=== PATIENT | male | born 1960 | race Caucasian/White ===

== ENCOUNTER 2018-08-23 12:47 | Observation (INO) | payer OTHER ==
--- NOTE | 2018-08-23 14:07 | ED ---
General Adult HPI - General Chief complaint: Syncope Stated complaint: syncope Time Seen by Provider: 08/23/18 13:05 Source: patient, RN notes reviewed Mode of arrival: wheelchair Limitations: physical limitation - History of Present Illness Initial comments: This a 58-year-old male who presents emergency department with past medical history significant for severe sleep apnea and an previous episode of hypercapnia which involved an ICU admission. Patient states at that time he had a syncopal episode. Patient states today he had a syncopal episode. Patient also states he has diabetes hypertension high cholesterol. Patient states he got out of the shower today felt lightheaded and then went today living room to sit down but he did not make it he fell and hit the garbage can on the right side of his chest on the way down. Patient denies hitting his head or neck was watching the episode and agrees did not hit his head or neck. Patient states he has a slight area of tenderness on the right side of his chest but it's only when he palpates that area. Patient denies any chest pain palpitations difficulty breathing or shortness of breath prior to or after the event. Patient states currently he feels at his baseline. Patient denies any abdominal pain patient denies nausea vomiting diarrhea per patient denies any lightheadedness dizziness currently. Patient denies any headache patient denies numbness weakness. - Related Data Home Medications Medication Instructions Recorded Confirmed Albuterol Sulfate [Proair Hfa] 2 puff INHALATION RT-DAILY PRN 08/23/18 08/23/18 Aspirin EC [Ecotrin Low Dose] 81 mg PO DAILY 08/23/18 08/23/18 Cyclobenzaprine [Flexeril] 10 mg PO HS PRN 08/23/18 08/23/18 Enalapril [Vasotec] 20 mg PO BID 08/23/18 08/23/18 Fenofibrate [Lofibra] 160 mg PO DAILY 08/23/18 08/23/18 Fluticasone/Salmeterol [Advair 1 inhalation PO RT-BID 08/23/18 08/23/18 250-50 Diskus] HYDROcodone/APAP 7.5-325MG [[place] 1 tab PO Q6HR PRN 08/23/18 08/23/18 7.5-325] Hydrochlorothiazide [Hydrodiuril] 25 mg PO DAILY 08/23/18 08/23/18 Metoprolol Succinate (ER) [Toprol 100 mg PO HS 08/23/18 08/23/18 Xl] Pentoxifylline 400 mg PO TID PRN 08/23/18 08/23/18 Simvastatin [Zocor] 20 mg PO HS 08/23/18 08/23/18 Tamsulosin [Flomax] 0.4 mg PO DAILY 08/23/18 08/23/18 amLODIPine [Norvasc] 10 mg PO DAILY 08/23/18 08/23/18 diphenhydrAMINE [Benadryl] 50 mg PO DAILY PRN 08/23/18 08/23/18 glipiZIDE [Glucotrol] 5 mg PO DAILY 08/23/18 08/23/18 hydrALAZINE HCL [Apresoline] 50 mg PO DAILY 08/23/18 08/23/18 metFORMIN HCL 1,000 mg PO BID 08/23/18 08/23/18 rOPINIRole HCL [Requip] 1 mg PO HS 08/23/18 08/23/18 Allergies Allergy/AdvReac Type Severity Reaction Status Date / Time No Known Allergies Allergy Verified 08/23/18 13:50 Review of Systems ROS Statement: Those systems with pertinent positive or pertinent negative responses have been documented in the HPI. ROS Other: All systems not noted in ROS Statement are negative. Past Medical History Past Medical History: Asthma, COPD, Diabetes Mellitus, Hyperlipidemia, Hypertension, Prostate Disorder Additional Past Medical History / Comment(s): sleep apnea History of Any Multi-Drug Resistant Organisms: None Reported Additional Past Surgical History / Comment(s): hyrocelectomy Past Psychological History: No Psychological Hx Reported Smoking Status: Former smoker Past Alcohol Use History: Occasional Past Drug Use History: None Reported, Marijuana General Exam - General Exam Comments Initial Comments: GENERAL: Patient is well-developed and well-nourished. Patient is nontoxic and well- hydrated and is in mild distress. ENT: Neck is soft and supple. No significant lymphadenopathy is noted. Oropharynx is clear. Moist mucous membranes. Neck has full range of motion without eliciting any pain. EYES: The sclera were anicteric and conjunctiva were pink and moist. Extraocular movements were intact and pupils were equal round and reactive to light. Eyelids were unremarkable. PULMONARY: Unlabored respirations. Good breath sounds bilaterally. No audible rales rhonchi or wheezing was noted. CARDIOVASCULAR: There is a regular rate and rhythm without any murmurs gallops or rubs. ABDOMEN: Soft and nontender with normal bowel sounds. No palpable organomegaly was noted. There is no palpable pulsatile mass. Patient is morbidly obese. SKIN: Skin is clear with no lesions or rashes and otherwise unremarkable. NEUROLOGIC: Patient is alert and oriented x3. Cranial nerves II through XII are grossly intact. Motor and sensory are also intact. Normal speech, volume and content. Symmetrical smile. MUSCULOSKELETAL: Normal extremities with adequate strength and full range of motion. No lower extremity swelling or edema. No calf tenderness. LYMPHATICS: No significant lymphadenopathy is noted PSYCHIATRIC: Normal psychiatric evaluation. Limitations: physical limitation Course Vital Signs 08/23/18 08/23/18 08/23/18 13:05 14:00 14:11 Temperature 98.1 F Pulse Rate 98 95 Pulse Rate [ 98 Lamp Wirer ] Respiratory 18 12 Rate Blood Pressure 149/87 167/82 Blood Pressure [Left Arm Sitting] Blood Pressure [Left Arm Standing] Blood Pressure 139/81 [Left Arm Supine] O2 Sat by Pulse 94 L 97 Oximetry 08/23/18 08/23/18 08/23/18 14:15 15:30 16:00 Temperature Pulse Rate 92 89 Pulse Rate [ 99 Lamp Wirer ] Respiratory 18 22 Rate Blood Pressure 139/75 148/79 Blood Pressure 147/78 [Left Arm Sitting] Blood Pressure 154/76 [Left Arm Standing] Blood Pressure [Left Arm Supine] O2 Sat by Pulse 95 95 Oximetry 08/23/18 08/23/18 16:30 17:00 Temperature Pulse Rate 98 84 Pulse Rate [ Lamp Wirer ] Respiratory 22 20 Rate Blood Pressure 139/83 138/84 Blood Pressure [Left Arm Sitting] Blood Pressure [Left Arm Standing] Blood Pressure [Left Arm Supine] O2 Sat by Pulse 98 96 Oximetry Medical Decision Making - Medical Decision Making EKG shows a sinus rhythm at a rate of 94 bpm [place] interval is 184 QRS is 144 QT interval 368 QTC is 460. Patient's EKG is of poor quality EKG however there is no obvious signs of ST segment elevation. Patient does have a right bundle tasha block. Chest x-ray shows no acute normalities. I spoke with Dr. Chen because the patient's risk factors and syncopal episode we decided to admit the patient overnight for observation. - Lab Data Result diagrams: 08/23/18 14:00 08/23/18 14:00 Lab Results 08/23/18 08/23/18 08/23/18 Range/Units 14:00 14:00 14:00 WBC 9.0 (3.8-10.6) k/uL RBC 5.45 (4.30-5.90) m/uL Hgb 14.3 (13.0-17.5) gm/dL Hct 44.4 (39.0-53.0) % MCV 81.6 (80.0-100.0) fL MCH 26.2 (25.0-35.0) pg MCHC 32.1 (31.0-37.0) g/dL RDW 13.8 (11.5-15.5) % Plt Count 330 (150-450) k/uL Neutrophils % 76 % Lymphocytes % 14 % Monocytes % 5 % Eosinophils % 3 % Basophils % 0 % Neutrophils # 6.9 (1.3-7.7) k/uL Lymphocytes # 1.3 (1.0-4.8) k/uL Monocytes # 0.4 (0-1.0) k/uL Eosinophils # 0.3 (0-0.7) k/uL Basophils # 0.0 (0-0.2) k/uL PT (9.0-12.0) sec INR (<1.2) APTT (22.0-30.0) sec Sample Site ABG pH (7.35-7.45) ABG pCO2 (35-45) mmHg ABG pO2 (83-108) mmHg ABG HCO3 (21-25) mmol/L ABG Total CO2 (19-24) mmol/L ABG O2 Saturation (94-97) % ABG Base Excess mmol/L Luisito Test FiO2 % Sodium 140 (137-145) mmol/L Potassium 3.8 (3.5-5.1) mmol/L Chloride 100 (98-107) mmol/L Carbon Dioxide 29 (22-30) mmol/L Anion Gap 11 mmol/L BUN 17 (9-20) mg/dL Creatinine 0.79 (0.66-1.25) mg/dL Est GFR (CKD-EPI)AfAm >90 (>60 ml/min/1.73 sqM) Est GFR (CKD-EPI)NonAf >90 (>60 ml/min/1.73 sqM) Glucose 167 H (74-99) mg/dL Calcium 9.4 (8.4-10.2) mg/dL Magnesium 1.7 (1.6-2.3) mg/dL Total Bilirubin 0.5 (0.2-1.3) mg/dL AST 23 (17-59) U/L ALT 40 (21-72) U/L Alkaline Phosphatase 50 (38-126) U/L Total Creatine Kinase 61 (55-170) U/L CK-MB (CK-2) 0.3 (0.0-2.4) ng/mL CK-MB (CK-2) Rel Index 0.5 Troponin I <0.012 (0.000-0.034) ng/mL Total Protein 6.8 (6.3-8.2) g/dL Albumin 4.1 (3.5-5.0) g/dL Urine Color Urine Appearance (Clear) Urine pH (5.0-8.0) Ur Specific [place] (1.001-1.035) Urine Protein (Negative) Urine Glucose (UA) (Negative) Urine Ketones (Negative) Urine Blood (Negative) Urine Nitrite (Negative) Urine Bilirubin (Negative) Urine Urobilinogen (<2.0) mg/dL Ur Leukocyte Esterase (Negative) 08/23/18 08/23/18 08/23/18 Range/Units 14:00 14:00 14:48 WBC (3.8-10.6) k/uL RBC (4.30-5.90) m/uL Hgb (13.0-17.5) gm/dL Hct (39.0-53.0) % MCV (80.0-100.0) fL MCH (25.0-35.0) pg MCHC (31.0-37.0) g/dL RDW (11.5-15.5) % Plt Count (150-450) k/uL Neutrophils % % Lymphocytes % % Monocytes % % Eosinophils % % Basophils % % Neutrophils # (1.3-7.7) k/uL Lymphocytes # (1.0-4.8) k/uL Monocytes # (0-1.0) k/uL Eosinophils # (0-0.7) k/uL Basophils # (0-0.2) k/uL PT 9.5 (9.0-12.0) sec INR 0.9 (<1.2) APTT 23.1 (22.0-30.0) sec Sample Site RRA ABG pH 7.40 (7.35-7.45) ABG pCO2 51 H (35-45) mmHg ABG pO2 94 (83-108) mmHg ABG HCO3 32 H (21-25) mmol/L ABG Total CO2 33 H (19-24) mmol/L ABG O2 Saturation 96.3 (94-97) % ABG Base Excess 6.9 mmol/L Luisito Test Yes FiO2 32 % Sodium (137-145) mmol/L Potassium (3.5-5.1) mmol/L Chloride (98-107) mmol/L Carbon Dioxide (22-30) mmol/L Anion Gap mmol/L BUN (9-20) mg/dL Creatinine (0.66-1.25) mg/dL Est GFR (CKD-EPI)AfAm (>60 ml/min/1.73 sqM) Est GFR (CKD-EPI)NonAf (>60 ml/min/1.73 sqM) Glucose (74-99) mg/dL Calcium (8.4-10.2) mg/dL Magnesium (1.6-2.3) mg/dL Total Bilirubin (0.2-1.3) mg/dL AST (17-59) U/L ALT (21-72) U/L Alkaline Phosphatase (38-126) U/L Total Creatine Kinase (55-170) U/L CK-MB (CK-2) (0.0-2.4) ng/mL CK-MB (CK-2) Rel Index Troponin I (0.000-0.034) ng/mL Total Protein (6.3-8.2) g/dL Albumin (3.5-5.0) g/dL Urine Color Yellow Urine Appearance Clear (Clear) Urine pH 5.5 (5.0-8.0) Ur Specific [place] 1.014 (1.001-1.035) Urine Protein Negative (Negative) Urine Glucose (UA) Negative (Negative) Urine Ketones Negative (Negative) Urine Blood Negative (Negative) Urine Nitrite Negative (Negative) Urine Bilirubin Negative (Negative) Urine Urobilinogen <2.0 (<2.0) mg/dL Ur Leukocyte Esterase Negative (Negative) Disposition Clinical Impression: Syncope and collapse Disposition: ADMITTED IP TO THIS HOSP Referrals: Sead Schneider MD [Primary Care Provider] - 1-2 days Time of Disposition: 17:55
[2018-08-23 14:18] LABS: Basophils % (A) 0 %; Eosinophils # (A) 0.3 k/uL (0-0.7); Eosinophils % (A) 3 %; HCT 44.4 % (39.0-53.0); HGB 14.3 gm/dL (13.0-17.5); Lymphocytes # (A) 1.3 k/uL (1.0-4.8); Lymphocytes % (A) 14 %; MCH 26.2 pg (25.0-35.0); MCHC 32.1 g/dL (31.0-37.0); MCV 81.6 fL (80.0-100.0); Mean Platelet Volume 5.6; Monocytes # (A) 0.4 k/uL (0-1.0); Monocytes % (A) 5 %; Neutrophils # (A) 6.9 k/uL (1.3-7.7); Neutrophils % (A) 76 %; Platelet Count 330 k/uL (150-450); RBC 5.45 m/uL (4.30-5.90); RDW 13.8 % (11.5-15.5)
[2018-08-23 14:28] LABS: Appearance,Urine Clear (Clear); Bilirubin,Urine Negative (Negative); Blood,Urine Negative (Negative); Color,Urine Yellow; Glucose,Urine (UA) Negative (Negative); Ketones,Urine Negative (Negative); Leukocyte Esterase,Urine Negative (Negative); Nitrite,Urine Negative (Negative); PH, Urine 5.5 (5.0-8.0); Protein,Urine Negative (Negative); Specific Gravity,Urine 1.014 (1.001-1.035); Urobilinogen,Urine <2.0 mg/dL (<2.0)
[2018-08-23 14:29] LABS: ALT 40 U/L (21-72); AST 23 U/L (17-59); Albumin 4.1 g/dL (3.5-5.0); Alkaline Phosphatase 50 U/L (38-126); Anion Gap 11 mmol/L; Blood Urea Nitrogen 17 mg/dL (9-20); Calcium 9.4 mg/dL (8.4-10.2); Carbon Dioxide 29 mmol/L (22-30); Chloride 100 mmol/L (98-107); Glucose 167 mg/dL (74-99); Magnesium 1.7 mg/dL (1.6-2.3); Potassium 3.8 mmol/L (3.5-5.1); Sodium 140 mmol/L (137-145); Total Bilirubin 0.5 mg/dL (0.2-1.3); Total Protein 6.8 g/dL (6.3-8.2)
[2018-08-23 14:34] LABS: INR 0.9 (<1.2); Partial Thromboplastin Time 23.1 sec (22.0-30.0); Prothrombin Time 9.5 sec (9.0-12.0)
--- NOTE | 2018-08-23 14:49 | XR ---
EXAMINATION TYPE: XR chest 2V DATE OF EXAM: 08/23/2018 COMPARISON: NONE HISTORY: Syncope TECHNIQUE: Frontal and lateral views of the chest are obtained. FINDINGS: Patient is rotated. There are cardiac leads. Eventration of the right hemidiaphragm noted. There is no focal air space opacity, pleural effusion, or pneumothorax seen. The cardiac silhouette size is within normal limits. The osseous structures are intact. IMPRESSION: No acute cardiopulmonary process.
[2018-08-23 14:56] LABS: ABG Base Excess 6.9 mmol/L; ABG HCO3 32 mmol/L (21-25); ABG Oxygen Saturation 96.3 % (94-97); ABG PCO2 51 mmHg (35-45); ABG PO2 94 mmHg (83-108); ABG TCO2 33 mmol/L (19-24)
[2018-08-23 15:22] LABS: Creatine Kinase 61 U/L (55-170)
[2018-08-23 15:35] LABS: Creatine Kinase MB 0.3 ng/mL (0.0-2.4); Troponin I <0.012 ng/mL (0.000-0.034)
[2018-08-23] MEDS ORDERED: NITROGLYCERIN SL TABS 0.4 MG TAB SUBLINGUAL PRN (17:56)
[2018-08-23 20:45] LABS: Glucose,Whole Blood 160 mg/dL (75-99)
[2018-08-23 21:47] LABS: Creatine Kinase 72 U/L (55-170)
[2018-08-23] MEDS ORDERED: CYCLOBENZAPRINE 10 MG TAB PO PRN (21:55)
[2018-08-23] MEDS ORDERED: diphenhydrAMINE 25 MG CAP PO PRN (21:55)
[2018-08-23] MEDS ORDERED: PENTOXIFYLLINE 400 MG TABLET.ER PO PRN (21:55)
[2018-08-23] MEDS ORDERED: ALBUTEROL NEBULIZED 2.5 MG/3 ML INHALATION PRN (21:55)
[2018-08-23] MEDS ORDERED: HYDROcodone/APAP 7.5-325MG 1 EACH TAB PO PRN (21:55)
[2018-08-23 22:00] LABS: Creatine Kinase MB 0.3 ng/mL (0.0-2.4); Troponin I <0.012 ng/mL (0.000-0.034)
[2018-08-23] MEDS: METOPROLOL SUCCINATE (ER) 50 MG TAB.ER.24H PO SCH (23:43)
[2018-08-23] MEDS: LISINOPRIL 20 MG TAB PO SCH (23:43)
[2018-08-23] MEDS: ATORVASTATIN 10 MG TAB PO SCH (23:43)
[2018-08-24 02:42] LABS: Creatine Kinase 57 U/L (55-170)
[2018-08-24 02:56] LABS: Creatine Kinase MB <0.2 ng/mL (0.0-2.4); Troponin I <0.012 ng/mL (0.000-0.034)
[2018-08-24 04:11] LABS: Hemoglobin A1C 7.5 % (4.0-6.0)
[2018-08-24 06:27] LABS: Basophils % (A) 1 %; Eosinophils # (A) 0.4 k/uL (0-0.7); Eosinophils % (A) 5 %; HCT 42.9 % (39.0-53.0); HGB 13.9 gm/dL (13.0-17.5); Lymphocytes # (A) 1.4 k/uL (1.0-4.8); Lymphocytes % (A) 19 %; MCH 26.5 pg (25.0-35.0); MCHC 32.3 g/dL (31.0-37.0); MCV 82.2 fL (80.0-100.0); Mean Platelet Volume 5.5; Monocytes # (A) 0.5 k/uL (0-1.0); Monocytes % (A) 7 %; Neutrophils % (A) 67 %; Platelet Count 342 k/uL (150-450); RBC 5.22 m/uL (4.30-5.90); RDW 13.9 % (11.5-15.5); WBC 7.5 k/uL (3.8-10.6)
[2018-08-24 06:32] LABS: Anion Gap 8 mmol/L; Blood Urea Nitrogen 20 mg/dL (9-20); Calcium 9.2 mg/dL (8.4-10.2); Carbon Dioxide 28 mmol/L (22-30); Chloride 102 mmol/L (98-107); Cholesterol 139 mg/dL (<200); Glucose 133 mg/dL (74-99); HDL Cholesterol 43 mg/dL (40-60); LDL Cholesterol,Calculated 71 mg/dL (0-99); Potassium 4.2 mmol/L (3.5-5.1); Sodium 138 mmol/L (137-145); Triglycerides 123 mg/dL (<150)
[2018-08-24] MEDS: SYMBICORT 80-4.5 MCG INHALER INHALATION SCH ×2 (07:29→18:48)
[2018-08-24 07:55] LABS: Glucose,Whole Blood 129 mg/dL (75-99)
--- NOTE | 2018-08-24 09:23 | HP ---
HISTORY AND PHYSICAL DATE OF SERVICE: 08/23/2018 CHIEF COMPLAINTS: Syncope. HISTORY OF PRESENT ILLNESS: This is a 58-year-old gentleman with a past medical history of multiple medical problems including sleep apnea, history of asthma, COPD, diabetes, hypertension, hyperlipidemia, history of prostate disorder being followed by Dr. Seda Schneider in the outpatient setting, also seeing Dr. Cordova. Patient uses CPAP at 10 at night. The patient apparently had a sleep study previously. The patient is not feeling well over the past several days. Patient is having weakness, tiredness and patient also had a previous admission to ICU apparently because of escalated sleep apnea. Today, the patient had a shower guarded shower which is not hot and patient felt lightheaded, went down in the living room and the patient was taken to [facility], admitted for further evaluation and treatment. There is no history of any fever, rigors. history of seizures. No history of any chest pain, palpitations, hematochezia or melena. The patient also complaining of some chest discomfort. PAST MEDICAL HISTORY: Asthma, COPD, diabetes, hypertension, hyperlipidemia, prostate disorder, sleep apnea. HOME MEDICATIONS: 1. Hydralazine 50 mg p.o. daily. 2. HydroDIURIL 25 mg daily. 3. Glucotrol 5 mg. p.o. daily. 4. Norvasc 10 mg. 5. Lofibra 160 mg p.o. daily. 6. Lasix 20 mg b.i.d. 7. Ecotrin 81 mg daily. 8. Advair 250 one puff b.i.d. 9. Flexeril 10 mg q.h.s. 10.ProAir 2 puffs daily p.r.n. 11.Requip 1 mg q.h.s. 12.Pentoxifylline 400 mg t.i.d. p.r.n. 13.Metformin 1000 mg p.o. b.i.d. 14.Benadryl 50 mg daily p.r.n. 15.Flomax 0.4 daily. 16.Zocor 20 mg q.h.s. 17.Toprol-XL 200 mg daily. 18.[place] 7.5 q.6 p.r.n. ALLERGIES: None. FAMILY HISTORY: History of cancer, eye disorder, skin cancer. SOCIAL HISTORY: Alcohol, THC. Previous history of smoking. REVIEW OF SYSTEMS: ENT: No diminished hearing, diminished vision. CARDIOVASCULAR SYSTEM: As mentioned earlier. RESPIRATORY: As mentioned earlier. GI: No nausea. : No dysuria. NERVOUS SYSTEM: No numbness or weakness. ALLERGY/IMMUNOLOGY: No asthma or hayfever. MUSCULOSKELETAL: As mentioned earlier. HEMATOLOGY: No history of anemia. ENDOCRINE: Diabetes. CONSTITUTIONAL: As mentioned earlier. RHEUMATOLOGY: Negative. HEMATOLOGY: Negative. PSYCHIATRY: As mentioned earlier. PHYSICAL EXAM: Patient is alert and oriented x3. Pulse 84, blood pressure 168/89, respiration 18, temperature 98.2, pulse ox 98% on room air. HEENT: Conjunctivae normal, oral mucosa moist. CARDIOVASCULAR: S1, S2, muffled. RESPIRATORY: Breath sounds diminished in the bases, a few scattered rhonchi. No crackles. ABDOMEN: Soft, nontender, obese. No mass palpable. LEGS: No edema. No swelling. NERVOUS SYSTEM: Higher functions as mentioned earlier, moves all 4 limbs, no focal motor deficits. LYMPHATICS: No lymph node enlargement in the neck or axillae. SKIN: No ulcer, rash, no bleeding. JOINTS: No active deforming arthropathy. LABS: CBC within normal limits. ABGs, pH of 7.4 and glucose 160. ASSESSMENT: 1. Syncope for evaluation, rule out cardiac arrhythmia. 2. Sleep apnea on CPAP. 3. History of asthma, chronic obstructive pulmonary disease. 4. Diabetes mellitus type 2. 5. Hypertension. 6. Hyperlipidemia. 7. Prostate disorder. 8. History of herniated disc. 9. History of hernia repair. 10.History of worsening nicotine dependence. 11.History of THC. 12.Obesity with body mass index 45.6. RECOMMENDATION: In this 58-year-old gentleman who presented with multiple complex medical issues, will monitor the patient closely, continue with the current management and symptomatic treatment. I would recommend consult with Dr. Hawk and as well as Cardiology. Otherwise, will resume the home medications. Patient has history as mentioned earlier. The prognosis guarded because of multiple complex medical issues. Further recommendations to follow. A copy will be forwarded to Dr. Seda Schneider who is the primary physician. MMODL / IJN: [id number] /
[2018-08-24] MEDS: ASPIRIN 325 MG TAB PO SCH (10:57)
[2018-08-24] MEDS: TAMSULOSIN 0.4 MG CAP.ER.24H PO SCH (10:57)
[2018-08-24] MEDS: INSULIN ASPART (NovoLOG) 100 UNIT/ML VIAL SQ SCH ×4 (10:58→20:27)
[2018-08-24] MEDS: glipiZIDE 5 MG TAB PO SCH (10:58)
[2018-08-24] MEDS: amLODIPine 10 MG TAB PO SCH (10:58)
[2018-08-24] MEDS: HYDROCHLOROTHIAZIDE 25 MG TAB PO SCH (10:58)
[2018-08-24] MEDS: LISINOPRIL 20 MG TAB PO SCH ×2 (10:58→20:27)
[2018-08-24] MEDS: FENOFIBRATE 160 MG TAB PO SCH (10:58)
[2018-08-24] MEDS: hydrALAZINE HCL 50 MG TAB PO SCH (10:58)
[2018-08-24] MEDS: metFORMIN 500 MG TAB PO SCH ×2 (11:04→20:27)
[2018-08-24 11:42] LABS: Glucose,Whole Blood 138 mg/dL (75-99)
--- NOTE | 2018-08-24 12:15 | CONS ---
CONSULTATION Mr. Marquez is a 58-year-old gentleman who is seen for evaluation of syncope. This patient gives a history that he has a history of severe sleep apnea and had a prior episode of hypercapnia which involves ICU admission. The patient gives a history that he went to the shower and after he came out he felt lightheaded. He went to the living room and tried to sit down but did not make it and he fell and he hit the garbage can. The patient did not have any nausea, vomiting, or palpitations. Subsequently patient was brought to the emergency room. In the emergency room, patient's vital signs were stable. The patient's initial EKG shows right bundle branch block pattern. No orthostatic hypotension is noted. Cardiac enzymes are negative so far. There is no prior history of myocardial infarction. He has a history of hypertension and hyperlipidemia. PAST MEDICAL HISTORY: Past medical history includes history of COPD, diabetes, hyperlipidemia, hypertension, and history of prostate disorder. HOME MEDICATIONS: Patient home medications include Vasotec 20 mg b.i.d., Lofibra 160 mg daily, Advair, hydrochlorothiazide 25 mg daily, pentoxifylline 400 mg t.i.d., Zocor 20 mg daily, hydralazine 50 mg daily, metformin 1000 mg b.i.d. and Requip 1 mg at bedtime and Benadryl p.r.n. REVIEW OF THE SYSTEM: Review of the systems is otherwise unremarkable. PHYSICAL EXAMINATION: Physical examination at present reveals a 58-year-old obesely built gentleman who does not appear to be in any acute distress. In the emergency room, patient's blood pressure was 140/87 mmHg. His blood pressure now is 143/73 mmHg. Head/ENT examination is negative. Neck is supple. There is no increase in jugular venous pressure. Both the carotid pulses are felt. There is no bruit. Chest is symmetrical. HEART: The PMI is not felt. First and second heart sounds are heard. The second heart sound is split. Lungs are clinically clear to auscultation and percussion. Abdomen is soft. Liver and spleen are not enlarged. Bowel sounds are heard. EXTREMITIES: There is 1+ trace edema. The patient's PTT was normal. Arterial blood gases shows pH of 7.40, pCO2 is 51, and pO2 is 93. Troponins are negative. Patient's cholesterol is 139 with LDL level of 71. IMPRESSION: Syncope, exact etiology undetermined. Patient has evidence of underlying right bundle branch block, intermittent high-degree block needs to be excluded. So far no dysrhythmias are noted. We will monitor the patient for 24 hours. Echo and Doppler study will be done. If no arrhythmias are noted, patient can be discharged home and we will make arrangements for the patient to have a loop monitor as an outpatient to document any serious arrhythmia. MMODL / IJN: [id number] /
--- NOTE | 2018-08-24 12:45 | ECHOF ---
Referral Reason:syncope MEASUREMENTS -------- HEIGHT: 172.7 cm WEIGHT: 136.1 kg BP: RVIDd: 3.5 cm (< 3.3) IVSd: 1.4 cm (0.6 - 1.1) LVIDd: 4.3 cm (3.9 - 5.3) LVPWd: 1.8 cm (0.6 - 1.1) IVSs: 1.9 cm LVIDs: 2.9 cm LVPWs: 2.5 cm Ao Diam: 3.4 cm (2.0 - 3.7) AV Cusp: 2.5 cm (1.5 - 2.6) LA Diam: 3.2 cm (2.7 - 3.8) MV EXCURSION: 14.317 mm (> 18.000) MV EF SLOPE: 68 mm/s (70 - 150) EPSS: 0.8 cm MV E Jason: 0.85 m/s MV DecT: 155 ms MV A Jason: 1.05 m/s MV E/A Ratio: 0.80 RAP: 5.00 mmHg RVSP: 7.91 mmHg FINDINGS -------- Sinus rhythm. This was a technically difficult study with suboptimal views. The left ventricular size is normal. There is moderate concentric left ventricular hypertrophy. O verall left ventricular systolic function is normal with, an EF between 55 - 60 %. The right ventricle is mildly enlarged. The left atrium is normal in size. The right atrium is normal in size. Lumason used The aortic valve is trileaflet and appears structurally normal. The mitral valve leaflets are mildly thickened. Mild mitral annular calcification present. Mild m itral regurgitation is present. Mild tricuspid regurgitation present. The right ventricular systolic pressure, as measured by Doppl er, is 7.91mmHg. Pulmonic valve appears structurally normal. The aortic root size is normal. IVC Not well visulized. The pericardium is normal. CONCLUSIONS -------- 1. Sinus rhythm. 2. This was a technically difficult study with suboptimal views. 3. The left ventricular size is normal. 4. There is moderate concentric left ventricular hypertrophy. 5. Overall left ventricular systolic function is normal with, an EF between 55 - 60 %. 6. The right ventricle is mildly enlarged. 7. The left atrium is normal in size. 8. The right atrium is normal in size. 9. Lumason used 10. The aortic valve is trileaflet and appears structurally normal. 11. The mitral valve leaflets are mildly thickened. 12. Mild mitral annular calcification present. 13. Mild mitral regurgitation is present. 14. Mild tricuspid regurgitation present. 15. The right ventricular systolic pressure, as measured by Doppler, is 7.91mmHg. 16. Pulmonic valve appears structurally normal. 17. The aortic root size is normal. 18. IVC Not well visulized. 19. The pericardium is normal. DENTAL FLOSS PACKER: Vandana De Jesus RDCS
--- NOTE | 2018-08-24 14:53 | P.CNPUL ---
History of Present Illness Consult date: 08/24/18 Requesting physician: Nai Mcmahan Reason for consult: other (syncope) Chief complaint: passing out History of present illness: this is a 58-year-old white male with history of asthma, obstructive sleep apnea syndrome, benign essential hypertension, hypercholesterolemia, type 2 diabetes,dyslipidemia,restless leg syndrome,patient had a sudden episode of syncope/passing out as he was walking out of the bathroom yesterday. No warning signs, no chest pain, no palpitations, no headache, no blurred vision, no dizziness, patient walked out of the bathroom, felt lightheaded, and apparently fell down in the living room. Hit the garbage can on the right side of the chest, no other injuries. Loss of consciousness was very brief supposedly less than a minute. Patient denies any chest pain denies any shortness of breath, and he had actually no active pulmonary symptoms except for occasional cough and congestion related to his underlying asthma. Patient had no loss of control of bowel or urine. And according to the there was no evidence of any seizure activity. Patient was seen in the ER,workup so far included CBC and basic metabolic profile which came back relatively normal.chest x-ray was normal.EKG showed sinus rhythm and right bundle branch block pattern.cardiac panel was normalechocardiogram was basically normal and no evidence of LV dysfunction, no evidence of pulmonary hypertension, no evidence of significant valvular heart disease.seen by cardiology, raised the patient concern about intermittent high degree block, recommended 24 hour monitor and if remains normal planning a loop monitor on outpatient basis. Again from the pulmonary perspective patient has no active pulmonary symptoms whatsoever at this point. Patient does have occasional cough which is chronic. Review of Systems 14 point review of systems were obtained, please refer to HPI, otherwise remaining systems are negative. Past Medical History Past Medical History: Asthma, COPD, Diabetes Mellitus, Hyperlipidemia, Hypertension, Prostate Disorder, Sleep Apnea/CPAP/BIPAP Additional Past Medical History / Comment(s): sleep apnea uses cpap machine, herniated disc-has had injections, past stress test pt stated was wnl, had a pne vaccine approx 3 years ago , check writer unable to verify date at time of this admit. History of Any Multi-Drug Resistant Organisms: None Reported Past Surgical History: Hernia Repair Additional Past Surgical History / Comment(s): hydrocelectomy, vasectomy, colonoscopy/polypectomy-benign. umbilical hernia repair, injections for herniated disc. Past Anesthesia/Blood Transfusion Reactions: No Reported Reaction Additional Past Anesthesia/Blood Transfusion Reaction / Comment(s): clausterphobia. pt stated has never had a blood transfusion Past Psychological History: No Psychological Hx Reported Smoking Status: Former smoker Past Alcohol Use History: Occasional Additional Past Alcohol Use History / Comment(s): approx 2008 briefly smoked the occ cigar. pt has a rare drink Past Drug Use History: Marijuana Additional Drug Use History / Comment(s): approx every 3 months - Past Family History Mother Family Medical History: Cancer, Eye Disorder Additional Family Medical History / Comment(s): skin cancer, macular degeneration Father Family Medical History: Coronary Artery Disease (CAD), Dementia Additional Family Medical History / Comment(s): cabg, stents, uti/sepsis Medications and Allergies Home Medications Medication Instructions Recorded Confirmed Type Albuterol Sulfate [Proair Hfa] 2 puff INHALATION RT-DAILY PRN 08/23/18 08/23/18 History Aspirin EC [Ecotrin Low Dose] 81 mg PO DAILY 08/23/18 08/23/18 History Cyclobenzaprine [Flexeril] 10 mg PO HS PRN 08/23/18 08/23/18 History Enalapril [Vasotec] 20 mg PO BID 08/23/18 08/23/18 History Fenofibrate [Lofibra] 160 mg PO DAILY 08/23/18 08/23/18 History Fluticasone/Salmeterol [Advair 1 inhalation PO RT-BID 08/23/18 08/23/18 History 250-50 Diskus] HYDROcodone/APAP 7.5-325MG [Gordon 1 tab PO Q6HR PRN 08/23/18 08/23/18 History 7.5-325] Hydrochlorothiazide [Hydrodiuril] 25 mg PO DAILY 08/23/18 08/23/18 History Metoprolol Succinate (ER) [Toprol 100 mg PO HS 08/23/18 08/23/18 History Xl] Pentoxifylline 400 mg PO TID PRN 08/23/18 08/23/18 History Simvastatin [Zocor] 20 mg PO HS 08/23/18 08/23/18 History Tamsulosin [Flomax] 0.4 mg PO DAILY 08/23/18 08/23/18 History amLODIPine [Norvasc] 10 mg PO DAILY 08/23/18 08/23/18 History diphenhydrAMINE [Benadryl] 50 mg PO DAILY PRN 08/23/18 08/23/18 History glipiZIDE [Glucotrol] 5 mg PO DAILY 08/23/18 08/23/18 History hydrALAZINE HCL [Apresoline] 50 mg PO DAILY 08/23/18 08/23/18 History metFORMIN HCL 1,000 mg PO BID 08/23/18 08/23/18 History rOPINIRole HCL [Requip] 1 mg PO HS 08/23/18 08/23/18 History Allergies Allergy/AdvReac Type Severity Reaction Status Date / Time No Known Allergies Allergy Verified 08/23/18 13:50 Physical Exam Vitals: Vital Signs Temp Pulse Pulse Pulse Pulse Pulse Pulse 08/24/18 11:57 98.2 F 80 76 77 08/24/18 07:40 98.2 F 76 08/24/18 07:28 84 08/24/18 07:12 80 08/24/18 04:00 80 77 76 08/24/18 03:30 08/24/18 00:00 08/23/18 23:40 98.6 F 84 08/23/18 20:00 08/23/18 18:50 98.2 F 83 08/23/18 18:00 97.8 F 79 08/23/18 17:30 81 08/23/18 17:00 84 08/23/18 16:30 98 08/23/18 16:00 89 08/23/18 15:30 92 Resp BP BP BP BP BP Pulse Ox 08/24/18 11:57 18 128/78 125/76 147/80 93 L 08/24/18 07:40 18 143/73 95 08/24/18 07:28 08/24/18 07:12 08/24/18 04:00 18 166/94 150/77 170/103 93 L 08/24/18 03:30 18 08/24/18 00:00 18 08/23/18 23:40 18 168/89 92 L 08/23/18 20:00 18 08/23/18 18:50 18 179/87 96 08/23/18 18:00 18 152/74 95 08/23/18 17:30 150/79 95 08/23/18 17:00 20 138/84 96 08/23/18 16:30 22 139/83 98 08/23/18 16:00 22 148/79 95 08/23/18 15:30 18 139/75 95 Intake and Output 08/23/18 08/24/18 08/24/18 22:59 06:59 14:59 Intake Total 218 Balance 218 Intake: Oral 118 Other 100 Other: # Voids 2 Physical Exam: Revealed 58-year-old white male in no distress.on room air. Head: Atraumatic, normocephalic. HEENT:[Neck is supple.] [No neck masses.] [No thyromegaly.] [No JVD.]PERRLA, EOMI, no icterus, moist mucous membranes, Mallampati class III. Chest: [Clear throughout, no crackles, no rhonchi, no wheezes.]minimal tenderness over the anterior chest wall in the right parasternal area. Cardiac Exam: [Normal S1 and S2, no S3 gallop, no murmur.] Abdomen: [Soft, nontender, no megaly, no rebound, no guarding, normal bowel sounds.] Extremities: [No clubbing, no edema, no cyanosis.] Neurological Exam: [No focal neurologic deficit.]alert oriented 3. Psychiatric: Normal mood, affect and mental status examination. Skin: No rashes Lymphatics: No lymphadenopathy was appreciated Results - Laboratory Findings CBC and BMP: 08/24/18 06:10 08/24/18 06:10 ABG ABG pH 7.40 (7.35-7.45) 08/23/18 14:48 ABG pCO2 51 mmHg (35-45) H 08/23/18 14:48 ABG pO2 94 mmHg (83-108) 08/23/18 14:48 ABG O2 Saturation 96.3 % (94-97) 08/23/18 14:48 PT/INR, D-dimer PT 9.5 sec (9.0-12.0) 08/23/18 14:00 INR 0.9 (<1.2) 08/23/18 14:00 Abnormal lab findings: Abnormal Labs 08/23/18 08/23/18 08/23/18 14:00 14:48 20:30 ABG pCO2 51 H ABG HCO3 32 H ABG Total CO2 33 H Glucose 167 H POC Glucose (mg/dL) 160 H Hemoglobin A1c 08/23/18 08/24/18 08/24/18 20:57 06:10 07:53 ABG pCO2 ABG HCO3 ABG Total CO2 Glucose 133 H POC Glucose (mg/dL) 129 H Hemoglobin A1c 7.5 H 08/24/18 11:41 ABG pCO2 ABG HCO3 ABG Total CO2 Glucose POC Glucose (mg/dL) 138 H Hemoglobin A1c - Diagnostic Findings Chest x-ray: image reviewed (normal.) Assessment and Plan Assessment: impression: 1 syncopal episode, not related to any specific pulmonary etiology. 2 obstructive sleep apnea syndrome patient is using his own BiPAP. 3 mild intermittent asthma, presently asymptomatic. 4remote marijuana smoking history otherwise negative smoking history at present. 5 type 2 diabetes 6 benign essential hypertension 7 dyslipidemia 8 remote history of syncope a few years back, similar presentation, and workup at that time was negative. Recommendation: Agree with the present treatment plan as per cardiology and admitting physician, patient is to continue his BiPAP as used at home, continue bronchodilators as used at home, agree with monitoring the patient for the next 24 hours, and consider 30 day event monitor on outpatient basis. Will follow on when necessary basis Time with Patient: Greater than 30
--- NOTE | 2018-08-24 16:12 | PN ---
PROGRESS NOTE DATE OF SERVICE: 08/24/2018 This 58-year-old gentleman who was admitted with syncope is being evaluated by Cardiology and Pulmonology. A 2D echo with Doppler was done today which showed ejection fraction 50-60 percent and no other significant valvular abnormalities. Cardiology, Dr. Rivers has seen the patient and recommended to continue the monitoring and possibly outpatient loop monitoring as well. Pulmonary Dr. Hawk recommends to still continue with CPAP and continue the bronchodilators and event monitoring. No chest pain. No palpitations. No fever. EXAM: Alert and oriented times three. Pulse 80. Blood pressure 128/78. Respiration 17, temperature 98.2, pulse ox 98% on 2 L. No orthostatic changes. HEENT: Conjunctivae normal. Neck: No jugular venous distention. CARDIOVASCULAR: S1, S2 normal. RESPIRATORY: Breath sounds diminished in the bases. A few scattered rhonchi. Abdomen is soft, obese. Nontender. Central nervous system: No focal deficits. LABORATORY DATA: CBC and BMP normal. Accu-Cheks 133, 129. ASSESSMENT: 1. Syncope for evaluation of undetermined etiology. Possibly rule out cardiac arrhythmia. 2. Sleep apnea on CPAP. 3. History of asthma, chronic obstructive pulmonary disease. 4. Diabetes mellitus type 2. 5. Hypertension. 6. Hyperlipidemia. 7. Prostate disorder. 8. History of herniated disc. 9. History of hernia repair. 10.History of previous nicotine dependence. 11.History of THC. 12.Obesity with body mass index of 45.6. RECOMMENDATIONS AND DISCUSSION: This 58-year-old gentleman who presented with multiple complex medical issues. We will monitor the patient closely. Continue telemetry. Increase ambulation. Closely follow with multiple consultants. Further recommendations to follow. Possible outpatient loop recorder. MMODL / IJN: [id number] /
[2018-08-24 16:38] LABS: Glucose,Whole Blood 70 mg/dL (75-99)
[2018-08-24 19:54] LABS: Glucose,Whole Blood 178 mg/dL (75-99)
[2018-08-24] MEDS: ATORVASTATIN 10 MG TAB PO SCH (20:27)
[2018-08-24] MEDS: METOPROLOL SUCCINATE (ER) 50 MG TAB.ER.24H PO SCH (20:27)
[2018-08-25 06:47] LABS: Glucose,Whole Blood 150 mg/dL (75-99)
[2018-08-25 07:23] LABS: Basophils # (A) 0.1 k/uL (0-0.2); Basophils % (A) 1 %; Eosinophils # (A) 0.4 k/uL (0-0.7); Eosinophils % (A) 5 %; HCT 41.7 % (39.0-53.0); HGB 13.5 gm/dL (13.0-17.5); Lymphocytes # (A) 1.4 k/uL (1.0-4.8); Lymphocytes % (A) 21 %; MCH 26.9 pg (25.0-35.0); MCHC 32.3 g/dL (31.0-37.0); MCV 83.1 fL (80.0-100.0); Mean Platelet Volume 5.8; Monocytes # (A) 0.4 k/uL (0-1.0); Monocytes % (A) 6 %; Neutrophils # (A) 4.3 k/uL (1.3-7.7); Neutrophils % (A) 65 %; Platelet Count 289 k/uL (150-450); RBC 5.02 m/uL (4.30-5.90); RDW 13.9 % (11.5-15.5); WBC 6.6 k/uL (3.8-10.6)
[2018-08-25] MEDS: SYMBICORT 80-4.5 MCG INHALER INHALATION SCH (07:27)
[2018-08-25 07:41] LABS: Anion Gap 8 mmol/L; Blood Urea Nitrogen 23 mg/dL (9-20); Calcium 9.2 mg/dL (8.4-10.2); Carbon Dioxide 29 mmol/L (22-30); Chloride 101 mmol/L (98-107); Glucose 157 mg/dL (74-99); Potassium 4.4 mmol/L (3.5-5.1); Sodium 138 mmol/L (137-145)
[2018-08-25] MEDS: amLODIPine 10 MG TAB PO SCH (07:55)
[2018-08-25] MEDS: metFORMIN 500 MG TAB PO SCH (07:55)
[2018-08-25] MEDS: ASPIRIN 325 MG TAB PO SCH (07:55)
[2018-08-25] MEDS: LISINOPRIL 20 MG TAB PO SCH (07:55)
[2018-08-25] MEDS: hydrALAZINE HCL 50 MG TAB PO SCH (07:56)
[2018-08-25] MEDS: HYDROCHLOROTHIAZIDE 25 MG TAB PO SCH (07:56)
[2018-08-25] MEDS: glipiZIDE 5 MG TAB PO SCH (07:56)
[2018-08-25] MEDS: FENOFIBRATE 160 MG TAB PO SCH (07:56)
[2018-08-25] MEDS: TAMSULOSIN 0.4 MG CAP.ER.24H PO SCH (07:56)
[2018-08-25] MEDS: INSULIN ASPART (NovoLOG) 100 UNIT/ML VIAL SQ SCH ×2 (07:56→12:06)
--- NOTE | 2018-08-25 11:22 | PN ---
PROGRESS NOTE This patient was admitted with syncope. The patient is doing well. His vital signs remained stable. No dysrhythmias are noted. The patient's echocardiogram was normal. Blood pressure is 126/78 mmHg. First and second heart sounds are heard. Lungs are clinically clear to auscultation and percussion. The patient can be discharged home. I will see the patient in 2-3 weeks. We will make arrangements for the loop monitor as an outpatient. MMODL / IJN: [id number] /
[2018-08-25 11:34] LABS: Glucose,Whole Blood 61 mg/dL (75-99)
[2018-08-25 11:53] LABS: Glucose,Whole Blood 71 mg/dL (75-99)
[2018-08-25 12:13] VITALS: BP 114/75; PULSE 80; RESP 16; TEMP 97.5
--- NOTE | 2018-08-26 08:47 | DS ---
DISCHARGE SUMMARY DATE OF SERVICE: 08/25/2018 FINAL DIAGNOSES: 1. Syncope for evaluation. Rule out cardiac arrhythmia. 2. Sleep apnea on CPAP. 3. History of asthma, chronic obstructive pulmonary disease. 4. Diabetes mellitus type 2. 5. Hypertension. 6. Hyperlipidemia. 7. Prostate disorder. 8. History of herniated disc. 9. History of hernia repair. 10.History of nicotine dependence. 11.History of THC. 12.Obesity with body mass of 45.6. DISCHARGE DISPOSITION: The patient is being discharged in stable condition with guarded prognosis. HISTORY OF PRESENT ILLNESS: This 58-year-old gentleman with a past medical history of multiple medical problems was admitted with syncope. Patient monitored closely. Cardiology and pulmonology saw the patient. Basic evaluation negative and the patient will be discharged in stable condition with guarded prognosis. On exam, vitals are stable. CARDIOVASCULAR: S1, S2. ABDOMEN: Soft. NERVOUS SYSTEM: No focal deficit. DISCHARGE ADVICE: 1. Diet is cardiac. 2. Activities limited until follow up. 3. Follow up with Dr. Schneider in 2-3 days. 4. Follow with Cardiology and Pulmonology as recommended. MEDICATIONS: 1. Albuterol p.r.n. 2. Norvasc 10 mg daily. 3. Ecotrin 81 mg daily. 4. Flexeril 10 mg q.h.s. p.r.n. 5. Benadryl 25-50 mg daily p.r.n. 6. Vasotec 20 mg p.o. b.i.d. 7. Lofibra 160 mg p.o. b.i.d. 8. Advair 250/50 one puff b.i.d. 9. Glucotrol 5 mg p.o. daily. 10.Apresoline 50 mg p.o. 11.HydroDIURIL 25 mg p.o. daily. 12.Fairborn 7.5 q.6h p.r.n. 13.Metformin 1000 mg p.o. b.i.d. 14.Toprol-XL 100 mg q.h.s. 15.Pentoxifylline 400 mg t.i.d. p.r.n. 16.Requip 1 mg p.o. q.h.s. 17.Zocor 20 mg q.h.s. 18.Flomax 0.4 daily. Outpatient Loop record and other evaluation per Cardiology. MMODL / IJN: [id number] /
== END 2018-08-25 14:15 | disposition home or self-care (01) ==
LOC: EC 12:47 → 1SOBS 18:01
PROVIDERS: ADMIT Internal Medicine; ATTEND Internal Medicine
DX: R55 Syncope and collapse (principal); R07.89 Other chest pain; G47.33 Obstructive sleep apnea (adult) (pediatric); Z99.89 Dependence on other enabling machines and devices; J44.9 Chronic obstructive pulmonary disease, unspecified; J45.20 Mild intermittent asthma, uncomplicated; E11.9 Type 2 diabetes mellitus without complications; I10 Essential (primary) hypertension; E78.5 Hyperlipidemia, unspecified; E66.01 Morbid (severe) obesity due to excess calories; Z68.42 Body mass index [BMI] 45.0-49.9, adult; N42.9 Disorder of prostate, unspecified; G25.81 Restless legs syndrome; I45.10 Unspecified right bundle-branch block; W18.30XA Fall on same level, unspecified, initial encounter; Y92.008 Other place in unspecified non-institutional (private) residence as the place of occurrence of the external cause; Z79.82 Long term (current) use of aspirin; Z79.899 Other long term (current) drug therapy; Z79.84 Long term (current) use of oral hypoglycemic drugs; Z87.891 Personal history of nicotine dependence; Z80.8 Family history of malignant neoplasm of other organs or systems; Z83.518 Family history of other specified eye disorder; Z82.49 Family history of ischemic heart disease and other diseases of the circulatory system; Z81.8 Family history of other mental and behavioral disorders; Z83.1 Family history of other infectious and parasitic diseases
CPT/HCPCS: 99285; 36415; 94640; 36600; 94760; 93306; 80061; 80053; 80048 ×2; 82550 ×2; 82553 ×2; 82805; 83735; 84484 ×2; 85025 ×3; 85610; 85730; 81003; 83036; 71046; G0378 ×3; Q9950

== ENCOUNTER → 2018-09-03 | Outpatient (CLI) | payer OTHER ==
[2018-09-03 13:49] LABS: Basophils # (A) 0.1 k/uL (0-0.2); Basophils % (A) 1 %; Eosinophils # (A) 0.5 k/uL (0-0.7); Eosinophils % (A) 6 %; Hypochromasia Slight; Lymphocytes # (A) 1.5 k/uL (1.0-4.8); Lymphocytes % (A) 20 %; MCH 26.9 pg (25.0-35.0); MCHC 31.8 g/dL (31.0-37.0); MCV 84.6 fL (80.0-100.0); Mean Platelet Volume 5.7; Monocytes # (A) 0.4 k/uL (0-1.0); Monocytes % (A) 5 %; Neutrophils # (A) 5.2 k/uL (1.3-7.7); Neutrophils % (A) 66 %; Platelet Count 325 k/uL (150-450); RDW 13.8 % (11.5-15.5); WBC 7.8 k/uL (3.8-10.6)
[2018-09-03 19:13] LABS: Anion Gap 11.6 mmol/L (4.00-12.00); Calcium 9.3 mg/dL (8.7-10.3); Carbon Dioxide 28.4 mmol/L (21.6-31.8); Potassium 3.6 mmol/L (3.5-5.5)
== END | disposition home or self-care (01) ==
LOC: LABWHC1 11:45
PROVIDERS: ATTEND Hospitalist
DX: D64.9 Anemia, unspecified (principal)
CPT/HCPCS: 36415; 80048; 85025

== ENCOUNTER 2021-09-09 15:34 | Inpatient (IN) | payer OTHER ==
[2021-09-09] MEDS ORDERED: SODIUM CHLORIDE 0.9% 1,000 ML IV STA ×2 (16:05)
--- NOTE | 2021-09-09 16:24 | ED ---
General Adult HPI - General Chief complaint: Syncope Stated complaint: Low BP Time Seen by Provider: 09/09/21 16:01 Source: patient, EMS, RN notes reviewed, old records reviewed Mode of arrival: EMS - History of Present Illness Initial comments: 17-year-old male presenting from the internet assessor's office with hypotension. Patient had recent prolonged admission with pneumonia. He is able to give some historical details of but does not know the exact circumstances he is currently undergoing rehabilitation at the [facility]. He denies fever. He denies pain complaints. He is hypotensive upon arrival as well as tachycardic. - Related Data Home Medications Medication Instructions Recorded Confirmed Aspirin EC [Ecotrin Low Dose] 81 mg PO DAILY 08/23/18 09/09/21 Tamsulosin [Flomax] 0.4 mg PO DAILY@1400 08/23/18 09/09/21 glipiZIDE [Glucotrol] 5 mg PO DAILY 08/23/18 09/09/21 metFORMIN HCL [Glucophage] 1,000 mg PO BID 08/23/18 09/09/21 rOPINIRole HCL [Requip] 1 mg PO HS 08/23/18 09/09/21 Apixaban [Eliquis] 5 mg PO BID 09/09/21 09/09/21 Ascorbic Acid [Vitamin C] 1,000 mg PO DAILY@0800 09/09/21 09/09/21 Cholecalciferol [Vitamin D3 (25 50 mcg PO DAILY 09/09/21 09/09/21 Mcg = 1000 Iu)] Fluticasone/Vilanterol [Breo 1 puff INHALATION RT-DAILY 09/09/21 09/09/21 Ellipta 100-25 Mcg Inhaler] Gabapentin [Neurontin] 300 mg PO BID 09/09/21 09/09/21 Multivitamins, Thera [Multivitamin 1 tab PO DAILY 09/09/21 09/09/21 (formulary)] Potassium Chloride ER [K-Dur 20] 20 meq PO DAILY 09/09/21 09/09/21 Zinc Sulfate [Orazinc] 220 mg PO DAILY 09/09/21 09/09/21 hydrALAZINE HCL 25 mg PO BID@0500,1600 09/09/21 09/09/21 hydrALAZINE HCL 50 mg PO BID@0500,1600 09/09/21 09/09/21 metroNIDAZOLE [Flagyl] 500 mg PO DAILY 09/09/21 09/09/21 Previous Rx's Medication Instructions Recorded Famotidine [Pepcid] 20 mg PO BID tab 07/16/21 Folic Acid 1 mg PO DAILY tab 07/16/21 Furosemide [Lasix] 40 mg PO DAILY tab 07/16/21 Ipratropium-Albuterol Nebulize 3 ml INHALATION RT-QID ml 07/16/21 [Duoneb 0.5 mg-3 mg/3 ml Soln] Metoprolol Tartrate [Lopressor] 50 mg PO BID tab 07/16/21 lisinopriL [Zestril] 10 mg PO DAILY #0 tab 07/16/21 Allergies Allergy/AdvReac Type Severity Reaction Status Date / Time No Known Allergies Allergy Verified 09/09/21 18:45 Review of Systems ROS Statement: Those systems with pertinent positive or pertinent negative responses have been documented in the HPI. ROS Other: All systems not noted in ROS Statement are negative. Past Medical History Past Medical History: Asthma, COPD, Diabetes Mellitus, Hyperlipidemia, Hypertension, Prostate Disorder, Sleep Apnea/CPAP/BIPAP Additional Past Medical History / Comment(s): sleep apnea uses cpap machine, herniated disc-has had injections, past stress test pt stated was wnl, had a pne vaccine approx 3 years ago , newswriter unable to verify date at time of this admit. History of Any Multi-Drug Resistant Organisms: None Reported Past Surgical History: Hernia Repair Additional Past Surgical History / Comment(s): hydrocelectomy, vasectomy, colonoscopy/polypectomy-benign. umbilical hernia repair, injections for herniated disc. Past Anesthesia/Blood Transfusion Reactions: No Reported Reaction Additional Past Anesthesia/Blood Transfusion Reaction / Comment(s): clausterphobia. pt stated has never had a blood transfusion Past Psychological History: No Psychological Hx Reported Smoking Status: Never smoker Past Alcohol Use History: Occasional Past Drug Use History: Marijuana - Past Family History Mother Family Medical History: Cancer, Eye Disorder Additional Family Medical History / Comment(s): skin cancer, macular degeneration Father Family Medical History: Coronary Artery Disease (CAD), Dementia Additional Family Medical History / Comment(s): cabg, stents, uti/sepsis General Exam General appearance: alert, in no apparent distress Head exam: Present: atraumatic, normocephalic Eye exam: Present: normal appearance, PERRL ENT exam: Present: mucous membranes dry Neck exam: Present: normal inspection. Absent: tenderness, meningismus Respiratory exam: Present: rhonchi. Absent: respiratory distress Cardiovascular Exam: Present: normal rhythm, tachycardia GI/Abdominal exam: Present: soft. Absent: distended, tenderness, guarding, rebo und Extremities exam: Present: normal inspection, normal capillary refill Neurological exam: Present: alert, motor sensory deficit (Left lower extremity weakness, residual) Psychiatric exam: Present: normal affect, normal mood Skin exam: Present: warm, dry, intact. Absent: cyanosis, diaphoretic Course Vital Signs 09/09/21 09/09/21 09/09/21 15:44 15:59 16:30 Temperature 97.1 F L Pulse Rate 115 H Respiratory 14 Rate Blood Pressure 72/47 105/70 O2 Sat by Pulse 97 Oximetry - Reevaluation(s) Reevaluation #1: 09/09/21 19:35 Patient did indicate that he does not want to be resuscitated if his condition were to worsen. He does not want intubation. I did indicate that the patient was a DO NOT RESUSCITATE of the medical record. EKG Findings - EKG Comments: EKG Findings:: EKG: Sinus tachycardia, rightward axis, right bundle-branch block no ST segment elevation, rate of 112, OR interval 183, QRS duration 138, QTC 406 Medical Decision Making - Medical Decision Making 61-year-old male presenting from the pulmonologists office with hypotension, tachycardia. Patient has initial blood pressure in the 70s. Does respond to fluid hydration. He has a normal CBC without leukocytosis. He is in acute renal failure with a elevated creatinine at 3.4. His blood sugars 36. This is treated with dextrose. He has a normal lactic acid. He has a magnesium 1.3. Urinalysis is pending. Chest x-ray is clear. Patient wishes to be made a DO NOT RESUSCITATE. He will be admitted to Dr. Nelson who is aware. Pulmonology placed on consult as they are familiar with this patient. - Lab Data Result diagrams: 09/09/21 16:28 09/09/21 16:28 Lab Results 09/09/21 09/09/21 09/09/21 Range/Units 16:28 16:28 16:28 WBC 6.8 (3.8-10.6) k/uL RBC 4.86 (4.30-5.90) m/uL Hgb 13.8 (13.0-17.5) gm/dL Hct 43.5 (39.0-53.0) % MCV 89.3 (80.0-100.0) fL MCH 28.3 (25.0-35.0) pg MCHC 31.7 (31.0-37.0) g/dL RDW 16.3 H (11.5-15.5) % Plt Count 244 (150-450) k/uL MPV 7.0 Neutrophils % (Manual) 73 % Lymphocytes % (Manual) 13 % Monocytes % (Manual) 9 % Eosinophils % (Manual) 5 % Neutrophils # (Manual) 4.96 (1.3-7.7) k/uL Lymphocytes # (Manual) 0.88 L (1.0-4.8) k/uL Monocytes # (Manual) 0.61 (0-1.0) k/uL Eosinophils # (Manual) 0.34 (0-0.7) k/uL Nucleated RBCs 0 (0-0) /100 WBC Manual Slide Review Performed Hypochromasia Marked Anisocytosis Slight PT 12.2 H (9.0-12.0) sec INR 1.1 (<1.2) APTT 29.5 (22.0-30.0) sec Sodium 136 L (137-145) mmol/L Potassium 4.9 (3.5-5.1) mmol/L Chloride 107 (98-107) mmol/L Carbon Dioxide 18 L (22-30) mmol/L Anion Gap 11 mmol/L BUN 40 H (9-20) mg/dL Creatinine 3.41 H (0.66-1.25) mg/dL Est GFR (CKD-EPI)AfAm 21 (>60 ml/min/1.73 sqM) Est GFR (CKD-EPI)NonAf 19 (>60 ml/min/1.73 sqM) Glucose 36 L* (74-99) mg/dL POC Glucose (mg/dL) (75-99) mg/dL POC Glu Pattern Developer ID Plasma Lactic Acid Hayden (0.7-2.0) mmol/L Calcium 8.5 (8.4-10.2) mg/dL Magnesium 1.3 L (1.6-2.3) mg/dL Total Bilirubin 0.7 (0.2-1.3) mg/dL AST 22 (17-59) U/L ALT 12 (4-49) U/L Alkaline Phosphatase 52 (38-126) U/L Troponin I (0.000-0.034) ng/mL Total Protein 6.1 L (6.3-8.2) g/dL Albumin 3.3 L (3.5-5.0) g/dL 09/09/21 09/09/21 09/09/21 Range/Units 16:28 16:28 17:35 WBC (3.8-10.6) k/uL RBC (4.30-5.90) m/uL Hgb (13.0-17.5) gm/dL Hct (39.0-53.0) % MCV (80.0-100.0) fL MCH (25.0-35.0) pg MCHC (31.0-37.0) g/dL RDW (11.5-15.5) % Plt Count (150-450) k/uL MPV Neutrophils % (Manual) % Lymphocytes % (Manual) % Monocytes % (Manual) % Eosinophils % (Manual) % Neutrophils # (Manual) (1.3-7.7) k/uL Lymphocytes # (Manual) (1.0-4.8) k/uL Monocytes # (Manual) (0-1.0) k/uL Eosinophils # (Manual) (0-0.7) k/uL Nucleated RBCs (0-0) /100 WBC Manual Slide Review Hypochromasia Anisocytosis PT (9.0-12.0) sec INR (<1.2) APTT (22.0-30.0) sec Sodium (137-145) mmol/L Potassium (3.5-5.1) mmol/L Chloride (98-107) mmol/L Carbon Dioxide (22-30) mmol/L Anion Gap mmol/L BUN (9-20) mg/dL Creatinine (0.66-1.25) mg/dL Est GFR (CKD-EPI)AfAm (>60 ml/min/1.73 sqM) Est GFR (CKD-EPI)NonAf (>60 ml/min/1.73 sqM) Glucose (74-99) mg/dL POC Glucose (mg/dL) 52 L (75-99) mg/dL POC Glu Pattern Developer Esther Oleary Plasma Lactic Acid Hayden 2.0 (0.7-2.0) mmol/L Calcium (8.4-10.2) mg/dL Magnesium (1.6-2.3) mg/dL Total Bilirubin (0.2-1.3) mg/dL AST (17-59) U/L ALT (4-49) U/L Alkaline Phosphatase (38-126) U/L Troponin I 0.017 (0.000-0.034) ng/mL Total Protein (6.3-8.2) g/dL Albumin (3.5-5.0) g/dL 09/09/21 09/09/21 09/09/21 Range/Units 17:44 17:51 19:39 WBC (3.8-10.6) k/uL RBC (4.30-5.90) m/uL Hgb (13.0-17.5) gm/dL Hct (39.0-53.0) % MCV (80.0-100.0) fL MCH (25.0-35.0) pg MCHC (31.0-37.0) g/dL RDW (11.5-15.5) % Plt Count (150-450) k/uL MPV Neutrophils % (Manual) % Lymphocytes % (Manual) % Monocytes % (Manual) % Eosinophils % (Manual) % Neutrophils # (Manual) (1.3-7.7) k/uL Lymphocytes # (Manual) (1.0-4.8) k/uL Monocytes # (Manual) (0-1.0) k/uL Eosinophils # (Manual) (0-0.7) k/uL Nucleated RBCs (0-0) /100 WBC Manual Slide Review Hypochromasia Anisocytosis PT (9.0-12.0) sec INR (<1.2) APTT (22.0-30.0) sec Sodium (137-145) mmol/L Potassium (3.5-5.1) mmol/L Chloride (98-107) mmol/L Carbon Dioxide (22-30) mmol/L Anion Gap mmol/L BUN (9-20) mg/dL Creatinine (0.66-1.25) mg/dL Est GFR (CKD-EPI)AfAm (>60 ml/min/1.73 sqM) Est GFR (CKD-EPI)NonAf (>60 ml/min/1.73 sqM) Glucose (74-99) mg/dL POC Glucose (mg/dL) 94 88 55 L (75-99) mg/dL POC Glu Pattern Developer Esther Oleary Ashley Smith, Ashley Plasma Lactic Acid Hayden (0.7-2.0) mmol/L Calcium (8.4-10.2) mg/dL Magnesium (1.6-2.3) mg/dL Total Bilirubin (0.2-1.3) mg/dL AST (17-59) U/L ALT (4-49) U/L Alkaline Phosphatase (38-126) U/L Troponin I (0.000-0.034) ng/mL Total Protein (6.3-8.2) g/dL Albumin (3.5-5.0) g/dL Disposition Clinical Impression: Dehydration, Acute kidney injury, Hypotension Disposition: ADMITTED IP TO THIS [facility] Condition: Serious Is patient prescribed a controlled substance at d/c from ED?: No Referrals: Seda Schneider MD [Primary Care Provider] - 1-2 days Decision to Admit Reason: Admit from EC Decision Date: 09/09/21 Decision Time: 19:36
[2021-09-09 17:10] LABS: Anisocytosis Slight; HCT 43.5 % (39.0-53.0); HGB 13.8 gm/dL (13.0-17.5); Hypochromasia Marked; MCH 28.3 pg (25.0-35.0); MCHC 31.7 g/dL (31.0-37.0); MCV 89.3 fL (80.0-100.0); Platelet Count 244 k/uL (150-450); RBC 4.86 m/uL (4.30-5.90); RDW 16.3 % (11.5-15.5); WBC 6.8 k/uL (3.8-10.6)
[2021-09-09] MEDS ORDERED: CEFEPIME 2 GM in SODIUM CHLORIDE 0.9% 100 ML IVPB STA (17:14)
[2021-09-09 17:16] LABS: INR 1.1 (<1.2); Partial Thromboplastin Time 29.5 sec (22.0-30.0); Prothrombin Time 12.2 sec (9.0-12.0)
[2021-09-09 17:27] LABS: Albumin 3.3 g/dL (3.5-5.0); Calcium 8.5 mg/dL (8.4-10.2); Magnesium 1.3 mg/dL (1.6-2.3); Potassium 4.9 mmol/L (3.5-5.1); Total Bilirubin 0.7 mg/dL (0.2-1.3); Total Protein 6.1 g/dL (6.3-8.2)
[2021-09-09 17:33] LABS: Eosinophils # (M) 0.34 k/uL (0-0.7); Lymphocytes # (M) 0.88 k/uL (1.0-4.8); Monocytes # (M) 0.61 k/uL (0-1.0); Neutrophils # (M) 4.96 k/uL (1.3-7.7); Neutrophils % (M) 73 %; Nucleated Red Blood Cells 0 /100 WBC (0-0); Total Cells Counted 100
[2021-09-09] MEDS ORDERED: DEXTROSE 50% SYRINGE 50 ML IVP STA ×2 (17:36→19:42)
[2021-09-09 17:42] LABS: Glucose,Whole Blood 52 mg/dL (75-99)
[2021-09-09 17:46] LABS: Glucose,Whole Blood 94 mg/dL (75-99)
[2021-09-09] MEDS ORDERED: SODIUM CHLORIDE 0.9% 500 ML 500 ML IV ONE (17:55)
[2021-09-09 18:10] LABS: Glucose,Whole Blood 88 mg/dL (75-99)
[2021-09-09] MEDS ORDERED: NALOXONE 0.4 MG/ML 1 ML VIAL IV PRN (19:33)
[2021-09-09 19:59] LABS: Glucose,Whole Blood 55 mg/dL (75-99)
--- NOTE | 2021-09-09 20:10 | XR ---
EXAMINATION TYPE: XR chest 2V DATE OF EXAM: 09/09/2021 7:06 PM COMPARISON:Chest radiographs from 07/15/2021 TECHNIQUE: XR chest 2V Frontal and lateral views of the chest. CLINICAL INDICATION:Male, 61 years old with history of syncope; FINDINGS: Lungs/Pleura: There is no evidence of pleural effusion, focal consolidation, or pneumothorax. Pulmonary vascularity: Unremarkable. Heart/mediastinum: Cardiomediastinal silhouette is prominent in size. Musculoskeletal: No acute osseous pathology. IMPRESSION: No acute cardiopulmonary disease/process.
[2021-09-09 20:26] LABS: Glucose,Whole Blood 126 mg/dL (75-99)
[2021-09-10] MEDS: CEFEPIME 2 GM in SODIUM CHLORIDE 0.9% 100 ML IVPB SCH ×2 (00:40→08:47)
[2021-09-10 07:27] LABS: Glucose,Whole Blood 36 mg/dL (75-99)
[2021-09-10 07:42] LABS: Glucose,Whole Blood 37 mg/dL (75-99)
[2021-09-10 08:05] LABS: Glucose,Whole Blood 52 mg/dL (75-99)
[2021-09-10 08:32] LABS: Glucose,Whole Blood 62 mg/dL (75-99)
[2021-09-10 08:57] LABS: Glucose,Whole Blood 68 mg/dL (75-99)
[2021-09-10 09:35] LABS: Appearance,Urine Slightly Cloudy (Clear); Color,Urine Yellow; Protein,Urine 1+ (Negative)
[2021-09-10 09:36] LABS: Bilirubin,Urine Negative (Negative); Blood,Urine Negative (Negative); Glucose,Urine (UA) Negative (Negative); Ketones,Urine Negative (Negative); Urobilinogen,Urine <2.0 mg/dL (<2.0)
[2021-09-10 09:41] LABS: Leukocyte Esterase,Urine Small (Negative); Nitrite,Urine Negative (Negative)
[2021-09-10 09:42] LABS: WBC,Urine 4 /hpf (0-5)
[2021-09-10 09:43] LABS: Amorphous Sediment,Urine Moderate /hpf; Squamous Epithelial Cell,Urine 2 /hpf (0-4)
[2021-09-10 09:45] LABS: Bacteria,Urine Few /hpf
[2021-09-10] MEDS ORDERED: FAMOTIDINE 20 MG TAB PO SCH (10:00)
[2021-09-10 10:10] LABS: Glucose,Whole Blood 74 mg/dL (75-99)
[2021-09-10] MEDS: IPRATROPIUM-ALBUTEROL 3 ML NEB INHALATION SCH ×3 (11:18→19:55)
[2021-09-10] MEDS: ASPIRIN 81 MG PO SCH (11:52)
[2021-09-10] MEDS: APIXABAN 5 MG TAB PO SCH ×2 (11:52→20:37)
[2021-09-10 12:39] LABS: Glucose,Whole Blood 84 mg/dL (75-99)
[2021-09-10] MEDS ORDERED: SODIUM CHLORIDE 0.9% 1,000 ML IV SCH (12:45)
[2021-09-10] MEDS: TAMSULOSIN 0.4 MG CAP.ER.24H PO SCH (13:07)
[2021-09-10 17:30] LABS: Glucose,Whole Blood 67 mg/dL (75-99)
[2021-09-10 17:44] LABS: Glucose,Whole Blood 71 mg/dL (75-99)
--- NOTE | 2021-09-10 19:24 | P.HPIM ---
History of Present Illness H&P Date: 09/10/21 Chief Complaint: Low blood pressure This is a 61-year-old patient, follows with Dr. Seda Schneider. Chronic stable medical conditions include diabetes, , hyperlipidemia, obstructive sleep apnea uses CPAP, herniated disc / injections,. Patient was in the hospital from 06/26/2021 through July 16 Admitted with pneumonia, severe hypothermia, acute hypoxic respiratory failure, possible sepsis, possible acute congestive heart failure exacerbation. Was intubated. Was discharged on intermittent BiPAP. [place] to have possible viral pneumonitis. Was negative for COVID. Was discharged to rehab. At the rehab patient had a poor appetite. Not really able to walk. Patient was at photo lab specialist up as found a very low blood pressure. Admitted. Denies any fever and chills. Actually eating better here. Has been having daily bowel movements. Occasional diarrhea. Does feel tired and rundown. Review of systems: GEN.: Tired decreased appetite EYES: None HEENT: None NECK: None RESPIRATORY: None CARDIOVASCULAR: None GASTROINTESTINAL: None GENITOURINARY: None MUSCULOSKELETAL: Joint pains LYMPHATICS: None HEMATOLOGICAL: None PSYCHIATRY: None NEUROLOGICAL: Weakness of muscles Past medical history to include: COPD, asthma, diabetes, hypertension, hyperlipidemia, obstructive sleep apnea uses CPAP, herniated disc uses injections, pneumonia June 2021 patient intubated Social history: Alcohol occasionally. Occasional cigar. Marijuana occasionally. . At rehab Family history: Skin cancer, macular degeneration Physical examination: VITAL SIGNS: 97.1, 115, 14, 72/47, 97% room air GENERAL: BMI 34, laying in bed, awake, tired. EYES: Pupils equal. Conjunctiva normal. HEENT: External appearance of nose and ears normal, oral cavity grossly normal. NECK: JVD not raised; masses not palpable. HEART: First and second heart sounds are normal; no edema. LUNGS: Respiratory rate normal; clear to auscultation. ABDOMEN: Soft, nontender, liver spleen not palpable, no masses palpable. PSYCH: Alert and oriented x3; mood and affect a bit lowl. MUSCULOSKELETAL:No Clubbing/cyanosis;muscles-grossly intact NEUROLOGICAL: Cranial nerves grossly intact; no facial asymmetry, decreased bowel lower extremity.. LYMPHATICS: No lymph nodes palpable in the axilla and neck INVESTIGATIONS, reviewed in the clinical context: White count 6.8 hemoglobin 13.8 platelets 244 sodium 136 potassium 4.9 BUN 40 creatinine 3.41. EKG tracing personally reviewed by me-sinus rhythm, right bundle branch block. Some T waves abnormalities Chest x-ray film personally reviewed by me-possible chronic changes Blood Glucose 36 Assessment and plan: -Severe hypotension, from acute kidney injury from decreased oral intake IV fluids -Chronic congestive heart failure. From diastolic dysfunction EF 55-60%: Hold diuretics for now -Critical care myopathy: Slow to respond PTOT. -Obesity BMI 34 -Essential hypertension, currently blood pressure running low Hold off antihypertensive -Restless leg syndrome Requip 1 mg daily at bedtime -Diabetes mellitus type 2 on oral hypoglycemic, uncontrolled with hypoglycemia Hold of oral hypoglycemic. Follow Accu-Cheks. D5 0.45 -Hyperlipidemia Hold off Zocor because of muscle weakness -BPH Flomax 0.4 mg daily -COPD Advair 250/50 one puff twice a day. DuoNeb 4 times a day -Chronic medical debility from recent protracted hospitalization PTOT Patient IV fluids. Hold oral hypoglycemic. Accu-Cheks. Care discussed with the patient. PTOT. 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 History of Any Multi-Drug Resistant Organisms: None Reported Past Surgical History: Hernia Repair Additional Past Surgical History / Comment(s): hydrocelectomy, vasectomy, colonoscopy/polypectomy-benign. umbilical hernia repair, injections for herniated disc. Past Anesthesia/Blood Transfusion Reactions: No Reported Reaction Additional Past Anesthesia/Blood Transfusion Reaction / Comment(s): clausterphobia. pt stated has never had a blood transfusion Past Psychological History: No Psychological Hx Reported Smoking Status: Never smoker Past Alcohol Use History: Occasional Additional Past Alcohol Use History / Comment(s): approx 2008 briefly smoked the occ cigar. pt has a rare drink Past Drug Use History: Marijuana Additional Drug Use History / Comment(s): approx every 3 months - Past Family History Mother Family Medical History: Cancer, Eye Disorder Additional Family Medical History / Comment(s): skin cancer, macular degeneration Father Family Medical History: Coronary Artery Disease (CAD), Dementia Additional Family Medical History / Comment(s): cabg, stents, uti/sepsis Medications and Allergies Home Medications Medication Instructions Recorded Confirmed Type Aspirin EC [Ecotrin Low Dose] 81 mg PO DAILY 08/23/18 09/09/21 History Tamsulosin [Flomax] 0.4 mg PO DAILY@1400 08/23/18 09/09/21 History glipiZIDE [Glucotrol] 5 mg PO DAILY 08/23/18 09/09/21 History metFORMIN HCL [Glucophage] 1,000 mg PO BID 08/23/18 09/09/21 History rOPINIRole HCL [Requip] 1 mg PO HS 08/23/18 09/09/21 History Famotidine [Pepcid] 20 mg PO BID tab 07/16/21 09/09/21 Rx Folic Acid 1 mg PO DAILY tab 07/16/21 09/09/21 Rx Furosemide [Lasix] 40 mg PO DAILY tab 07/16/21 09/09/21 Rx Ipratropium-Albuterol Nebulize 3 ml INHALATION RT-QID ml 07/16/21 09/09/21 Rx [Duoneb 0.5 mg-3 mg/3 ml Soln] Metoprolol Tartrate [Lopressor] 50 mg PO BID tab 07/16/21 09/09/21 Rx lisinopriL [Zestril] 10 mg PO DAILY #0 tab 07/16/21 09/09/21 Rx Apixaban [Eliquis] 5 mg PO BID 09/09/21 09/09/21 History Ascorbic Acid [Vitamin C] 1,000 mg PO DAILY@0800 09/09/21 09/09/21 History Cholecalciferol [Vitamin D3 (25 50 mcg PO DAILY 09/09/21 09/09/21 History Mcg = 1000 Iu)] Fluticasone/Vilanterol [Breo 1 puff INHALATION RT-DAILY 09/09/21 09/09/21 History Ellipta 100-25 Mcg Inhaler] Gabapentin [Neurontin] 300 mg PO BID 09/09/21 09/09/21 History Multivitamins, Thera [Multivitamin 1 tab PO DAILY 09/09/21 09/09/21 History (formulary)] Potassium Chloride ER [K-Dur 20] 20 meq PO DAILY 09/09/21 09/09/21 History Zinc Sulfate [Orazinc] 220 mg PO DAILY 09/09/21 09/09/21 History hydrALAZINE HCL 25 mg PO BID@0500,1600 09/09/21 09/09/21 History hydrALAZINE HCL 50 mg PO BID@0500,1600 09/09/21 09/09/21 History metroNIDAZOLE [Flagyl] 500 mg PO DAILY 09/09/21 09/09/21 History Allergies Allergy/AdvReac Type Severity Reaction Status Date / Time No Known Allergies Allergy Verified 09/09/21 18:45 Physical Exam Vitals: Vital Signs Temp Pulse Pulse Resp BP BP Pulse Ox 09/10/21 05:06 97.2 F L 97 20 113/74 96 09/09/21 23:15 98.0 F 108 H 20 116/72 100 09/09/21 22:30 97.1 F L 99 18 104/55 100 09/09/21 20:59 99 18 104/55 100 09/09/21 16:30 105/70 09/09/21 15:59 72/47 09/09/21 15:44 97.1 F L 115 H 14 97 Intake and Output 09/09/21 09/10/21 09/10/21 22:59 06:59 14:59 Intake Total 400 Balance 400 Intake: Oral 400 Other: Voiding Method Incontinent # Voids 0 Weight 101.5 kg Results CBC & Chem 7: 09/09/21 16:28 09/09/21 16:28 Labs: Abnormal Lab Results - Last 24 Hours (Table) 09/09/21 09/09/21 09/09/21 Range/Units 16:28 16:28 16:28 RDW 16.3 H (11.5-15.5) % Lymphocytes # (Manual) 0.88 L (1.0-4.8) k/uL PT 12.2 H (9.0-12.0) sec Sodium 136 L (137-145) mmol/L Carbon Dioxide 18 L (22-30) mmol/L BUN 40 H (9-20) mg/dL Creatinine 3.41 H (0.66-1.25) mg/dL Glucose 36 L* (74-99) mg/dL POC Glucose (mg/dL) (75-99) mg/dL Magnesium 1.3 L (1.6-2.3) mg/dL Total Protein 6.1 L (6.3-8.2) g/dL Albumin 3.3 L (3.5-5.0) g/dL Amorphous Sediment (None) /hpf Urine Bacteria (None) /hpf 09/09/21 09/09/21 09/09/21 Range/Units 17:35 19:39 20:06 RDW (11.5-15.5) % Lymphocytes # (Manual) (1.0-4.8) k/uL PT (9.0-12.0) sec Sodium (137-145) mmol/L Carbon Dioxide (22-30) mmol/L BUN (9-20) mg/dL Creatinine (0.66-1.25) mg/dL Glucose (74-99) mg/dL POC Glucose (mg/dL) 52 L 55 L 126 H (75-99) mg/dL Magnesium (1.6-2.3) mg/dL Total Protein (6.3-8.2) g/dL Albumin (3.5-5.0) g/dL Amorphous Sediment (None) /hpf Urine Bacteria (None) /hpf 09/10/21 09/10/21 09/10/21 Range/Units 06:21 07:13 07:40 RDW (11.5-15.5) % Lymphocytes # (Manual) (1.0-4.8) k/uL PT (9.0-12.0) sec Sodium (137-145) mmol/L Carbon Dioxide (22-30) mmol/L BUN (9-20) mg/dL Creatinine (0.66-1.25) mg/dL Glucose (74-99) mg/dL POC Glucose (mg/dL) 36 L 37 L (75-99) mg/dL Magnesium (1.6-2.3) mg/dL Total Protein (6.3-8.2) g/dL Albumin (3.5-5.0) g/dL Amorphous Sediment Moderate H (None) /hpf Urine Bacteria Few H (None) /hpf 09/10/21 09/10/21 09/10/21 Range/Units 08:03 08:28 08:55 RDW (11.5-15.5) % Lymphocytes # (Manual) (1.0-4.8) k/uL PT (9.0-12.0) sec Sodium (137-145) mmol/L Carbon Dioxide (22-30) mmol/L BUN (9-20) mg/dL Creatinine (0.66-1.25) mg/dL Glucose (74-99) mg/dL POC Glucose (mg/dL) 52 L 62 L 68 L (75-99) mg/dL Magnesium (1.6-2.3) mg/dL Total Protein (6.3-8.2) g/dL Albumin (3.5-5.0) g/dL Amorphous Sediment (None) /hpf Urine Bacteria (None) /hpf Thrombosis Risk Factor Assmnt - Choose All That Apply Any of the Below Risk Factors Present?: Yes Each Factor Represents 1 point: Age 41-60 years, Obesity (BMI >25) Other Risk Factors: Yes Each Risk Factor Represents 3 Points: History of DVT/PE Other congenital or acquired thrombophilia - If yes, enter type in comment: No Thrombosis Risk Factor Assessment Total Risk Factor Score: 5 Thrombosis Risk Factor Assessment Level: High Risk
[2021-09-10 19:31] LABS: Glucose,Whole Blood 108 mg/dL (75-99)
[2021-09-10] MEDS: SYMBICORT 80-4.5 MCG INHALER INHALATION SCH (19:55)
[2021-09-10] MEDS ORDERED: DEXTROSE 4 GM CHEWABLE PO PRN (20:16)
[2021-09-10] MEDS: DEXTROSE 5%-0.9% NACL 1,000 ML IV SCH (20:31)
[2021-09-10] MEDS: ONDANSETRON 4 MG TAB PO PRN (20:36)
[2021-09-10] MEDS: GABAPENTIN 300 MG CAP PO SCH (20:37)
[2021-09-10] MEDS ORDERED: CEFEPIME 1 GM in SODIUM CHLORIDE 0.9% 50 ML IVPB SCH (21:00)
--- NOTE | 2021-09-10 21:32 | XR ---
EXAMINATION TYPE: XR abdomen acute w cxr DATE OF EXAM: 09/10/2021 COMPARISON: NONE HISTORY: Abdominal pain TECHNIQUE: Abdominal pain FINDINGS: 4 views are obtained. There is some blunting of the left costophrenic angle. There is no si gn of intestinal obstruction or pneumoperitoneum. Fecal pattern is normal. There is no evidence of a mass. There are no pathologic calcifications seen over the kidneys. IMPRESSION: There is some infiltrate and pleural reaction left lateral lung base which is increased c ompared to chest x-ray yesterday. Nonacute abdomen.
[2021-09-11 02:00] LABS: Glucose,Whole Blood 172 mg/dL (75-99)
[2021-09-11] MEDS: METOPROLOL TARTRATE 12.5 MG TAB PO SCH ×3 (03:54→21:42)
[2021-09-11] MEDS: DEXTROSE 5%-0.9% NACL 1,000 ML IV SCH ×2 (04:32→10:03)
[2021-09-11 07:26] LABS: Glucose,Whole Blood 199 mg/dL (75-99)
[2021-09-11] MEDS: SYMBICORT 80-4.5 MCG INHALER INHALATION SCH ×2 (07:37→19:24)
[2021-09-11] MEDS: IPRATROPIUM-ALBUTEROL 3 ML NEB INHALATION SCH ×4 (07:37→19:24)
[2021-09-11] MEDS ORDERED: ONDANSETRON 4 MG/2 ML VIAL IM STA (07:43)
[2021-09-11 07:44] LABS: Magnesium 1.2 mg/dL (1.6-2.3)
[2021-09-11] MEDS ORDERED: SODIUM ZIRCONIUM CYCLOSILICATE 10 GM PACKET PO ONE (08:22)
[2021-09-11] MEDS ORDERED: INSULIN ASPART (NovoLOG) 100 UNIT/ML VIAL SQ ONE (08:24)
[2021-09-11] MEDS ORDERED: SODIUM BICARB 8.4% 50 ML SYR (1 MEQ/ML) IV STA ×2 (08:25→16:37)
[2021-09-11] MEDS: DEXTROSE 50% SYRINGE 50 ML IVP STA ×2 (08:54→10:15)
[2021-09-11] MEDS ORDERED: INSULIN REGULAR 100 UNIT/ML VIAL (IV) IV ONE ×3 (08:55→21:35)
[2021-09-11] MEDS ORDERED: CALCIUM GLUCONATE 1 GM in SODIUM CHLORIDE 0.9% 100 ML IVPB ONE ×2 (09:00→16:38)
[2021-09-11] MEDS: ASPIRIN 81 MG PO SCH (09:58)
[2021-09-11] MEDS: FAMOTIDINE 20 MG TAB PO SCH (09:58)
[2021-09-11] MEDS: APIXABAN 5 MG TAB PO SCH ×2 (09:58→21:15)
[2021-09-11] MEDS: ASCORBIC ACID 500 MG TAB PO SCH (09:58)
[2021-09-11] MEDS: FOLIC ACID 1 MG TAB PO SCH (09:58)
[2021-09-11] MEDS: GABAPENTIN 300 MG CAP PO SCH ×2 (09:58→21:15)
[2021-09-11 10:13] LABS: Potassium 7.2 mmol/L (3.5-5.1)
[2021-09-11] MEDS: MULTIVITAMINS, THERA 1 EACH TAB PO SCH (10:26)
--- NOTE | 2021-09-11 11:17 | P.GSCN ---
History of Present Illness Consult date: 09/11/21 Reason for Consult: Abdominal pain History of present illness: This is a 61-year-old male who is admitted to the hospital for multiple medical reasons. Apparently the patient had some abdominal pain last night. The patient is currently sleeping in bed. He denies any abdominal pain currently. 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 History of Any Multi-Drug Resistant Organisms: None Reported Past Surgical History: Hernia Repair Additional Past Surgical History / Comment(s): hydrocelectomy, vasectomy, colonoscopy/polypectomy-benign. umbilical hernia repair, injections for herniated disc. Past Anesthesia/Blood Transfusion Reactions: No Reported Reaction Additional Past Anesthesia/Blood Transfusion Reaction / Comm: clausterphobia. pt stated has never had a blood transfusion Past Psychological History: No Psychological Hx Reported Smoking Status: Never smoker Past Alcohol Use History: Occasional Additional Past Alcohol Use History / Comment(s): approx 2008 briefly smoked the occ cigar. pt has a rare drink Past Drug Use History: Marijuana Additional Drug Use History / Comment(s): approx every 3 months - Past Family History Mother Family Medical History: Cancer, Eye Disorder Additional Family Medical History / Comment(s): skin cancer, macular degeneration Father Family Medical History: Coronary Artery Disease (CAD), Dementia Additional Family Medical History / Comment(s): cabg, stents, uti/sepsis Medications and Allergies Home Medications Medication Instructions Recorded Confirmed Type Aspirin EC [Ecotrin Low Dose] 81 mg PO DAILY 08/23/18 09/09/21 History Tamsulosin [Flomax] 0.4 mg PO DAILY@1400 08/23/18 09/09/21 History glipiZIDE [Glucotrol] 5 mg PO DAILY 08/23/18 09/09/21 History metFORMIN HCL [Glucophage] 1,000 mg PO BID 08/23/18 09/09/21 History rOPINIRole HCL [Requip] 1 mg PO HS 08/23/18 09/09/21 History Famotidine [Pepcid] 20 mg PO BID tab 07/16/21 09/09/21 Rx Folic Acid 1 mg PO DAILY tab 07/16/21 09/09/21 Rx Furosemide [Lasix] 40 mg PO DAILY tab 07/16/21 09/09/21 Rx Ipratropium-Albuterol Nebulize 3 ml INHALATION RT-QID ml 07/16/21 09/09/21 Rx [Duoneb 0.5 mg-3 mg/3 ml Soln] Metoprolol Tartrate [Lopressor] 50 mg PO BID tab 07/16/21 09/09/21 Rx lisinopriL [Zestril] 10 mg PO DAILY #0 tab 07/16/21 09/09/21 Rx Apixaban [Eliquis] 5 mg PO BID 09/09/21 09/09/21 History Ascorbic Acid [Vitamin C] 1,000 mg PO DAILY@0800 09/09/21 09/09/21 History Cholecalciferol [Vitamin D3 (25 50 mcg PO DAILY 09/09/21 09/09/21 History Mcg = 1000 Iu)] Fluticasone/Vilanterol [Breo 1 puff INHALATION RT-DAILY 09/09/21 09/09/21 History Ellipta 100-25 Mcg Inhaler] Gabapentin [Neurontin] 300 mg PO BID 09/09/21 09/09/21 History Multivitamins, Thera [Multivitamin 1 tab PO DAILY 09/09/21 09/09/21 History (formulary)] Potassium Chloride ER [K-Dur 20] 20 meq PO DAILY 09/09/21 09/09/21 History Zinc Sulfate [Orazinc] 220 mg PO DAILY 09/09/21 09/09/21 History hydrALAZINE HCL 25 mg PO BID@0500,1600 09/09/21 09/09/21 History hydrALAZINE HCL 50 mg PO BID@0500,1600 09/09/21 09/09/21 History metroNIDAZOLE [Flagyl] 500 mg PO DAILY 09/09/21 09/09/21 History Allergies Allergy/AdvReac Type Severity Reaction Status Date / Time No Known Allergies Allergy Verified 09/09/21 18:45 Surgical - Exam Vital Signs Temp Pulse Resp Pulse Ox 97.1 F L 115 H 14 97 09/09/21 15:44 09/09/21 15:44 09/09/21 15:44 09/09/21 15:44 - General well developed, well nourished, no distress - Eyes PERRL - ENT normal pinna - Neck no masses - Respiratory normal expansion - Cardiovascular Rhythm: regular - Abdomen Obese Abdomen: soft, non tender Results - Labs 09/09/21 16:28 09/11/21 09:19 Abnormal Lab Results - Last 24 Hours (Table) 09/10/21 09/10/21 09/10/21 Range/Units 17:21 17:43 19:30 Potassium (3.5-5.1) mmol/L POC Glucose (mg/dL) 67 L 71 L 108 H (75-99) mg/dL Magnesium (1.6-2.3) mg/dL 09/11/21 09/11/21 09/11/21 Range/Units 01:55 06:50 07:24 Potassium 7.0 H* (3.5-5.1) mmol/L POC Glucose (mg/dL) 172 H 199 H (75-99) mg/dL Magnesium 1.2 L (1.6-2.3) mg/dL 09/11/21 Range/Units 09:19 Potassium 7.2 H* (3.5-5.1) mmol/L POC Glucose (mg/dL) (75-99) mg/dL Magnesium (1.6-2.3) mg/dL Microbiology - Last 24 Hours (Table) 09/09/21 16:28 Blood Culture - Preliminary Blood No Growth after 24 hours 09/09/21 16:28 Blood Culture - Preliminary Blood No Growth after 24 hours Diabetes panel 09/11/21 09/11/21 Range/Units 06:50 09:19 Potassium 7.0 H* 7.2 H* (3.5-5.1) mmol/L Pituitary panel 09/11/21 09/11/21 Range/Units 06:50 09:19 Potassium 7.0 H* 7.2 H* (3.5-5.1) mmol/L Adrenal panel 09/11/21 09/11/21 Range/Units 06:50 09:19 Potassium 7.0 H* 7.2 H* (3.5-5.1) mmol/L - Imaging Abdominal x-ray: report reviewed (No significant findings) Assessment and Plan Assessment: Resolved abdominal pain. No surgical intervention is planned.
[2021-09-11 11:20] LABS: Glucose,Whole Blood 152 mg/dL (75-99)
[2021-09-11 12:23] LABS: African American GFR (CKD) 19 (>60 ml/min/1.73 sqM); Anion Gap 8 mmol/L; Blood Urea Nitrogen 48 mg/dL (9-20); Calcium 8.1 mg/dL (8.4-10.2); Carbon Dioxide 16 mmol/L (22-30); Chloride 107 mmol/L (98-107); Glucose 219 mg/dL (74-99); Non-African American GFR(CKD) 17 (>60 ml/min/1.73 sqM); Sodium 131 mmol/L (137-145)
[2021-09-11] MEDS: DOXYCYCLINE 50 MG CAP PO SCH ×2 (12:54→21:42)
[2021-09-11] MEDS ORDERED: DEXTROSE 5% IN WATER 1,000 ML with SODIUM BICARB (1 MEQ/ML) 100 ML IV SCH (14:45)
--- NOTE | 2021-09-11 14:45 | P.PN ---
Progress Note - Text Progress Note Date: 09/11/21 Chief Complaint: Low blood pressure This is a 61-year-old patient, follows with Dr. Seda Schneider. Chronic stable medical conditions include diabetes, , hyperlipidemia, obstructive sleep apnea uses CPAP, herniated disc / injections,. Patient was in the hospital from 06/26/2021 through July 16 Admitted with pneumonia, severe hypothermia, acute hypoxic respiratory failure, possible sepsis, possible acute congestive heart failure exacerbation. Was intubated. Was discharged on intermittent BiPAP. [place] to have possible viral pneumonitis. Was negative for COVID. Was discharged to rehab. At the rehab patient had a poor appetite. Not really able to walk. 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 Admitted. Denies any fever and chills. Actually eating better here. Has been having daily bowel movements. Occasional diarrhea. Does feel tired and rundown. Admitted with severe hypotension, acute kidney injury, hypoglycemia. Diuretics were held. IV hydration. PTOT. September 11: Lasted patient abdominal pain. Abdominal x-ray unremarkable. Surgery consulted. Patient's is present. Appetite is actually getting better. Continue IV fluids. Renal function worsening. Start bicarbonate drip. Coughing up some yellow sputum. Add doxycycline for acute bronchitis. Check creatinine kinase. Rule out rhabdomyolysis. Active Medications Acetaminophen (Acetaminophen Tab 325 Mg Tab) 650 mg PO Q6HR PRN PRN Reason: Mild Pain or Fever > 100.5 Albuterol/Ipratropium (Ipratropium-Albuterol 3 Ml Neb) 3 ml INHALATION RT-QID [facility] Last Admin: 09/11/21 11:26 Dose: Not Given Documented by: Apixaban (Apixaban 5 Mg Tab) 5 mg PO BID [facility]; Protocol Last Admin: 09/11/21 09:58 Dose: 5 mg Documented by: Ascorbic Acid (Ascorbic Acid 500 Mg Tab) 1,000 mg PO DAILY@0800 [facility] Last Admin: 09/11/21 09:58 Dose: 1,000 mg Documented by: Aspirin (Aspirin 81 Mg) 81 mg PO DAILY [facility] Last Admin: 09/11/21 09:58 Dose: 81 mg Documented by: Budesonide/Formoterol Fumarate (Symbicort 80-4.5 Mcg Inhaler) 2 puff INHALATION RT-BID [facility] Last Admin: 09/11/21 07:37 Dose: Not Given Documented by: Doxycycline Monohydrate (Doxycycline 50 Mg Cap) 50 mg PO BID [facility]; Protocol Last Admin: 09/11/21 12:54 Dose: 50 mg Documented by: Famotidine (Famotidine 20 Mg Tab) 20 mg PO DAILY [facility] Last Admin: 09/11/21 09:58 Dose: 20 mg Documented by: Folic Acid (Folic Acid 1 Mg Tab) 1 mg PO DAILY [facility] Last Admin: 09/11/21 09:58 Dose: 1 mg Documented by: Gabapentin (Gabapentin 300 Mg Cap) 300 mg PO BID [facility] Last Admin: 09/11/21 09:58 Dose: 300 mg Documented by: Glucose (Dextrose 4 Gm Chewable) 4 gm PO Q10M PRN PRN Reason: CBG < 70 mg/dL Dextrose/Sodium Chloride (Dextrose 5%-Ns Iv Soln) 1,000 mls @ 100 mls/hr IV .Q10H [facility] Last Admin: 09/11/21 10:03 Dose: 100 mls/hr Documented by: Metoprolol Tartrate (Metoprolol Tartrate 12.5 Mg Tab) 12.5 mg PO BID [facility] Last Admin: 09/11/21 10:26 Dose: Not Given Documented by: Multivitamins (Multivitamins, Thera 1 Each Tab) 1 each PO DAILY [facility] Last Admin: 09/11/21 10:26 Dose: 1 each Documented by: Naloxone HCl (Naloxone 0.4 Mg/Ml 1 Ml Vial) 0.2 mg IV Q2M PRN PRN Reason: Opioid Reversal Ondansetron HCl (Ondansetron 4 Mg Tab) 4 mg PO Q6HR PRN PRN Reason: Nausea And Vomiting Last Admin: 09/10/21 20:36 Dose: 4 mg Documented by: Ropinirole HCl (Ropinirole Hcl 1 Mg Tab) 1 mg PO HS [facility] Last Admin: 09/10/21 20:37 Dose: 1 mg Documented by: Tamsulosin HCl (Tamsulosin 0.4 Mg Cap.Er.24h) 0.4 mg PO DAILY@1400 [facility] Last Admin: 09/10/21 13:07 Dose: 0.4 mg Documented by: Past medical history to include: COPD, asthma, diabetes, hypertension, hyperlipidemia, obstructive sleep apnea uses CPAP, herniated disc uses injections, pneumonia June 2021 patient intubated Social history: Alcohol occasionally. Occasional cigar. Marijuana occasionally. . At rehab Family history: Skin cancer, macular degeneration Physical examination: VITAL SIGNS: 98.2, 94, 16, 101/66, 94% room air GENERAL: BMI 34, laying in bed, awake, tired. EYES: Pupils equal. Conjunctiva normal. HEENT: External appearance of nose and ears normal, oral cavity grossly normal. NECK: JVD not raised; masses not palpable. HEART: First and second heart sounds are normal; no edema. LUNGS: Respiratory rate normal; clear to auscultation. ABDOMEN: Soft, nontender, liver spleen not palpable, no masses palpable. PSYCH: Alert and oriented x3; mood and affect a bit low MUSCULOSKELETAL:No Clubbing/cyanosis;muscles-grossly intact NEUROLOGICAL: Cranial nerves grossly intact; no facial asymmetry, decreased body lower extremity. INVESTIGATIONS, reviewed in the clinical context: September 11: Sodium 131 potassium 7.2 BUN 48 creatinine 3.73 White count 6.8 hemoglobin 13.8 platelets 244 sodium 136 potassium 4.9 BUN 40 creatinine 3.41. EKG tracing personally reviewed by me-sinus rhythm, right bundle branch block. Some T waves abnormalities Chest x-ray film personally reviewed by me-possible chronic changes Blood Glucose 36 Assessment and plan: -Severe hypotension, from acute kidney injury from decreased oral intake: Slow improvement IV fluids -Chronic congestive heart failure. From diastolic dysfunction EF 55-60%: Hold diuretics for now -Acute kidney injury prerenal versus ATN: Worsening Creatinine was 0.77 on August 10. Hold diuretics. IV fluids. Consult nephrology. -Rule out rhabdomyolysis -Acute metabolic acidosis from worsening renal failure Add bicarbonate drip -Acute severe hyperkalemia from metabolic acidosis: [facility], bicarbonate drip, 8 units of insulin with dextrose. Calcium gluconate. Telemetry. 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 -Obesity BMI 34 -Clinically depressed Consults psychiatry -Essential hypertension, currently blood pressure running low Hold off antihypertensive -Restless leg syndrome Requip 1 mg daily at bedtime -Diabetes mellitus type 2 on oral hypoglycemic, uncontrolled with hypoglycemia: Better Hold of oral hypoglycemic. Follow Accu-Cheks. D5 0.45 -Hyperlipidemia Hold off Zocor because of muscle weakness -BPH Flomax 0.4 mg daily -COPD Advair 250/50 one puff twice a day. DuoNeb 4 times a day -Chronic medical debility from recent protracted hospitalization PTOT Start sodium bicarbonate drip, check creatinine kinase, add p.m. dose of Lantus. Telemetry. Consult nephrology. Change to renal diet.
--- NOTE | 2021-09-11 15:16 | P.CRDCN ---
History of Present Illness Consult date: 09/11/21 History of present illness: The patient is a 61-year-old male with past medical history of COPD, diabetes, hypertension, dyslipidemia, and obstructive sleep apnea, who presented to the hospital for hypotension and tachycardia. 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 Cardiology was consulted for sinus tachycardia. DIAGNOSTICS: EKG shows sinus tachycardia with right bundle branch block, heart rate of 112 bpm Chest x-ray shows no acute cardiopulmonary disease Acute abdominal series shows nonacute abdomen Vital signs: Blood pressure 111/72, pulse 109, SpO2 96% on room, afebrile Laboratory data: Sodium 131, potassium 7.2, BUN 48, creatinine 3.73 PAST MEDICAL HISTORY: Diabetes, COPD, hypertension, and dyslipidemia REVIEW OF SYSTEMS: No fever or chills. No cough or expectoration. No diaphoresis. Patient denies headache, dizziness, blurred vision, double vision. Patient denies any stomach discomfort. No nausea, vomiting. No hematochezia. No hematemesis. Denies any black stools or blood in his stools. Denies dysuria or hematuria. No muscle weakness or numbness. Negative for chest pain or chest pressure. Negative for dyspnea. Positive for abdominal pain. PHYSICAL EXAMINATION: This is a 61-year-old male in no apparent distress at the time of my examination. HEENT: Head is atraumatic, normocephalic. Pupils are equal, round. Sclerae anicteric. Conjunctivae are clear. Mucous membranes of the mouth are moist. Neck is supple. There is no jugular venous distention. No carotid bruit is heard. CHEST EXAMINATION: Lungs are clear to auscultation. No chest wall tenderness is noted on palpation or with deep breathing. HEART EXAMINATION: Heart regular rate and rhythm. S1, S2 heard. No murmurs, gal lops or rub. ABDOMEN: Soft, nontender. Bowel sounds are heard. No organomegaly noted. EXTREMITIES: 2+ peripheral pulses with no evidence of peripheral edema and no calf tenderness noted. NEUROLOGIC EXAMINATION: Patient is awake, alert and oriented x3. FINAL ASSESSMENT AND PLAN: Hypotension Sinus tachycardia, improved Diabetes Hypertension Hyperkalemia PLAN: No changes in medication regimen Hyperkalemia management No further recommendations from the cardiac standpoint I am dictating on behalf of Dr Fredo Magana's history/physical and assessment/plan. 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 History of Any Multi-Drug Resistant Organisms: None Reported Past Surgical History: Hernia Repair Additional Past Surgical History / Comment(s): hydrocelectomy, vasectomy, colonoscopy/polypectomy-benign. umbilical hernia repair, injections for herniated disc. Past Anesthesia/Blood Transfusion Reactions: No Reported Reaction Additional Past Anesthesia/Blood Transfusion Reaction / Comment(s): clausterphobia. pt stated has never had a blood transfusion Past Psychological History: No Psychological Hx Reported Smoking Status: Never smoker Past Alcohol Use History: Occasional Additional Past Alcohol Use History / Comment(s): approx 2008 briefly smoked the occ cigar. pt has a rare drink Past Drug Use History: Marijuana Additional Drug Use History / Comment(s): approx every 3 months - Past Family History Mother Family Medical History: Cancer, Eye Disorder Additional Family Medical History / Comment(s): skin cancer, macular degeneration Father Family Medical History: Coronary Artery Disease (CAD), Dementia Additional Family Medical History / Comment(s): cabg, stents, uti/sepsis Medications and Allergies Home Medications Medication Instructions Recorded Confirmed Type Aspirin EC [Ecotrin Low Dose] 81 mg PO DAILY 08/23/18 09/09/21 History Tamsulosin [Flomax] 0.4 mg PO DAILY@1400 08/23/18 09/09/21 History glipiZIDE [Glucotrol] 5 mg PO DAILY 08/23/18 09/09/21 History metFORMIN HCL [Glucophage] 1,000 mg PO BID 08/23/18 09/09/21 History rOPINIRole HCL [Requip] 1 mg PO HS 08/23/18 09/09/21 History Famotidine [Pepcid] 20 mg PO BID tab 07/16/21 09/09/21 Rx Folic Acid 1 mg PO DAILY tab 07/16/21 09/09/21 Rx Furosemide [Lasix] 40 mg PO DAILY tab 07/16/21 09/09/21 Rx Ipratropium-Albuterol Nebulize 3 ml INHALATION RT-QID ml 07/16/21 09/09/21 Rx [Duoneb 0.5 mg-3 mg/3 ml Soln] Metoprolol Tartrate [Lopressor] 50 mg PO BID tab 07/16/21 09/09/21 Rx lisinopriL [Zestril] 10 mg PO DAILY #0 tab 07/16/21 09/09/21 Rx Apixaban [Eliquis] 5 mg PO BID 09/09/21 09/09/21 History Ascorbic Acid [Vitamin C] 1,000 mg PO DAILY@0800 09/09/21 09/09/21 History Cholecalciferol [Vitamin D3 (25 50 mcg PO DAILY 09/09/21 09/09/21 History Mcg = 1000 Iu)] Fluticasone/Vilanterol [Breo 1 puff INHALATION RT-DAILY 09/09/21 09/09/21 History Ellipta 100-25 Mcg Inhaler] Gabapentin [Neurontin] 300 mg PO BID 09/09/21 09/09/21 History Multivitamins, Thera [Multivitamin 1 tab PO DAILY 09/09/21 09/09/21 History (formulary)] Potassium Chloride ER [K-Dur 20] 20 meq PO DAILY 09/09/21 09/09/21 History Zinc Sulfate [Orazinc] 220 mg PO DAILY 09/09/21 09/09/21 History hydrALAZINE HCL 25 mg PO BID@0500,1600 09/09/21 09/09/21 History hydrALAZINE HCL 50 mg PO BID@0500,1600 09/09/21 09/09/21 History metroNIDAZOLE [Flagyl] 500 mg PO DAILY 09/09/21 09/09/21 History Allergies Allergy/AdvReac Type Severity Reaction Status Date / Time No Known Allergies Allergy Verified 09/09/21 18:45 Physical Exam Vitals: Vital Signs Temp Pulse Pulse Resp BP Pulse Ox 09/11/21 11:03 98.2 F 94 16 101/66 94 L 09/11/21 09:54 109 H 111/72 96 09/11/21 06:06 118 H 09/11/21 03:53 98.6 F 133 H 18 140/77 96 09/11/21 01:55 98.7 F 139 H 18 119/72 94 L 09/10/21 20:46 98.1 F 119 H 18 113/72 97 09/10/21 20:30 18 09/10/21 20:05 117 H 09/10/21 19:56 115 H 09/10/21 16:03 100 09/10/21 15:56 100 09/10/21 15:54 98 Intake and Output 09/11/21 09/11/21 09/11/21 06:59 14:59 22:59 Intake Total 300 Output Total 400 300 Balance -100 -300 Intake: Oral 300 Output: Urine 400 300 Uretheral (Smith) 400 300 Other: Voiding Method Indwelling Catheter Results 09/09/21 16:28 09/11/21 09:19 Comprehensive Metabolic Panel 09/11/21 09/11/21 Range/Units 06:50 09:19 Sodium 131 L (137-145) mmol/L Potassium 7.0 H* 7.2 H* (3.5-5.1) mmol/L Chloride 107 (98-107) mmol/L Carbon Dioxide 16 L (22-30) mmol/L BUN 48 H (9-20) mg/dL Creatinine 3.73 H (0.66-1.25) mg/dL Glucose 219 H (74-99) mg/dL Calcium 8.1 L (8.4-10.2) mg/dL Current Medications Generic Name Dose Route Start Last Admin Trade Name Freq PRN Reason Stop Dose Admin Acetaminophen 650 mg 09/09/21 19:33 Acetaminophen Tab 325 Mg Tab PO Q6HR PRN Mild Pain or Fever > 100.5 Albuterol/Ipratropium 3 ml 09/10/21 12:00 09/11/21 11:26 Ipratropium-Albuterol 3 Ml Neb INHALATION Not Given RT-QID [facility] Apixaban 5 mg 09/10/21 10:00 09/11/21 09:58 Apixaban 5 Mg Tab PO 5 mg BID ERINN Administration Protocol Ascorbic Acid 1,000 mg 09/11/21 08:00 09/11/21 09:58 Ascorbic Acid 500 Mg Tab PO 1,000 mg DAILY@0800 ERINN Administration Aspirin 81 mg 09/10/21 10:00 09/11/21 09:58 Aspirin 81 Mg PO 81 mg DAILY ERINN Administration Budesonide/Formoterol Fumarate 2 puff 09/10/21 20:00 09/11/21 07:37 Symbicort 80-4.5 Mcg Inhaler INHALATION Not Given RT-BID [facility] Doxycycline Monohydrate 50 mg 09/11/21 12:15 09/11/21 12:54 Doxycycline 50 Mg Cap PO 50 mg BID ERINN Administration Protocol Famotidine 20 mg 09/11/21 09:00 09/11/21 09:58 Famotidine 20 Mg Tab PO 20 mg DAILY ERINN Administration Folic Acid 1 mg 09/11/21 09:00 09/11/21 09:58 Folic Acid 1 Mg Tab PO 1 mg DAILY ERINN Administration Gabapentin 300 mg 09/10/21 21:00 09/11/21 09:58 Gabapentin 300 Mg Cap PO 300 mg BID [facility] Administration Glucose 4 gm 09/10/21 20:16 Dextrose 4 Gm Chewable PO Q10M PRN CBG < 70 mg/dL Sodium Bicarbonate 100 ml/ 1,100 mls @ 100 mls/hr 09/11/21 14:45 Dextrose/Water IV .Q11H [facility] Insulin Detemir 16 unit 09/11/21 21:00 Insulin Detemir (Levemir) 100 Unit/Ml Syr SQ HS [facility] Metoprolol Tartrate 12.5 mg 09/11/21 04:00 09/11/21 10:26 Metoprolol Tartrate 12.5 Mg Tab PO Not Given BID [facility] Multivitamins 1 each 09/11/21 09:00 09/11/21 10:26 Multivitamins, Thera 1 Each Tab PO 1 each DAILY ERINN Administration Naloxone HCl 0.2 mg 09/09/21 19:33 Naloxone 0.4 Mg/Ml 1 Ml Vial IV Q2M PRN Opioid Reversal Ondansetron HCl 4 mg 09/10/21 20:15 09/10/21 20:36 Ondansetron 4 Mg Tab PO 4 mg Q6HR PRN Administration Nausea And Vomiting Ropinirole HCl 1 mg 09/10/21 21:00 09/10/21 20:37 Ropinirole Hcl 1 Mg Tab PO 1 mg HS [facility] Administration Tamsulosin HCl 0.4 mg 09/10/21 14:00 09/10/21 13:07 Tamsulosin 0.4 Mg Cap.Er.24h PO 0.4 mg DAILY@1400 [facility] Administration Intake and Output 09/11/21 09/11/21 09/11/21 06:59 14:59 22:59 Intake Total 300 Output Total 400 300 Balance -100 -300 Intake: Oral 300 Output: Urine 400 300 Uretheral (Smith) 400 300 Other: Voiding Method Indwelling Catheter 09/09/21 16:28 09/11/21 09:19
[2021-09-11 16:05] LABS: Potassium 7.3 mmol/L (3.5-5.1)
[2021-09-11] MEDS: TAMSULOSIN 0.4 MG CAP.ER.24H PO SCH (16:13)
[2021-09-11] MEDS ORDERED: DEXTROSE 50% SYRINGE 50 ML IVP STA ×2 (16:39→21:34)
[2021-09-11 16:59] LABS: Glucose,Whole Blood 152 mg/dL (75-99)
[2021-09-11] MEDS ORDERED: SODIUM BICARB 8.4% 50 ML SYR (1 MEQ/ML) ONE (17:05)
[2021-09-11 17:34] LABS: Glucose,Whole Blood 208 mg/dL (75-99)
[2021-09-11] MEDS: DEXTROSE 5% IN WATER 1,000 ML with SODIUM BICARB (1 MEQ/ML) 150 ML IV SCH (17:49)
[2021-09-11] MEDS: SODIUM ZIRCONIUM CYCLOSILICATE 10 GM PACKET PO SCH ×2 (17:55→21:42)
[2021-09-11] MEDS ORDERED: Magnesium Replacement Protocol 1 EACH MISC MISCELLANE PRN (18:01)
--- NOTE | 2021-09-11 18:27 | XR ---
EXAMINATION TYPE: XR chest 1V DATE OF EXAM: 09/11/2021 COMPARISON: Study HISTORY: Short of breath TECHNIQUE: Single view FINDINGS: Heart is normal. There is some mild blunting left costophrenic angle. Right lung is clear. There are chest leads. There are no hilar masses. There is no heart failure. IMPRESSION: There is some mild pleural reaction at the left lung base that is improved compared to ex am yesterday.
[2021-09-11] MEDS: MAGNESIUM SULFATE-D5W PMX 1 GM in DEXTROSE/WATER 1 100ML.BAG IVPB SCH ×3 (18:42→23:04)
[2021-09-11 20:24] LABS: Glucose,Whole Blood 151 mg/dL (75-99)
[2021-09-11 21:17] LABS: Calcium 8.5 mg/dL (8.4-10.2)
[2021-09-11 21:27] LABS: Potassium 6.7 mmol/L (3.5-5.1)
[2021-09-11] MEDS: INSULIN DETEMIR (LEVEMIR) 100 UNIT/ML SYR SQ SCH (21:44)
[2021-09-11] MEDS ORDERED: MAGNESIUM SULFATE-D5W PMX 1 GM in DEXTROSE/WATER 1 100ML.BAG IVPB SCH (22:00)
[2021-09-11] MEDS ORDERED: LIDOCAINE 1% INJ 10MG/ML (20 ML MDV) ONE (22:21)
[2021-09-11 22:47] LABS: Anisocytosis Slight; Basophils % (A) 0 %; Eosinophils # (A) 0.1 k/uL (0-0.7); Eosinophils % (A) 1 %; HCT 41.1 % (39.0-53.0); Hypochromasia Slight; Lymphocytes # (A) 0.4 k/uL (1.0-4.8); Lymphocytes % (A) 3 %; MCH 27.9 pg (25.0-35.0); MCHC 31.5 g/dL (31.0-37.0); MCV 88.5 fL (80.0-100.0); Mean Platelet Volume 7.6; Monocytes # (A) 0.8 k/uL (0-1.0); Monocytes % (A) 6 %; Neutrophils % (A) 89 %; Platelet Count 197 k/uL (150-450); RBC 4.65 m/uL (4.30-5.90); RDW 16.3 % (11.5-15.5); WBC 12.3 k/uL (3.8-10.6)
--- NOTE | 2021-09-11 23:00 | P.GSCN ---
History of Present Illness History of present illness: 61-year-old white male, I was consulted for urgent placement of dialysis catheter dictation is 7.3 on repeat is 6.7 creatinine is 3.57 patient is admitted with history of pneumonia, but negative patient has a sleep apnea. Patient also has history of diabetes, hypertension, Patient was seen in his room patient is short of breath is on CPAP Chest few crackles the lung bases Abdomen protuberant no no mass or sounds are normal Vascular examination femorals are 1+ bilateral Plan is placement of a dialysis catheter risk and complication discussed Past Medical History Past Medical History: Asthma, COPD, Diabetes Mellitus, Deep Vein Thrombosis (DVT), Hyperlipidemia, Hypertension, Prostate Disorder, Sleep Apnea/CPAP/BIPAP Additional Past Medical History / Comment(s): sleep apnea uses cpap machine, herniated disc-has had injections, past stress test pt stated was wnl, had a pne vaccine approx 3 years ago , 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 History of Any Multi-Drug Resistant Organisms: None Reported Past Surgical History: Hernia Repair Additional Past Surgical History / Comment(s): hydrocelectomy, vasectomy, colonoscopy/polypectomy-benign. umbilical hernia repair, injections for herniated disc. Past Anesthesia/Blood Transfusion Reactions: No Reported Reaction Additional Past Anesthesia/Blood Transfusion Reaction / Comm: clausterphobia. pt stated has never had a blood transfusion Past Psychological History: No Psychological Hx Reported Smoking Status: Never smoker Past Alcohol Use History: Occasional Additional Past Alcohol Use History / Comment(s): approx 2008 briefly smoked the occ cigar. pt has a rare drink Past Drug Use History: Marijuana Additional Drug Use History / Comment(s): approx every 3 months - Past Family History Mother Family Medical History: Cancer, Eye Disorder Additional Family Medical History / Comment(s): skin cancer, macular degeneration Father Family Medical History: Coronary Artery Disease (CAD), Dementia Additional Family Medical History / Comment(s): cabg, stents, uti/sepsis Medications and Allergies Home Medications Medication Instructions Recorded Confirmed Type Aspirin EC [Ecotrin Low Dose] 81 mg PO DAILY 08/23/18 09/09/21 History Tamsulosin [Flomax] 0.4 mg PO DAILY@1400 08/23/18 09/09/21 History glipiZIDE [Glucotrol] 5 mg PO DAILY 08/23/18 09/09/21 History metFORMIN HCL [Glucophage] 1,000 mg PO BID 08/23/18 09/09/21 History rOPINIRole HCL [Requip] 1 mg PO HS 08/23/18 09/09/21 History Famotidine [Pepcid] 20 mg PO BID tab 07/16/21 09/09/21 Rx Folic Acid 1 mg PO DAILY tab 07/16/21 09/09/21 Rx Furosemide [Lasix] 40 mg PO DAILY tab 07/16/21 09/09/21 Rx Ipratropium-Albuterol Nebulize 3 ml INHALATION RT-QID ml 07/16/21 09/09/21 Rx [Duoneb 0.5 mg-3 mg/3 ml Soln] Metoprolol Tartrate [Lopressor] 50 mg PO BID tab 07/16/21 09/09/21 Rx lisinopriL [Zestril] 10 mg PO DAILY #0 tab 07/16/21 09/09/21 Rx Apixaban [Eliquis] 5 mg PO BID 09/09/21 09/09/21 History Ascorbic Acid [Vitamin C] 1,000 mg PO DAILY@0800 09/09/21 09/09/21 History Cholecalciferol [Vitamin D3 (25 50 mcg PO DAILY 09/09/21 09/09/21 History Mcg = 1000 Iu)] Fluticasone/Vilanterol [Breo 1 puff INHALATION RT-DAILY 09/09/21 09/09/21 History Ellipta 100-25 Mcg Inhaler] Gabapentin [Neurontin] 300 mg PO BID 09/09/21 09/09/21 History Multivitamins, Thera [Multivitamin 1 tab PO DAILY 09/09/21 09/09/21 History (formulary)] Potassium Chloride ER [K-Dur 20] 20 meq PO DAILY 09/09/21 09/09/21 History Zinc Sulfate [Orazinc] 220 mg PO DAILY 09/09/21 09/09/21 History hydrALAZINE HCL 25 mg PO BID@0500,1600 09/09/21 09/09/21 History hydrALAZINE HCL 50 mg PO BID@0500,1600 09/09/21 09/09/21 History metroNIDAZOLE [Flagyl] 500 mg PO DAILY 09/09/21 09/09/21 History Allergies Allergy/AdvReac Type Severity Reaction Status Date / Time No Known Allergies Allergy Verified 09/09/21 18:45 Surgical - Exam Vital Signs Temp Pulse Resp Pulse Ox 97.1 F L 115 H 14 97 09/09/21 15:44 09/09/21 15:44 09/09/21 15:44 09/09/21 15:44 Results - Labs 09/11/21 21:38 09/11/21 20:28 Abnormal Lab Results - Last 24 Hours (Table) 09/11/21 09/11/21 09/11/21 Range/Units 01:55 06:50 07:24 WBC (3.8-10.6) k/uL RDW (11.5-15.5) % Neutrophils # (1.3-7.7) k/uL Lymphocytes # (1.0-4.8) k/uL Sodium (137-145) mmol/L Potassium 7.0 H* (3.5-5.1) mmol/L Carbon Dioxide (22-30) mmol/L BUN (9-20) mg/dL Creatinine (0.66-1.25) mg/dL Glucose (74-99) mg/dL POC Glucose (mg/dL) 172 H 199 H (75-99) mg/dL Calcium (8.4-10.2) mg/dL Magnesium 1.2 L (1.6-2.3) mg/dL Creatine Kinase (55-170) U/L 09/11/21 09/11/21 09/11/21 Range/Units 09:19 11:19 14:50 WBC (3.8-10.6) k/uL RDW (11.5-15.5) % Neutrophils # (1.3-7.7) k/uL Lymphocytes # (1.0-4.8) k/uL Sodium 131 L (137-145) mmol/L Potassium 7.2 H* 7.3 H* (3.5-5.1) mmol/L Carbon Dioxide 16 L (22-30) mmol/L BUN 48 H (9-20) mg/dL Creatinine 3.73 H (0.66-1.25) mg/dL Glucose 219 H (74-99) mg/dL POC Glucose (mg/dL) 152 H (75-99) mg/dL Calcium 8.1 L (8.4-10.2) mg/dL Magnesium (1.6-2.3) mg/dL Creatine Kinase 29 L (55-170) U/L 09/11/21 09/11/21 09/11/21 Range/Units 16:59 17:33 20:23 WBC (3.8-10.6) k/uL RDW (11.5-15.5) % Neutrophils # (1.3-7.7) k/uL Lymphocytes # (1.0-4.8) k/uL Sodium (137-145) mmol/L Potassium (3.5-5.1) mmol/L Carbon Dioxide (22-30) mmol/L BUN (9-20) mg/dL Creatinine (0.66-1.25) mg/dL Glucose (74-99) mg/dL POC Glucose (mg/dL) 152 H 208 H 151 H (75-99) mg/dL Calcium (8.4-10.2) mg/dL Magnesium (1.6-2.3) mg/dL Creatine Kinase (55-170) U/L 09/11/21 09/11/21 Range/Units 20:28 21:38 WBC 12.3 H (3.8-10.6) k/uL RDW 16.3 H (11.5-15.5) % Neutrophils # 11.0 H (1.3-7.7) k/uL Lymphocytes # 0.4 L (1.0-4.8) k/uL Sodium 135 L (137-145) mmol/L Potassium 6.7 H* (3.5-5.1) mmol/L Carbon Dioxide 17 L (22-30) mmol/L BUN 50 H (9-20) mg/dL Creatinine 3.57 H (0.66-1.25) mg/dL Glucose 153 H (74-99) mg/dL POC Glucose (mg/dL) (75-99) mg/dL Calcium (8.4-10.2) mg/dL Magnesium (1.6-2.3) mg/dL Creatine Kinase (55-170) U/L Microbiology - Last 24 Hours (Table) 09/09/21 16:28 Blood Culture - Preliminary Blood No Growth after 48 hours 09/09/21 16:28 Blood Culture - Preliminary Blood No Growth after 48 hours Diabetes panel 09/11/21 09/11/21 09/11/21 Range/Units 06:50 09:19 14:50 Sodium 131 L (137-145) mmol/L Potassium 7.0 H* 7.2 H* 7.3 H* (3.5-5.1) mmol/L Chloride 107 (98-107) mmol/L Carbon Dioxide 16 L (22-30) mmol/L BUN 48 H (9-20) mg/dL Creatinine 3.73 H (0.66-1.25) mg/dL Glucose 219 H (74-99) mg/dL Calcium 8.1 L (8.4-10.2) mg/dL 09/11/21 Range/Units 20:28 Sodium 135 L (137-145) mmol/L Potassium 6.7 H* (3.5-5.1) mmol/L Chloride 107 (98-107) mmol/L Carbon Dioxide 17 L (22-30) mmol/L BUN 50 H (9-20) mg/dL Creatinine 3.57 H (0.66-1.25) mg/dL Glucose 153 H (74-99) mg/dL Calcium 8.5 (8.4-10.2) mg/dL Calcium panel 09/11/21 09/11/21 Range/Units 09:19 20:28 Calcium 8.1 L 8.5 (8.4-10.2) mg/dL Pituitary panel 09/11/21 09/11/21 09/11/21 Range/Units 06:50 09:19 14:50 Sodium 131 L (137-145) mmol/L Potassium 7.0 H* 7.2 H* 7.3 H* (3.5-5.1) mmol/L Chloride 107 (98-107) mmol/L Carbon Dioxide 16 L (22-30) mmol/L BUN 48 H (9-20) mg/dL Creatinine 3.73 H (0.66-1.25) mg/dL Glucose 219 H (74-99) mg/dL Calcium 8.1 L (8.4-10.2) mg/dL 09/11/21 Range/Units 20:28 Sodium 135 L (137-145) mmol/L Potassium 6.7 H* (3.5-5.1) mmol/L Chloride 107 (98-107) mmol/L Carbon Dioxide 17 L (22-30) mmol/L BUN 50 H (9-20) mg/dL Creatinine 3.57 H (0.66-1.25) mg/dL Glucose 153 H (74-99) mg/dL Calcium 8.5 (8.4-10.2) mg/dL Adrenal panel 09/11/21 09/11/21 09/11/21 Range/Units 06:50 09:19 14:50 Sodium 131 L (137-145) mmol/L Potassium 7.0 H* 7.2 H* 7.3 H* (3.5-5.1) mmol/L Chloride 107 (98-107) mmol/L Carbon Dioxide 16 L (22-30) mmol/L BUN 48 H (9-20) mg/dL Creatinine 3.73 H (0.66-1.25) mg/dL Glucose 219 H (74-99) mg/dL Calcium 8.1 L (8.4-10.2) mg/dL 09/11/21 Range/Units 20:28 Sodium 135 L (137-145) mmol/L Potassium 6.7 H* (3.5-5.1) mmol/L Chloride 107 (98-107) mmol/L Carbon Dioxide 17 L (22-30) mmol/L BUN 50 H (9-20) mg/dL Creatinine 3.57 H (0.66-1.25) mg/dL Glucose 153 H (74-99) mg/dL Calcium 8.5 (8.4-10.2) mg/dL
--- NOTE | 2021-09-11 23:01 | P.PCN ---
Description of Procedure: Preop diagnosis acute chronic renal failure with high potassium Postoperative same Procedure placement of a dialysis catheter right femoral approach ultrasound guided patient was seen in the disc care unit right groin were prepped and draped applied. Manner. 1% lidocaine for infected groin area ultrasound-guided micropuncture introduced right femoral vein micropuncture guidewire was passed and 4-[place] dilator advanced top the guidewire. Then we passed a regular guidewire without any resistance dilator was advanced on the top the guidewire then we placed a dialysis catheter flush with heparin saline secured with 3-0 nylon dressing applied patient are to the procedure well
[2021-09-12 01:49] LABS: Glucose,Whole Blood 151 mg/dL (75-99)
[2021-09-12] MEDS: DEXTROSE 5% IN WATER 1,000 ML with SODIUM BICARB (1 MEQ/ML) 150 ML IV SCH (05:52)
[2021-09-12 07:13] LABS: Glucose,Whole Blood 157 mg/dL (75-99)
[2021-09-12] MEDS: IPRATROPIUM-ALBUTEROL 3 ML NEB INHALATION SCH ×4 (07:51→19:33)
[2021-09-12 07:58] LABS: Anisocytosis Slight; Basophils % (A) 0 %; Eosinophils % (A) 0 %; HCT 44.6 % (39.0-53.0); HGB 13.7 gm/dL (13.0-17.5); Hypochromasia Moderate; Lymphocytes # (A) 0.7 k/uL (1.0-4.8); Lymphocytes % (A) 6 %; MCH 27.6 pg (25.0-35.0); MCHC 30.7 g/dL (31.0-37.0); MCV 89.9 fL (80.0-100.0); Mean Platelet Volume 7.3; Monocytes # (A) 0.6 k/uL (0-1.0); Monocytes % (A) 5 %; Neutrophils # (A) 10.6 k/uL (1.3-7.7); Neutrophils % (A) 87 %; Platelet Count 195 k/uL (150-450); RBC 4.96 m/uL (4.30-5.90); RDW 16.3 % (11.5-15.5); WBC 12.1 k/uL (3.8-10.6)
[2021-09-12 08:15] LABS: Calcium 8.1 mg/dL (8.4-10.2); Magnesium 1.8 mg/dL (1.6-2.3); Phosphorus 3.7 mg/dL (2.5-4.5); Potassium 5.9 mmol/L (3.5-5.1)
[2021-09-12] MEDS: ACETAMINOPHEN TAB 325 MG TAB PO PRN ×2 (08:26→20:09)
[2021-09-12] MEDS: FAMOTIDINE 20 MG TAB PO SCH (08:27)
[2021-09-12] MEDS: APIXABAN 5 MG TAB PO SCH ×2 (08:27→20:03)
[2021-09-12] MEDS: FOLIC ACID 1 MG TAB PO SCH (08:27)
[2021-09-12] MEDS: GABAPENTIN 300 MG CAP PO SCH ×2 (08:27→20:02)
[2021-09-12] MEDS: MULTIVITAMINS, THERA 1 EACH TAB PO SCH (08:27)
[2021-09-12] MEDS: ASCORBIC ACID 500 MG TAB PO SCH (08:27)
[2021-09-12] MEDS: PANTOPRAZOLE 40 MG/10 ML VIAL IV SCH (08:28)
[2021-09-12] MEDS: METOPROLOL TARTRATE 12.5 MG TAB PO SCH ×2 (08:28→20:03)
[2021-09-12] MEDS: ASPIRIN 81 MG PO SCH (08:28)
[2021-09-12] MEDS: DOXYCYCLINE 50 MG CAP PO SCH ×2 (08:28→20:02)
--- NOTE | 2021-09-12 08:53 | P.NPCON ---
History of Present Illness - Reason for Consult acute renal failure - History of Present Illness Reason for consultation: Acute kidney injury and hyperkalemia History of present illness: Patient is a 61-year-old male seen in consultation for acute kidney injury and hyperkalemia. Patient presented to the hospital on 09/09/2021 due to hypotension. Patient had recent prolonged admission for pneumonia. Patient is not a very reliable historian. Patient states he came to the hospital due to not feeling well. He currently resides at an extended care facility for rehab. Patient's blood pressure this admission has been as low as systolic 70s over diastolics 50s. This morning his blood pressure was 109/84. Patient's potassium level was 4.9 at admission but was up to 7.3 yesterday. This was medically treated multiple times without significant improvement. He subsequently underwent emergent hemodialysis last night. Potassium level this morning is 5.9. Creatinine was as low as 0.77 on 08/10/2021 and was 3.41 this admission. It peaked at 3.73. Urine output has been 20-30 mL an hour. Patient has also been in sinus tachycardia with heart rate in the 140s. I do see lisinopril as well as potassium supplementation listed in his home medication list. Patient has history of diabetes. Vital signs - most recent temperature 101.6F. Tachycardic. General: Sitting up in bed. On nasal cannula. HEENT: Head exam is unremarkable. LUNGS: Breath sounds decreased. HEART: Sinus tachycardia. ABDOMEN: Soft, no distention. Obese. EXTREMITITES: No edema. 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 History of Any Multi-Drug Resistant Organisms: None Reported Past Surgical History: Hernia Repair Additional Past Surgical History / Comment(s): hydrocelectomy, vasectomy, colonoscopy/polypectomy-benign. umbilical hernia repair, injections for herniated disc. Past Anesthesia/Blood Transfusion Reactions: No Reported Reaction Additional Past Anesthesia/Blood Transfusion Reaction / Comment(s): clausterphobia. pt stated has never had a blood transfusion Past Psychological History: No Psychological Hx Reported Smoking Status: Never smoker Past Alcohol Use History: Occasional Additional Past Alcohol Use History / Comment(s): approx 2008 briefly smoked the occ cigar. pt has a rare drink Past Drug Use History: Marijuana Additional Drug Use History / Comment(s): approx every 3 months - Past Family History Mother Family Medical History: Cancer, Eye Disorder Additional Family Medical History / Comment(s): skin cancer, macular degeneration Father Family Medical History: Coronary Artery Disease (CAD), Dementia Additional Family Medical History / Comment(s): cabg, stents, uti/sepsis Medications and Allergies Home Medications Medication Instructions Recorded Confirmed Type Aspirin EC [Ecotrin Low Dose] 81 mg PO DAILY 08/23/18 09/09/21 History Tamsulosin [Flomax] 0.4 mg PO DAILY@1400 08/23/18 09/09/21 History glipiZIDE [Glucotrol] 5 mg PO DAILY 08/23/18 09/09/21 History metFORMIN HCL [Glucophage] 1,000 mg PO BID 08/23/18 09/09/21 History rOPINIRole HCL [Requip] 1 mg PO HS 08/23/18 09/09/21 History Famotidine [Pepcid] 20 mg PO BID tab 07/16/21 09/09/21 Rx Folic Acid 1 mg PO DAILY tab 07/16/21 09/09/21 Rx Furosemide [Lasix] 40 mg PO DAILY tab 07/16/21 09/09/21 Rx Ipratropium-Albuterol Nebulize 3 ml INHALATION RT-QID ml 07/16/21 09/09/21 Rx [Duoneb 0.5 mg-3 mg/3 ml Soln] Metoprolol Tartrate [Lopressor] 50 mg PO BID tab 07/16/21 09/09/21 Rx lisinopriL [Zestril] 10 mg PO DAILY #0 tab 07/16/21 09/09/21 Rx Apixaban [Eliquis] 5 mg PO BID 09/09/21 09/09/21 History Ascorbic Acid [Vitamin C] 1,000 mg PO DAILY@0800 09/09/21 09/09/21 History Cholecalciferol [Vitamin D3 (25 50 mcg PO DAILY 09/09/21 09/09/21 History Mcg = 1000 Iu)] Fluticasone/Vilanterol [Breo 1 puff INHALATION RT-DAILY 09/09/21 09/09/21 History Ellipta 100-25 Mcg Inhaler] Gabapentin [Neurontin] 300 mg PO BID 09/09/21 09/09/21 History Multivitamins, Thera [Multivitamin 1 tab PO DAILY 09/09/21 09/09/21 History (formulary)] Potassium Chloride ER [K-Dur 20] 20 meq PO DAILY 09/09/21 09/09/21 History Zinc Sulfate [Orazinc] 220 mg PO DAILY 09/09/21 09/09/21 History hydrALAZINE HCL 25 mg PO BID@0500,1600 09/09/21 09/09/21 History hydrALAZINE HCL 50 mg PO BID@0500,1600 09/09/21 09/09/21 History metroNIDAZOLE [Flagyl] 500 mg PO DAILY 09/09/21 09/09/21 History Allergies Allergy/AdvReac Type Severity Reaction Status Date / Time No Known Allergies Allergy Verified 09/09/21 18:45 Physical Exam Vitals: Vital Signs Temp Pulse Pulse Pulse Resp BP BP 09/12/21 08:10 135 H 09/12/21 08:00 101.6 F H 131 H 30 H 109/84 09/12/21 07:52 133 H 09/12/21 07:00 133 H 22 119/78 09/12/21 06:45 130 H 19 119/78 09/12/21 06:30 128 H 21 104/74 09/12/21 06:15 126 H 23 104/74 09/12/21 06:00 128 H 24 90/58 09/12/21 05:45 126 H 19 90/58 09/12/21 05:30 126 H 19 104/70 09/12/21 05:15 125 H 21 104/70 09/12/21 05:00 129 H 22 108/88 09/12/21 04:45 130 H 23 108/88 09/12/21 04:30 126 H 21 112/68 09/12/21 04:15 126 H 19 112/68 09/12/21 04:00 99.9 F H 128 H 23 129/103 09/12/21 03:45 128 H 21 129/103 09/12/21 03:30 128 H 25 H 128/95 03/06/22 03:15 125 H 22 128/95 09/12/21 03:00 123 H 18 105/69 09/12/21 02:45 121 H 19 105/69 09/12/21 02:30 123 H 21 78/50 09/12/21 02:15 123 H 19 78/50 09/12/21 02:00 124 H 19 94/63 09/12/21 01:45 126 H 18 85/67 09/12/21 01:34 98.9 F 129 H 20 97/49 09/12/21 01:30 128 H 20 81/49 09/12/21 01:15 129 H 20 86/53 09/12/21 01:00 128 H 20 94/64 09/12/21 00:45 130 H 18 91/67 09/12/21 00:30 131 H 18 96/39 09/12/21 00:15 137 H 22 113/85 09/12/21 00:00 99.0 F 130 H 27 H 104/61 09/11/21 23:45 129 H 21 101/67 09/11/21 23:30 128 H 19 86/40 09/11/21 23:24 128 H 20 87/61 09/11/21 23:15 128 H 22 87/61 09/11/21 23:00 133 H 24 90/61 09/11/21 22:45 134 H 23 83/58 09/11/21 22:30 137 H 22 117/74 09/11/21 22:15 140 H 23 117/74 09/11/21 22:00 144 H 31 H 107/59 09/11/21 21:45 144 H 27 H 107/59 09/11/21 21:30 144 H 19 99/57 09/11/21 21:15 144 H 20 99/57 09/11/21 21:00 146 H 23 109/81 09/11/21 20:45 146 H 22 109/81 09/11/21 20:30 147 H 30 H 127/80 09/11/21 20:15 147 H 27 H 127/80 09/11/21 20:00 99.3 F 146 H 24 121/103 09/11/21 19:45 146 H 25 H 121/103 09/11/21 19:30 142 H 25 H 132/68 09/11/21 19:15 140 H 20 132/68 09/11/21 19:00 140 H 23 102/76 09/11/21 18:45 140 H 27 H 102/76 09/11/21 18:30 140 H 25 H 103/75 09/11/21 18:15 141 H 23 103/75 09/11/21 18:00 141 H 22 93/50 09/11/21 17:40 99.9 F H 146 H 27 H 93/50 09/11/21 11:03 98.2 F 94 16 101/66 09/11/21 09:54 109 H 111/72 Pulse Ox 09/12/21 08:10 09/12/21 08:00 99 09/12/21 07:52 09/12/21 07:00 94 L 09/12/21 06:45 92 L 09/12/21 06:30 95 09/12/21 06:15 96 09/12/21 06:00 94 L 09/12/21 05:45 94 L 09/12/21 05:30 92 L 09/12/21 05:15 93 L 09/12/21 05:00 93 L 09/12/21 04:45 92 L 09/12/21 04:30 93 L 09/12/21 04:15 95 09/12/21 04:00 92 L 09/12/21 03:45 95 09/12/21 03:30 95 09/12/21 03:15 97 09/12/21 03:00 98 09/12/21 02:45 96 09/12/21 02:30 96 09/12/21 02:15 94 L 09/12/21 02:00 94 L 09/12/21 01:45 97 09/12/21 01:34 09/12/21 01:30 89 L 09/12/21 01:15 90 L 09/12/21 01:00 91 L 09/12/21 00:45 91 L 09/12/21 00:30 93 L 09/12/21 00:15 94 L 09/12/21 00:00 96 09/11/21 23:45 99 09/11/21 23:30 93 L 09/11/21 23:24 92 L 09/11/21 23:15 94 L 09/11/21 23:00 92 L 09/11/21 22:45 92 L 09/11/21 22:30 93 L 09/11/21 22:15 89 L 09/11/21 22:00 93 L 09/11/21 21:45 92 L 09/11/21 21:30 91 L 09/11/21 21:15 92 L 09/11/21 21:00 89 L 09/11/21 20:45 88 L 09/11/21 20:30 91 L 09/11/21 20:15 94 L 09/11/21 20:00 92 L 09/11/21 19:45 94 L 09/11/21 19:30 95 09/11/21 19:15 94 L 09/11/21 19:00 94 L 09/11/21 18:45 97 09/11/21 18:30 96 09/11/21 18:15 93 L 09/11/21 18:00 93 L 09/11/21 17:40 96 09/11/21 11:03 94 L 09/11/21 09:54 96 Intake and Output 09/11/21 09/12/21 09/12/21 22:59 06:59 14:59 Intake Total 760 1300 100 Output Total 100 505 25 Balance 660 795 75 Intake: Intake, IV Titration 600 1000 100 Amount Dextrose 5% in Water 1, 500 900 100 000 ml @ 100 mls/hr IV . [id number] ERINN with Sodium Bicarb (1 Meq/ml) 150 ml Rx#:[id number] Magnesium Sulfate-D5w Pmx 100 100 1 gm In Dextrose/Water 1 100ml.bag @ 100 mls/hr IVPB Q1H ERINN Rx#: [id number] Oral 160 Hemodialysis 300 Output: Urine 100 205 25 Hemodialysis 300 Other: Voiding Method Indwelling Catheter Indwelling Catheter Weight 124.6 kg Results - Lab Results Most recent lab results Calcium 8.1 mg/dL (8.4-10.2) L 09/12/21 07:27 Phosphorus 3.7 mg/dL (2.5-4.5) 09/12/21 07:27 Magnesium 1.8 mg/dL (1.6-2.3) 09/12/21 07:27 09/12/21 07:27 09/12/21 07:27 Assessment and Plan Plan: Assessment: 1. Acute kidney injury secondary to ATN secondary to hypotension. Creatinine peaked at 3.73 this admission. Creatinine on 08/10/2021 was 0.77. 2. Hyperkalemia secondary to acute kidney injury, metabolic acidosis, lisinopril and potassium supplementation. Improved postdialysis. 3. Metabolic acidosis secondary to acute kidney injury maintained on bicarb drip. Improved. 4. Diabetes mellitus. 5. Sinus tachycardia. Cardiology following. Plan: Check renal ultrasound. Stop bicarb drip. Start normal saline at 75 mL an hour. 1 L bolus normal saline if hypotensive. Manual blood pressure will be checked. Maintain Lokelma. Low potassium diet. Repeat potassium level this afternoon. Continue to monitor renal function and urine output. Check cortisol level. Patient underwent 1 treatment of hemodialysis on 09/11/2021. Continue to assess for further need on daily basis. Thank you for the consultation. I will continue to follow the patient with you during his hospital stay.
[2021-09-12 08:57] LABS: Hepatitis B Surface AB- Quant 3.5 mIU/mL; Hepatitis B Surface Antibody Nonreactive (Nonreactive)
[2021-09-12] MEDS: SODIUM CHLORIDE 0.9% 1,000 ML IV SCH ×2 (09:21→22:12)
--- NOTE | 2021-09-12 10:40 | US ---
EXAMINATION TYPE: US venous doppler duplex UE LT DATE OF EXAM: 09/12/2021 COMPARISON: NONE CLINICAL HISTORY: swelling. pain and swelling, recent failed IV site in upper left arm SIDE PERFORMED: Left Left Arm: Negative for DVT internal echoes that are not compressible within left basilic vein in up per arm. IV site noted in forearm IMPRESSION: No evidence for DVT. Superficial vein thrombosis difficult to exclude.
--- NOTE | 2021-09-12 10:40 | US ---
EXAMINATION TYPE: US kidneys/renal and bladder DATE OF EXAM: 09/12/2021 COMPARISON: NONE CLINICAL HISTORY: [facility]. ICU pt with [facility] EXAM MEASUREMENTS: Right Kidney: 12.8 x 4.6 x 7.7 cm Left Kidney: 11.2 x 4.6 x 5.5 cm Right Kidney: No hydronephrosis or masses seen Left Kidney: No hydronephrosis or masses seen Bladder: not distended There is no evidence for hydronephrosis at this point in time. No nephrolithiasis is seen. No talia s are identified. The urinary bladder is anechoic. Bilateral ureteral jets are seen. IMPRESSION: No discrete abnormality appreciated.
[2021-09-12] MEDS: SODIUM ZIRCONIUM CYCLOSILICATE 10 GM PACKET PO SCH ×2 (10:49→16:44)
[2021-09-12] MEDS: SYMBICORT 80-4.5 MCG INHALER INHALATION SCH ×2 (10:52→19:34)
[2021-09-12] MEDS: PIPERACILLIN-TAZOBACTAM 3.375 GM in SODIUM CHLORIDE 0.9% 100 ML IVPB SCH ×2 (10:58→20:03)
--- NOTE | 2021-09-12 11:11 | P.PN ---
Progress Note - Text Progress Note Date: 09/12/21 Patient was transferred to the ICU yesterday for dialysis. He is resting comfortably in his bed. He denies any significant abdominal pain. He does states that when he moves he feels a slight twinge in his right upper quadrant. On exam vital signs are stable.. Abdomen soft. There is no significant tenderness on palpation. No surgical intervention is planned.
[2021-09-12] MEDS ORDERED: SODIUM CHLORIDE 0.9% 1,000 ML IV ONE (11:13)
[2021-09-12 11:43] LABS: Glucose,Whole Blood 145 mg/dL (75-99)
--- NOTE | 2021-09-12 12:10 | P.CN ---
Psychiatric Consult - . Consult:: 09/12/21 12:06 IDENTIFYING DATA: Patient is a 61-year-old male who is admitted for hypotension. Psychiatry is consulted for depression. HPI: Denies current or past depressive episodes, manic episodes, or psychosis. Voices usual adjustment issues with being in the hospital. Patient denies any suicidal or homicidal ideations intent or plan. At this time patient denies any auditory or visual hallucinations. Patient denies any flight of ideas racing thoughts and increased in goal directed behavior. PAST PSYCHIATRIC HISTORY: none PMH: COPD, asthma, diabetes, hypertension, hyperlipidemia, MEREDITH uses CPAP, herniated disc uses injections, pneumonia in June 2021 which required him to be intubated ALLERGIES: as per EMR CHEMICAL DEPENDENCY HISTORY: none in past 2-3 years FAMILY PSYCHIATRIC/SUBSTANCE USE HISTORY: Dementia in father SOCIAL HISTORY: lives with MENTAL STATUS EXAM: General Appearance: Patient appears to be older than stated age is alert, [directable, and attempts to cooperate]. In [facility] gown in bed. Behavior: Cooperative Speech: Patient's speech is [fluent and nonpressured.] Mood/Affect: constricted. Suicidality/Homicidality: Patient denies having any homicidal ideation intent or plan. [Denies any suicidal ideations intent or plan] Perceptions: Patient denies any visual hallucinations [and denies any auditory hallucinations] Though content/process: [There is no evidence of any delusional thought content and thought process is linear and goal-directed.] Judgment and insight: fair IMPRESSIONS: On clinical assessment, it appears that patient is having normal adjustment issues to being in the hospital. Patient does not meet the criteria for having a depressive episode. No psychiatric intervention is needed at this time PLAN: -psychiatrically cleared -does not meet criteria for inpatient psychiatrica hospitalization -no psychotropics needed -psychiatry will sign off []
--- NOTE | 2021-09-12 12:32 | P.CNPUL ---
History of Present Illness Consult date: 09/12/21 Chief complaint: Acute kidney injury, hyperkalemia History of present illness: 61-year-old male patient, who was transferred to the hospital on 09/09/2021 from the senior care where he was residing. The patient was sent to medical [place] for further rehabilitation as the patient had a prolonged hospitalization back in June 2021 that extended to July 2021. At that time, the patient had a very complicated course as the patient was intubated and placed on a mechanical ventilator on 06/25/2021. He presented to us hypothermic, had pneumonia and sepsis and complete opacification of the left lung. During the course of his illness, he Is negative for microbial growth and he also tested negative for COVID 19. He underwent bronchoscopy 2 on 06/27/2021 and 07/03/2021. His left lung gradually reexpanded. Post extubation, he was given BiPAP. He is known to have asthma, diabetes, hypertension, hyperlipidemia and obstructive sleep apnea and BPH. He was given aggressive chest PT, percussion, deep breathing and pulmonary toileting and based on his generalized weakness, he was sent for rehabilitation. During this current admission, the patient reports that he was not doing well. He does not get to the point where he was ambulatory. Obviously is a non-reliable historian. He states that he was not feeling well. He was feeling weak. He was not eating much. He did not like the food and his oral intake was quite diminished. He came into the ED with hypotension with a blood pressure of 70/50. The patient's potassium level initially was at 4.9 and the patient was in acute kidney injury. Subsequently, the potassium came up to 7.3. Various treatments done to improve the potassium and failed and ultimately, the patient got transferred to the ICU for hyperkalemia. He was given a dialysis catheter and he received a session of hemodialysis yesterday. This morning, his potassium level is down to 5.9. Creatinine is improving. Urine output is in order of 20-25 mL an hour. He has a dialysis catheter in his right groin. He has no signs of any respiratory distress. Chest x-rays unchanged and there is a stable atelectasis in left lung base. The patient remains about O2 and currently he is a 96% pulse ox. Most recent BP is 88/50 from this morning. He was noted to be tachycardic over the past 24 hours. Ca rdiac rhythm is sinus. White cell count is at low hemoglobin 15.7 and a platelet count of 195. Note. Indication of an underlying infection. The patient's UA was not showing any signs of infection. Blood cultures 2 were sent from admission are negative. He has stage II wounds. No significant cough sputum production. No wheezing. No altered mentation or headache or neck stiffness. In the ICU, give this patient a bolus of 1 L. I started him on IV Zosyn and IV. The ulcers. He is on Levemir insulin 16 units at bedtime along with a sliding scale coverage. Review of Systems Constitutional: Reports fatigue, Reports fever, Reports lethargy, Reports poor appetite, Reports weakness Eyes: denies as per HPI, denies blurred vision, denies bulging eye, denies decreased vision, denies diplopia, denies discharge, denies dry eye, denies irritation, denies itching, denies pain, denies photophobia, denies loss of peripheral vision, denies loss of vision, denies tunnel vision/blind spots Ears: deny: decreased hearing, ear discharge, earache, tinnitus Ears, nose, mouth and throat: Reports as per HPI Breasts: absent: as per HPI, gynecomastia Cardiovascular: Reports decreased exercise tolerance, Reports dyspnea on exertion Respiratory: Reports dyspnea Gastrointestinal: Reports loss of appetite Genitourinary: Reports as per HPI Musculoskeletal: Reports gait dysfunction, Reports muscle weakness Musculoskeletal: absent: ankle pain, ankle stiffness, ankle swelling Integumentary: Reports wounds (Stage II) Neurological: Reports as per HPI Psychiatric: Reports as per HPI Endocrine: Reports as per HPI, Reports fatigue Hematologic/Lymphatic: Reports as per HPI Allergic/Immunologic: Reports as per HPI Past Medical History Past Medical History: COPD, Diabetes Mellitus, Deep Vein Thrombosis (DVT), Hyperlipidemia, Hypertension, Pneumonia, Prostate Disorder, Sleep Apnea/CPAP/BIPAP Additional Past Medical History / Comment(s): sleep apnea uses cpap machine, herniated disc-has had injections, past stress test pt stated was wnl, had a pne vaccine approx 3 years ago , editorial writer unable to verify date at time of this admit. History of Any Multi-Drug Resistant Organisms: None Reported Past Surgical History: Hernia Repair Additional Past Surgical History / Comment(s): hydrocelectomy, vasectomy, colonoscopy/polypectomy-benign. umbilical hernia repair, injections for herniated disc. Past Anesthesia/Blood Transfusion Reactions: No Reported Reaction Additional Past Anesthesia/Blood Transfusion Reaction / Comment(s): clausterphobia. pt stated has never had a blood transfusion Past Psychological History: No Psychological Hx Reported Smoking Status: Never smoker Past Alcohol Use History: Occasional Additional Past Alcohol Use History / Comment(s): approx 2008 briefly smoked the occ cigar. pt has a rare drink Past Drug Use History: Marijuana Additional Drug Use History / Comment(s): approx every 3 months - Past Family History Mother Family Medical History: Cancer, Eye Disorder Additional Family Medical History / Comment(s): skin cancer, macular degeneration Father Family Medical History: Coronary Artery Disease (CAD), Dementia Additional Family Medical History / Comment(s): cabg, stents, uti/sepsis Medications and Allergies Home Medications Medication Instructions Recorded Confirmed Type Aspirin EC [Ecotrin Low Dose] 81 mg PO DAILY 08/23/18 09/09/21 History Tamsulosin [Flomax] 0.4 mg PO DAILY@1400 08/23/18 09/09/21 History glipiZIDE [Glucotrol] 5 mg PO DAILY 08/23/18 09/09/21 History metFORMIN HCL [Glucophage] 1,000 mg PO BID 08/23/18 09/09/21 History rOPINIRole HCL [Requip] 1 mg PO HS 08/23/18 09/09/21 History Famotidine [Pepcid] 20 mg PO BID tab 07/16/21 09/09/21 Rx Folic Acid 1 mg PO DAILY tab 07/16/21 09/09/21 Rx Furosemide [Lasix] 40 mg PO DAILY tab 07/16/21 09/09/21 Rx Ipratropium-Albuterol Nebulize 3 ml INHALATION RT-QID ml 07/16/21 09/09/21 Rx [Duoneb 0.5 mg-3 mg/3 ml Soln] Metoprolol Tartrate [Lopressor] 50 mg PO BID tab 07/16/21 09/09/21 Rx lisinopriL [Zestril] 10 mg PO DAILY #0 tab 07/16/21 09/09/21 Rx Apixaban [Eliquis] 5 mg PO BID 09/09/21 09/09/21 History Ascorbic Acid [Vitamin C] 1,000 mg PO DAILY@0800 09/09/21 09/09/21 History Cholecalciferol [Vitamin D3 (25 50 mcg PO DAILY 09/09/21 09/09/21 History Mcg = 1000 Iu)] Fluticasone/Vilanterol [Breo 1 puff INHALATION RT-DAILY 09/09/21 09/09/21 History Ellipta 100-25 Mcg Inhaler] Gabapentin [Neurontin] 300 mg PO BID 09/09/21 09/09/21 History Multivitamins, Thera [Multivitamin 1 tab PO DAILY 09/09/21 09/09/21 History (formulary)] Potassium Chloride ER [K-Dur 20] 20 meq PO DAILY 09/09/21 09/09/21 History Zinc Sulfate [Orazinc] 220 mg PO DAILY 09/09/21 09/09/21 History hydrALAZINE HCL 25 mg PO BID@0500,1600 09/09/21 09/09/21 History hydrALAZINE HCL 50 mg PO BID@0500,1600 09/09/21 09/09/21 History metroNIDAZOLE [Flagyl] 500 mg PO DAILY 09/09/21 09/09/21 History Allergies Allergy/AdvReac Type Severity Reaction Status Date / Time No Known Allergies Allergy Verified 09/09/21 18:45 Physical Exam Vitals: Vital Signs Temp Pulse Pulse Pulse Resp BP BP 09/12/21 08:10 135 H 09/12/21 08:00 101.6 F H 131 H 30 H 109/84 09/12/21 07:52 133 H 09/12/21 07:00 133 H 22 119/78 09/12/21 06:45 130 H 19 119/78 09/12/21 06:30 128 H 21 104/74 09/12/21 06:15 126 H 23 104/74 09/12/21 06:00 128 H 24 90/58 09/12/21 05:45 126 H 19 90/58 09/12/21 05:30 126 H 19 104/70 09/12/21 05:15 125 H 21 104/70 09/12/21 05:00 129 H 22 108/88 09/12/21 04:45 130 H 23 108/88 09/12/21 04:30 126 H 21 112/68 03/06/22 04:15 126 H 19 112/68 09/12/21 04:00 99.9 F H 128 H 23 129/103 09/12/21 03:45 128 H 21 129/103 09/12/21 03:30 128 H 25 H 128/95 09/12/21 03:15 125 H 22 128/95 09/12/21 03:00 123 H 18 105/69 09/12/21 02:45 121 H 19 105/69 09/12/21 02:30 123 H 21 78/50 09/12/21 02:15 123 H 19 78/50 09/12/21 02:00 124 H 19 94/63 09/12/21 01:45 126 H 18 85/67 09/12/21 01:34 98.9 F 129 H 20 97/49 09/12/21 01:30 128 H 20 81/49 09/12/21 01:15 129 H 20 86/53 09/12/21 01:00 128 H 20 94/64 09/12/21 00:45 130 H 18 91/67 09/12/21 00:30 131 H 18 96/39 09/12/21 00:15 137 H 22 113/85 09/12/21 00:00 99.0 F 130 H 27 H 104/61 09/11/21 23:45 129 H 21 101/67 09/11/21 23:30 128 H 19 86/40 09/11/21 23:24 128 H 20 87/61 09/11/21 23:15 128 H 22 87/61 09/11/21 23:00 133 H 24 90/61 09/11/21 22:45 134 H 23 83/58 09/11/21 22:30 137 H 22 117/74 09/11/21 22:15 140 H 23 117/74 09/11/21 22:00 144 H 31 H 107/59 09/11/21 21:45 144 H 27 H 107/59 09/11/21 21:30 144 H 19 99/57 09/11/21 21:15 144 H 20 99/57 09/11/21 21:00 146 H 23 109/81 09/11/21 20:45 146 H 22 109/81 09/11/21 20:30 147 H 30 H 127/80 09/11/21 20:15 147 H 27 H 127/80 09/11/21 20:00 99.3 F 146 H 24 121/103 09/11/21 19:45 146 H 25 H 121/103 09/11/21 19:30 142 H 25 H 132/68 09/11/21 19:15 140 H 20 132/68 09/11/21 19:00 140 H 23 102/76 09/11/21 18:45 140 H 27 H 102/76 09/11/21 18:30 140 H 25 H 103/75 09/11/21 18:15 141 H 23 103/75 09/11/21 18:00 141 H 22 93/50 09/11/21 17:40 99.9 F H 146 H 27 H 93/50 09/11/21 11:03 98.2 F 94 16 101/66 09/11/21 09:54 109 H 111/72 Pulse Ox 09/12/21 08:10 09/12/21 08:00 99 09/12/21 07:52 09/12/21 07:00 94 L 09/12/21 06:45 92 L 09/12/21 06:30 95 09/12/21 06:15 96 09/12/21 06:00 94 L 09/12/21 05:45 94 L 09/12/21 05:30 92 L 09/12/21 05:15 93 L 09/12/21 05:00 93 L 09/12/21 04:45 92 L 09/12/21 04:30 93 L 09/12/21 04:15 95 09/12/21 04:00 92 L 09/12/21 03:45 95 09/12/21 03:30 95 09/12/21 03:15 97 09/12/21 03:00 98 09/12/21 02:45 96 09/12/21 02:30 96 09/12/21 02:15 94 L 09/12/21 02:00 94 L 09/12/21 01:45 97 09/12/21 01:34 09/12/21 01:30 89 L 09/12/21 01:15 90 L 09/12/21 01:00 91 L 09/12/21 00:45 91 L 09/12/21 00:30 93 L 09/12/21 00:15 94 L 09/12/21 00:00 96 09/11/21 23:45 99 09/11/21 23:30 93 L 09/11/21 23:24 92 L 09/11/21 23:15 94 L 09/11/21 23:00 92 L 09/11/21 22:45 92 L 09/11/21 22:30 93 L 09/11/21 22:15 89 L 09/11/21 22:00 93 L 09/11/21 21:45 92 L 09/11/21 21:30 91 L 09/11/21 21:15 92 L 09/11/21 21:00 89 L 09/11/21 20:45 88 L 09/11/21 20:30 91 L 09/11/21 20:15 94 L 09/11/21 20:00 92 L 09/11/21 19:45 94 L 09/11/21 19:30 95 09/11/21 19:15 94 L 09/11/21 19:00 94 L 09/11/21 18:45 97 09/11/21 18:30 96 09/11/21 18:15 93 L 09/11/21 18:00 93 L 09/11/21 17:40 96 09/11/21 11:03 94 L 09/11/21 09:54 96 Intake and Output 09/11/21 09/12/21 09/12/21 22:59 06:59 14:59 Intake Total 760 1300 100 Output Total 100 505 25 Balance 660 795 75 Intake: Intake, IV Titration 600 1000 100 Amount Dextrose 5% in Water 1, 500 900 100 000 ml @ 100 mls/hr IV . [id number] ERINN with Sodium Bicarb (1 Meq/ml) 150 ml Rx#:[id number] Magnesium Sulfate-D5w Pmx 100 100 1 gm In Dextrose/Water 1 100ml.bag @ 100 mls/hr IVPB Q1H ERINN Rx#: [id number] Oral 160 Hemodialysis 300 Output: Urine 100 205 25 Hemodialysis 300 Other: Voiding Method Indwelling Catheter Indwelling Catheter Weight 124.6 kg Gen. appearance the patient is morbidly obese, comfortable not environment that is 41. Head exam was generally normal. There was no scleral icterus or corneal arcus. Mucous membranes were moist. Neck was supple and without jugular venous distension, thyromegaly, or carotid bruits. Carotids were easily palpable bilaterally. There was no adenopathy. Cardiac exam revealed the PMI to be normally situated and sized. The rhythm was regular and no extrasystoles were noted during several minutes of auscultation. The first and second heart sounds were normal and physiologic splitting of the second heart sound was noted. There were no murmurs, rubs, clicks, or gallops. Lungs: Diminished specially left lung base. Abdomen is obese soft nontender. Organs cannot be accurately palpated. No direct tenderness. No rebound tenderness. No guarding. Extremities show diminished pulses and the patient has trace edema. No cyanosis or clubbing. The patient has a temporary dialysis cath in his right femoral vein. Neurologically, exam is nonfocal and the patient is generalized motor weakness in all 4 extremities. No neck stiffness. Examination of the skin revealed no evidence of significant rashes, suspicious appearing nevi or other concerning lesions. Stage 2 wound in the back Results - Laboratory Findings CBC and BMP: 09/12/21 07:27 09/12/21 07:27 PT/INR, D-dimer PT 12.2 sec (9.0-12.0) H 09/09/21 16:28 INR 1.1 (<1.2) 09/09/21 16:28 Abnormal lab findings: Abnormal Labs 09/09/21 09/09/21 09/09/21 16:28 16:28 16:28 WBC MCHC RDW 16.3 H Neutrophils # Lymphocytes # Lymphocytes # (Manual) 0.88 L PT 12.2 H Sodium 136 L Potassium Carbon Dioxide 18 L BUN 40 H Creatinine 3.41 H Glucose 36 L* POC Glucose (mg/dL) Calcium Magnesium 1.3 L Creatine Kinase Total Protein 6.1 L Albumin 3.3 L Amorphous Sediment Urine Bacteria 09/09/21 09/09/21 09/09/21 17:35 19:39 20:06 WBC MCHC RDW Neutrophils # Lymphocytes # Lymphocytes # (Manual) PT Sodium Potassium Carbon Dioxide BUN Creatinine Glucose POC Glucose (mg/dL) 52 L 55 L 126 H Calcium Magnesium Creatine Kinase Total Protein Albumin Amorphous Sediment Urine Bacteria 09/10/21 09/10/21 09/10/21 06:21 07:13 07:40 WBC MCHC RDW Neutrophils # Lymphocytes # Lymphocytes # (Manual) PT Sodium Potassium Carbon Dioxide BUN Creatinine Glucose POC Glucose (mg/dL) 36 L 37 L Calcium Magnesium Creatine Kinase Total Protein Albumin Amorphous Sediment Moderate H Urine Bacteria Few H 09/10/21 09/10/21 09/10/21 08:03 08:28 08:55 WBC MCHC RDW Neutrophils # Lymphocytes # Lymphocytes # (Manual) PT Sodium Potassium Carbon Dioxide BUN Creatinine Glucose POC Glucose (mg/dL) 52 L 62 L 68 L Calcium Magnesium Creatine Kinase Total Protein Albumin Amorphous Sediment Urine Bacteria 09/10/21 09/10/21 09/10/21 10:08 17:21 17:43 WBC MCHC RDW Neutrophils # Lymphocytes # Lymphocytes # (Manual) PT Sodium Potassium Carbon Dioxide BUN Creatinine Glucose POC Glucose (mg/dL) 74 L 67 L 71 L Calcium Magnesium Creatine Kinase Total Protein Albumin Amorphous Sediment Urine Bacteria 09/10/21 09/11/21 09/11/21 19:30 01:55 06:50 WBC MCHC RDW Neutrophils # Lymphocytes # Lymphocytes # (Manual) PT Sodium Potassium 7.0 H* Carbon Dioxide BUN Creatinine Glucose POC Glucose (mg/dL) 108 H 172 H Calcium Magnesium 1.2 L Creatine Kinase Total Protein Albumin Amorphous Sediment Urine Bacteria 09/11/21 09/11/21 09/11/21 07:24 09:19 11:19 WBC MCHC RDW Neutrophils # Lymphocytes # Lymphocytes # (Manual) PT Sodium 131 L Potassium 7.2 H* Carbon Dioxide 16 L BUN 48 H Creatinine 3.73 H Glucose 219 H POC Glucose (mg/dL) 199 H 152 H Calcium 8.1 L Magnesium Creatine Kinase Total Protein Albumin Amorphous Sediment Urine Bacteria 09/11/21 09/11/21 09/11/21 14:50 16:59 17:33 WBC MCHC RDW Neutrophils # Lymphocytes # Lymphocytes # (Manual) PT Sodium Potassium 7.3 H* Carbon Dioxide BUN Creatinine Glucose POC Glucose (mg/dL) 152 H 208 H Calcium Magnesium Creatine Kinase 29 L Total Protein Albumin Amorphous Sediment Urine Bacteria 09/11/21 09/11/21 09/11/21 20:23 20:28 21:38 WBC 12.3 H MCHC RDW 16.3 H Neutrophils # 11.0 H Lymphocytes # 0.4 L Lymphocytes # (Manual) PT Sodium 135 L Potassium 6.7 H* Carbon Dioxide 17 L BUN 50 H Creatinine 3.57 H Glucose 153 H POC Glucose (mg/dL) 151 H Calcium Magnesium Creatine Kinase Total Protein Albumin Amorphous Sediment Urine Bacteria 09/12/21 09/12/2109/12/22 01:47 07:12 07:27 WBC MCHC RDW Neutrophils # Lymphocytes # Lymphocytes # (Manual) PT Sodium 134 L Potassium 5.9 H Carbon Dioxide BUN 38 H Creatinine 2.76 H Glucose 160 H POC Glucose (mg/dL) 151 H 157 H Calcium 8.1 L Magnesium Creatine Kinase 40 L Total Protein Albumin Amorphous Sediment Urine Bacteria 09/12/21 07:27 WBC 12.1 H MCHC 30.7 L RDW 16.3 H Neutrophils # 10.6 H Lymphocytes # 0.7 L Lymphocytes # (Manual) PT Sodium Potassium Carbon Dioxide BUN Creatinine Glucose POC Glucose (mg/dL) Calcium Magnesium Creatine Kinase Total Protein Albumin Amorphous Sediment Urine Bacteria - Diagnostic Findings Chest x-ray: image reviewed Assessment and Plan Plan: 1 acute kidney injury, under investigation. The patient was oliguric and the patient was acute hyperkalemic and did not respond to conventional treatments. The patient ultimately was started on hemodialysis and the physician was done yesterday and the patient is producing some urine output today the potassium level is improved. Also, the patient was taken off the bicarb drip and the patient is currently on normal saline infusion 2 non-anion gap metabolic acidosis, currently on a normal saline infusion and a bicarb infusion has been discontinued. Serum bicarbs up to 24 3 acute hyperkalemia 4 acute febrile and is currently under investigation. Cultures of been negative 5 hypotension and sinus tachycardia, could be related to underlying infection/sepsis, currently under investigation 6 morbid obesity with BMI 41.8 7 history of acute hypoxic respiratory failure was on a mechanical ventilation back in mid June 2021 with left lung collapse, post bronchoscopy 2 8 bronchial asthma 5 diabetes mellitus 10 hyperlipidemia 11 hypertension 12 obstructive sleep apnea maintained on CPAP therapy 13 BPH Plan Dialysis per nephrology Monitor electrolytes and potassium level Ultrasound the kidneys Discontinue bicarb infusion up with the patient and no associated effusion at the rate of 75 mL an hour Give the patient another bolus of 1 L Use norepinephrine infusion if needed should the patient become tachycardic Start The patient IV Zosyn as an empiric antibiotic coverage Repeat the blood cultures 2 Chest x-ray was noted and there is no evidence of an acute pneumonia and the findings are essentially chronic with some atelectatic changes and left lung base Resume home medications We'll continue to follow in the ICU. Time with Patient: Greater than 30
[2021-09-12] MEDS: TAMSULOSIN 0.4 MG CAP.ER.24H PO SCH (14:11)
--- NOTE | 2021-09-12 15:17 | P.PN ---
Progress Note - Text Progress Note Date: 09/12/21 Chief Complaint: Low blood pressure This is a 61-year-old patient, follows with Dr. Seda Schneider. Chronic stable medical conditions include diabetes, , hyperlipidemia, obstructive sleep apnea uses CPAP, herniated disc / injections,. Patient was in the hospital from 06/26/2021 through July 16 Admitted with pneumonia, severe hypothermia, acute hypoxic respiratory failure, possible sepsis, possible acute congestive heart failure exacerbation. Was intubated. Was discharged on intermittent BiPAP. Melvin to have possible viral pneumonitis. Was negative for COVID. Was discharged to rehab. At the rehab patient had a poor appetite. Not really able to walk. 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 Admitted. Denies any fever and chills. Actually eating better here. Has been having daily bowel movements. Occasional diarrhea. Does feel tired and rundown. Admitted with severe hypotension, acute kidney injury, hypoglycemia. Diuretics were held. IV hydration. PTOT. September 11: Lasted patient abdominal pain. Abdominal x-ray unremarkable. Surgery consulted. Patient's is present. Appetite is actually getting better. Continue IV fluids. Renal function worsening. Start bicarbonate drip. Coughing up some yellow sputum. Add doxycycline for acute bronchitis. Check creatinine kinase. Rule out rhabdomyolysis. September 12: Patient potassium persisted to be high yesterday. In spite of having several medications. Moved to the ICU. Nephrology consulted. Dialysis catheter was placed and patient received hemodialysis late last night. Poor appetite. Tired. Seen by psychiatry. Melvin to have adjustment disorder. Active Medications Acetaminophen (Acetaminophen Tab 325 Mg Tab) 650 mg PO Q6HR PRN PRN Reason: Mild Pain or Fever > 100.5 Last Admin: 09/12/21 08:26 Dose: 650 mg Documented by: Albuterol/Ipratropium (Ipratropium-Albuterol 3 Ml Neb) 3 ml INHALATION RT-QID [facility] Last Admin: 09/12/21 10:52 Dose: 3 ml Documented by: Apixaban (Apixaban 5 Mg Tab) 5 mg PO BID [facility]; Protocol Last Admin: 09/12/21 08:27 Dose: 5 mg Documented by: Ascorbic Acid (Ascorbic Acid 500 Mg Tab) 1,000 mg PO DAILY@0800 [facility] Last Admin: 09/12/21 08:27 Dose: 1,000 mg Documented by: Aspirin (Aspirin 81 Mg) 81 mg PO DAILY [facility] Last Admin: 09/12/21 08:28 Dose: 81 mg Documented by: Budesonide/Formoterol Fumarate (Symbicort 80-4.5 Mcg Inhaler) 2 puff INHALATION RT-BID [facility] Last Admin: 09/12/21 10:52 Dose: 2 puff Documented by: Doxycycline Monohydrate (Doxycycline 50 Mg Cap) 50 mg PO BID [facility]; Protocol Last Admin: 09/12/21 08:28 Dose: 50 mg Documented by: Famotidine (Famotidine 20 Mg Tab) 20 mg PO DAILY [facility] Last Admin: 09/12/21 08:27 Dose: 20 mg Documented by: Folic Acid (Folic Acid 1 Mg Tab) 1 mg PO DAILY [facility] Last Admin: 09/12/21 08:27 Dose: 1 mg Documented by: Gabapentin (Gabapentin 300 Mg Cap) 300 mg PO BID [facility] Last Admin: 09/12/21 08:27 Dose: 300 mg Documented by: Glucose (Dextrose 4 Gm Chewable) 4 gm PO Q10M PRN PRN Reason: CBG < 70 mg/dL Sodium Chloride (Saline 0.9%) 1,000 mls @ 75 mls/hr IV .[id number] [facility] Last Admin: 09/12/21 09:21 Dose: 75 mls/hr Documented by: Piperacillin Sod/Tazobactam (Sod 3.375 gm/ Sodium Chloride) 100 mls @ 25 mls/hr IVPB Q12HR [facility]; Protocol Last Admin: 09/12/21 10:58 Dose: 25 mls/hr Documented by: Insulin Detemir (Insulin Detemir (Levemir) 100 Unit/Ml Syr) 16 unit SQ HS [facility] Last Admin: 09/11/21 21:44 Dose: 16 unit Documented by: Metoprolol Tartrate (Metoprolol Tartrate 12.5 Mg Tab) 12.5 mg PO BID [facility] Last Admin: 09/12/21 08:28 Dose: 12.5 mg Documented by: Miscellaneous Information (Magnesium Replacement Protocol 1 Each Misc) 1 each MISCELLANE DAILY PRN; Protocol PRN Reason: Per Protocol Multivitamins (Multivitamins, Thera 1 Each Tab) 1 each PO DAILY [facility] Last Admin: 09/12/21 08:27 Dose: 1 each Documented by: Naloxone HCl (Naloxone 0.4 Mg/Ml 1 Ml Vial) 0.2 mg IV Q2M PRN PRN Reason: Opioid Reversal Ondansetron HCl (Ondansetron 4 Mg Tab) 4 mg PO Q6HR PRN PRN Reason: Nausea And Vomiting Last Admin: 09/10/21 20:36 Dose: 4 mg Documented by: Pantoprazole Sodium (Pantoprazole 40 Mg/10 Ml Vial) 40 mg IV DAILY [facility] Last Admin: 09/12/21 08:28 Dose: 40 mg Documented by: Ropinirole HCl (Ropinirole Hcl 1 Mg Tab) 1 mg PO HS [facility] Last Admin: 09/11/21 21:42 Dose: 1 mg Documented by: Sodium Zirconium Cyclosilicate (Sodium Zirconium Cyclosilicate 10 Gm Packet) 10 gm PO TID [facility] Stop: 09/12/21 16:01 Last Admin: 09/12/21 10:49 Dose: 10 gm Documented by: Tamsulosin HCl (Tamsulosin 0.4 Mg Cap.Er.24h) 0.4 mg PO DAILY@1400 [facility] Last Admin: 09/12/21 14:11 Dose: 0.4 mg Documented by: Past medical history to include: COPD, asthma, diabetes, hypertension, hyperlipidemia, obstructive sleep apnea uses CPAP, herniated disc uses injections, pneumonia June 2021 patient intubated Social history: Alcohol occasionally. Occasional cigar. Marijuana occasionally. . At rehab Family history: Skin cancer, macular degeneration Physical examination: VITAL SIGNS: 101.6, 1:30, 30, 109/84, 99% room air GENERAL: laying in bed, awake, tired. EYES: Pupils equal. Conjunctiva normal. HEENT: External appearance of nose and ears normal, oral cavity grossly normal. NECK: JVD not raised; masses not palpable. HEART: First and second heart sounds are normal; no edema. LUNGS: Respiratory rate normal; clear to auscultation. ABDOMEN: Soft, nontender, liver spleen not palpable, no masses palpable. PSYCH: Alert and oriented x3; mood and affect low MUSCULOSKELETAL:No Clubbing/cyanosis;muscles-grossly intact NEUROLOGICAL: Cranial nerves grossly intact; no facial asymmetry, decreased body lower extremity. INVESTIGATIONS, reviewed in the clinical context: September 12: White count 12.1-year-old and 30.7 sodium 134 potassium 5.9 BUN 38 creatinine 2.76 September 11: Sodium 131 potassium 7.2 BUN 48 creatinine 3.73 White count 6.8 hemoglobin 13.8 platelets 244 sodium 136 potassium 4.9 BUN 40 creatinine 3.41. EKG tracing personally reviewed by me-sinus rhythm, right bundle branch block. Some T waves abnormalities Chest x-ray film personally reviewed by me-possible chronic changes Blood Glucose 36 Assessment and plan: -Severe hypotension, from acute kidney injury from decreased oral intake: Slow improvement IV fluids -Chronic congestive heart failure. From diastolic dysfunction EF 55-60%: Hold diuretics for now -Acute kidney injury prerenal versus ATN: Worsening Started on hemodialysis last night. -Acute metabolic acidosis from worsening renal failure: Better bicarbonate drip -Acute severe hyperkalemia from metabolic acidosis: Slow to respond lokelma, bicarbonate drip, getting hemodialysis. Telemetry. -Sepsis. Source unclear. Empirically started on Zosyn. 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 -Obesity BMI 34 -Clinically depressed Consults psychiatry -Essential hypertension, currently blood pressure running low Hold off antihypertensive -Restless leg syndrome Requip 1 mg daily at bedtime -Diabetes mellitus type 2 on oral hypoglycemic, uncontrolled with hypoglycemia: Better Hold of oral hypoglycemic. Follow Accu-Cheks. D5 0.45 -Hyperlipidemia Hold off Zocor because of muscle weakness -BPH Flomax 0.4 mg daily -COPD Advair 250/50 one puff twice a day. DuoNeb 4 times a day -Chronic medical debility from recent protracted hospitalization PTOT ICU. Last night hemodialysis catheter placement patient started receiving hemodialysis. Sepsis. Started on IV Zosyn. Care was discussed with the patient and family at the bedside.
[2021-09-12 16:41] LABS: Glucose,Whole Blood 144 mg/dL (75-99)
[2021-09-12] MEDS: ONDANSETRON 4 MG TAB PO PRN (17:12)
[2021-09-12 19:55] LABS: Glucose,Whole Blood 162 mg/dL (75-99)
[2021-09-12] MEDS: INSULIN DETEMIR (LEVEMIR) 100 UNIT/ML SYR SQ SCH (20:04)
[2021-09-12] MEDS ORDERED: DEXTROSE 50% SYRINGE 50 ML IVP STA (20:37)
[2021-09-12] MEDS ORDERED: INSULIN REGULAR 100 UNIT/ML VIAL (IV) IV ONE (20:37)
[2021-09-12] MEDS ORDERED: FUROSEMIDE 10 MG/ML 4 ML VIAL IV STA (20:38)
[2021-09-12 21:26] LABS: Hepatitis B Surface Antigen Nonreactive (Nonreactive)
[2021-09-13 06:57] LABS: Anisocytosis Slight; Basophils % (A) 0 %; Eosinophils # (A) 0.1 k/uL (0-0.7); Eosinophils % (A) 1 %; HCT 35.5 % (39.0-53.0); HGB 11.3 gm/dL (13.0-17.5); Hypochromasia Moderate; Lymphocytes # (A) 0.7 k/uL (1.0-4.8); Lymphocytes % (A) 9 %; MCH 28.7 pg (25.0-35.0); MCHC 31.9 g/dL (31.0-37.0); MCV 90.2 fL (80.0-100.0); Mean Platelet Volume 7.5; Monocytes # (A) 0.4 k/uL (0-1.0); Monocytes % (A) 5 %; Neutrophils # (A) 6.3 k/uL (1.3-7.7); Neutrophils % (A) 83 %; Platelet Count 194 k/uL (150-450); RBC 3.94 m/uL (4.30-5.90); RDW 16.6 % (11.5-15.5); WBC 7.6 k/uL (3.8-10.6)
[2021-09-13 07:00] LABS: Glucose,Whole Blood 79 mg/dL (75-99)
[2021-09-13 07:45] LABS: Calcium 6.8 mg/dL (8.4-10.2)
[2021-09-13 07:54] LABS: Potassium 4.9 mmol/L (3.5-5.1)
[2021-09-13] MEDS: APIXABAN 5 MG TAB PO SCH ×2 (08:33→21:21)
[2021-09-13] MEDS: FAMOTIDINE 20 MG TAB PO SCH ×2 (08:33→09:37)
[2021-09-13] MEDS: FOLIC ACID 1 MG TAB PO SCH (08:33)
[2021-09-13] MEDS: DOXYCYCLINE 50 MG CAP PO SCH ×2 (08:33→21:21)
[2021-09-13] MEDS: ASCORBIC ACID 500 MG TAB PO SCH (08:33)
[2021-09-13] MEDS: GABAPENTIN 300 MG CAP PO SCH (08:33)
[2021-09-13] MEDS: PANTOPRAZOLE 40 MG/10 ML VIAL IV SCH (08:34)
[2021-09-13] MEDS: METOPROLOL TARTRATE 12.5 MG TAB PO SCH ×2 (08:34→20:43)
[2021-09-13] MEDS: MULTIVITAMINS, THERA 1 EACH TAB PO SCH (08:34)
[2021-09-13] MEDS: PIPERACILLIN-TAZOBACTAM 3.375 GM in SODIUM CHLORIDE 0.9% 100 ML IVPB SCH ×2 (08:34→21:21)
[2021-09-13] MEDS: IPRATROPIUM-ALBUTEROL 3 ML NEB INHALATION SCH ×4 (08:43→20:58)
[2021-09-13] MEDS: SYMBICORT 80-4.5 MCG INHALER INHALATION SCH ×2 (08:43→20:58)
--- NOTE | 2021-09-13 09:50 | ECHOF ---
Referral Reason:persistent tachycardia MEASUREMENTS -------- HEIGHT: 172.7 cm WEIGHT: 129.7 kg BP: RVIDd: 4.4 cm (< 3.3) IVSd: 1.4 cm (0.6 - 1.1) LVIDd: 3.0 cm (3.9 - 5.3) LVPWd: 1.6 cm (0.6 - 1.1) IVSs: 1.5 cm LVIDs: 1.2 cm LVPWs: 1.8 cm Ao Diam: 3.8 cm (2.0 - 3.7) AV Cusp: 2.2 cm (1.5 - 2.6) LA Diam: 3.5 cm (2.7 - 3.8) MV E Jason: 0.35 m/s MV DecT: 121 ms MV A Jason: 0.38 m/s MV E/A Ratio: 0.92 RAP: 5.00 mmHg RVSP: 9.49 mmHg FINDINGS -------- Resting tachycardia (HR>100bpm). This was a technically difficult study with suboptimal views. The left ventricular size is normal. There is moderate concentric left ventricular hypertrophy. O verall left ventricular systolic function is normal with, an EF between 55 - 60 %. The right ventricle is severely enlarged. The left atrial size is normal. The right atrium was not well visualized. Lumason used The aortic valve was not well visualized. The mitral valve was not well visualized. The tricuspid valve was not well visualized. Trace tricuspid regurgitation present. Right ventric ular systolic pressure is normal at < 35 mmHg. The pulmonic valve was not well visualized. There is no pericardial effusion. CONCLUSIONS -------- 1. The left ventricular size is normal. 2. There is moderate concentric left ventricular hypertrophy. 3. Overall left ventricular systolic function is normal with, an EF between 55 - 60 %. 4. The right ventricle is severely enlarged. 5. Trace tricuspid regurgitation present. 6. There is no pericardial effusion. BUSINESS ANALYSIS ANALYST: Vandana De Jesus RDCS
--- NOTE | 2021-09-13 10:32 | CONS ---
CONSULTATION CHIEF COMPLAINT: Tachycardia. This is a 61-year-old gentleman who was transferred from a correction with symptoms of not being able to ambulate, not feeling well, weak, loss of appetite, and he was hypotensive and had hyperkalemia and worsening renal failure. For this he is admitted to ICU and Cardiology has been consulted because of tachycardia. Patient was in the hospital around June with COVID infection with pneumonia requiring mechanical ventilation. He is currently residing in a correction going through rehab. Patient appears quite confused. He denies any chest pain. He had been dialyzed on this admission with improvement in his symptoms and improvement in his renal functions. He does not have cough, does not have chest pain. An echocardiogram on this admission revealed normal LV systolic function. On exam, comfortable at rest. Vital signs are stable. Chest exam reveals good air entry bilaterally. Heart exam reveals first and second heart sounds. No gallop. Examination of extremities reveals bilateral pitting edema. Labs show a hemoglobin of 11.3, platelet count of 194. Potassium is 4.9, BUN is 47, creatinine is 3.2. Patient is currently on Eliquis because of history of DVT, Lopressor 12.5 b.i.d. ASSESSMENT: 1. Acute-onset renal failure. 2. History of deep vein thrombosis, on Eliquis. 3. Sinus tachycardia. On an echocardiogram I repeated he has normal LV function. MMODL / IJN: [id number] /
--- NOTE | 2021-09-13 11:32 | P.PN ---
Subjective Progress Note Date: 09/13/21 Principal diagnosis: Shortness of breath 61-year-old male patient, who was transferred to the [facility]. The patient was sent to medical [place] for further rehabilitation as the patient had a prolonged hospitalization back in June 2021 that extended to July 2021. At that time, the patient had a very complicated course as the patient was intubated and placed on a mechanical ventilator on 06/25/2021. He presented to us hypothermic, had pneumonia and sepsis and complete opacification of the left lung. During the course of his illness, he Is negative for microbial growth and he also tested negative for COVID 19. He underwent bronchoscopy 2 on 06/27/2021 and 07/03/2021. His left lung gradually reexpanded. Post extubation, he was given BiPAP. He is known to have asthma, diabetes, hypertension, hyperlipidemia and obstructive sleep apnea and BPH. He was given aggressive chest PT, percussion, deep breathing and pulmonary toileting and based on his generalized weakness, he was sent for rehabilitation. During this current admission, the patient reports that he was not doing well. He does not get to the point where he was ambulatory. Obviously is a non-reliable historian. He states that he was not feeling well. He was feeling weak. He was not eating much. He did not like the food and his oral intake was quite diminished. He came into the ED with hypotension with a blood pressure of 70/50. The patient's potassium level initially was at 4.9 and the patient was in acute kidney injury. Subsequently, the potassium came up to 7.3. Various treatments done to improve the potassium and failed and ultimately, the patient got transferred to the ICU for hyperkalemia. He was given a dialysis catheter and he received a session of hemodialysis yesterday. This morning, his potassium level is down to 5.9. Creatinine is improving. Urine output is in order of 20-25 mL an hour. He has a dialysis catheter in his right groin. He has no signs of any respiratory distress. Chest x-rays unchanged and there is a stable atelectasis in left lung base. The patient remains about O2 and currently he is a 96% pulse ox. Most recent BP is 88/50 from this morning. He was noted to be tachycardic over the past 24 hours. Cardiac rhythm is sinus. White cell count is at low hemoglobin 15.7 and a platelet count of 195. Note. Indication of an underlying infection. The patient's UA was not showing any signs of infection. Blood cultures 2 were sent from admission are negative. He has stage II wounds. No significant cough sputum production. No wheezing. No altered mentation or headache or neck stiffness. In the ICU, give this patient a bolus of 1 L. I started him on IV Zosyn and IV. The ulcers. He is on Levemir insulin 16 units at bedtime along with a sliding scale coverage. On 09/13/2021 patient seen in follow-up in the intensive care unit. He is awake and alert, in no acute distress, he is resting comfortably in bed, denies any dyspnea. Room air pulse ox is 94%, patient is having hemodialysis treatment. He did wear CPAP support last night. Patient remains on empiric antibiotics with doxycycline and Zosyn. Patient continues to have low-grade fevers and a T- max in the last 24 hours was 101.6F at 8:00 in the morning yesterday. No cough, no chest discomfort, no hemoptysis. Hemodynamically stable, he is receiving IV fluids normal saline at a rate of 75 ML per hour. Breathing is nonlabored, comfortable. His chest x-ray on 09/11/2021 showed mild blunting of the left costophrenic angle, clear right lung. Today's labs have been reviewed with blood cell count is 7.6, hemoglobin is 11.3, platelet count is 194, sodium is 132, the rest of electrolytes were within normal limits, BUN is 47, creatinine is 3.22. Patient is not requiring any vasopressor support, echocardiogram has been completed showing moderate concentric LVH, EF of 55-60%, and severe enlargement of the right ventricle. Objective - Vital Signs Vital signs: Vital Signs Temp 99.1 F 09/13/21 08:00 Pulse 124 H 09/13/21 09:00 Resp 24 09/13/21 10:00 BP 113/67 09/13/21 10:00 Pulse Ox 94 L 09/13/21 10:00 Intake & Output 09/12/21 09/13/21 09/13/21 18:59 06:59 18:59 Intake Total 2150 950 425 Output Total 105 100 40 Balance 2044 850 385 Weight 130 kg Intake: IV 225 Sodium Chloride 0.9% 1, 225 000 ml @ 75 mls/hr IV . [id number] [facility] Rx#:[id number] Intake, IV Titration 1900 950 100 Amount Dextrose 5% in Water 1, 200 000 ml @ 100 mls/hr IV . [id number] [facility] with Sodium Bicarb (1 Meq/ml) 150 ml Rx#:[id number] Piperacillin-Tazobactam 3 100 50 100 .375 gm In Sodium Chloride 0.9% 100 ml @ 25 mls/hr IVPB Q12HR [facility] Rx #:[id number] Sodium Chloride 0.9% 1, 600 900 000 ml @ 75 mls/hr IV . [id number] [facility] Rx#:[id number] Sodium Chloride 0.9% 1, 1000 000 ml @ 999 mls/hr IV . Q1H1M ONE Rx#:[id number] Oral 250 100 Output: Urine 105 100 40 Other: Voiding Method Indwelling Catheter Indwelling Catheter Indwelling Catheter - Exam GENERAL EXAM: Alert, very pleasant 61-year-old white male, on room air with pulse ox of 95%, comfortable in no apparent distress. HEAD: Normocephalic/atraumatic. EYES: Normal reaction of pupils, equal size. Conjunctiva pink, sclera white. NOSE: Clear with pink turbinates. THROAT: No erythema or exudates. NECK: No masses, no JVD, no thyroid enlargement, no adenopathy. CHEST: No chest wall deformity. Symmetrical expansion. LUNGS: Equal air entry with no crackles, wheeze, rhonchi or dullness. CVS: Regular rate and rhythm, normal S1 and S2, no gallops, no murmurs, no rubs ABDOMEN: Soft, nontender. No hepatosplenomegaly, normal bowel sounds, no g uarding or rigidity. EXTREMITIES: No clubbing, no edema, no cyanosis, 2+ pulses and upper and lower extremities. MUSCULOSKELETAL: Muscle strength and tone normal. SPINE: No scoliosis or deformity SKIN: No rashes CENTRAL NERVOUS SYSTEM: Alert and oriented -3. No focal deficits, tone is normal in all 4 extremities. PSYCHIATRIC: Alert and oriented -3. Appropriate affect. Intact judgment and insight. - Labs CBC & Chem 7: 09/13/21 06:35 03/07/22 06:35 Labs: Abnormal Lab Results - Last 24 Hours (Table) 09/12/21 09/12/21 09/12/21 Range/Units 11:42 15:04 16:40 RBC (4.30-5.90) m/uL Hgb (13.0-17.5) gm/dL Hct (39.0-53.0) % RDW (11.5-15.5) % Lymphocytes # (1.0-4.8) k/uL Sodium (137-145) mmol/L Potassium 5.9 H (3.5-5.1) mmol/L BUN (9-20) mg/dL Creatinine (0.66-1.25) mg/dL POC Glucose (mg/dL) 145 H 144 H (75-99) mg/dL Calcium (8.4-10.2) mg/dL 09/12/21 09/13/21 09/13/21 Range/Units 19:54 06:35 06:35 RBC 3.94 L (4.30-5.90) m/uL Hgb 11.3 L (13.0-17.5) gm/dL Hct 35.5 L (39.0-53.0) % RDW 16.6 H (11.5-15.5) % Lymphocytes # 0.7 L (1.0-4.8) k/uL Sodium 132 L (137-145) mmol/L Potassium (3.5-5.1) mmol/L BUN 47 H (9-20) mg/dL Creatinine 3.22 H (0.66-1.25) mg/dL POC Glucose (mg/dL) 162 H (75-99) mg/dL Calcium 6.8 L (8.4-10.2) mg/dL Microbiology - Last 24 Hours (Table) 09/09/21 16:28 Blood Culture - Preliminary Blood No Growth after 72 hours 09/09/21 16:28 Blood Culture - Preliminary Blood No Growth after 72 hours Assessment and Plan Plan: Assessment: #1. Acute kidney injury under investigation. Patient did not respond to conventional treatments, and ultimately was started on hemodialysis during this admission and currently patient's electrolytes and urine output has improved #2. Non-anion gap metabolic acidosis, improved #3. Acute hyperkalemia #4. Acute febrile illness under investigation, cultures have shown no growth, chest x-ray showed mild oral reaction at the left lung base. UA was not showing any signs of infection. No significant pulmonary symptoms, no cough, no sputum production no wheezing, no altered mentation. Currently covered with a combination of Zosyn and doxycycline. #5. Hypotension sinus tachycardia could be related to underlying infection/sepsis currently under investigation #6. Morbid obesity with BMI 41.8 #7. History of acute hypoxic respiratory failure on the mechanical ventilator back in mid June 2021 with left lung collapse post bronchoscopy 2 #8. Bronchial asthma, chronic, unspecified #9. Diabetes note this type II #10. Hyperlipidemia #11. Hypertension #12. Obstructive sleep apnea on CPAP therapy #13. BPH Plan: Signs are stable Breathing comfortably, he is on room air Continue current antibiotics Blood cultures remain negative Hypotension has resolved, patient is not requiring any vasopressor support Currently receiving hemodialysis Following hemodialysis, if tolerates well and remains stable may consider transfer out of intensive care unit to regular medical surgical floor Continue breathing treatments Continue to follow I have personally seen and examined the patient, performed the documentation and the assessment and plan as written. Number of minutes spent on the visit: [10] Time with Patient: Less than 30
[2021-09-13 11:34] LABS: Glucose,Whole Blood 98 mg/dL (75-99)
[2021-09-13] MEDS: SODIUM CHLORIDE 0.9% 1,000 ML IV SCH (12:13)
--- NOTE | 2021-09-13 12:27 | P.PN ---
Subjective Patient is seen for follow-up for acute kidney injury and hyperkalemia. He was significantly hypotensive on initial admission. Serum creatinine had peaked at 3.7 mg/dL but due to the potassium staying elevated at 7.3 patient was dialyzed yesterday. His potassium is down to 4.9. However patient's urine output has been low at 5-15 mL an hour. Patient is seen on hemodialysis today. He is comfortable. He is not in any acute distress. Patient is sleepy but arousable. Heart rate has been staying up around 120s mostly sinus tach. Objective - Vital Signs Vital signs: Vital Signs Temp 99.1 F 09/13/21 08:00 Pulse 124 H 09/13/21 09:00 Resp 24 09/13/21 10:00 BP 113/67 09/13/21 10:00 Pulse Ox 94 L 09/13/21 10:00 Intake & Output 09/12/21 09/13/21 09/13/21 18:59 06:59 18:59 Intake Total 2150 950 425 Output Total 105 100 40 Balance 5 850 385 Weight 130 kg Intake: IV 225 Sodium Chloride 0.9% 1, 225 000 ml @ 75 mls/hr IV . [id number] [facility] Rx#:[id number] Intake, IV Titration 1900 950 100 Amount Dextrose 5% in Water 1, 200 000 ml @ 100 mls/hr IV . [id number] ERINN with Sodium Bicarb (1 Meq/ml) 150 ml Rx#:[id number] Piperacillin-Tazobactam 3 100 50 100 .375 gm In Sodium Chloride 0.9% 100 ml @ 25 mls/hr IVPB Q12HR [facility] Rx #:[id number] Sodium Chloride 0.9% 1, 600 900 000 ml @ 75 mls/hr IV . [id number] [facility] Rx#:[id number] Sodium Chloride 0.9% 1, 1000 000 ml @ 999 mls/hr IV . Q1H1M ONE Rx#:[id number] Oral 250 100 Output: Urine 105 100 40 Other: Voiding Method Indwelling Catheter Indwelling Catheter Indwelling Catheter - Exam Patient is comfortable awake not in any acute distress. He sleepy but arousable. Examination of the heart S1 and S2 Examination lungs bilateral breath sounds are heard Abdomen is soft obese nontender Examination lower extremities shows chronic skin changes - Labs CBC & Chem 7: 09/13/21 06:35 09/13/21 06:35 Labs: Abnormal Lab Results - Last 24 Hours (Table) 09/12/21 09/12/21 09/12/21 Range/Units 15:04 16:40 19:54 RBC (4.30-5.90) m/uL Hgb (13.0-17.5) gm/dL Hct (39.0-53.0) % RDW (11.5-15.5) % Lymphocytes # (1.0-4.8) k/uL Sodium (137-145) mmol/L Potassium 5.9 H (3.5-5.1) mmol/L BUN (9-20) mg/dL Creatinine (0.66-1.25) mg/dL POC Glucose (mg/dL) 144 H 162 H (75-99) mg/dL Calcium (8.4-10.2) mg/dL 09/13/21 09/13/21 Range/Units 06:35 06:35 RBC 3.94 L (4.30-5.90) m/uL Hgb 11.3 L (13.0-17.5) gm/dL Hct 35.5 L (39.0-53.0) % RDW 16.6 H (11.5-15.5) % Lymphocytes # 0.7 L (1.0-4.8) k/uL Sodium 132 L (137-145) mmol/L Potassium (3.5-5.1) mmol/L BUN 47 H (9-20) mg/dL Creatinine 3.22 H (0.66-1.25) mg/dL POC Glucose (mg/dL) (75-99) mg/dL Calcium 6.8 L (8.4-10.2) mg/dL Microbiology - Last 24 Hours (Table) 09/09/21 16:28 Blood Culture - Preliminary Blood No Growth after 72 hours 09/09/21 16:28 Blood Culture - Preliminary Blood No Growth after 72 hours Assessment and Plan Assessment: 1. Hyperkalemia associated with acute kidney injury use of JENSEN inhibitor's prior to admission currently improved. He shouldn't is status post dialysis yesterday. Urine output remains on the lower side. 2. Acute kidney injury secondary to ATN from hypotension previous creatinine 0.7 on 08/10/2021. Started dialysis on 09/12/2021 for severe hyperkalemia. Urine output is borderline. Will continue to monitor for recovery of renal function 3. Metabolic acidosis associated with acute kidney injury status post bicarb drip 4. Sinus tachycardia, status post IV fluids check TSH level Plan: Repeat hemodialysis today Check TSH Repeat chest x-ray in a.m. Avoid nephrotoxic agents Continue to monitor for recovery of renal function. Will hold hemodialysis in a.m.
[2021-09-13] MEDS: TAMSULOSIN 0.4 MG CAP.ER.24H PO SCH (13:25)
--- NOTE | 2021-09-13 14:19 | P.PN ---
Subjective Progress Note Date: 09/13/21 CHIEF COMPLAINT: Abdominal pain HISTORY OF PRESENT ILLNESS: Patient seen in the ICU receiving hemodialysis. Patient's does report some right upper quadrant abdominal pain. He's had poor oral intake. Denies any nausea or vomiting. No bowel movement. He had been tachycardia. Low-grade temp of 100. White count 7.6. Patient will likely be transferred out of the ICU later today. PHYSICAL EXAM: VITAL SIGNS: Reviewed. GENERAL: Well-developed in no acute distress. HEENT: No sclera icterus. Extraocular movements grossly intact. Moist buccal mucosa. Head is atraumatic, normocephalic. ABDOMEN: Soft. Nondistended. Right upper quadrant tenderness NEUROLOGIC: Alert and oriented. Cranial nerves II through XII grossly intact. ASSESSMENT: 1. Abdominal pain with right upper quadrant tenderness 2. Acute kidney injury 3. 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 Signing provider agrees with the documented findings, assessment, and plan of care. Objective - Vital Signs Vital signs: Vital Signs Temp 98.2 F 09/13/21 12:54 Pulse 120 H 09/13/21 12:54 Resp 20 09/13/21 12:54 BP 123/66 09/13/21 12:54 Pulse Ox 94 L 09/13/21 10:00 Intake & Output 09/12/21 09/13/21 09/13/21 18:59 06:59 18:59 Intake Total 2150 950 725 Output Total 105 100 940 Balance 2045 850 -215 Weight 130 kg Intake: IV 225 Sodium Chloride 0.9% 1, 225 000 ml @ 75 mls/hr IV . [id number] ERINN Rx#:[id number] Intake, IV Titration 1900 950 100 Amount Dextrose 5% in Water 1, 200 000 ml @ 100 mls/hr IV . [id number] ERINN with Sodium Bicarb (1 Meq/ml) 150 ml Rx#:[id number] Piperacillin-Tazobactam 3 100 50 100 .375 gm In Sodium Chloride 0.9% 100 ml @ 25 mls/hr IVPB Q12HR ERINN Rx #:[id number] Sodium Chloride 0.9% 1, 600 900 000 ml @ 75 mls/hr IV . [id number] ERINN Rx#:[id number] Sodium Chloride 0.9% 1, 1000 000 ml @ 999 mls/hr IV . Q1H1M ONE Rx#:[id number] Oral 250 100 Hemodialysis 300 Output: Urine 105 100 40 Hemodialysis 900 Other: Voiding Method Indwelling Catheter Indwelling Catheter Indwelling Catheter - Labs CBC & Chem 7: 09/13/21 06:35 09/13/21 06:35 Labs: Abnormal Lab Results - Last 24 Hours (Table) 09/12/21 09/12/21 09/12/21 Range/Units 15:04 16:40 19:54 RBC (4.30-5.90) m/uL Hgb (13.0-17.5) gm/dL Hct (39.0-53.0) % RDW (11.5-15.5) % Lymphocytes # (1.0-4.8) k/uL Sodium (137-145) mmol/L Potassium 5.9 H (3.5-5.1) mmol/L BUN (9-20) mg/dL Creatinine (0.66-1.25) mg/dL POC Glucose (mg/dL) 144 H 162 H (75-99) mg/dL Calcium (8.4-10.2) mg/dL 09/13/21 09/13/21 Range/Units 06:35 06:35 RBC 3.94 L (4.30-5.90) m/uL Hgb 11.3 L (13.0-17.5) gm/dL Hct 35.5 L (39.0-53.0) % RDW 16.6 H (11.5-15.5) % Lymphocytes # 0.7 L (1.0-4.8) k/uL Sodium 132 L (137-145) mmol/L Potassium (3.5-5.1) mmol/L BUN 47 H (9-20) mg/dL Creatinine 3.22 H (0.66-1.25) mg/dL POC Glucose (mg/dL) (75-99) mg/dL Calcium 6.8 L (8.4-10.2) mg/dL Microbiology - Last 24 Hours (Table) 09/12/21 10:29 Blood Culture - Preliminary Blood No Growth after 24 hours 09/12/21 10:28 Blood Culture - Preliminary Blood No Growth after 24 hours 09/09/21 16:28 Blood Culture - Preliminary Blood No Growth after 72 hours 09/09/21 16:28 Blood Culture - Preliminary Blood No Growth after 72 hours
--- NOTE | 2021-09-13 15:49 | P.PN ---
Progress Note - Text Progress Note Date: 09/13/21 Chief Complaint: Low blood pressure This is a 61-year-old patient, follows with Dr. Seda Schneider. Chronic stable medical conditions include diabetes, , hyperlipidemia, obstructive sleep apnea uses CPAP, herniated disc / injections,. Patient was in the hospital from 06/26/2021 through July 16 Admitted with pneumonia, severe hypothermia, acute hypoxic respiratory failure, possible sepsis, possible acute congestive heart failure exacerbation. Was intubated. Was discharged on intermittent BiPAP. Gifford to have possible viral pneumonitis. Was negative for COVID. Was discharged to rehab. At the rehab patient had a poor appetite. Not really able to walk. 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 Admitted. Denies any fever and chills. Actually eating better here. Has been having daily bowel movements. Occasional diarrhea. Does feel tired and rundown. Admitted with severe hypotension, acute kidney injury, hypoglycemia. Diuretics were held. IV hydration. PTOT. September 11: Lasted patient abdominal pain. Abdominal x-ray unremarkable. Surgery consulted. Patient's is present. Appetite is actually getting better. Continue IV fluids. Renal function worsening. Start bicarbonate drip. Coughing up some yellow sputum. Add doxycycline for acute bronchitis. Check creatinine kinase. Rule out rhabdomyolysis. September 12: Patient potassium persisted to be high yesterday. In spite of having several medications. Moved to the ICU. Nephrology consulted. Dialysis catheter was placed and patient received hemodialysis late last night. Poor appetite. Tired. Seen by psychiatry. Gifford to have adjustment disorder. September 13: ICU: Tired and sleepy. Barely eating. I reviewed medications. Patient on Neurontin in the setting of acute kidney injury this can cause the patient to be lethargic. Cut back on the dose. Dialysis today. About half a liter removed. IV Zosyn. Active Medications Acetaminophen (Acetaminophen Tab 325 Mg Tab) 650 mg PO Q6HR PRN PRN Reason: Mild Pain or Fever > 100.5 Last Admin: 09/12/21 20:09 Dose: 650 mg Documented by: Albuterol/Ipratropium (Ipratropium-Albuterol 3 Ml Neb) 3 ml INHALATION RT-QID ERINN Last Admin: 09/13/21 12:26 Dose: 3 ml Documented by: Apixaban (Apixaban 5 Mg Tab) 5 mg PO BID [facility]; Protocol Last Admin: 09/13/21 08:33 Dose: 5 mg Documented by: Ascorbic Acid (Ascorbic Acid 500 Mg Tab) 1,000 mg PO DAILY@0800 [facility] Last Admin: 09/13/21 08:33 Dose: 1,000 mg Documented by: Budesonide/Formoterol Fumarate (Symbicort 80-4.5 Mcg Inhaler) 2 puff INHALATION RT-BID [facility] Last Admin: 09/13/21 08:43 Dose: 2 puff Documented by: Doxycycline Monohydrate (Doxycycline 50 Mg Cap) 50 mg PO BID [facility]; Protocol Last Admin: 09/13/21 08:33 Dose: 50 mg Documented by: Folic Acid (Folic Acid 1 Mg Tab) 1 mg PO DAILY [facility] Last Admin: 09/13/21 08:33 Dose: 1 mg Documented by: Gabapentin (Gabapentin 100 Mg Cap) 200 mg PO HS [facility] Glucose (Dextrose 4 Gm Chewable) 4 gm PO Q10M PRN PRN Reason: CBG < 70 mg/dL Sodium Chloride (Saline 0.9%) 1,000 mls @ 75 mls/hr IV .[id number] [facility] Last Admin: 09/13/21 12:13 Dose: Not Given Documented by: Piperacillin Sod/Tazobactam (Sod 3.375 gm/ Sodium Chloride) 100 mls @ 25 mls/hr IVPB Q12HR [facility]; Protocol Last Admin: 09/13/21 08:34 Dose: 25 mls/hr Documented by: Insulin Detemir (Insulin Detemir (Levemir) 100 Unit/Ml Syr) 16 unit SQ HS [facility] Last Admin: 09/12/21 20:04 Dose: 16 unit Documented by: Metoprolol Tartrate (Metoprolol Tartrate 12.5 Mg Tab) 12.5 mg PO BID [facility] Last Admin: 09/13/21 08:34 Dose: 12.5 mg Documented by: Multivitamins (Multivitamins, Thera 1 Each Tab) 1 each PO DAILY [facility] Last Admin: 09/13/21 08:34 Dose: 1 each Documented by: Naloxone HCl (Naloxone 0.4 Mg/Ml 1 Ml Vial) 0.2 mg IV Q2M PRN PRN Reason: Opioid Reversal Ondansetron HCl (Ondansetron 4 Mg Tab) 4 mg PO Q6HR PRN PRN Reason: Nausea And Vomiting Last Admin: 09/12/21 17:12 Dose: 4 mg Documented by: Pantoprazole Sodium (Pantoprazole 40 Mg/10 Ml Vial) 40 mg IV DAILY [facility] Last Admin: 09/13/21 08:34 Dose: 40 mg Documented by: Ropinirole HCl (Ropinirole Hcl 1 Mg Tab) 1 mg PO HS [facility] Last Admin: 09/12/21 20:03 Dose: 1 mg Documented by: Tamsulosin HCl (Tamsulosin 0.4 Mg Cap.Er.24h) 0.4 mg PO DAILY@1400 [facility] Last Admin: 09/13/21 13:25 Dose: 0.4 mg Documented by: Past medical history to include: COPD, asthma, diabetes, hypertension, hyperlipidemia, obstructive sleep apnea uses CPAP, herniated disc uses injections, pneumonia June 2021 patient intubated Social history: Alcohol occasionally. Occasional cigar. Marijuana occasionally. . At rehab Family history: Skin cancer, macular degeneration Physical examination: VITAL SIGNS: Afebrile, 124, 20, 123/76, 94% room air is GENERAL: laying in bed, awake, tired. EYES: Pupils equal. Conjunctiva normal. HEENT: External appearance of nose and ears normal, oral cavity grossly normal. NECK: JVD not raised; masses not palpable. HEART: First and second heart sounds are normal; no edema. LUNGS: Respiratory rate normal; clear to auscultation. ABDOMEN: Soft, nontender, liver spleen not palpable, no masses palpable. PSYCH: Alert and oriented x3; mood and affect low MUSCULOSKELETAL:No Clubbing/cyanosis;muscles-grossly intact NEUROLOGICAL: Cranial nerves grossly intact; no facial asymmetry, decreased power lower extremity. INVESTIGATIONS, reviewed in the clinical context: September 13: White count 7.6 hemoglobin 10.3 platelets 1944.9 BUN 47 creatinine 3.2 to September 12: White count 12.1-year-old and 30.7 sodium 134 potassium 5.9 BUN 38 creatinine 2.76 September 11: Sodium 131 potassium 7.2 BUN 48 creatinine 3.73 White count 6.8 hemoglobin 13.8 platelets 244 sodium 136 potassium 4.9 BUN 40 creatinine 3.41. EKG tracing personally reviewed by me-sinus rhythm, right bundle branch block. Some T waves abnormalities Chest x-ray film personally reviewed by me-possible chronic changes Blood Glucose 36 Assessment and plan: -Severe hypotension, from acute kidney injury from decreased oral intake: Improvement IV fluids -Chronic congestive heart failure. From diastolic dysfunction EF 55-60%: Hold diuretics for now -Acute kidney injury prerenal versus ATN: On renal replacement therapy Daily hemodialysis -Acute metabolic acidosis from worsening renal failure: Better bicarbonate drip-discontinued -Acute severe hyperkalemia from metabolic acidosis: Better -Sinus tachycardia likely from sepsis -Anorexia multifactorial Try Marinol -Sepsis. Source unclear. Blood cultures pending Empirically started on Zosyn. 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 -Obesity BMI 34 -Adjustment disorder Seen by psychiatry. No medications. -Essential hypertension, currently blood pressure running low Hold off antihypertensive -Restless leg syndrome Requip 1 mg daily at bedtime -Diabetes mellitus type 2 on oral hypoglycemic, uncontrolled with hypoglycemia: Better Hold of oral hypoglycemic. Follow Accu-Cheks. -Hyperlipidemia Hold off Zocor because of muscle weakness -BPH Flomax 0.4 mg daily -COPD Advair 250/50 one puff twice a day. DuoNeb 4 times a day -Chronic medical debility from recent protracted hospitalization PTOT ICU. Hemodialysis today. Neurontin cutback to 200 mg daily at bedtime. IV Zosyn. Cultures pending. Add Marinol
[2021-09-13 16:36] LABS: Glucose,Whole Blood 136 mg/dL (75-99)
[2021-09-13 20:43] LABS: Glucose,Whole Blood 117 mg/dL (75-99)
[2021-09-13] MEDS: INSULIN DETEMIR (LEVEMIR) 100 UNIT/ML SYR SQ SCH (21:21)
[2021-09-14] MEDS: SODIUM CHLORIDE 0.9% 1,000 ML IV SCH ×2 (03:36→18:02)
[2021-09-14 07:06] LABS: Glucose,Whole Blood 76 mg/dL (75-99)
[2021-09-14] MEDS: IPRATROPIUM-ALBUTEROL 3 ML NEB INHALATION SCH ×4 (08:09→20:07)
[2021-09-14] MEDS: SYMBICORT 80-4.5 MCG INHALER INHALATION SCH ×2 (08:09→20:07)
[2021-09-14] MEDS: PANTOPRAZOLE 40 MG/10 ML VIAL IV SCH (08:39)
[2021-09-14] MEDS: ASCORBIC ACID 500 MG TAB PO SCH (08:40)
[2021-09-14] MEDS: PIPERACILLIN-TAZOBACTAM 3.375 GM in SODIUM CHLORIDE 0.9% 100 ML IVPB SCH ×2 (08:40→21:16)
[2021-09-14] MEDS: FOLIC ACID 1 MG TAB PO SCH (08:40)
[2021-09-14] MEDS: APIXABAN 5 MG TAB PO SCH ×2 (08:40→21:16)
[2021-09-14] MEDS: MULTIVITAMINS, THERA 1 EACH TAB PO SCH (08:40)
[2021-09-14] MEDS: METOPROLOL TARTRATE 12.5 MG TAB PO SCH ×3 (08:40→21:16)
[2021-09-14] MEDS: DOXYCYCLINE 50 MG CAP PO SCH ×2 (08:42→21:15)
[2021-09-14 11:28] LABS: Glucose,Whole Blood 73 mg/dL (75-99)
--- NOTE | 2021-09-14 11:30 | P.PN ---
Subjective Progress Note Date: 09/14/21 HISTORY OF PRESENT ILLNESS: Patient examined this morning at the bedside. Patient denies chest pain or pressure. He denies shortness of breath. Echocardiogram completed revealing e jection fraction 55-60% with trace TR. Heart rate is currently in the 90s. Blood pressure 107/57. PHYSICAL EXAM: VITAL SIGNS: Reviewed. GENERAL: Well-developed in no acute distress. NECK: Supple. No JVD or thyromegaly LUNGS: Respirations even and unlabored. Lungs essentially clear to auscultation bilaterally. HEART: Regular rate and rhythm. S1 and S2 heard. EXTREMITIES: Normal range of motion. No clubbing or cyanosis. Peripheral pulses intact. No lower extremity edema ASSESSMENT: Acute renal failure History of DVT on Eliquis Sinus tachycardia PLAN: Continue current cardiac medications Metoprolol tartrate increased to 12.5 mg 3 times a day Patient is currently stable from a cardiac standpoint We will sign off. Please reconsult if needed. Nurse practitioner note has been reviewed by physician. Signing provider agrees with the documented findings, assessment, and plan of care. Objective - Vital Signs Vital signs: Vital Signs Temp 97.6 F 09/14/21 08:00 Pulse 92 09/14/21 08:21 Resp 18 09/14/21 08:21 BP 107/57 09/14/21 08:00 Pulse Ox 95 09/14/21 08:09 Intake & Output 09/13/21 09/14/21 09/14/21 18:59 06:59 18:59 Intake Total 725 1000 Output Total 940 Balance -215 1000 Intake: IV 225 Sodium Chloride 0.9% 1, 225 000 ml @ 75 mls/hr IV . [id number] ERINN Rx#:[id number] Intake, IV Titration 100 1000 Amount Piperacillin-Tazobactam 3 100 100 .375 gm In Sodium Chloride 0.9% 100 ml @ 25 mls/hr IVPB Q12HR ERINN Rx #:[id number] Sodium Chloride 0.9% 1, 900 000 ml @ 75 mls/hr IV . [id number] ERINN Rx#:[id number] Oral 100 Hemodialysis 300 Output: Urine 40 Hemodialysis 900 Other: Voiding Method Indwelling Catheter # Voids 0 - Labs CBC & Chem 7: 09/13/21 06:35 09/13/21 06:35 Labs: Abnormal Lab Results - Last 24 Hours (Table) 09/13/21 09/13/21 Range/Units 16:35 20:41 POC Glucose (mg/dL) 136 H 117 H (75-99) mg/dL Microbiology - Last 24 Hours (Table) 09/09/21 16:28 Blood Culture - Preliminary Blood No Growth after 96 hours 09/09/21 16:28 Blood Culture - Preliminary Blood No Growth after 96 hours 09/12/21 10:29 Blood Culture - Preliminary Blood No Growth after 24 hours 09/12/21 10:28 Blood Culture - Preliminary Blood No Growth after 24 hours
[2021-09-14 11:42] LABS: African American GFR (CKD) 22 (>60 ml/min/1.73 sqM); Anion Gap 7 mmol/L; Blood Urea Nitrogen 39 mg/dL (9-20); Calcium 7.4 mg/dL (8.4-10.2); Carbon Dioxide 23 mmol/L (22-30); Chloride 105 mmol/L (98-107); Glucose 64 mg/dL (74-99); Non-African American GFR(CKD) 19 (>60 ml/min/1.73 sqM); Sodium 135 mmol/L (137-145)
--- NOTE | 2021-09-14 12:16 | P.PN ---
Subjective Progress Note Date: 09/14/21 Principal diagnosis: Shortness of breath 61-year-old male patient, who was transferred to the hospital on 09/09/2021 from the [place] where he was [facility]. The patient was sent to [facility] for further rehabilitation as the patient had a prolonged hospitalization back in June 2021 that extended to July 2021. At that time, the patient had a very complicated course as the patient was intubated and placed on a mechanical ventilator on 06/25/2021. He presented to us hypothermic, had pneumonia and sepsis and complete opacification of the left lung. During the course of his illness, he Is negative for microbial growth and he also tested negative for COVID 19. He underwent bronchoscopy 2 on 06/27/2021 and 07/03/2021. His left lung gradually reexpanded. Post extubation, he was given BiPAP. He is known to have asthma, diabetes, hypertension, hyperlipidemia and obstructive sleep apnea and BPH. He was given aggressive chest PT, percussion, deep breathing and pulmonary toileting and based on his generalized weakness, he was sent for rehabilitation. During this current admission, the patient reports that he was not doing well. He does not get to the point where he was ambulatory. Obviously is a non-reliable historian. He states that he was not feeling well. He was feeling weak. He was not eating much. He did not like the food and his oral intake was quite diminished. He came into the ED with hypotension with a blood pressure of 70/50. The patient's potassium level initially was at 4.9 and the patient was in acute kidney injury. Subsequently, the potassium came up to 7.3. Various treatments done to improve the potassium and failed and ultimately, the patient got transferred to the ICU for hyperkalemia. He was given a dialysis catheter and he received a session of hemodialysis yesterday. This morning, his potassium level is down to 5.9. Creatinine is improving. Urine output is in order of 20-25 mL an hour. He has a dialysis catheter in his right groin. He has no signs of any respiratory distress. Chest x-rays unchanged and there is a stable atelectasis in left lung base. The patient remains about O2 and currently he is a 96% pulse ox. Most recent BP is 88/50 from this morning. He was noted to be tachycardic over the past 24 hours. Cardiac rhythm is sinus. White cell count is at low hemoglobin 15.7 and a platelet count of 195. Note. Indication of an underlying infection. The patient's UA was not showing any signs of infection. Blood cultures 2 were sent from admission are negative. He has stage II wounds. No significant cough sputum production. No wheezing. No altered mentation or headache or neck stiffness. In the ICU, give this patient a bolus of 1 L. I started him on IV Zosyn and IV. The ulcers. He is on Levemir insulin 16 units at bedtime along with a sliding scale coverage. On 09/13/2021 patient seen in follow-up in the intensive care unit. He is awake and alert, in no acute distress, he is resting comfortably in bed, denies any dyspnea. Room air pulse ox is 94%, patient is having hemodialysis treatment. He did wear CPAP support last night. Patient remains on empiric antibiotics with doxycycline and Zosyn. Patient continues to have low-grade fevers and a T- max in the last 24 hours was 101.6F at 8:00 in the morning yesterday. No cough, no chest discomfort, no hemoptysis. Hemodynamically stable, he is receiving IV fluids normal saline at a rate of 75 ML per hour. Breathing is nonlabored, comfortable. His chest x-ray on 09/11/2021 showed mild blunting of the left costophrenic angle, clear right lung. Today's labs have been reviewed with blood cell count is 7.6, hemoglobin is 11.3, platelet count is 194, sodium is 132, the rest of electrolytes were within normal limits, BUN is 47, creatinine is 3.22. Patient is not requiring any vasopressor support, echocardiogram has been completed showing moderate concentric LVH, EF of 55-60%, and severe enlargement of the right ventricle. On 09/14/2021 patient seen in follow-up on selective care unit, he is resting in bed, breathing comfortably, lung sounds are essentially clear to auscultation, no rhonchi no wheezing, denies any cough, no phlegm production or chest discomfort. She did wear his CPAP device at night. At the on room air pulse ox is 95%, he was dialyzed yesterday and 900 mL of fluid was removed with hemodialysis. No plans for hemodialysis today according to the patient. Today's labs have been reviewed, sodium is 135, the rest of electrolytes are within normal limits, BUN is 39, creatinine is 3.31. 4 sets of blood cultures have shown no growth thus far since admission. Unclear the source of possible infection, patient remains on antibiotics for empiric antibiotic coverage, as patient for pneumonia is low Objective - Vital Signs Vital signs: Vital Signs Temp 97.6 F 09/14/21 08:00 Pulse 90 09/14/21 12:03 Resp 18 09/14/21 12:03 BP 107/57 09/14/21 08:00 Pulse Ox 95 09/14/21 08:09 Intake & Output 09/13/21 09/14/21 09/14/21 18:59 06:59 18:59 Intake Total 725 1000 Output Total 940 Balance -215 1000 Intake: IV 225 Sodium Chloride 0.9% 1, 225 000 ml @ 75 mls/hr IV . [id number] ERINN Rx#:[id number] Intake, IV Titration 100 1000 Amount Piperacillin-Tazobactam 3 100 100 .375 gm In Sodium Chloride 0.9% 100 ml @ 25 mls/hr IVPB Q12HR ERINN Rx #:[id number] Sodium Chloride 0.9% 1, 900 000 ml @ 75 mls/hr IV . [id number] ERINN Rx#:[id number] Oral 100 Hemodialysis 300 Output: Urine 40 Hemodialysis 900 Other: Voiding Method Indwelling Catheter Urinal # Voids 0 - Exam GENERAL EXAM: Alert, very pleasant 61-year-old white male, on room air with pulse ox of 95%, comfortable in no apparent distress. HEAD: Normocephalic/atraumatic. EYES: Normal reaction of pupils, equal size. Conjunctiva pink, sclera white. NOSE: Clear with pink turbinates. THROAT: No erythema or exudates. NECK: No masses, no JVD, no thyroid enlargement, no adenopathy. CHEST: No chest wall deformity. Symmetrical expansion. LUNGS: Equal air entry with no crackles, wheeze, rhonchi or dullness. CVS: Regular rate and rhythm, normal S1 and S2, no gallops, no murmurs, no rubs ABDOMEN: Soft, nontender. No hepatosplenomegaly, normal bowel sounds, no guarding or rigidity. EXTREMITIES: No clubbing, no edema, no cyanosis, 2+ pulses and upper and lower extremities. Left arm swelling noted, patient has a IV in the left forearm, rule out possibility of an infiltrated IV MUSCULOSKELETAL: Muscle strength and tone normal. SPINE: No scoliosis or deformity SKIN: No rashes CENTRAL NERVOUS SYSTEM: Alert and oriented -3. No focal deficits, tone is normal in all 4 extremities. PSYCHIATRIC: Alert and oriented -3. Appropriate affect. Intact judgment and insight. - Labs CBC & Chem 7: 09/13/21 06:35 09/14/21 10:36 Labs: Abnormal Lab Results - Last 24 Hours (Table) 09/13/21 09/13/21 09/14/21 Range/Units 16:35 20:41 10:36 Sodium 135 L (137-145) mmol/L BUN 39 H (9-20) mg/dL Creatinine 3.31 H (0.66-1.25) mg/dL Glucose 64 L (74-99) mg/dL POC Glucose (mg/dL) 136 H 117 H (75-99) mg/dL Calcium 7.4 L (8.4-10.2) mg/dL 09/14/21 Range/Units 11:27 Sodium (137-145) mmol/L BUN (9-20) mg/dL Creatinine (0.66-1.25) mg/dL Glucose (74-99) mg/dL POC Glucose (mg/dL) 73 L (75-99) mg/dL Calcium (8.4-10.2) mg/dL Microbiology - Last 24 Hours (Table) 09/09/21 16:28 Blood Culture - Preliminary Blood No Growth after 96 hours 09/09/21 16:28 Blood Culture - Preliminary Blood No Growth after 96 hours 09/12/21 10:29 Blood Culture - Preliminary Blood No Growth after 24 hours 09/12/21 10:28 Blood Culture - Preliminary Blood No Growth after 24 hours Assessment and Plan Plan: Assessment: #1. Acute kidney injury under investigation. Patient did not respond to conventional treatments, and ultimately was started on hemodialysis during this admission and currently patient's electrolytes and urine output has improved #2. Non-anion gap metabolic acidosis, improved #3. Acute hyperkalemia, resolved with hemodialysis, current potassium level is 4.0 #4. Acute febrile illness under investigation, cultures have shown no growth, chest x-ray showed mild oral reaction at the left lung base. UA was not showing any signs of infection. No significant pulmonary symptoms, no cough, no sputum production no wheezing, no altered mentation. Currently covered with a combination of Zosyn and doxycycline. #5. Hypotension sinus tachycardia could be related to underlying infecti on/sepsis currently under investigation #6. Morbid obesity with BMI 41.8 #7. History of acute hypoxic respiratory failure on the mechanical ventilator back in mid June 2021 with left lung collapse post bronchoscopy 2 #8. Bronchial asthma, chronic, unspecified #9. Diabetes note this type II #10. Hyperlipidemia #11. Hypertension #12. Obstructive sleep apnea on CPAP therapy #13. BPH Plan: No pulmonary complaints Patient is on room air He is wearing his CPAP device from home Afebrile Continues on antibiotics for possibility of infection although the source of it still not clear Pneumonia is unlikely Hemodialysis per nephrology recommendations Discontinue left arm IV for possible infiltration Patient continues on oral anticoagulation Continue breathing treatments We'll continue to follow Physical therapy evaluation I have personally seen and examined the patient, performed the documentation and the assessment and plan as written. Number of minutes spent on the visit: [10] Time with Patient: Less than 30
--- NOTE | 2021-09-14 12:48 | P.PN ---
Subjective Progress Note Date: 09/14/21 CHIEF COMPLAINT: Abdominal pain HISTORY OF PRESENT ILLNESS: Patient was transferred out of the ICU yesterday. He is lying in bed comfortably. Currently denies any abdominal pain. Denies any nausea or vomiting. No further fevers. Tachycardia resolved WBC 7.6 yesterday creatinine 3.31 abdominal ultrasound pending Patient seen and examined with Dr. whitaekr PHYSICAL EXAM: VITAL SIGNS: Reviewed. GENERAL: Well-developed in no acute distress. HEENT: No sclera icterus. Extraocular movements grossly intact. Moist buccal mucosa. Head is atraumatic, normocephalic. ABDOMEN: Soft. Nondistended. NEUROLOGIC: Alert and oriented. Cranial nerves II through XII grossly intact. ASSESSMENT: 1. Abdominal pain with right upper quadrant tenderness 2. Acute kidney injury 3. Febrile illness PLAN: -Continue supportive care -Further recommendations forthcoming per gallbladder ultrasound results Physician [employer] Wirer note has been reviewed by physician. Signing provider agrees with the documented findings, assessment, and plan of care. Objective - Vital Signs Vital signs: Vital Signs Temp 97.6 F 09/14/21 08:00 Pulse 90 09/14/21 12:03 Resp 18 09/14/21 12:03 BP 107/57 09/14/21 08:00 Pulse Ox 95 09/14/21 08:09 Intake & Output 09/13/21 09/14/21 09/14/21 18:59 06:59 18:59 Intake Total 725 1000 Output Total 940 Balance -215 1000 Weight 130 kg Intake: IV 225 Sodium Chloride 0.9% 1, 225 000 ml @ 75 mls/hr IV . [id number] ERINN Rx#:[id number] Intake, IV Titration 100 1000 Amount Piperacillin-Tazobactam 3 100 100 .375 gm In Sodium Chloride 0.9% 100 ml @ 25 mls/hr IVPB Q12HR ERINN Rx #:[id number] Sodium Chloride 0.9% 1, 900 000 ml @ 75 mls/hr IV . [id number] ERINN Rx#:[id number] Oral 100 Hemodialysis 300 Output: Urine 40 Hemodialysis 900 Other: Voiding Method Indwelling Catheter Urinal # Voids 0 - Labs CBC & Chem 7: 09/13/21 06:35 09/14/21 10:36 Labs: Abnormal Lab Results - Last 24 Hours (Table) 09/13/21 09/13/21 09/14/21 Range/Units 16:35 20:41 10:36 Sodium 135 L (137-145) mmol/L BUN 39 H (9-20) mg/dL Creatinine 3.31 H (0.66-1.25) mg/dL Glucose 64 L (74-99) mg/dL POC Glucose (mg/dL) 136 H 117 H (75-99) mg/dL Calcium 7.4 L (8.4-10.2) mg/dL 09/14/21 Range/Units 11:27 Sodium (137-145) mmol/L BUN (9-20) mg/dL Creatinine (0.66-1.25) mg/dL Glucose (74-99) mg/dL POC Glucose (mg/dL) 73 L (75-99) mg/dL Calcium (8.4-10.2) mg/dL Microbiology - Last 24 Hours (Table) 09/12/21 10:29 Blood Culture - Preliminary Blood No Growth after 48 hours 09/12/21 10:28 Blood Culture - Preliminary Blood No Growth after 48 hours 09/09/21 16:28 Blood Culture - Preliminary Blood No Growth after 96 hours 09/09/21 16:28 Blood Culture - Preliminary Blood No Growth after 96 hours
[2021-09-14] MEDS: TAMSULOSIN 0.4 MG CAP.ER.24H PO SCH (14:12)
--- NOTE | 2021-09-14 15:10 | P.PN ---
Progress Note - Text Progress Note Date: 09/14/21 Chief Complaint: Low blood pressure This is a 61-year-old patient, follows with Dr. Seda Schneider. Chronic stable medical conditions include diabetes, , hyperlipidemia, obstructive sleep apnea uses CPAP, herniated disc / injections,. Patient was in the hospital from 06/26/2021 through July 16 Admitted with pneumonia, severe hypothermia, acute hypoxic respiratory failure, possible sepsis, possible acute congestive heart failure exacerbation. Was intubated. Was discharged on intermittent BiPAP. Upperglade to have possible viral pneumonitis. Was negative for COVID. Was discharged to rehab. At the rehab patient had a poor appetite. Not really able to walk. Patient was at civil [employer] up as found a very low blood pressure. Admitted. Denies any fever and chills. Actually eating better here. Has been having daily bowel movements. Occasional diarrhea. Does feel tired and rundown. Admitted with severe hypotension, acute kidney injury, hypoglycemia. Diuretics were held. IV hydration. PTOT. September 11: Lasted patient abdominal pain. Abdominal x-ray unremarkable. Surgery consulted. Patient's is present. Appetite is actually getting better. Continue IV fluids. Renal function worsening. Start bicarbonate drip. Coughing up some yellow sputum. Add doxycycline for acute bronchitis. Check creatinine kinase. Rule out rhabdomyolysis. September 12: Patient potassium persisted to be high yesterday. In spite of having several medications. Moved to the ICU. Nephrology consulted. Dialysis catheter was placed and patient received hemodialysis late last night. Poor appetite. Tired. Seen by psychiatry. Upperglade to have adjustment disorder. September 13: ICU: Tired and sleepy. Barely eating. I reviewed medications. Patient on Neurontin in the setting of acute kidney injury this can cause the patient to be lethargic. Cut back on the dose. Dialysis today. About half a liter removed. IV Zosyn. September 14: Patient started on Marinol yesterday. Still appetite is poor. Pharyngeal hygiene not good. Discussed with the nurse to get it clean. Including saltwater gargle. Patient bit more awake after cutting back dose of Neurontin. On IV Zosyn. Active Medications Acetaminophen (Acetaminophen Tab 325 Mg Tab) 650 mg PO Q6HR PRN PRN Reason: Mild Pain or Fever > 100.5 Last Admin: 09/12/21 20:09 Dose: 650 mg Documented by: Albuterol/Ipratropium (Ipratropium-Albuterol 3 Ml Neb) 3 ml INHALATION RT-QID [facility] Last Admin: 09/14/21 11:51 Dose: 3 ml Documented by: Apixaban (Apixaban 5 Mg Tab) 5 mg PO BID [facility]; Protocol Last Admin: 09/14/21 08:40 Dose: 5 mg Documented by: Ascorbic Acid (Ascorbic Acid 500 Mg Tab) 1,000 mg PO DAILY@0800 [facility] Last Admin: 09/14/21 08:40 Dose: 1,000 mg Documented by: Budesonide/Formoterol Fumarate (Symbicort 80-4.5 Mcg Inhaler) 2 puff INHALATION RT-BID [facility] Last Admin: 09/14/21 08:09 Dose: 2 puff Documented by: Doxycycline Monohydrate (Doxycycline 50 Mg Cap) 50 mg PO BID [facility]; Protocol Last Admin: 09/14/21 08:42 Dose: 50 mg Documented by: Dronabinol (Dronabinol 2.5 Mg Cap) 5 mg PO AC-BID [facility] Last Admin: 09/14/21 08:40 Dose: 5 mg Documented by: Folic Acid (Folic Acid 1 Mg Tab) 1 mg PO DAILY [facility] Last Admin: 09/14/21 08:40 Dose: 1 mg Documented by: Gabapentin (Gabapentin 100 Mg Cap) 200 mg PO [facility] Glucose (Dextrose 4 Gm Chewable) 4 gm PO Q10M PRN PRN Reason: CBG < 70 mg/dL Sodium Chloride (Saline 0.9%) 1,000 mls @ 75 mls/hr IV .[id number] [facility] Last Admin: 09/14/21 03:36 Dose: Not Given Documented by: Piperacillin Sod/Tazobactam (Sod 3.375 gm/ Sodium Chloride) 100 mls @ 25 mls/hr IVPB Q12HR [facility]; Protocol Last Admin: 09/14/21 08:40 Dose: 25 mls/hr Documented by: Insulin Detemir (Insulin Detemir (Levemir) 100 Unit/Ml Syr) 16 unit SQ HS [facility] Last Admin: 09/13/21 21:21 Dose: 16 unit Documented by: Metoprolol Tartrate (Metoprolol Tartrate 12.5 Mg Tab) 12.5 mg PO TID [facility] Last Admin: 09/14/21 08:40 Dose: 12.5 mg Documented by: Multivitamins (Multivitamins, Thera 1 Each Tab) 1 each PO DAILY [facility] Last Admin: 09/14/21 08:40 Dose: 1 each Documented by: Naloxone HCl (Naloxone 0.4 Mg/Ml 1 Ml Vial) 0.2 mg IV Q2M PRN PRN Reason: Opioid Reversal Ondansetron HCl (Ondansetron 4 Mg Tab) 4 mg PO Q6HR PRN PRN Reason: Nausea And Vomiting Last Admin: 09/12/21 17:12 Dose: 4 mg Documented by: Pantoprazole Sodium (Pantoprazole 40 Mg Tablet) 40 mg PO AC-BRKFST [facility] Ropinirole HCl (Ropinirole Hcl 1 Mg Tab) 1 mg PO [facility] Last Admin: 09/13/21 20:43 Dose: Not Given Documented by: Tamsulosin HCl (Tamsulosin 0.4 Mg Cap.Er.24h) 0.4 mg PO DAILY@1400 [facility] Last Admin: 09/13/21 13:25 Dose: 0.4 mg Documented by: Past medical history to include: COPD, asthma, diabetes, hypertension, hyperlipidemia, obstructive sleep apnea uses CPAP, herniated disc uses injections, pneumonia June 2021 patient intubated Social history: Alcohol occasionally. Occasional cigar. Marijuana occasionally. . At rehab Family history: Skin cancer, macular degeneration Physical examination: VITAL SIGNS: Afebrile, 88, 18, 107/57, 95% GENERAL: laying in bed, awake, tired. EYES: Pupils equal. Conjunctiva normal. HEENT: External appearance of nose and ears normal, oral cavity grossly normal. NECK: JVD not raised; masses not palpable. HEART: First and second heart sounds are normal; no edema. LUNGS: Respiratory rate normal; clear to auscultation. ABDOMEN: Soft, nontender, liver spleen not palpable, no masses palpable. PSYCH: Alert and oriented x3; mood and affect low MUSCULOSKELETAL:No Clubbing/cyanosis;muscles-grossly intact NEUROLOGICAL: Cranial nerves grossly intact; no facial asymmetry, decreased power lower extremity. INVESTIGATIONS, reviewed in the clinical context: September 14: Sodium 135 BUN 39 creatinine 3.31. Blood glucose 64 September 13: White count 7.6 hemoglobin 10.3 platelets 1944.9 BUN 47 creatinine 3.2 to September 12: White count 12.1-year-old and 30.7 sodium 134 potassium 5.9 BUN 38 creatinine 2.76 September 11: Sodium 131 potassium 7.2 BUN 48 creatinine 3.73 White count 6.8 hemoglobin 13.8 platelets 244 sodium 136 potassium 4.9 BUN 40 creatinine 3.41. EKG tracing personally reviewed by me-sinus rhythm, right bundle branch block. Some T waves abnormalities Chest x-ray film personally reviewed by me-possible chronic changes Blood Glucose 36 Assessment and plan: -Severe hypotension, from acute kidney injury from decreased oral intake: Improvement IV fluids -Chronic congestive heart failure. From diastolic dysfunction EF 55-60%: Hold diuretics for now -Acute kidney injury prerenal versus ATN: On renal replacement therapy Daily hemodialysis -Acute metabolic acidosis from worsening renal failure: Better bicarbonate drip-discontinued -Acute severe hyperkalemia from metabolic acidosis: Better -Sinus tachycardia likely from sepsis -Anorexia multifactorial: Not improving Try Marinol -Sepsis. Source unclear. Blood cultures negative to no Empirically started on Zosyn. 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 -Obesity BMI 34 -Adjustment disorder Seen by psychiatry. No medications. -Essential hypertension, currently blood pressure running low Hold off antihypertensive -Restless leg syndrome Requip 1 mg daily at bedtime -Diabetes mellitus type 2 on oral hypoglycemic, uncontrolled with hypoglycemia: Slow to respond Hold of oral hypoglycemic. Follow Accu-Cheks. -Hyperlipidemia Hold off Zocor because of muscle weakness -BPH Flomax 0.4 mg daily -COPD Advair 250/50 one puff twice a day. DuoNeb 4 times a day -Chronic medical debility from recent protracted hospitalization PTOT IV Zosyn. Appetite remains poor. Cultures negative till now. Spoke to the nurse to do saltwater gargle. PTOT.
--- NOTE | 2021-09-14 15:41 | US ---
EXAMINATION TYPE: US gallbladder DATE OF EXAM: 09/14/2021 COMPARISON: NONE CLINICAL HISTORY: RUQ pain. Exam done portable EXAM MEASUREMENTS: Liver Length: 17.7 cm Gallbladder Wall: 0.4 cm CBD: 0.4 cm Right Kidney: 15.1 x 7.5 x 6.6 cm Limited study due to patient body habitus Pancreas: obscured by overlying midline bowel gas Liver: measures in upper limits of normal, mildly heterogeneous Gallbladder: hydropic, cholelithiasis, wall mildly thickened, adenomyomatosis Evidence for sonographic Virgen's sign: yes CBD: visualized portions wnl, limited by overlying bowel gas Right Kidney: measures large in size There is no ascites. IMPRESSION: Exam is somewhat limited technically. Cholelithiasis and possible associated tumefactive sludge, consider adenomyomatosis, there is some gallbladder wall thickening. Pancreas is not visualiz ed. Coarse echotexture within the liver could be due to underlying hepatic steatosis, hepatocellular disease.
--- NOTE | 2021-09-14 16:07 | PN ---
PROGRESS NOTE Patient is seen for followup for acute kidney injury. Patient had significant hyperkalemia on admission and he has been dialyzed. Patient has had two treatments of hemodialysis thus far. Urine output appeared to have picked up yesterday and hemodialysis is currently on hold. However, upon discussion with nursing staff patient has not voided at all. Smith catheter was discontinued yesterday. On examination today, blood pressure was 158/72, heart rate 120 per minute. Patient is afebrile. Oxygen saturation 91% on 2 L. Examination of the heart: S1, S2. Examination of the lungs: Bilateral breath sounds are heard. Abdomen is soft, obese. Examination of lower extremities shows no significant edema. Patient is sleepy but arousable. He has been confused at times. REGULATORY LEADER exam shows patient moving all 4 extremities. Labs show sodium 135, potassium 4.0, serum creatinine 3.31. ASSESSMENT: 1. Acute kidney injury, mostly acute tubular necrosis, currently oliguric, started on dialysis on 09/08/2021, mostly for severe hyperkalemia. Urine output remains low. I will arrange for hemodialysis again tomorrow. 2. Metabolic acidosis associated with acute kidney injury, status post bicarb drip and improved with dialysis. 3. Hyperkalemia associated with acute kidney injury, use of JENSEN inhibitors prior to admission, currently improved post dialysis. PLAN: Repeat hemodialysis in a.m. Monitor urine output closely. Check bladder scan. Rule out urine retention. Check chest x-ray today. MMODL / IJN: [id number] /
--- NOTE | 2021-09-14 16:11 | XR ---
EXAMINATION TYPE: XR chest 1V DATE OF EXAM: 09/14/2021 COMPARISON: X-ray dated 09/11/2021 HISTORY: CHF TECHNIQUE: Single frontal view of the chest is obtained. FINDINGS: Slightly congested pulmonary vasculature probably related to the patient's position. Otherwise no con vincing evidence of pulmonary edema. Grossly unremarkable lungs otherwise. Increased cardiac transver se diameter, please correlate with echocardiographic results. The left CP recess is obscured by the enlarged cardiac shadow. No right-sided pleural effusion or def inite pneumothorax. No gross aggressive bone lesion. IMPRESSION: No gross signs of pulmonary edema. Increased cardiac transverse diameter, please correlate with echoc ardiographic results.
[2021-09-14 16:38] LABS: Glucose,Whole Blood 64 mg/dL (75-99)
[2021-09-14 16:55] LABS: Glucose,Whole Blood 67 mg/dL (75-99)
[2021-09-14 17:29] LABS: Glucose,Whole Blood 67 mg/dL (75-99)
[2021-09-14 20:28] LABS: Glucose,Whole Blood 88 mg/dL (75-99)
[2021-09-14] MEDS ORDERED: GABAPENTIN 100 MG CAP PO SCH (21:00)
[2021-09-14] MEDS: INSULIN DETEMIR (LEVEMIR) 100 UNIT/ML SYR SQ SCH (21:16)
[2021-09-15] MEDS: SODIUM CHLORIDE 0.9% 1,000 ML IV SCH ×3 (04:47→23:40)
[2021-09-15 07:24] LABS: Glucose,Whole Blood 85 mg/dL (75-99)
[2021-09-15] MEDS: METOPROLOL TARTRATE 12.5 MG TAB PO SCH ×3 (07:33→20:27)
[2021-09-15] MEDS: MULTIVITAMINS, THERA 1 EACH TAB PO SCH (07:33)
[2021-09-15] MEDS: APIXABAN 5 MG TAB PO SCH ×2 (07:33→20:27)
[2021-09-15] MEDS: FOLIC ACID 1 MG TAB PO SCH (07:33)
[2021-09-15] MEDS: PANTOPRAZOLE 40 MG TABLET PO SCH (07:33)
[2021-09-15] MEDS: DOXYCYCLINE 50 MG CAP PO SCH ×2 (07:34→20:26)
[2021-09-15] MEDS: ASCORBIC ACID 500 MG TAB PO SCH (07:34)
[2021-09-15] MEDS: PIPERACILLIN-TAZOBACTAM 3.375 GM in SODIUM CHLORIDE 0.9% 100 ML IVPB SCH ×2 (07:35→20:27)
[2021-09-15] MEDS: IPRATROPIUM-ALBUTEROL 3 ML NEB INHALATION SCH ×4 (08:10→21:14)
[2021-09-15] MEDS: SYMBICORT 80-4.5 MCG INHALER INHALATION SCH ×2 (08:10→21:14)
[2021-09-15 11:22] LABS: Glucose,Whole Blood 117 mg/dL (75-99)
--- NOTE | 2021-09-15 12:40 | P.PN ---
Subjective Progress Note Date: 09/15/21 CHIEF COMPLAINT: Abdominal pain HISTORY OF PRESENT ILLNESS: Patient on regular medical floor. He does report right upper quadrant abdominal pain. He does not state he has some pain after eating with nausea. Abdominal ultrasound shows cholelithiasis and possible associated sludge, consider adenomyomatosis, there is some gallbladder wall thickening. Pancreas is not visualized. Coarse echotexture within the liver could be underlying hepatic steatosis, hepatic cellular disease. Afebrile. Patient scheduled for hemodialysis today. Patient seen and examined with Dr. whitaker PHYSICAL EXAM: VITAL SIGNS: Reviewed. GENERAL: Well-developed in no acute distress. HEENT: No sclera icterus. Extraocular movements grossly intact. Moist buccal mucosa. Head is atraumatic, normocephalic. ABDOMEN: Soft. Nondistended. Right upper quadrant tenderness NEUROLOGIC: Alert and oriented. Cranial nerves II through XII grossly intact. ASSESSMENT: 1. Cholecystitis with symptomatic cholelithiasis. Abdominal pain with right upper quadrant tenderness and evidence of cholelithiasis, sludge and gallbladder wall thickening on ultrasound. 2. Acute kidney injury PLAN: -Patient scheduled for laparoscopic cholecystectomy on 09/17/[address] whitaker -Continue supportive care -Continue antibiotics -Add low-fat diet Physician [employer] Specialist note has been reviewed by physician. Signing provider agrees with the documented findings, assessment, and plan of care. Objective - Vital Signs Vital signs: Vital Signs Temp 98.3 F 09/15/21 07:29 Pulse 100 09/15/21 11:31 Resp 18 09/15/21 11:31 BP 97/60 09/15/21 07:29 Pulse Ox 96 09/15/21 08:10 Intake & Output 09/14/21 09/15/21 09/15/21 18:59 06:59 18:59 Intake Total 1540 Output Total 103 Balance 1540 -103 Weight 130 kg Intake: Intake, IV Titration 1000 Amount Piperacillin-Tazobactam 3 100 .375 gm In Sodium Chloride 0.9% 100 ml @ 25 mls/hr IVPB Q12HR ERINN Rx #:[id number] Sodium Chloride 0.9% 1, 900 000 ml @ 75 mls/hr IV . [id number] ERINN Rx#:[id number] Oral 540 Output: Post Void Residual 103 Other: Voiding Method Urinal Urinal Urinal # Voids 1 1 # Bowel Movements 1 - Labs CBC & Chem 7: 09/13/21 06:35 09/14/21 10:36 Labs: Abnormal Lab Results - Last 24 Hours (Table) 09/14/21 09/14/21 09/14/21 Range/Units 16:37 16:54 17:27 POC Glucose (mg/dL) 64 L 67 L 67 L (75-99) mg/dL 09/15/21 Range/Units 11:14 POC Glucose (mg/dL) 117 H (75-99) mg/dL Microbiology - Last 24 Hours (Table) 09/09/21 16:28 Blood Culture - Preliminary Blood No Growth after 120 hours 09/09/21 16:28 Blood Culture - Preliminary Blood No Growth after 120 hours 09/12/21 10:29 Blood Culture - Preliminary Blood No Growth after 48 hours 09/12/21 10:28 Blood Culture - Preliminary Blood No Growth after 48 hours
--- NOTE | 2021-09-15 12:43 | P.PN ---
Subjective Patient is seen for follow-up for acute kidney injury and hyperkalemia. He was significantly hypotensive on initial admission. Serum creatinine had peaked at 3.7 mg/dL but due to the potassium staying elevated at 7.3 patient was dialyzed . Urine output had improved and dialysis was held yesterday to monitor for possible recovery of renal function Smith catheter was discontinued and patient was transferred out of the ICU and he currently has an external cath with minimal urine output He is comfortable. He is not in any acute distress.Sleepy but arousable Objective - Vital Signs Vital signs: Vital Signs Temp 98.3 F 09/15/21 07:29 Pulse 100 09/15/21 11:31 Resp 18 09/15/21 11:31 BP 97/60 09/15/21 07:29 Pulse Ox 96 09/15/21 08:10 Intake & Output 09/14/21 09/15/21 09/15/21 18:59 06:59 18:59 Intake Total 1540 Output Total 103 Balance 1540 -103 Weight 130 kg Intake: Intake, IV Titration 1000 Amount Piperacillin-Tazobactam 3 100 .375 gm In Sodium Chloride 0.9% 100 ml @ 25 mls/hr IVPB Q12HR ERINN Rx #:[id number] Sodium Chloride 0.9% 1, 900 000 ml @ 75 mls/hr IV . [id number] ERINN Rx#:[id number] Oral 540 Output: Post Void Residual 103 Other: Voiding Method Urinal Urinal Urinal # Voids 1 1 # Bowel Movements 1 - Exam Patient is comfortable awake not in any acute distress. He sleepy but arousable. Examination of the heart S1 and S2 Examination lungs bilateral breath sounds are heard Abdomen is soft obese nontender Examination lower extremities shows 1+ edema - Labs CBC & Chem 7: 09/13/21 06:35 09/14/21 10:36 Labs: Abnormal Lab Results - Last 24 Hours (Table) 09/14/21 09/14/21 09/14/21 Range/Units 16:37 16:54 17:27 POC Glucose (mg/dL) 64 L 67 L 67 L (75-99) mg/dL 09/15/21 Range/Units 11:14 POC Glucose (mg/dL) 117 H (75-99) mg/dL Microbiology - Last 24 Hours (Table) 03/06/22 10:29 Blood Culture - Preliminary Blood No Growth after 72 hours 09/12/21 10:28 Blood Culture - Preliminary Blood No Growth after 72 hours 09/09/21 16:28 Blood Culture - Preliminary Blood No Growth after 120 hours 09/09/21 16:28 Blood Culture - Preliminary Blood No Growth after 120 hours Assessment and Plan Assessment: 1. Hyperkalemia associated with acute kidney injury use of JENSEN inhibitor's prior to admission currently improved. He is status post dialysis on and 09/13/2021 Urine output remains on the lower side. 2. Acute kidney injury secondary to ATN from hypotension previous creatinine 0.7 on 08/10/2021. Started dialysis on 09/12/2021 for severe hyperkalemia. Urine output is borderline. Will continue to monitor for recovery of renal function. Urine output remains low patient will be dialyzed again today 3. Metabolic acidosis associated with acute kidney injury status post bicarb drip Plan: Repeat hemodialysis today Continue to avoid nephrotoxic agents Continue to monitor for recovery of renal function.
[2021-09-15] MEDS: TAMSULOSIN 0.4 MG CAP.ER.24H PO SCH (14:15)
--- NOTE | 2021-09-15 15:14 | P.PN ---
Progress Note - Text Progress Note Date: 09/15/21 Chief Complaint: Low blood pressure This is a 61-year-old patient, follows with Dr. Seda Schneider. Chronic stable medical conditions include diabetes, , hyperlipidemia, obstructive sleep apnea uses CPAP, herniated disc / injections,. Patient was in the hospital from 06/26/2021 through July 16 Admitted with pneumonia, severe hypothermia, acute hypoxic respiratory failure, possible sepsis, possible acute congestive heart failure exacerbation. Was intubated. Was discharged on intermittent BiPAP. [place] to have possible viral pneumonitis. Was negative for COVID. Was discharged to rehab. At the rehab patient had a poor appetite. Not really able to walk. Patient was at dough maker up as found a very low blood pressure. Admitted. Denies any fever and chills. Actually eating better here. Has been having daily bowel movements. Occasional diarrhea. Does feel tired and rundown. Admitted with severe hypotension, acute kidney injury, hypoglycemia. Diuretics were held. IV hydration. PTOT. September 11: Lasted patient abdominal pain. Abdominal x-ray unremarkable. Surgery consulted. Patient's is present. Appetite is actually getting better. Continue IV fluids. Renal function worsening. Start bicarbonate drip. Coughing up some yellow sputum. Add doxycycline for acute bronchitis. Check creatinine kinase. Rule out rhabdomyolysis. September 12: Patient potassium persisted to be high yesterday. In spite of having several medications. Moved to the ICU. Nephrology consulted. Dialysis catheter was placed and patient received hemodialysis late last night. Poor appetite. Tired. Seen by psychiatry. [place] to have adjustment disorder. September 13: ICU: Tired and sleepy. Barely eating. I reviewed medications. Patient on Neurontin in the setting of acute kidney injury this can cause the patient to be lethargic. Cut back on the dose. Dialysis today. About half a liter removed. IV Zosyn. September 14: Patient started on Marinol yesterday. Still appetite is poor. Pharyngeal hygiene not good. Discussed with the nurse to get it clean. Including saltwater gargle. Patient bit more awake after cutting back dose of Neurontin. On IV Zosyn. September 15: Patient not really eating. Neurontin cutback 200 mg daily at bedtime. Reminded nurse about pharyngeal tolerate. Not much urine output. IV fluids increased to 130 mL an hour. Hypoglycemic. DC Lantus. Active Medications Acetaminophen (Acetaminophen Tab 325 Mg Tab) 650 mg PO Q6HR PRN PRN Reason: Mild Pain or Fever > 100.5 Last Admin: 09/12/21 20:09 Dose: 650 mg Documented by: Albuterol/Ipratropium (Ipratropium-Albuterol 3 Ml Neb) 3 ml INHALATION RT-QID [facility] Last Admin: 09/15/21 11:19 Dose: 3 ml Documented by: Apixaban (Apixaban 5 Mg Tab) 5 mg PO BID [facility]; Protocol Last Admin: 09/15/21 07:33 Dose: 5 mg Documented by: Ascorbic Acid (Ascorbic Acid 500 Mg Tab) 1,000 mg PO DAILY@0800 [facility] Last Admin: 09/15/21 07:34 Dose: 1,000 mg Documented by: Budesonide/Formoterol Fumarate (Symbicort 80-4.5 Mcg Inhaler) 2 puff INHALATION RT-BID [facility] Last Admin: 09/15/21 08:10 Dose: 2 puff Documented by: Doxycycline Monohydrate (Doxycycline 50 Mg Cap) 50 mg PO BID [facility]; Protocol Last Admin: 09/15/21 07:34 Dose: 50 mg Documented by: Folic Acid (Folic Acid 1 Mg Tab) 1 mg PO DAILY [facility] Last Admin: 09/15/21 07:33 Dose: 1 mg Documented by: Gabapentin (Gabapentin 100 Mg Cap) 100 mg PO [facility] Glucose (Dextrose 4 Gm Chewable) 4 gm PO Q10M PRN PRN Reason: CBG < 70 mg/dL Piperacillin Sod/Tazobactam (Sod 3.375 gm/ Sodium Chloride) 100 mls @ 25 mls/hr IVPB Q12HR [facility]; Protocol Last Admin: 09/15/21 07:35 Dose: 25 mls/hr Documented by: Sodium Chloride (Saline 0.9%) 1,000 mls @ 130 mls/hr IV .Q7H42M [facility] Last Admin: 09/15/21 11:37 Dose: 130 mls/hr Documented by: Insulin Detemir (Insulin Detemir (Levemir) 100 Unit/Ml Syr) 16 unit SQ HS [facility] Last Admin: 09/14/21 21:16 Dose: Not Given Documented by: Metoprolol Tartrate (Metoprolol Tartrate 12.5 Mg Tab) 12.5 mg PO TID [facility] Last Admin: 09/15/21 14:16 Dose: 12.5 mg Documented by: Multivitamins (Multivitamins, Thera 1 Each Tab) 1 each PO DAILY [facility] Last Admin: 09/15/21 07:33 Dose: 1 each Documented by: Naloxone HCl (Naloxone 0.4 Mg/Ml 1 Ml Vial) 0.2 mg IV Q2M PRN PRN Reason: Opioid Reversal Ondansetron HCl (Ondansetron 4 Mg Tab) 4 mg PO Q6HR PRN PRN Reason: Nausea And Vomiting Last Admin: 09/12/21 17:12 Dose: 4 mg Documented by: Pantoprazole Sodium (Pantoprazole 40 Mg Tablet) 40 mg PO AC-BRKFST [facility] Last Admin: 09/15/21 07:33 Dose: 40 mg Documented by: Ropinirole HCl (Ropinirole Hcl 1 Mg Tab) 1 mg PO HS [facility] Last Admin: 09/14/21 21:16 Dose: 1 mg Documented by: Tamsulosin HCl (Tamsulosin 0.4 Mg Cap.Er.24h) 0.4 mg PO DAILY@1400 [facility] Last Admin: 09/15/21 14:15 Dose: 0.4 mg Documented by: Past medical history to include: COPD, asthma, diabetes, hypertension, hyperlipidemia, obstructive sleep apnea uses CPAP, herniated disc uses injections, pneumonia June 2021 patient intubated Social history: Alcohol occasionally. Occasional cigar. Marijuana occasionally. . At rehab Family history: Skin cancer, macular degeneration Physical examination: VITAL SIGNS: 98.5, 110, 20, 93/51, 98% 2 L GENERAL: laying in bed, awake, tired. EYES: Pupils equal. Conjunctiva normal. HEENT: External appearance of nose and ears normal, oral cavity grossly normal. NECK: JVD not raised; masses not palpable. HEART: First and second heart sounds are normal; no edema. LUNGS: Respiratory rate normal; clear to auscultation. ABDOMEN: Soft, nontender, liver spleen not palpable, no masses palpable. PSYCH: Answering questions, sleepy MUSCULOSKELETAL:No Clubbing/cyanosis;muscles-grossly intact NEUROLOGICAL: Cranial nerves grossly intact; no facial asymmetry, decreased power lower extremity. INVESTIGATIONS, reviewed in the clinical context: September 14: Sodium 135 BUN 39 creatinine 3.31. Blood glucose 64 September 13: White count 7.6 hemoglobin 10.3 platelets 1944.9 BUN 47 creatinine 3.2 to September 12: White count 12.1-year-old and 30.7 sodium 134 potassium 5.9 BUN 38 creatinine 2.76 September 11: Sodium 131 potassium 7.2 BUN 48 creatinine 3.73 White count 6.8 hemoglobin 13.8 platelets 244 sodium 136 potassium 4.9 BUN 40 creatinine 3.41. EKG tracing personally reviewed by me-sinus rhythm, right bundle branch block. Some T waves abnormalities Chest x-ray film personally reviewed by me-possible chronic changes Blood Glucose 36 Assessment and plan: -Severe hypotension, from acute kidney injury from decreased oral intake: Blood pressure remains on the lower side. IV fluids -Chronic congestive heart failure. From diastolic dysfunction EF 55-60%: Hold diuretics for now -Acute kidney injury prerenal versus ATN: On renal replacement therapy Daily hemodialysis -Acute metabolic acidosis from worsening renal failure: Better bicarbonate drip-discontinued -Acute severe hyperkalemia from metabolic acidosis: Better -Sinus tachycardia likely from sepsis -Anorexia multifactorial: Not improving Try Marinol -Gallstones. Possible cholecystitis. IV Zosyn. For cholecystectomy this Monday -Sepsis. Source unclear. Blood cultures negative to no Empirically started on Zosyn. 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 -Obesity BMI 34 -Adjustment disorder Seen by psychiatry. No medications. -Essential hypertension, currently blood pressure running low Hold off antihypertensive -Restless leg syndrome Requip 1 mg daily at bedtime -Diabetes mellitus type 2 on oral hypoglycemic, uncontrolled with hypoglycemia: Slow to respond Hold of oral hypoglycemic. Follow Accu-Cheks. -Hyperlipidemia Hold off Zocor because of muscle weakness -BPH Flomax 0.4 mg daily -COPD Advair 250/50 one puff twice a day. DuoNeb 4 times a day -Chronic medical debility from recent protracted hospitalization PTOT IV Zosyn. Appetite remains poor. Oral cavity cleaning.. Poor urine output. Hemodialysis today. DC Marinol. Cultures negative. Dr. Jackson called me today that patient probably need cholecystectomy. Being scheduled for Monday.
[2021-09-15 16:50] LABS: Glucose,Whole Blood 94 mg/dL (75-99)
[2021-09-15] MEDS: GABAPENTIN 100 MG CAP PO SCH (20:27)
[2021-09-15 20:51] LABS: Glucose,Whole Blood 96 mg/dL (75-99)
[2021-09-16 06:37] LABS: Glucose,Whole Blood 101 mg/dL (75-99)
[2021-09-16] MEDS: FOLIC ACID 1 MG TAB PO SCH (08:37)
[2021-09-16] MEDS: DOXYCYCLINE 50 MG CAP PO SCH ×2 (08:37→21:14)
[2021-09-16] MEDS: PIPERACILLIN-TAZOBACTAM 3.375 GM in SODIUM CHLORIDE 0.9% 100 ML IVPB SCH ×2 (08:37→22:02)
[2021-09-16] MEDS: ASCORBIC ACID 500 MG TAB PO SCH (08:37)
[2021-09-16] MEDS: PANTOPRAZOLE 40 MG TABLET PO SCH (08:37)
[2021-09-16] MEDS: METOPROLOL TARTRATE 12.5 MG TAB PO SCH ×3 (08:38→21:14)
[2021-09-16] MEDS: MULTIVITAMINS, THERA 1 EACH TAB PO SCH (08:38)
[2021-09-16] MEDS: SYMBICORT 80-4.5 MCG INHALER INHALATION SCH ×2 (09:05→19:22)
[2021-09-16] MEDS: IPRATROPIUM-ALBUTEROL 3 ML NEB INHALATION SCH ×4 (09:05→19:22)
[2021-09-16 09:13] LABS: Anisocytosis Slight; Basophils % (A) 0 %; Eosinophils # (A) 0.1 k/uL (0-0.7); Eosinophils % (A) 1 %; HCT 39.3 % (39.0-53.0); HGB 11.7 gm/dL (13.0-17.5); Hypochromasia Marked; Lymphocytes # (A) 0.6 k/uL (1.0-4.8); Lymphocytes % (A) 7 %; MCH 27.9 pg (25.0-35.0); MCHC 29.7 g/dL (31.0-37.0); MCV 94.1 fL (80.0-100.0); Mean Platelet Volume 7.3; Monocytes # (A) 0.4 k/uL (0-1.0); Monocytes % (A) 4 %; Neutrophils # (A) 7.7 k/uL (1.3-7.7); Neutrophils % (A) 86 %; Platelet Count 327 k/uL (150-450); RBC 4.18 m/uL (4.30-5.90); RDW 16.7 % (11.5-15.5); WBC 8.9 k/uL (3.8-10.6)
[2021-09-16 09:41] LABS: ALT 49 U/L (4-49); AST 45 U/L (17-59); African American GFR (CKD) 17 (>60 ml/min/1.73 sqM); Albumin 2.5 g/dL (3.5-5.0); Albumin/Globulin Ratio 0.9; Alkaline Phosphatase 262 U/L (38-126); Anion Gap 16 mmol/L; Blood Urea Nitrogen 35 mg/dL (9-20); Calcium 8.1 mg/dL (8.4-10.2); Carbon Dioxide 15 mmol/L (22-30); Chloride 107 mmol/L (98-107); Globulin 2.8 g/dL; Glucose 93 mg/dL (74-99); Non-African American GFR(CKD) 15 (>60 ml/min/1.73 sqM); Potassium 4.2 mmol/L (3.5-5.1); Sodium 138 mmol/L (137-145); Total Bilirubin 0.9 mg/dL (0.2-1.3); Total Protein 5.3 g/dL (6.3-8.2)
--- NOTE | 2021-09-16 10:35 | P.PN ---
Subjective Progress Note Date: 09/16/21 Principal diagnosis: Shortness of breath 61-year-old male patient, who was transferred to the hospital on 09/09/2021 from the long term where he was residing. The patient was sent to medical [facility] for further rehabilitation as the patient had a prolonged hospitalization back in June 2021 that extended to July 2021. At that time, the patient had a very complicated course as the patient was intubated and placed on a mechanical ventilator on 06/25/2021. He presented to us hypothermic, had pneumonia and sepsis and complete opacification of the left lung. During the course of his illness, he Is negative for microbial growth and he also tested negative for COVID 19. He underwent bronchoscopy 2 on 06/27/2021 and 07/03/2021. His left lung gradually reexpanded. Post extubation, he was given BiPAP. He is known to have asthma, diabetes, hypertension, hyperlipidemia and obstructive sleep apnea and BPH. He was given aggressive chest PT, percussion, deep breathing and pulmonary toileting and based on his generalized weakness, he was sent for rehabilitation. During this current admission, the patient reports that he was not doing well. He does not get to the point where he was ambulatory. Obviously is a non-reliable historian. He states that he was not feeling well. He was feeling weak. He was not eating much. He did not like the food and his oral intake was quite diminished. He came into the ED with hypotension with a blood pressure of 70/50. The patient's potassium level initially was at 4.9 and the patient was in acute kidney injury. Subsequently, the potassium came up to 7.3. Various treatments done to improve the potassium and failed and ultimately, the patient got transferred to the ICU for hyperkalemia. He was given a dialysis catheter and he received a session of hemodialysis yesterday. This morning, his potassium level is down to 5.9. Creatinine is improving. Urine output is in order of 20-25 mL an hour. He has a dialysis catheter in his right groin. He has no signs of any respiratory distress. Chest x-rays unchanged and there is a stable atelectasis in left lung base. The patient remains about O2 and currently he is a 96% pulse ox. Most recent BP is 88/50 from this morning. He was noted to be tachycardic over the past 24 hours. Cardiac rhythm is sinus. White cell count is at low hemoglobin 15.7 and a platelet count of 195. Note. Indication of an underlying infection. The patient's UA was not showing any signs of infection. Blood cultures 2 were sent from admission are negative. He has stage II wounds. No significant cough sputum production. No wheezing. No altered mentation or headache or neck stiffness. In the ICU, give this patient a bolus of 1 L. I started him on IV Zosyn and IV. The ulcers. He is on Levemir insulin 16 units at bedtime along with a sliding scale coverage. On 09/13/2021 patient seen in follow-up in the intensive care unit. He is awake and alert, in no acute distress, he is resting comfortably in bed, denies any dyspnea. Room air pulse ox is 94%, patient is having hemodialysis treatment. He did wear CPAP support last night. Patient remains on empiric antibiotics with doxycycline and Zosyn. Patient continues to have low-grade fevers and a T- max in the last 24 hours was 101.6F at 8:00 in the morning yesterday. No cough, no chest discomfort, no hemoptysis. Hemodynamically stable, he is receiving IV fluids normal saline at a rate of 75 ML per hour. Breathing is nonlabored, comfortable. His chest x-ray on 09/11/2021 showed mild blunting of the left costophrenic angle, clear right lung. Today's labs have been reviewed with blood cell count is 7.6, hemoglobin is 11.3, platelet count is 194, sodium is 132, the rest of electrolytes were within normal limits, BUN is 47, creatinine is 3.22. Patient is not requiring any vasopressor support, echocardiogram has been completed showing moderate concentric LVH, EF of 55-60%, and severe enlargement of the right ventricle. On 09/14/2021 patient seen in follow-up on selective care unit, he is resting in bed, breathing comfortably, lung sounds are essentially clear to auscultation, no rhonchi no wheezing, denies any cough, no phlegm production or chest discomfort. She did wear his CPAP device at night. At the on room air pulse ox is 95%, he was dialyzed yesterday and 900 mL of fluid was removed with hemodialysis. No plans for hemodialysis today according to the patient. Today's labs have been reviewed, sodium is 135, the rest of electrolytes are within normal limits, BUN is 39, creatinine is 3.31. 4 sets of blood cultures have shown no growth thus far since admission. Unclear the source of possible infection, patient remains on antibiotics for empiric antibiotic coverage, as patient for pneumonia is low On 09/16/2021 patient seen in follow-up on medical surgical floor, he is resting in bed, does not appear to be in any acute distress, he is currently it is of oxygen, he is satting 96%, at night he is been wearing his CPAP device from home. Denies any worsening dyspnea, no complaints of chest discomfort, still has some mild generalized edema. Today's labs have been reviewed, white blood cell count is 8.9, hemoglobin is 11.7, sodium is 138, potassium is 4.2, chloride is 107, CO2 is 15, B1 is 35, creatinine is 4.09. Nephrology is following, and had hemodialysis treatment yesterday with removal 1.3 L of fluid. Appetite is fair, no nausea or vomiting, however patient is incontinent of liquid brown stool. Patient has had no fever or chills, his blood cultures have been negative, as of dyspnea or cough, no phlegm production, breathing comfortably, lung sounds are clear. His last chest x-ray was on 09/14/2021 grossly unremarkable lungs Objective - Vital Signs Vital signs: Vital Signs Temp 98.1 F 09/16/21 07:07 Pulse 89 09/16/21 09:09 Resp 18 09/16/21 08:48 BP 136/79 09/16/21 07:07 Pulse Ox 98 09/16/21 07:07 Intake & Output 09/15/21 09/16/21 09/16/21 18:59 06:59 18:59 Intake Total 300 700 Output Total 1521 Balance -1221 700 Intake: Intake, IV Titration 600 Amount Sodium Chloride 0.9% 1, 600 000 ml @ 50 mls/hr IV . Q20H [facility] Rx#:[id number] Oral 100 Hemodialysis 300 Output: Post Void Residual 221 Hemodialysis 1300 Other: Voiding Method Urinal External Catheter External Catheter # Voids 0 # Bowel Movements 1 - Exam GENERAL EXAM: Alert, very pleasant 61-year-old white male, on room air with pulse ox of 95%, comfortable in no apparent distress. HEAD: Normocephalic/atraumatic. EYES: Normal reaction of pupils, equal size. Conjunctiva pink, sclera white. NOSE: Clear with pink turbinates. THROAT: No erythema or exudates. NECK: No masses, no JVD, no thyroid enlargement, no adenopathy. CHEST: No chest wall deformity. Symmetrical expansion. LUNGS: Equal air entry with no crackles, wheeze, rhonchi or dullness. CVS: Regular rate and rhythm, normal S1 and S2, no gallops, no murmurs, no rubs ABDOMEN: Soft, nontender. No hepatosplenomegaly, normal bowel sounds, no guarding or rigidity. EXTREMITIES: No clubbing, no edema, no cyanosis, 2+ pulses and upper and lower extremities. Left arm swelling noted, patient has a IV in the left forearm, rule out possibility of an infiltrated IV MUSCULOSKELETAL: Muscle strength and tone normal. SPINE: No scoliosis or deformity SKIN: No rashes CENTRAL NERVOUS SYSTEM: Alert and oriented -3. No focal deficits, tone is normal in all 4 extremities. PSYCHIATRIC: Alert and oriented -3. Appropriate affect. Intact judgment and insight. - Labs CBC & Chem 7: 09/16/21 08:47 09/16/21 08:47 Labs: Abnormal Lab Results - Last 24 Hours (Table) 09/15/21 09/16/21 09/16/21 Range/Units 11:14 06:36 08:47 RBC 4.18 L (4.30-5.90) m/uL Hgb 11.7 L (13.0-17.5) gm/dL MCHC 29.7 L (31.0-37.0) g/dL RDW 16.7 H (11.5-15.5) % Lymphocytes # 0.6 L (1.0-4.8) k/uL Carbon Dioxide (22-30) mmol/L BUN (9-20) mg/dL Creatinine (0.66-1.25) mg/dL POC Glucose (mg/dL) 117 H 101 H (75-99) mg/dL Calcium (8.4-10.2) mg/dL Alkaline Phosphatase (38-126) U/L Total Protein (6.3-8.2) g/dL Albumin (3.5-5.0) g/dL 09/16/21 Range/Units 08:47 RBC (4.30-5.90) m/uL Hgb (13.0-17.5) gm/dL MCHC (31.0-37.0) g/dL RDW (11.5-15.5) % Lymphocytes # (1.0-4.8) k/uL Carbon Dioxide 15 L (22-30) mmol/L BUN 35 H (9-20) mg/dL Creatinine 4.09 H (0.66-1.25) mg/dL POC Glucose (mg/dL) (75-99) mg/dL Calcium 8.1 L (8.4-10.2) mg/dL Alkaline Phosphatase 262 H (38-126) U/L Total Protein 5.3 L (6.3-8.2) g/dL Albumin 2.5 L (3.5-5.0) g/dL Microbiology - Last 24 Hours (Table) 09/09/21 16:28 Blood Culture - Final Blood No Growth after 144 hours 09/09/21 16:28 Blood Culture - Final Blood No Growth after 144 hours 09/12/21 10:29 Blood Culture - Preliminary Blood No Growth after 72 hours 09/12/21 10:28 Blood Culture - Preliminary Blood No Growth after 72 hours Assessment and Plan Plan: Assessment: #1. Acute kidney injury under investigation. Patient did not respond to conven tional treatments, and ultimately was started on hemodialysis during this admission and currently patient's electrolytes and urine output has improved #2. Non-anion gap metabolic acidosis, improved #3. Acute hyperkalemia, resolved with hemodialysis, current potassium level is 4.0 #4. Acute febrile illness under investigation, cultures have shown no growth, chest x-ray showed mild oral reaction at the left lung base. UA was not showing any signs of infection. No significant pulmonary symptoms, no cough, no sputum production no wheezing, no altered mentation. Currently covered with a co mbination of Zosyn and doxycycline. #5. Hypotension sinus tachycardia could be related to underlying infection/sepsis currently under investigation #6. Morbid obesity with BMI 41.8 #7. History of acute hypoxic respiratory failure on the mechanical ventilator back in mid June 2021 with left lung collapse post bronchoscopy 2 #8. Bronchial asthma, chronic, unspecified #9. Diabetes note this type II #10. Hyperlipidemia #11. Hypertension #12. Obstructive sleep apnea on CPAP therapy #13. BPH #14. Diarrhea, rule out C. diff Plan: Continue CPAP device from home and bedtime From pulmonary perspective patient has remained stable Last chest x-ray from 09/14/2021 showed grossly unremarkable lungs No complaints of dyspnea or cough, no phlegm production Today's labs have been noted Patient started to have diarrhea, we'll send the stool for C. diff Further recommendations for hemodialysis from nephrology Physical therapy evaluation We'll continue to follow I have personally seen and examined the patient, performed the documentation and the assessment and plan as written. Number of minutes spent on the visit: [10] Time with Patient: Less than 30
[2021-09-16] MEDS: SODIUM CHLORIDE 0.9% 1,000 ML IV SCH (11:13)
--- NOTE | 2021-09-16 11:50 | P.PN ---
Subjective Progress Note Date: 09/16/21 CHIEF COMPLAINT: Abdominal pain HISTORY OF PRESENT ILLNESS: Patient continues to report right upper quadrant abdominal pain. He is having loose stools. Denies any vomiting. Afebrile. WBC 8.9 hemoglobin 11.7 platelets 27 potassium 4.2 creatinine 4.09 Patient seen and examined with Dr. whitaker PHYSICAL EXAM: VITAL SIGNS: Reviewed. GENERAL: Well-developed in no acute distress. HEENT: No sclera icterus. Extraocular movements grossly intact. Moist buccal mucosa. Head is atraumatic, normocephalic. ABDOMEN: Soft. Nondistended. Right upper quadrant tenderness NEUROLOGIC: Alert and oriented. Cranial nerves II through XII grossly intact. ASSESSMENT: 1. Cholecystitis with symptomatic cholelithiasis. Abdominal pain with right upper quadrant tenderness and evidence of cholelithiasis, sludge and gallbladder wall thickening on ultrasound. 2. Acute kidney injury PLAN: -Patient scheduled for laparoscopic cholecystectomy tomorrow, 09/17/[address] whitaker -Nothing by mouth after midnight -Eliquis discontinued in preparation for surgery -Continue supportive care -Continue antibiotics Physician Surgery Scheduler note has been reviewed by physician. Signing provider agrees with the documented findings, assessment, and plan of care. Objective - Vital Signs Vital signs: Vital Signs Temp 98.1 F 09/16/21 07:07 Pulse 89 09/16/21 09:09 Resp 18 09/16/21 08:48 BP 136/79 09/16/21 07:07 Pulse Ox 98 09/16/21 07:07 Intake & Output 09/15/21 09/16/21 09/16/21 18:59 06:59 18:59 Intake Total 300 700 Output Total 1521 Balance -1221 700 Intake: Intake, IV Titration 600 Amount Sodium Chloride 0.9% 1, 600 000 ml @ 50 mls/hr IV . Q20H [facility] Rx#:[id number] Oral 100 Hemodialysis 300 Output: Post Void Residual 221 Hemodialysis 1300 Other: Voiding Method Urinal External Catheter External Catheter # Voids 0 # Bowel Movements 1 - Labs CBC & Chem 7: 09/16/21 08:47 09/16/21 08:47 Labs: Abnormal Lab Results - Last 24 Hours (Table) 09/16/21 09/16/21 09/16/21 Range/Units 06:36 08:47 08:47 RBC 4.18 L (4.30-5.90) m/uL Hgb 11.7 L (13.0-17.5) gm/dL MCHC 29.7 L (31.0-37.0) g/dL RDW 16.7 H (11.5-15.5) % Lymphocytes # 0.6 L (1.0-4.8) k/uL Carbon Dioxide 15 L (22-30) mmol/L BUN 35 H (9-20) mg/dL Creatinine 4.09 H (0.66-1.25) mg/dL POC Glucose (mg/dL) 101 H (75-99) mg/dL Calcium 8.1 L (8.4-10.2) mg/dL Alkaline Phosphatase 262 H (38-126) U/L Total Protein 5.3 L (6.3-8.2) g/dL Albumin 2.5 L (3.5-5.0) g/dL Microbiology - Last 24 Hours (Table) 09/09/21 16:28 Blood Culture - Final Blood No Growth after 144 hours 09/09/21 16:28 Blood Culture - Final Blood No Growth after 144 hours 09/12/21 10:29 Blood Culture - Preliminary Blood No Growth after 72 hours 09/12/21 10:28 Blood Culture - Preliminary Blood No Growth after 72 hours
[2021-09-16 11:59] LABS: Glucose,Whole Blood 127 mg/dL (75-99)
--- NOTE | 2021-09-16 12:04 | P.PN ---
Progress Note - Text Progress Note Date: 09/16/21 Interval History: Patient was seen at bedside for re-evaluation of depression. As per review of the patient's chart and discussion with the nurse, the patient has been lethargic and not eating much.Marinol was started for appetite on 09/14/2021. Currently the patient responds in short "yes-no" responses however is quite somenolent so history was limited. The patient acknowledges as decreased appetite. He however does not answer any further questions. Mental Status Exam: General Appearance: Patient appears to be stated age is morbidly obese, disheveled, and dressed in a hospial gown. Mouth appears dry. Behavior: Patient appears quite somnolent and difficult to arouse. Speech: Patient's speech is minimal, soft in volume, and non spontaneous. Mood/Affect: Mood cannot be assessed. Affect is fatigued and somnolent. Suicidality/Homicidality: Unable to assess Perceptions: Unable to assess Though content/process:Unable to assess Memory and concentration: Unable to assess Judgment and insight: Unable to assess Vital Signs Temp 98.1 F 09/16/21 07:07 Pulse 88 09/16/21 12:01 Resp 18 09/16/21 08:48 BP 136/79 09/16/21 07:07 Pulse Ox 98 09/16/21 07:07 Intake & Output 09/15/21 09/16/21 09/16/21 18:59 06:59 18:59 Intake Total 300 700 Output Total 1521 Balance -1221 700 Intake: Intake, IV Titration 600 Amount Sodium Chloride 0.9% 1, 600 000 ml @ 50 mls/hr IV . Q20H [facility] Rx#:[id number] Oral 100 Hemodialysis 300 Output: Post Void Residual 221 Hemodialysis 1300 Other: Voiding Method Urinal External Catheter External Catheter # Voids 0 # Bowel Movements 1 Laboratory Results - Last 24 Hours 09/15/21 09/15/21 09/16/21 16:49 20:49 06:36 WBC RBC Hgb Hct MCV MCH MCHC RDW Plt Count MPV Neutrophils % Lymphocytes % Monocytes % Eosinophils % Basophils % Neutrophils # Lymphocytes # Monocytes # Eosinophils # Basophils # Hypochromasia Anisocytosis Sodium Potassium Chloride Carbon Dioxide Anion Gap BUN Creatinine Est GFR (CKD-EPI)AfAm Est GFR (CKD-EPI)NonAf Glucose POC Glucose (mg/dL) 94 96 101 H POC Glu Oil Heater Operator ID Kay Gutierrez, Maru Gonsales Calcium Total Bilirubin AST ALT Alkaline Phosphatase Total Protein Albumin Globulin Albumin/Globulin Ratio 09/16/21 09/16/21 09/16/21 08:47 08:47 11:57 WBC 8.9 RBC 4.18 L Hgb 11.7 L Hct 39.3 MCV 94.1 MCH 27.9 MCHC 29.7 L RDW 16.7 H Plt Count 327 MPV 7.3 Neutrophils % 86 Lymphocytes % 7 Monocytes % 4 Eosinophils % 1 Basophils % 0 Neutrophils # 7.7 Lymphocytes # 0.6 L Monocytes # 0.4 Eosinophils # 0.1 Basophils # 0.0 Hypochromasia Marked Anisocytosis Slight Sodium 138 Potassium 4.2 Chloride 107 Carbon Dioxide 15 L Anion Gap 16 BUN 35 H Creatinine 4.09 H Est GFR (CKD-EPI)AfAm 17 Est GFR (CKD-EPI)NonAf 15 Glucose 93 POC Glucose (mg/dL) 127 H POC Glu Oil Heater Operator ID Maru Calzada Calcium 8.1 L Total Bilirubin 0.9 AST 45 ALT 49 Alkaline Phosphatase 262 H Total Protein 5.3 L Albumin 2.5 L Globulin 2.8 Albumin/Globulin Ratio 0.9 Assessment Suspect adjustment disorder due to prolonged hospitalization. Unable to ascertain criteria for depressive disorder. Adjustment disorder is treated by treating underlying stressful stimuli, which is likely pneumonia, hypoxic respiratory failure and prolong hospitalization. Plan: -The patient DOES NOT meet criteria for psychiatric hospitalization. -Continue with your medical management. We will not add medications at this time as there is no clear diagnosis warranting psychotropics for mood disorder. Can c onsider addition of remeron 15 at bedtime for appetite stimulation however patient already appears quite somnolent and the medication make contribute further to sedation. -Please contact Psychiatry with any questions or reconsult if necessary. Psychiatry will sign off at this time.
--- NOTE | 2021-09-16 12:52 | P.PN ---
Subjective Patient is seen for follow-up for acute kidney injury and hyperkalemia. He was significantly hypotensive on initial admission. Serum creatinine had peaked at 3.7 mg/dL but due to the potassium staying elevated at 7.3 patient was dialyzed . Urine output had improved and dialysis was held to monitor for possible recovery of renal function Smith catheter was discontinued and patient was transferred out of the ICU and he currently has an external cath with minimal urine output He is comfortable. He is not in any acute distress.Sleepy but arousable. Mentation appears to be slightly better today Objective - Vital Signs Vital signs: Vital Signs Temp 98.1 F 09/16/21 07:07 Pulse 91 09/16/21 12:09 Resp 18 09/16/21 08:48 BP 136/79 09/16/21 07:07 Pulse Ox 98 09/16/21 07:07 Intake & Output 09/15/21 09/16/21 09/16/21 18:59 06:59 18:59 Intake Total 300 700 Output Total 1521 Balance -1221 700 Intake: Intake, IV Titration 600 Amount Sodium Chloride 0.9% 1, 600 000 ml @ 50 mls/hr IV . Q20H [facility] Rx#:[id number] Oral 100 Hemodialysis 300 Output: Post Void Residual 221 Hemodialysis 1300 Other: Voiding Method Urinal External Catheter External Catheter # Voids 0 # Bowel Movements 1 - Exam Patient is comfortable awake not in any acute distress. He sleepy but arousable. Examination of the heart S1 and S2 Examination lungs bilateral breath sounds are heard Abdomen is soft obese nontender Examination lower extremities shows 1+ edema - Labs CBC & Chem 7: 09/16/21 08:47 09/16/21 08:47 Labs: Abnormal Lab Results - Last 24 Hours (Table) 09/16/21 09/16/21 09/16/21 Range/Units 06:36 08:47 08:47 RBC 4.18 L (4.30-5.90) m/uL Hgb 11.7 L (13.0-17.5) gm/dL MCHC 29.7 L (31.0-37.0) g/dL RDW 16.7 H (11.5-15.5) % Lymphocytes # 0.6 L (1.0-4.8) k/uL Carbon Dioxide 15 L (22-30) mmol/L BUN 35 H (9-20) mg/dL Creatinine 4.09 H (0.66-1.25) mg/dL POC Glucose (mg/dL) 101 H (75-99) mg/dL Calcium 8.1 L (8.4-10.2) mg/dL Alkaline Phosphatase 262 H (38-126) U/L Total Protein 5.3 L (6.3-8.2) g/dL Albumin 2.5 L (3.5-5.0) g/dL 09/16/21 Range/Units 11:57 RBC (4.30-5.90) m/uL Hgb (13.0-17.5) gm/dL MCHC (31.0-37.0) g/dL RDW (11.5-15.5) % Lymphocytes # (1.0-4.8) k/uL Carbon Dioxide (22-30) mmol/L BUN (9-20) mg/dL Creatinine (0.66-1.25) mg/dL POC Glucose (mg/dL) 127 H (75-99) mg/dL Calcium (8.4-10.2) mg/dL Alkaline Phosphatase (38-126) U/L Total Protein (6.3-8.2) g/dL Albumin (3.5-5.0) g/dL Microbiology - Last 24 Hours (Table) 09/12/21 10:28 Blood Culture - Preliminary Blood No Growth after 96 hours 09/12/21 10:29 Blood Culture - Preliminary Blood No Growth after 96 hours 09/09/21 16:28 Blood Culture - Final Blood No Growth after 144 hours 09/09/21 16:28 Blood Culture - Final Blood No Growth after 144 hours Assessment and Plan Assessment: 1. Hyperkalemia associated with acute kidney injury use of JENSEN inhibitor's prior to admission currently improved. He is status post dialysis on and 09/13/2021 Urine output remains on the lower side. 2. Acute kidney injury secondary to ATN from hypotension previous creatinine 0.7 on 08/10/2021. Started dialysis on 09/12/2021 for severe hyperkalemia. Urine output is borderline. Will continue to monitor for recovery of renal function. Urine output remains low patient will be dialyzed again tomorrow 3. Metabolic acidosis associated with acute kidney injury status post bicarb drip. Expect further improvement with hemodialysis tomorrow Plan: Repeat hemodialysis in a.m. Continue to avoid nephrotoxic agents Continue to monitor for recovery of renal function. Accurate I's and O's
[2021-09-16] MEDS: TAMSULOSIN 0.4 MG CAP.ER.24H PO SCH (14:43)
--- NOTE | 2021-09-16 15:51 | P.PN ---
Progress Note - Text Progress Note Date: 09/16/21 Chief Complaint: Low blood pressure This is a 61-year-old patient, follows with Dr. Seda Schneider. Chronic stable medical conditions include diabetes, , hyperlipidemia, obstructive sleep apnea uses CPAP, herniated disc / injections,. Patient was in the hospital from 06/26/2021 through July 16 Admitted with pneumonia, severe hypothermia, acute hypoxic respiratory failure, possible sepsis, possible acute congestive heart failure exacerbation. Was intubated. Was discharged on intermittent BiPAP. [place] to have possible viral pneumonitis. Was negative for COVID. Was discharged to rehab. At the rehab patient had a poor appetite. Not really able to walk. 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 Admitted. Denies any fever and chills. Actually eating better here. Has been having daily bowel movements. Occasional diarrhea. Does feel tired and rundown. Admitted with severe hypotension, acute kidney injury, hypoglycemia. Diuretics were held. IV hydration. PTOT. September 11: Lasted patient abdominal pain. Abdominal x-ray unremarkable. Surgery consulted. Patient's is present. Appetite is actually getting better. Continue IV fluids. Renal function worsening. Start bicarbonate drip. Coughing up some yellow sputum. Add doxycycline for acute bronchitis. Check creatinine kinase. Rule out rhabdomyolysis. September 12: Patient potassium persisted to be high yesterday. In spite of having several medications. Moved to the ICU. Nephrology consulted. Dialysis catheter was placed and patient received hemodialysis late last night. Poor appetite. Tired. Seen by psychiatry. [place] to have adjustment disorder. September 13: ICU: Tired and sleepy. Barely eating. I reviewed medications. Patient on Neurontin in the setting of acute kidney injury this can cause the patient to be lethargic. Cut back on the dose. Dialysis today. About half a liter removed. IV Zosyn. September 14: Patient started on Marinol yesterday. Still appetite is poor. Pharyngeal hygiene not good. Discussed with the nurse to get it clean. Including saltwater gargle. Patient bit more awake after cutting back dose of Neurontin. On IV Zosyn. September 15: Patient not really eating. Neurontin cutback 200 mg daily at bedtime. Reminded nurse about pharyngeal tolerate. Not much urine output. IV fluids increased to 130 mL an hour. Hypoglycemic. DC Lantus. September 16: Patient does complain of feeling depressed. Not eating. Patient was reevaluated by psychiatry. [place] to be adjustment disorder. Patient does not have any pain in the lower extremity except on movement. cutback Requip. .25 mg daily at bedtime. It is cleared through the renal route. Getting a neurological evaluation. The unlikely will check patient's ammonia level. Also spoke to the about possible feeding tube. Given poor oral intake. Patient only eating a few bites here and there Active Medications Acetaminophen (Acetaminophen Tab 325 Mg Tab) 650 mg PO Q6HR PRN PRN Reason: Mild Pain or Fever > 100.5 Last Admin: 09/12/21 20:09 Dose: 650 mg Documented by: Albuterol/Ipratropium (Ipratropium-Albuterol 3 Ml Neb) 3 ml INHALATION RT-QID [facility] Last Admin: 09/16/21 15:23 Dose: 3 ml Documented by: Ascorbic Acid (Ascorbic Acid 500 Mg Tab) 1,000 mg PO DAILY@0800 [facility] Last Admin: 09/16/21 08:37 Dose: 1,000 mg Documented by: Budesonide/Formoterol Fumarate (Symbicort 80-4.5 Mcg Inhaler) 2 puff INHALATION RT-BID [facility] Last Admin: 09/16/21 09:05 Dose: 2 puff Documented by: Doxycycline Monohydrate (Doxycycline 50 Mg Cap) 50 mg PO BID [facility]; Protocol Last Admin: 09/16/21 08:37 Dose: 50 mg Documented by: Folic Acid (Folic Acid 1 Mg Tab) 1 mg PO DAILY [facility] Last Admin: 09/16/21 08:37 Dose: 1 mg Documented by: Gabapentin (Gabapentin 100 Mg Cap) 100 mg PO HS [facility] Last Admin: 09/15/21 20:27 Dose: 100 mg Documented by: Glucose (Dextrose 4 Gm Chewable) 4 gm PO Q10M PRN PRN Reason: CBG < 70 mg/dL Piperacillin Sod/Tazobactam (Sod 3.375 gm/ Sodium Chloride) 100 mls @ 25 mls/hr IVPB Q12HR [facility]; Protocol Last Admin: 09/16/21 08:37 Dose: 25 mls/hr Documented by: Sodium Chloride (Saline 0.9%) 1,000 mls @ 50 mls/hr IV .Q20H [facility] Last Admin: 09/16/21 11:13 Dose: 50 mls/hr Documented by: Metoprolol Tartrate (Metoprolol Tartrate 12.5 Mg Tab) 12.5 mg PO TID [facility] Last Admin: 09/16/21 14:43 Dose: 12.5 mg Documented by: Multivitamins (Multivitamins, Thera 1 Each Tab) 1 each PO DAILY [facility] Last Admin: 09/16/21 08:38 Dose: 1 each Documented by: Naloxone HCl (Naloxone 0.4 Mg/Ml 1 Ml Vial) 0.2 mg IV Q2M PRN PRN Reason: Opioid Reversal Ondansetron HCl (Ondansetron 4 Mg Tab) 4 mg PO Q6HR PRN PRN Reason: Nausea And Vomiting Last Admin: 09/12/21 17:12 Dose: 4 mg Documented by: Pantoprazole Sodium (Pantoprazole 40 Mg Tablet) 40 mg PO AC-BRKFST [facility] Last Admin: 09/16/21 08:37 Dose: 40 mg Documented by: Ropinirole HCl (Ropinirole Hcl 0.25 Mg Tab) 0.25 mg PO HS [facility] Sodium Bicarbonate (Sodium Bicarbonate Tab 650 Mg Tab) 650 mg PO TID [facility] Tamsulosin HCl (Tamsulosin 0.4 Mg Cap.Er.24h) 0.4 mg PO DAILY@1400 [facility] Last Admin: 09/16/21 14:43 Dose: 0.4 mg Documented by: Past medical history to include: COPD, asthma, diabetes, hypertension, hyperlipidemia, obstructive sleep apnea uses CPAP, herniated disc uses injections, pneumonia June 2021 patient intubated Social history: Alcohol occasionally. Occasional cigar. Marijuana occasionally. . At rehab Family history: Skin cancer, macular degeneration Physical examination: VITAL SIGNS: 98.7, 110, 18, 106/58, 96% on 2 L GENERAL: laying in bed, lethargic EYES: Pupils equal. Conjunctiva normal. HEENT: External appearance of nose and ears normal, oral cavity grossly normal. NECK: JVD not raised; masses not palpable. HEART: First and second heart sounds are normal; no edema. LUNGS: Respiratory rate normal; clear to auscultation. ABDOMEN: Soft, nontender, liver spleen not palpable, no masses palpable. PSYCH: Answering questions, sleepy MUSCULOSKELETAL:No Clubbing/cyanosis;muscles-grossly intact NEUROLOGICAL: Cranial nerves grossly intact; no facial asymmetry, decreased power lower extremity. INVESTIGATIONS, reviewed in the clinical context: September 16: White count 8.9 hemoglobin 11.7 potassium 4.2 BUN 35 creatinine 4.09 September 14: Sodium 135 BUN 39 creatinine 3.31. Blood glucose 64 September 13: White count 7.6 hemoglobin 10.3 platelets 1944.9 BUN 47 creatinine 3.2 to September 12: White count 12.1-year-old and 30.7 sodium 134 potassium 5.9 BUN 38 creatinine 2.76 September 11: Sodium 131 potassium 7.2 BUN 48 creatinine 3.73 White count 6.8 hemoglobin 13.8 platelets 244 sodium 136 potassium 4.9 BUN 40 creatinine 3.41. EKG tracing personally reviewed by me-sinus rhythm, right bundle branch block. Some T waves abnormalities Chest x-ray film personally reviewed by me-possible chronic changes Blood Glucose 36 Assessment and plan: -Severe hypotension, from acute kidney injury from decreased oral intake: Some improvement IV fluids -Acute metabolic encephalopathy not improving Neurology consult -Chronic congestive heart failure. From diastolic dysfunction EF 55-60%: Hold diuretics for now -Acute kidney injury prerenal versus ATN: On renal replacement therapy on hemodialysis -Acute metabolic acidosis from worsening renal failure: Better bicarbonate drip-discontinued. Oral bicarbonate -Acute severe hyperkalemia from metabolic acidosis: Better -Sinus tachycardia likely from sepsis -Anorexia multifactorial: Not improving Did not respond to Marinol. -Gallstones. Possible cholecystitis. IV Zosyn. For cholecystectomy this Monday -Sepsis. Source unclear. Blood cultures negative to no Empirically - Zosyn. 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 -Obesity BMI 34 -Adjustment disorder Seen by psychiatry. No medications. -Essential hypertension, currently blood pressure running low Hold off antihypertensive -Restless leg syndrome Requip .25 mg daily at bedtime -Diabetes mellitus type 2 on oral hypoglycemic, uncontrolled with hypoglycemia: Slow to respond Hold of oral hypoglycemic. Follow Accu-Cheks. -Hyperlipidemia Hold off Zocor because of muscle weakness -BPH Flomax 0.4 mg daily -COPD Advair 250/50 one puff twice a day. DuoNeb 4 times a day -Chronic medical debility from recent protracted hospitalization PTOT IV Zosyn. Check ammonia level. Neurology consultation. Discussed with the about possible feeding tube. If no improvement. Cut back Requip to 0.25 mg daily at bedtime
[2021-09-16 16:46] LABS: Glucose,Whole Blood 127 mg/dL (75-99)
[2021-09-16] MEDS: SODIUM BICARBONATE TAB 650 MG TAB PO SCH ×2 (16:55→21:14)
[2021-09-16 21:01] LABS: Glucose,Whole Blood 128 mg/dL (75-99)
[2021-09-16] MEDS: GABAPENTIN 100 MG CAP PO SCH (21:14)
--- NOTE | 2021-09-16 22:29 | CT ---
EXAMINATION TYPE: CT brain wo con DATE OF EXAM: 09/16/2021 COMPARISON: 07/07/2021 HISTORY: AMS CT DLP: 1192.4 mGycm Automated exposure control for dose reduction was used. Images of the brain obtained without contrast. Ventricles have normal size. There is no mass effect or midline shift. There is no sign of intracrani al hemorrhage. Calvarium is intact. Skull base is intact. There is some mucosal thickening in the mas toid sinuses. IMPRESSION: Negative CT scan of the brain. There is improvement in the ethmoid and sphenoid sinusitis compared to old exam. There is bilateral chronic mastoiditis similar to old exam. There is significant clearing of the opacification of the middle ear cavity compared to last exam.
--- NOTE | 2021-09-16 23:08 | P.CNNES ---
History of Present Illness Consult date: 09/16/21 Requesting physician: Ryan Nelson Reason for Consult: Lethargy History of Present Illness: Patient is a 61-year-old male known to neurology service from previous admission to the hospital, when he had a prolonged hospitalization from 06/25/2021 to 07/16/2021 with bilateral pneumonia, possible sepsis, acute congestive heart failure from diastolic dysfunction, critical care myopathy/neuropathy, morbid obesity, hypertension, diabetes, COPD, was transferred to subacute rehab. 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 He was feeling like a drunk, visual disturbance, lack of appetite. Patient's vitals at the scene was blood pressure 84/60, pulse rate over and 10, blood sugar 78 and temperature 97.6. Patient was admitted to the hospital on 09/09/2021 with acute kidney injury from hypotension, CHF, COPD. Patient also has history of hypertension and diabetes. As per patient's while he was in the rehab facility, he was getting fairly strong, was able to turn himself over by pulling on the side rails. He was not able to get up on his feet, but was able to scoot back himself up in the bed using his arms. In the residential he was being lifted up by verónica lift. Patient was doing well while initially in the hospital. He was started on hemodialysis on 09/11/2021. His mentation became altered since 09/13/2021. Since then he has been having some mental status change. Sometimes he knows his family, sometimes does not. He is mostly sleepy and groggy. He is sleeping a lot. Sometimes he is so somnolent, that does not usually respond to the sternal rub. Patient since has bigger left arm and leg as compared to the right side. Patient's most recent blood test shows WBC 8.9 hemoglobin 11.7, platelet 327. Electrolytes are normal, BUN 35, creatinine 4.09. Hepatic panel is normal, C. difficile negative. Patient's B12 was 725 on 08/10/2021, vitamin D 45, folate 7.9 TSH 0.789. Patient's creatine kinase is low 40. Patient's chest x-ray from yesterday showed no gross signs of pulmonary edema. Increased cardiac transfers dimetria, please correlate with echocardiographic results. 2-D echo showed normal left- ventricular size. Moderate concentric LVH. EF is between 55-60%. Trace TR. Right ventricle is severely enlarged. Ultrasound of abdomen showed cholelithiasis and possible associated tumefactive sludge, posterior adenomyomatosis. Patient has never smoked, does not drink alcohol. Review of Systems Patient denies headache. 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 History of Any Multi-Drug Resistant Organisms: None Reported Past Surgical History: Hernia Repair Additional Past Surgical History / Comment(s): hydrocelectomy, vasectomy, colonoscopy/polypectomy-benign. umbilical hernia repair, injections for herniated disc. Past Anesthesia/Blood Transfusion Reactions: No Reported Reaction Additional Past Anesthesia/Blood Transfusion Reaction / Comment(s): clausterphobia. pt stated has never had a blood transfusion Past Psychological History: No Psychological Hx Reported Smoking Status: Never smoker Past Alcohol Use History: Occasional Additional Past Alcohol Use History / Comment(s): approx 2008 briefly smoked the occ cigar. pt has a rare drink Past Drug Use History: Marijuana Additional Drug Use History / Comment(s): approx every 3 months - Past Family History Mother Family Medical History: Cancer, Eye Disorder Additional Family Medical History / Comment(s): skin cancer, macular degeneration Father Family Medical History: Coronary Artery Disease (CAD), Dementia Additional Family Medical History / Comment(s): cabg, stents, uti/sepsis Medications and Allergies Home Medications Medication Instructions Recorded Confirmed Type Aspirin EC [Ecotrin Low Dose] 81 mg PO DAILY 08/23/18 09/09/21 History Tamsulosin [Flomax] 0.4 mg PO DAILY@1400 08/23/18 09/09/21 History glipiZIDE [Glucotrol] 5 mg PO DAILY 08/23/18 09/09/21 History metFORMIN HCL [Glucophage] 1,000 mg PO BID 08/23/18 09/09/21 History rOPINIRole HCL [Requip] 1 mg PO HS 08/23/18 09/09/21 History Famotidine [Pepcid] 20 mg PO BID tab 07/16/21 09/09/21 Rx Folic Acid 1 mg PO DAILY tab 07/16/21 09/09/21 Rx Furosemide [Lasix] 40 mg PO DAILY tab 07/16/21 09/09/21 Rx Ipratropium-Albuterol Nebulize 3 ml INHALATION RT-QID ml 07/16/21 09/09/21 Rx [Duoneb 0.5 mg-3 mg/3 ml Soln] Metoprolol Tartrate [Lopressor] 50 mg PO BID tab 07/16/21 09/09/21 Rx lisinopriL [Zestril] 10 mg PO DAILY #0 tab 07/16/21 09/09/21 Rx Apixaban [Eliquis] 5 mg PO BID 09/09/21 09/09/21 History Ascorbic Acid [Vitamin C] 1,000 mg PO DAILY@0800 09/09/21 09/09/21 History Cholecalciferol [Vitamin D3 (25 50 mcg PO DAILY 09/09/21 09/09/21 History Mcg = 1000 Iu)] Fluticasone/Vilanterol [Breo 1 puff INHALATION RT-DAILY 09/09/21 09/09/21 History Ellipta 100-25 Mcg Inhaler] Gabapentin [Neurontin] 300 mg PO BID 09/09/21 09/09/21 History Multivitamins, Thera [Multivitamin 1 tab PO DAILY 09/09/21 09/09/21 History (formulary)] Potassium Chloride ER [K-Dur 20] 20 meq PO DAILY 09/09/21 09/09/21 History Zinc Sulfate [Orazinc] 220 mg PO DAILY 09/09/21 09/09/21 History hydrALAZINE HCL 25 mg PO BID@0500,1600 09/09/21 09/09/21 History hydrALAZINE HCL 50 mg PO BID@0500,1600 09/09/21 09/09/21 History metroNIDAZOLE [Flagyl] 500 mg PO DAILY 09/09/21 09/09/21 History Allergies Allergy/AdvReac Type Severity Reaction Status Date / Time No Known Allergies Allergy Verified 09/09/21 18:45 Physical Examination - Vital Signs Vital Signs: Vital Signs Temp Pulse Pulse Resp BP Pulse Ox 09/16/21 20:14 99.0 F 120 H 18 108/62 96 09/16/21 19:33 90 09/16/21 19:22 88 09/16/21 15:41 96 09/16/21 15:23 100 09/16/21 14:37 18 09/16/21 14:11 98.7 F 114 H 106/58 96 09/16/21 12:09 91 09/16/21 12:01 88 09/16/21 09:09 89 09/16/21 09:02 90 09/16/21 08:48 18 09/16/21 08:00 18 09/16/21 07:07 98.1 F 118 H 136/79 98 09/16/21 02:00 99.2 F 114 H 20 115/76 96 Intake and Output 09/16/21 09/16/21 09/16/21 06:59 14:59 22:59 Intake Total 700 600 Balance 700 600 Intake: IV 600 Sodium Chloride 0.9% 1, 600 000 ml @ 50 mls/hr IV . Q20H ERINN Rx#:[id number] Intake, IV Titration 600 Amount Sodium Chloride 0.9% 1, 600 000 ml @ 50 mls/hr IV . Q20H ERINN Rx#:[id number] Oral 100 Other: Voiding Method External Catheter # Voids 0 # Bowel Movements 1 Patient is a middle aged male, who appears in mild respiratory distress. Patient is encephalopathic, slightly groggy, often goes to sleep, but does wake up on calling his name. Patient did not speak much. However what ever he spoke , was clear with no obvious aphasia or dysarthria. Attention, concentration and fund of knowledge is very limited. Patient knows his name, his age 61 years and that he is right-handed. He thinks Sammy Godoy is the president. On cranial examination, pupils are equal, round and reacting to light, visual de la torre appears full on confrontation. His extraocular muscles are intact with no nystagmus. Face is symmetric, tongue protrudes to the midline. Palatal elevation and sensation normal could not be assessed, hearing is decreased and shoulder shrug overall decreased. On muscle strength testing, biceps 4, triceps 4, grain merchandiser 4+, deltoid. Lower extremities appears weak bilaterally. Patient did not cooperate with the testing. Deep tendon reflexes are very hypoactive, trace at the biceps, 0 brachioradialis, trace at the knees, 0 ankles and plantars are probably downgoing. Sensory to touch couldn't be assessed reliably. Cerebellar function not able to check because of mental status. Tone of muscles decreased. Bulk of muscles appear normal. Gait patient nonambulatory. On general examination, there is no carotid bruit or murmur, S1-S2 audible. Chest is clear. Patient has at least moderate peripheral edema. Peripheral pulses not able to be felt. Results - Laboratory Findings CBC and BMP: 09/18/21 07:56 09/18/21 05:51 Abnormal Lab Findings: Abnormal Labs 09/09/21 09/09/21 09/09/21 16:28 16:28 16:28 WBC RBC Hgb Hct MCHC RDW 16.3 H Neutrophils # Lymphocytes # Lymphocytes # (Manual) 0.88 L PT 12.2 H Sodium 136 L Potassium Carbon Dioxide 18 L BUN 40 H Creatinine 3.41 H Glucose 36 L* POC Glucose (mg/dL) Calcium Magnesium 1.3 L Alkaline Phosphatase Creatine Kinase Total Protein 6.1 L Albumin 3.3 L Amorphous Sediment Urine Bacteria 09/09/21 09/09/21 09/09/21 17:35 19:39 20:06 WBC RBC Hgb Hct MCHC RDW Neutrophils # Lymphocytes # Lymphocytes # (Manual) PT Sodium Potassium Carbon Dioxide BUN Creatinine Glucose POC Glucose (mg/dL) 52 L 55 L 126 H Calcium Magnesium Alkaline Phosphatase Creatine Kinase Total Protein Albumin Amorphous Sediment Urine Bacteria 09/10/21 09/10/21 09/10/21 06:21 07:13 07:40 WBC RBC Hgb Hct MCHC RDW Neutrophils # Lymphocytes # Lymphocytes # (Manual) PT Sodium Potassium Carbon Dioxide BUN Creatinine Glucose POC Glucose (mg/dL) 36 L 37 L Calcium Magnesium Alkaline Phosphatase Creatine Kinase Total Protein Albumin Amorphous Sediment Moderate H Urine Bacteria Few H 09/10/21 09/10/21 09/10/21 08:03 08:28 08:55 WBC RBC Hgb Hct MCHC RDW Neutrophils # Lymphocytes # Lymphocytes # (Manual) PT Sodium Potassium Carbon Dioxide BUN Creatinine Glucose POC Glucose (mg/dL) 52 L 62 L 68 L Calcium Magnesium Alkaline Phosphatase Creatine Kinase Total Protein Albumin Amorphous Sediment Urine Bacteria 09/10/21 09/10/21 09/10/21 10:08 17:21 17:43 WBC RBC Hgb Hct MCHC RDW Neutrophils # Lymphocytes # Lymphocytes # (Manual) PT Sodium Potassium Carbon Dioxide BUN Creatinine Glucose POC Glucose (mg/dL) 74 L 67 L 71 L Calcium Magnesium Alkaline Phosphatase Creatine Kinase Total Protein Albumin Amorphous Sediment Urine Bacteria 09/10/21 09/11/21 09/11/21 19:30 01:55 06:50 WBC RBC Hgb Hct MCH RDW Neutrophils # Lymphocytes # Lymphocytes # (Manual) PT Sodium Potassium 7.0 H* Carbon Dioxide BUN Creatinine Glucose POC Glucose (mg/dL) 108 H 172 H Calcium Magnesium 1.2 L Alkaline Phosphatase Creatine Kinase Total Protein Albumin Amorphous Sediment Urine Bacteria 09/11/21 09/11/21 09/11/21 07:24 09:19 11:19 WBC RBC Hgb Hct MCH RDW Neutrophils # Lymphocytes # Lymphocytes # (Manual) PT Sodium 131 L Potassium 7.2 H* Carbon Dioxide 16 L BUN 48 H Creatinine 3.73 H Glucose 219 H POC Glucose (mg/dL) 199 H 152 H Calcium 8.1 L Magnesium Alkaline Phosphatase Creatine Kinase Total Protein Albumin Amorphous Sediment Urine Bacteria 09/11/21 09/11/21 09/11/21 14:50 16:59 17:33 WBC RBC Hgb Hct MCH RDW Neutrophils # Lymphocytes # Lymphocytes # (Manual) PT Sodium Potassium 7.3 H* Carbon Dioxide BUN Creatinine Glucose POC Glucose (mg/dL) 152 H 208 H Calcium Magnesium Alkaline Phosphatase Creatine Kinase 29 L Total Protein Albumin Amorphous Sediment Urine Bacteria 09/11/21 09/11/21 09/11/21 20:23 20:28 21:38 WBC 12.3 H RBC Hgb Hct MCH RDW 16.3 H Neutrophils # 11.0 H Lymphocytes # 0.4 L Lymphocytes # (Manual) PT Sodium 135 L Potassium 6.7 H* Carbon Dioxide 17 L BUN 50 H Creatinine 3.57 H Glucose 153 H POC Glucose (mg/dL) 151 H Calcium Magnesium Alkaline Phosphatase Creatine Kinase Total Protein Albumin Amorphous Sediment Urine Bacteria 09/12/21 09/12/21 09/12/21 01:47 07:12 07:27 WBC RBC Hgb Hct MCH RDW Neutrophils # Lymphocytes # Lymphocytes # (Manual) PT Sodium 134 L Potassium 5.9 H Carbon Dioxide BUN 38 H Creatinine 2.76 H Glucose 160 H POC Glucose (mg/dL) 151 H 157 H Calcium 8.1 L Magnesium Alkaline Phosphatase Creatine Kinase 40 L Total Protein Albumin Amorphous Sediment Urine Bacteria 09/12/21 09/12/21 09/12/21 07:27 11:42 15:04 WBC 12.1 H RBC Hgb Hct MCHC 30.7 L RDW 16.3 H Neutrophils # 10.6 H Lymphocytes # 0.7 L Lymphocytes # (Manual) PT Sodium Potassium 5.9 H Carbon Dioxide BUN Creatinine Glucose POC Glucose (mg/dL) 145 H Calcium Magnesium Alkaline Phosphatase Creatine Kinase Total Protein Albumin Amorphous Sediment Urine Bacteria 09/12/21 09/12/21 09/13/21 16:40 19:54 06:35 WBC RBC 3.94 L Hgb 11.3 L Hct 35.5 L MCHC RDW 16.6 H Neutrophils # Lymphocytes # 0.7 L Lymphocytes # (Manual) PT Sodium Potassium Carbon Dioxide BUN Creatinine Glucose POC Glucose (mg/dL) 144 H 162 H Calcium Magnesium Alkaline Phosphatase Creatine Kinase Total Protein Albumin Amorphous Sediment Urine Bacteria 09/13/21 09/13/21 09/13/21 06:35 16:35 20:41 WBC RBC Hgb Hct MCHC RDW Neutrophils # Lymphocytes # Lymphocytes # (Manual) PT Sodium 132 L Potassium Carbon Dioxide BUN 47 H Creatinine 3.22 H Glucose POC Glucose (mg/dL) 136 H 117 H Calcium 6.8 L Magnesium Alkaline Phosphatase Creatine Kinase Total Protein Albumin Amorphous Sediment Urine Bacteria 09/14/21 09/14/21 09/14/21 10:36 11:27 16:37 WBC RBC Hgb Hct MCHC RDW Neutrophils # Lymphocytes # Lymphocytes # (Manual) PT Sodium 135 L Potassium Carbon Dioxide BUN 39 H Creatinine 3.31 H Glucose 64 L POC Glucose (mg/dL) 73 L 64 L Calcium 7.4 L Magnesium Alkaline Phosphatase Creatine Kinase Total Protein Albumin Amorphous Sediment Urine Bacteria 09/14/21 09/14/21 09/15/21 16:54 17:27 11:14 WBC RBC Hgb Hct MCHC RDW Neutrophils # Lymphocytes # Lymphocytes # (Manual) PT Sodium Potassium Carbon Dioxide BUN Creatinine Glucose POC Glucose (mg/dL) 67 L 67 L 117 H Calcium Magnesium Alkaline Phosphatase Creatine Kinase Total Protein Albumin Amorphous Sediment Urine Bacteria 03/10/22 03/10/22 03/10/22 06:36 08:47 08:47 WBC RBC 4.18 L Hgb 11.7 L Hct MCHC 29.7 L RDW 16.7 H Neutrophils # Lymphocytes # 0.6 L Lymphocytes # (Manual) PT Sodium Potassium Carbon Dioxide 15 L BUN 35 H Creatinine 4.09 H Glucose POC Glucose (mg/dL) 101 H Calcium 8.1 L Magnesium Alkaline Phosphatase 262 H Creatine Kinase Total Protein 5.3 L Albumin 2.5 L Amorphous Sediment Urine Bacteria 09/16/21 09/16/21 09/16/21 11:57 16:44 20:58 WBC RBC Hgb Hct MCHC RDW Neutrophils # Lymphocytes # Lymphocytes # (Manual) PT Sodium Potassium Carbon Dioxide BUN Creatinine Glucose POC Glucose (mg/dL) 127 H 127 H 128 H Calcium Magnesium Alkaline Phosphatase Creatine Kinase Total Protein Albumin Amorphous Sediment Urine Bacteria Assessment and Plan Assessment: * Altered mental status, most likely due to toxic metabolic encephalopathy. * Acute kidney injury, started on dialysis on 09/11/2021 * Recent history of hypotension leading to acute kidney injury * Generalized weakness most likely related to critical illness neuropathy/myopathy. * Anemia * Morbid obesity, BMI 41.8 * History of respiratory failure on mechanical ventilator. * Diabetes type 2 * Hyperlipidemia * Hypertension * COPD Plan: * CT head to rule out any central cause. * Treatment of medical conditions as per IM and other specialties * We will check thiamine, B6. * It appears patient's renal function is deteriorating with creatinine going up, may be the cause of worsening mentation. Hemodialysis hopefully will help. * Avoid any sedatives, hypnotics or narcotics. * Patient on SCDs for DVT prophylaxis. * Neurology will follow. Thank you for the consult. Time with Patient: Greater than 30
[2021-09-17 06:49] LABS: Glucose,Whole Blood 98 mg/dL (75-99)
[2021-09-17] MEDS: DOXYCYCLINE 50 MG CAP PO SCH (07:24)
[2021-09-17] MEDS: PANTOPRAZOLE 40 MG TABLET PO SCH (07:24)
[2021-09-17] MEDS: ASCORBIC ACID 500 MG TAB PO SCH (07:24)
[2021-09-17] MEDS: FOLIC ACID 1 MG TAB PO SCH (07:24)
[2021-09-17] MEDS: SODIUM BICARBONATE TAB 650 MG TAB PO SCH ×3 (07:25→19:52)
[2021-09-17] MEDS: MULTIVITAMINS, THERA 1 EACH TAB PO SCH (07:25)
[2021-09-17] MEDS: METOPROLOL TARTRATE 12.5 MG TAB PO SCH ×3 (07:55→19:52)
[2021-09-17] MEDS ORDERED: IV FLUID CONTINUATION 150 ML IV ONE (08:22)
[2021-09-17 08:37] LABS: Glucose,Whole Blood 97 mg/dL (75-99)
[2021-09-17] MEDS ORDERED: DEXAMETHASONE SOD PHOSPHATE 4 MG/ML 1 ML VIAL IVP ONE (08:43)
[2021-09-17] MEDS ORDERED: METOPROLOL TARTRATE 50 MG TAB PO ONE ×2 (08:44→09:25)
[2021-09-17] MEDS ORDERED: ONDANSETRON 4 MG/2 ML VIAL IVP ONE (08:44)
[2021-09-17] MEDS ORDERED: ONDANSETRON 4 MG/2 ML VIAL ONE (08:45)
[2021-09-17] MEDS ORDERED: HEPARIN SODIUM,PORCINE/PF 5,000 UNIT/0.5 ML SYRINGE SQ ONE (08:45)
[2021-09-17] MEDS ORDERED: METOPROLOL TARTRATE 12.5 MG TAB PO STA (08:47)
[2021-09-17 09:07] LABS: Anisocytosis Slight; HCT 34.7 % (39.0-53.0); HGB 10.9 gm/dL (13.0-17.5); Hypochromasia Moderate; MCH 28.4 pg (25.0-35.0); MCHC 31.3 g/dL (31.0-37.0); MCV 90.6 fL (80.0-100.0); Mean Platelet Volume 7.4; Platelet Count 311 k/uL (150-450); RBC 3.83 m/uL (4.30-5.90); RDW 16.9 % (11.5-15.5); WBC 8.8 k/uL (3.8-10.6)
[2021-09-17] MEDS: SYMBICORT 80-4.5 MCG INHALER INHALATION SCH ×2 (09:17→20:30)
[2021-09-17] MEDS: IPRATROPIUM-ALBUTEROL 3 ML NEB INHALATION SCH ×4 (09:18→20:30)
[2021-09-17 09:54] LABS: African American GFR (CKD) 13 (>60 ml/min/1.73 sqM); Anion Gap 9 mmol/L; Blood Urea Nitrogen 44 mg/dL (9-20); Calcium 8.1 mg/dL (8.4-10.2); Carbon Dioxide 20 mmol/L (22-30); Chloride 107 mmol/L (98-107); Glucose 93 mg/dL (74-99); Non-African American GFR(CKD) 11 (>60 ml/min/1.73 sqM); Potassium 3.8 mmol/L (3.5-5.1); Sodium 136 mmol/L (137-145)
[2021-09-17] MEDS ORDERED: HEPARIN SODIUM,PORCINE 5,000 UNIT/ML 1 ML VIAL SQ ONE (10:37)
[2021-09-17] MEDS ORDERED: fentaNYL (PF) 50 MCG/ML 2 ML AMP ONE (10:39)
[2021-09-17] MEDS: PIPERACILLIN-TAZOBACTAM 3.375 GM in SODIUM CHLORIDE 0.9% 100 ML IVPB SCH ×2 (10:39→21:06)
[2021-09-17] MEDS ORDERED: SODIUM CHLORIDE 0.9% 500 ML 500 ML IV ONE (10:39)
[2021-09-17] MEDS ORDERED: PROPOFOL 10 MG/ML 20 ML VIAL IV ONE (10:39)
[2021-09-17] MEDS ORDERED: NEOSTIGMINE 1 MG/ML 10 ML VIAL ONE (10:39)
[2021-09-17] MEDS ORDERED: MIDAZOLAM 2 MG/2 ML VIAL ONE (10:39)
[2021-09-17] MEDS ORDERED: GLYCOPYRROLATE 0.2 MG/ML 2 ML VIAL ONE (10:39)
[2021-09-17] MEDS ORDERED: PHENYLEPHRINE-0.9% NACL SYG 1,000 MCG/10 ML SYRINGE ONE (10:39)
[2021-09-17] MEDS ORDERED: FLUMAZENIL 0.1 MG/ML 5 ML VIAL IVP ONE (10:39)
[2021-09-17] MEDS ORDERED: ROCURONIUM 10 MG/ML (5 ML VIAL) IV ONE (10:39)
[2021-09-17] MEDS ORDERED: NALOXONE 0.4 MG/ML 1 ML VIAL ONE (10:39)
[2021-09-17] MEDS ORDERED: BUPIVACAIN-EPI 0.25%-1:200,000 30 ML VIAL SQ ONE (11:08)
[2021-09-17] MEDS: SODIUM CHLORIDE 0.9% 1,000 ML IV SCH ×2 (11:14→14:34)
[2021-09-17] MEDS ORDERED: SODIUM CHLORIDE 0.9% 250 ML IV ONE (12:18)
[2021-09-17] MEDS ORDERED: ONDANSETRON 4 MG TAB PO PRN (12:55)
--- NOTE | 2021-09-17 12:55 | P.OP ---
Date of Procedure: 09/17/21 Preoperative Diagnosis: Acute cholecystitis Postoperative Diagnosis: Acute gangrenous cholecystitis with transmural necrosis of gallbladder wall Procedure(s) Performed: Diagnostic laparoscopy Open cholecystectomy Anesthesia: MAN Surgeon: Clint Jackson Estimated Blood Loss (ml): 200 Pathology: other (Gallbladder) Condition: stable Disposition: PACU Description of Procedure: The patient was placed on the operating table. The patient received a general endotracheal tube anesthesia. The patients abdomen was prepped and draped in the usual sterile fashion. Through an infraumbilical stab incision, the fascia of the anterior abdominal wall was grasped with a pair of Kochers and then the Veress needle was placed in the peritoneal cavity. Position of the Veress needle was confirmed with positive drop test. The abdomen was then insufflated. After adequate insufflation, the 10 mm trocar was placed in the peritoneal cavity. Following this the laparoscope was placed in the peritoneal cavity. The patient was placed in the head-up, right side up position and then a 5 mm trocar was placed in the right lateral and right subcostal position under direct visualization. A 8 mm trocar was placed in the epigastric position. The gallbladder was then visualized. The gallbladder had transmural necrosis. The entire gallbladder was black and. At this point it was decided to perform an open cholecystectomy. The trochars withdrawn. A right subcostal skin incision was made. Using electrocautery the subcutaneous tissues and then abdominal wall was divided. The Bookwalter tract with wound. The abdominal wall was retracted. The gallbla dder was taken down in a dome down technique. The gallbladder was aspirated prior to this. Using left cautery the gallbladder was dissected off the liver wall. The cystic duct area was quite inflamed. A subtotal cholecystectomy was performed by dividing the gallbladder neck. It was clamped with a Arabella clamp. And then cut with a pair of Jimenez scissors. The cystic duct stump and gallbladder neck were then ligated with 0 silk ties. The liver bed was irrigated. There was some bleeding from the liver bed. This was coagulated with left cautery. Tisseel and Surgicel were also placed on the liver bed. Due to the necrosis of the gallbladder and a GRETCHEN drain is placed in the gallbladder fossa and brought out through the laparoscopic skin incision. The abdomen was areas no bleeding seen. The fascia was then closed in looped #1 PDS suture. Skin was closed minh. Patient thought procedure well was sent to recovery room in stable condition.
[2021-09-17 13:36] LABS: Glucose,Whole Blood 123 mg/dL (75-99)
[2021-09-17 14:14] LABS: Glucose,Whole Blood 131 mg/dL (75-99)
[2021-09-17] MEDS: TAMSULOSIN 0.4 MG CAP.ER.24H PO SCH (14:28)
--- NOTE | 2021-09-17 14:37 | P.PN ---
Subjective Progress Note Date: 09/17/21 Principal diagnosis: Shortness of breath 61-year-old male patient, who was transferred to the hospital on 09/09/2021 from the [facility] where he [facility]. The patient was sent to medical [place] for further rehabilitation as the patient had a prolonged hospitalization back in June 2021 that extended to July 2021. At that time, the patient had a very complicated course as the patient was intubated and placed on a mechanical ventilator on 06/25/2021. He presented to us hypothermic, had pneumonia and sepsis and complete opacification of the left lung. During the course of his illness, he Is negative for microbial growth and he also tested negative for COVID 19. He underwent bronchoscopy 2 on 06/27/2021 and 07/03/2021. His left lung gradually reexpanded. Post extubation, he was given BiPAP. He is known to have asthma, diabetes, hypertension, hyperlipidemia and obstructive sleep apnea and BPH. He was given aggressive chest PT, percussion, deep breathing and pulmonary toileting and based on his generalized weakness, he was sent for rehabilitation. During this current admission, the patient reports that he was not doing well. He does not get to the point where he was ambulatory. Obviously is a non-reliable historian. He states that he was not feeling well. He was feeling weak. He was not eating much. He did not like the food and his oral intake was quite diminished. He came into the ED with hypotension with a blood pressure of 70/50. The patient's potassium level initially was at 4.9 and the patient was in acute kidney injury. Subsequently, the potassium came up to 7.3. Various treatments done to improve the potassium and failed and ultimately, the patient got transferred to the ICU for hyperkalemia. He was given a dialysis catheter and he received a session of hemodialysis yesterday. This morning, his potassium level is down to 5.9. Creatinine is improving. Urine output is in order of 20-25 mL an hour. He has a dialysis catheter in his right groin. He has no signs of any respiratory distress. Chest x-rays unchanged and there is a stable atelectasis in left lung base. The patient remains about O2 and currently he is a 96% pulse ox. Most recent BP is 88/50 from this morning. He was noted to be tachycardic over the past 24 hours. Cardiac rhythm is sinus. White cell count is at low hemoglobin 15.7 and a platelet count of 195. Note. Indication of an underlying infection. The patient's UA was not showing any signs of infection. Blood cultures 2 were sent from admission are negative. He has stage II wounds. No significant cough sputum production. No wheezing. No altered mentation or headache or neck stiffness. In the ICU, give this patient a bolus of 1 L. I started him on IV Zosyn and IV. The ulcers. He is on Levemir insulin 16 units at bedtime along with a sliding scale coverage. On 09/13/2021 patient seen in follow-up in the intensive care unit. He is awake and alert, in no acute distress, he is resting comfortably in bed, denies any dyspnea. Room air pulse ox is 94%, patient is having hemodialysis treatment. He did wear CPAP support last night. Patient remains on empiric antibiotics with doxycycline and Zosyn. Patient continues to have low-grade fevers and a T- max in the last 24 hours was 101.6F at 8:00 in the morning yesterday. No cough, no chest discomfort, no hemoptysis. Hemodynamically stable, he is receiving IV fluids normal saline at a rate of 75 ML per hour. Breathing is nonlabored, comfortable. His chest x-ray on 09/11/2021 showed mild blunting of the left costophrenic angle, clear right lung. Today's labs have been reviewed with blood cell count is 7.6, hemoglobin is 11.3, platelet count is 194, sodium is 132, the rest of electrolytes were within normal limits, BUN is 47, creatinine is 3.22. Patient is not requiring any vasopressor support, echocardiogram has been completed showing moderate concentric LVH, EF of 55-60%, and severe enlargement of the right ventricle. On 09/14/2021 patient seen in follow-up on selective care unit, he is resting in bed, breathing comfortably, lung sounds are essentially clear to auscultation, no rhonchi no wheezing, denies any cough, no phlegm production or chest discomfort. She did wear his CPAP device at night. At the on room air pulse ox is 95%, he was dialyzed yesterday and 900 mL of fluid was removed with hemodialysis. No plans for hemodialysis today according to the patient. Today's labs have been reviewed, sodium is 135, the rest of electrolytes are within normal limits, BUN is 39, creatinine is 3.31. 4 sets of blood cultures have shown no growth thus far since admission. Unclear the source of possible infection, patient remains on antibiotics for empiric antibiotic coverage, as patient for pneumonia is low On 09/16/2021 patient seen in follow-up on medical surgical floor, he is resting in bed, does not appear to be in any acute distress, he is currently it is of oxygen, he is satting 96%, at night he is been wearing his CPAP device from home. Denies any worsening dyspnea, no complaints of chest discomfort, still has some mild generalized edema. Today's labs have been reviewed, white blood cell count is 8.9, hemoglobin is 11.7, sodium is 138, potassium is 4.2, chloride is 107, CO2 is 15, B1 is 35, creatinine is 4.09. Nephrology is following, and had hemodialysis treatment yesterday with removal 1.3 L of fluid. Appetite is fair, no nausea or vomiting, however patient is incontinent of liquid brown stool. Patient has had no fever or chills, his blood cultures have been negative, as of dyspnea or cough, no phlegm production, breathing comfortably, lung sounds are clear. His last chest x-ray was on 09/14/2021 grossly unremarkable lungs. On 09/17/2021 patient seen in follow-up in the recovery room. This morning patient was taken to surgery for cholecystectomy and he was found to have acute gangrenous cholecystitis with transmural necrosis of gallbladder wall. Following the procedure patient is still intubated and sedated in the recovery room, on assist control mode of ventilation with a rate of 12, tidal volume is 450, FiO2 of 100% and PEEP of 5. His peak air pressure is 28, plateau is 21, he is resting comfortably on a gurney in the recovery room, still sedated, Diprivan will be started, 0.9 normal saline at a rate of 75 ML per hour, his postoperative blood gas and chest x-ray are pending. This morning's labs have been reviewed, white blood cell count was 8.8, hemoglobin was 10.9, sodium is 136, potassium 3.8, BUN was 44, creatinine is 5.05, postoperative labs are pending. Patient continues on Zosyn for antibiotic coverage. Surgical incision is clean dry and intact, abdominal binder is in place, NG tube is in place to low intermittent suction. Objective - Vital Signs Vital signs: Vital Signs Temp 97 F L 09/17/21 13:00 Pulse 105 H 09/17/21 13:30 Resp 12 09/17/21 13:30 BP 107/56 09/17/21 13:30 Pulse Ox 99 09/17/21 13:30 Intake & Output 09/16/21 09/17/21 09/17/21 18:59 06:59 18:59 Intake Total 600 750 900 Output Total 200 Balance 600 750 700 Intake: IV 600 900 Sodium Chloride 0.9% 1, 600 000 ml @ 50 mls/hr IV . Q20H [facility] Rx#:[id number] Intake, IV Titration 700 Amount Piperacillin-Tazobactam 3 100 .375 gm In Sodium Chloride 0.9% 100 ml @ 25 mls/hr IVPB Q12HR [facility] Rx #:[id number] Sodium Chloride 0.9% 1, 600 000 ml @ 50 mls/hr IV . Q20H [facility]IN[facility] Rx#:[id number] Oral 50 Output: Estimated Blood Loss 200 Other: Voiding Method External Catheter External Catheter External Catheter # Voids 0 # Bowel Movements 2 - Exam GENERAL EXAM: Sedated and intubated, 61-year-old white male, on assist-control mode of ventilation with a rate of 12, tidal volume is 450, FiO2 100% and PEEP of 5. HEAD: Normocephalic/atraumatic. EYES: Normal reaction of pupils, equal size. Conjunctiva pink, sclera white. NOSE: Clear with pink turbinates. THROAT: No erythema or exudates. NECK: No masses, no JVD, no thyroid enlargement, no adenopathy. CHEST: No chest wall deformity. Symmetrical expansion. LUNGS: Equal air entry with no crackles, wheeze, rhonchi or dullness. CVS: Regular rate and rhythm, normal S1 and S2, no gallops, no murmurs, no rubs ABDOMEN: Soft, nontender. No hepatosplenomegaly, normal bowel sounds, no guarding or rigidity. Abdominal incisions are clean dry and intact, covered with the abdominal binder, GRETCHEN drain is in place with small amount of sanguinous output EXTREMITIES: No clubbing, no edema, no cyanosis, 2+ pulses and upper and lower extremities. Left arm swelling noted, patient has a IV in the left forearm, rule out possibility of an infiltrated IV MUSCULOSKELETAL: Muscle strength and tone normal. SPINE: No scoliosis or deformity SKIN: No rashes CENTRAL NERVOUS SYSTEM: Sedated, intubated No focal deficits, tone is normal in all 4 extremities. - Labs CBC & Chem 7: 09/17/21 08:57 09/17/21 08:57 Labs: Abnormal Lab Results - Last 24 Hours (Table) 09/16/21 09/16/21 09/17/21 Range/Units 16:44 20:58 08:57 RBC 3.83 L (4.30-5.90) m/uL Hgb 10.9 L (13.0-17.5) gm/dL Hct 34.7 L (39.0-53.0) % RDW 16.9 H (11.5-15.5) % Sodium (137-145) mmol/L Carbon Dioxide (22-30) mmol/L BUN (9-20) mg/dL Creatinine (0.66-1.25) mg/dL POC Glucose (mg/dL) 127 H 128 H (75-99) mg/dL Calcium (8.4-10.2) mg/dL 09/17/21 09/17/21 Range/Units 08:57 13:34 RBC (4.30-5.90) m/uL Hgb (13.0-17.5) gm/dL Hct (39.0-53.0) % RDW (11.5-15.5) % Sodium 136 L (137-145) mmol/L Carbon Dioxide 20 L (22-30) mmol/L BUN 44 H (9-20) mg/dL Creatinine 5.05 H (0.66-1.25) mg/dL POC Glucose (mg/dL) 123 H (75-99) mg/dL Calcium 8.1 L (8.4-10.2) mg/dL Microbiology - Last 24 Hours (Table) 09/12/21 10:28 Blood Culture - Preliminary Blood No Growth after 120 hours 09/12/21 10:29 Blood Culture - Preliminary Blood No Growth after 120 hours Assessment and Plan Plan: Assessment: #1. Acute gangrenous cholecystitis with transmural necrosis of the gallbladder wall, status post open cholecystectomy on 09/17/2021 #2. Acute kidney injury related to the above, and was initiated on hemodialysis #3. Non-anion gap metabolic acidosis, improved #4. Acute hyperkalemia, resolved with hemodialysis, current potassium level is 3.8 #5. Hypotension sinus tachycardia related to acute sepsis, currently improved #6. Morbid obesity with BMI 41.8 #7. History of acute hypoxic respiratory failure on the mechanical ventilator back in mid June 2021 with left lung collapse post bronchoscopy 2 #8. Bronchial asthma, chronic, unspecified #9. Diabetes note this type II #10. Hyperlipidemia #11. Hypertension #12. Obstructive sleep apnea on CPAP therapy #13. BPH #14. Diarrhea, negative C. diff Plan: Case discussed with general surgery Patient will be admitted to the intensive care unit We will let the patient rest on the ventilator support overnight Postoperative blood gas, labs including CBC, CMP and chest x-ray are pending Continue maintenance IV fluids at 75 ML per hour Continue close hemodynamic monitoring, patient may need additional fluid boluses We'll recheck electrolytes and renal profile Follow-up labs in the morning including CBC CMP and chest x-ray Use propofol for sedation for RASS of -3 Vent bundle orders GI/DVT prophylaxis Continue vent support overnight I have personally seen and examined the patient, performed the documentation and the assessment and plan as written. Number of minutes spent on the visit: [20] Time with Patient: Greater than 30
--- NOTE | 2021-09-17 15:06 | XR ---
EXAMINATION TYPE: XR chest 1V portable DATE OF EXAM: 09/17/2021 COMPARISON: Chest x-ray 09/14/2021 HISTORY: Intubated TECHNIQUE: Single frontal view of the chest is obtained. FINDINGS: Endotracheal tube is overlying the tracheal air column. Lung volumes are low, there is ove rlying artifact. Bibasilar increased attenuation is noted, there is blunting the costophrenic angles. No evident pneumothorax. Patient is rotated. IMPRESSION: Status post intubation, there may be basilar atelectasis versus pneumonia. Expiratory ro tated exam.
[2021-09-17 15:19] LABS: ABG Base Excess -12.1 mmol/L; ABG HCO3 16 mmol/L (21-25); ABG Oxygen Saturation 99.5 % (94-97); ABG PCO2 42 mmHg (35-45); ABG PO2 228 mmHg (83-108); ABG TCO2 17 mmol/L (19-24); Allen Test Performed? Yes
[2021-09-17 15:20] LABS: ABG PH 7.19 (7.35-7.45)
[2021-09-17] MEDS ORDERED: SODIUM BICARB 8.4% 50 ML SYR (1 MEQ/ML) IV STA (15:29)
--- NOTE | 2021-09-17 16:14 | P.PN ---
Progress Note - Text Progress Note Date: 09/17/21 Chief Complaint: Low blood pressure This is a 61-year-old patient, follows with Dr. Seda Schneider. Chronic stable medical conditions include diabetes, , hyperlipidemia, obstructive sleep apnea uses CPAP, herniated disc / injections,. Patient was in the hospital from 06/26/2021 through July 16 Admitted with pneumonia, severe hypothermia, acute hypoxic respiratory failure, possible sepsis, possible acute congestive heart failure exacerbation. Was intubated. Was discharged on intermittent BiPAP. [place] to have possible viral pneumonitis. Was negative for COVID. Was discharged to rehab. At the rehab patient had a poor appetite. Not really able to walk. Patient was at copy clerk up as found a very low blood pressure. Admitted. Denies any fever and chills. Actually eating better here. Has been having daily bowel movements. Occasional diarrhea. Does feel tired and rundown. Admitted with severe hypotension, acute kidney injury, hypoglycemia. Diuretics were held. IV hydration. PTOT. September 11: Lasted patient abdominal pain. Abdominal x-ray unremarkable. Surgery consulted. Patient's is present. Appetite is actually getting better. Continue IV fluids. Renal function worsening. Start bicarbonate drip. Coughing up some yellow sputum. Add doxycycline for acute bronchitis. Check creatinine kinase. Rule out rhabdomyolysis. September 12: Patient potassium persisted to be high yesterday. In spite of having several medications. Moved to the ICU. Nephrology consulted. Dialysis catheter was placed and patient received hemodialysis late last night. Poor appetite. Tired. Seen by psychiatry. [place] to have adjustment disorder. September 13: ICU: Tired and sleepy. Barely eating. I reviewed medications. Patient on Neurontin in the setting of acute kidney injury this can cause the patient to be lethargic. Cut back on the dose. Dialysis today. About half a liter removed. IV Zosyn. September 14: Patient started on Marinol yesterday. Still appetite is poor. Pharyngeal hygiene not good. Discussed with the nurse to get it clean. Including saltwater gargle. Patient bit more awake after cutting back dose of Neurontin. On IV Zosyn. September 15: Patient not really eating. Neurontin cutback 200 mg daily at bedtime. Reminded nurse about pharyngeal tolerate. Not much urine output. IV fluids increased to 130 mL an hour. Hypoglycemic. DC Lantus. September 16: Patient does complain of feeling depressed. Not eating. Patient was reevaluated by psychiatry. [place] to be adjustment disorder. Patient does not have any pain in the lower extremity except on movement. cutback Requip. .25 mg daily at bedtime. It is cleared through the renal route. Getting a neurological evaluation. The unlikely will check patient's ammonia level. Also spoke to the about possible feeding tube. Given poor oral intake. Patient only eating a few bites here and there September 17: Patient taken to the OR. Dr. Renetta Santillan the patient's found to have a gangrenous gallbladder. GRETCHEN drain. Patient taken to the ICU postprocedure. On the ventilator. IV propofol. Spoke to patient's family including the at the bedside. Active Medications Acetaminophen (Acetaminophen Tab 325 Mg Tab) 650 mg PO Q6HR PRN PRN Reason: Mild Pain or Fever > 100.5 Last Admin: 09/12/21 20:09 Dose: 650 mg Documented by: Albuterol/Ipratropium (Ipratropium-Albuterol 3 Ml Neb) 3 ml INHALATION RT-QID [facility] Last Admin: 09/17/21 15:36 Dose: 3 ml Documented by: Budesonide/Formoterol Fumarate (Symbicort 80-4.5 Mcg Inhaler) 2 puff INHALATION RT-BID [facility] Last Admin: 09/17/21 09:17 Dose: Not Given Documented by: Chlorhexidine Gluconate (Chlorhexidine Gluconate 15 Ml Cup) 15 ml MUCOUS MEM BID [facility] Enoxaparin Sodium (Enoxaparin 40 Mg/0.4 Ml Syringe) 40 mg SQ DAILY [facility] Gabapentin (Gabapentin 100 Mg Cap) 100 mg PO HS [facility] Last Admin: 09/16/21 21:14 Dose: 100 mg Documented by: Glucose (Dextrose 4 Gm Chewable) 4 gm PO Q10M PRN PRN Reason: CBG < 70 mg/dL Hydromorphone HCl (Hydromorphone 1 Mg/Ml 1 Ml Syringe) 1 mg IVP Q3HR PRN PRN Reason: Pain Piperacillin Sod/Tazobactam (Sod 3.375 gm/ Sodium Chloride) 100 mls @ 25 mls/hr IVPB Q12HR [facility]; Protocol Last Admin: 09/17/21 10:39 Dose: 100 mls Documented by: Propofol 1,000 mg/ IV Solution 100 mls @ 3.9 mls/hr IV .Q24H [facility]; Protocol Last Titration: 09/17/21 14:44 Dose: 20 mcg/kg/min, 15.6 mls/hr Documented by: Sodium Chloride (Saline 0.9%) 1,000 mls @ 75 mls/hr IV .[id number] [facility] Last Admin: 09/17/21 14:34 Dose: 75 mls/hr Documented by: Metoprolol Tartrate (Metoprolol Tartrate 12.5 Mg Tab) 12.5 mg PO TID [facility] Last Admin: 09/17/21 07:55 Dose: Not Given Documented by: Naloxone HCl (Naloxone 0.4 Mg/Ml 1 Ml Vial) 0.2 mg IV Q2M PRN PRN Reason: Opioid Reversal Pantoprazole Sodium (Pantoprazole 40 Mg Tablet) 40 mg PO AC-BRKFST [facility] Last Admin: 09/17/21 07:24 Dose: Not Given Documented by: Sodium Bicarbonate (Sodium Bicarbonate Tab 650 Mg Tab) 650 mg PO TID [facility] Last Admin: 09/17/21 07:25 Dose: Not Given Documented by: Tamsulosin HCl (Tamsulosin 0.4 Mg Cap.Er.24h) 0.4 mg PO DAILY@1400 [facility] Last Admin: 09/17/21 14:28 Dose: Not Given Documented by: Past medical history to include: COPD, asthma, diabetes, hypertension, hyperlipidemia, obstructive sleep apnea uses CPAP, herniated disc uses injections, pneumonia June 2021 patient intubated Social history: Alcohol occasionally. Occasional cigar. Marijuana occasionally. . At rehab Family history: Skin cancer, macular degeneration Physical examination: VITAL SIGNS: 7, 110, 12, 108/59, 96% on the ventilator GENERAL: laying in bed, intubated EYES: Pupils equal. Conjunctiva normal. HEENT: External appearance of nose and ears normal, oral cavity endotracheal tube NECK: JVD not raised; masses not palpable. HEART: First and second heart sounds are normal; no edema. LUNGS: Respiratory rate normal; clear to auscultation. ABDOMEN: Soft, GRETCHEN drain, binder liver spleen not palpable, no masses palpable. PSYCH: Unable to assess, sedated MUSCULOSKELETAL:No Clubbing/cyanosis;muscles-grossly intact NEUROLOGICAL: Cranial nerves grossly intact; no facial asymmetry, decreased power lower extremity. INVESTIGATIONS, reviewed in the clinical context: September 17: White count 8.8 hemoglobin 10.9 platelets relevant potassium 3.8 BUN 44 creatinine 5.05 September 16: White count 8.9 hemoglobin 11.7 potassium 4.2 BUN 35 creatinine 4.09 September 14: Sodium 135 BUN 39 creatinine 3.31. Blood glucose 64 September 13: White count 7.6 hemoglobin 10.3 platelets 1944.9 BUN 47 creatinine 3.2 to September 12: White count 12.1-year-old and 30.7 sodium 134 potassium 5.9 BUN 38 c reatinine 2.76 September 11: Sodium 131 potassium 7.2 BUN 48 creatinine 3.73 White count 6.8 hemoglobin 13.8 platelets 244 sodium 136 potassium 4.9 BUN 40 creatinine 3.41. EKG tracing personally reviewed by me-sinus rhythm, right bundle branch block. Some T waves abnormalities Chest x-ray film personally reviewed by me-possible chronic changes Blood Glucose 36 Assessment and plan: -Severe hypotension, from acute kidney injury from decreased oral intake: Slow to respond IV fluids -Acute metabolic encephalopathy not improving Neurology consult -Chronic congestive heart failure. From diastolic dysfunction EF 55-60%: Hold diuretics for now -Acute kidney injury prerenal versus ATN: On renal replacement therapy on hemodialysis -Acute metabolic acidosis from worsening renal failure: Better bicarbonate drip-discontinued. Oral bicarbonate -Acute severe hyperkalemia from metabolic acidosis: Better -Sinus tachycardia likely from sepsis -Anorexia multifactorial: Not improving Did not respond to Marinol. -Gangrenous cholecystitis followed by cholecystectomy. IV Zosyn. Cholecystectomy on September [address] Jackson -Sepsis. Secondary to gangrenous cholecystitis Zosyn. 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 -Obesity BMI 34 -Adjustment disorder Seen by psychiatry. No medications. -Essential hypertension, currently blood pressure running low Hold off antihypertensive -Restless leg syndrome Requip .25 mg daily at bedtime -Diabetes mellitus type 2 on oral hypoglycemic, uncontrolled with hypoglycemia: Slow to respond Hold of oral hypoglycemic. Follow Accu-Cheks. -Hyperlipidemia Hold off Zocor because of muscle weakness -BPH Flomax 0.4 mg daily -COPD Advair 250/50 one puff twice a day. DuoNeb 4 times a day -Chronic medical debility from recent protracted hospitalization PTOT -Full code IV Zosyn. Currently on the ventilator. On propofol. GRETCHEN drain. Follow with multiple consultants. Discussed with the family the bedside.
[2021-09-17 17:07] LABS: Anisocytosis Slight; HCT 33.1 % (39.0-53.0); HGB 9.9 gm/dL (13.0-17.5); Hypochromasia Marked; MCH 28.1 pg (25.0-35.0); MCHC 29.8 g/dL (31.0-37.0); MCV 94.3 fL (80.0-100.0); Mean Platelet Volume 7.5; Platelet Count 373 k/uL (150-450); RBC 3.51 m/uL (4.30-5.90); RDW 16.9 % (11.5-15.5); WBC 8.4 k/uL (3.8-10.6)
[2021-09-17 17:30] LABS: Albumin 2.3 g/dL (3.5-5.0); Calcium 8.2 mg/dL (8.4-10.2); Potassium 4.5 mmol/L (3.5-5.1); Total Bilirubin 0.8 mg/dL (0.2-1.3); Total Protein 4.8 g/dL (6.3-8.2)
[2021-09-17 18:05] LABS: Band Neutrophils % 1 %; Lymphocytes # (M) 0.25 k/uL (1.0-4.8); Metamyelocytes # (M) 0.17 k/uL (0); Metamyelocytes % 2 %; Myelocytes # (M) 0.08 k/uL (0); Myelocytes % 1 %; Neutrophils % (M) 87 %; Nucleated Red Blood Cells 0 /100 WBC (0-0); Total Cells Counted 100
[2021-09-17] MEDS: GABAPENTIN 100 MG CAP PO SCH (19:52)
[2021-09-17] MEDS: CHLORHEXIDINE GLUCONATE 15 ML CUP MUCOUS MEM SCH (19:56)
[2021-09-17] MEDS: HYDROmorphone 1 MG/ML 1 ML SYRINGE IVP PRN (19:56)
[2021-09-17] MEDS ORDERED: SODIUM CHLORIDE 0.9% 1,000 ML IV ONE (20:46)
[2021-09-17] MEDS: NOREPINEPHRINE 4 MG in SODIUM CHLORIDE 0.9% 250 ML IV SCH (21:21)
[2021-09-17 22:08] LABS: Glucose,Whole Blood 154 mg/dL (75-99)
[2021-09-17 22:44] LABS: Anisocytosis Slight; HCT 27.4 % (39.0-53.0); Hypochromasia Marked; MCH 27.9 pg (25.0-35.0); Mean Platelet Volume 8.3; Platelet Count 310 k/uL (150-450); RBC 2.95 m/uL (4.30-5.90); RDW 16.8 % (11.5-15.5); WBC 7.2 k/uL (3.8-10.6)
[2021-09-17 22:47] LABS: HGB 8.2 gm/dL (13.0-17.5)
[2021-09-17 23:16] LABS: Band Neutrophils % 6 %; Lymphocytes # (M) 0.36 k/uL (1.0-4.8); Metamyelocytes # (M) 0.07 k/uL (0); Metamyelocytes % 1 %; Monocytes # (M) 0.29 k/uL (0-1.0); Myelocytes # (M) 0.14 k/uL (0); Myelocytes % 2 %; Neutrophils % (M) 82 %; Nucleated Red Blood Cells 0 /100 WBC (0-0); Total Cells Counted 100
[2021-09-18 00:13] LABS: Glucose,Whole Blood 162 mg/dL (75-99)
[2021-09-18] MEDS: NOREPINEPHRINE 4 MG in SODIUM CHLORIDE 0.9% 250 ML IV SCH ×5 (02:07→14:45)
[2021-09-18] MEDS: HYDROmorphone 1 MG/ML 1 ML SYRINGE IVP PRN (02:37)
[2021-09-18 05:31] LABS: ABG Base Excess -14.9 mmol/L; ABG HCO3 14 mmol/L (21-25); ABG Oxygen Saturation 98.1 % (94-97); ABG PCO2 43 mmHg (35-45); ABG PO2 127 mmHg (83-108); ABG TCO2 16 mmol/L (19-24); Allen Test Performed? Yes
[2021-09-18 05:34] LABS: ABG PH 7.13 (7.35-7.45)
[2021-09-18] MEDS: DEXTROSE 5% IN WATER 1,000 ML with SODIUM BICARB (1 MEQ/ML) 100 ML IV SCH ×2 (06:30→20:51)
[2021-09-18] MEDS: PANTOPRAZOLE 40 MG TABLET PO SCH (06:41)
[2021-09-18 06:44] LABS: Albumin 2.3 g/dL (3.5-5.0); Calcium 8.1 mg/dL (8.4-10.2); Total Bilirubin 1.3 mg/dL (0.2-1.3); Total Protein 5.2 g/dL (6.3-8.2)
--- NOTE | 2021-09-18 06:49 | XR ---
EXAMINATION TYPE: XR chest 1V portable DATE OF EXAM: 09/18/2021 COMPARISON: 09/17/2021 HISTORY: Tube placement TECHNIQUE: Single frontal view of the chest is obtained. FINDINGS: There is an ET tube 5.5 cm above the zari. There is been interval placement of an NG tub e stomach. No change in the retrocardiac opacity. The pulmonary vasculature appears congested. There is no pneum othorax. The osseous structures are intact. IMPRESSION: ET tube 5.5 cm above the zari. No change in the pulmonary vascular congestion and retr ocardiac opacity likely reflecting pleural effusion and atelectasis.
[2021-09-18 06:56] LABS: Potassium 5.9 mmol/L (3.5-5.1)
[2021-09-18] MEDS: IPRATROPIUM-ALBUTEROL 3 ML NEB INHALATION SCH ×4 (07:33→19:30)
[2021-09-18] MEDS: SYMBICORT 80-4.5 MCG INHALER INHALATION SCH (07:33)
[2021-09-18] MEDS: SODIUM CHLORIDE 0.9% 1,000 ML IV SCH (07:43)
[2021-09-18 08:15] LABS: Anisocytosis Slight; HCT 28.5 % (39.0-53.0); HGB 8.2 gm/dL (13.0-17.5); Hypochromasia Marked; MCH 27.7 pg (25.0-35.0); MCHC 28.7 g/dL (31.0-37.0); MCV 96.6 fL (80.0-100.0); Macrocytosis Slight; Mean Platelet Volume 7.9; Platelet Count 513 k/uL (150-450); RBC 2.95 m/uL (4.30-5.90); RDW 17.5 % (11.5-15.5); WBC 11.8 k/uL (3.8-10.6)
[2021-09-18] MEDS: METOPROLOL TARTRATE 12.5 MG TAB PO SCH (08:45)
[2021-09-18] MEDS: PIPERACILLIN-TAZOBACTAM 3.375 GM in SODIUM CHLORIDE 0.9% 100 ML IVPB SCH ×2 (08:51→20:51)
[2021-09-18] MEDS: CHLORHEXIDINE GLUCONATE 15 ML CUP MUCOUS MEM SCH ×2 (08:51→20:51)
[2021-09-18] MEDS: SODIUM BICARBONATE TAB 650 MG TAB PO SCH (08:52)
[2021-09-18] MEDS: ENOXAPARIN 30 MG/0.3 ML SYRINGE SQ SCH (08:52)
[2021-09-18] MEDS ORDERED: ENOXAPARIN 40 MG/0.4 ML SYRINGE SQ SCH (09:00)
[2021-09-18] MEDS: PANTOPRAZOLE 40 MG/10 ML VIAL IVP SCH (10:05)
--- NOTE | 2021-09-18 10:13 | P.PN ---
Subjective Progress Note Date: 09/18/21 Principal diagnosis: Status post open cholecystectomy. On 09/13/2021 patient seen in follow-up in the intensive care unit. He is awake and alert, in no acute distress, he is resting comfortably in bed, denies any dyspnea. Room air pulse ox is 94%, patient is having hemodialysis treatment. He did wear CPAP support last night. Patient remains on empiric antibiotics with doxycycline and Zosyn. Patient continues to have low-grade fevers and a T- max in the last 24 hours was 101.6F at 8:00 in the morning yesterday. No cough, no chest discomfort, no hemoptysis. Hemodynamically stable, he is receiving IV fluids normal saline at a rate of 75 ML per hour. Breathing is non labored, comfortable. His chest x-ray on 09/11/2021 showed mild blunting of the left costophrenic angle, clear right lung. Today's labs have been reviewed with blood cell count is 7.6, hemoglobin is 11.3, platelet count is 194, sodium is 132, the rest of electrolytes were within normal limits, BUN is 47, creatinine is 3.22. Patient is not requiring any vasopressor support, echocardiogram has been completed showing moderate concentric LVH, EF of 55-60%, and severe enlargement of the right ventricle. On 09/14/2021 patient seen in follow-up on selective care unit, he is resting in bed, breathing comfortably, lung sounds are essentially clear to auscultation, no rhonchi no wheezing, denies any cough, no phlegm production or chest discomfort. She did wear his CPAP device at night. At the on room air pulse ox is 95%, he was dialyzed yesterday and 900 mL of fluid was removed with hemodial ysis. No plans for hemodialysis today according to the patient. Today's labs have been reviewed, sodium is 135, the rest of electrolytes are within normal limits, BUN is 39, creatinine is 3.31. 4 sets of blood cultures have shown no growth thus far since admission. Unclear the source of possible infection, patient remains on antibiotics for empiric antibiotic coverage, as patient for pneumonia is low On 09/16/2021 patient seen in follow-up on medical surgical floor, he is resting in bed, does not appear to be in any acute distress, he is currently it is of oxygen, he is satting 96%, at night he is been wearing his CPAP device from home. Denies any worsening dyspnea, no complaints of chest discomfort, still has some mild generalized edema. Today's labs have been reviewed, white blood cell count is 8.9, hemoglobin is 11.7, sodium is 138, potassium is 4.2, chloride is 107, CO2 is 15, B1 is 35, creatinine is 4.09. Nephrology is following, and had hemodialysis treatment yesterday with removal 1.3 L of fluid. Appetite is fair, no nausea or vomiting, however patient is incontinent of liquid brown stool. Patient has had no fever or chills, his blood cultures have been negative, as of dyspnea or cough, no phlegm production, breathing comfortably, lung sounds are clear. His last chest x-ray was on 09/14/2021 grossly unremarkable lungs. On 09/17/2021 patient seen in follow-up in the recovery room. This morning patient was taken to surgery for cholecystectomy and he was found to have acute gangrenous cholecystitis with transmural necrosis of gallbladder wall. Following the procedure patient is still intubated and sedated in the recovery room, on assist control mode of ventilation with a rate of 12, tidal volume is 450, FiO2 of 100% and PEEP of 5. His peak air pressure is 28, plateau is 21, he is resting comfortably on a gurney in the recovery room, still sedated, Diprivan will be started, 0.9 normal saline at a rate of 75 ML per hour, his postoperative blood gas and chest x-ray are pending. This morning's labs have been reviewed, white blood cell count was 8.8, hemoglobin was 10.9, sodium is 136, potassium 3.8, BUN was 44, creatinine is 5.05, postoperative labs are pending. Patient continues on Zosyn for antibiotic coverage. Surgical incision is clean dry and intact, abdominal binder is in place, NG tube is in place to low intermittent suction. Progress note dated 09/18/2021. Yesterday, the patient was seen in the recovery room with the nurse parker del cid. The patient's postop day #1, status post open cholecystectomy. The patient initially was a laparoscopic cholecystectomy. The patient is still on the mechanical ventilator. He is on the volume assist control mode, rate 12, tidal volume 450, FiO2 40%, PEEP of 5. Blood gases show pO2 of 127, pCO2 42, and pH is 7.13. The patient's getting D5 W with 2 ampules of sodium bicarbonate at 75 mL an hour, propofol at 30 mcg/kg/m and norepinephrine at 26 mcg/m. I did ask the nurse to draw a stat random cortisol level. The patient is currently on Zosyn. We'll attempt a daily interruption of sedation and a spontaneous breathing trial with a PSV of 5, and CPAP of 5. Microbiology is thus far negative. He's having hemodialysis today. The goal is to room 2 L. White count 11.8, heme him 8.2, hematocrit 28.5, and platelet count 513,000. Sodium 139, potassium 5.9, chlorides 110, CO2 10, anion gap is 19, BUN 49, creatinine 5.79. Albumin is 2.3. Chest x-rays consistent with mild pulmonary vascular congestion. Objective - Vital Signs Vital signs: Vital Signs Temp 97.7 F 09/18/21 08:00 Pulse 111 H 09/18/21 09:00 Resp 20 09/18/21 09:00 BP 103/59 09/18/21 09:00 Pulse Ox 99 09/18/21 09:00 Intake & Output 09/17/21 09/18/21 09/18/21 18:59 06:59 18:59 Intake Total 8600.304 9276.000 250 Output Total 200 140 0 Balance 6855.197 2285.000 250 Weight 130 kg Intake: IV 1200 2025 250 Dextrose 5% in Water 1, 150 000 ml @ 75 mls/hr IV . [id number] ERINN with Sodium Bicarb (1 Meq/ml) 100 ml Rx#:[id number] Piperacillin-Tazobactam 3 125 100 .375 gm In Sodium Chloride 0.9% 100 ml @ 25 mls/hr IVPB Q12HR ERINN Rx #:[id number] Sodium Chloride 0.9% 1, 300 1900 000 ml @ 50 mls/hr IV . Q20H ERINN Rx#:[id number] Intake, IV Titration 64.090 508.000 Amount Norepinephrine 4 mg In 508.000 Sodium Chloride 0.9% 250 ml @ 0.05 MCG/KG/MIN 24. 765 mls/hr IV .[id number] ERINN Rx#:[id number] propofoL 1,000 mg In 64.090 Empty Bag 1 bag @ 5 MCG/ KG/MIN 3.9 mls/hr IV . Q24H ERINN Rx#:[id number] Output: Drainage 0 Right Abdomen 0 Urine 140 0 Estimated Blood Loss 200 Other: Voiding Method External Catheter Indwelling Catheter Indwelling Catheter - Exam No acute distress, sedated, with an orally placed endotracheal tube and NG tube. HEENT examination is grossly unremarkable. Neck supple. Full range of motion. No adenopathy thyromegaly or neck vein distention. Cardiovascular examination reveals regular rhythm rate. S1-S2 normal. No S3 or S4. No discernible murmur noted. Heart rate 100 bpm. Heart sounds are distant. Lungs reveal scattered bilateral rhonchi. No wheezes or crackles. Breath sounds equal bilaterally. Saturations are 99%. Abdomen soft, without bowel sounds. Extremities are intact. No cyanosis clubbing or edema. Skin is without rash or lesion. Neurologic examination cannot be assessed as the patient's currently sedated. - Labs CBC & Chem 7: 09/18/21 07:56 09/18/21 05:51 Labs: Abnormal Lab Results - Last 24 Hours (Table) 09/17/21 09/17/21 09/17/21 Range/Units 13:34 14:12 15:17 WBC (3.8-10.6) k/uL RBC (4.30-5.90) m/uL Hgb (13.0-17.5) gm/dL Hct (39.0-53.0) % MCHC (31.0-37.0) g/dL RDW (11.5-15.5) % Plt Count (150-450) k/uL Lymphocytes # (Manual) (1.0-4.8) k/uL Metamyelocytes # (Man) (0) k/uL Myelocytes # (Manual) (0) k/uL ABG pH 7.19 L* (7.35-7.45) ABG pO2 228 H (83-108) mmHg ABG HCO3 16 L (21-25) mmol/L ABG Total CO2 17 L (19-24) mmol/L ABG O2 Saturation 99.5 H (94-97) % Potassium (3.5-5.1) mmol/L Chloride (98-107) mmol/L Carbon Dioxide (22-30) mmol/L BUN (9-20) mg/dL Creatinine (0.66-1.25) mg/dL Glucose (74-99) mg/dL POC Glucose (mg/dL) 123 H 131 H (75-99) mg/dL Calcium (8.4-10.2) mg/dL AST (17-59) U/L ALT (4-49) U/L Alkaline Phosphatase (38-126) U/L Total Protein (6.3-8.2) g/dL Albumin (3.5-5.0) g/dL 09/17/21 09/17/21 09/17/21 Range/Units 15:37 15:37 21:06 WBC (3.8-10.6) k/uL RBC 3.51 L 2.95 L (4.30-5.90) m/uL Hgb 9.9 L 8.2 L D (13.0-17.5) gm/dL Hct 33.1 L 27.4 L (39.0-53.0) % MCHC 29.8 L 30.0 L (31.0-37.0) g/dL RDW 16.9 H 16.8 H (11.5-15.5) % Plt Count (150-450) k/uL Lymphocytes # (Manual) 0.25 L 0.36 L (1.0-4.8) k/uL Metamyelocytes # (Man) 0.17 H 0.07 H (0) k/uL Myelocytes # (Manual) 0.08 H 0.14 H (0) k/uL ABG pH (7.35-7.45) ABG pO2 (83-108) mmHg ABG HCO3 (21-25) mmol/L ABG Total CO2 (19-24) mmol/L ABG O2 Saturation (94-97) % Potassium (3.5-5.1) mmol/L Chloride (98-107) mmol/L Carbon Dioxide 16 L (22-30) mmol/L BUN 44 H (9-20) mg/dL Creatinine 5.52 H (0.66-1.25) mg/dL Glucose 112 H (74-99) mg/dL POC Glucose (mg/dL) (75-99) mg/dL Calcium 8.2 L (8.4-10.2) mg/dL AST 97 H (17-59) U/L ALT 60 H (4-49) U/L Alkaline Phosphatase 212 H (38-126) U/L Total Protein 4.8 L (6.3-8.2) g/dL Albumin 2.3 L (3.5-5.0) g/dL 09/17/21 09/18/21 09/18/21 Range/Units 22:06 00:10 05:29 WBC (3.8-10.6) k/uL RBC (4.30-5.90) m/uL Hgb (13.0-17.5) gm/dL Hct (39.0-53.0) % MCHC (31.0-37.0) g/dL RDW (11.5-15.5) % Plt Count (150-450) k/uL Lymphocytes # (Manual) (1.0-4.8) k/uL Metamyelocytes # (Man) (0) k/uL Myelocytes # (Manual) (0) k/uL ABG pH 7.13 L* (7.35-7.45) ABG pO2 127 H (83-108) mmHg ABG HCO3 14 L (21-25) mmol/L ABG Total CO2 16 L (19-24) mmol/L ABG O2 Saturation 98.1 H (94-97) % Potassium (3.5-5.1) mmol/L Chloride (98-107) mmol/L Carbon Dioxide (22-30) mmol/L BUN (9-20) mg/dL Creatinine (0.66-1.25) mg/dL Glucose (74-99) mg/dL POC Glucose (mg/dL) 154 H 162 H (75-99) mg/dL Calcium (8.4-10.2) mg/dL AST (17-59) U/L ALT (4-49) U/L Alkaline Phosphatase (38-126) U/L Total Protein (6.3-8.2) g/dL Albumin (3.5-5.0) g/dL 09/18/21 09/18/21 Range/Units 05:51 07:56 WBC 11.8 H (3.8-10.6) k/uL RBC 2.95 L (4.30-5.90) m/uL Hgb 8.2 L (13.0-17.5) gm/dL Hct 28.5 L (39.0-53.0) % MCHC 28.7 L (31.0-37.0) g/dL RDW 17.5 H (11.5-15.5) % Plt Count 513 H (150-450) k/uL Lymphocytes # (Manual) (1.0-4.8) k/uL Metamyelocytes # (Man) (0) k/uL Myelocytes # (Manual) (0) k/uL ABG pH (7.35-7.45) ABG pO2 (83-108) mmHg ABG HCO3 (21-25) mmol/L ABG Total CO2 (19-24) mmol/L ABG O2 Saturation (94-97) % Potassium 5.9 H (3.5-5.1) mmol/L Chloride 110 H (98-107) mmol/L Carbon Dioxide 10 L (22-30) mmol/L BUN 49 H (9-20) mg/dL Creatinine 5.79 H (0.66-1.25) mg/dL Glucose 148 H (74-99) mg/dL POC Glucose (mg/dL) (75-99) mg/dL Calcium 8.1 L (8.4-10.2) mg/dL AST 79 H (17-59) U/L ALT (4-49) U/L Alkaline Phosphatase 135 H (38-126) U/L Total Protein 5.2 L (6.3-8.2) g/dL Albumin 2.3 L (3.5-5.0) g/dL Microbiology - Last 24 Hours (Table) 09/12/21 10:28 Blood Culture - Preliminary Blood No Growth after 120 hours 09/12/21 10:29 Blood Culture - Preliminary Blood No Growth after 120 hours Assessment and Plan Assessment: Acute gangrenous cholecystitis, status post cholecystectomy, 09/17/2021, postop day #1. Routine postoperative ventilator management. Acute kidney injury, currently on hemodialysis. Metabolic acidosis, secondary to kidney injury. Morbid obesity, with a BMI of 41.8. Hypotension, related to sepsis. Acute hypoxemic respiratory failure. History of chronic bronchial asthma. Type 2 diabetes. History of hyperlipidemia. History of hypertension. History of sleep apnea syndrome. History of BPH. Plan: Plan dated 09/18/2021. Currently, the patient seems to be reasonably stable other than his hypotension. The patient's currently on norepinephrine at 26 mcg/m. The patient will have a random stat cortisol done. The patient may be exhibiting some adrenal insufficiency. He may then over from hydrocortisone administration. He remains on Zosyn. Microbiologic studies are negative. The patient is getting hemodialysis today. The goal is to remove 2 L. I did start the patient on some D5W, with 2 ampules of sodium bicarbonate at 75 mL an hour for his metabolic acidosis. Some of that may improve with dialysis. Today's postop day #1. Prognosis is guarded. We will continue to follow and make recommendations where appropriate. Time with Patient: Greater than 30
[2021-09-18 10:40] LABS: Band Neutrophils % 2 %; Lymphocytes # (M) 0.71 k/uL (1.0-4.8); Metamyelocytes # (M) 0.24 k/uL (0); Metamyelocytes % 2 %; Monocytes # (M) 0.47 k/uL (0-1.0); Myelocytes # (M) 0.12 k/uL (0); Myelocytes % 1 %; Neutrophils % (M) 86 %; Nucleated Red Blood Cells 0 /100 WBC (0-0); Total Cells Counted 200
--- NOTE | 2021-09-18 11:17 | P.PN ---
Subjective Patient is seen for follow-up for acute kidney injury and hyperkalemia. He was significantly hypotensive on initial admission. Serum creatinine had peaked at 3.7 mg/dL but due to the potassium staying elevated at 7.3 patient was dialyzed . Urine output had improved and dialysis was held to monitor for possible recovery of renal function but urine output remained low and therefore patient has been maintained on dialysis. Patient was taken to or yesterday and had open cholecystectomy. He was found to have acute gangrenous cholecystitis and necrosis of the gallbladder wall. Postoperatively patient has been transferred to the ICU. He remains intubated. Poor urine output Patient is maintained on levo fed at 0.18 mcg/kg Objective - Vital Signs Vital signs: Vital Signs Temp 97.7 F 09/18/21 08:00 Pulse 108 H 09/18/21 11:00 Resp 16 09/18/21 11:00 BP 115/61 09/18/21 11:00 Pulse Ox 98 09/18/21 11:00 Intake & Output 09/17/21 09/18/21 09/18/21 18:59 06:59 18:59 Intake Total 6023.070 7980.000 528.778 Output Total 200 140 0 Balance 2187.447 7967.000 528.778 Weight 130 kg Intake: IV 1200 2025 400 Dextrose 5% in Water 1, 300 000 ml @ 75 mls/hr IV . [id number] ERINN with Sodium Bicarb (1 Meq/ml) 100 ml Rx#:[id number] Piperacillin-Tazobactam 3 125 100 .375 gm In Sodium Chloride 0.9% 100 ml @ 25 mls/hr IVPB Q12HR ERINN Rx #:[id number] Sodium Chloride 0.9% 1, 300 1900 000 ml @ 50 mls/hr IV . Q20H ERINN Rx#:[id number] Intake, IV Titration 64.090 508.000 128.778 Amount Norepinephrine 4 mg In 508.000 128.778 Sodium Chloride 0.9% 250 ml @ 0.05 MCG/KG/MIN 24. 765 mls/hr IV .[id number] ERINN Rx#:[id number] propofoL 1,000 mg In 64.090 Empty Bag 1 bag @ 5 MCG/ KG/MIN 3.9 mls/hr IV . Q24H ERINN Rx#:[id number] Output: Drainage 0 Right Abdomen 0 Urine 140 0 Estimated Blood Loss 200 Other: Voiding Method External Catheter Indwelling Catheter Indwelling Catheter - Exam Patient is sedated. He is currently on the vent. Examination of the heart S1 and S2 Examination lungs bilateral breath sounds are heard Abdomen is soft obese nontender Examination lower extremities shows 1+ edema [employer] exam cannot be performed - Labs CBC & Chem 7: 09/18/21 07:56 09/18/21 05:51 Labs: Abnormal Lab Results - Last 24 Hours (Table) 09/17/21 09/17/21 09/17/21 Range/Units 13:34 14:12 15:17 WBC (3.8-10.6) k/uL RBC (4.30-5.90) m/uL Hgb (13.0-17.5) gm/dL Hct (39.0-53.0) % MCHC (31.0-37.0) g/dL RDW (11.5-15.5) % Plt Count (150-450) k/uL Neutrophils # (Manual) (1.3-7.7) k/uL Lymphocytes # (Manual) (1.0-4.8) k/uL Metamyelocytes # (Man) (0) k/uL Myelocytes # (Manual) (0) k/uL ABG pH 7.19 L* (7.35-7.45) ABG pO2 228 H (83-108) mmHg ABG HCO3 16 L (21-25) mmol/L ABG Total CO2 17 L (19-24) mmol/L ABG O2 Saturation 99.5 H (94-97) % Potassium (3.5-5.1) mmol/L Chloride (98-107) mmol/L Carbon Dioxide (22-30) mmol/L BUN (9-20) mg/dL Creatinine (0.66-1.25) mg/dL Glucose (74-99) mg/dL POC Glucose (mg/dL) 123 H 131 H (75-99) mg/dL Calcium (8.4-10.2) mg/dL AST (17-59) U/L ALT (4-49) U/L Alkaline Phosphatase (38-126) U/L Total Protein (6.3-8.2) g/dL Albumin (3.5-5.0) g/dL 09/17/21 09/17/21 09/17/21 Range/Units 15:37 15:37 21:06 WBC (3.8-10.6) k/uL RBC 3.51 L 2.95 L (4.30-5.90) m/uL Hgb 9.9 L 8.2 L D (13.0-17.5) gm/dL Hct 33.1 L 27.4 L (39.0-53.0) % MCHC 29.8 L 30.0 L (31.0-37.0) g/dL RDW 16.9 H 16.8 H (11.5-15.5) % Plt Count (150-450) k/uL Neutrophils # (Manual) (1.3-7.7) k/uL Lymphocytes # (Manual) 0.25 L 0.36 L (1.0-4.8) k/uL Metamyelocytes # (Man) 0.17 H 0.07 H (0) k/uL Myelocytes # (Manual) 0.08 H 0.14 H (0) k/uL ABG pH (7.35-7.45) ABG pO2 (83-108) mmHg ABG HCO3 (21-25) mmol/L ABG Total CO2 (19-24) mmol/L ABG O2 Saturation (94-97) % Potassium (3.5-5.1) mmol/L Chloride (98-107) mmol/L Carbon Dioxide 16 L (22-30) mmol/L BUN 44 H (9-20) mg/dL Creatinine 5.52 H (0.66-1.25) mg/dL Glucose 112 H (74-99) mg/dL POC Glucose (mg/dL) (75-99) mg/dL Calcium 8.2 L (8.4-10.2) mg/dL AST 97 H (17-59) U/L ALT 60 H (4-49) U/L Alkaline Phosphatase 212 H (38-126) U/L Total Protein 4.8 L (6.3-8.2) g/dL Albumin 2.3 L (3.5-5.0) g/dL 09/17/21 09/18/21 09/18/21 Range/Units 22:06 00:10 05:29 WBC (3.8-10.6) k/uL RBC (4.30-5.90) m/uL Hgb (13.0-17.5) gm/dL Hct (39.0-53.0) % MCHC (31.0-37.0) g/dL RDW (11.5-15.5) % Plt Count (150-450) k/uL Neutrophils # (Manual) (1.3-7.7) k/uL Lymphocytes # (Manual) (1.0-4.8) k/uL Metamyelocytes # (Man) (0) k/uL Myelocytes # (Manual) (0) k/uL ABG pH 7.13 L* (7.35-7.45) ABG pO2 127 H (83-108) mmHg ABG HCO3 14 L (21-25) mmol/L ABG Total CO2 16 L (19-24) mmol/L ABG O2 Saturation 98.1 H (94-97) % Potassium (3.5-5.1) mmol/L Chloride (98-107) mmol/L Carbon Dioxide (22-30) mmol/L BUN (9-20) mg/dL Creatinine (0.66-1.25) mg/dL Glucose (74-99) mg/dL POC Glucose (mg/dL) 154 H 162 H (75-99) mg/dL Calcium (8.4-10.2) mg/dL AST (17-59) U/L ALT (4-49) U/L Alkaline Phosphatase (38-126) U/L Total Protein (6.3-8.2) g/dL Albumin (3.5-5.0) g/dL 09/18/21 09/18/21 Range/Units 05:51 07:56 WBC 11.8 H (3.8-10.6) k/uL RBC 2.95 L (4.30-5.90) m/uL Hgb 8.2 L (13.0-17.5) gm/dL Hct 28.5 L (39.0-53.0) % MCHC 28.7 L (31.0-37.0) g/dL RDW 17.5 H (11.5-15.5) % Plt Count 513 H (150-450) k/uL Neutrophils # (Manual) 10.30 H (1.3-7.7) k/uL Lymphocytes # (Manual) 0.71 L (1.0-4.8) k/uL Metamyelocytes # (Man) 0.24 H (0) k/uL Myelocytes # (Manual) 0.12 H (0) k/uL ABG pH (7.35-7.45) ABG pO2 (83-108) mmHg ABG HCO3 (21-25) mmol/L ABG Total CO2 (19-24) mmol/L ABG O2 Saturation (94-97) % Potassium 5.9 H (3.5-5.1) mmol/L Chloride 110 H (98-107) mmol/L Carbon Dioxide 10 L (22-30) mmol/L BUN 49 H (9-20) mg/dL Creatinine 5.79 H (0.66-1.25) mg/dL Glucose 148 H (74-99) mg/dL POC Glucose (mg/dL) (75-99) mg/dL Calcium 8.1 L (8.4-10.2) mg/dL AST 79 H (17-59) U/L ALT (4-49) U/L Alkaline Phosphatase 135 H (38-126) U/L Total Protein 5.2 L (6.3-8.2) g/dL Albumin 2.3 L (3.5-5.0) g/dL Microbiology - Last 24 Hours (Table) 09/12/21 10:28 Blood Culture - Preliminary Blood No Growth after 120 hours 09/12/21 10:29 Blood Culture - Preliminary Blood No Growth after 120 hours Assessment and Plan Assessment: 1. Hyperkalemia associated with acute kidney injury use of JENSEN inhibitor's prior to admission currently improved. 2. Acute kidney injury secondary to ATN from hypotension previous creatinine 0.7 on 08/10/2021. Started dialysis on 09/12/2021 for severe hyperkalemia. Urine output is no postoperatively. Patient is maintained on dialysis. 3. Metabolic acidosis associated with acute kidney injury and recent shock and hypotension. 4. Acute cholecystitis with gangrenous bladder status post open cholecystectomy on 09/17/2021 5. Acute hypoxic respiratory failure, Currently on the vent Plan: Hemodialysis today Repeat in a.m. Adjust bicarb on the machine Continue with IV bicarb.
[2021-09-18 11:54] LABS: Glucose,Whole Blood 159 mg/dL (75-99)
--- NOTE | 2021-09-18 12:00 | P.PN ---
Subjective Progress Note Date: 09/18/21 Principal diagnosis: Gangrenous cholecystitis Patient remains on the ventilator. Receiving dialysis at this time. Patient remains tachycardic and acidotic. Hemoglobin 8.2. Patient had some bleeding from the incision line. Objective - Vital Signs Vital signs: Vital Signs Temp 97.7 F 09/18/21 08:00 Pulse 112 H 09/18/21 11:42 Resp 16 09/18/21 11:00 BP 115/61 09/18/21 11:00 Pulse Ox 98 09/18/21 11:00 Intake & Output 09/17/21 09/18/21 09/18/21 18:59 06:59 18:59 Intake Total 3262.515 1117.000 637.249 Output Total 200 140 0 Balance 5285.892 1582.000 637.249 Weight 130 kg Intake: IV 1200 2025 400 Dextrose 5% in Water 1, 300 000 ml @ 75 mls/hr IV . [id number] ERINN with Sodium Bicarb (1 Meq/ml) 100 ml Rx#:[id number] Piperacillin-Tazobactam 3 125 100 .375 gm In Sodium Chloride 0.9% 100 ml @ 25 mls/hr IVPB Q12HR ERINN Rx #:[id number] Sodium Chloride 0.9% 1, 300 1900 000 ml @ 50 mls/hr IV . Q20H ERINN Rx#:[id number] Intake, IV Titration 64.090 608.000 237.249 Amount Norepinephrine 4 mg In 508.000 237.249 Sodium Chloride 0.9% 250 ml @ 0.05 MCG/KG/MIN 24. 765 mls/hr IV .[id number] ERINN Rx#:[id number] propofoL 1,000 mg In 64.090 100 Empty Bag 1 bag @ 5 MCG/ KG/MIN 3.9 mls/hr IV . Q24H ERINN Rx#:[id number] Output: Drainage 0 Right Abdomen 0 Urine 140 0 Estimated Blood Loss 200 Other: Voiding Method External Catheter Indwelling Catheter Indwelling Catheter - Exam Abdomen: Soft, mild distention, mild tenderness, right subcostal incision with 2 sites of active oozing - Labs CBC & Chem 7: 09/18/21 07:56 09/18/21 05:51 Labs: Abnormal Lab Results - Last 24 Hours (Table) 09/17/21 09/17/21 09/17/21 Range/Units 13:34 14:12 15:17 WBC (3.8-10.6) k/uL RBC (4.30-5.90) m/uL Hgb (13.0-17.5) gm/dL Hct (39.0-53.0) % MCHC (31.0-37.0) g/dL RDW (11.5-15.5) % Plt Count (150-450) k/uL Neutrophils # (Manual) (1.3-7.7) k/uL Lymphocytes # (Manual) (1.0-4.8) k/uL Metamyelocytes # (Man) (0) k/uL Myelocytes # (Manual) (0) k/uL ABG pH 7.19 L* (7.35-7.45) ABG pO2 228 H (83-108) mmHg ABG HCO3 16 L (21-25) mmol/L ABG Total CO2 17 L (19-24) mmol/L ABG O2 Saturation 99.5 H (94-97) % Potassium (3.5-5.1) mmol/L Chloride (98-107) mmol/L Carbon Dioxide (22-30) mmol/L BUN (9-20) mg/dL Creatinine (0.66-1.25) mg/dL Glucose (74-99) mg/dL POC Glucose (mg/dL) 123 H 131 H (75-99) mg/dL Calcium (8.4-10.2) mg/dL AST (17-59) U/L ALT (4-49) U/L Alkaline Phosphatase (38-126) U/L Total Protein (6.3-8.2) g/dL Albumin (3.5-5.0) g/dL 09/17/21 09/17/21 09/17/21 Range/Units 15:37 15:37 21:06 WBC (3.8-10.6) k/uL RBC 3.51 L 2.95 L (4.30-5.90) m/uL Hgb 9.9 L 8.2 L D (13.0-17.5) gm/dL Hct 33.1 L 27.4 L (39.0-53.0) % MCHC 29.8 L 30.0 L (31.0-37.0) g/dL RDW 16.9 H 16.8 H (11.5-15.5) % Plt Count (150-450) k/uL Neutrophils # (Manual) (1.3-7.7) k/uL Lymphocytes # (Manual) 0.25 L 0.36 L (1.0-4.8) k/uL Metamyelocytes # (Man) 0.17 H 0.07 H (0) k/uL Myelocytes # (Manual) 0.08 H 0.14 H (0) k/uL ABG pH (7.35-7.45) ABG pO2 (83-108) mmHg ABG HCO3 (21-25) mmol/L ABG Total CO2 (19-24) mmol/L ABG O2 Saturation (94-97) % Potassium (3.5-5.1) mmol/L Chloride (98-107) mmol/L Carbon Dioxide 16 L (22-30) mmol/L BUN 44 H (9-20) mg/dL Creatinine 5.52 H (0.66-1.25) mg/dL Glucose 112 H (74-99) mg/dL POC Glucose (mg/dL) (75-99) mg/dL Calcium 8.2 L (8.4-10.2) mg/dL AST 97 H (17-59) U/L ALT 60 H (4-49) U/L Alkaline Phosphatase 212 H (38-126) U/L Total Protein 4.8 L (6.3-8.2) g/dL Albumin 2.3 L (3.5-5.0) g/dL 09/17/21 09/18/21 09/18/21 Range/Units 22:06 00:10 05:29 WBC (3.8-10.6) k/uL RBC (4.30-5.90) m/uL Hgb (13.0-17.5) gm/dL Hct (39.0-53.0) % MCHC (31.0-37.0) g/dL RDW (11.5-15.5) % Plt Count (150-450) k/uL Neutrophils # (Manual) (1.3-7.7) k/uL Lymphocytes # (Manual) (1.0-4.8) k/uL Metamyelocytes # (Man) (0) k/uL Myelocytes # (Manual) (0) k/uL ABG pH 7.13 L* (7.35-7.45) ABG pO2 127 H (83-108) mmHg ABG HCO3 14 L (21-25) mmol/L ABG Total CO2 16 L (19-24) mmol/L ABG O2 Saturation 98.1 H (94-97) % Potassium (3.5-5.1) mmol/L Chloride (98-107) mmol/L Carbon Dioxide (22-30) mmol/L BUN (9-20) mg/dL Creatinine (0.66-1.25) mg/dL Glucose (74-99) mg/dL POC Glucose (mg/dL) 154 H 162 H (75-99) mg/dL Calcium (8.4-10.2) mg/dL AST (17-59) U/L ALT (4-49) U/L Alkaline Phosphatase (38-126) U/L Total Protein (6.3-8.2) g/dL Albumin (3.5-5.0) g/dL 09/18/21 09/18/21 09/18/21 Range/Units 05:51 07:56 11:53 WBC 11.8 H (3.8-10.6) k/uL RBC 2.95 L (4.30-5.90) m/uL Hgb 8.2 L (13.0-17.5) gm/dL Hct 28.5 L (39.0-53.0) % MCHC 28.7 L (31.0-37.0) g/dL RDW 17.5 H (11.5-15.5) % Plt Count 513 H (150-450) k/uL Neutrophils # (Manual) 10.30 H (1.3-7.7) k/uL Lymphocytes # (Manual) 0.71 L (1.0-4.8) k/uL Metamyelocytes # (Man) 0.24 H (0) k/uL Myelocytes # (Manual) 0.12 H (0) k/uL ABG pH (7.35-7.45) ABG pO2 (83-108) mmHg ABG HCO3 (21-25) mmol/L ABG Total CO2 (19-24) mmol/L ABG O2 Saturation (94-97) % Potassium 5.9 H (3.5-5.1) mmol/L Chloride 110 H (98-107) mmol/L Carbon Dioxide 10 L (22-30) mmol/L BUN 49 H (9-20) mg/dL Creatinine 5.79 H (0.66-1.25) mg/dL Glucose 148 H (74-99) mg/dL POC Glucose (mg/dL) 159 H (75-99) mg/dL Calcium 8.1 L (8.4-10.2) mg/dL AST 79 H (17-59) U/L ALT (4-49) U/L Alkaline Phosphatase 135 H (38-126) U/L Total Protein 5.2 L (6.3-8.2) g/dL Albumin 2.3 L (3.5-5.0) g/dL Microbiology - Last 24 Hours (Table) 09/12/21 10:28 Blood Culture - Preliminary Blood No Growth after 120 hours 09/12/21 10:29 Blood Culture - Preliminary Blood No Growth after 120 hours Assessment and Plan (1) Acute gangrenous cholecystitis Narrative/Plan: 61-year-old male status post open cholecystectomy. 2 sites of bleeding along the incision were controlled using [id number] 3-0 silk stick tie sutures. No further bleeding seen. Continue to monitor for recurrent bleeding. Keep GRETCHEN drain in place. Continue nasogastric tube to suction for now. Current Visit: Yes Status: Acute Code(s): K81.0 - ACUTE CHOLECYSTITIS SNOMED Code(s): 77009182
[2021-09-18] MEDS ORDERED: CISATRACURIUM 2 MG/ML 5 ML VIAL IV ONE (13:01)
--- NOTE | 2021-09-18 14:21 | XR ---
EXAMINATION TYPE: XR chest 1V portable DATE OF EXAM: 09/18/2021 COMPARISON: Today HISTORY: Respiratory failure TECHNIQUE: FINDINGS: There is left jugular catheter with tip in the superior vena cava. There is some blunting o f the costophrenic angles. There is mild pulmonary congestion. The endotracheal tube is 6 cm from the zari. There is nasogastric tube in the stomach. IMPRESSION: There is some pleural reaction and atelectasis at the lung bases. There is clearing of th e pulmonary edema to a large extent compared to exam earlier today.
--- NOTE | 2021-09-18 15:49 | PCN ---
PROCEDURE NOTE TRIPLE LUMEN CATHETER PLACEMENT: Indication: Hemodynamic monitoring/Intravenous access. PREOP DIAGNOSIS: Administration of fluids and pressors. POSTOP DIAGNOSIS: Administration of fluids and pressors. There was informed consent. There was universal timeout. OPERATORS: Dr. Ulloa and Dr. Boone. A time-out was completed verifying correct patient, procedure, site, positioning, and implant(s) or special equipment if applicable. The patient was placed in a dependent position appropriate for triple lumen catheter placement based on the vein to be cannulated. The patient's left neck was prepped and draped in sterile fashion. 1% Lidocaine was used to anesthetize the surrounding skin area. A triple lumen 9F Cordis catheter was introduced into the internal jugular vein using Seldinger technique. The catheter was threaded smoothly over the guide wire and appropriate blood return was obtained. Each lumen of the catheter was evacuated of air and flushed with sterile saline. The catheter was then sutured in place to the skin and a sterile dressing applied. Perfusion to the extremity distal to the point of catheter insertion was checked and found to be adequate. We used the left internal jugular site. We went via posterior approach. There was good blood return from all 3 ports. The catheter was sutured in place. A sterile dressing was applied by the nurse. A chest x-ray was ordered to check placement. There was no immediate complication. The patient tolerated the procedure well. MMODL / IJN: [id number] /
--- NOTE | 2021-09-18 15:49 | PCN ---
PROCEDURE NOTE PULMONARY/CRITICAL CARE PROCEDURE NOTE: PROCEDURE: Right radial art line. PREOP DIAGNOSIS: Frequent blood draws and blood gas monitoring. POSTOP DIAGNOSIS: Frequent blood draws and blood gas monitoring. ACTING MANAGER: Dr. Ulloa and Dr. Boone. ARTERIAL LINE PLACEMENT: Indications: Hemodynamic monitoring. A time-out was completed verifying correct patient, procedure, site, positioning, and implant(s) or special equipment if applicable. Luisito's test was performed to ensure adequate perfusion. The patient's right wrist was prepped and draped in sterile fashion. 1% Lidocaine was used to anesthetize the area. An 18G Arrow arterial line was introduced into the radial artery. The catheter was threaded over the guide wire and the needle was removed with appropriate pulsatile blood return. Blood loss was minimal. The catheter was then sutured in place to the skin and a sterile dressing applied. Perfusion to the extremity distal to the point of catheter insertion was checked and found to be adequate. The patient tolerated the procedure well and there were no complications. There was informed consent and universal timeout. We used a right radial artery. There was no immediate complication. There was good blood return and waveform. The catheter was sutured in place. Sterile dressing was applied by the nurse. There was no immediate complication. The patient tolerated the procedure well without complication. MMODL / IJN: [id number] /
[2021-09-18] MEDS: NOREPINEPHRINE 32 MG in SODIUM CHLORIDE 0.9% 218 ML IV SCH (16:27)
[2021-09-18 17:29] LABS: Glucose,Whole Blood 199 mg/dL (75-99)
[2021-09-18] MEDS: GABAPENTIN 100 MG CAP PO SCH (20:51)
[2021-09-18] MEDS ORDERED: INSULIN ASPART (NovoLOG) 100 UNIT/ML VIAL SQ SCH (21:00)
[2021-09-19 00:17] LABS: Glucose,Whole Blood 209 mg/dL (75-99)
[2021-09-19] MEDS: INSULIN ASPART (NovoLOG) 100 UNIT/ML VIAL SQ SCH ×4 (00:20→18:22)
[2021-09-19] MEDS: IPRATROPIUM-ALBUTEROL 3 ML NEB INHALATION SCH ×7 (00:23→23:47)
--- NOTE | 2021-09-19 01:05 | P.PN ---
Subjective Progress Note Date: 09/17/21 Patient was seen for a follow-up. Patient underwent laparoscopic cholecystectomy. He required open cholecystectomy. Patient was not extubated, as the surgeon wanted the patient to get an extra day of rest. Currently on propofol 30 mcg/kg/m. Objective - Vital Signs Vital signs: Vital Signs Temp 98.9 F 09/18/21 20:00 Pulse 116 H 09/19/21 00:32 Resp 14 09/18/21 21:00 BP 126/78 09/18/21 13:30 Pulse Ox 96 09/18/21 21:00 Intake & Output 09/18/21 09/18/21 09/19/21 06:59 18:59 07:59 Intake Total 2633.000 2009.344 551.599 Output Total 140 1805 5 Balance 2493.000 204.344 546.599 Intake: IV 2025 925 325 Dextrose 5% in Water 1, 825 225 000 ml @ 75 mls/hr IV . [id number] ERINN with Sodium Bicarb (1 Meq/ml) 100 ml Rx#:[id number] Piperacillin-Tazobactam 3 125 100 100 .375 gm In Sodium Chloride 0.9% 100 ml @ 25 mls/hr IVPB Q12HR ERINN Rx #:[id number] Sodium Chloride 0.9% 1, 1900 000 ml @ 50 mls/hr IV . Q20H ERINN Rx#:[id number] Intake, IV Titration 608.000 784.344 226.599 Amount Norepinephrine 32 mg In 47.583 57.699 Sodium Chloride 0.9% 218 ml @ 0.05 MCG/KG/MIN 3. 047 mls/hr IV .Q24H ERINN Rx#:[id number] Norepinephrine 4 mg In 508.000 562.496 Sodium Chloride 0.9% 250 ml @ 0.05 MCG/KG/MIN 24. 765 mls/hr IV .[id number] ERINN Rx#:[id number] propofoL 1,000 mg In 100 174.265 168.9 Empty Bag 1 bag @ 5 MCG/ KG/MIN 3.9 mls/hr IV . Q24H ERINN Rx#:[id number] Hemodialysis 300 Output: Drainage 0 Right Abdomen 0 Urine 140 5 5 Hemodialysis 1800 Other: Voiding Method Indwelling Catheter Indwelling Catheter Indwelling Catheter ABP, PAP, CO, CI - Last Documented Arterial Blood Pressure 128/53 - Exam Exam limited because patient is sedated. Pupils are equal round and reacting. - Labs CBC & Chem 7: 09/18/21 07:56 09/18/21 05:51 Labs: Abnormal Lab Results - Last 24 Hours (Table) 09/18/21 09/18/21 09/18/21 Range/Units 05:29 05:51 07:56 WBC 11.8 H (3.8-10.6) k/uL RBC 2.95 L (4.30-5.90) m/uL Hgb 8.2 L (13.0-17.5) gm/dL Hct 28.5 L (39.0-53.0) % MCHC 28.7 L (31.0-37.0) g/dL RDW 17.5 H (11.5-15.5) % Plt Count 513 H (150-450) k/uL Neutrophils # (Manual) 10.30 H (1.3-7.7) k/uL Lymphocytes # (Manual) 0.71 L (1.0-4.8) k/uL Metamyelocytes # (Man) 0.24 H (0) k/uL Myelocytes # (Manual) 0.12 H (0) k/uL ABG pH 7.13 L* (7.35-7.45) ABG pO2 127 H (83-108) mmHg ABG HCO3 14 L (21-25) mmol/L ABG Total CO2 16 L (19-24) mmol/L ABG O2 Saturation 98.1 H (94-97) % Potassium 5.9 H (3.5-5.1) mmol/L Chloride 110 H (98-107) mmol/L Carbon Dioxide 10 L (22-30) mmol/L BUN 49 H (9-20) mg/dL Creatinine 5.79 H (0.66-1.25) mg/dL Glucose 148 H (74-99) mg/dL POC Glucose (mg/dL) (75-99) mg/dL Calcium 8.1 L (8.4-10.2) mg/dL AST 79 H (17-59) U/L Alkaline Phosphatase 135 H (38-126) U/L Total Protein 5.2 L (6.3-8.2) g/dL Albumin 2.3 L (3.5-5.0) g/dL 09/18/21 09/18/21 09/19/21 Range/Units 11:53 17:28 00:15 WBC (3.8-10.6) k/uL RBC (4.30-5.90) m/uL Hgb (13.0-17.5) gm/dL Hct (39.0-53.0) % MCHC (31.0-37.0) g/dL RDW (11.5-15.5) % Plt Count (150-450) k/uL Neutrophils # (Manual) (1.3-7.7) k/uL Lymphocytes # (Manual) (1.0-4.8) k/uL Metamyelocytes # (Man) (0) k/uL Myelocytes # (Manual) (0) k/uL ABG pH (7.35-7.45) ABG pO2 (83-108) mmHg ABG HCO3 (21-25) mmol/L ABG Total CO2 (19-24) mmol/L ABG O2 Saturation (94-97) % Potassium (3.5-5.1) mmol/L Chloride (98-107) mmol/L Carbon Dioxide (22-30) mmol/L BUN (9-20) mg/dL Creatinine (0.66-1.25) mg/dL Glucose (74-99) mg/dL POC Glucose (mg/dL) 159 H 199 H 209 H (75-99) mg/dL Calcium (8.4-10.2) mg/dL AST (17-59) U/L Alkaline Phosphatase (38-126) U/L Total Protein (6.3-8.2) g/dL Albumin (3.5-5.0) g/dL Microbiology - Last 24 Hours (Table) 09/12/21 10:29 Blood Culture - Final Blood No Growth after 144 hours 09/12/21 10:28 Blood Culture - Final Blood No Growth after 144 hours Assessment and Plan Assessment: * Altered mental status, most likely due to toxic metabolic encephalopathy. * Acute kidney injury, started on dialysis on 09/11/2021 * Recent history of hypotension leading to acute kidney injury * Status post cholecystectomy. * Generalized weakness most likely related to critical illness neuropathy/myopathy. * Anemia * Morbid obesity, BMI 41.8 * History of respiratory failure on mechanical ventilator. * Diabetes type 2 * Hyperlipidemia * Hypertension * COPD Plan: * CT head showed no acute process. There is improvement in the ethmoid and sphenoid sinusitis compared to old exam. There is bilateral chronic mastoiditis similar to old exam. There is significant clearing of the opacification of the middle ear cavity compared to the last exam. I personally reviewed computed tomography scan of the head and agree with the findings. Slight prominence of the ventricles as compared to the amount of cortical atrophy. * Treatment of medical conditions as per IM and other specialties * Await thiamine, B6 levels. * It appears patient's renal function is deteriorating with creatinine going up, may be the cause of worsening mentation. Hemodialysis hopefully will help. * Avoid any sedatives, hypnotics or narcotics. * Patient on SCDs for DVT prophylaxis. * Neurology will follow sporadically. Dr. Villagomez will be rounding over the weekend, and Dr. Florencio Ulloa Will resume neurology service on Monday.
[2021-09-19 04:45] LABS: Anisocytosis Slight; Basophils # (A) 0.1 k/uL (0-0.2); Basophils % (A) 1 %; Eosinophils # (A) 0.1 k/uL (0-0.7); Eosinophils % (A) 1 %; Hypochromasia Moderate; Lymphocytes # (A) 1.3 k/uL (1.0-4.8); Lymphocytes % (A) 12 %; MCH 27.7 pg (25.0-35.0); MCHC 30.9 g/dL (31.0-37.0); MCV 89.6 fL (80.0-100.0); Mean Platelet Volume 8.1; Monocytes # (A) 0.5 k/uL (0-1.0); Monocytes % (A) 4 %; Neutrophils # (A) 8.6 k/uL (1.3-7.7); Neutrophils % (A) 81 %; Platelet Count 410 k/uL (150-450); RBC 2.15 m/uL (4.30-5.90); RDW 17.6 % (11.5-15.5); WBC 10.6 k/uL (3.8-10.6)
[2021-09-19] MEDS: NOREPINEPHRINE 32 MG in SODIUM CHLORIDE 0.9% 218 ML IV SCH (04:56)
[2021-09-19 05:12] LABS: Calcium 7.4 mg/dL (8.4-10.2); Potassium 3.1 mmol/L (3.5-5.1)
[2021-09-19 05:47] LABS: HCT 19.3 % (39.0-53.0)
[2021-09-19 06:00] LABS: ABG Base Excess -2.5 mmol/L; ABG HCO3 24 mmol/L (21-25); ABG Oxygen Saturation 97.5 % (94-97); ABG PCO2 48 mmHg (35-45); ABG PH 7.31 (7.35-7.45); ABG PO2 95 mmHg (83-108); ABG TCO2 25 mmol/L (19-24); Allen Test Performed? Yes
[2021-09-19] MEDS ORDERED: Potassium Replacement Protocol 1 EACH MISC MISCELLANE PRN (06:22)
--- NOTE | 2021-09-19 06:38 | XR ---
EXAMINATION TYPE: XR chest 1V portable DATE OF EXAM: 09/19/2021 COMPARISON: 09/18/2021 HISTORY: Line placement TECHNIQUE: Single frontal view of the chest is obtained. FINDINGS: ET tube 5.3 cm above the zari. No change in the left central venous catheter or NG tube. No change in the retrocardiac opacity likely combination of pleural fluid and atelectasis. No change in the mild pulmonary vascular congestion. There is no pneumothorax there is no appreciable right-sided pleural effusion. The osseous structures are intact. IMPRESSION: ET tube 5.3 cm above the zari. No change in the acute cardiopulmonary disease as descr ibed.
[2021-09-19 06:42] LABS: Glucose,Whole Blood 164 mg/dL (75-99)
[2021-09-19] MEDS: POTASSIUM CHLORIDE 20 MEQ in WATER FOR INJECTION 1 100ML.BAG IVPB SCH ×3 (07:14→23:01)
[2021-09-19] MEDS: CHLORHEXIDINE GLUCONATE 15 ML CUP MUCOUS MEM SCH ×2 (08:38→21:39)
[2021-09-19] MEDS: PANTOPRAZOLE 40 MG/10 ML VIAL IVP SCH (08:38)
[2021-09-19] MEDS: ENOXAPARIN 30 MG/0.3 ML SYRINGE SQ SCH (08:38)
[2021-09-19] MEDS: PIPERACILLIN-TAZOBACTAM 3.375 GM in SODIUM CHLORIDE 0.9% 100 ML IVPB SCH ×2 (08:38→21:39)
--- NOTE | 2021-09-19 09:07 | P.PN ---
Subjective Progress Note Date: 09/19/21 Principal diagnosis: Status post open cholecystectomy. On 09/13/2021 patient seen in follow-up in the intensive care unit. He is awake and alert, in no acute distress, he is resting comfortably in bed, denies any dyspnea. Room air pulse ox is 94%, patient is having hemodialysis treatment. He did wear CPAP support last night. Patient remains on empiric antibiotics with doxycycline and Zosyn. Patient continues to have low-grade fevers and a T- max in the last 24 hours was 101.6F at 8:00 in the morning yesterday. No cough, no chest discomfort, no hemoptysis. Hemodynamically stable, he is receiving IV fluids normal saline at a rate of 75 ML per hour. Breathing is non labored, comfortable. His chest x-ray on 09/11/2021 showed mild blunting of the left costophrenic angle, clear right lung. Today's labs have been reviewed with blood cell count is 7.6, hemoglobin is 11.3, platelet count is 194, sodium is 132, the rest of electrolytes were within normal limits, BUN is 47, creatinine is 3.22. Patient is not requiring any vasopressor support, echocardiogram has been completed showing moderate concentric LVH, EF of 55-60%, and severe enlargement of the right ventricle. On 09/14/2021 patient seen in follow-up on selective care unit, he is resting in bed, breathing comfortably, lung sounds are essentially clear to auscultation, no rhonchi no wheezing, denies any cough, no phlegm production or chest discomfort. She did wear his CPAP device at night. At the on room air pulse ox is 95%, he was dialyzed yesterday and 900 mL of fluid was removed with hemodial ysis. No plans for hemodialysis today according to the patient. Today's labs have been reviewed, sodium is 135, the rest of electrolytes are within normal limits, BUN is 39, creatinine is 3.31. 4 sets of blood cultures have shown no growth thus far since admission. Unclear the source of possible infection, patient remains on antibiotics for empiric antibiotic coverage, as patient for pneumonia is low On 09/16/2021 patient seen in follow-up on medical surgical floor, he is resting in bed, does not appear to be in any acute distress, he is currently it is of oxygen, he is satting 96%, at night he is been wearing his CPAP device from home. Denies any worsening dyspnea, no complaints of chest discomfort, still has some mild generalized edema. Today's labs have been reviewed, white blood cell count is 8.9, hemoglobin is 11.7, sodium is 138, potassium is 4.2, chloride is 107, CO2 is 15, B1 is 35, creatinine is 4.09. Nephrology is following, and had hemodialysis treatment yesterday with removal 1.3 L of fluid. Appetite is fair, no nausea or vomiting, however patient is incontinent of liquid brown stool. Patient has had no fever or chills, his blood cultures have been negative, as of dyspnea or cough, no phlegm production, breathing comfortably, lung sounds are clear. His last chest x-ray was on 09/14/2021 grossly unremarkable lungs. On 09/17/2021 patient seen in follow-up in the recovery room. This morning patient was taken to surgery for cholecystectomy and he was found to have acute gangrenous cholecystitis with transmural necrosis of gallbladder wall. Following the procedure patient is still intubated and sedated in the recovery room, on assist control mode of ventilation with a rate of 12, tidal volume is 450, FiO2 of 100% and PEEP of 5. His peak air pressure is 28, plateau is 21, he is resting comfortably on a gurney in the recovery room, still sedated, Diprivan will be started, 0.9 normal saline at a rate of 75 ML per hour, his postoperative blood gas and chest x-ray are pending. This morning's labs have been reviewed, white blood cell count was 8.8, hemoglobin was 10.9, sodium is 136, potassium 3.8, BUN was 44, creatinine is 5.05, postoperative labs are pending. Patient continues on Zosyn for antibiotic coverage. Surgical incision is clean dry and intact, abdominal binder is in place, NG tube is in place to low intermittent suction. Progress note dated 09/18/2021. Yesterday, the patient was seen in the recovery room with the nurse parker del cid. The patient's postop day #1, status post open cholecystectomy. The patient initially was a laparoscopic cholecystectomy. The patient is still on the mechanical ventilator. He is on the volume assist control mode, rate 12, tidal volume 450, FiO2 40%, PEEP of 5. Blood gases show pO2 of 127, pCO2 42, and pH is 7.13. The patient's getting D5 W with 2 ampules of sodium bicarbonate at 75 mL an hour, propofol at 30 mcg/kg/m and norepinephrine at 26 mcg/m. I did ask the nurse to draw a stat random cortisol level. The patient is currently on Zosyn. We'll attempt a daily interruption of sedation and a spontaneous breathing trial with a PSV of 5, and CPAP of 5. Microbiology is thus far negative. He's having hemodialysis today. The goal is to room 2 L. White count 11.8, heme him 8.2, hematocrit 28.5, and platelet count 513,000. Sodium 139, potassium 5.9, chlorides 110, CO2 10, anion gap is 19, BUN 49, creatinine 5.79. Albumin is 2.3. Chest x-rays consistent with mild pulmonary vascular congestion. Progress note dated 09/19/2021. This is a 61-year-old male who is postop day #2, status post open cholecystectomy for a gangrenous gallbladder. The patient came back from the operating room, on the ventilator. He remains on the ventilator. Yesterday, we placed a right radial art line and a left internal jugular triple-lumen catheter. She did receive hemodialysis yesterday, and will receive hemodialysis today. He is on volume assist control, rate 12, tidal volume 450, FiO2 30% PEEP of 5. Blood gases show pO2 of 95, pCO2 48, and pH is 7.31. The patient's on pr opofol at 50 mcg/kg/m, norepinephrine at 23 mcg/m, D5W with 2 ampules of sodium bicarbonate at 75 mL an hour, and saline at 10 mL an hour. White count 10.6, hemoglobin 6, hematocrit 19.3, platelet count 410,000. Sodium 135, potassium 3.1, chlorides 103, CO2 21, anion gap 11, BUN 31, creatinine 3.96. Microbiologic studies are negative. Chest x-ray shows some mild fluid overload. Objective - Vital Signs Vital signs: Vital Signs Temp 98.6 F 09/19/21 08:30 Pulse 114 H 09/19/21 08:30 Resp 16 09/19/21 08:30 BP 138/53 09/19/21 08:30 Pulse Ox 98 09/19/21 08:30 Intake & Output 09/18/21 09/19/21 09/19/21 17:59 06:59 18:59 Intake Total 301.768 Output Total 0 Balance 301.768 Intake: IV 250 Dextrose 5% in Water 1, 150 000 ml @ 75 mls/hr IV . [id number] ERINN with Sodium Bicarb (1 Meq/ml) 100 ml Rx#:[id number] Piperacillin-Tazobactam 3 .375 gm In Sodium Chloride 0.9% 100 ml @ 25 mls/hr IVPB Q12HR ERINN Rx #:[id number] Potassium Chloride 20 meq 100 In Water For Injection 1 100ml.bag @ 50 mls/hr IVPB Q2H ERINN Rx#: [id number] Sodium Chloride 0.9% 1, 000 ml @ 50 mls/hr IV . Q20H ERINN Rx#:[id number] Intake, IV Titration 51.768 Amount Norepinephrine 32 mg In 51.768 Sodium Chloride 0.9% 218 ml @ 0.05 MCG/KG/MIN 3. 047 mls/hr IV .Q24H ERINN Rx#:[id number] Norepinephrine 4 mg In Sodium Chloride 0.9% 250 ml @ 0.05 MCG/KG/MIN 24. 765 mls/hr IV .[id number] ERINN Rx#:[id number] propofoL 1,000 mg In Empty Bag 1 bag @ 5 MCG/ KG/MIN 3.9 mls/hr IV . Q24H ERINN Rx#:[id number] Blood Product 0 Rc As-1 Unit 0 [id number] Hemodialysis Output: Gastric Drainage Drainage Right Abdomen Urine 0 Hemodialysis Other: Voiding Method ABP, PAP, CO, CI - Last Documented Arterial Blood Pressure 132/51 - Exam No acute distress, sedated, with an orally placed endotracheal tube and NG tube. HEENT examination is grossly unremarkable. Neck supple. Full range of motion. No adenopathy thyromegaly or neck vein distention. Cardiovascular examination reveals regular rhythm rate. S1-S2 normal. No S3 or S4. No discernible murmur noted. Heart rate 114 bpm. Heart sounds are distant. Lungs reveal scattered bilateral rhonchi. No wheezes or crackles. Breath sounds equal bilaterally. Saturations are 98%. Abdomen soft, without bowel sounds. Extremities are intact. No cyanosis clubbing or edema. Skin is without rash or lesion. Neurologic examination cannot be assessed as the patient's currently sedated. - Labs CBC & Chem 7: 09/19/21 04:05 09/19/21 04:05 Labs: Abnormal Lab Results - Last 24 Hours (Table) 09/18/21 09/18/21 09/18/21 Range/Units 07:56 11:53 17:28 WBC 11.8 H (3.8-10.6) k/uL RBC 2.95 L (4.30-5.90) m/uL Hgb 8.2 L (13.0-17.5) gm/dL Hct 28.5 L (39.0-53.0) % MCHC 28.7 L (31.0-37.0) g/dL RDW 17.5 H (11.5-15.5) % Plt Count 513 H (150-450) k/uL Neutrophils # (1.3-7.7) k/uL Neutrophils # (Manual) 10.30 H (1.3-7.7) k/uL Lymphocytes # (Manual) 0.71 L (1.0-4.8) k/uL Metamyelocytes # (Man) 0.24 H (0) k/uL Myelocytes # (Manual) 0.12 H (0) k/uL ABG pH (7.35-7.45) ABG pCO2 (35-45) mmHg ABG Total CO2 (19-24) mmol/L ABG O2 Saturation (94-97) % Sodium (137-145) mmol/L Potassium (3.5-5.1) mmol/L Carbon Dioxide (22-30) mmol/L BUN (9-20) mg/dL Creatinine (0.66-1.25) mg/dL Glucose (74-99) mg/dL POC Glucose (mg/dL) 159 H 199 H (75-99) mg/dL Calcium (8.4-10.2) mg/dL Crossmatch 09/19/21 09/19/21 09/19/21 Range/Units 00:15 04:05 04:05 WBC (3.8-10.6) k/uL RBC 2.15 L (4.30-5.90) m/uL Hgb 6.0 L* D (13.0-17.5) gm/dL Hct 19.3 L* (39.0-53.0) % MCHC 30.9 L (31.0-37.0) g/dL RDW 17.6 H (11.5-15.5) % Plt Count (150-450) k/uL Neutrophils # 8.6 H (1.3-7.7) k/uL Neutrophils # (Manual) (1.3-7.7) k/uL Lymphocytes # (Manual) (1.0-4.8) k/uL Metamyelocytes # (Man) (0) k/uL Myelocytes # (Manual) (0) k/uL ABG pH (7.35-7.45) ABG pCO2 (35-45) mmHg ABG Total CO2 (19-24) mmol/L ABG O2 Saturation (94-97) % Sodium 135 L (137-145) mmol/L Potassium 3.1 L (3.5-5.1) mmol/L Carbon Dioxide 21 L (22-30) mmol/L BUN 31 H (9-20) mg/dL Creatinine 3.96 H (0.66-1.25) mg/dL Glucose 170 H (74-99) mg/dL POC Glucose (mg/dL) 209 H (75-99) mg/dL Calcium 7.4 L (8.4-10.2) mg/dL Crossmatch 09/19/21 09/19/21 09/19/21 Range/Units 05:55 06:10 06:41 WBC (3.8-10.6) k/uL RBC (4.30-5.90) m/uL Hgb (13.0-17.5) gm/dL Hct (39.0-53.0) % MCHC (31.0-37.0) g/dL RDW (11.5-15.5) % Plt Count (150-450) k/uL Neutrophils # (1.3-7.7) k/uL Neutrophils # (Manual) (1.3-7.7) k/uL Lymphocytes # (Manual) (1.0-4.8) k/uL Metamyelocytes # (Man) (0) k/uL Myelocytes # (Manual) (0) k/uL ABG pH 7.31 L (7.35-7.45) ABG pCO2 48 H (35-45) mmHg ABG Total CO2 25 H (19-24) mmol/L ABG O2 Saturation 97.5 H (94-97) % Sodium (137-145) mmol/L Potassium (3.5-5.1) mmol/L Carbon Dioxide (22-30) mmol/L BUN (9-20) mg/dL Creatinine (0.66-1.25) mg/dL Glucose (74-99) mg/dL POC Glucose (mg/dL) 164 H (75-99) mg/dL Calcium (8.4-10.2) mg/dL Crossmatch See Detail Microbiology - Last 24 Hours (Table) 09/12/21 10:29 Blood Culture - Final Blood No Growth after 144 hours 09/12/21 10:28 Blood Culture - Final Blood No Growth after 144 hours Assessment and Plan Assessment: Acute gangrenous cholecystitis, status post cholecystectomy, 09/17/2021, postop day #2. Routine postoperative ventilator management, status post initial intubation on September 17. Acute kidney injury, currently on hemodialysis. Metabolic acidosis, secondary to kidney injury. Morbid obesity, with a BMI of 41.8. Hypotension, related to sepsis. Acute hypoxemic respiratory failure. History of chronic bronchial asthma. Type 2 diabetes. History of hyperlipidemia. History of hypertension. History of sleep apnea syndrome. History of BPH. Plan: Plan dated 09/18/2021. Currently, the patient seems to be reasonably stable other than his hypotension. The patient's currently on norepinephrine at 26 mcg/m. The patient will have a random stat cortisol done. The patient may be exhibiting some adrenal insufficiency. He may then over from hydrocortisone administration. He remains on Zosyn. Microbiologic studies are negative. The patient is getting hemodialysis today. The goal is to remove 2 L. I did start the patient on some D5W, with 2 ampules of sodium bicarbonate at 75 mL an hour for his metabolic acidosis. Some of that may improve with dialysis. Today's postop day #1. Prognosis is guarded. We will continue to follow and make recommendations where appropriate. Plan dated 09/19/2021. The patient has improved. His acidosis is primarily respiratory. I will discontinue the sodium bicarbonate drip. The patient will have hemodialysis today. We will do a daily interruption of sedation. The patient should be started on tube feedings. He only had a gallbladder surgery. We'll wait for surgery and ask them. Additional recommendations and suggestions are forthcoming. He remains on Zosyn. Labs, x-rays, medications are reviewed. Prognosis is guarded. Routine follow patient and make recommendations where appropriate. Time with Patient: Greater than 30
--- NOTE | 2021-09-19 11:46 | P.PN ---
Subjective Progress Note Date: 09/19/21 Principal diagnosis: Gangrenous cholecystitis Patient remains on the ventilator. Hemoglobin did drop from 8.2 yesterday to 6.0 today. Patient is being transfused blood this morning. He apparently did have a small amount of oozing from his incision after we ligated the 2 active bleeding sites. The amount has been small. GRETCHEN drain is serosanguineous. White blood cell count is normal. Objective - Vital Signs Vital signs: Vital Signs Temp 98.8 F 09/19/21 10:15 Pulse 108 H 09/19/21 11:33 Resp 17 09/19/21 11:00 BP 114/46 09/19/21 10:15 Pulse Ox 97 09/19/21 11:00 Intake & Output 09/18/21 09/19/21 09/19/21 17:59 06:59 18:59 Intake Total 1346.768 Output Total 0 Balance 1346.768 Intake: IV 575 Dextrose 5% in Water 1, 375 000 ml @ 75 mls/hr IV . [id number] ERINN with Sodium Bicarb (1 Meq/ml) 100 ml Rx#:[id number] Piperacillin-Tazobactam 3 100 .375 gm In Sodium Chloride 0.9% 100 ml @ 25 mls/hr IVPB Q12HR ERINN Rx #:[id number] Potassium Chloride 20 meq 100 In Water For Injection 1 100ml.bag @ 50 mls/hr IVPB Q2H ERINN Rx#: [id number] Sodium Chloride 0.9% 1, 000 ml @ 50 mls/hr IV . Q20H ERINN Rx#:[id number] Intake, IV Titration 151.768 Amount Norepinephrine 32 mg In 51.768 Sodium Chloride 0.9% 218 ml @ 0.05 MCG/KG/MIN 3. 047 mls/hr IV .Q24H ERINN Rx#:[id number] Norepinephrine 4 mg In Sodium Chloride 0.9% 250 ml @ 0.05 MCG/KG/MIN 24. 765 mls/hr IV .[id number] ERINN Rx#:[id number] propofoL 1,000 mg In 100 Empty Bag 1 bag @ 5 MCG/ KG/MIN 3.9 mls/hr IV . Q24H ERINN Rx#:[id number] Blood Product 620 Rc As-1 Unit 310 [id number] Hemodialysis Output: Gastric Drainage Drainage Right Abdomen Urine 0 Hemodialysis Other: Voiding Method Indwelling Catheter ABP, PAP, CO, CI - Last Documented Arterial Blood Pressure 127/55 - Exam Abdomen: Soft, mild distention, incision without active bleeding, mild tendern ess. - Labs CBC & Chem 7: 09/19/21 04:05 09/19/21 04:05 Labs: Abnormal Lab Results - Last 24 Hours (Table) 09/18/21 09/18/21 09/18/21 Range/Units 07:56 11:53 17:28 RBC (4.30-5.90) m/uL Hgb (13.0-17.5) gm/dL Hct (39.0-53.0) % MCHC (31.0-37.0) g/dL RDW (11.5-15.5) % Neutrophils # (1.3-7.7) k/uL Neutrophils # (Manual) 10.30 H (1.3-7.7) k/uL Lymphocytes # (Manual) 0.71 L (1.0-4.8) k/uL Metamyelocytes # (Man) 0.24 H (0) k/uL Myelocytes # (Manual) 0.12 H (0) k/uL ABG pH (7.35-7.45) ABG pCO2 (35-45) mmHg ABG Total CO2 (19-24) mmol/L ABG O2 Saturation (94-97) % Sodium (137-145) mmol/L Potassium (3.5-5.1) mmol/L Carbon Dioxide (22-30) mmol/L BUN (9-20) mg/dL Creatinine (0.66-1.25) mg/dL Glucose (74-99) mg/dL POC Glucose (mg/dL) 159 H 199 H (75-99) mg/dL Calcium (8.4-10.2) mg/dL Crossmatch 09/19/21 09/19/21 09/19/21 Range/Units 00:15 04:05 04:05 RBC 2.15 L (4.30-5.90) m/uL Hgb 6.0 L* D (13.0-17.5) gm/dL Hct 19.3 L* (39.0-53.0) % MCHC 30.9 L (31.0-37.0) g/dL RDW 17.6 H (11.5-15.5) % Neutrophils # 8.6 H (1.3-7.7) k/uL Neutrophils # (Manual) (1.3-7.7) k/uL Lymphocytes # (Manual) (1.0-4.8) k/uL Metamyelocytes # (Man) (0) k/uL Myelocytes # (Manual) (0) k/uL ABG pH (7.35-7.45) ABG pCO2 (35-45) mmHg ABG Total CO2 (19-24) mmol/L ABG O2 Saturation (94-97) % Sodium 135 L (137-145) mmol/L Potassium 3.1 L (3.5-5.1) mmol/L Carbon Dioxide 21 L (22-30) mmol/L BUN 31 H (9-20) mg/dL Creatinine 3.96 H (0.66-1.25) mg/dL Glucose 170 H (74-99) mg/dL POC Glucose (mg/dL) 209 H (75-99) mg/dL Calcium 7.4 L (8.4-10.2) mg/dL Crossmatch 09/19/21 09/19/21 09/19/21 Range/Units 05:55 06:10 06:41 RBC (4.30-5.90) m/uL Hgb (13.0-17.5) gm/dL Hct (39.0-53.0) % MCHC (31.0-37.0) g/dL RDW (11.5-15.5) % Neutrophils # (1.3-7.7) k/uL Neutrophils # (Manual) (1.3-7.7) k/uL Lymphocytes # (Manual) (1.0-4.8) k/uL Metamyelocytes # (Man) (0) k/uL Myelocytes # (Manual) (0) k/uL ABG pH 7.31 L (7.35-7.45) ABG pCO2 48 H (35-45) mmHg ABG Total CO2 25 H (19-24) mmol/L ABG O2 Saturation 97.5 H (94-97) % Sodium (137-145) mmol/L Potassium (3.5-5.1) mmol/L Carbon Dioxide (22-30) mmol/L BUN (9-20) mg/dL Creatinine (0.66-1.25) mg/dL Glucose (74-99) mg/dL POC Glucose (mg/dL) 164 H (75-99) mg/dL Calcium (8.4-10.2) mg/dL Crossmatch See Detail Microbiology - Last 24 Hours (Table) 09/12/21 10:29 Blood Culture - Final Blood No Growth after 144 hours 09/12/21 10:28 Blood Culture - Final Blood No Growth after 144 hours Assessment and Plan (1) Acute gangrenous cholecystitis Narrative/Plan: Continue ICU supportive care. Wean ventilator as tolerated. Continue antibiotics. Recheck labs after transfusion. May begin slow rate tube feeds. Current Visit: Yes Status: Acute Code(s): K81.0 - ACUTE CHOLECYSTITIS SNOMED Code(s): 93974360
[2021-09-19] MEDS: DEXTROSE 5% IN WATER 1,000 ML with SODIUM BICARB (1 MEQ/ML) 100 ML IV SCH (12:28)
[2021-09-19 12:37] LABS: Glucose,Whole Blood 141 mg/dL (75-99)
--- NOTE | 2021-09-19 13:10 | P.PN ---
Subjective Patient is seen for follow-up for acute kidney injury and hyperkalemia. He was significantly hypotensive on initial admission. Serum creatinine had peaked at 3.7 mg/dL but due to the potassium staying elevated at 7.3 patient was dialyzed . Urine output had improved and dialysis was held to monitor for possible recovery of renal function but urine output remained low and therefore patient has been maintained on dialysis. Patient was taken to OR on 09/17/21 and had open cholecystectomy. He was found to have acute gangrenous cholecystitis and necrosis of the gallbladder wall. Postoperatively patient has been transferred to the ICU. He remains intubated. Poor urine output Patient was hypotensive requiring levo fed and severely acidotic. He was started on bicarb drip yesterday and dialyzed as well. Metabolic acidosis is now improved and patient is currently off of pressors. He is scheduled for hemodialysis again today. Hemoglobin 6.0. To receive 1 unit packed RBCs Objective - Vital Signs Vital signs: Vital Signs Temp 98.8 F 09/19/21 12:00 Pulse 123 H 09/19/21 12:00 Resp 21 09/19/21 12:00 BP 114/46 09/19/21 10:15 Pulse Ox 97 09/19/21 12:00 Intake & Output 09/18/21 09/19/21 09/19/21 17:59 06:59 18:59 Intake Total 1521.768 Output Total 0 Balance 1521.768 Intake: IV 650 Dextrose 5% in Water 1, 450 000 ml @ 75 mls/hr IV . [id number] ERINN with Sodium Bicarb (1 Meq/ml) 100 ml Rx#:[id number] Piperacillin-Tazobactam 3 100 .375 gm In Sodium Chloride 0.9% 100 ml @ 25 mls/hr IVPB Q12HR ERINN Rx #:[id number] Potassium Chloride 20 meq 100 In Water For Injection 1 100ml.bag @ 50 mls/hr IVPB Q2H ERINN Rx#: [id number] Sodium Chloride 0.9% 1, 000 ml @ 50 mls/hr IV . Q20H REPLACED BY [facility] Rx#:[id number] Intake, IV Titration 251.768 Amount Norepinephrine 32 mg In 51.768 Sodium Chloride 0.9% 218 ml @ 0.05 MCG/KG/MIN 3. 047 mls/hr IV .Q24H ERINN Rx#:[id number] Norepinephrine 4 mg In Sodium Chloride 0.9% 250 ml @ 0.05 MCG/KG/MIN 24. 765 mls/hr IV .[id number] ERINN Rx#:[id number] propofoL 1,000 mg In 200 Empty Bag 1 bag @ 5 MCG/ KG/MIN 3.9 mls/hr IV . Q24H ERINN Rx#:[id number] Blood Product 620 Rc As-1 Unit 310 [id number] Hemodialysis Output: Gastric Drainage Drainage Right Abdomen Urine 0 Hemodialysis Other: Voiding Method Indwelling Catheter ABP, PAP, CO, CI - Last Documented Arterial Blood Pressure 110/47 - Exam Patient is sedated. He is currently on the vent. Examination of the heart S1 and S2 Examination lungs bilateral breath sounds are heard Abdomen is soft obese nontender Examination lower extremities shows 1+ edema [employer] exam cannot be performed - Labs CBC & Chem 7: 09/19/21 04:05 09/19/21 04:05 Labs: Abnormal Lab Results - Last 24 Hours (Table) 09/18/21 09/19/21 09/19/21 Range/Units 17:28 00:15 04:05 RBC 2.15 L (4.30-5.90) m/uL Hgb 6.0 L* D (13.0-17.5) gm/dL Hct 19.3 L* (39.0-53.0) % MCHC 30.9 L (31.0-37.0) g/dL RDW 17.6 H (11.5-15.5) % Neutrophils # 8.6 H (1.3-7.7) k/uL ABG pH (7.35-7.45) ABG pCO2 (35-45) mmHg ABG Total CO2 (19-24) mmol/L ABG O2 Saturation (94-97) % Sodium (137-145) mmol/L Potassium (3.5-5.1) mmol/L Carbon Dioxide (22-30) mmol/L BUN (9-20) mg/dL Creatinine (0.66-1.25) mg/dL Glucose (74-99) mg/dL POC Glucose (mg/dL) 199 H 209 H (75-99) mg/dL Calcium (8.4-10.2) mg/dL Crossmatch 09/19/21 09/19/21 09/19/21 Range/Units 04:05 05:55 06:10 RBC (4.30-5.90) m/uL Hgb (13.0-17.5) gm/dL Hct (39.0-53.0) % MCHC (31.0-37.0) g/dL RDW (11.5-15.5) % Neutrophils # (1.3-7.7) k/uL ABG pH 7.31 L (7.35-7.45) ABG pCO2 48 H (35-45) mmHg ABG Total CO2 25 H (19-24) mmol/L ABG O2 Saturation 97.5 H (94-97) % Sodium 135 L (137-145) mmol/L Potassium 3.1 L (3.5-5.1) mmol/L Carbon Dioxide 21 L (22-30) mmol/L BUN 31 H (9-20) mg/dL Creatinine 3.96 H (0.66-1.25) mg/dL Glucose 170 H (74-99) mg/dL POC Glucose (mg/dL) (75-99) mg/dL Calcium 7.4 L (8.4-10.2) mg/dL Crossmatch See Detail 09/19/21 09/19/21 Range/Units 06:41 12:35 RBC (4.30-5.90) m/uL Hgb (13.0-17.5) gm/dL Hct (39.0-53.0) % MCHC (31.0-37.0) g/dL RDW (11.5-15.5) % Neutrophils # (1.3-7.7) k/uL ABG pH (7.35-7.45) ABG pCO2 (35-45) mmHg ABG Total CO2 (19-24) mmol/L ABG O2 Saturation (94-97) % Sodium (137-145) mmol/L Potassium (3.5-5.1) mmol/L Carbon Dioxide (22-30) mmol/L BUN (9-20) mg/dL Creatinine (0.66-1.25) mg/dL Glucose (74-99) mg/dL POC Glucose (mg/dL) 164 H 141 H (75-99) mg/dL Calcium (8.4-10.2) mg/dL Crossmatch Microbiology - Last 24 Hours (Table) 09/12/21 10:29 Blood Culture - Final Blood No Growth after 144 hours 09/12/21 10:28 Blood Culture - Final Blood No Growth after 144 hours Assessment and Plan Assessment: 1. Hyperkalemia associated with acute kidney injury use of JENSEN inhibitor's prior to admission currently improved. 2. Acute kidney injury secondary to ATN from hypotension previous creatinine 0.7 on 08/10/2021. Started dialysis on 09/12/2021 for severe hyperkalemia. Urine output is poor postoperatively. Patient is maintained on dialysis. 3. Metabolic acidosis associated with acute kidney injury and recent shock and hypotension. 4. Acute cholecystitis with gangrenous bladder status post open cholecystectomy on 09/17/2021 5. Acute hypoxic respiratory failure, Currently on the vent Plan: Hemodialysis today Repeat in a.m. Adjust bicarb on the machine Continue with IV bicarb. Repeat potassium and replace cautiously.
[2021-09-19 18:15] LABS: Glucose,Whole Blood 153 mg/dL (75-99)
[2021-09-19] MEDS: GABAPENTIN 100 MG CAP PO SCH (21:39)
[2021-09-19 21:57] LABS: Anisocytosis Slight; Basophils % (A) 1 %; Eosinophils # (A) 0.1 k/uL (0-0.7); Eosinophils % (A) 2 %; Hypochromasia Slight; Lymphocytes % (A) 11 %; MCH 29.4 pg (25.0-35.0); MCHC 33.2 g/dL (31.0-37.0); MCV 88.7 fL (80.0-100.0); Mean Platelet Volume 7.2; Monocytes # (A) 0.3 k/uL (0-1.0); Monocytes % (A) 4 %; Neutrophils # (A) 7.4 k/uL (1.3-7.7); Neutrophils % (A) 81 %; Platelet Count 344 k/uL (150-450); Poikilocytosis Slight; RBC 2.01 m/uL (4.30-5.90); RDW 17.1 % (11.5-15.5); WBC 9.1 k/uL (3.8-10.6)
[2021-09-19 22:03] LABS: HCT 17.8 % (39.0-53.0); HGB 5.9 gm/dL (13.0-17.5)
[2021-09-20 00:10] LABS: Glucose,Whole Blood 152 mg/dL (75-99)
[2021-09-20] MEDS: INSULIN ASPART (NovoLOG) 100 UNIT/ML VIAL SQ SCH ×4 (00:35→17:44)
[2021-09-20] MEDS: POTASSIUM CHLORIDE 20 MEQ in WATER FOR INJECTION 1 100ML.BAG IVPB SCH ×3 (01:04→11:00)
[2021-09-20] MEDS: DEXTROSE 5% IN WATER 1,000 ML with SODIUM BICARB (1 MEQ/ML) 100 ML IV SCH (03:39)
[2021-09-20] MEDS: IPRATROPIUM-ALBUTEROL 3 ML NEB INHALATION SCH ×6 (04:44→23:12)
[2021-09-20 05:25] LABS: Anisocytosis Slight; Basophils % (A) 0 %; Eosinophils # (A) 0.3 k/uL (0-0.7); Eosinophils % (A) 2 %; HCT 21.5 % (39.0-53.0); HGB 7.1 gm/dL (13.0-17.5); Lymphocytes # (A) 1.3 k/uL (1.0-4.8); Lymphocytes % (A) 11 %; MCH 29.6 pg (25.0-35.0); MCHC 32.8 g/dL (31.0-37.0); MCV 90.2 fL (80.0-100.0); Mean Platelet Volume 8.1; Monocytes # (A) 0.3 k/uL (0-1.0); Monocytes % (A) 3 %; Neutrophils # (A) 9.5 k/uL (1.3-7.7); Neutrophils % (A) 82 %; Platelet Count 352 k/uL (150-450); Poikilocytosis Slight; RBC 2.39 m/uL (4.30-5.90); RDW 16.3 % (11.5-15.5); WBC 11.5 k/uL (3.8-10.6)
[2021-09-20 05:37] LABS: Calcium 7.2 mg/dL (8.4-10.2); Potassium 3.5 mmol/L (3.5-5.1)
[2021-09-20 05:42] LABS: ABG Base Excess 2.4 mmol/L; ABG HCO3 27 mmol/L (21-25); ABG Oxygen Saturation 97.9 % (94-97); ABG PCO2 42 mmHg (35-45); ABG PH 7.42 (7.35-7.45); ABG PO2 89 mmHg (83-108); ABG TCO2 28 mmol/L (19-24); Allen Test Performed? Yes
[2021-09-20] MEDS: CHLORHEXIDINE GLUCONATE 15 ML CUP MUCOUS MEM SCH ×2 (08:01→20:53)
[2021-09-20] MEDS: PANTOPRAZOLE 40 MG/10 ML VIAL IVP SCH (08:01)
--- NOTE | 2021-09-20 08:19 | XR ---
EXAMINATION TYPE: XR chest 1V portable DATE OF EXAM: 09/20/2021 Comparison: 09/19/2021 Clinical History: 61 year-old male tube placement Findings: ET and NG tubes satisfactory. Left CVC tip at the lower SVC. Low lung volumes and cardiovascular eugene ings. Heart borderline enlarged. Interstitial prominence persists. Continued retrocardiac and left ba silar opacity. Impression: Correlate for pulmonary vascular congestion. Continued left basilar and retrocardiac opacity probably combination of small to moderate pleural effusion with adjacent atelectasis and/or consolidation.
--- NOTE | 2021-09-20 09:11 | P.PN ---
Subjective Patient is seen in follow-up for acute kidney injury, currently hemodialysis dependent. Started on hemodialysis 09/12/2021. On Levophed. Oliguric. Currently on bicarb drip. Acidosis improved. Started on tube feeds last night. Intubated. Vital signs are stable. On Levophed. General: Intubated. LUNGS: Breath sounds decreased. HEART: Tachycardic. ABDOMEN: Soft, no distention. EXTREMITITES: 1+ edema. Objective - Vital Signs Vital signs: Vital Signs Temp 99.4 F 09/20/21 02:00 Pulse 116 H 09/20/21 08:23 Resp 23 09/20/21 08:00 BP 113/93 09/20/21 04:30 Pulse Ox 97 09/20/21 08:00 Intake & Output 09/19/21 09/20/21 09/20/21 18:59 06:59 18:59 Intake Total 2290.172 2000.295 520.022 Output Total 5 0 0 Balance 2285.172 2000.295 520.022 Intake: IV 1200 1200 350 Dextrose 5% in Water 1, 900 900 150 000 ml @ 75 mls/hr IV . [id number] ERINN with Sodium Bicarb (1 Meq/ml) 100 ml Rx#:[id number] Piperacillin-Tazobactam 3 100 100 .375 gm In Sodium Chloride 0.9% 100 ml @ 25 mls/hr IVPB Q12HR ERINN Rx #:[id number] Potassium Chloride 20 meq 200 200 200 In Water For Injection 1 100ml.bag @ 50 mls/hr IVPB Q2H ERINN Rx#: [id number] Intake, IV Titration 470.172 391.295 170.022 Amount Norepinephrine 32 mg In 127.272 15.245 44.182 Sodium Chloride 0.9% 218 ml @ 0.05 MCG/KG/MIN 3. 047 mls/hr IV .Q24H ERINN Rx#:[id number] propofoL 1,000 mg In 342.9 376.05 125.840 Empty Bag 1 bag @ 5 MCG/ KG/MIN 3.9 mls/hr IV . Q24H ERINN Rx#:[id number] Tube Feeding 70 Blood Product 620 279 Rc As-1 Unit 310 [id number] Rc Pheresis 2 As3 Unit 279 [id number] Other 60 Output: Urine 5 0 0 Other: Voiding Method Indwelling Catheter Indwelling Catheter ABP, PAP, CO, CI - Last Documented Arterial Blood Pressure 146/55 - Labs CBC & Chem 7: 09/20/21 05:00 09/20/21 05:00 Labs: Abnormal Lab Results - Last 24 Hours (Table) 09/19/21 09/19/21 09/19/21 Range/Units 06:10 12:35 18:13 WBC (3.8-10.6) k/uL RBC (4.30-5.90) m/uL Hgb (13.0-17.5) gm/dL Hct (39.0-53.0) % RDW (11.5-15.5) % Neutrophils # (1.3-7.7) k/uL ABG HCO3 (21-25) mmol/L ABG Total CO2 (19-24) mmol/L ABG O2 Saturation (94-97) % Sodium (137-145) mmol/L Potassium (3.5-5.1) mmol/L Creatinine (0.66-1.25) mg/dL Glucose (74-99) mg/dL POC Glucose (mg/dL) 141 H 153 H (75-99) mg/dL Calcium (8.4-10.2) mg/dL Crossmatch See Detail 09/19/21 09/19/21 09/20/21 Range/Units 21:40 21:40 00:08 WBC (3.8-10.6) k/uL RBC 2.01 L (4.30-5.90) m/uL Hgb 5.9 L* (13.0-17.5) gm/dL Hct 17.8 L* (39.0-53.0) % RDW 17.1 H (11.5-15.5) % Neutrophils # (1.3-7.7) k/uL ABG HCO3 (21-25) mmol/L ABG Total CO2 (19-24) mmol/L ABG O2 Saturation (94-97) % Sodium (137-145) mmol/L Potassium 3.2 L (3.5-5.1) mmol/L Creatinine (0.66-1.25) mg/dL Glucose (74-99) mg/dL POC Glucose (mg/dL) 152 H (75-99) mg/dL Calcium (8.4-10.2) mg/dL Crossmatch 09/20/21 09/20/21 09/20/21 Range/Units 05:00 05:00 05:38 WBC 11.5 H (3.8-10.6) k/uL RBC 2.39 L (4.30-5.90) m/uL Hgb 7.1 L (13.0-17.5) gm/dL Hct 21.5 L (39.0-53.0) % RDW 16.3 H (11.5-15.5) % Neutrophils # 9.5 H (1.3-7.7) k/uL ABG HCO3 27 H (21-25) mmol/L ABG Total CO2 28 H (19-24) mmol/L ABG O2 Saturation 97.9 H (94-97) % Sodium 136 L (137-145) mmol/L Potassium (3.5-5.1) mmol/L Creatinine 2.84 H (0.66-1.25) mg/dL Glucose 163 H (74-99) mg/dL POC Glucose (mg/dL) (75-99) mg/dL Calcium 7.2 L (8.4-10.2) mg/dL Crossmatch Assessment and Plan Plan: Assessment: 1. Acute kidney injury secondary to ATN secondary to hypotension. Creatinine was 0.77 on 08/10/2021. Patient started on hemodialysis in 09/12/2021 due to persistent hyperkalemia. Patient has a right groin catheter. Oliguric. 2. Hyperkalemia secondary to acute kidney injury, acidosis and use of JENSEN inhibitor prior to admission. Improved postdialysis. 3. Metabolic acidosis secondary to acute kidney injury. Improved. 4. Acute cholecystitis with gangrenous bladder status post open cholecystectomy on 09/17/2021. 5. Acute hypoxia respiratory failure. Currently intubated. Plan: Hemodialysis today. Wean FiO2 and vasopressors. Stop bicarb drip. Start normal saline at 50 mL an hour. Hep-Lock fluids once tube feeds at goal. Avoid nephrotoxins. Continue to monitor renal function and urine output. Patient will need a permacath and removal of the groin dialysis catheter. Potassium being replaced. Need to be cautious as patient is oliguric
[2021-09-20] MEDS: PIPERACILLIN-TAZOBACTAM 3.375 GM in SODIUM CHLORIDE 0.9% 100 ML IVPB SCH ×2 (09:30→20:53)
[2021-09-20] MEDS: SODIUM CHLORIDE 0.9% 1,000 ML IV SCH (09:32)
[2021-09-20] MEDS: ENOXAPARIN 30 MG/0.3 ML SYRINGE SQ SCH (09:35)
--- NOTE | 2021-09-20 11:33 | P.PN ---
Subjective From the records: Patient could not provide information, This is a 61-year-old patient, follows with Dr. Seda Schneider. Chronic stable medical conditions include diabetes, , hyperlipidemia, obstructive sleep apnea uses CPAP, herniated disc / injections,. Patient was in the hospital from 06/26/2021 through July 16 Admitted with pneumonia, severe hypothermia, acute hypoxic respiratory failure, possible sepsis, possible acute congestive heart failure exacerbation. Was intubated. Was discharged on intermittent BiPAP. Stites to have possible viral pneumonitis. Was negative for COVID. Was discharged to rehab. At the rehab patient had a poor appetite. Not really able to walk. Patient was at operating room assistant up as found a very low blood pressure. Admitted. Denies any fever and chills. Actually eating better here. Has been having daily bowel movements. Occasional diarrhea. Does feel tired and rundown. Admitted with severe hypotension, acute kidney injury, hypoglycemia. Diuretics were held. IV hydration. PTOT. September 11: Lasted patient abdominal pain. Abdominal x-ray unremarkable. Surgery consulted. Patient's is present. Appetite is actually getting better. Continue IV fluids. Renal function worsening. Start bicarbonate drip. Coughing up some yellow sputum. Add doxycycline for acute bronchitis. Check creatinine kinase. Rule out rhabdomyolysis. September 12: Patient potassium persisted to be high yesterday. In spite of having several medications. Moved to the ICU. Nephrology consulted. Dialysis cathet er was placed and patient received hemodialysis late last night. Poor appetite. Tired. Seen by psychiatry. Stites to have adjustment disorder. September 13: ICU: Tired and sleepy. Barely eating. I reviewed medications. Patient on Neurontin in the setting of acute kidney injury this can cause the patient to be lethargic. Cut back on the dose. Dialysis today. About half a liter removed. IV Zosyn. September 14: Patient started on Marinol yesterday. Still appetite is poor. Pharyngeal hygiene not good. Discussed with the nurse to get it clean. Including saltwater gargle. Patient bit more awake after cutting back dose of Neurontin. On IV Zosyn. September 15: Patient not really eating. Neurontin cutback 200 mg daily at bedtime. Reminded nurse about pharyngeal tolerate. Not much urine output. IV fluids increased to 130 mL an hour. Hypoglycemic. DC Lantus. March 10: Patient does complain of feeling depressed. Not eating. Patient was reevaluated by psychiatry. Stites to be adjustment disorder. Patient does not have any pain in the lower extremity except on movement. cutback Requip. .25 mg daily at bedtime. It is cleared through the renal route. Getting a neurological evaluation. The unlikely will check patient's ammonia level. Also spoke to the about possible feeding tube. Given poor oral intake. Patient only eating a few bites here and there September 17: Patient taken to the OR. Dr. Renetta Santillan the patient's found to have a gangrenous gallbladder. GRETCHEN drain. Patient taken to the ICU postprocedure. On the ventilator. IV propofol. Spoke to patient's family i ncluding the at the bedside. Subjective: 09/18/2021 Patient with gangrenous cholecystitis status post cholecystectomy on 09/17, Today is postoperative day #1, after that he was admitted to the ICU with sepsis and hypotension which is improving now, he is currently intubated and sedated. Also has been started for hemodialysis regarding his acute kidney injury. Neurologist on the case for his metabolic/toxic encephalopathy. Patient is not febrile. Still tachycardic and tachypneic WBC 11.8, hemoglobin 8.2, platelet count 513 Potassium 5.9, creatinine 5.7, liver enzymes slightly elevated AST 79 with normal ALT 47 and bilirubin 1.3. Serum cortisol is 20 Chest x-ray from today showing some pleural reaction and atelectasis at the lung bases. There is clearing of pulmonary edema to a large extent compared to old exam earlier today Currently he is on pressors and taken Zosyn as well. Objective - Vital Signs Vital signs: Vital Signs Temp 97.7 F 09/18/21 12:35 Pulse 122 H 09/18/21 12:35 Resp 12 09/18/21 12:35 BP 90/46 09/18/21 12:35 Pulse Ox 98 09/18/21 12:00 Intake & Output 09/17/21 09/18/21 09/18/21 18:59 06:59 18:59 Intake Total 1112.192 4080.000 1012.249 Output Total 447 293 9227 Balance 0412.647 3852.000 -787.751 Weight 130 kg Intake: IV 1200 2024 475 Dextrose 5% in Water 1, 375 000 ml @ 75 mls/hr IV . [id number] ERINN with Sodium Bicarb (1 Meq/ml) 100 ml Rx#:[id number] Piperacillin-Tazobactam 3 125 100 .375 gm In Sodium Chloride 0.9% 100 ml @ 25 mls/hr IVPB Q12HR ERINN Rx #:[id number] Sodium Chloride 0.9% 1, 300 1900 000 ml @ 50 mls/hr IV . Q20H ERINN Rx#:[id number] Intake, IV Titration 64.090 608.000 237.249 Amount Norepinephrine 4 mg In 508.000 237.249 Sodium Chloride 0.9% 250 ml @ 0.05 MCG/KG/MIN 24. 765 mls/hr IV .[id number] ERINN Rx#:[id number] propofoL 1,000 mg In 64.090 100 Empty Bag 1 bag @ 5 MCG/ KG/MIN 3.9 mls/hr IV . Q24H ERINN Rx#:[id number] Hemodialysis 300 Output: Drainage 0 Right Abdomen 0 Urine 140 0 Hemodialysis 1800 Estimated Blood Loss 200 Other: Voiding Method External Catheter Indwelling Catheter Indwelling Catheter - Exam -GENERAL: The patient is sedated and intubated HEENT: Pupils are round and equally reacting to light. EOMI. No scleral icterus. No conjunctival pallor. Normocephalic, atraumatic. No pharyngeal erythema. No thyromegaly. CARDIOVASCULAR: S1 and S2 present. No murmurs, rubs, or gallops. PULMONARY: Chest is clear to auscultation, no wheezing or crackles. -ABDOMEN: Soft, nontender, nondistended, normoactive bowel sounds. No palpable organomegaly. Surgical wound closed with dressing in place MUSCULOSKELETAL: No joint swelling or deformity. EXTREMITIES: No cyanosis, clubbing, or pedal edema. NEUROLOGICAL: Gross neurological examination did not reveal any focal deficits. SKIN: No rashes. no petechiae. - Labs CBC & Chem 7: 09/20/21 05:00 09/20/21 05:00 Labs: Abnormal Lab Results - Last 24 Hours (Table) 09/17/21 09/17/21 09/17/21 Range/Units 13:34 14:12 15:17 WBC (3.8-10.6) k/uL RBC (4.30-5.90) m/uL Hgb (13.0-17.5) gm/dL Hct (39.0-53.0) % MCHC (31.0-37.0) g/dL RDW (11.5-15.5) % Plt Count (150-450) k/uL Neutrophils # (Manual) (1.3-7.7) k/uL Lymphocytes # (Manual) (1.0-4.8) k/uL Metamyelocytes # (Man) (0) k/uL Myelocytes # (Manual) (0) k/uL ABG pH 7.19 L* (7.35-7.45) ABG pO2 228 H (83-108) mmHg ABG HCO3 16 L (21-25) mmol/L ABG Total CO2 17 L (19-24) mmol/L ABG O2 Saturation 99.5 H (94-97) % Potassium (3.5-5.1) mmol/L Chloride (98-107) mmol/L Carbon Dioxide (22-30) mmol/L BUN (9-20) mg/dL Creatinine (0.66-1.25) mg/dL Glucose (74-99) mg/dL POC Glucose (mg/dL) 123 H 131 H (75-99) mg/dL Calcium (8.4-10.2) mg/dL AST (17-59) U/L ALT (4-49) U/L Alkaline Phosphatase (38-126) U/L Total Protein (6.3-8.2) g/dL Albumin (3.5-5.0) g/dL 09/17/21 09/17/21 09/17/21 Range/Units 15:37 15:37 21:06 WBC (3.8-10.6) k/uL RBC 3.51 L 2.95 L (4.30-5.90) m/uL Hgb 9.9 L 8.2 L D (13.0-17.5) gm/dL Hct 33.1 L 27.4 L (39.0-53.0) % MCHC 29.8 L 30.0 L (31.0-37.0) g/dL RDW 16.9 H 16.8 H (11.5-15.5) % Plt Count (150-450) k/uL Neutrophils # (Manual) (1.3-7.7) k/uL Lymphocytes # (Manual) 0.25 L 0.36 L (1.0-4.8) k/uL Metamyelocytes # (Man) 0.17 H 0.07 H (0) k/uL Myelocytes # (Manual) 0.08 H 0.14 H (0) k/uL ABG pH (7.35-7.45) ABG pO2 (83-108) mmHg ABG HCO3 (21-25) mmol/L ABG Total CO2 (19-24) mmol/L ABG O2 Saturation (94-97) % Potassium (3.5-5.1) mmol/L Chloride (98-107) mmol/L Carbon Dioxide 16 L (22-30) mmol/L BUN 44 H (9-20) mg/dL Creatinine 5.52 H (0.66-1.25) mg/dL Glucose 112 H (74-99) mg/dL POC Glucose (mg/dL) (75-99) mg/dL Calcium 8.2 L (8.4-10.2) mg/dL AST 97 H (17-59) U/L ALT 60 H (4-49) U/L Alkaline Phosphatase 212 H (38-126) U/L Total Protein 4.8 L (6.3-8.2) g/dL Albumin 2.3 L (3.5-5.0) g/dL 09/17/21 09/18/21 09/18/21 Range/Units 22:06 00:10 05:29 WBC (3.8-10.6) k/uL RBC (4.30-5.90) m/uL Hgb (13.0-17.5) gm/dL Hct (39.0-53.0) % MCHC (31.0-37.0) g/dL RDW (11.5-15.5) % Plt Count (150-450) k/uL Neutrophils # (Manual) (1.3-7.7) k/uL Lymphocytes # (Manual) (1.0-4.8) k/uL Metamyelocytes # (Man) (0) k/uL Myelocytes # (Manual) (0) k/uL ABG pH 7.13 L* (7.35-7.45) ABG pO2 127 H (83-108) mmHg ABG HCO3 14 L (21-25) mmol/L ABG Total CO2 16 L (19-24) mmol/L ABG O2 Saturation 98.1 H (94-97) % Potassium (3.5-5.1) mmol/L Chloride (98-107) mmol/L Carbon Dioxide (22-30) mmol/L BUN (9-20) mg/dL Creatinine (0.66-1.25) mg/dL Glucose (74-99) mg/dL POC Glucose (mg/dL) 154 H 162 H (75-99) mg/dL Calcium (8.4-10.2) mg/dL AST (17-59) U/L ALT (4-49) U/L Alkaline Phosphatase (38-126) U/L Total Protein (6.3-8.2) g/dL Albumin (3.5-5.0) g/dL 09/18/21 09/18/21 09/18/21 Range/Units 05:51 07:56 11:53 WBC 11.8 H (3.8-10.6) k/uL RBC 2.95 L (4.30-5.90) m/uL Hgb 8.2 L (13.0-17.5) gm/dL Hct 28.5 L (39.0-53.0) % MCHC 28.7 L (31.0-37.0) g/dL RDW 17.5 H (11.5-15.5) % Plt Count 513 H (150-450) k/uL Neutrophils # (Manual) 10.30 H (1.3-7.7) k/uL Lymphocytes # (Manual) 0.71 L (1.0-4.8) k/uL Metamyelocytes # (Man) 0.24 H (0) k/uL Myelocytes # (Manual) 0.12 H (0) k/uL ABG pH (7.35-7.45) ABG pO2 (83-108) mmHg ABG HCO3 (21-25) mmol/L ABG Total CO2 (19-24) mmol/L ABG O2 Saturation (94-97) % Potassium 5.9 H (3.5-5.1) mmol/L Chloride 110 H (98-107) mmol/L Carbon Dioxide 10 L (22-30) mmol/L BUN 49 H (9-20) mg/dL Creatinine 5.79 H (0.66-1.25) mg/dL Glucose 148 H (74-99) mg/dL POC Glucose (mg/dL) 159 H (75-99) mg/dL Calcium 8.1 L (8.4-10.2) mg/dL AST 79 H (17-59) U/L ALT (4-49) U/L Alkaline Phosphatase 135 H (38-126) U/L Total Protein 5.2 L (6.3-8.2) g/dL Albumin 2.3 L (3.5-5.0) g/dL Microbiology - Last 24 Hours (Table) 09/12/21 10:29 Blood Culture - Final Blood No Growth after 144 hours 09/12/21 10:28 Blood Culture - Final Blood No Growth after 144 hours Assessment and Plan Assessment: -Acute gangrenous cholecystitis status post cholecystectomy. On 09/17 2 days postop day #1. Continue with postop care. IV fluids -Severe sepsis and hypotension, with acute hypoxic respiratory failure, currently intubated and on pressors. With pulmonary/critical care team following closely. Also patient on Zosyn and no epinephrine drip -Chronic congestive heart failure. From diastolic dysfunction EF 55-60%: Hold diuretics for now -Acute kidney injury prerenal versus ATN: On renal replacement therapy on hemodialysis -Acute metabolic acidosis from worsening renal failure: Better bicarbonate drip-discontinued. Oral bicarbonate -Acute severe hyperkalemia from metabolic acidosis: Better -Sinus tachycardia likely from sepsis -Anorexia multifactorial: Not improving Did not respond to Marinol. -Obesity BMI 34 -History of Adjustment disorder Seen by psychiatry. No medications. -Essential hypertension, currently blood pressure running low Hold off antihypertensive -History of Restless leg syndrome Requip .25 mg daily at bedtime -Diabetes mellitus type 2 on oral hypoglycemic, uncontrolled with hypoglycemia: Slow to respond Hold of oral hypoglycemic. Follow Accu-Cheks. -Hyperlipidemia Hold off Zocor because of muscle weakness -BPH Flomax 0.4 mg daily -COPD Advair 250/50 one puff twice a day. DuoNeb 4 times a day -Chronic medical debility from recent protracted hospitalization Patient eventually will need PTOT DVT prophylaxis: Lovenox GI prophylaxis: Protonix Prognosis is guarded
--- NOTE | 2021-09-20 11:39 | P.PN ---
Subjective From the records: Patient could not provide information, This is a 61-year-old patient, follows with Dr. Seda Schneider. Chronic stable medical conditions include diabetes, , hyperlipidemia, obstructive sleep apnea uses CPAP, herniated disc / injections,. Patient was in the hospital from 06/26/2021 through July 16 Admitted with pneumonia, severe hypothermia, acute hypoxic respiratory failure, possible sepsis, possible acute congestive heart failure exacerbation. Was intubated. Was discharged on intermittent BiPAP. Ovalo to have possible viral pneumonitis. Was negative for COVID. Was discharged to rehab. At the rehab patient had a poor appetite. Not really able to walk. 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 Admitted. Denies any fever and chills. Actually eating better here. Has been having daily bowel movements. Occasional diarrhea. Does feel tired and rundown. Admitted with severe hypotension, acute kidney injury, hypoglycemia. Diuretics were held. IV hydration. PTOT. September 11: Lasted patient abdominal pain. Abdominal x-ray unremarkable. Surgery consulted. Patient's is present. Appetite is actually getting better. Continue IV fluids. Renal function worsening. Start bicarbonate drip. Coughing up some yellow sputum. Add doxycycline for acute bronchitis. Check creatinine kinase. Rule out rhabdomyolysis. September 12: Patient potassium persisted to be high yesterday. In spite of having several medications. Moved to the ICU. Nephrology consulted. Dialysis cathet er was placed and patient received hemodialysis late last night. Poor appetite. Tired. Seen by psychiatry. Ovalo to have adjustment disorder. September 13: ICU: Tired and sleepy. Barely eating. I reviewed medications. Patient on Neurontin in the setting of acute kidney injury this can cause the patient to be lethargic. Cut back on the dose. Dialysis today. About half a liter removed. IV Zosyn. September 14: Patient started on Marinol yesterday. Still appetite is poor. Pharyngeal hygiene not good. Discussed with the nurse to get it clean. Including saltwater gargle. Patient bit more awake after cutting back dose of Neurontin. On IV Zosyn. September 15: Patient not really eating. Neurontin cutback 200 mg daily at bedtime. Reminded nurse about pharyngeal tolerate. Not much urine output. IV fluids increased to 130 mL an hour. Hypoglycemic. DC Lantus. March 10: Patient does complain of feeling depressed. Not eating. Patient was reevaluated by psychiatry. Ovalo to be adjustment disorder. Patient does not have any pain in the lower extremity except on movement. cutback Requip. .25 mg daily at bedtime. It is cleared through the renal route. Getting a neurological evaluation. The unlikely will check patient's ammonia level. Also spoke to the about possible feeding tube. Given poor oral intake. Patient only eating a few bites here and there September 17: Patient taken to the OR. Dr. Renetta Santillan the patient's found to have a gangrenous gallbladder. GRETCHEN drain. Patient taken to the ICU postprocedure. On the ventilator. IV propofol. Spoke to patient's family i ncluding the at the bedside. Subjective: 09/18/2021 Patient with gangrenous cholecystitis status post cholecystectomy on 09/17, Today is postoperative day #1, after that he was admitted to the ICU with sepsis and hypotension which is improving now, he is currently intubated and sedated. Also has been started for hemodialysis regarding his acute kidney injury. Neurologist on the case for his metabolic/toxic encephalopathy. Patient is not febrile. Still tachycardic and tachypneic WBC 11.8, hemoglobin 8.2, platelet count 513 Potassium 5.9, creatinine 5.7, liver enzymes slightly elevated AST 79 with normal ALT 47 and bilirubin 1.3. Serum cortisol is 20 Chest x-ray from today showing some pleural reaction and atelectasis at the lung bases. There is clearing of pulmonary edema to a large extent compared to old exam earlier today Currently he is on pressors and taken Zosyn as well. 09/19/2021 Patient remains in the ICU intubated and sedated with pulmonary/critical care team following him closely.patient is getting interrupteds sedation His WBC is improved 9.1, hemoglobin was low at 5.9. Sodium 135, potassium 3.1, creatinine 3.9, glucose control. Chest x-ray: Show no change Patient is getting blood transfusion today, most likely patient has oozing from the surgical site. Also JVD drain with serosanguineous fluid Objective - Vital Signs Vital signs: Vital Signs Temp 98.3 F 09/19/21 09:00 Pulse 112 H 09/19/21 09:00 Resp 16 09/19/21 09:00 BP 109/47 09/19/21 09:00 Pulse Ox 98 09/19/21 09:00 Intake & Output 09/18/21 09/19/21 09/19/21 17:59 06:59 18:59 Intake Total 476.768 Output Total 0 Balance 476.768 Intake: IV 325 Dextrose 5% in Water 1, 225 000 ml @ 75 mls/hr IV . [id number] ERINN with Sodium Bicarb (1 Meq/ml) 100 ml Rx#:[id number] Piperacillin-Tazobactam 3 .375 gm In Sodium Chloride 0.9% 100 ml @ 25 mls/hr IVPB Q12HR ER[facility] Rx #:[id number] Potassium Chloride 20 meq 100 In Water For Injection 1 100ml.bag @ 50 mls/hr IVPB Q2H [facility] Rx#: [id number] Sodium Chloride 0.9% 1, 000 ml @ 50 mls/hr IV . Q20H COUNTS INCLUDE 234 BEDS AT THE [facility] Rx#:[id number] Intake, IV Titration 151.768 Amount Norepinephrine 32 mg In 51.768 Sodium Chloride 0.9% 218 ml @ 0.05 MCG/KG/MIN 3. 047 mls/hr IV .Q24H COUNTS INCLUDE 234 BEDS AT THE [facility] Rx#:[id number] Norepinephrine 4 mg In Sodium Chloride 0.9% 250 ml @ 0.05 MCG/KG/MIN 24. 765 mls/hr IV .[id number] COUNTS INCLUDE 234 BEDS AT THE [facility] Rx#:[id number] propofoL 1,000 mg In 100 Empty Bag 1 bag @ 5 MCG/ KG/MIN 3.9 mls/hr IV . Q24H COUNTS INCLUDE 234 BEDS AT THE [facility] Rx#:[id number] Blood Product 0 Rc As-1 Unit 0 [id number] Hemodialysis Output: Gastric Drainage Drainage Right Abdomen Urine 0 Hemodialysis Other: Voiding Method Indwelling Catheter ABP, PAP, CO, CI - Last Documented Arterial Blood Pressure 115/48 - Exam -GENERAL: The patient is sedated and intubated HEENT: Pupils are round and equally reacting to light. EOMI. No scleral icterus. No conjunctival pallor. Normocephalic, atraumatic. No pharyngeal erythema. No thyromegaly. CARDIOVASCULAR: S1 and S2 present. No murmurs, rubs, or gallops. PULMONARY: Chest is clear to auscultation, no wheezing or crackles. -ABDOMEN: Soft, nontender, nondistended, normoactive bowel sounds. No palpable organomegaly. Surgical wound closed with dressing in place MUSCULOSKELETAL: No joint swelling or deformity. EXTREMITIES: No cyanosis, clubbing, or pedal edema. NEUROLOGICAL: Gross neurological examination did not reveal any focal deficits. SKIN: No rashes. no petechiae. - Labs CBC & Chem 7: 09/20/21 05:00 09/20/21 05:00 Labs: Abnormal Lab Results - Last 24 Hours (Table) 09/18/21 09/18/21 09/18/21 Range/Units 07:56 11:53 17:28 RBC (4.30-5.90) m/uL Hgb (13.0-17.5) gm/dL Hct (39.0-53.0) % MCHC (31.0-37.0) g/dL RDW (11.5-15.5) % Neutrophils # (1.3-7.7) k/uL Neutrophils # (Manual) 10.30 H (1.3-7.7) k/uL Lymphocytes # (Manual) 0.71 L (1.0-4.8) k/uL Metamyelocytes # (Man) 0.24 H (0) k/uL Myelocytes # (Manual) 0.12 H (0) k/uL ABG pH (7.35-7.45) ABG pCO2 (35-45) mmHg ABG Total CO2 (19-24) mmol/L ABG O2 Saturation (94-97) % Sodium (137-145) mmol/L Potassium (3.5-5.1) mmol/L Carbon Dioxide (22-30) mmol/L BUN (9-20) mg/dL Creatinine (0.66-1.25) mg/dL Glucose (74-99) mg/dL POC Glucose (mg/dL) 159 H 199 H (75-99) mg/dL Calcium (8.4-10.2) mg/dL Crossmatch 09/19/21 09/19/21 09/19/21 Range/Units 00:15 04:05 04:05 RBC 2.15 L (4.30-5.90) m/uL Hgb 6.0 L* D (13.0-17.5) gm/dL Hct 19.3 L* (39.0-53.0) % MCHC 30.9 L (31.0-37.0) g/dL RDW 17.6 H (11.5-15.5) % Neutrophils # 8.6 H (1.3-7.7) k/uL Neutrophils # (Manual) (1.3-7.7) k/uL Lymphocytes # (Manual) (1.0-4.8) k/uL Metamyelocytes # (Man) (0) k/uL Myelocytes # (Manual) (0) k/uL ABG pH (7.35-7.45) ABG pCO2 (35-45) mmHg ABG Total CO2 (19-24) mmol/L ABG O2 Saturation (94-97) % Sodium 135 L (137-145) mmol/L Potassium 3.1 L (3.5-5.1) mmol/L Carbon Dioxide 21 L (22-30) mmol/L BUN 31 H (9-20) mg/dL Creatinine 3.96 H (0.66-1.25) mg/dL Glucose 170 H (74-99) mg/dL POC Glucose (mg/dL) 209 H (75-99) mg/dL Calcium 7.4 L (8.4-10.2) mg/dL Crossmatch 09/19/21 09/19/21 09/19/21 Range/Units 05:55 06:10 06:41 RBC (4.30-5.90) m/uL Hgb (13.0-17.5) gm/dL Hct (39.0-53.0) % MCHC (31.0-37.0) g/dL RDW (11.5-15.5) % Neutrophils # (1.3-7.7) k/uL Neutrophils # (Manual) (1.3-7.7) k/uL Lymphocytes # (Manual) (1.0-4.8) k/uL Metamyelocytes # (Man) (0) k/uL Myelocytes # (Manual) (0) k/uL ABG pH 7.31 L (7.35-7.45) ABG pCO2 48 H (35-45) mmHg ABG Total CO2 25 H (19-24) mmol/L ABG O2 Saturation 97.5 H (94-97) % Sodium (137-145) mmol/L Potassium (3.5-5.1) mmol/L Carbon Dioxide (22-30) mmol/L BUN (9-20) mg/dL Creatinine (0.66-1.25) mg/dL Glucose (74-99) mg/dL POC Glucose (mg/dL) 164 H (75-99) mg/dL Calcium (8.4-10.2) mg/dL Crossmatch See Detail Microbiology - Last 24 Hours (Table) 09/12/21 10:29 Blood Culture - Final Blood No Growth after 144 hours 09/12/21 10:28 Blood Culture - Final Blood No Growth after 144 hours Assessment and Plan Assessment: -Acute gangrenous cholecystitis status post cholecystectomy. On 09/17 2 days postop day #1. Continue with postop care. IV fluids -Severe sepsis and hypotension, with acute hypoxic respiratory failure, currently intubated and on pressors. With pulmonary/critical care team following closely. Also patient on Zosyn and no epinephrine drip -Chronic congestive heart failure. From diastolic dysfunction EF 55-60%: Hold diuretics for now -Acute blood loss anemia, requiring blood transfusion, most likely due was informed surgical site, follow-up hemoglobin -Acute kidney injury prerenal versus ATN: On renal replacement therapy on hemodialysis -Acute metabolic acidosis from worsening renal failure: Better bicarbonate drip-discontinued. Oral bicarbonate -Acute severe hyperkalemia from metabolic acidosis: Better -Sinus tachycardia likely from sepsis -Anorexia multifactorial: Not improving Did not respond to Marinol. -Obesity BMI 34 -History of Adjustment disorder Seen by psychiatry. No medications. -Essential hypertension, currently blood pressure running low Hold off antihypertensive -History of Restless leg syndrome Requip .25 mg daily at bedtime -Diabetes mellitus type 2 on oral hypoglycemic, uncontrolled with hypoglycemia: Slow to respond Hold of oral hypoglycemic. Follow Accu-Cheks. -Hyperlipidemia Hold off Zocor because of muscle weakness -BPH Flomax 0.4 mg daily -COPD Advair 250/50 one puff twice a day. DuoNeb 4 times a day -Chronic medical debility from recent protracted hospitalization Patient eventually will need PTOT DVT prophylaxis: Lovenox GI prophylaxis: Protonix Prognosis is guarded
[2021-09-20 11:40] LABS: Glucose,Whole Blood 138 mg/dL (75-99)
--- NOTE | 2021-09-20 11:53 | P.PN ---
<Sherry Robbins - Last Filed: 09/20/21 11:45> Subjective Progress Note Date: 09/20/21 CHIEF COMPLAINT: Abdominal pain HISTORY OF PRESENT ILLNESS: Patient remains in the ICU and intubated. He is postop day #3 status post open cholecystectomy for acute gangrenous cholecystitis with transmural necrosis of gallbladder wall. They're trying to wean patient off the vent today. They're decreasing Levophed. He is currently receiving hemodialysis. Patient is still having blood oozing from the distal aspect of his incision site on the right side. Patient's incisional dressing is saturated with blood. He did have 2 sutures placed in his incision over the weekend. He is afebrile. WBC is 11.5 hemoglobin did go up from 5.9-7.1. Stool for occult blood was positive. GRETCHEN drain with serosanguineous output. Patient currently on a slow rate of tube feeds PHYSICAL EXAM: VITAL SIGNS: Reviewed. GENERAL: Intubated HEENT: No sclera icterus. Extraocular movements grossly intact. Moist buccal mucosa. Head is atraumatic, normocephalic. ABDOMEN: Soft. Mild distention. Incision site with blood oozing at the distal right end of incision ASSESSMENT: 1. Acute gangrenous cholecystitis status post open cholecystectomy 2. Acute kidney injury requiring hemodialysis PLAN: -Continue ICU management -Continue supportive care -Ventilator weaning per pulmonary service -Continue antibiotics -Continue to monitor incision site closely -Further recommendations forthcoming per surgeon Physician Supervisor Coke Handling note has been reviewed by physician. Signing provider agrees with the documented findings, assessment, and plan of care. Objective - Vital Signs Vital signs: Vital Signs Temp 99.4 F 09/20/21 02:00 Pulse 123 H 09/20/21 11:00 Resp 25 H 09/20/21 11:00 BP 113/93 09/20/21 04:30 Pulse Ox 99 09/20/21 11:00 Intake & Output 09/19/21 09/20/21 09/20/21 18:59 06:59 18:59 Intake Total 2290.172 1999.295 969.269 Output Total 5 0 10 Balance 2285.172 1999.295 959.269 Intake: IV 1200 1200 675 Dextrose 5% in Water 1, 900 900 225 000 ml @ 75 mls/hr IV . [id number] ERINN with Sodium Bicarb (1 Meq/ml) 100 ml Rx#:[id number] Piperacillin-Tazobactam 3 100 100 100 .375 gm In Sodium Chloride 0.9% 100 ml @ 25 mls/hr IVPB Q12HR [facility] Rx #:[id number] Potassium Chloride 20 meq 200 200 300 In Water For Injection 1 100ml.bag @ 50 mls/hr IVPB Q2H [facility] Rx#: [id number] Sodium Chloride 0.9% 1, 50 000 ml @ 50 mls/hr IV . Q20H [facility] Rx#:[id number] Intake, IV Titration 470.172 391.295 254.269 Amount Norepinephrine 32 mg In 127.272 15.245 60.959 Sodium Chloride 0.9% 218 ml @ 0.05 MCG/KG/MIN 3. 047 mls/hr IV .Q24H [facility] Rx#:[id number] propofoL 1,000 mg In 342.9 376.05 193.310 Empty Bag 1 bag @ 5 MCG/ KG/MIN 3.9 mls/hr IV . Q24H [facility] Rx#:[id number] Tube Feeding 70 40 Blood Product 620 279 Rc As-1 Unit 310 [id number] Rc Pheresis 2 As3 Unit 279 [id number] Other 60 Output: Urine 5 0 10 Other: Voiding Method Indwelling Catheter Indwelling Catheter Indwelling Catheter ABP, PAP, CO, CI - Last Documented Arterial Blood Pressure 111/43 - Labs CBC & Chem 7: 09/20/21 05:00 09/20/21 05:00 Labs: Abnormal Lab Results - Last 24 Hours (Table) 09/19/21 09/19/21 09/19/21 Range/Units 06:10 12:35 18:13 WBC (3.8-10.6) k/uL RBC (4.30-5.90) m/uL Hgb (13.0-17.5) gm/dL Hct (39.0-53.0) % RDW (11.5-15.5) % Neutrophils # (1.3-7.7) k/uL ABG HCO3 (21-25) mmol/L ABG Total CO2 (19-24) mmol/L ABG O2 Saturation (94-97) % Sodium (137-145) mmol/L Potassium (3.5-5.1) mmol/L Creatinine (0.66-1.25) mg/dL Glucose (74-99) mg/dL POC Glucose (mg/dL) 141 H 153 H (75-99) mg/dL Calcium (8.4-10.2) mg/dL Crossmatch See Detail 09/19/21 09/19/21 09/20/21 Range/Units 21:40 21:40 00:08 WBC (3.8-10.6) k/uL RBC 2.01 L (4.30-5.90) m/uL Hgb 5.9 L* (13.0-17.5) gm/dL Hct 17.8 L* (39.0-53.0) % RDW 17.1 H (11.5-15.5) % Neutrophils # (1.3-7.7) k/uL ABG HCO3 (21-25) mmol/L ABG Total CO2 (19-24) mmol/L ABG O2 Saturation (94-97) % Sodium (137-145) mmol/L Potassium 3.2 L (3.5-5.1) mmol/L Creatinine (0.66-1.25) mg/dL Glucose (74-99) mg/dL POC Glucose (mg/dL) 152 H (75-99) mg/dL Calcium (8.4-10.2) mg/dL Crossmatch 09/20/21 09/20/21 09/20/21 Range/Units 05:00 05:00 05:38 WBC 11.5 H (3.8-10.6) k/uL RBC 2.39 L (4.30-5.90) m/uL Hgb 7.1 L (13.0-17.5) gm/dL Hct 21.5 L (39.0-53.0) % RDW 16.3 H (11.5-15.5) % Neutrophils # 9.5 H (1.3-7.7) k/uL ABG HCO3 27 H (21-25) mmol/L ABG Total CO2 28 H (19-24) mmol/L ABG O2 Saturation 97.9 H (94-97) % Sodium 136 L (137-145) mmol/L Potassium (3.5-5.1) mmol/L Creatinine 2.84 H (0.66-1.25) mg/dL Glucose 163 H (74-99) mg/dL POC Glucose (mg/dL) (75-99) mg/dL Calcium 7.2 L (8.4-10.2) mg/dL Crossmatch 09/20/21 Range/Units 11:38 WBC (3.8-10.6) k/uL RBC (4.30-5.90) m/uL Hgb (13.0-17.5) gm/dL Hct (39.0-53.0) % RDW (11.5-15.5) % Neutrophils # (1.3-7.7) k/uL ABG HCO3 (21-25) mmol/L ABG Total CO2 (19-24) mmol/L ABG O2 Saturation (94-97) % Sodium (137-145) mmol/L Potassium (3.5-5.1) mmol/L Creatinine (0.66-1.25) mg/dL Glucose (74-99) mg/dL POC Glucose (mg/dL) 138 H (75-99) mg/dL Calcium (8.4-10.2) mg/dL Crossmatch <Harshil Gonzalez - Last Filed: 09/20/21 12:16> Subjective Patient remains on the ventilator. Apparently overnight he had further oozing from the lateral aspect of his vision. The lateral minh and the previously placed silk suture was removed. Careful inspection of the subcutaneous fat revealed a single bleeding vessel along the dermal layer. This was controlled using a single [id number] silk suture. This was performed in an aseptic technique. I did pack the incision on either side of the silk that was placed. No bleeding was seen. Continue weaning per pulmonary. Keep GRETCHEN drain in place for now. Objective - Vital Signs Vital signs: Vital Signs Temp 97.8 F 09/20/21 12:00 Pulse 129 H 09/20/21 12:00 Resp 25 H 09/20/21 12:00 BP 113/93 09/20/21 04:30 Pulse Ox 100 09/20/21 12:00 Intake & Output 09/19/21 09/20/21 09/20/21 18:59 06:59 18:59 Intake Total 2290.172 1999.295 1069.269 Output Total 5 0 15 Balance 2285.172 1999.295 1054.269 Intake: IV 1200 1200 725 Dextrose 5% in Water 1, 900 900 225 000 ml @ 75 mls/hr IV . [id number] ERINN with Sodium Bicarb (1 Meq/ml) 100 ml Rx#:[id number] Piperacillin-Tazobactam 3 100 100 100 .375 gm In Sodium Chloride 0.9% 100 ml @ 25 mls/hr IVPB Q12HR [facility] Rx #:[id number] Potassium Chloride 20 meq 200 200 300 In Water For Injection 1 100ml.bag @ 50 mls/hr IVPB Q2H [facility]IN[facility] Rx#: [id number] Sodium Chloride 0.9% 1, 100 000 ml @ 50 mls/hr IV . Q20H [facility] Rx#:[id number] Intake, IV Titration 470.172 391.295 254.269 Amount Norepinephrine 32 mg In 127.272 15.245 60.959 Sodium Chloride 0.9% 218 ml @ 0.05 MCG/KG/MIN 3. 047 mls/hr IV .Q24H [facility] Rx#:[id number] propofoL 1,000 mg In 342.9 376.05 193.310 Empty Bag 1 bag @ 5 MCG/ KG/MIN 3.9 mls/hr IV . Q24H [facility] Rx#:[id number] Tube Feeding 70 60 Blood Product 620 279 Rc As-1 Unit 310 [id number] Rc Pheresis 2 As3 Unit 279 [id number] Other 60 30 Output: Urine 5 0 15 Other: Voiding Method Indwelling Catheter Indwelling Catheter Indwelling Catheter ABP, PAP, CO, CI - Last Documented Arterial Blood Pressure 115/52 - Labs CBC & Chem 7: 09/20/21 05:00 09/20/21 05:00 Labs: Abnormal Lab Results - Last 24 Hours (Table) 09/19/21 09/19/21 09/19/21 Range/Units 06:10 12:35 18:13 WBC (3.8-10.6) k/uL RBC (4.30-5.90) m/uL Hgb (13.0-17.5) gm/dL Hct (39.0-53.0) % RDW (11.5-15.5) % Neutrophils # (1.3-7.7) k/uL ABG HCO3 (21-25) mmol/L ABG Total CO2 (19-24) mmol/L ABG O2 Saturation (94-97) % Sodium (137-145) mmol/L Potassium (3.5-5.1) mmol/L Creatinine (0.66-1.25) mg/dL Glucose (74-99) mg/dL POC Glucose (mg/dL) 141 H 153 H (75-99) mg/dL Calcium (8.4-10.2) mg/dL Crossmatch See Detail 09/19/21 09/19/21 09/20/21 Range/Units 21:40 21:40 00:08 WBC (3.8-10.6) k/uL RBC 2.01 L (4.30-5.90) m/uL Hgb 5.9 L* (13.0-17.5) gm/dL Hct 17.8 L* (39.0-53.0) % RDW 17.1 H (11.5-15.5) % Neutrophils # (1.3-7.7) k/uL ABG HCO3 (21-25) mmol/L ABG Total CO2 (19-24) mmol/L ABG O2 Saturation (94-97) % Sodium (137-145) mmol/L Potassium 3.2 L (3.5-5.1) mmol/L Creatinine (0.66-1.25) mg/dL Glucose (74-99) mg/dL POC Glucose (mg/dL) 152 H (75-99) mg/dL Calcium (8.4-10.2) mg/dL Crossmatch 09/20/21 09/20/21 09/20/21 Range/Units 05:00 05:00 05:38 WBC 11.5 H (3.8-10.6) k/uL RBC 2.39 L (4.30-5.90) m/uL Hgb 7.1 L (13.0-17.5) gm/dL Hct 21.5 L (39.0-53.0) % RDW 16.3 H (11.5-15.5) % Neutrophils # 9.5 H (1.3-7.7) k/uL ABG HCO3 27 H (21-25) mmol/L ABG Total CO2 28 H (19-24) mmol/L ABG O2 Saturation 97.9 H (94-97) % Sodium 136 L (137-145) mmol/L Potassium (3.5-5.1) mmol/L Creatinine 2.84 H (0.66-1.25) mg/dL Glucose 163 H (74-99) mg/dL POC Glucose (mg/dL) (75-99) mg/dL Calcium 7.2 L (8.4-10.2) mg/dL Crossmatch 09/20/21 Range/Units 11:38 WBC (3.8-10.6) k/uL RBC (4.30-5.90) m/uL Hgb (13.0-17.5) gm/dL Hct (39.0-53.0) % RDW (11.5-15.5) % Neutrophils # (1.3-7.7) k/uL ABG HCO3 (21-25) mmol/L ABG Total CO2 (19-24) mmol/L ABG O2 Saturation (94-97) % Sodium (137-145) mmol/L Potassium (3.5-5.1) mmol/L Creatinine (0.66-1.25) mg/dL Glucose (74-99) mg/dL POC Glucose (mg/dL) 138 H (75-99) mg/dL Calcium (8.4-10.2) mg/dL Crossmatch Assessment and Plan (1) Acute gangrenous cholecystitis Current Visit: Yes Status: Acute Code(s): K81.0 - ACUTE CHOLECYSTITIS [facility] ED Code(s): 96899148
[2021-09-20 12:26] LABS: Anisocytosis Slight; Basophils # (A) 0.1 k/uL (0-0.2); Basophils % (A) 1 %; Eosinophils # (A) 0.2 k/uL (0-0.7); Eosinophils % (A) 1 %; HCT 22.5 % (39.0-53.0); HGB 7.4 gm/dL (13.0-17.5); Lymphocytes # (A) 1.2 k/uL (1.0-4.8); Lymphocytes % (A) 9 %; MCH 29.4 pg (25.0-35.0); MCHC 32.8 g/dL (31.0-37.0); MCV 89.4 fL (80.0-100.0); Mean Platelet Volume 7.3; Monocytes # (A) 0.3 k/uL (0-1.0); Monocytes % (A) 2 %; Neutrophils # (A) 10.7 k/uL (1.3-7.7); Neutrophils % (A) 85 %; Platelet Count 378 k/uL (150-450); Poikilocytosis Slight; RBC 2.52 m/uL (4.30-5.90); RDW 16.9 % (11.5-15.5); WBC 12.5 k/uL (3.8-10.6)
--- NOTE | 2021-09-20 14:59 | P.PN ---
Subjective Progress Note Date: 09/20/21 09/20/2021, seeing the patient for a follow-up. The patient is postop day #3 and the patient underwent a open cholecystectomy for a gangrenous cholecystitis. Initially, it was attempted to do laparoscopic and the patient was converted to an open procedure. The patient is currently on propofol running at 30 mg/kg per minute. The patient is on a mechanical ventilator on assist control mode at the rate of 12, tidal volume of 450, FiO2 of 30% and a PEEP of 5. Chest x-ray showing a left lower lobe consolidation/effusion. The blood gas shows a pH of 7.42 with a pCO2 of 42 and pO2 of 89. The patient is still on pressors and the patient is on norepinephrine infusion running at 0.08 mcg/kg per minute which is minimal at this point in time. The patient remains on IV Zosyn. The patient remains on on IV fluids in the form of the bicarb infusion running at 50 mL an hour and this will be switched to normal saline infusion. Urine output is in order of 5 mL an hour and the patient was started on hemodialysis through a temporary dialysis catheter in the right groin. The patient has undergone a lready 3 sessions of hemodialysis with ultrafiltration. The patient continues to have a GRETCHEN drain in the right upper quadrant area and output is minimal at this point in time. The patient had a hemoglobin of 5.9 and this was attributed to some wheezing from the surgical wound surface. The patient was transfused with a total of 2 units of packed RBC and the patient's hemoglobin today is at 7.1. The patient remains on IV Zosyn. The patient is on NovoLog sliding scale insulin coverage. The patient is on Lovenox 30 mg subcu for DVT prophylaxis. The white cell count of 12.5 with hemoglobin of 7.4. There creatinine is at 2.8 with a BUN of 20 and a sodium level of 136. Glucose at 138. Objective - Vital Signs Vital signs: Vital Signs Temp 99.4 F 09/20/21 02:00 Pulse 116 H 09/20/21 08:23 Resp 23 09/20/21 08:00 BP 113/93 09/20/21 04:30 Pulse Ox 97 09/20/21 08:00 Intake & Output 09/19/21 09/20/21 09/20/21 18:59 06:59 18:59 Intake Total 2290.172 2000.295 520.022 Output Total 5 0 0 Balance 2285.172 1999.295 520.022 Intake: IV 1200 1200 350 Dextrose 5% in Water 1, 900 900 150 000 ml @ 75 mls/hr IV . [id number] [facility] with Sodium Bicarb (1 Meq/ml) 100 ml Rx#:[id number] Piperacillin-Tazobactam 3 100 100 .375 gm In Sodium Chloride 0.9% 100 ml @ 25 mls/hr IVPB Q12HR [facility] Rx #:[id number] Potassium Chloride 20 meq 200 200 200 In Water For Injection 1 100ml.bag @ 50 mls/hr IVPB Q2H [facility] Rx#: [id number] Intake, IV Titration 470.172 391.295 170.022 Amount Norepinephrine 32 mg In 127.272 15.245 44.182 Sodium Chloride 0.9% 218 ml @ 0.05 MCG/KG/MIN 3. 047 mls/hr IV .Q24H [facility] Rx#:[id number] propofoL 1,000 mg In 342.9 376.05 125.840 Empty Bag 1 bag @ 5 MCG/ KG/MIN 3.9 mls/hr IV . Q24H [facility] Rx#:[id number] Tube Feeding 70 Blood Product 620 279 Rc As-1 Unit 310 [id number] Rc Pheresis 2 As3 Unit 279 [id number] Other 60 Output: Urine 5 0 0 Other: Voiding Method Indwelling Catheter Indwelling Catheter ABP, PAP, CO, CI - Last Documented Arterial Blood Pressure 146/55 - Exam No acute distress, sedated, with an orally placed endotracheal tube and NG tube. The patient remains intubated on a mechanical ventilator. The patient is calm and comfortable, well sedated with propofol. Head exam was generally normal. There was no scleral icterus or corneal arcus. Mucous membranes were moist. HEENT examination is grossly unremarkable. Neck supple. Full range of motion. No adenopathy thyromegaly or neck vein distention. Cardiovascular examination reveals regular rhythm rate. S1-S2 normal. No S3 or S4. No discernible murmur noted. Heart sounds are distant. Lungs reveal scattered bilateral rhonchi. No wheezes or crackles. Breath sounds equal bilaterally. Saturations are 98%. Abdomen soft, without bowel sounds. Extremities are intact. No cyanosis clubbing or edema. Skin is without rash or lesion. Neurologic examination cannot be assessed as the patient's currently sedated. - Labs CBC & Chem 7: 09/20/21 11:58 09/20/21 05:00 Labs: Abnormal Lab Results - Last 24 Hours (Table) 09/19/21 09/19/21 09/19/21 Range/Units 06:10 12:35 18:13 WBC (3.8-10.6) k/uL RBC (4.30-5.90) m/uL Hgb (13.0-17.5) gm/dL Hct (39.0-53.0) % RDW (11.5-15.5) % Neutrophils # (1.3-7.7) k/uL ABG HCO3 (21-25) mmol/L ABG Total CO2 (19-24) mmol/L ABG O2 Saturation (94-97) % Sodium (137-145) mmol/L Potassium (3.5-5.1) mmol/L Creatinine (0.66-1.25) mg/dL Glucose (74-99) mg/dL POC Glucose (mg/dL) 141 H 153 H (75-99) mg/dL Calcium (8.4-10.2) mg/dL Crossmatch See Detail 09/19/21 09/19/21 09/20/21 Range/Units 21:40 21:40 00:08 WBC (3.8-10.6) k/uL RBC 2.01 L (4.30-5.90) m/uL Hgb 5.9 L* (13.0-17.5) gm/dL Hct 17.8 L* (39.0-53.0) % RDW 17.1 H (11.5-15.5) % Neutrophils # (1.3-7.7) k/uL ABG HCO3 (21-25) mmol/L ABG Total CO2 (19-24) mmol/L ABG O2 Saturation (94-97) % Sodium (137-145) mmol/L Potassium 3.2 L (3.5-5.1) mmol/L Creatinine (0.66-1.25) mg/dL Glucose (74-99) mg/dL POC Glucose (mg/dL) 152 H (75-99) mg/dL Calcium (8.4-10.2) mg/dL Crossmatch 09/20/21 09/20/21 09/20/21 Range/Units 05:00 05:00 05:38 WBC 11.5 H (3.8-10.6) k/uL RBC 2.39 L (4.30-5.90) m/uL Hgb 7.1 L (13.0-17.5) gm/dL Hct 21.5 L (39.0-53.0) % RDW 16.3 H (11.5-15.5) % Neutrophils # 9.5 H (1.3-7.7) k/uL ABG HCO3 27 H (21-25) mmol/L ABG Total CO2 28 H (19-24) mmol/L ABG O2 Saturation 97.9 H (94-97) % Sodium 136 L (137-145) mmol/L Potassium (3.5-5.1) mmol/L Creatinine 2.84 H (0.66-1.25) mg/dL Glucose 163 H (74-99) mg/dL POC Glucose (mg/dL) (75-99) mg/dL Calcium 7.2 L (8.4-10.2) mg/dL Crossmatch Assessment and Plan Plan: 1 acute gangrenous cholecystitis. The patient is post open cholecystectomy. T he patient is postop day #3. The patient remains intubated on a mechanical ventilator. GRETCHEN drain is in place. The patient encountered postoperative anemia the patient was transfused with 3 units of packed RBCs and currently was at 7.1. 2 acute kidney injury, under investigation. The patient was oliguric and the patient was acute hyperkalemic and did not respond to conventional treatments. The patient ultimately was started on hemodialysis and the physician was done yesterday and the patient is producing some urine output today the potassium level is improved. Also, the patient was taken off the bicarb drip and the patient is currently on normal saline infusion 3 non-anion gap metabolic acidosis, currently on a normal saline infusion and a bicarb infusion has been discontinued. 4 acute hypoxic respiratory failure, still intubated on a mechanical ventilator and a chest x-ray showing some left basilar effusion/atelectasis 5 hypotension and sinus tachycardia, could be related to underlying infection/sepsis, currently under investigation 6 morbid obesity with BMI 41.8 7 history of acute hypoxic respiratory failure was on a mechanical ventilation back in mid June 2021 with left lung collapse, post bronchoscopy 2 8 bronchial asthma 5 diabetes mellitus 10 hyperlipidemia 11 hypertension 12 obstructive sleep apnea maintained on CPAP therapy 13 BPH 14 acute on chronic blood loss anemia, expected of the surgery and the patient got transfused with a total of 2 units of packed RBCs. Plan Complete hemodialysis today Change the patient IV fluids of normal saline at the rate of 50 mL an hour and discontinue the bicarb infusion Continued IV Zosyn Wean off propofol and assess the patient's mental status, check weaning parameters and assess the readiness to further weaning Monitor the output from the GRETCHEN drain Monitor surgical wound site Wean off pressors as the patient is currently on norepinephrine infusion at 0.06 mcg/kg per minute Monitor the hemoglobin level Continue with Lovenox The patient was ordered is started on vital high protein at the rate of 10 mL an hour We'll continue to follow comorbidities. We'll reevaluate his readiness to weaning once the patient is off sedation. We'll continue to follow. The patient is complaining hemodialysis for now. We'll start cutting of the sedation post hemodialysis. The patient has dialysis catheter in his right groin and the patient also has a triple-lumen catheter in his left IJ There is a critically care evaluation that was done and more than 30 minutes. Time with Patient: Greater than 30
--- NOTE | 2021-09-20 16:19 | P.PN ---
Subjective Progress Note Date: 09/20/21 I am seeing the patient for the first time for neurological management during this admission. Please refer to Dr. Edmond's note for further details. Per the nurse he had cholecystectomy this past monday. He remains to be intubated on Ventilator and is On IV Propfol 50mcg/kg/min and was held 30 minute prior to my examination. Objective - Vital Signs Vital signs: Vital Signs Temp 97.8 F 09/20/21 12:00 Pulse 131 H 09/20/21 16:00 Resp 21 09/20/21 15:00 BP 124/65 09/20/21 15:30 Pulse Ox 98 09/20/21 15:00 Intake & Output 09/19/21 09/20/21 09/20/21 18:59 06:59 18:59 Intake Total 2290.172 2000.295 1301.770 Output Total 5 0 3015 Balance 2285.172 1999.295 -1713.230 Weight 130 kg Intake: IV 1200 1200 875 Dextrose 5% in Water 1, 900 900 225 000 ml @ 75 mls/hr IV . [id number] [facility] with Sodium Bicarb (1 Meq/ml) 100 ml Rx#:[id number] Piperacillin-Tazobactam 3 100 100 100 .375 gm In Sodium Chloride 0.9% 100 ml @ 25 mls/hr IVPB Q12HR [facility] Rx #:[id number] Potassium Chloride 20 meq 200 200 300 In Water For Injection 1 100ml.bag @ 50 mls/hr IVPB Q2H [facility] Rx#: [id number] Sodium Chloride 0.9% 1, 250 000 ml @ 50 mls/hr IV . Q20H [facility] Rx#:[id number] Intake, IV Titration 470.172 391.295 336.770 Amount Norepinephrine 32 mg In 127.272 15.245 71.310 Sodium Chloride 0.9% 218 ml @ 0.05 MCG/KG/MIN 3. 047 mls/hr IV .Q24H [facility] Rx#:[id number] propofoL 1,000 mg In 342.9 376.05 265.460 Empty Bag 1 bag @ 5 MCG/ KG/MIN 3.9 mls/hr IV . Q24H [facility] Rx#:[id number] Tube Feeding 70 60 Blood Product 620 279 Rc As-1 Unit 310 [id number] Rc Pheresis 2 As3 Unit 279 [id number] Other 60 30 Output: Urine 5 0 15 Hemodialysis 3000 Other: Voiding Method Indwelling Catheter Indwelling Catheter Indwelling Catheter # Bowel Movements 1 ABP, PAP, CO, CI - Last Documented Arterial Blood Pressure 129/52 - Exam Physical Exam: Lung: Intubated on ventilator. Neuro: Limited since on IV Propofol and held 30 minutes. Prior was on 50mcg/kg/min. Comatose: GCS 5 (E3, VT1, M1). Briefly opens his eyes to voice. No facial weakness. Motor: Could not assess strength. FURTHER WORK-UP: Vitamin B6: 9 Vitamin B1: 90 TSH: 0.789 - Labs CBC & Chem 7: 09/20/21 11:58 09/20/21 05:00 Labs: Abnormal Lab Results - Last 24 Hours (Table) 09/19/21 09/19/21 09/19/21 Range/Units 06:10 18:13 21:40 WBC (3.8-10.6) k/uL RBC (4.30-5.90) m/uL Hgb (13.0-17.5) gm/dL Hct (39.0-53.0) % RDW (11.5-15.5) % Neutrophils # (1.3-7.7) k/uL ABG HCO3 (21-25) mmol/L ABG Total CO2 (19-24) mmol/L ABG O2 Saturation (94-97) % Sodium (137-145) mmol/L Potassium 3.2 L (3.5-5.1) mmol/L Creatinine (0.66-1.25) mg/dL Glucose (74-99) mg/dL POC Glucose (mg/dL) 153 H (75-99) mg/dL Calcium (8.4-10.2) mg/dL Crossmatch See Detail 09/19/21 09/20/21 09/20/21 Range/Units 21:40 00:08 05:00 WBC 11.5 H (3.8-10.6) k/uL RBC 2.01 L 2.39 L (4.30-5.90) m/uL Hgb 5.9 L* 7.1 L (13.0-17.5) gm/dL Hct 17.8 L* 21.5 L (39.0-53.0) % RDW 17.1 H 16.3 H (11.5-15.5) % Neutrophils # 9.5 H (1.3-7.7) k/uL ABG HCO3 (21-25) mmol/L ABG Total CO2 (19-24) mmol/L ABG O2 Saturation (94-97) % Sodium (137-145) mmol/L Potassium (3.5-5.1) mmol/L Creatinine (0.66-1.25) mg/dL Glucose (74-99) mg/dL POC Glucose (mg/dL) 152 H (75-99) mg/dL Calcium (8.4-10.2) mg/dL Crossmatch 09/20/21 09/20/21 09/20/21 Range/Units 05:00 05:38 11:38 WBC (3.8-10.6) k/uL RBC (4.30-5.90) m/uL Hgb (13.0-17.5) gm/dL Hct (39.0-53.0) % RDW (11.5-15.5) % Neutrophils # (1.3-7.7) k/uL ABG HCO3 27 H (21-25) mmol/L ABG Total CO2 28 H (19-24) mmol/L ABG O2 Saturation 97.9 H (94-97) % Sodium 136 L (137-145) mmol/L Potassium (3.5-5.1) mmol/L Creatinine 2.84 H (0.66-1.25) mg/dL Glucose 163 H (74-99) mg/dL POC Glucose (mg/dL) 138 H (75-99) mg/dL Calcium 7.2 L (8.4-10.2) mg/dL Crossmatch 09/20/21 Range/Units 11:58 WBC 12.5 H (3.8-10.6) k/uL RBC 2.52 L (4.30-5.90) m/uL Hgb 7.4 L (13.0-17.5) gm/dL Hct 22.5 L (39.0-53.0) % RDW 16.9 H (11.5-15.5) % Neutrophils # 10.7 H (1.3-7.7) k/uL ABG HCO3 (21-25) mmol/L ABG Total CO2 (19-24) mmol/L ABG O2 Saturation (94-97) % Sodium (137-145) mmol/L Potassium (3.5-5.1) mmol/L Creatinine (0.66-1.25) mg/dL Glucose (74-99) mg/dL POC Glucose (mg/dL) (75-99) mg/dL Calcium (8.4-10.2) mg/dL Crossmatch Assessment and Plan Assessment: * Altered mental status, most likely due to toxic metabolic encephalopathy as w ell as medication effect (IV Propofol). * Acute kidney injury, started on dialysis on 09/11/2021 * Recent history of hypotension leading to acute kidney injury * Status post cholecystectomy. * Generalized weakness most likely related to critical illness neuropathy/myopathy. * Anemia * Morbid obesity, BMI 41.8 * History of respiratory failure on mechanical ventilator. * Diabetes type 2 * Hyperlipidemia * Hypertension * COPD Plan: * CT head showed no acute process. There is improvement in the ethmoid and sphenoid sinusitis compared to old exam. There is bilateral chronic mastoi ditis similar to old exam. There is significant clearing of the opacification of the middle ear cavity compared to the last exam. Per Dr. Edmond, he reviewed computed tomography scan of the head and agree with the findings. Slight prominence of the ventricles as compared to the amount of cortical atrophy. * It appears patient's renal function is deteriorating with creatinine going up, may be the cause of worsening mentation. * Avoid any sedatives, hypnotics or narcotics. * Will defer the medical management to the primary team and ICU team. * Patient on SCDs for DVT prophylaxis. Neurology will follow sporadically. Hopefully we can get exam without sedation for prolonged period. The plan is discussed with the patient's nurse. Florencio Ulloa M.D. Neuro-Hospitalist Time with Patient: Less than 30
[2021-09-20] MEDS: NOREPINEPHRINE 32 MG in SODIUM CHLORIDE 0.9% 218 ML IV SCH (16:45)
[2021-09-20 17:40] LABS: Glucose,Whole Blood 146 mg/dL (75-99)
[2021-09-20] MEDS: GABAPENTIN 100 MG CAP PO SCH (20:53)
[2021-09-21 00:05] LABS: Glucose,Whole Blood 135 mg/dL (75-99)
[2021-09-21] MEDS: INSULIN ASPART (NovoLOG) 100 UNIT/ML VIAL SQ SCH ×4 (00:13→18:21)
[2021-09-21] MEDS: IPRATROPIUM-ALBUTEROL 3 ML NEB INHALATION SCH ×6 (03:58→23:25)
[2021-09-21 05:19] LABS: Albumin 1.6 g/dL (3.5-5.0); Calcium 7.2 mg/dL (8.4-10.2); Potassium 3.4 mmol/L (3.5-5.1); Total Bilirubin 0.5 mg/dL (0.2-1.3); Total Protein 3.6 g/dL (6.3-8.2)
[2021-09-21 05:49] LABS: Anisocytosis Slight; Basophils % (A) 0 %; Eosinophils # (A) 0.1 k/uL (0-0.7); Eosinophils % (A) 1 %; Lymphocytes % (A) 11 %; MCH 29.2 pg (25.0-35.0); MCHC 32.1 g/dL (31.0-37.0); Mean Platelet Volume 7.8; Monocytes # (A) 0.3 k/uL (0-1.0); Monocytes % (A) 3 %; Neutrophils # (A) 7.7 k/uL (1.3-7.7); Neutrophils % (A) 83 %; Platelet Count 293 k/uL (150-450); Poikilocytosis Slight; RBC 1.94 m/uL (4.30-5.90); RDW 16.7 % (11.5-15.5); WBC 9.2 k/uL (3.8-10.6)
[2021-09-21 06:01] LABS: HCT 17.6 % (39.0-53.0); HGB 5.7 gm/dL (13.0-17.5)
[2021-09-21 06:11] LABS: ABG Base Excess 2.9 mmol/L; ABG HCO3 27 mmol/L (21-25); ABG Oxygen Saturation 96.5 % (94-97); ABG PCO2 40 mmHg (35-45); ABG PH 7.44 (7.35-7.45); ABG PO2 74 mmHg (83-108); ABG TCO2 28 mmol/L (19-24)
[2021-09-21 06:18] LABS: Allen Test Performed? No
[2021-09-21] MEDS: SODIUM CHLORIDE 0.9% 1,000 ML IV SCH (06:42)
[2021-09-21] MEDS: POTASSIUM BICARBONATE/CIT AC 20 MEQ TABLET.EFF PO SCH ×6 (06:52→12:21)
--- NOTE | 2021-09-21 07:51 | XR ---
EXAMINATION TYPE: XR chest 1V portable DATE OF EXAM: 09/21/2021 CLINICAL HISTORY: Difficulty breathing progress study. TECHNIQUE: Single AP portable semiupright view of the chest is obtained. COMPARISON: Chest x-ray from one day earlier and older studies. FINDINGS: Stable endotracheal and orogastric tubes. Stable left-sided internal jugular central venou s catheter. Persistent low lung volumes and improved left basilar opacity. Cardiac silhouette size stable and upp er limits of normal. Right lung remains clear. Osseous structures are intact. IMPRESSION: Small left pleural effusion with associated left basilar atelectasis and/or infiltrate im proved from one day earlier.
[2021-09-21] MEDS: PANTOPRAZOLE 40 MG/10 ML VIAL IVP SCH (08:01)
[2021-09-21] MEDS: CHLORHEXIDINE GLUCONATE 15 ML CUP MUCOUS MEM SCH ×2 (08:01→21:22)
[2021-09-21] MEDS: PIPERACILLIN-TAZOBACTAM 3.375 GM in SODIUM CHLORIDE 0.9% 100 ML IVPB SCH ×2 (08:02→21:22)
--- NOTE | 2021-09-21 08:47 | P.PN ---
Subjective Progress Note Date: 09/21/21 09/21/2021, the patient is being seen for a follow-up. The patient remains postop day #4 following an open cholecystectomy for gangrenous cholecystitis. He remains intubated on a mechanical ventilator. This morning he is off sedation and the patient has been off sedation since 2:30 PM yesterday. He has not fully recovered his mentation and the patient is more active yet not arousable. He is not following any commands yet. We have kept him off sedation nontender the patient is still comfortable on a mechanical ventilator. He has become slightly more tachycardic. Hemodynamically stable on no pressors. This morning he is on assist-control mode of mechanical ventilation at the rate of 12 with either volume of 415 and FiO2 of 30% with a PEEP of 5. S x-ray shows improvement in the left lung aeration. The patient had some left lower lobe atelectatic changes and consolidation. Note that this is the same lung that he had an extensive pneumonia in the past requiring multiple bronchoscopies. ET tube is in a good location. OG tube is in a good location and the patient has a left IJ triple-lumen catheter in place. No significant orotracheal secretions. Peak airway pressures around 29. Blood gases from today shows a pH of 7.44 with a pCO2 of 40 and pO2 of 74. Unfortunately, there is another drop in hemoglobin down to 5.7. Note that the hemoglobin dropped earlier postop shoe 5.9. He was given a total of 2 units of packed RBC and hemoglobin came up to 7.1 and later on to 7.4 and he dropped down to 5.7. There was some minimal amount of blood oozing from the surgical wound, however I do not think this accounts for the significant drop in hemoglobin. His platelet count is at 293. The patient's creatinine today is improved and is currently down to 2.29 with a BUN of 17 and the sodium level of 138. Stool for blood is positive. Clinically however, we have not with the any GI bleed. He remains on IV Zosyn. He is on NovoLog sliding scale coverage. He remains on Lovenox 30 mg subcu for DVT prophylaxis. Patient did have a bowel movement this morning. I witnessed the bowel movement was brown and I do not see any melanotic stool. Meanwhile, the patient has a GRETCHEN drain output has been in the order of 20 mL since 8 hours. Output is bloody. Objective - Vital Signs Vital signs: Vital Signs Temp 99.1 F 09/21/21 08:00 Pulse 118 H 09/21/21 08:00 Resp 16 09/21/21 08:00 BP 89/47 09/21/21 08:00 Pulse Ox 96 09/21/21 08:00 Intake & Output 09/20/21 09/21/21 09/21/21 18:59 06:59 18:59 Intake Total 4278.221 5393 100 Output Total 3020 0 0 Balance -5532.262 2948 100 Weight 130 kg Intake: IV 1025 700 100 Dextrose 5% in Water 1, 225 000 ml @ 75 mls/hr IV . [id number] [facility] with Sodium Bicarb (1 Meq/ml) 100 ml Rx#:[id number] Piperacillin-Tazobactam 3 100 100 .375 gm In Sodium Chloride 0.9% 100 ml @ 25 mls/hr IVPB Q12HR [facility] Rx #:[id number] Potassium Chloride 20 meq 300 In Water For Injection 1 100ml.bag @ 50 mls/hr IVPB Q2H [facility] Rx#: [id number] Sodium Chloride 0.9% 1, 400 600 100 000 ml @ 50 mls/hr IV . Q20H [facility] Rx#:[id number] Intake, IV Titration 337.491 Amount Norepinephrine 32 mg In 72.031 Sodium Chloride 0.9% 218 ml @ 0.05 MCG/KG/MIN 3. 047 mls/hr IV .Q24H [facility] Rx#:[id number] propofoL 1,000 mg In 265.460 Empty Bag 1 bag @ 5 MCG/ KG/MIN 3.9 mls/hr IV . Q24H [facility] Rx#:[id number] Tube Feeding 80 292 0 Other 30 90 Output: Urine 20 0 0 Hemodialysis 3000 Other: Voiding Method Indwelling Catheter Indwelling Catheter # Bowel Movements 1 ABP, PAP, CO, CI - Last Documented Arterial Blood Pressure 108/55 - Exam No acute distress, sedated, with an orally placed endotracheal tube and NG tube. The patient remains intubated on a mechanical ventilator. The patient is calm and comfortable, off propofol. Head exam was generally normal. There was no scleral icterus or corneal arcus. Mucous membranes were moist. HEENT examination is grossly unremarkable. Neck supple. Full range of motion. No adenopathy thyromegaly or neck vein distention. Cardiovascular examination reveals regular rhythm rate. S1-S2 normal. No S3 or S4. No discernible murmur noted. Heart sounds are distant. Lungs reveal scattered bilateral rhonchi. No wheezes or crackles. Breath sounds equal bilaterally. Saturations are 98%. Abdomen soft, without bowel sounds. Extremities are intact. No cyanosis clubbing or edema. Skin is without rash or lesion. Neurologic examination cannot be assessed as the patient's currently sedated. - Labs CBC & Chem 7: 09/21/21 04:40 09/21/21 04:40 Labs: Abnormal Lab Results - Last 24 Hours (Table) 09/19/21 09/20/21 09/20/21 Range/Units 06:10 11:38 11:58 WBC 12.5 H (3.8-10.6) k/uL RBC 2.52 L (4.30-5.90) m/uL Hgb 7.4 L (13.0-17.5) gm/dL Hct 22.5 L (39.0-53.0) % RDW 16.9 H (11.5-15.5) % Neutrophils # 10.7 H (1.3-7.7) k/uL ABG pO2 (83-108) mmHg ABG HCO3 (21-25) mmol/L ABG Total CO2 (19-24) mmol/L Potassium (3.5-5.1) mmol/L Chloride (98-107) mmol/L Creatinine (0.66-1.25) mg/dL Glucose (74-99) mg/dL POC Glucose (mg/dL) 138 H (75-99) mg/dL Calcium (8.4-10.2) mg/dL Total Protein (6.3-8.2) g/dL Albumin (3.5-5.0) g/dL Crossmatch See Detail 09/20/21 09/21/21 09/21/21 Range/Units 17:39 00:03 04:40 WBC (3.8-10.6) k/uL RBC 1.94 L (4.30-5.90) m/uL Hgb 5.7 L* D (13.0-17.5) gm/dL Hct 17.6 L* (39.0-53.0) % RDW 16.7 H (11.5-15.5) % Neutrophils # (1.3-7.7) k/uL ABG pO2 (83-108) mmHg ABG HCO3 (21-25) mmol/L ABG Total CO2 (19-24) mmol/L Potassium (3.5-5.1) mmol/L Chloride (98-107) mmol/L Creatinine (0.66-1.25) mg/dL Glucose (74-99) mg/dL POC Glucose (mg/dL) 146 H 135 H (75-99) mg/dL Calcium (8.4-10.2) mg/dL Total Protein (6.3-8.2) g/dL Albumin (3.5-5.0) g/dL Crossmatch 09/21/21 09/21/21 Range/Units 04:40 05:43 WBC (3.8-10.6) k/uL RBC (4.30-5.90) m/uL Hgb (13.0-17.5) gm/dL Hct (39.0-53.0) % RDW (11.5-15.5) % Neutrophils # (1.3-7.7) k/uL ABG pO2 74 L (83-108) mmHg ABG HCO3 27 H (21-25) mmol/L ABG Total CO2 28 H (19-24) mmol/L Potassium 3.4 L (3.5-5.1) mmol/L Chloride 111 H (98-107) mmol/L Creatinine 2.29 H (0.66-1.25) mg/dL Glucose 138 H (74-99) mg/dL POC Glucose (mg/dL) (75-99) mg/dL Calcium 7.2 L (8.4-10.2) mg/dL Total Protein 3.6 L (6.3-8.2) g/dL Albumin 1.6 L (3.5-5.0) g/dL Crossmatch Assessment and Plan Plan: 1 acute gangrenous cholecystitis. The patient is post open cholecystectomy. The patient is postop day #4. The patient remains intubated on a mechanical ventilator. GRETCHEN drain is in place. The patient encountered postoperative anemia the patient was transfused with 3 units of packed RBCs and currently was at 7.1. Subsequently, the patient dropped her hemoglobin again down to 5.7 without any clear indication for GI bleed. Occult stool is positive for blood. Nevertheless, the stool was brown and non-melanotic. Surgical wound site is clean and the abdomen is soft and there is no bleeding from his GRETCHEN drain. As such, this drop in hemoglobin is to be further investigated. May need a CAT scan of the abdomen/pelvis. 2 acute kidney injury, under investigation. The patient was oliguric and the patient was acute hyperkalemic and did not respond to conventional treatments. The patient ultimately was started on hemodialysis and the physician was done yesterday and the patient is producing some urine output today the potassium level is improved. Also, the patient was taken off the bicarb drip and the patient is currently on normal saline infusion on today's evaluation, creatinine is down to 2.29 and the patient had him a dialysis with ultrafiltration 3 L of fluid was removed yesterday. Urine output currently is in a is less than 10 mL over the past 12 hours. No hemodialysis for today. 3 non-anion gap metabolic acidosis, recovered 4 acute hypoxic respiratory failure, still intubated on a mechanical ventilator and a chest x-ray showing some left basilar effusion/atelectasis 5 hypotension and sinus tachycardia, could be related to underlying infection/sepsis, currently under investigation, currently normotensive. The patient continues to have a overall many units of blood. component of sinus tachycardia. 6 morbid obesity with BMI 41.8 7 history of acute hypoxic respiratory failure was on a mechanical ventilation back in mid June 2021 with left lung collapse, post bronchoscopy 2 8 bronchial asthma 5 diabetes mellitus 10 hyperlipidemia 11 hypertension 12 obstructive sleep apnea maintained on CPAP therapy 13 BPH 14 acute on chronic blood loss anemia, expected of the surgery and the patient and the patient had a subsequent drop in hemoglobin down to 5.7. Plan no hemodialysis today CT of abdomen/pelvis Change the patient IV fluids of normal saline at the rate of 50 mL an hour Continued IV Zosyn The patient is currently off pressors The patient was weaned off the sedation he was able to follow simple commands. Nevertheless, with ongoing investigation regarding his anemia, I would rather keep him on a low dose of propofol specially if he is going to go and undergo a CAT scan of the abdomen and pelvis. Monitor the output from the GRETCHEN drain Monitor surgical wound Monitor the hemoglobin level, transfuse a unit of packed RBC Hold Lovenox The patient was ordered is started on vital high protein at the rate of 10 mL an hour We'll continue to follow comorbidities. Not ready for any further weaning at this point in time. The patient will have a permacath insertion today. We'll investigated anemia. We'll given units of packed RBC. Monitor hemoglobin. Discussed the case with general surgery. Not ready for weaning at this point in time. There is a critically care evaluation that was done and more than 30 minutes. Time with Patient: Greater than 30
--- NOTE | 2021-09-21 09:07 | P.PN ---
Subjective Patient is seen in follow-up for acute kidney injury, currently hemodialysis dependent. Started on hemodialysis 09/12/2021. Off Levophed. Oliguric. On normal saline. Possibly going for permacath placement today. Intubated. Vital signs are stable. Off Levophed. General: Intubated. LUNGS: Breath sounds decreased. HEART: Tachycardic. ABDOMEN: Soft, no distention. EXTREMITITES: 1+ edema. Objective - Vital Signs Vital signs: Vital Signs Temp 99.1 F 09/21/21 08:00 Pulse 118 H 09/21/21 08:00 Resp 16 09/21/21 08:00 BP 89/47 09/21/21 08:00 Pulse Ox 96 09/21/21 08:00 Intake & Output 09/20/21 09/21/21 09/21/21 18:59 06:59 18:59 Intake Total 4215.489 5357 100 Output Total 3020 0 0 Balance -8005.619 3585 100 Weight 130 kg Intake: IV 1025 700 100 Dextrose 5% in Water 1, 225 000 ml @ 75 mls/hr IV . [id number] [facility] with Sodium Bicarb (1 Meq/ml) 100 ml Rx#:[id number] Piperacillin-Tazobactam 3 100 100 .375 gm In Sodium Chloride 0.9% 100 ml @ 25 mls/hr IVPB Q12HR [facility] Rx #:[id number] Potassium Chloride 20 meq 300 In Water For Injection 1 100ml.bag @ 50 mls/hr IVPB Q2H [facility] Rx#: [id number] Sodium Chloride 0.9% 1, 400 600 100 000 ml @ 50 mls/hr IV . Q20H [facility] Rx#:[id number] Intake, IV Titration 337.491 Amount Norepinephrine 32 mg In 72.031 Sodium Chloride 0.9% 218 ml @ 0.05 MCG/KG/MIN 3. 047 mls/hr IV .Q24H [facility] Rx#:[id number] propofoL 1,000 mg In 265.460 Empty Bag 1 bag @ 5 MCG/ KG/MIN 3.9 mls/hr IV . Q24H [facility] Rx#:[id number] Tube Feeding 80 292 0 Other 30 90 Output: Urine 20 0 0 Hemodialysis 3000 Other: Voiding Method Indwelling Catheter Indwelling Catheter # Bowel Movements 1 ABP, PAP, CO, CI - Last Documented Arterial Blood Pressure 108/55 - Labs CBC & Chem 7: 09/21/21 04:40 09/21/21 04:40 Labs: Abnormal Lab Results - Last 24 Hours (Table) 09/19/21 09/20/21 09/20/21 Range/Units 06:10 11:38 11:58 WBC 12.5 H (3.8-10.6) k/uL RBC 2.52 L (4.30-5.90) m/uL Hgb 7.4 L (13.0-17.5) gm/dL Hct 22.5 L (39.0-53.0) % RDW 16.9 H (11.5-15.5) % Neutrophils # 10.7 H (1.3-7.7) k/uL ABG pO2 (83-108) mmHg ABG HCO3 (21-25) mmol/L ABG Total CO2 (19-24) mmol/L Potassium (3.5-5.1) mmol/L Chloride (98-107) mmol/L Creatinine (0.66-1.25) mg/dL Glucose (74-99) mg/dL POC Glucose (mg/dL) 138 H (75-99) mg/dL Calcium (8.4-10.2) mg/dL Total Protein (6.3-8.2) g/dL Albumin (3.5-5.0) g/dL Crossmatch See Detail 09/20/21 09/21/21 09/21/21 Range/Units 17:39 00:03 04:40 WBC (3.8-10.6) k/uL RBC 1.94 L (4.30-5.90) m/uL Hgb 5.7 L* D (13.0-17.5) gm/dL Hct 17.6 L* (39.0-53.0) % RDW 16.7 H (11.5-15.5) % Neutrophils # (1.3-7.7) k/uL ABG pO2 (83-108) mmHg ABG HCO3 (21-25) mmol/L ABG Total CO2 (19-24) mmol/L Potassium (3.5-5.1) mmol/L Chloride (98-107) mmol/L Creatinine (0.66-1.25) mg/dL Glucose (74-99) mg/dL POC Glucose (mg/dL) 146 H 135 H (75-99) mg/dL Calcium (8.4-10.2) mg/dL Total Protein (6.3-8.2) g/dL Albumin (3.5-5.0) g/dL Crossmatch 09/21/21 09/21/21 Range/Units 04:40 05:43 WBC (3.8-10.6) k/uL RBC (4.30-5.90) m/uL Hgb (13.0-17.5) gm/dL Hct (39.0-53.0) % RDW (11.5-15.5) % Neutrophils # (1.3-7.7) k/uL ABG pO2 74 L (83-108) mmHg ABG HCO3 27 H (21-25) mmol/L ABG Total CO2 28 H (19-24) mmol/L Potassium 3.4 L (3.5-5.1) mmol/L Chloride 111 H (98-107) mmol/L Creatinine 2.29 H (0.66-1.25) mg/dL Glucose 138 H (74-99) mg/dL POC Glucose (mg/dL) (75-99) mg/dL Calcium 7.2 L (8.4-10.2) mg/dL Total Protein 3.6 L (6.3-8.2) g/dL Albumin 1.6 L (3.5-5.0) g/dL Crossmatch Assessment and Plan Plan: Assessment: 1. Acute kidney injury secondary to ATN secondary to hypotension. Creatinine was 0.77 on 08/10/2021. Patient started on hemodialysis in 09/12/2021 due to persistent hyperkalemia. Patient has a right groin catheter. Oliguric. 2. Hyperkalemia secondary to acute kidney injury, acidosis and use of JENSEN inhibitor prior to admission. Improved postdialysis. Now hypokalemic and being replaced. 3. Metabolic acidosis secondary to acute kidney injury. Improved. 4. Acute cholecystitis with gangrenous bladder status post open cholecystectomy on 09/17/2021. 5. Acute hypoxic respiratory failure. Currently intubated. 6. Acute blood loss anemia. Hemoglobin 5.7 today. No active bleeding noted. Scheduled to receive blood today. Plan: Hemodialysis tomorrow. Wean FiO2. Maintain normal saline at 50 mL an hour. Hep-Lock fluids once tube feed resumed and at goal. Avoid nephrotoxins. Continue to monitor renal function and urine output. Possible permacath today. Potassium being replaced. Need to be cautious as patient is oliguric. 1 dose IV DDAVP today. Add Aranesp.
[2021-09-21] MEDS ORDERED: DESMOPRESSIN ACETATE 28 MCG in SODIUM CHLORIDE 0.9% 50 ML IVPB ONE (09:45)
[2021-09-21 11:48] LABS: Glucose,Whole Blood 155 mg/dL (75-99)
--- NOTE | 2021-09-21 12:18 | XR ---
EXAMINATION TYPE: XR chest 1V portable DATE OF EXAM: 09/21/2021 Comparison: 09/21/2021 Clinical History: 61-year-old male ET tube placement Findings: ET tube has been pulled back slightly and tip is now at the medial clavicular heads. Left CVC tip at the lower SVC. Patient rotated towards the left. Heart limits of normal in size. [id number] le ft pleural effusion which has slightly increased in the interval. Adjacent left basilar opacity. NG t ube courses below the diaphragm. Impression: 1. ET tube appears to have been slightly pulled back, tip now at the medial clavicular heads. Attenti on on follow-up. 2. Rotated exam. Moderate left effusion with adjacent atelectasis and/or consolidation may be slightl y increased.
--- NOTE | 2021-09-21 13:45 | P.PN ---
<Sherry Robbins - Last Filed: 09/21/21 13:39> Subjective Progress Note Date: 09/21/21 CHIEF COMPLAINT: Abdominal pain HISTORY OF PRESENT ILLNESS: Patient remains in the ICU and remains intubated. He is postop day #4 status post open cholecystectomy for acute gangrenous cholecystitis with transmural necrosis of gallbladder wall. Dr. Gonzalez did add a another suture to patient's surgical incision due to bleeding at the lateral aspect of the incision and evidence of a single bleeding vessel along the dermal layer. Patient has compression dressing. No evidence of shadowing. The dressing is clean and dry. Patient has GRETCHEN drain in place with serosanguineous output 20 mL this morning. Patient did have a drop in his hemoglobin down to 5.7. He is receiving a unit of blood. And is scheduled for computed tomography scan of the abdomen and pelvis this afternoon. He did have a brown bowel movement. Tube feeds are currently on hold until CAT scan completed. Afebrile. Remains tachycardic. WBC 9.2 hemoglobin 5.7 platelets 293 sodium 13 potassium 3.4 creatinine 2.29 PHYSICAL EXAM: VITAL SIGNS: Reviewed. GENERAL: Intubated HEENT: Moist buccal mucosa. Head is atraumatic, normocephalic. ABDOMEN: Soft. Nondistended. Compression incisional dressing clean dry and intact ASSESSMENT: 1. Acute gangrenous cholecystitis status post open cholecystectomy 2. Acute kidney injury requiring hemodialysis 3. Anemia PLAN: -Continue ICU management -Continue supportive care -Follow up on computed tomography scan abdomen and pelvis results -Continue antibiotics -Continue to monitor incision site closely -Further recommendations forthcoming per surgeon Physician Log Data Technician note has been reviewed by physician. Signing provider agrees with the documented findings, assessment, and plan of care. Objective - Vital Signs Vital signs: Vital Signs Temp 98.8 F 09/21/21 10:01 Pulse 114 H 09/21/21 11:00 Resp 19 09/21/21 11:00 BP 117/50 09/21/21 10:01 Pulse Ox 96 09/21/21 11:00 Intake & Output 09/20/21 09/21/21 09/21/21 18:59 06:59 18:59 Intake Total 8756.799 0360 250 Output Total 3020 0 50 Balance -8668.157 0276 200 Weight 130 kg Intake: IV 1025 700 250 Dextrose 5% in Water 1, 225 000 ml @ 75 mls/hr IV . [id number] [facility] with Sodium Bicarb (1 Meq/ml) 100 ml Rx#:[id number] Piperacillin-Tazobactam 3 100 100 .375 gm In Sodium Chloride 0.9% 100 ml @ 25 mls/hr IVPB Q12HR [facility] Rx #:[id number] Potassium Chloride 20 meq 300 In Water For Injection 1 100ml.bag @ 50 mls/hr IVPB Q2H [facility] Rx#: [id number] Sodium Chloride 0.9% 1, 400 600 250 000 ml @ 50 mls/hr IV . Q20H [facility] Rx#:[id number] Intake, IV Titration 337.491 0 Amount Norepinephrine 32 mg In 72.031 Sodium Chloride 0.9% 218 ml @ 0.05 MCG/KG/MIN 3. 047 mls/hr IV .Q24H [facility] Rx#:[id number] propofoL 1,000 mg In 265.460 0 Empty Bag 1 bag @ 5 MCG/ KG/MIN 3.9 mls/hr IV . Q24H [facility] Rx#:[id number] Tube Feeding 80 292 0 Blood Product 0 Rc As-1 Unit 0 [id number] Other 30 90 Output: Drainage 40 Right Abdomen 40 Urine 20 0 10 Hemodialysis 3000 Other: Voiding Method Indwelling Catheter Indwelling Catheter Indwelling Catheter # Bowel Movements 1 ABP, PAP, CO, CI - Last Documented Arterial Blood Pressure 127/48 - Labs CBC & Chem 7: 09/21/21 04:40 09/21/21 04:40 Labs: Abnormal Lab Results - Last 24 Hours (Table) 09/19/21 09/20/21 09/20/21 Range/Units 06:10 11:38 11:58 WBC 12.5 H (3.8-10.6) k/uL RBC 2.52 L (4.30-5.90) m/uL Hgb 7.4 L (13.0-17.5) gm/dL Hct 22.5 L (39.0-53.0) % RDW 16.9 H (11.5-15.5) % Neutrophils # 10.7 H (1.3-7.7) k/uL ABG pO2 (83-108) mmHg ABG HCO3 (21-25) mmol/L ABG Total CO2 (19-24) mmol/L Potassium (3.5-5.1) mmol/L Chloride (98-107) mmol/L Creatinine (0.66-1.25) mg/dL Glucose (74-99) mg/dL POC Glucose (mg/dL) 138 H (75-99) mg/dL Calcium (8.4-10.2) mg/dL Total Protein (6.3-8.2) g/dL Albumin (3.5-5.0) g/dL Crossmatch See Detail 09/20/21 09/21/21 09/21/21 Range/Units 17:39 00:03 04:40 WBC (3.8-10.6) k/uL RBC 1.94 L (4.30-5.90) m/uL Hgb 5.7 L* D (13.0-17.5) gm/dL Hct 17.6 L* (39.0-53.0) % RDW 16.7 H (11.5-15.5) % Neutrophils # (1.3-7.7) k/uL ABG pO2 (83-108) mmHg ABG HCO3 (21-25) mmol/L ABG Total CO2 (19-24) mmol/L Potassium (3.5-5.1) mmol/L Chloride (98-107) mmol/L Creatinine (0.66-1.25) mg/dL Glucose (74-99) mg/dL POC Glucose (mg/dL) 146 H 135 H (75-99) mg/dL Calcium (8.4-10.2) mg/dL Total Protein (6.3-8.2) g/dL Albumin (3.5-5.0) g/dL Crossmatch 09/21/21 09/21/21 Range/Units 04:40 05:43 WBC (3.8-10.6) k/uL RBC (4.30-5.90) m/uL Hgb (13.0-17.5) gm/dL Hct (39.0-53.0) % RDW (11.5-15.5) % Neutrophils # (1.3-7.7) k/uL ABG pO2 74 L (83-108) mmHg ABG HCO3 27 H (21-25) mmol/L ABG Total CO2 28 H (19-24) mmol/L Potassium 3.4 L (3.5-5.1) mmol/L Chloride 111 H (98-107) mmol/L Creatinine 2.29 H (0.66-1.25) mg/dL Glucose 138 H (74-99) mg/dL POC Glucose (mg/dL) (75-99) mg/dL Calcium 7.2 L (8.4-10.2) mg/dL Total Protein 3.6 L (6.3-8.2) g/dL Albumin 1.6 L (3.5-5.0) g/dL Crossmatch <Harshil Gonzalez - Last Filed: 09/21/21 16:09> Subjective I have personally seen and examined the patient, reviewed the [employer] PROCESSING TECHNICIAN /PAs history, e xam and MDM and agree with the assessment and plan as written. Based on total visit time, I have performed more than 50% of the visit. As above: Patient seems to be doing better today. No bleeding from his incision. CAT scan shows no obvious intra-abdominal bleeding or sizable fluid collection. Keep GRETCHEN drain in place. Continue local wound care. Continue antibiotics. Objective - Vital Signs Vital signs: Vital Signs Temp 98.8 F 09/21/21 12:00 Pulse 114 H 09/21/21 15:36 Resp 20 09/21/21 15:00 BP 117/50 09/21/21 10:01 Pulse Ox 99 09/21/21 15:00 Intake & Output 09/20/21 09/21/21 09/21/21 18:59 06:59 18:59 Intake Total 1402.317 3073 912.52 Output Total 3020 0 270 Balance -9756.103 7874 642.52 Weight 130 kg Intake: IV 1025 700 450 Dextrose 5% in Water 1, 225 000 ml @ 75 mls/hr IV . [id number] [facility] with Sodium Bicarb (1 Meq/ml) 100 ml Rx#:[id number] Piperacillin-Tazobactam 3 100 100 .375 gm In Sodium Chloride 0.9% 100 ml @ 25 mls/hr IVPB Q12HR [facility] Rx #:[id number] Potassium Chloride 20 meq 300 In Water For Injection 1 100ml.bag @ 50 mls/hr IVPB Q2H [facility] Rx#: [id number] Sodium Chloride 0.9% 1, 400 600 450 000 ml @ 50 mls/hr IV . Q20H [facility] Rx#:[id number] Intake, IV Titration 337.491 152.52 Amount Norepinephrine 32 mg In 72.031 Sodium Chloride 0.9% 218 ml @ 0.05 MCG/KG/MIN 3. 047 mls/hr IV .Q24H [facility] Rx#:[id number] propofoL 1,000 mg In 265.460 152.52 Empty Bag 1 bag @ 5 MCG/ KG/MIN 3.9 mls/hr IV . Q24H [facility] Rx#:[id number] Tube Feeding 80 292 0 Blood Product 310 Rc As-1 Unit 310 [id number] Other 30 90 Output: Drainage 160 Right Abdomen 160 Urine 20 0 110 Hemodialysis 3000 Other: Voiding Method Indwelling Catheter Indwelling Catheter Indwelling Catheter # Bowel Movements 1 ABP, PAP, CO, CI - Last Documented Arterial Blood Pressure 120/52 - Labs CBC & Chem 7: 09/21/21 14:52 09/21/21 04:40 Labs: Abnormal Lab Results - Last 24 Hours (Table) 09/19/21 09/20/21 09/21/21 Range/Units 06:10 17:39 00:03 WBC (3.8-10.6) k/uL RBC (4.30-5.90) m/uL Hgb (13.0-17.5) gm/dL Hct (39.0-53.0) % RDW (11.5-15.5) % ABG pO2 (83-108) mmHg ABG HCO3 (21-25) mmol/L ABG Total CO2 (19-24) mmol/L Potassium (3.5-5.1) mmol/L Chloride (98-107) mmol/L Creatinine (0.66-1.25) mg/dL Glucose (74-99) mg/dL POC Glucose (mg/dL) 146 H 135 H (75-99) mg/dL Calcium (8.4-10.2) mg/dL Total Protein (6.3-8.2) g/dL Albumin (3.5-5.0) g/dL Crossmatch See Detail 09/21/21 09/21/21 09/21/21 Range/Units 04:40 04:40 05:43 WBC (3.8-10.6) k/uL RBC 1.94 L (4.30-5.90) m/uL Hgb 5.7 L* D (13.0-17.5) gm/dL Hct 17.6 L* (39.0-53.0) % RDW 16.7 H (11.5-15.5) % ABG pO2 74 L (83-108) mmHg ABG HCO3 27 H (21-25) mmol/L ABG Total CO2 28 H (19-24) mmol/L Potassium 3.4 L (3.5-5.1) mmol/L Chloride 111 H (98-107) mmol/L Creatinine 2.29 H (0.66-1.25) mg/dL Glucose 138 H (74-99) mg/dL POC Glucose (mg/dL) (75-99) mg/dL Calcium 7.2 L (8.4-10.2) mg/dL Total Protein 3.6 L (6.3-8.2) g/dL Albumin 1.6 L (3.5-5.0) g/dL Crossmatch 09/21/21 09/21/21 Range/Units 11:45 14:52 WBC 11.0 H (3.8-10.6) k/uL RBC 2.44 L (4.30-5.90) m/uL Hgb 7.1 L (13.0-17.5) gm/dL Hct 22.0 L (39.0-53.0) % RDW 17.1 H (11.5-15.5) % ABG pO2 (83-108) mmHg ABG HCO3 (21-25) mmol/L ABG Total CO2 (19-24) mmol/L Potassium (3.5-5.1) mmol/L Chloride (98-107) mmol/L Creatinine (0.66-1.25) mg/dL Glucose (74-99) mg/dL POC Glucose (mg/dL) 155 H (75-99) mg/dL Calcium (8.4-10.2) mg/dL Total Protein (6.3-8.2) g/dL Albumin (3.5-5.0) g/dL Crossmatch Assessment and Plan (1) Acute gangrenous cholecystitis Current Visit: Yes Status: Acute Code(s): K81.0 - ACUTE CHOLECYSTITIS SNOMED Code(s): 99975434
--- NOTE | 2021-09-21 13:50 | CT ---
EXAMINATION TYPE: CT abdomen pelvis wo con DATE OF EXAM: 09/21/2021 HISTORY: Anemia, recent cholecystectomy. CT DLP: 2543.2 mGycm. Automated Exposure Control for Dose Reduction was Utilized. TECHNIQUE: CT scan of the abdomen and pelvis is performed without oral or IV contrast. COMPARISON: NONE FINDINGS: Within the limitations of a non-contrast study, the following observations are made. Exam suboptimal due to artifact from overlying upper extremities. LUNG BASES: Small bilateral pleural effusions are partially imaged. Heart size upper limits of normal . LIVER/GB: Small amount of fluid surrounds the liver. Small amount of free air anterior to the liver a xial image 27. There is percutaneous right-sided drainage catheter terminating anterior superior to t he gallbladder fossa axial image 24. There is ill-defined fluid and free air at the level of the gall bladder fossa. No biliary dilatation identified. PANCREAS: Mild to moderate generalized fat replaced atrophy. SPLEEN: Small amount of surrounding ascites. ADRENALS: No significant abnormality is seen. KIDNEYS: No renal stones or hydronephrosis. The Smith catheter decompresses bladder. BOWEL: Suboptimal evaluation without enteric contrast. Nasogastric tube decompresses stomach terminat ing in the antrum. Poor separation of the second portion of duodenum from the gallbladder fossa. No a bnormal small or large bowel dilatation. GENITAL ORGANS: Prostate not enlarged. LYMPH NODES: No greater than 1cm abdominal or pelvic lymph nodes are appreciated. OSSEOUS STRUCTURES: Moderate to severe disc space narrowing lumbosacral junction. Mild to moderate di sc. Vacuum disc phenomenon L4-L5 level. OTHER: Small to moderate amount of diffuse soft tissue fluid or anasarca seen bilaterally. Stent mckay ts in the bilateral common iliac arteries are felt Present. Small amount of free fluid within the lef t paracolic and infracolic gutter. IMPRESSION: Suboptimal study. Expected changes from cholecystectomy noted. Percutaneous drainage cath eter goes through gallbladder fossa terminating more in the midline anterior and superior to the gall bladder fossa. Consider retracting if there are not side ports for drainage. Ill-defined fluid and ai r at level of gallbladder fossa is nonspecific favor product of recent surgery. Soft tissue anasarca along with small bilateral pleural effusions and mild amount of intra-abdominal ascites presumed prod uct of desired fluid overload state.
[2021-09-21 15:01] LABS: Anisocytosis Slight; HGB 7.1 gm/dL (13.0-17.5); Hypochromasia Slight; MCH 29.2 pg (25.0-35.0); MCHC 32.3 g/dL (31.0-37.0); MCV 90.4 fL (80.0-100.0); Mean Platelet Volume 7.2; Platelet Count 306 k/uL (150-450); RBC 2.44 m/uL (4.30-5.90); RDW 17.1 % (11.5-15.5)
[2021-09-21] MEDS: DARBEPOETIN ALFA 40 MCG/0.4 ML SYRINGE SQ SCH (15:54)
[2021-09-21] MEDS: NOREPINEPHRINE 32 MG in SODIUM CHLORIDE 0.9% 218 ML IV SCH (16:23)
[2021-09-21 17:42] LABS: Glucose,Whole Blood 107 mg/dL (75-99)
[2021-09-21] MEDS: GABAPENTIN 100 MG CAP PO SCH (21:22)
--- NOTE | 2021-09-21 23:31 | P.PN ---
Subjective Progress Note Date: 09/20/21 This is a 61-year-old patient, follows with Dr. Seda Schneider. Chronic stable medical conditions include diabetes, , hyperlipidemia, obstructive sleep apnea uses CPAP, herniated disc / injections,. Patient was in the hospital from 06/26/2021 through July 16 Admitted with pneumonia, severe hypothermia, acute hypoxic respiratory failure, possible sepsis, possible acute congestive heart failure exacerbation. Was intubated. Was discharged on intermittent BiPAP. [place] to have possible viral pneumonitis. Was negative for COVID. Was discharged to rehab. At the rehab patient had a poor appetite. Not really able to walk. Patient was at melter clerk up as found a very low blood pressure. Admitted. Denies any fever and chills. Actually eating better here. Has been having daily bowel mov ements. Occasional diarrhea. Does feel tired and rundown. Admitted with severe hypotension, acute kidney injury, hypoglycemia. Diuretics were held. IV hydration. PTOT. September 11: Lasted patient abdominal pain. Abdominal x-ray unremarkable. Surgery consulted. Patient's is present. Appetite is actually getting better. Continue IV fluids. Renal function worsening. Start bicarbonate drip. Coughing up some yellow sputum. Add doxycycline for acute bronchitis. Check creatinine kinase. Rule out rhabdomyolysis. September 12: Patient potassium persisted to be high yesterday. In spite of having several medications. Moved to the ICU. Nephrology consulted. Dialysis catheter was placed and patient received hemodialysis late last night. Poor appetite. Tired. Seen by psychiatry. [place] to have adjustment disorder. September 13: ICU: Tired and sleepy. Barely eating. I reviewed medications. Patient on Neurontin in the setting of acute kidney injury this can cause the patient to be lethargic. Cut back on the dose. Dialysis today. About half a liter removed. IV Zosyn. September 14: Patient started on Marinol yesterday. Still appetite is poor. Pharyngeal hygiene not good. Discussed with the nurse to get it clean. Including saltwater gargle. Patient bit more awake after cutting back dose of Neurontin. On IV Zosyn. September 15: Patient not really eating. Neurontin cutback 200 mg daily at bedtime. Reminded nurse about pharyngeal tolerate. Not much urine output. IV fluids increased to 130 mL an hour. Hypoglycemic. DC Lantus. September 16: Patient does complain of feeling depressed. Not eating. Patient was reevaluated by psychiatry. [place] to be adjustment disorder. Patient does not have any pain in the lower extremity except on movement. cutback Requip. .25 mg daily at bedtime. It is cleared through the renal route. Getting a neurological evaluation. The unlikely will check patient's ammonia level. Also spoke to the about possible feeding tube. Given poor oral intake. Patient only eating a few bites here and there September 17: Patient taken to the OR. Dr. Renetta Santillan the patient's found to have a gangrenous gallbladder. GRETCHEN drain. Patient taken to the ICU postprocedure. On the ventilator. IV propofol. Spoke to patient's family including the at the bedside. Subjective: 09/18/2021 Patient with gangrenous cholecystitis status post cholecystectomy on 09/17, Today is postoperative day #1, after that he was admitted to the ICU with sepsis and hypotension which is improving now, he is currently intubated and sedated. Also has been started for hemodialysis regarding his acute kidney injury. Neurologist on the case for his metabolic/toxic encephalopathy. Patient is not febrile. Still tachycardic and tachypneic WBC 11.8, hemoglobin 8.2, platelet count 513 Potassium 5.9, creatinine 5.7, liver enzymes slightly elevated AST 79 with nor mal ALT 47 and bilirubin 1.3. Serum cortisol is 20 Chest x-ray from today showing some pleural reaction and atelectasis at the lung bases. There is clearing of pulmonary edema to a large extent compared to old exam earlier today Currently he is on pressors and taken Zosyn as well. 09/19/2021 Patient remains in the ICU intubated and sedated with pulmonary/critical care team following him closely.patient is getting interrupteds sedation His WBC is improved 9.1, hemoglobin was low at 5.9. Sodium 135, potassium 3.1, creatinine 3.9, glucose control. Chest x-ray: Show no change Patient is getting blood transfusion today, most likely patient has oozing from the surgical site. Also JVD drain with serosanguineous fluid 09/20/2021 Patient is in the MICU and on mechanical ventilator. Underwent open cholecystectomy for gangrenous acute cholecystitis. Postoperative day #3. Patient is on pressor support at lower dose and is on antibiotics in the form of Zosyn. Patient is also bicarb drip. Patient was also started on hemodialysis temporarily. Currently on mechanical ventilator with tidal volume 450, FiO2 30% and PEEP of 5. Laboratory data showed WBC 12.5 hemoglobin 7.4 and platelets 378, sodium 136 potassium 3.5 chloride 105 bicarb is 25 BUN 20 and creatinine 2.84 calcium 7.2. Nephrology and pulmonary is on board. Current medications reviewed. Objective - Vital Signs Vital signs: Vital Signs Temp 97.8 F 09/20/21 12:00 Pulse 130 H 09/20/21 14:00 Resp 23 09/20/21 14:00 BP 113/93 09/20/21 04:30 Pulse Ox 98 09/20/21 14:00 Intake & Output 09/19/21 09/20/21 09/20/21 18:59 06:59 18:59 Intake Total 2290.172 2000.295 1249.546 Output Total 5 0 15 Balance 2285.172 2000.295 1234.546 Weight 130 kg Intake: IV 1200 1200 825 Dextrose 5% in Water 1, 900 900 225 000 ml @ 75 mls/hr IV . [id number] ERINN with Sodium Bicarb (1 Meq/ml) 100 ml Rx#:[id number] Piperacillin-Tazobactam 3 100 100 100 .375 gm In Sodium Chloride 0.9% 100 ml @ 25 mls/hr IVPB Q12HR ERINN Rx #:[id number] Potassium Chloride 20 meq 200 200 300 In Water For Injection 1 100ml.bag @ 50 mls/hr IVPB Q2H ERINN Rx#: [id number] Sodium Chloride 0.9% 1, 200 000 ml @ 50 mls/hr IV . Q20H ERINN Rx#:[id number] Intake, IV Titration 470.172 391.295 334.546 Amount Norepinephrine 32 mg In 127.272 15.245 69.086 Sodium Chloride 0.9% 218 ml @ 0.05 MCG/KG/MIN 3. 047 mls/hr IV .Q24H ERINN Rx#:[id number] propofoL 1,000 mg In 342.9 376.05 265.460 Empty Bag 1 bag @ 5 MCG/ KG/MIN 3.9 mls/hr IV . Q24H ERINN Rx#:[id number] Tube Feeding 70 60 Blood Product 620 279 Rc As-1 Unit 310 [id number] Pheresis 2 As3 Unit 279 [id number] Other 60 30 Output: Urine 5 0 15 Other: Voiding Method Indwelling Catheter Indwelling Catheter Indwelling Catheter ABP, PAP, CO, CI - Last Documented Arterial Blood Pressure 120/50 - Exam - Exam -GENERAL: The patient is sedated and intubated HEENT: Pupils are round and equally reacting to light. EOMI. No scleral icterus. No conjunctival pallor. Normocephalic, atraumatic. No pharyngeal erythema. No t hyromegaly. CARDIOVASCULAR: S1 and S2 present. No murmurs, rubs, or gallops. PULMONARY: Chest is clear to auscultation, no wheezing or crackles. -ABDOMEN: Soft, , nondistended, normoactive bowel sounds. No palpable organomegaly. Surgical wound closed with dressing in place MUSCULOSKELETAL: No joint swelling or deformity. EXTREMITIES: No cyanosis, clubbing, or pedal edema. NEUROLOGICAL: Gross neurological examination did not reveal any focal deficits. SKIN: No rashes. no petechiae. - Labs CBC & Chem 7: 09/22/21 03:55 09/22/21 03:55 Labs: Abnormal Lab Results - Last 24 Hours (Table) 09/19/21 09/19/21 09/19/21 Range/Units 06:10 18:13 21:40 WBC (3.8-10.6) k/uL RBC (4.30-5.90) m/uL Hgb (13.0-17.5) gm/dL Hct (39.0-53.0) % RDW (11.5-15.5) % Neutrophils # (1.3-7.7) k/uL ABG HCO3 (21-25) mmol/L ABG Total CO2 (19-24) mmol/L ABG O2 Saturation (94-97) % Sodium (137-145) mmol/L Potassium 3.2 L (3.5-5.1) mmol/L Creatinine (0.66-1.25) mg/dL Glucose (74-99) mg/dL POC Glucose (mg/dL) 153 H (75-99) mg/dL Calcium (8.4-10.2) mg/dL Crossmatch See Detail 09/19/21 09/20/21 09/20/21 Range/Units 21:40 00:08 05:00 WBC 11.5 H (3.8-10.6) k/uL RBC 2.01 L 2.39 L (4.30-5.90) m/uL Hgb 5.9 L* 7.1 L (13.0-17.5) gm/dL Hct 17.8 L* 21.5 L (39.0-53.0) % RDW 17.1 H 16.3 H (11.5-15.5) % Neutrophils # 9.5 H (1.3-7.7) k/uL ABG HCO3 (21-25) mmol/L ABG Total CO2 (19-24) mmol/L ABG O2 Saturation (94-97) % Sodium (137-145) mmol/L Potassium (3.5-5.1) mmol/L Creatinine (0.66-1.25) mg/dL Glucose (74-99) mg/dL POC Glucose (mg/dL) 152 H (75-99) mg/dL Calcium (8.4-10.2) mg/dL Crossmatch 09/20/21 09/20/21 09/20/21 Range/Units 05:00 05:38 11:38 WBC (3.8-10.6) k/uL RBC (4.30-5.90) m/uL Hgb (13.0-17.5) gm/dL Hct (39.0-53.0) % RDW (11.5-15.5) % Neutrophils # (1.3-7.7) k/uL ABG HCO3 27 H (21-25) mmol/L ABG Total CO2 28 H (19-24) mmol/L ABG O2 Saturation 97.9 H (94-97) % Sodium 136 L (137-145) mmol/L Potassium (3.5-5.1) mmol/L Creatinine 2.84 H (0.66-1.25) mg/dL Glucose 163 H (74-99) mg/dL POC Glucose (mg/dL) 138 H (75-99) mg/dL Calcium 7.2 L (8.4-10.2) mg/dL Crossmatch 09/20/21 Range/Units 11:58 WBC 12.5 H (3.8-10.6) k/uL RBC 2.52 L (4.30-5.90) m/uL Hgb 7.4 L (13.0-17.5) gm/dL Hct 22.5 L (39.0-53.0) % RDW 16.9 H (11.5-15.5) % Neutrophils # 10.7 H (1.3-7.7) k/uL ABG HCO3 (21-25) mmol/L ABG Total CO2 (19-24) mmol/L ABG O2 Saturation (94-97) % Sodium (137-145) mmol/L Potassium (3.5-5.1) mmol/L Creatinine (0.66-1.25) mg/dL Glucose (74-99) mg/dL POC Glucose (mg/dL) (75-99) mg/dL Calcium (8.4-10.2) mg/dL Crossmatch Assessment and Plan Assessment: -Acute gangrenous cholecystitis status post cholecystectomy. On 09/17. Continue with postop care. -Severe sepsis and hypotension, with acute hypoxic respiratory failure, currently intubated and on pressors. With pulmonary/critical care team following closely. Also patient on Zosyn. -Chronic congestive heart failure. From diastolic dysfunction EF 55-60%: Hold diuretics for now -Acute blood loss anemia, requiring blood transfusion, most likely due was informed surgical site, follow-up hemoglobin -Acute kidney injury prerenal versus ATN: On renal replacement therapy on hemodialysis -Acute metabolic acidosis from worsening renal failure: -Acute severe hyperkalemia from metabolic acidosis: Better -Sinus tachycardia likely from sepsis -Anorexia multifactorial: Not improving Did not respond to Marinol. -Obesity BMI 34 -History of Adjustment disorder Seen by psychiatry. No medications. -Essential hypertension, currently blood pressure running low Hold off antihypertensive -History of Restless leg syndrome Requip .25 mg daily at bedtime -Diabetes mellitus type 2 on oral hypoglycemic, uncontrolled with hypoglycemia: Slow to respond Hold of oral hypoglycemic. Follow Accu-Cheks. -Hyperlipidemia Hold off Zocor because of muscle weakness -BPH Flomax 0.4 mg daily -COPD Advair 250/50 one puff twice a day. DuoNeb 4 times a day -Chronic medical debility from recent protracted hospitalization Patient eventually will need PTOT DVT prophylaxis: Lovenox on hold GI prophylaxis: Protonix Prognosis is guarded Time with Patient: Greater than 30
[2021-09-21 23:39] LABS: Glucose,Whole Blood 116 mg/dL (75-99)
[2021-09-22] MEDS: INSULIN ASPART (NovoLOG) 100 UNIT/ML VIAL SQ SCH ×5 (00:08→23:54)
[2021-09-22] MEDS: SODIUM CHLORIDE 0.9% 1,000 ML IV SCH (00:09)
[2021-09-22] MEDS: NOREPINEPHRINE 32 MG in SODIUM CHLORIDE 0.9% 218 ML IV SCH (00:35)
[2021-09-22] MEDS: IPRATROPIUM-ALBUTEROL 3 ML NEB INHALATION SCH ×5 (03:28→19:56)
[2021-09-22 04:22] LABS: Anisocytosis Slight; Basophils % (A) 0 %; Eosinophils # (A) 0.2 k/uL (0-0.7); Eosinophils % (A) 3 %; HCT 21.8 % (39.0-53.0); Hypochromasia Slight; Lymphocytes # (A) 1.1 k/uL (1.0-4.8); Lymphocytes % (A) 11 %; MCH 28.6 pg (25.0-35.0); MCV 92.3 fL (80.0-100.0); Mean Platelet Volume 7.6; Monocytes # (A) 0.3 k/uL (0-1.0); Monocytes % (A) 3 %; Neutrophils # (A) 7.7 k/uL (1.3-7.7); Neutrophils % (A) 82 %; Platelet Count 317 k/uL (150-450); RBC 2.36 m/uL (4.30-5.90); RDW 18.3 % (11.5-15.5); WBC 9.4 k/uL (3.8-10.6)
[2021-09-22 04:26] LABS: HGB 6.8 gm/dL (13.0-17.5)
[2021-09-22 04:35] LABS: Albumin 1.8 g/dL (3.5-5.0); Calcium 7.4 mg/dL (8.4-10.2); Potassium 3.6 mmol/L (3.5-5.1); Total Bilirubin 0.5 mg/dL (0.2-1.3); Total Protein 3.9 g/dL (6.3-8.2)
[2021-09-22 05:45] LABS: Glucose,Whole Blood 106 mg/dL (75-99)
[2021-09-22 06:06] LABS: ABG Base Excess 0.6 mmol/L; ABG HCO3 25 mmol/L (21-25); ABG Oxygen Saturation 98.5 % (94-97); ABG PCO2 39 mmHg (35-45); ABG PH 7.42 (7.35-7.45); ABG PO2 122 mmHg (83-108); ABG TCO2 26 mmol/L (19-24); Allen Test Performed? Yes
--- NOTE | 2021-09-22 08:33 | XR ---
EXAMINATION TYPE: XR chest 1V portable DATE OF EXAM: 09/22/2021 COMPARISON: Chest x-ray 09/21/2021 HISTORY: Intubated TECHNIQUE: Single frontal view of the chest is obtained. FINDINGS: Endotracheal tube and NG tube are overlying appropriate positions, there is a left jugular central venous catheter with the distal tip overlying the superior vena cava. Lung volumes are low, patient is rotated. Left hemidiaphragm remains obscured. No evident pneumothorax. Cardiac mediastinal silhouette likely stable. There are overlying artifacts. IMPRESSION: Left lower lobe atelectasis versus pneumonia and associated effusion. There may be under lying cardiomegaly.
--- NOTE | 2021-09-22 08:57 | P.PN ---
Subjective Patient is seen in follow-up for acute kidney injury, currently hemodialysis dependent. Started on hemodialysis 09/12/2021. Required Levophed temporarily overnight but currently off. Oliguric. On normal saline. Pcath placement pending. Intubated. Hemoglobin improved post blood transition. 6.8 today. No active bleeding. Vital signs are stable. Off Levophed. General: Intubated. LUNGS: Breath sounds decreased. HEART: Tachycardic. ABDOMEN: Soft, no distention. EXTREMITITES: 1+ edema. Objective - Vital Signs Vital signs: Vital Signs Temp 98.2 F 09/22/21 04:00 Pulse 104 H 09/22/21 07:00 Resp 13 09/22/21 07:00 BP 126/66 09/22/21 07:00 Pulse Ox 100 09/22/21 07:00 Intake & Output 09/21/21 09/22/21 09/22/21 18:59 06:59 18:59 Intake Total 1139.48 918.90 50 Output Total 370 120 0 Balance 769.48 798.90 50 Weight 151.953 kg Intake: IV 600 700 50 Piperacillin-Tazobactam 3 100 .375 gm In Sodium Chloride 0.9% 100 ml @ 25 mls/hr IVPB Q12HR ERINN Rx #:[id number] Sodium Chloride 0.9% 1, 600 600 50 000 ml @ 50 mls/hr IV . Q20H ERINN Rx#:[id number] Intake, IV Titration 229.48 218.90 Amount Norepinephrine 32 mg In 4.6 Sodium Chloride 0.9% 218 ml @ 0.05 MCG/KG/MIN 3. 047 mls/hr IV .Q24H ERINN Rx#:[id number] propofoL 1,000 mg In 229.48 214.30 Empty Bag 1 bag @ 5 MCG/ KG/MIN 3.9 mls/hr IV . Q24H ERINN Rx#:[id number] Tube Feeding 0 Blood Product 310 Rc As-1 Unit 310 [id number] Output: Drainage 260 110 Right Abdomen 260 110 Urine 110 10 0 Other: Voiding Method Indwelling Catheter Indwelling Catheter Indwelling Catheter # Bowel Movements 1 ABP, PAP, CO, CI - Last Documented Arterial Blood Pressure 132/50 - Labs CBC & Chem 7: 09/22/21 03:55 09/22/21 03:55 Labs: Abnormal Lab Results - Last 24 Hours (Table) 09/19/21 09/21/21 09/21/21 Range/Units 06:10 11:45 14:52 WBC 11.0 H (3.8-10.6) k/uL RBC 2.44 L (4.30-5.90) m/uL Hgb 7.1 L (13.0-17.5) gm/dL Hct 22.0 L (39.0-53.0) % RDW 17.1 H (11.5-15.5) % ABG pO2 (83-108) mmHg ABG Total CO2 (19-24) mmol/L ABG O2 Saturation (94-97) % Chloride (98-107) mmol/L BUN (9-20) mg/dL Creatinine (0.66-1.25) mg/dL Glucose (74-99) mg/dL POC Glucose (mg/dL) 155 H (75-99) mg/dL Calcium (8.4-10.2) mg/dL Total Protein (6.3-8.2) g/dL Albumin (3.5-5.0) g/dL Crossmatch See Detail 09/21/21 09/21/21 09/22/21 Range/Units 17:41 23:37 03:55 WBC (3.8-10.6) k/uL RBC 2.36 L (4.30-5.90) m/uL Hgb 6.8 L* (13.0-17.5) gm/dL Hct 21.8 L (39.0-53.0) % RDW 18.3 H (11.5-15.5) % ABG pO2 (83-108) mmHg ABG Total CO2 (19-24) mmol/L ABG O2 Saturation (94-97) % Chloride (98-107) mmol/L BUN (9-20) mg/dL Creatinine (0.66-1.25) mg/dL Glucose (74-99) mg/dL POC Glucose (mg/dL) 107 H 116 H (75-99) mg/dL Calcium (8.4-10.2) mg/dL Total Protein (6.3-8.2) g/dL Albumin (3.5-5.0) g/dL Crossmatch 09/22/21 09/22/2109/22/22 Range/Units 03:55 05:43 06:01 WBC (3.8-10.6) k/uL RBC (4.30-5.90) m/uL Hgb (13.0-17.5) gm/dL Hct (39.0-53.0) % RDW (11.5-15.5) % ABG pO2 122 H (83-108) mmHg ABG Total CO2 26 H (19-24) mmol/L ABG O2 Saturation 98.5 H (94-97) % Chloride 109 H (98-107) mmol/L BUN 22 H (9-20) mg/dL Creatinine 2.93 H (0.66-1.25) mg/dL Glucose 106 H (74-99) mg/dL POC Glucose (mg/dL) 106 H (75-99) mg/dL Calcium 7.4 L (8.4-10.2) mg/dL Total Protein 3.9 L (6.3-8.2) g/dL Albumin 1.8 L (3.5-5.0) g/dL Crossmatch Assessment and Plan Plan: Assessment: 1. Acute kidney injury secondary to ATN secondary to hypotension. Creatinine was 0.77 on 08/10/2021. Patient started on hemodialysis in 09/12/2021 due to persistent hyperkalemia. Patient has a right groin catheter. Oliguric. 2. Hyperkalemia secondary to acute kidney injury, acidosis and use of JENSEN inhibitor prior to admission. Improved postdialysis. Now hypokalemic and replaced. 3. Metabolic acidosis secondary to acute kidney injury. Improved. 4. Acute cholecystitis with gangrenous bladder status post open cholecystectomy on 09/17/2021. 5. Acute hypoxic respiratory failure. Currently intubated. 6. Acute blood loss anemia. Hemoglobin 6.8 today. No active bleeding noted. Status post blood transfusion. Also received IV DDAVP. On Aranesp. Plan: Hemodialysis today. Wean FiO2. Hep-Lock IV fluids. Avoid nephrotoxins. Continue to monitor renal function and urine output. Possible permacath today. Phosphorus 3.8 dated 09/20/2021.
[2021-09-22] MEDS: PANTOPRAZOLE 40 MG/10 ML VIAL IVP SCH (09:32)
[2021-09-22] MEDS: PIPERACILLIN-TAZOBACTAM 3.375 GM in SODIUM CHLORIDE 0.9% 100 ML IVPB SCH ×2 (09:32→20:39)
[2021-09-22] MEDS: CHLORHEXIDINE GLUCONATE 15 ML CUP MUCOUS MEM SCH ×2 (09:32→20:39)
--- NOTE | 2021-09-22 09:47 | P.PN ---
Subjective Progress Note Date: 09/22/21 Principal diagnosis: Shortness of breath 61-year-old male patient, who was transferred to the hospital on 09/09/2021 from the group home where he was residing. The patient was sent to medical [facility] for further rehabilitation as the patient had a prolonged hospitalization back in June 2021 that extended to July 2021. At that time, the patient had a very complicated course as the patient was intubated and placed on a mechanical ventilator on 06/25/2021. He presented to us hypothermic, had pneumonia and sepsis and complete opacification of the left lung. During the course of his illness, he Is negative for microbial growth and he also tested negative for COVID 19. He underwent bronchoscopy 2 on 06/27/2021 and 07/03/2021. His left lung gradually reexpanded. Post extubation, he was given BiPAP. He is known to have asthma, diabetes, hypertension, hyperlipidemia and obstructive sleep apnea and BPH. He was given aggressive chest PT, percussion, deep breathing and pulmonary toileting and based on his generalized weakness, he was sent for rehabilitation. During this current admission, the patient reports that he was not doing well. He does not get to the point where he was ambulatory. Obviously is a non-reliable historian. He states that he was not feeling well. He was feeling weak. He was not eating much. He did not like the food and his oral intake was quite diminished. He came into the ED with hypotension with a blood pressure of 70/50. The patient's potassium level initially was at 4.9 and the patient was in acute kidney injury. Subsequently, the potassium came up to 7.3. Various treatments done to improve the potassium and failed and ultimately, the patient got transferred to the ICU for hyperkalemia. He was given a dialysis catheter and he received a session of hemodialysis yesterday. This morning, his potassium level is down to 5.9. Creatinine is improving. Urine output is in order of 20-25 mL an hour. He has a dialysis catheter in his right groin. He has no signs of any respiratory distress. Chest x-rays unchanged and there is a stable atelectasis in left lung base. The patient remains about O2 and currently he is a 96% pulse ox. Most recent BP is 88/50 from this morning. He was noted to be tachycardic over the past 24 hours. Cardiac rhythm is sinus. White cell count is at low hemoglobin 15.7 and a platelet count of 195. Note. Indication of an underlying infection. The patient's UA was not showing any signs of infection. Blood cultures 2 were sent from admission are negative. He has stage II wounds. No significant cough sputum production. No wheezing. No altered mentation or headache or neck stiffness. In the ICU, give this patient a bolus of 1 L. I started him on IV Zosyn and IV. The ulcers. He is on Levemir insulin 16 units at bedtime along with a sliding scale coverage. On 09/13/2021 patient seen in follow-up in the intensive care unit. He is awake and alert, in no acute distress, he is resting comfortably in bed, denies any dyspnea. Room air pulse ox is 94%, patient is having hemodialysis treatment. He did wear CPAP support last night. Patient remains on empiric antibiotics with doxycycline and Zosyn. Patient continues to have low-grade fevers and a T- max in the last 24 hours was 101.6F at 8:00 in the morning yesterday. No cough, no chest discomfort, no hemoptysis. Hemodynamically stable, he is receiving IV fluids normal saline at a rate of 75 ML per hour. Breathing is nonlabored, comfortable. His chest x-ray on 09/11/2021 showed mild blunting of the left costophrenic angle, clear right lung. Today's labs have been reviewed with blood cell count is 7.6, hemoglobin is 11.3, platelet count is 194, sodium is 132, the rest of electrolytes were within normal limits, BUN is 47, creatinine is 3.22. Patient is not requiring any vasopressor support, echocardiogram has been completed showing moderate concentric LVH, EF of 55-60%, and severe enlargement of the right ventricle. On 09/14/2021 patient seen in follow-up on selective care unit, he is resting in bed, breathing comfortably, lung sounds are essentially clear to auscultation, no rhonchi no wheezing, denies any cough, no phlegm production or chest discomfort. She did wear his CPAP device at night. At the on room air pulse ox is 95%, he was dialyzed yesterday and 900 mL of fluid was removed with hemodialysis. No plans for hemodialysis today according to the patient. Today's labs have been reviewed, sodium is 135, the rest of electrolytes are within normal limits, BUN is 39, creatinine is 3.31. 4 sets of blood cultures have shown no growth thus far since admission. Unclear the source of possible infection, patient remains on antibiotics for empiric antibiotic coverage, as patient for pneumonia is low On 09/16/2021 patient seen in follow-up on medical surgical floor, he is resting in bed, does not appear to be in any acute distress, he is currently it is of oxygen, he is satting 96%, at night he is been wearing his CPAP device from home. Denies any worsening dyspnea, no complaints of chest discomfort, still has some mild generalized edema. Today's labs have been reviewed, white blood cell count is 8.9, hemoglobin is 11.7, sodium is 138, potassium is 4.2, chloride is 107, CO2 is 15, B1 is 35, creatinine is 4.09. Nephrology is following, and had hemodialysis treatment yesterday with removal 1.3 L of fluid. Appetite is fair, no nausea or vomiting, however patient is incontinent of liquid brown stool. Patient has had no fever or chills, his blood cultures have been negative, as of dyspnea or cough, no phlegm production, breathing comfortably, lung sounds are clear. His last chest x-ray was on 09/14/2021 grossly unremarkable lungs. On 09/17/2021 patient seen in follow-up in the recovery room. This morning patient was taken to surgery for cholecystectomy and he was found to have acute gangrenous cholecystitis with transmural necrosis of gallbladder wall. Following the procedure patient is still intubated and sedated in the recovery room, on assist control mode of ventilation with a rate of 12, tidal volume is 450, FiO2 of 100% and PEEP of 5. His peak air pressure is 28, plateau is 21, he is resting comfortably on a gurney in the recovery room, still sedated, Diprivan will be started, 0.9 normal saline at a rate of 75 ML per hour, his postoperative blood gas and chest x-ray are pending. This morning's labs have been reviewed, white blood cell count was 8.8, hemoglobin was 10.9, sodium is 136, potassium 3.8, BUN was 44, creatinine is 5.05, postoperative labs are pending. Patient continues on Zosyn for antibiotic coverage. Surgical incision is clean dry and intact, abdominal binder is in place, NG tube is in place to low intermittent suction. On 09/22/2021 patient seen in follow-up in intensive care unit. He is postoperative day #5 status post ectomy for acute gangrenous cholecystitis with transmural necrosis of the gallbladder wall. Patient remains intubated and sedated on assist control mode of ventilation with a rate of 12, tidal lung is 450, FiO2 of 30% and PEEP of 5, this morning's blood gas shows pO2 of 122, pCO2 of 39, and pH of 7.42 and this was done on the above-mentioned vent settings and FiO2 of 30%. Today's chest x-ray has been reviewed and left lower lobe atelectasis versus pneumonia and associated effusion. Patient required small amount of norepinephrine on and off through the night, it is currently weaned off. His blood pressure stable at 107/54. He is in sinus mechanism, slightly tachycardic with a rate of 1038 BPM, his 0.9 normal saline is a 60 ML per hour, Diprivan and is at 20 mics per kilo per minute. Sedation is currently on hold for possibility of spontaneous breathing trials. There has been no active bleeding overnight white blood cell count is improved and is down to 9.4, hemoglobin is 6.8, platelet count is 317, sodium is 140, potassium 3.6, chloride is 109, BUN is 22 creatinine is 2.93. Occult blood was positive on 09/19/2021. She did receive 2 units of pack red blood cells on 09/19/2021 and 1 unit of packed red blood cells yesterday on 09/21/2021. tube feedings are currently on hold for possibility of permacath dialysis port placement. CT of the abdomen and pelvis from yesterday was a suboptimal study and showed expected changes from cholecystectomy, percutaneous drainage catheter going through the gallbladder fossa and terminating in the midline anterior and superior to the gallbladder fossa. Ill-defined fluid and air at the level of the gallbladder fossa is nonspecific. There was soft tissue anasarca along with small bilateral pleural effusions and mild amount of intra-abdominal ascites, possibly related to fluid overload state. Patient has significant generalized edema, he isn't +1.5 L net fluid balance over the last 24 hours, overall is +27 kg in the last 7-10 days. Nephrology has been following. He is practically anuric, and the plan is to dialyze him today. In addition patient remains on antibiotics with Zosyn, 4 sets of blood cultures are negative. Objective - Vital Signs Vital signs: Vital Signs Temp 98.6 F 09/22/21 08:00 Pulse 102 H 09/22/21 08:00 Resp 11 L 09/22/21 08:00 BP 116/64 09/22/21 08:00 Pulse Ox 100 09/22/21 07:00 Intake & Output 09/21/21 09/22/21 09/22/21 18:59 06:59 18:59 Intake Total 1139.48 918.90 150 Output Total 370 120 30 Balance 769.48 798.90 120 Weight 151.953 kg Intake: IV 600 700 150 Piperacillin-Tazobactam 3 100 .375 gm In Sodium Chloride 0.9% 100 ml @ 25 mls/hr IVPB Q12HR ERINN Rx #:[id number] Sodium Chloride 0.9% 1, 600 600 150 000 ml @ 50 mls/hr IV . Q20H ERINN Rx#:[id number] Intake, IV Titration 229.48 218.90 Amount Norepinephrine 32 mg In 4.6 Sodium Chloride 0.9% 218 ml @ 0.05 MCG/KG/MIN 3. 047 mls/hr IV .Q24H ERINN Rx#:[id number] propofoL 1,000 mg In 229.48 214.30 Empty Bag 1 bag @ 5 MCG/ KG/MIN 3.9 mls/hr IV . Q24H ERINN Rx#:[id number] Tube Feeding 0 Blood Product 310 Rc As-1 Unit 310 [id number] Output: Drainage 260 110 Right Abdomen 260 110 Urine 110 10 30 Other: Voiding Method Indwelling Catheter Indwelling Catheter Indwelling Catheter # Bowel Movements 1 ABP, PAP, CO, CI - Last Documented Arterial Blood Pressure 136/50 - Exam GENERAL EXAM: Sedated and intubated, 61-year-old white male, on assist-control mode of ventilation with a rate of 12, tidal volume is 450, FiO2 30% and PEEP of 5. HEAD: Normocephalic/atraumatic. EYES: Normal reaction of pupils, equal size. Conjunctiva pink, sclera white. NOSE: Clear with pink turbinates. THROAT: No erythema or exudates. NECK: No masses, no JVD, no thyroid enlargement, no adenopathy. CHEST: No chest wall deformity. Symmetrical expansion. LUNGS: Equal air entry with no crackles, wheeze, rhonchi or dullness. CVS: Regular rate and rhythm, normal S1 and S2, no gallops, no murmurs, no rubs ABDOMEN: Soft, nontender. No hepatosplenomegaly, normal bowel sounds, no guarding or rigidity. Abdominal incisions are clean dry and intact, covered with the abdominal binder, GRETCHEN drain is in place with small amount of sanguinous output EXTREMITIES: No clubbing, severe generalized edema, no cyanosis, 2+ pulses and upper and lower extremities. MUSCULOSKELETAL: Muscle strength and tone normal. SPINE: No scoliosis or deformity SKIN: No rashes CENTRAL NERVOUS SYSTEM: Sedated, intubated No focal deficits, tone is normal in all 4 extremities. - Labs CBC & Chem 7: 09/22/21 03:55 09/22/21 03:55 Labs: Abnormal Lab Results - Last 24 Hours (Table) 09/19/21 09/21/21 09/21/21 Range/Units 06:10 11:45 14:52 WBC 11.0 H (3.8-10.6) k/uL RBC 2.44 L (4.30-5.90) m/uL Hgb 7.1 L (13.0-17.5) gm/dL Hct 22.0 L (39.0-53.0) % RDW 17.1 H (11.5-15.5) % ABG pO2 (83-108) mmHg ABG Total CO2 (19-24) mmol/L ABG O2 Saturation (94-97) % Chloride (98-107) mmol/L BUN (9-20) mg/dL Creatinine (0.66-1.25) mg/dL Glucose (74-99) mg/dL POC Glucose (mg/dL) 155 H (75-99) mg/dL Calcium (8.4-10.2) mg/dL Total Protein (6.3-8.2) g/dL Albumin (3.5-5.0) g/dL Crossmatch See Detail 09/21/21 09/21/21 09/22/21 Range/Units 17:41 23:37 03:55 WBC (3.8-10.6) k/uL RBC 2.36 L (4.30-5.90) m/uL Hgb 6.8 L* (13.0-17.5) gm/dL Hct 21.8 L (39.0-53.0) % RDW 18.3 H (11.5-15.5) % ABG pO2 (83-108) mmHg ABG Total CO2 (19-24) mmol/L ABG O2 Saturation (94-97) % Chloride (98-107) mmol/L BUN (9-20) mg/dL Creatinine (0.66-1.25) mg/dL Glucose (74-99) mg/dL POC Glucose (mg/dL) 107 H 116 H (75-99) mg/dL Calcium (8.4-10.2) mg/dL Total Protein (6.3-8.2) g/dL Albumin (3.5-5.0) g/dL Crossmatch 09/22/21 09/22/21 09/22/21 Range/Units 03:55 05:43 06:01 WBC (3.8-10.6) k/uL RBC (4.30-5.90) m/uL Hgb (13.0-17.5) gm/dL Hct (39.0-53.0) % RDW (11.5-15.5) % ABG pO2 122 H (83-108) mmHg ABG Total CO2 26 H (19-24) mmol/L ABG O2 Saturation 98.5 H (94-97) % Chloride 109 H (98-107) mmol/L BUN 22 H (9-20) mg/dL Creatinine 2.93 H (0.66-1.25) mg/dL Glucose 106 H (74-99) mg/dL POC Glucose (mg/dL) 106 H (75-99) mg/dL Calcium 7.4 L (8.4-10.2) mg/dL Total Protein 3.9 L (6.3-8.2) g/dL Albumin 1.8 L (3.5-5.0) g/dL Crossmatch Assessment and Plan Plan: Assessment: #1. Acute gangrenous cholecystitis with transmural necrosis of the gallbladder wall, status post open cholecystectomy on 09/17/2021 #2. Acute kidney injury related to the above, and was initiated on hemodialysis#3 #3. Acute on chronic anemia, occult stool positive, s/p transfusion with 3 units of blood, current Hgb is 6.8, possibly related to GI blood loss anemia and acute kidney injury #4. Non-anion gap metabolic acidosis, improved #5. Acute hyperkalemia, resolved with hemodialysis, current potassium level is 3.6 #6. Hypotension sinus tachycardia related to acute sepsis, currently improved #7. Morbid obesity with BMI 41.8 #8. History of acute hypoxic respiratory failure on the mechanical ventilator back in mid June 2021 with left lung collapse post bronchoscopy 2 #9. Bronchial asthma, chronic, unspecified #10. Diabetes note this type II #11. Hyperlipidemia #12. Hypertension #13. Obstructive sleep apnea on CPAP therapy #14. BPH #15. Diarrhea, negative C. diff Plan: Today's chest x-ray and labs have been reviewed We'll proceed with giving traction of sedation, assessment of status and proceed with spontaneous breathing trials Patient will have hemodialysis this morning His many liters positive, not producing any urine scheduled for permacath placement this afternoon Will coordinate his weaning trials with hemodialysis and permacath placement Continue antibiotics We'll resume his tube feedings dissection and Continue GI/DVT prophylaxis Continue to follow I have personally seen and examined the patient, performed the documentation and the assessment and plan as written. Number of minutes spent on the visit: [15] I have personally seen and examined the patient and reviewed the documentation. I performed a joint evaluation with the nurse practitioner in this evaluation was done more than 30 minutes. I fully agree with the documentation above and the plan of care. This patient is being seen in the joint evaluation along with the nurse practitioner. The patient had a another drop in hemoglobin down to 6.8 and the patient will be receiving another unit of packed RBC. The patient is not showing any signs of GI bleeding. CAT scan of the abdomen was negative. We'll proceed with hemodialysis. We'll cut down the sedation proceed with sedation holiday and possible extubation within next 24 hours. Time with Patient: Greater than 30
[2021-09-22 12:42] LABS: Glucose,Whole Blood 102 mg/dL (75-99)
--- NOTE | 2021-09-22 13:18 | P.PN ---
Subjective Progress Note Date: 09/22/21 CHIEF COMPLAINT: Abdominal pain HISTORY OF PRESENT ILLNESS: Patient remains in the ICU and remains intubated. He is postop day #5 status post open cholecystectomy for acute gangrenous cholecystitis with transmural necrosis of gallbladder wall. Patient has had no further bleeding from his incision. He is undergoing a weaning trial today and hopefully will be weaned off the vent. He is scheduled for permacath placement for his dialysis. Computed tomography scan abdomen and pelvis showed no evidenc e of bleeding. Computed tomography scan demonstrates expected changes from cholecystectomy noted. Percutaneous drainage catheter goes through gallbladder fossa terminating more in the midline anterior and superior to the gallbladder fossa. No defined fluid and air at level of gallbladder fossa is nonspecific in favor productive of recent surgery. Soft tissue anasarca along the small bilateral pleural effusions and mild amount of intra-abdominal ascites presumed product of desired fluid overload state. Patient receiving hemodialysis this morning. Afebrile. WBC normalized from 11-9.4 hemoglobin dropped from 7.1-6.8 and platelets 317. No active bleeding reported. Creatinine is up at 2.93. Not making much urine. PHYSICAL EXAM: VITAL SIGNS: Reviewed. GENERAL: Intubated HEENT: Moist buccal mucosa. Head is atraumatic, normocephalic. ABDOMEN: Soft. Nondistended. His incision clean dry and intact. GRETCHEN drain with serous 90ml serosanguineous output. ASSESSMENT: 1. Acute gangrenous cholecystitis status post open cholecystectomy 2. Acute kidney injury requiring hemodialysis 3. Anemia PLAN: -Continue ICU management -Continue supportive care -Continue antibiotics -Vent management pulmonary service Physician Hot Kettle Tender note has been reviewed by physician. Signing provider agrees with the documented findings, assessment, and plan of care. Objective - Vital Signs Vital signs: Vital Signs Temp 98.7 F 09/22/21 12:00 Pulse 112 H 09/22/21 12:05 Resp 15 09/22/21 12:00 BP 114/65 09/22/21 12:00 Pulse Ox 99 09/22/21 11:00 Intake & Output 09/21/21 09/22/21 09/22/21 18:59 06:59 18:59 Intake Total 1139.48 918.90 346.28 Output Total 451 504 8366 Balance 769.48 798.90 -1683.72 Weight 151.953 kg Intake: IV 600 700 300 Piperacillin-Tazobactam 3 100 .375 gm In Sodium Chloride 0.9% 100 ml @ 25 mls/hr IVPB Q12HR ERINN Rx #:[id number] Sodium Chloride 0.9% 1, 600 600 300 000 ml @ 50 mls/hr IV . Q20H ERINN Rx#:[id number] Intake, IV Titration 229.48 218.90 46.28 Amount Norepinephrine 32 mg In 4.6 Sodium Chloride 0.9% 218 ml @ 0.05 MCG/KG/MIN 3. 047 mls/hr IV .Q24H ERINN Rx#:[id number] propofoL 1,000 mg In 229.48 214.30 46.28 Empty Bag 1 bag @ 5 MCG/ KG/MIN 3.9 mls/hr IV . Q24H ERINN Rx#:[id number] Tube Feeding 0 Blood Product 310 Rc As-1 Unit 310 [id number] Output: Drainage 260 110 Right Abdomen 260 110 Urine 110 10 30 Hemodialysis 2000 Other: Voiding Method Indwelling Catheter Indwelling Catheter Indwelling Catheter # Bowel Movements 1 ABP, PAP, CO, CI - Last Documented Arterial Blood Pressure 131/60 - Labs CBC & Chem 7: 09/22/21 03:55 09/22/21 03:55 Labs: Abnormal Lab Results - Last 24 Hours (Table) 09/21/21 09/21/21 09/21/21 Range/Units 14:52 17:41 23:37 WBC 11.0 H (3.8-10.6) k/uL RBC 2.44 L (4.30-5.90) m/uL Hgb 7.1 L (13.0-17.5) gm/dL Hct 22.0 L (39.0-53.0) % RDW 17.1 H (11.5-15.5) % ABG pO2 (83-108) mmHg ABG Total CO2 (19-24) mmol/L ABG O2 Saturation (94-97) % Chloride (98-107) mmol/L BUN (9-20) mg/dL Creatinine (0.66-1.25) mg/dL Glucose (74-99) mg/dL POC Glucose (mg/dL) 107 H 116 H (75-99) mg/dL Calcium (8.4-10.2) mg/dL Total Protein (6.3-8.2) g/dL Albumin (3.5-5.0) g/dL 09/22/21 09/22/21 09/22/21 Range/Units 03:55 03:55 05:43 WBC (3.8-10.6) k/uL RBC 2.36 L (4.30-5.90) m/uL Hgb 6.8 L* (13.0-17.5) gm/dL Hct 21.8 L (39.0-53.0) % RDW 18.3 H (11.5-15.5) % ABG pO2 (83-108) mmHg ABG Total CO2 (19-24) mmol/L ABG O2 Saturation (94-97) % Chloride 109 H (98-107) mmol/L BUN 22 H (9-20) mg/dL Creatinine 2.93 H (0.66-1.25) mg/dL Glucose 106 H (74-99) mg/dL POC Glucose (mg/dL) 106 H (75-99) mg/dL Calcium 7.4 L (8.4-10.2) mg/dL Total Protein 3.9 L (6.3-8.2) g/dL Albumin 1.8 L (3.5-5.0) g/dL 09/22/21 09/22/21 Range/Units 06:01 12:39 WBC (3.8-10.6) k/uL RBC (4.30-5.90) m/uL Hgb (13.0-17.5) gm/dL Hct (39.0-53.0) % RDW (11.5-15.5) % ABG pO2 122 H (83-108) mmHg ABG Total CO2 26 H (19-24) mmol/L ABG O2 Saturation 98.5 H (94-97) % Chloride (98-107) mmol/L BUN (9-20) mg/dL Creatinine (0.66-1.25) mg/dL Glucose (74-99) mg/dL POC Glucose (mg/dL) 102 H (75-99) mg/dL Calcium (8.4-10.2) mg/dL Total Protein (6.3-8.2) g/dL Albumin (3.5-5.0) g/dL
[2021-09-22 18:00] LABS: Glucose,Whole Blood 95 mg/dL (75-99)
--- NOTE | 2021-09-22 18:05 | PCN ---
PROCEDURE NOTE PREOPERATIVE DIAGNOSIS: Acute on chronic renal failure. POSTOPERATIVE DIAGNOSIS: Acute on chronic renal failure. PROCEDURE: Exchange of dialysis catheter, right femoral approach. PROCEDURE DESCRIPTION: This patient has a history of catheter in the right groin which was recalled. Right groin were prepped and drapes were applied in a sterile manner. Lidocaine 1% was infiltrated. Guidewire was passed through the catheter. Old catheter was removed. Then we placed a new catheter on the top of the guidewire, flushed with heparin saline and hep-locked, secured with 3-0 nylon. Dressing was applied. Patient tolerated the procedure well. MMODL / IJN: [id number] /
[2021-09-22] MEDS ORDERED: IPRATROPIUM-ALBUTEROL 3 ML NEB INHALATION PRN (20:01)
[2021-09-22] MEDS: GABAPENTIN 100 MG CAP PO SCH (20:39)
--- NOTE | 2021-09-22 23:36 | P.PN ---
Subjective Progress Note Date: 09/21/21 This is a 61-year-old patient, follows with Dr. Seda Schneider. Chronic stable medical conditions include diabetes, , hyperlipidemia, obstructive sleep apnea uses CPAP, herniated disc / injections,. Patient was in the hospital from 06/26/2021 through July 16 Admitted with pneumonia, severe hypothermia, acute hypoxic respiratory failure, possible sepsis, possible acute congestive heart failure exacerbation. Was intubated. Was discharged on intermittent BiPAP. Gruetli Laager to have possible viral pneumonitis. Was negative for COVID. Was discharged to rehab. At the rehab patient had a poor appetite. Not really able to walk. Patient was at search engine optimization consultant up as found a very low blood pressure. Admitted. Denies any fever and chills. Actually eating better here. Has been having daily bowel mov ements. Occasional diarrhea. Does feel tired and rundown. Admitted with severe hypotension, acute kidney injury, hypoglycemia. Diuretics were held. IV hydration. PTOT. September 11: Lasted patient abdominal pain. Abdominal x-ray unremarkable. Surgery consulted. Patient's is present. Appetite is actually getting better. Continue IV fluids. Renal function worsening. Start bicarbonate drip. Coughing up some yellow sputum. Add doxycycline for acute bronchitis. Check creatinine kinase. Rule out rhabdomyolysis. September 12: Patient potassium persisted to be high yesterday. In spite of having several medications. Moved to the ICU. Nephrology consulted. Dialysis catheter was placed and patient received hemodialysis late last night. Poor appetite. Tired. Seen by psychiatry. Gruetli Laager to have adjustment disorder. September 13: ICU: Tired and sleepy. Barely eating. I reviewed medications. Patient on Neurontin in the setting of acute kidney injury this can cause the patient to be lethargic. Cut back on the dose. Dialysis today. About half a liter removed. IV Zosyn. September 14: Patient started on Marinol yesterday. Still appetite is poor. Pharyngeal hygiene not good. Discussed with the nurse to get it clean. Including saltwater gargle. Patient bit more awake after cutting back dose of Neurontin. On IV Zosyn. September 15: Patient not really eating. Neurontin cutback 200 mg daily at bedtime. Reminded nurse about pharyngeal tolerate. Not much urine output. IV fluids increased to 130 mL an hour. Hypoglycemic. DC Lantus. September 16: Patient does complain of feeling depressed. Not eating. Patient was reevaluated by psychiatry. Gruetli Laager to be adjustment disorder. Patient does not have any pain in the lower extremity except on movement. cutback Requip. .25 mg daily at bedtime. It is cleared through the renal route. Getting a neurological evaluation. The unlikely will check patient's ammonia level. Also spoke to the about possible feeding tube. Given poor oral intake. Patient only eating a few bites here and there September 17: Patient taken to the OR. Dr. Renetta Santillan the patient's found to have a gangrenous gallbladder. GRETCHEN drain. Patient taken to the ICU postprocedure. On the ventilator. IV propofol. Spoke to patient's family including the at the bedside. Subjective: 09/18/2021 Patient with gangrenous cholecystitis status post cholecystectomy on 09/17, Today is postoperative day #1, after that he was admitted to the ICU with sepsis and hypotension which is improving now, he is currently intubated and sedated. Also has been started for hemodialysis regarding his acute kidney injury. Neurologist on the case for his metabolic/toxic encephalopathy. Patient is not febrile. Still tachycardic and tachypneic WBC 11.8, hemoglobin 8.2, platelet count 513 Potassium 5.9, creatinine 5.7, liver enzymes slightly elevated AST 79 with nor mal ALT 47 and bilirubin 1.3. Serum cortisol is 20 Chest x-ray from today showing some pleural reaction and atelectasis at the lung bases. There is clearing of pulmonary edema to a large extent compared to old exam earlier today Currently he is on pressors and taken Zosyn as well. 09/19/2021 Patient remains in the ICU intubated and sedated with pulmonary/critical care team following him closely.patient is getting interrupteds sedation His WBC is improved 9.1, hemoglobin was low at 5.9. Sodium 135, potassium 3.1, creatinine 3.9, glucose control. Chest x-ray: Show no change Patient is getting blood transfusion today, most likely patient has oozing from the surgical site. Also JVD drain with serosanguineous fluid 09/20/2021 Patient is in the MICU and on mechanical ventilator. Underwent open cholecystectomy for gangrenous acute cholecystitis. Postoperative day #3. Patient is on pressor support at lower dose and is on antibiotics in the form of Zosyn. Patient is also bicarb drip. Patient was also started on hemodialysis temporarily. Currently on mechanical ventilator with tidal volume 450, FiO2 30% and PEEP of 5. Laboratory data showed WBC 12.5 hemoglobin 7.4 and platelets 378, sodium 136 potassium 3.5 chloride 105 bicarb is 25 BUN 20 and creatinine 2.84 calcium 7.2. Nephrology and pulmonary is on board. 09/21/2021 Patient is postoperative day 4 status post open cholecystectomy due to gangrenous acute cholecystitis. Patient remains in the MICU and on mechanical ventilator. Patient is off sedation. Pressors have been tapered off. Currently on assist control with t idal volume of 450, FiO2 30% and PEEP of 5. Chest x-ray showed ET tube appears to be. Tip now at medial clavicular heads. Moderate left effusion with adjacent atelectasis and/or consolidation may be slightly increased. Patient remains on antibiotics in the form of Zosyn. Laboratory showed hemoglobin drop of from 7.4-5.7 today. Transfused with [address] of the abdomen pelvis was ordered to rule out intra-abdominal bleeding. Otherwise patient remains on hemodialysis. BUN 17 and creatinine 2.29. Albumin 1.6. Nephrology and pulmonary is on board. Current medications reviewed. Objective - Vital Signs Vital signs: Vital Signs Temp 98.8 F 09/21/21 12:00 Pulse 114 H 09/21/21 15:36 Resp 20 09/21/21 15:00 BP 117/50 09/21/21 10:01 Pulse Ox 99 09/21/21 15:00 Intake & Output 09/20/21 09/21/21 09/21/21 18:59 06:59 18:59 Intake Total 0034.494 9945 812.52 Output Total 3020 0 270 Balance -8115.364 4703 542.52 Weight 130 kg Intake: IV 1025 700 450 Dextrose 5% in Water 1, 225 000 ml @ 75 mls/hr IV . [id number] ERINN with Sodium Bicarb (1 Meq/ml) 100 ml Rx#:[id number] Piperacillin-Tazobactam 3 100 100 .375 gm In Sodium Chloride 0.9% 100 ml @ 25 mls/hr IVPB Q12HR ERINN Rx #:[id number] Potassium Chloride 20 meq 300 In Water For Injection 1 100ml.bag @ 50 mls/hr IVPB Q2H ERINN Rx#: [id number] Sodium Chloride 0.9% 1, 400 600 450 000 ml @ 50 mls/hr IV . Q20H ERINN Rx#:[id number] Intake, IV Titration 337.491 52.52 Amount Norepinephrine 32 mg In 72.031 Sodium Chloride 0.9% 218 ml @ 0.05 MCG/KG/MIN 3. 047 mls/hr IV .Q24H ERINN Rx#:[id number] propofoL 1,000 mg In 265.460 52.52 Empty Bag 1 bag @ 5 MCG/ KG/MIN 3.9 mls/hr IV . Q24H ERINN Rx#:[id number] Tube Feeding 80 292 0 Blood Product 310 Rc As-1 Unit 310 [id number] Other 30 90 Output: Drainage 160 Right Abdomen 160 Urine 20 0 110 Hemodialysis 3000 Other: Voiding Method Indwelling Catheter Indwelling Catheter Indwelling Catheter # Bowel Movements 1 ABP, PAP, CO, CI - Last Documented Arterial Blood Pressure 120/52 - Exam - Exam -GENERAL: The patient is intubated,Able to follow simple commands. HEENT: Pupils are round and equally reacting to light. EOMI. No scleral icterus. No conjunctival pallor. Normocephalic, atraumatic. No pharyngeal erythema. No thyromegaly. CARDIOVASCULAR: S1 and S2 present. No murmurs, rubs, or gallops. PULMONARY: Chest is clear to auscultation, no wheezing or crackles. -ABDOMEN: Soft, , nondistended, normoactive bowel sounds. No palpable organomegaly. Surgical wound closed with dressing in place MUSCULOSKELETAL: No joint swelling or deformity. EXTREMITIES: No cyanosis, clubbing, or pedal edema. NEUROLOGICAL: Gross neurological examination did not reveal any focal deficits. SKIN: No rashes. no petechiae. - Labs CBC & Chem 7: 09/22/21 03:55 09/22/21 03:55 Labs: Abnormal Lab Results - Last 24 Hours (Table) 09/19/21 09/20/21 09/21/21 Range/Units 06:10 17:39 00:03 WBC (3.8-10.6) k/uL RBC (4.30-5.90) m/uL Hgb (13.0-17.5) gm/dL Hct (39.0-53.0) % RDW (11.5-15.5) % ABG pO2 (83-108) mmHg ABG HCO3 (21-25) mmol/L ABG Total CO2 (19-24) mmol/L Potassium (3.5-5.1) mmol/L Chloride (98-107) mmol/L Creatinine (0.66-1.25) mg/dL Glucose (74-99) mg/dL POC Glucose (mg/dL) 146 H 135 H (75-99) mg/dL Calcium (8.4-10.2) mg/dL Total Protein (6.3-8.2) g/dL Albumin (3.5-5.0) g/dL Crossmatch See Detail 09/21/21 09/21/21 09/21/21 Range/Units 04:40 04:40 05:43 WBC (3.8-10.6) k/uL RBC 1.94 L (4.30-5.90) m/uL Hgb 5.7 L* D (13.0-17.5) gm/dL Hct 17.6 L* (39.0-53.0) % RDW 16.7 H (11.5-15.5) % ABG pO2 74 L (83-108) mmHg ABG HCO3 27 H (21-25) mmol/L ABG Total CO2 28 H (19-24) mmol/L Potassium 3.4 L (3.5-5.1) mmol/L Chloride 111 H (98-107) mmol/L Creatinine 2.29 H (0.66-1.25) mg/dL Glucose 138 H (74-99) mg/dL POC Glucose (mg/dL) (75-99) mg/dL Calcium 7.2 L (8.4-10.2) mg/dL Total Protein 3.6 L (6.3-8.2) g/dL Albumin 1.6 L (3.5-5.0) g/dL Crossmatch 09/21/21 09/21/21 Range/Units 11:45 14:52 WBC 11.0 H (3.8-10.6) k/uL RBC 2.44 L (4.30-5.90) m/uL Hgb 7.1 L (13.0-17.5) gm/dL Hct 22.0 L (39.0-53.0) % RDW 17.1 H (11.5-15.5) % ABG pO2 (83-108) mmHg ABG HCO3 (21-25) mmol/L ABG Total CO2 (19-24) mmol/L Potassium (3.5-5.1) mmol/L Chloride (98-107) mmol/L Creatinine (0.66-1.25) mg/dL Glucose (74-99) mg/dL POC Glucose (mg/dL) 155 H (75-99) mg/dL Calcium (8.4-10.2) mg/dL Total Protein (6.3-8.2) g/dL Albumin (3.5-5.0) g/dL Crossmatch Assessment and Plan Assessment: -Acute gangrenous cholecystitis status post cholecystectomy. On 09/17. Continue with postop care. -Severe sepsis and hypotension, with acute hypoxic respiratory failure, currently intubated. off pressors. With pulmonary/critical care team following closely. Also patient on Zosyn. -Chronic congestive heart failure. From diastolic dysfunction EF 55-60%: Hold diuretics for now -Acute blood loss anemia, requiring blood transfusion, most likely due was informed surgical site, follow-up hemoglobin -Acute kidney injury prerenal versus ATN: On renal Temporary replacement therapy on hemodialysis -Acute metabolic acidosis from worsening renal failure: -Acute severe hyperkalemia from metabolic acidosis: Better -Sinus tachycardia likely from sepsis -Anorexia multifactorial: Not improving Did not respond to Marinol. -Obesity BMI 34 -History of Adjustment disorder Seen by psychiatry. No medications. -Essential hypertension, currently blood pressure running low Hold off antihypertensive -History of Restless leg syndrome Requip .25 mg daily at bedtime -Diabetes mellitus type 2 on oral hypoglycemic, uncontrolled with hypoglycemia: Slow to respond Hold of oral hypoglycemic. Follow Accu-Cheks. -Hyperlipidemia Hold off Zocor because of muscle weakness -BPH Flomax 0.4 mg daily -COPD Advair 250/50 one puff twice a day. DuoNeb 4 times a day -Chronic medical debility from recent protracted hospitalization Patient eventually will need PTOT DVT prophylaxis: Lovenox on hold GI prophylaxis: Protonix Prognosis is guarded Time with Patient: Greater than 30
--- NOTE | 2021-09-22 23:40 | P.PN ---
Subjective Progress Note Date: 09/22/21 This is a 61-year-old patient, follows with Dr. Seda Schneider. Chronic stable medical conditions include diabetes, , hyperlipidemia, obstructive sleep apnea uses CPAP, herniated disc / injections,. Patient was in the hospital from 06/26/2021 through July 16 Admitted with pneumonia, severe hypothermia, acute hypoxic respiratory failure, possible sepsis, possible acute congestive heart failure exacerbation. Was intubated. Was discharged on intermittent BiPAP. Ripley to have possible viral pneumonitis. Was negative for COVID. Was discharged to rehab. At the rehab patient had a poor appetite. Not really able to walk. Patient was at lasting floorworker up as found a very low blood pressure. Admitted. Denies any fever and chills. Actually eating better here. Has been having daily bowel mov ements. Occasional diarrhea. Does feel tired and rundown. Admitted with severe hypotension, acute kidney injury, hypoglycemia. Diuretics were held. IV hydration. PTOT. September 11: Lasted patient abdominal pain. Abdominal x-ray unremarkable. Surgery consulted. Patient's is present. Appetite is actually getting better. Continue IV fluids. Renal function worsening. Start bicarbonate drip. Coughing up some yellow sputum. Add doxycycline for acute bronchitis. Check creatinine kinase. Rule out rhabdomyolysis. September 12: Patient potassium persisted to be high yesterday. In spite of having several medications. Moved to the ICU. Nephrology consulted. Dialysis catheter was placed and patient received hemodialysis late last night. Poor appetite. Tired. Seen by psychiatry. Ripley to have adjustment disorder. September 13: ICU: Tired and sleepy. Barely eating. I reviewed medications. Patient on Neurontin in the setting of acute kidney injury this can cause the patient to be lethargic. Cut back on the dose. Dialysis today. About half a liter removed. IV Zosyn. September 14: Patient started on Marinol yesterday. Still appetite is poor. Pharyngeal hygiene not good. Discussed with the nurse to get it clean. Including saltwater gargle. Patient bit more awake after cutting back dose of Neurontin. On IV Zosyn. September 15: Patient not really eating. Neurontin cutback 200 mg daily at bedtime. Reminded nurse about pharyngeal tolerate. Not much urine output. IV fluids increased to 130 mL an hour. Hypoglycemic. DC Lantus. September 16: Patient does complain of feeling depressed. Not eating. Patient was reevaluated by psychiatry. [place]ipley to be adjustment disorder. Patient does not have any pain in the lower extremity except on movement. cutback Requip. .25 mg daily at bedtime. It is cleared through the renal route. Getting a neurological evaluation. The unlikely will check patient's ammonia level. Also spoke to the about possible feeding tube. Given poor oral intake. Patient only eating a few bites here and there September 17: Patient taken to the OR. Dr. Renetta Santillan the patient's found to have a gangrenous gallbladder. GRETCHEN drain. Patient taken to the ICU postprocedure. On the ventilator. IV propofol. Spoke to patient's family including the at the bedside. Subjective: 09/18/2021 Patient with gangrenous cholecystitis status post cholecystectomy on 09/17, Today is postoperative day #1, after that he was admitted to the ICU with sepsis and hypotension which is improving now, he is currently intubated and sedated. Also has been started for hemodialysis regarding his acute kidney injury. Neurologist on the case for his metabolic/toxic encephalopathy. Patient is not febrile. Still tachycardic and tachypneic WBC 11.8, hemoglobin 8.2, platelet count 513 Potassium 5.9, creatinine 5.7, liver enzymes slightly elevated AST 79 with nor mal ALT 47 and bilirubin 1.3. Serum cortisol is 20 Chest x-ray from today showing some pleural reaction and atelectasis at the lung bases. There is clearing of pulmonary edema to a large extent compared to old exam earlier today Currently he is on pressors and taken Zosyn as well. 09/19/2021 Patient remains in the ICU intubated and sedated with pulmonary/critical care team following him closely.patient is getting interrupteds sedation His WBC is improved 9.1, hemoglobin was low at 5.9. Sodium 135, potassium 3.1, creatinine 3.9, glucose control. Chest x-ray: Show no change Patient is getting blood transfusion today, most likely patient has oozing from the surgical site. Also JVD drain with serosanguineous fluid 09/20/2021 Patient is in the MICU and on mechanical ventilator. Underwent open cholecystectomy for gangrenous acute cholecystitis. Postoperative day #3. Patient is on pressor support at lower dose and is on antibiotics in the form of Zosyn. Patient is also bicarb drip. Patient was also started on hemodialysis temporarily. Currently on mechanical ventilator with tidal volume 450, FiO2 30% and PEEP of 5. Laboratory data showed WBC 12.5 hemoglobin 7.4 and platelets 378, sodium 136 potassium 3.5 chloride 105 bicarb is 25 BUN 20 and creatinine 2.84 calcium 7.2. Nephrology and pulmonary is on board. 09/21/2021 Patient is postoperative day 4 status post open cholecystectomy due to gangrenous acute cholecystitis. Patient remains in the MICU and on mechanical ventilator. Patient is off sedation. Pressors have been tapered off. Currently on assist control with t idal volume of 450, FiO2 30% and PEEP of 5. Chest x-ray showed ET tube appears to be. Tip now at medial clavicular heads. Moderate left effusion with adjacent atelectasis and/or consolidation may be slightly increased. Patient remains on antibiotics in the form of Zosyn. Laboratory showed hemoglobin drop of from 7.4-5.7 today. Transfused with [address] of the abdomen pelvis was ordered to rule out intra-abdominal bleeding. Otherwise patient remains on hemodialysis. BUN 17 and creatinine 2.29. Albumin 1.6. Nephrology and pulmonary is on board. 09/22/2021 Patient is postoperative day 5 open cholecystectomy due to acute gangrenous cholecystitis. Remains on mechanical ventilator with assist control respiratory 12 tidal volume 450 FiO2 30% and PEEP of 5. Chest x-ray showed left lower lobe atelectasis versus pneumonia and associated effusion. Patient remains on Zosyn. Pressors have been tapered off. WBC 9.4 hemoglobin improved to 7.1. Patient received 1 unit of PRBC yesterday, and down to 6.8 this morning. BUN [address] of the abdomen pelvis showed expected changes from cholecystectomy, ill- defined fluid and air at the level of the gallbladder fossa is nonspecific. There is soft tissue anasarca along with small bilateral pleural effusions and mild amount of abdominal ascites. Patient is being scheduled for hemodialysis today. Nephrology and pulmonary is on board. Current medications reviewed. Objective - Vital Signs Vital signs: Vital Signs Temp 98.7 F 09/22/21 20:00 Pulse 113 H 09/22/21 20:04 Resp 12 09/22/21 20:00 BP 113/82 09/22/21 20:00 Pulse Ox 100 09/22/21 20:00 Intake & Output 09/22/21 09/22/21 09/23/21 06:59 18:59 06:59 Intake Total 918.90 691.26 80 Output Total 120 2270 150 Balance 798.90 -1578.74 -70 Weight 151.953 kg 151.953 kg Intake: IV 700 600 80 Piperacillin-Tazobactam 3 100 .375 gm In Sodium Chloride 0.9% 100 ml @ 25 mls/hr IVPB Q12HR ERINN Rx #:[id number] Sodium Chloride 0.9% 1, 600 600 80 000 ml @ 50 mls/hr IV . Q20H ERINN Rx#:[id number] Intake, IV Titration 218.90 91.26 Amount Norepinephrine 32 mg In 4.6 Sodium Chloride 0.9% 218 ml @ 0.05 MCG/KG/MIN 3. 047 mls/hr IV .Q24H ERINN Rx#:[id number] propofoL 1,000 mg In 214.30 91.26 Empty Bag 1 bag @ 5 MCG/ KG/MIN 3.9 mls/hr IV . Q24H ERINN Rx#:[id number] Output: Drainage 110 80 Right Abdomen 110 80 Urine 10 50 0 Hemodialysis 2000 Other 220 70 Other: Voiding Method Indwelling Catheter Indwelling Catheter Indwelling Catheter # Bowel Movements 1 ABP, PAP, CO, CI - Last Documented Arterial Blood Pressure 131/60 - Exam - Exam -GENERAL: The patient is intubated,Able to follow simple commands. HEENT: Pupils are round and equally reacting to light. EOMI. No scleral icterus. No conjunctival pallor. Normocephalic, atraumatic. No pharyngeal erythema. No thyromegaly. CARDIOVASCULAR: S1 and S2 present. No murmurs, rubs, or gallops. PULMONARY: Chest is clear to auscultation, no wheezing or crackles. -ABDOMEN: Soft, , nondistended, normoactive bowel sounds. No palpable organomegaly. Surgical wound closed with dressing in place MUSCULOSKELETAL: No joint swelling or deformity. EXTREMITIES: No cyanosis, clubbing, or pedal edema. NEUROLOGICAL: Gross neurological examination did not reveal any focal deficits. SKIN: No rashes. no petechiae. - Labs CBC & Chem 7: 09/22/21 03:55 09/22/21 03:55 Labs: Abnormal Lab Results - Last 24 Hours (Table) 09/21/21 09/22/21 09/22/21 Range/Units 23:37 03:55 03:55 RBC 2.36 L (4.30-5.90) m/uL Hgb 6.8 L* (13.0-17.5) gm/dL Hct 21.8 L (39.0-53.0) % RDW 18.3 H (11.5-15.5) % ABG pO2 (83-108) mmHg ABG Total CO2 (19-24) mmol/L ABG O2 Saturation (94-97) % Chloride 109 H (98-107) mmol/L BUN 22 H (9-20) mg/dL Creatinine 2.93 H (0.66-1.25) mg/dL Glucose 106 H (74-99) mg/dL POC Glucose (mg/dL) 116 H (75-99) mg/dL Calcium 7.4 L (8.4-10.2) mg/dL Total Protein 3.9 L (6.3-8.2) g/dL Albumin 1.8 L (3.5-5.0) g/dL 09/22/21 09/22/21 09/22/21 Range/Units 05:43 06:01 12:39 RBC (4.30-5.90) m/uL Hgb (13.0-17.5) gm/dL Hct (39.0-53.0) % RDW (11.5-15.5) % ABG pO2 122 H (83-108) mmHg ABG Total CO2 26 H (19-24) mmol/L ABG O2 Saturation 98.5 H (94-97) % Chloride (98-107) mmol/L BUN (9-20) mg/dL Creatinine (0.66-1.25) mg/dL Glucose (74-99) mg/dL POC Glucose (mg/dL) 106 H 102 H (75-99) mg/dL Calcium (8.4-10.2) mg/dL Total Protein (6.3-8.2) g/dL Albumin (3.5-5.0) g/dL Assessment and Plan Assessment: -Acute gangrenous cholecystitis status post cholecystectomy. On 09/17. Continue with postop care. -Severe sepsis and hypotension, with acute hypoxic respiratory failure, current ly intubated. off pressors. With pulmonary/critical care team following closely. Also patient on Zosyn. -Chronic congestive heart failure. From diastolic dysfunction EF 55-60%: Hold diuretics for now -Acute blood loss anemia, requiring blood transfusion, most likely due was informed surgical site, follow-up hemoglobin -Acute kidney injury prerenal versus ATN: On renal Temporary replacement therapy on hemodialysis -Acute metabolic acidosis from worsening renal failure: -Acute severe hyperkalemia from metabolic acidosis: Better -Sinus tachycardia likely from sepsis -Anorexia multifactorial: Not improving Did not respond to Marinol. -Obesity BMI 34 -History of Adjustment disorder Seen by psychiatry. No medications. -Essential hypertension, currently blood pressure running low Hold off antihypertensive -History of Restless leg syndrome Requip .25 mg daily at bedtime -Diabetes mellitus type 2 on oral hypoglycemic, uncontrolled with hypoglycemia: Slow to respond Hold of oral hypoglycemic. Follow Accu-Cheks. -Hyperlipidemia Hold off Zocor because of muscle weakness -BPH Flomax 0.4 mg daily -COPD Advair 250/50 one puff twice a day. DuoNeb 4 times a day -Chronic medical debility from recent protracted hospitalization Patient eventually will need PTOT DVT prophylaxis: Lovenox on hold GI prophylaxis: Protonix Prognosis is guarded Time with Patient: Greater than 30
[2021-09-22 23:48] LABS: Glucose,Whole Blood 91 mg/dL (75-99)
[2021-09-23 04:15] LABS: Anisocytosis Slight; Basophils % (A) 1 %; Eosinophils # (A) 0.2 k/uL (0-0.7); Eosinophils % (A) 3 %; Hypochromasia Moderate; Lymphocytes # (A) 0.9 k/uL (1.0-4.8); Lymphocytes % (A) 10 %; MCH 30.4 pg (25.0-35.0); MCHC 32.1 g/dL (31.0-37.0); MCV 94.5 fL (80.0-100.0); Mean Platelet Volume 7.6; Monocytes # (A) 0.4 k/uL (0-1.0); Monocytes % (A) 4 %; Neutrophils # (A) 7.2 k/uL (1.3-7.7); Neutrophils % (A) 82 %; Platelet Count 289 k/uL (150-450); RBC 2.06 m/uL (4.30-5.90); RDW 18.2 % (11.5-15.5); WBC 8.8 k/uL (3.8-10.6)
[2021-09-23 04:29] LABS: HGB 6.2 gm/dL (13.0-17.5)
[2021-09-23 04:30] LABS: HCT 19.4 % (39.0-53.0)
[2021-09-23 04:33] LABS: Albumin 1.7 g/dL (3.5-5.0); Calcium 7.3 mg/dL (8.4-10.2); Potassium 3.4 mmol/L (3.5-5.1); Total Bilirubin 0.5 mg/dL (0.2-1.3); Total Protein 3.7 g/dL (6.3-8.2)
[2021-09-23 05:46] LABS: Glucose,Whole Blood 91 mg/dL (75-99)
[2021-09-23] MEDS: POTASSIUM CHLORIDE 20 MEQ in WATER FOR INJECTION 1 100ML.BAG IVPB SCH ×2 (05:48→08:28)
[2021-09-23] MEDS: INSULIN ASPART (NovoLOG) 100 UNIT/ML VIAL SQ SCH ×3 (06:03→20:49)
--- NOTE | 2021-09-23 07:21 | XR ---
EXAMINATION TYPE: XR chest 1V portable DATE OF EXAM: 09/23/2021 CLINICAL HISTORY: Difficulty breathing progress study. TECHNIQUE: Single AP portable semiupright view of the chest is obtained. COMPARISON: Chest x-ray from one day earlier and older studies FINDINGS: Interval extubation with removal of endotracheal and orogastric tubes. Stable left-sided i nternal jugular central venous catheter. Persistent low lung volumes and more prominent left mid to lower lung opacity . Cardiac silhouette si ze stable and mildly enlarged. Right lung remains predominantly clear. Osseous structures are intact. IMPRESSION: Interval extubation. Worsening left lower lung opacity consistent with small left pleural effusion and associated left lower lung infiltrate and/or atelectasis.
[2021-09-23] MEDS: IPRATROPIUM-ALBUTEROL 3 ML NEB INHALATION SCH ×4 (07:54→19:57)
[2021-09-23 08:24] LABS: Anisocytosis Slight; HCT 20.4 % (39.0-53.0); Hypochromasia Marked; MCH 29.9 pg (25.0-35.0); MCHC 31.4 g/dL (31.0-37.0); MCV 95.1 fL (80.0-100.0); Macrocytosis Slight; Platelet Count 300 k/uL (150-450); RBC 2.14 m/uL (4.30-5.90); RDW 18.6 % (11.5-15.5); WBC 9.6 k/uL (3.8-10.6)
[2021-09-23] MEDS: PANTOPRAZOLE 40 MG/10 ML VIAL IVP SCH (08:28)
[2021-09-23] MEDS: PIPERACILLIN-TAZOBACTAM 3.375 GM in SODIUM CHLORIDE 0.9% 100 ML IVPB SCH ×2 (08:29→22:09)
--- NOTE | 2021-09-23 08:42 | P.PN ---
Subjective Progress Note Date: 09/23/21 Principal diagnosis: Shortness of breath 61-year-old male patient, who was transferred to the hospital on 09/09/2021 from the custodial where he was residing. The patient was sent to medical [facility] for further rehabilitation as the patient had a prolonged hospitalization back in June 2021 that extended to July 2021. At that time, the patient had a very complicated course as the patient was intubated and placed on a mechanical ventilator on 06/25/2021. He presented to us hypothermic, had pneumonia and sepsis and complete opacification of the left lung. During the course of his illness, he Is negative for microbial growth and he also tested negative for COVID 19. He underwent bronchoscopy 2 on 06/27/2021 and 07/03/2021. His left lung gradually reexpanded. Post extubation, he was given BiPAP. He is known to have asthma, diabetes, hypertension, hyperlipidemia and obstructive sleep apnea and BPH. He was given aggressive chest PT, percussion, deep breathing and pulmonary toileting and based on his generalized weakness, he was sent for rehabilitation. During this current admission, the patient reports that he was not doing well. He does not get to the point where he was ambulatory. Obviously is a non-reliable historian. He states that he was not feeling well. He was feeling weak. He was not eating much. He did not like the food and his oral intake was quite diminished. He came into the ED with hypotension with a blood pressure of 70/50. The patient's potassium level initially was at 4.9 and the patient was in acute kidney injury. Subsequently, the potassium came up to 7.3. Various treatments done to improve the potassium and failed and ultimately, the patient got transferred to the ICU for hyperkalemia. He was given a dialysis catheter and he received a session of hemodialysis yesterday. This morning, his potassium level is down to 5.9. Creatinine is improving. Urine output is in order of 20-25 mL an hour. He has a dialysis catheter in his right groin. He has no signs of any respiratory distress. Chest x-rays unchanged and there is a stable atelectasis in left lung base. The patient remains about O2 and currently he is a 96% pulse ox. Most recent BP is 88/50 from this morning. He was noted to be tachycardic over the past 24 hours. Cardiac rhythm is sinus. White cell count is at low hemoglobin 15.7 and a platelet count of 195. Note. Indication of an underlying infection. The patient's UA was not showing any signs of infection. Blood cultures 2 were sent from admission are negative. He has stage II wounds. No significant cough sputum production. No wheezing. No altered mentation or headache or neck stiffness. In the ICU, give this patient a bolus of 1 L. I started him on IV Zosyn and IV. The ulcers. He is on Levemir insulin 16 units at bedtime along with a sliding scale coverage. On 09/13/2021 patient seen in follow-up in the intensive care unit. He is awake and alert, in no acute distress, he is resting comfortably in bed, denies any dyspnea. Room air pulse ox is 94%, patient is having hemodialysis treatment. He did wear CPAP support last night. Patient remains on empiric antibiotics with doxycycline and Zosyn. Patient continues to have low-grade fevers and a T- max in the last 24 hours was 101.6F at 8:00 in the morning yesterday. No cough, no chest discomfort, no hemoptysis. Hemodynamically stable, he is receiving IV fluids normal saline at a rate of 75 ML per hour. Breathing is nonlabored, comfortable. His chest x-ray on 09/11/2021 showed mild blunting of the left costophrenic angle, clear right lung. Today's labs have been reviewed with blood cell count is 7.6, hemoglobin is 11.3, platelet count is 194, sodium is 132, the rest of electrolytes were within normal limits, BUN is 47, creatinine is 3.22. Patient is not requiring any vasopressor support, echocardiogram has been completed showing moderate concentric LVH, EF of 55-60%, and severe enlargement of the right ventricle. On 09/14/2021 patient seen in follow-up on selective care unit, he is resting in bed, breathing comfortably, lung sounds are essentially clear to auscultation, no rhonchi no wheezing, denies any cough, no phlegm production or chest discomfort. She did wear his CPAP device at night. At the on room air pulse ox is 95%, he was dialyzed yesterday and 900 mL of fluid was removed with hemodialysis. No plans for hemodialysis today according to the patient. Today's labs have been reviewed, sodium is 135, the rest of electrolytes are within normal limits, BUN is 39, creatinine is 3.31. 4 sets of blood cultures have shown no growth thus far since admission. Unclear the source of possible infection, patient remains on antibiotics for empiric antibiotic coverage, as patient for pneumonia is low On 09/16/2021 patient seen in follow-up on medical surgical floor, he is resting in bed, does not appear to be in any acute distress, he is currently it is of oxygen, he is satting 96%, at night he is been wearing his CPAP device from home. Denies any worsening dyspnea, no complaints of chest discomfort, still has some mild generalized edema. Today's labs have been reviewed, white blood cell count is 8.9, hemoglobin is 11.7, sodium is 138, potassium is 4.2, chloride is 107, CO2 is 15, B1 is 35, creatinine is 4.09. Nephrology is following, and had hemodialysis treatment yesterday with removal 1.3 L of fluid. Appetite is fair, no nausea or vomiting, however patient is incontinent of liquid brown stool. Patient has had no fever or chills, his blood cultures have been negative, as of dyspnea or cough, no phlegm production, breathing comfortably, lung sounds are clear. His last chest x-ray was on 09/14/2021 grossly unremarkable lungs. On 09/17/2021 patient seen in follow-up in the recovery room. This morning patient was taken to surgery for cholecystectomy and he was found to have acute gangrenous cholecystitis with transmural necrosis of gallbladder wall. Following the procedure patient is still intubated and sedated in the recovery room, on assist control mode of ventilation with a rate of 12, tidal volume is 450, FiO2 of 100% and PEEP of 5. His peak air pressure is 28, plateau is 21, he is resting comfortably on a gurney in the recovery room, still sedated, Diprivan will be started, 0.9 normal saline at a rate of 75 ML per hour, his postoperative blood gas and chest x-ray are pending. This morning's labs have been reviewed, white blood cell count was 8.8, hemoglobin was 10.9, sodium is 136, potassium 3.8, BUN was 44, creatinine is 5.05, postoperative labs are pending. Patient continues on Zosyn for antibiotic coverage. Surgical incision is clean dry and intact, abdominal binder is in place, NG tube is in place to low intermittent suction. On 09/22/2021 patient seen in follow-up in intensive care unit. He is postoperative day #5 status post ectomy for acute gangrenous cholecystitis with transmural necrosis of the gallbladder wall. Patient remains intubated and sedated on assist control mode of ventilation with a rate of 12, tidal lung is 450, FiO2 of 30% and PEEP of 5, this morning's blood gas shows pO2 of 122, pCO2 of 39, and pH of 7.42 and this was done on the above-mentioned vent settings and FiO2 of 30%. Today's chest x-ray has been reviewed and left lower lobe atelectasis versus pneumonia and associated effusion. Patient required small amount of norepinephrine on and off through the night, it is currently weaned off. His blood pressure stable at 107/54. He is in sinus mechanism, slightly tachycardic with a rate of 1038 BPM, his 0.9 normal saline is a 60 ML per hour, Diprivan and is at 20 mics per kilo per minute. Sedation is currently on hold for possibility of spontaneous breathing trials. There has been no active bleeding overnight white blood cell count is improved and is down to 9.4, hemoglobin is 6.8, platelet count is 317, sodium is 140, potassium 3.6, chloride is 109, BUN is 22 creatinine is 2.93. Occult blood was positive on 09/19/2021. He did receive 2 units of pack red blood cells on 09/19/2021 and 1 unit of packed red blood cells yesterday on 09/21/2021. tube feedings are currently on hold for possibility of permacath dialysis port placement. CT of the abdomen and pelvis from yesterday was a suboptimal study and showed expected changes from cholecystectomy, percutaneous drainage catheter going through the gallbladder fossa and terminating in the midline anterior and superior to the gallbladder fossa. Ill-defined fluid and air at the level of the gallbladder f isa is nonspecific. There was soft tissue anasarca along with small bilateral pleural effusions and mild amount of intra-abdominal ascites, possibly related to fluid overload state. Patient has significant generalized edema, he isn't +1.5 L net fluid balance over the last 24 hours, overall is +27 kg in the last 7-10 days. Nephrology has been following. He is practically anuric, and the plan is to dialyze him today. In addition patient remains on antibiotics with Zosyn, 4 sets of blood cultures are negative. On 09/23/2021 patient is seen in follow-up in intensive care unit. Patient was s uccessfully weaned and extubated yesterday on 09/22/2021, he is awake and alert, he is oriented to person, a bit slow to respond, disoriented to place and time. Patient is breathing comfortably, he is on 4 L of oxygen pulse ox is 99%. Denies any shortness of breath, no cough. No tachypnea, no complaints of chest discomfort. Yesterday he had hemodialysis would removal of 2 L of fluid. Still quite generally fluid overloaded, his chest x-ray today shows interval extubation, worsening left lower lung opacity consistent with small left pleural effusion with associated left lower lung infiltrate. Today's labs have been reviewed, white blood cell count is 8.8, hemoglobin is 6.2 with no evidence of active bleeding, and platelet count was 289, sodium is 141, potassium 3.4, chloride is 113, when is 19, and creatinine is 2.93. Patient remains anuric. Physical incisions are clean dry and intact, minh are intact. Abdominal binder is in place, abdomen is nontender, patient had a bowel movement on Monday. He is thirsty and is asking for something to drink. We'll start him on clear liquids with surgical clearance this morning. Left subclavian triple lumen central line catheter insertion site is clean dry and intact, right groin hemodialysis catheter had been exchanged yesterday. Remains on Zosyn empirically, so far all blood cultures are negative. Objective - Vital Signs Vital signs: Vital Signs Temp 99.2 F 09/23/21 00:00 Pulse 101 H 09/23/21 08:07 Resp 18 09/23/21 07:00 BP 96/50 09/23/21 07:00 Pulse Ox 97 09/23/21 07:00 Intake & Output 09/22/21 09/23/21 09/23/21 18:59 06:59 18:59 Intake Total 691.26 580 60 Output Total 2270 205 0 Balance -1578.74 375 60 Weight 151.953 kg 153.314 kg Intake: IV 600 580 60 Piperacillin-Tazobactam 3 100 .375 gm In Sodium Chloride 0.9% 100 ml @ 25 mls/hr IVPB Q12HR ERINN Rx #:[id number] Potassium Chloride 20 meq 100 In Water For Injection 1 100ml.bag @ 50 mls/hr IVPB Q2H ERINN Rx#: [id number] Sodium Chloride 0.9% 1, 600 380 60 000 ml @ 50 mls/hr IV . Q20H ERINN Rx#:[id number] Intake, IV Titration 91.26 Amount propofoL 1,000 mg In 91.26 Empty Bag 1 bag @ 5 MCG/ KG/MIN 3.9 mls/hr IV . Q24H ERINN Rx#:[id number] Output: Drainage 130 Right Abdomen 130 Urine 50 5 0 Hemodialysis 1999 Other 220 70 Other: Voiding Method Indwelling Catheter Indwelling Catheter ABP, PAP, CO, CI - Last Documented Arterial Blood Pressure 131/60 - Exam GENERAL EXAM: Awake and alert 61-year-old white male, on 4 l/min with a pulse ox of 99 HEAD: Normocephalic/atraumatic. EYES: Normal reaction of pupils, equal size. Conjunctiva pink, sclera white. NOSE: Clear with pink turbinates. THROAT: No erythema or exudates. NECK: No masses, no JVD, no thyroid enlargement, no adenopathy. CHEST: No chest wall deformity. Symmetrical expansion. LUNGS: Equal air entry with no crackles, wheeze, rhonchi or dullness. CVS: Regular rate and rhythm, normal S1 and S2, no gallops, no murmurs, no rubs ABDOMEN: Soft, nontender. No hepatosplenomegaly, normal bowel sounds, no guarding or rigidity. Abdominal incisions are clean dry and intact, covered with the abdominal binder, minh intact, GRETCHEN drain is in place with small amount of sanguinous output EXTREMITIES: No clubbing, severe generalized edema, no cyanosis, 2+ pulses and upper and lower extremities. MUSCULOSKELETAL: Muscle strength and tone normal. SPINE: No scoliosis or deformity SKIN: No rashes CENTRAL NERVOUS SYSTEM: Awake and alert, oriented times one. No focal deficits, tone is normal in all 4 extremities. - Labs CBC & Chem 7: 09/23/21 08:16 09/23/21 03:45 Labs: Abnormal Lab Results - Last 24 Hours (Table) 03/09/22/21 09/23/21 Range/Units 06:10 12:39 03:45 RBC 2.06 L (4.30-5.90) m/uL Hgb 6.2 L* (13.0-17.5) gm/dL Hct 19.4 L* (39.0-53.0) % RDW 18.2 H (11.5-15.5) % Lymphocytes # 0.9 L (1.0-4.8) k/uL Potassium (3.5-5.1) mmol/L Chloride (98-107) mmol/L Creatinine (0.66-1.25) mg/dL POC Glucose (mg/dL) 102 H (75-99) mg/dL Calcium (8.4-10.2) mg/dL Total Protein (6.3-8.2) g/dL Albumin (3.5-5.0) g/dL Crossmatch See Detail 09/23/21 Range/Units 03:45 RBC (4.30-5.90) m/uL Hgb (13.0-17.5) gm/dL Hct (39.0-53.0) % RDW (11.5-15.5) % Lymphocytes # (1.0-4.8) k/uL Potassium 3.4 L (3.5-5.1) mmol/L Chloride 113 H (98-107) mmol/L Creatinine 2.93 H (0.66-1.25) mg/dL POC Glucose (mg/dL) (75-99) mg/dL Calcium 7.3 L (8.4-10.2) mg/dL Total Protein 3.7 L (6.3-8.2) g/dL Albumin 1.7 L (3.5-5.0) g/dL Crossmatch Assessment and Plan Plan: Assessment: #1. Acute gangrenous cholecystitis with transmural necrosis of the gallbladder wall, status post open cholecystectomy on 09/17/2021. #2. Routine postoperative ventilator management after open cholecystectomy on 09/17/2021, successfully weaned and extubated on 09/22/2021 #3. Acute kidney injury related to the above, and was initiated on hemodialysis, improving #4. Acute on chronic anemia, occult stool positive, s/p transfusion with 3 units of blood, current Hgb is 6.8, possibly related to GI blood loss anemia and acute kidney injury #5. Non-anion gap metabolic acidosis, improved #6. Acute hyperkalemia, resolved with hemodialysis, current potassium level is 3.6 #7. Hypotension sinus tachycardia related to acute sepsis, currently improved #8. Morbid obesity with BMI 41.8 #9. History of acute hypoxic respiratory failure on the mechanical ventilator back in mid June 2021 with left lung collapse post bronchoscopy 2 #10. Bronchial asthma, chronic, unspecified #11. Diabetes note this type II #12. Hyperlipidemia #13. Hypertension #14. Obstructive sleep apnea on CPAP therapy #15. BPH #16. Diarrhea, negative C. diff Plan: Today's chest x-ray and labs have been reviewed He was successfully weaned and extubated from the mechanical ventilatory yesterday Tolerating extubation quite well so far, currently on 4l/min Incentive spirometry to the bedside, encouraged the patient to use it Continue weaning FiO2 to keep O2 saturations at or above 90-92% Patient is still significantly fluid overloaded, The plan is to dialyze the patient again today Continue with antibiotics, Vital signs have been stable, not requiring any pressors, patient is afebrile, no new growth on the cultures Case discussed with surgery, Patient is okay to have clear liquid diet per surgical team Continue close monitoring in the ICU Follow-up labs tomorrow including CBC and BMP I have personally seen and examined the patient, performed the documentation and the assessment and plan as written. Number of minutes spent on the visit: [10] I have personally seen and examined the patient and reviewed the documentation. I performed a joint evaluation with the nurse practitioner in this evaluation was done more than 20 minutes. I fully agree with the documentation above and the plan of care.. The patient is currently extubated. The patient is currently a bit lethargic. The patient will undergo hemodialysis per nephrology. The patient has another drop in hemoglobin without any obvious signs of bleeding. The patient receiving another unit of packed RBC. General surgeries on the case. Surgical wound site is dry clean and intact. We'll keep the patient ICU for another 24 hours. Continue the supportive care. Wean down the FiO2. Dialysis. Antibiotics. We'll gradually advance the diet as tolera herman Time with Patient: Less than 30
[2021-09-23 08:46] LABS: HGB 6.4 gm/dL (13.0-17.5)
--- NOTE | 2021-09-23 08:58 | P.PN ---
Subjective Patient is seen in follow-up for acute kidney injury, currently hemodialysis dependent. Started on hemodialysis 09/12/2021. Off Levophed. Extubated 09/22/2021. Oliguric. Hemoglobin 6.4 this morning. No active bleeding. Patient is awake but quite lethargic. Vital signs are stable. Off Levophed. General: O2 mask noted. LUNGS: Breath sounds decreased. HEART: Tachycardic. ABDOMEN: Soft, no distention. EXTREMITITES: 1+ edema. Objective - Vital Signs Vital signs: Vital Signs Temp 97.8 F 09/23/21 08:00 Pulse 101 H 09/23/21 08:07 Resp 18 09/23/21 08:00 BP 95/65 09/23/21 08:00 Pulse Ox 98 09/23/21 08:00 Intake & Output 09/22/21 09/23/21 09/23/21 18:59 06:59 18:59 Intake Total 691.26 580 60 Output Total 2270 205 0 Balance -1578.74 375 60 Weight 151.953 kg 153.314 kg Intake: IV 600 580 60 Piperacillin-Tazobactam 3 100 .375 gm In Sodium Chloride 0.9% 100 ml @ 25 mls/hr IVPB Q12HR ERINN Rx #:[id number] Potassium Chloride 20 meq 100 In Water For Injection 1 100ml.bag @ 50 mls/hr IVPB Q2H ERINN Rx#: [id number] Sodium Chloride 0.9% 1, 600 380 60 000 ml @ 50 mls/hr IV . Q20H ERINN Rx#:[id number] Intake, IV Titration 91.26 Amount propofoL 1,000 mg In 91.26 Empty Bag 1 bag @ 5 MCG/ KG/MIN 3.9 mls/hr IV . Q24H ERINN Rx#:[id number] Output: Drainage 130 Right Abdomen 130 Urine 50 5 0 Hemodialysis 2000 Other 220 70 Other: Voiding Method Indwelling Catheter Indwelling Catheter Indwelling Catheter ABP, PAP, CO, CI - Last Documented Arterial Blood Pressure 131/60 - Labs CBC & Chem 7: 09/23/21 08:16 09/23/21 03:45 Labs: Abnormal Lab Results - Last 24 Hours (Table) 09/19/21 09/22/21 09/23/21 Range/Units 06:10 12:39 03:45 RBC 2.06 L (4.30-5.90) m/uL Hgb 6.2 L* (13.0-17.5) gm/dL Hct 19.4 L* (39.0-53.0) % RDW 18.2 H (11.5-15.5) % Lymphocytes # 0.9 L (1.0-4.8) k/uL Potassium (3.5-5.1) mmol/L Chloride (98-107) mmol/L Creatinine (0.66-1.25) mg/dL POC Glucose (mg/dL) 102 H (75-99) mg/dL Calcium (8.4-10.2) mg/dL Total Protein (6.3-8.2) g/dL Albumin (3.5-5.0) g/dL Crossmatch See Detail 09/23/21 09/23/21 Range/Units 03:45 08:16 RBC 2.14 L (4.30-5.90) m/uL Hgb 6.4 L* (13.0-17.5) gm/dL Hct 20.4 L (39.0-53.0) % RDW 18.6 H (11.5-15.5) % Lymphocytes # (1.0-4.8) k/uL Potassium 3.4 L (3.5-5.1) mmol/L Chloride 113 H (98-107) mmol/L Creatinine 2.93 H (0.66-1.25) mg/dL POC Glucose (mg/dL) (75-99) mg/dL Calcium 7.3 L (8.4-10.2) mg/dL Total Protein 3.7 L (6.3-8.2) g/dL Albumin 1.7 L (3.5-5.0) g/dL Crossmatch Assessment and Plan Plan: Assessment: 1. Acute kidney injury secondary to ATN secondary to hypotension. Creatinine was 0.77 on 08/10/2021. Patient started on hemodialysis in 09/12/2021 due to persistent hyperkalemia. Patient has a right groin catheter - exchanged 09/22/2021. Oliguric. 2. Hyperkalemia secondary to acute kidney injury, acidosis and use of JENSEN inhibitor prior to admission. Improved postdialysis. Now hypokalemic and being replaced. 3. Metabolic acidosis secondary to acute kidney injury. Improved. 4. Acute cholecystitis with gangrenous bladder status post open cholecystectomy on 09/17/2021. 5. Acute hypoxic respiratory failure. Extubated 09/22/2021. 6. Acute blood loss anemia. Hemoglobin 6.4 today. No active bleeding noted. Status post blood transfusion. Also received IV DDAVP. On Aranesp. Plan: Hemodialysis tomorrow. Avoid nephrotoxins. Continue to monitor renal function and urine output. Consider blood transfusion. Defer to surgery. Repeat DDAVP today. Phosphorus 3.8 dated 09/20/2021. Monitor for renal recovery.
[2021-09-23] MEDS ORDERED: DESMOPRESSIN ACETATE 21 MCG in SODIUM CHLORIDE 0.9% 50 ML IVPB ONE (09:30)
[2021-09-23 11:28] LABS: Glucose,Whole Blood 83 mg/dL (75-99)
--- NOTE | 2021-09-23 12:29 | P.PN ---
Progress Note - Text Progress Note Date: 09/23/21 Chief Complaint: Low blood pressure This is a 61-year-old patient, follows with Dr. Seda Schneider. Chronic stable medical conditions include diabetes, , hyperlipidemia, obstructive sleep apnea uses CPAP, herniated disc / injections,. Patient was in the hospital from 06/26/2021 through July 16 Admitted with pneumonia, severe hypothermia, acute hypoxic respiratory failure, possible sepsis, possible acute congestive heart failure exacerbation. Was intubated. Was discharged on intermittent BiPAP. Jefferson to have possible viral pneumonitis. Was negative for COVID. Was discharged to rehab. At the rehab patient had a poor appetite. Not really able to walk. Patient was at radio assembler up as found a very low blood pressure. Admitted. Denies any fever and chills. Actually eating better here. Has been having daily bowel movements. Occasional diarrhea. Does feel tired and rundown. Admitted with severe hypotension, acute kidney injury, hypoglycemia. Diuretics were held. IV hydration. PTOT. September 11: Lasted patient abdominal pain. Abdominal x-ray unremarkable. Surgery consulted. Patient's is present. Appetite is actually getting better. Continue IV fluids. Renal function worsening. Start bicarbonate drip. Coughing up some yellow sputum. Add doxycycline for acute bronchitis. Check creatinine kinase. Rule out rhabdomyolysis. September 12: Patient potassium persisted to be high yesterday. In spite of having several medications. Moved to the ICU. Nephrology consulted. Dialysis catheter was placed and patient received hemodialysis late last night. Poor appetite. Tired. Seen by psychiatry. Jefferson to have adjustment disorder. September 13: ICU: Tired and sleepy. Barely eating. I reviewed medications. Patient on Neurontin in the setting of acute kidney injury this can cause the patient to be lethargic. Cut back on the dose. Dialysis today. About half a liter removed. IV Zosyn. September 14: Patient started on Marinol yesterday. Still appetite is poor. Pharyngeal hygiene not good. Discussed with the nurse to get it clean. Including saltwater gargle. Patient bit more awake after cutting back dose of Neurontin. On IV Zosyn. September 15: Patient not really eating. Neurontin cutback 200 mg daily at bedtime. Reminded nurse about pharyngeal tolerate. Not much urine output. IV fluids increased to 130 mL an hour. Hypoglycemic. DC Lantus. September 16: Patient does complain of feeling depressed. Not eating. Patient was reevaluated by psychiatry. Jefferson to be adjustment disorder. Patient does not have any pain in the lower extremity except on movement. cutback Requip. .25 mg daily at bedtime. It is cleared through the renal route. Getting a neurological evaluation. The unlikely will check patient's ammonia level. Also spoke to the about possible feeding tube. Given poor oral intake. Patient only eating a few bites here and there September 17: Patient taken to the OR. Dr. Renetta Santillan the patient's found to have a gangrenous gallbladder. GRETCHEN drain. Patient taken to the ICU postprocedure. On the ventilator. IV propofol. Spoke to patient's family including the at the bedside. September 21: ICU: I assumed care of patient today. He was extubated yesterday. On 2 L nasal cannula. Globin 6.4. 1 unit of blood ordered. Clear liquid diet. GRETCHEN drain in place. Draining serosanguineous. at the bedside. Weakness. Right femoral dialysis catheter. Patient getting DDAVP today. For hemodialysis tomorrow. Active Medications Acetaminophen (Acetaminophen Tab 325 Mg Tab) 650 mg PO Q6HR PRN PRN Reason: Mild Pain or Fever > 100.5 Last Admin: 09/12/21 20:09 Dose: 650 mg Documented by: Albuterol/Ipratropium (Ipratropium-Albuterol 3 Ml Neb) 3 ml INHALATION RT-QID [facility] Last Admin: 09/23/21 10:57 Dose: 3 ml Documented by: Albuterol/Ipratropium (Ipratropium-Albuterol 3 Ml Neb) 3 ml INHALATION RT-Q2H PRN PRN Reason: Shortness Of Breath Or Wheezing Darbepoetin Arthur (Darbepoetin Arthur 40 Mcg/0.4 Ml Syringe) 40 mcg SQ Q7D [facility] Last Admin: 09/21/21 15:54 Dose: 40 mcg Documented by: Gabapentin (Gabapentin 100 Mg Cap) 100 mg PO HS [facility] Last Admin: 09/22/21 20:39 Dose: 100 mg Documented by: Hydromorphone HCl (Hydromorphone 1 Mg/Ml 1 Ml Syringe) 1 mg IVP Q3HR PRN PRN Reason: Pain Last Admin: 09/18/21 02:37 Dose: 1 mg Documented by: Piperacillin Sod/Tazobactam (Sod 3.375 gm/ Sodium Chloride) 100 mls @ 25 mls/hr IVPB Q12HR [facility]; Protocol Last Admin: 09/23/21 08:29 Dose: 25 mls/hr Documented by: Propofol 1,000 mg/ IV Solution 100 mls @ 3.9 mls/hr IV .Q24H [facility]; Protocol Last Admin: 09/22/21 15:33 Dose: 10 mcg/kg/min, 7.8 mls/hr Documented by: Norepinephrine Bitartrate 32 (mg/ Sodium Chloride) 250 mls @ 3.047 mls/hr IV .Q24H [facility]; Protocol Last Titration: 09/22/21 04:23 Dose: 0.03 mcg/kg/min, 1.828 mls/hr Documented by: Insulin Aspart (Insulin Aspart (Novolog) 100 Unit/Ml Vial) 0 unit SQ Q6HR [facility]; Protocol Last Admin: 09/23/21 11:34 Dose: Not Given Documented by: Miscellaneous Information (Potassium Replacement Protocol 1 Each Misc) 1 each MISCELLANE DAILY PRN; Protocol PRN Reason: Per Protocol Naloxone HCl (Naloxone 0.4 Mg/Ml 1 Ml Vial) 0.2 mg IV Q2M PRN PRN Reason: Opioid Reversal Pantoprazole Sodium (Pantoprazole 40 Mg/10 Ml Vial) 40 mg IVP DAILY [facility] Last Admin: 09/23/21 08:28 Dose: 40 mg Documented by: Past medical history to include: COPD, asthma, diabetes, hypertension, hyperlipidemia, obstructive sleep apnea uses CPAP, herniated disc uses injections, pneumonia June 2021 patient intubated Social history: Alcohol occasionally. Occasional cigar. Marijuana occasionally. . At rehab Family history: Skin cancer, macular degeneration Physical examination: VITAL SIGNS: 98.7, 107, 16, 111/75, 100% on 3 daughters GENERAL: laying in bed, awake, tired EYES: Pupils equal. Conjunctiva normal. HEENT: External appearance of nose and ears normal, oral cavity endotracheal tube NECK: JVD not raised; masses not palpable. HEART: First and second heart sounds are normal; no edema. LUNGS: Respiratory rate increased; decreased breath sounds ABDOMEN: Soft, some tenderness, no guarding rigidity GRETCHEN drain, binder liver spleen not palpable, no masses palpable. PSYCH: Answering questions appropriately. Mood and affect a bit low MUSCULOSKELETAL:No Clubbing/cyanosis;muscles-grossly intact NEUROLOGICAL: Cranial nerves grossly intact; no facial asymmetry, decreased power lower extremity. INVESTIGATIONS, reviewed in the clinical context: September 21: White count 9.60 globin 6.4 platelets 300 potassium 3.4 creatinine 2.93 September 17: White count 8.8 hemoglobin 10.9 platelets relevant potassium 3.8 BUN 44 creatinine 5.05 September 16: White count 8.9 hemoglobin 11.7 potassium 4.2 BUN 35 creatinine 4.09 September 14: Sodium 135 BUN 39 creatinine 3.31. Blood glucose 64 September 13: White count 7.6 hemoglobin 10.3 platelets 1944.9 BUN 47 creatinine 3.2 to September 12: White count 12.1-year-old and 30.7 sodium 134 potassium 5.9 BUN 38 creatinine 2.76 September 11: Sodium 131 potassium 7.2 BUN 48 creatinine 3.73 White count 6.8 hemoglobin 13.8 platelets 244 sodium 136 potassium 4.9 BUN 40 creatinine 3.41. EKG tracing personally reviewed by me-sinus rhythm, right bundle branch block. Some T waves abnormalities Chest x-ray film personally reviewed by me-possible chronic changes Blood Glucose 36 Assessment and plan: -Severe hypotension, from acute kidney injury from decreased oral intake: Better -Acute metabolic encephalopathy : Better Neurology consult -Chronic congestive heart failure. From diastolic dysfunction EF 55-60%: Hold diuretics for now -Acute kidney injury ATN from hypotension: On renal replacement therapy on hemodialysis -Acute metabolic acidosis from worsening renal failure: Better bicarbonate drip-discontinued. Oral bicarbonate -Acute severe hyperkalemia from metabolic acidosis: Better -Sinus tachycardia likely from sepsis -Anorexia multifactorial: Not improving Did not respond to Marinol. Advance diet as tolerated -Gangrenous cholecystitis followed by cholecystectomy. IV Zosyn. Cholecystectomy on September [address] Jackson -Sepsis. Secondary to gangrenous cholecystitis Zosyn. 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 -Obesity BMI 51.4 -Adjustment disorder Seen by psychiatry. No medications. -Essential hypertension, currently blood pressure running low Hold off antihypertensive -Restless leg syndrome Requip .25 mg daily at bedtime -Diabetes mellitus type 2 on oral hypoglycemic, uncontrolled with hypoglycemia: Slow to respond Hold of oral hypoglycemic. Follow Accu-Cheks. -Hyperlipidemia Hold off Zocor because of muscle weakness -BPH Flomax 0.4 mg daily -COPD Advair 250/50 one puff twice a day [currently held]. DuoNeb 4 times a day -Chronic medical debility from recent protracted hospitalization PTOT -Full code IV Zosyn. GRETCHEN drain. Liquid diet. Diet being advanced. Discussed with the at the bedside.
--- NOTE | 2021-09-23 14:54 | P.PN ---
Subjective Progress Note Date: 09/23/21 CHIEF COMPLAINT: Abdominal pain HISTORY OF PRESENT ILLNESS: Patient remains in the ICU. Patient was extubated yesterday. He has a temporary hemodialysis catheter placed yesterday. He is postop day #6 status post open cholecystectomy for acute gangrenous cholecystitis with transmural necrosis of gallbladder wall. Patient has had no further bleeding from his incision. Patient did have a drop in his hemoglobin down to 6.4. He is receiving a unit of blood today. GRETCHEN drain with 130 serosanguineous output and 12 hours. Afebrile. Tachycardic. WBC 9.6 PHYSICAL EXAM: VITAL SIGNS: Reviewed. GENERAL: Intubated HEENT: Moist buccal mucosa. Head is atraumatic, normocephalic. ABDOMEN: Soft. Nondistended. His incision clean dry and intact. GRETCHEN drain with serosanguineous output. ASSESSMENT: 1. Acute gangrenous cholecystitis status post open cholecystectomy 2. Acute kidney injury requiring hemodialysis 3. Anemia PLAN: -Transfuse 1 unit of packed red blood cells for hemoglobin of 6.4 -Continue to monitor hemoglobin -Continue ICU management -Continue supportive care -Continue antibiotics Physician Textile Knitter note has been reviewed by physician. Signing provider agrees with the documented findings, assessment, and plan of care. Objective - Vital Signs Vital signs: Vital Signs Temp 98.7 F 09/23/21 13:06 Pulse 102 H 09/23/21 14:00 Resp 15 09/23/21 14:00 BP 107/73 09/23/21 14:00 Pulse Ox 98 09/23/21 14:00 Intake & Output 09/22/21 09/23/21 09/23/21 18:59 06:59 18:59 Intake Total 691.26 580 491 Output Total 2270 205 35 Balance -1578.74 375 456 Weight 151.953 kg 153.314 kg 153.314 kg Intake: IV 600 580 60 Piperacillin-Tazobactam 3 100 .375 gm In Sodium Chloride 0.9% 100 ml @ 25 mls/hr IVPB Q12HR [facility] Rx #:[id number] Potassium Chloride 20 meq 100 In Water For Injection 1 100ml.bag @ 50 mls/hr IVPB Q2H [facility] Rx#: [id number] Sodium Chloride 0.9% 1, 600 380 60 000 ml @ 50 mls/hr IV . Q20H [facility] Rx#:[id number] Intake, IV Titration . 150 Amount Sodium Chloride 0.9% 500 150 ml 500 ml @ 0 mls/hr IV . [facility] Rx#: [id number] propofoL 1,000 mg In . Empty Bag 1 bag @ 5 MCG/ KG/MIN 3.9 mls/hr IV . Q24H [facility] Rx#:[id number] Blood Product 281 Rc Pheresis 2 As3 Unit 281 [id number] Output: Drainage 130 10 Right Abdomen 130 10 Urine 50 5 25 Hemodialysis 2000 Other 220 70 Other: Voiding Method Indwelling Catheter Indwelling Catheter Indwelling Catheter # Bowel Movements 1 ABP, PAP, CO, CI - Last Documented Arterial Blood Pressure 131/60 - Labs CBC & Chem 7: 09/23/21 08:16 09/23/21 03:45 Labs: Abnormal Lab Results - Last 24 Hours (Table) 09/19/21 09/23/21 09/23/21 Range/Units 06:10 03:45 03:45 RBC 2.06 L (4.30-5.90) m/uL Hgb 6.2 L* (13.0-17.5) gm/dL Hct 19.4 L* (39.0-53.0) % RDW 18.2 H (11.5-15.5) % Lymphocytes # 0.9 L (1.0-4.8) k/uL Potassium 3.4 L (3.5-5.1) mmol/L Chloride 113 H (98-107) mmol/L Creatinine 2.93 H (0.66-1.25) mg/dL Calcium 7.3 L (8.4-10.2) mg/dL Total Protein 3.7 L (6.3-8.2) g/dL Albumin 1.7 L (3.5-5.0) g/dL Crossmatch See Detail 09/23/21 09/23/21 Range/Units 08:16 08:34 RBC 2.14 L (4.30-5.90) m/uL Hgb 6.4 L* (13.0-17.5) gm/dL Hct 20.4 L (39.0-53.0) % RDW 18.6 H (11.5-15.5) % Lymphocytes # (1.0-4.8) k/uL Potassium (3.5-5.1) mmol/L Chloride (98-107) mmol/L Creatinine (0.66-1.25) mg/dL Calcium (8.4-10.2) mg/dL Total Protein (6.3-8.2) g/dL Albumin (3.5-5.0) g/dL Crossmatch See Detail
[2021-09-23] MEDS: NOREPINEPHRINE 32 MG in SODIUM CHLORIDE 0.9% 218 ML IV SCH (15:57)
[2021-09-23 19:05] LABS: Glucose,Whole Blood 175 mg/dL (75-99)
[2021-09-23] MEDS: GABAPENTIN 100 MG CAP PO SCH (22:09)
[2021-09-24 00:14] LABS: Glucose,Whole Blood 120 mg/dL (75-99)
[2021-09-24] MEDS: INSULIN ASPART (NovoLOG) 100 UNIT/ML VIAL SQ SCH ×4 (00:32→18:21)
[2021-09-24 04:16] LABS: Anisocytosis Slight; HCT 23.9 % (39.0-53.0); HGB 7.3 gm/dL (13.0-17.5); Hypochromasia Moderate; MCH 28.4 pg (25.0-35.0); MCHC 30.6 g/dL (31.0-37.0); MCV 92.8 fL (80.0-100.0); Mean Platelet Volume 7.4; Platelet Count 309 k/uL (150-450); RBC 2.58 m/uL (4.30-5.90); RDW 19.1 % (11.5-15.5); WBC 9.4 k/uL (3.8-10.6)
[2021-09-24 04:23] LABS: Calcium 7.5 mg/dL (8.4-10.2); Potassium 3.7 mmol/L (3.5-5.1)
--- NOTE | 2021-09-24 08:20 | XR ---
EXAMINATION TYPE: XR chest 1V portable DATE OF EXAM: 09/24/2021 Comparison: 09/23/2021 Clinical History: 61-year-old male pulmonary infiltrates Findings: Left CVC tip at the mid SVC level. Heart upper limits of normal in size. Patient is oblique towards t he right. Similar mild increased densities left hemithorax and patchy retrocardiac opacity. Aeration is improving in the right lower lung. Impression: Similar borderline heart size. Hazy density similar on the left along with retrocardiac atelectasis a nd/or infiltrate. Aeration has improved at the right base.
[2021-09-24] MEDS: IPRATROPIUM-ALBUTEROL 3 ML NEB INHALATION SCH ×4 (08:46→19:32)
[2021-09-24] MEDS ORDERED: POTASSIUM CHLORIDE ER 20 MEQ TAB.ER PO STA (09:17)
[2021-09-24] MEDS ORDERED: FUROSEMIDE 10 MG/ML 10 ML VIAL IV STA (09:18)
--- NOTE | 2021-09-24 09:18 | P.PN ---
Subjective Patient is seen in follow-up for acute kidney injury, currently hemodialysis dependent. Started on hemodialysis 09/12/2021. Off Levophed. Extubated 09/22/2021. Oliguric. Hemoglobin improved post blood transfusion. No active bleeding. Resting in bed. On CPAP. Tolerating liquid diet. Vital signs are stable. Off Levophed. General: On CPAP. LUNGS: Breath sounds decreased. HEART: Tachycardic. ABDOMEN: Soft, no distention. EXTREMITITES: 1+ edema. Objective - Vital Signs Vital signs: Vital Signs Temp 98.7 F 09/24/21 00:00 Pulse 102 H 09/24/21 07:00 Resp 18 09/24/21 07:00 BP 101/62 09/24/21 07:00 Pulse Ox 92 L 09/24/21 07:00 Intake & Output 09/23/21 09/24/21 09/24/21 18:59 06:59 18:59 Intake Total 611 420 20 Output Total 45 5 0 Balance 566 415 20 Weight 153.314 kg 154.2 kg Intake: IV 60 390 20 0.9 290 20 Piperacillin-Tazobactam 3 100 .375 gm In Sodium Chloride 0.9% 100 ml @ 25 mls/hr IVPB Q12HR [facility] Rx #:[id number] Sodium Chloride 0.9% 1, 60 000 ml @ 50 mls/hr IV . Q20H [facility] Rx#:[id number] Intake, IV Titration 270 30 Amount Sodium Chloride 0.9% 500 270 30 ml 500 ml @ 0 mls/hr IV . [facility] Rx#: [id number] Blood Product 281 Rc Pheresis 2 As3 Unit 281 [id number] Output: Drainage 10 Right Abdomen 10 Urine 35 5 0 Other: Voiding Method Indwelling Catheter Indwelling Catheter # Bowel Movements 1 1 ABP, PAP, CO, CI - Last Documented Arterial Blood Pressure 131/60 - Labs CBC & Chem 7: 09/24/21 03:30 09/24/21 03:30 Labs: Abnormal Lab Results - Last 24 Hours (Table) 09/23/21 09/23/21 09/24/21 Range/Units 08:34 19:04 00:12 RBC (4.30-5.90) m/uL Hgb (13.0-17.5) gm/dL Hct (39.0-53.0) % MCHC (31.0-37.0) g/dL RDW (11.5-15.5) % Chloride (98-107) mmol/L BUN (9-20) mg/dL Creatinine (0.66-1.25) mg/dL Glucose (74-99) mg/dL POC Glucose (mg/dL) 175 H 120 H (75-99) mg/dL Calcium (8.4-10.2) mg/dL Crossmatch See Detail 09/24/21 09/24/21 Range/Units 03:30 03:30 RBC 2.58 L (4.30-5.90) m/uL Hgb 7.3 L (13.0-17.5) gm/dL Hct 23.9 L (39.0-53.0) % MCHC 30.6 L (31.0-37.0) g/dL RDW 19.1 H (11.5-15.5) % Chloride 113 H (98-107) mmol/L BUN 24 H (9-20) mg/dL Creatinine 3.63 H (0.66-1.25) mg/dL Glucose 113 H (74-99) mg/dL POC Glucose (mg/dL) (75-99) mg/dL Calcium 7.5 L (8.4-10.2) mg/dL Crossmatch Assessment and Plan Plan: Assessment: 1. Acute kidney injury secondary to ATN secondary to hypotension. Creatinine was 0.77 on 08/10/2021. Patient started on hemodialysis in 09/12/2021 due to persistent hyperkalemia. Patient has a right groin catheter - exchanged 09/22/2021. Oliguric. 2. Hyperkalemia secondary to acute kidney injury, acidosis and use of JENSEN inhibitor prior to admission. Improved postdialysis. Now hypokalemic and being replaced. 3. Metabolic acidosis secondary to acute kidney injury. Improved. 4. Acute cholecystitis with gangrenous bladder status post open cholecystectomy on 09/17/2021. 5. Acute hypoxic respiratory failure. Extubated 09/22/2021. 6. Acute blood loss anemia. Hemoglobin 7.3. No active bleeding noted. Status post blood transfusion. Also received IV DDAVP. On Aranesp. Plan: Hemodialysis today. Plan for another treatment tomorrow as patient is oliguric. Avoid nephrotoxins. Continue to monitor renal function and urine output. Phosphorus 3.8 dated 09/20/2021. Monitor for renal recovery. If no recovery in renal function, will need removal of groin catheter and permacath insertion. Lasix 80 mg IV once today.
[2021-09-24] MEDS: PANTOPRAZOLE 40 MG/10 ML VIAL IVP SCH (09:40)
[2021-09-24] MEDS: PIPERACILLIN-TAZOBACTAM 3.375 GM in SODIUM CHLORIDE 0.9% 100 ML IVPB SCH ×2 (09:40→21:16)
[2021-09-24] MEDS: METOPROLOL TARTRATE 25 MG TAB PO SCH ×2 (09:45→21:15)
--- NOTE | 2021-09-24 10:02 | P.PN ---
Subjective Progress Note Date: 09/24/21 Principal diagnosis: Shortness of breath 61-year-old male patient, who was transferred to the hospital on 09/09/2021 from [facility] where he [facility]. The patient was sent to medical [place] for further rehabilitation as the patient had a prolonged hospitalization back in June 2021 that extended to July 2021. At that time, the patient had a very complicated course as the patient was intubated and placed on a mechanical ventilator on 06/25/2021. He presented to us hypothermic, had pneumonia and sepsis and complete opacification of the left lung. During the course of his illness, he Is negative for microbial growth and he also tested negative for COVID 19. He underwent bronchoscopy 2 on 06/27/2021 and 07/03/2021. His left lung gradually reexpanded. Post extubation, he was given BiPAP. He is known to have asthma, diabetes, hypertension, hyperlipidemia and obstructive sleep apnea and BPH. He was given aggressive chest PT, percussion, deep breathing and pulmonary toileting and based on his generalized weakness, he was sent for rehabilitation. During this current admission, the patient reports that he was not doing well. He does not get to the point where he was ambulatory. Obviously is a non-reliable historian. He states that he was not feeling well. He was feeling weak. He was not eating much. He did not like the food and his oral intake was quite diminished. He came into the ED with hypotension with a blood pressure of 70/50. The patient's potassium level initially was at 4.9 and the patient was in acute kidney injury. Subsequently, the potassium came up to 7.3. Various treatments done to improve the potassium and failed and ultimately, the patient got transferred to the ICU for hyperkalemia. He was given a dialysis catheter and he received a session of hemodialysis yesterday. This morning, his potassium level is down to 5.9. Creatinine is improving. Urine output is in order of 20-25 mL an hour. He has a dialysis catheter in his right groin. He has no signs of any respiratory distress. Chest x-rays unchanged and there is a stable atelectasis in left lung base. The patient remains about O2 and currently he is a 96% pulse ox. Most recent BP is 88/50 from this morning. He was noted to be tachycardic over the past 24 hours. Cardiac rhythm is sinus. White cell count is at low hemoglobin 15.7 and a platelet count of 195. Note. Indication of an underlying infection. The patient's UA was not showing any signs of infection. Blood cultures 2 were sent from admission are negative. He has stage II wounds. No significant cough sputum production. No wheezing. No altered mentation or headache or neck stiffness. In the ICU, give this patient a bolus of 1 L. I started him on IV Zosyn and IV. The ulcers. He is on Levemir insulin 16 units at bedtime along with a sliding scale coverage. On 09/13/2021 patient seen in follow-up in the intensive care unit. He is awake and alert, in no acute distress, he is resting comfortably in bed, denies any dyspnea. Room air pulse ox is 94%, patient is having hemodialysis treatment. He did wear CPAP support last night. Patient remains on empiric antibiotics with doxycycline and Zosyn. Patient continues to have low-grade fevers and a T- max in the last 24 hours was 101.6F at 8:00 in the morning yesterday. No cough, no chest discomfort, no hemoptysis. Hemodynamically stable, he is receiving IV fluids normal saline at a rate of 75 ML per hour. Breathing is nonlabored, comfortable. His chest x-ray on 09/11/2021 showed mild blunting of the left costophrenic angle, clear right lung. Today's labs have been reviewed with blood cell count is 7.6, hemoglobin is 11.3, platelet count is 194, sodium is 132, the rest of electrolytes were within normal limits, BUN is 47, creatinine is 3.22. Patient is not requiring any vasopressor support, echocardiogram has been completed showing moderate concentric LVH, EF of 55-60%, and severe enlargement of the right ventricle. On 09/14/2021 patient seen in follow-up on selective care unit, he is resting in bed, breathing comfortably, lung sounds are essentially clear to auscultation, no rhonchi no wheezing, denies any cough, no phlegm production or chest discomfort. She did wear his CPAP device at night. At the on room air pulse ox is 95%, he was dialyzed yesterday and 900 mL of fluid was removed with hemodialysis. No plans for hemodialysis today according to the patient. Today's labs have been reviewed, sodium is 135, the rest of electrolytes are within normal limits, BUN is 39, creatinine is 3.31. 4 sets of blood cultures have shown no growth thus far since admission. Unclear the source of possible infection, patient remains on antibiotics for empiric antibiotic coverage, as patient for pneumonia is low On 09/16/2021 patient seen in follow-up on medical surgical floor, he is resting in bed, does not appear to be in any acute distress, he is currently it is of oxygen, he is satting 96%, at night he is been wearing his CPAP device from home. Denies any worsening dyspnea, no complaints of chest discomfort, still has some mild generalized edema. Today's labs have been reviewed, white blood cell count is 8.9, hemoglobin is 11.7, sodium is 138, potassium is 4.2, chloride is 107, CO2 is 15, B1 is 35, creatinine is 4.09. Nephrology is following, and had hemodialysis treatment yesterday with removal 1.3 L of fluid. Appetite is fair, no nausea or vomiting, however patient is incontinent of liquid brown stool. Patient has had no fever or chills, his blood cultures have been negative, as of dyspnea or cough, no phlegm production, breathing comfortably, lung sounds are clear. His last chest x-ray was on 09/14/2021 grossly unremarkable lungs. On 09/17/2021 patient seen in follow-up in the recovery room. This morning patient was taken to surgery for cholecystectomy and he was found to have acute gangrenous cholecystitis with transmural necrosis of gallbladder wall. Following the procedure patient is still intubated and sedated in the recovery room, on assist control mode of ventilation with a rate of 12, tidal volume is 450, FiO2 of 100% and PEEP of 5. His peak air pressure is 28, plateau is 21, he is resting comfortably on a gurney in the recovery room, still sedated, Diprivan will be started, 0.9 normal saline at a rate of 75 ML per hour, his postoperative blood gas and chest x-ray are pending. This morning's labs have been reviewed, white blood cell count was 8.8, hemoglobin was 10.9, sodium is 136, potassium 3.8, BUN was 44, creatinine is 5.05, postoperative labs are pending. Patient continues on Zosyn for antibiotic coverage. Surgical incision is clean dry and intact, abdominal binder is in place, NG tube is in place to low intermittent suction. On 09/22/2021 patient seen in follow-up in intensive care unit. He is postoperative day #5 status post ectomy for acute gangrenous cholecystitis with transmural necrosis of the gallbladder wall. Patient remains intubated and sedated on assist control mode of ventilation with a rate of 12, tidal lung is 450, FiO2 of 30% and PEEP of 5, this morning's blood gas shows pO2 of 122, pCO2 of 39, and pH of 7.42 and this was done on the above-mentioned vent settings and FiO2 of 30%. Today's chest x-ray has been reviewed and left lower lobe atelectasis versus pneumonia and associated effusion. Patient required small amount of norepinephrine on and off through the night, it is currently weaned off. His blood pressure stable at 107/54. He is in sinus mechanism, slightly tachycardic with a rate of 1038 BPM, his 0.9 normal saline is a 60 ML per hour, Diprivan and is at 20 mics per kilo per minute. Sedation is currently on hold for possibility of spontaneous breathing trials. There has been no active bleeding overnight white blood cell count is improved and is down to 9.4, hemoglobin is 6.8, platelet count is 317, sodium is 140, potassium 3.6, chloride is 109, BUN is 22 creatinine is 2.93. Occult blood was positive on 09/19/2021. He did receive 2 units of pack red blood cells on 09/19/2021 and 1 unit of packed red blood cells yesterday on 09/21/2021. tube feedings are currently on hold for possibility of permacath dialysis port placement. CT of the abdomen and pelvis from yesterday was a suboptimal study and showed expected changes from cholecystectomy, percutaneous drainage catheter going through the gallbladder fossa and terminating in the midline anterior and superior to the gallbladder fossa. Ill-defined fluid and air at the level of the gallbladder f isa is nonspecific. There was soft tissue anasarca along with small bilateral pleural effusions and mild amount of intra-abdominal ascites, possibly related to fluid overload state. Patient has significant generalized edema, he isn't +1.5 L net fluid balance over the last 24 hours, overall is +27 kg in the last 7-10 days. Nephrology has been following. He is practically anuric, and the plan is to dialyze him today. In addition patient remains on antibiotics with Zosyn, 4 sets of blood cultures are negative. On 09/23/2021 patient is seen in follow-up in intensive care unit. Patient was s uccessfully weaned and extubated yesterday on 09/22/2021, he is awake and alert, he is oriented to person, a bit slow to respond, disoriented to place and time. Patient is breathing comfortably, he is on 4 L of oxygen pulse ox is 99%. Denies any shortness of breath, no cough. No tachypnea, no complaints of chest discomfort. Yesterday he had hemodialysis would removal of 2 L of fluid. Still quite generally fluid overloaded, his chest x-ray today shows interval extubation, worsening left lower lung opacity consistent with small left pleural effusion with associated left lower lung infiltrate. Today's labs have been reviewed, white blood cell count is 8.8, hemoglobin is 6.2 with no evidence of active bleeding, and platelet count was 289, sodium is 141, potassium 3.4, chloride is 113, when is 19, and creatinine is 2.93. Patient remains anuric. Physical incisions are clean dry and intact, minh are intact. Abdominal binder is in place, abdomen is nontender, patient had a bowel movement on Monday. He is thirsty and is asking for something to drink. We'll start him on clear liquids with surgical clearance this morning. Left subclavian triple lumen central line catheter insertion site is clean dry and intact, right groin hemodialysis catheter had been exchanged yesterday. Remains on Zosyn empirically, so far all blood cultures are negative. On 09/24/2021 patient seen in follow-up in intensive care units. He is awake and alert, oriented to person and place, coming comfortable, denies any acute distress, denies any difficulty breathing, room air pulse ox the 100%, he wore his CPAP device from home last night. Hemodynamically has remained stable, he is in sinus mechanism with a rate of 108, blood pressure is 151/99 this morning, recent was not dialyzed yesterday but he is having hemodialysis treatment today. The dose of IV Lasix 80 mg per nephrology this morning, today's chest x-ray showing hazy density on the left along with retrocardiac atelectasis and/or infiltrate. And improved aeration at the right base. Patient has been tolerating clear liquid diet, no nausea vomiting or diarrhea, no signs of active bleeding, yesterday she received a unit of blood hemoglobin of 6.4, today's hemoglobin is up to 7.3, his white blood cell count today is 9.4, platelet count is 309, sodium is 142, potassium is 3.7, chloride is 113, CO2 is 23, BUN is 24, creatinine is 3.63. His urine output has been 0 ML per hour for the most part, 40 mL this morning after the dose of Lasix. Overall he is in +981 mL net fluid balance over the last 24 hours, he does have moderate generalized edema, right groin temporary hemodialysis catheter is in place. Generally patient is quite weak. Physical therapy on consultation, patient has not been up out of bed yet Objective - Vital Signs Vital signs: Vital Signs Temp 98 F 09/24/21 09:00 Pulse 96 09/24/21 09:00 Resp 20 09/24/21 09:00 BP 110/68 09/24/21 09:00 Pulse Ox 100 09/24/21 09:00 Intake & Output 09/23/21 09/24/21 09/24/21 18:59 06:59 18:59 Intake Total 611 420 60 Output Total 45 5 40 Balance 566 415 20 Weight 153.314 kg 154.2 kg Intake: IV 60 390 60 0.9 290 60 Piperacillin-Tazobactam 3 100 .375 gm In Sodium Chloride 0.9% 100 ml @ 25 mls/hr IVPB Q12HR [facility] Rx #:[id number] Sodium Chloride 0.9% 1, 60 000 ml @ 50 mls/hr IV . Q20H [facility] Rx#:[id number] Intake, IV Titration 270 30 Amount Sodium Chloride 0.9% 500 270 30 ml 500 ml @ 0 mls/hr IV . [facility] Rx#: [id number] Blood Product 281 Rc Pheresis 2 As3 Unit 281 [id number] Output: Drainage 10 Right Abdomen 10 Urine 35 5 40 Other: Voiding Method Indwelling Catheter Indwelling Catheter # Bowel Movements 1 1 ABP, PAP, CO, CI - Last Documented Arterial Blood Pressure 131/60 - Exam GENERAL EXAM: Awake and alert 61-year-old white male, on room air with a pulse ox of 99 HEAD: Normocephalic/atraumatic. EYES: Normal reaction of pupils, equal size. Conjunctiva pink, sclera white. NOSE: Clear with pink turbinates. THROAT: No erythema or exudates. NECK: No masses, no JVD, no thyroid enlargement, no adenopathy. CHEST: No chest wall deformity. Symmetrical expansion. LUNGS: Equal air entry with no crackles, wheeze, rhonchi or dullness. CVS: Regular rate and rhythm, normal S1 and S2, no gallops, no murmurs, no rubs ABDOMEN: Soft, nontender. No hepatosplenomegaly, normal bowel sounds, no guarding or rigidity. Abdominal incisions are clean dry and intact, covered with the abdominal binder, minh intact, GRETCHEN drain is in place with small amount of sanguinous output EXTREMITIES: No clubbing, severe generalized edema, no cyanosis, 2+ pulses and upper and lower extremities. MUSCULOSKELETAL: Muscle strength and tone normal. SPINE: No scoliosis or deformity SKIN: No rashes CENTRAL NERVOUS SYSTEM: Awake and alert, oriented times one. No focal deficits, tone is normal in all 4 extremities. - Labs CBC & Chem 7: 09/24/21 03:30 09/24/21 03:30 Labs: Abnormal Lab Results - Last 24 Hours (Table) 09/23/21 09/23/21 09/24/21 Range/Units 08:34 19:04 00:12 RBC (4.30-5.90) m/uL Hgb (13.0-17.5) gm/dL Hct (39.0-53.0) % MCHC (31.0-37.0) g/dL RDW (11.5-15.5) % Chloride (98-107) mmol/L BUN (9-20) mg/dL Creatinine (0.66-1.25) mg/dL Glucose (74-99) mg/dL POC Glucose (mg/dL) 175 H 120 H (75-99) mg/dL Calcium (8.4-10.2) mg/dL Crossmatch See Detail 09/24/21 09/24/21 Range/Units 03:30 03:30 RBC 2.58 L (4.30-5.90) m/uL Hgb 7.3 L (13.0-17.5) gm/dL Hct 23.9 L (39.0-53.0) % MCHC 30.6 L (31.0-37.0) g/dL RDW 19.1 H (11.5-15.5) % Chloride 113 H (98-107) mmol/L BUN 24 H (9-20) mg/dL Creatinine 3.63 H (0.66-1.25) mg/dL Glucose 113 H (74-99) mg/dL POC Glucose (mg/dL) (75-99) mg/dL Calcium 7.5 L (8.4-10.2) mg/dL Crossmatch Assessment and Plan Plan: Assessment: #1. Acute gangrenous cholecystitis with transmural necrosis of the gallbladder wall, status post open cholecystectomy on 09/17/2021. #2. Routine postoperative ventilator management after open cholecystectomy on 09/17/2021, successfully weaned and extubated on 09/22/2021 #3. Acute kidney injury related to the above, and was initiated on hemodialysis #4. Acute on chronic anemia, occult stool positive, s/p transfusion with 4 units of blood, current Hgb is 7.2, possibly related to GI blood loss anemia and acute kidney injury #5. Non-anion gap metabolic acidosis, improved #6. Acute hyperkalemia, resolved with hemodialysis #7. Hypotension sinus tachycardia related to acute sepsis, currently improved #8. Morbid obesity with BMI 41.8 #9. History of acute hypoxic respiratory failure on the mechanical ventilator back in mid June 2021 with left lung collapse post bronchoscopy 2 #10. Bronchial asthma, chronic, unspecified #11. Diabetes note this type II #12. Hyperlipidemia #13. Hypertension #14. Obstructive sleep apnea on CPAP therapy #15. BPH #16. Diarrhea, negative C. diff #17. Severe general medical debility related to severe critical illness Plan: Patient is seen and evaluated along with Dr. Cordova at the bedside Labs and chest x-ray reviewed Continue home CPAP at night, Patient is not requiring supplemental oxygen during the day He is having dialysis today Urine output has been quite dismal No fever or chills, continues on antibiotics per surgical recommendations We'll restart home med Lopressor 25 mg twice daily Restart Flomax Advance diet with surgical clearance as tolerated Continue monitoring for signs of bleeding Provide incentive spirometer, encourage deep breathing and coughing Continue nebulized bronchodilators Physical therapy evaluation and treatment Continue following the ICU I have personally seen and examined the patient, performed the documentation and the assessment and plan as written. Number of minutes spent on the visit: [10] I have personally seen and examined the patient and reviewed the documentation. I performed a joint evaluation with the nurse practitioner in this evaluation was done more than 20 minutes. I fully agree with the documentation above and the plan of care.. The patient is doing well. The patient undergoing hemodialysis. Her awake and alert. No respiratory difficulties. May finish the course of IV Zosyn. GRETCHEN drain management will be left up to the surgeon. The patient can be transferred out of the intensive care units. Time with Patient: Less than 30
[2021-09-24 11:36] LABS: Glucose,Whole Blood 93 mg/dL (75-99)
--- NOTE | 2021-09-24 12:19 | P.PN ---
Subjective Progress Note Date: 09/24/21 CHIEF COMPLAINT: Abdominal pain HISTORY OF PRESENT ILLNESS: Patient remains in the ICU. Patient is receiving hemodialysis this morning. He is postop day #7 status post open cholecystectomy for acute gangrenous cholecystitis with transmural necrosis of gallbladder wall. Patient tolerated clear liquid diet. He did have a bowel movement. No blood reported. Denies any nausea or vomiting. Pain controlled. GRETCHEN drain with serosanguineous output 20 mL to the night. He did receive DDAVP ordered by [facility] hrology and is on Aranesp for the anemia. No active bleeding reported. No bleeding from incision. Patient did receive a unit of blood for hemoglobin of 6.4. Hemoglobin now up to 7.3. WBC is 9.4 platelets 309 sodium 142 potassium 3.7 creatinine 3.6 PHYSICAL EXAM: VITAL SIGNS: Reviewed. GENERAL: Intubated HEENT: Moist buccal mucosa. Head is atraumatic, normocephalic. ABDOMEN: Soft. Nondistended. His incision clean dry and intact. GRETCHEN drain with serosanguineous output. ASSESSMENT: 1. Acute gangrenous cholecystitis status post open cholecystectomy 2. Acute kidney injury requiring hemodialysis 3. Anemia PLAN: -Advance diet as tolerated -Continue to monitor hemoglobin -Continue ICU management -Continue supportive care -Continue antibiotics Physician Residential Caregiver note has been reviewed by physician. Signing provider agrees with the documented findings, assessment, and plan of care. Objective - Vital Signs Vital signs: Vital Signs Temp 98 F 09/24/21 09:00 Pulse 96 09/24/21 11:00 Resp 10 L 09/24/21 11:00 BP 130/86 09/24/21 11:00 Pulse Ox 100 09/24/21 11:00 Intake & Output 09/23/21 09/24/21 09/24/21 18:59 06:59 18:59 Intake Total 611 420 100 Output Total 45 5 40 Balance 566 415 60 Weight 153.314 kg 154.2 kg Intake: IV 60 390 100 0.9 290 100 Piperacillin-Tazobactam 3 100 .375 gm In Sodium Chloride 0.9% 100 ml @ 25 mls/hr IVPB Q12HR [facility] Rx #:[id number] Sodium Chloride 0.9% 1, 60 000 ml @ 50 mls/hr IV . Q20H [facility] Rx#:[id number] Intake, IV Titration 270 30 Amount Sodium Chloride 0.9% 500 270 30 ml 500 ml @ 0 mls/hr IV . [facility] Rx#: [id number] Blood Product 281 Rc Pheresis 2 As3 Unit 281 [id number] Output: Drainage 10 Right Abdomen 10 Urine 35 5 40 Other: Voiding Method Indwelling Catheter Indwelling Catheter Indwelling Catheter # Bowel Movements 1 1 ABP, PAP, CO, CI - Last Documented Arterial Blood Pressure 131/60 - Labs CBC & Chem 7: 09/24/21 03:30 09/24/21 03:30 Labs: Abnormal Lab Results - Last 24 Hours (Table) 09/23/21 09/23/21 09/24/21 Range/Units 08:34 19:04 00:12 RBC (4.30-5.90) m/uL Hgb (13.0-17.5) gm/dL Hct (39.0-53.0) % MCHC (31.0-37.0) g/dL RDW (11.5-15.5) % Chloride (98-107) mmol/L BUN (9-20) mg/dL Creatinine (0.66-1.25) mg/dL Glucose (74-99) mg/dL POC Glucose (mg/dL) 175 H 120 H (75-99) mg/dL Calcium (8.4-10.2) mg/dL Crossmatch See Detail 09/24/21 09/24/21 Range/Units 03:30 03:30 RBC 2.58 L (4.30-5.90) m/uL Hgb 7.3 L (13.0-17.5) gm/dL Hct 23.9 L (39.0-53.0) % MCHC 30.6 L (31.0-37.0) g/dL RDW 19.1 H (11.5-15.5) % Chloride 113 H (98-107) mmol/L BUN 24 H (9-20) mg/dL Creatinine 3.63 H (0.66-1.25) mg/dL Glucose 113 H (74-99) mg/dL POC Glucose (mg/dL) (75-99) mg/dL Calcium 7.5 L (8.4-10.2) mg/dL Crossmatch
--- NOTE | 2021-09-24 13:32 | P.PN ---
Subjective Progress Note Date: 09/24/21 The patient is seen at bedside and per nurse is doing much better. He is off sedation and has been extubated on 09/23/2021. Objective - Vital Signs Vital signs: Vital Signs Temp 98 F 09/24/21 12:22 Pulse 102 H 09/24/21 12:48 Resp 16 09/24/21 12:00 BP 123/58 09/24/21 12:22 Pulse Ox 97 09/24/21 12:00 Intake & Output 09/23/21 09/24/21 09/24/21 18:59 06:59 18:59 Intake Total 611 420 270 Output Total 45 5 2340 Balance 566 415 -2070 Weight 153.314 kg 154.2 kg Intake: IV 60 390 120 0.9 290 120 Piperacillin-Tazobactam 3 100 .375 gm In Sodium Chloride 0.9% 100 ml @ 25 mls/hr IVPB Q12HR ON LICENSE OF [facility] Rx #:[id number] Sodium Chloride 0.9% 1, 60 000 ml @ 50 mls/hr IV . Q20H ON LICENSE OF [facility] Rx#:[id number] Intake, IV Titration 270 30 Amount Sodium Chloride 0.9% 500 270 30 ml 500 ml @ 0 mls/hr IV . [facility] Rx#: [id number] Oral 150 Blood Product 281 Rc Pheresis 2 As3 Unit 281 [id number] Output: Drainage 10 Right Abdomen 10 Urine 35 5 40 Hemodialysis 2300 Other: Voiding Method Indwelling Catheter Indwelling Catheter Indwelling Catheter # Bowel Movements 1 1 ABP, PAP, CO, CI - Last Documented Arterial Blood Pressure 131/60 - Exam Physical Exam: Neuro: Higher mental function: Is awake, alert, oriented to self, time. His is following commands. Cranial Pupils are round, equal, reactive to light. EOM intact. No facial weakness. No dysarthria. Motor: Moving bilateral upper extremities 2-3/5. In lowers he is able to wiggle toes bilaterally. FURTHER WORK-UP: Vitamin B6: 9 Vitamin B1: 90 TSH: 0.789 - Labs CBC & Chem 7: 09/24/21 03:30 09/24/21 03:30 Labs: Abnormal Lab Results - Last 24 Hours (Table) 09/23/21 09/24/21 09/24/21 Range/Units 19:04 00:12 03:30 RBC 2.58 L (4.30-5.90) m/uL Hgb 7.3 L (13.0-17.5) gm/dL Hct 23.9 L (39.0-53.0) % MCHC 30.6 L (31.0-37.0) g/dL RDW 19.1 H (11.5-15.5) % Chloride (98-107) mmol/L BUN (9-20) mg/dL Creatinine (0.66-1.25) mg/dL Glucose (74-99) mg/dL POC Glucose (mg/dL) 175 H 120 H (75-99) mg/dL Calcium (8.4-10.2) mg/dL 09/24/21 Range/Units 03:30 RBC (4.30-5.90) m/uL Hgb (13.0-17.5) gm/dL Hct (39.0-53.0) % MCHC (31.0-37.0) g/dL RDW (11.5-15.5) % Chloride 113 H (98-107) mmol/L BUN 24 H (9-20) mg/dL Creatinine 3.63 H (0.66-1.25) mg/dL Glucose 113 H (74-99) mg/dL POC Glucose (mg/dL) (75-99) mg/dL Calcium 7.5 L (8.4-10.2) mg/dL Assessment and Plan Assessment: * Altered mental status, most likely due to toxic metabolic encephalopathy----improving * Generalized weakness most likely related to critical illness neuropathy/myopathy. * Acute kidney injury, started on dialysis on 09/11/2021 * Recent history of hypotension leading to acute kidney injury * Status post cholecystectomy. * Anemia * Morbid obesity, BMI 41.8 * Diabetes type 2 * Hyperlipidemia * Hypertension * COPD Plan: * CT head showed no acute process. There is improvement in the ethmoid and sphenoid sinusitis compared to old exam. There is bilateral chronic mastoiditis similar to old exam. There is significant clearing of the opacification of the middle ear cavity compared to the last exam. Per Dr. Edmond, he reviewed computed tomography scan of the head and agree with the findings. Slight prominence of the ventricles as compared to the amount of cortical atrophy. * Avoid any sedatives, hypnotics or narcotics. * Will defer the medical management to the primary team and ICU team. * Patient on SCDs for DVT prophylaxis. The patient mentation is improving. Neurology will follow sporadically. The plan is discussed with the patient's nurse. Florencio Ulloa M.D. Neuro-Hospitalist Time with Patient: Less than 30
--- NOTE | 2021-09-24 16:09 | P.PN ---
Progress Note - Text Progress Note Date: 09/24/21 Chief Complaint: Tired This is a 61-year-old patient, follows with Dr. Seda Schneider. Chronic stable medical conditions include diabetes, , hyperlipidemia, obstructive sleep apnea uses CPAP, herniated disc / injections,. Patient was in the hospital from 06/26/2021 through July 16 Admitted with pneumonia, severe hypothermia, acute hypoxic respiratory failure, possible sepsis, possible acute congestive heart failure exacerbation. Was intubated. Was discharged on intermittent BiPAP. [place] to have possible viral pneumonitis. Was negative for COVID. Was discharged to rehab. At the rehab patient had a poor appetite. Not really able to walk. Patient was at mobile product manager up as found a very low blood pressure. Admitted. Denies any fever and chills. Actually eating better here. Has been having daily bowel movements. Occasional diarrhea. Does feel tired and rundown. Admitted with severe hypotension, acute kidney injury, hypoglycemia. Diuretics were held. IV hydration. PTOT. September 11: Lasted patient abdominal pain. Abdominal x-ray unremarkable. Surgery consulted. Patient's is present. Appetite is actually getting better. Continue IV fluids. Renal function worsening. Start bicarbonate drip. Coughing up some yellow sputum. Add doxycycline for acute bronchitis. Check creatinine kinase. Rule out rhabdomyolysis. September 12: Patient potassium persisted to be high yesterday. In spite of having several medications. Moved to the ICU. Nephrology consulted. Dialysis catheter was placed and patient received hemodialysis late last night. Poor appetite. Tired. Seen by psychiatry. [place] to have adjustment disorder. September 13: ICU: Tired and sleepy. Barely eating. I reviewed medications. Patient on Neurontin in the setting of acute kidney injury this can cause the patient to be lethargic. Cut back on the dose. Dialysis today. About half a liter removed. IV Zosyn. September 14: Patient started on Marinol yesterday. Still appetite is poor. Pharyngeal hygiene not good. Discussed with the nurse to get it clean. Including saltwater gargle. Patient bit more awake after cutting back dose of Neurontin. On IV Zosyn. September 15: Patient not really eating. Neurontin cutback 200 mg daily at bedtime. Reminded nurse about pharyngeal tolerate. Not much urine output. IV fluids increased to 130 mL an hour. Hypoglycemic. DC Lantus. September 16: Patient does complain of feeling depressed. Not eating. Patient was reevaluated by psychiatry. [place] to be adjustment disorder. Patient does not have any pain in the lower extremity except on movement. cutback Requip. .25 mg daily at bedtime. It is cleared through the renal route. Getting a neurological evaluation. The unlikely will check patient's ammonia level. Also spoke to the about possible feeding tube. Given poor oral intake. Patient only eating a few bites here and there September 17: Patient taken to the OR. Dr. Renetta Santillan the patient's found to have a gangrenous gallbladder. GRETCHEN drain. Patient taken to the ICU postprocedure. On the ventilator. IV propofol. Spoke to patient's family including the at the bedside. September 23: ICU: I assumed care of patient today. He was extubated yesterday. On 2 L nasal cannula. Globin 6.4. 1 unit of blood ordered. Clear liquid diet. GRETCHEN drain in place. Draining serosanguineous. at the bedside. Weakness. Right femoral dialysis catheter. Patient getting DDAVP today. For hemodialysis tomorrow. September 24: ICU: Awake, communicating. Tired. Did tolerate liquid diet this morning. Diet is being advanced. Received a unit of blood yesterday. He'll globin up as 7.3. Remains oliguric. Hemodialysis today Active Medications Acetaminophen (Acetaminophen Tab 325 Mg Tab) 650 mg PO Q6HR PRN PRN Reason: Mild Pain or Fever > 100.5 Last Admin: 09/12/21 20:09 Dose: 650 mg Documented by: Albuterol/Ipratropium (Ipratropium-Albuterol 3 Ml Neb) 3 ml INHALATION RT-QID [facility] Last Admin: 09/24/21 15:31 Dose: 3 ml Documented by: Albuterol/Ipratropium (Ipratropium-Albuterol 3 Ml Neb) 3 ml INHALATION RT-Q2H PRN PRN Reason: Shortness Of Breath Or Wheezing Darbepoetin Arthur (Darbepoetin Arthur 40 Mcg/0.4 Ml Syringe) 40 mcg SQ Q7D [facility] Last Admin: 09/21/21 15:54 Dose: 40 mcg Documented by: Gabapentin (Gabapentin 100 Mg Cap) 100 mg PO HS [facility] Last Admin: 09/23/21 22:09 Dose: 100 mg Documented by: Hydromorphone HCl (Hydromorphone 1 Mg/Ml 1 Ml Syringe) 1 mg IVP Q3HR PRN PRN Reason: Pain Last Admin: 09/18/21 02:37 Dose: 1 mg Documented by: Piperacillin Sod/Tazobactam (Sod 3.375 gm/ Sodium Chloride) 100 mls @ 25 mls/hr IVPB Q12HR [facility]; Protocol Last Admin: 09/24/21 09:40 Dose: 25 mls/hr Documented by: Insulin Aspart (Insulin Aspart (Novolog) 100 Unit/Ml Vial) 0 unit SQ Q6HR [facility]; Protocol Last Admin: 09/24/21 12:24 Dose: Not Given Documented by: Metoprolol Tartrate (Metoprolol Tartrate 25 Mg Tab) 25 mg PO BID [facility] Last Admin: 09/24/21 09:45 Dose: 25 mg Documented by: Miscellaneous Information (Potassium Replacement Protocol 1 Each Misc) 1 each MISCELLANE DAILY PRN; Protocol PRN Reason: Per Protocol Naloxone HCl (Naloxone 0.4 Mg/Ml 1 Ml Vial) 0.2 mg IV Q2M PRN PRN Reason: Opioid Reversal Pantoprazole Sodium (Pantoprazole 40 Mg/10 Ml Vial) 40 mg IVP DAILY [facility] Last Admin: 09/24/21 09:40 Dose: 40 mg Documented by: Tamsulosin HCl (Tamsulosin 0.4 Mg Cap.Er.24h) 0.4 mg PO PC-SUPPER [facility] Past medical history to include: COPD, asthma, diabetes, hypertension, hyperlipidemia, obstructive sleep apnea uses CPAP, herniated disc uses injections, pneumonia June 2021 patient intubated Social history: Alcohol occasionally. Occasional cigar. Marijuana occasionally. . At rehab Family history: Skin cancer, macular degeneration Physical examination: VITAL SIGNS: 98, 94, 16, 118/81, 97% on 2 L GENERAL: laying in bed, awake, tired EYES: Pupils equal. Conjunctiva normal. HEENT: External appearance of nose and ears normal, oral cavity endotracheal tube NECK: JVD not raised; masses not palpable. HEART: First and second heart sounds are normal; edema. LUNGS: Respiratory rate increased; decreased breath sounds ABDOMEN: Soft, some tenderness, no guarding rigidity GRETCHEN drain, binder liver spleen not palpable, no masses palpable. PSYCH: Answering questions appropriately. Mood and affect a bit low MUSCULOSKELETAL:No Clubbing/cyanosis;muscles-grossly intact NEUROLOGICAL: Cranial nerves grossly intact; no facial asymmetry, decreased power lower extremity. INVESTIGATIONS, reviewed in the clinical context: September 24: White count 9.4 hemoglobin 7.3 potassium 3.7 BUN 24 creatinine 3.63 September 21: White count 9.60 globin 6.4 platelets 300 potassium 3.4 creatinine 2.93 September 17: White count 8.8 hemoglobin 10.9 platelets relevant potassium 3.8 BUN 44 creatinine 5.05 September 16: White count 8.9 hemoglobin 11.7 potassium 4.2 BUN 35 creatinine 4.09 September 14: Sodium 135 BUN 39 creatinine 3.31. Blood glucose 64 September 13: White count 7.6 hemoglobin 10.3 platelets 1944.9 BUN 47 creatinine 3.2 to September 12: White count 12.1-year-old and 30.7 sodium 134 potassium 5.9 BUN 38 creatinine 2.76 September 11: Sodium 131 potassium 7.2 BUN 48 creatinine 3.73 White count 6.8 hemoglobin 13.8 platelets 244 sodium 136 potassium 4.9 BUN 40 creatinine 3.41. EKG tracing personally reviewed by me-sinus rhythm, right bundle branch block. Some T waves abnormalities Chest x-ray film personally reviewed by me-possible chronic changes Blood Glucose 36 Assessment and plan: -Severe hypotension, from acute kidney injury from decreased oral intake: Better -Acute metabolic encephalopathy : Better Seen by Neurology -Chronic congestive heart failure. From diastolic dysfunction EF 55-60%: Hold diuretics for now -Acute kidney injury ATN from hypotension: On renal replacement therapy on hemodialysis -Acute metabolic acidosis from worsening renal failure: Better bicarbonate drip-discontinued. Oral bicarbonate -Acute severe hyperkalemia from metabolic acidosis: Better -Sinus tachycardia likely from sepsis -Anorexia multifactorial: Supple improvement Did not respond to Marinol. Advance diet as tolerated -Gangrenous cholecystitis followed by cholecystectomy. IV Zosyn. Cholecystectomy on September [address] Jackson -Sepsis. Secondary to gangrenous cholecystitis Zosyn. 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 -Obesity BMI 51.4 -Adjustment disorder Seen by psychiatry. No medications. -Essential hypertension, Lopressor started -Restless leg syndrome Requip .25 mg daily at bedtime -Diabetes mellitus type 2 on oral hypoglycemic, uncontrolled with hypoglycemia: Slow to respond Hold of oral hypoglycemic. Follow Accu-Cheks. -Hyperlipidemia Hold off Zocor because of muscle weakness -BPH Flomax 0.4 mg daily -COPD Advair 250/50 one puff twice a day [currently held]. DuoNeb 4 times a day -Chronic medical debility from recent protracted hospitalization PTOT -Full code IV Zosyn. GRETCHEN drain. Advance diet. Discussed with patient.
[2021-09-24 16:51] LABS: Glucose,Whole Blood 137 mg/dL (75-99)
[2021-09-24] MEDS: TAMSULOSIN 0.4 MG CAP.ER.24H PO SCH (21:15)
[2021-09-24] MEDS: GABAPENTIN 100 MG CAP PO SCH (21:15)
[2021-09-25] MEDS: HYDROmorphone 1 MG/ML 1 ML SYRINGE IVP PRN (00:14)
[2021-09-25] MEDS: INSULIN ASPART (NovoLOG) 100 UNIT/ML VIAL SQ SCH ×5 (00:18→23:17)
[2021-09-25 00:20] LABS: Glucose,Whole Blood 111 mg/dL (75-99)
[2021-09-25 06:53] LABS: Glucose,Whole Blood 107 mg/dL (75-99)
[2021-09-25] MEDS: IPRATROPIUM-ALBUTEROL 3 ML NEB INHALATION SCH ×4 (09:02→20:23)
[2021-09-25] MEDS: METOPROLOL TARTRATE 25 MG TAB PO SCH ×2 (09:48→22:13)
[2021-09-25] MEDS: PANTOPRAZOLE 40 MG/10 ML VIAL IVP SCH (09:48)
[2021-09-25] MEDS: PIPERACILLIN-TAZOBACTAM 3.375 GM in SODIUM CHLORIDE 0.9% 100 ML IVPB SCH ×2 (09:48→22:14)
--- NOTE | 2021-09-25 10:45 | P.PN ---
Progress Note - Text Progress Note Date: 09/25/21 The patient remained stable. He is currently receiving hemodialysis. He has minimal complaints of abdominal pain. On exam abdominal incision is clean dry intact. The GRETCHEN drains producing approximately 30-50 mL of serosanguineous fluid per day. There is no evidence of any bile leak. The patient is improving. His GRETCHEN drain will be removed once the output has decreased.
[2021-09-25 11:52] LABS: Glucose,Whole Blood 128 mg/dL (75-99)
--- NOTE | 2021-09-25 12:42 | P.PN ---
Subjective Progress Note Date: 09/25/21 61-year-old male patient, who was transferred to the hospital on 09/09/[facility]. The patient was sent to medical [place] for further rehabilitation as the patient had a prolonged hospitalization back in June 2021 that extended to July 2021. At that time, the patient had a very complicated course as the patient was intubated and placed on a mechanical ventilator on 06/25/2021. He presented to us hypothermic, had pneumonia and sepsis and complete opacification of the left lung. During the course of his illness, he Is negative for microbial growth and he also tested negative for COVID 19. He underwent bronchoscopy 2 on 06/27/2021 and 07/03/2021. His left lung gradually reexpanded. Post extubation, he was given BiPAP. He is known to have asthma, diabetes, hypertension, hyperlipidemia and obstructive sleep apnea and BPH. He was given aggressive chest PT, percussion, deep breathing and pulmonary toileting and based on his generalized weakness, he was sent for rehabilitation. During this current admission, the patient reports that he was not doing well. He does not get to the point where he was ambulatory. Obviously is a non-reliable historian. He states that he was not feeling well. He was feeling weak. He was not eating much. He did not like the food and his oral intake was quite diminished. He came into the ED with hypotension with a blood pressure of 70/50. The patient's potassium level initially was at 4.9 and the patient was in acute kidney injury. Subsequently, the potassium came up to 7.3. Various treatments done to improve the potassium and failed and ultimately, the patient got transferred to the ICU for hyp erkalemia. He was given a dialysis catheter and he received a session of hemodialysis yesterday. This morning, his potassium level is down to 5.9. Creatinine is improving. Urine output is in order of 20-25 mL an hour. He has a dialysis catheter in his right groin. He has no signs of any respiratory distress. Chest x-rays unchanged and there is a stable atelectasis in left lung base. The patient remains about O2 and currently he is a 96% pulse ox. Most recent BP is 88/50 from this morning. He was noted to be tachycardic over the past 24 hours. Cardiac rhythm is sinus. White cell count is at low hemoglobin 15.7 and a platelet count of 195. Note. Indication of an underlying infection. The patient's UA was not showing any signs of infection. Blood cultures 2 were sent from admission are negative. He has stage II wounds. No significant cough sputum production. No wheezing. No altered mentation or headache or neck stiffness. In the ICU, give this patient a bolus of 1 L. I started him on IV Zosyn and IV. The ulcers. He is on Levemir insulin 16 units at bedtime along with a sliding scale coverage. On 09/13/2021 patient seen in follow-up in the intensive care unit. He is awake and alert, in no acute distress, he is resting comfortably in bed, denies any dyspnea. Room air pulse ox is 94%, patient is having hemodialysis treatment. He did wear CPAP support last night. Patient remains on empiric antibiotics with doxycycline and Zosyn. Patient continues to have low-grade fevers and a T- max in the last 24 hours was 101.6F at 8:00 in the morning yesterday. No cough, no chest discomfort, no hemoptysis. Hemodynamically stable, he is receiving IV fluids normal saline at a rate of 75 ML per hour. Breathing is nonlabored, comfortable. His chest x-ray on 09/11/2021 showed mild blunting of the left costophrenic angle, clear right lung. Today's labs have been reviewed with blood cell count is 7.6, hemoglobin is 11.3, platelet count is 194, sodium is 132, the rest of electrolytes were within normal limits, BUN is 47, creatinine is 3.22. Patient is not requiring any vasopressor support, echocardiogram has been completed showing moderate concentric LVH, EF of 55-60%, and severe enlargement of the right ventricle. On 09/14/2021 patient seen in follow-up on selective care unit, he is resting in bed, breathing comfortably, lung sounds are essentially clear to auscultation, no rhonchi no wheezing, denies any cough, no phlegm production or chest disc omfort. She did wear his CPAP device at night. At the on room air pulse ox is 95%, he was dialyzed yesterday and 900 mL of fluid was removed with hemodialysis. No plans for hemodialysis today according to the patient. Today's labs have been reviewed, sodium is 135, the rest of electrolytes are w ithin normal limits, BUN is 39, creatinine is 3.31. 4 sets of blood cultures have shown no growth thus far since admission. Unclear the source of possible infection, patient remains on antibiotics for empiric antibiotic coverage, as patient for pneumonia is low On 09/16/2021 patient seen in follow-up on medical surgical floor, he is resting in bed, does not appear to be in any acute distress, he is currently it is of oxygen, he is satting 96%, at night he is been wearing his CPAP device from home. Denies any worsening dyspnea, no complaints of chest discomfort, still has some mild generalized edema. Today's labs have been reviewed, white blood cell count is 8.9, hemoglobin is 11.7, sodium is 138, potassium is 4.2, chloride is 107, CO2 is 15, B1 is 35, creatinine is 4.09. Nephrology is following, and had hemodialysis treatment yesterday with removal 1.3 L of fluid. Appetite is fair, no nausea or vomiting, however patient is incontinent of liquid brown stool. Patient has had no fever or chills, his blood cultures have been negative, as of dyspnea or cough, no phlegm production, breathing comfortably, lung sounds are clear. His last chest x-ray was on 09/14/2021 grossly unre markable lungs. On 09/17/2021 patient seen in follow-up in the recovery room. This morning patient was taken to surgery for cholecystectomy and he was found to have acute gangrenous cholecystitis with transmural necrosis of gallbladder wall. Following the procedure patient is still intubated and sedated in the recovery room, on assist control mode of ventilation with a rate of 12, tidal volume is 450, FiO2 of 100% and PEEP of 5. His peak air pressure is 28, plateau is 21, he is resting comfortably on a gurney in the recovery room, still sedated, Diprivan will be started, 0.9 normal saline at a rate of 75 ML per hour, his postoperative blood gas and chest x-ray are pending. This morning's labs have been reviewed, white blood cell count was 8.8, hemoglobin was 10.9, sodium is 136, potassium 3.8, BUN was 44, creatinine is 5.05, postoperative labs are pending. Patient continues on Zosyn for antibiotic coverage. Surgical incision is clean dry and intact, abdominal binder is in place, NG tube is in place to low intermittent suction. On 09/22/2021 patient seen in follow-up in intensive care unit. He is postoperative day #5 status post ectomy for acute gangrenous cholecystitis with transmural necrosis of the gallbladder wall. Patient remains intubated and sedated on assist control mode of ventilation with a rate of 12, tidal lung is 450, FiO2 of 30% and PEEP of 5, this morning's blood gas shows pO2 of 122, pCO2 of 39, and pH of 7.42 and this was done on the above-mentioned vent settings and FiO2 of 30%. Today's chest x-ray has been reviewed and left lower lobe atelectasis versus pneumonia and associated effusion. Patient required small amount of norepinephrine on and off through the night, it is currently weaned off. His blood pressure stable at 107/54. He is in sinus mechanism, slightly tachycardic with a rate of 1038 BPM, his 0.9 normal saline is a 60 ML per hour, Diprivan and is at 20 mics per kilo per minute. Sedation is currently on hold for possibility of spontaneous breathing trials. There has been no active bleeding overnight white blood cell count is improved and is down to 9.4, hemoglobin is 6.8, platelet count is 317, sodium is 140, potassium 3.6, chloride is 109, BUN is 22 creatinine is 2.93. Occult blood was positive on 09/19/2021. He did receive 2 units of pack red blood cells on 09/19/2021 and 1 unit of packed red blood cells yesterday on 09/21/2021. tube feedings are currently on hold for possibility of permacath dialysis port placement. CT of the abdomen and pelvis from yesterday was a suboptimal study and showed expected changes from cholecystectomy, percutaneous drainage catheter going through the gallbladder fossa and terminating in the midline anterior and superior to the gallbladder fossa. Ill-defined fluid and air at the level of the gallbladder fossa is nonspecific. There was soft tissue anasarca along with small bilateral pleural effusions and mild amount of intra-abdominal ascites, possibly related to fluid overload state. Patient has significant generalized edema, he isn't +1.5 L net fluid balance over the last 24 hours, overall is +27 kg in the last 7-10 days. Nephrology has been following. He is practically anuric, and the plan is to dialyze him today. In addition patient remains on antibiotics with Zosyn, 4 sets of blood cultures are negative. On 09/23/2021 patient is seen in follow-up in intensive care unit. Patient was successfully weaned and extubated yesterday on 09/22/2021, he is awake and alert, he is oriented to person, a bit slow to respond, disoriented to place and time. Patient is breathing comfortably, he is on 4 L of oxygen pulse ox is 99%. Denies any shortness of breath, no cough. No tachypnea, no complaints of chest discomfort. Yesterday he had hemodialysis would removal of 2 L of fluid. Still quite generally fluid overloaded, his chest x-ray today shows interval extubation, worsening left lower lung opacity consistent with small left pleural effusion with associated left lower lung infiltrate. Today's labs have been reviewed, white blood cell count is 8.8, hemoglobin is 6.2 with no evidence of active bleeding, and platelet count was 289, sodium is 141, potassium 3.4, chloride is 113, when is 19, and creatinine is 2.93. Patient remains anuric. Physical incisions are clean dry and intact, minh are intact. Abdominal binder is in place, abdomen is nontender, patient had a bowel movement on Monday. He is thirsty and is asking for something to drink. We'll start him on clear liquids with surgical clearance this morning. Left subclavian triple lumen central line catheter insertion site is clean dry and intact, right groin hemodialysis catheter had been exchanged yesterday. Remains on Zosyn empirically, so far all blood cultures are negative. On 09/24/2021 patient seen in follow-up in intensive care units. He is awake and alert, oriented to person and place, coming comfortable, denies any acute distress, denies any difficulty breathing, room air pulse ox the 100%, he wore his CPAP device from home last night. Hemodynamically has remained stable, he is in sinus mechanism with a rate of 108, blood pressure is 151/99 this morning, recent was not dialyzed yesterday but he is having hemodialysis treatment today. The dose of IV Lasix 80 mg per nephrology this morning, today's chest x-ray showing hazy density on the left along with retrocardiac atelectasis and/or infiltrate. And improved aeration at the right base. Patient has been tolerating clear liquid diet, no nausea vomiting or diarrhea, no signs of active bleeding, yesterday she received a unit of blood hemoglobin of 6.4, today's hemoglobin is up to 7.3, his white blood cell count today is 9.4, platelet count is 309, sodium is 142, potassium is 3.7, chloride is 113, CO2 is 23, BUN is 24, creatinine is 3.63. His urine output has been 0 ML per hour for the most part, 40 mL this morning after the dose of Lasix. Overall he is in +981 mL net fluid balance over the last 24 hours, he does have moderate generalized edema, right groin temporary hemodialysis catheter is in place. Generally patient is quite weak. Physical therapy on consultation, patient has not been up out of bed yet 09/25/2021, the patient is awake and alert and communicating. He has no spec ific complaints. Is afebrile. GRETCHEN drain output is minimal at the surgical wound site is dry clean and intact. The patient has been on antibiotics with IV Zosyn for the past 13 days. The patient is going to undergo hemodialysis today. His urine output is minimal in the order of 70 mL over the past 24 hours. He will likely need permanent hemodialysis and permanent permacath catheter insertion. For now, the patient is being dialyzed through a right femoral hemodialysis catheter. He is awake. He is alert. His hemoglobin stable at 7.3. White cell count is at 9.4. No other significant issues otherwise for now. He remains on oxygen on 2 L with a pulse ox of 99%. Using incentive spirometer. He is weak. Is working with physical therapy. Objective - Vital Signs Vital signs: Vital Signs Temp 98.6 F 09/25/21 12:00 Pulse 99 09/25/21 12:00 Resp 18 09/25/21 12:00 BP 102/59 09/25/21 12:00 Pulse Ox 99 09/25/21 12:00 Intake & Output 09/24/21 09/25/21 09/25/21 18:59 06:59 18:59 Intake Total 540 540 270 Output Total 2360 40 2000 Balance -1820 500 -1730 Intake: IV 240 340 170 0.9 240 240 170 Piperacillin-Tazobactam 3 100 .375 gm In Sodium Chloride 0.9% 100 ml @ 25 mls/hr IVPB Q12HR ERINN Rx #:[id number] Intake, IV Titration 100 Amount Piperacillin-Tazobactam 3 100 .375 gm In Sodium Chloride 0.9% 100 ml @ 25 mls/hr IVPB Q12HR ERINN Rx #:[id number] Oral 300 200 Output: Drainage 10 Right Abdomen 10 Urine 60 30 0 Hemodialysis 2300 2000 Other: Voiding Method Indwelling Catheter Indwelling Catheter Indwelling Catheter # Bowel Movements 1 ABP, PAP, CO, CI - Last Documented Arterial Blood Pressure 131/60 - Exam - Exam GENERAL EXAM: Awake and alert 61-year-old white male, on room air with a pulse ox of 99 HEAD: Normocephalic/atraumatic. EYES: Normal reaction of pupils, equal size. Conjunctiva pink, sclera white. NOSE: Clear with pink turbinates. THROAT: No erythema or exudates. NECK: No masses, no JVD, no thyroid enlargement, no adenopathy. CHEST: No chest wall deformity. Symmetrical expansion. LUNGS: Equal air entry with no crackles, wheeze, rhonchi or dullness. CVS: Regular rate and rhythm, normal S1 and S2, no gallops, no murmurs, no rubs ABDOMEN: Soft, nontender. No hepatosplenomegaly, normal bowel sounds, no guarding or rigidity. Abdominal incisions are clean dry and intact, covered with the abdominal binder, minh intact, GRETCHEN drain is in place with small amount of sanguinous output EXTREMITIES: No clubbing, severe generalized edema, no cyanosis, 2+ pulses and upper and lower extremities. MUSCULOSKELETAL: Muscle strength and tone normal. SPINE: No scoliosis or deformity SKIN: No rashes CENTRAL NERVOUS SYSTEM: Awake and alert, oriented times one. No focal deficits, tone is normal in all 4 extremities. - Labs CBC & Chem 7: 09/24/21 03:30 09/24/21 03:30 Labs: Abnormal Lab Results - Last 24 Hours (Table) 09/24/21 09/25/21 09/25/21 Range/Units 16:49 00:17 06:51 POC Glucose (mg/dL) 137 H 111 H 107 H (75-99) mg/dL 09/25/21 Range/Units 11:50 POC Glucose (mg/dL) 128 H (75-99) mg/dL Assessment and Plan Plan: #1. Acute gangrenous cholecystitis with transmural necrosis of the gallbladder wall, status post open cholecystectomy on 09/17/2021. The GRETCHEN drain is putting minimal amount of output in the surgical wound site is dry clean and intact. The patient remains on IV Zosyn. Completing a total of 2 week course. #2. Routine postoperative ventilator management after open cholecystectomy on 09/17/2021, successfully weaned and extubated on 09/22/2021 #3. Acute kidney injury related to the above, and was initiated on hemodialysis, the patient will need a permacath. The patient is going to undergo hemodialysis today. #4. Acute on chronic anemia, occult stool positive, s/p transfusion with 4 units of blood, current Hgb is 7.2, possibly related to GI blood loss anemia and acute kidney injury #5. Non-anion gap metabolic acidosis, improved #6. Acute hyperkalemia, resolved with hemodialysis #7. Hypotension sinus tachycardia related to acute sepsis, currently improved #8. Morbid obesity with BMI 41.8 #9. History of acute hypoxic respiratory failure on the mechanical ventilator back in mid June 2021 with left lung collapse post bronchoscopy 2 #10. Bronchial asthma, chronic, unspecified #11. Diabetes note this type II #12. Hyperlipidemia #13. Hypertension #14. Obstructive sleep apnea on CPAP therapy #15. BPH #16. Diarrhea, negative C. diff #17. Severe general medical debility related to severe critical illness Plan We'll discuss with general surgery the possibility of removing the GRETCHEN drain. Surgical wound site is dry clean and intact Completed the course of IV Zosyn for a total of 2 weeks Permacath insertion Hemodialysis today Physical therapy Monitor hemoglobin We'll transfer out of the intensive care unit either today or tomorrow. Diet is being also advanced.
[2021-09-25 13:39] LABS: Anisocytosis Slight; Basophils # (A) 0.1 k/uL (0-0.2); Basophils % (A) 1 %; Eosinophils # (A) 0.3 k/uL (0-0.7); Eosinophils % (A) 3 %; HCT 25.9 % (39.0-53.0); HGB 7.9 gm/dL (13.0-17.5); Hypochromasia Marked; Lymphocytes # (A) 0.8 k/uL (1.0-4.8); Lymphocytes % (A) 9 %; MCH 29.4 pg (25.0-35.0); MCHC 30.6 g/dL (31.0-37.0); MCV 95.9 fL (80.0-100.0); Macrocytosis Slight; Monocytes # (A) 0.4 k/uL (0-1.0); Monocytes % (A) 5 %; Neutrophils # (A) 7.3 k/uL (1.3-7.7); Neutrophils % (A) 81 %; Platelet Count 240 k/uL (150-450); WBC 9.1 k/uL (3.8-10.6)
[2021-09-25 13:53] LABS: Calcium 7.2 mg/dL (8.4-10.2); Potassium 3.6 mmol/L (3.5-5.1)
[2021-09-25] MEDS ORDERED: POTASSIUM CHLORIDE ER 20 MEQ TAB.ER PO STA (14:15)
--- NOTE | 2021-09-25 16:19 | P.PN ---
Subjective Patient is seen for follow-up for acute kidney injury and hyperkalemia. He was significantly hypotensive on initial admission. Serum creatinine had peaked at 3.7 mg/dL but due to the potassium staying elevated at 7.3 patient was dialyzed . Urine output had improved and dialysis was held to monitor for possible recovery of renal function but urine output remained low and therefore patient has been maintained on dialysis. Patient was taken to OR on 09/17/21 and had open cholecystectomy. He was found to have acute gangrenous cholecystitis and necrosis of the gallbladder wall. Postoperatively patient has been transferred to the ICU. He remains intubated. Poor urine output Patient is seen in the ICU he is much improved. Patient remains hemodialysis dependent with poor urine output. Blood pressure is improved and he is off of pressors. Extubated on 09/22/2021 No bleeding noted. Objective - Vital Signs Vital signs: Vital Signs Temp 98.6 F 09/25/21 12:00 Pulse 110 H 09/25/21 15:44 Resp 15 09/25/21 14:00 BP 114/57 09/25/21 14:00 Pulse Ox 99 09/25/21 14:00 Intake & Output 09/24/21 09/25/21 09/25/21 18:59 06:59 18:59 Intake Total 540 540 330 Output Total 2360 40 2009 Balance -1820 500 -1680 Intake: IV 240 340 230 0.9 240 240 230 Piperacillin-Tazobactam 3 100 .375 gm In Sodium Chloride 0.9% 100 ml @ 25 mls/hr IVPB Q12HR ERINN Rx #:[id number] Intake, IV Titration 100 Amount Piperacillin-Tazobactam 3 100 .375 gm In Sodium Chloride 0.9% 100 ml @ 25 mls/hr IVPB Q12HR ERINN Rx #:[id number] Oral 300 200 Output: Drainage 10 Right Abdomen 10 Urine 60 30 10 Hemodialysis 2300 2000 Other: Voiding Method Indwelling Catheter Indwelling Catheter Indwelling Catheter # Bowel Movements 1 1 ABP, PAP, CO, CI - Last Documented Arterial Blood Pressure 131/60 - Exam Patient is awake comfortable. He is not in any acute distress Examination of the heart S1 and S2 Examination lungs bilateral breath sounds are heard Abdomen is soft nontender obese Examination lower extremities shows chronic skin changes, 1+ edema noted. [employer] exam is grossly intact - Labs CBC & Chem 7: 09/25/21 13:13 09/25/21 13:13 Labs: Abnormal Lab Results - Last 24 Hours (Table) 09/24/21 09/25/21 09/25/21 Range/Units 16:49 00:17 06:51 RBC (4.30-5.90) m/uL Hgb (13.0-17.5) gm/dL Hct (39.0-53.0) % MCHC (31.0-37.0) g/dL RDW (11.5-15.5) % Lymphocytes # (1.0-4.8) k/uL Chloride (98-107) mmol/L Creatinine (0.66-1.25) mg/dL Glucose (74-99) mg/dL POC Glucose (mg/dL) 137 H 111 H 107 H (75-99) mg/dL Calcium (8.4-10.2) mg/dL 09/25/21 09/25/21 09/25/21 Range/Units 11:50 13:13 13:13 RBC 2.70 L (4.30-5.90) m/uL Hgb 7.9 L (13.0-17.5) gm/dL Hct 25.9 L (39.0-53.0) % MCHC 30.6 L (31.0-37.0) g/dL RDW 19.0 H (11.5-15.5) % Lymphocytes # 0.8 L (1.0-4.8) k/uL Chloride 111 H (98-107) mmol/L Creatinine 2.33 H (0.66-1.25) mg/dL Glucose 144 H (74-99) mg/dL POC Glucose (mg/dL) 128 H (75-99) mg/dL Calcium 7.2 L (8.4-10.2) mg/dL Assessment and Plan Assessment: 1. Hyperkalemia associated with acute kidney injury use of JENSEN inhibitor's prior to admission currently improved. 2. Acute kidney injury secondary to ATN from hypotension previous creatinine 0.7 on 08/10/2021. Started dialysis on 09/12/2021 for severe hyperkalemia. Urine output is poor postoperatively. Patient is maintained on dialysis. 3. Metabolic acidosis associated with acute kidney injury and recent shock and hypotension. 4. Acute cholecystitis with gangrenous bladder status post open cholecystectomy on 09/17/2021 5. Acute hypoxic respiratory failure, status post extubation on 09/22/2021 Plan: Dialysis on 09/27/2021 Plan for IJ permacath placement early next week.
[2021-09-25 16:48] LABS: Glucose,Whole Blood 178 mg/dL (75-99)
--- NOTE | 2021-09-25 16:58 | P.PN ---
Progress Note - Text Progress Note Date: 09/25/21 Chief Complaint: Tired This is a 61-year-old patient, follows with Dr. Seda Schneider. Chronic stable medical conditions include diabetes, , hyperlipidemia, obstructive sleep apnea uses CPAP, herniated disc / injections,. Patient was in the hospital from 06/26/2021 through July 16 Admitted with pneumonia, severe hypothermia, acute hypoxic respiratory failure, possible sepsis, possible acute congestive heart failure exacerbation. Was intubated. Was discharged on intermittent BiPAP. [place] to have possible viral pneumonitis. Was negative for COVID. Was discharged to rehab. At the rehab patient had a poor appetite. Not really able to walk. Patient was at metal polisher up as found a very low blood pressure. Admitted. Denies any fever and chills. Actually eating better here. Has been having daily bowel movements. Occasional diarrhea. Does feel tired and rundown. Admitted with severe hypotension, acute kidney injury, hypoglycemia. Diuretics were held. IV hydration. PTOT. September 11: Lasted patient abdominal pain. Abdominal x-ray unremarkable. Surgery consulted. Patient's is present. Appetite is actually getting better. Continue IV fluids. Renal function worsening. Start bicarbonate drip. Coughing up some yellow sputum. Add doxycycline for acute bronchitis. Check creatinine kinase. Rule out rhabdomyolysis. September 12: Patient potassium persisted to be high yesterday. In spite of having several medications. Moved to the ICU. Nephrology consulted. Dialysis catheter was placed and patient received hemodialysis late last night. Poor appetite. Tired. Seen by psychiatry. [place] to have adjustment disorder. September 13: ICU: Tired and sleepy. Barely eating. I reviewed medications. Patient on Neurontin in the setting of acute kidney injury this can cause the patient to be lethargic. Cut back on the dose. Dialysis today. About half a liter removed. IV Zosyn. September 14: Patient started on Marinol yesterday. Still appetite is poor. Pharyngeal hygiene not good. Discussed with the nurse to get it clean. Including saltwater gargle. Patient bit more awake after cutting back dose of Neurontin. On IV Zosyn. September 15: Patient not really eating. Neurontin cutback 200 mg daily at bedtime. Reminded nurse about pharyngeal tolerate. Not much urine output. IV fluids increased to 130 mL an hour. Hypoglycemic. DC Lantus. September 16: Patient does complain of feeling depressed. Not eating. Patient was reevaluated by psychiatry. [place] to be adjustment disorder. Patient does not have any pain in the lower extremity except on movement. cutback Requip. .25 mg daily at bedtime. It is cleared through the renal route. Getting a neurological evaluation. The unlikely will check patient's ammonia level. Also spoke to the about possible feeding tube. Given poor oral intake. Patient only eating a few bites here and there September 17: Patient taken to the OR. Dr. Renetta Santillan the patient's found to have a gangrenous gallbladder. GRETCHEN drain. Patient taken to the ICU postprocedure. On the ventilator. IV propofol. Spoke to patient's family including the at the bedside. September 23: ICU: I assumed care of patient today. He was extubated yesterday. On 2 L nasal cannula. Globin 6.4. 1 unit of blood ordered. Clear liquid diet. GRETCHEN drain in place. Draining serosanguineous. at the bedside. Weakness. Right femoral dialysis catheter. Patient getting DDAVP today. For hemodialysis tomorrow. September 24: ICU: Awake, communicating. Tired. Did tolerate liquid diet this morning. Diet is being advanced. Received a unit of blood yesterday. He'll globin up as 7.3. Remains oliguric. Hemodialysis today September 25: ate little bit of breakfast did not like hospital food. Told to increase limb movements while in bed. IV Zosyn. Tired. . Active Medications Acetaminophen (Acetaminophen Tab 325 Mg Tab) 650 mg PO Q6HR PRN PRN Reason: Mild Pain or Fever > 100.5 Last Admin: 09/12/21 20:09 Dose: 650 mg Documented by: Albuterol/Ipratropium (Ipratropium-Albuterol 3 Ml Neb) 3 ml INHALATION RT-QID [facility] Last Admin: 09/25/21 15:31 Dose: 3 ml Documented by: Albuterol/Ipratropium (Ipratropium-Albuterol 3 Ml Neb) 3 ml INHALATION RT-Q2H PRN PRN Reason: Shortness Of Breath Or Wheezing Darbepoetin Arthur (Darbepoetin Arthur 40 Mcg/0.4 Ml Syringe) 40 mcg SQ Q7D [facility] Last Admin: 09/21/21 15:54 Dose: 40 mcg Documented by: Gabapentin (Gabapentin 100 Mg Cap) 100 mg PO HS [facility] Last Admin: 09/24/21 21:15 Dose: 100 mg Documented by: Hydromorphone HCl (Hydromorphone 1 Mg/Ml 1 Ml Syringe) 1 mg IVP Q3HR PRN PRN Reason: Pain Last Admin: 09/25/21 00:14 Dose: 1 mg Documented by: Piperacillin Sod/Tazobactam (Sod 3.375 gm/ Sodium Chloride) 100 mls @ 25 mls/hr IVPB Q12HR [facility]; Protocol Last Admin: 09/25/21 09:48 Dose: 25 mls/hr Documented by: Insulin Aspart (Insulin Aspart (Novolog) 100 Unit/Ml Vial) 0 unit SQ Q6HR [facility]; Protocol Last Admin: 09/25/21 12:17 Dose: Not Given Documented by: Metoprolol Tartrate (Metoprolol Tartrate 25 Mg Tab) 25 mg PO BID [facility] Last Admin: 09/25/21 09:48 Dose: 25 mg Documented by: Miscellaneous Information (Potassium Replacement Protocol 1 Each Misc) 1 each MISCELLANE DAILY PRN; Protocol PRN Reason: Per Protocol Naloxone HCl (Naloxone 0.4 Mg/Ml 1 Ml Vial) 0.2 mg IV Q2M PRN PRN Reason: Opioid Reversal Pantoprazole Sodium (Pantoprazole 40 Mg/10 Ml Vial) 40 mg IVP DAILY [facility] Last Admin: 09/25/21 09:48 Dose: 40 mg Documented by: Tamsulosin HCl (Tamsulosin 0.4 Mg Cap.Er.24h) 0.4 mg PO PC-SUPPER [facility] Last Admin: 09/24/21 21:15 Dose: 0.4 mg Documented by: Past medical history to include: COPD, asthma, diabetes, hypertension, hyperlipidemia, obstructive sleep apnea uses CPAP, herniated disc uses injections, pneumonia June 2021 patient intubated Social history: Alcohol occasionally. Occasional cigar. Marijuana occasionally. . At rehab Family history: Skin cancer, macular degeneration Physical examination: VITAL SIGNS: 98.6, 99, 18, 102/59, 99% on 2 L GENERAL: laying in bed, awake, tired EYES: Pupils equal. Conjunctiva normal. HEENT: External appearance of nose and ears normal, oral cavity endotracheal tube NECK: JVD not raised; masses not palpable. HEART: First and second heart sounds are normal; edema. LUNGS: Respiratory rate increased; decreased breath sounds ABDOMEN: Soft, some tenderness, no guarding rigidity GRETCHEN drain, binder liver spleen not palpable, no masses palpable. PSYCH: Answering questions appropriately. Mood and affect a bit low MUSCULOSKELETAL:No Clubbing/cyanosis;muscles-grossly intact NEUROLOGICAL: Cranial nerves grossly intact; no facial asymmetry, decreased power lower extremity. INVESTIGATIONS, reviewed in the clinical context: September 25: White count 9.1 hemoglobin 7.9 potassium 3.6 creatinine 2.33 September 24: White count 9.4 hemoglobin 7.3 potassium 3.7 BUN 24 creatinine 3.63 September 21: White count 9.60 globin 6.4 platelets 300 potassium 3.4 creatinine 2.93 September 17: White count 8.8 hemoglobin 10.9 platelets relevant potassium 3.8 BUN 44 creatinine 5.05 September 16: White count 8.9 hemoglobin 11.7 potassium 4.2 BUN 35 creatinine 4.09 September 14: Sodium 135 BUN 39 creatinine 3.31. Blood glucose 64 September 13: White count 7.6 hemoglobin 10.3 platelets 1944.9 BUN 47 creatinine 3.2 to September 12: White count 12.1-year-old and 30.7 sodium 134 potassium 5.9 BUN 38 creatinine 2.76 September 11: Sodium 131 potassium 7.2 BUN 48 creatinine 3.73 White count 6.8 hemoglobin 13.8 platelets 244 sodium 136 potassium 4.9 BUN 40 creatinine 3.41. EKG tracing personally reviewed by me-sinus rhythm, right bundle branch block. Some T waves abnormalities Chest x-ray film personally reviewed by me-possible chronic changes Blood Glucose 36 Assessment and plan: -Severe hypotension, from acute kidney injury from decreased oral intake: Better -Acute metabolic encephalopathy : Better Seen by Neurology -Chronic congestive heart failure. From diastolic dysfunction EF 55-60%: Hold diuretics for now -Acute kidney injury ATN from hypotension: On renal replacement therapy on hemodialysis -Acute metabolic acidosis from worsening renal failure: Better bicarbonate drip-discontinued. Oral bicarbonate -Acute severe hyperkalemia from metabolic acidosis: Better -Sinus tachycardia likely from sepsis -Anorexia multifactorial: Supple improvement Did not respond to Marinol. Advance diet as tolerated -Gangrenous cholecystitis followed by cholecystectomy. IV Zosyn. Cholecystectomy on September [address] Jackson -Sepsis. Secondary to gangrenous cholecystitis Zosyn. 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 -Obesity BMI 51.4 -Adjustment disorder Seen by psychiatry. No medications. -Essential hypertension, Lopressor started -Restless leg syndrome Requip .25 mg daily at bedtime -Diabetes mellitus type 2 on oral hypoglycemic, uncontrolled with hypoglycemia: Slow to respond Hold of oral hypoglycemic. Follow Accu-Cheks. -Hyperlipidemia Hold off Zocor because of muscle weakness -BPH Flomax 0.4 mg daily -COPD Advair 250/50 one puff twice a day [currently held]. DuoNeb 4 times a day -Chronic medical debility from recent protracted hospitalization PTOT -Full code IV Zosyn. GRETCHEN drain. Nurse will call the to get some food for home as patient does not like hospital food. Discussed with patient. Will be moved out of ICU.
[2021-09-25] MEDS: TAMSULOSIN 0.4 MG CAP.ER.24H PO SCH (22:13)
[2021-09-25] MEDS: GABAPENTIN 100 MG CAP PO SCH (22:13)
[2021-09-25 23:12] LABS: Glucose,Whole Blood 103 mg/dL (75-99)
[2021-09-26] MEDS: INSULIN ASPART (NovoLOG) 100 UNIT/ML VIAL SQ SCH ×3 (06:25→18:10)
[2021-09-26 06:48] LABS: Glucose,Whole Blood 106 mg/dL (75-99)
[2021-09-26] MEDS: IPRATROPIUM-ALBUTEROL 3 ML NEB INHALATION SCH ×4 (07:34→19:52)
--- NOTE | 2021-09-26 10:13 | P.PN ---
Subjective Patient is seen for follow-up for acute kidney injury and hyperkalemia. He was significantly hypotensive on initial admission. Serum creatinine had peaked at 3.7 mg/dL but due to the potassium staying elevated at 7.3 patient was dialyzed . Urine output had improved and dialysis was held to monitor for possible recovery of renal function but urine output remained low and therefore patient has been maintained on dialysis. Patient was taken to OR on 09/17/21 and had open cholecystectomy. He was found to have acute gangrenous cholecystitis and necrosis of the gallbladder wall. Postoperatively patient has been transferred to the ICU. He remains intubated. Poor urine output Patient is seen on telemetry floor. He has been transferred out of the ICU.. Patient remains hemodialysis dependent with poor urine output. Blood pressure is improved and he is off of pressors. Extubated on 09/22/2021 Urine output remains poor. Overall patient is feeling much better after dialysis yesterday. We had about 2 L of ultrafiltration yesterday. Objective - Vital Signs Vital signs: Vital Signs Temp 98.0 F 09/26/21 08:00 Pulse 101 H 09/26/21 08:00 Resp 17 09/26/21 08:00 BP 121/71 09/26/21 08:00 Pulse Ox 100 09/26/21 08:00 Intake & Output 09/25/21 09/26/21 09/26/21 18:59 06:59 18:59 Intake Total 360 Output Total 2009 1239 Balance -1650 -1240 Weight 159.4 kg Intake: IV 260 0.9 260 Intake, IV Titration 100 Amount Piperacillin-Tazobactam 3 100 .375 gm In Sodium Chloride 0.9% 100 ml @ 25 mls/hr IVPB Q12HR [facility] Rx #:[id number] Output: Drainage 40 Right Abdomen 40 Urine 10 1200 Hemodialysis 2000 Other: Voiding Method Indwelling Catheter Indwelling Catheter # Bowel Movements 1 ABP, PAP, CO, CI - Last Documented Arterial Blood Pressure 131/60 - Exam Patient is awake comfortable. He is not in any acute distress Examination of the heart S1 and S2 Examination lungs bilateral breath sounds are heard Abdomen is soft nontender obese Examination lower extremities shows chronic skin changes, 2+ edema noted. [employer] exam is grossly intact - Labs CBC & Chem 7: 09/25/21 13:13 09/25/21 13:13 Labs: Abnormal Lab Results - Last 24 Hours (Table) 09/25/21 09/25/21 09/25/21 Range/Units 11:50 13:13 13:13 RBC 2.70 L (4.30-5.90) m/uL Hgb 7.9 L (13.0-17.5) gm/dL Hct 25.9 L (39.0-53.0) % MCHC 30.6 L (31.0-37.0) g/dL RDW 19.0 H (11.5-15.5) % Lymphocytes # 0.8 L (1.0-4.8) k/uL Chloride 111 H (98-107) mmol/L Creatinine 2.33 H (0.66-1.25) mg/dL Glucose 144 H (74-99) mg/dL POC Glucose (mg/dL) 128 H (75-99) mg/dL Calcium 7.2 L (8.4-10.2) mg/dL 09/25/21 09/25/21 09/26/21 Range/Units 16:47 23:10 06:47 RBC (4.30-5.90) m/uL Hgb (13.0-17.5) gm/dL Hct (39.0-53.0) % MCHC (31.0-37.0) g/dL RDW (11.5-15.5) % Lymphocytes # (1.0-4.8) k/uL Chloride (98-107) mmol/L Creatinine (0.66-1.25) mg/dL Glucose (74-99) mg/dL POC Glucose (mg/dL) 178 H 103 H 106 H (75-99) mg/dL Calcium (8.4-10.2) mg/dL Assessment and Plan Assessment: 1. Hyperkalemia associated with acute kidney injury use of JENSEN inhibitor's prior to admission currently improved. 2. Acute kidney injury secondary to ATN from hypotension previous creatinine 0.7 on 08/10/2021. Started dialysis on 09/12/2021 for severe hyperkalemia. Urine output is poor postoperatively. Patient is maintained on dialysis. 3. Metabolic acidosis associated with acute kidney injury and recent shock and hypotension. 4. Acute cholecystitis with gangrenous bladder status post open cholecystectomy on 09/17/2021 5. Acute hypoxic respiratory failure, status post extubation on 09/22/2021 6. Volume overload slowly improving with dialysis Plan: Dialysis on 09/27/2021 Plan for IJ permacath placement early next week.
--- NOTE | 2021-09-26 10:37 | P.PN ---
Progress Note - Text Progress Note Date: 09/26/21 Patient remains stable. He has minimal complaints of incisional pain. His GRETCHEN drain is still producing approximately 40 50 mL of serosanguineous fluid per day. On exam abdomen is soft. Incisions clean and intact. Status post open cholecystectomy for gangrenous cholecystitis. Patient will Re ceive supportive care. We will remove his GRETCHEN drain once the output has decreased.
[2021-09-26] MEDS: METOPROLOL TARTRATE 25 MG TAB PO SCH ×2 (10:43→20:45)
[2021-09-26] MEDS: PANTOPRAZOLE 40 MG/10 ML VIAL IVP SCH (10:43)
[2021-09-26] MEDS: PIPERACILLIN-TAZOBACTAM 3.375 GM in SODIUM CHLORIDE 0.9% 100 ML IVPB SCH ×2 (11:04→20:46)
[2021-09-26 11:44] LABS: Glucose,Whole Blood 92 mg/dL (75-99)
[2021-09-26] MEDS ORDERED: polyethylene glycoL 3350 17 GM POWD.PACK PO STA (15:18)
[2021-09-26] MEDS: POTASSIUM BICARBONATE/CIT AC 20 MEQ TABLET.EFF PO SCH (15:32)
--- NOTE | 2021-09-26 15:54 | P.PN ---
Subjective Progress Note Date: 09/26/21 61-year-old male patient, who was transferred to the hospital on 09/09/2021 from the long term where he was residing. The patient was sent to [facility] for further rehabilitation as the patient had a prolonged hospitalization back in June 2021 that extended to July 2021. At that time, the patient had a very complicated course as the patient was intubated and placed on a mechanical ventilator on 06/25/2021. He presented to us hypothermic, had pneumonia and sepsis and complete opacification of the left lung. During the course of his illness, he Is negative for microbial growth and he also tested negative for COVID 19. He underwent bronchoscopy 2 on 06/27/2021 and 07/03/2021. His left lung gradually reexpanded. Post extubation, he was given BiPAP. He is known to have asthma, diabetes, hypertension, hyperlipidemia and obstructive sleep apnea and BPH. He was given aggressive chest PT, percussion, deep breathing and pulmonary toileting and based on his generalized weakness, he was sent for rehabilitation. During this current admission, the patient reports that he was not doing well. He does not get to the point where he was ambulatory. Obviously is a non-reliable historian. He states that he was not feeling well. He was feeling weak. He was not eating much. He did not like the food and his oral intake was quite diminished. He came into the ED with hypotension with a blood pressure of 70/50. The patient's potassium level initially was at 4.9 and the patient was in acute kidney injury. Subsequently, the potassium came up to 7.3. Various treatments done to improve the potassium and failed and ultimately, the patient got transferred to the ICU for hyp erkalemia. He was given a dialysis catheter and he received a session of hemodialysis yesterday. This morning, his potassium level is down to 5.9. Creatinine is improving. Urine output is in order of 20-25 mL an hour. He has a dialysis catheter in his right groin. He has no signs of any respiratory distress. Chest x-rays unchanged and there is a stable atelectasis in left lung base. The patient remains about O2 and currently he is a 96% pulse ox. Most recent BP is 88/50 from this morning. He was noted to be tachycardic over the past 24 hours. Cardiac rhythm is sinus. White cell count is at low hemoglobin 15.7 and a platelet count of 195. Note. Indication of an underlying infection. The patient's UA was not showing any signs of infection. Blood cultures 2 were sent from admission are negative. He has stage II wounds. No significant cough sputum production. No wheezing. No altered mentation or headache or neck stiffness. In the ICU, give this patient a bolus of 1 L. I started him on IV Zosyn and IV. The ulcers. He is on Levemir insulin 16 units at bedtime along with a sliding scale coverage. On 09/13/2021 patient seen in follow-up in the intensive care unit. He is awake and alert, in no acute distress, he is resting comfortably in bed, denies any dyspnea. Room air pulse ox is 94%, patient is having hemodialysis treatment. He did wear CPAP support last night. Patient remains on empiric antibiotics with doxycycline and Zosyn. Patient continues to have low-grade fevers and a T- max in the last 24 hours was 101.6F at 8:00 in the morning yesterday. No cough, no chest discomfort, no hemoptysis. Hemodynamically stable, he is receiving IV fluids normal saline at a rate of 75 ML per hour. Breathing is nonlabored, comfortable. His chest x-ray on 09/11/2021 showed mild blunting of the left costophrenic angle, clear right lung. Today's labs have been reviewed with blood cell count is 7.6, hemoglobin is 11.3, platelet count is 194, sodium is 132, the rest of electrolytes were within normal limits, BUN is 47, creatinine is 3.22. Patient is not requiring any vasopressor support, echocardiogram has been completed showing moderate concentric LVH, EF of 55-60%, and severe enlargement of the right ventricle. On 09/14/2021 patient seen in follow-up on selective care unit, he is resting in bed, breathing comfortably, lung sounds are essentially clear to auscultation, no rhonchi no wheezing, denies any cough, no phlegm production or chest disc omfort. She did wear his CPAP device at night. At the on room air pulse ox is 95%, he was dialyzed yesterday and 900 mL of fluid was removed with hemodialysis. No plans for hemodialysis today according to the patient. Today's labs have been reviewed, sodium is 135, the rest of electrolytes are w ithin normal limits, BUN is 39, creatinine is 3.31. 4 sets of blood cultures have shown no growth thus far since admission. Unclear the source of possible infection, patient remains on antibiotics for empiric antibiotic coverage, as patient for pneumonia is low On 09/16/2021 patient seen in follow-up on medical surgical floor, he is resting in bed, does not appear to be in any acute distress, he is currently it is of oxygen, he is satting 96%, at night he is been wearing his CPAP device from home. Denies any worsening dyspnea, no complaints of chest discomfort, still has some mild generalized edema. Today's labs have been reviewed, white blood cell count is 8.9, hemoglobin is 11.7, sodium is 138, potassium is 4.2, chloride is 107, CO2 is 15, B1 is 35, creatinine is 4.09. Nephrology is following, and had hemodialysis treatment yesterday with removal 1.3 L of fluid. Appetite is fair, no nausea or vomiting, however patient is incontinent of liquid brown stool. Patient has had no fever or chills, his blood cultures have been negative, as of dyspnea or cough, no phlegm production, breathing comfortably, lung sounds are clear. His last chest x-ray was on 09/14/2021 grossly unre markable lungs. On 09/17/2021 patient seen in follow-up in the recovery room. This morning patient was taken to surgery for cholecystectomy and he was found to have acute gangrenous cholecystitis with transmural necrosis of gallbladder wall. Following the procedure patient is still intubated and sedated in the recovery room, on assist control mode of ventilation with a rate of 12, tidal volume is 450, FiO2 of 100% and PEEP of 5. His peak air pressure is 28, plateau is 21, he is resting comfortably on a gurney in the recovery room, still sedated, Diprivan will be started, 0.9 normal saline at a rate of 75 ML per hour, his postoperative blood gas and chest x-ray are pending. This morning's labs have been reviewed, white blood cell count was 8.8, hemoglobin was 10.9, sodium is 136, potassium 3.8, BUN was 44, creatinine is 5.05, postoperative labs are pending. Patient continues on Zosyn for antibiotic coverage. Surgical incision is clean dry and intact, abdominal binder is in place, NG tube is in place to low intermittent suction. On 09/22/2021 patient seen in follow-up in intensive care unit. He is postoperative day #5 status post ectomy for acute gangrenous cholecystitis with transmural necrosis of the gallbladder wall. Patient remains intubated and sedated on assist control mode of ventilation with a rate of 12, tidal lung is 450, FiO2 of 30% and PEEP of 5, this morning's blood gas shows pO2 of 122, pCO2 of 39, and pH of 7.42 and this was done on the above-mentioned vent settings and FiO2 of 30%. Today's chest x-ray has been reviewed and left lower lobe atelectasis versus pneumonia and associated effusion. Patient required small amount of norepinephrine on and off through the night, it is currently weaned off. His blood pressure stable at 107/54. He is in sinus mechanism, slightly tachycardic with a rate of 1038 BPM, his 0.9 normal saline is a 60 ML per hour, Diprivan and is at 20 mics per kilo per minute. Sedation is currently on hold for possibility of spontaneous breathing trials. There has been no active bleeding overnight white blood cell count is improved and is down to 9.4, hemoglobin is 6.8, platelet count is 317, sodium is 140, potassium 3.6, chloride is 109, BUN is 22 creatinine is 2.93. Occult blood was positive on 09/19/2021. He did receive 2 units of pack red blood cells on 09/19/2021 and 1 unit of packed red blood cells yesterday on 09/21/2021. tube feedings are currently on hold for possibility of permacath dialysis port placement. CT of the abdomen and pelvis from yesterday was a suboptimal study and showed expected changes from cholecystectomy, percutaneous drainage catheter going through the gallbladder fossa and terminating in the midline anterior and superior to the gallbladder fossa. Ill-defined fluid and air at the level of the gallbladder fossa is nonspecific. There was soft tissue anasarca along with small bilateral pleural effusions and mild amount of intra-abdominal ascites, possibly related to fluid overload state. Patient has significant generalized edema, he isn't +1.5 L net fluid balance over the last 24 hours, overall is +27 kg in the last 7-10 days. Nephrology has been following. He is practically anuric, and the plan is to dialyze him today. In addition patient remains on antibiotics with Zosyn, 4 sets of blood cultures are negative. On 09/23/2021 patient is seen in follow-up in intensive care unit. Patient was successfully weaned and extubated yesterday on 09/22/2021, he is awake and alert, he is oriented to person, a bit slow to respond, disoriented to place and time. Patient is breathing comfortably, he is on 4 L of oxygen pulse ox is 99%. Denies any shortness of breath, no cough. No tachypnea, no complaints of chest discomfort. Yesterday he had hemodialysis would removal of 2 L of fluid. Still quite generally fluid overloaded, his chest x-ray today shows interval extubation, worsening left lower lung opacity consistent with small left pleural effusion with associated left lower lung infiltrate. Today's labs have been reviewed, white blood cell count is 8.8, hemoglobin is 6.2 with no evidence of active bleeding, and platelet count was 289, sodium is 141, potassium 3.4, chloride is 113, when is 19, and creatinine is 2.93. Patient remains anuric. Physical incisions are clean dry and intact, minh are intact. Abdominal binder is in place, abdomen is nontender, patient had a bowel movement on Monday. He is thirsty and is asking for something to drink. We'll start him on clear liquids with surgical clearance this morning. Left subclavian triple lumen central line catheter insertion site is clean dry and intact, right groin hemodialysis catheter had been exchanged yesterday. Remains on Zosyn empirically, so far all blood cultures are negative. On 09/24/2021 patient seen in follow-up in intensive care units. He is awake and alert, oriented to person and place, coming comfortable, denies any acute distress, denies any difficulty breathing, room air pulse ox the 100%, he wore his CPAP device from home last night. Hemodynamically has remained stable, he is in sinus mechanism with a rate of 108, blood pressure is 151/99 this morning, recent was not dialyzed yesterday but he is having hemodialysis treatment today. The dose of IV Lasix 80 mg per nephrology this morning, today's chest x-ray showing hazy density on the left along with retrocardiac atelectasis and/or infiltrate. And improved aeration at the right base. Patient has been tolerating clear liquid diet, no nausea vomiting or diarrhea, no signs of active bleeding, yesterday she received a unit of blood hemoglobin of 6.4, today's hemoglobin is up to 7.3, his white blood cell count today is 9.4, platelet count is 309, sodium is 142, potassium is 3.7, chloride is 113, CO2 is 23, BUN is 24, creatinine is 3.63. His urine output has been 0 ML per hour for the most part, 40 mL this morning after the dose of Lasix. Overall he is in +981 mL net fluid balance over the last 24 hours, he does have moderate generalized edema, right groin temporary hemodialysis catheter is in place. Generally patient is quite weak. Physical therapy on consultation, patient has not been up out of bed yet 09/25/2021, the patient is awake and alert and communicating. He has no spec ific complaints. Is afebrile. GRETCHEN drain output is minimal at the surgical wound site is dry clean and intact. The patient has been on antibiotics with IV Zosyn for the past 13 days. The patient is going to undergo hemodialysis today. His urine output is minimal in the order of 70 mL over the past 24 hours. He will likely need permanent hemodialysis and permanent permacath catheter insertion. For now, the patient is being dialyzed through a right femoral hemodialysis catheter. He is awake. He is alert. His hemoglobin stable at 7.3. White cell count is at 9.4. No other significant issues otherwise for now. He remains on oxygen on 2 L with a pulse ox of 99%. Using incentive spirometer. He is weak. Is working with physical therapy. 09/26/2021, the patient is resting comfortably in bed. The patient will specific complaints. Tolerating his diet. He underwent a left hemodialysis session yesterday. He remains on IV Zosyn. Is completing today his 14 day of antibiotics. GRETCHEN drain will be kept in place for surgical recommendation. The patient has a surgical wound. Permacath needs to be inserted. Otherwise, the patient will specific complaints. The patient is not producing any urine output. No new labs are available from today. Objective - Vital Signs Vital signs: Vital Signs Temp 98.5 F 09/26/21 14:34 Pulse 112 H 09/26/21 14:34 Resp 18 09/26/21 14:34 BP 122/74 09/26/21 14:34 Pulse Ox 96 09/26/21 14:34 Intake & Output 09/25/21 09/26/21 09/26/21 18:59 06:59 18:59 Intake Total 360 Output Total 2009 1239 Balance -1650 -1240 Weight 159.4 kg Intake: IV 260 0.9 260 Intake, IV Titration 100 Amount Piperacillin-Tazobactam 3 100 .375 gm In Sodium Chloride 0.9% 100 ml @ 25 mls/hr IVPB Q12HR [facility] Rx #:[id number] Output: Drainage 40 Right Abdomen 40 Urine 10 1200 Hemodialysis 1999 Other: Voiding Method Indwelling Catheter Indwelling Catheter Indwelling Catheter # Bowel Movements 1 ABP, PAP, CO, CI - Last Documented Arterial Blood Pressure 131/60 - Exam - Exam GENERAL EXAM: Awake and alert 61-year-old white male, on room air with a pulse ox of 99 HEAD: Normocephalic/atraumatic. EYES: Normal reaction of pupils, equal size. Conjunctiva pink, sclera white. NOSE: Clear with pink turbinates. THROAT: No erythema or exudates. NECK: No masses, no JVD, no thyroid enlargement, no adenopathy. CHEST: No chest wall deformity. Symmetrical expansion. LUNGS: Equal air entry with no crackles, wheeze, rhonchi or dullness. CVS: Regular rate and rhythm, normal S1 and S2, no gallops, no murmurs, no rubs ABDOMEN: Soft, nontender. No hepatosplenomegaly, normal bowel sounds, no guarding or rigidity. Abdominal incisions are clean dry and intact, covered with the abdominal binder, minh intact, GRETCHEN drain is in place with small amount of sanguinous output EXTREMITIES: No clubbing, severe generalized edema, no cyanosis, 2+ pulses and upper and lower extremities. MUSCULOSKELETAL: Muscle strength and tone normal. SPINE: No scoliosis or deformity SKIN: No rashes CENTRAL NERVOUS SYSTEM: Awake and alert, oriented times one. No focal deficits, tone is normal in all 4 extremities. - Labs CBC & Chem 7: 09/25/21 13:13 09/25/21 13:13 Labs: Abnormal Lab Results - Last 24 Hours (Table) 09/25/21 09/25/21 09/26/21 Range/Units 16:47 23:10 06:47 POC Glucose (mg/dL) 178 H 103 H 106 H (75-99) mg/dL Assessment and Plan Plan: #1. Acute gangrenous cholecystitis with transmural necrosis of the gallbladder wall, status post open cholecystectomy on 09/17/2021. The GRETCHEN drain is putting minimal amount of output in the surgical wound site is dry clean and intact. The patient remains on IV Zosyn. Completing a total of 2 week course. #2. Routine postoperative ventilator management after open cholecystectomy on 09/17/2021, successfully weaned and extubated on 09/22/2021 #3. Acute kidney injury related to the above, and was initiated on hemodialysis, the patient will need a permacath. The patient is going to undergo hemodialysis today. #4. Acute on chronic anemia, occult stool positive, s/p transfusion with 4 units of blood, current Hgb is 7.2, possibly related to GI blood loss anemia and acute kidney injury #5. Non-anion gap metabolic acidosis, improved #6. Acute hyperkalemia, resolved with hemodialysis #7. Hypotension sinus tachycardia related to acute sepsis, currently improved #8. Morbid obesity with BMI 41.8 #9. History of acute hypoxic respiratory failure on the mechanical ventilator back in mid June 2021 with left lung collapse post bronchoscopy 2 #10. Bronchial asthma, chronic, unspecified #11. Diabetes note this type II #12. Hyperlipidemia #13. Hypertension #14. Obstructive sleep apnea on CPAP therapy #15. BPH #16. Diarrhea, negative C. diff #17. Severe general medical debility related to severe critical illness Plan Condition is the same and the patient got transferred out of the intensive care unit. Discontinue IV Zosyn as of tomorrow We'll discuss with general surgery the possibility of removing the GRETCHEN drain. The surgeon opted to keep the GRETCHEN drain for another 24 hours Surgical wound site is dry clean and intact Permacath insertion Hemodialysis today Physical therapy Monitor hemoglobin Transferred out of the intensive care unit currently on a medical floor
[2021-09-26 16:32] LABS: Glucose,Whole Blood 147 mg/dL (75-99)
--- NOTE | 2021-09-26 17:13 | P.PN ---
Progress Note - Text Progress Note Date: 09/26/21 Chief Complaint: Tired This is a 61-year-old patient, follows with Dr. Seda Schneider. Chronic stable medical conditions include diabetes, , hyperlipidemia, obstructive sleep apnea uses CPAP, herniated disc / injections,. Patient was in the hospital from 06/26/2021 through July 16 Admitted with pneumonia, severe hypothermia, acute hypoxic respiratory failure, possible sepsis, possible acute congestive heart failure exacerbation. Was intubated. Was discharged on intermittent BiPAP. [place] to have possible viral pneumonitis. Was negative for COVID. Was discharged to rehab. At the rehab patient had a poor appetite. Not really able to walk. Patient was at political scientist up as found a very low blood pressure. Admitted. Denies any fever and chills. Actually eating better here. Has been having daily bowel movements. Occasional diarrhea. Does feel tired and rundown. Admitted with severe hypotension, acute kidney injury, hypoglycemia. Diuretics were held. IV hydration. PTOT. September 11: Lasted patient abdominal pain. Abdominal x-ray unremarkable. Surgery consulted. Patient's is present. Appetite is actually getting better. Continue IV fluids. Renal function worsening. Start bicarbonate drip. Coughing up some yellow sputum. Add doxycycline for acute bronchitis. Check creatinine kinase. Rule out rhabdomyolysis. September 12: Patient potassium persisted to be high yesterday. In spite of having several medications. Moved to the ICU. Nephrology consulted. Dialysis catheter was placed and patient received hemodialysis late last night. Poor appetite. Tired. Seen by psychiatry. [place] to have adjustment disorder. September 13: ICU: Tired and sleepy. Barely eating. I reviewed medications. Patient on Neurontin in the setting of acute kidney injury this can cause the patient to be lethargic. Cut back on the dose. Dialysis today. About half a liter removed. IV Zosyn. September 14: Patient started on Marinol yesterday. Still appetite is poor. Pharyngeal hygiene not good. Discussed with the nurse to get it clean. Including saltwater gargle. Patient bit more awake after cutting back dose of Neurontin. On IV Zosyn. September 15: Patient not really eating. Neurontin cutback 200 mg daily at bedtime. Reminded nurse about pharyngeal tolerate. Not much urine output. IV fluids increased to 130 mL an hour. Hypoglycemic. DC Lantus. September 16: Patient does complain of feeling depressed. Not eating. Patient was reevaluated by psychiatry. [place] to be adjustment disorder. Patient does not have any pain in the lower extremity except on movement. cutback Requip. .25 mg daily at bedtime. It is cleared through the renal route. Getting a neurological evaluation. The unlikely will check patient's ammonia level. Also spoke to the about possible feeding tube. Given poor oral intake. Patient only eating a few bites here and there September 17: Patient taken to the OR. Dr. Renetta Santillan the patient's found to have a gangrenous gallbladder. GRETCHEN drain. Patient taken to the ICU postprocedure. On the ventilator. IV propofol. Spoke to patient's family including the at the bedside. September 23: ICU: I assumed care of patient today. He was extubated yesterday. On 2 L nasal cannula. Globin 6.4. 1 unit of blood ordered. Clear liquid diet. GRETCHEN drain in place. Draining serosanguineous. at the bedside. Weakness. Right femoral dialysis catheter. Patient getting DDAVP today. For hemodialysis tomorrow. September 24: ICU: Awake, communicating. Tired. Did tolerate liquid diet this morning. Diet is being advanced. Received a unit of blood yesterday. He'll globin up as 7.3. Remains oliguric. Hemodialysis today September 25: ate little bit of breakfast did not like hospital food. Told to increase limb movements while in bed. IV Zosyn. Tired. September 26: Barely eating. GRETCHEN drain. IV Zosyn. Upper extremities moving better. Minimal movements of lower extremity. Encourage oral intake. On hemodialysis . Active Medications Acetaminophen (Acetaminophen Tab 325 Mg Tab) 650 mg PO Q6HR PRN PRN Reason: Mild Pain or Fever > 100.5 Last Admin: 09/12/21 20:09 Dose: 650 mg Documented by: Albuterol/Ipratropium (Ipratropium-Albuterol 3 Ml Neb) 3 ml INHALATION RT-QID ERINN Last Admin: 09/26/21 16:48 Dose: 3 ml Documented by: Albuterol/Ipratropium (Ipratropium-Albuterol 3 Ml Neb) 3 ml INHALATION RT-Q2H PRN PRN Reason: Shortness Of Breath Or Wheezing Darbepoetin Arthur (Darbepoetin Arthur 40 Mcg/0.4 Ml Syringe) 40 mcg SQ Q7D [facility] Last Admin: 09/21/21 15:54 Dose: 40 mcg Documented by: Gabapentin (Gabapentin 100 Mg Cap) 100 mg PO HS [facility] Last Admin: 09/25/21 22:13 Dose: 100 mg Documented by: Hydromorphone HCl (Hydromorphone 1 Mg/Ml 1 Ml Syringe) 1 mg IVP Q3HR PRN PRN Reason: Pain Last Admin: 09/25/21 00:14 Dose: 1 mg Documented by: Piperacillin Sod/Tazobactam (Sod 3.375 gm/ Sodium Chloride) 100 mls @ 25 mls/hr IVPB Q12HR [facility]; Protocol Last Admin: 09/26/21 11:04 Dose: 25 mls/hr Documented by: Insulin Aspart (Insulin Aspart (Novolog) 100 Unit/Ml Vial) 0 unit SQ Q6HR [facility]; Protocol Last Admin: 09/26/21 13:32 Dose: Not Given Documented by: Metoprolol Tartrate (Metoprolol Tartrate 25 Mg Tab) 25 mg PO BID [facility] Last Admin: 09/26/21 10:43 Dose: 25 mg Documented by: Miscellaneous Information (Potassium Replacement Protocol 1 Each Misc) 1 each MISCELLANE DAILY PRN; Protocol PRN Reason: Per Protocol Naloxone HCl (Naloxone 0.4 Mg/Ml 1 Ml Vial) 0.2 mg IV Q2M PRN PRN Reason: Opioid Reversal Pantoprazole Sodium (Pantoprazole 40 Mg/10 Ml Vial) 40 mg IVP DAILY [facility] Last Admin: 09/26/21 10:43 Dose: 40 mg Documented by: Tamsulosin HCl (Tamsulosin 0.4 Mg Cap.Er.24h) 0.4 mg PO PC-SUPPER [facility] Last Admin: 09/25/21 22:13 Dose: 0.4 mg Documented by: Past medical history to include: COPD, asthma, diabetes, hypertension, hyperlipidemia, obstructive sleep apnea uses CPAP, herniated disc uses injections, pneumonia June 2021 patient intubated Social history: Alcohol occasionally. Occasional cigar. Marijuana occasionally. . At rehab Family history: Skin cancer, macular degeneration Physical examination: VITAL SIGNS: 98.5, 112, 18, 122/74, 96% room air GENERAL: laying in bed, awake, tired EYES: Pupils equal. Conjunctiva normal. HEENT: External appearance of nose and ears normal, oral cavity endotracheal tube NECK: JVD not raised; masses not palpable. HEART: First and second heart sounds are normal; edema. LUNGS: Respiratory rate increased; decreased breath sounds ABDOMEN: Soft, some tenderness, no guarding rigidity GRETCHEN drain, binder liver spleen not palpable, no masses palpable. PSYCH: Answering questions appropriately. Mood and affect a bit low MUSCULOSKELETAL:No Clubbing/cyanosis;muscles-grossly intact NEUROLOGICAL: Cranial nerves grossly intact; no facial asymmetry, decreased power lower extremity. INVESTIGATIONS, reviewed in the clinical context: September 25: White count 9.1 hemoglobin 7.9 potassium 3.6 creatinine 2.33 September 24: White count 9.4 hemoglobin 7.3 potassium 3.7 BUN 24 creatinine 3.63 September 21: White count 9.60 globin 6.4 platelets 300 potassium 3.4 creatinine 2.93 September 17: White count 8.8 hemoglobin 10.9 platelets relevant potassium 3.8 BUN 44 creatinine 5.05 September 16: White count 8.9 hemoglobin 11.7 potassium 4.2 BUN 35 creatinine 4.09 September 14: Sodium 135 BUN 39 creatinine 3.31. Blood glucose 64 September 13: White count 7.6 hemoglobin 10.3 platelets 1944.9 BUN 47 creatinine 3.2 to September 12: White count 12.1-year-old and 30.7 sodium 134 potassium 5.9 BUN 38 creatinine 2.76 September 11: Sodium 131 potassium 7.2 BUN 48 creatinine 3.73 White count 6.8 hemoglobin 13.8 platelets 244 sodium 136 potassium 4.9 BUN 40 creatinine 3.41. EKG tracing personally reviewed by me-sinus rhythm, right bundle branch block. Some T waves abnormalities Chest x-ray film personally reviewed by me-possible chronic changes Blood Glucose 36 Assessment and plan: -Severe hypotension, from acute kidney injury from decreased oral intake: Better -Acute metabolic encephalopathy : Better Seen by Neurology -Chronic congestive heart failure. From diastolic dysfunction EF 55-60%: Hold diuretics for now -Acute kidney injury ATN from hypotension: On renal replacement therapy on hemodialysis -Acute metabolic acidosis from worsening renal failure: Better bicarbonate drip-discontinued. Oral bicarbonate -Acute severe hyperkalemia from metabolic acidosis: Better -Sinus tachycardia likely from sepsis -Anorexia multifactorial: Supple improvement Did not respond to Marinol. Advance diet as tolerated -Gangrenous cholecystitis followed by cholecystectomy. IV Zosyn. Cholecystectomy on September [address] Jackson -Sepsis. Secondary to gangrenous cholecystitis Zosyn. 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 -Obesity BMI 51.4 -Adjustment disorder Seen by psychiatry. No medications. -Essential hypertension, Lopressor started -Restless leg syndrome Requip .25 mg daily at bedtime -Diabetes mellitus type 2 on oral hypoglycemic, uncontrolled with hypoglycemia: Slow to respond Hold of oral hypoglycemic. Follow Accu-Cheks. -Hyperlipidemia Hold off Zocor because of muscle weakness -BPH Flomax 0.4 mg daily -COPD Advair 250/50 one puff twice a day [currently held]. DuoNeb 4 times a day -Chronic medical debility from recent protracted hospitalization PTOT -Full code IV Zosyn. GRETCHEN drain. Encourage oral intake. Other medications to continue.
[2021-09-26] MEDS: TAMSULOSIN 0.4 MG CAP.ER.24H PO SCH (18:10)
[2021-09-26] MEDS: GABAPENTIN 100 MG CAP PO SCH (20:45)
[2021-09-27 00:47] LABS: Glucose,Whole Blood 109 mg/dL (75-99)
[2021-09-27] MEDS: INSULIN ASPART (NovoLOG) 100 UNIT/ML VIAL SQ SCH ×4 (02:31→17:21)
[2021-09-27 05:45] LABS: Glucose,Whole Blood 95 mg/dL (75-99)
[2021-09-27] MEDS: IPRATROPIUM-ALBUTEROL 3 ML NEB INHALATION SCH ×5 (07:18→21:33)
[2021-09-27] MEDS: PIPERACILLIN-TAZOBACTAM 3.375 GM in SODIUM CHLORIDE 0.9% 100 ML IVPB SCH ×2 (09:26→21:18)
[2021-09-27] MEDS: METOPROLOL TARTRATE 25 MG TAB PO SCH (09:26)
[2021-09-27] MEDS: PANTOPRAZOLE 40 MG/10 ML VIAL IVP SCH (09:26)
--- NOTE | 2021-09-27 11:10 | P.PN ---
Subjective Progress Note Date: 09/27/21 CHIEF COMPLAINT: Abdominal pain HISTORY OF PRESENT ILLNESS: Patient is transferred out of the ICU over the weekend. He's on regular medical floor. He denies any abdominal pain. Denies any nausea vomiting. He is having stools no blood reported. He is postop day #8 status post open cholecystectomy for acute gangrenous cholecystitis with transmural necrosis of gallbladder wall. GRETCHEN drain with serosanguineous 7 mL output through the night. Afebrile. No new labs PHYSICAL EXAM: VITAL SIGNS: Reviewed. GENERAL: Intubated HEENT: Moist buccal mucosa. Head is atraumatic, normocephalic. ABDOMEN: Soft. Nondistended. His incision clean dry and intact. GRETCHEN drain with serosanguineous output. ASSESSMENT: 1. Acute gangrenous cholecystitis status post open cholecystectomy 2. Acute kidney injury requiring hemodialysis 3. Anemia PLAN: -Continue dysphagia diet -Continue to monitor hemoglobin -Continue supportive care -Continue antibiotics Physician Molding Manager note has been reviewed by physician. Signing provider agrees with the documented findings, assessment, and plan of care. Objective - Vital Signs Vital signs: Vital Signs Temp 98.4 F 09/27/21 07:52 Pulse 110 H 09/27/21 09:26 Resp 18 09/27/21 07:52 BP 140/85 09/27/21 07:52 Pulse Ox 100 09/27/21 07:52 Intake & Output 09/26/21 09/27/21 09/27/21 18:59 06:59 18:59 Output Total 128 6 Balance -128 -6 Output: Drainage 28 6 Right Abdomen 28 6 Urine 100 Other: Voiding Method Indwelling Catheter Indwelling Catheter Indwelling Catheter # Bowel Movements 5 5 ABP, PAP, CO, CI - Last Documented Arterial Blood Pressure 131/60 - Labs CBC & Chem 7: 09/25/21 13:13 09/25/21 13:13 Labs: Abnormal Lab Results - Last 24 Hours (Table) 09/26/21 09/27/21 Range/Units 16:31 00:45 POC Glucose (mg/dL) 147 H 109 H (75-99) mg/dL
--- NOTE | 2021-09-27 11:20 | P.PN ---
Subjective Patient is seen for follow-up for acute kidney injury and hyperkalemia. He was significantly hypotensive on initial admission. Serum creatinine had peaked at 3.7 mg/dL but due to the potassium staying elevated at 7.3 patient was dialyzed . Urine output had improved and dialysis was held to monitor for possible recovery of renal function but urine output remained low and therefore patient has been maintained on dialysis. Patient was taken to OR on 09/17/21 and had open cholecystectomy. He was found to have acute gangrenous cholecystitis and necrosis of the gallbladder wall. Postoperatively patient has been transferred to the ICU. He remains intubated. Poor urine output Patient is seen on telemetry floor. He has been transferred out of the ICU.. Patient remains hemodialysis dependent with poor urine output. Blood pressure is improved and he is off of pressors. Extubated on 09/22/2021 Urine output remains poor. Overall patient is feeling much better . Scheduled for IJ catheter placement. Objective - Vital Signs Vital signs: Vital Signs Temp 98.4 F 09/27/21 07:52 Pulse 110 H 09/27/21 09:26 Resp 18 09/27/21 07:52 BP 140/85 09/27/21 07:52 Pulse Ox 100 09/27/21 07:52 Intake & Output 09/26/21 09/27/21 09/27/21 18:59 06:59 18:59 Output Total 128 6 Balance -128 -6 Output: Drainage 28 6 Right Abdomen 28 6 Urine 100 Other: Voiding Method Indwelling Catheter Indwelling Catheter Indwelling Catheter # Bowel Movements 5 5 ABP, PAP, CO, CI - Last Documented Arterial Blood Pressure 131/60 - Exam Patient is awake comfortable. He is not in any acute distress Examination of the heart S1 and S2 Examination lungs bilateral breath sounds are heard Abdomen is soft nontender obese Examination lower extremities shows chronic skin changes, 2+ edema noted. OPTOMETRIC TECH exam is grossly intact - Labs CBC & Chem 7: 09/25/21 13:13 09/25/21 13:13 Labs: Abnormal Lab Results - Last 24 Hours (Table) 09/26/21 09/27/21 Range/Units 16:31 00:45 POC Glucose (mg/dL) 147 H 109 H (75-99) mg/dL Assessment and Plan Assessment: 1. Hyperkalemia associated with acute kidney injury use of JENSEN inhibitor's prior to admission currently improved. 2. Acute kidney injury secondary to ATN from hypotension previous creatinine 0.7 on 08/10/2021. Started dialysis on 09/12/2021 for severe hyperkalemia. Urine output is poor postoperatively. Patient is maintained on dialysis. 3. Metabolic acidosis associated with acute kidney injury and recent shock and hypotension. Resolved 4. Acute cholecystitis with gangrenous bladder status post open cholecystectomy on 09/17/2021 5. Acute hypoxic respiratory failure, status post extubation on 09/22/2021, continuing to improve 6. Volume overload slowly improving with dialysis Plan: Hemodialysis today. [place] patient is scheduled for IJ catheter placement as well .
[2021-09-27 11:39] LABS: Glucose,Whole Blood 85 mg/dL (75-99)
--- NOTE | 2021-09-27 12:26 | P.CONS ---
History of Present Illness - Reason for Consult Consult date: 09/27/21 wound care - History of Present Illness This is a 61-year-old patient being seen on 4 S. for nonhealing ulceration to the right and left buttocks. Patient has a stage II pressure ulcer to the right buttocks with granulation seen throughout the wound bed and minimal slough. Wound edges are attached to the wound base the periwound does so some maceration excoriation. The left ulceration is a stage II pressure ulcer with significant amount of slough and minimal granulation seen within the wound bed. Wound edges are attached to the wound base there is no tunneling or undermining noted. The periwound shows maceration excoriation. Patient had the ulcerations from his previous admission. He was an extended care facility following with a wound care doctor who was doing debridements to the site. Patient does not know the dressings that were being utilized. Review Of Systems: Constitutional: No fever, no chills, no night sweats. No weight change. No weakness, fatigue or lethargy. No daytime sleepiness. Integumentary:reports wounds, no lesions. No rash or pruritus. No unusual bruising. No change in hair or nails. Physical exam: General Appearance: Alert, cooperative, no distress, appears stated age. Skin: See HPI all other Skin color, texture, tugor normal, no rashes or lesions. Neurologic: Alert oriented x3 Assessment: 1. Stage II pressure ulcer left buttocks 2. Stage II pressure ulcer right buttocks Plan: 1. Apply honey gel border foam change Monday. Turn patient every 2 hours. Utilized surface algorithm for the appropriate surface. The patient is sitting in a chair use a air filled cushion. Patient to continue with advanced wound care and debridement. We'll be happy to see him in the wound care center upon discharge. Thank you for the consultation any questions please contact the wound care center DNP note has been reviewed and discussed with Dr. Centeno and the impression and plan of care has been directed as dictated. Past Medical History Past Medical History: COPD, Diabetes Mellitus, Deep Vein Thrombosis (DVT), Hyperlipidemia, Hypertension, Pneumonia, Prostate Disorder, Sleep Apnea/CPAP/BIPAP Additional Past Medical History / Comment(s): sleep apnea uses cpap machine, herniated disc-has had injections, past stress test pt stated was wnl, had a pne vaccine approx 3 years ago , board writer unable to verify date at time of this admit. History of Any Multi-Drug Resistant Organisms: None Reported Past Surgical History: Hernia Repair Additional Past Surgical History / Comment(s): hydrocelectomy, vasectomy, colonoscopy/polypectomy-benign. umbilical hernia repair, injections for herniated disc. Past Anesthesia/Blood Transfusion Reactions: No Reported Reaction Additional Past Anesthesia/Blood Transfusion Reaction / Comm: clausterphobia. pt stated has never had a blood transfusion Past Psychological History: No Psychological Hx Reported Smoking Status: Never smoker Past Alcohol Use History: Occasional Additional Past Alcohol Use History / Comment(s): approx 2008 briefly smoked the occ cigar. pt has a rare drink Past Drug Use History: Marijuana Additional Drug Use History / Comment(s): approx every 3 months - Past Family History Mother Family Medical History: Cancer, Eye Disorder Additional Family Medical History / Comment(s): skin cancer, macular degeneration Father Family Medical History: Coronary Artery Disease (CAD), Dementia Additional Family Medical History / Comment(s): cabg, stents, uti/sepsis Medications and Allergies Home Medications Medication Instructions Recorded Confirmed Type Aspirin EC [Ecotrin Low Dose] 81 mg PO DAILY 08/23/18 09/09/21 History Tamsulosin [Flomax] 0.4 mg PO DAILY@1400 08/23/18 09/09/21 History glipiZIDE [Glucotrol] 5 mg PO DAILY 08/23/18 09/09/21 History metFORMIN HCL [Glucophage] 1,000 mg PO BID 08/23/18 09/09/21 History rOPINIRole HCL [Requip] 1 mg PO HS 08/23/18 09/09/21 History Famotidine [Pepcid] 20 mg PO BID tab 07/16/21 09/09/21 Rx Folic Acid 1 mg PO DAILY tab 07/16/21 09/09/21 Rx Furosemide [Lasix] 40 mg PO DAILY tab 07/16/21 09/09/21 Rx Ipratropium-Albuterol Nebulize 3 ml INHALATION RT-QID ml 07/16/21 09/09/21 Rx [Duoneb 0.5 mg-3 mg/3 ml Soln] Metoprolol Tartrate [Lopressor] 50 mg PO BID tab 07/16/21 09/09/21 Rx lisinopriL [Zestril] 10 mg PO DAILY #0 tab 07/16/21 09/09/21 Rx Apixaban [Eliquis] 5 mg PO BID 09/09/21 09/09/21 History Ascorbic Acid [Vitamin C] 1,000 mg PO DAILY@0800 09/09/21 09/09/21 History Cholecalciferol [Vitamin D3 (25 50 mcg PO DAILY 09/09/21 09/09/21 History Mcg = 1000 Iu)] Fluticasone/Vilanterol [Breo 1 puff INHALATION RT-DAILY 09/09/21 09/09/21 History Ellipta 100-25 Mcg Inhaler] Gabapentin [Neurontin] 300 mg PO BID 09/09/21 09/09/21 History Multivitamins, Thera [Multivitamin 1 tab PO DAILY 09/09/21 09/09/21 History (formulary)] Potassium Chloride ER [K-Dur 20] 20 meq PO DAILY 09/09/21 09/09/21 History Zinc Sulfate [Orazinc] 220 mg PO DAILY 09/09/21 09/09/21 History hydrALAZINE HCL 25 mg PO BID@0500,1600 09/09/21 09/09/21 History hydrALAZINE HCL 50 mg PO BID@0500,1600 09/09/21 09/09/21 History metroNIDAZOLE [Flagyl] 500 mg PO DAILY 09/09/21 09/09/21 History Allergies Allergy/AdvReac Type Severity Reaction Status Date / Time No Known Allergies Allergy Verified 09/09/21 18:45 Physical Exam Vitals: Vital Signs Temp Pulse Pulse Resp BP Pulse Ox 09/27/21 09:26 110 H 09/27/21 07:52 98.4 F 99 18 140/85 100 09/27/21 07:31 110 H 09/27/21 07:21 106 H 09/27/21 02:00 98.7 F 93 17 119/75 09/26/21 20:46 109 H 19 09/26/21 20:00 98.7 F 109 H 19 116/73 97 09/26/21 16:59 112 H 09/26/21 16:48 112 H 09/26/21 14:34 98.5 F 112 H 18 122/74 96 Intake and Output 09/26/21 09/27/21 09/27/21 22:59 06:59 14:59 Output Total 20 108 6 Balance -20 -108 -6 Output: Drainage 20 8 6 Right Abdomen 20 8 6 Urine 100 Other: Voiding Method Indwelling Catheter Indwelling Catheter # Bowel Movements 5 Results CBC & Chem 7: 09/25/21 13:13 09/25/21 13:13 Labs: Abnormal Lab Results - Last 24 Hours (Table) 09/26/21 09/27/21 Range/Units 16:31 00:45 POC Glucose (mg/dL) 147 H 109 H (75-99) mg/dL Assessment and Plan (1) Stage II pressure ulcer of left buttock Current Visit: Yes Status: Acute Code(s): L89.322 - PRESSURE ULCER OF LEFT BUTTOCK, STAGE 2 SNOMED Code(s): 38202157816751041 (2) Stage II pressure ulcer of right buttock Current Visit: Yes Status: Acute Code(s): L89.312 - PRESSURE ULCER OF RIGHT BUTTOCK, STAGE 2 SNOMED Code(s): 12763396504191771
[2021-09-27] MEDS ORDERED: cloNIDine HCL 0.1 MG TAB PO STA (13:29)
[2021-09-27 13:48] VITALS: BMI 53.4
--- NOTE | 2021-09-27 14:27 | P.PN ---
Subjective Progress Note Date: 09/27/21 Principal diagnosis: Shortness of breath 61-year-old male patient, who was transferred to the hospital on 09/09/2021 from the shelter where he was residing. The patient was sent [facility] for further rehabilitation as the patient had a prolonged hospitalization back in June 2021 that extended to July 2021. At that time, the patient had a very complicated course as the patient was intubated and placed on a mechanical ventilator on 06/25/2021. He presented to us hypothermic, had pneumonia and sepsis and complete opacification of the left lung. During the course of his illness, he Is negative for microbial growth and he also tested negative for COVID 19. He underwent bronchoscopy 2 on 06/27/2021 and 07/03/2021. His left lung gradually reexpanded. Post extubation, he was given BiPAP. He is known to have asthma, diabetes, hypertension, hyperlipidemia and obstructive sleep apnea and BPH. He was given aggressive chest PT, percussion, deep breathing and pulmonary toileting and based on his generalized weakness, he was sent for rehabilitation. During this current admission, the patient reports that he was not doing well. He does not get to the point where he was ambulatory. Obviously is a non-reliable historian. He states that he was not feeling well. He was feeling weak. He was not eating much. He did not like the food and his oral intake was quite diminished. He came into the ED with hypotension with a blood pressure of 70/50. The patient's potassium level initially was at 4.9 and the patient was in acute kidney injury. Subsequently, the potassium came up to 7.3. Various treatments done to improve the potassium and failed and ultimately, the patient got transferred to the ICU for hyperkalemia. He was given a dialysis catheter and he received a session of hemodialysis yesterday. This morning, his potassium level is down to 5.9. Creatinine is improving. Urine output is in order of 20-25 mL an hour. He has a dialysis catheter in his right groin. He has no signs of any respiratory distress. Chest x-rays unchanged and there is a stable atelectasis in left lung base. The patient remains about O2 and currently he is a 96% pulse ox. Most recent BP is 88/50 from this morning. He was noted to be tachycardic over the past 24 hours. Cardiac rhythm is sinus. White cell count is at low hemoglobin 15.7 and a platelet count of 195. Note. Indication of an underlying infection. The patient's UA was not showing any signs of infection. Blood cultures 2 were sent from admission are negative. He has stage II wounds. No significant cough sputum production. No wheezing. No altered mentation or headache or neck stiffness. In the ICU, give this patient a bolus of 1 L. I started him on IV Zosyn and IV. The ulcers. He is on Levemir insulin 16 units at bedtime along with a sliding scale coverage. On 09/13/2021 patient seen in follow-up in the intensive care unit. He is awake and alert, in no acute distress, he is resting comfortably in bed, denies any dyspnea. Room air pulse ox is 94%, patient is having hemodialysis treatment. He did wear CPAP support last night. Patient remains on empiric antibiotics with doxycycline and Zosyn. Patient continues to have low-grade fevers and a T- max in the last 24 hours was 101.6F at 8:00 in the morning yesterday. No cough, no chest discomfort, no hemoptysis. Hemodynamically stable, he is receiving IV fluids normal saline at a rate of 75 ML per hour. Breathing is nonlabored, comfortable. His chest x-ray on 09/11/2021 showed mild blunting of the left costophrenic angle, clear right lung. Today's labs have been reviewed with blood cell count is 7.6, hemoglobin is 11.3, platelet count is 194, sodium is 132, the rest of electrolytes were within normal limits, BUN is 47, creatinine is 3.22. Patient is not requiring any vasopressor support, echocardiogram has been completed showing moderate concentric LVH, EF of 55-60%, and severe enlargement of the right ventricle. On 09/14/2021 patient seen in follow-up on selective care unit, he is resting in bed, breathing comfortably, lung sounds are essentially clear to auscultation, no rhonchi no wheezing, denies any cough, no phlegm production or chest discomfort. She did wear his CPAP device at night. At the on room air pulse ox is 95%, he was dialyzed yesterday and 900 mL of fluid was removed with hemodialysis. No plans for hemodialysis today according to the patient. Today's labs have been reviewed, sodium is 135, the rest of electrolytes are within normal limits, BUN is 39, creatinine is 3.31. 4 sets of blood cultures have shown no growth thus far since admission. Unclear the source of possible infection, patient remains on antibiotics for empiric antibiotic coverage, as patient for pneumonia is low On 09/16/2021 patient seen in follow-up on medical surgical floor, he is resting in bed, does not appear to be in any acute distress, he is currently it is of oxygen, he is satting 96%, at night he is been wearing his CPAP device from home. Denies any worsening dyspnea, no complaints of chest discomfort, still has some mild generalized edema. Today's labs have been reviewed, white blood cell count is 8.9, hemoglobin is 11.7, sodium is 138, potassium is 4.2, chloride is 107, CO2 is 15, B1 is 35, creatinine is 4.09. Nephrology is following, and had hemodialysis treatment yesterday with removal 1.3 L of fluid. Appetite is fair, no nausea or vomiting, however patient is incontinent of liquid brown stool. Patient has had no fever or chills, his blood cultures have been negative, as of dyspnea or cough, no phlegm production, breathing comfortably, lung sounds are clear. His last chest x-ray was on 09/14/2021 grossly unremarkable lungs. On 09/17/2021 patient seen in follow-up in the recovery room. This morning patient was taken to surgery for cholecystectomy and he was found to have acute gangrenous cholecystitis with transmural necrosis of gallbladder wall. Following the procedure patient is still intubated and sedated in the recovery room, on assist control mode of ventilation with a rate of 12, tidal volume is 450, FiO2 of 100% and PEEP of 5. His peak air pressure is 28, plateau is 21, he is resting comfortably on a gurney in the recovery room, still sedated, Diprivan will be started, 0.9 normal saline at a rate of 75 ML per hour, his postoperative blood gas and chest x-ray are pending. This morning's labs have been reviewed, white blood cell count was 8.8, hemoglobin was 10.9, sodium is 136, potassium 3.8, BUN was 44, creatinine is 5.05, postoperative labs are pending. Patient continues on Zosyn for antibiotic coverage. Surgical incision is clean dry and intact, abdominal binder is in place, NG tube is in place to low intermittent suction. On 09/22/2021 patient seen in follow-up in intensive care unit. He is postoperative day #5 status post ectomy for acute gangrenous cholecystitis with transmural necrosis of the gallbladder wall. Patient remains intubated and sedated on assist control mode of ventilation with a rate of 12, tidal lung is 450, FiO2 of 30% and PEEP of 5, this morning's blood gas shows pO2 of 122, pCO2 of 39, and pH of 7.42 and this was done on the above-mentioned vent settings and FiO2 of 30%. Today's chest x-ray has been reviewed and left lower lobe atelectasis versus pneumonia and associated effusion. Patient required small amount of norepinephrine on and off through the night, it is currently weaned off. His blood pressure stable at 107/54. He is in sinus mechanism, slightly tachycardic with a rate of 1038 BPM, his 0.9 normal saline is a 60 ML per hour, Diprivan and is at 20 mics per kilo per minute. Sedation is currently on hold for possibility of spontaneous breathing trials. There has been no active bleeding overnight white blood cell count is improved and is down to 9.4, hemoglobin is 6.8, platelet count is 317, sodium is 140, potassium 3.6, chloride is 109, BUN is 22 creatinine is 2.93. Occult blood was positive on 09/19/2021. He did receive 2 units of pack red blood cells on 09/19/2021 and 1 unit of packed red blood cells yesterday on 09/21/2021. tube feedings are currently on hold for possibility of permacath dialysis port placement. CT of the abdomen and pelvis from yesterday was a suboptimal study and showed expected changes from cholecystectomy, percutaneous drainage catheter going through the gallbladder fossa and terminating in the midline anterior and superior to the gallbladder fossa. Ill-defined fluid and air at the level of the gallbladder f isa is nonspecific. There was soft tissue anasarca along with small bilateral pleural effusions and mild amount of intra-abdominal ascites, possibly related to fluid overload state. Patient has significant generalized edema, he isn't +1.5 L net fluid balance over the last 24 hours, overall is +27 kg in the last 7-10 days. Nephrology has been following. He is practically anuric, and the plan is to dialyze him today. In addition patient remains on antibiotics with Zosyn, 4 sets of blood cultures are negative. On 09/23/2021 patient is seen in follow-up in intensive care unit. Patient was s uccessfully weaned and extubated yesterday on 09/22/2021, he is awake and alert, he is oriented to person, a bit slow to respond, disoriented to place and time. Patient is breathing comfortably, he is on 4 L of oxygen pulse ox is 99%. Denies any shortness of breath, no cough. No tachypnea, no complaints of chest discomfort. Yesterday he had hemodialysis would removal of 2 L of fluid. Still quite generally fluid overloaded, his chest x-ray today shows interval extubation, worsening left lower lung opacity consistent with small left pleural effusion with associated left lower lung infiltrate. Today's labs have been reviewed, white blood cell count is 8.8, hemoglobin is 6.2 with no evidence of active bleeding, and platelet count was 289, sodium is 141, potassium 3.4, chloride is 113, when is 19, and creatinine is 2.93. Patient remains anuric. Physical incisions are clean dry and intact, minh are intact. Abdominal binder is in place, abdomen is nontender, patient had a bowel movement on Monday. He is thirsty and is asking for something to drink. We'll start him on clear liquids with surgical clearance this morning. Left subclavian triple lumen central line catheter insertion site is clean dry and intact, right groin hemodialysis catheter had been exchanged yesterday. Remains on Zosyn empirically, so far all blood cultures are negative. On 09/24/2021 patient seen in follow-up in intensive care units. He is awake and alert, oriented to person and place, coming comfortable, denies any acute distress, denies any difficulty breathing, room air pulse ox the 100%, he wore his CPAP device from home last night. Hemodynamically has remained stable, he is in sinus mechanism with a rate of 108, blood pressure is 151/99 this morning, recent was not dialyzed yesterday but he is having hemodialysis treatment today. The dose of IV Lasix 80 mg per nephrology this morning, today's chest x-ray showing hazy density on the left along with retrocardiac atelectasis and/or infiltrate. And improved aeration at the right base. Patient has been tolerating clear liquid diet, no nausea vomiting or diarrhea, no signs of active bleeding, yesterday she received a unit of blood hemoglobin of 6.4, today's hemoglobin is up to 7.3, his white blood cell count today is 9.4, platelet count is 309, sodium is 142, potassium is 3.7, chloride is 113, CO2 is 23, BUN is 24, creatinine is 3.63. His urine output has been 0 ML per hour for the most part, 40 mL this morning after the dose of Lasix. Overall he is in +981 mL net fluid balance over the last 24 hours, he does have moderate generalized edema, right groin temporary hemodialysis catheter is in place. Generally patient is quite weak. Physical therapy on consultation, patient has not been up out of bed yet On 09/27/2021 patient seen in follow-up on medical surgical floor. He is awake and alert, in no acute distress, he seems to be much more alert on today's exam, following commands, on room air breathing comfortably. Hasn't had a follow-up chest x-ray since 09/24/2021, which showed retrocardiac atelectasis on the left. Patient is being dialyzed today, yesterday he had the 2 L of fluid removed. Urine output is quite low. Patient is anuric. He remains on Zosyn for acute gangrenous cholecystitis. Patient has been afebrile. No other labs last couple of days. Generally he still swollen. But breathing comfortably. No abdominal pain. No nausea or vomiting, however his appetite has been poor. Objective - Vital Signs Vital signs: Vital Signs Temp 98.4 F 09/27/21 07:52 Pulse 110 H 09/27/21 09:26 Resp 18 09/27/21 07:52 BP 140/85 09/27/21 07:52 Pulse Ox 100 09/27/21 07:52 Intake & Output 09/26/21 09/27/21 09/27/21 18:59 06:59 18:59 Output Total 128 6 Balance -128 -6 Weight 159.4 kg Output: Drainage 28 6 Right Abdomen 28 6 Urine 100 Other: Voiding Method Indwelling Catheter Indwelling Catheter Indwelling Catheter # Bowel Movements 5 5 ABP, PAP, CO, CI - Last Documented Arterial Blood Pressure 131/60 - Exam GENERAL EXAM: Awake and alert 61-year-old white male, on room air with a pulse ox of 100 HEAD: Normocephalic/atraumatic. EYES: Normal reaction of pupils, equal size. Conjunctiva pink, sclera white. NOSE: Clear with pink turbinates. THROAT: No erythema or exudates. NECK: No masses, no JVD, no thyroid enlargement, no adenopathy. CHEST: No chest wall deformity. Symmetrical expansion. LUNGS: Equal air entry with no crackles, wheeze, rhonchi or dullness. CVS: Regular rate and rhythm, normal S1 and S2, no gallops, no murmurs, no rubs ABDOMEN: Soft, nontender. No hepatosplenomegaly, normal bowel sounds, no gua rding or rigidity. Abdominal incisions are clean dry and intact, covered with the abdominal binder, minh intact, GRETCHEN drain is in place with small amount of sanguinous output EXTREMITIES: No clubbing, severe generalized edema, no cyanosis, 2+ pulses and upper and lower extremities. MUSCULOSKELETAL: Muscle strength and tone normal. SPINE: No scoliosis or deformity SKIN: No rashes CENTRAL NERVOUS SYSTEM: Awake and alert, oriented times one. No focal deficits, tone is normal in all 4 extremities. - Labs CBC & Chem 7: 09/25/21 13:13 09/25/21 13:13 Labs: Abnormal Lab Results - Last 24 Hours (Table) 09/26/21 09/27/21 Range/Units 16:31 00:45 POC Glucose (mg/dL) 147 H 109 H (75-99) mg/dL Assessment and Plan Plan: Assessment: #1. Acute gangrenous cholecystitis with transmural necrosis of the gallbladder wall, status post open cholecystectomy on 09/17/2021. The GRETCHEN drain is putting out minimal amount of output in the surgical wound site is clean dry and intact, patient remains on IV Zosyn, completing a total of 2 week course #2. Routine postoperative ventilator management after open cholecystectomy on 09/17/2021, successfully weaned and extubated on 09/22/2021 #3. Acute kidney injury related to the above, and was initiated on hemodialysis #4. Acute on chronic anemia, occult stool positive, s/p transfusion with 4 units of blood, current Hgb is 7.2, possibly related to GI blood loss anemia and acute kidney injury #5. Non-anion gap metabolic acidosis, improved #6. Acute hyperkalemia, resolved with hemodialysis #7. Hypotension sinus tachycardia related to acute sepsis, currently improved #8. Morbid obesity with BMI 41.8 #9. History of acute hypoxic respiratory failure on the mechanical ventilator back in mid June 2021 with left lung collapse post bronchoscopy 2 #10. Bronchial asthma, chronic, unspecified #11. Diabetes note this type II #12. Hyperlipidemia #13. Hypertension #14. Obstructive sleep apnea on CPAP therapy #15. BPH #16. Diarrhea, negative C. diff #17. Severe general medical debility related to severe critical illness Plan: Patient is seen and evaluated along with Dr. Hawk at the bedside Breathing comfortably Maintaining stable O2 saturations on room air Surgical wound is clean dry and intact Patient continues on Zosyn Vital signs have been stable Undergoing hemodialysis again today Follow up labs including CBC and CMP tomorrow No fever or chills, Advance diet with surgical clearance as tolerated Continue monitoring for signs of bleeding Physical therapy evaluation and treatment I have personally seen and examined the patient, performed the documentation and the assessment and plan as written. Number of minutes spent on the visit: [10] Time with Patient: Less than 30
--- NOTE | 2021-09-27 15:28 | P.PN ---
Progress Note - Text Progress Note Date: 09/27/21 Chief Complaint: Tired This is a 61-year-old patient, follows with Dr. Seda Schneider. Chronic stable medical conditions include diabetes, , hyperlipidemia, obstructive sleep apnea uses CPAP, herniated disc / injections,. Patient was in the hospital from 06/26/2021 through July 16 Admitted with pneumonia, severe hypothermia, acute hypoxic respiratory failure, possible sepsis, possible acute congestive heart failure exacerbation. Was intubated. Was discharged on intermittent BiPAP. [place] to have possible viral pneumonitis. Was negative for COVID. Was discharged to rehab. At the rehab patient had a poor appetite. Not really able to walk. Patient was at zipper setter up as found a very low blood pressure. Admitted. Denies any fever and chills. Actually eating better here. Has been having daily bowel movements. Occasional diarrhea. Does feel tired and rundown. Admitted with severe hypotension, acute kidney injury, hypoglycemia. Diuretics were held. IV hydration. PTOT. September 11: Lasted patient abdominal pain. Abdominal x-ray unremarkable. Surgery consulted. Patient's is present. Appetite is actually getting better. Continue IV fluids. Renal function worsening. Start bicarbonate drip. Coughing up some yellow sputum. Add doxycycline for acute bronchitis. Check creatinine kinase. Rule out rhabdomyolysis. September 12: Patient potassium persisted to be high yesterday. In spite of having several medications. Moved to the ICU. Nephrology consulted. Dialysis catheter was placed and patient received hemodialysis late last night. Poor appetite. Tired. Seen by psychiatry. [place] to have adjustment disorder. September 13: ICU: Tired and sleepy. Barely eating. I reviewed medications. Patient on Neurontin in the setting of acute kidney injury this can cause the patient to be lethargic. Cut back on the dose. Dialysis today. About half a liter removed. IV Zosyn. September 14: Patient started on Marinol yesterday. Still appetite is poor. Pharyngeal hygiene not good. Discussed with the nurse to get it clean. Including saltwater gargle. Patient bit more awake after cutting back dose of Neurontin. On IV Zosyn. September 15: Patient not really eating. Neurontin cutback 200 mg daily at bedtime. Reminded nurse about pharyngeal tolerate. Not much urine output. IV fluids increased to 130 mL an hour. Hypoglycemic. DC Lantus. September 16: Patient does complain of feeling depressed. Not eating. Patient was reevaluated by psychiatry. [place] to be adjustment disorder. Patient does not have any pain in the lower extremity except on movement. cutback Requip. .25 mg daily at bedtime. It is cleared through the renal route. Getting a neurological evaluation. The unlikely will check patient's ammonia level. Also spoke to the about possible feeding tube. Given poor oral intake. Patient only eating a few bites here and there September 17: Patient taken to the OR. Dr. Renetta Santillan the patient's found to have a gangrenous gallbladder. GRETCHEN drain. Patient taken to the ICU postprocedure. On the ventilator. IV propofol. Spoke to patient's family including the at the bedside. September 23: ICU: I assumed care of patient today. He was extubated yesterday. On 2 L nasal cannula. Globin 6.4. 1 unit of blood ordered. Clear liquid diet. GRETCHEN drain in place. Draining serosanguineous. at the bedside. Weakness. Right femoral dialysis catheter. Patient getting DDAVP today. For hemodialysis tomorrow. September 24: ICU: Awake, communicating. Tired. Did tolerate liquid diet this morning. Diet is being advanced. Received a unit of blood yesterday. He'll globin up as 7.3. Remains oliguric. Hemodialysis today September 25: ate little bit of breakfast did not like hospital food. Told to increase limb movements while in bed. IV Zosyn. Tired. September 26: Barely eating. GRETCHEN drain. IV Zosyn. Upper extremities moving better. Minimal movements of lower extremity. Encourage oral intake. On hemodialysis September 27: Still eating small amounts. Not enough. Communicative and dietitian. Spoke to patient at length. Patient is agreeable to PEG tube feeding. If no improvement in next 24 hours we will order the same. Calorie diet ordered at bedside. Discussed with Dr. Hawk. On hemodialysis. Active Medications Acetaminophen (Acetaminophen Tab 325 Mg Tab) 650 mg PO Q6HR PRN PRN Reason: Mild Pain or Fever > 100.5 Last Admin: 09/12/21 20:09 Dose: 650 mg Documented by: Albuterol/Ipratropium (Ipratropium-Albuterol 3 Ml Neb) 3 ml INHALATION RT-QID [facility] Last Admin: 09/27/21 11:07 Dose: Not Given Documented by: Albuterol/Ipratropium (Ipratropium-Albuterol 3 Ml Neb) 3 ml INHALATION RT-Q2H PRN PRN Reason: Shortness Of Breath Or Wheezing Darbepoetin Arthur (Darbepoetin Arthur 40 Mcg/0.4 Ml Syringe) 40 mcg SQ Q7D [facility] Last Admin: 09/21/21 15:54 Dose: 40 mcg Documented by: Gabapentin (Gabapentin 100 Mg Cap) 100 mg PO HS [facility] Last Admin: 09/26/21 20:45 Dose: 100 mg Documented by: Hydromorphone HCl (Hydromorphone 1 Mg/Ml 1 Ml Syringe) 1 mg IVP Q3HR PRN PRN Reason: Pain Last Admin: 09/25/21 00:14 Dose: 1 mg Documented by: Piperacillin Sod/Tazobactam (Sod 3.375 gm/ Sodium Chloride) 100 mls @ 25 mls/hr IVPB Q12HR [facility]; Protocol Last Admin: 09/27/21 09:26 Dose: 25 mls/hr Documented by: Insulin Aspart (Insulin Aspart (Novolog) 100 Unit/Ml Vial) 0 unit SQ Q6HR [facility]; Protocol Last Admin: 09/27/21 12:28 Dose: Not Given Documented by: Metoprolol Tartrate (Metoprolol Tartrate 25 Mg Tab) 25 mg PO BID [facility] Last Admin: 09/27/21 09:26 Dose: 25 mg Documented by: Miscellaneous Information (Potassium Replacement Protocol 1 Each Misc) 1 each MISCELLANE DAILY PRN; Protocol PRN Reason: Per Protocol Naloxone HCl (Naloxone 0.4 Mg/Ml 1 Ml Vial) 0.2 mg IV Q2M PRN PRN Reason: Opioid Reversal Pantoprazole Sodium (Pantoprazole 40 Mg/10 Ml Vial) 40 mg IVP DAILY [facility] Last Admin: 09/27/21 09:26 Dose: 40 mg Documented by: Tamsulosin HCl (Tamsulosin 0.4 Mg Cap.Er.24h) 0.4 mg PO PC-SUPPER [facility] Last Admin: 09/26/21 18:10 Dose: 0.4 mg Documented by: Past medical history to include: COPD, asthma, diabetes, hypertension, hyperlipidemia, obstructive sleep apnea uses CPAP, herniated disc uses injections, pneumonia June 2021 patient intubated Social history: Alcohol occasionally. Occasional cigar. Marijuana occasionally. . At rehab Family history: Skin cancer, macular degeneration Physical examination: VITAL SIGNS: 98.4, 100, 18, 140/85, 100% room air GENERAL: laying in bed, awake, tired EYES: Pupils equal. Conjunctiva normal. HEENT: External appearance of nose and ears normal, oral cavity endotracheal tube NECK: JVD not raised; masses not palpable. HEART: First and second heart sounds are normal; edema. LUNGS: Respiratory rate increased; decreased breath sounds ABDOMEN: Soft, some tenderness, no guarding rigidity GRETCHEN drain, binder liver spleen not palpable, no masses palpable. PSYCH: Answering questions appropriately. Mood and affect a bit low MUSCULOSKELETAL:No Clubbing/cyanosis;muscles-grossly intact NEUROLOGICAL: Cranial nerves grossly intact; no facial asymmetry, able to elevate upper extremity partly. Only slight movement of the lower extremity. INVESTIGATIONS, reviewed in the clinical context: September 25: White count 9.1 hemoglobin 7.9 potassium 3.6 creatinine 2.33 September 24: White count 9.4 hemoglobin 7.3 potassium 3.7 BUN 24 creatinine 3.63 September 21: White count 9.60 globin 6.4 platelets 300 potassium 3.4 creatinine 2.93 September 17: White count 8.8 hemoglobin 10.9 platelets relevant potassium 3.8 BUN 44 creatinine 5.05 September 16: White count 8.9 hemoglobin 11.7 potassium 4.2 BUN 35 creatinine 4.09 September 14: Sodium 135 BUN 39 creatinine 3.31. Blood glucose 64 September 13: White count 7.6 hemoglobin 10.3 platelets 1944.9 BUN 47 creatinine 3.2 to September 12: White count 12.1-year-old and 30.7 sodium 134 potassium 5.9 BUN 38 creatinine 2.76 September 11: Sodium 131 potassium 7.2 BUN 48 creatinine 3.73 White count 6.8 hemoglobin 13.8 platelets 244 sodium 136 potassium 4.9 BUN 40 creatinine 3.41. EKG tracing personally reviewed by me-sinus rhythm, right bundle branch block. Some T waves abnormalities Chest x-ray film personally reviewed by me-possible chronic changes Blood Glucose 36 Assessment and plan: -Severe hypotension, from acute kidney injury from decreased oral intake: Better -Acute metabolic encephalopathy : Better Seen by Neurology -Chronic congestive heart failure. From diastolic dysfunction EF 55-60%: Hold diuretics for now -Acute kidney injury ATN from hypotension: On renal replacement therapy on hemodialysis -Acute metabolic acidosis from worsening renal failure: Better bicarbonate drip-discontinued. Oral bicarbonate -Acute severe hyperkalemia from metabolic acidosis: Better -Sinus tachycardia likely from sepsis -Anorexia multifactorial: Supple improvement Did not respond to Marinol. Advance diet as tolerated -Gangrenous cholecystitis followed by cholecystectomy. IV Zosyn. Cholecystectomy on September [address] Jackson -Sepsis. Secondary to gangrenous cholecystitis Zosyn. 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 -Obesity BMI 51.4 -Adjustment disorder Seen by psychiatry. No medications. -Essential hypertension,: uncontrolled Increase Lopressor 50 mg twice a day -Restless leg syndrome Requip .25 mg daily at bedtime -Diabetes mellitus type 2 on oral hypoglycemic, uncontrolled with hypoglycemia: Slow to respond Hold of oral hypoglycemic. Follow Accu-Cheks. -Hyperlipidemia Hold off Zocor because of muscle weakness -BPH Flomax 0.4 mg daily -COPD Advair 250/50 one puff twice a day [currently held]. DuoNeb 4 times a day -Chronic medical debility from recent protracted hospitalization PTOT -Full code IV Zosyn. GRETCHEN drain. Change Protonix to by mouth Pepcid. Increase Lopressor to 50 mg twice a day. Discussed with dietitian, pulmonary, given a headsup to surgery. Calorie chart at bedside
[2021-09-27 16:42] LABS: Glucose,Whole Blood 133 mg/dL (75-99)
[2021-09-27] MEDS: TAMSULOSIN 0.4 MG CAP.ER.24H PO SCH (17:21)
[2021-09-27] MEDS: FAMOTIDINE 20 MG TAB PO SCH (21:18)
[2021-09-27] MEDS: METOPROLOL TARTRATE 50 MG TAB PO SCH ×2 (21:18→21:24)
[2021-09-27] MEDS: GABAPENTIN 100 MG CAP PO SCH (21:18)
[2021-09-28 01:19] LABS: Glucose,Whole Blood 124 mg/dL (75-99)
[2021-09-28] MEDS: INSULIN ASPART (NovoLOG) 100 UNIT/ML VIAL SQ SCH ×4 (01:22→18:38)
[2021-09-28 06:20] LABS: Glucose,Whole Blood 120 mg/dL (75-99)
[2021-09-28] MEDS: IPRATROPIUM-ALBUTEROL 3 ML NEB INHALATION SCH ×4 (07:13→19:58)
--- NOTE | 2021-09-28 10:00 | P.PN ---
Subjective Progress Note Date: 09/28/21 Principal diagnosis: Shortness of breath 61-year-old male patient, who was transferred to the hospital on 09/09/2021 from [facility] where he [facility]. The patient was sent to medical [place] for further rehabilitation as the patient had a prolonged hospitalization back in June 2021 that extended to July 2021. At that time, the patient had a very complicated course as the patient was intubated and placed on a mechanical ventilator on 06/25/2021. He presented to us hypothermic, had pneumonia and sepsis and complete opacification of the left lung. During the course of his illness, he Is negative for microbial growth and he also tested negative for COVID 19. He underwent bronchoscopy 2 on 06/27/2021 and 07/03/2021. His left lung gradually reexpanded. Post extubation, he was given BiPAP. He is known to have asthma, diabetes, hypertension, hyperlipidemia and obstructive sleep apnea and BPH. He was given aggressive chest PT, percussion, deep breathing and pulmonary toileting and based on his generalized weakness, he was sent for rehabilitation. During this current admission, the patient reports that he was not doing well. He does not get to the point where he was ambulatory. Obviously is a non-reliable historian. He states that he was not feeling well. He was feeling weak. He was not eating much. He did not like the food and his oral intake was quite diminished. He came into the ED with hypotension with a blood pressure of 70/50. The patient's potassium level initially was at 4.9 and the patient was in acute kidney injury. Subsequently, the potassium came up to 7.3. Various treatments done to improve the potassium and failed and ultimately, the patient got transferred to the ICU for hyperkalemia. He was given a dialysis catheter and he received a session of hemodialysis yesterday. This morning, his potassium level is down to 5.9. Creatinine is improving. Urine output is in order of 20-25 mL an hour. He has a dialysis catheter in his right groin. He has no signs of any respiratory distress. Chest x-rays unchanged and there is a stable atelectasis in left lung base. The patient remains about O2 and currently he is a 96% pulse ox. Most recent BP is 88/50 from this morning. He was noted to be tachycardic over the past 24 hours. Cardiac rhythm is sinus. White cell count is at low hemoglobin 15.7 and a platelet count of 195. Note. Indication of an underlying infection. The patient's UA was not showing any signs of infection. Blood cultures 2 were sent from admission are negative. He has stage II wounds. No significant cough sputum production. No wheezing. No altered mentation or headache or neck stiffness. In the ICU, give this patient a bolus of 1 L. I started him on IV Zosyn and IV. The ulcers. He is on Levemir insulin 16 units at bedtime along with a sliding scale coverage. On 09/13/2021 patient seen in follow-up in the intensive care unit. He is awake and alert, in no acute distress, he is resting comfortably in bed, denies any dyspnea. Room air pulse ox is 94%, patient is having hemodialysis treatment. He did wear CPAP support last night. Patient remains on empiric antibiotics with doxycycline and Zosyn. Patient continues to have low-grade fevers and a T- max in the last 24 hours was 101.6F at 8:00 in the morning yesterday. No cough, no chest discomfort, no hemoptysis. Hemodynamically stable, he is receiving IV fluids normal saline at a rate of 75 ML per hour. Breathing is nonlabored, comfortable. His chest x-ray on 09/11/2021 showed mild blunting of the left costophrenic angle, clear right lung. Today's labs have been reviewed with blood cell count is 7.6, hemoglobin is 11.3, platelet count is 194, sodium is 132, the rest of electrolytes were within normal limits, BUN is 47, creatinine is 3.22. Patient is not requiring any vasopressor support, echocardiogram has been completed showing moderate concentric LVH, EF of 55-60%, and severe enlargement of the right ventricle. On 09/14/2021 patient seen in follow-up on selective care unit, he is resting in bed, breathing comfortably, lung sounds are essentially clear to auscultation, no rhonchi no wheezing, denies any cough, no phlegm production or chest discomfort. She did wear his CPAP device at night. At the on room air pulse ox is 95%, he was dialyzed yesterday and 900 mL of fluid was removed with hemodialysis. No plans for hemodialysis today according to the patient. Today's labs have been reviewed, sodium is 135, the rest of electrolytes are within normal limits, BUN is 39, creatinine is 3.31. 4 sets of blood cultures have shown no growth thus far since admission. Unclear the source of possible infection, patient remains on antibiotics for empiric antibiotic coverage, as patient for pneumonia is low On 09/16/2021 patient seen in follow-up on medical surgical floor, he is resting in bed, does not appear to be in any acute distress, he is currently it is of oxygen, he is satting 96%, at night he is been wearing his CPAP device from home. Denies any worsening dyspnea, no complaints of chest discomfort, still has some mild generalized edema. Today's labs have been reviewed, white blood cell count is 8.9, hemoglobin is 11.7, sodium is 138, potassium is 4.2, chloride is 107, CO2 is 15, B1 is 35, creatinine is 4.09. Nephrology is following, and had hemodialysis treatment yesterday with removal 1.3 L of fluid. Appetite is fair, no nausea or vomiting, however patient is incontinent of liquid brown stool. Patient has had no fever or chills, his blood cultures have been negative, as of dyspnea or cough, no phlegm production, breathing comfortably, lung sounds are clear. His last chest x-ray was on 09/14/2021 grossly unremarkable lungs. On 09/17/2021 patient seen in follow-up in the recovery room. This morning patient was taken to surgery for cholecystectomy and he was found to have acute gangrenous cholecystitis with transmural necrosis of gallbladder wall. Following the procedure patient is still intubated and sedated in the recovery room, on assist control mode of ventilation with a rate of 12, tidal volume is 450, FiO2 of 100% and PEEP of 5. His peak air pressure is 28, plateau is 21, he is resting comfortably on a gurney in the recovery room, still sedated, Diprivan will be started, 0.9 normal saline at a rate of 75 ML per hour, his postoperative blood gas and chest x-ray are pending. This morning's labs have been reviewed, white blood cell count was 8.8, hemoglobin was 10.9, sodium is 136, potassium 3.8, BUN was 44, creatinine is 5.05, postoperative labs are pending. Patient continues on Zosyn for antibiotic coverage. Surgical incision is clean dry and intact, abdominal binder is in place, NG tube is in place to low intermittent suction. On 09/22/2021 patient seen in follow-up in intensive care unit. He is postoperative day #5 status post ectomy for acute gangrenous cholecystitis with transmural necrosis of the gallbladder wall. Patient remains intubated and sedated on assist control mode of ventilation with a rate of 12, tidal lung is 450, FiO2 of 30% and PEEP of 5, this morning's blood gas shows pO2 of 122, pCO2 of 39, and pH of 7.42 and this was done on the above-mentioned vent settings and FiO2 of 30%. Today's chest x-ray has been reviewed and left lower lobe atelectasis versus pneumonia and associated effusion. Patient required small amount of norepinephrine on and off through the night, it is currently weaned off. His blood pressure stable at 107/54. He is in sinus mechanism, slightly tachycardic with a rate of 1038 BPM, his 0.9 normal saline is a 60 ML per hour, Diprivan and is at 20 mics per kilo per minute. Sedation is currently on hold for possibility of spontaneous breathing trials. There has been no active bleeding overnight white blood cell count is improved and is down to 9.4, hemoglobin is 6.8, platelet count is 317, sodium is 140, potassium 3.6, chloride is 109, BUN is 22 creatinine is 2.93. Occult blood was positive on 09/19/2021. He did receive 2 units of pack red blood cells on 09/19/2021 and 1 unit of packed red blood cells yesterday on 09/21/2021. tube feedings are currently on hold for possibility of permacath dialysis port placement. CT of the abdomen and pelvis from yesterday was a suboptimal study and showed expected changes from cholecystectomy, percutaneous drainage catheter going through the gallbladder fossa and terminating in the midline anterior and superior to the gallbladder fossa. Ill-defined fluid and air at the level of the gallbladder f isa is nonspecific. There was soft tissue anasarca along with small bilateral pleural effusions and mild amount of intra-abdominal ascites, possibly related to fluid overload state. Patient has significant generalized edema, he isn't +1.5 L net fluid balance over the last 24 hours, overall is +27 kg in the last 7-10 days. Nephrology has been following. He is practically anuric, and the plan is to dialyze him today. In addition patient remains on antibiotics with Zosyn, 4 sets of blood cultures are negative. On 09/23/2021 patient is seen in follow-up in intensive care unit. Patient was s uccessfully weaned and extubated yesterday on 09/22/2021, he is awake and alert, he is oriented to person, a bit slow to respond, disoriented to place and time. Patient is breathing comfortably, he is on 4 L of oxygen pulse ox is 99%. Denies any shortness of breath, no cough. No tachypnea, no complaints of chest discomfort. Yesterday he had hemodialysis would removal of 2 L of fluid. Still quite generally fluid overloaded, his chest x-ray today shows interval extubation, worsening left lower lung opacity consistent with small left pleural effusion with associated left lower lung infiltrate. Today's labs have been reviewed, white blood cell count is 8.8, hemoglobin is 6.2 with no evidence of active bleeding, and platelet count was 289, sodium is 141, potassium 3.4, chloride is 113, when is 19, and creatinine is 2.93. Patient remains anuric. Physical incisions are clean dry and intact, minh are intact. Abdominal binder is in place, abdomen is nontender, patient had a bowel movement on Monday. He is thirsty and is asking for something to drink. We'll start him on clear liquids with surgical clearance this morning. Left subclavian triple lumen central line catheter insertion site is clean dry and intact, right groin hemodialysis catheter had been exchanged yesterday. Remains on Zosyn empirically, so far all blood cultures are negative. On 09/24/2021 patient seen in follow-up in intensive care units. He is awake and alert, oriented to person and place, coming comfortable, denies any acute distress, denies any difficulty breathing, room air pulse ox the 100%, he wore his CPAP device from home last night. Hemodynamically has remained stable, he is in sinus mechanism with a rate of 108, blood pressure is 151/99 this morning, recent was not dialyzed yesterday but he is having hemodialysis treatment today. The dose of IV Lasix 80 mg per nephrology this morning, today's chest x-ray showing hazy density on the left along with retrocardiac atelectasis and/or infiltrate. And improved aeration at the right base. Patient has been tolerating clear liquid diet, no nausea vomiting or diarrhea, no signs of active bleeding, yesterday she received a unit of blood hemoglobin of 6.4, today's hemoglobin is up to 7.3, his white blood cell count today is 9.4, platelet count is 309, sodium is 142, potassium is 3.7, chloride is 113, CO2 is 23, BUN is 24, creatinine is 3.63. His urine output has been 0 ML per hour for the most part, 40 mL this morning after the dose of Lasix. Overall he is in +981 mL net fluid balance over the last 24 hours, he does have moderate generalized edema, right groin temporary hemodialysis catheter is in place. Generally patient is quite weak. Physical therapy on consultation, patient has not been up out of bed yet On 09/27/2021 patient seen in follow-up on medical surgical floor. He is awake and alert, in no acute distress, he seems to be much more alert on today's exam, following commands, on room air breathing comfortably. Hasn't had a follow-up chest x-ray since 09/24/2021, which showed retrocardiac atelectasis on the left. Patient is being dialyzed today, yesterday he had the 2 L of fluid removed. Urine output is quite low. Patient is anuric. He remains on Zosyn for acute gangrenous cholecystitis. Patient has been afebrile. No other labs last couple of days. Generally he still swollen. But breathing comfortably. No abdominal pain. No nausea or vomiting, however his appetite has been poor. On 09/28/2021 patient seen in follow-up on medical surgical floor. He is resting comfortably in bed, room air pulse ox is 97%. He is awake and alert, oriented 3, denies any dyspnea, no cough, no chest discomfort. Afebrile, hemodynamically has been stable. Yesterday he had hemodialysis session and 2.5 L of fluid was removed. He continues on Zosyn for gangrenous cholecystitis. No fever or chills. No abdominal pain, is passing bowel movements, surgical incisions are clean dry and intact. Right groin temporary dialysis catheter remains in place. Patient is going for a permacath insertion today. Generalized edema seems to be improving. Objective - Vital Signs Vital signs: Vital Signs Temp 98.6 F 09/28/21 07:18 Pulse 100 09/28/21 07:28 Resp 18 09/28/21 07:18 BP 113/69 09/28/21 07:18 Pulse Ox 97 09/28/21 07:18 Intake & Output 09/27/21 09/28/21 09/28/21 18:59 06:59 18:59 Output Total 2609 900 Balance -2609 -900 Weight 159.4 kg Output: Drainage 9 Right Abdomen 9 Urine 100 900 Hemodialysis 2500 Other: Voiding Method Indwelling Catheter Indwelling Catheter Indwelling Catheter # Voids 0 # Bowel Movements 1 ABP, PAP, CO, CI - Last Documented Arterial Blood Pressure 131/60 - Exam GENERAL EXAM: Awake and alert 61-year-old white male, on room air with a pulse ox of 97 HEAD: Normocephalic/atraumatic. EYES: Normal reaction of pupils, equal size. Conjunctiva pink, sclera white. NOSE: Clear with pink turbinates. THROAT: No erythema or exudates. NECK: No masses, no JVD, no thyroid enlargement, no adenopathy. CHEST: No chest wall deformity. Symmetrical expansion. LUNGS: Equal air entry with no crackles, wheeze, rhonchi or dullness. CVS: Regular rate and rhythm, normal S1 and S2, no gallops, no murmurs, no rubs ABDOMEN: Soft, nontender. No hepatosplenomegaly, normal bowel sounds, no guarding or rigidity. Abdominal incisions are clean dry and intact, covered with the abdominal binder, incisions are clean dry and intact, GRETCHEN drain has been removed. Right groin temporary hemodialysis catheter in place EXTREMITIES: No clubbing, severe generalized edema, no cyanosis, 2+ pulses and upper and lower extremities. MUSCULOSKELETAL: Muscle strength and tone normal. SPINE: No scoliosis or deformity SKIN: No rashes CENTRAL NERVOUS SYSTEM: Awake and alert, oriented times one. No focal deficits, tone is normal in all 4 extremities. - Labs CBC & Chem 7: 09/25/21 13:13 09/25/21 13:13 Labs: Abnormal Lab Results - Last 24 Hours (Table) 09/27/21 09/28/21 09/28/21 Range/Units 16:40 01:16 06:18 POC Glucose (mg/dL) 133 H 124 H 120 H (75-99) mg/dL Assessment and Plan Plan: Assessment: #1. Acute gangrenous cholecystitis with transmural necrosis of the gallbladder wall, status post open cholecystectomy on 09/17/2021. The GRETCHEN drain is putting out minimal amount of output in the surgical wound site is clean dry and intact, patient remains on IV Zosyn, completing a total of 2 week course #2. Routine postoperative ventilator management after open cholecystectomy on 09/17/2021, successfully weaned and extubated on 09/22/2021 #3. Acute kidney injury related to the above, and was initiated on hemodialysis #4. Acute on chronic anemia, occult stool positive, s/p transfusion with 4 units of blood, current Hgb is 7.2, possibly related to GI blood loss anemia and acute kidney injury #5. Non-anion gap metabolic acidosis, improved #6. Acute hyperkalemia, resolved with hemodialysis #7. Hypotension sinus tachycardia related to acute sepsis, currently improved #8. Morbid obesity with BMI 41.8 #9. History of acute hypoxic respiratory failure on the mechanical ventilator back in mid June 2021 with left lung collapse post bronchoscopy 2 #10. Bronchial asthma, chronic, unspecified #11. Diabetes note this type II #12. Hyperlipidemia #13. Hypertension #14. Obstructive sleep apnea on CPAP therapy #15. BPH #16. Diarrhea, negative C. diff #17. Severe general medical debility related to severe critical illness Plan: Breathing comfortably Maintaining stable O2 saturations on room air Continues on Zosyn to complete a total of 2 week course Vital signs have been stable, patient has been afebrile His been wearing his CPAP unit at night, he is on room air during the day Breathing comfortably, He is going for permacath today We'll order follow-up blood work including CBC and BMP Physical therapy evaluation and treatment I have personally seen and examined the patient, performed the documentation and the assessment and plan as written. Number of minutes spent on the visit: [10] Time with Patient: Less than 30
--- NOTE | 2021-09-28 10:08 | P.PN ---
Subjective Progress Note Date: 09/27/21 Patient was seen for a follow-up. Patient underwent laparoscopic cholecystectomy. He required open cholecystectomy. Patient is extubated. He was seen in room 455 bed 1. Patient continues to have weakness of the lower extremities. Upper extremities have improved. Offers no other complaints. Objective - Vital Signs Vital signs: Vital Signs Temp 98.6 F 09/28/21 07:18 Pulse 100 09/28/21 07:28 Resp 18 09/28/21 07:18 BP 113/69 09/28/21 07:18 Pulse Ox 97 09/28/21 07:18 Intake & Output 09/27/21 09/28/21 09/28/21 18:59 06:59 18:59 Output Total 2609 900 Balance -2609 -900 Weight 159.4 kg Output: Drainage 9 Right Abdomen 9 Urine 100 900 Hemodialysis 2500 Other: Voiding Method Indwelling Catheter Indwelling Catheter Indwelling Catheter # Voids 0 # Bowel Movements 1 ABP, PAP, CO, CI - Last Documented Arterial Blood Pressure 131/60 - Exam Patient is alert and awake. Speech and language functions are normal. Cranial nerves normal. 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 Lower extremities are extremely weak bilaterally. Reflexes are present only of the biceps, 1+ on the right, trace on the left. Absent in the brachioradialis, knees and ankles bilaterally. Positive peripheral edema. Abdomen is soft. - Labs CBC & Chem 7: 09/25/21 13:13 09/25/21 13:13 Labs: Abnormal Lab Results - Last 24 Hours (Table) 09/27/21 09/28/21 09/28/21 Range/Units 16:40 01:16 06:18 POC Glucose (mg/dL) 133 H 124 H 120 H (75-99) mg/dL Assessment and Plan Assessment: * Altered mental status, most likely due to toxic metabolic encephalopathy, much improved. * Acute kidney injury, started on dialysis on 09/11/2021, still on dialysis. * Recent history of hypotension leading to acute kidney injury * Status post cholecystectomy. * Generalized weakness most likely related to critical illness neuropathy/myopathy. * Anemia * Morbid obesity, BMI 41.8 * History of respiratory failure on mechanical ventilator. * Diabetes type 2 * Hyperlipidemia * Hypertension * COPD Plan: * CT head showed no acute process. There is improvement in the ethmoid and sphenoid sinusitis compared to old exam. There is bilateral chronic mastoiditis similar to old exam. There is significant clearing of the opacification of the middle ear cavity compared to the last exam. I personally reviewed computed tomography scan of the head and agree with the findings. Slight prominence of the ventricles as compared to the amount of cortical atrophy. * Treatment of medical conditions as per IM and other specialties * Thiamine 90 (38-122), B6 9(5-50). * Nephrology following closely. * Avoid any sedatives, hypnotics or narcotics. * Patient on SCDs for DVT prophylaxis.
[2021-09-28] MEDS: METOPROLOL TARTRATE 50 MG TAB PO SCH ×2 (10:19→20:11)
[2021-09-28] MEDS: PIPERACILLIN-TAZOBACTAM 3.375 GM in SODIUM CHLORIDE 0.9% 100 ML IVPB SCH ×2 (10:19→21:31)
[2021-09-28] MEDS: DARBEPOETIN ALFA 40 MCG/0.4 ML SYRINGE SQ SCH (11:07)
--- NOTE | 2021-09-28 11:28 | P.PN ---
Subjective Patient is seen for follow-up for acute kidney injury and hyperkalemia. He was significantly hypotensive on initial admission. Serum creatinine had peaked at 3.7 mg/dL but due to the potassium staying elevated at 7.3 patient was dialyzed . Urine output had improved and dialysis was held to monitor for possible recovery of renal function but urine output remained low and therefore patient has been maintained on dialysis. Patient was taken to OR on 09/17/21 and had open cholecystectomy. He was found to have acute gangrenous cholecystitis and necrosis of the gallbladder wall. Postoperatively patient has been transferred to the ICU. He remains intubated. Poor urine output Patient is seen on telemetry floor. He has been transferred out of the ICU.. Patient remains hemodialysis dependent with poor urine output. Blood pressure is improved and he is off of pressors. Extubated on 09/22/2021 Urine output remains poor. Overall patient is feeling much better . Status post 2.5 L of ultrafiltration yesterday on 09/27/2021 Objective - Vital Signs Vital signs: Vital Signs Temp 98.6 F 09/28/21 07:18 Pulse 104 H 09/28/21 11:11 Resp 18 09/28/21 07:18 BP 113/69 09/28/21 07:18 Pulse Ox 97 09/28/21 07:18 Intake & Output 09/27/21 09/28/21 09/28/21 18:59 06:59 18:59 Output Total 2609 900 Balance -2609 -900 Weight 159.4 kg Output: Drainage 9 Right Abdomen 9 Urine 100 900 Hemodialysis 2500 Other: Voiding Method Indwelling Catheter Indwelling Catheter Indwelling Catheter # Voids 0 # Bowel Movements 1 ABP, PAP, CO, CI - Last Documented Arterial Blood Pressure 131/60 - Exam Patient is awake comfortable. He is not in any acute distress Examination of the heart S1 and S2 Examination lungs bilateral breath sounds are heard Abdomen is soft nontender obese Examination lower extremities shows chronic skin changes, 2+ edema noted. 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 Hyperkalemia associated with acute kidney injury use of JENSEN inhibitor's prior to admission currently improved. 2. Acute kidney injury secondary to ATN from hypotension previous creatinine 0.7 on 08/10/2021. Started dialysis on 09/12/2021 for severe hyperkalemia. Urine output is poor postoperatively and patient remains hemodialysis dependent 3. Metabolic acidosis associated with acute kidney injury and recent shock and hypotension. Resolved 4. Acute cholecystitis with gangrenous bladder status post open cholecystectomy on 09/17/2021 5. Acute hypoxic respiratory failure, status post extubation on 09/22/2021, continuing to improve 6. Volume overload slowly improving with dialysis Plan: Hemodialysis in a.m. Check labs in a.m.
[2021-09-28 11:39] LABS: Glucose,Whole Blood 96 mg/dL (75-99)
[2021-09-28 12:07] LABS: African American GFR (CKD) 21 (>60 ml/min/1.73 sqM); Anion Gap 4 mmol/L; Blood Urea Nitrogen 19 mg/dL (9-20); Calcium 7.5 mg/dL (8.4-10.2); Carbon Dioxide 23 mmol/L (22-30); Chloride 111 mmol/L (98-107); Glucose 95 mg/dL (74-99); Non-African American GFR(CKD) 18 (>60 ml/min/1.73 sqM); Potassium 4.1 mmol/L (3.5-5.1); Sodium 138 mmol/L (137-145)
--- NOTE | 2021-09-28 12:38 | CDI ---
Yes wound present on admission. Documentation Clarification Form Date: 09/28/2021 12:25:39 PM From: Neha VelazquezRedANTHONY, CCDS Phone: [phone] Admit Date: 09/09/2021 07:33:00 PM Patient Name: Zenon Marquez Visit Number: [id number] Discharge Date: ATTENTION: The Clinical Documentation Specialists (CDI) and [facility] Coding Staff appreciate your assistance in clarifying documentation. Please respond to the clarification below the line at the bottom and electronically sign. The CDI & [facility] Coding staff will review the response and follow-up if needed. Please note: Queries are made part of the Legal Health Record. If you have any questions, please contact the author of this message via ITS. Dr. Ethan Centeno: Stage II wounds are documented beginning in the 09/12 Pulmonary Consult without further specificity. Ulcers without further specificity is documented beginning in the 09/12 Pulmonary Consult and in subsequent Progress Notes. Per the 09/27 Wound Care Consult: Stage II Pressure Ulcer Left & Right Buttocks For each diagnosis, documentation must be clear to determine if the condition was present at the time of the patients inpatient admission or developed during the hospital stay. Additional clarification regarding the pressure ulcers is requested. History/Risk Factors per the 09/10 History & Physical: Diabetes, Hyperlipidemia, MEREDITH, COPD, Asthma, Pneumonia. Clinical Indicators: Presented to the ED on 09/09 via EMS with Syncope & Low BP. Admit with Dehydration, HAMIDA & Hypotension Per the Nursing Wound Assessment, 09/25: Stage II Wound bed with granulation tissue. Treatment per Wound Care Consult 09/27: Honey gel border foam q2 hrs, Advanced wound care & debridement. Please clarify if the Stage II pressure ulcers on left & right buttocks were POA: [ ] Y = Yes, the condition was present at the time of the order for inpatient admission. [ ] N = No, the condition was not present at the time of the order for inpatient admission. [ ] W = Clinically undetermined if the condition was present at the time of the order for inpatient admission. (Template Last Revised: September 2020) MTDD
[2021-09-28 12:43] LABS: Anisocytosis Slight; HCT 25.8 % (39.0-53.0); HGB 8.3 gm/dL (13.0-17.5); Hypochromasia Moderate; MCHC 32.4 g/dL (31.0-37.0); MCV 92.7 fL (80.0-100.0); Platelet Count 330 k/uL (150-450); Poikilocytosis Slight; RBC 2.78 m/uL (4.30-5.90); RDW 18.4 % (11.5-15.5); WBC 8.1 k/uL (3.8-10.6)
--- NOTE | 2021-09-28 12:57 | P.PN ---
Subjective Progress Note Date: 09/28/21 CHIEF COMPLAINT: Abdominal pain HISTORY OF PRESENT ILLNESS: Patient is on regular medical floor. He is s cheduled for permacath placement for his hemodialysis today. He reports minimal abdominal pain. He is having bowel movements. Denies any nausea or vomiting. Patient reports that he is eating about half of his meals that his family brings in. He is undergoing a calorie count. Surgical service has been requested to evaluate patient for a possible PEG tube placement. GRETCHEN drain discontinued yest erday. Afebrile. WBC 8.1 hemoglobin 8.3 platelets 3:30 sodium 138 potassium 4.1 creatinine 3.44 PHYSICAL EXAM: VITAL SIGNS: Reviewed. GENERAL: No acute distress HEENT: Moist buccal mucosa. Head is atraumatic, normocephalic. ABDOMEN: Soft. Nondistended. His incision clean dry and intact. GRETCHEN drain with serosanguineous output. ASSESSMENT: 1. Acute gangrenous cholecystitis status post open cholecystectomy. Postop day #9 2. Acute kidney injury requiring hemodialysis 3. Anemia PLAN: -Patient undergoing calorie count. At this time patient is declining PEG tube placement. -Continue supportive care -Continue antibiotics Physician Broker In Charge note has been reviewed by physician. Signing provider agrees with the documented findings, assessment, and plan of care. Objective - Vital Signs Vital signs: Vital Signs Temp 98.6 F 09/28/21 12:07 Pulse 97 09/28/21 12:07 Resp 18 09/28/21 12:07 BP 113/69 09/28/21 07:18 Pulse Ox 97 09/28/21 12:07 Intake & Output 09/27/21 09/28/21 09/28/21 18:59 06:59 18:59 Output Total 2609 900 Balance -2609 -900 Weight 159.4 kg 159.4 kg Output: Drainage 9 Right Abdomen 9 Urine 100 900 Hemodialysis 2500 Other: Voiding Method Indwelling Catheter Indwelling Catheter Indwelling Catheter # Voids 0 # Bowel Movements 1 ABP, PAP, CO, CI - Last Documented Arterial Blood Pressure 131/60 - Labs CBC & Chem 7: 09/28/21 11:35 09/28/21 11:35 Labs: Abnormal Lab Results - Last 24 Hours (Table) 09/27/21 09/28/21 09/28/21 Range/Units 16:40 01:16 06:18 RBC (4.30-5.90) m/uL Hgb (13.0-17.5) gm/dL Hct (39.0-53.0) % RDW (11.5-15.5) % Chloride (98-107) mmol/L Creatinine (0.66-1.25) mg/dL POC Glucose (mg/dL) 133 H 124 H 120 H (75-99) mg/dL Calcium (8.4-10.2) mg/dL 09/28/21 09/28/21 Range/Units 11:35 11:35 RBC 2.78 L (4.30-5.90) m/uL Hgb 8.3 L (13.0-17.5) gm/dL Hct 25.8 L (39.0-53.0) % RDW 18.4 H (11.5-15.5) % Chloride 111 H (98-107) mmol/L Creatinine 3.44 H (0.66-1.25) mg/dL POC Glucose (mg/dL) (75-99) mg/dL Calcium 7.5 L (8.4-10.2) mg/dL
[2021-09-28 13:39] LABS: Band Neutrophils % 2 %; Basophils # (M) 0.08 k/uL (0-0.2); Eosinophils # (M) 0.41 k/uL (0-0.7); Metamyelocytes # (M) 0.08 k/uL (0); Metamyelocytes % 1 %; Monocytes # (M) 0.89 k/uL (0-1.0); Myelocytes # (M) 0.16 k/uL (0); Myelocytes % 2 %; Neutrophils % (M) 65 %; Nucleated Red Blood Cells 0 /100 WBC (0-0); Total Cells Counted 200
[2021-09-28] MEDS ORDERED: LIDOCAINE 1% INJ 10MG/ML (20 ML MDV) ONE ×2 (14:11→14:33)
[2021-09-28] MEDS ORDERED: HEPARIN SODIUM 1,000 UN/ML (10ML VL) ONE (14:12)
[2021-09-28] MEDS ORDERED: LIDOCAINE 1% INJ 10MG/ML (20 ML MDV) SQ ONE ×2 (14:17)
--- NOTE | 2021-09-28 15:28 | IR ---
EXAMINATION TYPE: IR cvc insert non tunneled DATE OF EXAM: 09/28/2021 COMPARISON: NONE HISTORY: Fluoroscopy time. Fluoroscopy was provided to the referring clinician.
--- NOTE | 2021-09-28 15:38 | P.PN ---
Progress Note - Text Progress Note Date: 09/28/21 Chief Complaint: Tired This is a 61-year-old patient, follows with Dr. Seda Schneider. Chronic stable medical conditions include diabetes, , hyperlipidemia, obstructive sleep apnea uses CPAP, herniated disc / injections,. Patient was in the hospital from 06/26/2021 through July 16 Admitted with pneumonia, severe hypothermia, acute hypoxic respiratory failure, possible sepsis, possible acute congestive heart failure exacerbation. Was intubated. Was discharged on intermittent BiPAP. Lynn to have possible viral pneumonitis. Was negative for COVID. Was discharged to rehab. At the rehab patient had a poor appetite. Not really able to walk. 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 Admitted. Denies any fever and chills. Actually eating better here. Has been having daily bowel movements. Occasional diarrhea. Does feel tired and rundown. Admitted with severe hypotension, acute kidney injury, hypoglycemia. Diuretics were held. IV hydration. PTOT. September 11: Lasted patient abdominal pain. Abdominal x-ray unremarkable. Surgery consulted. Patient's is present. Appetite is actually getting better. Continue IV fluids. Renal function worsening. Start bicarbonate drip. Coughing up some yellow sputum. Add doxycycline for acute bronchitis. Check creatinine kinase. Rule out rhabdomyolysis. September 12: Patient potassium persisted to be high yesterday. In spite of having several medications. Moved to the ICU. Nephrology consulted. Dialysis catheter was placed and patient received hemodialysis late last night. Poor appetite. Tired. Seen by psychiatry. Lynn to have adjustment disorder. September 13: ICU: Tired and sleepy. Barely eating. I reviewed medications. Patient on Neurontin in the setting of acute kidney injury this can cause the patient to be lethargic. Cut back on the dose. Dialysis today. About half a liter removed. IV Zosyn. September 14: Patient started on Marinol yesterday. Still appetite is poor. Pharyngeal hygiene not good. Discussed with the nurse to get it clean. Including saltwater gargle. Patient bit more awake after cutting back dose of Neurontin. On IV Zosyn. September 15: Patient not really eating. Neurontin cutback 200 mg daily at bedtime. Reminded nurse about pharyngeal tolerate. Not much urine output. IV fluids increased to 130 mL an hour. Hypoglycemic. DC Lantus. September 16: Patient does complain of feeling depressed. Not eating. Patient was reevaluated by psychiatry. Lynn to be adjustment disorder. Patient does not have any pain in the lower extremity except on movement. cutback Requip. .25 mg daily at bedtime. It is cleared through the renal route. Getting a neurological evaluation. The unlikely will check patient's ammonia level. Also spoke to the about possible feeding tube. Given poor oral intake. Patient only eating a few bites here and there September 17: Patient taken to the OR. Dr. Renetta Santillan the patient's found to have a gangrenous gallbladder. GRETCHEN drain. Patient taken to the ICU postprocedure. On the ventilator. IV propofol. Spoke to patient's family including the at the bedside. September 23: ICU: I assumed care of patient today. He was extubated yesterday. On 2 L nasal cannula. Globin 6.4. 1 unit of blood ordered. Clear liquid diet. GRETCHEN drain in place. Draining serosanguineous. at the bedside. Weakness. Right femoral dialysis catheter. Patient getting DDAVP today. For hemodialysis tomorrow. September 24: ICU: Awake, communicating. Tired. Did tolerate liquid diet this morning. Diet is being advanced. Received a unit of blood yesterday. He'll globin up as 7.3. Remains oliguric. Hemodialysis today September 25: ate little bit of breakfast did not like hospital food. Told to increase limb movements while in bed. IV Zosyn. Tired. September 26: Barely eating. GRETCHEN drain. IV Zosyn. Upper extremities moving better. Minimal movements of lower extremity. Encourage oral intake. On hemodialysis September 27: Still eating small amounts. Not enough. Communicative and dietitian. Spoke to patient at length. Patient is agreeable to PEG tube feeding. If no improvement in next 24 hours we will order the same. Calorie diet ordered at bedside. Discussed with Dr. Hawk. On hemodialysis. September 28: Patient nothing by mouth as it could not get the new dialysis catheter placed yesterday. Laying in bed. No new issues. No urine output. Active Medications Acetaminophen (Acetaminophen Tab 325 Mg Tab) 650 mg PO Q6HR PRN PRN Reason: Mild Pain or Fever > 100.5 Last Admin: 09/12/21 20:09 Dose: 650 mg Documented by: Albuterol/Ipratropium (Ipratropium-Albuterol 3 Ml Neb) 3 ml INHALATION RT-QID [facility] Last Admin: 09/28/21 10:59 Dose: 3 ml Documented by: Albuterol/Ipratropium (Ipratropium-Albuterol 3 Ml Neb) 3 ml INHALATION RT-Q2H PRN PRN Reason: Shortness Of Breath Or Wheezing Darbepoetin Arthur (Darbepoetin Arthur 40 Mcg/0.4 Ml Syringe) 40 mcg SQ Q7D [facility] Last Admin: 09/28/21 11:07 Dose: 40 mcg Documented by: Famotidine (Famotidine 20 Mg Tab) 20 mg PO [facility] Last Admin: 09/27/21 21:18 Dose: 20 mg Documented by: Gabapentin (Gabapentin 100 Mg Cap) 100 mg PO [facility] Last Admin: 09/27/21 21:18 Dose: 100 mg Documented by: Hydromorphone HCl (Hydromorphone 1 Mg/Ml 1 Ml Syringe) 1 mg IVP Q3HR PRN PRN Reason: Pain Last Admin: 09/25/21 00:14 Dose: 1 mg Documented by: Piperacillin Sod/Tazobactam (Sod 3.375 gm/ Sodium Chloride) 100 mls @ 25 mls/hr IVPB Q12HR [facility]; Protocol Last Admin: 09/28/21 10:19 Dose: 25 mls/hr Documented by: Insulin Aspart (Insulin Aspart (Novolog) 100 Unit/Ml Vial) 0 unit SQ Q6HR [facility]; Protocol Last Admin: 09/28/21 12:06 Dose: Not Given Documented by: Metoprolol Tartrate (Metoprolol Tartrate 50 Mg Tab) 50 mg PO BID [facility] Last Admin: 09/28/21 10:19 Dose: 50 mg Documented by: Miscellaneous Information (Potassium Replacement Protocol 1 Each Misc) 1 each MISCELLANE DAILY PRN; Protocol PRN Reason: Per Protocol Naloxone HCl (Naloxone 0.4 Mg/Ml 1 Ml Vial) 0.2 mg IV Q2M PRN PRN Reason: Opioid Reversal Tamsulosin HCl (Tamsulosin 0.4 Mg Cap.Er.24h) 0.4 mg PO PC-SUPPER [facility] Last Admin: 09/27/21 17:21 Dose: 0.4 mg Documented by: Past medical history to include: COPD, asthma, diabetes, hypertension, hyperlipidemia, obstructive sleep apnea uses CPAP, herniated disc uses injections, pneumonia June 2021 patient intubated Social history: Alcohol occasionally. Occasional cigar. Marijuana occasionally. . At rehab Family history: Skin cancer, macular degeneration Physical examination: VITAL SIGNS: 98.6, 97, 18, 137/76, 96% on room air GENERAL: laying in bed, awake, tired EYES: Pupils equal. Conjunctiva normal. HEENT: External appearance of nose and ears normal, oral cavity endotracheal tube NECK: JVD not raised; masses not palpable. HEART: First and second heart sounds are normal; edema. LUNGS: Respiratory rate increased; decreased breath sounds ABDOMEN: Soft, some tenderness, no guarding rigidity GRETCHEN drain, binder liver spleen not palpable, no masses palpable. PSYCH: Answering questions appropriately. Mood and affect a bit low MUSCULOSKELETAL:No Clubbing/cyanosis;muscles-grossly intact NEUROLOGICAL: Cranial nerves grossly intact; no facial asymmetry, able to elevate upper extremity partly. Only slight movement of the lower extremity. INVESTIGATIONS, reviewed in the clinical context: September 28: White count 8.1 hemoglobin 8.3 potassium 4.1 creatinine 3.44 White count 6.8 hemoglobin 13.8 platelets 244 sodium 136 potassium 4.9 BUN 40 creatinine 3.41. EKG tracing personally reviewed by me-sinus rhythm, right bundle branch block. Some T waves abnormalities Chest x-ray film personally reviewed by me-possible chronic changes Blood Glucose 36 Assessment and plan: -Severe hypotension, from acute kidney injury from decreased oral intake: Better -Acute metabolic encephalopathy : Better Seen by Neurology -Chronic congestive heart failure. From diastolic dysfunction EF 55-60%: Hold diuretics for now -Acute kidney injury ATN from hypotension: On renal replacement therapy on hemodialysis -Acute metabolic acidosis from worsening renal failure: Better bicarbonate drip-discontinued. Oral bicarbonate -Acute severe hyperkalemia from metabolic acidosis: Better -Sinus tachycardia likely from sepsis -Anorexia multifactorial: Did not respond to Marinol. Calorie chart is being done. If no improvement in next 48 hours then PEG tube. -Gangrenous cholecystitis followed by cholecystectomy. IV Zosyn. Cholecystectomy on September [address] Jackson -Sepsis. Secondary to gangrenous cholecystitis Zosyn. 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 -Obesity BMI 51.4 -Adjustment disorder Seen by psychiatry. No medications. -Essential hypertension,: Lopressor 50 mg twice a day -Restless leg syndrome Requip .25 mg daily at bedtime -Diabetes mellitus type 2 on oral hypoglycemic, uncontrolled with hypoglycemia: Slow to respond Hold of oral hypoglycemic. Follow Accu-Cheks. -Hyperlipidemia Hold off Zocor because of muscle weakness -BPH Flomax 0.4 mg daily -COPD Advair 250/50 one puff twice a day [currently held]. DuoNeb 4 times a day -Chronic medical debility from recent protracted hospitalization PTOT -Full code IV Zosyn. GRETCHEN drain discontinued. Patient nothing by mouth this morning for dialysis catheter placement. Calorie chart
--- NOTE | 2021-09-28 16:53 | XR ---
EXAMINATION TYPE: XR chest 1V portable DATE OF EXAM: 09/28/2021 4:16 PM COMPARISON: Radiograph 09/24/2021 TECHNIQUE: XR chest 1V portable Frontal view of the chest. 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 Pulmonary vascularity: Unremarkable. Heart/mediastinum: Cardiomediastinal silhouette is unremarkable. Musculoskeletal: No acute osseous pathology. Other findings: None Lines/Tubes: Left internal jugular central venous catheter with distal tip at the cavoatrial junction. Right internal jugular central venous catheter with distal tip projecting over the right atrium IMPRESSION: 1. Interval placement of right IJ catheter with tip in the project over the right atrium. No evidenc e of pneumothorax 2. Similar cardiomegaly 3. Appropriate placement of left central venous catheter with tip projecting superior cavoatrial junc tion.
[2021-09-28 18:04] LABS: Glucose,Whole Blood 113 mg/dL (75-99)
[2021-09-28] MEDS: TAMSULOSIN 0.4 MG CAP.ER.24H PO SCH (19:22)
[2021-09-28] MEDS: FAMOTIDINE 20 MG TAB PO SCH (20:11)
[2021-09-28] MEDS: GABAPENTIN 100 MG CAP PO SCH (20:11)
[2021-09-28 23:59] LABS: Glucose,Whole Blood 111 mg/dL (75-99)
[2021-09-29] MEDS: INSULIN ASPART (NovoLOG) 100 UNIT/ML VIAL SQ SCH ×4 (00:20→17:18)
[2021-09-29 05:47] LABS: Glucose,Whole Blood 94 mg/dL (75-99)
[2021-09-29] MEDS: METOPROLOL TARTRATE 50 MG TAB PO SCH ×2 (07:31→20:02)
[2021-09-29] MEDS: PIPERACILLIN-TAZOBACTAM 3.375 GM in SODIUM CHLORIDE 0.9% 100 ML IVPB SCH (07:32)
[2021-09-29] MEDS: IPRATROPIUM-ALBUTEROL 3 ML NEB INHALATION SCH ×4 (09:02→20:14)
--- NOTE | 2021-09-29 09:44 | P.PN ---
Subjective Progress Note Date: 09/28/21 Patient was seen for a follow-up. Patient underwent laparoscopic cholecystectomy for gangrenous cholecystitis. He required open cholecystectomy. Patient is extubated. He was seen in room 455 bed 1. Patient continues to have weakness of the lower extremities. Upper extremities have improved. Offers no other complaints. Objective - Vital Signs Vital signs: Vital Signs Temp 98.2 F 09/29/21 06:58 Pulse 90 09/29/21 09:17 Resp 18 09/29/21 09:17 BP 126/75 09/29/21 06:58 Pulse Ox 93 L 09/29/21 09:02 Intake & Output 09/28/21 09/29/21 09/29/21 18:59 06:59 18:59 Weight 159.4 kg Other: Voiding Method Indwelling Catheter Indwelling Catheter Indwelling Catheter # Bowel Movements 1 ABP, PAP, CO, CI - Last Documented Arterial Blood Pressure 131/60 - Exam Patient is alert and awake. Speech and language functions are normal. Cranial nerves normal. Muscle strength testing deltoid (right/left) 2 to 3-/3-, biceps 4-/4+, triceps 4+/4+, wire wheeler 4/4. Patient can wiggle his ankles bilaterally, left slightly better than the right. Not able to move proximally. Reflexes are present in the biceps, 1+ on the right, 1 on the left. Triceps are 1/1. Absent reflexes in the brachioradialis, knees and ankles bilaterally. Positive peripheral edema. Abdomen is soft. - Labs CBC & Chem 7: 09/28/21 11:35 09/28/21 11:35 Labs: Abnormal Lab Results - Last 24 Hours (Table) 09/28/21 09/28/21 09/28/21 Range/Units 11:35 11:35 18:03 RBC 2.78 L (4.30-5.90) m/uL Hgb 8.3 L (13.0-17.5) gm/dL Hct 25.8 L (39.0-53.0) % RDW 18.4 H (11.5-15.5) % Metamyelocytes # (Man) 0.08 H (0) k/uL Myelocytes # (Manual) 0.16 H (0) k/uL Chloride 111 H (98-107) mmol/L Creatinine 3.44 H (0.66-1.25) mg/dL POC Glucose (mg/dL) 113 H (75-99) mg/dL Calcium 7.5 L (8.4-10.2) mg/dL 09/28/21 Range/Units 23:57 RBC (4.30-5.90) m/uL Hgb (13.0-17.5) gm/dL Hct (39.0-53.0) % RDW (11.5-15.5) % Metamyelocytes # (Man) (0) k/uL Myelocytes # (Manual) (0) k/uL Chloride (98-107) mmol/L Creatinine (0.66-1.25) mg/dL POC Glucose (mg/dL) 111 H (75-99) mg/dL Calcium (8.4-10.2) mg/dL Assessment and Plan Assessment: * Altered mental status, most likely due to toxic metabolic encephalopathy, much improved. * Acute kidney injury, started on dialysis on 09/11/2021, still on dialysis. * Recent history of hypotension leading to acute kidney injury * Status post cholecystectomy. * Generalized weakness most likely related to critical illness neuropathy/myopathy. * Anemia * Morbid obesity, BMI 41.8 * History of respiratory failure on mechanical ventilator. * Diabetes type 2 * Hyperlipidemia * Hypertension * COPD Plan: * CT head showed no acute process. There is improvement in the ethmoid and sphenoid sinusitis compared to old exam. There is bilateral chronic mastoiditis similar to old exam. There is significant clearing of the opacification of the middle ear cavity compared to the last exam. I personally reviewed computed tomography scan of the head and agree with the findings. Slight prominence of the ventricles as compared to the amount of co rtical atrophy. * Treatment of medical conditions as per IM and other specialties * Thiamine 90 (38-122), B6 9(5-50). * Nephrology following closely. * Avoid any sedatives, hypnotics or narcotics. * Patient on SCDs for DVT prophylaxis. * Subacute rehab when medically cleared.
[2021-09-29 10:26] LABS: Anisocytosis Slight; Basophils % (A) 1 %; Eosinophils # (A) 0.2 k/uL (0-0.7); Eosinophils % (A) 3 %; HGB 7.6 gm/dL (13.0-17.5); Hypochromasia Marked; Lymphocytes # (A) 0.7 k/uL (1.0-4.8); Lymphocytes % (A) 12 %; MCH 28.9 pg (25.0-35.0); MCHC 30.2 g/dL (31.0-37.0); MCV 95.6 fL (80.0-100.0); Macrocytosis Slight; Mean Platelet Volume 7.3; Monocytes # (A) 0.4 k/uL (0-1.0); Monocytes % (A) 6 %; Neutrophils # (A) 4.7 k/uL (1.3-7.7); Neutrophils % (A) 78 %; Platelet Count 281 k/uL (150-450); RBC 2.61 m/uL (4.30-5.90); RDW 18.2 % (11.5-15.5); WBC 6.1 k/uL (3.8-10.6)
[2021-09-29 10:38] LABS: Potassium 3.2 mmol/L (3.5-5.1)
[2021-09-29 10:39] LABS: African American GFR (CKD) 16 (>60 ml/min/1.73 sqM); Anion Gap 7 mmol/L; Blood Urea Nitrogen 21 mg/dL (9-20); Calcium 7.5 mg/dL (8.4-10.2); Carbon Dioxide 22 mmol/L (22-30); Chloride 109 mmol/L (98-107); Glucose 140 mg/dL (74-99); Non-African American GFR(CKD) 14 (>60 ml/min/1.73 sqM); Sodium 138 mmol/L (137-145)
[2021-09-29 11:13] LABS: Glucose,Whole Blood 142 mg/dL (75-99)
[2021-09-29] MEDS ORDERED: POTASSIUM CHLORIDE ER 20 MEQ TAB.ER PO STA (11:42)
--- NOTE | 2021-09-29 11:46 | P.PN ---
Subjective Progress Note Date: 09/29/21 CHIEF COMPLAINT: Abdominal pain HISTORY OF PRESENT ILLNESS: Patient is on regular medical floor. Patient status post IJ catheter placement. He did have some blood oozing from that site. Patient denies any significant abdominal pain. Denies any nausea or vomiting. Still having poor oral intake. He only ate one bite of breakfast per nursing staff. He is undergoing a calorie count. Afebrile. WBC is 6.1 hemoglobin is down from 8.3-7.6. Potassium 3.2 PHYSICAL EXAM: VITAL SIGNS: Reviewed. GENERAL: No acute distress HEENT: Moist buccal mucosa. Head is atraumatic, normocephalic. ABDOMEN: Soft. Nondistended. Incisional dressing clean dry and intact ASSESSMENT: 1. Acute gangrenous cholecystitis status post open cholecystectomy. Postop day #10 2. Acute kidney injury requiring hemodialysis 3. Anemia 4. Poor oral intake PLAN: -Patient undergoing calorie count. At this time patient is declining PEG tube placement. -Continue supportive care -Continue antibiotics -Replace potassium Physician Data Modeling Specialist note has been reviewed by physician. Signing provider agrees with the documented findings, assessment, and plan of care. Objective - Vital Signs Vital signs: Vital Signs Temp 98.2 F 09/29/21 06:58 Pulse 90 09/29/21 09:17 Resp 18 09/29/21 09:17 BP 126/75 09/29/21 06:58 Pulse Ox 93 L 09/29/21 09:02 Intake & Output 09/28/21 09/29/21 09/29/21 18:59 06:59 18:59 Weight 159.4 kg Other: Voiding Method Indwelling Catheter Indwelling Catheter Indwelling Catheter # Bowel Movements 1 ABP, PAP, CO, CI - Last Documented Arterial Blood Pressure 131/60 - Labs CBC & Chem 7: 09/29/21 09:55 09/29/21 09:55 Labs: Abnormal Lab Results - Last 24 Hours (Table) 09/28/21 09/28/21 09/28/21 Range/Units 11:35 11:35 18:03 RBC 2.78 L (4.30-5.90) m/uL Hgb 8.3 L (13.0-17.5) gm/dL Hct 25.8 L (39.0-53.0) % MCHC (31.0-37.0) g/dL RDW 18.4 H (11.5-15.5) % Lymphocytes # (1.0-4.8) k/uL Metamyelocytes # (Man) 0.08 H (0) k/uL Myelocytes # (Manual) 0.16 H (0) k/uL Potassium (3.5-5.1) mmol/L Chloride 111 H (98-107) mmol/L BUN (9-20) mg/dL Creatinine 3.44 H (0.66-1.25) mg/dL Glucose (74-99) mg/dL POC Glucose (mg/dL) 113 H (75-99) mg/dL Calcium 7.5 L (8.4-10.2) mg/dL 09/28/21 09/29/21 09/29/21 Range/Units 23:57 09:55 09:55 RBC 2.61 L (4.30-5.90) m/uL Hgb 7.6 L (13.0-17.5) gm/dL Hct 25.0 L (39.0-53.0) % MCHC 30.2 L (31.0-37.0) g/dL RDW 18.2 H (11.5-15.5) % Lymphocytes # 0.7 L (1.0-4.8) k/uL Metamyelocytes # (Man) (0) k/uL Myelocytes # (Manual) (0) k/uL Potassium 3.2 L (3.5-5.1) mmol/L Chloride 109 H (98-107) mmol/L BUN 21 H (9-20) mg/dL Creatinine 4.32 H (0.66-1.25) mg/dL Glucose 140 H (74-99) mg/dL POC Glucose (mg/dL) 111 H (75-99) mg/dL Calcium 7.5 L (8.4-10.2) mg/dL 09/29/21 Range/Units 11:11 RBC (4.30-5.90) m/uL Hgb (13.0-17.5) gm/dL Hct (39.0-53.0) % MCHC (31.0-37.0) g/dL RDW (11.5-15.5) % Lymphocytes # (1.0-4.8) k/uL Metamyelocytes # (Man) (0) k/uL Myelocytes # (Manual) (0) k/uL Potassium (3.5-5.1) mmol/L Chloride (98-107) mmol/L BUN (9-20) mg/dL Creatinine (0.66-1.25) mg/dL Glucose (74-99) mg/dL POC Glucose (mg/dL) 142 H (75-99) mg/dL Calcium (8.4-10.2) mg/dL
--- NOTE | 2021-09-29 12:22 | P.PN ---
Subjective Patient is seen for follow-up for acute kidney injury and hyperkalemia. He was significantly hypotensive on initial admission. Serum creatinine had peaked at 3.7 mg/dL but due to the potassium staying elevated at 7.3 patient was dialyzed . Urine output had improved and dialysis was held to monitor for possible recovery of renal function but urine output remained low and therefore patient has been maintained on dialysis. Patient was taken to OR on 09/17/21 and had open cholecystectomy. He was found to have acute gangrenous cholecystitis and necrosis of the gallbladder wall. Postoperatively patient has been transferred to the ICU. He remains intubated. Poor urine output Patient is seen on telemetry floor. He has been transferred out of the ICU.. Patient remains hemodialysis dependent with poor urine output. Blood pressure is improved and he is off of pressors. Extubated on 09/22/2021 Urine output remains poor. Overall patient is feeling much better . Objective - Vital Signs Vital signs: Vital Signs Temp 98.2 F 09/29/21 06:58 Pulse 70 09/29/21 12:16 Resp 18 09/29/21 09:17 BP 126/75 09/29/21 06:58 Pulse Ox 93 L 09/29/21 09:02 Intake & Output 09/28/21 09/29/21 09/29/21 18:59 06:59 18:59 Weight 159.4 kg Other: Voiding Method Indwelling Catheter Indwelling Catheter Indwelling Catheter # Bowel Movements 1 ABP, PAP, CO, CI - Last Documented Arterial Blood Pressure 131/60 - Exam Patient is awake comfortable. He is not in any acute distress Examination of the heart S1 and S2 Examination lungs bilateral breath sounds are heard Abdomen is soft nontender obese Examination lower extremities shows chronic skin changes, 2+ edema noted. VEHICLE MONITOR TECHNICIAN exam is grossly intact - Labs CBC & Chem 7: 09/29/21 09:55 09/29/21 09:55 Labs: Abnormal Lab Results - Last 24 Hours (Table) 09/28/21 09/28/21 09/28/21 Range/Units 11:35 18:03 23:57 RBC 2.78 L (4.30-5.90) m/uL Hgb 8.3 L (13.0-17.5) gm/dL Hct 25.8 L (39.0-53.0) % MCHC (31.0-37.0) g/dL RDW 18.4 H (11.5-15.5) % Lymphocytes # (1.0-4.8) k/uL Metamyelocytes # (Man) 0.08 H (0) k/uL Myelocytes # (Manual) 0.16 H (0) k/uL Potassium (3.5-5.1) mmol/L Chloride (98-107) mmol/L BUN (9-20) mg/dL Creatinine (0.66-1.25) mg/dL Glucose (74-99) mg/dL POC Glucose (mg/dL) 113 H 111 H (75-99) mg/dL Calcium (8.4-10.2) mg/dL 09/29/21 09/29/21 09/29/21 Range/Units 09:55 09:55 11:11 RBC 2.61 L (4.30-5.90) m/uL Hgb 7.6 L (13.0-17.5) gm/dL Hct 25.0 L (39.0-53.0) % MCHC 30.2 L (31.0-37.0) g/dL RDW 18.2 H (11.5-15.5) % Lymphocytes # 0.7 L (1.0-4.8) k/uL Metamyelocytes # (Man) (0) k/uL Myelocytes # (Manual) (0) k/uL Potassium 3.2 L (3.5-5.1) mmol/L Chloride 109 H (98-107) mmol/L BUN 21 H (9-20) mg/dL Creatinine 4.32 H (0.66-1.25) mg/dL Glucose 140 H (74-99) mg/dL POC Glucose (mg/dL) 142 H (75-99) mg/dL Calcium 7.5 L (8.4-10.2) mg/dL Assessment and Plan Assessment: 1. Hyperkalemia associated with acute kidney injury use of JENSEN inhibitor's prior to admission currently improved. 2. Acute kidney injury secondary to ATN from hypotension, previous creatinine 0.7 on 08/10/2021. Started dialysis on 09/12/2021 for severe hyperkalemia. Urine output is poor postoperatively and patient remains hemodialysis dependent 3. Metabolic acidosis associated with acute kidney injury and recent shock and hypotension. Resolved 4. Acute cholecystitis with gangrenous bladder status post open cholecystectomy on 09/17/2021 5. Acute hypoxic respiratory failure, status post extubation on 09/22/2021, continuing to improve 6. Volume overload slowly improving with dialysis Plan: Hemodialysis today OK for discharge from nephrology
--- NOTE | 2021-09-29 14:23 | PCN ---
PROCEDURE NOTE PREOPERATIVE DIAGNOSIS: Acute on chronic renal failure. POSTOPERATIVE DIAGNOSIS: Acute on chronic renal failure. PROCEDURE: 1. Placement of dialysis catheter, ultrasound-guided, via right jugular vein. 2. Removal of left femoral dialysis catheter. PROCEDURE DESCRIPTION: Sedation time 25 minutes. This patient was brought to the director geophysical laboratory. Right side of the neck and chest was prepped and draped in usual sterile manner. Left groin was prepped and drapes were applied in usual sterile manner. Lidocaine 1% was infiltrated into the neck area. Using micropuncture introducer in right jugular vein, micropuncture guidewire was passed and 4-Senegalese dilator was advanced on top of the guidewire. Then we created a tunnel and through the tunnel we brought a 28 cm dialysis catheter. Regular guidewire was passed which was parked in the inferior vena cava. After that we passed a dilator, and then a sheath was advanced on top of the guidewire. Through the sheath we introduced the dialysis catheter. Tip of the catheter was in the superior vena cavoatrial junction. Flushed with heparin saline and hep-locked, secured with 3-0 nylon. Dressing was applied. After that, left groin was prepped and the patient had a temporary catheter which was removed. Pressure was held. Patient tolerated the procedure well. MMODL / IJN: [id number] /
--- NOTE | 2021-09-29 15:30 | P.PN ---
Progress Note - Text Progress Note Date: 09/29/21 Chief Complaint: Tired This is a 61-year-old patient, follows with Dr. Seda Schneider. Chronic stable medical conditions include diabetes, , hyperlipidemia, obstructive sleep apnea uses CPAP, herniated disc / injections,. Patient was in the hospital from 06/26/2021 through July 16 Admitted with pneumonia, severe hypothermia, acute hypoxic respiratory failure, possible sepsis, possible acute congestive heart failure exacerbation. Was intubated. Was discharged on intermittent BiPAP. [place] to have possible viral pneumonitis. Was negative for COVID. Was discharged to rehab. At the rehab patient had a poor appetite. Not really able to walk. Patient was at payment processor up as found a very low blood pressure. Admitted. Denies any fever and chills. Actually eating better here. Has been having daily bowel movements. Occasional diarrhea. Does feel tired and rundown. Admitted with severe hypotension, acute kidney injury, hypoglycemia. Diuretics were held. IV hydration. PTOT. September 11: Lasted patient abdominal pain. Abdominal x-ray unremarkable. Surgery consulted. Patient's is present. Appetite is actually getting better. Continue IV fluids. Renal function worsening. Start bicarbonate drip. Coughing up some yellow sputum. Add doxycycline for acute bronchitis. Check creatinine kinase. Rule out rhabdomyolysis. September 12: Patient potassium persisted to be high yesterday. In spite of having several medications. Moved to the ICU. Nephrology consulted. Dialysis catheter was placed and patient received hemodialysis late last night. Poor appetite. Tired. Seen by psychiatry. [place] to have adjustment disorder. September 13: ICU: Tired and sleepy. Barely eating. I reviewed medications. Patient on Neurontin in the setting of acute kidney injury this can cause the patient to be lethargic. Cut back on the dose. Dialysis today. About half a liter removed. IV Zosyn. September 14: Patient started on Marinol yesterday. Still appetite is poor. Pharyngeal hygiene not good. Discussed with the nurse to get it clean. Including saltwater gargle. Patient bit more awake after cutting back dose of Neurontin. On IV Zosyn. September 15: Patient not really eating. Neurontin cutback 200 mg daily at bedtime. Reminded nurse about pharyngeal tolerate. Not much urine output. IV fluids increased to 130 mL an hour. Hypoglycemic. DC Lantus. September 16: Patient does complain of feeling depressed. Not eating. Patient was reevaluated by psychiatry. [place] to be adjustment disorder. Patient does not have any pain in the lower extremity except on movement. cutback Requip. .25 mg daily at bedtime. It is cleared through the renal route. Getting a neurological evaluation. The unlikely will check patient's ammonia level. Also spoke to the about possible feeding tube. Given poor oral intake. Patient only eating a few bites here and there September 17: Patient taken to the OR. Dr. Renetta Santillan the patient's found to have a gangrenous gallbladder. GRETCHEN drain. Patient taken to the ICU postprocedure. On the ventilator. IV propofol. Spoke to patient's family including the at the bedside. September 23: ICU: I assumed care of patient today. He was extubated yesterday. On 2 L nasal cannula. Globin 6.4. 1 unit of blood ordered. Clear liquid diet. GRETCHEN drain in place. Draining serosanguineous. at the bedside. Weakness. Right femoral dialysis catheter. Patient getting DDAVP today. For hemodialysis tomorrow. September 24: ICU: Awake, communicating. Tired. Did tolerate liquid diet this morning. Diet is being advanced. Received a unit of blood yesterday. He'll globin up as 7.3. Remains oliguric. Hemodialysis today September 25: ate little bit of breakfast did not like hospital food. Told to increase limb movements while in bed. IV Zosyn. Tired. September 26: Barely eating. GRETCHEN drain. IV Zosyn. Upper extremities moving better. Minimal movements of lower extremity. Encourage oral intake. On hemodialysis September 27: Still eating small amounts. Not enough. Communicative and dietitian. Spoke to patient at length. Patient is agreeable to PEG tube feeding. If no improvement in next 24 hours we will order the same. Calorie diet ordered at bedside. Discussed with Dr. Hawk. On hemodialysis. September 28: Patient nothing by mouth as it could not get the new dialysis catheter placed yesterday. Laying in bed. No new issues. No urine output. September 29: Right jugular vein dialysis catheter placed. Patient is attempting to eat more. Does not want PEG tube right now. We will change to chopped diet. Active Medications Acetaminophen (Acetaminophen Tab 325 Mg Tab) 650 mg PO Q6HR PRN PRN Reason: Mild Pain or Fever > 100.5 Last Admin: 09/12/21 20:09 Dose: 650 mg Documented by: Albuterol/Ipratropium (Ipratropium-Albuterol 3 Ml Neb) 3 ml INHALATION RT-QID [facility] Last Admin: 09/29/21 12:01 Dose: 3 ml Documented by: Albuterol/Ipratropium (Ipratropium-Albuterol 3 Ml Neb) 3 ml INHALATION RT-Q2H PRN PRN Reason: Shortness Of Breath Or Wheezing Darbepoetin Arthur (Darbepoetin Arthur 40 Mcg/0.4 Ml Syringe) 40 mcg SQ Q7D [facility] Last Admin: 09/28/21 11:07 Dose: 40 mcg Documented by: Famotidine (Famotidine 20 Mg Tab) 20 mg PO [facility] Last Admin: 09/28/21 20:11 Dose: 20 mg Documented by: Gabapentin (Gabapentin 100 Mg Cap) 100 mg PO [facility] Last Admin: 09/28/21 20:11 Dose: 100 mg Documented by: Piperacillin Sod/Tazobactam (Sod 3.375 gm/ Sodium Chloride) 100 mls @ 25 mls/hr IVPB Q12HR [facility]; Protocol Last Admin: 09/29/21 07:32 Dose: 25 mls/hr Documented by: Insulin Aspart (Insulin Aspart (Novolog) 100 Unit/Ml Vial) 0 unit SQ Q6HR [facility]; Protocol Last Admin: 09/29/21 11:16 Dose: Not Given Documented by: Metoprolol Tartrate (Metoprolol Tartrate 50 Mg Tab) 50 mg PO BID [facility] Last Admin: 09/29/21 07:31 Dose: 50 mg Documented by: Miscellaneous Information (Potassium Replacement Protocol 1 Each Misc) 1 each MISCELLANE DAILY PRN; Protocol PRN Reason: Per Protocol Naloxone HCl (Naloxone 0.4 Mg/Ml 1 Ml Vial) 0.2 mg IV Q2M PRN PRN Reason: Opioid Reversal Tamsulosin HCl (Tamsulosin 0.4 Mg Cap.Er.24h) 0.4 mg PO PC-SUPPER [facility] Last Admin: 09/28/21 19:22 Dose: 0.4 mg Documented by: Past medical history to include: COPD, asthma, diabetes, hypertension, hyperlipidemia, obstructive sleep apnea uses CPAP, herniated disc uses injections, pneumonia June 2021 patient intubated Social history: Alcohol occasionally. Occasional cigar. Marijuana occasionally. . At rehab Family history: Skin cancer, macular degeneration Physical examination: VITAL SIGNS: 97.9, 90, 18, 178 and 75, 98% room air GENERAL: laying in bed, awake, tired EYES: Pupils equal. Conjunctiva normal. HEENT: External appearance of nose and ears normal, oral cavity endotracheal tube NECK: JVD not raised; masses not palpable. HEART: First and second heart sounds are normal; edema. LUNGS: Respiratory rate increased; decreased breath sounds ABDOMEN: Soft, some tenderness, no guarding rigidity GRETCHEN drain, binder liver spleen not palpable, no masses palpable. PSYCH: Answering questions appropriately. Mood and affect a bit low MUSCULOSKELETAL:No Clubbing/cyanosis;muscles-grossly intact NEUROLOGICAL: Cranial nerves grossly intact; no facial asymmetry, able to elevate upper extremity partly. Only slight movement of the lower extremity. INVESTIGATIONS, reviewed in the clinical context: September 29: White count 6.1 hemoglobin 7.6 potassium 3.2 creatinine 4.3 to September 28: White count 8.1 hemoglobin 8.3 potassium 4.1 creatinine 3.44 White count 6.8 hemoglobin 13.8 platelets 244 sodium 136 potassium 4.9 BUN 40 creatinine 3.41. EKG tracing personally reviewed by me-sinus rhythm, right bundle branch block. Some T waves abnormalities Chest x-ray film personally reviewed by me-possible chronic changes Blood Glucose 36 Assessment and plan: -Severe hypotension, from acute kidney injury from decreased oral intake: Better -Acute metabolic encephalopathy : Better Seen by Neurology -Chronic congestive heart failure. From diastolic dysfunction EF 55-60%: Hold diuretics for now -Acute kidney injury ATN from hypotension: On renal replacement therapy on hemodialysis -Acute metabolic acidosis from worsening renal failure: Better bicarbonate drip-discontinued. Oral bicarbonate -Acute severe hyperkalemia from metabolic acidosis: Better -Sinus tachycardia likely from sepsis -Anorexia multifactorial: Did not respond to Marinol. Calorie chart is being done. Patient declined PEG tube. Trying to increase his oral intake. -Gangrenous cholecystitis followed by cholecystectomy. IV Zosyn. Completed course Cholecystectomy on September [address] Jackson -Sepsis. Secondary to gangrenous cholecystitis Zosyn. Changed to Augmentin -Critical care myopathy: Slow to respond PTOT. -Obesity BMI 51.4 -Adjustment disorder Seen by psychiatry. No medications. -Essential hypertension,: Lopressor 50 mg twice a day -Restless leg syndrome Requip .25 mg daily at bedtime -Diabetes mellitus type 2 on oral hypoglycemic, uncontrolled with hypoglycemia: Slow to respond Hold of oral hypoglycemic. Follow Accu-Cheks. -Hyperlipidemia Hold off Zocor because of muscle weakness -BPH Flomax 0.4 mg daily -COPD Advair 250/50 one puff twice a day [currently held]. DuoNeb 4 times a day -Chronic medical debility from recent protracted hospitalization PTOT -Full code IV Zosyn discontinue right IJ dialysis catheter placed. Changed to chopped diet. Hopefully discharged on Monday.
[2021-09-29 16:14] LABS: Glucose,Whole Blood 179 mg/dL (75-99)
[2021-09-29] MEDS: TAMSULOSIN 0.4 MG CAP.ER.24H PO SCH (17:35)
[2021-09-29] MEDS: FAMOTIDINE 20 MG TAB PO SCH (20:02)
[2021-09-29] MEDS: GABAPENTIN 100 MG CAP PO SCH (20:03)
[2021-09-30 00:08] LABS: Glucose,Whole Blood 134 mg/dL (75-99)
[2021-09-30] MEDS: INSULIN ASPART (NovoLOG) 100 UNIT/ML VIAL SQ SCH ×4 (00:24→17:21)
[2021-09-30 06:02] LABS: Glucose,Whole Blood 149 mg/dL (75-99)
[2021-09-30] MEDS: PIPERACILLIN-TAZOBACTAM 3.375 GM in SODIUM CHLORIDE 0.9% 100 ML IVPB SCH ×3 (06:28→21:35)
[2021-09-30] MEDS: METOPROLOL TARTRATE 50 MG TAB PO SCH ×2 (07:05→21:32)
[2021-09-30] MEDS: IPRATROPIUM-ALBUTEROL 3 ML NEB INHALATION SCH ×4 (08:34→20:47)
--- NOTE | 2021-09-30 09:01 | CDI ---
Documentation Clarification Form Date: 09/30/2021 08:41:07 AM From: Neha Red CCS, CCDS Admit Date: 09/09/2021 07:33:00 PM Patient Name: Zenon Marquez Visit Number: [id number] Discharge Date: ATTENTION: The Clinical Documentation Specialists (CDI) and [facility] Coding Staff appreciate your assistance in clarifying documentation. Please respond to the clarification below the line at the bottom and electronically sign. The CDI & [facility] Coding staff will review the response and follow-up if needed. Please note: Queries are made part of the Legal Health Record. If you have any questions, please contact the author of this message via ITS. Dr. Ryan Nelson: Per the 09/09 ED Note & the 09/10 H/P: The patient presented to the ED via EMS from rehab with Hypotension and tachycardia after a recently prolonged admission 06/26 - 07/16/2021 with Pneumonia, Severe Hypothermia, Acute Hypoxic Respiratory Failure, Possible Sepsis and Possible Acute Exacerbation of CHF requiring intubation. Discharged to rehab with BiPAP. Per the 09/11 Surgery Consult: Patient complained of abdominal pain beginning on 09/10, surgery was consulted, abdominal was resolved, no surgical intervention planned. Per the 09/13 Surgery Progress Note: Patient complaining of right upper quadrant tenderness & pain, febrile. Abdominal US ordered. On 09/17 the patient underwent an Open Cholecystectomy for Acute Gangrenous Cholecystitis For each diagnosis, documentation must be clear to determine if the condition was present at the time of the patients inpatient admission or developed during the hospital stay. Additional clarification regarding the documented Sepsis is requested. History/Risk Factors per the 09/10 H/P: Pneumonia, DM, MEREDITH, Hyperlipidemia, Hypertension, COPD, Asthma. Clinical Indicators: Presented to the ED on 09/09 as above. Hypotensive, afebrile and tachycardic, poor appetite at rehab, occasional diarrhea. Admit with Dehydration, Acute Kidney Injury & Hypotension 09/09 VS: T 97.1, P 115, R 14, BP 72/47, PO 97 RA 09/09 LAB: WBC 6.8, Neut 73, Lymph 0.88; Na 136, CO2 18, BUN 40, Creatinine 3.41, Glucose 36, Magnesium 1.3, Lactic Acid 2.0, Total Protein 6.1, Albumin 3.3 Treatment: O2 2Lnc, IV Na Cl 1,000 mls @ 999 mls/hr q1H, IV Na Cl 1,000 mls @ 130 mls/hr q7H, IV Cefepime 100 mls @ 200 mls/hr x1, IV Dextrose 50 ml x2, IV Na Cl 500 mls @ 999 mls/hr q31M Definition of Present on Admission (POA): A diagnosis present at the time the order for admission to inpatient status was written. Please clarify if the Sepsis was POA [ ] Y = Yes, the condition was present at the time of the order for inpatient admission. [ ] N = No, the condition was not present at the time of the order for inpatient admission. [ ] W = Clinically undetermined if the condition was present at the time of the order for inpatient admission. (Template Last Revised: September 2020) Sepsis, POA MTDD
--- NOTE | 2021-09-30 11:04 | P.PN ---
Subjective Progress Note Date: 09/30/21 CHIEF COMPLAINT: Abdominal pain HISTORY OF PRESENT ILLNESS: Patient denies any abdominal pain. Denies any nausea or vomiting. Still having poor oral intake. He is undergoing a calorie count. Afebrile. labs pending PHYSICAL EXAM: VITAL SIGNS: Reviewed. GENERAL: No acute distress HEENT: Moist buccal mucosa. Head is atraumatic, normocephalic. ABDOMEN: Soft. Nondistended. Incisional with serosanguineous drainage at the lateral aspect ASSESSMENT: 1. Acute gangrenous cholecystitis status post open cholecystectomy. Postop day #11 2. Acute kidney injury requiring hemodialysis 3. Anemia 4. Poor oral intake PLAN: -Patient undergoing calorie count. At this time patient is declining PEG tube placement. -Continue supportive care -Okay to switch over to Augmentin from surgical standpoint -Continue to monitor incision Physician Headmaster/Mistress note has been reviewed by physician. Signing provider agrees with the documented findings, assessment, and plan of care. Objective - Vital Signs Vital signs: Vital Signs Temp 98.5 F 09/30/21 07:08 Pulse 88 09/30/21 08:50 Resp 18 09/30/21 07:08 BP 119/79 09/30/21 07:08 Pulse Ox 100 09/30/21 08:34 Intake & Output 09/29/21 09/30/21 09/30/21 18:59 06:59 18:59 Output Total 2500 300 Balance -2500 -300 Weight 159.4 kg Output: Urine 300 Hemodialysis 2500 Other: Voiding Method Indwelling Catheter Indwelling Catheter # Bowel Movements 1 ABP, PAP, CO, CI - Last Documented Arterial Blood Pressure 131/60 - Labs CBC & Chem 7: 09/29/21 09:55 09/29/21 09:55 Labs: Abnormal Lab Results - Last 24 Hours (Table) 09/29/21 09/29/21 09/30/21 Range/Units 11:11 16:05 00:00 POC Glucose (mg/dL) 142 H 179 H 134 H (75-99) mg/dL 09/30/21 Range/Units 05:59 POC Glucose (mg/dL) 149 H (75-99) mg/dL
[2021-09-30 11:27] LABS: Glucose,Whole Blood 116 mg/dL (75-99)
[2021-09-30 11:35] LABS: Anisocytosis Slight; HCT 24.5 % (39.0-53.0); HGB 7.8 gm/dL (13.0-17.5); Hypochromasia Marked; MCH 29.5 pg (25.0-35.0); MCHC 31.8 g/dL (31.0-37.0); MCV 92.9 fL (80.0-100.0); Mean Platelet Volume 8.2; Platelet Count 337 k/uL (150-450); Poikilocytosis Slight; RBC 2.64 m/uL (4.30-5.90); RDW 18.7 % (11.5-15.5); WBC 6.9 k/uL (3.8-10.6)
[2021-09-30 11:39] LABS: African American GFR (CKD) 27 (>60 ml/min/1.73 sqM); Anion Gap 4 mmol/L; Blood Urea Nitrogen 13 mg/dL (9-20); Calcium 7.7 mg/dL (8.4-10.2); Carbon Dioxide 24 mmol/L (22-30); Chloride 114 mmol/L (98-107); Glucose 118 mg/dL (74-99); Non-African American GFR(CKD) 23 (>60 ml/min/1.73 sqM); Potassium 4.2 mmol/L (3.5-5.1); Sodium 142 mmol/L (137-145)
--- NOTE | 2021-09-30 11:42 | P.PN ---
Subjective Patient is seen for follow-up for acute kidney injury and hyperkalemia. He was significantly hypotensive on initial admission. Serum creatinine had peaked at 3.7 mg/dL but due to the potassium staying elevated at 7.3 patient was dialyzed . Urine output had improved and dialysis was held to monitor for possible recovery of renal function but urine output remained low and therefore patient has been maintained on dialysis. Patient was taken to OR on 09/17/21 and had open cholecystectomy. He was found to have acute gangrenous cholecystitis and necrosis of the gallbladder wall. Postoperatively patient has been transferred to the ICU. He remains intubated. Poor urine output Patient is seen on telemetry floor. He has been transferred out of the ICU.. Patient remains hemodialysis dependent with poor urine output. Blood pressure is improved and he is off of pressors. Extubated on 09/22/2021 Urine output slightly increased. Patient has a Smith catheter.. Overall patient is feeling much better . Plans for possible discharge tomorrow. Objective - Vital Signs Vital signs: Vital Signs Temp 98.5 F 09/30/21 07:08 Pulse 88 09/30/21 08:50 Resp 18 09/30/21 07:08 BP 119/79 09/30/21 07:08 Pulse Ox 100 09/30/21 08:34 Intake & Output 09/29/21 09/30/21 09/30/21 18:59 06:59 18:59 Output Total 2500 300 Balance -2500 -300 Weight 159.4 kg Output: Urine 300 Hemodialysis 2500 Other: Voiding Method Indwelling Catheter Indwelling Catheter # Bowel Movements 1 ABP, PAP, CO, CI - Last Documented Arterial Blood Pressure 131/60 - Exam Patient is awake comfortable. He is not in any acute distress Examination of the heart S1 and S2 Examination lungs bilateral breath sounds are heard Abdomen is soft nontender obese Examination lower extremities shows chronic skin changes, 1+ edema noted. BAIT PACKER exam is grossly intact - Labs CBC & Chem 7: 09/30/21 10:26 09/30/21 10:26 Labs: Abnormal Lab Results - Last 24 Hours (Table) 09/29/21 09/30/21 09/30/21 Range/Units 16:05 00:00 05:59 RBC (4.30-5.90) m/uL Hgb (13.0-17.5) gm/dL Hct (39.0-53.0) % RDW (11.5-15.5) % Chloride (98-107) mmol/L Creatinine (0.66-1.25) mg/dL Glucose (74-99) mg/dL POC Glucose (mg/dL) 179 H 134 H 149 H (75-99) mg/dL Calcium (8.4-10.2) mg/dL 09/30/21 09/30/21 09/30/21 Range/Units 10:26 10:26 11:26 RBC 2.64 L (4.30-5.90) m/uL Hgb 7.8 L (13.0-17.5) gm/dL Hct 24.5 L (39.0-53.0) % RDW 18.7 H (11.5-15.5) % Chloride 114 H (98-107) mmol/L Creatinine 2.86 H (0.66-1.25) mg/dL Glucose 118 H (74-99) mg/dL POC Glucose (mg/dL) 116 H (75-99) mg/dL Calcium 7.7 L (8.4-10.2) mg/dL Assessment and Plan Assessment: 1. Hyperkalemia associated with acute kidney injury use of JENSEN inhibitor's prior to admission currently improved. 2. Acute kidney injury secondary to ATN from hypotension, previous creatinine 0.7 on 08/10/2021. Started dialysis on 09/12/2021 for severe hyperkalemia. Urine output is poor postoperatively and patient remains hemodialysis dependent 3. Metabolic acidosis associated with acute kidney injury and recent shock and hypotension. Resolved 4. Acute cholecystitis with gangrenous bladder status post open cholecystectomy on 09/17/2021 5. Acute hypoxic respiratory failure, status post extubation on 09/22/2021, continuing to improve 6. Volume overload slowly improving with dialysis Plan: Patient will be dialyzed tomorrow. He will have a short treatment on Monday as outpatient and his regular schedule will be Monday's at the [facility].
[2021-09-30 17:20] LABS: Glucose,Whole Blood 153 mg/dL (75-99)
[2021-09-30] MEDS: TAMSULOSIN 0.4 MG CAP.ER.24H PO SCH (17:21)
--- NOTE | 2021-09-30 17:36 | P.PN ---
Progress Note - Text Progress Note Date: 09/30/21 Chief Complaint: Tired This is a 61-year-old patient, follows with Dr. Seda Schneider. Chronic stable medical conditions include diabetes, , hyperlipidemia, obstructive sleep apnea uses CPAP, herniated disc / injections,. Patient was in the hospital from 06/26/2021 through July 16 Admitted with pneumonia, severe hypothermia, acute hypoxic respiratory failure, possible sepsis, possible acute congestive heart failure exacerbation. Was intubated. Was discharged on intermittent BiPAP. Orland to have possible viral pneumonitis. Was negative for COVID. Was discharged to rehab. At the rehab patient had a poor appetite. Not really able to walk. Patient was at sedimentationist up as found a very low blood pressure. Admitted. Denies any fever and chills. Actually eating better here. Has been having daily bowel movements. Occasional diarrhea. Does feel tired and rundown. Admitted with severe hypotension, acute kidney injury, hypoglycemia. Diuretics were held. IV hydration. PTOT. September 11: Lasted patient abdominal pain. Abdominal x-ray unremarkable. Surgery consulted. Patient's is present. Appetite is actually getting better. Continue IV fluids. Renal function worsening. Start bicarbonate drip. Coughing up some yellow sputum. Add doxycycline for acute bronchitis. Check creatinine kinase. Rule out rhabdomyolysis. September 12: Patient potassium persisted to be high yesterday. In spite of having several medications. Moved to the ICU. Nephrology consulted. Dialysis catheter was placed and patient received hemodialysis late last night. Poor appetite. Tired. Seen by psychiatry. Orland to have adjustment disorder. September 13: ICU: Tired and sleepy. Barely eating. I reviewed medications. Patient on Neurontin in the setting of acute kidney injury this can cause the patient to be lethargic. Cut back on the dose. Dialysis today. About half a liter removed. IV Zosyn. September 14: Patient started on Marinol yesterday. Still appetite is poor. Pharyngeal hygiene not good. Discussed with the nurse to get it clean. Including saltwater gargle. Patient bit more awake after cutting back dose of Neurontin. On IV Zosyn. September 15: Patient not really eating. Neurontin cutback 200 mg daily at bedtime. Reminded nurse about pharyngeal tolerate. Not much urine output. IV fluids increased to 130 mL an hour. Hypoglycemic. DC Lantus. September 16: Patient does complain of feeling depressed. Not eating. Patient was reevaluated by psychiatry. Orland to be adjustment disorder. Patient does not have any pain in the lower extremity except on movement. cutback Requip. .25 mg daily at bedtime. It is cleared through the renal route. Getting a neurological evaluation. The unlikely will check patient's ammonia level. Also spoke to the about possible feeding tube. Given poor oral intake. Patient only eating a few bites here and there September 17: Patient taken to the OR. Dr. Renetta Santillan the patient's found to have a gangrenous gallbladder. GRETCHEN drain. Patient taken to the ICU postprocedure. On the ventilator. IV propofol. Spoke to patient's family including the at the bedside. September 23: ICU: I assumed care of patient today. He was extubated yesterday. On 2 L nasal cannula. Globin 6.4. 1 unit of blood ordered. Clear liquid diet. GRETCHEN drain in place. Draining serosanguineous. at the bedside. Weakness. Right femoral dialysis catheter. Patient getting DDAVP today. For hemodialysis tomorrow. September 24: ICU: Awake, communicating. Tired. Did tolerate liquid diet this morning. Diet is being advanced. Received a unit of blood yesterday. He'll globin up as 7.3. Remains oliguric. Hemodialysis today September 25: ate little bit of breakfast did not like hospital food. Told to increase limb movements while in bed. IV Zosyn. Tired. September 26: Barely eating. GRETCHEN drain. IV Zosyn. Upper extremities moving better. Minimal movements of lower extremity. Encourage oral intake. On hemodialysis September 27: Still eating small amounts. Not enough. Communicative and dietitian. Spoke to patient at length. Patient is agreeable to PEG tube feeding. If no improvement in next 24 hours we will order the same. Calorie diet ordered at bedside. Discussed with Dr. Hawk. On hemodialysis. September 28: Patient nothing by mouth as it could not get the new dialysis catheter placed yesterday. Laying in bed. No new issues. No urine output. September 29: Right jugular vein dialysis catheter placed. Patient is attempting to eat more. Does not want PEG tube right now. We will change to chopped diet. September 30: Patient not eating adequately. at the bedside. Discussion was again held about PEG tube. Patient does not want the same. Discussed with the . Plan for patient to go to rehab on Monday. Active Medications Acetaminophen (Acetaminophen Tab 325 Mg Tab) 650 mg PO Q6HR PRN PRN Reason: Mild Pain or Fever > 100.5 Last Admin: 09/12/21 20:09 Dose: 650 mg Documented by: Albuterol/Ipratropium (Ipratropium-Albuterol 3 Ml Neb) 3 ml INHALATION RT-QID [facility] Last Admin: 09/30/21 16:29 Dose: 3 ml Documented by: Albuterol/Ipratropium (Ipratropium-Albuterol 3 Ml Neb) 3 ml INHALATION RT-Q2H PRN PRN Reason: Shortness Of Breath Or Wheezing Darbepoetin Arthur (Darbepoetin Arthur 40 Mcg/0.4 Ml Syringe) 40 mcg SQ Q7D [facility] Last Admin: 09/28/21 11:07 Dose: 40 mcg Documented by: Famotidine (Famotidine 20 Mg Tab) 20 mg PO [facility] Last Admin: 09/29/21 20:02 Dose: 20 mg Documented by: Gabapentin (Gabapentin 100 Mg Cap) 100 mg PO [facility] Last Admin: 09/29/21 20:03 Dose: 100 mg Documented by: Piperacillin Sod/Tazobactam (Sod 3.375 gm/ Sodium Chloride) 100 mls @ 25 mls/hr IVPB Q12HR [facility]; Protocol Last Admin: 09/30/21 07:05 Dose: 25 mls/hr Documented by: Insulin Aspart (Insulin Aspart (Novolog) 100 Unit/Ml Vial) 0 unit SQ Q6HR [facility]; Protocol Last Admin: 09/30/21 17:21 Dose: Not Given Documented by: Metoprolol Tartrate (Metoprolol Tartrate 50 Mg Tab) 50 mg PO BID [facility] Last Admin: 09/30/21 07:05 Dose: 50 mg Documented by: Miscellaneous Information (Potassium Replacement Protocol 1 Each Misc) 1 each MISCELLANE DAILY PRN; Protocol PRN Reason: Per Protocol Naloxone HCl (Naloxone 0.4 Mg/Ml 1 Ml Vial) 0.2 mg IV Q2M PRN PRN Reason: Opioid Reversal Tamsulosin HCl (Tamsulosin 0.4 Mg Cap.Er.24h) 0.4 mg PO PC-SUPPER [facility] Last Admin: 09/30/21 17:21 Dose: 0.4 mg Documented by: Past medical history to include: COPD, asthma, diabetes, hypertension, hyperlipidemia, obstructive sleep apnea uses CPAP, herniated disc uses injections, pneumonia June 2021 patient intubated Social history: Alcohol occasionally. Occasional cigar. Marijuana occasionally. . At rehab Family history: Skin cancer, macular degeneration Physical examination: VITAL SIGNS: 98.1, 96, 17, 126/78, 98% room air GENERAL: laying in bed, awake, tired EYES: Pupils equal. Conjunctiva normal. HEENT: External appearance of nose and ears normal, oral cavity endotracheal tube NECK: JVD not raised; masses not palpable. HEART: First and second heart sounds are normal; edema. LUNGS: Respiratory rate increased; decreased breath sounds ABDOMEN: Soft, some tenderness, no guarding rigidity GRETCHEN drain, binder liver spleen not palpable, no masses palpable. PSYCH: Answering questions appropriately. Mood and affect normal MUSCULOSKELETAL:No Clubbing/cyanosis;muscles-grossly intact NEUROLOGICAL: Cranial nerves grossly intact; no facial asymmetry, able to elevate upper extremity partly. Only slight movement of the lower extremity. INVESTIGATIONS, reviewed in the clinical context: September 30: White count 6.9 hemoglobin 7.8 potassium 4.2 creatinine 2.86 September 29: White count 6.1 hemoglobin 7.6 potassium 3.2 creatinine 4.3 to September 28: White count 8.1 hemoglobin 8.3 potassium 4.1 creatinine 3.44 White count 6.8 hemoglobin 13.8 platelets 244 sodium 136 potassium 4.9 BUN 40 creatinine 3.41. EKG tracing personally reviewed by me-sinus rhythm, right bundle branch block. Some T waves abnormalities Chest x-ray film personally reviewed by me-possible chronic changes Blood Glucose 36 Assessment and plan: -Severe hypotension, from acute kidney injury from decreased oral intake: Better -Acute metabolic encephalopathy : Better Seen by Neurology -Chronic congestive heart failure. From diastolic dysfunction EF 55-60%: Hold diuretics for now -Acute kidney injury ATN from hypotension: On renal replacement therapy on hemodialysis -Acute metabolic acidosis from worsening renal failure: Better bicarbonate drip-discontinued. Oral bicarbonate -Acute severe hyperkalemia from metabolic acidosis: Better -Sinus tachycardia likely from sepsis -Anorexia multifactorial: Did not respond to Marinol. Calorie chart is being done. Patient declined PEG tube. Trying to increase his oral intake. -Gangrenous cholecystitis followed by cholecystectomy. IV Zosyn. Completed course Cholecystectomy on September [address] Jackson -Sepsis. Secondary to gangrenous cholecystitis Zosyn. Changed to Augmentin -Critical care myopathy: Slow to respond PTOT. -Obesity BMI 51.4 -Adjustment disorder Seen by psychiatry. No medications. -Essential hypertension,: Lopressor 50 mg twice a day -Restless leg syndrome Requip .25 mg daily at bedtime -Diabetes mellitus type 2 on oral hypoglycemic, uncontrolled with hypoglycemia: Slow to respond Hold of oral hypoglycemic. Follow Accu-Cheks. -Hyperlipidemia Hold off Zocor because of muscle weakness -BPH Flomax 0.4 mg daily -COPD Advair 250/50 one puff twice a day [currently held]. DuoNeb 4 times a day -Chronic medical debility from recent protracted hospitalization PTOT -Full code Not eating adequate. But does not want PEG tube. Care was discussed length with the patient and at the bedside. Patient to go to rehab on Monday.
[2021-09-30] MEDS: GABAPENTIN 100 MG CAP PO SCH (21:32)
[2021-09-30] MEDS: FAMOTIDINE 20 MG TAB PO SCH (21:32)
[2021-10-01 00:12] LABS: Glucose,Whole Blood 100 mg/dL (75-99)
[2021-10-01] MEDS: INSULIN ASPART (NovoLOG) 100 UNIT/ML VIAL SQ SCH ×4 (00:37→17:05)
[2021-10-01 05:28] LABS: Glucose,Whole Blood 102 mg/dL (75-99)
[2021-10-01] MEDS: IPRATROPIUM-ALBUTEROL 3 ML NEB INHALATION SCH ×3 (08:02→15:37)
[2021-10-01] MEDS: PIPERACILLIN-TAZOBACTAM 3.375 GM in SODIUM CHLORIDE 0.9% 100 ML IVPB SCH (08:35)
[2021-10-01] MEDS: METOPROLOL TARTRATE 50 MG TAB PO SCH (08:35)
[2021-10-01 08:37] VITALS: RESP 18
--- NOTE | 2021-10-01 10:35 | P.PN ---
Subjective Progress Note Date: 10/01/21 CHIEF COMPLAINT: Abdominal pain HISTORY OF PRESENT ILLNESS: Patient denies any abdominal pain. Denies any nausea or vomiting. Still having poor oral intake. He is declining PEG tube placement. Afebrile. labs pending. Patient receiving hemodialysis today. Possible discharge to ECF today. labs pending PHYSICAL EXAM: VITAL SIGNS: Reviewed. GENERAL: No acute distress HEENT: Moist buccal mucosa. Head is atraumatic, normocephalic. ABDOMEN: Soft. Nondistended. Incision site clean dry and intact. The lateral aspect of the dressing did have some dried blood noted. Old GRETCHEN drain site is healing. ASSESSMENT: 1. Acute gangrenous cholecystitis status post open cholecystectomy 2. Acute kidney injury requiring hemodialysis 3. Anemia 4. Poor oral intake PLAN: -Removed every other staple and sutures removed today -Patient is declining PEG tube placement at this time -If patient's oral intake remains poor we will reassess for possible PEG tube placement next week -Patient can have the rest of his minh removed in one week at the [facility] -Continue supportive care -Okay to switch over to Augmentin from surgical standpoint -Patient can be discharged from surgical standpoint if medically cleared Physician Licensed Social Worker note has been reviewed by physician. Signing provider agrees with the documented findings, assessment, and plan of care. Objective - Vital Signs Vital signs: Vital Signs Temp 98.2 F 10/01/21 08:35 Pulse 103 H 10/01/21 08:35 Resp 18 10/01/21 08:35 BP 143/86 10/01/21 08:35 Pulse Ox 96 10/01/21 08:35 Intake & Output 09/30/21 10/01/21 10/01/21 18:59 06:59 18:59 Output Total 300 Balance -300 Weight 159.4 kg Output: Urine 300 Other: Voiding Method Indwelling Catheter Indwelling Catheter Indwelling Catheter ABP, PAP, CO, CI - Last Documented Arterial Blood Pressure 131/60 - Labs CBC & Chem 7: 09/30/21 10:26 09/30/21 10:26 Labs: Abnormal Lab Results - Last 24 Hours (Table) 09/30/21 09/30/21 09/30/21 Range/Units 10:26 10:26 11:26 RBC 2.64 L (4.30-5.90) m/uL Hgb 7.8 L (13.0-17.5) gm/dL Hct 24.5 L (39.0-53.0) % RDW 18.7 H (11.5-15.5) % Chloride 114 H (98-107) mmol/L Creatinine 2.86 H (0.66-1.25) mg/dL Glucose 118 H (74-99) mg/dL POC Glucose (mg/dL) 116 H (75-99) mg/dL Calcium 7.7 L (8.4-10.2) mg/dL 09/30/21 10/01/21 10/01/21 Range/Units 17:18 00:09 05:25 RBC (4.30-5.90) m/uL Hgb (13.0-17.5) gm/dL Hct (39.0-53.0) % RDW (11.5-15.5) % Chloride (98-107) mmol/L Creatinine (0.66-1.25) mg/dL Glucose (74-99) mg/dL POC Glucose (mg/dL) 153 H 100 H 102 H (75-99) mg/dL Calcium (8.4-10.2) mg/dL
--- NOTE | 2021-10-01 11:04 | P.PN ---
Subjective Progress Note Date: 09/30/21 Patient was seen for a follow-up. Patient's was also present. Patient is doing better. Patient states that he was able to sit on the side of the bed for 40 seconds without any support. Denies any new neurological problems. Patient had recently undergone laparoscopic cholecystectomy for gangrenous cholecystitis. He required open cholecystectomy. Patient continues to have weakness of the lower extremities. Upper extremities have improved. Offers no other complaints. Objective - Vital Signs Vital signs: Vital Signs Temp 98.5 F 09/30/21 07:08 Pulse 87 09/30/21 12:04 Resp 18 09/30/21 07:08 BP 119/79 09/30/21 07:08 Pulse Ox 100 09/30/21 08:34 Intake & Output 09/29/21 09/30/21 09/30/21 18:59 06:59 18:59 Output Total 2500 300 Balance -2500 -300 Weight 159.4 kg 159.4 kg Output: Urine 300 Hemodialysis 2500 Other: Voiding Method Indwelling Catheter Indwelling Catheter # Bowel Movements 1 ABP, PAP, CO, CI - Last Documented Arterial Blood Pressure 131/60 - Exam Patient is alert and awake. Speech and language functions are normal. Cranial nerves normal. Muscle strength testing deltoid (right/left) 3+/2, biceps 4-/4+, triceps 4/4, speech language pathologist 4/4. In the lower extremity hip flexion 2/2, ankle dorsiflexion 1-2/1-2, plantarflexion 4+/3+. Reflexes (right/left) biceps 1+2/2, brachioradialis 1+/1, triceps 1+/0, knee 1/1, ankles 0/0. Plantars are downgoing. Positive peripheral edema. Abdomen is soft. - Labs CBC & Chem 7: 09/30/21 10:26 09/30/21 10:26 Labs: Abnormal Lab Results - Last 24 Hours (Table) 09/29/21 09/30/21 09/30/21 Range/Units 16:05 00:00 05:59 RBC (4.30-5.90) m/uL Hgb (13.0-17.5) gm/dL Hct (39.0-53.0) % RDW (11.5-15.5) % Chloride (98-107) mmol/L Creatinine (0.66-1.25) mg/dL Glucose (74-99) mg/dL POC Glucose (mg/dL) 179 H 134 H 149 H (75-99) mg/dL Calcium (8.4-10.2) mg/dL 09/30/21 09/30/21 09/30/21 Range/Units 10:26 10:26 11:26 RBC 2.64 L (4.30-5.90) m/uL Hgb 7.8 L (13.0-17.5) gm/dL Hct 24.5 L (39.0-53.0) % RDW 18.7 H (11.5-15.5) % Chloride 114 H (98-107) mmol/L Creatinine 2.86 H (0.66-1.25) mg/dL Glucose 118 H (74-99) mg/dL POC Glucose (mg/dL) 116 H (75-99) mg/dL Calcium 7.7 L (8.4-10.2) mg/dL Assessment and Plan Assessment: * Altered mental status, most likely due to toxic metabolic encephalopathy, much improved. * Acute kidney injury due to transient severe hypotension, started on dialysis on 09/11/2021, still on dialysis. * Status post cholecystectomy. * Generalized weakness most likely related to critical illness neuropathy/myopathy. * Anemia * Morbid obesity, BMI 41.8 * History of respiratory failure on mechanical ventilator. * Diabetes type 2 * Hyperlipidemia * Hypertension * COPD Plan: * Patient is getting stronger. His reflexes have improved. No clinical evidence of Rubina Davidson. Patient most likely has critical illness neuropathy, which hopefully will improve with therapy. Patient is already showing clinical improvement. * CT head showed no acute process. There is improvement in the ethmoid and sphenoid sinusitis compared to old exam. There is bilateral chronic mastoiditis similar to old exam. There is significant clearing of the opacification of the middle ear cavity compared to the last exam. I personally reviewed computed tomography scan of the head and agree with the findings. Slight prominence of the ventricles as compared to the amount of cortical atrophy. * Treatment of medical conditions as per IM and other specialties * Thiamine 90 (38-122), B6 9(5-50). * Nephrology following closely. * Avoid any sedatives, hypnotics or narcotics. * Patient on SCDs for DVT prophylaxis. * Neurologically cleared for transfer to Subacute rehab when medically cleared. * Neurology will sign off. Please reconsult if any concerns.
[2021-10-01 11:37] LABS: Glucose,Whole Blood 133 mg/dL (75-99)
--- NOTE | 2021-10-01 14:12 | P.DS ---
Providers Date of admission: 09/09/21 19:33 Expected date of discharge: 10/01/21 Attending physician: Ryan Nelson Consults: 09/10/21 21:00 Consult Physician Routine Consulting Provider: Clint Jackson Consult Reason/Comments: Abdominal pain Do you want consulting provider notified?: Yes, Notify in am 09/11/21 14:36 Consult Physician Routine Consulting Provider: Gabe Rasheed Consult Reason/Comments: ascencion Do you want consulting provider notified?: Yes 09/11/21 14:44 Consult Physician Routine Consulting Provider: Richy Younger Consult Reason/Comments: Depression Do you want consulting provider notified?: Yes 09/11/21 19:46 Consult Physician Routine Consulting Provider: Beltran Cordova Consult Reason/Comments: icu management Do you want consulting provider notified?: Already Contacted 09/11/21 21:35 Consult Physician Stat Consulting Provider: Jefe William Consult Reason/Comments: New dialysis Cath Do you want consulting provider notified?: Yes 09/16/21 14:19 Consult Physician Urgent Consulting Provider: Pedro Edmond Consult Reason/Comments: Lethargy Do you want consulting provider notified?: Yes Primary care physician: Seda Schneider Procedures: Chief Complaint: Tired This is a 61-year-old patient, follows with Dr. Seda Schneider. Chronic stable medical conditions include diabetes, , hyperlipidemia, obstructive sleep apnea uses CPAP, herniated disc / injections,. Patient was in the hospital from 06/26/2021 through July 16 Admitted with pneumonia, severe hypothermia, acute hypoxic respiratory failure, possible sepsis, possible acute congestive heart failure exacerbation. Was intubated. Was discharged on intermittent BiPAP. [place] to have possible viral pneumonitis. Was negative for COVID. Was discharged to rehab. At the rehab patient had a poor appetite. Not really able to walk. Patient was at director of market analysis up as found a very low blood pressure. Admitted. Denies any fever and chills. Actually eating better here. Has been having daily bowel movements. Occasional diarrhea. Does feel tired and rundown. Admitted with severe hypotension, acute kidney injury, hypoglycemia. Diuretics were held. IV hydration. PTOT. Patient did get bicarbonate drip. Doxycycline added. Moved to the ICU. September 12 patient started on hemodialysis. Poor urine output. Coughing up some yellow sputum. Add doxycycline for acute bronchitis. Patient had cholecystectomy on September 17 for a gangrenous gallbladder. Had a GRETCHEN drain that was eventually taken out. finished a course of IV Zosyn. Did give dose of DDAVP. remain oliguric. has not been eating much. Discussed with the patient about PEG tube. Due to poor oral intake. He has declined the same.. Also seen by dietitian. October 01: Patient was accepted at rehab. This discussed with him and the the need for a PEG tube if he changes his mind. Oral intake encouraged. Discussed with director case. Patient is set up for hemodialysis Monday and Monday. Antibiotic course completed. Cholecystectomy incision site stitches alternative removed today. Patient also seen by psychiatry-felt to have adjustment disorder.. Past medical history to include: COPD, asthma, diabetes, hypertension, hyperlipidemia, obstructive sleep apnea uses CPAP, herniated disc uses injections, pneumonia June 2021 patient int ubated Social history: Alcohol occasionally. Occasional cigar. Marijuana occasionally. . At rehab Family history: Skin cancer, macular degeneration Physical examination: VITAL SIGNS: 98.2, 100, 18, 143/86, 96% room air GENERAL: laying in bed, awake, tired EYES: Pupils equal. Conjunctiva normal. HEENT: External appearance of nose and ears normal, oral cavity endotracheal tube NECK: JVD not raised; masses not palpable. HEART: First and second heart sounds are normal; edema. LUNGS: Respiratory rate increased; decreased breath sounds ABDOMEN: Soft, some tenderness, no guarding rigidity GRETCHEN drain, binder liver spleen not palpable, no masses palpable. PSYCH: Answering questions appropriately. Mood and affect normal MUSCULOSKELETAL:No Clubbing/cyanosis;muscles-grossly intact NEUROLOGICAL: Cranial nerves grossly intact; no facial asymmetry, able to elevate upper extremity partly. Only slight movement of the lower extremity. INVESTIGATIONS, reviewed in the clinical context: September 30: White count 6.9 hemoglobin 7.8 potassium 4.2 creatinine 2.86 White count 6.8 hemoglobin 13.8 platelets 244 sodium 136 potassium 4.9 BUN 40 creatinine 3.41. EKG tracing personally reviewed by me-sinus rhythm, right bundle branch block. Some T waves abnormalities Chest x-ray film personally reviewed by me-possible chronic changes Blood Glucose 36 Assessment and plan: -Severe hypotension, from acute kidney injury from decreased oral intake: Better -Acute metabolic encephalopathy : Better Seen by Neurology -Chronic congestive heart failure. From diastolic dysfunction EF 55-60%: Hold diuretics for now -Acute kidney injury ATN from hypotension: On renal replacement therapy Started on hemodialysis -Acute metabolic acidosis from worsening renal failure: Better bicarbonate drip-discontinued. Oral bicarbonate -Acute severe hyperkalemia from metabolic acidosis: Better -Sinus tachycardia likely from sepsis -Anorexia multifactorial: Did not respond to Marinol. Calorie chart is being done. Patient declined PEG tube. Trying to increase his oral intake. -Gangrenous cholecystitis followed by cholecystectomy. IV Zosyn- Completed course. Cholecystectomy on September [address] Jackson -Sepsis. Secondary to gangrenous cholecystitis Zosyn. 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 Seen by neurology. -Obesity BMI 51.4 -Adjustment disorder Seen by psychiatry. No medications. -Essential hypertension,: Lopressor 50 mg twice a day -Restless leg syndrome Requip .25 mg daily at bedtime -Diabetes mellitus type 2 on oral hypoglycemic, uncontrolled with hypoglycemia: Slow to respond Hold of oral hypoglycemic. Follow Accu-Cheks. -Hyperlipidemia Zocor -BPH Flomax 0.4 mg daily -COPD Advair 250/50 one puff twice a day [currently held]. DuoNeb 4 times a day -Chronic medical debility from recent protracted hospitalization PTOT -Full code Disposition: Rehab at [facility] Patient Condition at Discharge: Serious Plan - Discharge Summary Discharge Rx Participant: No New Discharge Prescriptions: New Darbepoetin Arthur [Aranesp] 40 mcg SQ Q7D each Gabapentin [Neurontin] 100 mg PO HS #3 cap INSULIN ASPART (NovoLOG) [NovoLOG (formulary)] 0 unit SQ Q6HR ml Acetaminophen Tab [Tylenol] 650 mg PO Q6HR PRN tab PRN Reason: Mild Pain Or Fever > 100.5 Continue Aspirin EC [Ecotrin Low Dose] 81 mg PO DAILY rOPINIRole HCL [Requip] 1 mg PO HS Tamsulosin [Flomax] 0.4 mg PO DAILY@1400 Metoprolol Tartrate [Lopressor] 50 mg PO BID tab Multivitamins, Thera [Multivitamin (formulary)] 1 tab PO DAILY Ascorbic Acid [Vitamin C] 1,000 mg PO DAILY@0800 Ipratropium-Albuterol Nebulize [Duoneb 0.5 mg-3 mg/3 ml Soln] 3 ml INHALATION RT-QID ml Folic Acid 1 mg PO DAILY tab hydrALAZINE HCL 50 mg PO BID@0500,1600 Cholecalciferol [Vitamin D3 (25 Mcg = 1000 Iu)] 50 mcg PO DAILY Changed Famotidine [Pepcid] 20 mg PO HS #0 tab Discontinued glipiZIDE [Glucotrol] 5 mg PO DAILY metFORMIN HCL [Glucophage] 1,000 mg PO BID lisinopriL [Zestril] 10 mg PO DAILY #0 tab Gabapentin [Neurontin] 300 mg PO BID hydrALAZINE HCL 25 mg PO BID@0500,1600 Zinc Sulfate [Orazinc] 220 mg PO DAILY metroNIDAZOLE [Flagyl] 500 mg PO DAILY Furosemide [Lasix] 40 mg PO DAILY tab Apixaban [Eliquis] 5 mg PO BID Potassium Chloride ER [K-Dur 20] 20 meq PO DAILY Fluticasone/Vilanterol [Breo Ellipta 100-25 Mcg Inhaler] 1 puff INHALATION RT-DAILY Discharge Medication List Aspirin EC [Ecotrin Low Dose] 81 mg PO DAILY 08/23/18 [History] Tamsulosin [Flomax] 0.4 mg PO DAILY@1400 08/23/18 [History] rOPINIRole HCL [Requip] 1 mg PO HS 08/23/18 [History] Folic Acid 1 mg PO DAILY tab 07/16/21 [Rx] Ipratropium-Albuterol Nebulize [Duoneb 0.5 mg-3 mg/3 ml Soln] 3 ml INHALATION RT-QID ml 07/16/21 [Rx] Metoprolol Tartrate [Lopressor] 50 mg PO BID tab 07/16/21 [Rx] Ascorbic Acid [Vitamin C] 1,000 mg PO DAILY@0800 09/09/21 [History] Cholecalciferol [Vitamin D3 (25 Mcg = 1000 Iu)] 50 mcg PO DAILY 09/09/21 [History] Multivitamins, Thera [Multivitamin (formulary)] 1 tab PO DAILY 09/09/21 [History] hydrALAZINE HCL 50 mg PO BID@0500,1600 09/09/21 [History] Acetaminophen Tab [Tylenol] 650 mg PO Q6HR PRN tab 10/01/21 [Rx] Darbepoetin Arthur [Aranesp] 40 mcg SQ Q7D each 10/01/21 [Rx] Famotidine [Pepcid] 20 mg PO HS #0 tab 10/01/21 [Rx] Gabapentin [Neurontin] 100 mg PO HS #3 cap 10/01/21 [Rx] INSULIN ASPART (NovoLOG) [NovoLOG (formulary)] 0 unit SQ Q6HR ml 10/01/21 [Rx] Follow up Appointment(s)/Referral(s): Ian Reddy DO [STAFF PHYSICIAN] - 1-2 Days [facility] [NON-STAFF] - 10/04/21 6:15 am (Normal dialysis days will be Tuesdays, , and Saturdays at 11:30 a.m. Patient will have a one time treatment on 10/04/21 at 06:30a.m. Patient to arrive at 6:15a.m. Treatment will be done at 09:15a.m. ) Seda Schneider MD [Primary Care Provider] - As Needed Activity/Diet/Wound Care/Special Instructions: Remove the rest of the minh from the incision in one week at [facility]
[2021-10-01 16:42] LABS: Glucose,Whole Blood 125 mg/dL (75-99)
--- NOTE | 2021-10-01 16:55 | P.PN ---
Subjective Patient is seen for follow-up for acute kidney injury and hyperkalemia. He was significantly hypotensive on initial admission. Serum creatinine had peaked at 3.7 mg/dL but due to the potassium staying elevated at 7.3 patient was dialyzed . Urine output had improved and dialysis was held to monitor for possible recovery of renal function but urine output remained low and therefore patient has been maintained on dialysis. Patient was taken to OR on 09/17/21 and had open cholecystectomy. He was found to have acute gangrenous cholecystitis and necrosis of the gallbladder wall. Postoperatively patient has been transferred to the ICU. He remains intubated. Poor urine output Patient is seen on telemetry floor. He has been transferred out of the ICU.. Patient remains hemodialysis dependent with poor urine output. Blood pressure is improved and he is off of pressors. Extubated on 09/22/2021 Urine output slightly increased. Patient has a Smith catheter.. Overall patient is feeling much better . Plans for possible discharge tomorrow. Patient will be maintained on hemodialysis on a TTS schedule as outpatient Objective - Vital Signs Vital signs: Vital Signs Temp 98.0 F 10/01/21 14:04 Pulse 95 10/01/21 14:04 Resp 18 10/01/21 14:04 BP 127/79 10/01/21 14:04 Pulse Ox 95 10/01/21 14:04 Intake & Output 09/30/21 10/01/21 10/01/21 18:59 06:59 18:59 Output Total 300 Balance -300 Weight 159.4 kg Output: Urine 300 Other: Voiding Method Indwelling Catheter Indwelling Catheter Indwelling Catheter ABP, PAP, CO, CI - Last Documented Arterial Blood Pressure 131/60 - Exam Patient is awake comfortable. He is not in any acute distress Examination of the heart S1 and S2 Examination lungs bilateral breath sounds are heard Abdomen is soft nontender obese Examination lower extremities shows chronic skin changes, 1+ edema noted. RECREATION TEACHER exam is grossly intact - Labs CBC & Chem 7: 09/30/21 10:26 09/30/21 10:26 Labs: Abnormal Lab Results - Last 24 Hours (Table) 09/30/21 10/01/21 10/01/21 Range/Units 17:18 00:09 05:25 POC Glucose (mg/dL) 153 H 100 H 102 H (75-99) mg/dL 10/01/21 10/01/21 Range/Units 11:36 16:40 POC Glucose (mg/dL) 133 H 125 H (75-99) mg/dL Assessment and Plan Assessment: 1. Hyperkalemia associated with acute kidney injury use of JENSEN inhibitor's prior to admission currently improved. 2. Acute kidney injury secondary to ATN from hypotension, previous creatinine 0.7 on 08/10/2021. Started dialysis on 09/12/2021 for severe hyperkalemia. Urine output is poor postoperatively and patient remains hemodialysis dependent. Urine output slightly improved over the last few days. 3. Metabolic acidosis associated with acute kidney injury and recent shock and hypotension. Resolved 4. Acute cholecystitis with gangrenous bladder status post open cholecystectomy on 09/17/2021 5. Acute hypoxic respiratory failure, status post extubation on 09/22/2021, continuing to improve 6. Volume overload slowly improving with dialysis Plan: HD today. He will have a short treatment on Monday as outpatient and his regular schedule will be Monday's at the [place] unit.
[2021-10-01 17:06] VITALS: BP 136/75; PULSE 97; TEMP 98.2
[2021-10-01] MEDS: TAMSULOSIN 0.4 MG CAP.ER.24H PO SCH (17:11)
== END 2021-10-01 19:26 | DRG 853 ==
LOC: EC 15:34 → 5NMEDONC 19:33 → 2SICU 09-11 17:24 → 4SSUR 09-13 13:46 → 2SICU 09-17 13:12 → 4SSUR 09-25 16:59
PROVIDERS: ADMIT Hospitalist; ATTEND Hospitalist
PROC: 0BH17EZ Insertion of Endotracheal Airway into Trachea, Via Natural or Artificial Opening (ICD-10-PCS; 2021-09-17)
PROC: 5A1955Z Respiratory Ventilation, Greater than 96 Consecutive Hours (ICD-10-PCS; 2021-09-17)
PROC: 5A09357 Assistance with Respiratory Ventilation, Less than 24 Consecutive Hours, Continuous Positive Airway Pressure (ICD-10-PCS; 2021-09-17)
PROC: 3E043XZ Introduction of Vasopressor into Central Vein, Percutaneous Approach (ICD-10-PCS; 2021-09-17)
PROC: 0FT40ZZ Resection of Gallbladder, Open Approach (ICD-10-PCS; principal; 2021-09-17 08:45)
PROC: 0FJ44ZZ Inspection of Gallbladder, Percutaneous Endoscopic Approach (ICD-10-PCS; principal; 2021-09-17 08:45)
PROC: 30233N1 Transfusion of Nonautologous Red Blood Cells into Peripheral Vein, Percutaneous Approach (ICD-10-PCS; 2021-09-19)
PROC: 06PY33Z Removal of Infusion Device from Lower Vein, Percutaneous Approach (ICD-10-PCS; 2021-09-22)
PROC: 06HM33Z Insertion of Infusion Device into Right Femoral Vein, Percutaneous Approach (ICD-10-PCS; 2021-09-22)
PROC: 4A133B1 Monitoring of Arterial Pressure, Peripheral, Percutaneous Approach (ICD-10-PCS; 2021-09-27)
PROC: 4A133J1 Monitoring of Arterial Pulse, Peripheral, Percutaneous Approach (ICD-10-PCS; 2021-09-27)
PROC: 03HY32Z Insertion of Monitoring Device into Upper Artery, Percutaneous Approach (ICD-10-PCS; 2021-09-27)
PROC: 02HV33Z Insertion of Infusion Device into Superior Vena Cava, Percutaneous Approach (ICD-10-PCS; 2021-09-28)
PROC: 02HV33Z Insertion of Infusion Device into Superior Vena Cava, Percutaneous Approach (ICD-10-PCS; 2021-09-28)
PROC: 5A1D70Z Performance of Urinary Filtration, Intermittent, Less than 6 Hours Per Day (ICD-10-PCS; 2021-09-28)
PROC: 06PY33Z Removal of Infusion Device from Lower Vein, Percutaneous Approach (ICD-10-PCS; 2021-09-29)
PROC: 06H033Z Insertion of Infusion Device into Inferior Vena Cava, Percutaneous Approach (ICD-10-PCS; 2021-09-29)
DX: A41.9 Sepsis, unspecified organism (principal); G92.8 Other toxic encephalopathy; J96.01 Acute respiratory failure with hypoxia; N17.0 Acute kidney failure with tubular necrosis; N18.6 End stage renal disease; D62 Acute posthemorrhagic anemia; E87.2 Acidosis; G62.81 Critical illness polyneuropathy; G72.81 Critical illness myopathy; I13.0 Hypertensive heart and chronic kidney disease with heart failure and stage 1 through stage 4 chronic kidney disease, or unspecified chronic kidney disease; I50.32 Chronic diastolic (congestive) heart failure; J44.0 Chronic obstructive pulmonary disease with (acute) lower respiratory infection; J98.11 Atelectasis; R18.8 Other ascites; Z68.43 Body mass index [BMI] 50.0-59.9, adult; K80.00 Calculus of gallbladder with acute cholecystitis without obstruction; E11.22 Type 2 diabetes mellitus with diabetic chronic kidney disease; E11.40 Type 2 diabetes mellitus with diabetic neuropathy, unspecified; E11.649 Type 2 diabetes mellitus with hypoglycemia without coma; Z20.822 Contact with and (suspected) exposure to COVID-19; E66.01 Morbid (severe) obesity due to excess calories; F32.A Depression, unspecified; L89.322 Pressure ulcer of left buttock, stage 2; L89.312 Pressure ulcer of right buttock, stage 2; K82.A1 Gangrene of gallbladder in cholecystitis; G25.81 Restless legs syndrome; G47.33 Obstructive sleep apnea (adult) (pediatric); I45.10 Unspecified right bundle-branch block; Z87.01 Personal history of pneumonia (recurrent); J20.9 Acute bronchitis, unspecified; F17.290 Nicotine dependence, other tobacco product, uncomplicated; R65.20 Severe sepsis without septic shock; E78.5 Hyperlipidemia, unspecified; N18.9 Chronic kidney disease, unspecified; N40.0 Benign prostatic hyperplasia without lower urinary tract symptoms; F43.20 Adjustment disorder, unspecified; E86.0 Dehydration; R15.9 Full incontinence of feces; Z53.31 Laparoscopic surgical procedure converted to open procedure; Z66 Do not resuscitate; Z79.01 Long term (current) use of anticoagulants; E87.5 Hyperkalemia; E87.6 Hypokalemia; Z79.4 Long term (current) use of insulin; Z79.51 Long term (current) use of inhaled steroids; Z79.82 Long term (current) use of aspirin; Z79.84 Long term (current) use of oral hypoglycemic drugs; Z79.899 Other long term (current) drug therapy; Z80.8 Family history of malignant neoplasm of other organs or systems; Z82.49 Family history of ischemic heart disease and other diseases of the circulatory system; Z85.828 Personal history of other malignant neoplasm of skin; Z86.718 Personal history of other venous thrombosis and embolism; Z81.8 Family history of other mental and behavioral disorders; Z98.52 Vasectomy status; Z98.890 Other specified postprocedural states; Z86.010 Personal history of colon polyps
CPT/HCPCS: 36415; 36558; 36600; 70450; 71045; 71046; 74022; 74176; 76705; 76770; 76937; 77001; 80048; 80053; 81001; 82272; 82533; 82550; 82805; 83605; 83735; 84100; 84132; 84207; 84425; 84443; 84484; 85025; 85027; 85610; 85730; 86706; 86850; 86900; 86901; 86920; 87040; 87324; 87340; 87635; 88304; 90935; 93005; 93306; 94002; 94003; 94640; 94760; 96361; 96365; 96366; 99285

== ENCOUNTER 2021-12-31 12:41 | Inpatient (IN) | payer OTHER ==
--- NOTE | 2021-12-31 13:17 | ED ---
General Adult HPI - General Chief complaint: Nausea/Vomiting/Diarrhea Stated complaint: Dehydration Time Seen by Provider: 12/31/21 12:45 Source: patient, EMS Mode of arrival: EMS Limitations: no limitations - History of Present Illness Initial comments: Dictation was produced using [employer] dictation software. please excuse any grammatical, word or spelling errors. Chief Complaint: 61-year-old male brought in from any [facility] [place] for dehydration, failure to thrive History of Present Illness: 61-year-old male he is a resident [facility] [place]. Patient has multiple comorbidities. Patient is not cooperative with providing history present illness. When asked why he is in the emergency room he states that everything. According to transfer documentation states that patient's lethargic and dehydrated. Patient has multiple comorbidities including chronic decubitus ulcer status post wound VAC placement. Patient admi tted in the past for chronic kidney disease, pneumonia hypertension sepsis. Patient is not taking any anticoagulation medications. Patient states that he has some vague abdominal pain that's of been chronic. Patient allegedly is in cue for any a feeding tube placed. When asked why patient doesn't want he states that just has no appetite. The ROS documented in this emergency department record has been reviewed and confirmed by me. Those systems with pertinent positive or negative responses have been documented in the HPI. All other systems are other negative and/or noncontributory. PHYSICAL EXAM: General Impression: Alert and oriented x3, not in acute distress HEENT: Normocephalic atraumatic, extra-ocular movements intact, pupils equal and reactive to light bilaterally, dry mucous membranes Cardiovascular: Heart regular rate and rhythm Chest: Able to complete full sentences, no retractions, no tachypnea Abdomen: abdomen soft, mild diffuse Dr. tenderness, non-distended, no orga nomegaly Musculoskeletal: Pulses present and equal in all extremities, no peripheral edema Motor: no focal deficits noted Neurological: CN II-XII grossly intact, no focal motor or sensory deficits noted Skin: Intact with no visualized rashes Psych: Normal affect and mood ED course: 61-year-old male presents to the emergency department for dehydration and lethargy. Vital Signs upon arrival shows heart rate of 125, rest vital signs within acceptable limits. Laboratory evaluation obtained. CBC, coag panel, metabolic panel was obtained. Metabolic panel shows derangement with sodium 123, non-gap acidosis with a bicarb of 15. Initial plan care blood glucose is 66. Patient was a difficult IV axis was given IM glucagon until IV access was obtained patient was then given dextrose. Clinical presentation consistent with metabolic derangement secondary to poor oral intake and failure to thrive. Patient given IV fluids. Patient requesting to be evaluated for feeding tube. Family and patient are agreeable to disposition plan. EKG interpretation: Ventricular rate 114,, sinus tachycardia, NJ interval 160, QS 142, QTC 498. No NJ prolongation, no QTC prolongation, no ST or T-wave changes noted. EKG compared to September 09 2021 showing no changes. Overall, this EKG is unremarkable - Related Data Home Medications Medication Instructions Recorded Confirmed Aspirin EC [Ecotrin Low Dose] 81 mg PO DAILY 08/23/18 09/09/21 Tamsulosin [Flomax] 0.4 mg PO DAILY@1400 08/23/18 09/09/21 rOPINIRole HCL [Requip] 1 mg PO HS 08/23/18 09/09/21 Ascorbic Acid [Vitamin C] 1,000 mg PO DAILY@0800 09/09/21 09/09/21 Cholecalciferol [Vitamin D3 (25 50 mcg PO DAILY 09/09/21 09/09/21 Mcg = 1000 Iu)] Multivitamins, Thera [Multivitamin 1 tab PO DAILY 09/09/21 09/09/21 (formulary)] hydrALAZINE HCL 50 mg PO BID@0500,1600 09/09/21 09/09/21 Previous Rx's Medication Instructions Recorded Folic Acid 1 mg PO DAILY tab 07/16/21 Ipratropium-Albuterol Nebulize 3 ml INHALATION RT-QID ml 07/16/21 [Duoneb 0.5 mg-3 mg/3 ml Soln] Metoprolol Tartrate [Lopressor] 50 mg PO BID tab 07/16/21 Acetaminophen Tab [Tylenol] 650 mg PO Q6HR PRN tab 10/01/21 Darbepoetin Arthur [Aranesp] 40 mcg SQ Q7D each 10/01/21 Famotidine [Pepcid] 20 mg PO HS #0 tab 10/01/21 Gabapentin [Neurontin] 100 mg PO HS #3 cap 10/01/21 INSULIN ASPART (NovoLOG) [NovoLOG 0 unit SQ Q6HR ml 10/01/21 (formulary)] Allergies Allergy/AdvReac Type Severity Reaction Status Date / Time No Known Allergies Allergy Verified 12/31/21 12:49 Review of Systems ROS Statement: Those systems with pertinent positive or pertinent negative responses have been documented in the HPI. ROS Other: All systems not noted in ROS Statement are negative. 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 History of Any Multi-Drug Resistant Organisms: None Reported Past Surgical History: Hernia Repair Additional Past Surgical History / Comment(s): hydrocelectomy, vasectomy, colonoscopy/polypectomy-benign. umbilical hernia repair, injections for herniated disc. Past Anesthesia/Blood Transfusion Reactions: No Reported Reaction Additional Past Anesthesia/Blood Transfusion Reaction / Comment(s): clausterphobia. pt stated has never had a blood transfusion Past Psychological History: No Psychological Hx Reported Smoking Status: Never smoker Past Alcohol Use History: Occasional Past Drug Use History: Marijuana - Past Family History Mother Family Medical History: Cancer, Eye Disorder Additional Family Medical History / Comment(s): skin cancer, macular degeneration Father Family Medical History: Coronary Artery Disease (CAD), Dementia Additional Family Medical History / Comment(s): cabg, stents, uti/sepsis General Exam Limitations: no limitations Course Vital Signs 12/31/21 12/31/21 12:45 14:23 Temperature 97.4 F L Pulse Rate 125 H 123 H Respiratory 22 16 Rate Blood Pressure 123/78 104/80 O2 Sat by Pulse 98 98 Oximetry Medical Decision Making - Lab Data Result diagrams: 12/31/21 13:44 12/31/21 13:44 Lab Results 12/31/21 12/31/21 12/31/21 Range/Units 13:13 13:40 13:44 WBC 5.4 (3.8-10.6) k/uL RBC 4.42 (4.30-5.90) m/uL Hgb 11.9 L (13.0-17.5) gm/dL Hct 38.2 L (39.0-53.0) % MCV 86.4 (80.0-100.0) fL MCH 27.0 (25.0-35.0) pg MCHC 31.2 (31.0-37.0) g/dL RDW 16.9 H (11.5-15.5) % Plt Count 442 (150-450) k/uL MPV 6.9 Neutrophils % 75 % Lymphocytes % 20 % Monocytes % 4 % Eosinophils % 0 % Basophils % 0 % Neutrophils # 4.1 (1.3-7.7) k/uL Lymphocytes # 1.1 (1.0-4.8) k/uL Monocytes # 0.2 (0-1.0) k/uL Eosinophils # 0.0 (0-0.7) k/uL Basophils # 0.0 (0-0.2) k/uL Hypochromasia Slight Anisocytosis Slight PT (9.0-12.0) sec INR (<1.2) APTT (22.0-30.0) sec Sodium (137-145) mmol/L Potassium (3.5-5.1) mmol/L Chloride (98-107) mmol/L Carbon Dioxide (22-30) mmol/L Anion Gap mmol/L BUN (9-20) mg/dL Creatinine (0.66-1.25) mg/dL Est GFR (CKD-EPI)AfAm (>60 ml/min/1.73 sqM) Est GFR (CKD-EPI)NonAf (>60 ml/min/1.73 sqM) Glucose (74-99) mg/dL POC Glucose (mg/dL) 66 L 93 (70-110) mg/dL POC Glu [employer] Consultant Marti Marc Matthew Plasma Lactic Acid Hayden (0.7-2.0) mmol/L Calcium (8.4-10.2) mg/dL Ionized Calcium Sukhjinder (4.5-5.3) mg/dL Magnesium (1.6-2.3) mg/dL Total Bilirubin (0.2-1.3) mg/dL AST (17-59) U/L ALT (4-49) U/L Alkaline Phosphatase (38-126) U/L Total Protein (6.3-8.2) g/dL Albumin (3.5-5.0) g/dL 12/31/21 12/31/21 12/31/21 Range/Units 13:44 13:44 13:44 WBC (3.8-10.6) k/uL RBC (4.30-5.90) m/uL Hgb (13.0-17.5) gm/dL Hct (39.0-53.0) % MCV (80.0-100.0) fL MCH (25.0-35.0) pg MCHC (31.0-37.0) g/dL RDW (11.5-15.5) % Plt Count (150-450) k/uL MPV Neutrophils % % Lymphocytes % % Monocytes % % Eosinophils % % Basophils % % Neutrophils # (1.3-7.7) k/uL Lymphocytes # (1.0-4.8) k/uL Monocytes # (0-1.0) k/uL Eosinophils # (0-0.7) k/uL Basophils # (0-0.2) k/uL Hypochromasia Anisocytosis PT 11.4 (9.0-12.0) sec INR 1.1 (<1.2) APTT 24.0 (22.0-30.0) sec Sodium 123 L (137-145) mmol/L Potassium 4.9 (3.5-5.1) mmol/L Chloride 93 L (98-107) mmol/L Carbon Dioxide 15 L (22-30) mmol/L Anion Gap 15 mmol/L BUN 17 (9-20) mg/dL Creatinine 0.86 (0.66-1.25) mg/dL Est GFR (CKD-EPI)AfAm >90 (>60 ml/min/1.73 sqM) Est GFR (CKD-EPI)NonAf >90 (>60 ml/min/1.73 sqM) Glucose 91 (74-99) mg/dL POC Glucose (mg/dL) (70-110) mg/dL POC Glu [employer]rix Consultant ID Plasma Lactic Acid Hayden 1.1 (0.7-2.0) mmol/L Calcium 8.4 (8.4-10.2) mg/dL Ionized Calcium Sukhjinder 4.4 L (4.5-5.3) mg/dL Magnesium 1.6 (1.6-2.3) mg/dL Total Bilirubin 1.2 (0.2-1.3) mg/dL AST 58 (17-59) U/L ALT 27 (4-49) U/L Alkaline Phosphatase 218 H (38-126) U/L Total Protein 5.6 L (6.3-8.2) g/dL Albumin 2.4 L (3.5-5.0) g/dL Disposition Clinical Impression: Failure to thrive Disposition: ADMITTED IP TO THIS HOSP Condition: Fair Referrals: Seda Schneider MD [Primary Care Provider] - 1-2 days Decision Time: 15:00
[2021-12-31] MEDS ORDERED: GLUCAGON 1 MG/ML VIAL IM STA (13:18)
[2021-12-31 13:24] LABS: Glucose,Whole Blood 66 mg/dL (70-110)
[2021-12-31 13:42] LABS: Glucose,Whole Blood 93 mg/dL (70-110)
[2021-12-31] MEDS ORDERED: DEXTROSE 50% SYRINGE 50 ML IVP STA (13:42)
[2021-12-31 13:58] LABS: Anisocytosis Slight; Basophils % (A) 0 %; Eosinophils % (A) 0 %; HCT 38.2 % (39.0-53.0); HGB 11.9 gm/dL (13.0-17.5); Hypochromasia Slight; Lymphocytes # (A) 1.1 k/uL (1.0-4.8); Lymphocytes % (A) 20 %; MCHC 31.2 g/dL (31.0-37.0); MCV 86.4 fL (80.0-100.0); Mean Platelet Volume 6.9; Monocytes # (A) 0.2 k/uL (0-1.0); Monocytes % (A) 4 %; Neutrophils # (A) 4.1 k/uL (1.3-7.7); Neutrophils % (A) 75 %; Platelet Count 442 k/uL (150-450); RBC 4.42 m/uL (4.30-5.90); RDW 16.9 % (11.5-15.5); WBC 5.4 k/uL (3.8-10.6)
[2021-12-31 14:01] LABS: Ionized Calcium 4.4 mg/dL (4.5-5.3)
[2021-12-31 14:07] LABS: ALT 27 U/L (4-49); AST 58 U/L (17-59); African American GFR (CKD) >90 (>60 ml/min/1.73 sqM); Albumin 2.4 g/dL (3.5-5.0); Alkaline Phosphatase 218 U/L (38-126); Anion Gap 15 mmol/L; Blood Urea Nitrogen 17 mg/dL (9-20); Calcium 8.4 mg/dL (8.4-10.2); Carbon Dioxide 15 mmol/L (22-30); Chloride 93 mmol/L (98-107); Glucose 91 mg/dL (74-99); Magnesium 1.6 mg/dL (1.6-2.3); Non-African American GFR(CKD) >90 (>60 ml/min/1.73 sqM); Sodium 123 mmol/L (137-145); Total Bilirubin 1.2 mg/dL (0.2-1.3); Total Protein 5.6 g/dL (6.3-8.2)
[2021-12-31 14:13] LABS: Potassium 4.9 mmol/L (3.5-5.1)
[2021-12-31 14:34] LABS: INR 1.1 (<1.2); Prothrombin Time 11.4 sec (9.0-12.0)
[2021-12-31] MEDS ORDERED: NALOXONE 0.4 MG/ML 1 ML VIAL IV PRN (14:52)
[2021-12-31] MEDS: SODIUM CHLORIDE 0.9% 1,000 ML IV SCH ×2 (14:58→21:16)
[2021-12-31 17:31] LABS: Glucose,Whole Blood 146 mg/dL (70-110)
[2021-12-31] MEDS ORDERED: HYDROcodone/APAP 5-325MG 1 EACH TAB PO PRN (20:41)
[2021-12-31] MEDS ORDERED: HYDROmorphone 0.5 MG/0.5 ML SYRINGE IVP PRN (20:44)
[2021-12-31] MEDS: PANTOPRAZOLE 40 MG/10 ML VIAL IVP SCH (21:15)
[2021-12-31] MEDS: DEXTROSE 5%-0.9% NACL 1,000 ML IV SCH (21:15)
[2021-12-31] MEDS ORDERED: ONDANSETRON 4 MG/2 ML VIAL IVP PRN (21:23)
[2021-12-31] MEDS: ALBUTEROL NEBULIZED 2.5 MG/3 ML INHALATION PRN (21:36)
[2021-12-31] MEDS: GABAPENTIN 100 MG CAP PO SCH (23:04)
[2021-12-31] MEDS: POTASSIUM CHLORIDE ER 20 MEQ TAB.ER PO SCH (23:04)
[2022-01-01 02:07] LABS: Glucose,Whole Blood 102 mg/dL (70-110)
[2022-01-01 07:15] LABS: Glucose,Whole Blood 102 mg/dL (70-110)
[2022-01-01] MEDS: IPRATROPIUM-ALBUTEROL 3 ML NEB INHALATION SCH ×4 (07:53→19:16)
[2022-01-01] MEDS: POTASSIUM CHLORIDE ER 20 MEQ TAB.ER PO SCH ×2 (08:43→22:39)
[2022-01-01] MEDS: CHOLECALCIFEROL 25 MCG (1000 IU) TABLET PO SCH (08:43)
[2022-01-01] MEDS: MULTIVITAMINS, THERA 1 EACH TAB PO SCH (08:43)
[2022-01-01] MEDS: METOPROLOL TARTRATE 50 MG TAB PO SCH ×2 (08:43→17:48)
[2022-01-01] MEDS: ASCORBIC ACID 500 MG TAB PO SCH (08:43)
[2022-01-01] MEDS: TAMSULOSIN 0.4 MG CAP.ER.24H PO SCH (08:43)
[2022-01-01] MEDS: ASPIRIN 81 MG PO SCH (08:43)
[2022-01-01] MEDS: PANTOPRAZOLE 40 MG/10 ML VIAL IVP SCH ×2 (08:44→22:38)
[2022-01-01] MEDS: FOLIC ACID 1 MG TAB PO SCH (08:50)
[2022-01-01] MEDS: DEXTROSE 5%-0.9% NACL 1,000 ML IV SCH ×3 (08:51→22:40)
--- NOTE | 2022-01-01 08:56 | US ---
EXAMINATION TYPE: US venous doppler duplex LE DATE OF EXAM: 01/01/2022 8:33 AM COMPARISON: NONE CLINICAL HISTORY: leg swelling. edema SIDE PERFORMED: Bilateral TECHNIQUE: The lower extremity deep venous system is examined utilizing real time linear array sonog maria c with graded compression, doppler sonography and color-flow sonography. VESSELS IMAGED: Common Femoral Vein Deep Femoral Vein Greater Saphenous Vein * Femoral Vein Popliteal Vein Small Saphenous Vein * Proximal Calf Veins (* superficial vessels) Right Leg: Positive for DVT Femoral Vein no blood flow visualized. Left Leg: Negative for DVT IMPRESSION: 1. Positive DVT right lower extremity. 2. No evidence for DVT left lower extremity at this time.
[2022-01-01] MEDS ORDERED: HEPARIN SODIUM,PORCINE/PF 5,000 UNIT/0.5 ML SYRINGE SQ SCH (09:00)
--- NOTE | 2022-01-01 09:28 | XR ---
EXAMINATION TYPE: XR chest 2V DATE OF EXAM: 01/01/2022 COMPARISON: 09/28/21 HISTORY: Shortness of breath TECHNIQUE: Frontal and lateral views of the chest are obtained. FINDINGS: Scattered senescent parenchymal changes noted. Hyperinflation compatible with COPD. No evidence for infiltrate. No evidence for atelectasis. Heart size is stable. Mediastinal structures are stable and grossly unremarkable. No evidence for hilar prominence. Degenerative changes dorsal spine. IMPRESSION: 1. No evidence for acute pulmonary disease.
[2022-01-01 10:44] LABS: ALT 24 U/L (4-49); AST 42 U/L (17-59); African American GFR (CKD) >90 (>60 ml/min/1.73 sqM); Albumin 2.1 g/dL (3.5-5.0); Albumin/Globulin Ratio 0.7; Alkaline Phosphatase 213 U/L (38-126); Anion Gap 11 mmol/L; Bilirubin,Unconjugated 0.2 mg/dL (0.0-1.1); Blood Urea Nitrogen 14 mg/dL (9-20); Calcium 7.9 mg/dL (8.4-10.2); Carbon Dioxide 18 mmol/L (22-30); Chloride 97 mmol/L (98-107); Globulin 2.9 g/dL; Glucose 110 mg/dL (74-99); Magnesium 1.4 mg/dL (1.6-2.3); Non-African American GFR(CKD) >90 (>60 ml/min/1.73 sqM); Potassium 3.5 mmol/L (3.5-5.1); Sodium 126 mmol/L (137-145)
[2022-01-01 11:21] LABS: Anisocytosis Slight; Basophils % (A) 1 %; Eosinophils % (A) 0 %; HCT 37.2 % (39.0-53.0); HGB 11.8 gm/dL (13.0-17.5); Hypochromasia Moderate; Lymphocytes # (A) 0.8 k/uL (1.0-4.8); Lymphocytes % (A) 14 %; MCHC 31.7 g/dL (31.0-37.0); MCV 88.3 fL (80.0-100.0); Mean Platelet Volume 7.1; Monocytes # (A) 0.3 k/uL (0-1.0); Monocytes % (A) 5 %; Neutrophils # (A) 4.7 k/uL (1.3-7.7); Neutrophils % (A) 79 %; Platelet Count 379 k/uL (150-450); RBC 4.21 m/uL (4.30-5.90); RDW 17.3 % (11.5-15.5); WBC 5.9 k/uL (3.8-10.6)
[2022-01-01 12:04] LABS: Glucose,Whole Blood 116 mg/dL (70-110)
--- NOTE | 2022-01-01 13:08 | P.HPIM ---
History of Present Illness this is a pleasant 61 yo M with past medical history of COPD, Diabetes Mellitus, Deep Vein Thrombosis, Hyperlipidemia, Hypertension, Sleep Apnea/CPAP/BIPAP He was in the hospital on 09/2021 for severe hypertension from decreased oral intake, acute metabolic encephalopathy, chronic congestive heart failure, diastolic with ejection fraction 55-60%, acute kidney injury, sinus tachycardia, status post cholecystectomy for his gangrenous cholecystitis, restless leg syndrome, BPH, chronic medical debility i talkled to the pt and at bed side , pt is from [facility] , he was [facility] since June 2021. At that time she was in the hospital for acute hypoxic respiratory failure of unknown causes. He needed intubation at that time. He had complete opacification in the left hemithorax he had 2 bronchoscopy done which was negative for microbial growth. He has another admission on 09/2021. Patient and states that he came here because he wanted to get the PEG tube because he was not eating anything since June and he lost a lot of weight he used to weigh 333 pounds and now 193. He states that his main issue is no appetite, he denies choking but he has sometimes nausea that prevent him from eating. Is also short of breath with cough and clear yellow phlegm but no chest pain, no abdominal pain. He has loose bowel movement once or twice a week. Also he has unstageable pressure decubitus ulcer status post debridement, he has wound VAC in place. Patient also complaining of from chronic left leg pain and tenderness, he would not allow someone to drop his leg because it hurts a lot. Inspection looks no rmal, no trauma. Also was complaining from weakness in both lower extremities since June Patient is tachycardic around 110, on admission heart rate was 125 afebrile. His lab reviewed including CBC showed mild anemia of 11.9, rest of CBC is unremarkable. INR is unremarkable at 1.1. Sodium was low at 123. Creatinine normal 0.8. Glucose was low at 66. Chest x-ray: No acute process. Review of Systems Review of systems CONSTITUTIONAL: No fever, no malaise, no fatigue. HEENT: No recent visual problems or hearing problems. Denied any sore throat. CARDIOVASCULAR: No orthopnea, PND, no palpitations, no syncope. PULMONARY: No chest wall tenderness no cough, no hemoptysis. GASTROINTESTINAL: no vomiting, no abdominal pain. Normoactive bowel sounds. NEUROLOGICAL: No headaches, no numbness. HEMATOLOGICAL: Denies any bleeding or petechiae. GENITOURINARY: Denies any burning micturition, frequency, or urgency. MUSCULOSKELETAL/RHEUMATOLOGICAL: Denies any joint pain, swelling, or any muscle pain. ENDOCRINE: Denies any polyuria or polydipsia. Past Medical History Past Medical History: COPD, Diabetes Mellitus, Deep Vein Thrombosis (DVT), Hyperlipidemia, Hypertension, Pneumonia, Prostate Disorder, Sleep Apne a/CPAP/BIPAP Additional Past Medical History / Comment(s): sleep apnea uses cpap machine, herniated disc-has had injections, past stress test pt stated was wnl History of Any Multi-Drug Resistant Organisms: None Reported Past Surgical History: Hernia Repair Additional Past Surgical History / Comment(s): hydrocelectomy, vasectomy, colonoscopy/polypectomy-benign. umbilical hernia repair, injections for herniated disc. Past Anesthesia/Blood Transfusion Reactions: No Reported Reaction Additional Past Anesthesia/Blood Transfusion Reaction / Comment(s): clausterphobia. pt stated has never had a blood transfusion Past Psychological History: No Psychological Hx Reported Smoking Status: Never smoker Past Alcohol Use History: Occasional Additional Past Alcohol Use History / Comment(s): approx 2008 briefly smoked the occ cigar. pt has a rare drink Past Drug Use History: Marijuana Additional Drug Use History / Comment(s): approx every 3 months - Past Family History Mother Family Medical History: Cancer, Eye Disorder Additional Family Medical History / Comment(s): skin cancer, macular degeneration Father Family Medical History: Coronary Artery Disease (CAD), Dementia Additional Family Medical History / Comment(s): cabg, stents, uti/sepsis Medications and Allergies Home Medications Medication Instructions Recorded Confirmed Type Aspirin EC [Ecotrin Low Dose] 81 mg PO DAILY 08/23/18 12/31/21 History Tamsulosin [Flomax] 0.4 mg PO DAILY 08/23/18 12/31/21 History rOPINIRole HCL [Requip] 1 mg PO HS 08/23/18 12/31/21 History Ipratropium-Albuterol Nebulize 3 ml INHALATION RT-QID ml 07/16/21 12/31/21 Rx [Duoneb 0.5 mg-3 mg/3 ml Soln] Ascorbic Acid [Vitamin C] 1,000 mg PO DAILY@0800 09/09/21 12/31/21 History Cholecalciferol [Vitamin D3 (25 25 mcg PO DAILY 09/09/21 12/31/21 History Mcg = 1000 Iu)] Multivitamins, Thera [Multivitamin 1 tab PO DAILY 09/09/21 12/31/21 History (formulary)] hydrALAZINE HCL 50 mg PO BID@0500,1600 09/09/21 12/31/21 History Gabapentin [Neurontin] 100 mg PO HS #3 cap 10/01/21 12/31/21 Rx Acetaminophen [Acetaminophen ER] 650 mg PO Q6H PRN 12/31/21 12/31/21 History Albuterol Sulfate [Ventolin HFA] 2 puff INHALATION Q2H PRN 12/31/21 12/31/21 History Famotidine [Pepcid] 20 mg PO BID@0800,1600 12/31/21 12/31/21 History Folic Acid 0.8 mg PO DAILY 12/31/21 12/31/21 History HYDROcodone/APAP 5-325MG [[place] 1 tab PO Q6HR PRN 12/31/21 12/31/21 History 5-325] Metoprolol Tartrate [Lopressor] 50 mg PO BID@0800,1600 12/31/21 12/31/21 History Potassium Chloride ER [K-Dur 20] 20 meq PO DAILY 12/31/21 12/31/21 History Potassium Chloride ER [K-Dur 20] 40 meq PO HS 12/31/21 12/31/21 History Promethazine HCl 12.5 mg PO Q12H PRN 12/31/21 12/31/21 History dronabinoL [Dronabinol] 5 mg PO BID@1200,1700 12/31/21 12/31/21 History Allergies Allergy/AdvReac Type Severity Reaction Status Date / Time No Known Allergies Allergy Verified 12/31/21 15:42 Physical Exam Vitals: Vital Signs Temp Pulse Pulse Resp BP BP Pulse Ox 01/01/22 05:48 98.0 F 111 H 16 89/64 99 12/31/21 21:44 100 98 12/31/21 21:36 108 H 12/31/21 20:45 97.7 F 110 H 16 136/84 97 12/31/21 18:19 110 H 16 95/76 99 12/31/21 17:34 112 H 16 106/77 100 12/31/21 17:00 103 H 18 136/87 12/31/21 14:23 123 H 16 104/80 98 12/31/21 12:45 97.4 F L 125 H 22 123/78 98 Intake and Output 12/31/21 01/01/22 01/01/22 22:59 06:59 14:59 Intake Total 1000 Balance 1000 Intake: Intake, IV Titration 1000 Amount Dextrose 5%-0.9% NaCl 1, 1000 000 ml @ 100 mls/hr IV . Q10H [facility] Rx#:[id number] Other: # Voids 1 Weight 87.543 kg GENERAL: The patient is alert and oriented x3, in no mild acute distress. BMI is 29.3. Patient looks pale and tachycardic HEENT: Pupils are round and equally reacting to light. EOMI. No scleral icterus. No conjunctival pallor. Normocephalic, atraumatic. No pharyngeal erythema. No thyromegaly. CARDIOVASCULAR: S1 and S2 present. No murmurs, rubs, or gallops. Mild tachypnea PULMONARY: Chest is clear to auscultation, no wheezing or crackles. -ABDOMEN: Soft, nontender, nondistended, normoactive bowel sounds. No palpable organomegaly. Status post PEG tube -MUSCULOSKELETAL: No joint swelling or deformity. Unstageable sacral pressure ulcer -EXTREMITIES: No cyanosis, clubbing, or pedal edema. Left leg tenderness -NEUROLOGICAL: Cranial nerves are grossly intact. He has severe chronic bilateral lower extremity weakness, meningeal signs are absent. No sensory abnormality, no numbness or tingling SKIN: No rashes. no petechiae. Results CBC & Chem 7: 01/01/22 10:28 01/01/22 10:28 Labs: Abnormal Lab Results - Last 24 Hours (Table) 12/31/21 12/31/21 12/31/21 Range/Units 13:13 13:44 13:44 Hgb 11.9 L (13.0-17.5) gm/dL Hct 38.2 L (39.0-53.0) % RDW 16.9 H (11.5-15.5) % Sodium 123 L (137-145) mmol/L Chloride 93 L (98-107) mmol/L Carbon Dioxide 15 L (22-30) mmol/L POC Glucose (mg/dL) 66 L (70-110) mg/dL Ionized Calcium Sukhjinder 4.4 L (4.5-5.3) mg/dL Alkaline Phosphatase 218 H (38-126) U/L Total Protein 5.6 L (6.3-8.2) g/dL Albumin 2.4 L (3.5-5.0) g/dL 12/31/21 Range/Units 17:30 Hgb (13.0-17.5) gm/dL Hct (39.0-53.0) % RDW (11.5-15.5) % Sodium (137-145) mmol/L Chloride (98-107) mmol/L Carbon Dioxide (22-30) mmol/L POC Glucose (mg/dL) 146 H (70-110) mg/dL Ionized Calcium Sukhjinder (4.5-5.3) mg/dL Alkaline Phosphatase (38-126) U/L Total Protein (6.3-8.2) g/dL Albumin (3.5-5.0) g/dL Thrombosis Risk Factor Assmnt - Choose All That Apply Any of the Below Risk Factors Present?: Yes Each Factor Represents 1 point: Age 41-60 years, Obesity (BMI >25) Each Risk Factor Represents 3 Points: History of DVT/PE Thrombosis Risk Factor Assessment Total Risk Factor Score: 5 Thrombosis Risk Factor Assessment Level: High Risk Assessment and Plan Assessment: Severe appetite loss associated with Loss of weight and nausea Dehydration Hypovolemic hyponatremia Unstageable chronic decubitus ulcer status post wound VAC placement Left leg pain and tenderness, chronic, rule out DVT Chronic bilateral lower extremity weakness Diabetes mellitus, With hyperglycemia on admission Hypertension Hyperlipidemia History of COPD Chronic congestive heart failure with ejection fraction 55-60% History of metabolic encephalopathy Sinus tachycardia Status post cholecystectomy Restless leg syndrome BPH Chronic medical debility Plan: This is a pleasant 61 years old male who presents with dehydration, loss of appetite and loss of weight, hyponatremia, bilateral leg pain and other medical problems Continue with IV hydration, Currently on D5 normal saline We'll order ultrasound of the leg swallow evaluation, currently he is on dysphagia diet. Also ask for dietary consult We will do anemia workup x-ray of his left leg Labs and medication were reviewed.. Continue same treatment. Continue with symptomatic treatment. Resume home medication. Monitor lytes and vitals. DVT and GI prophylaxis. Further recommendationsas per clinical course of the patient DVT prophylaxis: Subcutaneous heparin GI Prophylaxis: Ppi Prognosis is guarded
--- NOTE | 2022-01-01 13:54 | XR ---
EXAMINATION TYPE: XR tibia fibula LT DATE OF EXAM: 01/01/2022 CLINICAL HISTORY: pain TECHNIQUE: AP and lateral images of the left tibia and fibula are obtained. COMPARISON: None. FINDINGS: There is no acute fracture/dislocation evident. The joint spaces appear within normal valero its. The overlying soft tissue appears unremarkable. IMPRESSION: There is no acute fracture or dislocation seen. ICD 10 NO FRACTURE, INITIAL EVALUATION
[2022-01-01] MEDS: ENOXAPARIN 100 MG/ML SYRINGE SQ SCH (14:27)
[2022-01-01 16:03] LABS: Estimated Average Glucose UNC
[2022-01-01 17:51] LABS: Glucose,Whole Blood 109 mg/dL (70-110)
[2022-01-01] MEDS: GABAPENTIN 100 MG CAP PO SCH (22:38)
[2022-01-01 23:35] LABS: Iron 57 ug/dL (65-175); Total Iron Binding Capacity 62 ug/dL (228-460)
[2022-01-02] MEDS: ENOXAPARIN 100 MG/ML SYRINGE SQ SCH ×2 (02:15→18:16)
[2022-01-02] MEDS: MAGNESIUM OXIDE 400 MG TAB PO SCH ×4 (02:15→21:26)
[2022-01-02 05:53] LABS: Anisocytosis Slight; Basophils % (A) 0 %; Eosinophils % (A) 1 %; HCT 33.1 % (39.0-53.0); HGB 10.8 gm/dL (13.0-17.5); Lymphocytes # (A) 0.8 k/uL (1.0-4.8); Lymphocytes % (A) 13 %; MCH 27.8 pg (25.0-35.0); MCHC 32.7 g/dL (31.0-37.0); Monocytes # (A) 0.3 k/uL (0-1.0); Monocytes % (A) 4 %; Neutrophils # (A) 5.1 k/uL (1.3-7.7); Neutrophils % (A) 81 %; Platelet Count 332 k/uL (150-450); RBC 3.89 m/uL (4.30-5.90); RDW 17.1 % (11.5-15.5); WBC 6.2 k/uL (3.8-10.6)
[2022-01-02 06:06] LABS: ALT 23 U/L (4-49); AST 37 U/L (17-59); African American GFR (CKD) >90 (>60 ml/min/1.73 sqM); Albumin/Globulin Ratio 0.8; Alkaline Phosphatase 185 U/L (38-126); Anion Gap 9 mmol/L; Bilirubin,Unconjugated 0.3 mg/dL (0.0-1.1); Blood Urea Nitrogen 13 mg/dL (9-20); Calcium 7.6 mg/dL (8.4-10.2); Carbon Dioxide 19 mmol/L (22-30); Chloride 99 mmol/L (98-107); Globulin 2.6 g/dL; Glucose 98 mg/dL (74-99); Magnesium 1.3 mg/dL (1.6-2.3); Non-African American GFR(CKD) >90 (>60 ml/min/1.73 sqM); Potassium 3.1 mmol/L (3.5-5.1); Sodium 127 mmol/L (137-145); Total Bilirubin 0.9 mg/dL (0.2-1.3); Total Protein 4.6 g/dL (6.3-8.2)
[2022-01-02] MEDS ORDERED: SODIUM CHLORIDE 0.9% 1,000 ML IV ONE (06:35)
[2022-01-02 06:58] LABS: Glucose,Whole Blood 95 mg/dL (70-110)
[2022-01-02] MEDS ORDERED: Magnesium Replacement Protocol 1 EACH MISC MISCELLANE PRN (06:58)
[2022-01-02] MEDS ORDERED: Potassium Replacement Protocol 1 EACH MISC MISCELLANE PRN (07:03)
[2022-01-02] MEDS: IPRATROPIUM-ALBUTEROL 3 ML NEB INHALATION SCH ×4 (08:00→19:59)
[2022-01-02] MEDS: MAGNESIUM SULFATE-D5W PMX 1 GM in DEXTROSE/WATER 1 100ML.BAG IVPB SCH ×3 (09:44→18:17)
[2022-01-02] MEDS: POTASSIUM CHLORIDE 10 MEQ in WATER FOR INJECTION 1 100ML.BAG IVPB SCH ×4 (09:44→14:31)
--- NOTE | 2022-01-02 11:13 | XR ---
EXAMINATION TYPE: XR KUB DATE OF EXAM: 01/02/2022 COMPARISON: NONE HISTORY: Pain TECHNIQUE: Single supine KUB image of the abdomen is obtained FINDINGS: Mildly dilated loops of small bowel left hemiabdomen measuring up to 3.4 cm. The remaining small and large bowel appear to be of normal caliber. Vascular calcifications noted. No convincing evidence for pneumoperitoneum. No unusual calcifications. The lung bases are clear. The osseous structures are intact. IMPRESSION: 1. Nonspecific bowel gas pattern which could reflect mild ileus. Correlate clinically and consider p rogress studies.
[2022-01-02 11:34] LABS: Glucose,Whole Blood 120 mg/dL (70-110)
[2022-01-02] MEDS: METOPROLOL TARTRATE 50 MG TAB PO SCH ×2 (15:36→18:18)
[2022-01-02] MEDS: ASPIRIN 81 MG PO SCH (15:36)
[2022-01-02] MEDS: ASCORBIC ACID 500 MG TAB PO SCH (15:36)
[2022-01-02] MEDS: CHOLECALCIFEROL 25 MCG (1000 IU) TABLET PO SCH (15:37)
[2022-01-02] MEDS: FOLIC ACID 1 MG TAB PO SCH (15:37)
[2022-01-02] MEDS: PANTOPRAZOLE 40 MG/10 ML VIAL IVP SCH ×2 (15:38→21:21)
[2022-01-02] MEDS: MULTIVITAMINS, THERA 1 EACH TAB PO SCH (15:38)
[2022-01-02] MEDS: POTASSIUM CHLORIDE ER 20 MEQ TAB.ER PO SCH ×2 (15:39→21:26)
[2022-01-02] MEDS: TAMSULOSIN 0.4 MG CAP.ER.24H PO SCH (15:39)
[2022-01-02 16:17] LABS: Glucose,Whole Blood 109 mg/dL (70-110)
[2022-01-02] MEDS: DEXTROSE 5%-0.9% NACL 1,000 ML IV SCH (18:21)
--- NOTE | 2022-01-02 20:37 | P.PN ---
Subjective this is a pleasant 61 yo M with past medical history of COPD, Diabetes Mellitus, Deep Vein Thrombosis, Hyperlipidemia, Hypertension, Sleep Apnea/CPAP/BIPAP He was in the hospital on 09/2021 for severe hypertension from decreased oral intake, acute metabolic encephalopathy, chronic congestive heart failure, diastolic with ejection fraction 55-60%, acute kidney injury, sinus tachycardia, status post cholecystectomy for his gangrenous cholecystitis, restless leg syndrome, BPH, chronic medical debility i talkled to the pt and at bed side , pt is from assisted , he was assisted since June 2021. At that time she was in the hospital for acute hypoxic respiratory failure of unknown causes. He needed intubation at that time. He had complete opacification in the left hemithorax he had 2 bronchoscopy done which was negative for microbial growth. He has another admission on 09/2021. Patient and states that he came here because he wanted to get the PEG tube because he was not eating anything since June and he lost a lot of weight he used to weigh 333 pounds and now 193. He states that his main issue is no appetite, he denies choking but he has sometimes nausea that prevent him from eating. Is also short of breath with cough and clear yellow phlegm but no chest pain, no abdominal pain. He has loose bowel movement once or twice a week. Also he has unstageable pressure decubitus ulcer status post debridement, he has wound VAC in place. Patient also complaining of from chronic left leg pain and tenderness, he would not allow someone to drop his leg because it hurts a lot. Inspection looks normal, no trauma. Also was complaining from weakness in both lower extremities since June Patient is tachycardic around 110, on admission heart rate was 125 afebrile. His lab reviewed including CBC showed mild anemia of 11.9, rest of CBC is unremarkable. INR is unremarkable at 1.1. Sodium was low at 123. Creatinine normal 0.8. Glucose was low at 66. Chest x-ray: No acute process. 01/02/2022 Last night patient was started on therapeutic dose Lovenox for acute right leg DVT, CT angiography chest and echo could not be done because have no IV access, patient was transferred to a small IV access was obtained in the right upper arm, not good enough for CT of the chest test or aggressive treatment. However IV fluids could be provided. Blood pressure is improved up to 110/68, however patient still tachycardic. Patient could not eat because of severe nausea and vomiting, H time he put something in his monthly follow-up as per bedside nurse, KUB showing some evidence of ileus, surgical team consult obtained. Social evaluation under direct consults are pending. Objective - Vital Signs Vital signs: Vital Signs Temp 97.3 F L 01/02/22 13:00 Pulse 120 H 01/02/22 16:16 Resp 18 01/02/22 13:00 BP 95/62 01/02/22 13:00 Pulse Ox 99 01/02/22 16:04 FiO2 28 01/02/22 16:04 Intake & Output 01/02/22 01/02/22 01/03/22 06:59 18:59 06:59 Intake Total 1140 Balance 1140 Intake: IV 20 Invasive Line 2 20 Intake, IV Titration 1100 Amount Sodium Chloride 0.9% 1, 1100 000 ml @ 130 mls/hr IV . Q7H42M [facility] Rx#:[id number] Oral 20 Other: # Voids 1 - Exam GENERAL: The patient is alert and oriented x3, in no mild acute distress. BMI is 29.3. Patient looks pale and tachycardic HEENT: Pupils are round and equally reacting to light. EOMI. No scleral icterus. No conjunctival pallor. Normocephalic, atraumatic. No pharyngeal erythema. No thyromegaly. CARDIOVASCULAR: S1 and S2 present. No murmurs, rubs, or gallops. Mild tachypnea PULMONARY: Chest is clear to auscultation, no wheezing or crackles. -ABDOMEN: Soft, nontender, nondistended, normoactive bowel sounds. No palpable organomegaly. Status post PEG tube -MUSCULOSKELETAL: No joint swelling or deformity. Unstageable sacral pressure ulcer -EXTREMITIES: No cyanosis, clubbing, or pedal edema. Left leg tenderness -NEUROLOGICAL: Cranial nerves are grossly intact. He has severe chronic bilateral lower extremity weakness, meningeal signs are absent. No sensory abnormality, no numbness or tingling SKIN: No rashes. no petechiae. - Labs CBC & Chem 7: 01/02/22 05:37 01/02/22 05:37 Labs: Abnormal Lab Results - Last 24 Hours (Table) 01/01/22 01/01/22 01/02/22 Range/Units 10:28 10:28 05:37 RBC 3.89 L (4.30-5.90) m/uL Hgb 10.8 L (13.0-17.5) gm/dL Hct 33.1 L (39.0-53.0) % RDW 17.1 H (11.5-15.5) % Lymphocytes # 0.8 L (1.0-4.8) k/uL Sodium (137-145) mmol/L Potassium (3.5-5.1) mmol/L Carbon Dioxide (22-30) mmol/L POC Glucose (mg/dL) (70-110) mg/dL Calcium (8.4-10.2) mg/dL Magnesium (1.6-2.3) mg/dL Iron 57 L (65-175) ug/dL TIBC 62 L (228-460) ug/dL % Saturation 91.70 H (15.00-50.00) Transferrin 44.4 L (204.0-354.0) mg/dL Ferritin 1648.0 H (22.0-322.0) ng/mL Alkaline Phosphatase (38-126) U/L Total Protein (6.3-8.2) g/dL Albumin (3.5-5.0) g/dL Vitamin B12 1014.0 H (200.0-944.0) pg/mL Procalcitonin 0.11 H (0.02-0.09) ng/mL 01/02/22 01/02/22 Range/Units 05:37 11:33 RBC (4.30-5.90) m/uL Hgb (13.0-17.5) gm/dL Hct (39.0-53.0) % RDW (11.5-15.5) % Lymphocytes # (1.0-4.8) k/uL Sodium 127 L (137-145) mmol/L Potassium 3.1 L (3.5-5.1) mmol/L Carbon Dioxide 19 L (22-30) mmol/L POC Glucose (mg/dL) 120 H (70-110) mg/dL Calcium 7.6 L (8.4-10.2) mg/dL Magnesium 1.3 L (1.6-2.3) mg/dL Iron (65-175) ug/dL TIBC (228-460) ug/dL % Saturation (15.00-50.00) Transferrin (204.0-354.0) mg/dL Ferritin (22.0-322.0) ng/mL Alkaline Phosphatase 185 H (38-126) U/L Total Protein 4.6 L (6.3-8.2) g/dL Albumin 2.0 L (3.5-5.0) g/dL Vitamin B12 (200.0-944.0) pg/mL Procalcitonin (0.02-0.09) ng/mL Assessment and Plan Assessment: Persistent nausea and vomiting secondary to ileus, rule out other causes Acute right leg DVT Severe appetite loss associated with Loss of weight and nausea Dehydration and hypovolemia, improving Hypovolemic hyponatremia Unstageable chronic decubitus ulcer status post wound VAC placement Anemia of chronic diseases mellitus, With hyperglycemia on admission Hypertension Hyperlipidemia History of COPD Chronic congestive heart failure with ejection fraction 55-60% History of metabolic encephalopathy Sinus tachycardia Status post cholecystectomy Restless leg syndrome BPH Chronic medical debility Plan: This is a pleasant 61 years old male who presents with dehydration, loss of appetite and loss of weight, hyponatremia, bilateral leg pain and other medical problems Continue with IV hydration, Currently on D5 normal saline Started the patient on Lovenox used night because he had no IV access, at therapeutic dose swallow evaluation, currently he is on dysphagia diet. Also ask for dietary consult check urinalysis and bladder scan Surgical team consult Labs and medications are reviewed.. Continue same treatment. Continue with symptomatic treatment. Resume home medication. Monitor lytes and vitals. DVT and GI prophylaxis. Further recommendations as per clinical course of the patient DVT prophylaxis: Subcutaneous heparin GI Prophylaxis: Ppi Prognosis is guarded
[2022-01-02] MEDS: GABAPENTIN 100 MG CAP PO SCH (21:26)
[2022-01-03] MEDS: DEXTROSE 5%-0.9% NACL 1,000 ML IV SCH ×3 (00:53→16:50)
[2022-01-03] MEDS: ENOXAPARIN 100 MG/ML SYRINGE SQ SCH ×2 (01:14→16:51)
[2022-01-03 01:19] LABS: Appearance,Urine Clear (Clear); Bacteria,Urine Rare /hpf; Bilirubin,Urine 1+ (Negative); Blood,Urine Negative (Negative); Color,Urine Dark Yellow; Glucose,Urine (UA) Negative (Negative); Ketones,Urine 1+ (Negative); Leukocyte Esterase,Urine Negative (Negative); Mucus,Urine Rare /hpf; Nitrite,Urine Negative (Negative); Protein,Urine 1+ (Negative); RBC,Urine 1 /hpf (0-5); Specific Gravity,Urine 1.021 (1.001-1.035); WBC,Urine 1 /hpf (0-5)
[2022-01-03 06:21] LABS: Glucose,Whole Blood 103 mg/dL (70-110)
[2022-01-03] MEDS: IPRATROPIUM-ALBUTEROL 3 ML NEB INHALATION SCH ×4 (07:29→19:28)
[2022-01-03] MEDS: PANTOPRAZOLE 40 MG/10 ML VIAL IVP SCH ×2 (08:54→21:31)
[2022-01-03 09:20] LABS: ALT 22 U/L (4-49); African American GFR (CKD) >90 (>60 ml/min/1.73 sqM); Albumin 1.9 g/dL (3.5-5.0); Anion Gap 8 mmol/L; Bilirubin, Delta 0.7 mg/dL (0.0-0.2); Bilirubin,Unconjugated 0.2 mg/dL (0.0-1.1); Blood Urea Nitrogen 10 mg/dL (9-20); Calcium 7.3 mg/dL (8.4-10.2); Carbon Dioxide 14 mmol/L (22-30); Chloride 100 mmol/L (98-107); Glucose 102 mg/dL (74-99); Non-African American GFR(CKD) >90 (>60 ml/min/1.73 sqM); Sodium 122 mmol/L (137-145); Total Bilirubin 0.9 mg/dL (0.2-1.3); Total Protein 4.5 g/dL (6.3-8.2)
[2022-01-03 09:27] LABS: AST 47 U/L (17-59); Alkaline Phosphatase 176 U/L (38-126); Magnesium 1.9 mg/dL (1.6-2.3); Potassium 3.9 mmol/L (3.5-5.1)
[2022-01-03 09:58] LABS: Anisocytosis Slight; Basophils % (A) 0 %; Eosinophils % (A) 0 %; HCT 30.4 % (39.0-53.0); HGB 10.1 gm/dL (13.0-17.5); Lymphocytes # (A) 1.1 k/uL (1.0-4.8); Lymphocytes % (A) 18 %; MCH 27.8 pg (25.0-35.0); MCHC 33.2 g/dL (31.0-37.0); MCV 83.8 fL (80.0-100.0); Mean Platelet Volume 8.7; Monocytes # (A) 0.3 k/uL (0-1.0); Monocytes % (A) 5 %; Neutrophils # (A) 4.5 k/uL (1.3-7.7); Neutrophils % (A) 76 %; Platelet Count 340 k/uL (150-450); RBC 3.63 m/uL (4.30-5.90); RDW 17.5 % (11.5-15.5); WBC 5.9 k/uL (3.8-10.6)
--- NOTE | 2022-01-03 10:41 | P.CONS ---
History of Present Illness - Reason for Consult Consult date: 01/03/22 wound care - History of Present Illness This is a 61-year-old gentleman being seen by the wound care center for nonhealing ulceration to the left buttocks. Patient currently has a negative pressure wound VAC to the site. Patient developed a pressure ulcer during his last hospitalization back in September. He has a stage IV pressure ulcer to the left buttocks with wound VAC in place at this time. Patient's past medical hi story significant for COPD, Diabetes Mellitus, Deep Vein Thrombosis, Hyperlipidemia, Hypertension, Sleep Apnea/CPAP/BIPAP. Review Of Systems: Constitutional: No fever, no chills, no night sweats. No weight change. No weakness, fatigue or lethargy. No daytime sleepiness. Integumentary:reports wounds, no lesions. No rash or pruritus. No unusual bruising. No change in hair or nails. Physical exam: General Appearance: Alert, cooperative, no distress, appears stated age. Skin: See HPI all other Skin color, texture, tugor normal, no rashes or lesions. Neurologic: Alert oriented x3 Assessment: 1. Stage IV pressure ulcer left buttocks 2. Diabetes with skin ulceration Plan: 1. Applied negative pressure wound VAC to 125 mm/Hg of suction with black foam to the site changed Monday. Utilize Skin-Prep to the site. Thank you for the consultation any questions contact the wound care center DNP note has been reviewed and discussed with Dr. Centeno and the impression a nd plan of care has been directed as dictated. Past Medical History Past Medical History: COPD, Diabetes Mellitus, Deep Vein Thrombosis (DVT), Hyperlipidemia, Hypertension, Pneumonia, Prostate Disorder, Sleep Apnea/CPAP/BIPAP Additional Past Medical History / Comment(s): sleep apnea uses cpap machine, herniated disc-has had injections, past stress test pt stated was wnl History of Any Multi-Drug Resistant Organisms: None Reported Past Surgical History: Hernia Repair Additional Past Surgical History / Comment(s): hydrocelectomy, vasectomy, colonoscopy/polypectomy-benign. umbilical hernia repair, injections for herniated disc. Past Anesthesia/Blood Transfusion Reactions: No Reported Reaction Additional Past Anesthesia/Blood Transfusion Reaction / Comm: clausterphobia. pt stated has never had a blood transfusion Past Psychological History: No Psychological Hx Reported Smoking Status: Never smoker Past Alcohol Use History: Occasional Additional Past Alcohol Use History / Comment(s): approx 2008 briefly smoked the occ cigar. pt has a rare drink Past Drug Use History: Marijuana Additional Drug Use History / Comment(s): approx every 3 months - Past Family History Mother Family Medical History: Cancer, Eye Disorder Additional Family Medical History / Comment(s): skin cancer, macular degeneration Father Family Medical History: Coronary Artery Disease (CAD), Dementia Additional Family Medical History / Comment(s): cabg, stents, uti/sepsis Medications and Allergies Home Medications Medication Instructions Recorded Confirmed Type Aspirin EC [Ecotrin Low Dose] 81 mg PO DAILY 08/23/18 12/31/21 History Tamsulosin [Flomax] 0.4 mg PO DAILY 08/23/18 12/31/21 History rOPINIRole HCL [Requip] 1 mg PO HS 08/23/18 12/31/21 History Ipratropium-Albuterol Nebulize 3 ml INHALATION RT-QID ml 07/16/21 12/31/21 Rx [Duoneb 0.5 mg-3 mg/3 ml Soln] Ascorbic Acid [Vitamin C] 1,000 mg PO DAILY@0800 09/09/21 12/31/21 History Cholecalciferol [Vitamin D3 (25 25 mcg PO DAILY 09/09/21 12/31/21 History Mcg = 1000 Iu)] Multivitamins, Thera [Multivitamin 1 tab PO DAILY 09/09/21 12/31/21 History (formulary)] hydrALAZINE HCL 50 mg PO BID@0500,1600 09/09/21 12/31/21 History Gabapentin [Neurontin] 100 mg PO HS #3 cap 10/01/21 12/31/21 Rx Acetaminophen [Acetaminophen ER] 650 mg PO Q6H PRN 12/31/21 12/31/21 History Albuterol Sulfate [Ventolin HFA] 2 puff INHALATION Q2H PRN 12/31/21 12/31/21 History Famotidine [Pepcid] 20 mg PO BID@0800,1600 12/31/21 12/31/21 History Folic Acid 0.8 mg PO DAILY 12/31/21 12/31/21 History HYDROcodone/APAP 5-325MG [[employer] 1 tab PO Q6HR PRN 12/31/21 12/31/21 History 5-325] Metoprolol Tartrate [Lopressor] 50 mg PO BID@0800,1600 12/31/21 12/31/21 History Potassium Chloride ER [K-Dur 20] 20 meq PO DAILY 12/31/21 12/31/21 History Potassium Chloride ER [K-Dur 20] 40 meq PO HS 12/31/21 12/31/21 History Promethazine HCl 12.5 mg PO Q12H PRN 12/31/21 12/31/21 History dronabinoL [Dronabinol] 5 mg PO BID@1200,1700 12/31/21 12/31/21 History Allergies Allergy/AdvReac Type Severity Reaction Status Date / Time No Known Allergies Allergy Verified 12/31/21 15:42 Physical Exam Vitals: Vital Signs Temp Pulse Pulse Resp BP Pulse Ox FiO2 01/03/22 08:00 97.3 F L 117 H 16 114/56 01/03/22 07:41 116 H 01/03/22 07:29 117 H 100 01/03/22 04:00 97.6 F 112 H 20 112/78 93 L 01/03/22 00:00 98.5 F 114 H 18 90/55 100 01/02/22 20:00 97.4 F L 118 H 18 112/64 100 01/02/22 16:16 120 H 01/02/22 16:04 118 H 99 28 01/02/22 16:00 97.3 F L 130 H 20 110/68 99 01/02/22 13:00 97.3 F L 120 H 18 95/62 100 01/02/22 11:40 117 H 01/02/22 11:30 115 H Intake and Output 01/02/22 01/03/22 01/03/22 22:59 06:59 14:59 Output Total 0 Balance 0 Output: Urine 0 Other: Voiding Method External Catheter Results CBC & Chem 7: 01/03/22 08:32 01/03/22 08:32 Labs: Abnormal Lab Results - Last 24 Hours (Table) 01/02/22 01/02/22 01/03/22 Range/Units 11:33 23:45 08:32 RBC 3.63 L (4.30-5.90) m/uL Hgb 10.1 L (13.0-17.5) gm/dL Hct 30.4 L (39.0-53.0) % RDW 17.5 H (11.5-15.5) % Sodium (137-145) mmol/L Carbon Dioxide (22-30) mmol/L Glucose (74-99) mg/dL POC Glucose (mg/dL) 120 H (70-110) mg/dL Calcium (8.4-10.2) mg/dL Delta Bilirubin (0.0-0.2) mg/dL Alkaline Phosphatase (38-126) U/L Total Protein (6.3-8.2) g/dL Albumin (3.5-5.0) g/dL Urine Protein 1+ H (Negative) Urine Ketones 1+ H (Negative) Urine Bilirubin 1+ H (Negative) Urine Bacteria Rare H (None) /hpf Urine Mucus Rare H (None) /hpf 01/03/22 Range/Units 08:32 RBC (4.30-5.90) m/uL Hgb (13.0-17.5) gm/dL Hct (39.0-53.0) % RDW (11.5-15.5) % Sodium 122 L (137-145) mmol/L Carbon Dioxide 14 L (22-30) mmol/L Glucose 102 H (74-99) mg/dL POC Glucose (mg/dL) (70-110) mg/dL Calcium 7.3 L (8.4-10.2) mg/dL Delta Bilirubin 0.7 H (0.0-0.2) mg/dL Alkaline Phosphatase 176 H (38-126) U/L Total Protein 4.5 L (6.3-8.2) g/dL Albumin 1.9 L (3.5-5.0) g/dL Urine Protein (Negative) Urine Ketones (Negative) Urine Bilirubin (Negative) Urine Bacteria (None) /hpf Urine Mucus (None) /hpf Assessment and Plan (1) Pressure injury of left buttock, stage 4 Current Visit: Yes Status: Acute Code(s): L89.324 - PRESSURE ULCER OF LEFT BUTTOCK, STAGE 4 SNOMED Code(s): 35344965318815863 (2) Diabetes mellitus with skin ulcer Current Visit: Yes Status: Acute Code(s): E11.622 - TYPE 2 DIABETES MELLITUS WITH OTHER SKIN ULCER; L98.499 - NON-PRESSURE CHRONIC ULCER OF SKIN OF SITES W UNSP SEVERITY SNOMED Code(s): 10545498
[2022-01-03 11:45] LABS: Glucose,Whole Blood 102 mg/dL (70-110)
--- NOTE | 2022-01-03 12:00 | CA ---
Transthoracic Echo Report Name: Zenon Marquez Age: 61 Gender: M : 1960 Exam Date: 01/03/2022 09:18 Exam Location: [facility] Echo Ht (in): 68 Wt (lb): 195 Ordering Physician: Tomás Zurita MD Attending/Referring Phys: [id number], Parminder Storekeeper Steward Rosie Busch, GERARD Procedure CPT: Indications: Rule out heart disease Cardiac Hx: Echo done 09/28. Limited Echo r/o heart disease. Technical Quality: Fair Contrast 1: Lumason Total Dose (mL): Contrast 2: Total Dose (mL): MEASUREMENTS (Male / Female) Normal Values 2D ECHO LV Diastolic Diameter PLAX 3.9 cm 4.2 - 5.9 / 3.9 - 5.3 cm LV Systolic Diameter PLAX 3.5 cm IVS Diastolic Thickness 1.3 cm 0.6 - 1.0 / 0.6 - 0.9 cm LVPW Diastolic Thickness 1.7 cm 0.6 - 1.0 / 0.6 - 0.9 cm LV Relative Wall Thickness 0.8 RV Internal Dim ED PLAX 2.9 cm M-MODE Aortic Root Diameter MM 2.6 cm MV E Point Septal Separation 0.4 cm FINDINGS Left Ventricle Left ventricular ejection fraction is estimated at 50-55%. Right Ventricle Normal right ventricular size and function. Right Atrium Normal right atrial size. Left Atrium Normal left atrial size. Mitral Valve Structurally normal mitral valve. Aortic Valve Trileaflet aortic valve. Aortic valve sclerosis. Tricuspid Valve Structurally normal tricuspid valve. Pulmonic Valve Pulmonic valve not well visualized. Pericardium Echo free space anterior to the right ventricle likely represents a fat pad. Aorta Aortic root and proximal ascending aorta not well visualized. CONCLUSIONS Normal LV systolic function Previewed by: Dr. Devin Ayala MD (Electronically Signed) Final Date: 03 January 2022 11:59
[2022-01-03] MEDS: ASCORBIC ACID 500 MG TAB PO SCH (12:01)
[2022-01-03] MEDS: ASPIRIN 81 MG PO SCH (12:01)
[2022-01-03] MEDS: METOPROLOL TARTRATE 50 MG TAB PO SCH ×2 (12:01→16:31)
[2022-01-03] MEDS: MAGNESIUM OXIDE 400 MG TAB PO SCH ×3 (12:02→22:24)
[2022-01-03] MEDS: MULTIVITAMINS, THERA 1 EACH TAB PO SCH (12:02)
[2022-01-03] MEDS: POTASSIUM CHLORIDE ER 20 MEQ TAB.ER PO SCH ×2 (12:02→22:24)
[2022-01-03] MEDS: CHOLECALCIFEROL 25 MCG (1000 IU) TABLET PO SCH (12:02)
[2022-01-03] MEDS: FOLIC ACID 1 MG TAB PO SCH (12:02)
[2022-01-03] MEDS: TAMSULOSIN 0.4 MG CAP.ER.24H PO SCH (12:03)
--- NOTE | 2022-01-03 15:11 | CT ---
EXAMINATION TYPE: CT chest angio for PE DATE OF EXAM: 01/03/2022 COMPARISON: CT dated 06/26/2021 HISTORY: chest pain CT DLP: 473.7 mGy.cm. Automated Exposure Control for Dose Reduction was Utilized. TECHNIQUE AND CONTRAST: CTA scan of the thorax is performed with IV Contrast, patient injected with 100 mL of Isovue 370, pul monary embolism protocol. MIP Images are created on an independent workstation and reviewed. FINDINGS: No definite filling defect within the pulmonary trunk, main pulmonary arteries, lobar and segmental b ranches to suggest pulmonary embolism. Subsegmental branches are suboptimally assessed. The pulmonary trunk measures 2.9 cm. No gross cardiomegaly. Left ventricular wall thickening, please correlate wit h echocardiographic results. Small pericardial effusion. Coronary and arterial atherosclerotic calcif ications. Elevated right hemidiaphragm. Small bilateral pleural effusions, slightly larger on the left side. Pe ripheral bronchiectasis seen in the left lower lobe posteriorly with adjacent pulmonary atelectasis. Subsegmental atelectasis also seen at the posterior aspect of the right upper lobe and the right lowe r lobe. Patent trachea and main bronchi. 10 mm subcarinal lymph node with scattered smaller bilateral hilar a nd mediastinal lymph nodes, nonspecific. CT scan of the abdomen is dictated separately. No aggressive bone lesion. IMPRESSION: No major or central pulmonary embolism. Small bilateral pleural effusions and other findings as descr ibed above.
--- NOTE | 2022-01-03 15:20 | P.GSCN ---
History of Present Illness Consult date: 01/03/22 History of present illness: CHIEF COMPLAINT: Dehydration and failure to thrive HISTORY OF PRESENT ILLNESS: This is a 7-year-old male who presented to the ER from [facility] due to being lethargic and dehydrated. He was having evidence of failure to thrive. He has chronic decubitus ulcer with wound VAC placement. He is followed by wound care service. Patient reports not having a bowel movement about a week. Denies any abdominal pain. But does report constant nausea. He is having flatus. Reports poor oral intake due to nausea. His KUB x-ray had shown evidence of a possible ileus. He was hyponatremic and had hypokalemia on admission. He's had some mild tachycardia. Surgical service consulted for mild ileus. Patient and at bedside and are requesting a PEG tube placement. Patient has had prior cholecystectomy for gangrenous cholecystitis. Patient's transmission was found to have a DVT in the right leg and is currently on Lovenox. He is awaiting CTA of the chest to be completed once he gets IV access. Computed tomography scan of the abdomen and pelvis pending. PAST MEDICAL HISTORY: COPD, Diabetes Mellitus, Deep Vein Thrombosis (DVT), Hyperlipidemia, Hypertension, Pneumonia, Prostate Disorder, Sleep Apnea/CPAP/BIPAP, chronic decubitus ulcer, anemia of chronic disease, hypertension, hyperlipidemia, CHF PAST SURGICAL HISTORY: See list. MEDICATIONS: See list. ALLERGIES: See list. SOCIAL HISTORY: No illicit drug use. REVIEW OF SYSTEMS: CONSTITUTIONAL: Denies fever or chills. HEENT: Denies blurred vision, vision changes, or eye pain. Denies hemoptysis CARDIOVASCULAR: Denies chest pain or pressure. RESPIRATORY: No shortness of breath. GASTROINTESTINAL: See HPI for pertinent findings HEMATOLOGIC: Denies bleeding disorders. GENITOURINARY: Denies any blood in urine or increased urinary frequency. SKIN: Denies pruitis. Denies rash. PHYSICAL EXAM: VITAL SIGNS: Reviewed GENERAL: Well-developed in no acute distress. HEENT: No sclera icterus. Extraocular movements grossly intact. Moist buccal mucosa. Head is atraumatic, normocephalic. No nasal drainage. ABDOMEN: Soft. Nondistended. Nontender NEUROLOGIC: Alert and oriented. Cranial nerves II through XII grossly intact. LABORATORY DATA: WBC is 5.9 HgB 10.1 platelets 340 Na 122 potassium went up from 3.1-3.9 creatinine 0.71 Magnesium 1.3 up to 1.9 Albumin 1.9 IMAGING: Abdominal x-ray nonspecific bowel gas pattern which could reflect mild ileus. Computed tomography scan of abdomen and pelvis pending Chest CTA pending Venous Doppler positive DVT right lower extremity Echo EF of 50-55% ASSESSMENT: 1. Abdominal ileus likely due to electrolyte abnormality 2. Nausea 3. Hyponatremia 4. Hypokalemia 5. Protein calorie malnutrition 6. Acute DVT right leg 7. Chronic decubitus ulcer PLAN: -Follow up on computed tomography scan abdomen and pelvis -Add Reglan for ileus and nausea -Continue to correct electrolytes -Plan for PEG tube placement on -Continue supportive care Physician English Teacher note has been reviewed by physician. Signing provider agrees with the documented findings, assessment, and plan of care. Past Medical History Past Medical History: COPD, Diabetes Mellitus, Deep Vein Thrombosis (DVT), Hyperlipidemia, Hypertension, Pneumonia, Prostate Disorder, Sleep Apnea/CPAP/BIPAP Additional Past Medical History / Comment(s): sleep apnea uses cpap machine, her niated disc-has had injections, past stress test pt stated was wnl History of Any Multi-Drug Resistant Organisms: None Reported Past Surgical History: Hernia Repair Additional Past Surgical History / Comment(s): hydrocelectomy, vasectomy, colonoscopy/polypectomy-benign. umbilical hernia repair, injections for herniated disc. Past Anesthesia/Blood Transfusion Reactions: No Reported Reaction Additional Past Anesthesia/Blood Transfusion Reaction / Comm: clausterphobia. pt stated has never had a blood transfusion Past Psychological History: No Psychological Hx Reported Smoking Status: Never smoker Past Alcohol Use History: Occasional Additional Past Alcohol Use History / Comment(s): approx 2008 briefly smoked the occ cigar. pt has a rare drink Past Drug Use History: Marijuana Additional Drug Use History / Comment(s): approx every 3 months - Past Family History Mother Family Medical History: Cancer, Eye Disorder Additional Family Medical History / Comment(s): skin cancer, macular degeneration Father Family Medical History: Coronary Artery Disease (CAD), Dementia Additional Family Medical History / Comment(s): cabg, stents, uti/sepsis Medications and Allergies Home Medications Medication Instructions Recorded Confirmed Type Aspirin EC [Ecotrin Low Dose] 81 mg PO DAILY 08/23/18 12/31/21 History Tamsulosin [Flomax] 0.4 mg PO DAILY 08/23/18 12/31/21 History rOPINIRole HCL [Requip] 1 mg PO HS 08/23/18 12/31/21 History Ipratropium-Albuterol Nebulize 3 ml INHALATION RT-QID ml 07/16/21 12/31/21 Rx [Duoneb 0.5 mg-3 mg/3 ml Soln] Ascorbic Acid [Vitamin C] 1,000 mg PO DAILY@0800 09/09/21 12/31/21 History Cholecalciferol [Vitamin D3 (25 25 mcg PO DAILY 09/09/21 12/31/21 History Mcg = 1000 Iu)] Multivitamins, Thera [Multivitamin 1 tab PO DAILY 09/09/21 12/31/21 History (formulary)] hydrALAZINE HCL 50 mg PO BID@0500,1600 09/09/21 12/31/21 History Gabapentin [Neurontin] 100 mg PO HS #3 cap 10/01/21 12/31/21 Rx Acetaminophen [Acetaminophen ER] 650 mg PO Q6H PRN 12/31/21 12/31/21 History Albuterol Sulfate [Ventolin HFA] 2 puff INHALATION Q2H PRN 12/31/21 12/31/21 History Famotidine [Pepcid] 20 mg PO BID@0800,1600 12/31/21 12/31/21 History Folic Acid 0.8 mg PO DAILY 12/31/21 12/31/21 History HYDROcodone/APAP 5-325MG [[place] 1 tab PO Q6HR PRN 12/31/21 12/31/21 History 5-325] Metoprolol Tartrate [Lopressor] 50 mg PO BID@0800,1600 12/31/21 12/31/21 History Potassium Chloride ER [K-Dur 20] 20 meq PO DAILY 12/31/21 12/31/21 History Potassium Chloride ER [K-Dur 20] 40 meq PO HS 12/31/21 12/31/21 History Promethazine HCl 12.5 mg PO Q12H PRN 12/31/21 12/31/21 History dronabinoL [Dronabinol] 5 mg PO BID@1200,1700 12/31/21 12/31/21 History Allergies Allergy/AdvReac Type Severity Reaction Status Date / Time No Known Allergies Allergy Verified 12/31/21 15:42 Surgical - Exam Vital Signs Temp Pulse Resp BP Pulse Ox 97.4 F L 125 H 22 123/78 98 12/31/21 12:45 12/31/21 12:45 12/31/21 12:45 12/31/21 12:45 12/31/21 12:45 Results - Labs 01/03/22 08:32 01/03/22 08:32 Abnormal Lab Results - Last 24 Hours (Table) 01/02/22 01/03/22 01/03/22 Range/Units 23:45 08:32 08:32 RBC 3.63 L (4.30-5.90) m/uL Hgb 10.1 L (13.0-17.5) gm/dL Hct 30.4 L (39.0-53.0) % RDW 17.5 H (11.5-15.5) % Sodium 122 L (137-145) mmol/L Carbon Dioxide 14 L (22-30) mmol/L Glucose 102 H (74-99) mg/dL Calcium 7.3 L (8.4-10.2) mg/dL Delta Bilirubin 0.7 H (0.0-0.2) mg/dL Alkaline Phosphatase 176 H (38-126) U/L Total Protein 4.5 L (6.3-8.2) g/dL Albumin 1.9 L (3.5-5.0) g/dL Urine Protein 1+ H (Negative) Urine Ketones 1+ H (Negative) Urine Bilirubin 1+ H (Negative) Urine Bacteria Rare H (None) /hpf Urine Mucus Rare H (None) /hpf Diabetes panel 01/03/22 Range/Units 08:32 Sodium 122 L (137-145) mmol/L Potassium 3.9 (3.5-5.1) mmol/L Chloride 100 (98-107) mmol/L Carbon Dioxide 14 L (22-30) mmol/L BUN 10 (9-20) mg/dL Creatinine 0.71 (0.66-1.25) mg/dL Glucose 102 H (74-99) mg/dL Calcium 7.3 L (8.4-10.2) mg/dL AST 47 (17-59) U/L ALT 22 (4-49) U/L Alkaline Phosphatase 176 H (38-126) U/L Total Protein 4.5 L (6.3-8.2) g/dL Albumin 1.9 L (3.5-5.0) g/dL Calcium panel 01/03/22 Range/Units 08:32 Calcium 7.3 L (8.4-10.2) mg/dL Albumin 1.9 L (3.5-5.0) g/dL Pituitary panel 01/03/22 Range/Units 08:32 Sodium 122 L (137-145) mmol/L Potassium 3.9 (3.5-5.1) mmol/L Chloride 100 (98-107) mmol/L Carbon Dioxide 14 L (22-30) mmol/L BUN 10 (9-20) mg/dL Creatinine 0.71 (0.66-1.25) mg/dL Glucose 102 H (74-99) mg/dL Calcium 7.3 L (8.4-10.2) mg/dL Adrenal panel 01/03/22 Range/Units 08:32 Sodium 122 L (137-145) mmol/L Potassium 3.9 (3.5-5.1) mmol/L Chloride 100 (98-107) mmol/L Carbon Dioxide 14 L (22-30) mmol/L BUN 10 (9-20) mg/dL Creatinine 0.71 (0.66-1.25) mg/dL Glucose 102 H (74-99) mg/dL Calcium 7.3 L (8.4-10.2) mg/dL Total Bilirubin 0.9 (0.2-1.3) mg/dL AST 47 (17-59) U/L ALT 22 (4-49) U/L Alkaline Phosphatase 176 H (38-126) U/L Total Protein 4.5 L (6.3-8.2) g/dL Albumin 1.9 L (3.5-5.0) g/dL
--- NOTE | 2022-01-03 15:22 | CT ---
EXAMINATION TYPE: CT abdomen pelvis w con DATE OF EXAM: 01/03/2022 COMPARISON: CT dated 09/21/2021 HISTORY: abdominal pain CT DLP: 1634.5 mGycm Automated exposure control for dose reduction was used. TECHNIQUE: Helical acquisition of images was performed from the lung bases through the pelvis. CONTRAST: Performed without Oral Contrast and with IV Contrast, patient injected with 100 mL of Isovue 370. FINDINGS: LUNG BASES: CT scan of the chest is dictated separately. LIVER/GB: Previous cholecystectomy. Interval removal of the previously seen Parker-Mcdonald drainage ca theter with significant improvement of the previously seen acute postoperative changes/collection at the operative bed. Suspected hypodense ill-defined area with tiny air bubble seen within the hepatic parenchyma adjacent to the gallbladder fossa measuring up to 2.7 cm compared to 5.1 cm previously, li xavier representing a more organized collection/abscess however other lesion at that location cannot be excluded. Further ultrasound or MRI assessment can be considered. Suspected hepatic steatosis. No in tra or extra hepatic biliary tree dilatation. PANCREAS: No significant abnormality is seen. SPLEEN: No significant abnormality is seen. ADRENALS: No significant abnormality is seen. KIDNEYS: Suspected tiny cyst at the upper pole of the right kidney, otherwise unremarkable kidneys. FREE AIR: No free air is visualized. RETROPERITONEAL ADENOPATHY: None visualized REPRODUCTIVE ORGANS: No significant abnormality is seen URINARY BLADDER: No significant abnormality is seen. PELVIC ADENOPATHY: No pathologically enlarged pelvic lymph nodes. OSSEOUS STRUCTURES: No gross aggressive bone lesion. BOWEL: No significant abnormality is seen. OTHER: Scattered arterial atherosclerotic calcifications. No sizable ascites. Right upper quadrant goins bcutaneous incision. Interval improvement of the acute postoperative changes in the abdomen. Minimal free pelvic fluid. IMPRESSION: Interval improvement of the postoperative changes as described above. Persistent heterogeneous hypode nse area in the hepatic parenchyma adjacent to the gallbladder fossa that could represent a more orga nized collection/abscess. Other lesion at that location cannot be excluded. Further ultrasound or MRI assessment can be considered if clinically required. Other interval changes and incidental findings as described above.
[2022-01-03 16:25] LABS: Estimated Average Glucose UNC
[2022-01-03 16:35] LABS: Glucose,Whole Blood 102 mg/dL (70-110)
[2022-01-03] MEDS: METOCLOPRAMIDE 5 MG/ML 2 ML VIAL IVP SCH ×2 (16:51→23:56)
[2022-01-03] MEDS ORDERED: FUROSEMIDE 10 MG/ML 2 ML VIAL IV ONE (19:27)
--- NOTE | 2022-01-03 19:52 | P.PN ---
Subjective this is a pleasant 61 yo M with past medical history of COPD, Diabetes Mellitus, Deep Vein Thrombosis, Hyperlipidemia, Hypertension, Sleep Apnea/CPAP/BIPAP He was in the hospital on 09/2021 for severe hypertension from decreased oral intake, acute metabolic encephalopathy, chronic congestive heart failure, diastolic with ejection fraction 55-60%, acute kidney injury, sinus tachycardia, status post cholecystectomy for his gangrenous cholecystitis, restless leg syndrome, BPH, chronic medical debility i talkled to the pt and at bed side , pt is from [facility] , he was [facility] since June 2021. At that time she was in the hospital for acute hypoxic respiratory failure of unknown causes. He needed intubation at that time. He had complete opacification in the left hemithorax he had 2 bronchoscopy done which was negative for microbial growth. He has another admission on 09/2021. Patient and states that he came here because he wanted to get the PEG tube because he was not eating anything since June and he lost a lot of weight he used to weigh 333 pounds and now 193. He states that his main issue is no appetite, he denies choking but he has sometimes nausea that prevent him from eating. Is also short of breath with cough and clear yellow phlegm but no chest pain, no abdominal pain. He has loose bowel movement once or twice a week. Also he has unstageable pressure decubitus ulcer status post debridement, he has wound VAC in place. Patient also complaining of from chronic left leg pain and tenderness, he would not allow someone to drop his leg because it hurts a lot. Inspection looks normal, no trauma. Also was complaining from weakness in both lower extremities since June Patient is tachycardic around 110, on admission heart rate was 125 afebrile. His lab reviewed including CBC showed mild anemia of 11.9, rest of CBC is unremarkable. INR is unremarkable at 1.1. Sodium was low at 123. Creatinine normal 0.8. Glucose was low at 66. Chest x-ray: No acute process. 01/02/2022 Last night patient was started on therapeutic dose Lovenox for acute right leg DVT, CT angiography chest and echo could not be done because have no IV access, patient was transferred to a small IV access was obtained in the right upper arm, not good enough for CT of the chest test or aggressive treatment. However IV fluids could be provided. Blood pressure is improved up to 110/68, however patient still tachycardic. Patient could not eat because of severe nausea and vomiting, H time he put something in his monthly follow-up as per bedside nurse, KUB showing some evidence of ileus, surgical team consult obtained. Social evaluation under direct consults are pending. 01/03/2022 Patient awake alert, looks more comfortable than the first taken to the hospital, less tachypneic, he denies any chest pain or abdominal pain. He tried to take small bites of mashed potato yesterday and he could not consume it and he immediately felt to throw up. CT of the chest is negative for PE, he remains on Lovenox for acute right DVT. CT of the abdomen is suspicious for a complex collection possible abscess although it's the size 5 cm diameter 2.7 cm, recommended ultrasound versus MRI, were going to order a liver ultrasound although it is of less sensitivity especially with this patient large body habitus however it is less invasive than MRI. Also flowcalcitonin is the slightly elevated. He is slightly tachycardic although is better than before. Blood pressure 93/63. Today sodium dropped 127 down to 122 because of this we held his IV fluids and reordered anemia workup in the urine and the serum, we will monitor his sodium level tomorrow if no improvement and may consider further workup. Surgical team consult is called, the plan for PEG tube placement on . Patient originally came to the hospital the PEG tube placement. Patient is not consuming his oral medication but we stopped his gabapentin and ropinirole. Review of systems CONSTITUTIONAL: No fever, no malaise, no fatigue. HEENT: No recent visual problems or hearing problems. Denied any sore throat. CARDIOVASCULAR: No orthopnea, PND, no palpitations, no syncope. PULMONARY: No shortness of breath, no cough, no hemoptysis. NEUROLOGICAL: No headaches, no weakness, no numbness. HEMATOLOGICAL: Denies any bleeding or petechiae. Active Medications Generic Name Dose Route Start Last Admin Trade Name Freq PRN Reason Stop Dose Admin Hydrocodone Bitart/Acetaminophen 1 each 12/31/21 20:41 Hydrocodone/Apap 5-325mg 1 Each Tab PO Q6HR PRN Pain Albuterol Sulfate 2.5 mg 12/31/21 20:41 12/31/21 21:36 Albuterol Nebulized 2.5 Mg/3 Ml INHALATION 2.5 mg Q2H PRN Administration [employer]WAY PATENCY Albuterol/Ipratropium 3 ml 01/01/22 08:00 01/03/22 19:28 Ipratropium-Albuterol 3 Ml Neb INHALATION 3 ml RT-QID [facility] Administration Ascorbic Acid 1,000 mg 01/01/22 08:00 01/03/22 12:01 Ascorbic Acid 500 Mg Tab PO Not Given DAILY@0800 [facility] Aspirin 81 mg 01/01/22 09:00 01/03/22 12:01 Aspirin 81 Mg PO Not Given DAILY [facility] Cholecalciferol 25 mcg 01/01/22 09:00 01/03/22 12:02 Cholecalciferol 25 Mcg (1000 Iu) Tablet PO Not Given DAILY [facility] Dronabinol 5 mg 01/01/22 12:00 01/03/22 16:32 Dronabinol 2.5 Mg Cap PO Not Given BID@1200,1700 [facility] Enoxaparin Sodium 90 mg 01/01/22 14:00 01/03/22 16:51 Enoxaparin 100 Mg/Ml Syringe SQ 90 mg Q12H [facility] Administration Folic Acid 1 mg 01/01/22 09:00 01/03/22 12:02 Folic Acid 1 Mg Tab PO Not Given DAILY [facility] Hydromorphone HCl 0.5 mg 12/31/21 20:44 Hydromorphone 0.5 Mg/0.5 Ml Syringe IVP Q4HR PRN Pain Magnesium Oxide 400 mg 01/02/22 02:00 01/03/22 16:31 Magnesium Oxide 400 Mg Tab PO Not Given TID [facility] Metoclopramide HCl 10 mg 01/03/22 18:00 01/03/22 16:51 Metoclopramide 5 Mg/Ml 2 Ml Vial IVP 10 mg Q6HR [facility] Administration Metoprolol Tartrate 50 mg 01/01/22 08:00 01/03/22 16:31 Metoprolol Tartrate 50 Mg Tab PO Not Given BID@0800,1600 [facility] Miscellaneous Information 1 each 01/02/22 06:58 Magnesium Replacement Protocol 1 Each [facility] MISCELLANE DAILY PRN Per Protocol Protocol Miscellaneous Information 1 each 01/02/22 07:03 Potassium Replacement Protocol 1 Each [facility] MISCELLANE DAILY PRN Per Protocol Protocol Multivitamins 1 each 01/01/22 09:00 01/03/22 12:02 Multivitamins, Thera 1 Each Tab PO Not Given DAILY [facility] Naloxone HCl 0.2 mg 12/31/21 14:52 Naloxone 0.4 Mg/Ml 1 Ml Vial IV Q2M PRN Opioid Reversal Ondansetron HCl 4 mg 12/31/21 21:23 01/02/22 18:15 Ondansetron 4 Mg/2 Ml Vial IVP 4 mg Q6HR PRN Administration Nausea And Vomiting Pantoprazole Sodium 40 mg 12/31/21 21:00 01/03/22 08:54 Pantoprazole 40 Mg/10 Ml Vial IVP 40 mg BID [facility] Administration Potassium Chloride 20 meq 01/01/22 09:00 01/03/22 12:02 Potassium Chloride Er 20 Meq Tab.Er PO Not Given DAILY [facility] Potassium Chloride 40 meq 12/31/21 21:00 01/02/22 21:26 Potassium Chloride Er 20 Meq Tab.Er PO Not Given HS [facility] Tamsulosin HCl 0.4 mg 01/01/22 09:00 01/03/22 12:03 Tamsulosin 0.4 Mg Cap.Er.24h PO Not Given DAILY [facility] Objective - Vital Signs Vital signs: Vital Signs Temp 97.3 F L 01/03/22 08:00 Pulse 117 H 01/03/22 08:00 Resp 16 01/03/22 08:00 BP 114/56 01/03/22 08:00 Pulse Ox 100 01/03/22 07:29 FiO2 28 01/02/22 16:04 Intake & Output 01/02/22 01/03/22 01/03/22 18:59 06:59 18:59 Output Total 0 Balance 0 Output: Urine 0 Other: Voiding Method External Catheter External Catheter - Exam GENERAL: The patient is alert and oriented x3, in no mild acute distress. BMI is 29.3. Patient looks pale and tachycardic HEENT: Pupils are round and equally reacting to light. EOMI. No scleral icterus. No conjunctival pallor. Normocephalic, atraumatic. No pharyngeal erythema. No thyromegaly. CARDIOVASCULAR: S1 and S2 present. No murmurs, rubs, or gallops. Mild tachypnea PULMONARY: Chest is clear to auscultation, no wheezing or crackles. ABDOMEN: Soft, nontender, nondistended, normoactive bowel sounds. No palpable organomegaly. -MUSCULOSKELETAL: No joint swelling or deformity. Unstageable sacral pressure ulcer -EXTREMITIES: No cyanosis, clubbing, or pedal edema. Left leg tenderness -NEUROLOGICAL: Cranial nerves are grossly intact. He has severe chronic bilateral lower extremity weakness (chronic 6 month as per pt), meningeal signs are absent. No sensory abnormality, no numbness or tingling SKIN: No rashes. no petechiae. - Labs CBC & Chem 7: 01/03/22 08:32 01/03/22 08:32 Labs: Abnormal Lab Results - Last 24 Hours (Table) 01/02/22 01/03/22 01/03/22 Range/Units 23:45 08:32 08:32 RBC 3.63 L (4.30-5.90) m/uL Hgb 10.1 L (13.0-17.5) gm/dL Hct 30.4 L (39.0-53.0) % RDW 17.5 H (11.5-15.5) % Sodium 122 L (137-145) mmol/L Carbon Dioxide 14 L (22-30) mmol/L Glucose 102 H (74-99) mg/dL Calcium 7.3 L (8.4-10.2) mg/dL Delta Bilirubin 0.7 H (0.0-0.2) mg/dL Alkaline Phosphatase 176 H (38-126) U/L Total Protein 4.5 L (6.3-8.2) g/dL Albumin 1.9 L (3.5-5.0) g/dL Urine Protein 1+ H (Negative) Urine Ketones 1+ H (Negative) Urine Bilirubin 1+ H (Negative) Urine Bacteria Rare H (None) /hpf Urine Mucus Rare H (None) /hpf Assessment and Plan Assessment: Persistent nausea and vomiting secondary to ileus, rule out other causes Complex liver collection adjacent to gallbladder fossa 2.7 cm suspicious for abscess versus other Hyponatremia Acute right leg DVT Severe appetite loss associated with Loss of weight and nausea Dehydration and hypovolemia, improving Unstageable chronic decubitus ulcer status post wound VAC placement Anemia of chronic diseases mellitus, With hyperglycemia on admission Hypertension Hyperlipidemia History of COPD Chronic congestive heart failure with ejection fraction 55-60% History of metabolic encephalopathy Sinus tachycardia Status post cholecystectomy Restless leg syndrome BPH Chronic medical debility Plan: This is a pleasant 61 years old male who presents with dehydration, loss of appetite and loss of weight, hyponatremia, bilateral leg pain and other medical problems Discontinue IV hydration, patient is not able to return drink and this will help bring his sodium up hopefully tomorrow, monitor sodium level, and workup for hyponatremia Continue with therapeutic dose of Lovenox , CTA is negative for PE liver ultrasound for possible liver abscess Surgical team are planning for PEG tube check urinalysis and bladder scan Labs and medications are reviewed.. Continue same treatment. Continue with symptomatic treatment. Resume home medication. Monitor lytes and vitals. DVT and GI prophylaxis. Further recommendations as per clinical course of the patient DVT prophylaxis: Subcutaneous Lovenox GI Prophylaxis: Ppi Prognosis is guarded
[2022-01-03 20:23] LABS: Glucose,Whole Blood 88 mg/dL (70-110)
[2022-01-04] MEDS: ENOXAPARIN 100 MG/ML SYRINGE SQ SCH ×2 (03:32→15:36)
[2022-01-04] MEDS: METOCLOPRAMIDE 5 MG/ML 2 ML VIAL IVP SCH ×5 (06:10→17:35)
[2022-01-04 06:26] LABS: Glucose,Whole Blood 72 mg/dL (70-110)
--- NOTE | 2022-01-04 08:28 | US ---
EXAMINATION TYPE: US liver DATE OF EXAM: 01/04/2022 COMPARISON: CT dated 01/03/2022 CLINICAL HISTORY: possible liver abscess near GB FOSSA. Ill-defined area adjacent to GB fossa visuali zed on CT EXAM MEASUREMENTS: Liver Length: 16.0 cm Gallbladder Wall: Surgically absent Right Kidney: 10.5 x 6.6 x 5.3 cm technical limitations due to large amount of overlying bowel content Pancreas: Obscured by bowel gas Liver: Obscured by overlying bowel gas, only seen intercostally, limited evaluation, attenuating, he terogeneous, possible complex area near GB fossa = 3.1 x 3.7 x 2.7cm Gallbladder: Surgically absent Evidence for sonographic Virgen's sign: no CBD: Obscured by overlying bowel gas Right Kidney: no evidence of hydronephrosis IMPRESSION: Technically difficult ultrasound. Previous cholecystectomy. Complex area is seen at the gallbladder f isa or within the hepatic parenchyma adjacent to it, containing a few air bubbles and likely corresp onding to the abnormality seen on yesterday's CT scan. It could represent a small abscess formation/o rganized collection. Recommend clinical correlation. Further MRI assessment can be considered if clin ically required. Questionable hepatic steatosis.
[2022-01-04] MEDS: MAGNESIUM OXIDE 400 MG TAB PO SCH ×3 (09:00→21:25)
[2022-01-04] MEDS: ASPIRIN 81 MG PO SCH (09:00)
[2022-01-04] MEDS: POTASSIUM CHLORIDE ER 20 MEQ TAB.ER PO SCH ×2 (09:00→21:25)
[2022-01-04] MEDS: FOLIC ACID 1 MG TAB PO SCH (09:00)
[2022-01-04] MEDS: METOPROLOL TARTRATE 50 MG TAB PO SCH ×2 (09:00→17:31)
[2022-01-04] MEDS: ASCORBIC ACID 500 MG TAB PO SCH (09:00)
[2022-01-04] MEDS: MULTIVITAMINS, THERA 1 EACH TAB PO SCH (09:00)
[2022-01-04] MEDS: CHOLECALCIFEROL 25 MCG (1000 IU) TABLET PO SCH (09:00)
[2022-01-04] MEDS: TAMSULOSIN 0.4 MG CAP.ER.24H PO SCH (09:01)
[2022-01-04] MEDS: PANTOPRAZOLE 40 MG/10 ML VIAL IVP SCH ×2 (09:15→21:44)
[2022-01-04] MEDS: IPRATROPIUM-ALBUTEROL 3 ML NEB INHALATION SCH ×4 (09:46→19:49)
[2022-01-04 10:34] LABS: Anisocytosis Slight; Basophils % (A) 0 %; Eosinophils % (A) 0 %; HCT 31.1 % (39.0-53.0); HGB 10.2 gm/dL (13.0-17.5); Lymphocytes # (A) 0.8 k/uL (1.0-4.8); Lymphocytes % (A) 14 %; MCH 27.5 pg (25.0-35.0); MCHC 32.7 g/dL (31.0-37.0); MCV 84.3 fL (80.0-100.0); Mean Platelet Volume 7.4; Monocytes # (A) 0.2 k/uL (0-1.0); Monocytes % (A) 4 %; Neutrophils # (A) 4.5 k/uL (1.3-7.7); Neutrophils % (A) 80 %; Platelet Count 313 k/uL (150-450); RBC 3.69 m/uL (4.30-5.90); RDW 17.6 % (11.5-15.5); WBC 5.7 k/uL (3.8-10.6)
[2022-01-04 10:44] LABS: ALT 22 U/L (4-49); AST 44 U/L (17-59); African American GFR (CKD) >90 (>60 ml/min/1.73 sqM); Albumin 1.8 g/dL (3.5-5.0); Alkaline Phosphatase 180 U/L (38-126); Anion Gap 8 mmol/L; Bilirubin, Delta 0.8 mg/dL (0.0-0.2); Bilirubin,Unconjugated 0.1 mg/dL (0.0-1.1); Blood Urea Nitrogen 9 mg/dL (9-20); Calcium 7.4 mg/dL (8.4-10.2); Carbon Dioxide 14 mmol/L (22-30); Chloride 99 mmol/L (98-107); Glucose 72 mg/dL (74-99); Magnesium 1.7 mg/dL (1.6-2.3); Non-African American GFR(CKD) >90 (>60 ml/min/1.73 sqM); Phosphorus 2.1 mg/dL (2.5-4.5); Potassium 3.9 mmol/L (3.5-5.1); Sodium 121 mmol/L (137-145); Total Bilirubin 0.9 mg/dL (0.2-1.3); Total Protein 4.4 g/dL (6.3-8.2)
--- NOTE | 2022-01-04 11:33 | P.PN ---
Subjective this is a pleasant 61 yo M with past medical history of COPD, Diabetes Mellitus, Deep Vein Thrombosis, Hyperlipidemia, Hypertension, Sleep Apnea/CPAP/BIPAP He was in the hospital on 09/2021 for severe hypertension from decreased oral intake, acute metabolic encephalopathy, chronic congestive heart failure, diastolic with ejection fraction 55-60%, acute kidney injury, sinus tachycardia, status post cholecystectomy for his gangrenous cholecystitis, restless leg syndrome, BPH, chronic medical debility i talkled to the pt and at bed side , pt is from [facility] , he was detention since June 2021. At that time she was in the hospital for acute hypoxic respiratory failure of unknown causes. He needed intubation at that time. He had complete opacification in the left hemithorax he had 2 bronchoscopy done which was negative for microbial growth. He has another admission on 09/2021. Patient and states that he came here because he wanted to get the PEG tube because he was not eating anything since June and he lost a lot of weight he used to weigh 333 pounds and now 193. He states that his main issue is no appetite, he denies choking but he has sometimes nausea that prevent him from eating. Is also short of breath with cough and clear yellow phlegm but no chest pain, no abdominal pain. He has loose bowel movement once or twice a week. Also he has unstageable pressure decubitus ulcer status post debridement, he has wound VAC in place. Patient also complaining of from chronic left leg pain and tenderness, he would not allow someone to drop his leg because it hurts a lot. Inspection looks normal, no trauma. Also was complaining from weakness in both lower extremities since June Patient is tachycardic around 110, on admission heart rate was 125 afebrile. His lab reviewed including CBC showed mild anemia of 11.9, rest of CBC is unremarkable. INR is unremarkable at 1.1. Sodium was low at 123. Creatinine normal 0.8. Glucose was low at 66. Chest x-ray: No acute process. 01/02/2022 Last night patient was started on therapeutic dose Lovenox for acute right leg DVT, CT angiography chest and echo could not be done because have no IV access, patient was transferred to a small IV access was obtained in the right upper arm, not good enough for CT of the chest test or aggressive treatment. However IV fluids could be provided. Blood pressure is improved up to 110/68, however patient still tachycardic. Patient could not eat because of severe nausea and vomiting, H time he put something in his monthly follow-up as per bedside nurse, KUB showing some evidence of ileus, surgical team consult obtained. Social evaluation under direct consults are pending. 01/03/2022 Patient awake alert, looks more comfortable than the first taken to the hospital, less tachypneic, he denies any chest pain or abdominal pain. He tried to take small bites of mashed potato yesterday and he could not consume it and he immediately felt to throw up. CT of the chest is negative for PE, he remains on Lovenox for acute right DVT. CT of the abdomen is suspicious for a complex collection possible abscess although it's the size 5 cm diameter 2.7 cm, recommended ultrasound versus MRI, were going to order a liver ultrasound although it is of less sensitivity especially with this patient large body habitus however it is less invasive than MRI. Also flowcalcitonin is the slightly elevated. He is slightly tachycardic although is better than before. Blood pressure 93/63. Today sodium dropped 127 down to 122 because of this we held his IV fluids and reordered anemia workup in the urine and the serum, we will monitor his sodium level tomorrow if no improvement and may consider further workup. Surgical team consult is called, the plan for PEG tube placement on . Patient originally came to the hospital the PEG tube placement. Patient is not consuming his oral medication but we stopped his gabapentin and ropinirole. 01/04/2022 Kirsten Bach feels better today, he does not feel dizziness while he is lying in bed all the time. He still have low appetite but no chest pain or dyspnea, no abdominal pain. He still complaining from pain in his legs and he has right leg DVT been on Lovenox with plan to switch him to heparin drip on today as he got midline Blood pressure is 87/56, heart rate 120, sodium is 121 On admission his sodium was still low and was started on D5 normal saline at 100 mL/h however after initial improvement sodium dropped to 121 yesterday so we held his IV fluid and the evening sodium improved 124 (no iv lasix given), however this morning is 121 again. We send urine studies and I'll consult deck supervisor. Also patient has negative CTPA for pulmonary embolism but CT of the abdomen and pelvis showing possible gallbladder fossa abscess or complex fluid collection although it is improved from previous 5 cm down to 2.7 centimeters. The recommended liver ultrasound versus MRI, ultrasound shows the same findings. Also surgery due on the case Review of systems CONSTITUTIONAL: No fever, no malaise, no fatigue. HEENT: No recent visual problems or hearing problems. Denied any sore throat. CARDIOVASCULAR: No orthopnea, PND, no palpitations, no syncope. PULMONARY: No shortness of breath, no cough, no hemoptysis. NEUROLOGICAL: No headaches, no weakness, no numbness. HEMATOLOGICAL: Denies any bleeding or petechiae. Active Medications Generic Name Dose Route Start Last Admin Trade Name Freq PRN Reason Stop Dose Admin Hydrocodone Bitart/Acetaminophen 1 each 12/31/21 20:41 Hydrocodone/Apap 5-325mg 1 Each Tab PO Q6HR PRN Pain Albuterol Sulfate 2.5 mg 12/31/21 20:41 12/31/21 21:36 Albuterol Nebulized 2.5 Mg/3 Ml INHALATION 2.5 mg Q2H PRN Administration [employer] PATENCY Albuterol/Ipratropium 3 ml 01/01/22 08:00 01/04/22 09:46 Ipratropium-Albuterol 3 Ml Neb INHALATION 3 ml RT-QID [facility] Administration Ascorbic Acid 1,000 mg 01/01/22 08:00 01/04/22 09:00 Ascorbic Acid 500 Mg Tab PO Not Given DAILY@0800 [facility] Aspirin 81 mg 01/01/22 09:00 01/04/22 09:00 Aspirin 81 Mg PO Not Given DAILY [facility] Cholecalciferol 25 mcg 01/01/22 09:00 01/04/22 09:00 Cholecalciferol 25 Mcg (1000 Iu) Tablet PO Not Given DAILY [facility] Dronabinol 5 mg 01/01/22 12:00 01/03/22 16:32 Dronabinol 2.5 Mg Cap PO Not Given BID@1200,1700 [facility] Enoxaparin Sodium 90 mg 01/01/22 14:00 01/04/22 03:32 Enoxaparin 100 Mg/Ml Syringe SQ 90 mg Q12H [facility] Administration Folic Acid 1 mg 01/01/22 09:00 01/04/22 09:00 Folic Acid 1 Mg Tab PO Not Given DAILY [facility] Hydromorphone HCl 0.5 mg 12/31/21 20:44 Hydromorphone 0.5 Mg/0.5 Ml Syringe IVP Q4HR PRN Pain Magnesium Oxide 400 mg 01/02/22 02:00 01/04/22 09:00 Magnesium Oxide 400 Mg Tab PO Not Given TID [facility] Metoclopramide HCl 10 mg 01/03/22 18:00 01/04/22 06:10 Metoclopramide 5 Mg/Ml 2 Ml Vial IVP 10 mg Q6HR [facility] Administration Metoprolol Tartrate 50 mg 01/01/22 08:00 01/04/22 09:00 Metoprolol Tartrate 50 Mg Tab PO Not Given BID@0800,1600 [facility] Miscellaneous Information 1 each 01/02/22 06:58 Magnesium Replacement Protocol 1 Each Mis MISCELLANE DAILY PRN Per Protocol Protocol Miscellaneous Information 1 each 01/02/22 07:03 Potassium Replacement Protocol 1 Each Misc MISCELLANE DAILY PRN Per Protocol Protocol Multivitamins 1 each 01/01/22 09:00 01/04/22 09:00 Multivitamins, Thera 1 Each Tab PO Not Given DAILY [facility] Naloxone HCl 0.2 mg 12/31/21 14:52 Naloxone 0.4 Mg/Ml 1 Ml Vial IV Q2M PRN Opioid Reversal Ondansetron HCl 4 mg 12/31/21 21:23 01/02/22 18:15 Ondansetron 4 Mg/2 Ml Vial IVP 4 mg Q6HR PRN Administration Nausea And Vomiting Pantoprazole Sodium 40 mg 12/31/21 21:00 01/04/22 09:15 Pantoprazole 40 Mg/10 Ml Vial IVP 40 mg BID [facility] Administration Potassium Chloride 20 meq 01/01/22 09:00 01/04/22 09:00 Potassium Chloride Er 20 Meq Tab.Er PO Not Given DAILY [facility] Potassium Chloride 40 meq 12/31/21 21:00 01/03/22 22:24 Potassium Chloride Er 20 Meq Tab.Er PO Not Given [facility] Tamsulosin HCl 0.4 mg 01/01/22 09:00 01/04/22 09:01 Tamsulosin 0.4 Mg Cap.Er.24h PO Not Given DAILY [facility] Objective - Vital Signs Vital signs: Vital Signs Temp 97.6 F 01/04/22 08:00 Pulse 120 H 01/04/22 08:00 Resp 14 01/04/22 08:00 BP 87/56 01/04/22 08:00 Pulse Ox 97 01/04/22 08:00 FiO2 28 01/02/22 16:04 Intake & Output 01/03/22 01/04/22 01/04/22 18:59 06:59 18:59 Intake Total 800 10 Balance 800 10 Intake: IV 10 Invasive Line 2 10 Intake, IV Titration 800 Amount Dextrose 5%-0.9% NaCl 1, 800 000 ml @ 100 mls/hr IV . Q10H [facility] Rx#:[id number] Other: Voiding Method External Catheter External Catheter - Exam GENERAL: The patient is alert and oriented x3, in no mild acute distress. BMI is 29.3. Patient looks pale and tachycardic HEENT: Pupils are round and equally reacting to light. EOMI. No scleral icterus. No conjunctival pallor. Normocephalic, atraumatic. No pharyngeal erythema. No thyromegaly. CARDIOVASCULAR: S1 and S2 present. No murmurs, rubs, or gallops. Mild tachypnea PULMONARY: Chest is clear to auscultation, no wheezing or crackles. ABDOMEN: Soft, nontender, nondistended, normoactive bowel sounds. No palpable organomegaly. -MUSCULOSKELETAL: No joint swelling or deformity. Unstageable sacral pressure ulcer -EXTREMITIES: No cyanosis, clubbing, or pedal edema. Left leg tenderness -NEUROLOGICAL: Cranial nerves are grossly intact. He has severe chronic bilateral lower extremity weakness (chronic 6 month as per pt), meningeal signs are absent. No sensory abnormality, no numbness or tingling SKIN: No rashes. no petechiae. - Labs CBC & Chem 7: 01/04/22 10:06 01/04/22 10:06 Labs: Abnormal Lab Results - Last 24 Hours (Table) 01/03/22 01/03/22 01/03/22 Range/Units 08:32 08:37 22:20 RBC 3.63 L (4.30-5.90) m/uL Hgb 10.1 L (13.0-17.5) gm/dL Hct 30.4 L (39.0-53.0) % RDW 17.5 H (11.5-15.5) % Sodium 124 L (137-145) mmol/L Procalcitonin 0.19 H (0.02-0.09) ng/mL Assessment and Plan Assessment: Complex liver collection adjacent to gallbladder fossa 2.7 cm suspicious for abscess versus other Hyponatremia Persistent nausea and vomiting secondary to ileus, rule out other causes Acute right leg DVT Severe appetite loss associated with Loss of weight and nausea Dehydration and hypovolemia, improving Unstageable chronic decubitus ulcer status post wound VAC placement Anemia of chronic diseases mellitus, With hyperglycemia on admission Hypertension Hyperlipidemia History of COPD Chronic congestive heart failure with ejection fraction 55-60% History of metabolic encephalopathy Sinus tachycardia Status post cholecystectomy Restless leg syndrome BPH Chronic medical debility Plan: This is a pleasant 61 years old male who presents with dehydration, loss of appetite and loss of weight, hyponatremia, bilateral leg pain and other medical problems Continue urine studies. Consult deck supervisor, monitor sodium level, and workup for hyponatremia Continue with therapeutic dose of Lovenox , CTA is negative for PE . Discussed with bed side nurse is ALLERGIC to heparin drip R today liver ultrasound is reviewed Surgical team are planning for PEG tube check urinalysis and bladder scan Labs and medications are reviewed.. Continue same treatment. Continue with symptomatic treatment. Resume home medication. Monitor lytes and vitals. DVT and GI prophylaxis. Further recommendations as per clinical course of the patient DVT prophylaxis: Subcutaneous Lovenox GI Prophylaxis: Ppi Prognosis is guarded The scope with the bedside nurse
[2022-01-04 11:56] LABS: Glucose,Whole Blood 75 mg/dL (70-110)
--- NOTE | 2022-01-04 12:41 | P.PN ---
Subjective Progress Note Date: 01/04/22 CHIEF COMPLAINT: Dehydration and failure to thrive HISTORY OF PRESENT ILLNESS: Patient lying in bed comfortably. Reports that his nausea has shown some improvement. Surgical service also following for ileus. CTA of the chest was negative for PE. He did have a CAT scan of the abdomen that demonstrated interval improvement of postoperative changes. Persistent heterogenous hypodense area in the hepatic parenchyma adjacent to the gallbladder fossa but could represent a more organized collection/abscess. Other lesion at that location cannot be excluded. Medicine service has ordered a liver US demonstrated complex area seen at the gallbladder fossa were within the hepatic parenchyma adjacent to it, containing a few air bubbles and likely corresponding to the abnormality seen on yesterday's computed tomography scan. It could represent a small abscess formation/organized collection. Recommend clinical correlation. Further MRI assessment can be considered if clinically required. Patient seen by infectious disease they've ordered a consult for interventional radiology for possible drainage of fluid collection. Patient denies any abdominal pain. No bowel movements recorded. WBC is 5.7 Hgb 10.2 platelets 313 sodium 121 K 3.9 creatinine 0.84 afebrile. Patient has been tachycardic. Patient seen and examined with Dr. whitaker PHYSICAL EXAM: VITAL SIGNS: Reviewed. GENERAL: Well-developed in no acute distress. HEENT: No sclera icterus. Extraocular movements grossly intact. Moist buccal mucosa. Head is atraumatic, normocephalic. ABDOMEN: Soft. Nondistended. Nontender. Patient does have compression dressing right lower abdomen where he is bleeding from Lovenox injection NEUROLOGIC: Alert and oriented. Cranial nerves II through XII grossly intact. ASSESSMENT: 1. Abdominal ileus likely due to electrolyte abnormality 2. Nausea 3. Hyponatremia 4. Hypokalemia 5. Severe Protein calorie malnutrition 6. Acute DVT right leg 7. Chronic decubitus ulcer 8. Fluid collection in the hepatic parenchyma adjacent to the gallbladder fossa PLAN: -Patient scheduled for PEG tube placement on , 01/06/2022 -Continue to correct electrolyte abnormality. -Nephrology management of hyponatremia -Agree with IR consult for liver fluid collection -Okay for clear liquids from surgical standpoint Physician Manager Report note has been reviewed by physician. Signing provider agrees with the documented findings, assessment, and plan of care. Objective - Vital Signs Vital signs: Vital Signs Temp 97.6 F 01/04/22 08:00 Pulse 115 H 01/04/22 09:59 Resp 14 01/04/22 08:00 BP 87/56 01/04/22 08:00 Pulse Ox 100 01/04/22 09:46 FiO2 28 01/02/22 16:04 Intake & Output 01/03/22 01/04/22 01/04/22 18:59 06:59 18:59 Intake Total 800 10 Balance 800 10 Weight 87.543 kg Intake: IV 10 Invasive Line 2 10 Intake, IV Titration 800 Amount Dextrose 5%-0.9% NaCl 1, 800 000 ml @ 100 mls/hr IV . Q10H [facility] Rx#:[id number] Other: Voiding Method External Catheter External Catheter - Labs CBC & Chem 7: 01/04/22 10:06 01/04/22 10:06 Labs: Abnormal Lab Results - Last 24 Hours (Table) 01/03/22 01/03/22 01/04/22 Range/Units 08:37 22:20 10:06 RBC 3.69 L (4.30-5.90) m/uL Hgb 10.2 L (13.0-17.5) gm/dL Hct 31.1 L (39.0-53.0) % RDW 17.6 H (11.5-15.5) % Lymphocytes # 0.8 L (1.0-4.8) k/uL Sodium 124 L (137-145) mmol/L Carbon Dioxide (22-30) mmol/L Glucose (74-99) mg/dL Calcium (8.4-10.2) mg/dL Phosphorus (2.5-4.5) mg/dL Delta Bilirubin (0.0-0.2) mg/dL Alkaline Phosphatase (38-126) U/L Total Protein (6.3-8.2) g/dL Albumin (3.5-5.0) g/dL Procalcitonin 0.19 H (0.02-0.09) ng/mL 01/04/22 Range/Units 10:06 RBC (4.30-5.90) m/uL Hgb (13.0-17.5) gm/dL Hct (39.0-53.0) % RDW (11.5-15.5) % Lymphocytes # (1.0-4.8) k/uL Sodium 121 L (137-145) mmol/L Carbon Dioxide 14 L (22-30) mmol/L Glucose 72 L (74-99) mg/dL Calcium 7.4 L (8.4-10.2) mg/dL Phosphorus 2.1 L (2.5-4.5) mg/dL Delta Bilirubin 0.8 H (0.0-0.2) mg/dL Alkaline Phosphatase 180 H (38-126) U/L Total Protein 4.4 L (6.3-8.2) g/dL Albumin 1.8 L (3.5-5.0) g/dL Procalcitonin (0.02-0.09) ng/mL
--- NOTE | 2022-01-04 13:35 | P.CON ---
Consult Note - . Consult date: 01/04/22 Assessment/Plan:: case reviewed. Vague findings on usn and CT 12 cm deep. limited percutaneous access. Finding not well seen on CT for approach. discussed with referring physician. Patient does not have a elevated white count. procedure deferred at this point.
[2022-01-04] MEDS: MIDODRINE 5 MG TAB PO SCH (17:32)
[2022-01-04 17:49] LABS: Anisocytosis Slight; HCT 31.8 % (39.0-53.0); HGB 10.1 gm/dL (13.0-17.5); MCHC 31.8 g/dL (31.0-37.0); Mean Platelet Volume 8.3; Platelet Count 337 k/uL (150-450); RBC 3.74 m/uL (4.30-5.90); RDW 17.4 % (11.5-15.5); WBC 5.6 k/uL (3.8-10.6)
[2022-01-04 20:26] LABS: Glucose,Whole Blood 93 mg/dL (70-110)
[2022-01-04] MEDS: SODIUM BICARBONATE TAB 650 MG TAB PO SCH (21:24)
[2022-01-04] MEDS: SODIUM CHLORIDE 0.45% 1,000 ML with SODIUM BICARB (1 MEQ/ML) 150 ML IV SCH ×2 (21:40)
--- NOTE | 2022-01-04 22:49 | P.CONS ---
History of Present Illness - Reason for Consult Consult date: 01/04/22 Possible liver abscess Requesting physician: Tomás E Sheet - Chief Complaint weakness and decreaed oral intake x few days - History of Present Illness Patient is a 61-year-old male with a past medical history significant for COPD diabetes mellitus DVT hyperlipidemia hypertension, open cholecystectomy for gangrenous cholecystitis completed on 09/17/2021 in this patient clinical course complicated by development of renal failure requiring dialysis and that admission patient subsequently stabilized and got discharged now presenting back to the hospital 4 days ago [facility] for evaluation of patient being lethargic and dehydrated, patient apparently was brought to the hospital for placement of a PEG tube as the patient not been eating or drinking and has lost significant amount of weight Main issues remains to be appetite no clear history of choking on the food or vomiting did have some nausea though and did have a bowel movement patient also have a pressure ulcer to the left gluteal area where the patient being monitored by the wound care team currently with a wound VAC, patient has been afebrile during this hospital stay patient did have normal white count with no left shift kidney function has been normal liver enzymes are normal UA has been negative patient did have a CT angiogram of the chest that was negative for PE did show some effusion also have a CT of abdominal pelvis interval improvement of the postoperative changes and there was concern for hyperdense lesion in the gallbladder. Concerning for possible abscess liver ultrasound confirmed the finding infectious disease was consulted with possible liver abscess patient is currently not on any systemic antibiotic therapy Review of Systems Positive point has been mentioned in the HPI rest of the systems are negative Past Medical History Past Medical History: COPD, Diabetes Mellitus, Deep Vein Thrombosis (DVT), Hyperlipidemia, Hypertension, Pneumonia, Prostate Disorder, Sleep Apnea/CPAP/BIP AP Additional Past Medical History / Comment(s): sleep apnea uses cpap machine, herniated disc-has had injections, past stress test pt stated was wnl History of Any Multi-Drug Resistant Organisms: None Reported Past Surgical History: Hernia Repair Additional Past Surgical History / Comment(s): hydrocelectomy, vasectomy, colonoscopy/polypectomy-benign. umbilical hernia repair, injections for hernia herman disc. Past Anesthesia/Blood Transfusion Reactions: No Reported Reaction Additional Past Anesthesia/Blood Transfusion Reaction / Comm: clausterphobia. pt stated has never had a blood transfusion Past Psychological History: No Psychological Hx Reported Smoking Status: Never smoker Past Alcohol Use History: Occasional Additional Past Alcohol Use History / Comment(s): approx 2008 briefly smoked the occ cigar. pt has a rare drink Past Drug Use History: Marijuana Additional Drug Use History / Comment(s): approx every 3 months - Past Family History Mother Family Medical History: Cancer, Eye Disorder Additional Family Medical History / Comment(s): skin cancer, macular degeneration Father Family Medical History: Coronary Artery Disease (CAD), Dementia Additional Family Medical History / Comment(s): cabg, stents, uti/sepsis Medications and Allergies Home Medications Medication Instructions Recorded Confirmed Type Aspirin EC [Ecotrin Low Dose] 81 mg PO DAILY 08/23/18 12/31/21 History Tamsulosin [Flomax] 0.4 mg PO DAILY 08/23/18 12/31/21 History rOPINIRole HCL [Requip] 1 mg PO HS 08/23/18 12/31/21 History Ipratropium-Albuterol Nebulize 3 ml INHALATION RT-QID ml 07/16/21 12/31/21 Rx [Duoneb 0.5 mg-3 mg/3 ml Soln] Ascorbic Acid [Vitamin C] 1,000 mg PO DAILY@0800 09/09/21 12/31/21 History Cholecalciferol [Vitamin D3 (25 25 mcg PO DAILY 09/09/21 12/31/21 History Mcg = 1000 Iu)] Multivitamins, Thera [Multivitamin 1 tab PO DAILY 09/09/21 12/31/21 History (formulary)] hydrALAZINE HCL 50 mg PO BID@0500,1600 09/09/21 12/31/21 History Gabapentin [Neurontin] 100 mg PO HS #3 cap 10/01/21 12/31/21 Rx Acetaminophen [Acetaminophen ER] 650 mg PO Q6H PRN 12/31/21 12/31/21 History Albuterol Sulfate [Ventolin HFA] 2 puff INHALATION Q2H PRN 12/31/21 12/31/21 History Famotidine [Pepcid] 20 mg PO BID@0800,1600 12/31/21 12/31/21 History Folic Acid 0.8 mg PO DAILY 12/31/21 12/31/21 History HYDROcodone/APAP 5-325MG [[place] 1 tab PO Q6HR PRN 12/31/21 12/31/21 History 5-325] Metoprolol Tartrate [Lopressor] 50 mg PO BID@0800,1600 12/31/21 12/31/21 History Potassium Chloride ER [K-Dur 20] 20 meq PO DAILY 12/31/21 12/31/21 History Potassium Chloride ER [K-Dur 20] 40 meq PO HS 12/31/21 12/31/21 History Promethazine HCl 12.5 mg PO Q12H PRN 12/31/21 12/31/21 History dronabinoL [Dronabinol] 5 mg PO BID@1200,1700 12/31/21 12/31/21 History Allergies Allergy/AdvReac Type Severity Reaction Status Date / Time No Known Allergies Allergy Verified 12/31/21 15:42 Physical Exam Vitals: Vital Signs Temp Pulse Pulse Resp BP Pulse Ox 01/04/22 09:59 115 H 01/04/22 09:46 117 H 100 01/04/22 08:00 97.6 F 120 H 14 87/56 97 01/04/22 03:28 97.8 F 117 H 18 94/66 100 01/04/22 00:00 97.3 F L 138 H 18 97/56 100 01/03/22 20:00 98.2 F 132 H 18 97/61 100 01/03/22 19:40 105 H 01/03/22 19:28 101 H 01/03/22 16:29 100 01/03/22 16:15 106 H 01/03/22 16:00 110 H 16 93/63 01/03/22 12:45 109 H 01/03/22 12:36 110 H 01/03/22 12:00 112 H 16 101/57 100 Intake and Output 01/03/22 01/04/22 01/04/22 22:59 06:59 14:59 Intake Total 800 10 Balance 800 10 Intake: IV 10 Invasive Line 2 10 Intake, IV Titration 800 Amount Dextrose 5%-0.9% NaCl 1, 800 000 ml @ 100 mls/hr IV . Q10H [facility] Rx#:[id number] Other: Voiding Method External Catheter GENERAL DESCRIPTION: Middle-aged male lying in bed, no distress. No tachypnea or accessory muscle of respiration use. HEENT: Shows Pallor , no scleral icterus. Oral mucous membrane is dry. No pharyngeal erythema or thrush NECK: Trachea central, no thyromegaly. LUNGS: Unlabored breathing. Decreased breath sound at the bases. No wheeze or crackle. HEART: S1, S2, regular rate and rhythm. No loud murmur ABDOMEN: Soft, no tenderness , guarding or rigidity, no organomegaly EXTREMITIES: No edema of feet. SKIN: No rash, no masses palpable. NEUROLOGICAL: The patient is awake, alert, oriented x3, mood and affect normal. Results CBC & Chem 7: 01/07/22 05:15 01/07/22 10:25 Labs: Abnormal Lab Results - Last 24 Hours (Table) 01/03/22 01/03/22 01/04/22 Range/Units 08:37 22:20 10:06 RBC 3.69 L (4.30-5.90) m/uL Hgb 10.2 L (13.0-17.5) gm/dL Hct 31.1 L (39.0-53.0) % RDW 17.6 H (11.5-15.5) % Lymphocytes # 0.8 L (1.0-4.8) k/uL Sodium 124 L (137-145) mmol/L Carbon Dioxide (22-30) mmol/L Glucose (74-99) mg/dL Calcium (8.4-10.2) mg/dL Phosphorus (2.5-4.5) mg/dL Delta Bilirubin (0.0-0.2) mg/dL Alkaline Phosphatase (38-126) U/L Total Protein (6.3-8.2) g/dL Albumin (3.5-5.0) g/dL Procalcitonin 0.19 H (0.02-0.09) ng/mL 01/04/22 Range/Units 10:06 RBC (4.30-5.90) m/uL Hgb (13.0-17.5) gm/dL Hct (39.0-53.0) % RDW (11.5-15.5) % Lymphocytes # (1.0-4.8) k/uL Sodium 121 L (137-145) mmol/L Carbon Dioxide 14 L (22-30) mmol/L Glucose 72 L (74-99) mg/dL Calcium 7.4 L (8.4-10.2) mg/dL Phosphorus 2.1 L (2.5-4.5) mg/dL Delta Bilirubin 0.8 H (0.0-0.2) mg/dL Alkaline Phosphatase 180 H (38-126) U/L Total Protein 4.4 L (6.3-8.2) g/dL Albumin 1.8 L (3.5-5.0) g/dL Procalcitonin (0.02-0.09) ng/mL Assessment and Plan (1) Abnormal abdominal CT scan Current Visit: Yes Status: Acute Code(s): R93.5 - ABN FINDINGS ON DX IMAGING OF ABD REGIONS, INC RETROPERITON SNOMED Code(s): 94022276212240707 Plan: 1patient with abnormal CT as well as ultrasound of the liver gallbladder area concerning for possible fluid collection in the gallbladder. In this patient who did have a history of gangrenous cholecystitis s/p cholecystectomy on 09/17/2021 with concern for possible postop seroma versus abscess, patient is clinically not behaving as an abscess with no fever or elevated white count. 2we will obtain IR consultation for possible CT or ultrasound-guided drainage of this fluid which should be sent for culture. 3we will hold on any systemic antibiotic therapy at this point as the patient currently does not look toxic and to increase the yield of any cultures. This was discussed in detail with the admitting physician. We will follow on clinical condition and cultures to further adjust medication if needed Thank you for this consultation will follow this patient along with you Time with Patient: Greater than 30
[2022-01-05] MEDS: METOCLOPRAMIDE 5 MG/ML 2 ML VIAL IVP SCH ×5 (00:40→23:40)
[2022-01-05] MEDS ORDERED: SODIUM CHLORIDE 0.9% 500 ML 250 ML IV ONE (00:47)
[2022-01-05 02:27] LABS: Glucose,Whole Blood 85 mg/dL (70-110)
[2022-01-05] MEDS ORDERED: MIDODRINE 5 MG TAB PO ONE (03:05)
--- NOTE | 2022-01-05 03:22 | P.EN ---
A team activated for hypotension. patient admitted earlier this week for failure to thrive hyponatremia . plan for PEG tube insertion. today he was refusing all his medications , and sodium kept trending down throughout his hospital stay and nephro was consulted today on exam , patient seem s alert , follows commands, moves spontaneously not in any distress. lungs CTA abd soft legs edema bilaterally tender to palpation patient known to have DVT vitals HR 105, BP 86/58 patient was given a 250 cc bolus of saline earlier currently running 0.45 with bicarb at 75 cc per hour, free water restricted , and salt tabs daily hyponatremia could be related to either SIADH or malnutrition, no urine studies available at this time. but clearly Na was trending down during hospital stay while on initially hypotonic fluids then later normal saline plan give one time dose of midodrine 10 mg (normally patient on 5 mg but he has been refusing his meds all day) follow up BMP (Na level) monitor vital signs patient is appropriate to continue to be monitored on 3 S for now .
[2022-01-05 04:00] LABS: Calcium 8.8 mg/dL (8.4-10.2)
[2022-01-05 04:01] LABS: Potassium 6.4 mmol/L (3.5-5.1)
[2022-01-05] MEDS: ENOXAPARIN 100 MG/ML SYRINGE SQ SCH (04:56)
[2022-01-05] MEDS: SODIUM CHLORIDE 0.9% 1,000 ML IV SCH ×2 (05:16→11:29)
[2022-01-05 06:33] LABS: Glucose,Whole Blood 79 mg/dL (70-110)
[2022-01-05] MEDS: MIDODRINE 5 MG TAB PO SCH ×3 (06:35→18:40)
[2022-01-05] MEDS: IPRATROPIUM-ALBUTEROL 3 ML NEB INHALATION SCH ×4 (08:50→18:59)
[2022-01-05 09:45] LABS: INR 1.3 (<1.2)
[2022-01-05 09:46] LABS: Prothrombin Time 13.3 sec (9.0-12.0)
[2022-01-05] MEDS: POTASSIUM CHLORIDE ER 20 MEQ TAB.ER PO SCH ×2 (09:56→21:16)
[2022-01-05] MEDS: MULTIVITAMINS, THERA 1 EACH TAB PO SCH (09:58)
[2022-01-05] MEDS: FOLIC ACID 1 MG TAB PO SCH (09:58)
[2022-01-05] MEDS: ASCORBIC ACID 500 MG TAB PO SCH (09:58)
[2022-01-05] MEDS: CHOLECALCIFEROL 25 MCG (1000 IU) TABLET PO SCH (09:58)
[2022-01-05] MEDS: PANTOPRAZOLE 40 MG/10 ML VIAL IVP SCH ×2 (09:58→21:17)
[2022-01-05] MEDS: MAGNESIUM OXIDE 400 MG TAB PO SCH ×3 (09:59→21:16)
[2022-01-05] MEDS: TAMSULOSIN 0.4 MG CAP.ER.24H PO SCH (09:59)
[2022-01-05] MEDS: METOPROLOL TARTRATE 50 MG TAB PO SCH ×2 (09:59→18:40)
[2022-01-05] MEDS: SODIUM BICARBONATE TAB 650 MG TAB PO SCH (09:59)
[2022-01-05 10:01] LABS: Anisocytosis Slight; Basophils % (A) 0 %; Eosinophils % (A) 1 %; HCT 28.3 % (39.0-53.0); HGB 9.6 gm/dL (13.0-17.5); Lymphocytes # (A) 0.9 k/uL (1.0-4.8); Lymphocytes % (A) 16 %; MCH 28.3 pg (25.0-35.0); MCHC 33.9 g/dL (31.0-37.0); MCV 83.4 fL (80.0-100.0); Mean Platelet Volume 8.7; Monocytes # (A) 0.2 k/uL (0-1.0); Monocytes % (A) 4 %; Neutrophils # (A) 4.3 k/uL (1.3-7.7); Neutrophils % (A) 79 %; Platelet Count 284 k/uL (150-450); RDW 17.8 % (11.5-15.5); WBC 5.5 k/uL (3.8-10.6)
[2022-01-05 10:25] LABS: Calcium 7.1 mg/dL (8.4-10.2); Magnesium 1.7 mg/dL (1.6-2.3); Potassium 3.9 mmol/L (3.5-5.1)
--- NOTE | 2022-01-05 12:09 | P.NPCON ---
History of Present Illness - Reason for Consult hyponatremia - History of Present Illness Patient is a 61-year-old male with history of COPD, type 2 diabetes, DVT, hypertension, obstructive sleep apnea. Patient had a history of acute kidney injury and severe hyperkalemia for which he was dialyzed during and admission in September 2021. Patient's renal function had recovered completely with serum creatinine down to 0.8-1.0 mg/dL. Patient is admitted this time with complaints of increased weakness. Patient has not been eating much and has had significant weight loss. He has had diarrhea on and off. Patient also complains of nausea. Patient has a decubitus ulcer with a wound VAC. Patient is noted to have right leg DVT for which he is maintained on heparin drip. Serum sodium was 123 on initial admission. He did come up to about 127 and then decreased back down to 122 on 01/03/2022. Since then serum sodium has been staying at 121-123 mg equals per liter Patient has been receiving saline at about 130 mL an hour. Random urine sodium was less than 20. Blood pressure has been staying low with systolic in the 90s. A random cortisol was not low. No history of fevers or chills. Review of Systems Assessment HPI other systems negative. Past Medical History Past Medical History: COPD, Diabetes Mellitus, Deep Vein Thrombosis (DVT), Hyperlipidemia, Hypertension, Pneumonia, Prostate Disorder, Sleep Apnea/CPAP/BIPAP Additional Past Medical History / Comment(s): sleep apnea uses cpap machine, herniated disc-has had injections, past stress test pt stated was wnl History of Any Multi-Drug Resistant Organisms: None Reported Past Surgical History: Hernia Repair Additional Past Surgical History / Comment(s): hydrocelectomy, vasectomy, colonoscopy/polypectomy-benign. umbilical hernia repair, injections for herniated disc. Past Anesthesia/Blood Transfusion Reactions: No Reported Reaction Additional Past Anesthesia/Blood Transfusion Reaction / Comment(s): clausterphobia. pt stated has never had a blood transfusion Past Psychological History: No Psychological Hx Reported Smoking Status: Never smoker Past Alcohol Use History: Occasional Additional Past Alcohol Use History / Comment(s): approx 2008 briefly smoked the occ cigar. pt has a rare drink Past Drug Use History: Marijuana Additional Drug Use History / Comment(s): approx every 3 months - Past Family History Mother Family Medical History: Cancer, Eye Disorder Additional Family Medical History / Comment(s): skin cancer, macular degeneration Father Family Medical History: Coronary Artery Disease (CAD), Dementia Additional Family Medical History / Comment(s): cabg, stents, uti/sepsis Medications and Allergies Home Medications Medication Instructions Recorded Confirmed Type Aspirin EC [Ecotrin Low Dose] 81 mg PO DAILY 08/23/18 12/31/21 History Tamsulosin [Flomax] 0.4 mg PO DAILY 08/23/18 12/31/21 History rOPINIRole HCL [Requip] 1 mg PO HS 08/23/18 12/31/21 History Ipratropium-Albuterol Nebulize 3 ml INHALATION RT-QID ml 07/16/21 12/31/21 Rx [Duoneb 0.5 mg-3 mg/3 ml Soln] Ascorbic Acid [Vitamin C] 1,000 mg PO DAILY@0800 09/09/21 12/31/21 History Cholecalciferol [Vitamin D3 (25 25 mcg PO DAILY 09/09/21 12/31/21 History Mcg = 1000 Iu)] Multivitamins, Thera [Multivitamin 1 tab PO DAILY 09/09/21 12/31/21 History (formulary)] hydrALAZINE HCL 50 mg PO BID@0500,1600 09/09/21 12/31/21 History Gabapentin [Neurontin] 100 mg PO HS #3 cap 10/01/21 12/31/21 Rx Acetaminophen [Acetaminophen ER] 650 mg PO Q6H PRN 12/31/21 12/31/21 History Albuterol Sulfate [Ventolin HFA] 2 puff INHALATION Q2H PRN 12/31/21 12/31/21 History Famotidine [Pepcid] 20 mg PO BID@0800,1600 12/31/21 12/31/21 History Folic Acid 0.8 mg PO DAILY 12/31/21 12/31/21 History HYDROcodone/APAP 5-325MG [[place] 1 tab PO Q6HR PRN 12/31/21 12/31/21 History 5-325] Metoprolol Tartrate [Lopressor] 50 mg PO BID@0800,1600 12/31/21 12/31/21 History Potassium Chloride ER [K-Dur 20] 20 meq PO DAILY 12/31/21 12/31/21 History Potassium Chloride ER [K-Dur 20] 40 meq PO HS 12/31/21 12/31/21 History Promethazine HCl 12.5 mg PO Q12H PRN 12/31/21 12/31/21 History dronabinoL [Dronabinol] 5 mg PO BID@1200,1700 12/31/21 12/31/21 History Allergies Allergy/AdvReac Type Severity Reaction Status Date / Time No Known Allergies Allergy Verified 12/31/21 15:42 Physical Exam Vitals: Vital Signs Temp Pulse Pulse Resp BP Pulse Ox 01/05/22 07:33 97.3 F L 115 H 16 103/56 98 01/05/22 04:00 97.4 F L 110 H 14 91/62 94 L 01/05/22 03:15 100/69 01/05/22 03:00 82/58 01/05/22 02:55 85/46 01/05/22 02:36 74/45 01/05/22 00:00 97.7 F 121 H 14 76/51 99 01/04/22 20:01 130 H 01/04/22 20:00 98.2 F 132 H 12 90/62 95 01/04/22 19:49 126 H 01/04/22 15:49 97.1 F L 89 16 91/55 96 01/04/22 15:37 130 H 01/04/22 15:26 125 H 01/04/22 12:48 97.4 F L 97 16 99/64 95 01/04/22 12:40 118 H 01/04/22 12:28 121 H Intake and Output 01/04/22 01/05/22 01/05/22 22:59 06:59 14:59 Intake Total 310 Balance 310 Intake: IV 10 Invasive Line 2 10 Oral 300 Other: Voiding Method External Catheter Patient is awake comfortable, not in any acute distress Examination of the heart S1 and S2 Examination of lungs bilateral breath sounds are heard Abdomen is soft obese lower abdominal tenderness is noted with possible distended bladder. Examination of the lower extremities shows edema bilaterally about 2+ patient is not able to move his legs much. Results - Lab Results Most recent lab results Calcium 7.1 mg/dL (8.4-10.2) L 01/05/22 09:01 Phosphorus 2.1 mg/dL (2.5-4.5) L 01/04/22 10:06 Magnesium 1.7 mg/dL (1.6-2.3) 01/05/22 09:01 01/05/22 09:01 01/05/22 09:01 Assessment and Plan Assessment: 1. Hyponatremia, possibly hypovolemic however patient has not been responding to normal saline. Urine sodium was low at less than 20 but urine osmolality is pending. In view of decreasing sodium levels while on sodium and chloride I we will DC the saline. Patient may also have urine retention contributing to the hyponatremia. Patient's blood pressure has been low however serum cortisone level was not low 2. Hyperkalemia associated with a hemolyzed sample as well as metabolic acidosis and potassium supplementation. Repeat potassium was not low at believe this could be this could have been an error. 3. History of acute kidney injury during last hospitalization with the requirement of 1 - 2 treatments of hemodialysis. Renal function recovered with serum creatinine now at about 1.0 mg/dL 4. Metabolic acidosis non-gap, maintained on bicarb drip. 5. Right lower extremity DVT 6. Nausea and significant weight loss Plan: DC normal saline. 2 g of sodium chloride 1 now Check urine osmolality Increase midodrine Check bladder scan rule out urine retention and place Smith catheter if significant retention noted. Repeat sodium in 4 hours next Thank you for the consultation we'll continue to follow the patient with you d uring his hospitalization
[2022-01-05] MEDS: ASPIRIN 81 MG PO SCH (12:37)
[2022-01-05] MEDS ORDERED: SODIUM CHLORIDE TAB 1 GM TAB PO STA (14:20)
[2022-01-05] MEDS ORDERED: HEPARIN SODIUM 1,000 UN/ML (10ML VL) IV PRN ×2 (14:56→19:28)
[2022-01-05] MEDS ORDERED: HEPARIN SOD,PORK IN 0.45% NACL 25,000 UNIT in 0.45% NACL 1 250ML.BAG IV SCH (15:00)
--- NOTE | 2022-01-05 15:10 | P.PN ---
Subjective Progress Note Date: 01/05/22 CHIEF COMPLAINT: Dehydration and failure to thrive HISTORY OF PRESENT ILLNESS: Patient's ileus appears to be improving. He is having flatus. Denies any abdominal pain. Nausea has improved. He was able to tolerate minimal amount of clear liquids. Still reports poor oral intake. Patient had an "Ateam" reported last night due to hypotension. Apparently patient had not been taking his medications. The midodrine was ordered. Patient is also hyponatremic sodium is 119. Nephrology is following. He has been tachycardic. Patient evaluated by IR service regarding the fluid collection at the liver and gallbladder site were unable to drain the fluid. Questions about possible postoperative seroma. Patient patient also having bleeding at his Lovenox injection sites. Initially the Lovenox was held. And hematology is on consult. The injection site from this morning on the outside of the abdomen is not bleeding. Patient seen and examined with Dr. whitaker PHYSICAL EXAM: VITAL SIGNS: Reviewed. GENERAL: Well-developed in no acute distress. HEENT: No sclera icterus. Extraocular movements grossly intact. Moist buccal mucosa. Head is atraumatic, normocephalic. ABDOMEN: Soft. Nondistended. Nontender. Patient does have compression dressing right lower abdomen where he is bleeding from Lovenox injection NEUROLOGIC: Alert and oriented. Cranial nerves II through XII grossly intact. ASSESSMENT: 1. Abdominal ileus likely due to electrolyte abnormality 2. Nausea 3. Hyponatremia 4. Hypokalemia 5. Severe Protein calorie malnutrition 6. Acute DVT right leg 7. Chronic decubitus ulcer 8. Fluid collection in the hepatic parenchyma adjacent to the gallbladder fossa PLAN: -Patient scheduled for PEG tube placement tomorrow, 01/06/[address] Whitaker if medically cleared -Continue to correct electrolyte abnormality. -Nephrology management of hyponatremia -Nothing by mouth intermittent Physician Bag Machine Set Up Operator note has been reviewed by physician. Signing provider agrees with the documented findings, assessment, and plan of care. Objective - Vital Signs Vital signs: Vital Signs Temp 98.6 F 01/05/22 11:45 Pulse 122 H 01/05/22 13:53 Resp 16 01/05/22 13:53 BP 103/59 01/05/22 11:45 Pulse Ox 98 01/05/22 11:45 FiO2 28 01/02/22 16:04 Intake & Output 01/04/22 01/05/22 01/05/22 18:59 06:59 18:59 Intake Total 10 310 Balance 10 310 Weight 87.543 kg Intake: IV 10 10 Invasive Line 2 10 10 Oral 300 Other: Voiding Method External Catheter Urinal # Bowel Movements 1 - Labs CBC & Chem 7: 01/05/22 09:01 01/05/22 09:01 Labs: Abnormal Lab Results - Last 24 Hours (Table) 01/04/22 01/04/22 01/04/22 Range/Units 10:06 14:16 16:04 RBC 3.74 L (4.30-5.90) m/uL Hgb 10.1 L (13.0-17.5) gm/dL Hct 31.8 L (39.0-53.0) % RDW 17.4 H (11.5-15.5) % Lymphocytes # (1.0-4.8) k/uL PT (9.0-12.0) sec INR (<1.2) Sodium (137-145) mmol/L Potassium (3.5-5.1) mmol/L Chloride (98-107) mmol/L Carbon Dioxide (22-30) mmol/L Calcium (8.4-10.2) mg/dL Procalcitonin 0.23 H (0.02-0.09) ng/mL Ur Random Sodium <20 L (40-220) mmol/L 01/04/22 01/05/22 01/05/22 Range/Units 16:04 03:06 09:01 RBC 3.40 L (4.30-5.90) m/uL Hgb 9.6 L (13.0-17.5) gm/dL Hct 28.3 L (39.0-53.0) % RDW 17.8 H (11.5-15.5) % Lymphocytes # 0.9 L (1.0-4.8) k/uL PT (9.0-12.0) sec INR (<1.2) Sodium 121 L 123 L (137-145) mmol/L Potassium 6.4 H* (3.5-5.1) mmol/L Chloride (98-107) mmol/L Carbon Dioxide 13 L (22-30) mmol/L Calcium (8.4-10.2) mg/dL Procalcitonin (0.02-0.09) ng/mL Ur Random Sodium (40-220) mmol/L 01/05/22 01/05/22 Range/Units 09:01 09:01 RBC (4.30-5.90) m/uL Hgb (13.0-17.5) gm/dL Hct (39.0-53.0) % RDW (11.5-15.5) % Lymphocytes # (1.0-4.8) k/uL PT 13.3 H (9.0-12.0) sec INR 1.3 H (<1.2) Sodium 119 L* (137-145) mmol/L Potassium (3.5-5.1) mmol/L Chloride 97 L (98-107) mmol/L Carbon Dioxide 16 L (22-30) mmol/L Calcium 7.1 L (8.4-10.2) mg/dL Procalcitonin (0.02-0.09) ng/mL Ur Random Sodium (40-220) mmol/L
[2022-01-05 16:50] LABS: Glucose,Whole Blood 103 mg/dL (70-110)
[2022-01-05] MEDS ORDERED: SODIUM CHLORIDE 0.9% 500 ML 500 ML IV ONE (16:58)
[2022-01-05 17:21] LABS: Glucose,Whole Blood 98 mg/dL (70-110)
[2022-01-05] MEDS ORDERED: NOREPINEPHRIN 4 MG-0.9% NS PMX 4 MG/250 ML ML IV ONE (17:40)
[2022-01-05] MEDS ORDERED: NOREPINEPHRINE 8 MG in SODIUM CHLORIDE 0.9% 250 ML IV SCH (18:00)
--- NOTE | 2022-01-05 18:10 | P.CONS ---
History of Present Illness - Reason for Consult Consult date: 01/05/22 bleeding after lovenox injection, acute DVT Requesting physician: Tomás E Sheet - Chief Complaint failure to thrive - History of Present Illness Mr. Marquez is a pleasant man we have been asked to see as the pt was noted to have bleeding post treatment dose lovenox injection for a LLE DVT diagnosed this hospitalization. He denies epistaxis, gum bleeding, hemoptysis, hematemesis, hematuria, black or bloody stool. There was oozing of blood from abd injection side, current dressing is clean and dry. The last few months for the pt have been very eventful. Several hospitalizations 06/29-09/28. Pneumonia, resp failure, sepsis, CHF exac, intubation. Then admit for failure to thrive in rehab, treated inpt conservatively. Admit with low BP, HAMIDA, needed dialysis. Choleycystectomy for gangrenous gallbladder in September. PEG placed for poor oral intake. He is curre ntly admitted from rehab facility for N,V,D, doppler showed RLE DVT. Review of Systems 10 point ROS is neg except as stated in HPI Past Medical History Past Medical History: COPD, Diabetes Mellitus, Deep Vein Thrombosis (DVT), Hy perlipidemia, Hypertension, Pneumonia, Prostate Disorder, Sleep Apnea/CPAP/BIPAP Additional Past Medical History / Comment(s): sleep apnea uses cpap machine, herniated disc-has had injections, past stress test pt stated was wnl History of Any Multi-Drug Resistant Organisms: None Reported Past Surgical History: Hernia Repair Additional Past Surgical History / Comment(s): hydrocelectomy, vasectomy, colonoscopy/polypectomy-benign. umbilical hernia repair, injections for herniated disc. Past Anesthesia/Blood Transfusion Reactions: No Reported Reaction Additional Past Anesthesia/Blood Transfusion Reaction / Comm: clausterphobia. pt stated has never had a blood transfusion Past Psychological History: No Psychological Hx Reported Smoking Status: Never smoker Past Alcohol Use History: Occasional Additional Past Alcohol Use History / Comment(s): approx 2008 briefly smoked the occ cigar. pt has a rare drink Past Drug Use History: Marijuana Additional Drug Use History / Comment(s): approx every 3 months - Past Family History Mother Family Medical History: Cancer, Eye Disorder Additional Family Medical History / Comment(s): skin cancer, macular degeneration Father Family Medical History: Coronary Artery Disease (CAD), Dementia Additional Family Medical History / Comment(s): cabg, stents, uti/sepsis Medications and Allergies Home Medications Medication Instructions Recorded Confirmed Type Aspirin EC [Ecotrin Low Dose] 81 mg PO DAILY 08/23/18 12/31/21 History Tamsulosin [Flomax] 0.4 mg PO DAILY 08/23/18 12/31/21 History rOPINIRole HCL [Requip] 1 mg PO HS 08/23/18 12/31/21 History Ipratropium-Albuterol Nebulize 3 ml INHALATION RT-QID ml 07/16/21 12/31/21 Rx [Duoneb 0.5 mg-3 mg/3 ml Soln] Ascorbic Acid [Vitamin C] 1,000 mg PO DAILY@0800 09/09/21 12/31/21 History Cholecalciferol [Vitamin D3 (25 25 mcg PO DAILY 09/09/21 12/31/21 History Mcg = 1000 Iu)] Multivitamins, Thera [Multivitamin 1 tab PO DAILY 09/09/21 12/31/21 History (formulary)] hydrALAZINE HCL 50 mg PO BID@0500,1600 09/09/21 12/31/21 History Gabapentin [Neurontin] 100 mg PO HS #3 cap 10/01/21 12/31/21 Rx Acetaminophen [Acetaminophen ER] 650 mg PO Q6H PRN 12/31/21 12/31/21 History Albuterol Sulfate [Ventolin HFA] 2 puff INHALATION Q2H PRN 12/31/21 12/31/21 History Famotidine [Pepcid] 20 mg PO BID@0800,1600 12/31/21 12/31/21 History Folic Acid 0.8 mg PO DAILY 12/31/21 12/31/21 History HYDROcodone/APAP 5-325MG [[place] 1 tab PO Q6HR PRN 12/31/21 12/31/21 History 5-325] Metoprolol Tartrate [Lopressor] 50 mg PO BID@0800,1600 12/31/21 12/31/21 History Potassium Chloride ER [K-Dur 20] 20 meq PO DAILY 12/31/21 12/31/21 History Potassium Chloride ER [K-Dur 20] 40 meq PO HS 12/31/21 12/31/21 History Promethazine HCl 12.5 mg PO Q12H PRN 12/31/21 12/31/21 History dronabinoL [Dronabinol] 5 mg PO BID@1200,1700 12/31/21 12/31/21 History Allergies Allergy/AdvReac Type Severity Reaction Status Date / Time No Known Allergies Allergy Verified 12/31/21 15:42 Physical Exam Vitals: Vital Signs Temp Pulse Pulse Resp BP Pulse Ox 01/05/22 13:53 122 H 16 01/05/22 11:45 98.6 F 122 H 16 103/59 98 01/05/22 08:00 115 H 16 01/05/22 07:33 97.3 F L 115 H 16 103/56 98 01/05/22 04:00 97.4 F L 110 H 14 91/62 94 L 01/05/22 03:15 100/69 01/05/22 03:00 82/58 01/05/22 02:55 85/46 01/05/22 02:36 74/45 01/05/22 00:00 97.7 F 121 H 14 76/51 99 01/04/22 20:01 130 H 01/04/22 20:00 98.2 F 132 H 12 90/62 95 01/04/22 19:49 126 H 01/04/22 15:49 97.1 F L 89 16 91/55 96 01/04/22 15:37 130 H 01/04/22 15:26 125 H Intake and Output 01/04/22 01/05/22 01/05/22 22:59 06:59 14:59 Intake Total 310 Balance 310 Intake: IV 10 Invasive Line 2 10 Oral 300 Other: Voiding Method External Catheter Urinal # Bowel Movements 1 - Constitutional General appearance: average body habitus, cooperative, no acute distress - EENT Eyes: anicteric sclerae, EOMI ENT: hearing grossly normal - Neck Neck: no lymphadenopathy - Respiratory Respiratory: bilateral: diminished - Cardiovascular Rhythm: regular leg Peripheral Edema: right: None, left: 1+ - Gastrointestinal RLQ, pressure dressing noted, no blood on the gauze when removed, some bruising noted General gastrointestinal: no absent bowel sounds, no decreased bowel sounds, no distended, no hepatomegaly, no hyperactive bowel sounds, normal bowel sounds, no organomegaly, no rigid, no scaphoid, soft, no splenomegaly, no tenderness, no umbilical hernia, no ventral hernia - Musculoskeletal pt unable to move BLE spontaneously Musculoskeletal: generalized weakness - Psychiatric Psychiatric: A&O x's 3 Results CBC & Chem 7: 01/05/22 09:01 01/05/22 09:01 Labs: Abnormal Lab Results - Last 24 Hours (Table) 01/04/22 01/04/22 01/04/22 Range/Units 10:06 14:16 16:04 RBC 3.74 L (4.30-5.90) m/uL Hgb 10.1 L (13.0-17.5) gm/dL Hct 31.8 L (39.0-53.0) % RDW 17.4 H (11.5-15.5) % Lymphocytes # (1.0-4.8) k/uL PT (9.0-12.0) sec INR (<1.2) Sodium (137-145) mmol/L Potassium (3.5-5.1) mmol/L Chloride (98-107) mmol/L Carbon Dioxide (22-30) mmol/L Calcium (8.4-10.2) mg/dL Procalcitonin 0.23 H (0.02-0.09) ng/mL Ur Random Sodium <20 L (40-220) mmol/L 01/04/22 01/05/22 01/05/22 Range/Units 16:04 03:06 09:01 RBC 3.40 L (4.30-5.90) m/uL Hgb 9.6 L (13.0-17.5) gm/dL Hct 28.3 L (39.0-53.0) % RDW 17.8 H (11.5-15.5) % Lymphocytes # 0.9 L (1.0-4.8) k/uL PT (9.0-12.0) sec INR (<1.2) Sodium 121 L 123 L (137-145) mmol/L Potassium 6.4 H* (3.5-5.1) mmol/L Chloride (98-107) mmol/L Carbon Dioxide 13 L (22-30) mmol/L Calcium (8.4-10.2) mg/dL Procalcitonin (0.02-0.09) ng/mL Ur Random Sodium (40-220) mmol/L 01/05/22 01/05/22 Range/Units 09:01 09:01 RBC (4.30-5.90) m/uL Hgb (13.0-17.5) gm/dL Hct (39.0-53.0) % RDW (11.5-15.5) % Lymphocytes # (1.0-4.8) k/uL PT 13.3 H (9.0-12.0) sec INR 1.3 H (<1.2) Sodium 119 L* (137-145) mmol/L Potassium (3.5-5.1) mmol/L Chloride 97 L (98-107) mmol/L Carbon Dioxide 16 L (22-30) mmol/L Calcium 7.1 L (8.4-10.2) mg/dL Procalcitonin (0.02-0.09) ng/mL Ur Random Sodium (40-220) mmol/L CT scan - abdomen: report reviewed CT scan - chest: report reviewed CT scan - pelvis: report reviewed Venous US: report reviewed Assessment and Plan (1) DVT (deep venous thrombosis) Current Visit: Yes Status: Acute Priority: High Code(s): I82.409 - ACUTE EMBOLISM AND THOMBOS UNSP DEEP VN UNSP LOWER EXTREMITY SNOMED Code(s): 368460311 (2) Anemia Current Visit: Yes Status: Chronic Priority: High Code(s): D64.9 - ANEMIA, UNSPECIFIED SNOMED Code(s): 197841719 Plan: No persistent bleeding reported, Hgb stable over time. Case discussed with Attending [employer] NURSE PRACTITIONER. Content Publisher recommends low intensity, no bolus heparin drip for acute DVT. Monitor pt closely for bleeding, labs daily. If any evidence of bleeding then anticoagulation will be contraindicated and IVC filter will be recommended. Anemia work up most consistent with inflammation. Will check hemolysis labs. factor Xa activity ordered to rule out concerns for issues with metabolism of lovenox leading to bleedin/oozing. Attests: I have seen and examined pt, performed H&P, developed impression and plan of care. Discussed with dictator, agree with dictation, documented as a scribe Time with Patient: Greater than 30
--- NOTE | 2022-01-05 18:32 | P.PCN ---
Date of Procedure: 01/05/22 Preoperative Diagnosis: Hypotension/sepsis Postoperative Diagnosis: Hypotension/sepsis Procedure(s) Performed: Central line, arterial line Anesthesia: local Surgeon: Beltran Cordova Pathology: none sent Condition: critical Disposition: ICU Operative Findings: Central line Indication: Hemodynamic monitoring/Intravenous access. A time-out was completed verifying correct patient, procedure, site, positioning, and implant(s) or special equipment if applicable. The patient was placed in a dependent position appropriate for central line placement based on the vein to be cannulated. The patients shoulder was prepped and draped in sterile fashion. 1% Lidocaine was used to anesthetize the surrounding skin area. A triple lumen 9F Cordis catheter was introduced into the left subclavian vein using Seldinger technique. The catheter was threaded smoothly over the guide wire and appropriate blood return was obtained. Each lumen of the catheter was evacuated of air and flushed with sterile saline. The catheter was then sutured in place to the skin and a sterile dressing applied. Perfusion to the extremity distal to the point of catheter insertion was checked and found to be adequate. The patient tolerated the procedure well and there were no complications. Arterial line Indication: Hemodynamic monitoring. A time-out was completed verifying correct patient, procedure, site, positioning, and implant(s) or special equipment if applicable. Allens test was performed to ensure adequate perfusion. The patients right antecubital was prepped and draped in sterile fashion. 1% Lidocaine was used to anesthetize the area. An 18G Arrow arterial line was introduced into the brachial artery. The catheter was threaded over the guide wire and the needle was removed with appropriate pulsatile blood return. Blood loss was minimal. The catheter was then sutured in place to the skin and a sterile dressing applied. Perfusion to the extremity distal to the point of catheter insertion was checked and found to be adequate. The patient tolerated the procedure well and there were no complications.
[2022-01-05] MEDS ORDERED: VANCOMYCIN IV PER PHARMACY 1 EACH MISC MISCELLANE PRN (18:33)
[2022-01-05] MEDS: SODIUM CHLORIDE 0.45% 1,000 ML with SODIUM BICARB (1 MEQ/ML) 150 ML IV SCH ×4 (18:38→21:19)
[2022-01-05 18:43] LABS: ABG Base Excess -5.1 mmol/L; ABG HCO3 19 mmol/L (21-25); ABG Oxygen Saturation 99.1 % (94-97); ABG PCO2 27 mmHg (35-45); ABG PH 7.45 (7.35-7.45); ABG PO2 120 mmHg (83-108); ABG TCO2 20 mmol/L (19-24); Allen Test Performed? Yes
[2022-01-05] MEDS: PIPERACILLIN-TAZOBACTAM 3.375 GM in SODIUM CHLORIDE 0.9% 100 ML IVPB SCH ×2 (18:46→23:39)
--- NOTE | 2022-01-05 18:46 | P.CNPUL ---
History of Present Illness Consult date: 01/05/22 Chief complaint: Hypotension History of present illness: I was asked to evaluate this patient and chance for him to the intensive care unit and the patient has been quite elevated cardiac and hypotensive in addition to significant electrolyte and blood abnormalities. The patient is known to have multiple comorbidities. He has COPD, diabetes mellitus, hypertension , and addition to obstructive sleep apnea and the patient utilizes CPAP machine. The patient had an open cholecystectomy for gangrenous cholecystitis and the surgery was on 09/17/2021. At that time, the patient was quite ill and septic. He developed acute respiratory failure following his surgery and the patient was extubated successfully. During the course of the illness, the patient and acute kidney injury and he was initially on hemodialysis via permacath. The patient presented back to our hospital from the correction where he was residing and the patient was quite lethargic and dehydrated. The patient apparently was initially brought into the hospital for a PEG tube placement as the patient wasn't eating or drinking and he had lost significant amount of weight. He has also developed a pressure ulcer of his left gluteal area and the patient was seen by the wound care team and the patient has a wound VAC applied to that area. There was a concern for development of a abscess in the liver. A CAT scan of the abdomen was done that raised concerns for a fluid collection/abscess in the gallbladder fossa and a similar findings were also seen on the ultrasound of the abdomen. The case was reviewed by interventional radiology. This finding was quite deep in the abdomen and limited for percutaneous access. Based on that, no intervention was done. Over the past 24 hours, the patient has been acting more septic. The patient was hypotensive and the A team was activated. The patient apparently was running a lower blood pressure. The patient also had been refusing to take his medication. He was given fluid boluses. He was started on bicarb infusion at the rate of 75 mL an hour and he was also started on midodrine and salt tablets. He was noted to be hyponatremic. Subsequently, his condition decompensated and this afternoon, the patient was examined the lethargic, unresponsive, labs showed a sodium level of 119, serum bicarb was 16 with a anion gap of 6. BUN was 11 with a creatinine of 0.6. The pro-calcitonin level was 0.3. The patient had a White second of 9.0 with a hemoglobin of 9.6. Coagulation profile was within normal limits. The sodium level is 119 with a serum bicarb of 16 and an anion gap of 6. Noted the patient was hyponatremic during this current admission. The sodium level progressively dropped and the patient did not respond to normal saline. Urine sodium was low, less than 20 but urine osmolality was at 454. The patient was seen by nephrology and the normal saline was discontinued. For now, the patient is on a bicarb infusion at the rate of 70 mL an hour. He was started also on IV Zosyn. Note that during this current admission, the patient was found to have a right lower extremity DVT and the patient was started on Lovenox and this was switched to IV heparin. The patient did not have any pulmonary embolism based on the CT angiogram. Echocardiac Michael showed a preserved LV function. His serum cortisone level was elevated. After the patient being chest to the intensive care unit, he was given a total of 2 L of bolus. He became more alert and responsive. He had to be started on pressors and currently norepinephrine infusion is running at 0.4 mcg/kg per minute. The patient was given a triple lumen catheter and arterial line catheter for intensive hemodynamic monitoring. The patient was started on IV Zosyn and the patient will be given vancomycin. Wound VAC is in place. Abdomen is soft. Mental status is gradually improving. He was able to recognize when he was older to follow simple commands. He is receiving the second bolus of normal saline for now. Review of Systems Constitutional: Reports fatigue, Reports lethargy, Reports poor appetite, Reports weakness Eyes: denies as per HPI, denies blurred vision, denies bulging eye, denies decreased vision, denies diplopia, denies discharge, denies dry eye, denies irritation, denies itching, denies pain, denies photophobia, denies loss of peripheral vision, denies loss of vision, denies tunnel vision/blind spots Ears: deny: decreased hearing, ear discharge, earache, tinnitus Ears, nose, mouth and throat: Reports as per HPI Breasts: absent: as per HPI, gynecomastia Cardiovascular: Reports dyspnea on exertion Respiratory: Reports as per HPI Gastrointestinal: Reports as per HPI Genitourinary: Reports as per HPI Musculoskeletal: Reports as per HPI Musculoskeletal: bilateral: ankle swelling, absent: ankle pain, ankle stiffness Integumentary: Reports as per HPI Neurological: Reports as per HPI, Reports confusion Psychiatric: Reports as per HPI Endocrine: Reports as per HPI Hematologic/Lymphatic: Reports as per HPI Allergic/Immunologic: Reports as per HPI Past Medical History Past Medical History: COPD, Diabetes Mellitus, Deep Vein Thrombosis (DVT), Hyperlipidemia, Hypertension, Pneumonia, Prostate Disorder, Sleep Apnea/CPAP/BIPAP Additional Past Medical History / Comment(s): sleep apnea uses cpap machine, herniated disc-has had injections, past stress test pt stated was wnl History of Any Multi-Drug Resistant Organisms: None Reported Past Surgical History: Hernia Repair Additional Past Surgical History / Comment(s): hydrocelectomy, vasectomy, colonoscopy/polypectomy-benign. umbilical hernia repair, injections for herniated disc. Past Anesthesia/Blood Transfusion Reactions: No Reported Reaction Additional Past Anesthesia/Blood Transfusion Reaction / Comment(s): clausterphobia. pt stated has never had a blood transfusion Past Psychological History: No Psychological Hx Reported Smoking Status: Never smoker Past Alcohol Use History: Occasional Additional Past Alcohol Use History / Comment(s): approx 2008 briefly smoked the occ cigar. pt has a rare drink Past Drug Use History: Marijuana Additional Drug Use History / Comment(s): approx every 3 months - Past Family History Mother Family Medical History: Cancer, Eye Disorder Additional Family Medical History / Comment(s): skin cancer, macular degeneration Father Family Medical History: Coronary Artery Disease (CAD), Dementia Additional Family Medical History / Comment(s): cabg, stents, uti/sepsis Medications and Allergies Home Medications Medication Instructions Recorded Confirmed Type Aspirin EC [Ecotrin Low Dose] 81 mg PO DAILY 08/23/18 12/31/21 History Tamsulosin [Flomax] 0.4 mg PO DAILY 08/23/18 12/31/21 History rOPINIRole HCL [Requip] 1 mg PO HS 08/23/18 12/31/21 History Ipratropium-Albuterol Nebulize 3 ml INHALATION RT-QID ml 07/16/21 12/31/21 Rx [Duoneb 0.5 mg-3 mg/3 ml Soln] Ascorbic Acid [Vitamin C] 1,000 mg PO DAILY@0800 09/09/21 12/31/21 History Cholecalciferol [Vitamin D3 (25 25 mcg PO DAILY 09/09/21 12/31/21 History Mcg = 1000 Iu)] Multivitamins, Thera [Multivitamin 1 tab PO DAILY 09/09/21 12/31/21 History (formulary)] hydrALAZINE HCL 50 mg PO BID@0500,1600 09/09/21 12/31/21 History Gabapentin [Neurontin] 100 mg PO HS #3 cap 10/01/21 12/31/21 Rx Acetaminophen [Acetaminophen ER] 650 mg PO Q6H PRN 12/31/21 12/31/21 History Albuterol Sulfate [Ventolin HFA] 2 puff INHALATION Q2H PRN 12/31/21 12/31/21 History Famotidine [Pepcid] 20 mg PO BID@0800,1600 12/31/21 12/31/21 History Folic Acid 0.8 mg PO DAILY 12/31/21 12/31/21 History HYDROcodone/APAP 5-325MG [[place] 1 tab PO Q6HR PRN 12/31/21 12/31/21 History 5-325] Metoprolol Tartrate [Lopressor] 50 mg PO BID@0800,1600 12/31/21 12/31/21 History Potassium Chloride ER [K-Dur 20] 20 meq PO DAILY 12/31/21 12/31/21 History Potassium Chloride ER [K-Dur 20] 40 meq PO HS 12/31/21 12/31/21 History Promethazine HCl 12.5 mg PO Q12H PRN 12/31/21 12/31/21 History dronabinoL [Dronabinol] 5 mg PO BID@1200,1700 12/31/21 12/31/21 History Allergies Allergy/AdvReac Type Severity Reaction Status Date / Time No Known Allergies Allergy Verified 12/31/21 15:42 Physical Exam Vitals: Vital Signs Temp Pulse Pulse Resp BP Pulse Ox 01/05/22 16:11 78 01/05/22 16:00 80 98 01/05/22 13:53 122 H 16 01/05/22 11:45 98.6 F 122 H 16 103/59 98 01/05/22 08:00 115 H 16 01/05/22 07:33 97.3 F L 115 H 16 103/56 98 01/05/22 04:00 97.4 F L 110 H 14 91/62 94 L 01/05/22 03:15 100/69 01/05/22 03:00 82/58 01/05/22 02:55 85/46 01/05/22 02:36 74/45 01/05/22 00:00 97.7 F 121 H 14 76/51 99 01/04/22 20:01 130 H 01/04/22 20:00 98.2 F 132 H 12 90/62 95 01/04/22 19:49 126 H Intake and Output 01/05/22 01/05/22 01/05/22 06:59 14:59 22:59 Intake Total 310 Balance 310 Intake: IV 10 Invasive Line 2 10 Oral 300 Other: Voiding Method Urinal # Bowel Movements 1 Gen. appearance the patient is awake and alert and is following simple commands. He is a bit drowsy and sleepy. He is profoundly weak in all 4 extremities. No agitation. No delirium. Head exam was generally normal. There was no scleral icterus or corneal arcus. Mucous membranes were moist. Neck was supple and without jugular venous distension, thyromegaly, or carotid bruits. Carotids were easily palpable bilaterally. There was no adenopathy. Lungs were clear to auscultation and percussion, and with normal diaphragmatic excursion. No wheezes or rales were noted. Heart sounds are distant positive sinus and there is no significant murmurs appreciated Abdominal exam revealed normal bowel sounds. The abdomen was soft, non-tender, and without masses, organomegaly, or appreciable enlargement of the abdominal aorta. Patient is also developed some bleeding from the skin at the site of Lovenox injections. There is areas of ecchymosis. No direct tenderness. No rebound tenderness. No guarding. Surgical wound site over the right upper quadrant at the site of the open cholecystectomy dry clean and intact. Bowel sounds are hypoactive at the present. No distention. No ascites. Extremities are mottled and the patient diminished pulses bilaterally, no cyanosis. Neurologically the patient is following commands and answering questions. No focal neurological deficits. Profoundly weak Skin the patient has a wound VAC in his pulse ox regarding his stage IV sacral decubitus ulceration. Results - Laboratory Findings CBC and BMP: 01/05/22 09:01 01/05/22 09:01 PT/INR, D-dimer PT 13.3 sec (9.0-12.0) H 01/05/22 09:01 INR 1.3 (<1.2) H 01/05/22 09:01 Abnormal lab findings: Abnormal Labs 12/31/21 12/31/21 12/31/21 13:13 13:44 13:44 RBC Hgb 11.9 L Hct 38.2 L RDW 16.9 H Lymphocytes # PT INR Sodium 123 L Potassium Chloride 93 L Carbon Dioxide 15 L Glucose POC Glucose (mg/dL) 66 L Osmolality Calcium Ionized Calcium Sukhjinder 4.4 L Phosphorus Magnesium Iron TIBC % Saturation Transferrin Ferritin Delta Bilirubin Alkaline Phosphatase 218 H Total Protein 5.6 L Albumin 2.4 L Vitamin B12 Procalcitonin Urine Protein Urine Ketones Urine Bilirubin Urine Bacteria Urine Mucus Ur Random Sodium 12/31/21 01/01/22 01/01/22 17:30 10:28 10:28 RBC 4.21 L Hgb 11.8 L Hct 37.2 L RDW 17.3 H Lymphocytes # 0.8 L PT INR Sodium 126 L Potassium Chloride 97 L Carbon Dioxide 18 L Glucose 110 H POC Glucose (mg/dL) 146 H Osmolality Calcium 7.9 L Ionized Calcium Sukhjinder Phosphorus Magnesium 1.4 L Iron 57 L TIBC 62 L % Saturation 91.70 H Transferrin 44.4 L Ferritin 1648.0 H Delta Bilirubin Alkaline Phosphatase 213 H Total Protein 5.0 L Albumin 2.1 L Vitamin B12 1014.0 H Procalcitonin Urine Protein Urine Ketones Urine Bilirubin Urine Bacteria Urine Mucus Ur Random Sodium 01/01/22 01/01/22 01/02/22 10:28 11:52 05:37 RBC 3.89 L Hgb 10.8 L Hct 33.1 L RDW 17.1 H Lymphocytes # 0.8 L PT INR Sodium Potassium Chloride Carbon Dioxide Glucose POC Glucose (mg/dL) 116 H Osmolality Calcium Ionized Calcium Sukhjinder Phosphorus Magnesium Iron TIBC % Saturation Transferrin Ferritin Delta Bilirubin Alkaline Phosphatase Total Protein Albumin Vitamin B12 Procalcitonin 0.11 H Urine Protein Urine Ketones Urine Bilirubin Urine Bacteria Urine Mucus Ur Random Sodium 01/02/22 01/02/22 01/02/22 05:37 11:33 23:45 RBC Hgb Hct RDW Lymphocytes # PT INR Sodium 127 L Potassium 3.1 L Chloride Carbon Dioxide 19 L Glucose POC Glucose (mg/dL) 120 H Osmolality Calcium 7.6 L Ionized Calcium Sukhjinder Phosphorus Magnesium 1.3 L Iron TIBC % Saturation Transferrin Ferritin Delta Bilirubin Alkaline Phosphatase 185 H Total Protein 4.6 L Albumin 2.0 L Vitamin B12 Procalcitonin Urine Protein 1+ H Urine Ketones 1+ H Urine Bilirubin 1+ H Urine Bacteria Rare H Urine Mucus Rare H Ur Random Sodium 01/03/22 01/03/22 01/03/22 08:32 08:32 08:37 RBC 3.63 L Hgb 10.1 L Hct 30.4 L RDW 17.5 H Lymphocytes # PT INR Sodium 122 L Potassium Chloride Carbon Dioxide 14 L Glucose 102 H POC Glucose (mg/dL) Osmolality Calcium 7.3 L Ionized Calcium Sukhjinder Phosphorus Magnesium Iron TIBC % Saturation Transferrin Ferritin Delta Bilirubin 0.7 H Alkaline Phosphatase 176 H Total Protein 4.5 L Albumin 1.9 L Vitamin B12 Procalcitonin 0.19 H Urine Protein Urine Ketones Urine Bilirubin Urine Bacteria Urine Mucus Ur Random Sodium 01/03/22 01/04/22 01/04/22 22:20 10:06 10:06 RBC 3.69 L Hgb 10.2 L Hct 31.1 L RDW 17.6 H Lymphocytes # 0.8 L PT INR Sodium 124 L Potassium Chloride Carbon Dioxide Glucose POC Glucose (mg/dL) Osmolality Calcium Ionized Calcium Sukhjinder Phosphorus Magnesium Iron TIBC % Saturation Transferrin Ferritin Delta Bilirubin Alkaline Phosphatase Total Protein Albumin Vitamin B12 Procalcitonin 0.23 H Urine Protein Urine Ketones Urine Bilirubin Urine Bacteria Urine Mucus Ur Random Sodium 01/04/22 01/04/22 01/04/22 10:06 14:16 16:04 RBC 3.74 L Hgb 10.1 L Hct 31.8 L RDW 17.4 H Lymphocytes # PT INR Sodium 121 L Potassium Chloride Carbon Dioxide 14 L Glucose 72 L POC Glucose (mg/dL) Osmolality 257 L Calcium 7.4 L Ionized Calcium Sukhjinder Phosphorus 2.1 L Magnesium Iron TIBC % Saturation Transferrin Ferritin Delta Bilirubin 0.8 H Alkaline Phosphatase 180 H Total Protein 4.4 L Albumin 1.8 L Vitamin B12 Procalcitonin Urine Protein Urine Ketones Urine Bilirubin Urine Bacteria Urine Mucus Ur Random Sodium <20 L 01/04/22 01/05/22 01/05/22 16:04 03:06 09:01 RBC Hgb Hct RDW Lymphocytes # PT INR Sodium 121 L 123 L Potassium 6.4 H* Chloride Carbon Dioxide 13 L Glucose POC Glucose (mg/dL) Osmolality Calcium Ionized Calcium Sukhjinder Phosphorus Magnesium Iron TIBC % Saturation Transferrin Ferritin Delta Bilirubin Alkaline Phosphatase Total Protein Albumin Vitamin B12 Procalcitonin 0.30 H Urine Protein Urine Ketones Urine Bilirubin Urine Bacteria Urine Mucus Ur Random Sodium 01/05/22 01/05/22 01/05/22 09:01 09:01 09:01 RBC 3.40 L Hgb 9.6 L Hct 28.3 L RDW 17.8 H Lymphocytes # 0.9 L PT 13.3 H INR 1.3 H Sodium 119 L* Potassium Chloride 97 L Carbon Dioxide 16 L Glucose POC Glucose (mg/dL) Osmolality Calcium 7.1 L Ionized Calcium Sukhjinder Phosphorus Magnesium Iron TIBC % Saturation Transferrin Ferritin Delta Bilirubin Alkaline Phosphatase Total Protein Albumin Vitamin B12 Procalcitonin Urine Protein Urine Ketones Urine Bilirubin Urine Bacteria Urine Mucus Ur Random Sodium Assessment and Plan Plan: Acute hypotension. The patient was hypertensive throughout the day. The patient came into the intensive care unit with profound hypotension with a systolic blood pressure in the low 50s long with altered mentation. Currently is on that investigation. Likely possibilities sepsis/infection contributing to this hypotension. The patient is currently being assessed his IV fluids with normal saline and the patient is also started on pressors and antibiotics. Pending cultures. Pending further workup. Free of any chest pain Change in mental status, improving with fluid resuscitation and improvement in the blood pressure Recent gangrenous cholecystitis with a right cholecystectomy, open. There is a collection in the gallbladder fossa which is most likely benign. Abdominal exam is benign and the patient is not having any abnormalities in liver function tests. Cachexia, failure to meet caloric requirements, weight loss, awaiting a PEG tube insertion DVT of the right lower extremity currently on IV heparin, no evidence of any pulmonary embolism Stage IV decubitus ulcer currently has a wound VAC in place which could be another source of sepsis. Previous history of kidney failure requiring dialysis, current renal function is normal Hyponatremia, likely hypovolemic. SIADH is felt to be less likely. We'll continue to monitor. Refer to marketing program manager consultation. Based on hypotension, would like to give the patient IV fluids and monitor the sodium very closely. Anion gap metabolic acidosis History morbid obesity with ongoing weight loss Diabetes mellitus type 2 Bronchial asthma, chronic unspecified Diabetes mellitus type 2 Obstructive sleep apnea BPH Hypertension Hyperlipidemia Previous history of C. diff colitis Generalized debility due to his medical condition and the patient has been correction resident following his surgery Plan Workup to hypotension. We will give the patient was also liters of IV fluids and resuscitated patient with IV fluids bicarb infusion with 150 mEq of sodium bicarbonate of 150cc/hr an hour Check focused on Levaquin, lactic acid level, troponins, and check also stool for C. diff Check 2 sets of blood cultures Obtain blood gases Visit patient pressors and norepinephrine currently on 0.4 mu./kg per minute Abdominal exam is benign. Advice given for various consultants were noted from general surgery infectious disease and Interventional radiology. Establish triple-lumen catheter and arterial line Condition is critical. CODE STATUS is DNR/DNI based on patient's wishes. We'll run this also with his family including his . Time with Patient: Greater than 30
[2022-01-05] MEDS: VANCOMYCIN 1,500 MG in SODIUM CHLORIDE 0.9% 250 ML IVPB SCH (18:55)
[2022-01-05 19:12] LABS: Anisocytosis Slight; Basophils % (A) 0 %; Eosinophils % (A) 1 %; HCT 27.3 % (39.0-53.0); HGB 9.1 gm/dL (13.0-17.5); Lymphocytes % (A) 15 %; MCHC 33.5 g/dL (31.0-37.0); MCV 83.3 fL (80.0-100.0); Mean Platelet Volume 7.2; Monocytes # (A) 0.1 k/uL (0-1.0); Monocytes % (A) 2 %; Neutrophils # (A) 5.8 k/uL (1.3-7.7); Neutrophils % (A) 82 %; Platelet Count 374 k/uL (150-450); RBC 3.27 m/uL (4.30-5.90); Reticulocyte % 0.3 % (0.5-2.0)
[2022-01-05 19:23] LABS: INR 1.4 (<1.2); Partial Thromboplastin Time 47.2 sec (22.0-30.0); Prothrombin Time 14.1 sec (9.0-12.0)
[2022-01-05] MEDS ORDERED: HEPARIN SODIUM 1,000 UN/ML (10ML VL) IV ONE (19:28)
[2022-01-05] MEDS ORDERED: DEXTROSE 5% IN WATER 1,000 ML with SODIUM BICARB (1 MEQ/ML) 150 ML IV SCH (19:30)
--- NOTE | 2022-01-05 20:03 | XR ---
EXAMINATION TYPE: XR chest 1V portable DATE OF EXAM: 01/05/2022 COMPARISON: 01/01/2022 INDICATION: Central line placement TECHNIQUE: Single frontal view of the chest is obtained. FINDINGS: The heart size is normal. The pulmonary vasculature is normal. The lungs are clear. Left side PICC line is in place with the tip in the superior vena cava region. IMPRESSION: 1. No acute pulmonary process.
[2022-01-05] MEDS: HEPARIN SOD,PORK IN 0.45% NACL 25,000 UNIT in 0.45% NACL 1 250ML.BAG IV SCH (20:27)
[2022-01-05] MEDS: SODIUM CHLORIDE TAB 1 GM TAB PO SCH (21:16)
[2022-01-05 21:23] LABS: Potassium 3.1 mmol/L (3.5-5.1)
[2022-01-05 21:31] LABS: Calcium 6.4 mg/dL (8.4-10.2)
--- NOTE | 2022-01-05 21:31 | P.PN ---
Subjective this is a pleasant 61 yo M with past medical history of COPD, Diabetes Mellitus, Deep Vein Thrombosis, Hyperlipidemia, Hypertension, Sleep Apnea/CPAP/BIPAP He was in the hospital on 09/2021 for severe hypertension from decreased oral intake, acute metabolic encephalopathy, chronic congestive heart failure, diastolic with ejection fraction 55-60%, acute kidney injury, sinus tachycardia, status post cholecystectomy for his gangrenous cholecystitis, restless leg syndrome, BPH, chronic medical debility i talkled to the pt and at bed side , pt is from long-term , he was long-term since June 2021. At that time she was in the hospital for acute hypoxic respiratory failure of unknown causes. He needed intubation at that time. He had complete opacification in the left hemithorax he had 2 bronchoscopy done which was negative for microbial growth. He has another admission on 09/2021. Patient and states that he came here because he wanted to get the PEG tube because he was not eating anything since June and he lost a lot of weight he used to weigh 333 pounds and now 193. He states that his main issue is no appetite, he denies choking but he has sometimes nausea that prevent him from eating. Is also short of breath with cough and clear yellow phlegm but no chest pain, no abdominal pain. He has loose bowel movement once or twice a week. Also he has unstageable pressure decubitus ulcer status post debridement, he has wound VAC in place. Patient also complaining of from chronic left leg pain and tenderness, he would not allow someone to drop his leg because it hurts a lot. Inspection looks normal, no trauma. Also was complaining from weakness in both lower extremities since June Patient is tachycardic around 110, on admission heart rate was 125 afebrile. His lab reviewed including CBC showed mild anemia of 11.9, rest of CBC is unremarkable. INR is unremarkable at 1.1. Sodium was low at 123. Creatinine normal 0.8. Glucose was low at 66. Chest x-ray: No acute process. 01/02/2022 Last night patient was started on therapeutic dose Lovenox for acute right leg DVT, CT angiography chest and echo could not be done because have no IV access, patient was transferred to a small IV access was obtained in the right upper arm, not good enough for CT of the chest test or aggressive treatment. However IV fluids could be provided. Blood pressure is improved up to 110/68, however patient still tachycardic. Patient could not eat because of severe nausea and vomiting, H time he put something in his monthly follow-up as per bedside nurse, KUB showing some evidence of ileus, surgical team consult obtained. Social evaluation under direct consults are pending. 01/03/2022 Patient awake alert, looks more comfortable than the first taken to the hospital, less tachypneic, he denies any chest pain or abdominal pain. He tried to take small bites of mashed potato yesterday and he could not consume it and he immediately felt to throw up. CT of the chest is negative for PE, he remains on Lovenox for acute right DVT. CT of the abdomen is suspicious for a complex collection possible abscess although it's the size 5 cm diameter 2.7 cm, recommended ultrasound versus MRI, were going to order a liver ultrasound although it is of less sensitivity especially with this patient large body habitus however it is less invasive than MRI. Also flowcalcitonin is the slightly elevated. He is slightly tachycardic although is better than before. Blood pressure 93/63. Today sodium dropped 127 down to 122 because of this we held his IV fluids and reordered anemia workup in the urine and the serum, we will monitor his sodium level tomorrow if no improvement and may consider further workup. Surgical team consult is called, the plan for PEG tube placement on . Patient originally came to the hospital the PEG tube placement. Patient is not consuming his oral medication but we stopped his gabapentin and ropinirole. 01/04/2022 Kirsten Bach feels better today, he does not feel dizziness while he is lying in bed all the time. He still have low appetite but no chest pain or dyspnea, no abdominal pain. He still complaining from pain in his legs and he has right leg DVT been on Lovenox with plan to switch him to heparin drip on today as he got midline Blood pressure is 87/56, heart rate 120, sodium is 121 On admission his sodium was still low and was started on D5 normal saline at 100 mL/h however after initial improvement sodium dropped to 121 yesterday so we held his IV fluid and the evening sodium improved 124 (no iv lasix given), however this morning is 121 again. We send urine studies and I'll consult software developer intern. Also patient has negative CTPA for pulmonary embolism but CT of the abdomen and pelvis showing possible gallbladder fossa abscess or complex fluid collection although it is improved from previous 5 cm down to 2.7 centimeters. The recommended liver ultrasound versus MRI, ultrasound shows the same findings. Also surgery due on the case 01/05/2022 Last night his blood pressure dropped with systolic and 50s, there was a rapid response a team response and he was as stated with IV fluids aggressively, his blood pressure improved in 90s this morning and during the round he was awake and alert looks tired but is appropriate. Sodium was 121 and then 119. He denied any chest pain or abdominal pain, no other complaints clinically. His losing from his puncture wound in the right lower abdomen was a stopped, he was started on heparin drip per recommendation of voip engineer. After once by the evening time his blood pressure dropped again was 53/32 with altered mental status, there was another rapid response where patient was transferred to the ICU and levophed was started and his mentation started to improve again. Patient was started also on antibiotic empirically with Zosyn and IV vancomycin total infection ruled out completely as there is still high suspicion, with possible sources including the pressure wound sacral ulcer in the lower back, and less likely the gallbladder bed and fossa with 2.7 cm fluid collection (felt less likely because actually it decreased in size from 5.0 cm previously) After transfer patient and at bedside opted for the DO NOT RESUSCITATE order as per bedside nurse. Review of systems CONSTITUTIONAL: No fever, no malaise, no fatigue. HEENT: No recent visual problems or hearing problems. Denied any sore throat. CARDIOVASCULAR: No orthopnea, PND, no palpitations, no syncope. PULMONARY: No shortness of breath, no cough, no hemoptysis. NEUROLOGICAL: No headaches, no weakness, no numbness. HEMATOLOGICAL: Denies any bleeding or petechiae. Active Medications Generic Name Dose Route Start Last Admin Trade Name Freq PRN Reason Stop Dose Admin Hydrocodone Bitart/Acetaminophen 1 each 12/31/21 20:41 Hydrocodone/Apap 5-325mg 1 Each Tab PO Q6HR PRN Pain Albuterol Sulfate 2.5 mg 12/31/21 20:41 12/31/21 21:36 Albuterol Nebulized 2.5 Mg/3 Ml INHALATION 2.5 mg Q2H PRN Administration [employer] PATENCY Albuterol/Ipratropium 3 ml 01/01/22 08:00 01/05/22 18:59 Ipratropium-Albuterol 3 Ml Neb INHALATION 3 ml RT-QID ERINN Administration Ascorbic Acid 1,000 mg 01/01/22 08:00 01/05/22 09:58 Ascorbic Acid 500 Mg Tab PO 1,000 mg DAILY@0800 ERINN Administration Cholecalciferol 25 mcg 01/01/22 09:00 01/05/22 09:58 Cholecalciferol 25 Mcg (1000 Iu) Tablet PO 25 mcg DAILY ERINN Administration Dronabinol 5 mg 01/01/22 12:00 01/05/22 18:40 Dronabinol 2.5 Mg Cap PO Not Given BID@1200,1700 [facility] Folic Acid 1 mg 01/01/22 09:00 01/05/22 09:58 Folic Acid 1 Mg Tab PO 1 mg DAILY ERINN Administration Heparin Sodium (Porcine) 0 unit 01/05/22 19:28 Heparin Sodium 1,000 Un/Ml (10ml Vl) IV PER PROTOCOL PRN Low PTT Protocol Hydromorphone HCl 0.5 mg 12/31/21 20:44 Hydromorphone 0.5 Mg/0.5 Ml Syringe IVP Q4HR PRN Pain Piperacillin Sod/Tazobactam 100 mls @ 25 mls/hr 01/05/22 17:15 01/05/22 18:46 Sod 3.375 gm/ Sodium Chloride IVPB 25 mls/hr Q8HR ERINN Administration Protocol Norepinephrine Bitartrate 8 mg 258 mls @ 8.47 mls/hr 01/05/22 18:00 01/05/22 20:26 / Sodium Chloride IV 0.4 mcg/kg/min .Q24H ERINN 67.758 mls/hr Administration Protocol 0.05 MCG/KG/MIN Vancomycin HCl 1,500 mg/ 250 mls @ 125 mls/hr 01/05/22 19:00 01/05/22 18:55 Sodium Chloride IVPB 125 mls/hr Q12H ERINN Administration Heparin Sodium/Sodium Chloride 250 mls @ 15.758 mls/hr 01/05/22 19:30 20:27 25,000 unit/ Sodium Chloride IV 18 units/kg/hr .[id number] ERINN 15.758 mls/hr Administration Protocol 18 UNITS/KG/HR Sodium Bicarbonate 150 ml/ 1,150 mls @ 150 mls/hr 01/05/22 20:30 01/05/22 21:19 Sodium Chloride IV 150 mls/hr .Q7H40M ERINN Administration Magnesium Oxide 400 mg 01/02/22 02:00 01/05/22 21:16 Magnesium Oxide 400 Mg Tab PO 400 mg TID ERINN Administration Metoclopramide HCl 10 mg 01/03/22 18:00 01/05/22 18:45 Metoclopramide 5 Mg/Ml 2 Ml Vial IVP 10 mg Q6HR ERINN Administration Metoprolol Tartrate 50 mg 01/01/22 08:00 01/05/22 18:40 Metoprolol Tartrate 50 Mg Tab PO Not Given BID@0800,1600 ERINN Midodrine 10 mg 01/05/22 12:30 01/05/22 18:40 Midodrine 5 Mg Tab PO Not Given AC-TID ERINN Miscellaneous Information 1 each 01/02/22 06:58 Magnesium Replacement Protocol 1 Each Misc MISCELLANE DAILY PRN Per Protocol Protocol Miscellaneous Information 1 each 01/02/22 07:03 Potassium Replacement Protocol 1 Each Misc MISCELLANE DAILY PRN Per Protocol Protocol Multivitamins 1 each 01/01/22 09:00 01/05/22 09:58 Multivitamins, Thera 1 Each Tab PO 1 each DAILY ERINN Administration Naloxone HCl 0.2 mg 12/31/21 14:52 Naloxone 0.4 Mg/Ml 1 Ml Vial IV Q2M PRN Opioid Reversal Ondansetron HCl 4 mg 12/31/21 21:23 01/02/22 18:15 Ondansetron 4 Mg/2 Ml Vial IVP 4 mg Q6HR PRN Administration Nausea And Vomiting Pantoprazole Sodium 40 mg 12/31/21 21:00 01/05/22 21:17 Pantoprazole 40 Mg/10 Ml Vial IVP 40 mg BID ERINN Administration Potassium Chloride 20 meq 01/01/22 09:00 01/05/22 09:56 Potassium Chloride Er 20 Meq Tab.Er PO Not Given DAILY ERINN Potassium Chloride 40 meq 12/31/21 21:00 01/05/22 21:16 Potassium Chloride Er 20 Meq Tab.Er PO 40 meq HS ERINN Administration Sodium Chloride 2 gm 01/05/22 21:00 01/05/22 21:16 Sodium Chloride Tab 1 Gm Tab PO 2 gm BID ERINN Administration Tamsulosin HCl 0.4 mg 01/01/22 09:00 01/05/22 09:59 Tamsulosin 0.4 Mg Cap.Er.24h PO 0.4 mg DAILY ERINN Administration Objective - Vital Signs Vital signs: Vital Signs Temp 97.5 F L 01/05/22 19:30 Pulse 100 01/05/22 20:00 Resp 18 01/05/22 20:00 BP 97/76 01/05/22 20:00 Pulse Ox 99 01/05/22 20:00 FiO2 28 01/02/22 16:04 Intake & Output 01/05/22 01/05/22 01/06/22 06:59 18:59 06:59 Intake Total 310 2020 Output Total 90 Balance 310 1930 Intake: IV 10 2020 0.9 NACL 20 0.9 bolus 1500 Invasive Line 2 10 Sodium Chloride 0.45% 1, 150 000 ml @ 150 mls/hr IV . Q7H40M ERINN with Sodium Bicarb (1 Meq/ml) 150 ml Rx#:[id number] vancomycin 250 zosyn 100 Oral 300 Output: Urine 90 Other: Voiding Method External Catheter Urinal Indwelling Catheter # Bowel Movements 1 ABP, PAP, CO, CI - Last Documented Arterial Blood Pressure 94/48 - Exam GENERAL: The patient is alert and oriented x3, in no mild acute distress. BMI is 29.3. Patient looks pale and tachycardic HEENT: Pupils are round and equally reacting to light. EOMI. No scleral icterus. No conjunctival pallor. Normocephalic, atraumatic. No pharyngeal erythema. No thyromegaly. CARDIOVASCULAR: S1 and S2 present. No murmurs, rubs, or gallops. Mild tachypnea PULMONARY: Chest is clear to auscultation, no wheezing or crackles. ABDOMEN: Soft, nontender, nondistended, normoactive bowel sounds. No palpable organomegaly. -MUSCULOSKELETAL: No joint swelling or deformity. Unstageable sacral pressure ulcer -EXTREMITIES: No cyanosis, clubbing, or pedal edema. Left leg tenderness -NEUROLOGICAL: Cranial nerves are grossly intact. He has severe chronic bilateral lower extremity weakness (chronic 6 month as per pt), meningeal signs are absent. No sensory abnormality, no numbness or tingling SKIN: No rashes. no petechiae. - Labs CBC & Chem 7: 01/05/22 18:30 01/05/22 09:01 Labs: Abnormal Lab Results - Last 24 Hours (Table) 01/04/22 01/05/22 01/05/22 Range/Units 14:16 03:06 09:01 RBC (4.30-5.90) m/uL Hgb (13.0-17.5) gm/dL Hct (39.0-53.0) % RDW (11.5-15.5) % Lymphocytes # (1.0-4.8) k/uL Retic Count (0.5-2.0) % PT (9.0-12.0) sec INR (<1.2) APTT (22.0-30.0) sec ABG pCO2 (35-45) mmHg ABG pO2 (83-108) mmHg ABG HCO3 (21-25) mmol/L ABG O2 Saturation (94-97) % Sodium 123 L (137-145) mmol/L Potassium 6.4 H* (3.5-5.1) mmol/L Chloride (98-107) mmol/L Carbon Dioxide 13 L (22-30) mmol/L Calcium (8.4-10.2) mg/dL Procalcitonin 0.30 H (0.02-0.09) ng/mL Ur Random Sodium <20 L (40-220) mmol/L 01/05/22 01/05/22 01/05/22 Range/Units 09:01 09:01 09:01 RBC 3.40 L (4.30-5.90) m/uL Hgb 9.6 L (13.0-17.5) gm/dL Hct 28.3 L (39.0-53.0) % RDW 17.8 H (11.5-15.5) % Lymphocytes # 0.9 L (1.0-4.8) k/uL Retic Count (0.5-2.0) % PT 13.3 H (9.0-12.0) sec INR 1.3 H (<1.2) APTT (22.0-30.0) sec ABG pCO2 (35-45) mmHg ABG pO2 (83-108) mmHg ABG HCO3 (21-25) mmol/L ABG O2 Saturation (94-97) % Sodium 119 L* (137-145) mmol/L Potassium (3.5-5.1) mmol/L Chloride 97 L (98-107) mmol/L Carbon Dioxide 16 L (22-30) mmol/L Calcium 7.1 L (8.4-10.2) mg/dL Procalcitonin (0.02-0.09) ng/mL Ur Random Sodium (40-220) mmol/L 01/05/22 01/05/22 01/05/22 Range/Units 18:30 18:30 18:40 RBC 3.27 L (4.30-5.90) m/uL Hgb 9.1 L (13.0-17.5) gm/dL Hct 27.3 L (39.0-53.0) % RDW 18.0 H (11.5-15.5) % Lymphocytes # (1.0-4.8) k/uL Retic Count 0.3 L (0.5-2.0) % PT 14.1 H (9.0-12.0) sec INR 1.4 H (<1.2) APTT 47.2 H (22.0-30.0) sec ABG pCO2 27 L (35-45) mmHg ABG pO2 120 H (83-108) mmHg ABG HCO3 19 L (21-25) mmol/L ABG O2 Saturation 99.1 H (94-97) % Sodium (137-145) mmol/L Potassium (3.5-5.1) mmol/L Chloride (98-107) mmol/L Carbon Dioxide (22-30) mmol/L Calcium (8.4-10.2) mg/dL Procalcitonin (0.02-0.09) ng/mL Ur Random Sodium (40-220) mmol/L Assessment and Plan Assessment: Severe hypotension and shock state requiring pressors, possible septic shock versus other Complex liver collection adjacent to gallbladder fossa 2.7 cm suspicious for abscess versus other Hyponatremia Persistent nausea and vomiting secondary to ileus, rule out other causes Acute right leg DVT Severe appetite loss associated with Loss of weight and nausea Dehydration and hypovolemia, improving Unstageable chronic decubitus ulcer status post wound VAC placement Anemia of chronic diseases mellitus, With hyperglycemia on admission Hypertension Hyperlipidemia History of COPD Chronic congestive heart failure with ejection fraction 55-60% History of metabolic encephalopathy Sinus tachycardia Status post cholecystectomy Restless leg syndrome BPH Chronic medical debility Plan: This is a pleasant 61 years old male who presents with dehydration, loss of appetite and loss of weight, hyponatremia, bilateral leg pain and other medical problems continue with pressors and ICU management as per chocolate temperer and pulmonary care team Start the patient empirically on Zosyn and vancomycin, follow-up blood culture Continue urine studies. Consult software developer intern, monitor sodium level, and workup for hyponatremia Continue withheparin drip Surgical team are planning for PEG tube (on hold for now ) Labs and medications are reviewed.. Continue same treatment. Continue with symptomatic treatment. Resume home medication. Monitor lytes and vitals. DVT and GI prophylaxis. Further recommendations as per clinical course of the patient DVT prophylaxis Heparin GI Prophylaxis: Ppi Prognosis is guarded The scope with the bedside nurse
[2022-01-05] MEDS ORDERED: CALCIUM GLUCONATE IN NACL 1 GM in SALINE 1 100ML.BAG IVPB ONE ×2 (21:49→22:33)
[2022-01-05 23:10] LABS: Glucose,Whole Blood 185 mg/dL (70-110)
[2022-01-05] MEDS ORDERED: SODIUM CHLORIDE 0.9% 2,000 ML IV ONE (23:30)
[2022-01-06] MEDS: SODIUM CHLORIDE 0.9% 150 ML with VASOPRESSIN 60 UNIT IV SCH ×4 (00:12→23:46)
[2022-01-06] MEDS ORDERED: LIDOCAINE 1% (10MG/ML) FOR IV START INTRADERMA PRN (01:32)
[2022-01-06] MEDS: NOREPINEPHRINE 32 MG in SODIUM CHLORIDE 0.9% 218 ML IV SCH ×3 (04:05→23:42)
[2022-01-06] MEDS: SODIUM CHLORIDE 0.45% 1,000 ML with SODIUM BICARB (1 MEQ/ML) 150 ML IV SCH ×6 (04:08→21:00)
[2022-01-06 04:14] LABS: Anisocytosis Slight; Basophils % (A) 0 %; Eosinophils % (A) 0 %; HCT 27.1 % (39.0-53.0); HGB 9.1 gm/dL (13.0-17.5); Lymphocytes # (A) 0.8 k/uL (1.0-4.8); Lymphocytes % (A) 9 %; MCH 28.1 pg (25.0-35.0); MCHC 33.5 g/dL (31.0-37.0); MCV 83.9 fL (80.0-100.0); Mean Platelet Volume 7.2; Monocytes # (A) 0.2 k/uL (0-1.0); Monocytes % (A) 2 %; Neutrophils # (A) 7.8 k/uL (1.3-7.7); Neutrophils % (A) 87 %; Platelet Count 366 k/uL (150-450); RBC 3.23 m/uL (4.30-5.90); RDW 17.9 % (11.5-15.5); WBC 8.9 k/uL (3.8-10.6)
[2022-01-06 04:27] LABS: INR 1.5 (<1.2); Prothrombin Time 15.7 sec (9.0-12.0)
[2022-01-06 04:52] LABS: ALT 23 U/L (4-49); AST 41 U/L (17-59); African American GFR (CKD) >90 (>60 ml/min/1.73 sqM); Albumin 1.7 g/dL (3.5-5.0); Alkaline Phosphatase 179 U/L (38-126); Anion Gap 6 mmol/L; Blood Urea Nitrogen 11 mg/dL (9-20); Calcium 6.6 mg/dL (8.4-10.2); Carbon Dioxide 17 mmol/L (22-30); Chloride 102 mmol/L (98-107); Glucose 158 mg/dL (74-99); Magnesium 1.5 mg/dL (1.6-2.3); Non-African American GFR(CKD) 81 (>60 ml/min/1.73 sqM); Potassium 3.3 mmol/L (3.5-5.1); Sodium 125 mmol/L (137-145); Total Bilirubin 0.6 mg/dL (0.2-1.3)
[2022-01-06] MEDS: METOCLOPRAMIDE 5 MG/ML 2 ML VIAL IVP SCH ×3 (06:17→17:47)
[2022-01-06] MEDS: VANCOMYCIN 1,500 MG in SODIUM CHLORIDE 0.9% 250 ML IVPB SCH ×2 (06:17→20:13)
[2022-01-06] MEDS: MIDODRINE 5 MG TAB PO SCH ×3 (06:17→17:21)
[2022-01-06] MEDS: IPRATROPIUM-ALBUTEROL 3 ML NEB INHALATION SCH ×4 (07:14→20:48)
[2022-01-06] MEDS ORDERED: SODIUM CHLORIDE 0.9% 2,000 ML IV ONE (08:47)
[2022-01-06] MEDS: LACTATED RINGERS 1,000 ML IV SCH (08:48)
[2022-01-06] MEDS: METOPROLOL TARTRATE 50 MG TAB PO SCH ×2 (08:49→16:38)
[2022-01-06] MEDS: PIPERACILLIN-TAZOBACTAM 3.375 GM in SODIUM CHLORIDE 0.9% 100 ML IVPB SCH ×2 (08:49→20:14)
[2022-01-06] MEDS: ASCORBIC ACID 500 MG TAB PO SCH (08:49)
[2022-01-06] MEDS: MAGNESIUM OXIDE 400 MG TAB PO SCH ×3 (08:50→21:35)
[2022-01-06] MEDS: FOLIC ACID 1 MG TAB PO SCH (08:50)
[2022-01-06] MEDS: CHOLECALCIFEROL 25 MCG (1000 IU) TABLET PO SCH (08:50)
[2022-01-06] MEDS: POTASSIUM CHLORIDE ER 20 MEQ TAB.ER PO SCH ×2 (08:51→21:35)
[2022-01-06] MEDS: SODIUM CHLORIDE TAB 1 GM TAB PO SCH ×2 (08:51→21:35)
[2022-01-06] MEDS: PANTOPRAZOLE 40 MG/10 ML VIAL IVP SCH ×2 (08:51→21:49)
[2022-01-06] MEDS: MULTIVITAMINS, THERA 1 EACH TAB PO SCH (08:51)
[2022-01-06] MEDS: TAMSULOSIN 0.4 MG CAP.ER.24H PO SCH (08:51)
[2022-01-06] MEDS ORDERED: CALCIUM GLUCONATE IN NACL 1 GM in SALINE 1 100ML.BAG IVPB ONE ×2 (11:12→18:32)
--- NOTE | 2022-01-06 11:38 | P.PN ---
Subjective Progress Note Date: 01/06/22 I was asked to evaluate this patient and chance for him to the intensive care unit and the patient has been quite elevated cardiac and hypotensive in addition to significant electrolyte and blood abnormalities. The patient is known to have multiple comorbidities. He has COPD, diabetes mellitus, hypertension , and addition to obstructive sleep apnea and the patient utilizes CPAP machine. The patient had an open cholecystectomy for gangrenous cholecystitis and the surgery was on 09/17/2021. At that time, the patient was quite ill and septic. He developed acute respiratory failure following his surgery and the patient was extubated successfully. During the course of the illness, the patient and acute kidney injury and he was initially on hemodialysis via permacath. The patient presented back to our hospital from the correction where he was residing and the patient was quite lethargic and dehydrated. The patient apparently was initially brought into the hospital for a PEG tube placement as the patient wasn't eating or drinking and he had lost significant amount of weight. He has also developed a pressure ulcer of his left gluteal area and the patient was seen by the wound care team and the patient has a wound VAC applied to that area. There was a concern for development of a abscess in the liver. A CAT scan of the abdomen was done that raised concerns for a fluid collection/abscess in the gallbladder fossa and a similar findings were also seen on the ultrasound of the abdomen. The case was reviewed by interventional radiology. This finding was quite deep in the abdomen and limited for percutaneous access. Based on that, no intervention was done. Over the past 24 hours, the patient has been acting more septic. The patient was hypotensive and the A team was activated. The patient apparently was running a lower blood pressure. The patient also had been refusing to take his medication. He was given fluid boluses. He was started on bicarb infusion at the rate of 75 mL an hour and he was also started on midodrine and salt tablets. He was noted to be hyponatremic. Subsequently, his condition decompensated and this afternoon, the patient was examined the lethargic, unresponsive, labs showed a sodium level of 119, serum bicarb was 16 with a anion gap of 6. BUN was 11 with a creatinine of 0.6. The pro-calcitonin level was 0.3. The patient had a White second of 9.0 with a hemoglobin of 9.6. Coagulation profile was within normal limits. The sodium level is 119 with a serum bicarb of 16 and an anion gap of 6. Noted the patient was hyponatremic during this current admission. The sodium level progressively dropped and the patient did not respo nd to normal saline. Urine sodium was low, less than 20 but urine osmolality was at 454. The patient was seen by nephrology and the normal saline was discontinued. For now, the patient is on a bicarb infusion at the rate of 70 mL an hour. He was started also on IV Zosyn. Note that during this current admission, the patient was found to have a right lower extremity DVT and the pat ient was started on Lovenox and this was switched to IV heparin. The patient did not have any pulmonary embolism based on the CT angiogram. Echocardiac Michael showed a preserved LV function. His serum cortisone level was elevated. After the patient being chest to the intensive care unit, he was given a total of 2 L of bolus. He became more alert and responsive. He had to be started on pressors and currently norepinephrine infusion is running at 0.4 mcg/kg per minute. The patient was given a triple lumen catheter and arterial line catheter for intensive hemodynamic monitoring. The patient was started on IV Zosyn and the patient will be given vancomycin. Wound VAC is in place. Abdomen is soft. Mental status is gradually improving. He was able to recognize when he was older to follow simple commands. He is receiving the second bolus of normal saline for now. 01/06/2022, the patient is being seen for a follow-up. This patient is developing progressive hypotension and patient is currently in a shock state. Suspect septic shock although no positive cultures are available. the patient got chest to the ICU yesterday because of hyponatremia, hypotension, shock state and the patient was started with broad-spectrum antibiotics and the patient was resuscitated IV fluids. The patient overnight, was Bicarb Infusion with a Total 150 Mg of Sodium Bicarbonate of 150 ML an Hour. The Patient Was Given a Total of 2 L Normal Saline Bolus Immediately. The Patient Was Started on a Combination of Zosyn and vancomycin. The patient was also started on pressors. Norepinephrine infusion currently running at 0.4 mg/kg per minute and the patient is also on a vasopressin physiologic dose. The patient is also found to have a lactic acid level of 2.1. Pro-calcitonin level is at 0.33, mildly elevated and the troponin was at 0.03. The patient is a preserved LV function based on previous echocardiogram. At the same time, the patient remains on 2 L of oxygen by nasal cannula. Post line chest x-ray showed no evidence of any pneumonia or any other pulmonary complications. On today's evaluation, he remains lethargic. Oral intake is minimal. No nausea or emesis. No abdominal pain. He is arousable and follows simple commands. He feels extremely weak. Denies having any other complaints. Meanwhile, the white cell count today is at 8.9 with hemoglobin of 9.1 and the patient has a platelet count of 366. The PTT was supratherapeutic and is currently on hold and those being adjusted by pharmacy. Sodium level is up to 125 with a BUN of 11 and a creatinine of 1.01. LFTs show an AST of 41, ALT of 23, alkaline phosphatase of 179, serum albumin is 1.7. Stool for occult blood and C. diff were both negative. The patient has still a wound VAC in place. Cultures were sent and the results are still negative for now. Objective - Vital Signs Vital signs: Vital Signs Temp 98.2 F 01/06/22 08:00 Pulse 122 H 01/06/22 10:58 Resp 19 01/06/22 09:45 BP 104/75 01/06/22 09:45 Pulse Ox 98 01/06/22 09:45 FiO2 28 01/02/22 16:04 Intake & Output 01/05/22 01/06/22 01/06/22 18:59 06:59 18:59 Intake Total 310 6133.579 604.178 Output Total 235 27 Balance 310 5898.579 577.178 Weight 106 kg Intake: IV 10 5750 510 0.9 NACL 220 60 0.9 bolus 1500 Invasive Line 2 10 30 Sodium Chloride 0.45% 1, 1650 450 000 ml @ 150 mls/hr IV . Q7H40M ERINN with Sodium Bicarb (1 Meq/ml) 150 ml Rx#:[id number] Sodium Chloride 0.9% 2, 2000 000 ml @ 999 mls/hr IV . Q2H1M ONE Rx#:[id number] vancomycin 250 zosyn 100 Intake, IV Titration 383.579 94.178 Amount Heparin Sod,Pork in 0.45% 125.579 0 NaCl 25,000 unit In 0.45 % NaCl 1 250ml.bag @ 18 UNITS/KG/HR 15.758 mls/hr IV .[id number] ERINN Rx#: [id number] Norepinephrine 32 mg In 94.178 Sodium Chloride 0.9% 218 ml @ 0.5 MCG/KG/MIN 20. 518 mls/hr IV .[id number] ERINN Rx#:[id number] Norepinephrine 8 mg In 258.000 Sodium Chloride 0.9% 250 ml @ 0.05 MCG/KG/MIN 8.47 mls/hr IV .Q24H ERINN Rx#: [id number] Oral 300 Output: Urine 235 27 Other: Voiding Method Urinal Indwelling Catheter Indwelling Catheter # Bowel Movements 1 2 ABP, PAP, CO, CI - Last Documented Arterial Blood Pressure 127/69 - Exam Gen. appearance the patient is awake and alert and is following simple commands. He is a bit drowsy and sleepy. He is profoundly weak in all 4 extremities. No agitation. No delirium. Head exam was generally normal. There was no scleral icterus or corneal arcus. Mucous membranes were moist. Neck was supple and without jugular venous distension, thyromegaly, or carotid bruits. Carotids were easily palpable bilaterally. There was no adenopathy. Lungs were clear to auscultation and percussion, and with normal diaphragmatic excursion. No wheezes or rales were noted. Heart sounds are distant positive sinus and there is no significant murmurs a ppreciated Abdominal exam revealed normal bowel sounds. The abdomen was soft, non-tender, and without masses, organomegaly, or appreciable enlargement of the abdominal aorta. Patient is also developed some bleeding from the skin at the site of Lovenox injections. There is areas of ecchymosis. No direct tenderness. No rebound tenderness. No guarding. Surgical wound site over the right upper q uadrant at the site of the open cholecystectomy dry clean and intact. Bowel sounds are hypoactive at the present. No distention. No ascites. Extremities are mottled and the patient diminished pulses bilaterally, no cyanosis. Neurologically the patient is following commands and answering questions. No focal neurological deficits. Profoundly weak Skin the patient has a wound VAC in his pulse ox regarding his stage IV sacral decubitus ulceration. - Labs CBC & Chem 7: 01/06/22 04:00 01/06/22 04:00 Labs: Abnormal Lab Results - Last 24 Hours (Table) 01/05/22 01/05/22 01/05/22 Range/Units 09:01 18:30 18:30 RBC 3.27 L (4.30-5.90) m/uL Hgb 9.1 L (13.0-17.5) gm/dL Hct 27.3 L (39.0-53.0) % RDW 18.0 H (11.5-15.5) % Neutrophils # (1.3-7.7) k/uL Lymphocytes # (1.0-4.8) k/uL Retic Count 0.3 L (0.5-2.0) % PT 14.1 H (9.0-12.0) sec INR 1.4 H (<1.2) APTT 47.2 H (22.0-30.0) sec ABG pCO2 (35-45) mmHg ABG pO2 (83-108) mmHg ABG HCO3 (21-25) mmol/L ABG O2 Saturation (94-97) % ABG Lactic Acid (0.5-1.6) mmol/L Sodium (137-145) mmol/L Potassium (3.5-5.1) mmol/L Carbon Dioxide (22-30) mmol/L Glucose (74-99) mg/dL POC Glucose (mg/dL) (70-110) mg/dL Calcium (8.4-10.2) mg/dL Magnesium (1.6-2.3) mg/dL Alkaline Phosphatase (38-126) U/L Total Protein (6.3-8.2) g/dL Albumin (3.5-5.0) g/dL Procalcitonin 0.30 H (0.02-0.09) ng/mL 01/05/22 01/05/22 01/05/22 Range/Units 18:30 18:40 20:50 RBC (4.30-5.90) m/uL Hgb (13.0-17.5) gm/dL Hct (39.0-53.0) % RDW (11.5-15.5) % Neutrophils # (1.3-7.7) k/uL Lymphocytes # (1.0-4.8) k/uL Retic Count (0.5-2.0) % PT (9.0-12.0) sec INR (<1.2) APTT (22.0-30.0) sec ABG pCO2 27 L (35-45) mmHg ABG pO2 120 H (83-108) mmHg ABG HCO3 19 L (21-25) mmol/L ABG O2 Saturation 99.1 H (94-97) % ABG Lactic Acid (0.5-1.6) mmol/L Sodium 122 L (137-145) mmol/L Potassium 3.1 L (3.5-5.1) mmol/L Carbon Dioxide 17 L (22-30) mmol/L Glucose 151 H (74-99) mg/dL POC Glucose (mg/dL) (70-110) mg/dL Calcium 6.4 L* (8.4-10.2) mg/dL Magnesium (1.6-2.3) mg/dL Alkaline Phosphatase (38-126) U/L Total Protein (6.3-8.2) g/dL Albumin (3.5-5.0) g/dL Procalcitonin 0.33 H (0.02-0.09) ng/mL 01/05/22 01/05/22 01/06/22 Range/Units 23:08 23:10 04:00 RBC 3.23 L (4.30-5.90) m/uL Hgb 9.1 L (13.0-17.5) gm/dL Hct 27.1 L (39.0-53.0) % RDW 17.9 H (11.5-15.5) % Neutrophils # 7.8 H (1.3-7.7) k/uL Lymphocytes # 0.8 L (1.0-4.8) k/uL Retic Count (0.5-2.0) % PT (9.0-12.0) sec INR (<1.2) APTT 185.7 H* (22.0-30.0) sec ABG pCO2 (35-45) mmHg ABG pO2 (83-108) mmHg ABG HCO3 (21-25) mmol/L ABG O2 Saturation (94-97) % ABG Lactic Acid (0.5-1.6) mmol/L Sodium (137-145) mmol/L Potassium (3.5-5.1) mmol/L Carbon Dioxide (22-30) mmol/L Glucose (74-99) mg/dL POC Glucose (mg/dL) 185 H (70-110) mg/dL Calcium (8.4-10.2) mg/dL Magnesium (1.6-2.3) mg/dL Alkaline Phosphatase (38-126) U/L Total Protein (6.3-8.2) g/dL Albumin (3.5-5.0) g/dL Procalcitonin (0.02-0.09) ng/mL 01/06/22 01/06/22 01/06/22 Range/Units 04:00 04:00 05:27 RBC (4.30-5.90) m/uL Hgb (13.0-17.5) gm/dL Hct (39.0-53.0) % RDW (11.5-15.5) % Neutrophils # (1.3-7.7) k/uL Lymphocytes # (1.0-4.8) k/uL Retic Count (0.5-2.0) % PT 15.7 H (9.0-12.0) sec INR 1.5 H (<1.2) APTT (22.0-30.0) sec ABG pCO2 (35-45) mmHg ABG pO2 (83-108) mmHg ABG HCO3 (21-25) mmol/L ABG O2 Saturation (94-97) % ABG Lactic Acid 2.1 H (0.5-1.6) mmol/L Sodium 125 L (137-145) mmol/L Potassium 3.3 L (3.5-5.1) mmol/L Carbon Dioxide 17 L (22-30) mmol/L Glucose 158 H (74-99) mg/dL POC Glucose (mg/dL) (70-110) mg/dL Calcium 6.6 L (8.4-10.2) mg/dL Magnesium 1.5 L (1.6-2.3) mg/dL Alkaline Phosphatase 179 H (38-126) U/L Total Protein 4.0 L (6.3-8.2) g/dL Albumin 1.7 L (3.5-5.0) g/dL Procalcitonin (0.02-0.09) ng/mL 01/06/22 Range/Units 05:50 RBC (4.30-5.90) m/uL Hgb (13.0-17.5) gm/dL Hct (39.0-53.0) % RDW (11.5-15.5) % Neutrophils # (1.3-7.7) k/uL Lymphocytes # (1.0-4.8) k/uL Retic Count (0.5-2.0) % PT (9.0-12.0) sec INR (<1.2) APTT >200.0 H* (22.0-30.0) sec ABG pCO2 (35-45) mmHg ABG pO2 (83-108) mmHg ABG HCO3 (21-25) mmol/L ABG O2 Saturation (94-97) % ABG Lactic Acid (0.5-1.6) mmol/L Sodium (137-145) mmol/L Potassium (3.5-5.1) mmol/L Carbon Dioxide (22-30) mmol/L Glucose (74-99) mg/dL POC Glucose (mg/dL) (70-110) mg/dL Calcium (8.4-10.2) mg/dL Magnesium (1.6-2.3) mg/dL Alkaline Phosphatase (38-126) U/L Total Protein (6.3-8.2) g/dL Albumin (3.5-5.0) g/dL Procalcitonin (0.02-0.09) ng/mL Assessment and Plan Plan: Acute hypotension. Likely this hypotension is a septic shock. No positive blood cultures identified thus far. The patient is currently on accommodation Zosyn and vancomycin. IV lines were established occluded cerumen catheter and the central line and arterial line. The patient is being resuscitated IV fluids and pressors and the patient is currently on examination of norepinephrine and vasopressin. No clear identifiable source of sepsis. The pro-calcitonin level is low at 0.3. Lactic acid level is also nonelevated. General surgeries on the case. No signs of any acute abdomen at this point in time. Change in mental status, improving with fluid resuscitation and improvement in the blood pressure Recent gangrenous cholecystitis with a right cholecystectomy, open. There is a collection in the gallbladder fossa which is most likely benign. Abdominal exam is benign and the patient is not having any abnormalities in liver function tests. Cachexia, failure to meet caloric requirements, weight loss, awaiting a PEG tube insertion DVT of the right lower extremity currently on IV heparin, no evidence of any pulmonary embolism, and IV heparin has been placed on hold due to a supratherapeutic DVT Stage IV decubitus ulcer currently has a wound VAC in place which could be another source of sepsis. Previous history of kidney failure requiring dialysis, current renal function is normal Hyponatremia, likely hypovolemic. SIADH is felt to be less likely. We'll continue to monitor. 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 Based on hypotension, would like to give the patient IV fluids and monitor the sodium very closely. The patient's sodium levels are gradually improving and the sodium level is up to 125 None Anion gap metabolic acidosis History morbid obesity with ongoing weight loss Diabetes mellitus type 2 Bronchial asthma, chronic unspecified Diabetes mellitus type 2 Obstructive sleep apnea BPH Hypertension Hyperlipidemia Previous history of C. diff colitis Generalized debility due to his medical condition and the patient has been correction resident following his surgery Plan Give the patient additional 2 L of IV fluids Check CVP Continue with a bicarb infusion Continue Zosyn and vancomycin Awaiting results of the blood cultures Continue norepinephrine infusion and titrate the dose Continue vasopressin A cortisol level of the sclerae Condition is critical. CODE STATUS is DNR/DNI based on patient's wishes. We'll run this also with his family including his . Critically care evaluation done more than 30 minutes Time with Patient: Greater than 30
[2022-01-06] MEDS ORDERED: FUROSEMIDE 10 MG/ML 10 ML VIAL IV STA (12:10)
[2022-01-06] MEDS: HEPARIN SOD,PORK IN 0.45% NACL 25,000 UNIT in 0.45% NACL 1 250ML.BAG IV SCH (12:13)
--- NOTE | 2022-01-06 12:41 | P.PN ---
Subjective Patient is seen for follow-up for hyponatremia. Patient had been maintained on IV bicarb and developed hypotension yesterday. Patient received multiple fluid boluses and was transferred to the ICU. He is currently on pressors. Antibiotics have been changed. Serum sodium has improved however patient is currently oliguric CODE STATUS is DO NOT RESUSCITATE No active bleeding noted Patient is lethargic Objective - Vital Signs Vital signs: Vital Signs Temp 97.6 F 01/06/22 12:00 Pulse 126 H 01/06/22 12:00 Resp 21 01/06/22 12:00 BP 125/100 01/06/22 12:00 Pulse Ox 97 01/06/22 12:00 FiO2 28 01/02/22 16:04 Intake & Output 01/05/22 01/06/22 01/06/22 18:59 06:59 18:59 Intake Total 310 6133.579 1402.552 Output Total 235 42 Balance 310 5898.579 1360.552 Weight 106 kg Intake: IV 10 5750 1020 0.9 NACL 220 120 0.9 bolus 1500 Invasive Line 2 10 30 Sodium Chloride 0.45% 1, 1650 900 000 ml @ 150 mls/hr IV . Q7H40M ERINN with Sodium Bicarb (1 Meq/ml) 150 ml Rx#:[id number] Sodium Chloride 0.9% 2, 2000 000 ml @ 999 mls/hr IV . Q2H1M ONE Rx#:[id number] vancomycin 250 zosyn 100 Intake, IV Titration 383.579 132.552 Amount Heparin Sod,Pork in 0.45% 125.579 18.779 NaCl 25,000 unit In 0.45 % NaCl 1 250ml.bag @ 18 UNITS/KG/HR 15.758 mls/hr IV .[id number] ERINN Rx#: [id number] Norepinephrine 32 mg In 113.773 Sodium Chloride 0.9% 218 ml @ 0.5 MCG/KG/MIN 20. 518 mls/hr IV .[id number] ERINN Rx#:[id number] Norepinephrine 8 mg In 258.000 Sodium Chloride 0.9% 250 ml @ 0.05 MCG/KG/MIN 8.47 mls/hr IV .Q24H ERINN Rx#: [id number] Oral 300 250 Output: Urine 235 42 Other: Voiding Method Urinal Indwelling Catheter Indwelling Catheter # Bowel Movements 1 2 ABP, PAP, CO, CI - Last Documented Arterial Blood Pressure 101/60 - Exam Patient is comfortable he is awake His lethargic and Placida not in any acute distress Examination of the heart S1 and S2 Examination lungs bilateral breath sounds are heard Abdomen is soft obese nontender Examination of the lower extremity shows edema 2+ bilaterally. Patient is not able to move his legs much. Patient is following commands - Labs CBC & Chem 7: 01/06/22 04:00 01/06/22 04:00 Labs: Abnormal Lab Results - Last 24 Hours (Table) 01/05/22 01/05/22 01/05/22 Range/Units 09:01 18:30 18:30 RBC 3.27 L (4.30-5.90) m/uL Hgb 9.1 L (13.0-17.5) gm/dL Hct 27.3 L (39.0-53.0) % RDW 18.0 H (11.5-15.5) % Neutrophils # (1.3-7.7) k/uL Lymphocytes # (1.0-4.8) k/uL Retic Count 0.3 L (0.5-2.0) % PT 14.1 H (9.0-12.0) sec INR 1.4 H (<1.2) APTT 47.2 H (22.0-30.0) sec ABG pCO2 (35-45) mmHg ABG pO2 (83-108) mmHg ABG HCO3 (21-25) mmol/L ABG O2 Saturation (94-97) % ABG Lactic Acid (0.5-1.6) mmol/L Sodium (137-145) mmol/L Potassium (3.5-5.1) mmol/L Carbon Dioxide (22-30) mmol/L Glucose (74-99) mg/dL POC Glucose (mg/dL) (70-110) mg/dL Calcium (8.4-10.2) mg/dL Magnesium (1.6-2.3) mg/dL Alkaline Phosphatase (38-126) U/L Total Protein (6.3-8.2) g/dL Albumin (3.5-5.0) g/dL Procalcitonin 0.30 H (0.02-0.09) ng/mL 01/05/22 01/05/22 01/05/22 Range/Units 18:30 18:40 20:50 RBC (4.30-5.90) m/uL Hgb (13.0-17.5) gm/dL Hct (39.0-53.0) % RDW (11.5-15.5) % Neutrophils # (1.3-7.7) k/uL Lymphocytes # (1.0-4.8) k/uL Retic Count (0.5-2.0) % PT (9.0-12.0) sec INR (<1.2) APTT (22.0-30.0) sec ABG pCO2 27 L (35-45) mmHg ABG pO2 120 H (83-108) mmHg ABG HCO3 19 L (21-25) mmol/L ABG O2 Saturation 99.1 H (94-97) % ABG Lactic Acid (0.5-1.6) mmol/L Sodium 122 L (137-145) mmol/L Potassium 3.1 L (3.5-5.1) mmol/L Carbon Dioxide 17 L (22-30) mmol/L Glucose 151 H (74-99) mg/dL POC Glucose (mg/dL) (70-110) mg/dL Calcium 6.4 L* (8.4-10.2) mg/dL Magnesium (1.6-2.3) mg/dL Alkaline Phosphatase (38-126) U/L Total Protein (6.3-8.2) g/dL Albumin (3.5-5.0) g/dL Procalcitonin 0.33 H (0.02-0.09) ng/mL 01/05/22 01/05/22 01/06/22 Range/Units 23:08 23:10 04:00 RBC 3.23 L (4.30-5.90) m/uL Hgb 9.1 L (13.0-17.5) gm/dL Hct 27.1 L (39.0-53.0) % RDW 17.9 H (11.5-15.5) % Neutrophils # 7.8 H (1.3-7.7) k/uL Lymphocytes # 0.8 L (1.0-4.8) k/uL Retic Count (0.5-2.0) % PT (9.0-12.0) sec INR (<1.2) APTT 185.7 H* (22.0-30.0) sec ABG pCO2 (35-45) mmHg ABG pO2 (83-108) mmHg ABG HCO3 (21-25) mmol/L ABG O2 Saturation (94-97) % ABG Lactic Acid (0.5-1.6) mmol/L Sodium (137-145) mmol/L Potassium (3.5-5.1) mmol/L Carbon Dioxide (22-30) mmol/L Glucose (74-99) mg/dL POC Glucose (mg/dL) 185 H (70-110) mg/dL Calcium (8.4-10.2) mg/dL Magnesium (1.6-2.3) mg/dL Alkaline Phosphatase (38-126) U/L Total Protein (6.3-8.2) g/dL Albumin (3.5-5.0) g/dL Procalcitonin (0.02-0.09) ng/mL 01/06/22 01/06/22 01/06/22 Range/Units 04:00 04:00 05:27 RBC (4.30-5.90) m/uL Hgb (13.0-17.5) gm/dL Hct (39.0-53.0) % RDW (11.5-15.5) % Neutrophils # (1.3-7.7) k/uL Lymphocytes # (1.0-4.8) k/uL Retic Count (0.5-2.0) % PT 15.7 H (9.0-12.0) sec INR 1.5 H (<1.2) APTT (22.0-30.0) sec ABG pCO2 (35-45) mmHg ABG pO2 (83-108) mmHg ABG HCO3 (21-25) mmol/L ABG O2 Saturation (94-97) % ABG Lactic Acid 2.1 H (0.5-1.6) mmol/L Sodium 125 L (137-145) mmol/L Potassium 3.3 L (3.5-5.1) mmol/L Carbon Dioxide 17 L (22-30) mmol/L Glucose 158 H (74-99) mg/dL POC Glucose (mg/dL) (70-110) mg/dL Calcium 6.6 L (8.4-10.2) mg/dL Magnesium 1.5 L (1.6-2.3) mg/dL Alkaline Phosphatase 179 H (38-126) U/L Total Protein 4.0 L (6.3-8.2) g/dL Albumin 1.7 L (3.5-5.0) g/dL Procalcitonin (0.02-0.09) ng/mL 01/06/22 Range/Units 05:50 RBC (4.30-5.90) m/uL Hgb (13.0-17.5) gm/dL Hct (39.0-53.0) % RDW (11.5-15.5) % Neutrophils # (1.3-7.7) k/uL Lymphocytes # (1.0-4.8) k/uL Retic Count (0.5-2.0) % PT (9.0-12.0) sec INR (<1.2) APTT >200.0 H* (22.0-30.0) sec ABG pCO2 (35-45) mmHg ABG pO2 (83-108) mmHg ABG HCO3 (21-25) mmol/L ABG O2 Saturation (94-97) % ABG Lactic Acid (0.5-1.6) mmol/L Sodium (137-145) mmol/L Potassium (3.5-5.1) mmol/L Carbon Dioxide (22-30) mmol/L Glucose (74-99) mg/dL POC Glucose (mg/dL) (70-110) mg/dL Calcium (8.4-10.2) mg/dL Magnesium (1.6-2.3) mg/dL Alkaline Phosphatase (38-126) U/L Total Protein (6.3-8.2) g/dL Albumin (3.5-5.0) g/dL Procalcitonin (0.02-0.09) ng/mL Assessment and Plan Assessment: 1. Hyponatremia, possibly hypovolemic. Patient did not respond to saline initially however he is currently maintained on sodium chloride tabs and is receiving bicarb with the base of half-normal saline. Sodium has increased to 125 today which is appropriate. 2. Hyperkalemia associated with a hemolyzed sample as well as metabolic acidosis and potassium supplementation. Repeat potassium was not low at believe this could be this could have been an error. 3. History of acute kidney injury during last hospitalization with the requirement of 1 - 2 treatments of hemodialysis. Renal function recovered with serum creatinine now at about 1.0 mg/dL 4. Metabolic acidosis non-gap, maintained on bicarb drip. 5. Right lower extremity DVT 6. Nausea and significant weight loss 7. Hypotension and shock most likely sepsis. Source not identified yet. Antibiotics have been changed. 8. Hypokalemia status post replacement 9. Mild hypocalcemia. Corrected calcium was 8.4 as albumin is 1.7 g/dL. Plan: Continue current bicarb drip Repeat sodium Replace potassium Repeat labs in a.m. Check vitamin D levels
[2022-01-06 12:55] LABS: Potassium 3.4 mmol/L (3.5-5.1); Sodium 128 mmol/L (137-145)
[2022-01-06] MEDS: POTASSIUM CHLORIDE ER 10 MEQ TAB.ER.PRT PO STA ×2 (14:24→14:39)
--- NOTE | 2022-01-06 14:27 | P.PN ---
Subjective Progress Note Date: 01/06/22 CHIEF COMPLAINT: Dehydration and failure to thrive HISTORY OF PRESENT ILLNESS: Patient required transfer to ICU last night because of hypotension. Patient is on Levophed and vasopressin. Also on bicarb drip. He still has a low urine output. He had multiple bowel movements and his Reglan was discontinued. His stool for C. diff is negative. Patient followed by critical care service. They have reported the patient is not stable to proceed with PEG tube today. PEG tube placement has been canceled. Patient's ileus has resolved. Afebrile. Tachycardic. Hypotensive. WBC 8.9 Hgb 9.1 potassium 3.4 sodium 128 Patient seen and examined with Dr. whitaker PHYSICAL EXAM: VITAL SIGNS: Reviewed. GENERAL: Well-developed in no acute distress. HEENT: No sclera icterus. Extraocular movements grossly intact. Moist buccal mucosa. Head is atraumatic, normocephalic. ABDOMEN: Soft. Nondistended. Nontender. Patient does have compression dressing right lower abdomen where he is bleeding from Lovenox injection NEUROLOGIC: Alert and oriented. Cranial nerves II through XII grossly intact. ASSESSMENT: 1. Abdominal ileus improved 2. Nausea 3. Hyponatremia 4. Hypokalemia 5. Severe Protein calorie malnutrition 6. Acute DVT right leg 7. Chronic decubitus ulcer 8. Fluid collection in the hepatic parenchyma adjacent to the gallbladder fossa. No abdominal pain 9. Hypotension PLAN: -PEG tube placement on hold until patient is medically cleared -Resume clear liquids -Continue to correct electrolyte abnormality -Continue ICU management -Continue supportive care Physician Oxygen Plant Operator note has been reviewed by physician. Signing provider agrees with the documented findings, assessment, and plan of care. Objective - Vital Signs Vital signs: Vital Signs Temp 97.6 F 01/06/22 12:00 Pulse 126 H 01/06/22 14:00 Resp 22 01/06/22 14:00 BP 115/74 01/06/22 14:00 Pulse Ox 98 01/06/22 14:00 FiO2 28 01/02/22 16:04 Intake & Output 01/05/22 01/06/22 01/06/22 18:59 06:59 18:59 Intake Total 310 6133.579 3649.775 Output Total 235 87 Balance 310 5898.579 3562.775 Weight 106 kg Intake: IV 10 5750 3060 0.9 NACL 220 160 0.9 bolus 1500 2000 Invasive Line 2 10 30 Sodium Chloride 0.45% 1, 1650 900 000 ml @ 100 mls/hr IV . [id number] [facility] with Sodium Bicarb (1 Meq/ml) 150 ml Rx#:[id number] Sodium Chloride 0.9% 2, 2000 000 ml @ 999 mls/hr IV . Q2H1M ONE Rx#:[id number] vancomycin 250 zosyn 100 Intake, IV Titration 383.579 339.775 Amount Heparin Sod,Pork in 0.45% 125.579 26.002 NaCl 25,000 unit In 0.45 % NaCl 1 250ml.bag @ 18 UNITS/KG/HR 15.758 mls/hr IV .[id number] [facility] Rx#: [id number] Norepinephrine 32 mg In 113.773 Sodium Chloride 0.9% 218 ml @ 0.5 MCG/KG/MIN 20. 518 mls/hr IV .[id number] [facility] Rx#:[id number] Norepinephrine 8 mg In 258.000 Sodium Chloride 0.9% 250 ml @ 0.05 MCG/KG/MIN 8.47 mls/hr IV .Q24H [facility] Rx#: [id number] Sodium Chloride 0.45% 1, 200 000 ml @ 100 mls/hr IV . [id number] [facility] with Sodium Bicarb (1 Meq/ml) 150 ml Rx#:[id number] Oral 300 250 Output: Urine 235 87 Other: Voiding Method Urinal Indwelling Catheter Indwelling Catheter # Bowel Movements 1 2 ABP, PAP, CO, CI - Last Documented Arterial Blood Pressure 98/65 - Labs CBC & Chem 7: 01/06/22 04:00 01/06/22 12:02 Labs: Abnormal Lab Results - Last 24 Hours (Table) 01/05/22 01/05/22 01/05/22 Range/Units 09:01 18:30 18:30 RBC 3.27 L (4.30-5.90) m/uL Hgb 9.1 L (13.0-17.5) gm/dL Hct 27.3 L (39.0-53.0) % RDW 18.0 H (11.5-15.5) % Neutrophils # (1.3-7.7) k/uL Lymphocytes # (1.0-4.8) k/uL Retic Count 0.3 L (0.5-2.0) % PT 14.1 H (9.0-12.0) sec INR 1.4 H (<1.2) APTT 47.2 H (22.0-30.0) sec ABG pCO2 (35-45) mmHg ABG pO2 (83-108) mmHg ABG HCO3 (21-25) mmol/L ABG O2 Saturation (94-97) % ABG Lactic Acid (0.5-1.6) mmol/L Sodium (137-145) mmol/L Potassium (3.5-5.1) mmol/L Carbon Dioxide (22-30) mmol/L Glucose (74-99) mg/dL POC Glucose (mg/dL) (70-110) mg/dL Plasma Lactic Acid Hayden (0.7-2.0) mmol/L Calcium (8.4-10.2) mg/dL Magnesium (1.6-2.3) mg/dL Alkaline Phosphatase (38-126) U/L Total Protein (6.3-8.2) g/dL Albumin (3.5-5.0) g/dL Procalcitonin 0.30 H (0.02-0.09) ng/mL 01/05/22 01/05/22 01/05/22 Range/Units 18:30 18:40 20:50 RBC (4.30-5.90) m/uL Hgb (13.0-17.5) gm/dL Hct (39.0-53.0) % RDW (11.5-15.5) % Neutrophils # (1.3-7.7) k/uL Lymphocytes # (1.0-4.8) k/uL Retic Count (0.5-2.0) % PT (9.0-12.0) sec INR (<1.2) APTT (22.0-30.0) sec ABG pCO2 27 L (35-45) mmHg ABG pO2 120 H (83-108) mmHg ABG HCO3 19 L (21-25) mmol/L ABG O2 Saturation 99.1 H (94-97) % ABG Lactic Acid (0.5-1.6) mmol/L Sodium 122 L (137-145) mmol/L Potassium 3.1 L (3.5-5.1) mmol/L Carbon Dioxide 17 L (22-30) mmol/L Glucose 151 H (74-99) mg/dL POC Glucose (mg/dL) (70-110) mg/dL Plasma Lactic Acid Hayden (0.7-2.0) mmol/L Calcium 6.4 L* (8.4-10.2) mg/dL Magnesium (1.6-2.3) mg/dL Alkaline Phosphatase (38-126) U/L Total Protein (6.3-8.2) g/dL Albumin (3.5-5.0) g/dL Procalcitonin 0.33 H (0.02-0.09) ng/mL 01/05/22 01/05/22 01/06/22 Range/Units 23:08 23:10 04:00 RBC 3.23 L (4.30-5.90) m/uL Hgb 9.1 L (13.0-17.5) gm/dL Hct 27.1 L (39.0-53.0) % RDW 17.9 H (11.5-15.5) % Neutrophils # 7.8 H (1.3-7.7) k/uL Lymphocytes # 0.8 L (1.0-4.8) k/uL Retic Count (0.5-2.0) % PT (9.0-12.0) sec INR (<1.2) APTT 185.7 H* (22.0-30.0) sec ABG pCO2 (35-45) mmHg ABG pO2 (83-108) mmHg ABG HCO3 (21-25) mmol/L ABG O2 Saturation (94-97) % ABG Lactic Acid (0.5-1.6) mmol/L Sodium (137-145) mmol/L Potassium (3.5-5.1) mmol/L Carbon Dioxide (22-30) mmol/L Glucose (74-99) mg/dL POC Glucose (mg/dL) 185 H (70-110) mg/dL Plasma Lactic Acid Hayden (0.7-2.0) mmol/L Calcium (8.4-10.2) mg/dL Magnesium (1.6-2.3) mg/dL Alkaline Phosphatase (38-126) U/L Total Protein (6.3-8.2) g/dL Albumin (3.5-5.0) g/dL Procalcitonin (0.02-0.09) ng/mL 01/06/22 01/06/22 01/06/22 Range/Units 04:00 04:00 05:27 RBC (4.30-5.90) m/uL Hgb (13.0-17.5) gm/dL Hct (39.0-53.0) % RDW (11.5-15.5) % Neutrophils # (1.3-7.7) k/uL Lymphocytes # (1.0-4.8) k/uL Retic Count (0.5-2.0) % PT 15.7 H (9.0-12.0) sec INR 1.5 H (<1.2) APTT (22.0-30.0) sec ABG pCO2 (35-45) mmHg ABG pO2 (83-108) mmHg ABG HCO3 (21-25) mmol/L ABG O2 Saturation (94-97) % ABG Lactic Acid 2.1 H (0.5-1.6) mmol/L Sodium 125 L (137-145) mmol/L Potassium 3.3 L (3.5-5.1) mmol/L Carbon Dioxide 17 L (22-30) mmol/L Glucose 158 H (74-99) mg/dL POC Glucose (mg/dL) (70-110) mg/dL Plasma Lactic Acid Hayden (0.7-2.0) mmol/L Calcium 6.6 L (8.4-10.2) mg/dL Magnesium 1.5 L (1.6-2.3) mg/dL Alkaline Phosphatase 179 H (38-126) U/L Total Protein 4.0 L (6.3-8.2) g/dL Albumin 1.7 L (3.5-5.0) g/dL Procalcitonin (0.02-0.09) ng/mL 01/06/22 01/06/22 01/06/22 Range/Units 05:50 12:02 12:02 RBC (4.30-5.90) m/uL Hgb (13.0-17.5) gm/dL Hct (39.0-53.0) % RDW (11.5-15.5) % Neutrophils # (1.3-7.7) k/uL Lymphocytes # (1.0-4.8) k/uL Retic Count (0.5-2.0) % PT (9.0-12.0) sec INR (<1.2) APTT >200.0 H* (22.0-30.0) sec ABG pCO2 (35-45) mmHg ABG pO2 (83-108) mmHg ABG HCO3 (21-25) mmol/L ABG O2 Saturation (94-97) % ABG Lactic Acid (0.5-1.6) mmol/L Sodium 128 L (137-145) mmol/L Potassium 3.4 L (3.5-5.1) mmol/L Carbon Dioxide (22-30) mmol/L Glucose (74-99) mg/dL POC Glucose (mg/dL) (70-110) mg/dL Plasma Lactic Acid Hayden 4.4 H* (0.7-2.0) mmol/L Calcium (8.4-10.2) mg/dL Magnesium (1.6-2.3) mg/dL Alkaline Phosphatase (38-126) U/L Total Protein (6.3-8.2) g/dL Albumin (3.5-5.0) g/dL Procalcitonin (0.02-0.09) ng/mL 01/06/22 Range/Units 12:02 RBC (4.30-5.90) m/uL Hgb (13.0-17.5) gm/dL Hct (39.0-53.0) % RDW (11.5-15.5) % Neutrophils # (1.3-7.7) k/uL Lymphocytes # (1.0-4.8) k/uL Retic Count (0.5-2.0) % PT (9.0-12.0) sec INR (<1.2) APTT 196.7 H* (22.0-30.0) sec ABG pCO2 (35-45) mmHg ABG pO2 (83-108) mmHg ABG HCO3 (21-25) mmol/L ABG O2 Saturation (94-97) % ABG Lactic Acid (0.5-1.6) mmol/L Sodium (137-145) mmol/L Potassium (3.5-5.1) mmol/L Carbon Dioxide (22-30) mmol/L Glucose (74-99) mg/dL POC Glucose (mg/dL) (70-110) mg/dL Plasma Lactic Acid Hayden (0.7-2.0) mmol/L Calcium (8.4-10.2) mg/dL Magnesium (1.6-2.3) mg/dL Alkaline Phosphatase (38-126) U/L Total Protein (6.3-8.2) g/dL Albumin (3.5-5.0) g/dL Procalcitonin (0.02-0.09) ng/mL
[2022-01-06] MEDS ORDERED: POTASSIUM CHLORIDE 10 MEQ in WATER FOR INJECTION 1 100ML.BAG IVPB ONE (14:33)
[2022-01-06] MEDS ORDERED: CEFEPIME 2 GM in SODIUM CHLORIDE 0.9% 100 ML IVPB SCH (16:00)
[2022-01-06 16:41] LABS: ABG Base Excess -11.2 mmol/L; ABG HCO3 13 mmol/L (21-25); ABG Oxygen Saturation 99.3 % (94-97); ABG PCO2 20 mmHg (35-45); ABG PH 7.42 (7.35-7.45); ABG PO2 142 mmHg (83-108); ABG TCO2 14 mmol/L (19-24)
[2022-01-06 16:43] LABS: Allen Test Performed? no
--- NOTE | 2022-01-06 17:03 | P.PN ---
Subjective Progress Note Date: 01/06/22 Principal diagnosis: DVT, bleeding after lovenox Pt is not arousing today, mother and brother at bedside Objective - Vital Signs Vital signs: Vital Signs Temp 97.5 F L 01/06/22 16:00 Pulse 133 H 01/06/22 16:15 Resp 23 01/06/22 16:15 BP 109/96 01/06/22 16:15 Pulse Ox 98 01/06/22 16:15 FiO2 28 01/02/22 16:04 Intake & Output 01/05/22 01/06/22 01/06/22 18:59 06:59 18:59 Intake Total 310 6133.579 4147.669 Output Total 235 127 Balance 310 5898.579 4020.669 Weight 106 kg Intake: IV 10 5750 3200 0.9 NACL 220 200 0.9 bolus 1500 2000 Invasive Line 2 10 30 Sodium Chloride 0.45% 1, 1650 900 000 ml @ 100 mls/hr IV . [id number] [facility] with Sodium Bicarb (1 Meq/ml) 150 ml Rx#:[id number] Sodium Chloride 0.9% 2, 2000 000 ml @ 999 mls/hr IV . Q2H1M ONE Rx#:[id number] vancomycin 250 zosyn 100 100 Intake, IV Titration 383.579 697.669 Amount Heparin Sod,Pork in 0.45% 125.579 26.002 NaCl 25,000 unit In 0.45 % NaCl 1 250ml.bag @ 18 UNITS/KG/HR 15.758 mls/hr IV .[id number] [facility] Rx#: [id number] Norepinephrine 32 mg In 171.667 Sodium Chloride 0.9% 218 ml @ 0.5 MCG/KG/MIN 20. 518 mls/hr IV .[id number] [facility] Rx#:[id number] Norepinephrine 8 mg In 258.000 Sodium Chloride 0.9% 250 ml @ 0.05 MCG/KG/MIN 8.47 mls/hr IV .Q24H [facility] Rx#: [id number] Potassium Chloride 10 meq 100 In Water For Injection 1 100ml.bag @ 100 mls/hr IVPB ONCE ONE Rx#: [id number] Sodium Chloride 0.45% 1, 400 000 ml @ 100 mls/hr IV . [id number] [facility] with Sodium Bicarb (1 Meq/ml) 150 ml Rx#:[id number] Oral 300 250 Output: Urine 235 127 Other: Voiding Method Urinal Indwelling Catheter Indwelling Catheter # Bowel Movements 1 2 ABP, PAP, CO, CI - Last Documented Arterial Blood Pressure 104/59 - Constitutional General appearance: Present: mild distress, obese - EENT Eyes: Present: anicteric sclerae - Respiratory Respiratory: bilateral: diminished - Cardiovascular Details: tachy Abnormal Heart Sounds: Present: systolic murmur - Gastrointestinal General gastrointestinal: Present: normal bowel sounds, soft - Musculoskeletal Musculoskeletal: Absent: gait normal, generalized weakness, strength equal bilaterally, right sided weakness, left sided weakness - Psychiatric Psychiatric: Absent: A&O x's 3, appropriate affect, intact judgment & insight - Labs CBC & Chem 7: 01/06/22 04:00 01/06/22 12:02 Labs: Abnormal Lab Results - Last 24 Hours (Table) 01/05/22 01/05/22 01/05/22 Range/Units 18:30 18:30 18:30 RBC 3.27 L (4.30-5.90) m/uL Hgb 9.1 L (13.0-17.5) gm/dL Hct 27.3 L (39.0-53.0) % RDW 18.0 H (11.5-15.5) % Neutrophils # (1.3-7.7) k/uL Lymphocytes # (1.0-4.8) k/uL Retic Count 0.3 L (0.5-2.0) % PT 14.1 H (9.0-12.0) sec INR 1.4 H (<1.2) APTT 47.2 H (22.0-30.0) sec ABG pCO2 (35-45) mmHg ABG pO2 (83-108) mmHg ABG HCO3 (21-25) mmol/L ABG Total CO2 (19-24) mmol/L ABG O2 Saturation (94-97) % ABG Lactic Acid (0.5-1.6) mmol/L Sodium (137-145) mmol/L Potassium (3.5-5.1) mmol/L Carbon Dioxide (22-30) mmol/L Glucose (74-99) mg/dL POC Glucose (mg/dL) (70-110) mg/dL Plasma Lactic Acid Hayden (0.7-2.0) mmol/L Calcium (8.4-10.2) mg/dL Magnesium (1.6-2.3) mg/dL Alkaline Phosphatase (38-126) U/L Total Protein (6.3-8.2) g/dL Albumin (3.5-5.0) g/dL Procalcitonin 0.33 H (0.02-0.09) ng/mL 01/05/22 01/05/22 01/05/22 Range/Units 18:40 20:50 23:08 RBC (4.30-5.90) m/uL Hgb (13.0-17.5) gm/dL Hct (39.0-53.0) % RDW (11.5-15.5) % Neutrophils # (1.3-7.7) k/uL Lymphocytes # (1.0-4.8) k/uL Retic Count (0.5-2.0) % PT (9.0-12.0) sec INR (<1.2) APTT (22.0-30.0) sec ABG pCO2 27 L (35-45) mmHg ABG pO2 120 H (83-108) mmHg ABG HCO3 19 L (21-25) mmol/L ABG Total CO2 (19-24) mmol/L ABG O2 Saturation 99.1 H (94-97) % ABG Lactic Acid (0.5-1.6) mmol/L Sodium 122 L (137-145) mmol/L Potassium 3.1 L (3.5-5.1) mmol/L Carbon Dioxide 17 L (22-30) mmol/L Glucose 151 H (74-99) mg/dL POC Glucose (mg/dL) 185 H (70-110) mg/dL Plasma Lactic Acid Hayden (0.7-2.0) mmol/L Calcium 6.4 L* (8.4-10.2) mg/dL Magnesium (1.6-2.3) mg/dL Alkaline Phosphatase (38-126) U/L Total Protein (6.3-8.2) g/dL Albumin (3.5-5.0) g/dL Procalcitonin (0.02-0.09) ng/mL 01/05/22 01/06/22 01/06/22 Range/Units 23:10 04:00 04:00 RBC 3.23 L (4.30-5.90) m/uL Hgb 9.1 L (13.0-17.5) gm/dL Hct 27.1 L (39.0-53.0) % RDW 17.9 H (11.5-15.5) % Neutrophils # 7.8 H (1.3-7.7) k/uL Lymphocytes # 0.8 L (1.0-4.8) k/uL Retic Count (0.5-2.0) % PT 15.7 H (9.0-12.0) sec INR 1.5 H (<1.2) APTT 185.7 H* (22.0-30.0) sec ABG pCO2 (35-45) mmHg ABG pO2 (83-108) mmHg ABG HCO3 (21-25) mmol/L ABG Total CO2 (19-24) mmol/L ABG O2 Saturation (94-97) % ABG Lactic Acid (0.5-1.6) mmol/L Sodium (137-145) mmol/L Potassium (3.5-5.1) mmol/L Carbon Dioxide (22-30) mmol/L Glucose (74-99) mg/dL POC Glucose (mg/dL) (70-110) mg/dL Plasma Lactic Acid Hayden (0.7-2.0) mmol/L Calcium (8.4-10.2) mg/dL Magnesium (1.6-2.3) mg/dL Alkaline Phosphatase (38-126) U/L Total Protein (6.3-8.2) g/dL Albumin (3.5-5.0) g/dL Procalcitonin (0.02-0.09) ng/mL 01/06/22 01/06/22 01/06/22 Range/Units 04:00 05:27 05:50 RBC (4.30-5.90) m/uL Hgb (13.0-17.5) gm/dL Hct (39.0-53.0) % RDW (11.5-15.5) % Neutrophils # (1.3-7.7) k/uL Lymphocytes # (1.0-4.8) k/uL Retic Count (0.5-2.0) % PT (9.0-12.0) sec INR (<1.2) APTT >200.0 H* (22.0-30.0) sec ABG pCO2 (35-45) mmHg ABG pO2 (83-108) mmHg ABG HCO3 (21-25) mmol/L ABG Total CO2 (19-24) mmol/L ABG O2 Saturation (94-97) % ABG Lactic Acid 2.1 H (0.5-1.6) mmol/L Sodium 125 L (137-145) mmol/L Potassium 3.3 L (3.5-5.1) mmol/L Carbon Dioxide 17 L (22-30) mmol/L Glucose 158 H (74-99) mg/dL POC Glucose (mg/dL) (70-110) mg/dL Plasma Lactic Acid Hayden (0.7-2.0) mmol/L Calcium 6.6 L (8.4-10.2) mg/dL Magnesium 1.5 L (1.6-2.3) mg/dL Alkaline Phosphatase 179 H (38-126) U/L Total Protein 4.0 L (6.3-8.2) g/dL Albumin 1.7 L (3.5-5.0) g/dL Procalcitonin (0.02-0.09) ng/mL 01/06/22 01/06/22 01/06/22 Range/Units 12:02 12:02 12:02 RBC (4.30-5.90) m/uL Hgb (13.0-17.5) gm/dL Hct (39.0-53.0) % RDW (11.5-15.5) % Neutrophils # (1.3-7.7) k/uL Lymphocytes # (1.0-4.8) k/uL Retic Count (0.5-2.0) % PT (9.0-12.0) sec INR (<1.2) APTT 196.7 H* (22.0-30.0) sec ABG pCO2 (35-45) mmHg ABG pO2 (83-108) mmHg ABG HCO3 (21-25) mmol/L ABG Total CO2 (19-24) mmol/L ABG O2 Saturation (94-97) % ABG Lactic Acid (0.5-1.6) mmol/L Sodium 128 L (137-145) mmol/L Potassium 3.4 L (3.5-5.1) mmol/L Carbon Dioxide (22-30) mmol/L Glucose (74-99) mg/dL POC Glucose (mg/dL) (70-110) mg/dL Plasma Lactic Acid Hayden 4.4 H* (0.7-2.0) mmol/L Calcium (8.4-10.2) mg/dL Magnesium (1.6-2.3) mg/dL Alkaline Phosphatase (38-126) U/L Total Protein (6.3-8.2) g/dL Albumin (3.5-5.0) g/dL Procalcitonin (0.02-0.09) ng/mL 01/06/22 Range/Units 16:38 RBC (4.30-5.90) m/uL Hgb (13.0-17.5) gm/dL Hct (39.0-53.0) % RDW (11.5-15.5) % Neutrophils # (1.3-7.7) k/uL Lymphocytes # (1.0-4.8) k/uL Retic Count (0.5-2.0) % PT (9.0-12.0) sec INR (<1.2) APTT (22.0-30.0) sec ABG pCO2 20 L (35-45) mmHg ABG pO2 142 H (83-108) mmHg ABG HCO3 13 L (21-25) mmol/L ABG Total CO2 14 L (19-24) mmol/L ABG O2 Saturation 99.3 H (94-97) % ABG Lactic Acid (0.5-1.6) mmol/L Sodium (137-145) mmol/L Potassium (3.5-5.1) mmol/L Carbon Dioxide (22-30) mmol/L Glucose (74-99) mg/dL POC Glucose (mg/dL) (70-110) mg/dL Plasma Lactic Acid Hayden (0.7-2.0) mmol/L Calcium (8.4-10.2) mg/dL Magnesium (1.6-2.3) mg/dL Alkaline Phosphatase (38-126) U/L Total Protein (6.3-8.2) g/dL Albumin (3.5-5.0) g/dL Procalcitonin (0.02-0.09) ng/mL Assessment and Plan (1) DVT (deep venous thrombosis) Current Visit: Yes Status: Acute Priority: High Code(s): I82.409 - ACUTE EMBOLISM AND THOMBOS UNSP DEEP VN UNSP LOWER EXTREMITY SNOMED Code(s): 52689 3003 (2) Anemia Current Visit: Yes Status: Chronic Priority: High Code(s): D64.9 - ANEMIA, UNSPECIFIED SNOMED Code(s): 712341865 Plan: No bleeding reported. No oozing around lines. Hgb cont to be stable without precipitous drops. Nursing reports elevated PTT, adjustments are taking longer then normal to show up in the PTT. Cont to adjust heparin drip per protocol. Cont to monitor pt closely for bleeding, labs daily. If any evidence of bleeding then anticoagulation will be contraindicated and IVC filter will be recommended. Anemia work up most consistent with inflammation. No evidence of hemolysis factor Xa activity ordered to rule out concerns for issues with metabolism of lovenox leading to bleedin/oozing.
[2022-01-06 17:46] LABS: Albumin 1.7 g/dL (3.5-5.0); Potassium 3.6 mmol/L (3.5-5.1); Total Bilirubin 0.5 mg/dL (0.2-1.3)
[2022-01-06 17:49] LABS: Calcium 6.4 mg/dL (8.4-10.2)
[2022-01-06 17:57] LABS: Anisocytosis Slight; Basophils % (A) 0 %; Eosinophils % (A) 0 %; HCT 29.2 % (39.0-53.0); HGB 9.5 gm/dL (13.0-17.5); Hypochromasia Slight; Lymphocytes # (A) 0.5 k/uL (1.0-4.8); Lymphocytes % (A) 6 %; MCH 27.6 pg (25.0-35.0); MCHC 32.4 g/dL (31.0-37.0); Monocytes # (A) 0.2 k/uL (0-1.0); Monocytes % (A) 2 %; Neutrophils # (A) 6.7 k/uL (1.3-7.7); Neutrophils % (A) 91 %; Platelet Count 352 k/uL (150-450); RBC 3.43 m/uL (4.30-5.90); RDW 18.4 % (11.5-15.5); WBC 7.3 k/uL (3.8-10.6)
[2022-01-06] MEDS: HYDROCORTISONE SUCCINATE 100 MG/2 ML VIAL IV SCH (19:00)
[2022-01-06] MEDS: MAGNESIUM SULFATE-D5W PMX 1 GM in DEXTROSE/WATER 1 100ML.BAG IVPB SCH ×2 (20:35→21:48)
--- NOTE | 2022-01-06 22:19 | P.PN ---
Subjective this is a pleasant 61 yo M with past medical history of COPD, Diabetes Mellitus, Deep Vein Thrombosis, Hyperlipidemia, Hypertension, Sleep Apnea/CPAP/BIPAP He was in the hospital on 09/2021 for severe hypertension from decreased oral intake, acute metabolic encephalopathy, chronic congestive heart failure, diastolic with ejection fraction 55-60%, acute kidney injury, sinus tachycardia, status post cholecystectomy for his gangrenous cholecystitis, restless leg syndrome, BPH, chronic medical debility i talkled to the pt and at bed side , [facility] , [facility]. At that time she was in the hospital for acute hypoxic respiratory failure of unknown causes. He needed intubation at that time. He had complete opacification in the left hemithorax he had 2 bronchoscopy done which was negative for microbial growth. He has another admission on 09/2021. Patient and states that he came here because he wanted to get the PEG tube because he was not eating anything since June and he lost a lot of weight he used to weigh 333 pounds and now 193. He states that his main issue is no appetite, he denies choking but he has sometimes nausea that prevent him from eating. Is also short of breath with cough and clear yellow phlegm but no chest pain, no abdominal pain. He has loose bowel movement once or twice a week. Also he has unstageable pressure decubitus ulcer status post debridement, he has wound VAC in place. Patient also complaining of from chronic left leg pain and tenderness, he would not allow someone to drop his leg because it hurts a lot. Inspection looks normal, no trauma. Also was complaining from weakness in both lower extremities since June Patient is tachycardic around 110, on admission heart rate was 125 afebrile. His lab reviewed including CBC showed mild anemia of 11.9, rest of CBC is unremarkable. INR is unremarkable at 1.1. Sodium was low at 123. Creatinine normal 0.8. Glucose was low at 66. Chest x-ray: No acute process. 01/02/2022 Last night patient was started on therapeutic dose Lovenox for acute right leg DVT, CT angiography chest and echo could not be done because have no IV access, patient was transferred to a small IV access was obtained in the right upper arm, not good enough for CT of the chest test or aggressive treatment. However IV fluids could be provided. Blood pressure is improved up to 110/68, however patient still tachycardic. Patient could not eat because of severe nausea and vomiting, H time he put something in his monthly follow-up as per bedside nurse, KUB showing some evidence of ileus, surgical team consult obtained. Social evaluation under direct consults are pending. 01/03/2022 Patient awake alert, looks more comfortable than the first taken to the hospital, less tachypneic, he denies any chest pain or abdominal pain. He tried to take small bites of mashed potato yesterday and he could not consume it and he immediately felt to throw up. CT of the chest is negative for PE, he remains on Lovenox for acute right DVT. CT of the abdomen is suspicious for a complex collection possible abscess although it's the size 5 cm diameter 2.7 cm, recommended ultrasound versus MRI, were going to order a liver ultrasound although it is of less sensitivity especially with this patient large body habitus however it is less invasive than MRI. Also flowcalcitonin is the slightly elevated. He is slightly tachycardic although is better than before. Blood pressure 93/63. Today sodium dropped 127 down to 122 because of this we held his IV fluids and reordered anemia workup in the urine and the serum, we will monitor his sodium level tomorrow if no improvement and may consider further workup. Surgical team consult is called, the plan for PEG tube placement on . Patient originally came to the hospital the PEG tube placement. Patient is not consuming his oral medication but we stopped his gabapentin and ropinirole. 01/04/2022 Kirsten Bach feels better today, he does not feel dizziness while he is lying in bed all the time. He still have low appetite but no chest pain or dyspnea, no abdominal pain. He still complaining from pain in his legs and he has right leg DVT been on Lovenox with plan to switch him to heparin drip on today as he got midline Blood pressure is 87/56, heart rate 120, sodium is 121 On admission his sodium was still low and was started on D5 normal saline at 100 mL/h however after initial improvement sodium dropped to 121 yesterday so we held his IV fluid and the evening sodium improved 124 (no iv lasix given), however this morning is 121 again. We send urine studies and I'll consult food sampler. Also patient has negative CTPA for pulmonary embolism but CT of the abdomen and pelvis showing possible gallbladder fossa abscess or complex fluid collection although it is improved from previous 5 cm down to 2.7 centimeters. The recommended liver ultrasound versus MRI, ultrasound shows the same findings. Also surgery due on the case 01/05/2022 Last night his blood pressure dropped with systolic and 50s, there was a rapid response a team response and he was as stated with IV fluids aggressively, his blood pressure improved in 90s this morning and during the round he was awake and alert looks tired but is appropriate. Sodium was 121 and then 119. He denied any chest pain or abdominal pain, no other complaints clinically. His losing from his puncture wound in the right lower abdomen was a stopped, he was started on heparin drip per recommendation of engine head repairer. After once by the evening time his blood pressure dropped again was 53/32 with altered mental status, there was another rapid response where patient was transferred to the ICU and levophed was started and his mentation started to improve again. Patient was started also on antibiotic empirically with Zosyn and IV vancomycin total infection ruled out completely as there is still high suspicion, with possible sources including the pressure wound sacral ulcer in the lower back, and less likely the gallbladder bed and fossa with 2.7 cm fluid collection (felt less likely because actually it decreased in size from 5.0 cm previously) After transfer patient and at bedside opted for the DO NOT RESUSCITATE order as per bedside nurse. Review of systems CONSTITUTIONAL: No fever, no malaise, no fatigue. HEENT: No recent visual problems or hearing problems. Denied any sore throat. CARDIOVASCULAR: No orthopnea, PND, no palpitations, no syncope. PULMONARY: No shortness of breath, no cough, no hemoptysis. NEUROLOGICAL: No headaches, no weakness, no numbness. HEMATOLOGICAL: Denies any bleeding or petechiae. Active Medications Generic Name Dose Route Start Last Admin Trade Name Freq PRN Reason Stop Dose Admin Hydrocodone Bitart/Acetaminophen 1 each 12/31/21 20:41 Hydrocodone/Apap 5-325mg 1 Each Tab PO Q6HR PRN Pain Albuterol Sulfate 2.5 mg 12/31/21 20:41 12/31/21 21:36 Albuterol Nebulized 2.5 Mg/3 Ml INHALATION 2.5 mg Q2H PRN Administration [employer]Y Albuterol/Ipratropium 3 ml 01/01/22 08:00 01/06/22 20:48 Ipratropium-Albuterol 3 Ml Neb INHALATION Not Given RT-QID ERINN Ascorbic Acid 1,000 mg 01/01/22 08:00 01/06/22 08:49 Ascorbic Acid 500 Mg Tab PO 1,000 mg DAILY@0800 ERINN Administration Cholecalciferol 25 mcg 01/01/22 09:00 01/06/22 08:50 Cholecalciferol 25 Mcg (1000 Iu) Tablet PO 25 mcg DAILY ERINN Administration Dronabinol 5 mg 01/01/22 12:00 01/06/22 17:21 Dronabinol 2.5 Mg Cap PO Not Given BID@1200,1700 ERINN Folic Acid 1 mg 01/01/22 09:00 01/06/22 08:50 Folic Acid 1 Mg Tab PO 1 mg DAILY ERINN Administration Heparin Sodium (Porcine) 0 unit 01/05/22 19:28 Heparin Sodium 1,000 Un/Ml (10ml Vl) IV PER PROTOCOL PRN Low PTT Protocol Hydrocortisone Sodium Succinate 100 mg 01/06/22 18:45 01/06/22 19:00 Hydrocortisone Succinate 100 Mg/2 Ml Vial IV 100 mg Q8HR ERINN Administration Hydromorphone HCl 0.5 mg 12/31/21 20:44 Hydromorphone 0.5 Mg/0.5 Ml Syringe IVP Q4HR PRN Pain Vancomycin HCl 1,500 mg/ 250 mls @ 125 mls/hr 01/05/22 19:00 01/06/22 20:13 Sodium Chloride IVPB 125 mls/hr Q12H ERINN Administration Heparin Sodium/Sodium Chloride 250 mls @ 15.758 mls/hr 01/05/22 19:30 01/06/22 20:01 25,000 unit/ Sodium Chloride IV 0 units/kg/hr .[id number] ERINN 0 mls/hr Titration Protocol 18 UNITS/KG/HR Sodium Bicarbonate 150 ml/ 1,150 mls @ 100 mls/hr 01/05/22 20:30 01/06/22 12:13 Sodium Chloride IV 150 mls/hr .[id number] ERINN Administration Norepinephrine Bitartrate 32 250 mls @ 20.518 mls/hr 01/05/22 23:15 01/06/22 17:51 mg/ Sodium Chloride IV 0.6 mcg/kg/min .[id number] ERINN 24.621 mls/hr Titration Protocol 0.5 MCG/KG/MIN Vasopressin 60 unit/ Sodium 153 mls @ 4.59 mls/hr 01/05/22 23:45 01/06/22 00:12 Chloride IV 0.03 units/min .Q24H ERINN 4.59 mls/hr Administration Protocol 0.03 UNITS/MIN Lactated Ringer's 1,000 mls @ 20 mls/hr 01/06/22 01:32 01/06/22 08:48 Lactated Ringers IV 20 mls/hr .Q24H ERINN Administration Piperacillin Sod/Tazobactam 100 mls @ 25 mls/hr 01/06/22 20:00 01/06/22 20:14 Sod 3.375 gm/ Sodium Chloride IVPB 25 mls/hr Q8H ERINN Administration Protocol Lidocaine HCl 0.1 ml 01/06/22 01:32 Lidocaine 1% (10mg/Ml) For Iv Start INTRADERMA PER PROTOCOL PRN IV Start Magnesium Oxide 400 mg 01/02/22 02:00 01/06/22 21:35 Magnesium Oxide 400 Mg Tab PO Not Given TID [facility] Metoclopramide HCl 10 mg 01/03/22 18:00 01/06/22 17:47 Metoclopramide 5 Mg/Ml 2 Ml Vial IVP Not Given Q6HR [facility] Metoprolol Tartrate 50 mg 01/01/22 08:00 01/06/22 16:38 Metoprolol Tartrate 50 Mg Tab PO Not Given BID@0800,1600 [facility] Midodrine 10 mg 01/05/22 12:30 01/06/22 17:21 Midodrine 5 Mg Tab PO Not Given AC-TID [facility] Miscellaneous Information 1 each 01/02/22 06:58 Magnesium Replacement Protocol 1 Each Misc MISCELLANE DAILY PRN Per Protocol Protocol Miscellaneous Information 1 each 01/02/22 07:03 Potassium Replacement Protocol 1 Each Misc MISCELLANE DAILY PRN Per Protocol Protocol Miscellaneous Information 0 each 01/07/22 18:00 Vancomycin Trough Due 1 Each Misc MISCELLANE 01/07/22 18:01 DIRECTED ONE Multivitamins 1 each 01/01/22 09:00 01/06/22 08:51 Multivitamins, Thera 1 Each Tab PO 1 each DAILY ERINN Administration Naloxone HCl 0.2 mg 12/31/21 14:52 Naloxone 0.4 Mg/Ml 1 Ml Vial IV Q2M PRN Opioid Reversal Ondansetron HCl 4 mg 12/31/21 21:23 01/02/22 18:15 Ondansetron 4 Mg/2 Ml Vial IVP 4 mg Q6HR PRN Administration Nausea And Vomiting Pantoprazole Sodium 40 mg 12/31/21 21:00 01/06/22 21:49 Pantoprazole 40 Mg/10 Ml Vial IVP 40 mg BID ERINN Administration Potassium Chloride 20 meq 01/01/22 09:00 01/06/22 08:51 Potassium Chloride Er 20 Meq Tab.Er PO 20 meq DAILY ERINN Administration Potassium Chloride 40 meq 12/31/21 21:00 01/06/22 21:35 Potassium Chloride Er 20 Meq Tab.Er PO Not Given HS ERINN Sodium Chloride 2 gm 01/05/22 21:00 01/06/22 21:35 Sodium Chloride Tab 1 Gm Tab PO Not Given BID ERINN Tamsulosin HCl 0.4 mg 01/01/22 09:00 01/06/22 08:51 Tamsulosin 0.4 Mg Cap.Er.24h PO 0.4 mg DAILY ERINN Administration Objective - Vital Signs Vital signs: Vital Signs Temp 97.6 F 01/06/22 12:00 Pulse 120 H 01/06/22 12:00 Resp 21 01/06/22 12:00 BP 125/100 01/06/22 12:00 Pulse Ox 97 01/06/22 12:00 FiO2 28 01/02/22 16:04 Intake & Output 01/05/22 01/06/22 01/06/22 18:59 06:59 18:59 Intake Total 310 6133.579 1409.775 Output Total 235 42 Balance 310 5898.579 1367.775 Weight 106 kg Intake: IV 10 5750 1020 0.9 NACL 220 120 0.9 bolus 1500 Invasive Line 2 10 30 Sodium Chloride 0.45% 1, 1650 900 000 ml @ 150 mls/hr IV . Q7H40M ERINN with Sodium Bicarb (1 Meq/ml) 150 ml Rx#:[id number] Sodium Chloride 0.9% 2, 2000 000 ml @ 999 mls/hr IV . Q2H1M ONE Rx#:[id number] vancomycin 250 zosyn 100 Intake, IV Titration 383.579 139.775 Amount Heparin Sod,Pork in 0.45% 125.579 26.002 NaCl 25,000 unit In 0.45 % NaCl 1 250ml.bag @ 18 UNITS/KG/HR 15.758 mls/hr IV .[id number] [facility] Rx#: [id number] Norepinephrine 32 mg In 113.773 Sodium Chloride 0.9% 218 ml @ 0.5 MCG/KG/MIN 20. 518 mls/hr IV .[id number] ERINN Rx#:[id number] Norepinephrine 8 mg In 258.000 Sodium Chloride 0.9% 250 ml @ 0.05 MCG/KG/MIN 8.47 mls/hr IV .Q24H [facility] Rx#: [id number] Oral 300 250 Output: Urine 235 42 Other: Voiding Method Urinal Indwelling Catheter Indwelling Catheter # Bowel Movements 1 2 ABP, PAP, CO, CI - Last Documented Arterial Blood Pressure 101/60 - Exam GENERAL: The patient is alert and oriented x3, in no mild acute distress. BMI is 29.3. Patient looks pale and tachycardic HEENT: Pupils are round and equally reacting to light. EOMI. No scleral icterus. No conjunctival pallor. Normocephalic, atraumatic. No pharyngeal erythema. No thyromegaly. CARDIOVASCULAR: S1 and S2 present. No murmurs, rubs, or gallops. Mild tachypnea PULMONARY: Chest is clear to auscultation, no wheezing or crackles. ABDOMEN: Soft, nontender, nondistended, normoactive bowel sounds. No palpable organomegaly. -MUSCULOSKELETAL: No joint swelling or deformity. Unstageable sacral pressure ulcer -EXTREMITIES: No cyanosis, clubbing, or pedal edema. Left leg tenderness -NEUROLOGICAL: Cranial nerves are grossly intact. He has severe chronic bilateral lower extremity weakness (chronic 6 month as per pt), meningeal signs are absent. No sensory abnormality, no numbness or tingling SKIN: No rashes. no petechiae. - Labs CBC & Chem 7: 01/06/22 17:53 01/06/22 16:40 Labs: Abnormal Lab Results - Last 24 Hours (Table) 01/05/22 01/05/22 01/05/22 Range/Units 09:01 18:30 18:30 RBC 3.27 L (4.30-5.90) m/uL Hgb 9.1 L (13.0-17.5) gm/dL Hct 27.3 L (39.0-53.0) % RDW 18.0 H (11.5-15.5) % Neutrophils # (1.3-7.7) k/uL Lymphocytes # (1.0-4.8) k/uL Retic Count 0.3 L (0.5-2.0) % PT 14.1 H (9.0-12.0) sec INR 1.4 H (<1.2) APTT 47.2 H (22.0-30.0) sec ABG pCO2 (35-45) mmHg ABG pO2 (83-108) mmHg ABG HCO3 (21-25) mmol/L ABG O2 Saturation (94-97) % ABG Lactic Acid (0.5-1.6) mmol/L Sodium (137-145) mmol/L Potassium (3.5-5.1) mmol/L Carbon Dioxide (22-30) mmol/L Glucose (74-99) mg/dL POC Glucose (mg/dL) (70-110) mg/dL Plasma Lactic Acid Hayden (0.7-2.0) mmol/L Calcium (8.4-10.2) mg/dL Magnesium (1.6-2.3) mg/dL Alkaline Phosphatase (38-126) U/L Total Protein (6.3-8.2) g/dL Albumin (3.5-5.0) g/dL Procalcitonin 0.30 H (0.02-0.09) ng/mL 01/05/22 01/05/22 01/05/22 Range/Units 18:30 18:40 20:50 RBC (4.30-5.90) m/uL Hgb (13.0-17.5) gm/dL Hct (39.0-53.0) % RDW (11.5-15.5) % Neutrophils # (1.3-7.7) k/uL Lymphocytes # (1.0-4.8) k/uL Retic Count (0.5-2.0) % PT (9.0-12.0) sec INR (<1.2) APTT (22.0-30.0) sec ABG pCO2 27 L (35-45) mmHg ABG pO2 120 H (83-108) mmHg ABG HCO3 19 L (21-25) mmol/L ABG O2 Saturation 99.1 H (94-97) % ABG Lactic Acid (0.5-1.6) mmol/L Sodium 122 L (137-145) mmol/L Potassium 3.1 L (3.5-5.1) mmol/L Carbon Dioxide 17 L (22-30) mmol/L Glucose 151 H (74-99) mg/dL POC Glucose (mg/dL) (70-110) mg/dL Plasma Lactic Acid Hayden (0.7-2.0) mmol/L Calcium 6.4 L* (8.4-10.2) mg/dL Magnesium (1.6-2.3) mg/dL Alkaline Phosphatase (38-126) U/L Total Protein (6.3-8.2) g/dL Albumin (3.5-5.0) g/dL Procalcitonin 0.33 H (0.02-0.09) ng/mL 01/05/22 01/05/22 01/06/22 Range/Units 23:08 23:10 04:00 RBC 3.23 L (4.30-5.90) m/uL Hgb 9.1 L (13.0-17.5) gm/dL Hct 27.1 L (39.0-53.0) % RDW 17.9 H (11.5-15.5) % Neutrophils # 7.8 H (1.3-7.7) k/uL Lymphocytes # 0.8 L (1.0-4.8) k/uL Retic Count (0.5-2.0) % PT (9.0-12.0) sec INR (<1.2) APTT 185.7 H* (22.0-30.0) sec ABG pCO2 (35-45) mmHg ABG pO2 (83-108) mmHg ABG HCO3 (21-25) mmol/L ABG O2 Saturation (94-97) % ABG Lactic Acid (0.5-1.6) mmol/L Sodium (137-145) mmol/L Potassium (3.5-5.1) mmol/L Carbon Dioxide (22-30) mmol/L Glucose (74-99) mg/dL POC Glucose (mg/dL) 185 H (70-110) mg/dL Plasma Lactic Acid Hayden (0.7-2.0) mmol/L Calcium (8.4-10.2) mg/dL Magnesium (1.6-2.3) mg/dL Alkaline Phosphatase (38-126) U/L Total Protein (6.3-8.2) g/dL Albumin (3.5-5.0) g/dL Procalcitonin (0.02-0.09) ng/mL 01/06/22 01/06/22 01/06/22 Range/Units 04:00 04:00 05:27 RBC (4.30-5.90) m/uL Hgb (13.0-17.5) gm/dL Hct (39.0-53.0) % RDW (11.5-15.5) % Neutrophils # (1.3-7.7) k/uL Lymphocytes # (1.0-4.8) k/uL Retic Count (0.5-2.0) % PT 15.7 H (9.0-12.0) sec INR 1.5 H (<1.2) APTT (22.0-30.0) sec ABG pCO2 (35-45) mmHg ABG pO2 (83-108) mmHg ABG HCO3 (21-25) mmol/L ABG O2 Saturation (94-97) % ABG Lactic Acid 2.1 H (0.5-1.6) mmol/L Sodium 125 L (137-145) mmol/L Potassium 3.3 L (3.5-5.1) mmol/L Carbon Dioxide 17 L (22-30) mmol/L Glucose 158 H (74-99) mg/dL POC Glucose (mg/dL) (70-110) mg/dL Plasma Lactic Acid Hayden (0.7-2.0) mmol/L Calcium 6.6 L (8.4-10.2) mg/dL Magnesium 1.5 L (1.6-2.3) mg/dL Alkaline Phosphatase 179 H (38-126) U/L Total Protein 4.0 L (6.3-8.2) g/dL Albumin 1.7 L (3.5-5.0) g/dL Procalcitonin (0.02-0.09) ng/mL 01/06/22 01/06/22 01/06/22 Range/Units 05:50 12:02 12:02 RBC (4.30-5.90) m/uL Hgb (13.0-17.5) gm/dL Hct (39.0-53.0) % RDW (11.5-15.5) % Neutrophils # (1.3-7.7) k/uL Lymphocytes # (1.0-4.8) k/uL Retic Count (0.5-2.0) % PT (9.0-12.0) sec INR (<1.2) APTT >200.0 H* (22.0-30.0) sec ABG pCO2 (35-45) mmHg ABG pO2 (83-108) mmHg ABG HCO3 (21-25) mmol/L ABG O2 Saturation (94-97) % ABG Lactic Acid (0.5-1.6) mmol/L Sodium 128 L (137-145) mmol/L Potassium 3.4 L (3.5-5.1) mmol/L Carbon Dioxide (22-30) mmol/L Glucose (74-99) mg/dL POC Glucose (mg/dL) (70-110) mg/dL Plasma Lactic Acid Hayden 4.4 H* (0.7-2.0) mmol/L Calcium (8.4-10.2) mg/dL Magnesium (1.6-2.3) mg/dL Alkaline Phosphatase (38-126) U/L Total Protein (6.3-8.2) g/dL Albumin (3.5-5.0) g/dL Procalcitonin (0.02-0.09) ng/mL 01/06/22 Range/Units 12:02 RBC (4.30-5.90) m/uL Hgb (13.0-17.5) gm/dL Hct (39.0-53.0) % RDW (11.5-15.5) % Neutrophils # (1.3-7.7) k/uL Lymphocytes # (1.0-4.8) k/uL Retic Count (0.5-2.0) % PT (9.0-12.0) sec INR (<1.2) APTT 196.7 H* (22.0-30.0) sec ABG pCO2 (35-45) mmHg ABG pO2 (83-108) mmHg ABG HCO3 (21-25) mmol/L ABG O2 Saturation (94-97) % ABG Lactic Acid (0.5-1.6) mmol/L Sodium (137-145) mmol/L Potassium (3.5-5.1) mmol/L Carbon Dioxide (22-30) mmol/L Glucose (74-99) mg/dL POC Glucose (mg/dL) (70-110) mg/dL Plasma Lactic Acid Hayden (0.7-2.0) mmol/L Calcium (8.4-10.2) mg/dL Magnesium (1.6-2.3) mg/dL Alkaline Phosphatase (38-126) U/L Total Protein (6.3-8.2) g/dL Albumin (3.5-5.0) g/dL Procalcitonin (0.02-0.09) ng/mL Assessment and Plan Assessment: Severe hypotension and shock state requiring pressors, possible septic shock Complex liver collection adjacent to gallbladder fossa 2.7 cm suspicious for abscess versus other Hyponatremia Persistent nausea and vomiting secondary to ileus, Acute right leg DVT Severe appetite loss associated with Loss of weight and nausea Dehydration and hypovolemia, improving Unstageable chronic decubitus ulcer status post wound VAC placement Anemia of chronic diseases mellitus, With hyperglycemia on admission Hypertension Hyperlipidemia History of COPD Chronic congestive heart failure with ejection fraction 55-60% History of metabolic encephalopathy Sinus tachycardia Status post cholecystectomy Restless leg syndrome BPH Chronic medical debility Plan: This is a pleasant 61 years old male who presents with dehydration, loss of appetite and loss of weight, hyponatremia, bilateral leg pain and other medical problems continue with pressors and ICU management as per inspector aluminum 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 Consult food sampler, monitor sodium level, and workup for hyponatremia Continue with heparin drip Labs and medications are reviewed.. Continue same treatment. Continue with sym ptomatic treatment. Resume home medication. Monitor lytes and vitals. DVT and GI prophylaxis. Further recommendations as per clinical course of the patient DVT prophylaxis Heparin GI Prophylaxis: Ppi Prognosis is guarded and poor
[2022-01-06 23:00] LABS: Albumin 1.6 g/dL (3.5-5.0); Potassium 3.4 mmol/L (3.5-5.1); Total Bilirubin 0.6 mg/dL (0.2-1.3); Total Protein 3.9 g/dL (6.3-8.2)
[2022-01-06 23:12] LABS: Calcium 6.4 mg/dL (8.4-10.2)
[2022-01-06] MEDS ORDERED: CALCIUM GLUCONATE IN NACL 2 GM in SALINE 1 100ML.BAG IVPB ONE (23:20)
[2022-01-07 00:24] LABS: Glucose,Whole Blood 289 mg/dL (70-110)
[2022-01-07] MEDS: INSULIN ASPART (NovoLOG) 100 UNIT/ML VIAL SQ SCH ×5 (00:24→22:24)
[2022-01-07] MEDS: HYDROCORTISONE SUCCINATE 100 MG/2 ML VIAL IV SCH ×3 (00:25→16:14)
[2022-01-07] MEDS: METOCLOPRAMIDE 5 MG/ML 2 ML VIAL IVP SCH ×4 (00:25→18:15)
[2022-01-07] MEDS: POTASSIUM CHLORIDE 20 MEQ in WATER FOR INJECTION 1 100ML.BAG IVPB SCH ×2 (00:59→02:56)
[2022-01-07] MEDS: LACTATED RINGERS 1,000 ML IV SCH (02:51)
[2022-01-07] MEDS: PIPERACILLIN-TAZOBACTAM 3.375 GM in SODIUM CHLORIDE 0.9% 100 ML IVPB SCH ×3 (04:19→22:23)
[2022-01-07 04:43] LABS: INR 1.7 (<1.2); Partial Thromboplastin Time 73.9 sec (22.0-30.0); Prothrombin Time 17.1 sec (9.0-12.0)
[2022-01-07] MEDS: HEPARIN SOD,PORK IN 0.45% NACL 25,000 UNIT in 0.45% NACL 1 250ML.BAG IV SCH (04:57)
[2022-01-07 05:48] LABS: Anisocytosis Slight; Basophils % (A) 0 %; Eosinophils % (A) 0 %; HCT 30.3 % (39.0-53.0); HGB 9.8 gm/dL (13.0-17.5); Lymphocytes # (A) 1.2 k/uL (1.0-4.8); Lymphocytes % (A) 12 %; MCH 26.8 pg (25.0-35.0); MCHC 32.2 g/dL (31.0-37.0); MCV 83.2 fL (80.0-100.0); Mean Platelet Volume 7.7; Monocytes # (A) 0.3 k/uL (0-1.0); Monocytes % (A) 3 %; Neutrophils # (A) 8.7 k/uL (1.3-7.7); Neutrophils % (A) 85 %; Platelet Count 366 k/uL (150-450); RBC 3.64 m/uL (4.30-5.90); RDW 18.5 % (11.5-15.5); WBC 10.2 k/uL (3.8-10.6)
[2022-01-07 05:57] LABS: Albumin 1.8 g/dL (3.5-5.0); Calcium 6.8 mg/dL (8.4-10.2); Potassium 3.7 mmol/L (3.5-5.1); Total Bilirubin 0.7 mg/dL (0.2-1.3); Total Protein 4.2 g/dL (6.3-8.2)
[2022-01-07 06:01] LABS: Magnesium 1.9 mg/dL (1.6-2.3)
[2022-01-07] MEDS: MIDODRINE 5 MG TAB PO SCH ×3 (06:29→17:57)
[2022-01-07 06:30] LABS: Glucose,Whole Blood 231 mg/dL (70-110)
[2022-01-07] MEDS: VANCOMYCIN 1,500 MG in SODIUM CHLORIDE 0.9% 250 ML IVPB SCH (06:40)
[2022-01-07] MEDS: MAGNESIUM SULFATE-D5W PMX 1 GM in DEXTROSE/WATER 1 100ML.BAG IVPB SCH ×2 (06:43→08:36)
[2022-01-07] MEDS: IPRATROPIUM-ALBUTEROL 3 ML NEB INHALATION SCH ×4 (07:12→19:06)
[2022-01-07] MEDS ORDERED: FUROSEMIDE 10 MG/ML 10 ML VIAL IV STA (08:33)
[2022-01-07] MEDS: ASCORBIC ACID 500 MG TAB PO SCH (08:37)
[2022-01-07] MEDS: METOPROLOL TARTRATE 50 MG TAB PO SCH ×2 (08:37→16:09)
[2022-01-07] MEDS: CHOLECALCIFEROL 25 MCG (1000 IU) TABLET PO SCH (08:38)
[2022-01-07] MEDS: MAGNESIUM OXIDE 400 MG TAB PO SCH ×3 (08:39→22:24)
[2022-01-07] MEDS: PANTOPRAZOLE 40 MG/10 ML VIAL IVP SCH ×2 (08:39→22:23)
[2022-01-07] MEDS: FOLIC ACID 1 MG TAB PO SCH (08:39)
[2022-01-07] MEDS: MULTIVITAMINS, THERA 1 EACH TAB PO SCH (08:39)
[2022-01-07] MEDS: TAMSULOSIN 0.4 MG CAP.ER.24H PO SCH (08:40)
[2022-01-07] MEDS: POTASSIUM CHLORIDE ER 20 MEQ TAB.ER PO SCH ×2 (08:40→22:23)
--- NOTE | 2022-01-07 08:48 | P.PN ---
Subjective Patient is seen for follow-up for hyponatremia. Patient had been maintained on IV bicarb and developed hypotension. Patient received multiple fluid boluses and was transferred to the ICU. He is currently on pressors. Antibiotics have been changed. Serum sodium has improved however patient is currently oliguric CODE STATUS is DO NOT RESUSCITATE No active bleeding noted Patient was lethargic and barely communicating yesterday. However this morning patient is awake he is following commands he is alert and oriented 3. Patient is asking for food. Pressors are being decreased. Sodium has improved to 130 Serum creatinine remains around 1 mg/dL however urine output is still low at about 10-15 mL an hour. Objective - Vital Signs Vital signs: Vital Signs Temp 97.9 F 01/07/22 04:00 Pulse 122 H 01/07/22 07:56 Resp 19 01/07/22 07:00 BP 100/24 01/07/22 07:00 Pulse Ox 99 01/07/22 07:00 FiO2 28 01/02/22 16:04 Intake & Output 01/06/22 01/07/22 01/07/22 18:59 06:59 18:59 Intake Total 4716.263 2880.517 377 Output Total 157 115 10 Balance 4559.263 2765.517 367 Weight 113.5 kg Intake: IV 3220 1796 377 0.45 w/ bicarb 1100 200 0.9 NACL 220 180 40 0.9 bolus 2000 Sodium Chloride 0.45% 1, 900 000 ml @ 100 mls/hr IV . [id number] ERINN with Sodium Bicarb (1 Meq/ml) 150 ml Rx#:[id number] pressure bags 66 12 vancomycin 250 125 zosyn 100 200 Intake, IV Titration 8092.331 4839.517 Amount Calcium Gluconate in NaCl 100 1 gm In Saline 1 100ml. bag @ 100 mls/hr IVPB ONCE ONE Rx#:[id number] Calcium Gluconate in NaCl 100 2 gm In Saline 1 100ml. bag @ 100 mls/hr IVPB ONCE ONE Rx#:[id number] Cefepime 2 gm In Sodium 100 Chloride 0.9% 100 ml @ 25 mls/hr IVPB Q8HR ERINN Rx# :[id number] Heparin Sod,Pork in 0.45% 26.002 60.343 NaCl 25,000 unit In 0.45 % NaCl 1 250ml.bag @ 18 UNITS/KG/HR 15.758 mls/hr IV .[id number] ERINN Rx#: [id number] Magnesium Sulfate-D5w Pmx 200 1 gm In Dextrose/Water 1 100ml.bag @ 100 mls/hr IVPB Q1H ERINN Rx#: [id number] Norepinephrine 32 mg In 220.261 316.079 Sodium Chloride 0.9% 218 ml @ 0.5 MCG/KG/MIN 20. 518 mls/hr IV .[id number] ERINN Rx#:[id number] Potassium Chloride 10 meq 200 In Water For Injection 1 100ml.bag @ 100 mls/hr IVPB ONCE ONE Rx#: [id number] Potassium Chloride 20 meq 200 In Water For Injection 1 100ml.bag @ 50 mls/hr IVPB Q2H ERINN Rx#: [id number] Sodium Chloride 0.45% 1, 600 100 000 ml @ 100 mls/hr IV . [id number] ERINN with Sodium Bicarb (1 Meq/ml) 150 ml Rx#:[id number] Sodium Chloride 0.9% 150 108.095 ml @ 0.03 UNITS/MIN 4.59 mls/hr IV .Q24H ERINN with Vasopressin 60 unit Rx#: [id number] Oral 250 Output: Urine 157 115 10 Other: Voiding Method Indwelling Catheter Indwelling Catheter Indwelling Catheter # Bowel Movements 1 ABP, PAP, CO, CI - Last Documented Arterial Blood Pressure 121/70 - Exam Patient is comfortable he is awake Alert oriented 3 today. Following commands. Examination of the heart S1 and S2 Examination lungs bilateral breath sounds are heard Abdomen is soft obese nontender Examination of the lower extremity shows edema 2+ bilaterally. Patient is not able to move his legs much. Patient is following commands - Labs CBC & Chem 7: 01/07/22 05:15 01/07/22 05:15 Labs: Abnormal Lab Results - Last 24 Hours (Table) 01/06/22 01/06/22 01/06/22 Range/Units 12:02 12:02 12:02 RBC (4.30-5.90) m/uL Hgb (13.0-17.5) gm/dL Hct (39.0-53.0) % RDW (11.5-15.5) % Neutrophils # (1.3-7.7) k/uL Lymphocytes # (1.0-4.8) k/uL PT (9.0-12.0) sec INR (<1.2) APTT 196.7 H* (22.0-30.0) sec ABG pCO2 (35-45) mmHg ABG pO2 (83-108) mmHg ABG HCO3 (21-25) mmol/L ABG Total CO2 (19-24) mmol/L ABG O2 Saturation (94-97) % ABG Lactic Acid (0.5-1.6) mmol/L Sodium 128 L (137-145) mmol/L Potassium 3.4 L (3.5-5.1) mmol/L Carbon Dioxide (22-30) mmol/L Glucose (74-99) mg/dL POC Glucose (mg/dL) (70-110) mg/dL Plasma Lactic Acid Hayden 4.4 H* (0.7-2.0) mmol/L Calcium (8.4-10.2) mg/dL Magnesium (1.6-2.3) mg/dL Alkaline Phosphatase (38-126) U/L Total Protein (6.3-8.2) g/dL Albumin (3.5-5.0) g/dL 01/06/22 01/06/22 01/06/22 Range/Units 16:38 16:40 17:53 RBC 3.43 L (4.30-5.90) m/uL Hgb 9.5 L (13.0-17.5) gm/dL Hct 29.2 L (39.0-53.0) % RDW 18.4 H (11.5-15.5) % Neutrophils # (1.3-7.7) k/uL Lymphocytes # 0.5 L (1.0-4.8) k/uL PT (9.0-12.0) sec INR (<1.2) APTT (22.0-30.0) sec ABG pCO2 20 L (35-45) mmHg ABG pO2 142 H (83-108) mmHg ABG HCO3 13 L (21-25) mmol/L ABG Total CO2 14 L (19-24) mmol/L ABG O2 Saturation 99.3 H (94-97) % ABG Lactic Acid (0.5-1.6) mmol/L Sodium 127 L (137-145) mmol/L Potassium (3.5-5.1) mmol/L Carbon Dioxide 12 L (22-30) mmol/L Glucose 240 H (74-99) mg/dL POC Glucose (mg/dL) (70-110) mg/dL Plasma Lactic Acid Hayden (0.7-2.0) mmol/L Calcium 6.4 L* (8.4-10.2) mg/dL Magnesium (1.6-2.3) mg/dL Alkaline Phosphatase 202 H (38-126) U/L Total Protein 4.0 L (6.3-8.2) g/dL Albumin 1.7 L (3.5-5.0) g/dL 01/06/22 01/06/22 01/06/22 Range/Units 17:53 18:27 19:00 RBC (4.30-5.90) m/uL Hgb (13.0-17.5) gm/dL Hct (39.0-53.0) % RDW (11.5-15.5) % Neutrophils # (1.3-7.7) k/uL Lymphocytes # (1.0-4.8) k/uL PT (9.0-12.0) sec INR (<1.2) APTT 140.4 H* (22.0-30.0) sec ABG pCO2 (35-45) mmHg ABG pO2 (83-108) mmHg ABG HCO3 (21-25) mmol/L ABG Total CO2 (19-24) mmol/L ABG O2 Saturation (94-97) % ABG Lactic Acid 6.0 H* (0.5-1.6) mmol/L Sodium (137-145) mmol/L Potassium (3.5-5.1) mmol/L Carbon Dioxide (22-30) mmol/L Glucose (74-99) mg/dL POC Glucose (mg/dL) (70-110) mg/dL Plasma Lactic Acid Hayden (0.7-2.0) mmol/L Calcium (8.4-10.2) mg/dL Magnesium 1.5 L (1.6-2.3) mg/dL Alkaline Phosphatase (38-126) U/L Total Protein (6.3-8.2) g/dL Albumin (3.5-5.0) g/dL 01/06/22 01/07/22 01/07/22 Range/Units 22:00 00:10 04:10 RBC (4.30-5.90) m/uL Hgb (13.0-17.5) gm/dL Hct (39.0-53.0) % RDW (11.5-15.5) % Neutrophils # (1.3-7.7) k/uL Lymphocytes # (1.0-4.8) k/uL PT 17.1 H (9.0-12.0) sec INR 1.7 H (<1.2) APTT 73.9 H (22.0-30.0) sec ABG pCO2 (35-45) mmHg ABG pO2 (83-108) mmHg ABG HCO3 (21-25) mmol/L ABG Total CO2 (19-24) mmol/L ABG O2 Saturation (94-97) % ABG Lactic Acid (0.5-1.6) mmol/L Sodium 129 L (137-145) mmol/L Potassium 3.4 L (3.5-5.1) mmol/L Carbon Dioxide 13 L (22-30) mmol/L Glucose 249 H (74-99) mg/dL POC Glucose (mg/dL) 289 H (70-110) mg/dL Plasma Lactic Acid Hayden (0.7-2.0) mmol/L Calcium 6.4 L* (8.4-10.2) mg/dL Magnesium (1.6-2.3) mg/dL Alkaline Phosphatase 203 H (38-126) U/L Total Protein 3.9 L (6.3-8.2) g/dL Albumin 1.6 L (3.5-5.0) g/dL 01/07/22 01/07/22 01/07/22 Range/Units 05:15 05:15 05:15 RBC 3.64 L (4.30-5.90) m/uL Hgb 9.8 L (13.0-17.5) gm/dL Hct 30.3 L (39.0-53.0) % RDW 18.5 H (11.5-15.5) % Neutrophils # 8.7 H (1.3-7.7) k/uL Lymphocytes # (1.0-4.8) k/uL PT (9.0-12.0) sec INR (<1.2) APTT (22.0-30.0) sec ABG pCO2 (35-45) mmHg ABG pO2 (83-108) mmHg ABG HCO3 (21-25) mmol/L ABG Total CO2 (19-24) mmol/L ABG O2 Saturation (94-97) % ABG Lactic Acid (0.5-1.6) mmol/L Sodium 130 L (137-145) mmol/L Potassium (3.5-5.1) mmol/L Carbon Dioxide 16 L (22-30) mmol/L Glucose 197 H (74-99) mg/dL POC Glucose (mg/dL) (70-110) mg/dL Plasma Lactic Acid Hayden 3.8 H* (0.7-2.0) mmol/L Calcium 6.8 L (8.4-10.2) mg/dL Magnesium (1.6-2.3) mg/dL Alkaline Phosphatase 238 H (38-126) U/L Total Protein 4.2 L (6.3-8.2) g/dL Albumin 1.8 L (3.5-5.0) g/dL 01/07/22 Range/Units 06:29 RBC (4.30-5.90) m/uL Hgb (13.0-17.5) gm/dL Hct (39.0-53.0) % RDW (11.5-15.5) % Neutrophils # (1.3-7.7) k/uL Lymphocytes # (1.0-4.8) k/uL PT (9.0-12.0) sec INR (<1.2) APTT (22.0-30.0) sec ABG pCO2 (35-45) mmHg ABG pO2 (83-108) mmHg ABG HCO3 (21-25) mmol/L ABG Total CO2 (19-24) mmol/L ABG O2 Saturation (94-97) % ABG Lactic Acid (0.5-1.6) mmol/L Sodium (137-145) mmol/L Potassium (3.5-5.1) mmol/L Carbon Dioxide (22-30) mmol/L Glucose (74-99) mg/dL POC Glucose (mg/dL) 231 H (70-110) mg/dL Plasma Lactic Acid Hayden (0.7-2.0) mmol/L Calcium (8.4-10.2) mg/dL Magnesium (1.6-2.3) mg/dL Alkaline Phosphatase (38-126) U/L Total Protein (6.3-8.2) g/dL Albumin (3.5-5.0) g/dL Microbiology - Last 24 Hours (Table) 01/06/22 02:25 Blood Culture - Preliminary Blood No Growth after 24 hours 01/05/22 18:30 Blood Culture - Preliminary Blood No Growth after 24 hours Assessment and Plan Assessment: 1. Hyponatremia, hypovolemic. Patient did not respond to saline initially however he is currently maintained on sodium chloride tabs and is receiving bicarb with the base of half-normal saline. Sodium has increased to 130 today which is appropriate. 2. Hyperkalemia associated with a hemolyzed sample as well as metabolic acidosis and potassium supplementation. Repeat potassium was not low at believe this could be this could have been an error. 3. History of acute kidney injury during last hospitalization with the requirement of 1 - 2 treatments of hemodialysis. Renal function recovered with serum creatinine now at about 1.0 mg/dL 4. Metabolic acidosis non-gap, maintained on bicarb drip. 5. Right lower extremity DVT 6. Nausea and significant weight loss 7. Hypotension and shock most likely sepsis. Source not identified yet. Antibiotics have been changed. 8. Hypokalemia status post replacement 9. Mild hypocalcemia. Corrected calcium was 8.4 as albumin is 1.7 g/dL. 10. Oliguria rule out catheter obstruction since serum creatinine has not changed much and remains around 1.1 mg/dL Plan: Flush Smith catheter Check bladder scan Add oral sodium bicarb Decrease bicarb drip to 50 mL an hour. Continue to wean off pressors Repeat labs this afternoon Continue with antibiotics
[2022-01-07 08:51] LABS: % Iron Saturation 94.33 (15.00-50.00)
[2022-01-07] MEDS ORDERED: SODIUM BICARBONATE TAB 650 MG TAB PO SCH (09:00)
--- NOTE | 2022-01-07 09:20 | P.PN ---
Subjective Progress Note Date: 01/07/22 I was asked to evaluate this patient and chance for him to the intensive care unit and the patient has been quite elevated cardiac and hypotensive in addition to significant electrolyte and blood abnormalities. The patient is known to have multiple comorbidities. He has COPD, diabetes mellitus, hypertension , and addition to obstructive sleep apnea and the patient utilizes CPAP machine. The patient had an open cholecystectomy for gangrenous cholecystitis and the surgery was on 09/17/2021. At that time, the patient was quite ill and septic. He developed acute respiratory failure following his surgery and the patient was extubated successfully. During the course of the illness, the patient and acute kidney injury and he was initially on hemodialysis via permacath. The patient presented back to our hospital from the skilled nursing where he was residing and the patient was quite lethargic and dehydrated. The patient apparently was initially brought into the hospital for a PEG tube placement as the patient wasn't eating or drinking and he had lost significant amount of weight. He has also developed a pressure ulcer of his left gluteal area and the patient was seen by the wound care team and the patient has a wound VAC applied to that area. There was a concern for development of a abscess in the liver. A CAT scan of the abdomen was done that raised concerns for a fluid collection/abscess in the gallbladder fossa and a similar findings were also seen on the ultrasound of the abdomen. The case was reviewed by interventional radiology. This finding was quite deep in the abdomen and limited for percutaneous access. Based on that, no intervention was done. Over the past 24 hours, the patient has been acting more septic. The patient was hypotensive and the A team was activated. The patient apparently was running a lower blood pressure. The patient also had been refusing to take his medication. He was given fluid boluses. He was started on bicarb infusion at the rate of 75 mL an hour and he was also started on midodrine and salt tablets. He was noted to be hyponatremic. Subsequently, his condition decompensated and this afternoon, the patient was examined the lethargic, unresponsive, labs showed a sodium level of 119, serum bicarb was 16 with a anion gap of 6. BUN was 11 with a creatinine of 0.6. The pro-calcitonin level was 0.3. The patient had a White second of 9.0 with a hemoglobin of 9.6. Coagulation profile was within normal limits. The sodium level is 119 with a serum bicarb of 16 and an anion gap of 6. Noted the patient was hyponatremic during this current admission. The sodium level progressively dropped and the patient did not respo nd to normal saline. Urine sodium was low, less than 20 but urine osmolality was at 454. The patient was seen by nephrology and the normal saline was discontinued. For now, the patient is on a bicarb infusion at the rate of 70 mL an hour. He was started also on IV Zosyn. Note that during this current admission, the patient was found to have a right lower extremity DVT and the pat ient was started on Lovenox and this was switched to IV heparin. The patient did not have any pulmonary embolism based on the CT angiogram. Echocardiac Michael showed a preserved LV function. His serum cortisone level was elevated. After the patient being chest to the intensive care unit, he was given a total of 2 L of bolus. He became more alert and responsive. He had to be started on pressors and currently norepinephrine infusion is running at 0.4 mcg/kg per minute. The patient was given a triple lumen catheter and arterial line catheter for intensive hemodynamic monitoring. The patient was started on IV Zosyn and the patient will be given vancomycin. Wound VAC is in place. Abdomen is soft. Mental status is gradually improving. He was able to recognize when he was older to follow simple commands. He is receiving the second bolus of normal saline for now. 01/06/2022, the patient is being seen for a follow-up. This patient is developing progressive hypotension and patient is currently in a shock state. Suspect septic shock although no positive cultures are available. the patient got chest to the ICU yesterday because of hyponatremia, hypotension, shock state and the patient was started with broad-spectrum antibiotics and the patient was resuscitated IV fluids. The patient overnight, was Bicarb Infusion with a Total 150 Mg of Sodium Bicarbonate of 150 ML an Hour. The Patient Was Given a Total of 2 L Normal Saline Bolus Immediately. The Patient Was Started on a Combination of Zosyn and vancomycin. The patient was also started on pressors. Norepinephrine infusion currently running at 0.4 mg/kg per minute and the patient is also on a vasopressin physiologic dose. The patient is also found to have a lactic acid level of 2.1. Pro-calcitonin level is at 0.33, mildly elevated and the troponin was at 0.03. The patient is a preserved LV function based on previous echocardiogram. At the same time, the patient remains on 2 L of oxygen by nasal cannula. Post line chest x-ray showed no evidence of any pneumonia or any other pulmonary complications. On today's evaluation, he remains lethargic. Oral intake is minimal. No nausea or emesis. No abdominal pain. He is arousable and follows simple commands. He feels extremely weak. Denies having any other complaints. Meanwhile, the white cell count today is at 8.9 with hemoglobin of 9.1 and the patient has a platelet count of 366. The PTT was supratherapeutic and is currently on hold and those being adjusted by pharmacy. Sodium level is up to 125 with a BUN of 11 and a creatinine of 1.01. LFTs show an AST of 41, ALT of 23, alkaline phosphatase of 179, serum albumin is 1.7. Stool for occult blood and C. diff were both negative. The patient has still a wound VAC in place. Cultures were sent and the results are still negative for now. 01/07/2022, the patient is much more alert and awake and communicating and answering questions appropriately. He woke up this morning much more comfortable and his breathing is nonlabored. He is still a shock state. He is still being resuscitated with IV fluids. He received a total of 2 L yesterday and he was maintained on a bicarb infusion at the rate of 150 mL an hour. On today's evaluation, his hemodynamics have improved. His blood pressure is adequate while being off pressors and the patient is currently on norepinephrine at a dose of 0.35 Kevin respiratory micrograms per minute and vasopressin is admitted physiologic dose of 0.03 units an hour. Urine output is in order of 15-20 mL an hour. Meanwhile, the patient is in sinus rhythm. No angina. No palpitation. No shortness of breath. He remains on 2 L of oxygen by nasal cannula with a pulse ox of 99%. Cultures of been all negative. His white cell count is at 10.2 with a hemoglobin of 0.8 and a platelet count of 366. He remains on IV heparin with a therapeutic PT this morning. INR is at 1.7 with a PT of 17.1. Sodium level is normalized is up to 1:30 and a serum bicarb is up to 16 with an anion gap of 10. His lactic acid level has been fluctuating and dropped down to 3.8 after being as high as 4.4. His magnesium is being replaced at the level of 1.9. LFTs are normal, alkaline phosphatase is at 238. No abdominal pain. He has extensive thirst spacing an extensive edema in all 4 extremities and the left upper extremity is significantly swollen at this point in time. The patient has a right brachial arterial line catheter in place. Pulses are diminished in all 4 extremities and the patient remains cold and clammy and vasoconstricted. Note that his echo of the heart showed a preserved LV function. As such, the exact cause of shock is not clear although we have high suspicions for her septic shock. The patient was resuscitated with IV fluids, pressors, and broad-spectrum antibiotics. With a combination of Zosyn and vancomycin. Cultures are all negative. Pro-calcitonin level is slightly elevated. Mental status is improved. Stool for C. diff has been negative. Wound VAC is in place. Output from the wound VAC is minimal at this point in time. Objective - Vital Signs Vital signs: Vital Signs Temp 97.9 F 01/07/22 04:00 Pulse 122 H 01/07/22 07:56 Resp 19 01/07/22 07:00 BP 100/24 01/07/22 07:00 Pulse Ox 99 01/07/22 07:00 FiO2 28 01/02/22 16:04 Intake & Output 01/06/22 01/07/22 01/07/22 18:59 06:59 18:59 Intake Total 4716.263 2880.517 414.616 Output Total 157 115 10 Balance 4559.263 2765.517 404.616 Weight 113.5 kg Intake: IV 3220 1796 377 0.45 w/ bicarb 1100 200 0.9 NACL 220 180 40 0.9 bolus 2000 Sodium Chloride 0.45% 1, 900 000 ml @ 100 mls/hr IV . [id number] ERINN with Sodium Bicarb (1 Meq/ml) 150 ml Rx#:[id number] pressure bags 66 12 vancomycin 250 125 zosyn 100 200 Intake, IV Titration 3152.601 2124.517 37.616 Amount Calcium Gluconate in NaCl 100 1 gm In Saline 1 100ml. bag @ 100 mls/hr IVPB ONCE ONE Rx#:[id number] Calcium Gluconate in NaCl 100 2 gm In Saline 1 100ml. bag @ 100 mls/hr IVPB ONCE ONE Rx#:[id number] Cefepime 2 gm In Sodium 100 Chloride 0.9% 100 ml @ 25 mls/hr IVPB Q8HR [facility] Rx# :[id number] Heparin Sod,Pork in 0.45% 26.002 60.343 NaCl 25,000 unit In 0.45 % NaCl 1 250ml.bag @ 18 UNITS/KG/HR 15.758 mls/hr IV .[id number] [facility] Rx#: [id number] Magnesium Sulfate-D5w Pmx 200 1 gm In Dextrose/Water 1 100ml.bag @ 100 mls/hr IVPB Q1H [facility] Rx#: [id number] Norepinephrine 32 mg In 220.261 316.079 37.616 Sodium Chloride 0.9% 218 ml @ 0.5 MCG/KG/MIN 20. 518 mls/hr IV .[id number] [facility] Rx#:[id number] Potassium Chloride 10 meq 200 In Water For Injection 1 100ml.bag @ 100 mls/hr IVPB ONCE ONE Rx#: [id number] Potassium Chloride 20 meq 200 In Water For Injection 1 100ml.bag @ 50 mls/hr IVPB Q2H [facility] Rx#: [id number] Sodium Chloride 0.45% 1, 600 100 000 ml @ 100 mls/hr IV . [id number] ERINN with Sodium Bicarb (1 Meq/ml) 150 ml Rx#:[id number] Sodium Chloride 0.9% 150 108.095 ml @ 0.03 UNITS/MIN 4.59 mls/hr IV .Q24H ERINN with Vasopressin 60 unit Rx#: [id number] Oral 250 Output: Urine 157 115 10 Other: Voiding Method Indwelling Catheter Indwelling Catheter Indwelling Catheter # Bowel Movements 1 ABP, PAP, CO, CI - Last Documented Arterial Blood Pressure 121/70 - Exam Gen. appearance the patient is awake and alert and is following simple commands. He is profoundly weak in all 4 extremities. No agitation. No delirium. Awake and alert and following commands and answering questions appropriately. Head exam was generally normal. There was no scleral icterus or corneal arcus. Mucous membranes were moist. Neck was supple and without jugular venous distension, thyromegaly, or carotid bruits. Carotids were easily palpable bilaterally. There was no adenopathy. Lungs were clear to auscultation and percussion, and with normal diaphragmatic excursion. No wheezes or rales were noted. Heart sounds are distant positive sinus and there is no significant murmurs appreciated Abdominal exam revealed normal bowel sounds. The abdomen was soft, non-tender, and without masses, organomegaly, or appreciable enlargement of the abdominal aorta. Patient is also developed some bleeding from the skin at the site of Lovenox injections. There is areas of ecchymosis. No direct tenderness. No rebound tenderness. No guarding. Surgical wound site over the right upper quadrant at the site of the open cholecystectomy dry clean and intact. Bowel sounds are hypoactive at the present. No distention. No ascites. Extremities are mottled and the patient diminished pulses bilaterally, no cyanosis. Neurologically the patient is following commands and answering questions. No focal neurological deficits. Profoundly weak, extensive edema in all 4 extremities mainly in the left upper extremity that needs to be further worked up. Pulses are diminished in all 4 extremities and extra [place] or cold. Less mottled compared to his day of admission. Skin the patient has a wound VAC in his pulse ox regarding his stage IV sacral decubitus ulceration. - Labs CBC & Chem 7: 01/07/22 05:15 01/07/22 05:15 Labs: Abnormal Lab Results - Last 24 Hours (Table) 01/06/22 01/06/22 01/06/22 Range/Units 12:02 12:02 12:02 RBC (4.30-5.90) m/uL Hgb (13.0-17.5) gm/dL Hct (39.0-53.0) % RDW (11.5-15.5) % Neutrophils # (1.3-7.7) k/uL Lymphocytes # (1.0-4.8) k/uL PT (9.0-12.0) sec INR (<1.2) APTT 196.7 H* (22.0-30.0) sec ABG pCO2 (35-45) mmHg ABG pO2 (83-108) mmHg ABG HCO3 (21-25) mmol/L ABG Total CO2 (19-24) mmol/L ABG O2 Saturation (94-97) % ABG Lactic Acid (0.5-1.6) mmol/L Sodium 128 L (137-145) mmol/L Potassium 3.4 L (3.5-5.1) mmol/L Carbon Dioxide (22-30) mmol/L Glucose (74-99) mg/dL POC Glucose (mg/dL) (70-110) mg/dL Plasma Lactic Acid Hayden 4.4 H* (0.7-2.0) mmol/L Calcium (8.4-10.2) mg/dL Magnesium (1.6-2.3) mg/dL Iron (65-175) ug/dL TIBC (228-460) ug/dL % Saturation (15.00-50.00) Transferrin (204.0-354.0) mg/dL Alkaline Phosphatase (38-126) U/L Total Protein (6.3-8.2) g/dL Albumin (3.5-5.0) g/dL 01/06/22 01/06/22 01/06/22 Range/Units 16:38 16:40 17:53 RBC 3.43 L (4.30-5.90) m/uL Hgb 9.5 L (13.0-17.5) gm/dL Hct 29.2 L (39.0-53.0) % RDW 18.4 H (11.5-15.5) % Neutrophils # (1.3-7.7) k/uL Lymphocytes # 0.5 L (1.0-4.8) k/uL PT (9.0-12.0) sec INR (<1.2) APTT (22.0-30.0) sec ABG pCO2 20 L (35-45) mmHg ABG pO2 142 H (83-108) mmHg ABG HCO3 13 L (21-25) mmol/L ABG Total CO2 14 L (19-24) mmol/L ABG O2 Saturation 99.3 H (94-97) % ABG Lactic Acid (0.5-1.6) mmol/L Sodium 127 L (137-145) mmol/L Potassium (3.5-5.1) mmol/L Carbon Dioxide 12 L (22-30) mmol/L Glucose 240 H (74-99) mg/dL POC Glucose (mg/dL) (70-110) mg/dL Plasma Lactic Acid Hayden (0.7-2.0) mmol/L Calcium 6.4 L* (8.4-10.2) mg/dL Magnesium (1.6-2.3) mg/dL Iron (65-175) ug/dL TIBC (228-460) ug/dL % Saturation (15.00-50.00) Transferrin (204.0-354.0) mg/dL Alkaline Phosphatase 202 H (38-126) U/L Total Protein 4.0 L (6.3-8.2) g/dL Albumin 1.7 L (3.5-5.0) g/dL 01/06/22 01/06/22 01/06/22 Range/Units 17:53 18:27 19:00 RBC (4.30-5.90) m/uL Hgb (13.0-17.5) gm/dL Hct (39.0-53.0) % RDW (11.5-15.5) % Neutrophils # (1.3-7.7) k/uL Lymphocytes # (1.0-4.8) k/uL PT (9.0-12.0) sec INR (<1.2) APTT 140.4 H* (22.0-30.0) sec ABG pCO2 (35-45) mmHg ABG pO2 (83-108) mmHg ABG HCO3 (21-25) mmol/L ABG Total CO2 (19-24) mmol/L ABG O2 Saturation (94-97) % ABG Lactic Acid 6.0 H* (0.5-1.6) mmol/L Sodium (137-145) mmol/L Potassium (3.5-5.1) mmol/L Carbon Dioxide (22-30) mmol/L Glucose (74-99) mg/dL POC Glucose (mg/dL) (70-110) mg/dL Plasma Lactic Acid Hayden (0.7-2.0) mmol/L Calcium (8.4-10.2) mg/dL Magnesium 1.5 L (1.6-2.3) mg/dL Iron (65-175) ug/dL TIBC (228-460) ug/dL % Saturation (15.00-50.00) Transferrin (204.0-354.0) mg/dL Alkaline Phosphatase (38-126) U/L Total Protein (6.3-8.2) g/dL Albumin (3.5-5.0) g/dL 01/06/22 01/07/22 01/07/22 Range/Units 22:00 00:10 04:10 RBC (4.30-5.90) m/uL Hgb (13.0-17.5) gm/dL Hct (39.0-53.0) % RDW (11.5-15.5) % Neutrophils # (1.3-7.7) k/uL Lymphocytes # (1.0-4.8) k/uL PT 17.1 H (9.0-12.0) sec INR 1.7 H (<1.2) APTT 73.9 H (22.0-30.0) sec ABG pCO2 (35-45) mmHg ABG pO2 (83-108) mmHg ABG HCO3 (21-25) mmol/L ABG Total CO2 (19-24) mmol/L ABG O2 Saturation (94-97) % ABG Lactic Acid (0.5-1.6) mmol/L Sodium 129 L (137-145) mmol/L Potassium 3.4 L (3.5-5.1) mmol/L Carbon Dioxide 13 L (22-30) mmol/L Glucose 249 H (74-99) mg/dL POC Glucose (mg/dL) 289 H (70-110) mg/dL Plasma Lactic Acid Hayden (0.7-2.0) mmol/L Calcium 6.4 L* (8.4-10.2) mg/dL Magnesium (1.6-2.3) mg/dL Iron (65-175) ug/dL TIBC (228-460) ug/dL % Saturation (15.00-50.00) Transferrin (204.0-354.0) mg/dL Alkaline Phosphatase 203 H (38-126) U/L Total Protein 3.9 L (6.3-8.2) g/dL Albumin 1.6 L (3.5-5.0) g/dL 01/07/22 01/07/22 01/07/22 Range/Units 05:15 05:15 05:15 RBC (4.30-5.90) m/uL Hgb (13.0-17.5) gm/dL Hct (39.0-53.0) % RDW (11.5-15.5) % Neutrophils # (1.3-7.7) k/uL Lymphocytes # (1.0-4.8) k/uL PT (9.0-12.0) sec INR (<1.2) APTT (22.0-30.0) sec ABG pCO2 (35-45) mmHg ABG pO2 (83-108) mmHg ABG HCO3 (21-25) mmol/L ABG Total CO2 (19-24) mmol/L ABG O2 Saturation (94-97) % ABG Lactic Acid (0.5-1.6) mmol/L Sodium 130 L (137-145) mmol/L Potassium (3.5-5.1) mmol/L Carbon Dioxide 16 L (22-30) mmol/L Glucose 197 H (74-99) mg/dL POC Glucose (mg/dL) (70-110) mg/dL Plasma Lactic Acid Hayden 3.8 H* (0.7-2.0) mmol/L Calcium 6.8 L (8.4-10.2) mg/dL Magnesium (1.6-2.3) mg/dL Iron 55 L (65-175) ug/dL TIBC 59 L (228-460) ug/dL % Saturation 94.33 H (15.00-50.00) Transferrin 41.8 L (204.0-354.0) mg/dL Alkaline Phosphatase 238 H (38-126) U/L Total Protein 4.2 L (6.3-8.2) g/dL Albumin 1.8 L (3.5-5.0) g/dL 01/07/22 01/07/22 Range/Units 05:15 06:29 RBC 3.64 L (4.30-5.90) m/uL Hgb 9.8 L (13.0-17.5) gm/dL Hct 30.3 L (39.0-53.0) % RDW 18.5 H (11.5-15.5) % Neutrophils # 8.7 H (1.3-7.7) k/uL Lymphocytes # (1.0-4.8) k/uL PT (9.0-12.0) sec INR (<1.2) APTT (22.0-30.0) sec ABG pCO2 (35-45) mmHg ABG pO2 (83-108) mmHg ABG HCO3 (21-25) mmol/L ABG Total CO2 (19-24) mmol/L ABG O2 Saturation (94-97) % ABG Lactic Acid (0.5-1.6) mmol/L Sodium (137-145) mmol/L Potassium (3.5-5.1) mmol/L Carbon Dioxide (22-30) mmol/L Glucose (74-99) mg/dL POC Glucose (mg/dL) 231 H (70-110) mg/dL Plasma Lactic Acid Hayden (0.7-2.0) mmol/L Calcium (8.4-10.2) mg/dL Magnesium (1.6-2.3) mg/dL Iron (65-175) ug/dL TIBC (228-460) ug/dL % Saturation (15.00-50.00) Transferrin (204.0-354.0) mg/dL Alkaline Phosphatase (38-126) U/L Total Protein (6.3-8.2) g/dL Albumin (3.5-5.0) g/dL Microbiology - Last 24 Hours (Table) 01/06/22 02:25 Blood Culture - Preliminary Blood No Growth after 24 hours 01/05/22 18:30 Blood Culture - Preliminary Blood No Growth after 24 hours Assessment and Plan Plan: Acute shock state, possibly hypovolemic/septic. Cultures are still negative. Pro-calcitonin level is slightly elevated. Responded to fluids and pressors and antibiotics. Pressors are being gradually weaned off. The patient developed extensive third spacing due to aggressive volume resuscitation. He'll be started on IV Lasix and the pressors will be gradually weaned off. Mentation improved. Change in mental status, improving with fluid resuscitation and improvement in the blood pressure Recent gangrenous cholecystitis with a right cholecystectomy, open. There is a collection in the gallbladder fossa which is most likely benign. Abdominal exam is benign and the patient is not having any abnormalities in liver function tests. Cachexia, failure to meet caloric requirements, weight loss, awaiting a PEG tube insertion, this was placed on hold because of a shock state and the patient will not have a active inserted. At the same time, he seems to be hungry and is asking for food and strawberries today. DVT of the right lower extremity currently on IV heparin, no evidence of any pulmonary embolism, and IV heparin Stage IV decubitus ulcer currently has a wound VAC in place which could be another source of sepsis. Previous history of kidney failure requiring dialysis, current renal function is normal Hyponatremia, likely hypovolemic. SIADH is felt to be less likely. We'll continue to monitor. Sodium level is improving and is currently up to 1:30 and the patient is being given bicarb infusion None Anion gap metabolic acidosis, improving History morbid obesity with ongoing weight loss Diabetes mellitus type 2 Bronchial asthma, chronic unspecified Diabetes mellitus type 2 Obstructive sleep apnea BPH Hypertension Hyperlipidemia Previous history of C. diff colitis, repeat stool for C. diff has been negative Generalized debility due to his medical condition and the patient has been skilled nursing resident following his surgery Plan Reduced IV fluids to 50 mL an hour of bicarb infusion.. Give the patient Lasix 60 mg IV and monitor his urine output and decide on further future dosing accordingly Stopped IV heparin Put the patient on on Eliquis 5 mg by mouth twice a day Continue Zosyn and vancomycin Continue norepinephrine infusion and titrate the dose Continue vasopressin A cortisol level was high Condition is critical. CODE STATUS is DNR/DNI based on patient's wishes. Critically care evaluation done more than 30 minutes Time with Patient: Greater than 30
[2022-01-07] MEDS: SODIUM BICARBONATE TAB 650 MG TAB PO SCH ×3 (09:29→22:23)
[2022-01-07] MEDS ORDERED: APIXABAN 5 MG TAB PO SCH (09:30)
[2022-01-07] MEDS ORDERED: PHYTONADIONE 2 MG in SODIUM CHLORIDE 0.9% 50 ML IVPB STA (09:57)
--- NOTE | 2022-01-07 10:20 | US ---
EXAMINATION TYPE: US venous doppler duplex UE LT DATE OF EXAM: 01/07/2022 COMPARISON: NONE CLINICAL HISTORY: edema. SIDE PERFORMED: Left Technically difficult study performed portably on patient with left arm edema in ICU. Unable to move arm, patient has central line in upper chest restricting visualization. Unable to move arm so unable to image axilla vein. Unable to image basilic and cephalic due to edema. IJV, subclavian , brachial, and ulnar veins imaged and no DVT seen. Left Arm: Negative for DVT as visualized. IMPRESSION: 1. Left upper extremity ultrasound negative for deep venous thrombosis. 2. Superficial soft tissue swelling. 3. Exam is limited due to several factors discussed above.
--- NOTE | 2022-01-07 10:35 | P.PN ---
Progress Note - Text Progress Note Date: 01/07/22 Patient remains in the ICU. He still undergoing resuscitation for his hypotension. His PEG tube was canceled yesterday. We will place PEG tube when medically stable.
[2022-01-07] MEDS: NOREPINEPHRINE 32 MG in SODIUM CHLORIDE 0.9% 218 ML IV SCH (12:31)
[2022-01-07] MEDS: SODIUM CHLORIDE 0.45% 1,000 ML with SODIUM BICARB (1 MEQ/ML) 150 ML IV SCH ×2 (12:34)
[2022-01-07 12:38] LABS: Glucose,Whole Blood 208 mg/dL (70-110)
--- NOTE | 2022-01-07 13:36 | P.PN ---
Subjective Progress Note Date: 01/07/22 Principal diagnosis: DVT, bleeding after lovenox Pt is awake today, he denies any known bleeding, RN does not report any bleeding. LUE swelling, neg for DVT Objective - Vital Signs Vital signs: Vital Signs Temp 97.6 F 01/07/22 08:00 Pulse 117 H 01/07/22 11:09 Resp 24 01/07/22 10:00 BP 119/64 01/07/22 10:00 Pulse Ox 100 01/07/22 10:00 FiO2 28 01/02/22 16:04 Intake & Output 01/06/22 01/07/22 01/07/22 18:59 06:59 18:59 Intake Total 4716.263 2880.517 666.616 Output Total 157 115 45 Balance 4559.263 2765.517 621.616 Weight 113.5 kg 113.5 kg Intake: IV 3220 1796 529 0.45 w/ bicarb 1100 300 0.9 NACL 220 180 80 0.9 bolus 2000 Sodium Chloride 0.45% 1, 900 000 ml @ 50 mls/hr IV . Q23H [facility] with Sodium Bicarb (1 Meq/ml) 150 ml Rx#:[id number] pressure bags 66 24 vancomycin 250 125 zosyn 100 200 Intake, IV Titration 8724.548 2810.517 137.616 Amount Calcium Gluconate in NaCl 100 1 gm In Saline 1 100ml. bag @ 100 mls/hr IVPB ONCE ONE Rx#:[id number] Calcium Gluconate in NaCl 100 2 gm In Saline 1 100ml. bag @ 100 mls/hr IVPB ONCE ONE Rx#:[id number] Cefepime 2 gm In Sodium 100 Chloride 0.9% 100 ml @ 25 mls/hr IVPB Q8HR [facility] Rx# :[id number] Heparin Sod,Pork in 0.45% 26.002 60.343 NaCl 25,000 unit In 0.45 % NaCl 1 250ml.bag @ 18 UNITS/KG/HR 15.758 mls/hr IV .[id number] [facility] Rx#: [id number] Magnesium Sulfate-D5w Pmx 200 100 1 gm In Dextrose/Water 1 100ml.bag @ 100 mls/hr IVPB Q1H [facility] Rx#: [id number] Norepinephrine 32 mg In 220.261 316.079 37.616 Sodium Chloride 0.9% 218 ml @ 0.5 MCG/KG/MIN 20. 518 mls/hr IV .[id number] [facility] Rx#:[id number] Potassium Chloride 10 meq 200 In Water For Injection 1 100ml.bag @ 100 mls/hr IVPB ONCE ONE Rx#: [id number] Potassium Chloride 20 meq 200 In Water For Injection 1 100ml.bag @ 50 mls/hr IVPB Q2H [facility] Rx#: [id number] Sodium Chloride 0.45% 1, 600 100 000 ml @ 50 mls/hr IV . Q23H [facility] with Sodium Bicarb (1 Meq/ml) 150 ml Rx#:[id number] Sodium Chloride 0.9% 150 108.095 ml @ 0.03 UNITS/MIN 4.59 mls/hr IV .Q24H [facility] with Vasopressin 60 unit Rx#: [id number] Oral 250 Output: Urine 157 115 45 Other: Voiding Method Indwelling Catheter Indwelling Catheter Indwelling Catheter # Bowel Movements 1 ABP, PAP, CO, CI - Last Documented Arterial Blood Pressure 118/69 - Constitutional General appearance: Present: cooperative, no acute distress, obese - EENT EENT Comment(s): corneal edema Eyes: Present: anicteric sclerae, EOMI ENT: Present: hearing grossly normal - Musculoskeletal Musculoskeletal: Present: generalized weakness - Psychiatric Psychiatric: Present: A&O x's 3 - Labs CBC & Chem 7: 01/07/22 05:15 01/07/22 10:25 Labs: Abnormal Lab Results - Last 24 Hours (Table) 01/06/22 01/06/22 01/06/22 Range/Units 12:02 12:02 12:02 RBC (4.30-5.90) m/uL Hgb (13.0-17.5) gm/dL Hct (39.0-53.0) % RDW (11.5-15.5) % Neutrophils # (1.3-7.7) k/uL Lymphocytes # (1.0-4.8) k/uL PT (9.0-12.0) sec INR (<1.2) APTT 196.7 H* (22.0-30.0) sec ABG pCO2 (35-45) mmHg ABG pO2 (83-108) mmHg ABG HCO3 (21-25) mmol/L ABG Total CO2 (19-24) mmol/L ABG O2 Saturation (94-97) % ABG Lactic Acid (0.5-1.6) mmol/L Sodium 128 L (137-145) mmol/L Potassium 3.4 L (3.5-5.1) mmol/L Carbon Dioxide (22-30) mmol/L Glucose (74-99) mg/dL POC Glucose (mg/dL) (70-110) mg/dL Plasma Lactic Acid Hayden 4.4 H* (0.7-2.0) mmol/L Calcium (8.4-10.2) mg/dL Magnesium (1.6-2.3) mg/dL Iron (65-175) ug/dL TIBC (228-460) ug/dL % Saturation (15.00-50.00) Transferrin (204.0-354.0) mg/dL Alkaline Phosphatase (38-126) U/L Total Protein (6.3-8.2) g/dL Albumin (3.5-5.0) g/dL 01/06/22 01/06/22 01/06/22 Range/Units 16:38 16:40 17:53 RBC 3.43 L (4.30-5.90) m/uL Hgb 9.5 L (13.0-17.5) gm/dL Hct 29.2 L (39.0-53.0) % RDW 18.4 H (11.5-15.5) % Neutrophils # (1.3-7.7) k/uL Lymphocytes # 0.5 L (1.0-4.8) k/uL PT (9.0-12.0) sec INR (<1.2) APTT (22.0-30.0) sec ABG pCO2 20 L (35-45) mmHg ABG pO2 142 H (83-108) mmHg ABG HCO3 13 L (21-25) mmol/L ABG Total CO2 14 L (19-24) mmol/L ABG O2 Saturation 99.3 H (94-97) % ABG Lactic Acid (0.5-1.6) mmol/L Sodium 127 L (137-145) mmol/L Potassium (3.5-5.1) mmol/L Carbon Dioxide 12 L (22-30) mmol/L Glucose 240 H (74-99) mg/dL POC Glucose (mg/dL) (70-110) mg/dL Plasma Lactic Acid Hayden (0.7-2.0) mmol/L Calcium 6.4 L* (8.4-10.2) mg/dL Magnesium (1.6-2.3) mg/dL Iron (65-175) ug/dL TIBC (228-460) ug/dL % Saturation (15.00-50.00) Transferrin (204.0-354.0) mg/dL Alkaline Phosphatase 202 H (38-126) U/L Total Protein 4.0 L (6.3-8.2) g/dL Albumin 1.7 L (3.5-5.0) g/dL 01/06/22 01/06/22 01/06/22 Range/Units 17:53 18:27 19:00 RBC (4.30-5.90) m/uL Hgb (13.0-17.5) gm/dL Hct (39.0-53.0) % RDW (11.5-15.5) % Neutrophils # (1.3-7.7) k/uL Lymphocytes # (1.0-4.8) k/uL PT (9.0-12.0) sec INR (<1.2) APTT 140.4 H* (22.0-30.0) sec ABG pCO2 (35-45) mmHg ABG pO2 (83-108) mmHg ABG HCO3 (21-25) mmol/L ABG Total CO2 (19-24) mmol/L ABG O2 Saturation (94-97) % ABG Lactic Acid 6.0 H* (0.5-1.6) mmol/L Sodium (137-145) mmol/L Potassium (3.5-5.1) mmol/L Carbon Dioxide (22-30) mmol/L Glucose (74-99) mg/dL POC Glucose (mg/dL) (70-110) mg/dL Plasma Lactic Acid Hayden (0.7-2.0) mmol/L Calcium (8.4-10.2) mg/dL Magnesium 1.5 L (1.6-2.3) mg/dL Iron (65-175) ug/dL TIBC (228-460) ug/dL % Saturation (15.00-50.00) Transferrin (204.0-354.0) mg/dL Alkaline Phosphatase (38-126) U/L Total Protein (6.3-8.2) g/dL Albumin (3.5-5.0) g/dL 01/06/22 01/07/22 01/07/22 Range/Units 22:00 00:10 04:10 RBC (4.30-5.90) m/uL Hgb (13.0-17.5) gm/dL Hct (39.0-53.0) % RDW (11.5-15.5) % Neutrophils # (1.3-7.7) k/uL Lymphocytes # (1.0-4.8) k/uL PT 17.1 H (9.0-12.0) sec INR 1.7 H (<1.2) APTT 73.9 H (22.0-30.0) sec ABG pCO2 (35-45) mmHg ABG pO2 (83-108) mmHg ABG HCO3 (21-25) mmol/L ABG Total CO2 (19-24) mmol/L ABG O2 Saturation (94-97) % ABG Lactic Acid (0.5-1.6) mmol/L Sodium 129 L (137-145) mmol/L Potassium 3.4 L (3.5-5.1) mmol/L Carbon Dioxide 13 L (22-30) mmol/L Glucose 249 H (74-99) mg/dL POC Glucose (mg/dL) 289 H (70-110) mg/dL Plasma Lactic Acid Hayden (0.7-2.0) mmol/L Calcium 6.4 L* (8.4-10.2) mg/dL Magnesium (1.6-2.3) mg/dL Iron (65-175) ug/dL TIBC (228-460) ug/dL % Saturation (15.00-50.00) Transferrin (204.0-354.0) mg/dL Alkaline Phosphatase 203 H (38-126) U/L Total Protein 3.9 L (6.3-8.2) g/dL Albumin 1.6 L (3.5-5.0) g/dL 01/07/22 01/07/22 01/07/22 Range/Units 05:15 05:15 05:15 RBC (4.30-5.90) m/uL Hgb (13.0-17.5) gm/dL Hct (39.0-53.0) % RDW (11.5-15.5) % Neutrophils # (1.3-7.7) k/uL Lymphocytes # (1.0-4.8) k/uL PT (9.0-12.0) sec INR (<1.2) APTT (22.0-30.0) sec ABG pCO2 (35-45) mmHg ABG pO2 (83-108) mmHg ABG HCO3 (21-25) mmol/L ABG Total CO2 (19-24) mmol/L ABG O2 Saturation (94-97) % ABG Lactic Acid (0.5-1.6) mmol/L Sodium 130 L (137-145) mmol/L Potassium (3.5-5.1) mmol/L Carbon Dioxide 16 L (22-30) mmol/L Glucose 197 H (74-99) mg/dL POC Glucose (mg/dL) (70-110) mg/dL Plasma Lactic Acid Hayden 3.8 H* (0.7-2.0) mmol/L Calcium 6.8 L (8.4-10.2) mg/dL Magnesium (1.6-2.3) mg/dL Iron 55 L (65-175) ug/dL TIBC 59 L (228-460) ug/dL % Saturation 94.33 H (15.00-50.00) Transferrin 41.8 L (204.0-354.0) mg/dL Alkaline Phosphatase 238 H (38-126) U/L Total Protein 4.2 L (6.3-8.2) g/dL Albumin 1.8 L (3.5-5.0) g/dL 01/07/22 01/07/22 01/07/22 Range/Units 05:15 06:29 10:25 RBC 3.64 L (4.30-5.90) m/uL Hgb 9.8 L (13.0-17.5) gm/dL Hct 30.3 L (39.0-53.0) % RDW 18.5 H (11.5-15.5) % Neutrophils # 8.7 H (1.3-7.7) k/uL Lymphocytes # (1.0-4.8) k/uL PT (9.0-12.0) sec INR (<1.2) APTT 48.1 H (22.0-30.0) sec ABG pCO2 (35-45) mmHg ABG pO2 (83-108) mmHg ABG HCO3 (21-25) mmol/L ABG Total CO2 (19-24) mmol/L ABG O2 Saturation (94-97) % ABG Lactic Acid (0.5-1.6) mmol/L Sodium (137-145) mmol/L Potassium (3.5-5.1) mmol/L Carbon Dioxide (22-30) mmol/L Glucose (74-99) mg/dL POC Glucose (mg/dL) 231 H (70-110) mg/dL Plasma Lactic Acid Hayden (0.7-2.0) mmol/L Calcium (8.4-10.2) mg/dL Magnesium (1.6-2.3) mg/dL Iron (65-175) ug/dL TIBC (228-460) ug/dL % Saturation (15.00-50.00) Transferrin (204.0-354.0) mg/dL Alkaline Phosphatase (38-126) U/L Total Protein (6.3-8.2) g/dL Albumin (3.5-5.0) g/dL Microbiology - Last 24 Hours (Table) 01/06/22 02:25 Blood Culture - Preliminary Blood No Growth after 24 hours 01/05/22 18:30 Blood Culture - Preliminary Blood No Growth after 24 hours - Imaging and Cardiology Venous US: report reviewed Assessment and Plan (1) DVT (deep venous thrombosis) Current Visit: Yes Status: Acute Priority: High Code(s): I82.409 - ACUTE EMBOLISM AND THOMBOS UNSP DEEP VN UNSP LOWER EXTREMITY SNOMED Code(s): 447807950 (2) Anemia Current Visit: Yes Status: Chronic Priority: High Code(s): D64.9 - ANEMIA, UNSPECIFIED SNOMED Code(s): 724374053 Plan: No bleeding reported. No oozing around lines. Hgb cont to be stable without precipitous drops. Pt was changed to oral anticoagulant today as he is alert and able to take meds. Treatment dose eliquis with loading dose ordered. Cont to monitor CBC and assess for bleeding 1 dose of vit K ordered for INR of 1.7 factor Xa activity ordered to rule out concerns for issues with metabolism of lovenox leading to bleedin/oozing.
[2022-01-07] MEDS ORDERED: FUROSEMIDE 10 MG/ML 10 ML VIAL IV ONE (14:30)
--- NOTE | 2022-01-07 16:18 | P.PN ---
Subjective Progress Note Date: 01/05/22 Principal diagnosis: Possible abscess Patient is a 61-year-old male with multiple comorbidities including COPD diabetes hypertension in this patient who did have open cholecystectomy for gangrenous cholecystitis on 09/17/2021, subsequently admitted to the hospital for not eating and drinking and placement of a PEG tube patient also have a CT abdominal pelvis as well as ultrasound suspicious for fluid collection in the gallbladder fossa concerning for seroma versus abscess. On today's evaluation that is 01/05/2022, the patient is afebrile the patient did have significant hypotension requiring transfer to the ICU, the patient is currently lethargic but arousable and denies any chest pain no abdominal pain no vomiting or diarrhea Objective - Vital Signs Vital signs: Vital Signs Temp 97.3 F L 01/05/22 07:33 Pulse 115 H 01/05/22 08:00 Resp 16 01/05/22 08:00 BP 103/56 01/05/22 07:33 Pulse Ox 98 01/05/22 07:33 FiO2 28 01/02/22 16:04 Intake & Output 01/04/22 01/05/22 01/05/22 18:59 06:59 18:59 Intake Total 10 310 Balance 10 310 Weight 87.543 kg Intake: IV 10 10 Invasive Line 2 10 10 Oral 300 Other: Voiding Method External Catheter Urinal # Bowel Movements 1 - Exam GENERAL DESCRIPTION: Middle-aged male lying in bed in no distress RESPIRATORY SYSTEM: Unlabored breathing , decreased breath sounds at bases HEART: S1 S2 regular rate and rhythm , ABDOMEN: Soft , no tenderness EXTREMITIES: One plus edema feet - Labs CBC & Chem 7: 01/07/22 05:15 01/07/22 10:25 Labs: Abnormal Lab Results - Last 24 Hours (Table) 01/04/22 01/04/22 01/04/22 Range/Units 10:06 14:16 16:04 RBC 3.74 L (4.30-5.90) m/uL Hgb 10.1 L (13.0-17.5) gm/dL Hct 31.8 L (39.0-53.0) % RDW 17.4 H (11.5-15.5) % Lymphocytes # (1.0-4.8) k/uL PT (9.0-12.0) sec INR (<1.2) Sodium (137-145) mmol/L Potassium (3.5-5.1) mmol/L Chloride (98-107) mmol/L Carbon Dioxide (22-30) mmol/L Calcium (8.4-10.2) mg/dL Procalcitonin 0.23 H (0.02-0.09) ng/mL Ur Random Sodium <20 L (40-220) mmol/L 01/04/22 01/05/22 01/05/22 Range/Units 16:04 03:06 09:01 RBC 3.40 L (4.30-5.90) m/uL Hgb 9.6 L (13.0-17.5) gm/dL Hct 28.3 L (39.0-53.0) % RDW 17.8 H (11.5-15.5) % Lymphocytes # 0.9 L (1.0-4.8) k/uL PT (9.0-12.0) sec INR (<1.2) Sodium 121 L 123 L (137-145) mmol/L Potassium 6.4 H* (3.5-5.1) mmol/L Chloride (98-107) mmol/L Carbon Dioxide 13 L (22-30) mmol/L Calcium (8.4-10.2) mg/dL Procalcitonin (0.02-0.09) ng/mL Ur Random Sodium (40-220) mmol/L 01/05/22 01/05/22 Range/Units 09:01 09:01 RBC (4.30-5.90) m/uL Hgb (13.0-17.5) gm/dL Hct (39.0-53.0) % RDW (11.5-15.5) % Lymphocytes # (1.0-4.8) k/uL PT 13.3 H (9.0-12.0) sec INR 1.3 H (<1.2) Sodium 119 L* (137-145) mmol/L Potassium (3.5-5.1) mmol/L Chloride 97 L (98-107) mmol/L Carbon Dioxide 16 L (22-30) mmol/L Calcium 7.1 L (8.4-10.2) mg/dL Procalcitonin (0.02-0.09) ng/mL Ur Random Sodium (40-220) mmol/L Assessment and Plan (1) Abnormal abdominal CT scan Current Visit: Yes Status: Acute Code(s): R93.5 - ABN FINDINGS ON DX IMAGING OF ABD REGIONS, INC RETROPERITON SNOMED Code(s): 89638266307534736 (2) Hypotension Current Visit: No Status: Acute Code(s): I95.9 - HYPOTENSION, UNSPECIFIED SNOMED Code(s): 89123905 Plan: 1patient with abnormal CT as well as ultrasound of the liver gallbladder area concerning for possible fluid collection in the gallbladder. In this patient who did have a history of gangrenous cholecystitis s/p cholecystectomy on 09/17/2021 with concern for possible postop seroma versus abscess, patient is clinically not behaving as an abscess with no fever or elevated white count. 2detailed discussion with IR on 01/04/2022 and with high risk for any percutaneous intervention 3 patient now significant hypotension and has been transferred to ICU culture has been obtained and the patient started on broad-spectrum antibiotic to continue Time with Patient: Less than 30
--- NOTE | 2022-01-07 16:21 | P.PN ---
Subjective Progress Note Date: 01/06/22 Principal diagnosis: Possible abscess Patient is a 61-year-old male with multiple comorbidities including COPD diabetes hypertension in this patient who did have open cholecystectomy for gangrenous cholecystitis on 09/17/2021, subsequently admitted to the hospital for not eating and drinking and placement of a PEG tube patient also have a CT abdominal pelvis as well as ultrasound suspicious for fluid collection in the gallbladder fossa concerning for seroma versus abscess. On today's evaluation that is 01/06/2022, the patient continues to be afebrile the patient is still hypotensive requiring pressor support, the patient is more awake and alert today, the patient denies any chest pain shortness of breath or cough no abdominal pain no diarrhea Objective - Vital Signs Vital signs: Vital Signs Temp 97.6 F 01/06/22 12:00 Pulse 120 H 01/06/22 12:00 Resp 21 01/06/22 12:00 BP 125/100 01/06/22 12:00 Pulse Ox 97 01/06/22 12:00 FiO2 28 01/02/22 16:04 Intake & Output 01/05/22 01/06/22 01/06/22 18:59 06:59 18:59 Intake Total 310 6133.579 1409.775 Output Total 235 42 Balance 310 5898.579 1367.775 Weight 106 kg Intake: IV 10 5750 1020 0.9 NACL 220 120 0.9 bolus 1500 Invasive Line 2 10 30 Sodium Chloride 0.45% 1, 1650 900 000 ml @ 150 mls/hr IV . Q7H40M [facility] with Sodium Bicarb (1 Meq/ml) 150 ml Rx#:[id number] Sodium Chloride 0.9% 2, 2000 000 ml @ 999 mls/hr IV . Q2H1M [facility] Rx#:[id number] vancomycin 250 zosyn 100 Intake, IV Titration 383.579 139.775 Amount Heparin Sod,Pork in 0.45% 125.579 26.002 NaCl 25,000 unit In 0.45 % NaCl 1 250ml.bag @ 18 UNITS/KG/HR 15.758 mls/hr IV .[id number] [facility] Rx#: [id number] Norepinephrine 32 mg In 113.773 Sodium Chloride 0.9% 218 ml @ 0.5 MCG/KG/MIN 20. 518 mls/hr IV .[id number] [facility] Rx#:[id number] Norepinephrine 8 mg In 258.000 Sodium Chloride 0.9% 250 ml @ 0.05 MCG/KG/MIN 8.47 mls/hr IV .Q24H [facility] Rx#: [id number] Oral 300 250 Output: Urine 235 42 Other: Voiding Method Urinal Indwelling Catheter Indwelling Catheter # Bowel Movements 1 2 ABP, PAP, CO, CI - Last Documented Arterial Blood Pressure 101/60 - Exam GENERAL DESCRIPTION: Middle-aged male lying in bed in no distress RESPIRATORY SYSTEM: Unlabored breathing , decreased breath sounds at bases HEART: S1 S2 regular rate and rhythm , ABDOMEN: Soft , no tenderness EXTREMITIES: One plus edema feet - Labs CBC & Chem 7: 01/07/22 05:15 01/07/22 10:25 Labs: Abnormal Lab Results - Last 24 Hours (Table) 01/05/22 01/05/22 01/05/22 Range/Units 09:01 18:30 18:30 RBC 3.27 L (4.30-5.90) m/uL Hgb 9.1 L (13.0-17.5) gm/dL Hct 27.3 L (39.0-53.0) % RDW 18.0 H (11.5-15.5) % Neutrophils # (1.3-7.7) k/uL Lymphocytes # (1.0-4.8) k/uL Retic Count 0.3 L (0.5-2.0) % PT 14.1 H (9.0-12.0) sec INR 1.4 H (<1.2) APTT 47.2 H (22.0-30.0) sec ABG pCO2 (35-45) mmHg ABG pO2 (83-108) mmHg ABG HCO3 (21-25) mmol/L ABG O2 Saturation (94-97) % ABG Lactic Acid (0.5-1.6) mmol/L Sodium (137-145) mmol/L Potassium (3.5-5.1) mmol/L Carbon Dioxide (22-30) mmol/L Glucose (74-99) mg/dL POC Glucose (mg/dL) (70-110) mg/dL Plasma Lactic Acid Hayden (0.7-2.0) mmol/L Calcium (8.4-10.2) mg/dL Magnesium (1.6-2.3) mg/dL Alkaline Phosphatase (38-126) U/L Total Protein (6.3-8.2) g/dL Albumin (3.5-5.0) g/dL Procalcitonin 0.30 H (0.02-0.09) ng/mL 01/05/22 01/05/22 01/05/22 Range/Units 18:30 18:40 20:50 RBC (4.30-5.90) m/uL Hgb (13.0-17.5) gm/dL Hct (39.0-53.0) % RDW (11.5-15.5) % Neutrophils # (1.3-7.7) k/uL Lymphocytes # (1.0-4.8) k/uL Retic Count (0.5-2.0) % PT (9.0-12.0) sec INR (<1.2) APTT (22.0-30.0) sec ABG pCO2 27 L (35-45) mmHg ABG pO2 120 H (83-108) mmHg ABG HCO3 19 L (21-25) mmol/L ABG O2 Saturation 99.1 H (94-97) % ABG Lactic Acid (0.5-1.6) mmol/L Sodium 122 L (137-145) mmol/L Potassium 3.1 L (3.5-5.1) mmol/L Carbon Dioxide 17 L (22-30) mmol/L Glucose 151 H (74-99) mg/dL POC Glucose (mg/dL) (70-110) mg/dL Plasma Lactic Acid Hayden (0.7-2.0) mmol/L Calcium 6.4 L* (8.4-10.2) mg/dL Magnesium (1.6-2.3) mg/dL Alkaline Phosphatase (38-126) U/L Total Protein (6.3-8.2) g/dL Albumin (3.5-5.0) g/dL Procalcitonin 0.33 H (0.02-0.09) ng/mL 01/05/22 01/05/22 01/06/22 Range/Units 23:08 23:10 04:00 RBC 3.23 L (4.30-5.90) m/uL Hgb 9.1 L (13.0-17.5) gm/dL Hct 27.1 L (39.0-53.0) % RDW 17.9 H (11.5-15.5) % Neutrophils # 7.8 H (1.3-7.7) k/uL Lymphocytes # 0.8 L (1.0-4.8) k/uL Retic Count (0.5-2.0) % PT (9.0-12.0) sec INR (<1.2) APTT 185.7 H* (22.0-30.0) sec ABG pCO2 (35-45) mmHg ABG pO2 (83-108) mmHg ABG HCO3 (21-25) mmol/L ABG O2 Saturation (94-97) % ABG Lactic Acid (0.5-1.6) mmol/L Sodium (137-145) mmol/L Potassium (3.5-5.1) mmol/L Carbon Dioxide (22-30) mmol/L Glucose (74-99) mg/dL POC Glucose (mg/dL) 185 H (70-110) mg/dL Plasma Lactic Acid Hayden (0.7-2.0) mmol/L Calcium (8.4-10.2) mg/dL Magnesium (1.6-2.3) mg/dL Alkaline Phosphatase (38-126) U/L Total Protein (6.3-8.2) g/dL Albumin (3.5-5.0) g/dL Procalcitonin (0.02-0.09) ng/mL 01/06/22 01/06/22 01/06/22 Range/Units 04:00 04:00 05:27 RBC (4.30-5.90) m/uL Hgb (13.0-17.5) gm/dL Hct (39.0-53.0) % RDW (11.5-15.5) % Neutrophils # (1.3-7.7) k/uL Lymphocytes # (1.0-4.8) k/uL Retic Count (0.5-2.0) % PT 15.7 H (9.0-12.0) sec INR 1.5 H (<1.2) APTT (22.0-30.0) sec ABG pCO2 (35-45) mmHg ABG pO2 (83-108) mmHg ABG HCO3 (21-25) mmol/L ABG O2 Saturation (94-97) % ABG Lactic Acid 2.1 H (0.5-1.6) mmol/L Sodium 125 L (137-145) mmol/L Potassium 3.3 L (3.5-5.1) mmol/L Carbon Dioxide 17 L (22-30) mmol/L Glucose 158 H (74-99) mg/dL POC Glucose (mg/dL) (70-110) mg/dL Plasma Lactic Acid Hayden (0.7-2.0) mmol/L Calcium 6.6 L (8.4-10.2) mg/dL Magnesium 1.5 L (1.6-2.3) mg/dL Alkaline Phosphatase 179 H (38-126) U/L Total Protein 4.0 L (6.3-8.2) g/dL Albumin 1.7 L (3.5-5.0) g/dL Procalcitonin (0.02-0.09) ng/mL 01/06/22 01/06/22 01/06/22 Range/Units 05:50 12:02 12:02 RBC (4.30-5.90) m/uL Hgb (13.0-17.5) gm/dL Hct (39.0-53.0) % RDW (11.5-15.5) % Neutrophils # (1.3-7.7) k/uL Lymphocytes # (1.0-4.8) k/uL Retic Count (0.5-2.0) % PT (9.0-12.0) sec INR (<1.2) APTT >200.0 H* (22.0-30.0) sec ABG pCO2 (35-45) mmHg ABG pO2 (83-108) mmHg ABG HCO3 (21-25) mmol/L ABG O2 Saturation (94-97) % ABG Lactic Acid (0.5-1.6) mmol/L Sodium 128 L (137-145) mmol/L Potassium 3.4 L (3.5-5.1) mmol/L Carbon Dioxide (22-30) mmol/L Glucose (74-99) mg/dL POC Glucose (mg/dL) (70-110) mg/dL Plasma Lactic Acid Hayden 4.4 H* (0.7-2.0) mmol/L Calcium (8.4-10.2) mg/dL Magnesium (1.6-2.3) mg/dL Alkaline Phosphatase (38-126) U/L Total Protein (6.3-8.2) g/dL Albumin (3.5-5.0) g/dL Procalcitonin (0.02-0.09) ng/mL 01/06/22 Range/Units 12:02 RBC (4.30-5.90) m/uL Hgb (13.0-17.5) gm/dL Hct (39.0-53.0) % RDW (11.5-15.5) % Neutrophils # (1.3-7.7) k/uL Lymphocytes # (1.0-4.8) k/uL Retic Count (0.5-2.0) % PT (9.0-12.0) sec INR (<1.2) APTT 196.7 H* (22.0-30.0) sec ABG pCO2 (35-45) mmHg ABG pO2 (83-108) mmHg ABG HCO3 (21-25) mmol/L ABG O2 Saturation (94-97) % ABG Lactic Acid (0.5-1.6) mmol/L Sodium (137-145) mmol/L Potassium (3.5-5.1) mmol/L Carbon Dioxide (22-30) mmol/L Glucose (74-99) mg/dL POC Glucose (mg/dL) (70-110) mg/dL Plasma Lactic Acid Hayden (0.7-2.0) mmol/L Calcium (8.4-10.2) mg/dL Magnesium (1.6-2.3) mg/dL Alkaline Phosphatase (38-126) U/L Total Protein (6.3-8.2) g/dL Albumin (3.5-5.0) g/dL Procalcitonin (0.02-0.09) ng/mL Assessment and Plan (1) Abnormal abdominal CT scan Current Visit: Yes Status: Acute Code(s): R93.5 - ABN FINDINGS ON DX IMAGING OF ABD REGIONS, INC RETROPERITON SNOMED Code(s): 22209375716367136 (2) Hypotension Current Visit: No Status: Acute Code(s): I95.9 - HYPOTENSION, UNSPECIFIED SNOMED Code(s): 47266900 Plan: 1patient with abnormal CT as well as ultrasound of the liver gallbladder area concerning for possible fluid collection in the gallbladder. In this patient who did have a history of gangrenous cholecystitis s/p cholecystectomy on 09/17/2021 with concern for possible postop seroma versus abscess, patient is clinically not behaving as an abscess with no fever or elevated white count. 2detailed discussion with IR on 01/04/2022 and with high risk for any percutaneous intervention 3 patient subsequently did have significant hypotension and has been transferred to ICU culture has been obtained which are pending so for patient to continue with the vancomycin and Zosyn while watching kidney function closely Time with Patient: Less than 30
--- NOTE | 2022-01-07 16:22 | P.PN ---
Subjective Progress Note Date: 01/07/22 Principal diagnosis: Possible abscess Patient is a 61-year-old male with multiple comorbidities including COPD diabetes hypertension in this patient who did have open cholecystectomy for gangrenous cholecystitis on 09/17/2021, subsequently admitted to the hospital for not eating and drinking and placement of a PEG tube patient also have a CT abdominal pelvis as well as ultrasound suspicious for fluid collection in the gallbladder fossa concerning for seroma versus abscess. On today's evaluation that is 01/07/2022, the patient denies any fever or chills, the patient is still hypotensive however is requiring less pressor support for the nursing staff, the patient is breathing comfortably on nasal cannula oxygen, the patient denies any chest pain shortness of breath or cough no abdominal pain no diarrhea Objective - Vital Signs Vital signs: Vital Signs Temp 98.1 F 01/07/22 12:00 Pulse 110 H 01/07/22 13:00 Resp 18 01/07/22 13:00 BP 97/82 01/07/22 13:00 Pulse Ox 100 01/07/22 13:00 FiO2 28 01/02/22 16:04 Intake & Output 01/06/22 01/07/22 01/07/22 18:59 06:59 18:59 Intake Total 4716.263 2880.517 934.433 Output Total 157 115 70 Balance 4559.263 2765.517 864.433 Weight 113.5 kg 113.5 kg Intake: IV 3220 1796 757 0.45 w/ bicarb 1100 450 0.9 NACL 220 180 140 0.9 bolus 2000 Sodium Chloride 0.45% 1, 900 000 ml @ 50 mls/hr IV . Q23H ERINN with Sodium Bicarb (1 Meq/ml) 150 ml Rx#:[id number] pressure bags 66 42 vancomycin 250 125 zosyn 100 200 Intake, IV Titration 8871.234 8023.517 177.433 Amount Calcium Gluconate in NaCl 100 1 gm In Saline 1 100ml. bag @ 100 mls/hr IVPB ONCE ONE Rx#:[id number] Calcium Gluconate in NaCl 100 2 gm In Saline 1 100ml. bag @ 100 mls/hr IVPB ONCE ONE Rx#:[id number] Cefepime 2 gm In Sodium 100 Chloride 0.9% 100 ml @ 25 mls/hr IVPB Q8HR ERINN Rx# :[id number] Heparin Sod,Pork in 0.45% 26.002 60.343 NaCl 25,000 unit In 0.45 % NaCl 1 250ml.bag @ 18 UNITS/KG/HR 15.758 mls/hr IV .[id number] ERINN Rx#: [id number] Magnesium Sulfate-D5w Pmx 200 100 1 gm In Dextrose/Water 1 100ml.bag @ 100 mls/hr IVPB Q1H ERINN Rx#: [id number] Norepinephrine 32 mg In 220.261 316.079 77.433 Sodium Chloride 0.9% 218 ml @ 0.5 MCG/KG/MIN 20. 518 mls/hr IV .[id number] ERINN Rx#:[id number] Potassium Chloride 10 meq 200 In Water For Injection 1 100ml.bag @ 100 mls/hr IVPB ONCE ONE Rx#: [id number] Potassium Chloride 20 meq 200 In Water For Injection 1 100ml.bag @ 50 mls/hr IVPB Q2H ERINN Rx#: [id number] Sodium Chloride 0.45% 1, 600 100 000 ml @ 50 mls/hr IV . Q23H ERINN with Sodium Bicarb (1 Meq/ml) 150 ml Rx#:[id number] Sodium Chloride 0.9% 150 108.095 ml @ 0.03 UNITS/MIN 4.59 mls/hr IV .Q24H ERINN with Vasopressin 60 unit Rx#: [id number] Oral 250 Output: Urine 157 115 70 Other: Voiding Method Indwelling Catheter Indwelling Catheter Indwelling Catheter # Bowel Movements 1 ABP, PAP, CO, CI - Last Documented Arterial Blood Pressure 103/63 - Exam GENERAL DESCRIPTION: Middle-aged male lying in bed in no distress RESPIRATORY SYSTEM: Unlabored breathing , decreased breath sounds at bases HEART: S1 S2 regular rate and rhythm , ABDOMEN: Soft , no tenderness EXTREMITIES: One plus edema feet - Labs CBC & Chem 7: 01/07/22 05:15 01/07/22 10:25 Labs: Abnormal Lab Results - Last 24 Hours (Table) 01/06/22 01/06/22 01/06/22 Range/Units 16:38 16:40 17:53 RBC 3.43 L (4.30-5.90) m/uL Hgb 9.5 L (13.0-17.5) gm/dL Hct 29.2 L (39.0-53.0) % RDW 18.4 H (11.5-15.5) % Neutrophils # (1.3-7.7) k/uL Lymphocytes # 0.5 L (1.0-4.8) k/uL PT (9.0-12.0) sec INR (<1.2) APTT (22.0-30.0) sec ABG pCO2 20 L (35-45) mmHg ABG pO2 142 H (83-108) mmHg ABG HCO3 13 L (21-25) mmol/L ABG Total CO2 14 L (19-24) mmol/L ABG O2 Saturation 99.3 H (94-97) % ABG Lactic Acid (0.5-1.6) mmol/L Sodium 127 L (137-145) mmol/L Potassium (3.5-5.1) mmol/L Carbon Dioxide 12 L (22-30) mmol/L Glucose 240 H (74-99) mg/dL POC Glucose (mg/dL) (70-110) mg/dL Plasma Lactic Acid Hayden (0.7-2.0) mmol/L Calcium 6.4 L* (8.4-10.2) mg/dL Magnesium (1.6-2.3) mg/dL Iron (65-175) ug/dL TIBC (228-460) ug/dL % Saturation (15.00-50.00) Transferrin (204.0-354.0) mg/dL Alkaline Phosphatase 202 H (38-126) U/L Total Protein 4.0 L (6.3-8.2) g/dL Albumin 1.7 L (3.5-5.0) g/dL 01/06/22 01/06/22 01/06/22 Range/Units 17:53 18:27 19:00 RBC (4.30-5.90) m/uL Hgb (13.0-17.5) gm/dL Hct (39.0-53.0) % RDW (11.5-15.5) % Neutrophils # (1.3-7.7) k/uL Lymphocytes # (1.0-4.8) k/uL PT (9.0-12.0) sec INR (<1.2) APTT 140.4 H* (22.0-30.0) sec ABG pCO2 (35-45) mmHg ABG pO2 (83-108) mmHg ABG HCO3 (21-25) mmol/L ABG Total CO2 (19-24) mmol/L ABG O2 Saturation (94-97) % ABG Lactic Acid 6.0 H* (0.5-1.6) mmol/L Sodium (137-145) mmol/L Potassium (3.5-5.1) mmol/L Carbon Dioxide (22-30) mmol/L Glucose (74-99) mg/dL POC Glucose (mg/dL) (70-110) mg/dL Plasma Lactic Acid Hayden (0.7-2.0) mmol/L Calcium (8.4-10.2) mg/dL Magnesium 1.5 L (1.6-2.3) mg/dL Iron (65-175) ug/dL TIBC (228-460) ug/dL % Saturation (15.00-50.00) Transferrin (204.0-354.0) mg/dL Alkaline Phosphatase (38-126) U/L Total Protein (6.3-8.2) g/dL Albumin (3.5-5.0) g/dL 01/06/22 01/07/22 01/07/22 Range/Units 22:00 00:10 04:10 RBC (4.30-5.90) m/uL Hgb (13.0-17.5) gm/dL Hct (39.0-53.0) % RDW (11.5-15.5) % Neutrophils # (1.3-7.7) k/uL Lymphocytes # (1.0-4.8) k/uL PT 17.1 H (9.0-12.0) sec INR 1.7 H (<1.2) APTT 73.9 H (22.0-30.0) sec ABG pCO2 (35-45) mmHg ABG pO2 (83-108) mmHg ABG HCO3 (21-25) mmol/L ABG Total CO2 (19-24) mmol/L ABG O2 Saturation (94-97) % ABG Lactic Acid (0.5-1.6) mmol/L Sodium 129 L (137-145) mmol/L Potassium 3.4 L (3.5-5.1) mmol/L Carbon Dioxide 13 L (22-30) mmol/L Glucose 249 H (74-99) mg/dL POC Glucose (mg/dL) 289 H (70-110) mg/dL Plasma Lactic Acid Hayden (0.7-2.0) mmol/L Calcium 6.4 L* (8.4-10.2) mg/dL Magnesium (1.6-2.3) mg/dL Iron (65-175) ug/dL TIBC (228-460) ug/dL % Saturation (15.00-50.00) Transferrin (204.0-354.0) mg/dL Alkaline Phosphatase 203 H (38-126) U/L Total Protein 3.9 L (6.3-8.2) g/dL Albumin 1.6 L (3.5-5.0) g/dL 01/07/22 01/07/22 01/07/22 Range/Units 05:15 05:15 05:15 RBC (4.30-5.90) m/uL Hgb (13.0-17.5) gm/dL Hct (39.0-53.0) % RDW (11.5-15.5) % Neutrophils # (1.3-7.7) k/uL Lymphocytes # (1.0-4.8) k/uL PT (9.0-12.0) sec INR (<1.2) APTT (22.0-30.0) sec ABG pCO2 (35-45) mmHg ABG pO2 (83-108) mmHg ABG HCO3 (21-25) mmol/L ABG Total CO2 (19-24) mmol/L ABG O2 Saturation (94-97) % ABG Lactic Acid (0.5-1.6) mmol/L Sodium 130 L (137-145) mmol/L Potassium (3.5-5.1) mmol/L Carbon Dioxide 16 L (22-30) mmol/L Glucose 197 H (74-99) mg/dL POC Glucose (mg/dL) (70-110) mg/dL Plasma Lactic Acid Hayden 3.8 H* (0.7-2.0) mmol/L Calcium 6.8 L (8.4-10.2) mg/dL Magnesium (1.6-2.3) mg/dL Iron 55 L (65-175) ug/dL TIBC 59 L (228-460) ug/dL % Saturation 94.33 H (15.00-50.00) Transferrin 41.8 L (204.0-354.0) mg/dL Alkaline Phosphatase 238 H (38-126) U/L Total Protein 4.2 L (6.3-8.2) g/dL Albumin 1.8 L (3.5-5.0) g/dL 01/07/22 01/07/22 01/07/22 Range/Units 05:15 06:29 10:25 RBC 3.64 L (4.30-5.90) m/uL Hgb 9.8 L (13.0-17.5) gm/dL Hct 30.3 L (39.0-53.0) % RDW 18.5 H (11.5-15.5) % Neutrophils # 8.7 H (1.3-7.7) k/uL Lymphocytes # (1.0-4.8) k/uL PT (9.0-12.0) sec INR (<1.2) APTT 48.1 H (22.0-30.0) sec ABG pCO2 (35-45) mmHg ABG pO2 (83-108) mmHg ABG HCO3 (21-25) mmol/L ABG Total CO2 (19-24) mmol/L ABG O2 Saturation (94-97) % ABG Lactic Acid (0.5-1.6) mmol/L Sodium (137-145) mmol/L Potassium (3.5-5.1) mmol/L Carbon Dioxide (22-30) mmol/L Glucose (74-99) mg/dL POC Glucose (mg/dL) 231 H (70-110) mg/dL Plasma Lactic Acid Hayden (0.7-2.0) mmol/L Calcium (8.4-10.2) mg/dL Magnesium (1.6-2.3) mg/dL Iron (65-175) ug/dL TIBC (228-460) ug/dL % Saturation (15.00-50.00) Transferrin (204.0-354.0) mg/dL Alkaline Phosphatase (38-126) U/L Total Protein (6.3-8.2) g/dL Albumin (3.5-5.0) g/dL 01/07/22 Range/Units 12:37 RBC (4.30-5.90) m/uL Hgb (13.0-17.5) gm/dL Hct (39.0-53.0) % RDW (11.5-15.5) % Neutrophils # (1.3-7.7) k/uL Lymphocytes # (1.0-4.8) k/uL PT (9.0-12.0) sec INR (<1.2) APTT (22.0-30.0) sec ABG pCO2 (35-45) mmHg ABG pO2 (83-108) mmHg ABG HCO3 (21-25) mmol/L ABG Total CO2 (19-24) mmol/L ABG O2 Saturation (94-97) % ABG Lactic Acid (0.5-1.6) mmol/L Sodium (137-145) mmol/L Potassium (3.5-5.1) mmol/L Carbon Dioxide (22-30) mmol/L Glucose (74-99) mg/dL POC Glucose (mg/dL) 208 H (70-110) mg/dL Plasma Lactic Acid Hayden (0.7-2.0) mmol/L Calcium (8.4-10.2) mg/dL Magnesium (1.6-2.3) mg/dL Iron (65-175) ug/dL TIBC (228-460) ug/dL % Saturation (15.00-50.00) Transferrin (204.0-354.0) mg/dL Alkaline Phosphatase (38-126) U/L Total Protein (6.3-8.2) g/dL Albumin (3.5-5.0) g/dL Microbiology - Last 24 Hours (Table) 01/06/22 02:25 Blood Culture - Preliminary Blood No Growth after 24 hours 01/05/22 18:30 Blood Culture - Preliminary Blood No Growth after 24 hours Assessment and Plan (1) Abnormal abdominal CT scan Current Visit: Yes Status: Acute Code(s): R93.5 - ABN FINDINGS ON DX IMAGING OF ABD REGIONS, INC RETROPERITON SNOMED Code(s): 83537868001580913 (2) Hypotension Current Visit: No Status: Acute Code(s): I95.9 - HYPOTENSION, UNSPECIFIED SNOMED Code(s): 43122210 Plan: 1patient with abnormal CT as well as ultrasound of the liver gallbladder area concerning for possible fluid collection in the gallbladder. In this patient who did have a history of gangrenous cholecystitis s/p cholecystectomy on 09/17/2021 with concern for possible postop seroma versus abscess, patient is clinically not behaving as an abscess with no fever or elevated white count. 2detailed discussion with IR on 01/04/2022 and with high risk for any perc utaneous intervention 3 patient subsequently did have significant hypotension and has been transfer red to ICU culture has been obtained which are negative so for 4- we will continue with the Zosyn however discontinue vancomycin to decrease risk of nephrotoxicity Family the bedside multiple questions were answered Time with Patient: Less than 30
[2022-01-07 17:16] LABS: Calcium 6.5 mg/dL (8.4-10.2); Potassium 3.6 mmol/L (3.5-5.1)
[2022-01-07] MEDS ORDERED: VANCOMYCIN TROUGH DUE 1 EACH MISC MISCELLANE ONE (18:00)
[2022-01-07 18:12] LABS: Glucose,Whole Blood 231 mg/dL (70-110)
[2022-01-07] MEDS ORDERED: CALCIUM GLUCONATE IN NACL 2 GM in SALINE 1 100ML.BAG IVPB ONE (18:34)
[2022-01-07] MEDS ORDERED: POTASSIUM CHLORIDE ER 20 MEQ TAB.ER PO STA (18:42)
--- NOTE | 2022-01-07 21:06 | P.PN ---
Subjective this is a pleasant 61 yo M with past medical history of COPD, Diabetes Mellitus, Deep Vein Thrombosis, Hyperlipidemia, Hypertension, Sleep Apnea/CPAP/BIPAP He was in the hospital on 09/2021 for severe hypertension from decreased oral intake, acute metabolic encephalopathy, chronic congestive heart failure, diastolic with ejection fraction 55-60%, acute kidney injury, sinus tachycardia, status post cholecystectomy for his gangrenous cholecystitis, restless leg syndrome, BPH, chronic medical debility i talkled to the pt and at bed side , pt is from longterm , he was longterm since June 2021. At that time she was in the hospital for acute hypoxic respiratory failure of unknown causes. He needed intubation at that time. He had complete opacification in the left hemithorax he had 2 bronchoscopy done which was negative for microbial growth. He has another admission on 09/2021. Patient and states that he came here because he wanted to get the PEG tube because he was not eating anything since June and he lost a lot of weight he used to weigh 333 pounds and now 193. He states that his main issue is no appetite, he denies choking but he has sometimes nausea that prevent him from eating. Is also short of breath with cough and clear yellow phlegm but no chest pain, no abdominal pain. He has loose bowel movement once or twice a week. Also he has unstageable pressure decubitus ulcer status post debridement, he has wound VAC in place. Patient also complaining of from chronic left leg pain and tenderness, he would not allow someone to drop his leg because it hurts a lot. Inspection looks normal, no trauma. Also was complaining from weakness in both lower extremities since June Patient is tachycardic around 110, on admission heart rate was 125 afebrile. His lab reviewed including CBC showed mild anemia of 11.9, rest of CBC is unremarkable. INR is unremarkable at 1.1. Sodium was low at 123. Creatinine normal 0.8. Glucose was low at 66. Chest x-ray: No acute process. 01/02/2022 Last night patient was started on therapeutic dose Lovenox for acute right leg DVT, CT angiography chest and echo could not be done because have no IV access, patient was transferred to a small IV access was obtained in the right upper arm, not good enough for CT of the chest test or aggressive treatment. However IV fluids could be provided. Blood pressure is improved up to 110/68, however patient still tachycardic. Patient could not eat because of severe nausea and vomiting, H time he put something in his monthly follow-up as per bedside nurse, KUB showing some evidence of ileus, surgical team consult obtained. Social evaluation under direct consults are pending. 01/03/2022 Patient awake alert, looks more comfortable than the first taken to the hospital, less tachypneic, he denies any chest pain or abdominal pain. He tried to take small bites of mashed potato yesterday and he could not consume it and he immediately felt to throw up. CT of the chest is negative for PE, he remains on Lovenox for acute right DVT. CT of the abdomen is suspicious for a complex collection possible abscess although it's the size 5 cm diameter 2.7 cm, recommended ultrasound versus MRI, were going to order a liver ultrasound although it is of less sensitivity especially with this patient large body habitus however it is less invasive than MRI. Also flowcalcitonin is the slightly elevated. He is slightly tachycardic although is better than before. Blood pressure 93/63. Today sodium dropped 127 down to 122 because of this we held his IV fluids and reordered anemia workup in the urine and the serum, we will monitor his sodium level tomorrow if no improvement and may consider further workup. Surgical team consult is called, the plan for PEG tube placement on . Patient originally came to the hospital the PEG tube placement. Patient is not consuming his oral medication but we stopped his gabapentin and ropinirole. 01/04/2022 Kirsten Bach feels better today, he does not feel dizziness while he is lying in bed all the time. He still have low appetite but no chest pain or dyspnea, no abdominal pain. He still complaining from pain in his legs and he has right leg DVT been on Lovenox with plan to switch him to heparin drip on today as he got midline Blood pressure is 87/56, heart rate 120, sodium is 121 On admission his sodium was still low and was started on D5 normal saline at 100 mL/h however after initial improvement sodium dropped to 121 yesterday so we held his IV fluid and the evening sodium improved 124 (no iv lasix given), however this morning is 121 again. We send urine studies and I'll consult 3rd grade reading teacher. Also patient has negative CTPA for pulmonary embolism but CT of the abdomen and pelvis showing possible gallbladder fossa abscess or complex fluid collection although it is improved from previous 5 cm down to 2.7 centimeters. The recommended liver ultrasound versus MRI, ultrasound shows the same findings. Also surgery due on the case 01/05/2022 Last night his blood pressure dropped with systolic and 50s, there was a rapid response a team response and he was as stated with IV fluids aggressively, his blood pressure improved in 90s this morning and during the round he was awake and alert looks tired but is appropriate. Sodium was 121 and then 119. He denied any chest pain or abdominal pain, no other complaints clinically. His losing from his puncture wound in the right lower abdomen was a stopped, he was started on heparin drip per recommendation of tempering machine operator. After once by the evening time his blood pressure dropped again was 53/32 with altered mental status, there was another rapid response where patient was transferred to the ICU and levophed was started and his mentation started to improve again. Patient was started also on antibiotic empirically with Zosyn and IV vancomycin total infection ruled out completely as there is still high suspicion, with possible sources including the pressure wound sacral ulcer in the lower back, and less likely the gallbladder bed and fossa with 2.7 cm fluid collection (felt less likely because actually it decreased in size from 5.0 cm previously) After transfer patient and at bedside opted for the DO NOT RESUSCITATE order as per bedside nurse. 01/06/2022 Yesterday patient was still deteriorating, however today patient turned around and start improving patient remains in the ICU he needs to pressors we will fit and vasopressin, lactic acid trending up 6.4. Patient mentation is also deteriorated and become more confused and less responsive. His creatinine remains around 1 although he has low urine output. Patient is resuscitated with many fluids and also his broad-spectrum antibiotics with IV vancomycin and Zosyn, as septic shock is highly suspected is the cause of the patient profound hypotension and shock state. Although other factors might be contributing to it. Because of this we started the patient on hydrocortisone to increase the sensitivity of the adrenergic receptors to the catecholamine. Also replacing electrolytes including calcium and magnesium. Sodium slightly t rending up. Patient remains in critical condition. Family at bedside 01/07/2022 Patient today workup and he was awake alert and oriented 3, he follows commands, he feels hungry and actually he started tolerating diet for the first time after several months. He denies any respiratory symptoms, his abdomen looks benign, no other new complaints. Blood pressure is improving and he required less pressors, currently blood pressure is 87/61, is less tachycardic around 110. He is currently on levophed 0.03 which is decreased from yesterday. Last night we added hydrocortisone 100 mg 3 times a day as a replacement therapy but to support blood pressure and increased sensitivity of levophed to its adr energic receptors. Since blood pressure improvement with lower dose to 50 mg today, possibly we will discontinue it in one or 2 days once blood pressure keep improvement. Also patient receiving fluids. Labs looks stable, hemoglobin 9.8, sodium 126 he remains on Zosyn, vancomycin was discontinued. He remains on Zosyn. Anticoagulation is switched to Eliquis therapeutic dose at 10 mg which could be switched to 5 mg on 01/17. Prognosis remains guarded Review of systems CONSTITUTIONAL: No fever, no malaise, no fatigue. HEENT: No recent visual problems or hearing problems. Denied any sore throat. CARDIOVASCULAR: No orthopnea, PND, no palpitations, no syncope. PULMONARY: No shortness of breath, no cough, no hemoptysis. NEUROLOGICAL: No headaches, no weakness, no numbness. HEMATOLOGICAL: Denies any bleeding or petechiae. Active Medications Generic Name Dose Route Start Last Admin Trade Name Freq PRN Reason Stop Dose Admin Hydrocodone Bitart/Acetaminophen 1 each 12/31/21 20:41 Hydrocodone/Apap 5-325mg 1 Each Tab PO Q6HR PRN Pain Albuterol Sulfate 2.5 mg 12/31/21 20:41 12/31/21 21:36 Albuterol Nebulized 2.5 Mg/3 Ml INHALATION 2.5 mg Q2H PRN Administration [employer] Albuterol/Ipratropium 3 ml 01/01/22 08:00 01/07/22 19:06 Ipratropium-Albuterol 3 Ml Neb INHALATION 3 ml RT-QID ERINN Administration Apixaban 10 mg 01/07/22 21:00 Apixaban 5 Mg Tab PO 01/14/22 21:01 BID [facility] Protocol Ascorbic Acid 1,000 mg 01/01/22 08:00 01/07/22 08:37 Ascorbic Acid 500 Mg Tab PO 1,000 mg DAILY@0800 ERINN Administration Cholecalciferol 25 mcg 01/01/22 09:00 01/07/22 08:38 Cholecalciferol 25 Mcg (1000 Iu) Tablet PO 25 mcg DAILY ERINN Administration Dronabinol 5 mg 01/01/22 12:00 01/07/22 17:56 Dronabinol 2.5 Mg Cap PO 5 mg BID@1200,1700 ERINN Administration Folic Acid 1 mg 01/01/22 09:00 01/07/22 08:39 Folic Acid 1 Mg Tab PO 1 mg DAILY ERINN Administration Hydrocortisone Sodium Succinate 50 mg 01/08/22 00:00 Hydrocortisone Succinate 100 Mg/2 Ml Vial IV Q8HR ERINN Hydromorphone HCl 0.5 mg 12/31/21 20:44 Hydromorphone 0.5 Mg/0.5 Ml Syringe IVP Q4HR PRN Pain Sodium Bicarbonate 150 ml/ 1,150 mls @ 100 mls/hr 01/05/22 20:30 01/07/22 12:34 Sodium Chloride IV 50 mls/hr .[id number] ERINN Administration Norepinephrine Bitartrate 32 250 mls @ 20.518 mls/hr 01/05/22 23:15 01/07/22 12:31 mg/ Sodium Chloride IV 0.3 mcg/kg/min .[id number] ERINN 12.311 mls/hr Administration Protocol 0.5 MCG/KG/MIN Vasopressin 60 unit/ Sodium 153 mls @ 4.59 mls/hr 01/05/22 23:45 01/06/22 23:46 Chloride IV 0.03 units/min .Q24H ERINN 4.59 mls/hr Administration Protocol 0.03 UNITS/MIN Lactated Ringer's 1,000 mls @ 20 mls/hr 01/06/22 01:32 01/07/22 02:51 Lactated Ringers IV Not Given .Q24H ERINN Piperacillin Sod/Tazobactam 100 mls @ 25 mls/hr 01/06/22 20:00 01/07/22 12:40 Sod 3.375 gm/ Sodium Chloride IVPB 25 mls/hr Q8H ERINN Administration Protocol Insulin Aspart 0 unit 01/07/22 21:00 Insulin Aspart (Novolog) 100 Unit/Ml Vial SQ ACHS ERINN Protocol Lidocaine HCl 0.1 ml 01/06/22 01:32 Lidocaine 1% (10mg/Ml) For Iv Start INTRADERMA PER PROTOCOL PRN IV Start Magnesium Oxide 400 mg 01/02/22 02:00 01/07/22 16:43 Magnesium Oxide 400 Mg Tab PO Not Given TID ERINN Metoclopramide HCl 10 mg 01/03/22 18:00 01/07/22 18:15 Metoclopramide 5 Mg/Ml 2 Ml Vial IVP 10 mg Q6HR ERINN Administration Metoprolol Tartrate 50 mg 01/01/22 08:00 01/07/22 16:09 Metoprolol Tartrate 50 Mg Tab PO Not Given BID@0800,1600 ERINN Midodrine 10 mg 01/05/22 12:30 01/07/22 17:57 Midodrine 5 Mg Tab PO 10 mg AC-TID ERINN Administration Miscellaneous Information 1 each 01/02/22 06:58 Magnesium Replacement Protocol 1 Each Misc MISCELLANE DAILY PRN Per Protocol Protocol Miscellaneous Information 1 each 01/02/22 07:03 Potassium Replacement Protocol 1 Each Misc MISCELLANE DAILY PRN Per Protocol Protocol Multivitamins 1 each 01/01/22 09:00 01/07/22 08:39 Multivitamins, Thera 1 Each Tab PO 1 each DAILY ERINN Administration Naloxone HCl 0.2 mg 12/31/21 14:52 Naloxone 0.4 Mg/Ml 1 Ml Vial IV Q2M PRN Opioid Reversal Ondansetron HCl 4 mg 12/31/21 21:23 01/02/22 18:15 Ondansetron 4 Mg/2 Ml Vial IVP 4 mg Q6HR PRN Administration Nausea And Vomiting Pantoprazole Sodium 40 mg 12/31/21 21:00 01/07/22 08:39 Pantoprazole 40 Mg/10 Ml Vial IVP 40 mg BID ERINN Administration Potassium Chloride 20 meq 01/01/22 09:00 01/07/22 08:40 Potassium Chloride Er 20 Meq Tab.Er PO 20 meq DAILY ERINN Administration Potassium Chloride 40 meq 12/31/21 21:00 01/06/22 21:35 Potassium Chloride Er 20 Meq Tab.Er PO Not Given HS ERINN Sodium Bicarbonate 650 mg 01/07/22 09:00 01/07/22 16:14 Sodium Bicarbonate Tab 650 Mg Tab PO 650 mg TID ERINN Administration Tamsulosin HCl 0.4 mg 01/01/22 09:00 01/07/22 08:40 Tamsulosin 0.4 Mg Cap.Er.24h PO 0.4 mg DAILY ERINN Administration Objective - Vital Signs Vital signs: Vital Signs Temp 97.7 F 01/07/22 16:00 Pulse 110 H 01/07/22 19:16 Resp 16 01/07/22 19:00 BP 87/63 01/07/22 19:00 Pulse Ox 99 01/07/22 19:00 FiO2 28 01/02/22 16:04 Intake & Output 01/07/22 01/07/22 01/08/22 06:59 18:59 06:59 Intake Total 2880.517 1314.433 76 Output Total 115 125 5 Balance 2765.517 1189.433 71 Weight 113.5 kg 113.5 kg Intake: IV 1796 1137 76 0.45 w/ bicarb 1100 700 50 0.9 NACL 180 240 20 pressure bags 66 72 6 vancomycin 250 125 zosyn 200 Intake, IV Titration 1084.517 177.433 Amount Calcium Gluconate in NaCl 100 2 gm In Saline 1 100ml. bag @ 100 mls/hr IVPB ONCE ONE Rx#:[id number] Heparin Sod,Pork in 0.45% 60.343 NaCl 25,000 unit In 0.45 % NaCl 1 250ml.bag @ 18 UNITS/KG/HR 15.758 mls/hr IV .[id number] [facility] Rx#: [id number] Magnesium Sulfate-D5w Pmx 200 100 1 gm In Dextrose/Water 1 100ml.bag @ 100 mls/hr IVPB Q1H [facility] Rx#: [id number] Norepinephrine 32 mg In 316.079 77.433 Sodium Chloride 0.9% 218 ml @ 0.5 MCG/KG/MIN 20. 518 mls/hr IV .[id number] ERINN Rx#:[id number] Potassium Chloride 20 meq 200 In Water For Injection 1 100ml.bag @ 50 mls/hr IVPB Q2H ERINN Rx#: [id number] Sodium Chloride 0.45% 1, 100 000 ml @ 100 mls/hr IV . [id number] ERINN with Sodium Bicarb (1 Meq/ml) 150 ml Rx#:[id number] Sodium Chloride 0.9% 150 108.095 ml @ 0.03 UNITS/MIN 4.59 mls/hr IV .Q24H ERINN with Vasopressin 60 unit Rx#: [id number] Output: Urine 115 125 5 Other: Voiding Method Indwelling Catheter Indwelling Catheter ABP, PAP, CO, CI - Last Documented Arterial Blood Pressure 139/80 - Exam GENERAL: The patient is alert and oriented x3, in no mild acute distress. BMI is 29.3. Patient looks pale and tachycardic HEENT: Pupils are round and equally reacting to light. EOMI. No scleral icterus. No conjunctival pallor. Normocephalic, atraumatic. No pharyngeal erythema. No thyromegaly. CARDIOVASCULAR: S1 and S2 present. No murmurs, rubs, or gallops. Mild tachypnea PULMONARY: Chest is clear to auscultation, no wheezing or crackles. ABDOMEN: Soft, nontender, nondistended, normoactive bowel sounds. No palpable organomegaly. -MUSCULOSKELETAL: No joint swelling or deformity. Unstageable sacral pressure ulcer -EXTREMITIES: No cyanosis, clubbing, or pedal edema. Left leg tenderness -NEUROLOGICAL: Cranial nerves are grossly intact. He has severe chronic bilateral lower extremity weakness (chronic 6 month as per pt), meningeal signs are absent. No sensory abnormality, no numbness or tingling SKIN: No rashes. no petechiae. - Labs CBC & Chem 7: 01/07/22 05:15 01/07/22 16:22 Labs: Abnormal Lab Results - Last 24 Hours (Table) 01/06/22 01/07/22 01/07/22 Range/Units 22:00 00:10 04:10 RBC (4.30-5.90) m/uL Hgb (13.0-17.5) gm/dL Hct (39.0-53.0) % RDW (11.5-15.5) % Neutrophils # (1.3-7.7) k/uL PT 17.1 H (9.0-12.0) sec INR 1.7 H (<1.2) APTT 73.9 H (22.0-30.0) sec Sodium 129 L (137-145) mmol/L Potassium 3.4 L (3.5-5.1) mmol/L Carbon Dioxide 13 L (22-30) mmol/L Glucose 249 H (74-99) mg/dL POC Glucose (mg/dL) 289 H (70-110) mg/dL Plasma Lactic Acid Hayden (0.7-2.0) mmol/L Calcium 6.4 L* (8.4-10.2) mg/dL Iron (65-175) ug/dL TIBC (228-460) ug/dL % Saturation (15.00-50.00) Transferrin (204.0-354.0) mg/dL Alkaline Phosphatase 203 H (38-126) U/L Total Protein 3.9 L (6.3-8.2) g/dL Albumin 1.6 L (3.5-5.0) g/dL 01/07/22 01/07/22 01/07/22 Range/Units 05:15 05:15 05:15 RBC (4.30-5.90) m/uL Hgb (13.0-17.5) gm/dL Hct (39.0-53.0) % RDW (11.5-15.5) % Neutrophils # (1.3-7.7) k/uL PT (9.0-12.0) sec INR (<1.2) APTT (22.0-30.0) sec Sodium 130 L (137-145) mmol/L Potassium (3.5-5.1) mmol/L Carbon Dioxide 16 L (22-30) mmol/L Glucose 197 H (74-99) mg/dL POC Glucose (mg/dL) (70-110) mg/dL Plasma Lactic Acid Hayden 3.8 H* (0.7-2.0) mmol/L Calcium 6.8 L (8.4-10.2) mg/dL Iron 55 L (65-175) ug/dL TIBC 59 L (228-460) ug/dL % Saturation 94.33 H (15.00-50.00) Transferrin 41.8 L (204.0-354.0) mg/dL Alkaline Phosphatase 238 H (38-126) U/L Total Protein 4.2 L (6.3-8.2) g/dL Albumin 1.8 L (3.5-5.0) g/dL 01/07/22 01/07/22 01/07/22 Range/Units 05:15 06:29 10:25 RBC 3.64 L (4.30-5.90) m/uL Hgb 9.8 L (13.0-17.5) gm/dL Hct 30.3 L (39.0-53.0) % RDW 18.5 H (11.5-15.5) % Neutrophils # 8.7 H (1.3-7.7) k/uL PT (9.0-12.0) sec INR (<1.2) APTT 48.1 H (22.0-30.0) sec Sodium (137-145) mmol/L Potassium (3.5-5.1) mmol/L Carbon Dioxide (22-30) mmol/L Glucose (74-99) mg/dL POC Glucose (mg/dL) 231 H (70-110) mg/dL Plasma Lactic Acid Hayden (0.7-2.0) mmol/L Calcium (8.4-10.2) mg/dL Iron (65-175) ug/dL TIBC (228-460) ug/dL % Saturation (15.00-50.00) Transferrin (204.0-354.0) mg/dL Alkaline Phosphatase (38-126) U/L Total Protein (6.3-8.2) g/dL Albumin (3.5-5.0) g/dL 01/07/22 01/07/22 01/07/22 Range/Units 12:37 13:51 16:22 RBC (4.30-5.90) m/uL Hgb (13.0-17.5) gm/dL Hct (39.0-53.0) % RDW (11.5-15.5) % Neutrophils # (1.3-7.7) k/uL PT (9.0-12.0) sec INR (<1.2) APTT (22.0-30.0) sec Sodium 126 L (137-145) mmol/L Potassium (3.5-5.1) mmol/L Carbon Dioxide 19 L (22-30) mmol/L Glucose 160 H (74-99) mg/dL POC Glucose (mg/dL) 208 H (70-110) mg/dL Plasma Lactic Acid Hayden 3.4 H* (0.7-2.0) mmol/L Calcium 6.5 L (8.4-10.2) mg/dL Iron (65-175) ug/dL TIBC (228-460) ug/dL % Saturation (15.00-50.00) Transferrin (204.0-354.0) mg/dL Alkaline Phosphatase (38-126) U/L Total Protein (6.3-8.2) g/dL Albumin (3.5-5.0) g/dL 01/07/22 Range/Units 18:10 RBC (4.30-5.90) m/uL Hgb (13.0-17.5) gm/dL Hct (39.0-53.0) % RDW (11.5-15.5) % Neutrophils # (1.3-7.7) k/uL PT (9.0-12.0) sec INR (<1.2) APTT (22.0-30.0) sec Sodium (137-145) mmol/L Potassium (3.5-5.1) mmol/L Carbon Dioxide (22-30) mmol/L Glucose (74-99) mg/dL POC Glucose (mg/dL) 231 H (70-110) mg/dL Plasma Lactic Acid Hayden (0.7-2.0) mmol/L Calcium (8.4-10.2) mg/dL Iron (65-175) ug/dL TIBC (228-460) ug/dL % Saturation (15.00-50.00) Transferrin (204.0-354.0) mg/dL Alkaline Phosphatase (38-126) U/L Total Protein (6.3-8.2) g/dL Albumin (3.5-5.0) g/dL Microbiology - Last 24 Hours (Table) 01/06/22 02:25 Blood Culture - Preliminary Blood No Growth after 24 hours 01/05/22 18:30 Blood Culture - Preliminary Blood No Growth after 24 hours Assessment and Plan Assessment: Severe hypotension and shock state requiring pressors, possible septic shock Complex liver collection adjacent to gallbladder fossa 2.7 cm suspicious for abscess versus other Hyponatremia Persistent nausea and vomiting secondary to ileus, Acute right leg DVT Severe appetite loss associated with Loss of weight and nausea Dehydration and hypovolemia, improving Unstageable chronic decubitus ulcer status post wound VAC placement Anemia of chronic diseases mellitus, With hyperglycemia on admission Hypertension Hyperlipidemia History of COPD Chronic congestive heart failure with ejection fraction 55-60% History of metabolic encephalopathy Sinus tachycardia Status post cholecystectomy Restless leg syndrome BPH Chronic medical debility Plan: This is a pleasant 61 years old male who presents with dehydration, loss of appetite and loss of weight, hyponatremia, bilateral leg pain and other medical problems pulmonary/critical care input is appreciated and they are following the patient closely continue with pressors and ICU management as per rug setter [place] and pulmonary care team Start the patient empirically on Zosyn . vancomycinwas discontinued. follow-up blood culture Lower dose of hydrocortisone at 50 mg 3 times a day 2 new monitoring sodium. Consult 3rd grade reading teacher, patient started on Eliquis per hematology team recommendation Labs and medication reviewed. Continue with symptomatic treatment. Resume home medication. Monitor lytes and vitals. DVT and GI prophylaxis. Further recommendations as per clinical course of the patient DVT prophylaxis: Eliquisxis GI prophylaxis: Ppi Prognosis is guarded
[2022-01-07 22:17] LABS: Glucose,Whole Blood 175 mg/dL (70-110)
[2022-01-07] MEDS: APIXABAN 5 MG TAB PO SCH (22:24)
[2022-01-08] MEDS ORDERED: HYDROCORTISONE SUCCINATE 100 MG/2 ML VIAL IV SCH
[2022-01-08] MEDS: SODIUM CHLORIDE 0.9% 150 ML with VASOPRESSIN 60 UNIT IV SCH ×4 (02:50→10:01)
[2022-01-08] MEDS: NOREPINEPHRINE 32 MG in SODIUM CHLORIDE 0.9% 218 ML IV SCH ×2 (02:50→17:36)
[2022-01-08] MEDS: LACTATED RINGERS 1,000 ML IV SCH (02:51)
[2022-01-08] MEDS: METOCLOPRAMIDE 5 MG/ML 2 ML VIAL IVP SCH ×5 (03:10→23:14)
[2022-01-08] MEDS: SODIUM CHLORIDE 0.45% 1,000 ML with SODIUM BICARB (1 MEQ/ML) 150 ML IV SCH ×2 (03:27)
[2022-01-08 05:54] LABS: Glucose,Whole Blood 140 mg/dL (70-110)
[2022-01-08] MEDS: PIPERACILLIN-TAZOBACTAM 3.375 GM in SODIUM CHLORIDE 0.9% 100 ML IVPB SCH ×3 (05:58→20:05)
[2022-01-08 06:35] LABS: Ionized Calcium 4.2 mg/dL (4.5-5.3)
[2022-01-08 06:46] LABS: Albumin 1.6 g/dL (3.5-5.0); Calcium 6.7 mg/dL (8.4-10.2); Potassium 4.2 mmol/L (3.5-5.1); Total Bilirubin 0.5 mg/dL (0.2-1.3); Total Protein 3.7 g/dL (6.3-8.2)
[2022-01-08 07:05] LABS: Anisocytosis Slight; Basophils % (A) 0 %; Eosinophils % (A) 0 %; HCT 27.9 % (39.0-53.0); HGB 8.9 gm/dL (13.0-17.5); Lymphocytes # (A) 1.1 k/uL (1.0-4.8); Lymphocytes % (A) 11 %; MCH 26.7 pg (25.0-35.0); MCHC 31.9 g/dL (31.0-37.0); MCV 83.8 fL (80.0-100.0); Mean Platelet Volume 7.9; Monocytes # (A) 0.4 k/uL (0-1.0); Monocytes % (A) 4 %; Neutrophils % (A) 85 %; Platelet Count 338 k/uL (150-450); RBC 3.33 m/uL (4.30-5.90); RDW 18.9 % (11.5-15.5); WBC 9.5 k/uL (3.8-10.6)
[2022-01-08] MEDS: MIDODRINE 5 MG TAB PO SCH ×3 (07:11→17:16)
[2022-01-08] MEDS: IPRATROPIUM-ALBUTEROL 3 ML NEB INHALATION SCH ×4 (07:18→19:30)
[2022-01-08 07:21] LABS: Glucose,Whole Blood 150 mg/dL (70-110)
[2022-01-08] MEDS: INSULIN ASPART (NovoLOG) 100 UNIT/ML VIAL SQ SCH ×4 (07:21→20:50)
[2022-01-08] MEDS: METOPROLOL TARTRATE 50 MG TAB PO SCH ×2 (07:50→17:09)
[2022-01-08] MEDS: CHOLECALCIFEROL 25 MCG (1000 IU) TABLET PO SCH (08:07)
[2022-01-08] MEDS: APIXABAN 5 MG TAB PO SCH ×2 (08:07→20:50)
[2022-01-08] MEDS: PANTOPRAZOLE 40 MG/10 ML VIAL IVP SCH ×2 (08:07→20:50)
[2022-01-08] MEDS: MAGNESIUM OXIDE 400 MG TAB PO SCH ×3 (08:07→20:51)
[2022-01-08] MEDS: TAMSULOSIN 0.4 MG CAP.ER.24H PO SCH (08:07)
[2022-01-08] MEDS: SODIUM BICARBONATE TAB 650 MG TAB PO SCH ×3 (08:07→20:52)
[2022-01-08] MEDS: POTASSIUM CHLORIDE ER 20 MEQ TAB.ER PO SCH (08:08)
[2022-01-08] MEDS: FOLIC ACID 1 MG TAB PO SCH (08:08)
[2022-01-08] MEDS: MULTIVITAMINS, THERA 1 EACH TAB PO SCH (08:08)
[2022-01-08] MEDS: ASCORBIC ACID 500 MG TAB PO SCH (08:08)
--- NOTE | 2022-01-08 08:19 | P.PN ---
Subjective Progress Note Date: 01/08/22 I was asked to evaluate this patient and chance for him to the intensive care unit and the patient has been quite elevated cardiac and hypotensive in addition to significant electrolyte and blood abnormalities. The patient is known to have multiple comorbidities. He has COPD, diabetes mellitus, hypertension , and addition to obstructive sleep apnea and the patient utilizes CPAP machine. The patient had an open cholecystectomy for gangrenous cholecystitis and the surgery was on 09/17/2021. At that time, the patient was quite ill and septic. He developed acute respiratory failure following his surgery and the patient was extubated successfully. During the course of the illness, the patient and acute kidney injury and he was initially on hemodialysis via permacath. The patient presented back to our hospital from the correction where he was residing and the patient was quite lethargic and dehydrated. The patient apparently was initially brought into the hospital for a PEG tube placement as the patient wasn't eating or drinking and he had lost significant amount of weight. He has also developed a pressure ulcer of his left gluteal area and the patient was seen by the wound care team and the patient has a wound VAC applied to that area. There was a concern for development of a abscess in the liver. A CAT scan of the abdomen was done that raised concerns for a fluid collection/abscess in the gallbladder fossa and a similar findings were also seen on the ultrasound of the abdomen. The case was reviewed by interventional radiology. This finding was quite deep in the abdomen and limited for percutaneous access. Based on that, no intervention was done. Over the past 24 hours, the patient has been acting more septic. The patient was hypotensive and the A team was activated. The patient apparently was running a lower blood pressure. The patient also had been refusing to take his medication. He was given fluid boluses. He was started on bicarb infusion at the rate of 75 mL an hour and he was also started on midodrine and salt tablets. He was noted to be hyponatremic. Subsequently, his condition decompensated and this afternoon, the patient was examined the lethargic, unresponsive, labs showed a sodium level of 119, serum bicarb was 16 with a anion gap of 6. BUN was 11 with a creatinine of 0.6. The pro-calcitonin level was 0.3. The patient had a White second of 9.0 with a hemoglobin of 9.6. Coagulation profile was within normal limits. The sodium level is 119 with a serum bicarb of 16 and an anion gap of 6. Noted the patient was hyponatremic during this current admission. The sodium level progressively dropped and the patient did not respo nd to normal saline. Urine sodium was low, less than 20 but urine osmolality was at 454. The patient was seen by nephrology and the normal saline was discontinued. For now, the patient is on a bicarb infusion at the rate of 70 mL an hour. He was started also on IV Zosyn. Note that during this current admission, the patient was found to have a right lower extremity DVT and the pat ient was started on Lovenox and this was switched to IV heparin. The patient did not have any pulmonary embolism based on the CT angiogram. Echocardiac Michael showed a preserved LV function. His serum cortisone level was elevated. After the patient being chest to the intensive care unit, he was given a total of 2 L of bolus. He became more alert and responsive. He had to be started on pressors and currently norepinephrine infusion is running at 0.4 mcg/kg per minute. The patient was given a triple lumen catheter and arterial line catheter for intensive hemodynamic monitoring. The patient was started on IV Zosyn and the patient will be given vancomycin. Wound VAC is in place. Abdomen is soft. Mental status is gradually improving. He was able to recognize when he was older to follow simple commands. He is receiving the second bolus of normal saline for now. 01/06/2022, the patient is being seen for a follow-up. This patient is developing progressive hypotension and patient is currently in a shock state. Suspect septic shock although no positive cultures are available. the patient got chest to the ICU yesterday because of hyponatremia, hypotension, shock state and the patient was started with broad-spectrum antibiotics and the patient was resuscitated IV fluids. The patient overnight, was Bicarb Infusion with a Total 150 Mg of Sodium Bicarbonate of 150 ML an Hour. The Patient Was Given a Total of 2 L Normal Saline Bolus Immediately. The Patient Was Started on a Combination of Zosyn and vancomycin. The patient was also started on pressors. Norepinephrine infusion currently running at 0.4 mg/kg per minute and the patient is also on a vasopressin physiologic dose. The patient is also found to have a lactic acid level of 2.1. Pro-calcitonin level is at 0.33, mildly elevated and the troponin was at 0.03. The patient is a preserved LV function based on previous echocardiogram. At the same time, the patient remains on 2 L of oxygen by nasal cannula. Post line chest x-ray showed no evidence of any pneumonia or any other pulmonary complications. On today's evaluation, he remains lethargic. Oral intake is minimal. No nausea or emesis. No abdominal pain. He is arousable and follows simple commands. He feels extremely weak. Denies having any other complaints. Meanwhile, the white cell count today is at 8.9 with hemoglobin of 9.1 and the patient has a platelet count of 366. The PTT was supratherapeutic and is currently on hold and those being adjusted by pharmacy. Sodium level is up to 125 with a BUN of 11 and a creatinine of 1.01. LFTs show an AST of 41, ALT of 23, alkaline phosphatase of 179, serum albumin is 1.7. Stool for occult blood and C. diff were both negative. The patient has still a wound VAC in place. Cultures were sent and the results are still negative for now. 01/07/2022, the patient is much more alert and awake and communicating and answering questions appropriately. He woke up this morning much more comfortable and his breathing is nonlabored. He is still a shock state. He is still being resuscitated with IV fluids. He received a total of 2 L yesterday and he was maintained on a bicarb infusion at the rate of 150 mL an hour. On today's evaluation, his hemodynamics have improved. His blood pressure is adequate while being off pressors and the patient is currently on norepinephrine at a dose of 0.35 Kevin respiratory micrograms per minute and vasopressin is admitted physiologic dose of 0.03 units an hour. Urine output is in order of 15-20 mL an hour. Meanwhile, the patient is in sinus rhythm. No angina. No palpitation. No shortness of breath. He remains on 2 L of oxygen by nasal cannula with a pulse ox of 99%. Cultures of been all negative. His white cell count is at 10.2 with a hemoglobin of 0.8 and a platelet count of 366. He remains on IV heparin with a therapeutic PT this morning. INR is at 1.7 with a PT of 17.1. Sodium level is normalized is up to 1:30 and a serum bicarb is up to 16 with an anion gap of 10. His lactic acid level has been fluctuating and dropped down to 3.8 after being as high as 4.4. His magnesium is being replaced at the level of 1.9. LFTs are normal, alkaline phosphatase is at 238. No abdominal pain. He has extensive thirst spacing an extensive edema in all 4 extremities and the left upper extremity is significantly swollen at this point in time. The patient has a right brachial arterial line catheter in place. Pulses are diminished in all 4 extremities and the patient remains cold and clammy and vasoconstricted. Note that his echo of the heart showed a preserved LV function. As such, the exact cause of shock is not clear although we have high suspicions for her septic shock. The patient was resuscitated with IV fluids, pressors, and broad-spectrum antibiotics. With a combination of Zosyn and vancomycin. Cultures are all negative. Pro-calcitonin level is slightly elevated. Mental status is improved. Stool for C. diff has been negative. Wound VAC is in place. Output from the wound VAC is minimal at this point in time. 01/08/2022, the patient is lethargic yet awake and following commands and answering questions. Extremely weak, oral intake is minimal oblique took some clear liquid diet yesterday and small amounts. Breathing is nonlabored and the patient remains on oxygen at 2 L per minute nasal cannula. Distal extensive thirst spacing and edema both in upper and lower extremity and the patient is not showing good response to diuretics. He was given 2 doses of 80 mg of IV Lasix yesterday with limited response and overall urine output has been in order of 2 70 mL over the past 24 hours. As such, urine output is no longer off 10-50 mL an hour. Nephrology was consulted. Creatinine is at 1.14 which is stable. The patient will be given IV albumin and following that he'll be given Lasix. He'll be given 25 g of IV albumin followed by 80 mg of IV Lasix. Creatinine is going to the monitors. Electrolytes are all stable. The patient's sodium is at 127. Serum bicarb is up to 23. He remains on a bicarb infusion running at the rate of 50 mL an hour. His serum albumin currently is at 1.6. At the same time, the patient remains hypotensive. His pressor requirements have dropped compared to yesterday. He remains on norepinephrine which is currently running at 0.18 mcg/kg per minute and the patient remains on a physiologic dose of vasopressin. As mentioned, all of the cultures of been negative. His abdomen is slightly tense and there may be some subcutaneous edema. No nausea. No emesis. No fever. The white cell count is at 9.5 with a hemoglobin of 8.9 and the blood work is essentially stable. As mentioned, the patient's pro- calcitonin was mildly elevated at 0.33. Stool for C. diff has been negative. The patient remains on IV Zosyn and vancomycin. Wound VAC is still in place. Output from the wound VAC is minimal at this point in time. He has a triple- lumen catheter in his left subclavian and he has also a right brachial arterial line catheter. Calcium on and off has been noted to be low and the patient is being supplemented with IV calcium. Objective - Vital Signs Vital signs: Vital Signs Temp 97.7 F 01/07/22 16:00 Pulse 109 H 01/08/22 07:35 Resp 14 01/08/22 07:30 BP 97/62 01/08/22 00:00 Pulse Ox 95 01/08/22 07:30 FiO2 28 01/02/22 16:04 Intake & Output 01/07/22 01/08/22 01/08/22 18:59 06:59 18:59 Intake Total 3888.936 5848.283 206 Output Total 125 104 10 Balance 4714.276 5610.283 196 Weight 113.5 kg 118.7 kg Intake: IV 1137 1112 206 0.45 w/ bicarb 700 600 100 0.9 NACL 240 240 Calcium Gluconate in NaCl 100 2 gm In Saline 1 100ml. bag @ 100 mls/hr IVPB ONCE ONE Rx#:[id number] pressure bags 72 72 6 vancomycin 125 zosyn 100 100 Intake, IV Titration 177.433 98.283 Amount Magnesium Sulfate-D5w Pmx 100 1 gm In Dextrose/Water 1 100ml.bag @ 100 mls/hr IVPB Q1H [facility] Rx#: [id number] Norepinephrine 32 mg In 77.433 98.283 Sodium Chloride 0.9% 218 ml @ 0.5 MCG/KG/MIN 20. 518 mls/hr IV .[id number] [facility] Rx#:[id number] Output: Urine 125 104 10 Other: Voiding Method Indwelling Catheter Indwelling Catheter ABP, PAP, CO, CI - Last Documented Arterial Blood Pressure 134/73 - Exam Gen. appearance the patient is awake and alert and is following simple commands. He is profoundly weak in all 4 extremities. No agitation. No delirium. Awake and alert and following commands and answering questions appropriately. The patient is currently on 2 L of oxygen by nasal cannula. Head exam was generally normal. There was no scleral icterus or corneal arcus. Mucous membranes were moist. Neck was supple and without jugular venous distension, thyromegaly, or carotid bruits. Carotids were easily palpable bilaterally. There was no adenopathy. Lungs were clear to auscultation and percussion, and with normal diaphragmatic excursion. No wheezes or rales were noted. Heart sounds are distant positive sinus and there is no significant murmurs appreciated Abdominal exam revealed normal bowel sounds. The abdomen was soft, non-tender, and without masses, organomegaly, or appreciable enlargement of the abdominal aorta. Patient is also developed some bleeding from the skin at the site of Lovenox injections. There is areas of ecchymosis. No direct tenderness. No rebound tenderness. No guarding. Surgical wound site over the right upper quadrant at the site of the open cholecystectomy dry clean and intact. Bowel sounds are hypoactive at the present. No distention. No ascites. Extremities are mottled and the patient diminished pulses bilaterally, no cyanosis. Neurologically the patient is following commands and answering que stions. No focal neurological deficits. Profoundly weak, extensive edema in all 4 extremities mainly in the left upper extremity that needs to be further worked up. Pulses are diminished in all 4 extremities and extremities are less cold and there is no skin mottling on this evaluation.. Skin the patient has a wound VAC in his pulse ox regarding his stage IV sacral decubitus ulceration. - Labs CBC & Chem 7: 01/08/22 06:00 01/08/22 05:50 Labs: Abnormal Lab Results - Last 24 Hours (Table) 01/07/22 01/07/22 01/07/22 Range/Units 05:15 10:25 12:37 RBC (4.30-5.90) m/uL Hgb (13.0-17.5) gm/dL Hct (39.0-53.0) % RDW (11.5-15.5) % Neutrophils # (1.3-7.7) k/uL APTT 48.1 H (22.0-30.0) sec Sodium (137-145) mmol/L Carbon Dioxide (22-30) mmol/L Glucose (74-99) mg/dL POC Glucose (mg/dL) 208 H (70-110) mg/dL Plasma Lactic Acid Hayden (0.7-2.0) mmol/L Calcium (8.4-10.2) mg/dL Ionized Calcium Sukhjinder (4.5-5.3) mg/dL Iron 55 L (65-175) ug/dL TIBC 59 L (228-460) ug/dL % Saturation 94.33 H (15.00-50.00) Transferrin 41.8 L (204.0-354.0) mg/dL AST (17-59) U/L Alkaline Phosphatase (38-126) U/L Total Protein (6.3-8.2) g/dL Albumin (3.5-5.0) g/dL 01/07/22 01/07/22 01/07/22 Range/Units 13:51 16:22 18:10 RBC (4.30-5.90) m/uL Hgb (13.0-17.5) gm/dL Hct (39.0-53.0) % RDW (11.5-15.5) % Neutrophils # (1.3-7.7) k/uL APTT (22.0-30.0) sec Sodium 126 L (137-145) mmol/L Carbon Dioxide 19 L (22-30) mmol/L Glucose 160 H (74-99) mg/dL POC Glucose (mg/dL) 231 H (70-110) mg/dL Plasma Lactic Acid Hayden 3.4 H* (0.7-2.0) mmol/L Calcium 6.5 L (8.4-10.2) mg/dL Ionized Calcium Sukhjinder (4.5-5.3) mg/dL Iron (65-175) ug/dL TIBC (228-460) ug/dL % Saturation (15.00-50.00) Transferrin (204.0-354.0) mg/dL AST (17-59) U/L Alkaline Phosphatase (38-126) U/L Total Protein (6.3-8.2) g/dL Albumin (3.5-5.0) g/dL 01/07/22 01/08/22 01/08/22 Range/Units 22:16 05:50 05:52 RBC (4.30-5.90) m/uL Hgb (13.0-17.5) gm/dL Hct (39.0-53.0) % RDW (11.5-15.5) % Neutrophils # (1.3-7.7) k/uL APTT (22.0-30.0) sec Sodium 127 L (137-145) mmol/L Carbon Dioxide (22-30) mmol/L Glucose 127 H (74-99) mg/dL POC Glucose (mg/dL) 175 H 140 H (70-110) mg/dL Plasma Lactic Acid Hayden (0.7-2.0) mmol/L Calcium 6.7 L (8.4-10.2) mg/dL Ionized Calcium Sukhjinder 4.2 L (4.5-5.3) mg/dL Iron (65-175) ug/dL TIBC (228-460) ug/dL % Saturation (15.00-50.00) Transferrin (204.0-354.0) mg/dL AST 61 H (17-59) U/L Alkaline Phosphatase 230 H (38-126) U/L Total Protein 3.7 L (6.3-8.2) g/dL Albumin 1.6 L (3.5-5.0) g/dL 01/08/22 01/08/22 Range/Units 06:00 07:20 RBC 3.33 L (4.30-5.90) m/uL Hgb 8.9 L (13.0-17.5) gm/dL Hct 27.9 L (39.0-53.0) % RDW 18.9 H (11.5-15.5) % Neutrophils # 8.0 H (1.3-7.7) k/uL APTT (22.0-30.0) sec Sodium (137-145) mmol/L Carbon Dioxide (22-30) mmol/L Glucose (74-99) mg/dL POC Glucose (mg/dL) 150 H (70-110) mg/dL Plasma Lactic Acid Hayden (0.7-2.0) mmol/L Calcium (8.4-10.2) mg/dL Ionized Calcium Sukhjinder (4.5-5.3) mg/dL Iron (65-175) ug/dL TIBC (228-460) ug/dL % Saturation (15.00-50.00) Transferrin (204.0-354.0) mg/dL AST (17-59) U/L Alkaline Phosphatase (38-126) U/L Total Protein (6.3-8.2) g/dL Albumin (3.5-5.0) g/dL Microbiology - Last 24 Hours (Table) 01/06/22 02:25 Blood Culture - Preliminary Blood No Growth after 48 hours 01/05/22 18:30 Blood Culture - Preliminary Blood No Growth after 48 hours Assessment and Plan Plan: Acute shock state, possibly hypovolemic/septic. Cultures are still negative. Pro-calcitonin level is slightly elevated. Responded to fluids and pressors and antibiotics. Patient is afebrile. Pressor requirements are less compared to yesterday. IV fluids in the form of bicarb infusion. The patient has been aggressively resuscitated IV fluids and we are weaning the pressors doses and the patient's currently is down to 0.18 mcg/kg per minute of norepinephrine infusion , In addition to vasopressin physiologic dose. Change in mental status, improving with fluid resuscitation and improvement in the blood pressure Recent gangrenous cholecystitis with a right cholecystectomy, open. There is a collection in the gallbladder fossa which is most likely benign. Abdominal exam is benign and the patient is not having any abnormalities in liver function tests. Cachexia, failure to meet caloric requirements, weight loss, awaiting a PEG tube insertion, this was placed on hold because of a shock state and the patient will not have a active inserted. At the same time, he seems to be hungry and is asking for food and strawberries today. 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 Previous history of kidney failure requiring dialysis, current renal function is normal Hyponatremia, improved and the sodium level is up to 127 Excessive third spacing and edema, will be given IV albumin followed by Lasix Hypoalbuminemia with a serum albumin of 1.6 None Anion gap metabolic acidosis, improving History morbid obesity with ongoing weight loss Diabetes mellitus type 2 Bronchial asthma, chronic unspecified Diabetes mellitus type 2 Obstructive sleep apnea BPH Hypertension Hyperlipidemia Previous history of C. diff colitis, repeat stool for C. diff has been negative Generalized debility due to his medical condition and the patient has been correction resident following his surgery Plan IV fluids to 50 mL an hour of bicarb infusion.. Give the patient Lasix 80 mg IV and monitor his urine output long with 25 g of IV albumin 3, every 8 hours Eliquis 5 mg by mouth twice a day Continue Zosyn Continue norepinephrine infusion and titrate the dose Continue vasopressin A cortisol level was high Continue following up this patient along with aggressive the consultants. Condition is critical. CODE STATUS is DNR/DNI based on patient's wishes. Critically care evaluation done more than 30 minutes
[2022-01-08] MEDS ORDERED: FUROSEMIDE 10 MG/ML 10 ML VIAL IV STA (08:38)
--- NOTE | 2022-01-08 09:05 | P.PN ---
Subjective Patient is seen in follow-up for hyponatremia and acute kidney injury. Currently on vasopressor support. On Levophed and vasopressin. Receiving b icarbonate drip. Urine output about 10 mL an hour. Oral intake poor. On clear liquid diet. Sodium level 127 today. Vital signs are stable. On vasopressor support. General: Awake. No acute distress. HEENT: Head exam is unremarkable. On nasal cannula. LUNGS: Breath sounds decreased. HEART: Tachycardic. ABDOMEN: Soft, no distention. EXTREMITITES: 2+ edema. Objective - Vital Signs Vital signs: Vital Signs Temp 97.7 F 01/07/22 16:00 Pulse 109 H 01/08/22 07:35 Resp 14 01/08/22 07:30 BP 97/62 01/08/22 00:00 Pulse Ox 95 01/08/22 07:30 FiO2 28 01/02/22 16:04 Intake & Output 01/07/22 01/08/22 01/08/22 18:59 06:59 18:59 Intake Total 0687.279 4182.283 206 Output Total 125 104 10 Balance 5974.526 7842.283 196 Weight 113.5 kg 118.7 kg Intake: IV 1137 1112 206 0.45 w/ bicarb 700 600 100 0.9 NACL 240 240 Calcium Gluconate in NaCl 100 2 gm In Saline 1 100ml. bag @ 100 mls/hr IVPB ONCE ONE Rx#:[id number] pressure bags 72 72 6 vancomycin 125 zosyn 100 100 Intake, IV Titration 177.433 98.283 Amount Magnesium Sulfate-D5w Pmx 100 1 gm In Dextrose/Water 1 100ml.bag @ 100 mls/hr IVPB Q1H [facility] Rx#: [id number] Norepinephrine 32 mg In 77.433 98.283 Sodium Chloride 0.9% 218 ml @ 0.5 MCG/KG/MIN 20. 518 mls/hr IV .[id number] [facility] Rx#:[id number] Output: Urine 125 104 10 Other: Voiding Method Indwelling Catheter Indwelling Catheter ABP, PAP, CO, CI - Last Documented Arterial Blood Pressure 134/73 - Labs CBC & Chem 7: 01/08/22 06:00 01/08/22 05:50 Labs: Abnormal Lab Results - Last 24 Hours (Table) 01/07/22 01/07/22 01/07/22 Range/Units 10:25 12:37 13:51 RBC (4.30-5.90) m/uL Hgb (13.0-17.5) gm/dL Hct (39.0-53.0) % RDW (11.5-15.5) % Neutrophils # (1.3-7.7) k/uL APTT 48.1 H (22.0-30.0) sec Sodium (137-145) mmol/L Carbon Dioxide (22-30) mmol/L Glucose (74-99) mg/dL POC Glucose (mg/dL) 208 H (70-110) mg/dL Plasma Lactic Acid Hayden 3.4 H* (0.7-2.0) mmol/L Calcium (8.4-10.2) mg/dL Ionized Calcium Sukhjinder (4.5-5.3) mg/dL AST (17-59) U/L Alkaline Phosphatase (38-126) U/L Total Protein (6.3-8.2) g/dL Albumin (3.5-5.0) g/dL 01/07/22 01/07/22 01/07/22 Range/Units 16:22 18:10 22:16 RBC (4.30-5.90) m/uL Hgb (13.0-17.5) gm/dL Hct (39.0-53.0) % RDW (11.5-15.5) % Neutrophils # (1.3-7.7) k/uL APTT (22.0-30.0) sec Sodium 126 L (137-145) mmol/L Carbon Dioxide 19 L (22-30) mmol/L Glucose 160 H (74-99) mg/dL POC Glucose (mg/dL) 231 H 175 H (70-110) mg/dL Plasma Lactic Acid Hayden (0.7-2.0) mmol/L Calcium 6.5 L (8.4-10.2) mg/dL Ionized Calcium Sukhjinder (4.5-5.3) mg/dL AST (17-59) U/L Alkaline Phosphatase (38-126) U/L Total Protein (6.3-8.2) g/dL Albumin (3.5-5.0) g/dL 01/08/22 01/08/22 01/08/22 Range/Units 05:50 05:52 06:00 RBC 3.33 L (4.30-5.90) m/uL Hgb 8.9 L (13.0-17.5) gm/dL Hct 27.9 L (39.0-53.0) % RDW 18.9 H (11.5-15.5) % Neutrophils # 8.0 H (1.3-7.7) k/uL APTT (22.0-30.0) sec Sodium 127 L (137-145) mmol/L Carbon Dioxide (22-30) mmol/L Glucose 127 H (74-99) mg/dL POC Glucose (mg/dL) 140 H (70-110) mg/dL Plasma Lactic Acid Hayden (0.7-2.0) mmol/L Calcium 6.7 L (8.4-10.2) mg/dL Ionized Calcium Sukhjinder 4.2 L (4.5-5.3) mg/dL AST 61 H (17-59) U/L Alkaline Phosphatase 230 H (38-126) U/L Total Protein 3.7 L (6.3-8.2) g/dL Albumin 1.6 L (3.5-5.0) g/dL 01/08/22 Range/Units 07:20 RBC (4.30-5.90) m/uL Hgb (13.0-17.5) gm/dL Hct (39.0-53.0) % RDW (11.5-15.5) % Neutrophils # (1.3-7.7) k/uL APTT (22.0-30.0) sec Sodium (137-145) mmol/L Carbon Dioxide (22-30) mmol/L Glucose (74-99) mg/dL POC Glucose (mg/dL) 150 H (70-110) mg/dL Plasma Lactic Acid Hayden (0.7-2.0) mmol/L Calcium (8.4-10.2) mg/dL Ionized Calcium Sukhjinder (4.5-5.3) mg/dL AST (17-59) U/L Alkaline Phosphatase (38-126) U/L Total Protein (6.3-8.2) g/dL Albumin (3.5-5.0) g/dL Microbiology - Last 24 Hours (Table) 01/06/22 02:25 Blood Culture - Preliminary Blood No Growth after 48 hours 01/05/22 18:30 Blood Culture - Preliminary Blood No Growth after 48 hours Assessment and Plan Plan: Assessment: 1. Acute kidney injury secondary to ATN secondary to hypotension/shock. Creatinine 1.19 today. Urine output about 10 mL an hour. 2. Hyponatremia. Now hypervolemic. 3. Shock. Possibly septic possible source gallbladder versus decubitus ulcer. On antibiotics. On vasopressor support. 4. Lower extremity edema. Albumin 1.6. 5. Metabolic acidosis secondary to acute kidney injury maintained on bicarb drip. Plan: Change IV fluids to D5W 3 A of bicarb to be run at 50 mL an hour. 25 g IV albumin today. 80 mg IV Lasix once after albumin infusion. Encourage oral intake. Wean vasopressors. Continue to assess daily for need for renal replacement therapy. Stop maintenance potassium supplementation.
[2022-01-08] MEDS: ALBUMIN HUMAN 25% 50 ML in EMPTY BAG 1 BAG IVPB SCH ×5 (09:07→23:11)
[2022-01-08] MEDS ORDERED: CALCIUM GLUCONATE IN NACL 2 GM in SALINE 1 100ML.BAG IVPB ONE (10:00)
[2022-01-08] MEDS: DEXTROSE 5% IN WATER 1,000 ML with SODIUM BICARB (1 MEQ/ML) 150 ML IV SCH (10:54)
--- NOTE | 2022-01-08 11:20 | P.PN ---
Progress Note - Text Progress Note Date: 01/08/22 Patient still in the ICU. We will perform PEG tube placement when medically stable.
[2022-01-08 13:28] LABS: Glucose,Whole Blood 290 mg/dL (70-110)
[2022-01-08 17:44] LABS: Glucose,Whole Blood 278 mg/dL (70-110)
--- NOTE | 2022-01-08 18:59 | P.PN ---
Subjective this is a pleasant 61 yo M with past medical history of COPD, Diabetes Mellitus, Deep Vein Thrombosis, Hyperlipidemia, Hypertension, Sleep Apnea/CPAP/BIPAP He was in the hospital on 09/2021 for severe hypertension from decreased oral intake, acute metabolic encephalopathy, chronic congestive heart failure, diastolic with ejection fraction 55-60%, acute kidney injury, sinus tachycardia, status post cholecystectomy for his gangrenous cholecystitis, restless leg syndrome, BPH, chronic medical debility i talkled to the pt and at bed side , pt is from group home , he was group home since June 2021. At that time she was in the hospital for acute hypoxic respiratory failure of unknown causes. He needed intubation at that time. He had complete opacification in the left hemithorax he had 2 bronchoscopy done which was negative for microbial growth. He has another admission on 09/2021. Patient and states that he came here because he wanted to get the PEG tube because he was not eating anything since June and he lost a lot of weight he used to weigh 333 pounds and now 193. He states that his main issue is no appetite, he denies choking but he has sometimes nausea that prevent him from eating. Is also short of breath with cough and clear yellow phlegm but no chest pain, no abdominal pain. He has loose bowel movement once or twice a week. Also he has unstageable pressure decubitus ulcer status post debridement, he has wound VAC in place. Patient also complaining of from chronic left leg pain and tenderness, he would not allow someone to drop his leg because it hurts a lot. Inspection looks normal, no trauma. Also was complaining from weakness in both lower extremities since June Patient is tachycardic around 110, on admission heart rate was 125 afebrile. His lab reviewed including CBC showed mild anemia of 11.9, rest of CBC is unremarkable. INR is unremarkable at 1.1. Sodium was low at 123. Creatinine normal 0.8. Glucose was low at 66. Chest x-ray: No acute process. 01/02/2022 Last night patient was started on therapeutic dose Lovenox for acute right leg DVT, CT angiography chest and echo could not be done because have no IV access, patient was transferred to a small IV access was obtained in the right upper arm, not good enough for CT of the chest test or aggressive treatment. However IV fluids could be provided. Blood pressure is improved up to 110/68, however patient still tachycardic. Patient could not eat because of severe nausea and vomiting, H time he put something in his monthly follow-up as per bedside nurse, KUB showing some evidence of ileus, surgical team consult obtained. Social evaluation under direct consults are pending. 01/03/2022 Patient awake alert, looks more comfortable than the first taken to the hospital, less tachypneic, he denies any chest pain or abdominal pain. He tried to take small bites of mashed potato yesterday and he could not consume it and he immediately felt to throw up. CT of the chest is negative for PE, he remains on Lovenox for acute right DVT. CT of the abdomen is suspicious for a complex collection possible abscess although it's the size 5 cm diameter 2.7 cm, recommended ultrasound versus MRI, were going to order a liver ultrasound although it is of less sensitivity especially with this patient large body habitus however it is less invasive than MRI. Also flowcalcitonin is the slightly elevated. He is slightly tachycardic although is better than before. Blood pressure 93/63. Today sodium dropped 127 down to 122 because of this we held his IV fluids and reordered anemia workup in the urine and the serum, we will monitor his sodium level tomorrow if no improvement and may consider further workup. Surgical team consult is called, the plan for PEG tube placement on . Patient originally came to the hospital the PEG tube placement. Patient is not consuming his oral medication but we stopped his gabapentin and ropinirole. 01/04/2022 Kirsten Bach feels better today, he does not feel dizziness while he is lying in bed all the time. He still have low appetite but no chest pain or dyspnea, no abdominal pain. He still complaining from pain in his legs and he has right leg DVT been on Lovenox with plan to switch him to heparin drip on today as he got midline Blood pressure is 87/56, heart rate 120, sodium is 121 On admission his sodium was still low and was started on D5 normal saline at 100 mL/h however after initial improvement sodium dropped to 121 yesterday so we held his IV fluid and the evening sodium improved 124 (no iv lasix given), however this morning is 121 again. We send urine studies and I'll consult power and recovery superintendent. Also patient has negative CTPA for pulmonary embolism but CT of the abdomen and pelvis showing possible gallbladder fossa abscess or complex fluid collection although it is improved from previous 5 cm down to 2.7 centimeters. The recommended liver ultrasound versus MRI, ultrasound shows the same findings. Also surgery due on the case 01/05/2022 Last night his blood pressure dropped with systolic and 50s, there was a rapid response a team response and he was as stated with IV fluids aggressively, his blood pressure improved in 90s this morning and during the round he was awake and alert looks tired but is appropriate. Sodium was 121 and then 119. He denied any chest pain or abdominal pain, no other complaints clinically. His losing from his puncture wound in the right lower abdomen was a stopped, he was started on heparin drip per recommendation of education and training coordinator. After once by the evening time his blood pressure dropped again was 53/32 with altered mental status, there was another rapid response where patient was transferred to the ICU and levophed was started and his mentation started to improve again. Patient was started also on antibiotic empirically with Zosyn and IV vancomycin total infection ruled out completely as there is still high suspicion, with possible sources including the pressure wound sacral ulcer in the lower back, and less likely the gallbladder bed and fossa with 2.7 cm fluid collection (felt less likely because actually it decreased in size from 5.0 cm previously) After transfer patient and at bedside opted for the DO NOT RESUSCITATE order as per bedside nurse. 01/06/2022 Yesterday patient was still deteriorating, however today patient turned around and start improving patient remains in the ICU he needs to pressors we will fit and vasopressin, lactic acid trending up 6.4. Patient mentation is also deteriorated and become more confused and less responsive. His creatinine remains around 1 although he has low urine output. Patient is resuscitated with many fluids and also his broad-spectrum antibiotics with IV vancomycin and Zosyn, as septic shock is highly suspected is the cause of the patient profound hypotension and shock state. Although other factors might be contributing to it. Because of this we started the patient on hydrocortisone to increase the sensitivity of the adrenergic receptors to the catecholamine. Also replacing electrolytes including calcium and magnesium. Sodium slightly t rending up. Patient remains in critical condition. Family at bedside 01/07/2022 Patient today workup and he was awake alert and oriented 3, he follows commands, he feels hungry and actually he started tolerating diet for the first time after several months. He denies any respiratory symptoms, his abdomen looks benign, no other new complaints. Blood pressure is improving and he required less pressors, currently blood pressure is 87/61, is less tachycardic around 110. He is currently on levophed 0.03 which is decreased from yesterday. Last night we added hydrocortisone 100 mg 3 times a day as a replacement therapy but to support blood pressure and increased sensitivity of levophed to its adr energic receptors. Since blood pressure improvement with lower dose to 50 mg today, possibly we will discontinue it in one or 2 days once blood pressure keep improvement. Also patient receiving fluids. Labs looks stable, hemoglobin 9.8, sodium 126 he remains on Zosyn, vancomycin was discontinued. He remains on Zosyn. Anticoagulation is switched to Eliquis therapeutic dose at 10 mg which could be switched to 5 mg on 01/17. Prognosis remains guarded 01/08/2022 Patient is awake but drowsy, His blood pressure is improving but he still on pressors although is requiring less amount He has poor urine output but creatinine is around 1.1. His GFR is 66. He is going to receive 1 dose of Lasix 80 mg today. Also significant sodium bicarb and albumin infusion. He remains on Zosyn Anticoagulation with Eliquis Review of systems CONSTITUTIONAL: No fever, no malaise, no fatigue. HEENT: No recent visual problems or hearing problems. Denied any sore throat. CARDIOVASCULAR: No orthopnea, PND, no palpitations, no syncope. PULMONARY: No shortness of breath, no cough, no hemoptysis. NEUROLOGICAL: No headaches, no weakness, no numbness. HEMATOLOGICAL: Denies any bleeding or petechiae. Active Medications Generic Name Dose Route Start Last Admin Trade Name Freq PRN Reason Stop Dose Admin Hydrocodone Bitart/Acetaminophen 1 each 12/31/21 20:41 01/08/22 13:23 Hydrocodone/Apap 5-325mg 1 Each Tab PO 1 each Q6HR PRN Administration Pain Albuterol Sulfate 2.5 mg 12/31/21 20:41 12/31/21 21:36 Albuterol Nebulized 2.5 Mg/3 Ml INHALATION 2.5 mg Q2H PRN Administration [employer] PATENCY Albuterol/Ipratropium 3 ml 01/01/22 08:00 01/08/22 16:03 Ipratropium-Albuterol 3 Ml Neb INHALATION 3 ml RT-QID ERINN Administration Apixaban 10 mg 01/07/22 21:00 01/08/22 08:07 Apixaban 5 Mg Tab PO 01/14/22 21:01 10 mg BID ERINN Administration Protocol Ascorbic Acid 1,000 mg 01/01/22 08:00 01/08/22 08:08 Ascorbic Acid 500 Mg Tab PO 1,000 mg DAILY@0800 ERINN Administration Cholecalciferol 25 mcg 01/01/22 09:00 01/08/22 08:07 Cholecalciferol 25 Mcg (1000 Iu) Tablet PO 25 mcg DAILY ERINN Administration Dronabinol 5 mg 01/01/22 12:00 01/08/22 17:15 Dronabinol 2.5 Mg Cap PO 5 mg BID@1200,1700 ERINN Administration Folic Acid 1 mg 01/01/22 09:00 01/08/22 08:08 Folic Acid 1 Mg Tab PO 1 mg DAILY ERINN Administration Hydromorphone HCl 0.5 mg 12/31/21 20:44 01/07/22 21:50 Hydromorphone 0.5 Mg/0.5 Ml Syringe IVP 0.5 mg Q4HR PRN Administration Pain Norepinephrine Bitartrate 32 250 mls @ 20.518 mls/hr 01/05/22 23:15 01/08/22 17:36 mg/ Sodium Chloride IV 0.1 mcg/kg/min .[id number] ERINN 4.104 mls/hr Administration Protocol 0.5 MCG/KG/MIN Vasopressin 60 unit/ Sodium 153 mls @ 4.59 mls/hr 01/05/22 23:45 01/08/22 10:01 Chloride IV 0.03 units/min .Q24H ERINN 4.59 mls/hr Administration Protocol 0.03 UNITS/MIN Lactated Ringer's 1,000 mls @ 20 mls/hr 01/06/22 01:32 01/08/22 02:51 Lactated Ringers IV Not Given .Q24H ERINN Piperacillin Sod/Tazobactam 100 mls @ 25 mls/hr 01/06/22 20:00 01/08/22 11:55 Sod 3.375 gm/ Sodium Chloride IVPB 25 mls/hr Q8H ERINN Administration Protocol Sodium Bicarbonate 150 ml/ 1,150 mls @ 50 mls/hr 01/08/22 09:00 01/08/22 10:54 Dextrose/Water IV 50 mls/hr .Q23H ERINN Administration Albumin Human 50 ml/ IV 50 mls @ 50 mls/hr 01/09/22 00:00 Solution IVPB 01/09/22 01:59 Q1H ERINN Insulin Aspart 0 unit 01/07/22 21:00 01/08/22 17:44 Insulin Aspart (Novolog) 100 Unit/Ml Vial SQ 7 unit ACHS ERINN Administration Protocol Lidocaine HCl 0.1 ml 01/06/22 01:32 Lidocaine 1% (10mg/Ml) For Iv Start INTRADERMA PER PROTOCOL PRN IV Start Magnesium Oxide 400 mg 01/02/22 02:00 01/08/22 17:16 Magnesium Oxide 400 Mg Tab PO 400 mg TID ERINN Administration Metoclopramide HCl 10 mg 01/03/22 18:00 01/08/22 17:16 Metoclopramide 5 Mg/Ml 2 Ml Vial IVP 10 mg Q6HR ERINN Administration Metoprolol Tartrate 50 mg 01/01/22 08:00 01/08/22 17:09 Metoprolol Tartrate 50 Mg Tab PO Not Given BID@0800,1600 ERINN Midodrine 10 mg 01/05/22 12:30 01/08/22 17:16 Midodrine 5 Mg Tab PO 10 mg AC-TID ERINN Administration Miscellaneous Information 1 each 01/02/22 06:58 Magnesium Replacement Protocol 1 Each Misc MISCELLANE DAILY PRN Per Protocol Protocol Miscellaneous Information 1 each 01/02/22 07:03 Potassium Replacement Protocol 1 Each Misc MISCELLANE DAILY PRN Per Protocol Protocol Multivitamins 1 each 01/01/22 09:00 01/08/22 08:08 Multivitamins, Thera 1 Each Tab PO 1 each DAILY ERINN Administration Naloxone HCl 0.2 mg 12/31/21 14:52 Naloxone 0.4 Mg/Ml 1 Ml Vial IV Q2M PRN Opioid Reversal Ondansetron HCl 4 mg 12/31/21 21:23 01/02/22 18:15 Ondansetron 4 Mg/2 Ml Vial IVP 4 mg Q6HR PRN Administration Nausea And Vomiting Pantoprazole Sodium 40 mg 12/31/21 21:00 01/08/22 08:07 Pantoprazole 40 Mg/10 Ml Vial IVP 40 mg BID ERINN Administration Sodium Bicarbonate 650 mg 01/07/22 09:00 01/08/22 17:15 Sodium Bicarbonate Tab 650 Mg Tab PO 650 mg TID ERINN Administration Tamsulosin HCl 0.4 mg 01/01/22 09:00 01/08/22 08:07 Tamsulosin 0.4 Mg Cap.Er.24h PO 0.4 mg DAILY ERINN Administration Objective - Vital Signs Vital signs: Vital Signs Temp 97.6 F 01/08/22 08:00 Pulse 106 H 01/08/22 11:28 Resp 13 01/08/22 10:00 BP 97/62 01/08/22 00:00 Pulse Ox 100 01/08/22 10:00 FiO2 28 01/02/22 16:04 Intake & Output 01/07/22 01/08/22 01/08/22 18:59 06:59 18:59 Intake Total 5609.827 4821.283 1016.369 Output Total 125 104 80 Balance 8520.059 1115.283 936.369 Weight 113.5 kg 118.7 kg Intake: IV 1137 1112 524 0.45 w/ bicarb 700 600 200 0.9 NACL 240 240 Albumin Human 25% 50 ml 100 In Empty Bag 1 bag @ 50 mls/hr IVPB Q1H REINN Rx#: [id number] Calcium Gluconate in NaCl 100 100 2 gm In Saline 1 100ml. bag @ 100 mls/hr IVPB ONCE ONE Rx#:[id number] pressure bags 72 72 24 vancomycin 125 zosyn 100 100 Intake, IV Titration 177.433 98.283 270.369 Amount Magnesium Sulfate-D5w Pmx 100 1 gm In Dextrose/Water 1 100ml.bag @ 100 mls/hr IVPB Q1H ERINN Rx#: [id number] Norepinephrine 32 mg In 77.433 98.283 117.369 Sodium Chloride 0.9% 218 ml @ 0.5 MCG/KG/MIN 20. 518 mls/hr IV .[id number] ERINN Rx#:[id number] Sodium Chloride 0.9% 150 153 ml @ 0.03 UNITS/MIN 4.59 mls/hr IV .Q24H ERINN with Vasopressin 60 unit Rx#: [id number] Oral 222 Output: Urine 125 104 80 Other: Voiding Method Indwelling Catheter Indwelling Catheter ABP, PAP, CO, CI - Last Documented Arterial Blood Pressure 121/63 - Exam GENERAL: The patient is alert and oriented x3, in no mild acute distress. BMI is 29.3. Patient looks pale and tachycardic HEENT: Pupils are round and equally reacting to light. EOMI. No scleral icterus. No conjunctival pallor. Normocephalic, atraumatic. No pharyngeal erythema. No thyromegaly. CARDIOVASCULAR: S1 and S2 present. No murmurs, rubs, or gallops. Mild tachypnea PULMONARY: Chest is clear to auscultation, no wheezing or crackles. ABDOMEN: Soft, nontender, nondistended, normoactive bowel sounds. No palpable organomegaly. -MUSCULOSKELETAL: No joint swelling or deformity. Unstageable sacral pressure ulcer -EXTREMITIES: No cyanosis, clubbing, or pedal edema. Left leg tenderness -NEUROLOGICAL: Cranial nerves are grossly intact. He has severe chronic bilateral lower extremity weakness (chronic 6 month as per pt), meningeal signs are absent. No sensory abnormality, no numbness or tingling SKIN: No rashes. no petechiae. - Labs CBC & Chem 7: 01/08/22 06:00 01/08/22 05:50 Labs: Abnormal Lab Results - Last 24 Hours (Table) 01/07/22 01/07/22 01/07/22 Range/Units 12:37 13:51 16:22 RBC (4.30-5.90) m/uL Hgb (13.0-17.5) gm/dL Hct (39.0-53.0) % RDW (11.5-15.5) % Neutrophils # (1.3-7.7) k/uL Sodium 126 L (137-145) mmol/L Carbon Dioxide 19 L (22-30) mmol/L Glucose 160 H (74-99) mg/dL POC Glucose (mg/dL) 208 H (70-110) mg/dL Plasma Lactic Acid Hayden 3.4 H* (0.7-2.0) mmol/L Calcium 6.5 L (8.4-10.2) mg/dL Ionized Calcium Sukhjinder (4.5-5.3) mg/dL AST (17-59) U/L Alkaline Phosphatase (38-126) U/L Total Protein (6.3-8.2) g/dL Albumin (3.5-5.0) g/dL 01/07/22 01/07/22 01/08/22 Range/Units 18:10 22:16 05:50 RBC (4.30-5.90) m/uL Hgb (13.0-17.5) gm/dL Hct (39.0-53.0) % RDW (11.5-15.5) % Neutrophils # (1.3-7.7) k/uL Sodium 127 L (137-145) mmol/L Carbon Dioxide (22-30) mmol/L Glucose 127 H (74-99) mg/dL POC Glucose (mg/dL) 231 H 175 H (70-110) mg/dL Plasma Lactic Acid Hayden (0.7-2.0) mmol/L Calcium 6.7 L (8.4-10.2) mg/dL Ionized Calcium Sukhjinder 4.2 L (4.5-5.3) mg/dL AST 61 H (17-59) U/L Alkaline Phosphatase 230 H (38-126) U/L Total Protein 3.7 L (6.3-8.2) g/dL Albumin 1.6 L (3.5-5.0) g/dL 01/08/22 01/08/22 01/08/22 Range/Units 05:52 06:00 07:20 RBC 3.33 L (4.30-5.90) m/uL Hgb 8.9 L (13.0-17.5) gm/dL Hct 27.9 L (39.0-53.0) % RDW 18.9 H (11.5-15.5) % Neutrophils # 8.0 H (1.3-7.7) k/uL Sodium (137-145) mmol/L Carbon Dioxide (22-30) mmol/L Glucose (74-99) mg/dL POC Glucose (mg/dL) 140 H 150 H (70-110) mg/dL Plasma Lactic Acid Hayden (0.7-2.0) mmol/L Calcium (8.4-10.2) mg/dL Ionized Calcium Sukhjinder (4.5-5.3) mg/dL AST (17-59) U/L Alkaline Phosphatase (38-126) U/L Total Protein (6.3-8.2) g/dL Albumin (3.5-5.0) g/dL Microbiology - Last 24 Hours (Table) 01/06/22 02:25 Blood Culture - Preliminary Blood No Growth after 48 hours 01/05/22 18:30 Blood Culture - Preliminary Blood No Growth after 48 hours Assessment and Plan Assessment: Severe hypotension and shock state requiring pressors, possible septic shock Complex liver collection adjacent to gallbladder fossa 2.7 cm suspicious for abscess versus other Hyponatremia Persistent nausea and vomiting secondary to ileus, Acute right leg DVT Severe appetite loss associated with Loss of weight and nausea Dehydration and hypovolemia, improving Unstageable chronic decubitus ulcer status post wound VAC placement Anemia of chronic diseases mellitus, With hyperglycemia on admission Hypertension Hyperlipidemia History of COPD Chronic congestive heart failure with ejection fraction 55-60% History of metabolic encephalopathy Sinus tachycardia Status post cholecystectomy Restless leg syndrome BPH Chronic medical debility Plan: This is a pleasant 61 years old male who presents with dehydration, loss of appetite and loss of weight, hyponatremia, bilateral leg pain and other medical problems pulmonary/critical care input is appreciated and they are following the patient closely continue with pressors and ICU management as per promotional marketing analyst and pulmonary care team Start the patient empirically on Zosyn . vancomycinwas discontinued. follow-up blood culture Discontinue hydrocortisone Keep monitoring sodium. nephrologis on the case patient started on Eliquis per hematology team recommendation Labs and medication reviewed. Continue with symptomatic treatment. Resume home medication. Monitor lytes and vitals. DVT and GI prophylaxis. Further recommendations as per clinical course of the patient DVT prophylaxis: Eliquisxis GI prophylaxis: Ppi Prognosis is guarded
[2022-01-08 20:11] LABS: Glucose,Whole Blood 301 mg/dL (70-110)
[2022-01-09] MEDS: ALBUMIN HUMAN 25% 50 ML in EMPTY BAG 1 BAG IVPB SCH (00:44)
[2022-01-09] MEDS: NOREPINEPHRINE 32 MG in SODIUM CHLORIDE 0.9% 218 ML IV SCH ×2 (00:50→16:05)
[2022-01-09] MEDS: LACTATED RINGERS 1,000 ML IV SCH (01:50)
[2022-01-09] MEDS: PIPERACILLIN-TAZOBACTAM 3.375 GM in SODIUM CHLORIDE 0.9% 100 ML IVPB SCH ×3 (03:32→19:46)
[2022-01-09 04:30] LABS: Albumin 2.2 g/dL (3.5-5.0); Calcium 7.2 mg/dL (8.4-10.2); Potassium 3.2 mmol/L (3.5-5.1); Total Bilirubin 0.3 mg/dL (0.2-1.3); Total Protein 3.9 g/dL (6.3-8.2)
[2022-01-09 04:43] LABS: Anisocytosis Slight; Basophils % (A) 0 %; Eosinophils # (A) 0.1 k/uL (0-0.7); Eosinophils % (A) 2 %; Lymphocytes # (A) 1.2 k/uL (1.0-4.8); Lymphocytes % (A) 20 %; MCH 26.8 pg (25.0-35.0); MCHC 32.3 g/dL (31.0-37.0); MCV 82.9 fL (80.0-100.0); Mean Platelet Volume 8.9; Microcytosis Slight; Monocytes # (A) 0.2 k/uL (0-1.0); Monocytes % (A) 3 %; Neutrophils # (A) 4.4 k/uL (1.3-7.7); Neutrophils % (A) 74 %; Platelet Count 173 k/uL (150-450); RBC 2.06 m/uL (4.30-5.90); WBC 5.9 k/uL (3.8-10.6)
[2022-01-09 04:52] LABS: HCT 17.1 % (39.0-53.0); HGB 5.5 gm/dL (13.0-17.5)
[2022-01-09 05:51] LABS: Anisocytosis Slight; Basophils % (A) 0 %; Eosinophils # (A) 0.1 k/uL (0-0.7); Eosinophils % (A) 2 %; Lymphocytes # (A) 1.1 k/uL (1.0-4.8); Lymphocytes % (A) 20 %; MCH 26.7 pg (25.0-35.0); MCHC 31.9 g/dL (31.0-37.0); MCV 83.6 fL (80.0-100.0); Mean Platelet Volume 8.3; Microcytosis Slight; Monocytes # (A) 0.2 k/uL (0-1.0); Monocytes % (A) 3 %; Neutrophils # (A) 4.1 k/uL (1.3-7.7); Neutrophils % (A) 74 %; Platelet Count 179 k/uL (150-450); RBC 2.07 m/uL (4.30-5.90); RDW 19.3 % (11.5-15.5); WBC 5.6 k/uL (3.8-10.6)
[2022-01-09 05:53] LABS: HCT 17.3 % (39.0-53.0); HGB 5.5 gm/dL (13.0-17.5)
[2022-01-09] MEDS ORDERED: Potassium Replacement Protocol 1 EACH MISC MISCELLANE PRN ×2 (05:58→21:09)
[2022-01-09] MEDS: POTASSIUM CHLORIDE ER 20 MEQ TAB.ER PO SCH ×4 (06:58→23:12)
[2022-01-09] MEDS: IPRATROPIUM-ALBUTEROL 3 ML NEB INHALATION SCH ×4 (07:31→19:57)
[2022-01-09 08:18] LABS: Glucose,Whole Blood 87 mg/dL (70-110)
--- NOTE | 2022-01-09 08:54 | P.PN ---
Subjective Progress Note Date: 01/09/22 I was asked to evaluate this patient and chance for him to the intensive care unit and the patient has been quite elevated cardiac and hypotensive in addition to significant electrolyte and blood abnormalities. The patient is known to have multiple comorbidities. He has COPD, diabetes mellitus, hypertension , and addition to obstructive sleep apnea and the patient utilizes CPAP machine. The patient had an open cholecystectomy for gangrenous cholecystitis and the surgery was on 09/17/2021. At that time, the patient was quite ill and septic. He developed acute respiratory failure following his surgery and the patient was extubated successfully. During the course of the illness, the patient and acute kidney injury and he was initially on hemodialysis via permacath. The patient presented back to our hospital from the long term where he was residing and the patient was quite lethargic and dehydrated. The patient apparently was initially brought into the hospital for a PEG tube placement as the patient wasn't eating or drinking and he had lost significant amount of weight. He has also developed a pressure ulcer of his left gluteal area and the patient was seen by the wound care team and the patient has a wound VAC applied to that area. There was a concern for development of a abscess in the liver. A CAT scan of the abdomen was done that raised concerns for a fluid collection/abscess in the gallbladder fossa and a similar findings were also seen on the ultrasound of the abdomen. The case was reviewed by interventional radiology. This finding was quite deep in the abdomen and limited for percutaneous access. Based on that, no intervention was done. Over the past 24 hours, the patient has been acting more septic. The patient was hypotensive and the A team was activated. The patient apparently was running a lower blood pressure. The patient also had been refusing to take his medication. He was given fluid boluses. He was started on bicarb infusion at the rate of 75 mL an hour and he was also started on midodrine and salt tablets. He was noted to be hyponatremic. Subsequently, his condition decompensated and this afternoon, the patient was examined the lethargic, unresponsive, labs showed a sodium level of 119, serum bicarb was 16 with a anion gap of 6. BUN was 11 with a creatinine of 0.6. The pro-calcitonin level was 0.3. The patient had a White second of 9.0 with a hemoglobin of 9.6. Coagulation profile was within normal limits. The sodium level is 119 with a serum bicarb of 16 and an anion gap of 6. Noted the patient was hyponatremic during this current admission. The sodium level progressively dropped and the patient did not respo nd to normal saline. Urine sodium was low, less than 20 but urine osmolality was at 454. The patient was seen by nephrology and the normal saline was discontinued. For now, the patient is on a bicarb infusion at the rate of 70 mL an hour. He was started also on IV Zosyn. Note that during this current admission, the patient was found to have a right lower extremity DVT and the pat ient was started on Lovenox and this was switched to IV heparin. The patient did not have any pulmonary embolism based on the CT angiogram. Echocardiac Michael showed a preserved LV function. His serum cortisone level was elevated. After the patient being chest to the intensive care unit, he was given a total of 2 L of bolus. He became more alert and responsive. He had to be started on pressors and currently norepinephrine infusion is running at 0.4 mcg/kg per minute. The patient was given a triple lumen catheter and arterial line catheter for intensive hemodynamic monitoring. The patient was started on IV Zosyn and the patient will be given vancomycin. Wound VAC is in place. Abdomen is soft. Mental status is gradually improving. He was able to recognize when he was older to follow simple commands. He is receiving the second bolus of normal saline for now. 01/06/2022, the patient is being seen for a follow-up. This patient is developing progressive hypotension and patient is currently in a shock state. Suspect septic shock although no positive cultures are available. the patient got chest to the ICU yesterday because of hyponatremia, hypotension, shock state and the patient was started with broad-spectrum antibiotics and the patient was resuscitated IV fluids. The patient overnight, was Bicarb Infusion with a Total 150 Mg of Sodium Bicarbonate of 150 ML an Hour. The Patient Was Given a Total of 2 L Normal Saline Bolus Immediately. The Patient Was Started on a Combination of Zosyn and vancomycin. The patient was also started on pressors. Norepinephrine infusion currently running at 0.4 mg/kg per minute and the patient is also on a vasopressin physiologic dose. The patient is also found to have a lactic acid level of 2.1. Pro-calcitonin level is at 0.33, mildly elevated and the troponin was at 0.03. The patient is a preserved LV function based on previous echocardiogram. At the same time, the patient remains on 2 L of oxygen by nasal cannula. Post line chest x-ray showed no evidence of any pneumonia or any other pulmonary complications. On today's evaluation, he remains lethargic. Oral intake is minimal. No nausea or emesis. No abdominal pain. He is arousable and follows simple commands. He feels extremely weak. Denies having any other complaints. Meanwhile, the white cell count today is at 8.9 with hemoglobin of 9.1 and the patient has a platelet count of 366. The PTT was supratherapeutic and is currently on hold and those being adjusted by pharmacy. Sodium level is up to 125 with a BUN of 11 and a creatinine of 1.01. LFTs show an AST of 41, ALT of 23, alkaline phosphatase of 179, serum albumin is 1.7. Stool for occult blood and C. diff were both negative. The patient has still a wound VAC in place. Cultures were sent and the results are still negative for now. 01/07/2022, the patient is much more alert and awake and communicating and answering questions appropriately. He woke up this morning much more comfortable and his breathing is nonlabored. He is still a shock state. He is still being resuscitated with IV fluids. He received a total of 2 L yesterday and he was maintained on a bicarb infusion at the rate of 150 mL an hour. On today's evaluation, his hemodynamics have improved. His blood pressure is adequate while being off pressors and the patient is currently on norepinephrine at a dose of 0.35 Kevin respiratory micrograms per minute and vasopressin is admitted physiologic dose of 0.03 units an hour. Urine output is in order of 15-20 mL an hour. Meanwhile, the patient is in sinus rhythm. No angina. No palpitation. No shortness of breath. He remains on 2 L of oxygen by nasal cannula with a pulse ox of 99%. Cultures of been all negative. His white cell count is at 10.2 with a hemoglobin of 0.8 and a platelet count of 366. He remains on IV heparin with a therapeutic PT this morning. INR is at 1.7 with a PT of 17.1. Sodium level is normalized is up to 1:30 and a serum bicarb is up to 16 with an anion gap of 10. His lactic acid level has been fluctuating and dropped down to 3.8 after being as high as 4.4. His magnesium is being replaced at the level of 1.9. LFTs are normal, alkaline phosphatase is at 238. No abdominal pain. He has extensive thirst spacing an extensive edema in all 4 extremities and the left upper extremity is significantly swollen at this point in time. The patient has a right brachial arterial line catheter in place. Pulses are diminished in all 4 extremities and the patient remains cold and clammy and vasoconstricted. Note that his echo of the heart showed a preserved LV function. As such, the exact cause of shock is not clear although we have high suspicions for her septic shock. The patient was resuscitated with IV fluids, pressors, and broad-spectrum antibiotics. With a combination of Zosyn and vancomycin. Cultures are all negative. Pro-calcitonin level is slightly elevated. Mental status is improved. Stool for C. diff has been negative. Wound VAC is in place. Output from the wound VAC is minimal at this point in time. 01/08/2022, the patient is lethargic yet awake and following commands and answering questions. Extremely weak, oral intake is minimal oblique took some clear liquid diet yesterday and small amounts. Breathing is nonlabored and the patient remains on oxygen at 2 L per minute nasal cannula. Distal extensive thirst spacing and edema both in upper and lower extremity and the patient is not showing good response to diuretics. He was given 2 doses of 80 mg of IV Lasix yesterday with limited response and overall urine output has been in order of 2 70 mL over the past 24 hours. As such, urine output is no longer off 10-50 mL an hour. Nephrology was consulted. Creatinine is at 1.14 which is stable. The patient will be given IV albumin and following that he'll be given Lasix. He'll be given 25 g of IV albumin followed by 80 mg of IV Lasix. Creatinine is going to the monitors. Electrolytes are all stable. The patient's sodium is at 127. Serum bicarb is up to 23. He remains on a bicarb infusion running at the rate of 50 mL an hour. His serum albumin currently is at 1.6. At the same time, the patient remains hypotensive. His pressor requirements have dropped compared to yesterday. He remains on norepinephrine which is currently running at 0.18 mcg/kg per minute and the patient remains on a physiologic dose of vasopressin. As mentioned, all of the cultures of been negative. His abdomen is slightly tense and there may be some subcutaneous edema. No nausea. No emesis. No fever. The white cell count is at 9.5 with a hemoglobin of 8.9 and the blood work is essentially stable. As mentioned, the patient's pro- calcitonin was mildly elevated at 0.33. Stool for C. diff has been negative. The patient remains on IV Zosyn and vancomycin. Wound VAC is still in place. Output from the wound VAC is minimal at this point in time. He has a triple- lumen catheter in his left subclavian and he has also a right brachial arterial line catheter. Calcium on and off has been noted to be low and the patient is being supplemented with IV calcium. 01/09/2022 I'm seeing this patient for a follow-up. Since yesterday, the patient clinically is unchanged. He is weak and quite debilitated. Nevertheless, hemodynamically, his condition has somewhat improved as the patient is requiring significant lower doses of pressors. In fact, his norepinephrine infusion is down to 0.07 mcg/kg per minute and the vasopressin is at 0.03 an hour and the patient is able to maintain his own blood pressure in the patient's overall circulation, pulses in lower extremities and upper extremity is improved considerably. The patient continues to have increased edema in all 4 extremities. He was started on diuretics. He was given a dose of IV albumin yesterday 25 g and following that he was given diuretics in the urine output is obviously improving. He has produced 900 mL of urine output over the past 12 hours. The first on the case. Creatinine today is at 1.25. Sodium level is at 128. Serum bicarbs at 23 and we elected to discontinue the bicarb infusion. Otherwise, the patient has no major respiratory difficulties. He remains on oxygen at 2 L per minute nasal cannula. There is a drop in hemoglobin the morning blood work and hemoglobin was down to 5.5 and this was confirmed on 2 separate blood tests. We'll going to transfuse a total of 2 units of packed RBC. I contacted his and his power of employment attorney and we okayed the blood transfusion. Note that his lactic acid level is also down to 3.6. He remains on IV Zosyn. Wound VAC is in place. Triple-lumen catheter is in place. Rest of the electrolytes are all stable. Oral intake remains quite diminished we will encourage increase oral intake. He is taking essentially clear liquid diet for now. No abdominal pain. No nausea or emesis. Cultures are obviously negative and the patient is afebrile. Objective - Vital Signs Vital signs: Vital Signs Temp 97.1 F L 01/09/22 04:00 Pulse 101 H 01/09/22 07:43 Resp 12 01/09/22 07:00 BP 82/59 01/08/22 23:00 Pulse Ox 100 01/09/22 07:31 FiO2 28 01/02/22 16:04 Intake & Output 01/08/22 01/09/22 01/09/22 18:59 06:59 18:59 Intake Total 2235.682 367.323 11.832 Output Total 270 660 Balance 1965.682 -292.677 11.832 Weight 117.5 kg Intake: IV 1122 328 0.45 w/ bicarb 200 Albumin Human 25% 50 ml 200 50 In Empty Bag 1 bag @ 50 mls/hr IVPB Q1H ERINN Rx#: [id number] Calcium Gluconate in NaCl 100 2 gm In Saline 1 100ml. bag @ 100 mls/hr IVPB ONCE ONE Rx#:[id number] Dextrose 5% in Water 1, 350 000 ml @ 50 mls/hr IV . Q23H ERINN with Sodium Bicarb (1 Meq/ml) 150 ml Rx#:[id number] pressure bags 72 78 zosyn 200 200 Intake, IV Titration 291.682 39.323 11.832 Amount Norepinephrine 32 mg In 138.682 39.323 11.832 Sodium Chloride 0.9% 218 ml @ 0.5 MCG/KG/MIN 20. 518 mls/hr IV .[id number] ERINN Rx#:[id number] Sodium Chloride 0.9% 150 153 ml @ 0.03 UNITS/MIN 4.59 mls/hr IV .Q24H ERINN with Vasopressin 60 unit Rx#: [id number] Oral 822 Output: Urine 270 660 Other: Voiding Method Indwelling Catheter Indwelling Catheter # Bowel Movements 1 ABP, PAP, CO, CI - Last Documented Arterial Blood Pressure 131/63 - Exam Gen. appearance the patient is awake and alert and is following simple commands. He is profoundly weak in all 4 extremities. No agitation. No delirium. A wake and alert and following commands and answering questions appropriately. The patient is currently on 2 L of oxygen by nasal cannula. Head exam was generally normal. There was no scleral icterus or corneal arcus. Mucous membranes were moist. Neck was supple and without jugular venous distension, thyromegaly, or carotid bruits. Carotids were easily palpable bilaterally. There was no adenopathy. Lungs were clear to auscultation and percussion, and with normal diaphragmatic excursion. No wheezes or rales were noted. Heart sounds are distant positive sinus and there is no significant murmurs appreciated Abdominal exam revealed normal bowel sounds. The abdomen was soft, non-tender, and without masses, organomegaly, or appreciable enlargement of the abdominal aorta. Patient is also developed some bleeding from the skin at the site of Lovenox injections. There is areas of ecchymosis. No direct tenderness. No rebound tenderness. No guarding. Surgical wound site over the right upper quadrant at the site of the open cholecystectomy dry clean and intact. Bowel sounds are hypoactive at the present. No distention. No ascites. Extremities are quite adequate pulses bilaterally, no cyanosis. Neurologically the patient is following commands and answering questions. No focal neuro logical deficits. Profoundly weak, extensive edema in all 4 extremities mainly in the left upper extremity that needs to be further worked up. Skin the patient has a wound VAC in his pulse ox regarding his stage IV sacral decubitus ulceration. - Labs CBC & Chem 7: 01/09/22 05:30 01/09/22 04:00 Labs: Abnormal Lab Results - Last 24 Hours (Table) 01/08/22 01/08/22 01/08/22 Range/Units 13:26 15:15 17:41 RBC (4.30-5.90) m/uL Hgb (13.0-17.5) gm/dL Hct (39.0-53.0) % RDW (11.5-15.5) % ABG Lactic Acid 3.6 H* (0.5-1.6) mmol/L Sodium (137-145) mmol/L Potassium (3.5-5.1) mmol/L Glucose (74-99) mg/dL POC Glucose (mg/dL) 290 H 278 H (70-110) mg/dL Calcium (8.4-10.2) mg/dL Alkaline Phosphatase (38-126) U/L Total Protein (6.3-8.2) g/dL Albumin (3.5-5.0) g/dL Crossmatch 01/08/22 01/09/22 01/09/22 Range/Units 20:09 04:00 04:35 RBC 2.06 L (4.30-5.90) m/uL Hgb 5.5 L* D (13.0-17.5) gm/dL Hct 17.1 L* (39.0-53.0) % RDW 19.0 H (11.5-15.5) % ABG Lactic Acid (0.5-1.6) mmol/L Sodium 128 L (137-145) mmol/L Potassium 3.2 L (3.5-5.1) mmol/L Glucose 115 H (74-99) mg/dL POC Glucose (mg/dL) 301 H (70-110) mg/dL Calcium 7.2 L (8.4-10.2) mg/dL Alkaline Phosphatase 127 H (38-126) U/L Total Protein 3.9 L (6.3-8.2) g/dL Albumin 2.2 L (3.5-5.0) g/dL Crossmatch 01/09/22 01/09/22 Range/Units 05:30 05:30 RBC 2.07 L (4.30-5.90) m/uL Hgb 5.5 L* (13.0-17.5) gm/dL Hct 17.3 L* (39.0-53.0) % RDW 19.3 H (11.5-15.5) % ABG Lactic Acid (0.5-1.6) mmol/L Sodium (137-145) mmol/L Potassium (3.5-5.1) mmol/L Glucose (74-99) mg/dL POC Glucose (mg/dL) (70-110) mg/dL Calcium (8.4-10.2) mg/dL Alkaline Phosphatase (38-126) U/L Total Protein (6.3-8.2) g/dL Albumin (3.5-5.0) g/dL Crossmatch See Detail Microbiology - Last 24 Hours (Table) 01/06/22 02:25 Blood Culture - Preliminary Blood No Growth after 72 hours 01/05/22 18:30 Blood Culture - Preliminary Blood No Growth after 72 hours Assessment and Plan Plan: Acute shock state, possibly hypovolemic/septic. Cultures are still negative. Pro-calcitonin level is slightly elevated. Responded to fluids and pressors and antibiotics. Patient is afebrile. Pressor requirements are less compared to yesterday. For now, the patient is on a minimum more doses of norepinephrine infusion and vasopressin physiologic dose and I'm hopeful that the norepinephrine will be discontinued today. The patient has developing excessive thirst spacing. Change in mental status, improving with fluid resuscitation and improvement in the blood pressure, currently stable and the patient is awake and following commands although is a bit lethargic. Recent gangrenous cholecystitis with a right cholecystectomy, open. There is a collection in the gallbladder fossa which is most likely benign. Abdominal exam is benign and the patient is not having any abnormalities in liver function tests. Cachexia, failure to meet caloric requirements, weight loss, awaiting a PEG tube insertion, this was placed on hold because of a shock state and the patient will not have a active inserted. DVT of the right lower extremity currently on IV heparin, no evidence of any pulmonary embolism, on anticoagulation link cutter with by mouth Eliquis Stage IV decubitus ulcer currently has a wound VAC in place which could be another source of sepsis. Previous history of kidney failure requiring dialysis, current renal function is normal Hyponatremia, improved and the sodium level is up to 128 Excessive third spacing and edema, will be given IV albumin followed by Lasix Hypoalbuminemia with a serum albumin of 1.6 None Anion gap metabolic acidosis, improving History morbid obesity with ongoing weight loss Diabetes mellitus type 2 Bronchial asthma, chronic unspecified Diabetes mellitus type 2 Obstructive sleep apnea BPH Hypertension Hyperlipidemia Previous history of C. diff colitis, repeat stool for C. diff has been negative Generalized debility due to his medical condition and the patient has been long term resident following his surgery Anemia malignant acute drop in hemoglobin down to 5.5, currently under investigation Plan We'll transfuse this patient with 2 units of packed RBC and repeat hemoglobin and evaluated response. The patient did have a bowel movement yesterday and there was no bleeding. We'll keep anticoagulation for now and monitor the hemoglobin very closely. This can be also dilutional as the patient is having significant amount of thirst spacing and fluid overload and edema. We'll give this patient Lasix 40 mg IV every 12 hours Stop the bicarb infusion Wean off pressors and discontinue including norepinephrine for select on vasopressin Continue IV Zosyn for now Hemodynamically improved although the long-term prognosis remains poor specially with his debility and poor oral intake and impaired performance and functional status. I updated the and the brother on his condition. IV fluids to 50 mL an hour of bicarb infusion.. Continue following up this patient along with aggressive the consultants. Condition is critical. CODE STATUS is DNR/DNI based on patient's wishes. Critically care evaluation done more than 30 minutes
--- NOTE | 2022-01-09 09:07 | P.PN ---
Subjective Patient is seen in follow-up for hyponatremia and acute kidney injury. Currently on vasopressor support. On Levophed and vasopressin. Receiving b icarbonate drip. Urine output improved post Lasix yesterday. Oral intake poor. Sodium level 128 today. Hemoglobin 5.5 today. No active bleeding per the nurse. Vital signs are stable. On vasopressor support. General: Awake. No acute distress. HEENT: Head exam is unremarkable. On nasal cannula. LUNGS: Breath sounds decreased. HEART: Tachycardic. ABDOMEN: Soft, no distention. EXTREMITITES: 2+ edema. Objective - Vital Signs Vital signs: Vital Signs Temp 97.1 F L 01/09/22 04:00 Pulse 101 H 01/09/22 07:43 Resp 12 01/09/22 07:00 BP 82/59 01/08/22 23:00 Pulse Ox 100 01/09/22 07:31 FiO2 28 01/02/22 16:04 Intake & Output 01/08/22 01/09/22 01/09/22 18:59 06:59 18:59 Intake Total 2235.682 367.323 11.832 Output Total 270 660 Balance 1965.682 -292.677 11.832 Weight 117.5 kg Intake: IV 1122 328 0.45 w/ bicarb 200 Albumin Human 25% 50 ml 200 50 In Empty Bag 1 bag @ 50 mls/hr IVPB Q1H ERINN Rx#: [id number] Calcium Gluconate in NaCl 100 2 gm In Saline 1 100ml. bag @ 100 mls/hr IVPB ONCE ONE Rx#:[id number] Dextrose 5% in Water 1, 350 000 ml @ 50 mls/hr IV . Q23H ERINN with Sodium Bicarb (1 Meq/ml) 150 ml Rx#:[id number] pressure bags 72 78 zosyn 200 200 Intake, IV Titration 291.682 39.323 11.832 Amount Norepinephrine 32 mg In 138.682 39.323 11.832 Sodium Chloride 0.9% 218 ml @ 0.5 MCG/KG/MIN 20. 518 mls/hr IV .[id number] ERINN Rx#:[id number] Sodium Chloride 0.9% 150 153 ml @ 0.03 UNITS/MIN 4.59 mls/hr IV .Q24H ERINN with Vasopressin 60 unit Rx#: [id number] Oral 822 Output: Urine 270 660 Other: Voiding Method Indwelling Catheter Indwelling Catheter # Bowel Movements 1 ABP, PAP, CO, CI - Last Documented Arterial Blood Pressure 131/63 - Labs CBC & Chem 7: 01/09/22 05:30 01/09/22 04:00 Labs: Abnormal Lab Results - Last 24 Hours (Table) 01/08/22 01/08/22 01/08/22 Range/Units 13:26 15:15 17:41 RBC (4.30-5.90) m/uL Hgb (13.0-17.5) gm/dL Hct (39.0-53.0) % RDW (11.5-15.5) % ABG Lactic Acid 3.6 H* (0.5-1.6) mmol/L Sodium (137-145) mmol/L Potassium (3.5-5.1) mmol/L Glucose (74-99) mg/dL POC Glucose (mg/dL) 290 H 278 H (70-110) mg/dL Calcium (8.4-10.2) mg/dL Alkaline Phosphatase (38-126) U/L Total Protein (6.3-8.2) g/dL Albumin (3.5-5.0) g/dL Crossmatch 01/08/22 01/09/22 01/09/22 Range/Units 20:09 04:00 04:35 RBC 2.06 L (4.30-5.90) m/uL Hgb 5.5 L* D (13.0-17.5) gm/dL Hct 17.1 L* (39.0-53.0) % RDW 19.0 H (11.5-15.5) % ABG Lactic Acid (0.5-1.6) mmol/L Sodium 128 L (137-145) mmol/L Potassium 3.2 L (3.5-5.1) mmol/L Glucose 115 H (74-99) mg/dL POC Glucose (mg/dL) 301 H (70-110) mg/dL Calcium 7.2 L (8.4-10.2) mg/dL Alkaline Phosphatase 127 H (38-126) U/L Total Protein 3.9 L (6.3-8.2) g/dL Albumin 2.2 L (3.5-5.0) g/dL Crossmatch 01/09/22 01/09/22 Range/Units 05:30 05:30 RBC 2.07 L (4.30-5.90) m/uL Hgb 5.5 L* (13.0-17.5) gm/dL Hct 17.3 L* (39.0-53.0) % RDW 19.3 H (11.5-15.5) % ABG Lactic Acid (0.5-1.6) mmol/L Sodium (137-145) mmol/L Potassium (3.5-5.1) mmol/L Glucose (74-99) mg/dL POC Glucose (mg/dL) (70-110) mg/dL Calcium (8.4-10.2) mg/dL Alkaline Phosphatase (38-126) U/L Total Protein (6.3-8.2) g/dL Albumin (3.5-5.0) g/dL Crossmatch See Detail Microbiology - Last 24 Hours (Table) 01/06/22 02:25 Blood Culture - Preliminary Blood No Growth after 72 hours 01/05/22 18:30 Blood Culture - Preliminary Blood No Growth after 72 hours Assessment and Plan Plan: Assessment: 1. Acute kidney injury secondary to ATN secondary to hypotension/shock. Creatinine fairly stable at 1.25 today. Urine output improved post IV Lasix. Now nonoliguric. 2. Hyponatremia. Hypervolemic. 3. Shock. Possibly septic possible source gallbladder versus decubitus ulcer. On antibiotics. On vasopressor support. 4. Lower extremity edema. 5. Metabolic acidosis secondary to acute kidney injury maintained on bicarb drip. Improved. 6. Hypokalemia from diuresis and intracellular shifting from bicarb. Plan: Hep-Lock IV fluids. Status post IV albumin given 01/08/2022. Scheduled to receive blood transfusion today. Start IV Lasix 40 mg twice daily. Encourage oral intake. Wean vasopressors. Continue to assess daily for need for renal replacement therapy. Potassium replaced.
[2022-01-09] MEDS: METOCLOPRAMIDE 5 MG/ML 2 ML VIAL IVP SCH ×3 (09:52→18:33)
[2022-01-09] MEDS: INSULIN ASPART (NovoLOG) 100 UNIT/ML VIAL SQ SCH ×4 (09:53→20:40)
[2022-01-09] MEDS: DEXTROSE 5% IN WATER 1,000 ML with SODIUM BICARB (1 MEQ/ML) 150 ML IV SCH (09:53)
--- NOTE | 2022-01-09 09:53 | P.PN ---
Progress Note - Text Progress Note Date: 01/09/22 The patient remains unchanged. His clinical condition is quite poor. If he improves we may place PEG tube at a later date.
[2022-01-09] MEDS: MIDODRINE 5 MG TAB PO SCH ×3 (09:59→16:40)
[2022-01-09] MEDS: MAGNESIUM OXIDE 400 MG TAB PO SCH ×3 (09:59→20:21)
[2022-01-09] MEDS: ASCORBIC ACID 500 MG TAB PO SCH (09:59)
[2022-01-09] MEDS: MULTIVITAMINS, THERA 1 EACH TAB PO SCH (09:59)
[2022-01-09] MEDS: SODIUM BICARBONATE TAB 650 MG TAB PO SCH ×3 (09:59→20:20)
[2022-01-09] MEDS: CHOLECALCIFEROL 25 MCG (1000 IU) TABLET PO SCH (10:00)
[2022-01-09] MEDS: APIXABAN 5 MG TAB PO SCH ×2 (10:00→18:31)
[2022-01-09] MEDS: PANTOPRAZOLE 40 MG/10 ML VIAL IVP SCH ×2 (10:00→20:20)
[2022-01-09] MEDS: TAMSULOSIN 0.4 MG CAP.ER.24H PO SCH (10:00)
[2022-01-09] MEDS: FOLIC ACID 1 MG TAB PO SCH (10:01)
[2022-01-09] MEDS: METOPROLOL TARTRATE 50 MG TAB PO SCH ×2 (11:03→16:41)
[2022-01-09 11:13] LABS: Glucose,Whole Blood 140 mg/dL (70-110)
[2022-01-09] MEDS: FUROSEMIDE 10 MG/ML 4 ML VIAL IV SCH ×2 (12:12→20:20)
--- NOTE | 2022-01-09 13:53 | P.PN ---
Progress Note - Text Progress Note Date: 01/09/22 Hospital course: this is a pleasant 61 yo M with past medical history of COPD, Diabetes Mellitus, Deep Vein Thrombosis, Hyperlipidemia, Hypertension, Sleep Apnea/CPAP/BIPAP He was in the hospital on 09/2021 for severe hypertension from decreased oral intake, acute metabolic encephalopathy, chronic congestive heart failure, diastolic with ejection fraction 55-60%, acute kidney injury, sinus tachycardia, status post cholecystectomy for his gangrenous cholecystitis, restless leg syndrome, BPH, chronic medical debility i talkled to the pt and at bed side , pt is from retirement , he was retirement since June 2021. At that time she was in the hospital for acute hypoxic respiratory failure of unknown causes. He needed intubation at that time. He had complete opacification in the left hemithorax he had 2 bronchoscopy done which was negative for microbial growth. He has another admission on 09/2021. Patient and states that he came here because he wanted to get the PEG tube because he was not eating anything since June and he lost a lot of weight he used to weigh 333 pounds and now 193. He states that his main issue is no appetite, he denies choking but he has sometimes nausea that prevent him from eating. Is also short of breath with cough and clear yellow phlegm but no chest pain, no abdominal pain. He has loose bowel movement once or twice a week. Also he has unstageable pressure decubitus ulcer status post debridement, he has wound VAC in place. Patient also complaining of from chronic left leg pain and tenderness, he would not allow someone to drop his leg because it hurts a lot. Inspection looks normal, no trauma. Also was complaining from weakness in both lower extremities since June Patient is tachycardic around 110, on admission heart rate was 125 afebrile. His lab reviewed including CBC showed mild anemia of 11.9, rest of CBC is unr emarkable. INR is unremarkable at 1.1. Sodium was low at 123. Creatinine normal 0.8. Glucose was low at 66. Chest x-ray: No acute process. 01/02/2022 Last night patient was started on therapeutic dose Lovenox for acute right leg DVT, CT angiography chest and echo could not be done because have no IV access, patient was transferred to a [facility] IV access was obtained in the right upper arm, not good enough for CT of the chest test or aggressive treatment. However IV fluids could be provided. Blood pressure is improved up to 110/68, however patient still tachycardic. Patient could not eat because of severe nausea and vomiting, H time he put something in his monthly follow-up as per bedside nurse, KUB showing some evidence of ileus, surgical team consult obtained. Social evaluation under direct consults are pending. 01/03/2022 Patient awake alert, looks more comfortable than the first taken to the hospital, less tachypneic, he denies any chest pain or abdominal pain. He tried to take small bites of mashed potato yesterday and he could not consume it and he immediately felt to throw up. CT of the chest is negative for PE, he remains on Lovenox for acute right DVT. CT of the abdomen is suspicious for a complex collection possible abscess although it's the size 5 cm diameter 2.7 cm, recommended ultrasound versus MRI, were going to order a liver ultrasound although it is of less sensitivity especially with this patient large body habitus however it is less invasive than MRI. Also flowcalcitonin is the slightly elevated. He is slightly tachycardic although is better than before. Blood pressure 93/63. Today sodium dropped 127 down to 122 because of this we held his IV fluids and reordered anemia workup in the urine and the serum, we will monitor his sodium level tomorrow if no improvement and may consider further workup. Surgical team consult is called, the plan for PEG tube placement on . Patient originally came to the hospital the PEG tube placement. Patient is not consuming his oral medication but we stopped his gabapentin and ropinirole. 01/04/2022 Kirsten Bach feels better today, he does not feel dizziness while he is lying in bed all the time. He still have low appetite but no chest pain or dyspnea, no abdominal pain. He still complaining from pain in his legs and he has right leg DVT been on Lovenox with plan to switch him to heparin drip on today as he got midline Blood pressure is 87/56, heart rate 120, sodium is 121 On admission his sodium was still low and was started on D5 normal saline at 100 mL/h however after initial improvement sodium dropped to 121 yesterday so we held his IV fluid and the evening sodium improved 124 (no iv lasix given), however this morning is 121 again. We send urine studies and I'll consult teacher dancing. Also patient has negative CTPA for pulmonary embolism but CT of the abdomen and pelvis showing possible gallbladder fossa abscess or complex fluid collection although it is improved from previous 5 cm down to 2.7 centimeters. The recommended liver ultrasound versus MRI, ultrasound shows the same findings. Also surgery due on the case 01/05/2022 Last night his blood pressure dropped with systolic and 50s, there was a rapid response a team response and he was as stated with IV fluids aggressively, his blood pressure improved in 90s this morning and during the round he was awake and alert looks tired but is appropriate. Sodium was 121 and then 119. He denied any chest pain or abdominal pain, no other complaints clinically. His losing from his puncture wound in the right lower abdomen was a stopped, he was started on heparin drip per recommendation of senior storage engineer. After once by the evening time his blood pressure dropped again was 53/32 with altered mental status, there was another rapid response where patient was transferred to the ICU and levophed was started and his mentation started to improve again. Patient was started also on antibiotic empirically with Zosyn and IV vancomycin total infection ruled out completely as there is still high suspicion, with possible sources including the pressure wound sacral ulcer in the lower back, and less likely the gallbladder bed and fossa with 2.7 cm fluid collection (felt less likely because actually it decreased in size from 5.0 cm previously) After transfer patient and at bedside opted for the DO NOT RESUSCITATE order as per bedside nurse. 01/06/2022 Yesterday patient was still deteriorating, however today patient turned around and start improving patient remains in the ICU he needs to pressors we will fit and vasopressin, lactic acid trending up 6.4. Patient mentation is also deteriorated and become more confused and less responsive. His creatinine remains around 1 although he has low urine output. Patient is resuscitated with many fluids and also his broad-spectrum antibiotics with IV vancomycin and Zosyn, as septic shock is highly suspected is the cause of the patient profound hypotension and shock state. Although other factors might be contributing to it. Because of this we started the patient on hydrocortisone to increase the sensitivity of the adrenergic receptors to the catecholamine. Also replacing electrolytes including calcium and magnesium. Sodium slightly trending up. Patient remains in critical condition. Family at bedside 01/07/2022 Patient today workup and he was awake alert and oriented 3, he follows commands, he feels hungry and actually he started tolerating diet for the first time after several months. He denies any respiratory symptoms, his abdomen looks benign, no other new complaints. Blood pressure is improving and he required less pressors, currently blood pressure is 87/61, is less tachycardic around 110. He is currently on levophed 0.03 which is decreased from yesterday. Last night we added hydrocortisone 100 mg 3 times a day as a replacement therapy but to support blood pressure and increased sensitivity of levophed to its adrenergic receptors. Since blood pressure improvement with lower dose to 50 mg today, possibly we will discontinue it in one or 2 days once blood pressure keep improvement. Also patient receiving fluids. Labs looks stable, hemoglobin 9.8, sodium 126 he remains on Zosyn, vancomycin was discontinued. He remains on Zosyn. Anticoagulation is switched to Eliquis therapeutic dose at 10 mg which could be switched to 5 mg on 01/17. Prognosis remains guarded 01/08/2022 Patient is awake but drowsy, His blood pressure is improving but he still on pressors although is requiring less amount He has poor urine output but creatinine is around 1.1. His GFR is 66. He is going to receive 1 dose of Lasix 80 mg today. Also significant sodium bicarb and albumin infusion. He remains on Zosyn Anticoagulation with Eliquis January 09 2022: I assumed care of patient today. ICU: Tired. Lethargic. Patient drips include vasopressin and norepinephrine. the bedside. Getting 2 units of PRBC. Received IV albumin yesterday. Also received some IV diuretics. 2 L nasal cannula. Hemoglobin 5.5 today. On IV Zosyn. Wound VAC. On clear liquids. Active Medications Hydrocodone Bitart/Acetaminophen (Hydrocodone/Apap 5-325mg 1 Each Tab) 1 each PO Q6HR PRN PRN Reason: Pain Last Admin: 01/08/22 13:23 Dose: 1 each Albuterol Sulfate (Albuterol Nebulized 2.5 Mg/3 Ml) 2.5 mg INHALATION Q2H PRN PRN Reason: AIRWAY PATENCY Last Admin: 12/31/21 21:36 Dose: 2.5 mg Albuterol/Ipratropium (Ipratropium-Albuterol 3 Ml Neb) 3 ml INHALATION RT-QID [facility] Last Admin: 01/09/22 11:20 Dose: 3 ml Apixaban (Apixaban 5 Mg Tab) 10 mg PO BID [facility]; Protocol Stop: 01/14/22 21:01 Last Admin: 01/09/22 10:00 Dose: 10 mg Ascorbic Acid (Ascorbic Acid 500 Mg Tab) 1,000 mg PO DAILY@0800 [facility] Last Admin: 01/09/22 09:59 Dose: 1,000 mg Cholecalciferol (Cholecalciferol 25 Mcg (1000 Iu) Tablet) 25 mcg PO DAILY [facility] Last Admin: 01/09/22 10:00 Dose: 25 mcg Dronabinol (Dronabinol 2.5 Mg Cap) 5 mg PO BID@1200,1700 [facility] Last Admin: 01/09/22 12:34 Dose: 5 mg Folic Acid (Folic Acid 1 Mg Tab) 1 mg PO DAILY [facility] Last Admin: 01/09/22 10:01 Dose: 1 mg Furosemide (Furosemide 10 Mg/Ml 4 Ml Vial) 40 mg IV Q12HR [facility] Last Admin: 01/09/22 12:12 Dose: 40 mg Hydromorphone HCl (Hydromorphone 0.5 Mg/0.5 Ml Syringe) 0.5 mg IVP Q4HR PRN PRN Reason: Pain Last Admin: 01/07/22 21:50 Dose: 0.5 mg Norepinephrine Bitartrate 32 (mg/ Sodium Chloride) 250 mls @ 20.518 mls/hr IV .[id number] [facility]; Protocol Last Titration: 01/09/22 08:11 Dose: 0.06 mcg/kg/min, 2.462 mls/hr Vasopressin 60 unit/ Sodium (Chloride) 153 mls @ 4.59 mls/hr IV .Q24H [facility]; Protocol Last Admin: 01/08/22 10:01 Dose: 0.03 units/min, 4.59 mls/hr Lactated Ringer's (Lactated Ringers) 1,000 mls @ 20 mls/hr IV .Q24H [facility] Last Admin: 01/09/22 01:50 Dose: Not Given Piperacillin Sod/Tazobactam (Sod 3.375 gm/ Sodium Chloride) 100 mls @ 25 mls/hr IVPB Q8H [facility]; Protocol Last Admin: 01/09/22 12:12 Dose: 25 mls/hr Insulin Aspart (Insulin Aspart (Novolog) 100 Unit/Ml Vial) 0 unit SQ ACHS [facility]; Protocol Last Admin: 01/09/22 12:12 Dose: 1 unit Lidocaine HCl (Lidocaine 1% (10mg/Ml) For Iv Start) 0.1 ml INTRADERMA PER PROTOCOL PRN PRN Reason: IV Start Magnesium Oxide (Magnesium Oxide 400 Mg Tab) 400 mg PO TID [facility] Last Admin: 01/09/22 09:59 Dose: 400 mg Metoclopramide HCl (Metoclopramide 5 Mg/Ml 2 Ml Vial) 10 mg IVP Q6HR [facility] Last Admin: 01/09/22 12:11 Dose: 10 mg Metoprolol Tartrate (Metoprolol Tartrate 50 Mg Tab) 50 mg PO BID@0800,1600 [facility] Last Admin: 01/09/22 11:03 Dose: Not Given Midodrine (Midodrine 5 Mg Tab) 10 mg PO AC-TID [facility] Last Admin: 01/09/22 12:11 Dose: 10 mg Miscellaneous Information (Magnesium Replacement Protocol 1 Each Misc) 1 each MISCELLANE DAILY PRN; Protocol PRN Reason: Per Protocol Miscellaneous Information (Potassium Replacement Protocol 1 Each Misc) 1 each MISCELLANE DAILY PRN; Protocol PRN Reason: Per Protocol Multivitamins (Multivitamins, Thera 1 Each Tab) 1 each PO DAILY [facility] Last Admin: 01/09/22 09:59 Dose: 1 each Naloxone HCl (Naloxone 0.4 Mg/Ml 1 Ml Vial) 0.2 mg IV Q2M PRN PRN Reason: Opioid Reversal Ondansetron HCl (Ondansetron 4 Mg/2 Ml Vial) 4 mg IVP Q6HR PRN PRN Reason: Nausea And Vomiting Last Admin: 01/02/22 18:15 Dose: 4 mg Pantoprazole Sodium (Pantoprazole 40 Mg/10 Ml Vial) 40 mg IVP BID [facility] Last Admin: 01/09/22 10:00 Dose: 40 mg Sodium Bicarbonate (Sodium Bicarbonate Tab 650 Mg Tab) 650 mg PO TID [facility] Last Admin: 01/09/22 09:59 Dose: 650 mg Tamsulosin HCl (Tamsulosin 0.4 Mg Cap.Er.24h) 0.4 mg PO DAILY [facility] Last Admin: 01/09/22 10:00 Dose: 0.4 mg On examination: VITAL SIGNS: 97.5, 90, 16, 109/59, 99% on 2 L GENERAL APPEARANCE: Tired lethargic but arousable HEENT: Normal external appearance of nose and ear. Oral cavity normal EYES: Pupils equal. Conjunctiva normal. NECK: JVD unable to assess. Mass not palpable. RESPIRATORY: Respiratory effort increased. Decreased breath sounds to auscultation. CARDIOVASCULAR: First and second sounds normal. Some edema. ABDOMEN: Soft. Liver and spleen not palpable. No tenderness. No mass palpable. PSYCHIATRY: Alert and oriented x3. Mood and affect normal. Muscular skeletal: Stage IV pressure ulcer left buttock. INVESTIGATIONS, reviewed in the clinical context: January 09: White count 5.6 hemoglobin 5.5 platelets 179 sodium 128 potassium 3.2 creatinine 1.25 albumin 2.2 LIVER: ULTRASOUND:. PRIOR CHOLECYSTECTOMY. COMPLEX AREA SEEN IN THE GALLBLADDER FOSSA. CONTAINING A FEW BUBBLES. CT abdomen: Persistent heterogenous hyperdense area in the hepatic parenchyma adjacent to the gallbladder fossa. Limited 2-D echocardiogram: Home LV function. Ultrasound venous Doppler: Positive DVT right lower extremity. Assessment and plan: Severe hypotension and shock state requiring pressors, possible septic shock : Slow to respond -Acute metabolic encephalopathy, multifactorial: Slow to respond Complex liver collection adjacent to gallbladder fossa 2.7 cm suspicious for abscess versus other: Slow to respond Hyponatremia Persistent nausea and vomiting secondary to ileus, Acute right leg DVT Severe appetite loss associated with Loss of weight and nausea Dehydration and hypovolemia, improving Unstageable chronic decubitus ulcer status post wound VAC placement Anemia of chronic diseases mellitus, With hyperglycemia on admission Hypertension Hyperlipidemia COPD Chronic congestive heart failure with ejection fraction 55-60% Sinus tachycardia Status post cholecystectomy Restless leg syndrome BPH Chronic medical debility DO NOT RESUSCITATE Patient getting IV vasopressin, norepinephrine. 2 units of blood ordered. Sinus rhythm. IV Zosyn: Eliquis. Discussed with at the bedside.
[2022-01-09 16:28] LABS: Glucose,Whole Blood 164 mg/dL (70-110)
[2022-01-09] MEDS: SODIUM CHLORIDE 0.9% 150 ML with VASOPRESSIN 60 UNIT IV SCH ×2 (16:43)
--- NOTE | 2022-01-09 18:40 | P.PN ---
Subjective Progress Note Date: 01/09/22 Principal diagnosis: Failure to thrive RLE femoral vein DVT Bleeding at lovenox injection site Septic shock Acute drop in Hemoglobin Pt transferred to ICU couple days ago for septic shock and now Hgb decreased from 8.9 on 01/08/22 to 5.5 today. No obvious bleed seen clinically. Slowly improving compared to yesterday. Objective - Vital Signs Vital signs: Vital Signs Temp 97.5 F L 01/09/22 16:00 Pulse 86 01/09/22 16:00 Resp 14 01/09/22 16:00 BP 113/58 01/09/22 14:41 Pulse Ox 100 01/09/22 16:00 FiO2 28 01/02/22 16:04 Intake & Output 01/08/22 01/09/22 01/09/22 18:59 06:59 18:59 Intake Total 2235.682 404.752 9445.221 Output Total 270 660 725 Balance 1965.682 -292.677 293.221 Weight 117.5 kg Intake: IV 1122 328 234 0.45 w/ bicarb 200 0.9 NACL 180 Albumin Human 25% 50 ml 200 50 In Empty Bag 1 bag @ 50 mls/hr IVPB Q1H ERINN Rx#: [id number] Calcium Gluconate in NaCl 100 2 gm In Saline 1 100ml. bag @ 100 mls/hr IVPB ONCE ONE Rx#:[id number] Dextrose 5% in Water 1, 350 000 ml @ 50 mls/hr IV . Q23H ERINN with Sodium Bicarb (1 Meq/ml) 150 ml Rx#:[id number] pressure bags 72 78 54 zosyn 200 200 Intake, IV Titration 291.682 39.323 164.221 Amount Norepinephrine 32 mg In 138.682 39.323 23.308 Sodium Chloride 0.9% 218 ml @ 0.5 MCG/KG/MIN 20. 518 mls/hr IV .[id number] ERINN Rx#:[id number] Sodium Chloride 0.9% 150 153 140.913 ml @ 0.03 UNITS/MIN 4.59 mls/hr IV .Q24H ERINN with Vasopressin 60 unit Rx#: [id number] Oral 822 Blood Product 620 Rc As-1 Unit 310 [id number] Rc As-1 Unit 0 [id number] Output: Urine 270 660 725 Other: Voiding Method Indwelling Catheter Indwelling Catheter Indwelling Catheter # Bowel Movements 1 ABP, PAP, CO, CI - Last Documented Arterial Blood Pressure 113/60 - Exam Gen.: NAD. HEENT: Mucosa moist. Lungs: No respiratory distress. Abdomen: Soft, nontender. MSK: Generalized weakness Neuro: Sleepy during my exam today. Arousable. Skin: No jaundice. - Labs CBC & Chem 7: 01/09/22 05:30 01/09/22 04:00 Labs: Abnormal Lab Results - Last 24 Hours (Table) 01/08/22 01/08/22 01/09/22 Range/Units 17:41 20:09 04:00 RBC (4.30-5.90) m/uL Hgb (13.0-17.5) gm/dL Hct (39.0-53.0) % RDW (11.5-15.5) % Sodium 128 L (137-145) mmol/L Potassium 3.2 L (3.5-5.1) mmol/L Glucose 115 H (74-99) mg/dL POC Glucose (mg/dL) 278 H 301 H (70-110) mg/dL Calcium 7.2 L (8.4-10.2) mg/dL Alkaline Phosphatase 127 H (38-126) U/L Total Protein 3.9 L (6.3-8.2) g/dL Albumin 2.2 L (3.5-5.0) g/dL Crossmatch 01/09/22 01/09/22 01/09/22 Range/Units 04:35 05:30 05:30 RBC 2.06 L 2.07 L (4.30-5.90) m/uL Hgb 5.5 L* D 5.5 L* (13.0-17.5) gm/dL Hct 17.1 L* 17.3 L* (39.0-53.0) % RDW 19.0 H 19.3 H (11.5-15.5) % Sodium (137-145) mmol/L Potassium (3.5-5.1) mmol/L Glucose (74-99) mg/dL POC Glucose (mg/dL) (70-110) mg/dL Calcium (8.4-10.2) mg/dL Alkaline Phosphatase (38-126) U/L Total Protein (6.3-8.2) g/dL Albumin (3.5-5.0) g/dL Crossmatch See Detail 01/09/22 01/09/22 Range/Units 11:12 16:26 RBC (4.30-5.90) m/uL Hgb (13.0-17.5) gm/dL Hct (39.0-53.0) % RDW (11.5-15.5) % Sodium (137-145) mmol/L Potassium (3.5-5.1) mmol/L Glucose (74-99) mg/dL POC Glucose (mg/dL) 140 H 164 H (70-110) mg/dL Calcium (8.4-10.2) mg/dL Alkaline Phosphatase (38-126) U/L Total Protein (6.3-8.2) g/dL Albumin (3.5-5.0) g/dL Crossmatch Microbiology - Last 24 Hours (Table) 01/06/22 02:25 Blood Culture - Preliminary Blood No Growth after 72 hours 01/05/22 18:30 Blood Culture - Preliminary Blood No Growth after 72 hours Assessment and Plan Assessment: 1- Failure to thrive 2- RLE femoral vein DVT 3- Bleeding at lovenox injection site 4- Septic shock 5- Acute drop in Hemoglobin Plan: Mr. Marquez is a 61 yo male with hypoxic respiratory failure in 06/2021 and overall worsening condition since then, with poor PS and bedbound, here for FTT. Course complicated by RLE pain, doppler positive for RLE femoral vein DVT. He was anticoagulated with lovenox for his provoked DVT due to immobility and recurrent hospitalizations, however had bleeding at lovenox injection site after his dose around 01/04-. Hgb remained stable and no further bleeding noted and AC resumed. Switched to eliquis 10mg bid on 01/07/22. Subsequently course complicated by septic shock, requiring ICU transfer. Hgb initially stable ar ound 9's, however today decreased to 5.5. No signs of bleeding and he did receive significant amount of fluid over the past 48 hours. Agree with transfusing to maintain Hgb >7. Please monitor hemoglobin very closely. Please hold Eliquis tonight to ensure that he responds appropriately to the transfused blood and his hemoglobin remained stable overnight. If his hemoglobin continues to decrease or does not respond appropriately to that she is of blood that he is receiving today, would continue to hold anticoagulation consider IVC filter placement. May need FOBT and noncontrast CT AP if Hgb continues to decrease with no obvious bleeding seen clinically. Discussed with nursing staff. Discussed with patient's family at bedside and they're agreeable to the plan. All questions were answered.
[2022-01-09 20:23] LABS: Anisocytosis Slight; HCT 24.7 % (39.0-53.0); Hypochromasia Slight; MCHC 33.3 g/dL (31.0-37.0); MCV 87.1 fL (80.0-100.0); Mean Platelet Volume 7.9; Platelet Count 140 k/uL (150-450); RBC 2.83 m/uL (4.30-5.90); RDW 17.8 % (11.5-15.5); WBC 5.1 k/uL (3.8-10.6)
[2022-01-09 20:26] LABS: HGB 8.2 gm/dL (13.0-17.5)
[2022-01-09 20:36] LABS: Glucose,Whole Blood 211 mg/dL (70-110)
--- NOTE | 2022-01-10 01:07 | P.PN ---
Subjective Progress Note Date: 01/08/22 Principal diagnosis: Possible abscess Patient is a 61-year-old male with multiple comorbidities including COPD diabetes hypertension in this patient who did have open cholecystectomy for gangrenous cholecystitis on 09/17/2021, subsequently admitted to the hospital for not eating and drinking and placement of a PEG tube patient also have a CT abdominal pelvis as well as ultrasound suspicious for fluid collection in the gallbladder fossa concerning for seroma versus abscess. On today's evaluation that is 01/08/2022, the patient continues to be afebrile, the patient is hypotensive however is requiring less pressor support per the nursing staff, the patient is breathing comfortably on nasal cannula oxygen, the patient denies any chest pain shortness of breath or cough, the patient denies abdominal pain no diarrhea Objective - Vital Signs Vital signs: Vital Signs Temp 97.6 F 01/08/22 08:00 Pulse 106 H 01/08/22 11:28 Resp 13 01/08/22 10:00 BP 97/62 01/08/22 00:00 Pulse Ox 100 01/08/22 10:00 FiO2 28 01/02/22 16:04 Intake & Output 01/07/22 01/08/22 01/08/22 18:59 06:59 18:59 Intake Total 4712.326 8224.283 1478.369 Output Total 125 104 90 Balance 1483.780 1127.283 1388.369 Weight 113.5 kg 118.7 kg Intake: IV 1137 1112 786 0.45 w/ bicarb 700 600 200 0.9 NACL 240 240 Albumin Human 25% 50 ml 150 In Empty Bag 1 bag @ 50 mls/hr IVPB Q1H ERINN Rx#: [id number] Calcium Gluconate in NaCl 100 100 2 gm In Saline 1 100ml. bag @ 100 mls/hr IVPB ONCE ONE Rx#:[id number] Dextrose 5% in Water 1, 100 000 ml @ 50 mls/hr IV . Q23H ERINN with Sodium Bicarb (1 Meq/ml) 150 ml Rx#:[id number] pressure bags 72 72 36 vancomycin 125 zosyn 100 200 Intake, IV Titration 177.433 98.283 270.369 Amount Magnesium Sulfate-D5w Pmx 100 1 gm In Dextrose/Water 1 100ml.bag @ 100 mls/hr IVPB Q1H ERINN Rx#: [id number] Norepinephrine 32 mg In 77.433 98.283 117.369 Sodium Chloride 0.9% 218 ml @ 0.5 MCG/KG/MIN 20. 518 mls/hr IV .[id number] ERINN Rx#:[id number] Sodium Chloride 0.9% 150 153 ml @ 0.03 UNITS/MIN 4.59 mls/hr IV .Q24H ERINN with Vasopressin 60 unit Rx#: [id number] Oral 422 Output: Urine 125 104 90 Other: Voiding Method Indwelling Catheter Indwelling Catheter ABP, PAP, CO, CI - Last Documented Arterial Blood Pressure 121/63 - Exam GENERAL DESCRIPTION: Middle-aged male lying in bed in no distress RESPIRATORY SYSTEM: Unlabored breathing , decreased breath sounds at bases HEART: S1 S2 regular rate and rhythm , ABDOMEN: Soft , no tenderness EXTREMITIES: One plus edema feet - Labs CBC & Chem 7: 01/09/22 19:35 01/09/22 19:35 Labs: Abnormal Lab Results - Last 24 Hours (Table) 01/07/22 01/07/22 01/07/22 Range/Units 16:22 18:10 22:16 RBC (4.30-5.90) m/uL Hgb (13.0-17.5) gm/dL Hct (39.0-53.0) % RDW (11.5-15.5) % Neutrophils # (1.3-7.7) k/uL Sodium 126 L (137-145) mmol/L Carbon Dioxide 19 L (22-30) mmol/L Glucose 160 H (74-99) mg/dL POC Glucose (mg/dL) 231 H 175 H (70-110) mg/dL Calcium 6.5 L (8.4-10.2) mg/dL Ionized Calcium Sukhjinder (4.5-5.3) mg/dL AST (17-59) U/L Alkaline Phosphatase (38-126) U/L Total Protein (6.3-8.2) g/dL Albumin (3.5-5.0) g/dL 01/08/22 01/08/22 01/08/22 Range/Units 05:50 05:52 06:00 RBC 3.33 L (4.30-5.90) m/uL Hgb 8.9 L (13.0-17.5) gm/dL Hct 27.9 L (39.0-53.0) % RDW 18.9 H (11.5-15.5) % Neutrophils # 8.0 H (1.3-7.7) k/uL Sodium 127 L (137-145) mmol/L Carbon Dioxide (22-30) mmol/L Glucose 127 H (74-99) mg/dL POC Glucose (mg/dL) 140 H (70-110) mg/dL Calcium 6.7 L (8.4-10.2) mg/dL Ionized Calcium Sukhjinder 4.2 L (4.5-5.3) mg/dL AST 61 H (17-59) U/L Alkaline Phosphatase 230 H (38-126) U/L Total Protein 3.7 L (6.3-8.2) g/dL Albumin 1.6 L (3.5-5.0) g/dL 01/08/22 01/08/22 Range/Units 07:20 13:26 RBC (4.30-5.90) m/uL Hgb (13.0-17.5) gm/dL Hct (39.0-53.0) % RDW (11.5-15.5) % Neutrophils # (1.3-7.7) k/uL Sodium (137-145) mmol/L Carbon Dioxide (22-30) mmol/L Glucose (74-99) mg/dL POC Glucose (mg/dL) 150 H 290 H (70-110) mg/dL Calcium (8.4-10.2) mg/dL Ionized Calcium Sukhjinder (4.5-5.3) mg/dL AST (17-59) U/L Alkaline Phosphatase (38-126) U/L Total Protein (6.3-8.2) g/dL Albumin (3.5-5.0) g/dL Microbiology - Last 24 Hours (Table) 01/06/22 02:25 Blood Culture - Preliminary Blood No Growth after 48 hours 01/05/22 18:30 Blood Culture - Preliminary Blood No Growth after 48 hours Assessment and Plan (1) Abnormal abdominal CT scan Current Visit: Yes Status: Acute Code(s): R93.5 - ABN FINDINGS ON DX IMAGING OF ABD REGIONS, INC RETROPERITON SNOMED Code(s): 26501281255370747 Plan: 1patient with abnormal CT as well as ultrasound of the liver gallbladder area concerning for possible fluid collection in the gallbladder. In this patient who did have a history of gangrenous cholecystitis s/p cholecystectomy on 09/17/2021 with concern for possible postop seroma versus abscess, patient was clinically not behaving as an abscess with no fever or elevated white count. 2detailed discussion with IR on 01/04/2022 and with high risk for any percutaneous intervention hence the right upper quadrant fluid was not drained 3 patient subsequently did have significant hypotension and has been transferred to ICU culture has been obtained which are negative so for 4-patient to continue with the Zosyn and monitor clinical course closely Time with Patient: Less than 30
--- NOTE | 2022-01-10 01:09 | P.PN ---
Subjective Progress Note Date: 01/09/22 Principal diagnosis: Possible abscess Patient is a 61-year-old male with multiple comorbidities including COPD diabetes hypertension in this patient who did have open cholecystectomy for gangrenous cholecystitis on 09/17/2021, subsequently admitted to the hospital for not eating and drinking and placement of a PEG tube patient also have a CT abdominal pelvis as well as ultrasound suspicious for fluid collection in the gallbladder fossa concerning for seroma versus abscess. On today's evaluation that is 01/09/2022, the patient denies any fever or chills, the patient is requiring less pressor support per the nursing staff, the patient is breathing comfortably on nasal cannula oxygen, the patient denies any chest pain shortness of breath or cough, the patient denies abdominal pain and no diarrhea has been reported by the nursing staff Objective - Vital Signs Vital signs: Vital Signs Temp 97.5 F L 01/09/22 20:00 Pulse 86 01/09/22 22:00 Resp 14 01/09/22 22:00 BP 111/56 01/09/22 17:32 Pulse Ox 95 01/09/22 22:00 FiO2 28 01/02/22 16:04 Intake & Output 01/09/22 01/09/22 01/10/22 06:59 18:59 06:59 Intake Total 630.386 0171.221 655.01 Output Total 660 925 425 Balance -292.677 145.221 230.01 Weight 117.5 kg Intake: IV 328 286 119 0.9 NACL 220 95 Albumin Human 25% 50 ml 50 In Empty Bag 1 bag @ 50 mls/hr IVPB Q1H ERINN Rx#: [id number] pressure bags 78 66 24 zosyn 200 Intake, IV Titration 39.323 164.221 26.01 Amount Norepinephrine 32 mg In 39.323 23.308 Sodium Chloride 0.9% 218 ml @ 0.5 MCG/KG/MIN 20. 518 mls/hr IV .[id number] ERINN Rx#:[id number] Sodium Chloride 0.9% 150 140.913 26.01 ml @ 0.03 UNITS/MIN 4.59 mls/hr IV .Q24H ERINN with Vasopressin 60 unit Rx#: [id number] Oral 200 Blood Product 620 310 Rc As-1 Unit 310 [id number] Rc As-1 Unit 0 310 [id number] Output: Urine 660 925 425 Other: Voiding Method Indwelling Catheter Indwelling Catheter Indwelling Catheter # Bowel Movements 1 ABP, PAP, CO, CI - Last Documented Arterial Blood Pressure 96/49 - Exam GENERAL DESCRIPTION: Middle-aged male lying in bed in no distress RESPIRATORY SYSTEM: Unlabored breathing , decreased breath sounds at bases HEART: S1 S2 regular rate and rhythm , ABDOMEN: Soft , no tenderness EXTREMITIES: One plus edema feet - Labs CBC & Chem 7: 01/09/22 19:35 01/09/22 19:35 Labs: Abnormal Lab Results - Last 24 Hours (Table) 01/09/22 01/09/22 01/09/22 Range/Units 04:00 04:35 05:30 RBC 2.06 L 2.07 L (4.30-5.90) m/uL Hgb 5.5 L* D 5.5 L* (13.0-17.5) gm/dL Hct 17.1 L* 17.3 L* (39.0-53.0) % RDW 19.0 H 19.3 H (11.5-15.5) % Plt Count (150-450) k/uL Sodium 128 L (137-145) mmol/L Potassium 3.2 L (3.5-5.1) mmol/L Glucose 115 H (74-99) mg/dL POC Glucose (mg/dL) (70-110) mg/dL Calcium 7.2 L (8.4-10.2) mg/dL Alkaline Phosphatase 127 H (38-126) U/L Total Protein 3.9 L (6.3-8.2) g/dL Albumin 2.2 L (3.5-5.0) g/dL Crossmatch 01/09/22 01/09/22 01/09/22 Range/Units 05:30 11:12 16:26 RBC (4.30-5.90) m/uL Hgb (13.0-17.5) gm/dL Hct (39.0-53.0) % RDW (11.5-15.5) % Plt Count (150-450) k/uL Sodium (137-145) mmol/L Potassium (3.5-5.1) mmol/L Glucose (74-99) mg/dL POC Glucose (mg/dL) 140 H 164 H (70-110) mg/dL Calcium (8.4-10.2) mg/dL Alkaline Phosphatase (38-126) U/L Total Protein (6.3-8.2) g/dL Albumin (3.5-5.0) g/dL Crossmatch See Detail 01/09/22 01/09/22 01/09/22 Range/Units 19:35 19:35 20:35 RBC 2.83 L (4.30-5.90) m/uL Hgb 8.2 L D (13.0-17.5) gm/dL Hct 24.7 L (39.0-53.0) % RDW 17.8 H (11.5-15.5) % Plt Count 140 L (150-450) k/uL Sodium (137-145) mmol/L Potassium 3.2 L (3.5-5.1) mmol/L Glucose (74-99) mg/dL POC Glucose (mg/dL) 211 H (70-110) mg/dL Calcium (8.4-10.2) mg/dL Alkaline Phosphatase (38-126) U/L Total Protein (6.3-8.2) g/dL Albumin (3.5-5.0) g/dL Crossmatch Microbiology - Last 24 Hours (Table) 01/05/22 18:30 Blood Culture - Preliminary Blood No Growth after 96 hours 01/06/22 02:25 Blood Culture - Preliminary Blood No Growth after 72 hours Assessment and Plan (1) Abnormal abdominal CT scan Current Visit: Yes Status: Acute Code(s): R93.5 - ABN FINDINGS ON DX IMAGING OF ABD REGIONS, INC RETROPERITON SNOMED Code(s): 05131496459111168 Plan: 1patient with abnormal CT as well as ultrasound of the liver gallbladder area concerning for possible fluid collection in the gallbladder. In this patient who did have a history of gangrenous cholecystitis s/p cholecystectomy on 09/17/2021 with concern for possible postop seroma versus abscess, patient was clinically not behaving as an abscess with no fever or elevated white count. 2detailed discussion with IR on 01/04/2022 and with high risk for any percutan eous intervention hence the right upper quadrant fluid was not drained 3 patient subsequently did have significant hypotension and has been transferred to ICU culture has been obtained which are negative so for 4-patient noticed to have significant drop in his hemoglobin with question of possible bleed may benefit from repeat CT, will discuss with primary team, patient to continue with the Zosyn and monitor clinical course closely Time with Patient: Less than 30
[2022-01-10] MEDS: LACTATED RINGERS 1,000 ML IV SCH (03:10)
[2022-01-10] MEDS: METOCLOPRAMIDE 5 MG/ML 2 ML VIAL IVP SCH ×5 (03:11→23:09)
[2022-01-10] MEDS: PIPERACILLIN-TAZOBACTAM 3.375 GM in SODIUM CHLORIDE 0.9% 100 ML IVPB SCH ×3 (03:11→19:33)
[2022-01-10 04:24] LABS: Anisocytosis Slight; Basophils % (A) 0 %; Eosinophils # (A) 0.2 k/uL (0-0.7); Eosinophils % (A) 4 %; HCT 25.7 % (39.0-53.0); HGB 8.4 gm/dL (13.0-17.5); Hypochromasia Slight; Lymphocytes % (A) 20 %; MCH 28.4 pg (25.0-35.0); MCHC 32.8 g/dL (31.0-37.0); MCV 86.6 fL (80.0-100.0); Mean Platelet Volume 7.8; Monocytes # (A) 0.2 k/uL (0-1.0); Monocytes % (A) 4 %; Neutrophils # (A) 3.5 k/uL (1.3-7.7); Neutrophils % (A) 72 %; Platelet Count 137 k/uL (150-450); Poikilocytosis Slight; RBC 2.97 m/uL (4.30-5.90); WBC 4.9 k/uL (3.8-10.6)
[2022-01-10 04:39] LABS: Potassium 3.3 mmol/L (3.5-5.1)
[2022-01-10] MEDS ORDERED: Potassium Replacement Protocol 1 EACH MISC MISCELLANE PRN (04:51)
[2022-01-10] MEDS: POTASSIUM CHLORIDE ER 20 MEQ TAB.ER PO SCH ×2 (05:41→08:19)
[2022-01-10] MEDS: IPRATROPIUM-ALBUTEROL 3 ML NEB INHALATION SCH ×4 (07:51→20:30)
[2022-01-10] MEDS: NOREPINEPHRINE 32 MG in SODIUM CHLORIDE 0.9% 218 ML IV SCH ×2 (08:05→11:02)
[2022-01-10] MEDS: INSULIN ASPART (NovoLOG) 100 UNIT/ML VIAL SQ SCH ×4 (08:06→21:07)
[2022-01-10] MEDS: SODIUM BICARBONATE TAB 650 MG TAB PO SCH ×3 (08:19→20:28)
[2022-01-10] MEDS: MAGNESIUM OXIDE 400 MG TAB PO SCH ×3 (08:19→20:28)
[2022-01-10] MEDS: ASCORBIC ACID 500 MG TAB PO SCH (08:19)
[2022-01-10] MEDS: FOLIC ACID 1 MG TAB PO SCH (08:19)
[2022-01-10] MEDS: CHOLECALCIFEROL 25 MCG (1000 IU) TABLET PO SCH (08:19)
[2022-01-10] MEDS: MIDODRINE 5 MG TAB PO SCH ×3 (08:19→17:25)
[2022-01-10] MEDS: TAMSULOSIN 0.4 MG CAP.ER.24H PO SCH (08:19)
[2022-01-10] MEDS: MULTIVITAMINS, THERA 1 EACH TAB PO SCH (08:19)
[2022-01-10] MEDS: PANTOPRAZOLE 40 MG/10 ML VIAL IVP SCH ×2 (08:20→20:25)
[2022-01-10] MEDS: FUROSEMIDE 10 MG/ML 4 ML VIAL IV SCH ×2 (08:20→20:25)
[2022-01-10] MEDS: METOPROLOL TARTRATE 50 MG TAB PO SCH ×2 (08:23→15:52)
--- NOTE | 2022-01-10 08:48 | P.PN ---
Subjective Patient is seen in follow-up for hyponatremia and acute kidney injury. Currently on vasopressin. On IV Lasix. Nonoliguric. Oral intake poor. Sodium level 127 today. Hemoglobin improved post blood transfusion. No active bleeding per the nurse. Vital signs are stable. On vasopressor support. General: Awake. No acute distress. HEENT: Head exam is unremarkable. On nasal cannula. LUNGS: Breath sounds decreased. HEART: Tachycardic. ABDOMEN: Soft, no distention. EXTREMITITES: 2+ edema. Objective - Vital Signs Vital signs: Vital Signs Temp 96.4 F L 01/10/22 08:00 Pulse 92 01/10/22 08:04 Resp 16 01/10/22 08:00 BP 111/56 01/09/22 17:32 Pulse Ox 99 01/10/22 08:00 FiO2 28 01/02/22 16:04 Intake & Output 01/09/22 01/10/22 01/10/22 18:59 06:59 18:59 Intake Total 1070.221 734.01 Output Total 925 1885 Balance 145.221 -1150.99 Weight 119.6 kg Intake: IV 286 198 0.9 NACL 220 120 pressure bags 66 78 Intake, IV Titration 164.221 26.01 Amount Norepinephrine 32 mg In 23.308 Sodium Chloride 0.9% 218 ml @ 0.5 MCG/KG/MIN 20. 518 mls/hr IV .[id number] ERINN Rx#:[id number] Sodium Chloride 0.9% 150 140.913 26.01 ml @ 0.03 UNITS/MIN 4.59 mls/hr IV .Q24H ERINN with Vasopressin 60 unit Rx#: [id number] Oral 200 Blood Product 620 310 As-1 Unit 310 [id number] Rc As-1 Unit 0 310 [id number] Output: Urine 925 1885 Other: Voiding Method Indwelling Catheter Indwelling Catheter # Bowel Movements 1 ABP, PAP, CO, CI - Last Documented Arterial Blood Pressure 129/66 - Labs CBC & Chem 7: 01/10/22 04:00 01/10/22 04:00 Labs: Abnormal Lab Results - Last 24 Hours (Table) 01/09/22 01/09/22 01/09/22 Range/Units 05:30 11:12 16:26 RBC (4.30-5.90) m/uL Hgb (13.0-17.5) gm/dL Hct (39.0-53.0) % RDW (11.5-15.5) % Plt Count (150-450) k/uL Sodium (137-145) mmol/L Potassium (3.5-5.1) mmol/L Glucose (74-99) mg/dL POC Glucose (mg/dL) 140 H 164 H (70-110) mg/dL Calcium (8.4-10.2) mg/dL Crossmatch See Detail 01/09/22 01/09/22 01/09/22 Range/Units 19:35 19:35 20:35 RBC 2.83 L (4.30-5.90) m/uL Hgb 8.2 L D (13.0-17.5) gm/dL Hct 24.7 L (39.0-53.0) % RDW 17.8 H (11.5-15.5) % Plt Count 140 L (150-450) k/uL Sodium (137-145) mmol/L Potassium 3.2 L (3.5-5.1) mmol/L Glucose (74-99) mg/dL POC Glucose (mg/dL) 211 H (70-110) mg/dL Calcium (8.4-10.2) mg/dL Crossmatch 01/10/22 01/10/22 Range/Units 04:00 04:00 RBC 2.97 L (4.30-5.90) m/uL Hgb 8.4 L (13.0-17.5) gm/dL Hct 25.7 L (39.0-53.0) % RDW 18.0 H (11.5-15.5) % Plt Count 137 L (150-450) k/uL Sodium 127 L (137-145) mmol/L Potassium 3.3 L (3.5-5.1) mmol/L Glucose 108 H (74-99) mg/dL POC Glucose (mg/dL) (70-110) mg/dL Calcium 7.0 L (8.4-10.2) mg/dL Crossmatch Microbiology - Last 24 Hours (Table) 01/06/22 02:25 Blood Culture - Preliminary Blood No Growth after 96 hours 01/05/22 18:30 Blood Culture - Preliminary Blood No Growth after 96 hours Assessment and Plan Plan: Assessment: 1. Acute kidney injury secondary to ATN secondary to hypotension/shock. Creatinine fairly stable at 1.2 today. Nonoliguric. 2. Hyponatremia. Hypervolemic. 3. Shock. Possibly septic possible source gallbladder versus decubitus ulcer. On antibiotics. On vasopressor support. 4. Lower extremity edema. 5. Metabolic acidosis secondary to acute kidney injury status post bicarb drip. Improved. On oral bicarbonate. 6. Hypokalemia from diuresis. 7. Acute blood loss anemia status post blood transfusion 01/09/2022. Stool for occult blood negative. C. diff negative. Plan: Status post IV albumin given 01/08/2022. Maintain IV Lasix 40 mg twice daily. Encouraged oral intake. Wean vasopressors. Continue to assess daily for need for renal replacement therapy. No urgency at this time. Potassium being replaced. Samsca 15 mg once today.
[2022-01-10] MEDS ORDERED: TOLVAPTAN 15 MG 1/2 TABLET PO ONE (09:00)
--- NOTE | 2022-01-10 09:59 | P.PN ---
Progress Note - Text Progress Note Date: 01/10/22 The patient is tolerating his diet. His abdomen soft. We will remain on standby of PEG tube as needed.
[2022-01-10] MEDS: APIXABAN 5 MG TAB PO SCH ×2 (10:22→20:25)
[2022-01-10 11:39] LABS: Glucose,Whole Blood 143 mg/dL (70-110)
[2022-01-10] MEDS: SODIUM CHLORIDE 0.9% 1,000 ML IV SCH (12:37)
--- NOTE | 2022-01-10 12:46 | P.PN ---
Subjective Progress Note Date: 01/10/22 I was asked to evaluate this patient and chance for him to the intensive care unit and the patient has been quite elevated cardiac and hypotensive in addition to significant electrolyte and blood abnormalities. The patient is known to have multiple comorbidities. He has COPD, diabetes mellitus, hypertension , and addition to obstructive sleep apnea and the patient utilizes CPAP machine. The patient had an open cholecystectomy for gangrenous cholecystitis and the surgery was on 09/17/2021. At that time, the patient was quite ill and septic. He developed acute respiratory failure following his surgery and the patient was extubated successfully. During the course of the illness, the patient and acute kidney injury and he was initially on hemodialysis via permacath. The [facility] and the patient was quite lethargic and dehydrated. The patient apparently was initially brought into the hospital for a PEG tube placement as the patient wasn't eating or drinking and he had lost significant amount of weight. He has also developed a pressure ulcer of his left gluteal area and the patient was seen by the wound care team and the patient has a wound VAC applied to that area. There was a concern for development of a abscess in the liver. A CAT scan of the abdomen was done that raised concerns for a fluid collection/abscess in the gallbladder fossa and a similar findings were also seen on the ultrasound of the abdomen. The case was reviewed by interventional radiology. This finding was quite deep in the abdomen and limited for percutaneous access. Based on that, no intervention was done. Over the past 24 hours, the patient has been acting more septic. The patient was hypotensive and the A team was activated. The patient apparently was running a lower blood pressure. The patient also had been refusing to take his medication. He was given fluid boluses. He was started on bicarb infusion at the rate of 75 mL an hour and he was also started on midodrine and salt tablets. He was noted to be hyponatremic. Subsequently, his condition decompensated and this afternoon, the patient was examined the lethargic, unresponsive, labs showed a sodium level of 119, serum bicarb was 16 with a anion gap of 6. BUN was 11 with a creatinine of 0.6. The pro-calcitonin level was 0.3. The patient had a White second of 9.0 with a hemoglobin of 9.6. Coagulation profile was within normal limits. The sodium level is 119 with a serum bicarb of 16 and an anion gap of 6. Noted the patient was hyponatremic during this current admission. The sodium level progressively dropped and the patient did not respo nd to normal saline. Urine sodium was low, less than 20 but urine osmolality was at 454. The patient was seen by nephrology and the normal saline was discontinued. For now, the patient is on a bicarb infusion at the rate of 70 mL an hour. He was started also on IV Zosyn. Note that during this current admission, the patient was found to have a right lower extremity DVT and the pat ient was started on Lovenox and this was switched to IV heparin. The patient did not have any pulmonary embolism based on the CT angiogram. Echocardiac Michael showed a preserved LV function. His serum cortisone level was elevated. After the patient being chest to the intensive care unit, he was given a total of 2 L of bolus. He became more alert and responsive. He had to be started on pressors and currently norepinephrine infusion is running at 0.4 mcg/kg per minute. The patient was given a triple lumen catheter and arterial line catheter for intensive hemodynamic monitoring. The patient was started on IV Zosyn and the patient will be given vancomycin. Wound VAC is in place. Abdomen is soft. Mental status is gradually improving. He was able to recognize when he was older to follow simple commands. He is receiving the second bolus of normal saline for now. 01/06/2022, the patient is being seen for a follow-up. This patient is developing progressive hypotension and patient is currently in a shock state. Suspect septic shock although no positive cultures are available. the patient got chest to the ICU yesterday because of hyponatremia, hypotension, shock state and the patient was started with broad-spectrum antibiotics and the patient was resuscitated IV fluids. The patient overnight, was Bicarb Infusion with a Total 150 Mg of Sodium Bicarbonate of 150 ML an Hour. The Patient Was Given a Total of 2 L Normal Saline Bolus Immediately. The Patient Was Started on a Combination of Zosyn and vancomycin. The patient was also started on pressors. Norepinephrine infusion currently running at 0.4 mg/kg per minute and the patient is also on a vasopressin physiologic dose. The patient is also found to have a lactic acid level of 2.1. Pro-calcitonin level is at 0.33, mildly elevated and the troponin was at 0.03. The patient is a preserved LV function based on previous echocardiogram. At the same time, the patient remains on 2 L of oxygen by nasal cannula. Post line chest x-ray showed no evidence of any pneumonia or any other pulmonary complications. On today's evaluation, he remains lethargic. Oral intake is minimal. No nausea or emesis. No abdominal pain. He is arousable and follows simple commands. He feels extremely weak. Denies having any other complaints. Meanwhile, the white cell count today is at 8.9 with hemoglobin of 9.1 and the patient has a platelet count of 366. The PTT was supratherapeutic and is currently on hold and those being adjusted by pharmacy. Sodium level is up to 125 with a BUN of 11 and a creatinine of 1.01. LFTs show an AST of 41, ALT of 23, alkaline phosphatase of 179, serum albumin is 1.7. Stool for occult blood and C. diff were both negative. The patient has still a wound VAC in place. Cultures were sent and the results are still negative for now. 01/07/2022, the patient is much more alert and awake and communicating and answering questions appropriately. He woke up this morning much more comfortable and his breathing is nonlabored. He is still a shock state. He is still being resuscitated with IV fluids. He received a total of 2 L yesterday and he was maintained on a bicarb infusion at the rate of 150 mL an hour. On today's evaluation, his hemodynamics have improved. His blood pressure is adequate while being off pressors and the patient is currently on norepinephrine at a dose of 0.35 Kevin respiratory micrograms per minute and vasopressin is admitted physiologic dose of 0.03 units an hour. Urine output is in order of 15-20 mL an hour. Meanwhile, the patient is in sinus rhythm. No angina. No palpitation. No shortness of breath. He remains on 2 L of oxygen by nasal cannula with a pulse ox of 99%. Cultures of been all negative. His white cell count is at 10.2 with a hemoglobin of 0.8 and a platelet count of 366. He remains on IV heparin with a therapeutic PT this morning. INR is at 1.7 with a PT of 17.1. Sodium level is normalized is up to 1:30 and a serum bicarb is up to 16 with an anion gap of 10. His lactic acid level has been fluctuating and dropped down to 3.8 after being as high as 4.4. His magnesium is being replaced at the level of 1.9. LFTs are normal, alkaline phosphatase is at 238. No abdominal pain. He has extensive thirst spacing an extensive edema in all 4 extremities and the left upper extremity is significantly swollen at this point in time. The patient has a right brachial arterial line catheter in place. Pulses are diminished in all 4 extremities and the patient remains cold and clammy and vasoconstricted. Note that his echo of the heart showed a preserved LV function. As such, the exact cause of shock is not clear although we have high suspicions for her septic shock. The patient was resuscitated with IV fluids, pressors, and broad-spectrum antibiotics. With a combination of Zosyn and vancomycin. Cultures are all negative. Pro-calcitonin level is slightly elevated. Mental status is improved. Stool for C. diff has been negative. Wound VAC is in place. Output from the wound VAC is minimal at this point in time. 01/08/2022, the patient is lethargic yet awake and following commands and answering questions. Extremely weak, oral intake is minimal oblique took some clear liquid diet yesterday and small amounts. Breathing is nonlabored and the patient remains on oxygen at 2 L per minute nasal cannula. Distal extensive thirst spacing and edema both in upper and lower extremity and the patient is not showing good response to diuretics. He was given 2 doses of 80 mg of IV Lasix yesterday with limited response and overall urine output has been in order of 2 70 mL over the past 24 hours. As such, urine output is no longer off 10-50 mL an hour. Nephrology was consulted. Creatinine is at 1.14 which is stable. The patient will be given IV albumin and following that he'll be given Lasix. He'll be given 25 g of IV albumin followed by 80 mg of IV Lasix. Creatinine is going to the monitors. Electrolytes are all stable. The patient's sodium is at 127. Serum bicarb is up to 23. He remains on a bicarb infusion running at the rate of 50 mL an hour. His serum albumin currently is at 1.6. At the same time, the patient remains hypotensive. His pressor requirements have dropped compared to yesterday. He remains on norepinephrine which is currently running at 0.18 mcg/kg per minute and the patient remains on a physiologic dose of vasopressin. As mentioned, all of the cultures of been negative. His abdomen is slightly tense and there may be some subcutaneous edema. No nausea. No emesis. No fever. The white cell count is at 9.5 with a hemoglobin of 8.9 and the blood work is essentially stable. As mentioned, the patient's pro- calcitonin was mildly elevated at 0.33. Stool for C. diff has been negative. The patient remains on IV Zosyn and vancomycin. Wound VAC is still in place. Output from the wound VAC is minimal at this point in time. He has a triple- lumen catheter in his left subclavian and he has also a right brachial arterial line catheter. Calcium on and off has been noted to be low and the patient is being supplemented with IV calcium. 01/09/2022 I'm seeing this patient for a follow-up. Since yesterday, the patient clinically is unchanged. He is weak and quite debilitated. Nevertheless, hemodynamically, his condition has somewhat improved as the patient is requiring significant lower doses of pressors. In fact, his norepinephrine infusion is down to 0.07 mcg/kg per minute and the vasopressin is at 0.03 an hour and the patient is able to maintain his own blood pressure in the patient's overall circulation, pulses in lower extremities and upper extremity is improved considerably. The patient continues to have increased edema in all 4 extremities. He was started on diuretics. He was given a dose of IV albumin yesterday 25 g and following that he was given diuretics in the urine output is obviously improving. He has produced 900 mL of urine output over the past 12 hours. The first on the case. Creatinine today is at 1.25. Sodium level is at 128. Serum bicarbs at 23 and we elected to discontinue the bicarb infusion. Otherwise, the patient has no major respiratory difficulties. He remains on oxygen at 2 L per minute nasal cannula. There is a drop in hemoglobin the morning blood work and hemoglobin was down to 5.5 and this was confirmed on 2 separate blood tests. We'll going to transfuse a total of 2 units of packed RBC. I contacted his and his power of civil litigation attorney and we okayed the blood transfusion. Note that his lactic acid level is also down to 3.6. He remains on IV Zosyn. Wound VAC is in place. Triple-lumen catheter is in place. Rest of the electrolytes are all stable. Oral intake remains quite diminished we will encourage increase oral intake. He is taking essentially clear liquid diet for now. No abdominal pain. No nausea or emesis. Cultures are obviously negative and the patient is afebrile. 01/10/2022, I'm seeing the patient for a follow-up. Clinically, the patient's condition is the same. Still lethargic and extremely weak and the patient is having significant amount of third spacing and edema in all 4 extremities. Yesterday, the patient received a total of 2 units of packed RBC with a hemoglobin of 5.7 the patient responded nicely and the hemoglobin today is up to 8.4. He is not showing any signs of bleeding. Eliquis was restarted. He is on Lasix 40 mg IV every 12 hours. The patient's urine output is gradually improving and the patient is in a negative fluid balance is in his had a hours a negative fluid balance of around 1.2 L at least till now. The patient has a weaned off the pressors. Norepinephrine is running at 0.08 mcg/kg per minute a nd the vasopressin is at the physiologic dose and this can be essentially discontinued for now. Urine output is excellent for now. The patient's BUN is a 13 with a creatinine of 1.2 and the sodium level of 137. He is currently on 2 L about 2 by nasal cannula. His white cell count of 4.9. Hemoglobin is at 8.4. Lethargic. Weak. Oral intake is quite diminished at this point in time. No major change clinically. Hemodynamically improved as the patient is nearly think the pressors and the patient is being diuresis for now. Objective - Vital Signs Vital signs: Vital Signs Temp 96.2 F L 01/10/22 11:30 Pulse 82 01/10/22 12:00 Resp 13 01/10/22 12:00 BP 77/51 01/10/22 12:00 Pulse Ox 99 01/10/22 12:00 FiO2 28 01/02/22 16:04 Intake & Output 01/09/22 01/10/22 01/10/22 18:59 06:59 18:59 Intake Total 1070.221 734.01 828.282 Output Total 925 1885 465 Balance 145.221 -1150.99 363.282 Weight 119.6 kg Intake: IV 286 198 174 0.9 NACL 220 120 50 pressure bags 66 78 24 zosyn 100 Intake, IV Titration 164.221 26.01 4.282 Amount Norepinephrine 32 mg In 23.308 4.282 Sodium Chloride 0.9% 218 ml @ 0.5 MCG/KG/MIN 20. 518 mls/hr IV .[id number] ERINN Rx#:[id number] Sodium Chloride 0.9% 150 140.913 26.01 ml @ 0.03 UNITS/MIN 4.59 mls/hr IV .Q24H ERINN with Vasopressin 60 unit Rx#: [id number] Oral 200 650 Blood Product 620 310 Rc As-1 Unit 310 [id number] Rc As-1 Unit 0 310 [id number] Output: Urine 925 1885 465 Other: Voiding Method Indwelling Catheter Indwelling Catheter Indwelling Catheter # Bowel Movements 1 ABP, PAP, CO, CI - Last Documented Arterial Blood Pressure 86/49 - Exam Gen. appearance the patient is awake and alert and is following simple commands. He is profoundly weak in all 4 extremities. No agitation. No delirium. Awake and alert and following commands and answering questions appropriately. The patient is currently on 2 L of oxygen by nasal cannula. Head exam was generally normal. There was no scleral icterus or corneal arcus. Mucous membranes were moist. Neck was supple and without jugular venous distension, thyromegaly, or carotid bruits. Carotids were easily palpable bilaterally. There was no adenopathy. Lungs were clear to auscultation and percussion, and with normal diaphragmatic excursion. No wheezes or rales were noted. Heart sounds are distant positive sinus and there is no significant murmurs appreciated Abdominal exam revealed normal bowel sounds. The abdomen was soft, non-tender, and without masses, organomegaly, or appreciable enlargement of the abdominal aorta. Patient is also developed some bleeding from the skin at the site of Lovenox injections. There is areas of ecchymosis. No direct tenderness. No rebound tenderness. No guarding. Surgical wound site over the right upper quadrant at the site of the open cholecystectomy dry clean and intact. Bowel sounds are hypoactive at the present. No distention. No ascites. Extremities are quite adequate pulses bilaterally, no cyanosis. Neurologically the patient is following commands and answering questions. No focal neurological deficits. Profoundly weak, extensive edema in all 4 extremities mainly in the left upper extremity that needs to be further worked up. Skin the patient has a wound VAC in his pulse ox regarding his stage IV sacral decubitus ulceration. - Labs CBC & Chem 7: 01/10/22 04:00 01/10/22 04:00 Labs: Abnormal Lab Results - Last 24 Hours (Table) 01/09/22 01/09/22 01/09/22 Range/Units 05:30 16:26 19:35 RBC (4.30-5.90) m/uL Hgb (13.0-17.5) gm/dL Hct (39.0-53.0) % RDW (11.5-15.5) % Plt Count (150-450) k/uL Sodium (137-145) mmol/L Potassium 3.2 L (3.5-5.1) mmol/L Glucose (74-99) mg/dL POC Glucose (mg/dL) 164 H (70-110) mg/dL Calcium (8.4-10.2) mg/dL Crossmatch See Detail 01/09/22 01/09/22 01/10/22 Range/Units 19:35 20:35 04:00 RBC 2.83 L 2.97 L (4.30-5.90) m/uL Hgb 8.2 L D 8.4 L (13.0-17.5) gm/dL Hct 24.7 L 25.7 L (39.0-53.0) % RDW 17.8 H 18.0 H (11.5-15.5) % Plt Count 140 L 137 L (150-450) k/uL Sodium (137-145) mmol/L Potassium (3.5-5.1) mmol/L Glucose (74-99) mg/dL POC Glucose (mg/dL) 211 H (70-110) mg/dL Calcium (8.4-10.2) mg/dL Crossmatch 01/10/22 01/10/22 Range/Units 04:00 11:37 RBC (4.30-5.90) m/uL Hgb (13.0-17.5) gm/dL Hct (39.0-53.0) % RDW (11.5-15.5) % Plt Count (150-450) k/uL Sodium 127 L (137-145) mmol/L Potassium 3.3 L (3.5-5.1) mmol/L Glucose 108 H (74-99) mg/dL POC Glucose (mg/dL) 143 H (70-110) mg/dL Calcium 7.0 L (8.4-10.2) mg/dL Crossmatch Microbiology - Last 24 Hours (Table) 01/06/22 02:25 Blood Culture - Preliminary Blood No Growth after 96 hours 01/05/22 18:30 Blood Culture - Preliminary Blood No Growth after 96 hours Assessment and Plan Plan: Acute shock state, possibly hypovolemic/septic. Cultures are still negative. Pro-calcitonin level is slightly elevated. Responded to fluids and pressors and antibiotics. Patient is afebrile. Pressor requirements are less compared to yesterday. For now, the patient is on a minimum more doses of norepinephrine infusion and vasopressin physiologic dose and I'm hopeful that the norepinephrine will be discontinued today. The patient has developing excessive thirst spacing. The patient hopefully will be taken off pressors today. He is currently being dialyzed IV Lasix. He remains on IV Zosyn. Change in mental status, improving slowly, rule out underlying metabolic encephalopathy Recent gangrenous cholecystitis with a right cholecystectomy, open. There is a collection in the gallbladder fossa which is most likely benign. Abdominal exam is benign and the patient is not having any abnormalities in liver function tests. Cachexia, failure to meet caloric requirements, weight loss, awaiting a PEG tube insertion, this was placed on hold because of a shock state and the patient will not have a active inserted. 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 Previous history of kidney failure requiring dialysis, current renal function is normal Hyponatremia, improved and the sodium level is up to 127 Excessive third spacing and edema, will be given IV albumin followed by Lasix Hypoalbuminemia with a serum albumin of 1.6 None Anion gap metabolic acidosis, improving History morbid obesity with ongoing weight loss Diabetes mellitus type 2 Bronchial asthma, chronic unspecified Diabetes mellitus type 2 Obstructive sleep apnea BPH Hypertension Hyperlipidemia Previous history of C. diff colitis, repeat stool for C. diff has been negative Generalized debility due to his medical condition and the [facility] has been [facility] following his surgery Anemia malignant acute drop in hemoglobin down to 5.5, , transfused with a total of 2 units of packed RBC and the patient's hemoglobin is up to 8.4 Plan Monitor hemoglobin The patient was given a total of 2 units of packed RBC yesterday Discontinue the vasopressin Discontinue hopefully the norepinephrine infusion Continue Lasix 40 mg IV every 12 hours Continue IV Zosyn for now Hemodynamically improved although the long-term prognosis remains poor specially with his debility and poor oral intake and impaired performance and functional status. I updated the and the brother on his condition. May need a PEG tube insertion of a later stage. His condition improves to improve his dietary condition and status. He continues to have a very poor prognosis based on the above-mentioned comorbidities. Continue following up this patient along with aggressive the consultants. Condition is critical. CODE STATUS is DNR/DNI based on patient's wishes. Critically care evaluation done more than 30 minutes Time with Patient: Greater than 30
--- NOTE | 2022-01-10 14:41 | P.PN ---
Progress Note - Text Progress Note Date: 01/10/22 Hospital course: this is a pleasant 61 yo M with past medical history of COPD, Diabetes Mellitus, Deep Vein Thrombosis, Hyperlipidemia, Hypertension, Sleep Apnea/CPAP/BIPAP He was in the hospital on 09/2021 for severe hypertension from decreased oral intake, acute metabolic encephalopathy, chronic congestive heart failure, diastolic with ejection fraction 55-60%, acute kidney injury, sinus tachycardia, status post cholecystectomy for his gangrenous cholecystitis, restless leg syndrome, BPH, chronic medical debility i talkled to the pt and at bed side , pt is from senior care , he was senior care since June 2021. At that time she was in the hospital for acute hypoxic respiratory failure of unknown causes. He needed intubation at that time. He had complete opacification in the left hemithorax he had 2 bronchoscopy done which was negative for microbial growth. He has another admission on 09/2021. Patient and states that he came here because he wanted to get the PEG tube because he was not eating anything since June and he lost a lot of weight he used to weigh 333 pounds and now 193. He states that his main issue is no appetite, he denies choking but he has sometimes nausea that prevent him from eating. Is also short of breath with cough and clear yellow phlegm but no chest pain, no abdominal pain. He has loose bowel movement once or twice a week. Also he has unstageable pressure decubitus ulcer status post debridement, he has wound VAC in place. Patient also complaining of from chronic left leg pain and tenderness, he would not allow someone to drop his leg because it hurts a lot. Inspection looks normal, no trauma. Also was complaining from weakness in both lower extremities since June Patient is tachycardic around 110, on admission heart rate was 125 afebrile. His lab reviewed including CBC showed mild anemia of 11.9, rest of CBC is un remarkable. INR is unremarkable at 1.1. Sodium was low at 123. Creatinine normal 0.8. Glucose was low at 66. Chest x-ray: No acute process. 01/02/2022 Last night patient was started on therapeutic dose Lovenox for acute right leg DVT, CT angiography chest and echo could not be done because have no IV access, patient was transferred to a small IV access was obtained in the right upper arm, not good enough for CT of the chest test or aggressive treatment. However IV fluids could be provided. Blood pressure is improved up to 110/68, however patient still tachycardic. Patient could not eat because of severe nausea and vomiting, H time he put something in his monthly follow-up as per bedside nurse, KUB showing some evidence of ileus, surgical team consult obtained. Social evaluation under direct consults are pending. 01/03/2022 Patient awake alert, looks more comfortable than the first taken to the hospital, less tachypneic, he denies any chest pain or abdominal pain. He tried to take small bites of mashed potato yesterday and he could not consume it and he immediately felt to throw up. CT of the chest is negative for PE, he remains on Lovenox for acute right DVT. CT of the abdomen is suspicious for a complex collection possible abscess although it's the size 5 cm diameter 2.7 cm, recommended ultrasound versus MRI, were going to order a liver ultrasound although it is of less sensitivity especially with this patient large body habitus however it is less invasive than MRI. Also flowcalcitonin is the slightly elevated. He is slightly tachycardic although is better than before. Blood pressure 93/63. Today sodium dropped 127 down to 122 because of this we held his IV fluids and reordered anemia workup in the urine and the serum, we will monitor his sodium level tomorrow if no improvement and may consider further workup. Surgical team consult is called, the plan for PEG tube placement on . Patient originally came to the hospital the PEG tube placement. Patient is not consuming his oral medication but we stopped his gabapentin and ropinirole. 01/04/2022 Kirsten Bach feels better today, he does not feel dizziness while he is lying in bed all the time. He still have low appetite but no chest pain or dyspnea, no abdominal pain. He still complaining from pain in his legs and he has right leg DVT been on Lovenox with plan to switch him to heparin drip on today as he got midline Blood pressure is 87/56, heart rate 120, sodium is 121 On admission his sodium was still low and was started on D5 normal saline at 100 mL/h however after initial improvement sodium dropped to 121 yesterday so we held his IV fluid and the evening sodium improved 124 (no iv lasix given), however this morning is 121 again. 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 Also patient has negative CTPA for pulmonary embolism but CT of the abdomen and pelvis showing possible gallbladder fossa abscess or complex fluid collection although it is improved from previous 5 cm down to 2.7 centimeters. The recommended liver ultrasound versus MRI, ultrasound shows the same findings. Also surgery due on the case 01/05/2022 Last night his blood pressure dropped with systolic and 50s, there was a rapid response a team response and he was as stated with IV fluids aggressively, his blood pressure improved in 90s this morning and during the round he was awake and alert looks tired but is appropriate. Sodium was 121 and then 119. He denied any chest pain or abdominal pain, no other complaints clinically. His losing from his puncture wound in the right lower abdomen was a stopped, he was started on heparin drip per recommendation of [employer] architect. After once by the evening time his blood pressure dropped again was 53/32 with altered mental status, there was another rapid response where patient was transferred to the ICU and levophed was started and his mentation started to improve again. Patient was started also on antibiotic empirically with Zosyn and IV vancomycin total infection ruled out completely as there is still high suspicion, with possible sources including the pressure wound sacral ulcer in the lower back, and less likely the gallbladder bed and fossa with 2.7 cm fluid collection (felt less likely because actually it decreased in size from 5.0 cm previously) After transfer patient and at bedside opted for the DO NOT RESUSCITATE order as per bedside nurse. 01/06/2022 Yesterday patient was still deteriorating, however today patient turned around and start improving patient remains in the ICU he needs to pressors we will fit and vasopressin, lactic acid trending up 6.4. Patient mentation is also deteriorated and become more confused and less responsive. His creatinine remains around 1 although he has low urine output. Patient is resuscitated with many fluids and also his broad-spectrum antibiotics with IV vancomycin and Zosyn, as septic shock is highly suspected is the cause of the patient profound hypotension and shock state. Although other factors might be contributing to it. Because of this we started the patient on hydrocortisone to increase the sensitivity of the adrenergic receptors to the catecholamine. Also replacing electrolytes including calcium and magnesium. Sodium slightly trending up. Patient remains in critical condition. Family at bedside 01/07/2022 Patient today workup and he was awake alert and oriented 3, he follows commands, he feels hungry and actually he started tolerating diet for the first time after several months. He denies any respiratory symptoms, his abdomen looks benign, no other new complaints. Blood pressure is improving and he required less pressors, currently blood pressure is 87/61, is less tachycardic around 110. He is currently on levophed 0.03 which is decreased from yesterday. Last night we added hydrocortisone 100 mg 3 times a day as a replacement therapy but to support blood pressure and increased sensitivity of levophed to its adrenergic receptors. Since blood pressure improvement with lower dose to 50 mg today, possibly we will discontinue it in one or 2 days once blood pressure keep improvement. Also patient receiving fluids. Labs looks stable, hemoglobin 9.8, sodium 126 he remains on Zosyn, vancomycin was discontinued. He remains on Zosyn. Anticoagulation is switched to Eliquis therapeutic dose at 10 mg which could be switched to 5 mg on 01/17. Prognosis remains guarded 01/08/2022 Patient is awake but drowsy, His blood pressure is improving but he still on pressors although is requiring less amount He has poor urine output but creatinine is around 1.1. His GFR is 66. He is going to receive 1 dose of Lasix 80 mg today. Also significant sodium bicarb and albumin infusion. He remains on Zosyn Anticoagulation with Eliquis January 09 2022: I assumed care of patient today. ICU: Tired. Lethargic. Patient drips include vasopressin and norepinephrine. the bedside. Getting 2 units of PRBC. Received IV albumin yesterday. Also received some IV diuretics. 2 L nasal cannula. Hemoglobin 5.5 today. On IV Zosyn. Wound VAC. On clear liquids. 01/10/2022: ICU: Remains in bed. Tired. Lethargic. Following simple commands. On IV levo fed. IV Zosyn. Discussed with at the bedside. Eating small amounts. Receive 2 units of blood yesterday. Active Medications Hydrocodone Bitart/Acetaminophen (Hydrocodone/Apap 5-325mg 1 Each Tab) 1 each PO Q6HR PRN PRN Reason: Pain Last Admin: 01/08/22 13:23 Dose: 1 each Albuterol Sulfate (Albuterol Nebulized 2.5 Mg/3 Ml) 2.5 mg INHALATION Q2H PRN PRN Reason: AIRWAY PATENCY Last Admin: 12/31/21 21:36 Dose: 2.5 mg Albuterol/Ipratropium (Ipratropium-Albuterol 3 Ml Neb) 3 ml INHALATION RT-QID [facility] Last Admin: 01/10/22 11:40 Dose: 3 ml Apixaban (Apixaban 5 Mg Tab) 10 mg PO BID [facility]; Protocol Stop: 01/14/22 21:01 Last Admin: 01/10/22 10:22 Dose: 10 mg Ascorbic Acid (Ascorbic Acid 500 Mg Tab) 1,000 mg PO DAILY@0800 [facility] Last Admin: 01/10/22 08:19 Dose: 1,000 mg Cholecalciferol (Cholecalciferol 25 Mcg (1000 Iu) Tablet) 25 mcg PO DAILY [facility] Last Admin: 01/10/22 08:19 Dose: 25 mcg Dronabinol (Dronabinol 2.5 Mg Cap) 5 mg PO BID@1200,1700 [facility] Last Admin: 01/10/22 11:42 Dose: 5 mg Folic Acid (Folic Acid 1 Mg Tab) 1 mg PO DAILY [facility] Last Admin: 01/10/22 08:19 Dose: 1 mg Furosemide (Furosemide 10 Mg/Ml 4 Ml Vial) 40 mg IV Q12HR [facility] Last Admin: 01/10/22 08:20 Dose: 40 mg Hydromorphone HCl (Hydromorphone 0.5 Mg/0.5 Ml Syringe) 0.5 mg IVP Q4HR PRN PRN Reason: Pain Last Admin: 01/07/22 21:50 Dose: 0.5 mg Norepinephrine Bitartrate 32 (mg/ Sodium Chloride) 250 mls @ 20.518 mls/hr IV .[id number] [facility]; Protocol Last Admin: 01/10/22 11:02 Dose: 0.14 mcg/kg/min, 5.745 mls/hr Piperacillin Sod/Tazobactam (Sod 3.375 gm/ Sodium Chloride) 100 mls @ 25 mls/hr IVPB Q8H [facility]; Protocol Last Admin: 01/10/22 11:42 Dose: 25 mls/hr Sodium Chloride (Saline 0.9%) 1,000 mls @ 10 mls/hr IV .Q24H [facility] Last Admin: 01/10/22 12:37 Dose: 10 mls/hr Potassium Chloride 20 meq/ IV (Solution) 100 mls @ 50 mls/hr IVPB Q2H [facility]; Protocol Stop: 01/10/22 18:44 Insulin Aspart (Insulin Aspart (Novolog) 100 Unit/Ml Vial) 0 unit SQ ACHS [facility]; Protocol Last Admin: 01/10/22 12:37 Dose: 1 unit Lidocaine HCl (Lidocaine 1% (10mg/Ml) For Iv Start) 0.1 ml INTRADERMA PER PROTOCOL PRN PRN Reason: IV Start Magnesium Oxide (Magnesium Oxide 400 Mg Tab) 400 mg PO TID [facility] Last Admin: 01/10/22 08:19 Dose: 400 mg Metoclopramide HCl (Metoclopramide 5 Mg/Ml 2 Ml Vial) 10 mg IVP Q6HR [facility] Last Admin: 01/10/22 12:35 Dose: Not Given Metoprolol Tartrate (Metoprolol Tartrate 50 Mg Tab) 50 mg PO BID@0800,1600 [facility] Last Admin: 01/10/22 08:23 Dose: 50 mg Midodrine (Midodrine 5 Mg Tab) 10 mg PO AC-TID [facility] Last Admin: 01/10/22 11:42 Dose: 10 mg Miscellaneous Information (Magnesium Replacement Protocol 1 Each Misc) 1 each MISCELLANE DAILY PRN; Protocol PRN Reason: Per Protocol Miscellaneous Information (Potassium Replacement Protocol 1 Each Misc) 1 each MISCELLANE DAILY PRN; Protocol PRN Reason: Per Protocol Multivitamins (Multivitamins, Thera 1 Each Tab) 1 each PO DAILY [facility] Last Admin: 01/10/22 08:19 Dose: 1 each Naloxone HCl (Naloxone 0.4 Mg/Ml 1 Ml Vial) 0.2 mg IV Q2M PRN PRN Reason: Opioid Reversal Ondansetron HCl (Ondansetron 4 Mg/2 Ml Vial) 4 mg IVP Q6HR PRN PRN Reason: Nausea And Vomiting Last Admin: 01/02/22 18:15 Dose: 4 mg Pantoprazole Sodium (Pantoprazole 40 Mg/10 Ml Vial) 40 mg IVP BID [facility] Last Admin: 01/10/22 08:20 Dose: 40 mg Sodium Bicarbonate (Sodium Bicarbonate Tab 650 Mg Tab) 650 mg PO TID [facility] Last Admin: 01/10/22 08:19 Dose: 650 mg Tamsulosin HCl (Tamsulosin 0.4 Mg Cap.Er.24h) 0.4 mg PO DAILY [facility] Last Admin: 01/10/22 08:19 Dose: 0.4 mg On examination: VITAL SIGNS: 96.2, 84, 16, 91/55, 100% on 2 L GENERAL APPEARANCE: Tired lethargic but follows commands. HEENT: Normal external appearance of nose and ear. Oral cavity normal EYES: Pupils equal. Conjunctiva normal. NECK: JVD unable to assess. Mass not palpable. RESPIRATORY: Respiratory effort increased. Decreased breath sounds to auscultation. CARDIOVASCULAR: First and second sounds normal. Some edema. ABDOMEN: Soft. Liver and spleen not palpable. No tenderness. No mass palpable. PSYCHIATRY: Alert and oriented x3. Mood and affect low appearing Muscular skeletal: Stage IV pressure ulcer left buttock. INVESTIGATIONS, reviewed in the clinical context: January 10: Obesity 4.9 hemoglobin 8.4 platelets 137 sodium 137 potassium 3.3 creatinine 1.2 January 09: White count 5.6 hemoglobin 5.5 platelets 179 sodium 128 potassium 3.2 creatinine 1.25 albumin 2.2 LIVER: ULTRASOUND:. PRIOR CHOLECYSTECTOMY. COMPLEX AREA SEEN IN THE GALLBLADDER FOSSA. CONTAINING A FEW BUBBLES. CT abdomen: Persistent heterogenous hyperdense area in the hepatic parenchyma adjacent to the gallbladder fossa. Limited 2-D echocardiogram: Home LV function. Ultrasound venous Doppler: Positive DVT right lower extremity. Assessment and plan: Severe hypotension and shock state requiring pressors, possible septic shock : Slow to respond -Acute metabolic encephalopathy, multifactorial: Slow to respond Complex liver collection adjacent to gallbladder fossa 2.7 cm suspicious for abscess versus other: Slow to respond Hyponatremia Persistent nausea and vomiting secondary to ileus, Acute right leg DVT Severe appetite loss associated with Loss of weight and nausea Dehydration and hypovolemia, improving Unstageable chronic decubitus ulcer status post wound VAC placement Anemia of chronic diseases mellitus, With hyperglycemia on admission Hypertension Hyperlipidemia COPD Chronic congestive heart failure with ejection fraction 55-60% Sinus tachycardia Status post cholecystectomy Restless leg syndrome BPH Chronic medical debility DO NOT RESUSCITATE IV , norepinephrine. . Sinus rhythm. IV Zosyn: Eliquis. Discussed with at the bedside.
[2022-01-10] MEDS: POTASSIUM CHLORIDE 20 MEQ in WATER FOR INJECTION 1 100ML.BAG IVPB SCH ×2 (15:52→17:55)
[2022-01-10 16:34] LABS: Glucose,Whole Blood 175 mg/dL (70-110)
[2022-01-10 20:44] LABS: Glucose,Whole Blood 191 mg/dL (70-110)
[2022-01-11] MEDS: NOREPINEPHRINE 32 MG in SODIUM CHLORIDE 0.9% 218 ML IV SCH ×2 (03:09→17:01)
[2022-01-11] MEDS: PIPERACILLIN-TAZOBACTAM 3.375 GM in SODIUM CHLORIDE 0.9% 100 ML IVPB SCH ×3 (03:10→21:31)
[2022-01-11 06:17] LABS: Albumin 2.2 g/dL (3.5-5.0); Calcium 7.2 mg/dL (8.4-10.2); Magnesium 1.7 mg/dL (1.6-2.3); Phosphorus 1.7 mg/dL (2.5-4.5); Potassium 3.5 mmol/L (3.5-5.1); Total Bilirubin 0.6 mg/dL (0.2-1.3); Total Protein 4.2 g/dL (6.3-8.2)
[2022-01-11 06:36] LABS: Glucose,Whole Blood 101 mg/dL (70-110)
[2022-01-11] MEDS ORDERED: Potassium Replacement Protocol 1 EACH MISC MISCELLANE PRN ×2 (07:10→22:51)
[2022-01-11] MEDS: IPRATROPIUM-ALBUTEROL 3 ML NEB INHALATION SCH ×4 (07:42→18:38)
[2022-01-11] MEDS: METOCLOPRAMIDE 5 MG/ML 2 ML VIAL IVP SCH ×4 (07:43→23:53)
--- NOTE | 2022-01-11 08:48 | XR ---
EXAMINATION TYPE: XR chest 1V portable DATE OF EXAM: 01/11/2022 HISTORY: Shortness of breath. COMPARISON: 01/05/2022 TECHNIQUE: Single view of the chest is submitted. FINDINGS: Demonstrated are scattered senescent parenchymal change. Right perihilar and right basilar infiltrate as well as left lower lobe infiltrate and/or atelectasis . The heart is stable. Hilar and mediastinal structures are within normal limits. Degenerative changes are seen of the dorsal spine. IMPRESSION: 1. Right perihilar and right basilar infiltrate as well as left lower lobe infiltrate and/or atelect asis.
[2022-01-11] MEDS: APIXABAN 5 MG TAB PO SCH ×2 (09:00→21:32)
[2022-01-11] MEDS: ASCORBIC ACID 500 MG TAB PO SCH (09:00)
[2022-01-11] MEDS: POTASSIUM CHLORIDE ER 20 MEQ TAB.ER PO SCH ×3 (09:00→09:34)
[2022-01-11] MEDS: MIDODRINE 5 MG TAB PO SCH ×3 (09:01→17:07)
[2022-01-11] MEDS: PANTOPRAZOLE 40 MG/10 ML VIAL IVP SCH ×2 (09:01→21:32)
[2022-01-11] MEDS: INSULIN ASPART (NovoLOG) 100 UNIT/ML VIAL SQ SCH ×4 (09:02→21:32)
[2022-01-11] MEDS: FOLIC ACID 1 MG TAB PO SCH (09:02)
[2022-01-11] MEDS: METOPROLOL TARTRATE 50 MG TAB PO SCH ×2 (09:03→17:01)
[2022-01-11] MEDS: MAGNESIUM OXIDE 400 MG TAB PO SCH ×3 (09:05→21:32)
[2022-01-11] MEDS: CHOLECALCIFEROL 25 MCG (1000 IU) TABLET PO SCH (09:05)
[2022-01-11] MEDS: SODIUM BICARBONATE TAB 650 MG TAB PO SCH ×3 (09:06→21:32)
[2022-01-11] MEDS: TAMSULOSIN 0.4 MG CAP.ER.24H PO SCH (09:06)
[2022-01-11] MEDS: MULTIVITAMINS, THERA 1 EACH TAB PO SCH (09:07)
[2022-01-11] MEDS: POTASSIUM CHLORIDE 20 MEQ in WATER FOR INJECTION 1 100ML.BAG IVPB SCH ×3 (09:46→23:06)
[2022-01-11] MEDS ORDERED: Phosphorus Replacement Protoco 1 EACH MISC MISCELLANE PRN (09:50)
--- NOTE | 2022-01-11 09:51 | P.PN ---
Subjective Patient is seen in follow-up for hyponatremia and acute kidney injury. Currently on Levophed. On IV Lasix. Nonoliguric. Oral intake poor. Sodium level 132 today. Hemoglobin improved post blood transfusion. No active bleeding per the nurse. Vital signs are stable. On vasopressor support. General: Awake. No acute distress. HEENT: Head exam is unremarkable. On nasal cannula. LUNGS: Breath sounds decreased. HEART: Tachycardic. ABDOMEN: Soft, no distention. EXTREMITITES: 2+ edema. Objective - Vital Signs Vital signs: Vital Signs Temp 97.6 F 01/11/22 09:00 Pulse 102 H 01/11/22 09:00 Resp 14 01/11/22 09:00 BP 101/68 01/10/22 13:30 Pulse Ox 99 01/11/22 09:00 FiO2 28 01/02/22 16:04 Intake & Output 01/10/22 01/11/22 01/11/22 18:59 06:59 18:59 Intake Total 1246.889 386.234 64 Output Total 1140 2065 450 Balance 106.889 -1678.766 -386 Weight 119.6 kg 118.8 kg Intake: IV 252 331 64 0.9 NACL 110 120 30 pressure bags 42 36 9 zosyn 100 175 25 Intake, IV Titration 244.889 55.234 Amount Norepinephrine 32 mg In 44.889 55.234 Sodium Chloride 0.9% 218 ml @ 0.5 MCG/KG/MIN 20. 518 mls/hr IV .[id number] [facility] Rx#:[id number] Potassium Chloride 20 meq 200 In Water For Injection 1 100ml.bag @ 50 mls/hr IVPB Q2H [facility] Rx#: [id number] Oral 750 Output: Urine 1140 2065 450 Other: Voiding Method Indwelling Catheter Indwelling Catheter ABP, PAP, CO, CI - Last Documented Arterial Blood Pressure 112/61 - Labs CBC & Chem 7: 01/10/22 04:00 01/11/22 05:40 Labs: Abnormal Lab Results - Last 24 Hours (Table) 01/10/22 01/10/22 01/10/22 Range/Units 11:37 14:05 16:33 Sodium (137-145) mmol/L Potassium 3.4 L (3.5-5.1) mmol/L POC Glucose (mg/dL) 143 H 175 H (70-110) mg/dL Calcium (8.4-10.2) mg/dL Phosphorus (2.5-4.5) mg/dL Alkaline Phosphatase (38-126) U/L Total Protein (6.3-8.2) g/dL Albumin (3.5-5.0) g/dL 01/10/22 01/11/22 Range/Units 20:43 05:40 Sodium 132 L (137-145) mmol/L Potassium (3.5-5.1) mmol/L POC Glucose (mg/dL) 191 H (70-110) mg/dL Calcium 7.2 L (8.4-10.2) mg/dL Phosphorus 1.7 L (2.5-4.5) mg/dL Alkaline Phosphatase 173 H (38-126) U/L Total Protein 4.2 L (6.3-8.2) g/dL Albumin 2.2 L (3.5-5.0) g/dL Microbiology - Last 24 Hours (Table) 01/06/22 02:25 Blood Culture - Preliminary Blood No Growth after 120 hours 01/05/22 18:30 Blood Culture - Preliminary Blood No Growth after 120 hours Assessment and Plan Plan: Assessment: 1. Acute kidney injury secondary to ATN secondary to hypotension/shock. Creatinine fairly stable at 1.24 today. Nonoliguric. 2. Hyponatremia. Hypervolemic. Improved. 3. Shock. Possibly septic possible source gallbladder versus decubitus ulcer. On antibiotics. On vasopressor support. 4. Lower extremity edema. 5. Metabolic acidosis secondary to acute kidney injury status post bicarb drip. Improved. On oral bicarbonate. 6. Hypokalemia from diuresis. 7. Acute blood loss anemia status post blood transfusion 01/09/2022. Stool for occult blood negative. C. diff negative. 8. Hypophosphatemia from poor intake. Plan: Status post IV albumin given 01/08/2022. Maintain IV Lasix 40 mg twice daily. Encouraged oral intake. Wean vasopressors. Potassium being replaced. Replace phosphorus as well. Status post [facility] [place] 01/10/[facility].
[2022-01-11] MEDS: FUROSEMIDE 10 MG/ML 4 ML VIAL IV SCH ×2 (10:11→21:32)
[2022-01-11 10:25] LABS: Anisocytosis Slight; HCT 30.9 % (39.0-53.0); HGB 10.3 gm/dL (13.0-17.5); Hypochromasia Slight; MCH 29.3 pg (25.0-35.0); MCHC 33.5 g/dL (31.0-37.0); MCV 87.6 fL (80.0-100.0); Mean Platelet Volume 10.2; Platelet Count 153 k/uL (150-450); Poikilocytosis Slight; RBC 3.52 m/uL (4.30-5.90); RDW 18.5 % (11.5-15.5); WBC 5.6 k/uL (3.8-10.6)
[2022-01-11] MEDS: SODIUM PHOSPHATE 10 MMOL in SODIUM CHLORIDE 0.9% 250 ML IV SCH ×2 (11:20→13:31)
[2022-01-11 11:48] LABS: Glucose,Whole Blood 180 mg/dL (70-110)
[2022-01-11] MEDS ORDERED: IOPAMIDOL CONTRAST (ORAL USE) VIAL PO PRN ×2 (13:00→13:22)
--- NOTE | 2022-01-11 13:08 | P.PN ---
Progress Note - Text Progress Note Date: 01/11/22 Hospital course: this is a pleasant 61 yo M with past medical history of COPD, Diabetes Mellitus, Deep Vein Thrombosis, Hyperlipidemia, Hypertension, Sleep Apnea/CPAP/BIPAP He was in the hospital on 09/2021 for severe hypertension from decreased oral intake, acute metabolic encephalopathy, chronic congestive heart failure, diastolic with ejection fraction 55-60%, acute kidney injury, sinus tachycardia, status post cholecystectomy for his gangrenous cholecystitis, restless leg syndrome, BPH, chronic medical debility i talkled to the pt and at bed side , pt is from assisted , he was assisted since June 2021. At that time she was in the hospital for acute hypoxic respiratory failure of unknown causes. He needed intubation at that time. He had complete opacification in the left hemithorax he had 2 bronchoscopy done which was negative for microbial growth. He has another admission on 09/2021. Patient and states that he came here because he wanted to get the PEG tube because he was not eating anything since June and he lost a lot of weight he used to weigh 333 pounds and now 193. He states that his main issue is no appetite, he denies choking but he has sometimes nausea that prevent him from eating. Is also short of breath with cough and clear yellow phlegm but no chest pain, no abdominal pain. He has loose bowel movement once or twice a week. Also he has unstageable pressure decubitus ulcer status post debridement, he has wound VAC in place. Patient also complaining of from chronic left leg pain and tenderness, he would not allow someone to drop his leg because it hurts a lot. Inspection looks normal, no trauma. Also was complaining from weakness in both lower extremities since June Patient is tachycardic around 110, on admission heart rate was 125 afebrile. His lab reviewed including CBC showed mild anemia of 11.9, rest of CBC is un remarkable. INR is unremarkable at 1.1. Sodium was low at 123. Creatinine normal 0.8. Glucose was low at 66. Chest x-ray: No acute process. 01/02/2022 Last night patient was started on therapeutic dose Lovenox for acute right leg DVT, CT angiography chest and echo could not be done because have no IV access, patient was transferred to a small IV access was obtained in the right upper arm, not good enough for CT of the chest test or aggressive treatment. However IV fluids could be provided. Blood pressure is improved up to 110/68, however patient still tachycardic. Patient could not eat because of severe nausea and vomiting, H time he put something in his monthly follow-up as per bedside nurse, KUB showing some evidence of ileus, surgical team consult obtained. Social evaluation under direct consults are pending. 01/03/2022 Patient awake alert, looks more comfortable than the first taken to the hospital, less tachypneic, he denies any chest pain or abdominal pain. He tried to take small bites of mashed potato yesterday and he could not consume it and he immediately felt to throw up. CT of the chest is negative for PE, he remains on Lovenox for acute right DVT. CT of the abdomen is suspicious for a complex collection possible abscess although it's the size 5 cm diameter 2.7 cm, recommended ultrasound versus MRI, were going to order a liver ultrasound although it is of less sensitivity especially with this patient large body habitus however it is less invasive than MRI. Also flowcalcitonin is the slightly elevated. He is slightly tachycardic although is better than before. Blood pressure 93/63. Today sodium dropped 127 down to 122 because of this we held his IV fluids and reordered anemia workup in the urine and the serum, we will monitor his sodium level tomorrow if no improvement and may consider further workup. Surgical team consult is called, the plan for PEG tube placement on . Patient originally came to the hospital the PEG tube placement. Patient is not consuming his oral medication but we stopped his gabapentin and ropinirole. 01/04/2022 Kirsten Bach feels better today, he does not feel dizziness while he is lying in bed all the time. He still have low appetite but no chest pain or dyspnea, no abdominal pain. He still complaining from pain in his legs and he has right leg DVT been on Lovenox with plan to switch him to heparin drip on today as he got midline Blood pressure is 87/56, heart rate 120, sodium is 121 On admission his sodium was still low and was started on D5 normal saline at 100 mL/h however after initial improvement sodium dropped to 121 yesterday so we held his IV fluid and the evening sodium improved 124 (no iv lasix given), however this morning is 121 again. We send urine studies and I'll consult envelope folding machine adjuster. Also patient has negative CTPA for pulmonary embolism but CT of the abdomen and pelvis showing possible gallbladder fossa abscess or complex fluid collection although it is improved from previous 5 cm down to 2.7 centimeters. The recommended liver ultrasound versus MRI, ultrasound shows the same findings. Also surgery due on the case 01/05/2022 Last night his blood pressure dropped with systolic and 50s, there was a rapid response a team response and he was as stated with IV fluids aggressively, his blood pressure improved in 90s this morning and during the round he was awake and alert looks tired but is appropriate. Sodium was 121 and then 119. He denied any chest pain or abdominal pain, no other complaints clinically. His losing from his puncture wound in the right lower abdomen was a stopped, he was started on heparin drip per recommendation of template checker. After once by the evening time his blood pressure dropped again was 53/32 with altered mental status, there was another rapid response where patient was transferred to the ICU and levophed was started and his mentation started to improve again. Patient was started also on antibiotic empirically with Zosyn and IV vancomycin total infection ruled out completely as there is still high suspicion, with possible sources including the pressure wound sacral ulcer in the lower back, and less likely the gallbladder bed and fossa with 2.7 cm fluid collection (felt less likely because actually it decreased in size from 5.0 cm previously) After transfer patient and at bedside opted for the DO NOT RESUSCITATE order as per bedside nurse. 01/06/2022 Yesterday patient was still deteriorating, however today patient turned around and start improving patient remains in the ICU he needs to pressors we will fit and vasopressin, lactic acid trending up 6.4. Patient mentation is also deteriorated and become more confused and less responsive. His creatinine remains around 1 although he has low urine output. Patient is resuscitated with many fluids and also his broad-spectrum antibiotics with IV vancomycin and Zosyn, as septic shock is highly suspected is the cause of the patient profound hypotension and shock state. Although other factors might be contributing to it. Because of this we started the patient on hydrocortisone to increase the sensitivity of the adrenergic receptors to the catecholamine. Also replacing electrolytes including calcium and magnesium. Sodium slightly trending up. Patient remains in critical condition. Family at bedside 01/07/2022 Patient today workup and he was awake alert and oriented 3, he follows commands, he feels hungry and actually he started tolerating diet for the first time after several months. He denies any respiratory symptoms, his abdomen looks benign, no other new complaints. Blood pressure is improving and he required less pressors, currently blood pressure is 87/61, is less tachycardic around 110. He is currently on levophed 0.03 which is decreased from yesterday. Last night we added hydrocortisone 100 mg 3 times a day as a replacement therapy but to support blood pressure and increased sensitivity of levophed to its adrenergic receptors. Since blood pressure improvement with lower dose to 50 mg today, possibly we will discontinue it in one or 2 days once blood pressure keep improvement. Also patient receiving fluids. Labs looks stable, hemoglobin 9.8, sodium 126 he remains on Zosyn, vancomycin was discontinued. He remains on Zosyn. Anticoagulation is switched to Eliquis therapeutic dose at 10 mg which could be switched to 5 mg on 01/17. Prognosis remains guarded 01/08/2022 Patient is awake but drowsy, His blood pressure is improving but he still on pressors although is requiring less amount He has poor urine output but creatinine is around 1.1. His GFR is 66. He is going to receive 1 dose of Lasix 80 mg today. Also significant sodium bicarb and albumin infusion. He remains on Zosyn Anticoagulation with Eliquis January 09 2022: I assumed care of patient today. ICU: Tired. Lethargic. Patient drips include vasopressin and norepinephrine. the bedside. Getting 2 units of PRBC. Received IV albumin yesterday. Also received some IV diuretics. 2 L nasal cannula. Hemoglobin 5.5 today. On IV Zosyn. Wound VAC. On clear liquids. 01/10/2022: ICU: Remains in bed. Tired. Lethargic. Following simple commands. On IV levo fed. IV Zosyn. Discussed with at the bedside. Eating small amounts. Receive 2 units of blood yesterday. 01/11/2022: ICU: Tired lethargic. at the bedside. IV levo fed. Poor oral intake. Discussed with Dr. Dong from ID. Rule out right upper quadrant abscess versus infected hematoma. Computed tomography scan with contrast ordered. Active Medications Hydrocodone Bitart/Acetaminophen (Hydrocodone/Apap 5-325mg 1 Each Tab) 1 each PO Q6HR PRN PRN Reason: Pain Last Admin: 01/08/22 13:23 Dose: 1 each Albuterol Sulfate (Albuterol Nebulized 2.5 Mg/3 Ml) 2.5 mg INHALATION Q2H PRN PRN Reason: AIRWAY PATENCY Last Admin: 12/31/21 21:36 Dose: 2.5 mg Albuterol/Ipratropium (Ipratropium-Albuterol 3 Ml Neb) 3 ml INHALATION RT-QID [facility] Last Admin: 01/11/22 11:21 Dose: Not Given Apixaban (Apixaban 5 Mg Tab) 10 mg PO BID [facility] [place]; Protocol Stop: 01/14/22 21:01 Last Admin: 01/11/22 09:00 Dose: 10 mg Ascorbic Acid (Ascorbic Acid 500 Mg Tab) 1,000 mg PO DAILY@0800 [facility] [place] Last Admin: 01/11/22 09:00 Dose: 1,000 mg Cholecalciferol (Cholecalciferol 25 Mcg (1000 Iu) Tablet) 25 mcg PO DAILY [facility] [place] Last Admin: 01/11/22 09:05 Dose: 25 mcg Dronabinol (Dronabinol 2.5 Mg Cap) 5 mg PO BID@1200,1700 [facility] [place] Last Admin: 01/11/22 11:52 Dose: 5 mg Folic Acid (Folic Acid 1 Mg Tab) 1 mg PO DAILY [facility] [place] Last Admin: 01/11/22 09:02 Dose: 1 mg Furosemide (Furosemide 10 Mg/Ml 4 Ml Vial) 40 mg IV Q12HR [facility] [place] Last Admin: 01/11/22 10:11 Dose: 40 mg Hydromorphone HCl (Hydromorphone 0.5 Mg/0.5 Ml Syringe) 0.5 mg IVP Q4HR PRN PRN Reason: Pain Last Admin: 01/07/22 21:50 Dose: 0.5 mg Norepinephrine Bitartrate 32 (mg/ Sodium Chloride) 250 mls @ 20.518 mls/hr IV .[id number] [facility] [place]; Protocol Last Titration: 01/11/22 11:21 Dose: 0.12 mcg/kg/min, 4.924 mls/hr Piperacillin Sod/Tazobactam (Sod 3.375 gm/ Sodium Chloride) 100 mls @ 25 mls/hr IVPB Q8H [facility] [place]; Protocol Last Admin: 01/11/22 11:43 Dose: 25 mls/hr Sodium Chloride (Saline 0.9%) 1,000 mls @ 10 mls/hr IV .Q24H [facility] [place] Last Admin: 01/10/22 12:37 Dose: 10 mls/hr Potassium Chloride 20 meq/ IV (Solution) 100 mls @ 50 mls/hr IVPB Q2H [facility] [place]; Protocol Stop: 01/11/22 13:14 Last Admin: 01/11/22 09:46 Dose: 50 mls/hr Sodium Phosphate 10 mmol/ (Sodium Chloride) 253.3333 mls @ 125 mls/hr IV Q2H [facility] [place] Stop: 01/11/22 13:59 Last Admin: 01/11/22 11:20 Dose: 125 mls/hr Insulin Aspart (Insulin Aspart (Novolog) 100 Unit/Ml Vial) 0 unit SQ ACHS [facility] [place]; Protocol Last Admin: 01/11/22 11:52 Dose: 3 unit Iopamidol (Iopamidol Contrast (Oral Use) Vial) 30 ml PO Q60M PRN PRN Reason: CT Scan Stop: 01/12/22 13:01 Lidocaine HCl (Lidocaine 1% (10mg/Ml) For Iv Start) 0.1 ml INTRADERMA PER PROTOCOL PRN PRN Reason: IV Start Magnesium Oxide (Magnesium Oxide 400 Mg Tab) 400 mg PO TID [facility] [place] Last Admin: 01/11/22 09:05 Dose: 400 mg Metoclopramide HCl (Metoclopramide 5 Mg/Ml 2 Ml Vial) 10 mg IVP Q6HR [facility] [place] Last Admin: 01/11/22 11:52 Dose: Not Given Metoprolol Tartrate (Metoprolol Tartrate 50 Mg Tab) 50 mg PO BID@0800,1600 [facility] [place] Last Admin: 01/11/22 09:03 Dose: Not Given Midodrine (Midodrine 5 Mg Tab) 10 mg PO AC-TID [facility] [place] Last Admin: 01/11/22 09:01 Dose: 10 mg Miscellaneous Information (Magnesium Replacement Protocol 1 Each Misc) 1 each MISCELLANE DAILY PRN; Protocol PRN Reason: Per Protocol Miscellaneous Information (Potassium Replacement Protocol 1 Each Misc) 1 each MISCELLANE DAILY PRN; Protocol PRN Reason: Per Protocol Miscellaneous Information (Potassium Replacement Protocol 1 Each Misc) 1 each MISCELLANE DAILY PRN; Protocol PRN Reason: Per Protocol Miscellaneous Information (Phosphorus Replacement Protoco 1 Each Misc) 1 each MISCELLANE DAILY PRN; Protocol PRN Reason: Per Protocol Multivitamins (Multivitamins, Thera 1 Each Tab) 1 each PO DAILY [facility] [place] Last Admin: 01/11/22 09:07 Dose: 1 each Naloxone HCl (Naloxone 0.4 Mg/Ml 1 Ml Vial) 0.2 mg IV Q2M PRN PRN Reason: Opioid Reversal Ondansetron HCl (Ondansetron 4 Mg/2 Ml Vial) 4 mg IVP Q6HR PRN PRN Reason: Nausea And Vomiting Last Admin: 01/02/22 18:15 Dose: 4 mg Pantoprazole Sodium (Pantoprazole 40 Mg/10 Ml Vial) 40 mg IVP BID [facility] [place] Last Admin: 01/11/22 09:01 Dose: 40 mg Sodium Bicarbonate (Sodium Bicarbonate Tab 650 Mg Tab) 650 mg PO TID [facility] [place] Last Admin: 01/11/22 09:06 Dose: 650 mg Tamsulosin HCl (Tamsulosin 0.4 Mg Cap.Er.24h) 0.4 mg PO DAILY [facility] [place] Last Admin: 01/11/22 09:06 Dose: 0.4 mg On examination: VITAL SIGNS: 97.6, 102, 21, 1 21 x 62, 99% on 2 L GENERAL APPEARANCE: Tired lethargic HEENT: Normal external appearance of nose and ear. Oral cavity normal EYES: Pupils equal. Conjunctiva normal. NECK: JVD unable to assess. Mass not palpable. RESPIRATORY: Respiratory effort increased. Decreased breath sounds to auscultation. CARDIOVASCULAR: First and second sounds normal. Some edema. ABDOMEN: Soft. Liver and spleen not palpable. No tenderness. No mass palpable. PSYCHIATRY: Just about answers questions. Muscular skeletal: Stage IV pressure ulcer left buttock. With wound VAC INVESTIGATIONS, reviewed in the clinical context: January 11: White count 5.6 hemoglobin 10.3 sodium 132 potassium 3.5 creatinine 1.24 January 10: Obesity 4.9 hemoglobin 8.4 platelets 137 sodium 137 potassium 3.3 creatinine 1.2 January 09: White count 5.6 hemoglobin 5.5 platelets 179 sodium 128 potassium 3.2 creatinine 1.25 albumin 2.2 LIVER: ULTRASOUND:. PRIOR CHOLECYSTECTOMY. COMPLEX AREA SEEN IN THE GALLBLADDER FOSSA. CONTAINING A FEW BUBBLES. CT abdomen: Persistent heterogenous hyperdense area in the hepatic parenchyma adjacent to the gallbladder fossa. Limited 2-D echocardiogram: Home LV function. Ultrasound venous Doppler: Positive DVT right lower extremity. Assessment and plan: Severe hypotension and shock state requiring pressors, possible septic shock : Slow to respond -Acute metabolic encephalopathy, multifactorial: Slow to respond -Complex liver collection adjacent to gallbladder fossa 2.7 cm suspicious for abscess versus other: Slow to respond Repeat computed tomography scan of the abdomen with contrast -Hyponatremia Follow labs -Persistent nausea and vomiting secondary to ileus,: Better -Acute right leg DVT Eliquis -Severe anorexia: Slow to respond On Marinol. Encourage oral intake -Dehydration and hypovolemia, improving -Unstageable chronic decubitus ulcer - wound VAC placement -Anemia of chronic diseases -Hyperphosphatemia Supplement phosphorus Hypertension Hyperlipidemia COPD Chronic congestive heart failure with ejection fraction 55-60% Sinus tachycardia Status post cholecystectomy Restless leg syndrome BPH Chronic medical debility DO NOT RESUSCITATE IV , norepinephrine. . Sinus rhythm. IV Zosyn: Eliquis. Discussed with at the bedside. Discussed with ID. For computed tomography scan of the abdomen with contrast to rule out right upper quadrant abscess versus infected hematoma.
[2022-01-11 13:23] LABS: Eosinophils # (M) 0.06 k/uL (0-0.7); Lymphocytes # (M) 1.12 k/uL (1.0-4.8); Monocytes # (M) 0.39 k/uL (0-1.0); Neutrophils # (M) 4.03 k/uL (1.3-7.7); Neutrophils % (M) 72 %; Nucleated Red Blood Cells 0 /100 WBC (0-0); Total Cells Counted 100
[2022-01-11 13:24] LABS: Target Cells Present
[2022-01-11] MEDS: SODIUM CHLORIDE 0.9% 1,000 ML IV SCH (13:32)
--- NOTE | 2022-01-11 14:02 | P.PN ---
Subjective Progress Note Date: 01/11/22 Principal diagnosis: Septic shock, likely source is stage IV decubitus ulcer 01/10/2022, I'm seeing the patient for a follow-up. Clinically, the patient's condition is the same. Still lethargic and extremely weak and the patient is having significant amount of third spacing and edema in all 4 extremities. Yesterday, the patient received a total of 2 units of packed RBC with a hemoglobin of 5.7 the patient responded nicely and the hemoglobin today is up to 8.4. He is not showing any signs of bleeding. Eliquis was restarted. He is on Lasix 40 mg IV every 12 hours. The patient's urine output is gradually improving and the patient is in a negative fluid balance is in his had a hours a negative fluid balance of around 1.2 L at least till now. The patient has a weaned off the pressors. Norepinephrine is running at 0.08 mcg/kg per minute and the vasopressin is at the physiologic dose and this can be essentially discontinued for now. Urine output is excellent for now. The patient's BUN is a 13 with a creatinine of 1.2 and the sodium level of 137. He is currently on 2 L about 2 by nasal cannula. His white cell count of 4.9. Hemoglobin is at 8.4. Lethargic. Weak. Oral intake is quite diminished at this point in time. No major change clinically. Hemodynamically improved as the patient is nearly think the pressors and the patient is being diuresis for now. Reevaluated today on 01/11/22, patient remains in the ICU, presently on 2 L nasal cannula with O2 sats of 98%. Patient is still requiring norepinephrine at 0.15 mcg/kg/m patient remains on Lasix 40 mg IV push every 12 hours, and he had a - 1.57 L over the last 24 hours chest x-ray continues to show evidence of mild interstitial edema, his IV fluid is at 10 mL per hour. Today we recommended that we monitor the CVP and continue the Lasix. Patient seems to be frail and chronically ill. Not in respiratory distress. His WBC count is 5.6 hemoglobin 10.3 electrolytes are normal renal profile is normal, liver profile is unremarkable and albumin is low at 2.2 chest x-ray is showing improvement in his interstitial edema Objective - Vital Signs Vital signs: Vital Signs Temp 97.6 F 01/11/22 09:00 Pulse 96 01/11/22 13:00 Resp 18 01/11/22 13:00 BP 101/68 01/10/22 13:30 Pulse Ox 99 01/11/22 13:00 FiO2 28 01/02/22 16:04 Intake & Output 01/10/22 01/11/22 01/11/22 18:59 06:59 18:59 Intake Total 1246.889 386.234 235.123 Output Total 1140 2065 750 Balance 106.889 -1678.766 -514.877 Weight 119.6 kg 118.8 kg Intake: IV 252 331 90 0.9 NACL 110 120 50 pressure bags 42 36 15 zosyn 100 175 25 Intake, IV Titration 244.889 55.234 145.123 Amount Norepinephrine 32 mg In 44.889 55.234 45.123 Sodium Chloride 0.9% 218 ml @ 0.5 MCG/KG/MIN 20. 518 mls/hr IV .[id number] [facility] Rx#:[id number] Potassium Chloride 20 meq 200 In Water For Injection 1 100ml.bag @ 50 mls/hr IVPB Q2H [facility] Rx#: [id number] Potassium Chloride 20 meq 100 In Water For Injection 1 100ml.bag @ 50 mls/hr IVPB Q2H [facility] Rx#: [id number] Oral 750 Output: Urine 1140 5 750 Other: Voiding Method Indwelling Catheter Indwelling Catheter Indwelling Catheter ABP, PAP, CO, CI - Last Documented Arterial Blood Pressure 114/61 - Exam GENERAL APPEARANCE: Revealed a 61-year-old white male, chronically ill, frail looking. Head: Atraumatic, normocephalic. HEENT: PERRLA, EOMI, nonicteric. EYES: Pupils equal. Conjunctiva normal. NECK: No JVD no neck masses no stridor RESPIRATORY: Diminished breath sounds at the bases no rhonchi no wheezes CARDIOVASCULAR: Distant S1 and S2, no S3 gallop, no murmur. ABDOMEN: Soft nontender no megaly no rebound no guarding.. PSYCHIATRY: Depressed mood, blunt affect, appropriate mental status. Muscular skeletal: Stage IV pressure ulcer left buttock. With wound VAC - Labs CBC & Chem 7: 01/11/22 05:40 01/11/22 05:40 Labs: Abnormal Lab Results - Last 24 Hours (Table) 01/10/22 01/10/22 01/10/22 Range/Units 14:05 16:33 20:43 RBC (4.30-5.90) m/uL Hgb (13.0-17.5) gm/dL Hct (39.0-53.0) % RDW (11.5-15.5) % Sodium (137-145) mmol/L Potassium 3.4 L (3.5-5.1) mmol/L POC Glucose (mg/dL) 175 H 191 H (70-110) mg/dL Calcium (8.4-10.2) mg/dL Phosphorus (2.5-4.5) mg/dL Alkaline Phosphatase (38-126) U/L Total Protein (6.3-8.2) g/dL Albumin (3.5-5.0) g/dL 01/11/22 01/11/22 01/11/22 Range/Units 05:40 05:40 11:46 RBC 3.52 L (4.30-5.90) m/uL Hgb 10.3 L (13.0-17.5) gm/dL Hct 30.9 L (39.0-53.0) % RDW 18.5 H (11.5-15.5) % Sodium 132 L (137-145) mmol/L Potassium (3.5-5.1) mmol/L POC Glucose (mg/dL) 180 H (70-110) mg/dL Calcium 7.2 L (8.4-10.2) mg/dL Phosphorus 1.7 L (2.5-4.5) mg/dL Alkaline Phosphatase 173 H (38-126) U/L Total Protein 4.2 L (6.3-8.2) g/dL Albumin 2.2 L (3.5-5.0) g/dL Microbiology - Last 24 Hours (Table) 01/06/22 02:25 Blood Culture - Preliminary Blood No Growth after 120 hours 01/05/22 18:30 Blood Culture - Preliminary Blood No Growth after 120 hours Assessment and Plan Assessment: Impression: Septic shock, most likely source is stage IV decubitus ulcer Acute metabolic encephalopathy secondary to sepsis History of gangrenous cholecystitis requiring surgery History of DVT, on anticoagulation therapy Stage IV decubitus ulcer with wound VAC. Hypoalbuminemia. Non-anion gap metabolic acidosis. Improved. Type 2 diabetes. Chronic bronchial asthma doesn't list stable. Obstructive sleep apnea syndrome. Benign essential hypertension. Dyslipidemia. Medical debility. Patient has been bedbound for a few months. Chronic anemia Recommendation: Continue to monitor in the ICU. Continue pressors and titrate accordingly Nutritional support. GI and DVT prophylaxis. Continue anticoagulation therapy for DVT. Continue to monitor hemoglobin Titrate norepinephrine accordingly Continue antibiotics to Zosyn May need a PEG tube placement Condition remains critical. CODE STATUS/DO NOT RESUSCITATE. We will continue to follow. Critical care time is over 30 minutes Time with Patient: Greater than 30
[2022-01-11 16:50] LABS: Glucose,Whole Blood 119 mg/dL (70-110)
--- NOTE | 2022-01-11 17:20 | P.PN ---
Progress Note - Text Progress Note Date: 01/11/22 Patient is tolerating oral diet. There is no plan for PEG tube currently. We will sign off.
[2022-01-11 20:26] LABS: Glucose,Whole Blood 133 mg/dL (70-110)
[2022-01-11 21:28] LABS: Glucose,Whole Blood 132 mg/dL (70-110)
[2022-01-11 22:44] LABS: Magnesium 1.6 mg/dL (1.6-2.3); Potassium 3.2 mmol/L (3.5-5.1)
[2022-01-11] MEDS ORDERED: Magnesium Replacement Protocol 1 EACH MISC MISCELLANE PRN (22:51)
[2022-01-11] MEDS: MAGNESIUM SULFATE-D5W PMX 1 GM in DEXTROSE/WATER 1 100ML.BAG IVPB SCH (23:05)
[2022-01-12] MEDS: MAGNESIUM SULFATE-D5W PMX 1 GM in DEXTROSE/WATER 1 100ML.BAG IVPB SCH (00:14)
[2022-01-12] MEDS: POTASSIUM CHLORIDE 20 MEQ in WATER FOR INJECTION 1 100ML.BAG IVPB SCH (00:45)
[2022-01-12] MEDS: NOREPINEPHRINE 32 MG in SODIUM CHLORIDE 0.9% 218 ML IV SCH ×2 (02:47→18:11)
[2022-01-12] MEDS: PIPERACILLIN-TAZOBACTAM 3.375 GM in SODIUM CHLORIDE 0.9% 100 ML IVPB SCH ×3 (03:21→20:54)
[2022-01-12 04:57] LABS: Anisocytosis Slight; HCT 29.5 % (39.0-53.0); HGB 9.9 gm/dL (13.0-17.5); MCH 28.9 pg (25.0-35.0); MCHC 33.4 g/dL (31.0-37.0); MCV 86.6 fL (80.0-100.0); Mean Platelet Volume 8.2; Platelet Count 126 k/uL (150-450); Poikilocytosis Slight; RBC 3.41 m/uL (4.30-5.90); RDW 18.5 % (11.5-15.5); WBC 4.5 k/uL (3.8-10.6)
[2022-01-12 05:06] LABS: Calcium 7.3 mg/dL (8.4-10.2); Phosphorus 2.7 mg/dL (2.5-4.5); Potassium 3.6 mmol/L (3.5-5.1); Total Bilirubin 0.8 mg/dL (0.2-1.3)
[2022-01-12] MEDS ORDERED: Potassium Replacement Protocol 1 EACH MISC MISCELLANE PRN (05:15)
[2022-01-12] MEDS: POTASSIUM CHLORIDE 10 MEQ in WATER FOR INJECTION 1 100ML.BAG IVPB SCH ×2 (05:32→06:29)
[2022-01-12 06:13] LABS: Glucose,Whole Blood 140 mg/dL (70-110)
[2022-01-12] MEDS: INSULIN ASPART (NovoLOG) 100 UNIT/ML VIAL SQ SCH ×4 (06:28→20:57)
[2022-01-12] MEDS: MIDODRINE 5 MG TAB PO SCH ×3 (06:28→17:36)
[2022-01-12] MEDS: METOCLOPRAMIDE 5 MG/ML 2 ML VIAL IVP SCH ×2 (06:33→12:06)
[2022-01-12] MEDS: IPRATROPIUM-ALBUTEROL 3 ML NEB INHALATION SCH ×4 (07:46→18:55)
--- NOTE | 2022-01-12 09:01 | P.PN ---
Subjective Patient is seen in follow-up for hyponatremia and acute kidney injury. Remains on Levophed. On IV Lasix. Nonoliguric. Sodium level 134 today. Hemoglobin improved post blood transfusion. No active bleeding per the nurse. Vital signs are stable. On vasopressor support. General: Awake. No acute distress. HEENT: Head exam is unremarkable. On nasal cannula. LUNGS: Breath sounds decreased. HEART: Regular rate and rhythm. ABDOMEN: Soft, no distention. EXTREMITITES: 1+ edema. Objective - Vital Signs Vital signs: Vital Signs Temp 97.2 F L 01/12/22 04:00 Pulse 102 H 01/12/22 07:00 Resp 18 01/12/22 07:00 BP 101/68 01/12/22 07:00 Pulse Ox 98 01/12/22 07:00 FiO2 28 01/02/22 16:04 Intake & Output 01/11/22 01/12/22 01/12/22 18:59 06:59 18:59 Intake Total 716.452 240.866 59 Output Total 2850 2300 305 Balance -2133.548 -2059.134 -246 Weight 81 kg Intake: IV 194 143 39 0.9 NACL 130 110 30 pressure bags 39 33 9 zosyn 25 Intake, IV Titration 522.452 77.866 Amount Norepinephrine 32 mg In 72.452 77.866 Sodium Chloride 0.9% 218 ml @ 0.5 MCG/KG/MIN 20. 518 mls/hr IV .[id number] ERINN Rx#:[id number] Potassium Chloride 20 meq 200 In Water For Injection 1 100ml.bag @ 50 mls/hr IVPB Q2H ERINN Rx#: [id number] Sodium Phosphate 10 mmol 250 In Sodium Chloride 0.9% 250 ml @ 125 mls/hr IV Q2H ERINN Rx#:[id number] Oral 20 20 Output: Urine 2850 2300 305 Other: Voiding Method Indwelling Catheter Indwelling Catheter # Bowel Movements 1 ABP, PAP, CO, CI - Last Documented Arterial Blood Pressure 118/61 - Labs CBC & Chem 7: 01/12/22 04:45 01/12/22 04:45 Labs: Abnormal Lab Results - Last 24 Hours (Table) 01/11/22 01/11/22 01/11/22 Range/Units 05:40 11:46 16:48 RBC 3.52 L (4.30-5.90) m/uL Hgb 10.3 L (13.0-17.5) gm/dL Hct 30.9 L (39.0-53.0) % RDW 18.5 H (11.5-15.5) % Plt Count (150-450) k/uL Sodium (137-145) mmol/L Potassium (3.5-5.1) mmol/L Glucose (74-99) mg/dL POC Glucose (mg/dL) 180 H 119 H (70-110) mg/dL Calcium (8.4-10.2) mg/dL Alkaline Phosphatase (38-126) U/L Total Protein (6.3-8.2) g/dL Albumin (3.5-5.0) g/dL 01/11/22 01/11/22 01/11/22 Range/Units 20:24 21:26 22:33 RBC (4.30-5.90) m/uL Hgb (13.0-17.5) gm/dL Hct (39.0-53.0) % RDW (11.5-15.5) % Plt Count (150-450) k/uL Sodium (137-145) mmol/L Potassium 3.2 L (3.5-5.1) mmol/L Glucose (74-99) mg/dL POC Glucose (mg/dL) 133 H 132 H (70-110) mg/dL Calcium (8.4-10.2) mg/dL Alkaline Phosphatase (38-126) U/L Total Protein (6.3-8.2) g/dL Albumin (3.5-5.0) g/dL 01/12/22 01/12/22 01/12/22 Range/Units 04:45 04:45 06:10 RBC 3.41 L (4.30-5.90) m/uL Hgb 9.9 L (13.0-17.5) gm/dL Hct 29.5 L (39.0-53.0) % RDW 18.5 H (11.5-15.5) % Plt Count 126 L (150-450) k/uL Sodium 134 L (137-145) mmol/L Potassium (3.5-5.1) mmol/L Glucose 132 H (74-99) mg/dL POC Glucose (mg/dL) 140 H (70-110) mg/dL Calcium 7.3 L (8.4-10.2) mg/dL Alkaline Phosphatase 177 H (38-126) U/L Total Protein 4.0 L (6.3-8.2) g/dL Albumin 2.0 L (3.5-5.0) g/dL Microbiology - Last 24 Hours (Table) 01/06/22 02:25 Blood Culture - Final Blood No Growth after 144 hours 01/05/22 18:30 Blood Culture - Final Blood No Growth after 144 hours Assessment and Plan Plan: Assessment: 1. Acute kidney injury secondary to ATN secondary to hypotension/shock. Creatinine fairly stable at 1.22 today. Nonoliguric. 2. Hyponatremia. Hypervolemic. Improved. 3. Shock. Possibly septic possible source gallbladder versus decubitus ulcer. On antibiotics. On vasopressor support. 4. Lower extremity edema. Improving with diuresis. 5. Metabolic acidosis secondary to acute kidney injury status post bicarb drip. Improved. On oral bicarbonate. 6. Hypokalemia from diuresis. Being replaced. 7. Acute blood loss anemia status post blood transfusion 01/09/2022. Stool for occult blood negative. C. diff negative. 8. Hypophosphatemia from poor intake. Replaced. Better. Plan: Status post IV albumin given 01/08/2022. Maintain IV Lasix 40 mg twice daily. Encouraged oral intake. Wean vasopressors. Potassium being replaced. Status post Samsca 01/10/2022. Stop oral bicarbonate. Cortisol level not low.
--- NOTE | 2022-01-12 09:58 | XR ---
EXAMINATION TYPE: XR chest 1V portable DATE OF EXAM: 01/12/2022 9:40 AM COMPARISON: Chest radiographs from 01/11/2022 and 01/05/2022 TECHNIQUE: XR chest 1V portable Portable AP radiograph of the chest. CLINICAL INDICATION:Male, 61 years old with history of dyspnea; FINDINGS: Lungs/Pleura: Generalized hazy appearance throughout the lungs which is similar to immediate prior bu t new from 01/05/2022 There is no evidence of pleural effusion, or pneumothorax. Pulmonary vascularity: Pulmonary vascular congestion. Heart/mediastinum: Cardiomediastinal silhouette is prominent in size. Musculoskeletal: No acute osseous pathology. Other findings: None Lines/Tubes: Left-sided PICC with distal tip at the superior vena cava/brachiocephalic confluence. IMPRESSION: Persistent airspace opacities throughout the lungs with a generalized hazy appearance which is new fr om 01/05/2022 but similar to immediate prior. Continued attention on follow-up imaging. Correlate for volume overload.
[2022-01-12] MEDS: METOPROLOL TARTRATE 50 MG TAB PO SCH (10:11)
[2022-01-12] MEDS: PANTOPRAZOLE 40 MG/10 ML VIAL IVP SCH ×2 (11:02→20:57)
[2022-01-12] MEDS: APIXABAN 5 MG TAB PO SCH ×2 (11:02→20:58)
[2022-01-12] MEDS: TAMSULOSIN 0.4 MG CAP.ER.24H PO SCH (11:03)
[2022-01-12] MEDS: CHOLECALCIFEROL 25 MCG (1000 IU) TABLET PO SCH (11:03)
[2022-01-12] MEDS: MAGNESIUM OXIDE 400 MG TAB PO SCH ×3 (11:03→23:01)
[2022-01-12] MEDS: ASCORBIC ACID 500 MG TAB PO SCH (11:03)
[2022-01-12] MEDS: FOLIC ACID 1 MG TAB PO SCH (11:03)
[2022-01-12] MEDS: MULTIVITAMINS, THERA 1 EACH TAB PO SCH (11:03)
[2022-01-12 11:33] LABS: Glucose,Whole Blood 138 mg/dL (70-110)
[2022-01-12] MEDS: SODIUM CHLORIDE 0.9% 1,000 ML IV SCH (12:07)
--- NOTE | 2022-01-12 12:42 | P.PN ---
Subjective Progress Note Date: 01/12/22 Principal diagnosis: Septic shock, likely source is stage IV decubitus ulcer 01/10/2022, I'm seeing the patient for a follow-up. Clinically, the patient's condition is the same. Still lethargic and extremely weak and the patient is having significant amount of third spacing and edema in all 4 extremities. Yesterday, the patient received a total of 2 units of packed RBC with a hemoglobin of 5.7 the patient responded nicely and the hemoglobin today is up to 8.4. He is not showing any signs of bleeding. Eliquis was restarted. He is on Lasix 40 mg IV every 12 hours. The patient's urine output is gradually improving and the patient is in a negative fluid balance is in his had a hours a negative fluid balance of around 1.2 L at least till now. The patient has a weaned off the pressors. Norepinephrine is running at 0.08 mcg/kg per minute and the vasopressin is at the physiologic dose and this can be essentially discontinued for now. Urine output is excellent for now. The patient's BUN is a 13 with a creatinine of 1.2 and the sodium level of 137. He is currently on 2 L about 2 by nasal cannula. His white cell count of 4.9. Hemoglobin is at 8.4. Lethargic. Weak. Oral intake is quite diminished at this point in time. No major change clinically. Hemodynamically improved as the patient is nearly think the pressors and the patient is being diuresis for now. Reevaluated today on 01/11/22, patient remains in the ICU, presently on 2 L nasal cannula with O2 sats of 98%. Patient is still requiring norepinephrine at 0.15 mcg/kg/m patient remains on Lasix 40 mg IV push every 12 hours, and he had a - 1.57 L over the last 24 hours chest x-ray continues to show evidence of mild interstitial edema, his IV fluid is at 10 mL per hour. Today we recommended that we monitor the CVP and continue the Lasix. Patient seems to be frail and chronically ill. Not in respiratory distress. His WBC count is 5.6 hemoglobin 10.3 electrolytes are normal renal profile is normal, liver profile is unremarkable and albumin is low at 2.2 chest x-ray is showing improvement in his interstitial edema Patient was reevaluated today on 01/12/2022, remains in the ICU, remains hypotensive requiring small dose of norepinephrine at 0.08 mcg/kg/m patient is on IV fluid at KVO remains on diuretics remains on antibiotics he is alert, oriented 3, he is on room air with O2 sats of 99%. He is very weak and bed bound for the last few months. Patient was supposed to have CT of the abdomen, however I did not feel the need or and urgency for a CT of the abdomen since his clinical findings are benign, his abdomen is nonsurgical and I went ahead and canceled the CT of the abdomen which is scheduled to be done today. Patient did not receive a PEG tube mostly because he is eating on his own, but the amount seems to be very small. WBC count today is 4.5, global is 9.9 electrolytes are normal renal profile showed a creatinine 1.22. 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 Objective - Vital Signs Vital signs: Vital Signs Temp 97.7 F 01/12/22 08:00 Pulse 87 01/12/22 11:00 Resp 10 L 01/12/22 11:00 BP 101/68 01/12/22 07:00 Pulse Ox 97 01/12/22 11:00 FiO2 28 01/02/22 16:04 Intake & Output 01/11/22 01/12/22 01/12/22 18:59 06:59 18:59 Intake Total 716.452 240.866 515.391 Output Total 2850 2300 730 Balance -2133.548 -2059.134 -214.609 Weight 81 kg 81 kg Intake: IV 194 143 143 0.9 NACL 130 110 110 pressure bags 39 33 33 zosyn 25 Intake, IV Titration 522.452 77.866 97.391 Amount Norepinephrine 32 mg In 72.452 77.866 97.391 Sodium Chloride 0.9% 218 ml @ 0.5 MCG/KG/MIN 20. 518 mls/hr IV .[id number] ERINN Rx#:[id number] Potassium Chloride 20 meq 200 In Water For Injection 1 100ml.bag @ 50 mls/hr IVPB Q2H ERINN Rx#: [id number] Sodium Phosphate 10 mmol 250 In Sodium Chloride 0.9% 250 ml @ 125 mls/hr IV Q2H ERINN Rx#:[id number] Oral 20 275 Output: Urine 2850 2300 730 Other: Voiding Method Indwelling Catheter Indwelling Catheter Indwelling Catheter # Bowel Movements 1 ABP, PAP, CO, CI - Last Documented Arterial Blood Pressure 106/61 - Exam GENERAL APPEARANCE: Revealed a 61-year-old white male, chronically ill, frail looking. Head: Atraumatic, normocephalic. HEENT: PERRLA, EOMI, nonicteric. Left subclavian central line is noted. EYES: Pupils equal. Conjunctiva normal. NECK: No JVD no neck masses no stridor RESPIRATORY: Diminished breath sounds at the bases no rhonchi no wheezes CARDIOVASCULAR: Distant S1 and S2, no S3 gallop, no murmur. ABDOMEN: Soft nontender no megaly no rebound no guarding.. PSYCHIATRY: Depressed mood, blunt affect, appropriate mental status. Muscular skeletal: Stage IV pressure ulcer left buttock. With wound VAC - Labs CBC & Chem 7: 01/12/22 04:45 01/12/22 04:45 Labs: Abnormal Lab Results - Last 24 Hours (Table) 01/11/22 01/11/22 01/11/22 Range/Units 16:48 20:24 21:26 RBC (4.30-5.90) m/uL Hgb (13.0-17.5) gm/dL Hct (39.0-53.0) % RDW (11.5-15.5) % Plt Count (150-450) k/uL Sodium (137-145) mmol/L Potassium (3.5-5.1) mmol/L Glucose (74-99) mg/dL POC Glucose (mg/dL) 119 H 133 H 132 H (70-110) mg/dL Calcium (8.4-10.2) mg/dL Alkaline Phosphatase (38-126) U/L Total Protein (6.3-8.2) g/dL Albumin (3.5-5.0) g/dL 01/11/22 01/12/22 01/12/22 Range/Units 22:33 04:45 04:45 RBC 3.41 L (4.30-5.90) m/uL Hgb 9.9 L (13.0-17.5) gm/dL Hct 29.5 L (39.0-53.0) % RDW 18.5 H (11.5-15.5) % Plt Count 126 L (150-450) k/uL Sodium 134 L (137-145) mmol/L Potassium 3.2 L (3.5-5.1) mmol/L Glucose 132 H (74-99) mg/dL POC Glucose (mg/dL) (70-110) mg/dL Calcium 7.3 L (8.4-10.2) mg/dL Alkaline Phosphatase 177 H (38-126) U/L Total Protein 4.0 L (6.3-8.2) g/dL Albumin 2.0 L (3.5-5.0) g/dL 01/12/22 01/12/22 Range/Units 06:10 11:32 RBC (4.30-5.90) m/uL Hgb (13.0-17.5) gm/dL Hct (39.0-53.0) % RDW (11.5-15.5) % Plt Count (150-450) k/uL Sodium (137-145) mmol/L Potassium (3.5-5.1) mmol/L Glucose (74-99) mg/dL POC Glucose (mg/dL) 140 H 138 H (70-110) mg/dL Calcium (8.4-10.2) mg/dL Alkaline Phosphatase (38-126) U/L Total Protein (6.3-8.2) g/dL Albumin (3.5-5.0) g/dL Microbiology - Last 24 Hours (Table) 01/06/22 02:25 Blood Culture - Final Blood No Growth after 144 hours 01/05/22 18:30 Blood Culture - Final Blood No Growth after 144 hours Assessment and Plan Assessment: Impression: Septic shock, most likely source is stage IV decubitus ulcer Acute metabolic encephalopathy secondary to sepsis History of gangrenous cholecystitis requiring surgery History of DVT, on anticoagulation therapy Stage IV decubitus ulcer with wound VAC. Hypoalbuminemia. Non-anion gap metabolic acidosis. Improved. Type 2 diabetes. Chronic bronchial asthma doesn't list stable. Obstructive sleep apnea syndrome. Benign essential hypertension. Dyslipidemia. Medical debility. Patient has been bedbound for a few months. Chronic anemia Recommendation: Taper and possibly discontinue norepinephrine and if that happens patient could be transferred out of the ICU to regular medical floor. In the meantime: Continue to monitor in the ICU. Continue pressors and titrate accordingly Continue oral feeding/Nutritional support. May have to consider supplementation with TPN GI and DVT prophylaxis. Continue anticoagulation therapy for DVT. Continue to monitor hemoglobin, no drop of hemoglobin in the last 4 days Continue antibiotics to Zosyn Condition remains critical. CODE STATUS/DO NOT RESUSCITATE. We will continue to follow. Discussed his condition with the admitting physician on the case Critical care time is over 30 minutes Time with Patient: Greater than 30
[2022-01-12] MEDS ORDERED: LIDOCAINE 1% INJ 10MG/ML (5 ML VIAL-PF) SQ ONE (12:55)
--- NOTE | 2022-01-12 12:55 | P.PN ---
Progress Note - Text Progress Note Date: 01/12/22 Hospital course: this is a pleasant 61 yo M with past medical history of COPD, Diabetes Mellitus, Deep Vein Thrombosis, Hyperlipidemia, Hypertension, Sleep Apnea/CPAP/BIPAP He was in the hospital on 09/2021 for severe hypertension from decreased oral intake, acute metabolic encephalopathy, chronic congestive heart failure, diastolic with ejection fraction 55-60%, acute kidney injury, sinus tachycardia, status post cholecystectomy for his gangrenous cholecystitis, restless leg syndrome, BPH, chronic medical debility i talkled to the pt and at bed side , pt is from shelter , he was shelter since June 2021. At that time she was in the hospital for acute hypoxic respiratory failure of unknown causes. He needed intubation at that time. He had complete opacification in the left hemithorax he had 2 bronchoscopy done which was negative for microbial growth. He has another admission on 09/2021. Patient and states that he came here because he wanted to get the PEG tube because he was not eating anything since June and he lost a lot of weight he used to weigh 333 pounds and now 193. He states that his main issue is no appetite, he denies choking but he has sometimes nausea that prevent him from eating. Is also short of breath with cough and clear yellow phlegm but no chest pain, no abdominal pain. He has loose bowel movement once or twice a week. Also he has unstageable pressure decubitus ulcer status post debridement, he has wound VAC in place. Patient also complaining of from chronic left leg pain and tenderness, he would not allow someone to drop his leg because it hurts a lot. Inspection looks normal, no trauma. Also was complaining from weakness in both lower extremities since June Patient is tachycardic around 110, on admission heart rate was 125 afebrile. His lab reviewed including CBC showed mild anemia of 11.9, rest of CBC is un remarkable. INR is unremarkable at 1.1. Sodium was low at 123. Creatinine normal 0.8. Glucose was low at 66. Chest x-ray: No acute process. 01/02/2022 Last night patient was started on therapeutic dose Lovenox for acute right leg DVT, CT angiography chest and echo could not be done because have no IV access, patient was transferred to a small IV access was obtained in the right upper arm, not good enough for CT of the chest test or aggressive treatment. However IV fluids could be provided. Blood pressure is improved up to 110/68, however patient still tachycardic. Patient could not eat because of severe nausea and vomiting, H time he put something in his monthly follow-up as per bedside nurse, KUB showing some evidence of ileus, surgical team consult obtained. Social evaluation under direct consults are pending. 01/03/2022 Patient awake alert, looks more comfortable than the first taken to the hospital, less tachypneic, he denies any chest pain or abdominal pain. He tried to take small bites of mashed potato yesterday and he could not consume it and he immediately felt to throw up. CT of the chest is negative for PE, he remains on Lovenox for acute right DVT. CT of the abdomen is suspicious for a complex collection possible abscess although it's the size 5 cm diameter 2.7 cm, recommended ultrasound versus MRI, were going to order a liver ultrasound although it is of less sensitivity especially with this patient large body habitus however it is less invasive than MRI. Also flowcalcitonin is the slightly elevated. He is slightly tachycardic although is better than before. Blood pressure 93/63. Today sodium dropped 127 down to 122 because of this we held his IV fluids and reordered anemia workup in the urine and the serum, we will monitor his sodium level tomorrow if no improvement and may consider further workup. Surgical team consult is called, the plan for PEG tube placement on . Patient originally came to the hospital the PEG tube placement. Patient is not consuming his oral medication but we stopped his gabapentin and ropinirole. 01/04/2022 Kirsten Bach feels better today, he does not feel dizziness while he is lying in bed all the time. He still have low appetite but no chest pain or dyspnea, no abdominal pain. He still complaining from pain in his legs and he has right leg DVT been on Lovenox with plan to switch him to heparin drip on today as he got midline Blood pressure is 87/56, heart rate 120, sodium is 121 On admission his sodium was still low and was started on D5 normal saline at 100 mL/h however after initial improvement sodium dropped to 121 yesterday so we held his IV fluid and the evening sodium improved 124 (no iv lasix given), however this morning is 121 again. 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 Also patient has negative CTPA for pulmonary embolism but CT of the abdomen and pelvis showing possible gallbladder fossa abscess or complex fluid collection although it is improved from previous 5 cm down to 2.7 centimeters. The recommended liver ultrasound versus MRI, ultrasound shows the same findings. Also surgery due on the case 01/05/2022 Last night his blood pressure dropped with systolic and 50s, there was a rapid response a team response and he was as stated with IV fluids aggressively, his blood pressure improved in 90s this morning and during the round he was awake and alert looks tired but is appropriate. Sodium was 121 and then 119. He denied any chest pain or abdominal pain, no other complaints clinically. His losing from his puncture wound in the right lower abdomen was a stopped, he was started on heparin drip per recommendation of licensed mortician. After once by the evening time his blood pressure dropped again was 53/32 with altered mental status, there was another rapid response where patient was transferred to the ICU and levophed was started and his mentation started to improve again. Patient was started also on antibiotic empirically with Zosyn and IV vancomycin total infection ruled out completely as there is still high suspicion, with possible sources including the pressure wound sacral ulcer in the lower back, and less likely the gallbladder bed and fossa with 2.7 cm fluid collection (felt less likely because actually it decreased in size from 5.0 cm previously) After transfer patient and at bedside opted for the DO NOT RESUSCITATE order as per bedside nurse. 01/06/2022 Yesterday patient was still deteriorating, however today patient turned around and start improving patient remains in the ICU he needs to pressors we will fit and vasopressin, lactic acid trending up 6.4. Patient mentation is also deteriorated and become more confused and less responsive. His creatinine remains around 1 although he has low urine output. Patient is resuscitated with many fluids and also his broad-spectrum antibiotics with IV vancomycin and Zosyn, as septic shock is highly suspected is the cause of the patient profound hypotension and shock state. Although other factors might be contributing to it. Because of this we started the patient on hydrocortisone to increase the sensitivity of the adrenergic receptors to the catecholamine. Also replacing electrolytes including calcium and magnesium. Sodium slightly trending up. Patient remains in critical condition. Family at bedside 01/07/2022 Patient today workup and he was awake alert and oriented 3, he follows commands, he feels hungry and actually he started tolerating diet for the first time after several months. He denies any respiratory symptoms, his abdomen looks benign, no other new complaints. Blood pressure is improving and he required less pressors, currently blood pressure is 87/61, is less tachycardic around 110. He is currently on levophed 0.03 which is decreased from yesterday. Last night we added hydrocortisone 100 mg 3 times a day as a replacement therapy but to support blood pressure and increased sensitivity of levophed to its adrenergic receptors. Since blood pressure improvement with lower dose to 50 mg today, possibly we will discontinue it in one or 2 days once blood pressure keep improvement. Also patient receiving fluids. Labs looks stable, hemoglobin 9.8, sodium 126 he remains on Zosyn, vancomycin was discontinued. He remains on Zosyn. Anticoagulation is switched to Eliquis therapeutic dose at 10 mg which could be switched to 5 mg on 01/17. Prognosis remains guarded 01/08/2022 Patient is awake but drowsy, His blood pressure is improving but he still on pressors although is requiring less amount He has poor urine output but creatinine is around 1.1. His GFR is 66. He is going to receive 1 dose of Lasix 80 mg today. Also significant sodium bicarb and albumin infusion. He remains on Zosyn Anticoagulation with Eliquis January 09 2022: I assumed care of patient today. ICU: Tired. Lethargic. Patient drips include vasopressin and norepinephrine. the bedside. Getting 2 units of PRBC. Received IV albumin yesterday. Also received some IV diuretics. 2 L nasal cannula. Hemoglobin 5.5 today. On IV Zosyn. Wound VAC. On clear liquids. 01/10/2022: ICU: Remains in bed. Tired. Lethargic. Following simple commands. On IV levo fed. IV Zosyn. Discussed with at the bedside. Eating small amounts. Receive 2 units of blood yesterday. 01/11/2022: ICU: Tired lethargic. at the bedside. IV levo fed. Poor oral intake. Discussed with Dr. Dong from ID. Rule out right upper quadrant abscess versus infected hematoma. Computed tomography scan with contrast ordered. 01/12/2022: ICU: Drip planning a bit. But more awake. Answers simple questions. Poor oral intake. Discussed with the patient. Refuses PEG tube. present. Computed tomography scan abdomen canceled by Dr. Chow. BP is running on the lower side. Decrease Lopressor to 25 mg twice a day. Active Medications Hydrocodone Bitart/Acetaminophen (Hydrocodone/Apap 5-325mg 1 Each Tab) 1 each PO Q6HR PRN PRN Reason: Pain Last Admin: 01/08/22 13:23 Dose: 1 each Albuterol Sulfate (Albuterol Nebulized 2.5 Mg/3 Ml) 2.5 mg INHALATION Q2H PRN PRN Reason: AIRWAY PATENCY Last Admin: 12/31/21 21:36 Dose: 2.5 mg Albuterol/Ipratropium (Ipratropium-Albuterol 3 Ml Neb) 3 ml INHALATION RT-QID [facility] Last Admin: 01/12/22 10:59 Dose: Not Given Apixaban (Apixaban 5 Mg Tab) 10 mg PO BID [facility]; Protocol Stop: 01/14/22 21:01 Last Admin: 01/12/22 11:02 Dose: 10 mg Ascorbic Acid (Ascorbic Acid 500 Mg Tab) 1,000 mg PO DAILY@0800 [facility] Last Admin: 01/12/22 11:03 Dose: Not Given Cholecalciferol (Cholecalciferol 25 Mcg (1000 Iu) Tablet) 25 mcg PO DAILY [facility] Last Admin: 01/12/22 11:03 Dose: Not Given Dronabinol (Dronabinol 2.5 Mg Cap) 5 mg PO BID@1200,1700 [facility] Last Admin: 01/12/22 12:06 Dose: 5 mg Folic Acid (Folic Acid 1 Mg Tab) 1 mg PO DAILY [facility] Last Admin: 01/12/22 11:03 Dose: Not Given Furosemide (Furosemide 10 Mg/Ml 4 Ml Vial) 40 mg IV DAILY [facility] Hydromorphone HCl (Hydromorphone 0.5 Mg/0.5 Ml Syringe) 0.5 mg IVP Q4HR PRN PRN Reason: Pain Last Admin: 01/07/22 21:50 Dose: 0.5 mg Norepinephrine Bitartrate 32 (mg/ Sodium Chloride) 250 mls @ 20.518 mls/hr IV .[id number] [facility]; Protocol Last Titration: 01/12/22 11:35 Dose: 0.03 mcg/kg/min, 1.231 mls/hr Piperacillin Sod/Tazobactam (Sod 3.375 gm/ Sodium Chloride) 100 mls @ 25 mls/hr IVPB Q8H [facility]; Protocol Last Admin: 01/12/22 12:06 Dose: 25 mls/hr Sodium Chloride (Saline 0.9%) 1,000 mls @ 10 mls/hr IV .Q24H [facility] Last Admin: 01/12/22 12:07 Dose: 10 mls/hr Insulin Aspart (Insulin Aspart (Novolog) 100 Unit/Ml Vial) 0 unit SQ ACHS [facility]; Protocol Last Admin: 01/12/22 06:28 Dose: 1 unit Iopamidol (Iopamidol Contrast (Oral Use) Vial) 30 ml PO Q60M PRN PRN Reason: CT Scan Stop: 01/12/22 13:01 Iopamidol (Iopamidol Contrast (Oral Use) Vial) 30 ml PO ONCE PRN PRN Reason: CT Scan Stop: 01/12/22 13:24 Lidocaine HCl (Lidocaine 1% (10mg/Ml) For Iv Start) 0.1 ml INTRADERMA PER PROTOCOL PRN PRN Reason: IV Start Magnesium Oxide (Magnesium Oxide 400 Mg Tab) 400 mg PO TID [facility] Last Admin: 01/12/22 11:03 Dose: Not Given Metoclopramide HCl (Metoclopramide 5 Mg/Ml 2 Ml Vial) 10 mg IVP Q6HR [facility] Last Admin: 01/12/22 12:06 Dose: 10 mg Metoprolol Tartrate (Metoprolol Tartrate 50 Mg Tab) 50 mg PO BID@0800,1600 [facility] Last Admin: 01/12/22 10:11 Dose: Not Given Midodrine (Midodrine 5 Mg Tab) 10 mg PO AC-TID [facility] Last Admin: 01/12/22 12:06 Dose: 10 mg Miscellaneous Information (Phosphorus Replacement Protoco 1 Each Misc) 1 each MISCELLANE DAILY PRN; Protocol PRN Reason: Per Protocol Miscellaneous Information (Magnesium Replacement Protocol 1 Each Misc) 1 each MISCELLANE DAILY PRN; Protocol PRN Reason: Per Protocol Miscellaneous Information (Potassium Replacement Protocol 1 Each Misc) 1 each MISCELLANE DAILY PRN; Protocol PRN Reason: Per Protocol Multivitamins (Multivitamins, Thera 1 Each Tab) 1 each PO DAILY [facility] Last Admin: 01/12/22 11:03 Dose: Not Given Naloxone HCl (Naloxone 0.4 Mg/Ml 1 Ml Vial) 0.2 mg IV Q2M PRN PRN Reason: Opioid Reversal Ondansetron HCl (Ondansetron 4 Mg/2 Ml Vial) 4 mg IVP Q6HR PRN PRN Reason: Nausea And Vomiting Last Admin: 01/02/22 18:15 Dose: 4 mg Pantoprazole Sodium (Pantoprazole 40 Mg/10 Ml Vial) 40 mg IVP BID [facility] Last Admin: 01/12/22 11:02 Dose: 40 mg Tamsulosin HCl (Tamsulosin 0.4 Mg Cap.Er.24h) 0.4 mg PO DAILY [facility] Last Admin: 01/12/22 11:03 Dose: Not Given On examination: VITAL SIGNS: 87, 14, 106/61, 97% GENERAL APPEARANCE: Tired , answering simple questions HEENT: Normal external appearance of nose and ear. Oral cavity normal EYES: Pupils equal. Conjunctiva normal. NECK: JVD unable to assess. Mass not palpable. RESPIRATORY: Respiratory effort increased. Decreased breath sounds to auscultation. CARDIOVASCULAR: First and second sounds normal. Some edema. ABDOMEN: Soft. Liver and spleen not palpable. No tenderness. No mass palpable. PSYCHIATRY: Answering simple questions Muscular skeletal: Stage IV pressure ulcer left buttock. With wound VAC INVESTIGATIONS, reviewed in the clinical context: January 12: WBC 4.5 hemoglobin 9.9 potassium 3.6 creatinine 1.2 to albumin 2.0 January 11: White count 5.6 hemoglobin 10.3 sodium 132 potassium 3.5 creatinine 1.24 January 10: Obesity 4.9 hemoglobin 8.4 platelets 137 sodium 137 potassium 3.3 creatinine 1.2 January 09: White count 5.6 hemoglobin 5.5 platelets 179 sodium 128 potassium 3.2 creatinine 1.25 albumin 2.2 LIVER: ULTRASOUND:. PRIOR CHOLECYSTECTOMY. COMPLEX AREA SEEN IN THE GALLBLADDER FOSSA. CONTAINING A FEW BUBBLES. CT abdomen: Persistent heterogenous hyperdense area in the hepatic parenchyma adjacent to the gallbladder fossa. Limited 2-D echocardiogram: Home LV function. Ultrasound venous Doppler: Positive DVT right lower extremity. Assessment and plan: Severe hypotension and shock state requiring pressors, possible septic shock : Slow to respond -Acute metabolic encephalopathy, multifactorial: Some improvement -Complex liver collection adjacent to gallbladder fossa 2.7 cm suspicious for abscess versus other: -Hyponatremia Follow labs -Persistent nausea and vomiting secondary to ileus,: Better -Acute right leg DVT Eliquis -Severe anorexia: Slow to respond On Marinol. Encourage oral intake -Dehydration and hypovolemia, improving -Unstageable chronic decubitus ulcer - wound VAC placement -Anemia of chronic diseases -Acute drop in hemoglobin from 10-5.5. Patient is on eliquis. -Hyperphosphatemia Supplement phosphorus -Essential Hypertension Decrease Lopressor to 25 mg twice a day. Hyperlipidemia -COPD DuoNeb 4 times a day -Chronic congestive heart failure with ejection fraction 55-60% On Lasix -Sinus tachycardia -Restless leg syndrome -BPH Flomax -Anorexia Marinol. -Chronic medical debility -Moderate protein calorie malnutrition from poor oral intake Patient is diffuse neck 2 feeding DO NOT RESUSCITATE Given the significant drop in hemoglobin. And patient requiring 2 units of blood. Without a computed tomography scan of the abdomen with oral contrast. No IV contrast. Discussed with patient. Does not want feeding tube. Lopressor cutback to 25 twice a day for low blood pressure. Discussed with at the bedside. Total time spent today about 40 minutes with over 25 minutes of discussion.
--- NOTE | 2022-01-12 13:19 | XR ---
EXAMINATION TYPE: XR chest 1V confirm line [facility] DATE OF EXAM: 01/12/2022 COMPARISON: Chest x-ray 01/12/2022 HISTORY: Status post PICC line placement TECHNIQUE: Single frontal view of the chest is obtained. FINDINGS: There is been interval placement of a left-sided PICC line, distal tip is at the cavoatria l junction level. No other significant interval change. IMPRESSION: No evident complication status post PICC line placement.
--- NOTE | 2022-01-12 14:33 | IR ---
EXAMINATION TYPE: IR cvc insert >=5 years DATE OF EXAM: 01/12/2022 COMPARISON: NONE HISTORY: Infection, needs long-term intravenous access for antibiotics FINDINGS: Maximal barrier technique was utilized. Hand hygiene obtained with soap and water and alco hol-based hand rub. The skin overlying the left basilic vein was localized with ultrasound and noted to be compressible and patent by ultrasound. An ultrasound image was obtained [facility]. Sterile technique utilized with the ultrasound machine. The skin overlying was prepped an d draped and Lidocaine used for local anesthesia. A skin lala was made with a scalpel. Access was g ained to the vein under direct ultrasound guidance with a 21-gauge needle and a 0.018 inch wire was a dvanced. Access site was dilated with a peel-away sheath and the catheter tailored to length. Mariaa ter advanced centrally and a post procedure chest x-ray verified placement with tip at the superior v jules cava. Catheter was fixed to the skin and a sterile dressing placed. Hemostasis achieved and the catheter was aspirated and flushed with sterile saline. The patient remained in stable condition. IMPRESSION: STATUS POST ULTRASOUND GUIDED PICC LINE PLACEMENT, READY FOR USE. THIS PROCEDURE WAS PER FORMED BY THE UNDERSIGNED.
[2022-01-12] MEDS: IOPAMIDOL CONTRAST (ORAL USE) VIAL PO PRN ×2 (15:40→16:47)
[2022-01-12 16:15] LABS: Glucose,Whole Blood 181 mg/dL (70-110)
--- NOTE | 2022-01-12 17:29 | CT ---
EXAMINATION TYPE: CT abdomen pelvis wo con DATE OF EXAM: 01/12/2022 COMPARISON: 01/03/2022 HISTORY: Rule out intra-abdominal hematoma. Acute anemia CT DLP: 1910.4 mGycm Automated exposure control for dose reduction was used. Images obtained from the diaphragm to the floor of the pelvis with oral contrast only. There are moderate-sized bilateral pleural effusions. There is lower lobe pulmonary airspace infiltra te or atelectasis. There is small pericardial effusion. There is diffuse fatty infiltration of the li ellen. Gallbladder is intact. Spleen is intact. Stomach is intact. There is no pancreatic mass. The bile charlene ts are not dilated. There is no adrenal mass. Kidneys of normal size. No hydronephrosis. No retroperitoneal adenopathy. T here is no ascites or free air. No sign of bowel obstruction. No mesenteric edema. There are sigmoid diverticula. There is Smith catheter in the urinary bladder. No evidence of bladder mass. There is sm all amount of abdominal low density ascites fluid in the mid pelvis. The lumbar vertebrae have normal alignment. No compression fracture. Posterior elements are intact. Bony pelvis is intact. The hip tammy ints are intact. No evidence for fracture. There is extensive subcutaneous edema around the abdomen. There is some increased density in the righ t lateral wall of the lower rectosigmoid colon which is thought to be fecal material. IMPRESSION: There are moderate-sized bilateral pleural effusions which are significantly increased compared to re cent exam and could be chronic congestive heart failure. Abdominal ascites fluid in the pelvis also c onsistent with heart failure. Fatty infiltration of the liver. Ascites appears new compared to old ex am. Mild colonic diverticulosis. No diverticulitis. Subcutaneous edema significantly increased.
[2022-01-12] MEDS ORDERED: POTASSIUM CHLORIDE ER 20 MEQ TAB.ER PO SCH (18:00)
--- NOTE | 2022-01-12 19:45 | P.PN ---
Subjective Progress Note Date: 01/12/22 Factor X Assay is low, will watch coags and order vitamin K prn. He is weak no new events, still in care ICU Objective - Vital Signs Vital signs: Vital Signs Temp 97.9 F 01/12/22 16:00 Pulse 98 01/12/22 18:56 Resp 15 01/12/22 18:56 BP 109/85 01/12/22 18:00 Pulse Ox 97 01/12/22 18:00 FiO2 28 01/02/22 16:04 Intake & Output 01/12/22 01/12/22 01/13/22 06:59 18:59 06:59 Intake Total 469.910 3470.459 Output Total 2300 1405 Balance -2059.134 -129.541 Weight 81 kg 81 kg Intake: IV 143 299 0.9 NACL 110 230 pressure bags 33 69 Intake, IV Titration 77.866 101.459 Amount Norepinephrine 32 mg In 77.866 101.459 Sodium Chloride 0.9% 218 ml @ 0.5 MCG/KG/MIN 20. 518 mls/hr IV .[id number] [facility] Rx#:[id number] Oral 20 875 Output: Urine 2300 1405 Other: Voiding Method Indwelling Catheter Indwelling Catheter ABP, PAP, CO, CI - Last Documented Arterial Blood Pressure 130/71 - Exam - Constitutional General appearance: Present: mild distress, obese - EENT Eyes: Present: anicteric sclerae - Respiratory Respiratory: bilateral: diminished - Cardiovascular Details: tachy Abnormal Heart Sounds: Present: systolic murmur - Gastrointestinal General gastrointestinal: Present: normal bowel sounds, soft - Musculoskeletal Musculoskeletal: Absent: gait normal, generalized weakness, strength equal bilaterally, right sided weakness, left sided weakness - Psychiatric Psychiatric: Absent: A&O x's 3, appropriate affect, intact judgment & insight - Labs CBC & Chem 7: 01/12/22 04:45 01/12/22 11:31 Labs: Abnormal Lab Results - Last 24 Hours (Table) 01/11/22 01/11/22 01/11/22 Range/Units 20:24 21:26 22:33 RBC (4.30-5.90) m/uL Hgb (13.0-17.5) gm/dL Hct (39.0-53.0) % RDW (11.5-15.5) % Plt Count (150-450) k/uL Sodium (137-145) mmol/L Potassium 3.2 L (3.5-5.1) mmol/L Glucose (74-99) mg/dL POC Glucose (mg/dL) 133 H 132 H (70-110) mg/dL Calcium (8.4-10.2) mg/dL Alkaline Phosphatase (38-126) U/L Total Protein (6.3-8.2) g/dL Albumin (3.5-5.0) g/dL 01/12/22 01/12/22 01/12/22 Range/Units 04:45 04:45 06:10 RBC 3.41 L (4.30-5.90) m/uL Hgb 9.9 L (13.0-17.5) gm/dL Hct 29.5 L (39.0-53.0) % RDW 18.5 H (11.5-15.5) % Plt Count 126 L (150-450) k/uL Sodium 134 L (137-145) mmol/L Potassium (3.5-5.1) mmol/L Glucose 132 H (74-99) mg/dL POC Glucose (mg/dL) 140 H (70-110) mg/dL Calcium 7.3 L (8.4-10.2) mg/dL Alkaline Phosphatase 177 H (38-126) U/L Total Protein 4.0 L (6.3-8.2) g/dL Albumin 2.0 L (3.5-5.0) g/dL 01/12/22 01/12/22 Range/Units 11:32 16:14 RBC (4.30-5.90) m/uL Hgb (13.0-17.5) gm/dL Hct (39.0-53.0) % RDW (11.5-15.5) % Plt Count (150-450) k/uL Sodium (137-145) mmol/L Potassium (3.5-5.1) mmol/L Glucose (74-99) mg/dL POC Glucose (mg/dL) 138 H 181 H (70-110) mg/dL Calcium (8.4-10.2) mg/dL Alkaline Phosphatase (38-126) U/L Total Protein (6.3-8.2) g/dL Albumin (3.5-5.0) g/dL Microbiology - Last 24 Hours (Table) 01/06/22 02:25 Blood Culture - Final Blood No Growth after 144 hours 01/05/22 18:30 Blood Culture - Final Blood No Growth after 144 hours Assessment and Plan Plan: Assessment and Plan Assessment: 1- Failure to thrive 2- RLE femoral vein DVT 3- Bleeding at lovenox injection site 4- Septic shock 5- Acute drop in Hemoglobin Plan: Mr. Marquez is a 61 yo male with hypoxic respiratory failure in 06/2021 and overall worsening condition since then, with poor PS and bedbound, here for FTT. Course complicated by RLE pain, doppler positive for RLE femoral vein DVT. He was anticoagulated with lovenox for his provoked DVT due to immobility and recurrent hospitalizations, however had bleeding at lovenox injection site after his dose around 01/04-. Hgb remained stable and no further bleeding noted and AC resumed. Switched to eliquis 10mg bid on 01/07/22. Subsequently course complicated by septic shock, requiring ICU transfer. Hgb initially stable around 9's, however today decreased to 5.5. No signs of bleeding and he did receive significant amount of fluid over the past 48 hours. COnitnue transfusing to maintain Hgb >7. Please monitor hemoglobin very closely, Daily. Hold Eliquis if recurrent bleeding or drop in hemoglobin, no evidence of recurrent bleed since 01/09/22 If his hemoglobin continues to decrease or does not respond appropriately to that she is of blood that he is receiving today, would continue to hold anticoagulation consider IVC filter placement. CT AP cancelled and agree with this as Hgb remains stable.
[2022-01-12 20:39] LABS: Glucose,Whole Blood 200 mg/dL (70-110)
[2022-01-12] MEDS: METOPROLOL TARTRATE 25 MG TAB PO SCH (22:46)
[2022-01-13] MEDS: NOREPINEPHRINE 32 MG in SODIUM CHLORIDE 0.9% 218 ML IV SCH ×2 (02:49→19:09)
[2022-01-13] MEDS: PIPERACILLIN-TAZOBACTAM 3.375 GM in SODIUM CHLORIDE 0.9% 100 ML IVPB SCH ×4 (03:08→23:58)
[2022-01-13 06:15] LABS: Glucose,Whole Blood 91 mg/dL (70-110)
[2022-01-13] MEDS: INSULIN ASPART (NovoLOG) 100 UNIT/ML VIAL SQ SCH ×4 (06:32→21:05)
[2022-01-13] MEDS: MIDODRINE 5 MG TAB PO SCH ×3 (06:32→17:41)
--- NOTE | 2022-01-13 06:44 | P.PN ---
Subjective Progress Note Date: 01/10/22 Principal diagnosis: Possible abscess Patient is a 61-year-old male with multiple comorbidities including COPD diabetes hypertension in this patient who did have open cholecystectomy for gangrenous cholecystitis on 09/17/2021, subsequently admitted to the hospital for not eating and drinking and placement of a PEG tube patient also have a CT abdominal pelvis as well as ultrasound suspicious for fluid collection in the gallbladder fossa concerning for seroma versus abscess. On today's evaluation that is 01/10/2022, the patient remains to be afebrile, the patient is requiring less pressor support per the nursing staff, the patient is breathing comfortably on nasal cannula oxygen, the patient denies any chest pain shortness of breath did have occasional dry cough, the patient denies abdominal pain and no diarrhea has been reported by the nursing staff Objective - Vital Signs Vital signs: Vital Signs Temp 96.2 F L 01/10/22 11:30 Pulse 90 01/10/22 14:00 Resp 16 01/10/22 14:00 BP 101/68 01/10/22 13:30 Pulse Ox 96 01/10/22 14:00 FiO2 28 01/02/22 16:04 Intake & Output 01/09/22 01/10/22 01/10/22 18:59 06:59 18:59 Intake Total 1070.221 734.01 854.282 Output Total 925 1885 640 Balance 145.221 -1150.99 214.282 Weight 119.6 kg Intake: IV 286 198 200 0.9 NACL 220 120 70 pressure bags 66 78 30 zosyn 100 Intake, IV Titration 164.221 26.01 4.282 Amount Norepinephrine 32 mg In 23.308 4.282 Sodium Chloride 0.9% 218 ml @ 0.5 MCG/KG/MIN 20. 518 mls/hr IV .[id number] [facility] Rx#:[id number] Sodium Chloride 0.9% 150 140.913 26.01 ml @ 0.03 UNITS/MIN 4.59 mls/hr IV .Q24H [facility] with Vasopressin 60 unit Rx#: [id number] Oral 200 650 Blood Product 620 310 Rc As-1 Unit 310 [id number] Rc As-1 Unit 0 310 [id number] Output: Urine 925 1885 640 Other: Voiding Method Indwelling Catheter Indwelling Catheter Indwelling Catheter # Bowel Movements 1 ABP, PAP, CO, CI - Last Documented Arterial Blood Pressure 90/57 - Exam GENERAL DESCRIPTION: Middle-aged male lying in bed in no distress RESPIRATORY SYSTEM: Unlabored breathing , decreased breath sounds at bases HEART: S1 S2 regular rate and rhythm , ABDOMEN: Soft , no tenderness EXTREMITIES: One plus edema feet - Labs CBC & Chem 7: 01/12/22 04:45 01/12/22 11:31 Labs: Abnormal Lab Results - Last 24 Hours (Table) 01/09/22 01/09/22 01/09/22 Range/Units 05:30 16:26 19:35 RBC (4.30-5.90) m/uL Hgb (13.0-17.5) gm/dL Hct (39.0-53.0) % RDW (11.5-15.5) % Plt Count (150-450) k/uL Sodium (137-145) mmol/L Potassium 3.2 L (3.5-5.1) mmol/L Glucose (74-99) mg/dL POC Glucose (mg/dL) 164 H (70-110) mg/dL Calcium (8.4-10.2) mg/dL Crossmatch See Detail 01/09/22 01/09/22 01/10/22 Range/Units 19:35 20:35 04:00 RBC 2.83 L 2.97 L (4.30-5.90) m/uL Hgb 8.2 L D 8.4 L (13.0-17.5) gm/dL Hct 24.7 L 25.7 L (39.0-53.0) % RDW 17.8 H 18.0 H (11.5-15.5) % Plt Count 140 L 137 L (150-450) k/uL Sodium (137-145) mmol/L Potassium (3.5-5.1) mmol/L Glucose (74-99) mg/dL POC Glucose (mg/dL) 211 H (70-110) mg/dL Calcium (8.4-10.2) mg/dL Crossmatch 01/10/22 01/10/22 Range/Units 04:00 11:37 RBC (4.30-5.90) m/uL Hgb (13.0-17.5) gm/dL Hct (39.0-53.0) % RDW (11.5-15.5) % Plt Count (150-450) k/uL Sodium 127 L (137-145) mmol/L Potassium 3.3 L (3.5-5.1) mmol/L Glucose 108 H (74-99) mg/dL POC Glucose (mg/dL) 143 H (70-110) mg/dL Calcium 7.0 L (8.4-10.2) mg/dL Crossmatch Microbiology - Last 24 Hours (Table) 01/06/22 02:25 Blood Culture - Preliminary Blood No Growth after 96 hours 01/05/22 18:30 Blood Culture - Preliminary Blood No Growth after 96 hours Assessment and Plan (1) Abnormal abdominal CT scan Current Visit: Yes Status: Acute Code(s): R93.5 - ABN FINDINGS ON DX IMAGING OF ABD REGIONS, INC RETROPERITON SNOMED Code(s): 69707431972112985 Plan: 1patient with abnormal CT as well as ultrasound of the liver gallbladder area concerning for possible fluid collection in the gallbladder. In this patient who did have a history of gangrenous cholecystitis s/p cholecystectomy on 09/17/2021 with concern for possible postop seroma versus abscess, patient was clinically not behaving as an abscess with no fever or elevated white count. 2detailed discussion with IR on 01/04/2022 and with high risk for any percutaneous intervention hence the right upper quadrant fluid was not drained 3 patient subsequently did have significant hypotension and has been transferred to ICU culture has been obtained which are negative so for 4-patient noticed to have significant drop in his hemoglobin with question of possible bleed may benefit from repeat CT abdomen and pelvis, this was discussed with primary team, patient to continue with the Zosyn and monitor clinical course closely Time with Patient: Less than 30
--- NOTE | 2022-01-13 06:45 | P.PN ---
Subjective Progress Note Date: 01/11/22 Principal diagnosis: Possible abscess Patient is a 61-year-old male with multiple comorbidities including COPD diabetes hypertension in this patient who did have open cholecystectomy for gangrenous cholecystitis on 09/17/2021, subsequently admitted to the hospital for not eating and drinking and placement of a PEG tube patient also have a CT abdominal pelvis as well as ultrasound suspicious for fluid collection in the gallbladder fossa concerning for seroma versus abscess. On today's evaluation that is 01/11/2022, the patient continues to be afebrile, the patient is hemodynamically stable and requiring less pressor support per the nursing staff, the patient is breathing comfortably on nasal cannula oxygen, the patient denies any chest pain shortness of breath did have occasional cough but no sputum production, the patient denies abdominal pain and no diarrhea has been reported by the nursing staff Objective - Vital Signs Vital signs: Vital Signs Temp 97.6 F 01/11/22 09:00 Pulse 105 H 01/11/22 11:00 Resp 21 01/11/22 11:00 BP 101/68 01/10/22 13:30 Pulse Ox 99 01/11/22 11:00 FiO2 28 01/02/22 16:04 Intake & Output 01/10/22 01/11/22 01/11/22 18:59 06:59 18:59 Intake Total 1246.889 386.234 233.495 Output Total 1140 2065 750 Balance 106.889 -1678.766 -516.505 Weight 119.6 kg 118.8 kg Intake: IV 252 331 90 0.9 NACL 110 120 50 pressure bags 42 36 15 zosyn 100 175 25 Intake, IV Titration 244.889 55.234 143.495 Amount Norepinephrine 32 mg In 44.889 55.234 43.495 Sodium Chloride 0.9% 218 ml @ 0.5 MCG/KG/MIN 20. 518 mls/hr IV .[id number] [facility] Rx#:[id number] Potassium Chloride 20 meq 200 In Water For Injection 1 100ml.bag @ 50 mls/hr IVPB Q2H [facility] Rx#: [id number] Potassium Chloride 20 meq 100 In Water For Injection 1 100ml.bag @ 50 mls/hr IVPB Q2H [facility] Rx#: [id number] Oral 750 Output: Urine 1140 2065 750 Other: Voiding Method Indwelling Catheter Indwelling Catheter Indwelling Catheter ABP, PAP, CO, CI - Last Documented Arterial Blood Pressure 121/62 - Exam GENERAL DESCRIPTION: Middle-aged male lying in bed in no distress RESPIRATORY SYSTEM: Unlabored breathing , decreased breath sounds at bases HEART: S1 S2 regular rate and rhythm , ABDOMEN: Soft , no tenderness EXTREMITIES: One plus edema feet - Labs CBC & Chem 7: 01/12/22 04:45 01/12/22 11:31 Labs: Abnormal Lab Results - Last 24 Hours (Table) 01/10/22 01/10/22 01/10/22 Range/Units 11:37 14:05 16:33 RBC (4.30-5.90) m/uL Hgb (13.0-17.5) gm/dL Hct (39.0-53.0) % RDW (11.5-15.5) % Sodium (137-145) mmol/L Potassium 3.4 L (3.5-5.1) mmol/L POC Glucose (mg/dL) 143 H 175 H (70-110) mg/dL Calcium (8.4-10.2) mg/dL Phosphorus (2.5-4.5) mg/dL Alkaline Phosphatase (38-126) U/L Total Protein (6.3-8.2) g/dL Albumin (3.5-5.0) g/dL 01/10/22 01/11/22 01/11/22 Range/Units 20:43 05:40 05:40 RBC 3.52 L (4.30-5.90) m/uL Hgb 10.3 L (13.0-17.5) gm/dL Hct 30.9 L (39.0-53.0) % RDW 18.5 H (11.5-15.5) % Sodium 132 L (137-145) mmol/L Potassium (3.5-5.1) mmol/L POC Glucose (mg/dL) 191 H (70-110) mg/dL Calcium 7.2 L (8.4-10.2) mg/dL Phosphorus 1.7 L (2.5-4.5) mg/dL Alkaline Phosphatase 173 H (38-126) U/L Total Protein 4.2 L (6.3-8.2) g/dL Albumin 2.2 L (3.5-5.0) g/dL Microbiology - Last 24 Hours (Table) 01/06/22 02:25 Blood Culture - Preliminary Blood No Growth after 120 hours 01/05/22 18:30 Blood Culture - Preliminary Blood No Growth after 120 hours Assessment and Plan (1) Abnormal abdominal CT scan Current Visit: Yes Status: Acute Code(s): R93.5 - ABN FINDINGS ON DX IMAGING OF ABD REGIONS, INC RETROPERITON SNOMED Code(s): 68004762473001201 Plan: 1patient with abnormal CT as well as ultrasound of the liver gallbladder area concerning for possible fluid collection in the gallbladder. In this patient who did have a history of gangrenous cholecystitis s/p cholecystectomy on 09/17/2021 with concern for possible postop seroma versus abscess, patient was clinically not behaving as an abscess with no fever or elevated white count. 2detailed discussion with IR on 01/04/2022 and with high risk for any percutaneous intervention hence the right upper quadrant fluid was not drained 3 patient subsequently did have significant hypotension and has been transferred to ICU culture has been obtained which are negative so for 4-patient noticed to have significant drop in his hemoglobin with question of possible intra-abdominal/right upper quadrant bleed may benefit from repeat CT abdomen and pelvis, this was discussed with primary team, which was ordered and subsequently canceled patient to continue with the empiric Zosyn and monitor clinical course closely Time with Patient: Less than 30
--- NOTE | 2022-01-13 06:48 | P.PN ---
Subjective Progress Note Date: 01/12/22 Principal diagnosis: Possible abscess Patient is a 61-year-old male with multiple comorbidities including COPD diabetes hypertension in this patient who did have open cholecystectomy for gangrenous cholecystitis on 09/17/2021, subsequently admitted to the hospital for not eating and drinking and placement of a PEG tube patient also have a CT abdominal pelvis as well as ultrasound suspicious for fluid collection in the gallbladder fossa concerning for seroma versus abscess. On today's evaluation that is 01/12/2022, the patient denies any fever or any chills, the patient is hemodynamically stable and off the pressor support per the nursing staff, the patient is breathing comfortably on nasal cannula oxygen, the patient denies any chest pain shortness of breath , the patient did have did have occasional dry cough , the patient denies abdominal pain and no diarrhea has been reported by the nursing staff and denies pain to the sacral wound Objective - Vital Signs Vital signs: Vital Signs Temp 97.7 F 01/12/22 08:00 Pulse 87 01/12/22 11:00 Resp 10 L 01/12/22 11:00 BP 101/68 01/12/22 07:00 Pulse Ox 97 01/12/22 11:00 FiO2 28 01/02/22 16:04 Intake & Output 01/11/22 01/12/22 01/12/22 18:59 06:59 18:59 Intake Total 716.452 240.866 515.391 Output Total 2850 2300 730 Balance -2133.548 -2059.134 -214.609 Weight 81 kg 81 kg Intake: IV 194 143 143 0.9 NACL 130 110 110 pressure bags 39 33 33 zosyn 25 Intake, IV Titration 522.452 77.866 97.391 Amount Norepinephrine 32 mg In 72.452 77.866 97.391 Sodium Chloride 0.9% 218 ml @ 0.5 MCG/KG/MIN 20. 518 mls/hr IV .[id number] [facility] Rx#:[id number] Potassium Chloride 20 meq 200 In Water For Injection 1 100ml.bag @ 50 mls/hr IVPB Q2H [facility] Rx#: [id number] Sodium Phosphate 10 mmol 250 In Sodium Chloride 0.9% 250 ml @ 125 mls/hr IV Q2H [facility] Rx#:[id number] Oral 20 275 Output: Urine 2850 2300 730 Other: Voiding Method Indwelling Catheter Indwelling Catheter Indwelling Catheter # Bowel Movements 1 ABP, PAP, CO, CI - Last Documented Arterial Blood Pressure 106/61 - Exam GENERAL DESCRIPTION: Middle-aged male lying in bed in no distress RESPIRATORY SYSTEM: Unlabored breathing , decreased breath sounds at bases HEART: S1 S2 regular rate and rhythm , ABDOMEN: Soft , no tenderness EXTREMITIES: One plus edema feet Examination of the sacral wound which is deep did have undermining however the wound base looks clean with no slough tissue there was some dried blood some surrounding deep tissue injury but no cellulitis - Labs CBC & Chem 7: 01/12/22 04:45 01/12/22 11:31 Labs: Abnormal Lab Results - Last 24 Hours (Table) 01/11/22 01/11/22 01/11/22 Range/Units 16:48 20:24 21:26 RBC (4.30-5.90) m/uL Hgb (13.0-17.5) gm/dL Hct (39.0-53.0) % RDW (11.5-15.5) % Plt Count (150-450) k/uL Sodium (137-145) mmol/L Potassium (3.5-5.1) mmol/L Glucose (74-99) mg/dL POC Glucose (mg/dL) 119 H 133 H 132 H (70-110) mg/dL Calcium (8.4-10.2) mg/dL Alkaline Phosphatase (38-126) U/L Total Protein (6.3-8.2) g/dL Albumin (3.5-5.0) g/dL 01/11/22 01/12/22 01/12/22 Range/Units 22:33 04:45 04:45 RBC 3.41 L (4.30-5.90) m/uL Hgb 9.9 L (13.0-17.5) gm/dL Hct 29.5 L (39.0-53.0) % RDW 18.5 H (11.5-15.5) % Plt Count 126 L (150-450) k/uL Sodium 134 L (137-145) mmol/L Potassium 3.2 L (3.5-5.1) mmol/L Glucose 132 H (74-99) mg/dL POC Glucose (mg/dL) (70-110) mg/dL Calcium 7.3 L (8.4-10.2) mg/dL Alkaline Phosphatase 177 H (38-126) U/L Total Protein 4.0 L (6.3-8.2) g/dL Albumin 2.0 L (3.5-5.0) g/dL 01/12/22 01/12/22 Range/Units 06:10 11:32 RBC (4.30-5.90) m/uL Hgb (13.0-17.5) gm/dL Hct (39.0-53.0) % RDW (11.5-15.5) % Plt Count (150-450) k/uL Sodium (137-145) mmol/L Potassium (3.5-5.1) mmol/L Glucose (74-99) mg/dL POC Glucose (mg/dL) 140 H 138 H (70-110) mg/dL Calcium (8.4-10.2) mg/dL Alkaline Phosphatase (38-126) U/L Total Protein (6.3-8.2) g/dL Albumin (3.5-5.0) g/dL Microbiology - Last 24 Hours (Table) 01/06/22 02:25 Blood Culture - Final Blood No Growth after 144 hours 01/05/22 18:30 Blood Culture - Final Blood No Growth after 144 hours Assessment and Plan (1) Abnormal abdominal CT scan Current Visit: Yes Status: Acute Code(s): R93.5 - ABN FINDINGS ON DX IMAGING OF ABD REGIONS, INC RETROPERITON SNOMED Code(s): 35189298620428009 Plan: 1patient with abnormal CT as well as ultrasound of the liver gallbladder area concerning for possible fluid collection in the gallbladder. In this patient who did have a history of gangrenous cholecystitis s/p cholecystectomy on 09/17/2021 with concern for possible postop seroma versus abscess, patient was clinically not behaving as an abscess with no fever or elevated white count. 2detailed discussion with IR on 01/04/2022 and with high risk for any percutaneous intervention hence the right upper quadrant fluid was not drained 3 patient subsequently did have significant hypotension and has been transferred to ICU culture has been obtained which are negative so for 4-patient noticed to have significant drop in his hemoglobin with question of possible intra-abdominal/right upper quadrant bleed may benefit from repeat CT abdomen and pelvis, patient sacral wound does not looking infected as there was no slough tissue or purulent drainage, no surrounding redness continue with the empiric Zosyn Time with Patient: Less than 30
[2022-01-13 07:13] LABS: Anisocytosis Slight; Basophils % (A) 0 %; Eosinophils # (A) 0.1 k/uL (0-0.7); Eosinophils % (A) 3 %; HCT 31.8 % (39.0-53.0); HGB 10.4 gm/dL (13.0-17.5); Hypochromasia Slight; Lymphocytes # (A) 0.7 k/uL (1.0-4.8); Lymphocytes % (A) 20 %; MCH 29.2 pg (25.0-35.0); MCHC 32.6 g/dL (31.0-37.0); MCV 89.3 fL (80.0-100.0); Mean Platelet Volume 8.7; Monocytes # (A) 0.2 k/uL (0-1.0); Monocytes % (A) 5 %; Neutrophils # (A) 2.4 k/uL (1.3-7.7); Neutrophils % (A) 69 %; Poikilocytosis Slight; RBC 3.55 m/uL (4.30-5.90); RDW 18.9 % (11.5-15.5); WBC 3.5 k/uL (3.8-10.6)
[2022-01-13 07:16] LABS: Platelet Count 95 k/uL (150-450)
[2022-01-13] MEDS: IPRATROPIUM-ALBUTEROL 3 ML NEB INHALATION SCH ×4 (07:28→19:55)
--- NOTE | 2022-01-13 07:50 | XR ---
EXAMINATION TYPE: XR chest 1V portable DATE OF EXAM: 01/13/2022 COMPARISON: 01/12/2022 INDICATION: Dyspnea TECHNIQUE: Single frontal view of the chest is obtained. FINDINGS: The heart size is normal. The pulmonary vasculature is normal. The lungs are clear. PICC line enters on the left superior vena cava region. IMPRESSION: 1. No significant interval changes.
[2022-01-13] MEDS ORDERED: FUROSEMIDE 10 MG/ML 4 ML VIAL IV SCH (09:00)
--- NOTE | 2022-01-13 09:28 | P.PN ---
Subjective Patient is seen in follow-up for hyponatremia and acute kidney injury. Off vasopressors. On IV Lasix. Nonoliguric. Sodium level 134 today. Hemoglobin improved post blood transfusion. No active bleeding per the nurse. On dysphagia 3 chopped diet. present at bedside. Vital signs are stable. General: Awake. No acute distress. HEENT: Head exam is unremarkable. On nasal cannula. LUNGS: Breath sounds decreased. HEART: Regular rate and rhythm. ABDOMEN: Soft, no distention. EXTREMITITES: 1+ edema. Objective - Vital Signs Vital signs: Vital Signs Temp 97.5 F L 01/13/22 04:00 Pulse 92 01/13/22 07:43 Resp 23 01/13/22 07:00 BP 98/63 01/13/22 07:00 Pulse Ox 96 01/13/22 07:00 FiO2 28 01/02/22 16:04 Intake & Output 01/12/22 01/13/22 01/13/22 18:59 06:59 18:59 Intake Total 1275.459 310 20 Output Total 1405 845 50 Balance -129.541 -535 -30 Weight 81 kg Intake: IV 299 220 20 0.9 NACL 230 220 20 pressure bags 69 Intake, IV Titration 101.459 Amount Norepinephrine 32 mg In 101.459 Sodium Chloride 0.9% 218 ml @ 0.5 MCG/KG/MIN 20. 518 mls/hr IV .[id number] [facility] Rx#:[id number] Oral 875 90 Output: Urine 1405 845 50 Other: Voiding Method Indwelling Catheter Indwelling Catheter ABP, PAP, CO, CI - Last Documented Arterial Blood Pressure 130/71 - Labs CBC & Chem 7: 01/13/22 06:55 01/12/22 11:31 Labs: Abnormal Lab Results - Last 24 Hours (Table) 01/12/22 01/12/22 01/12/22 Range/Units 11:32 16:14 20:38 WBC (3.8-10.6) k/uL RBC (4.30-5.90) m/uL Hgb (13.0-17.5) gm/dL Hct (39.0-53.0) % RDW (11.5-15.5) % Plt Count (150-450) k/uL Lymphocytes # (1.0-4.8) k/uL POC Glucose (mg/dL) 138 H 181 H 200 H (70-110) mg/dL 01/13/22 Range/Units 06:55 WBC 3.5 L (3.8-10.6) k/uL RBC 3.55 L (4.30-5.90) m/uL Hgb 10.4 L (13.0-17.5) gm/dL Hct 31.8 L (39.0-53.0) % RDW 18.9 H (11.5-15.5) % Plt Count 95 L (150-450) k/uL Lymphocytes # 0.7 L (1.0-4.8) k/uL POC Glucose (mg/dL) (70-110) mg/dL Assessment and Plan Plan: Assessment: 1. Acute kidney injury secondary to ATN secondary to hypotension/shock. Creatinine fairly stable at 1.22 as of yesterday. Nonoliguric. 2. Hyponatremia. Hypervolemic. Improved. 3. Shock. Possibly septic possible source gallbladder versus decubitus ulcer. On antibiotics. Off vasopressors. 4. Lower extremity edema. Improving with diuresis. 5. Metabolic acidosis secondary to acute kidney injury status post bicarb drip. Improved. On oral bicarbonate. 6. Hypokalemia from diuresis. Being replaced. 7. Acute blood loss anemia status post blood transfusion 01/09/2022. Stool for occult blood negative. C. diff negative. 8. Hypophosphatemia from poor intake. Replaced. Better. Plan: Status post IV albumin given 01/08/2022. Maintain IV Lasix 40 mg twice daily. Encouraged oral intake. Status post [place] 01/10/2022. Cortisol level not low. Repeat labs in the morning.
[2022-01-13] MEDS: METOPROLOL TARTRATE 25 MG TAB PO SCH ×2 (09:38→15:06)
[2022-01-13] MEDS: CHOLECALCIFEROL 25 MCG (1000 IU) TABLET PO SCH (09:43)
[2022-01-13] MEDS: MULTIVITAMINS, THERA 1 EACH TAB PO SCH (09:43)
[2022-01-13] MEDS: ASCORBIC ACID 500 MG TAB PO SCH (09:44)
[2022-01-13] MEDS: MAGNESIUM OXIDE 400 MG TAB PO SCH ×3 (09:44→21:05)
[2022-01-13] MEDS: FOLIC ACID 1 MG TAB PO SCH (09:44)
[2022-01-13] MEDS: APIXABAN 5 MG TAB PO SCH ×2 (09:44→21:05)
[2022-01-13] MEDS: TAMSULOSIN 0.4 MG CAP.ER.24H PO SCH (09:44)
[2022-01-13] MEDS: PANTOPRAZOLE 40 MG/10 ML VIAL IVP SCH ×2 (09:45→21:05)
[2022-01-13] MEDS: FUROSEMIDE 10 MG/ML 4 ML VIAL IV SCH ×2 (09:51→21:05)
[2022-01-13 11:30] LABS: Glucose,Whole Blood 120 mg/dL (70-110)
--- NOTE | 2022-01-13 12:02 | P.PN ---
Subjective Progress Note Date: 01/13/22 Principal diagnosis: Septic shock, likely source is stage IV decubitus ulcer 01/10/2022, I'm seeing the patient for a follow-up. Clinically, the patient's condition is the same. Still lethargic and extremely weak and the patient is having significant amount of third spacing and edema in all 4 extremities. Yesterday, the patient received a total of 2 units of packed RBC with a hemoglobin of 5.7 the patient responded nicely and the hemoglobin today is up to 8.4. He is not showing any signs of bleeding. Eliquis was restarted. He is on Lasix 40 mg IV every 12 hours. The patient's urine output is gradually improving and the patient is in a negative fluid balance is in his had a hours a negative fluid balance of around 1.2 L at least till now. The patient has a weaned off the pressors. Norepinephrine is running at 0.08 mcg/kg per minute and the vasopressin is at the physiologic dose and this can be essentially discontinued for now. Urine output is excellent for now. The patient's BUN is a 13 with a creatinine of 1.2 and the sodium level of 137. He is currently on 2 L about 2 by nasal cannula. His white cell count of 4.9. Hemoglobin is at 8.4. Lethargic. Weak. Oral intake is quite diminished at this point in time. No major change clinically. Hemodynamically improved as the patient is nearly think the pressors and the patient is being diuresis for now. Reevaluated today on 01/11/22, patient remains in the ICU, presently on 2 L nasal cannula with O2 sats of 98%. Patient is still requiring norepinephrine at 0.15 mcg/kg/m patient remains on Lasix 40 mg IV push every 12 hours, and he had a - 1.57 L over the last 24 hours chest x-ray continues to show evidence of mild interstitial edema, his IV fluid is at 10 mL per hour. Today we recommended that we monitor the CVP and continue the Lasix. Patient seems to be frail and chronically ill. Not in respiratory distress. His WBC count is 5.6 hemoglobin 10.3 electrolytes are normal renal profile is normal, liver profile is unremarkable and albumin is low at 2.2 chest x-ray is showing improvement in his interstitial edema Patient was reevaluated today on 01/12/2022, remains in the ICU, remains hypotensive requiring small dose of norepinephrine at 0.08 mcg/kg/m patient is on IV fluid at KVO remains on diuretics remains on antibiotics he is alert, oriented 3, he is on room air with O2 sats of 99%. He is very weak and bed bound for the last few months. Patient was supposed to have CT of the abdomen, however I did not feel the need or and urgency for a CT of the abdomen since his clinical findings are benign, his abdomen is nonsurgical and I went ahead and canceled the CT of the abdomen which is scheduled to be done today. Patient did not receive a PEG tube mostly because he is eating on his own, but the amount seems to be very small. WBC count today is 4.5, global is 9.9 electrolytes are normal renal profile showed a creatinine 1.22. 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 Reevaluated today on 01/13/22, patient remains in the ICU, steadily improving, and he is off norepinephrine at present. Patient is not requiring any hemodynamic support. He is on room air, and does not seem to be in any distress. He is however generally weak. And remains nonoliguric. Responds well to Lasix were given. Hemoglobin is holding at 10.4, it was 9.9 yesterday. Patient received a total of 3 units of packed RBCs since his admission. WBC 3.5 hemoglobin is 10.4. Last BUN yesterday was 14 creatinine 1.2 to which is basically the same compared to the last few days. Chest x-ray today showed no major change, continues to have bilateral haziness and pulmonary vascular congestion, nonetheless the patient has no evidence of any pulmonary symptoms and he is on room air Objective - Vital Signs Vital signs: Vital Signs Temp 97.5 F L 01/13/22 08:00 Pulse 97 01/13/22 10:00 Resp 16 01/13/22 10:00 BP 90/69 01/13/22 10:00 Pulse Ox 98 01/13/22 10:00 FiO2 28 01/02/22 16:04 Intake & Output 01/12/22 01/13/22 01/13/22 18:59 06:59 18:59 Intake Total 1275.459 310 80 Output Total 1405 845 150 Balance -129.541 -535 -70 Weight 81 kg Intake: IV 299 220 80 0.9 NACL 230 220 80 pressure bags 69 Intake, IV Titration 101.459 Amount Norepinephrine 32 mg In 101.459 Sodium Chloride 0.9% 218 ml @ 0.5 MCG/KG/MIN 20. 518 mls/hr IV .[id number] [facility] Rx#:[id number] Oral 875 90 Output: Urine 1405 845 150 Other: Voiding Method Indwelling Catheter Indwelling Catheter ABP, PAP, CO, CI - Last Documented Arterial Blood Pressure 130/71 - Exam GENERAL APPEARANCE: Revealed a 61-year-old white male, on room air, in no distress Head: Atraumatic, normocephalic. HEENT: PERRLA, EOMI, nonicteric. His left subclavian line has been removed and the patient has a PICC line in place EYES: Pupils equal. Conjunctiva normal. NECK: No JVD no neck masses no stridor RESPIRATORY: Diminished breath sounds at the bases no rhonchi no wheezes CARDIOVASCULAR: Distant S1 and S2, no S3 gallop, no murmur. ABDOMEN: Soft nontender no megaly no rebound no guarding.. PSYCHIATRY: Depressed mood, blunt affect, appropriate mental status. Muscular skeletal: Stage IV pressure ulcer left buttock. With wound VAC - Labs CBC & Chem 7: 01/13/22 06:55 01/12/22 11:31 Labs: Abnormal Lab Results - Last 24 Hours (Table) 01/12/22 01/12/22 01/13/22 Range/Units 16:14 20:38 06:55 WBC 3.5 L (3.8-10.6) k/uL RBC 3.55 L (4.30-5.90) m/uL Hgb 10.4 L (13.0-17.5) gm/dL Hct 31.8 L (39.0-53.0) % RDW 18.9 H (11.5-15.5) % Plt Count 95 L (150-450) k/uL Lymphocytes # 0.7 L (1.0-4.8) k/uL POC Glucose (mg/dL) 181 H 200 H (70-110) mg/dL 01/13/22 Range/Units 11:29 WBC (3.8-10.6) k/uL RBC (4.30-5.90) m/uL Hgb (13.0-17.5) gm/dL Hct (39.0-53.0) % RDW (11.5-15.5) % Plt Count (150-450) k/uL Lymphocytes # (1.0-4.8) k/uL POC Glucose (mg/dL) 120 H (70-110) mg/dL Assessment and Plan Assessment: Impression: Septic shock, most likely source is stage IV decubitus ulcer Acute metabolic encephalopathy secondary to sepsis History of gangrenous cholecystitis requiring surgery History of DVT, on anticoagulation therapy Stage IV decubitus ulcer with wound VAC. Hypoalbuminemia. Non-anion gap metabolic acidosis. Improved. Type 2 diabetes. Chronic bronchial asthma doesn't list stable. Obstructive sleep apnea syndrome. Benign essential hypertension. Dyslipidemia. Medical debility. Patient has been bedbound for a few months. Chronic anemia Recommendation: Patient is now off norepinephrine and I plan to transfer the patient to a regular medical floor Continue oral feeding/Nutritional support. However will ask dietitian to evaluate for possible TPN via PICC line since the patient is not eating much. And he is not meeting his caloric requirements GI prophylaxis. Continue anticoagulation therapy for DVT. Continue antibiotics as per infectious disease on the CODE STATUS/DO NOT RESUSCITATE. We will continue to follow. Again I plan to transfer the patient out of the ICU today and eventually have administrator social welfare evaluate, physical therapy to evaluate, patient will definitely need ECF placement. Time with Patient: Less than 30
--- NOTE | 2022-01-13 12:24 | P.PN ---
Progress Note - Text Progress Note Date: 01/13/22 Hospital course: this is a pleasant 61 yo M with past medical history of COPD, Diabetes Mellitus, Deep Vein Thrombosis, Hyperlipidemia, Hypertension, Sleep Apnea/CPAP/BIPAP He was in the hospital on 09/2021 for severe hypertension from decreased oral intake, acute metabolic encephalopathy, chronic congestive heart failure, diastolic with ejection fraction 55-60%, acute kidney injury, sinus tachycardia, status post cholecystectomy for his gangrenous cholecystitis, restless leg syndrome, BPH, chronic medical debility i talkled to the pt and at bed side , pt is from group home , he was group home since June 2021. At that time she was in the hospital for acute hypoxic respiratory failure of unknown causes. He needed intubation at that time. He had complete opacification in the left hemithorax he had 2 bronchoscopy done which was negative for microbial growth. He has another admission on 09/2021. Patient and states that he came here because he wanted to get the PEG tube because he was not eating anything since June and he lost a lot of weight he used to weigh 333 pounds and now 193. He states that his main issue is no appetite, he denies choking but he has sometimes nausea that prevent him from eating. Is also short of breath with cough and clear yellow phlegm but no chest pain, no abdominal pain. He has loose bowel movement once or twice a week. Also he has unstageable pressure decubitus ulcer status post debridement, he has wound VAC in place. Patient also complaining of from chronic left leg pain and tenderness, he would not allow someone to drop his leg because it hurts a lot. Inspection looks normal, no trauma. Also was complaining from weakness in both lower extremities since June Patient is tachycardic around 110, on admission heart rate was 125 afebrile. His lab reviewed including CBC showed mild anemia of 11.9, rest of CBC is un remarkable. INR is unremarkable at 1.1. Sodium was low at 123. Creatinine normal 0.8. Glucose was low at 66. Chest x-ray: No acute process. 01/02/2022 Last night patient was started on therapeutic dose Lovenox for acute right leg DVT, CT angiography chest and echo could not be done because have no IV access, patient was transferred to a small IV access was obtained in the right upper arm, not good enough for CT of the chest test or aggressive treatment. However IV fluids could be provided. Blood pressure is improved up to 110/68, however patient still tachycardic. Patient could not eat because of severe nausea and vomiting, H time he put something in his monthly follow-up as per bedside nurse, KUB showing some evidence of ileus, surgical team consult obtained. Social evaluation under direct consults are pending. 01/03/2022 Patient awake alert, looks more comfortable than the first taken to the hospital, less tachypneic, he denies any chest pain or abdominal pain. He tried to take small bites of mashed potato yesterday and he could not consume it and he immediately felt to throw up. CT of the chest is negative for PE, he remains on Lovenox for acute right DVT. CT of the abdomen is suspicious for a complex collection possible abscess although it's the size 5 cm diameter 2.7 cm, recommended ultrasound versus MRI, were going to order a liver ultrasound although it is of less sensitivity especially with this patient large body habitus however it is less invasive than MRI. Also flowcalcitonin is the slightly elevated. He is slightly tachycardic although is better than before. Blood pressure 93/63. Today sodium dropped 127 down to 122 because of this we held his IV fluids and reordered anemia workup in the urine and the serum, we will monitor his sodium level tomorrow if no improvement and may consider further workup. Surgical team consult is called, the plan for PEG tube placement on . Patient originally came to the hospital the PEG tube placement. Patient is not consuming his oral medication but we stopped his gabapentin and ropinirole. 01/04/2022 Kirsten Bach feels better today, he does not feel dizziness while he is lying in bed all the time. He still have low appetite but no chest pain or dyspnea, no abdominal pain. He still complaining from pain in his legs and he has right leg DVT been on Lovenox with plan to switch him to heparin drip on today as he got midline Blood pressure is 87/56, heart rate 120, sodium is 121 On admission his sodium was still low and was started on D5 normal saline at 100 mL/h however after initial improvement sodium dropped to 121 yesterday so we held his IV fluid and the evening sodium improved 124 (no iv lasix given), however this morning is 121 again. We send urine studies and I'll consult investigations chief. Also patient has negative CTPA for pulmonary embolism but CT of the abdomen and pelvis showing possible gallbladder fossa abscess or complex fluid collection although it is improved from previous 5 cm down to 2.7 centimeters. The recommended liver ultrasound versus MRI, ultrasound shows the same findings. Also surgery due on the case 01/05/2022 Last night his blood pressure dropped with systolic and 50s, there was a rapid response a team response and he was as stated with IV fluids aggressively, his blood pressure improved in 90s this morning and during the round he was awake and alert looks tired but is appropriate. Sodium was 121 and then 119. He denied any chest pain or abdominal pain, no other complaints clinically. His losing from his puncture wound in the right lower abdomen was a stopped, he was started on heparin drip per recommendation of material combiner. After once by the evening time his blood pressure dropped again was 53/32 with altered mental status, there was another rapid response where patient was transferred to the ICU and levophed was started and his mentation started to improve again. Patient was started also on antibiotic empirically with Zosyn and IV vancomycin total infection ruled out completely as there is still high suspicion, with possible sources including the pressure wound sacral ulcer in the lower back, and less likely the gallbladder bed and fossa with 2.7 cm fluid collection (felt less likely because actually it decreased in size from 5.0 cm previously) After transfer patient and at bedside opted for the DO NOT RESUSCITATE order as per bedside nurse. 01/06/2022 Yesterday patient was still deteriorating, however today patient turned around and start improving patient remains in the ICU he needs to pressors we will fit and vasopressin, lactic acid trending up 6.4. Patient mentation is also deteriorated and become more confused and less responsive. His creatinine remains around 1 although he has low urine output. Patient is resuscitated with many fluids and also his broad-spectrum antibiotics with IV vancomycin and Zosyn, as septic shock is highly suspected is the cause of the patient profound hypotension and shock state. Although other factors might be contributing to it. Because of this we started the patient on hydrocortisone to increase the sensitivity of the adrenergic receptors to the catecholamine. Also replacing electrolytes including calcium and magnesium. Sodium slightly trending up. Patient remains in critical condition. Family at bedside 01/07/2022 Patient today workup and he was awake alert and oriented 3, he follows commands, he feels hungry and actually he started tolerating diet for the first time after several months. He denies any respiratory symptoms, his abdomen looks benign, no other new complaints. Blood pressure is improving and he required less pressors, currently blood pressure is 87/61, is less tachycardic around 110. He is currently on levophed 0.03 which is decreased from yesterday. Last night we added hydrocortisone 100 mg 3 times a day as a replacement therapy but to support blood pressure and increased sensitivity of levophed to its adrenergic receptors. Since blood pressure improvement with lower dose to 50 mg today, possibly we will discontinue it in one or 2 days once blood pressure keep improvement. Also patient receiving fluids. Labs looks stable, hemoglobin 9.8, sodium 126 he remains on Zosyn, vancomycin was discontinued. He remains on Zosyn. Anticoagulation is switched to Eliquis therapeutic dose at 10 mg which could be switched to 5 mg on 01/17. Prognosis remains guarded 01/08/2022 Patient is awake but drowsy, His blood pressure is improving but he still on pressors although is requiring less amount He has poor urine output but creatinine is around 1.1. His GFR is 66. He is going to receive 1 dose of Lasix 80 mg today. Also significant sodium bicarb and albumin infusion. He remains on Zosyn Anticoagulation with Eliquis January 09 2022: I assumed care of patient today. ICU: Tired. Lethargic. Patient drips include vasopressin and norepinephrine. the bedside. Getting 2 units of PRBC. Received IV albumin yesterday. Also received some IV diuretics. 2 L nasal cannula. Hemoglobin 5.5 today. On IV Zosyn. Wound VAC. On clear liquids. 01/10/2022: ICU: Remains in bed. Tired. Lethargic. Following simple commands. On IV levo fed. IV Zosyn. Discussed with at the bedside. Eating small amounts. Receive 2 units of blood yesterday. 01/11/2022: ICU: Tired lethargic. at the bedside. IV levo fed. Poor oral intake. Discussed with Dr. Dong from ID. Rule out right upper quadrant abscess versus infected hematoma. Computed tomography scan with contrast ordered. 01/12/2022: ICU: Drip planning a bit. But more awake. Answers simple questions. Poor oral intake. Discussed with the patient. Refuses PEG tube. present. Computed tomography scan abdomen canceled by Dr. Chow. BP is running on the lower side. Decrease Lopressor to 25 mg twice a day. 01/13/2022: ICU: Remains tired lethargic. TPN lipids ordered by pulmonary. Spoke to the patient and at the bedside. Patient refuses NG tube feeding. Did also inform them that sleep 2 first consequences including . No changing his mind. Spoke to the at the bedside. She'll have a brother come in and talked with the patient again. Computed tomography scan abdomen results discussed with the radiologist. Right upper quadrant no obvious abscess or hematoma. A lot of fluids/third spacing. Active Medications Hydrocodone Bitart/Acetaminophen (Hydrocodone/Apap 5-325mg 1 Each Tab) 1 each PO Q6HR PRN PRN Reason: Pain Last Admin: 01/08/22 13:23 Dose: 1 each Albuterol Sulfate (Albuterol Nebulized 2.5 Mg/3 Ml) 2.5 mg INHALATION Q2H PRN PRN Reason: AIRWAY PATENCY Last Admin: 12/31/21 21:36 Dose: 2.5 mg Albuterol/Ipratropium (Ipratropium-Albuterol 3 Ml Neb) 3 ml INHALATION RT-QID [facility] Last Admin: 01/13/22 11:07 Dose: Not Given Apixaban (Apixaban 5 Mg Tab) 10 mg PO BID [facility]; Protocol Stop: 01/14/22 21:01 Last Admin: 01/13/22 09:44 Dose: 10 mg Ascorbic Acid (Ascorbic Acid 500 Mg Tab) 1,000 mg PO DAILY@0800 [facility] Last Admin: 01/13/22 09:44 Dose: 1,000 mg Cholecalciferol (Cholecalciferol 25 Mcg (1000 Iu) Tablet) 25 mcg PO DAILY [facility] Last Admin: 01/13/22 09:43 Dose: 25 mcg Dronabinol (Dronabinol 2.5 Mg Cap) 5 mg PO BID@1200,1700 [facility] Last Admin: 01/12/22 17:34 Dose: 5 mg Folic Acid (Folic Acid 1 Mg Tab) 1 mg PO DAILY [facility] Last Admin: 01/13/22 09:44 Dose: 1 mg Furosemide (Furosemide 10 Mg/Ml 4 Ml Vial) 40 mg IV BID [facility] Last Admin: 01/13/22 09:51 Dose: 40 mg Hydromorphone HCl (Hydromorphone 0.5 Mg/0.5 Ml Syringe) 0.5 mg IVP Q4HR PRN PRN Reason: Pain Last Admin: 01/07/22 21:50 Dose: 0.5 mg Piperacillin Sod/Tazobactam (Sod 3.375 gm/ Sodium Chloride) 100 mls @ 25 mls/hr IVPB Q8H [facility]; Protocol Last Admin: 01/13/22 03:08 Dose: 25 mls/hr Sodium Chloride (Saline 0.9%) 1,000 mls @ 10 mls/hr IV .Q24H [facility] Last Admin: 01/12/22 12:07 Dose: 10 mls/hr Insulin Aspart (Insulin Aspart (Novolog) 100 Unit/Ml Vial) 0 unit SQ ACHS [facility]; Protocol Last Admin: 01/13/22 11:47 Dose: Not Given Lidocaine HCl (Lidocaine 1% (10mg/Ml) For Iv Start) 0.1 ml INTRADERMA PER PROTOCOL PRN PRN Reason: IV Start Magnesium Oxide (Magnesium Oxide 400 Mg Tab) 400 mg PO TID [facility] Last Admin: 01/13/22 09:44 Dose: 400 mg Metoprolol Tartrate (Metoprolol Tartrate 25 Mg Tab) 25 mg PO BID@0800,1600 [facility] Last Admin: 01/13/22 09:38 Dose: Not Given Midodrine (Midodrine 5 Mg Tab) 10 mg PO AC-TID [facility] Last Admin: 01/13/22 06:32 Dose: 10 mg Miscellaneous Information (Phosphorus Replacement Protoco 1 Each Misc) 1 each MISCELLANE DAILY PRN; Protocol PRN Reason: Per Protocol Miscellaneous Information (Magnesium Replacement Protocol 1 Each Misc) 1 each MISCELLANE DAILY PRN; Protocol PRN Reason: Per Protocol Miscellaneous Information (Potassium Replacement Protocol 1 Each Misc) 1 each MISCELLANE DAILY PRN; Protocol PRN Reason: Per Protocol Multivitamins (Multivitamins, Thera 1 Each Tab) 1 each PO DAILY [facility] Last Admin: 01/13/22 09:43 Dose: 1 each Naloxone HCl (Naloxone 0.4 Mg/Ml 1 Ml Vial) 0.2 mg IV Q2M PRN PRN Reason: Opioid Reversal Ondansetron HCl (Ondansetron 4 Mg/2 Ml Vial) 4 mg IVP Q6HR PRN PRN Reason: Nausea And Vomiting Last Admin: 01/02/22 18:15 Dose: 4 mg Pantoprazole Sodium (Pantoprazole 40 Mg/10 Ml Vial) 40 mg IVP BID [facility] Last Admin: 01/13/22 09:45 Dose: 40 mg Sodium Chloride (Sodium Chloride 0.9% Flush 10 Ml Syringe) 10 ml IV Q4HR PRN PRN Reason: PICC Line Sodium Chloride (Sodium Chloride 0.9% Flush 10 Ml Syringe) 10 ml IV WEEKLY [facility] Sodium Chloride (Sodium Chloride 0.9% Flush 10 Ml Syringe) 20 ml IV Q4HR PRN PRN Reason: PICC Line Tamsulosin HCl (Tamsulosin 0.4 Mg Cap.Er.24h) 0.4 mg PO DAILY [facility] Last Admin: 01/13/22 09:44 Dose: 0.4 mg On examination: VITAL SIGNS: 97.5, 92, 16, 90/69, 98% room air GENERAL APPEARANCE: Tired , lethargic, HEENT: Normal external appearance of nose and ear. Oral cavity normal EYES: Pupils equal. Conjunctiva normal. NECK: JVD unable to assess. Mass not palpable. RESPIRATORY: Respiratory effort increased. Decreased breath sounds to auscultation. CARDIOVASCULAR: First and second sounds normal. Some edema. ABDOMEN: Soft. Liver and spleen not palpable. No tenderness. No mass palpable. PSYCHIATRY: Answering simple questions Muscular skeletal: Stage IV pressure ulcer left buttock. With wound VAC INVESTIGATIONS, reviewed in the clinical context: January 13: White count 3.5 hemoglobin 10.4 platelets 95 January 12: WBC 4.5 hemoglobin 9.9 potassium 3.6 creatinine 1.2 to albumin 2.0 January 11: White count 5.6 hemoglobin 10.3 sodium 132 potassium 3.5 creatinine 1.24 January 10: Obesity 4.9 hemoglobin 8.4 platelets 137 sodium 137 potassium 3.3 creatinine 1.2 January 09: White count 5.6 hemoglobin 5.5 platelets 179 sodium 128 potassium 3.2 creatinine 1.25 albumin 2.2 LIVER: ULTRASOUND:. PRIOR CHOLECYSTECTOMY. COMPLEX AREA SEEN IN THE GALLBLADDER FOSSA. CONTAINING A FEW BUBBLES. CT abdomen: Persistent heterogenous hyperdense area in the hepatic parenchyma adjacent to the gallbladder fossa. Limited 2-D echocardiogram: Home LV function. Ultrasound venous Doppler: Positive DVT right lower extremity. Assessment and plan: Severe hypotension and shock state requiring pressors, possible septic shock : Slow to respond -Acute metabolic encephalopathy, multifactorial: Slow to respond -Complex liver collection adjacent to gallbladder fossa 2.7 cm Repeat computed tomography scan not suggestive of abscess/hematoma -Hyponatremia Follow labs -Persistent nausea and vomiting secondary to ileus,: Better -Acute right leg DVT Eliquis -Severe anorexia: Slow to respond On Marinol. Encourage oral intake -Dehydration and hypovolemia, improving -Unstageable chronic decubitus ulcer - wound VAC placement -Anemia of chronic diseases -Acute drop in hemoglobin from 10-5.5. Patient is on eliquis. -Hyperphosphatemia Supplement phosphorus -Essential Hypertension Decrease Lopressor to 25 mg twice a day. Hyperlipidemia -COPD DuoNeb 4 times a day -Chronic congestive heart failure with ejection fraction 55-60% On Lasix -Sinus tachycardia -Restless leg syndrome -BPH Flomax -Anorexia Marinol. -Chronic medical debility -Moderate protein calorie malnutrition from poor oral intake Patient is refusing tube feeding DO NOT RESUSCITATE Computed tomography scan results discussed with Drs. Mckeon from radiology. Doubt abscess/hematoma. TPN and lipids ordered by pulmonary. Discussed with patient and . Patient refusing any enteral feeding. Patient advised brother will come in and then again talked with the patient. Total time spent about 40 minutes with over 25 dose of discussion.
[2022-01-13] MEDS: SODIUM CHLORIDE 0.9% 1,000 ML IV SCH (15:06)
[2022-01-13] MEDS: POTASSIUM CHLORIDE 10 MEQ in WATER FOR INJECTION 1 100ML.BAG IVPB SCH ×2 (15:11→16:48)
[2022-01-13 16:03] LABS: Albumin 1.6 g/dL (3.5-5.0); Calcium 6.8 mg/dL (8.4-10.2); Magnesium 1.7 mg/dL (1.6-2.3); Phosphorus 2.6 mg/dL (2.5-4.5); Potassium 2.9 mmol/L (3.5-5.1); Total Bilirubin 0.4 mg/dL (0.2-1.3); Total Protein 3.4 g/dL (6.3-8.2)
[2022-01-13] MEDS ORDERED: POTASSIUM CHLORIDE 20 MEQ in SODIUM CHLORIDE 0.9% 100 ML IVPB SCH (17:00)
[2022-01-13] MEDS: MAGNESIUM SULFATE-D5W PMX 1 GM in DEXTROSE/WATER 1 100ML.BAG IVPB SCH ×2 (17:01→17:41)
[2022-01-13] MEDS: POTASSIUM CHLORIDE 20 MEQ in WATER FOR INJECTION 1 100ML.BAG IVPB SCH ×2 (17:56→19:53)
[2022-01-13] MEDS ORDERED: MVI, ADULT NO.4 WITH VIT K 10 ML, TRACE (CONC-1ML/DOSE) 1 ML in AMINO ACID 4.25%-D10W+L... IV SCH ×3 (18:00)
[2022-01-13 21:02] LABS: Glucose,Whole Blood 197 mg/dL (70-110)
[2022-01-14] MEDS: MIDODRINE 5 MG TAB PO SCH ×3 (06:56→17:05)
--- NOTE | 2022-01-14 06:58 | P.PN ---
Subjective Progress Note Date: 01/13/22 Principal diagnosis: Possible abscess Patient is a 61-year-old male with multiple comorbidities including COPD diabetes hypertension in this patient who did have open cholecystectomy for gangrenous cholecystitis on 09/17/2021, subsequently admitted to the hospital for not eating and drinking and placement of a PEG tube patient also have a CT abdominal pelvis as well as ultrasound suspicious for fluid collection in the gallbladder fossa concerning for seroma versus abscess. On today's evaluation that is 01/13/2022, the patient remains to be afebrile, the patient is hemodynamically stable and off the pressor support, the patient is breathing comfortably on nasal cannula oxygen, the patient denies any chest pain shortness of breath , the patient with mild dry cough , the patient denies abdominal pain and no diarrhea has been reported by the nursing staff Objective - Vital Signs Vital signs: Vital Signs Temp 97.5 F L 01/13/22 04:00 Pulse 92 01/13/22 07:43 Resp 23 01/13/22 07:00 BP 98/63 01/13/22 07:00 Pulse Ox 96 01/13/22 07:00 FiO2 28 01/02/22 16:04 Intake & Output 01/12/22 01/13/22 01/13/22 18:59 06:59 18:59 Intake Total 1275.459 310 20 Output Total 1405 845 50 Balance -129.541 -535 -30 Weight 81 kg Intake: IV 299 220 20 0.9 NACL 230 220 20 pressure bags 69 Intake, IV Titration 101.459 Amount Norepinephrine 32 mg In 101.459 Sodium Chloride 0.9% 218 ml @ 0.5 MCG/KG/MIN 20. 518 mls/hr IV .[id number] [facility] Rx#:[id number] Oral 875 90 Output: Urine 1405 845 50 Other: Voiding Method Indwelling Catheter Indwelling Catheter ABP, PAP, CO, CI - Last Documented Arterial Blood Pressure 130/71 - Exam GENERAL DESCRIPTION: Middle-aged male lying in bed in no distress RESPIRATORY SYSTEM: Unlabored breathing , decreased breath sounds at bases HEART: S1 S2 regular rate and rhythm , ABDOMEN: Soft , no tenderness EXTREMITIES: One plus edema feet Examination of the sacral wound which is deep did have undermining however the wound base looks clean with no slough tissue there was some dried blood some surrounding deep tissue injury but no cellulitis - Labs CBC & Chem 7: 01/13/22 06:55 01/13/22 15:08 Labs: Abnormal Lab Results - Last 24 Hours (Table) 01/12/22 01/12/22 01/12/22 Range/Units 11:32 16:14 20:38 WBC (3.8-10.6) k/uL RBC (4.30-5.90) m/uL Hgb (13.0-17.5) gm/dL Hct (39.0-53.0) % RDW (11.5-15.5) % Plt Count (150-450) k/uL Lymphocytes # (1.0-4.8) k/uL POC Glucose (mg/dL) 138 H 181 H 200 H (70-110) mg/dL 01/13/22 Range/Units 06:55 WBC 3.5 L (3.8-10.6) k/uL RBC 3.55 L (4.30-5.90) m/uL Hgb 10.4 L (13.0-17.5) gm/dL Hct 31.8 L (39.0-53.0) % RDW 18.9 H (11.5-15.5) % Plt Count 95 L (150-450) k/uL Lymphocytes # 0.7 L (1.0-4.8) k/uL POC Glucose (mg/dL) (70-110) mg/dL Assessment and Plan (1) Abnormal abdominal CT scan Current Visit: Yes Status: Acute Code(s): R93.5 - ABN FINDINGS ON DX IMAGING OF ABD REGIONS, INC RETROPERITON SNOMED Code(s): [id number] Plan: 1patient with abnormal CT as well as ultrasound of the liver gallbladder area concerning for possible fluid collection in the gallbladder. In this patient who did have a history of gangrenous cholecystitis s/p cholecystectomy on 09/17/2021 with concern for possible postop seroma versus abscess, patient was clinically not behaving as an abscess with no fever or elevated white count. 2detailed discussion with IR on 01/04/2022 and with high risk for any percutaneous intervention hence the right upper quadrant fluid was not drained 3 patient subsequently did have significant hypotension and has been transferred to ICU culture has been obtained which are negative so for 4-patient noticed to have significant drop in his hemoglobin with question of possible intra-abdominal/right upper quadrant bleed , CT was reviewed with radiologist collection in the gallbladder fossa seems like a hematoma and a spot significant increase in size the patient did have significant anasarca and did not mention any sacral destruction or erosion in this patient who did have a stage IV sacral pressure ulcer, patient will continue with the Zosyn at this point and we'll recheck his inflammatory marker Time with Patient: Less than 30
[2022-01-14] MEDS: IPRATROPIUM-ALBUTEROL 3 ML NEB INHALATION SCH ×4 (07:49→19:39)
--- NOTE | 2022-01-14 09:25 | P.PN ---
Subjective Patient is seen in follow-up for hyponatremia and acute kidney injury. Off vasopressors. On IV Lasix. Nonoliguric. Sodium level 135 yesterday. Hemoglobin improved post blood transfusion. No active bleeding per the nurse. On dysphagia 3 chopped diet. TPN started due to poor intake. Vital signs are stable. General: Awake. No acute distress. HEENT: Head exam is unremarkable. On nasal cannula. LUNGS: Breath sounds decreased. HEART: Regular rate and rhythm. ABDOMEN: Soft, no distention. EXTREMITITES: 1+ edema. Objective - Vital Signs Vital signs: Vital Signs Temp 97.7 F 01/14/22 04:00 Pulse 96 01/14/22 08:01 Resp 16 01/14/22 07:00 BP 88/59 01/14/22 07:00 Pulse Ox 99 01/14/22 07:50 FiO2 28 01/02/22 16:04 Intake & Output 01/13/22 01/14/22 01/14/22 18:59 06:59 18:59 Intake Total 1666 412.053 80 Output Total 720 1155 30 Balance 946 -742.947 50 Weight 81 kg Intake: IV 580 360 20 0.9 NACL 80 160 20 Magnesium Sulfate-D5w Pmx 200 1 gm In Dextrose/Water 1 100ml.bag @ 100 mls/hr IVPB Q1H [facility] Rx#: [id number] Potassium Chloride 10 meq 100 In Water For Injection 1 100ml.bag @ 100 mls/hr IVPB Q1H [facility] Rx#: [id number] Potassium Chloride 20 meq 100 100 In Water For Injection 1 100ml.bag @ 50 mls/hr IVPB Q2H [facility] Rx#: [id number] zosyn 100 100 Intake, IV Titration 12.053 Amount Norepinephrine 32 mg In 12.053 Sodium Chloride 0.9% 218 ml @ 0.05 MCG/KG/MIN 1. 898 mls/hr IV .Q24H [facility] Rx#:[id number] Oral 1086 40 60 Output: Urine 720 1155 30 Other: Voiding Method Indwelling Catheter ABP, PAP, CO, CI - Last Documented Arterial Blood Pressure 130/71 - Labs CBC & Chem 7: 01/13/22 06:55 01/13/22 15:08 Labs: Abnormal Lab Results - Last 24 Hours (Table) 01/13/22 01/13/22 01/13/22 Range/Units 11:29 15:08 21:00 Sodium 135 L (137-145) mmol/L Potassium 2.9 L (3.5-5.1) mmol/L POC Glucose (mg/dL) 120 H 197 H (70-110) mg/dL Calcium 6.8 L (8.4-10.2) mg/dL Alkaline Phosphatase 189 H (38-126) U/L Total Protein 3.4 L (6.3-8.2) g/dL Albumin 1.6 L (3.5-5.0) g/dL Assessment and Plan Plan: Assessment: 1. Acute kidney injury secondary to ATN secondary to hypotension/shock. Creatinine fairly stable at 1.14 as of yesterday. Nonoliguric. 2. Hyponatremia. Hypervolemic. Improved. 3. Shock. Possibly septic possible source gallbladder versus decubitus ulcer. On antibiotics. Currently on low-dose Levophed. 4. Lower extremity edema. Improving with diuresis. 5. Metabolic acidosis secondary to acute kidney injury status post bicarb drip. Improved. On oral bicarbonate. 6. Hypokalemia from diuresis. Replaced. 7. Acute blood loss anemia status post blood transfusion 01/09/2022. Stool for occult blood negative. C. diff negative. 8. Hypophosphatemia from poor intake. Replaced. Improved. Plan: Maintain IV Lasix 40 mg twice daily. 25 g IV albumin 2 doses today. Encouraged oral intake. Also receiving TPN. Status post [facility] 01/10/2022. Cortisol level not low. Labs from today pending. Wean Levophed.
[2022-01-14] MEDS: TAMSULOSIN 0.4 MG CAP.ER.24H PO SCH (10:08)
[2022-01-14] MEDS: APIXABAN 5 MG TAB PO SCH ×2 (10:08→21:53)
[2022-01-14] MEDS: INSULIN ASPART (NovoLOG) 100 UNIT/ML VIAL SQ SCH ×5 (10:12→21:09)
[2022-01-14] MEDS: MULTIVITAMINS, THERA 1 EACH TAB PO SCH (10:30)
[2022-01-14] MEDS: FOLIC ACID 1 MG TAB PO SCH (10:30)
[2022-01-14] MEDS: MAGNESIUM OXIDE 400 MG TAB PO SCH ×3 (10:30→21:52)
[2022-01-14] MEDS: ASCORBIC ACID 500 MG TAB PO SCH (10:30)
[2022-01-14] MEDS: CHOLECALCIFEROL 25 MCG (1000 IU) TABLET PO SCH (10:30)
[2022-01-14] MEDS: PIPERACILLIN-TAZOBACTAM 3.375 GM in SODIUM CHLORIDE 0.9% 100 ML IVPB SCH ×3 (10:35→23:38)
[2022-01-14] MEDS: PANTOPRAZOLE 40 MG/10 ML VIAL IVP SCH ×2 (10:36→21:52)
[2022-01-14 10:53] LABS: Ionized Calcium 4.5 mg/dL (4.5-5.3)
[2022-01-14 11:04] LABS: Albumin 1.6 g/dL (3.5-5.0); C Reactive Protein 5.5 mg/dL (<1.0); Calcium 7.1 mg/dL (8.4-10.2); Magnesium 2.1 mg/dL (1.6-2.3); Potassium 3.9 mmol/L (3.5-5.1)
[2022-01-14 11:29] LABS: Anisocytosis Slight; HCT 28.2 % (39.0-53.0); Hypochromasia Moderate; MCH 28.8 pg (25.0-35.0); MCHC 31.8 g/dL (31.0-37.0); MCV 90.6 fL (80.0-100.0); Mean Platelet Volume 8.5; Platelet Count 114 k/uL (150-450); RBC 3.11 m/uL (4.30-5.90); RDW 18.9 % (11.5-15.5); WBC 3.2 k/uL (3.8-10.6)
[2022-01-14 11:40] LABS: Glucose,Whole Blood 206 mg/dL (70-110)
[2022-01-14] MEDS: METOPROLOL TARTRATE 25 MG TAB PO SCH ×2 (12:10→17:13)
[2022-01-14] MEDS: FUROSEMIDE 10 MG/ML 4 ML VIAL IV SCH ×2 (12:23→21:52)
[2022-01-14] MEDS: FLUDROCORTISONE 0.1 MG TAB PO SCH ×2 (12:33→21:53)
[2022-01-14] MEDS: ALBUMIN HUMAN 25% 50 ML in EMPTY BAG 1 BAG IVPB SCH ×4 (12:34→18:38)
--- NOTE | 2022-01-14 12:47 | P.PN ---
Subjective Progress Note Date: 01/14/22 Principal diagnosis: Septic shock, likely source is stage IV decubitus ulcer 01/10/2022, I'm seeing the patient for a follow-up. Clinically, the patient's condition is the same. Still lethargic and extremely weak and the patient is having significant amount of third spacing and edema in all 4 extremities. Yesterday, the patient received a total of 2 units of packed RBC with a hemoglobin of 5.7 the patient responded nicely and the hemoglobin today is up to 8.4. He is not showing any signs of bleeding. Eliquis was restarted. He is on Lasix 40 mg IV every 12 hours. The patient's urine output is gradually improving and the patient is in a negative fluid balance is in his had a hours a negative fluid balance of around 1.2 L at least till now. The patient has a weaned off the pressors. Norepinephrine is running at 0.08 mcg/kg per minute and the vasopressin is at the physiologic dose and this can be essentially discontinued for now. Urine output is excellent for now. The patient's BUN is a 13 with a creatinine of 1.2 and the sodium level of 137. He is currently on 2 L about 2 by nasal cannula. His white cell count of 4.9. Hemoglobin is at 8.4. Lethargic. Weak. Oral intake is quite diminished at this point in time. No major change clinically. Hemodynamically improved as the patient is nearly think the pressors and the patient is being diuresis for now. Reevaluated today on 01/11/22, patient remains in the ICU, presently on 2 L nasal cannula with O2 sats of 98%. Patient is still requiring norepinephrine at 0.15 mcg/kg/m patient remains on Lasix 40 mg IV push every 12 hours, and he had a - 1.57 L over the last 24 hours chest x-ray continues to show evidence of mild interstitial edema, his IV fluid is at 10 mL per hour. Today we recommended that we monitor the CVP and continue the Lasix. Patient seems to be frail and chronically ill. Not in respiratory distress. His WBC count is 5.6 hemoglobin 10.3 electrolytes are normal renal profile is normal, liver profile is unremarkable and albumin is low at 2.2 chest x-ray is showing improvement in his interstitial edema Patient was reevaluated today on 01/12/2022, remains in the ICU, remains hypotensive requiring small dose of norepinephrine at 0.08 mcg/kg/m patient is on IV fluid at KVO remains on diuretics remains on antibiotics he is alert, oriented 3, he is on room air with O2 sats of 99%. He is very weak and bed bound for the last few months. Patient was supposed to have CT of the abdomen, however I did not feel the need or and urgency for a CT of the abdomen since his clinical findings are benign, his abdomen is nonsurgical and I went ahead and canceled the CT of the abdomen which is scheduled to be done today. Patient did not receive a PEG tube mostly because he is eating on his own, but the amount seems to be very small. WBC count today is 4.5, global is 9.9 electrolytes are normal renal profile showed a creatinine 1.22. Chest x-ray showed mostly generalized hazy appearance in both lungs, not much of a exchange engineer the last couple of days. Reevaluated today on 01/13/22, patient remains in the ICU, steadily improving, and he is off norepinephrine at present. Patient is not requiring any hemodynamic support. He is on room air, and does not seem to be in any distress. He is however generally weak. And remains nonoliguric. Responds well to Lasix were given. Hemoglobin is holding at 10.4, it was 9.9 yesterday. Patient received a total of 3 units of packed RBCs since his admission. WBC 3.5 hemoglobin is 10.4. Last BUN yesterday was 14 creatinine 1.2 to which is basically the same compared to the last few days. Chest x-ray today showed no major change, continues to have bilateral haziness and pulmonary vascular congestion, nonetheless the patient has no evidence of any pulmonary symptoms and he is on room air Patient was reevaluated today on 01/14/2022, remains in the ICU, yesterday the patient had to be placed back on norepinephrine. However he is off norepinephrine this morning, and the patient remains laying in bed, in no distress, on room air, and his O2 sats is 99%. Remains on Zosyn, his also on Lasix and albumin as per nephrology on the case, renal functioning is back to normal almost. Patient is off norepinephrine this morning, and I plan to transfer the patient again out of the ICU. He will eventually need physical therapy, and ECF placement. Patient has not been out of bed for almost over 6 months. WBC count is 3.2 hemoglobin is 9 electrolytes are normal BUN is 13 and creatinine 1.19. Objective - Vital Signs Vital signs: Vital Signs Temp 97.7 F 01/14/22 04:00 Pulse 100 01/14/22 11:42 Resp 14 01/14/22 11:30 BP 80/56 01/14/22 11:30 Pulse Ox 97 01/14/22 11:30 FiO2 28 01/02/22 16:04 Intake & Output 01/13/22 01/14/22 01/14/22 18:59 06:59 18:59 Intake Total 1666 412.053 82.799 Output Total 720 1155 120 Balance 946 -742.947 -37.201 Weight 81 kg 81 kg Intake: IV 580 360 20 0.9 NACL 80 160 20 Magnesium Sulfate-D5w Pmx 200 1 gm In Dextrose/Water 1 100ml.bag @ 100 mls/hr IVPB Q1H [facility] Rx#: [id number] Potassium Chloride 10 meq 100 In Water For Injection 1 100ml.bag @ 100 mls/hr IVPB Q1H [facility] Rx#: [id number] Potassium Chloride 20 meq 100 100 In Water For Injection 1 100ml.bag @ 50 mls/hr IVPB Q2H [facility] Rx#: [id number] zosyn 100 100 Intake, IV Titration 12.053 2.799 Amount Norepinephrine 32 mg In 12.053 2.799 Sodium Chloride 0.9% 218 ml @ 0.05 MCG/KG/MIN 1. 898 mls/hr IV .Q24H [facility] Rx#:[id number] Oral 1086 40 60 Output: Urine 720 1155 120 Other: Voiding Method Indwelling Catheter ABP, PAP, CO, CI - Last Documented Arterial Blood Pressure 130/71 - Exam GENERAL APPEARANCE: 61-year-old in no distress on room air Head: Atraumatic, normocephalic. HEENT: PERRLA, EOMI, nonicteric. EYES: Pupils equal. Conjunctiva normal. NECK: No JVD no neck masses no stridor RESPIRATORY: Diminished breath sounds at the bases no rhonchi no wheezes CARDIOVASCULAR: Distant S1 and S2, no S3 gallop, no murmur. ABDOMEN: Soft nontender no megaly no rebound no guarding.. PSYCHIATRY: Normal mood, normal affect, appropriate mental status. Muscular skeletal: Stage IV pressure ulcer left buttock. With wound VAC - Labs CBC & Chem 7: 01/14/22 10:30 01/14/22 10:20 Labs: Abnormal Lab Results - Last 24 Hours (Table) 01/13/22 01/13/22 01/14/22 Range/Units 15:08 21:00 10:20 WBC (3.8-10.6) k/uL RBC (4.30-5.90) m/uL Hgb (13.0-17.5) gm/dL Hct (39.0-53.0) % RDW (11.5-15.5) % Plt Count (150-450) k/uL Sodium 135 L 130 L (137-145) mmol/L Potassium 2.9 L (3.5-5.1) mmol/L Glucose 342 H (74-99) mg/dL POC Glucose (mg/dL) 197 H (70-110) mg/dL Calcium 6.8 L 7.1 L (8.4-10.2) mg/dL Alkaline Phosphatase 189 H (38-126) U/L C-Reactive Protein 5.5 H (<1.0) mg/dL Total Protein 3.4 L (6.3-8.2) g/dL Albumin 1.6 L 1.6 L (3.5-5.0) g/dL 01/14/22 01/14/22 Range/Units 10:30 11:38 WBC 3.2 L (3.8-10.6) k/uL RBC 3.11 L (4.30-5.90) m/uL Hgb 9.0 L (13.0-17.5) gm/dL Hct 28.2 L (39.0-53.0) % RDW 18.9 H (11.5-15.5) % Plt Count 114 L (150-450) k/uL Sodium (137-145) mmol/L Potassium (3.5-5.1) mmol/L Glucose (74-99) mg/dL POC Glucose (mg/dL) 206 H (70-110) mg/dL Calcium (8.4-10.2) mg/dL Alkaline Phosphatase (38-126) U/L C-Reactive Protein (<1.0) mg/dL Total Protein (6.3-8.2) g/dL Albumin (3.5-5.0) g/dL Assessment and Plan Assessment: Impression: Septic shock, most likely source is stage IV decubitus ulcer Acute metabolic encephalopathy secondary to sepsis History of gangrenous cholecystitis requiring surgery History of DVT, on anticoagulation therapy Stage IV decubitus ulcer with wound VAC. Hypoalbuminemia. Non-anion gap metabolic acidosis. Improved. Type 2 diabetes. Chronic bronchial asthma doesn't list stable. Obstructive sleep apnea syndrome. Benign essential hypertension. Dyslipidemia. Medical debility. Patient has been bedbound for almost 6 months Chronic anemia Recommendation: Transfer to regular medical floor today. Continue oral feeding/Nutritional support. Patient is also on TPN since he is not meeting his caloric requirement GI prophylaxis. Continue anticoagulation therapy for DVT. Continue Zosyn for now CODE STATUS/DO NOT RESUSCITATE. We will continue to follow. student support services director to evaluate for placement/ECF placement Time with Patient: Less than 30
[2022-01-14] MEDS ORDERED: POTASSIUM CHLORIDE ER 20 MEQ TAB.ER PO SCH (15:00)
[2022-01-14 17:18] LABS: Glucose,Whole Blood 314 mg/dL (70-110)
--- NOTE | 2022-01-14 17:59 | P.PN ---
Progress Note - Text Progress Note Date: 01/14/22 Hospital course: this is a pleasant 61 yo M with past medical history of COPD, Diabetes Mellitus, Deep Vein Thrombosis, Hyperlipidemia, Hypertension, Sleep Apnea/CPAP/BIPAP He was in the hospital on 09/2021 for severe hypertension from decreased oral intake, acute metabolic encephalopathy, chronic congestive heart failure, diastolic with ejection fraction 55-60%, acute kidney injury, sinus tachycardia, status post cholecystectomy for his gangrenous cholecystitis, restless leg syndrome, BPH, chronic medical debility i talkled to the pt and at bed side , pt is from prison , he was prison since June 2021. At that time she was in the hospital for acute hypoxic respiratory failure of unknown causes. He needed intubation at that time. He had complete opacification in the left hemithorax he had 2 bronchoscopy done which was negative for microbial growth. He has another admission on 09/2021. Patient and states that he came here because he wanted to get the PEG tube because he was not eating anything since June and he lost a lot of weight he used to weigh 333 pounds and now 193. He states that his main issue is no appetite, he denies choking but he has sometimes nausea that prevent him from eating. Is also short of breath with cough and clear yellow phlegm but no chest pain, no abdominal pain. He has loose bowel movement once or twice a week. Also he has unstageable pressure decubitus ulcer status post debridement, he has wound VAC in place. Patient also complaining of from chronic left leg pain and tenderness, he would not allow someone to drop his leg because it hurts a lot. Inspection looks normal, no trauma. Also was complaining from weakness in both lower extremities since June Patient is tachycardic around 110, on admission heart rate was 125 afebrile. His lab reviewed including CBC showed mild anemia of 11.9, rest of CBC is un remarkable. INR is unremarkable at 1.1. Sodium was low at 123. Creatinine normal 0.8. Glucose was low at 66. Chest x-ray: No acute process. 01/02/2022 Last night patient was started on therapeutic dose Lovenox for acute right leg DVT, CT angiography chest and echo could not be done because have no IV access, patient was transferred to a small IV access was obtained in the right upper arm, not good enough for CT of the chest test or aggressive treatment. However IV fluids could be provided. Blood pressure is improved up to 110/68, however patient still tachycardic. Patient could not eat because of severe nausea and vomiting, H time he put something in his monthly follow-up as per bedside nurse, KUB showing some evidence of ileus, surgical team consult obtained. Social evaluation under direct consults are pending. 01/03/2022 Patient awake alert, looks more comfortable than the first taken to the hospital, less tachypneic, he denies any chest pain or abdominal pain. He tried to take small bites of mashed potato yesterday and he could not consume it and he immediately felt to throw up. CT of the chest is negative for PE, he remains on Lovenox for acute right DVT. CT of the abdomen is suspicious for a complex collection possible abscess although it's the size 5 cm diameter 2.7 cm, recommended ultrasound versus MRI, were going to order a liver ultrasound although it is of less sensitivity especially with this patient large body habitus however it is less invasive than MRI. Also flowcalcitonin is the slightly elevated. He is slightly tachycardic although is better than before. Blood pressure 93/63. Today sodium dropped 127 down to 122 because of this we held his IV fluids and reordered anemia workup in the urine and the serum, we will monitor his sodium level tomorrow if no improvement and may consider further workup. Surgical team consult is called, the plan for PEG tube placement on . Patient originally came to the hospital the PEG tube placement. Patient is not consuming his oral medication but we stopped his gabapentin and ropinirole. 01/04/2022 Kirsten Bach feels better today, he does not feel dizziness while he is lying in bed all the time. He still have low appetite but no chest pain or dyspnea, no abdominal pain. He still complaining from pain in his legs and he has right leg DVT been on Lovenox with plan to switch him to heparin drip on today as he got midline Blood pressure is 87/56, heart rate 120, sodium is 121 On admission his sodium was still low and was started on D5 normal saline at 100 mL/h however after initial improvement sodium dropped to 121 yesterday so we held his IV fluid and the evening sodium improved 124 (no iv lasix given), however this morning is 121 again. We send urine studies and I'll consult party plan salesperson. Also patient has negative CTPA for pulmonary embolism but CT of the abdomen and pelvis showing possible gallbladder fossa abscess or complex fluid collection although it is improved from previous 5 cm down to 2.7 centimeters. The recommended liver ultrasound versus MRI, ultrasound shows the same findings. Also surgery due on the case 01/05/2022 Last night his blood pressure dropped with systolic and 50s, there was a rapid response a team response and he was as stated with IV fluids aggressively, his blood pressure improved in 90s this morning and during the round he was awake and alert looks tired but is appropriate. Sodium was 121 and then 119. He denied any chest pain or abdominal pain, no other complaints clinically. His losing from his puncture wound in the right lower abdomen was a stopped, he was started on heparin drip per recommendation of insurance adviser. After once by the evening time his blood pressure dropped again was 53/32 with altered mental status, there was another rapid response where patient was transferred to the ICU and levophed was started and his mentation started to improve again. Patient was started also on antibiotic empirically with Zosyn and IV vancomycin total infection ruled out completely as there is still high suspicion, with possible sources including the pressure wound sacral ulcer in the lower back, and less likely the gallbladder bed and fossa with 2.7 cm fluid collection (felt less likely because actually it decreased in size from 5.0 cm previously) After transfer patient and at bedside opted for the DO NOT RESUSCITATE order as per bedside nurse. 01/06/2022 Yesterday patient was still deteriorating, however today patient turned around and start improving patient remains in the ICU he needs to pressors we will fit and vasopressin, lactic acid trending up 6.4. Patient mentation is also deteriorated and become more confused and less responsive. His creatinine remains around 1 although he has low urine output. Patient is resuscitated with many fluids and also his broad-spectrum antibiotics with IV vancomycin and Zosyn, as septic shock is highly suspected is the cause of the patient profound hypotension and shock state. Although other factors might be contributing to it. Because of this we started the patient on hydrocortisone to increase the sensitivity of the adrenergic receptors to the catecholamine. Also replacing electrolytes including calcium and magnesium. Sodium slightly trending up. Patient remains in critical condition. Family at bedside 01/07/2022 Patient today workup and he was awake alert and oriented 3, he follows commands, he feels hungry and actually he started tolerating diet for the first time after several months. He denies any respiratory symptoms, his abdomen looks benign, no other new complaints. Blood pressure is improving and he required less pressors, currently blood pressure is 87/61, is less tachycardic around 110. He is currently on levophed 0.03 which is decreased from yesterday. Last night we added hydrocortisone 100 mg 3 times a day as a replacement therapy but to support blood pressure and increased sensitivity of levophed to its adrenergic receptors. Since blood pressure improvement with lower dose to 50 mg today, possibly we will discontinue it in one or 2 days once blood pressure keep improvement. Also patient receiving fluids. Labs looks stable, hemoglobin 9.8, sodium 126 he remains on Zosyn, vancomycin was discontinued. He remains on Zosyn. Anticoagulation is switched to Eliquis therapeutic dose at 10 mg which could be switched to 5 mg on 01/17. Prognosis remains guarded 01/08/2022 Patient is awake but drowsy, His blood pressure is improving but he still on pressors although is requiring less amount He has poor urine output but creatinine is around 1.1. His GFR is 66. He is going to receive 1 dose of Lasix 80 mg today. Also significant sodium bicarb and albumin infusion. He remains on Zosyn Anticoagulation with Eliquis January 09 2022: I assumed care of patient today. ICU: Tired. Lethargic. Patient drips include vasopressin and norepinephrine. the bedside. Getting 2 units of PRBC. Received IV albumin yesterday. Also received some IV diuretics. 2 L nasal cannula. Hemoglobin 5.5 today. On IV Zosyn. Wound VAC. On clear liquids. 01/10/2022: ICU: Remains in bed. Tired. Lethargic. Following simple commands. On IV levo fed. IV Zosyn. Discussed with at the bedside. Eating small amounts. Receive 2 units of blood yesterday. 01/11/2022: ICU: Tired lethargic. at the bedside. IV levo fed. Poor oral intake. Discussed with Dr. Dong from ID. Rule out right upper quadrant abscess versus infected hematoma. Computed tomography scan with contrast ordered. 01/12/2022: ICU: Drip planning a bit. But more awake. Answers simple questions. Poor oral intake. Discussed with the patient. Refuses PEG tube. present. Computed tomography scan abdomen canceled by Dr. Chow. BP is running on the lower side. Decrease Lopressor to 25 mg twice a day. 01/13/2022: ICU: Remains tired lethargic. TPN lipids ordered by pulmonary. Spoke to the patient and at the bedside. Patient refuses NG tube feeding. Did also inform them that sleep 2 first consequences including . No changing his mind. Spoke to the at the bedside. She'll have a brother come in and talked with the patient again. Computed tomography scan abdomen results discussed with the radiologist. Right upper quadrant no obvious abscess or hematoma. A lot of fluids/third spacing. 01/14/2022: ICU: Tired. I again spoke to the and the patient. Does not want to feeding of any sorts. Has TPN lipids running. Also discussed that this is very temporary. Blood pressure running low. Jeremiah wrap ordered with Denise. Prognosis poor. Also discussed with Dr. Hawk from pulmonary. Patient was placed on levo fed last night. Active Medications Hydrocodone Bitart/Acetaminophen (Hydrocodone/Apap 5-325mg 1 Each Tab) 1 each PO Q6HR PRN PRN Reason: Pain Last Admin: 01/08/22 13:23 Dose: 1 each Albuterol Sulfate (Albuterol Nebulized 2.5 Mg/3 Ml) 2.5 mg INHALATION Q2H PRN PRN Reason: AIRWAY PATENCY Last Admin: 12/31/21 21:36 Dose: 2.5 mg Albuterol/Ipratropium (Ipratropium-Albuterol 3 Ml Neb) 3 ml INHALATION RT-QID COUNT INCLUDES THE [facility] Last Admin: 01/14/22 15:39 Dose: 3 ml Apixaban (Apixaban 5 Mg Tab) 10 mg PO BID COUNT INCLUDES THE [facility]; Protocol Stop: 01/14/22 21:01 Last Admin: 01/14/22 10:08 Dose: 10 mg Ascorbic Acid (Ascorbic Acid 500 Mg Tab) 1,000 mg PO DAILY@0800 COUNT INCLUDES THE [facility] Last Admin: 01/14/22 10:30 Dose: 1,000 mg Cholecalciferol (Cholecalciferol 25 Mcg (1000 Iu) Tablet) 25 mcg PO DAILY COUNT INCLUDES THE [facility] Last Admin: 01/14/22 10:30 Dose: 25 mcg Dronabinol (Dronabinol 2.5 Mg Cap) 5 mg PO BID@1200,1700 COUNT INCLUDES THE [facility] Last Admin: 01/14/22 17:06 Dose: 5 mg Fludrocortisone Acetate (Fludrocortisone 0.1 Mg Tab) 0.05 mg PO BID COUNT INCLUDES THE [facility] Last Admin: 01/14/22 12:33 Dose: 0.05 mg Folic Acid (Folic Acid 1 Mg Tab) 1 mg PO DAILY COUNT INCLUDES THE [facility] Last Admin: 01/14/22 10:30 Dose: 1 mg Furosemide (Furosemide 10 Mg/Ml 4 Ml Vial) 40 mg IV BID COUNT INCLUDES THE [facility] Last Admin: 01/14/22 12:23 Dose: 40 mg Hydromorphone HCl (Hydromorphone 0.5 Mg/0.5 Ml Syringe) 0.5 mg IVP Q4HR PRN PRN Reason: Pain Last Admin: 01/07/22 21:50 Dose: 0.5 mg Sodium Chloride (Saline 0.9%) 1,000 mls @ 10 mls/hr IV .Q24H COUNT INCLUDES THE [facility] Last Admin: 01/13/22 15:06 Dose: Not Given Parenteral Vitamin Supplement 10 ml/ Zinc/Copper/Manganese/Selenium 1 ml/ Amino Ac/Electrol/Dextrose/Calcium 1,011 mls @ 30 mls/hr IV .Q24H COUNT INCLUDES THE [facility] Stop: 01/14/22 17:59 Last Admin: 01/13/22 20:48 Dose: 30 mls/hr Parenteral Vitamin Supplement 10 ml/ Zinc/Copper/Manganese/Selenium 1 ml/ Sodium Chloride 10 meq/ Amino Ac/Electrol/Dextrose/Calcium 1,013.5 mls @ 60 mls/hr IV .BY DURATION COUNT INCLUDES THE [facility] Sodium Chloride 10 meq/ Amino (Ac/Electrol/Dextrose/Calcium) 1,002.5 mls @ 60 mls/hr IV .BY DURATION COUNT INCLUDES THE [facility] Norepinephrine Bitartrate 32 (mg/ Sodium Chloride) 250 mls @ 1.898 mls/hr IV .Q24H COUNT INCLUDES THE [facility]; Protocol Last Titration: 01/14/22 09:52 Dose: 0 mcg/kg/min, 0 mls/hr Piperacillin Sod/Tazobactam (Sod 3.375 gm/ Sodium Chloride) 100 mls @ 25 mls/hr IVPB Q8HR COUNT INCLUDES THE [facility]; Protocol Last Admin: 01/14/22 17:05 Dose: 25 mls/hr Albumin Human 50 ml/ IV (Solution) 50 mls @ 50 mls/hr IVPB Q1H COUNT INCLUDES THE [facility] Stop: 01/14/22 18:59 Last Admin: 01/14/22 17:15 Dose: 50 mls/hr Insulin Aspart (Insulin Aspart (Novolog) 100 Unit/Ml Vial) 0 unit SQ ACHS COUNT INCLUDES THE [facility]; Protocol Last Admin: 01/14/22 17:25 Dose: 8 unit Lidocaine HCl (Lidocaine 1% (10mg/Ml) For Iv Start) 0.1 ml INTRADERMA PER PROTOCOL PRN PRN Reason: IV Start Magnesium Oxide (Magnesium Oxide 400 Mg Tab) 400 mg PO TID COUNT INCLUDES THE [facility] Last Admin: 01/14/22 17:05 Dose: 400 mg Metoprolol Tartrate (Metoprolol Tartrate 25 Mg Tab) 25 mg PO BID@0800,1600 COUNT INCLUDES THE [facility] Last Admin: 01/14/22 17:13 Dose: Not Given Midodrine (Midodrine 5 Mg Tab) 10 mg PO AC-TID COUNT INCLUDES THE [facility] Last Admin: 01/14/22 17:05 Dose: 10 mg Miscellaneous Information (Phosphorus Replacement Protoco 1 Each Misc) 1 each MISCELLANE DAILY PRN; Protocol PRN Reason: Per Protocol Miscellaneous Information (Magnesium Replacement Protocol 1 Each Misc) 1 each MISCELLANE DAILY PRN; Protocol PRN Reason: Per Protocol Miscellaneous Information (Potassium Replacement Protocol 1 Each Misc) 1 each MISCELLANE DAILY PRN; Protocol PRN Reason: Per Protocol Multivitamins (Multivitamins, Thera 1 Each Tab) 1 each PO DAILY COUNT INCLUDES THE [facility] Last Admin: 01/14/22 10:30 Dose: 1 each Naloxone HCl (Naloxone 0.4 Mg/Ml 1 Ml Vial) 0.2 mg IV Q2M PRN PRN Reason: Opioid Reversal Ondansetron HCl (Ondansetron 4 Mg/2 Ml Vial) 4 mg IVP Q6HR PRN PRN Reason: Nausea And Vomiting Last Admin: 01/02/22 18:15 Dose: 4 mg Pantoprazole Sodium (Pantoprazole 40 Mg/10 Ml Vial) 40 mg IVP BID COUNT INCLUDES THE [facility] Last Admin: 01/14/22 10:36 Dose: 40 mg Sodium Chloride (Sodium Chloride 0.9% Flush 10 Ml Syringe) 10 ml IV Q4HR PRN PRN Reason: PICC Line Sodium Chloride (Sodium Chloride 0.9% Flush 10 Ml Syringe) 10 ml IV WEEKLY COUNT INCLUDES THE [facility] Sodium Chloride (Sodium Chloride 0.9% Flush 10 Ml Syringe) 20 ml IV Q4HR PRN PRN Reason: PICC Line Tamsulosin HCl (Tamsulosin 0.4 Mg Cap.Er.24h) 0.4 mg PO DAILY COUNT INCLUDES THE [facility] Last Admin: 01/14/22 10:08 Dose: 0.4 mg On examination: VITAL SIGNS: Afebrile, 100, 14, 80/56, 97% GENERAL APPEARANCE: Tired , lethargic, would answer occasional questions HEENT: Normal external appearance of nose and ear. Oral cavity normal EYES: Pupils equal. Conjunctiva normal. NECK: JVD unable to assess. Mass not palpable. RESPIRATORY: Respiratory effort increased. Decreased breath sounds to auscultation. CARDIOVASCULAR: First and second sounds normal. Some edema. ABDOMEN: Soft. Liver and spleen not palpable. No tenderness. No mass palpable. PSYCHIATRY: Answering occasional questions Muscular skeletal: Stage IV pressure ulcer left buttock. With wound VAC INVESTIGATIONS, reviewed in the clinical context: January 14: WBC 3.2 hemoglobin 9 at bedtime 114 potassium 3.9 creatinine 1.19 pro- calcitonin 0.28 albumin 1.6 CRP 5.5 January 13: White count 3.5 hemoglobin 10.4 platelets 95 January 12: WBC 4.5 hemoglobin 9.9 potassium 3.6 creatinine 1.2 to albumin 2.0 January 11: White count 5.6 hemoglobin 10.3 sodium 132 potassium 3.5 creatinine 1.24 January 10: Obesity 4.9 hemoglobin 8.4 platelets 137 sodium 137 potassium 3.3 creatinine 1.2 January 09: White count 5.6 hemoglobin 5.5 platelets 179 sodium 128 potassium 3.2 creatinine 1.25 albumin 2.2 LIVER: ULTRASOUND:. PRIOR CHOLECYSTECTOMY. COMPLEX AREA SEEN IN THE GALLBLADDER FOSSA. CONTAINING A FEW BUBBLES. CT abdomen: Persistent heterogenous hyperdense area in the hepatic parenchyma ad jacent to the gallbladder fossa. Limited 2-D echocardiogram: Home LV function. Ultrasound venous Doppler: Positive DVT right lower extremity. Assessment and plan: Severe hypotension and shock state requiring pressors, possible septic shock : Slow to respond Patient is back on levo fed. -Acute metabolic encephalopathy, multifactorial: Slow to respond -Complex liver collection adjacent to gallbladder fossa 2.7 cm Repeat computed tomography scan not suggestive of abscess/hematoma -Hyponatremia Follow labs -Persistent nausea and vomiting secondary to ileus,: Better -Acute right leg DVT Eliquis -Severe anorexia: Slow to respond On Marinol. Encourage oral intake -Dehydration and hypovolemia, improving -Unstageable chronic decubitus ulcer - wound VAC placement -Anemia of chronic diseases -Acute drop in hemoglobin from 10-5.5. Patient is on eliquis. -Hyperphosphatemia Supplement phosphorus -Essential Hypertension: Currently blood pressure running very low Decrease Lopressor to 25 mg twice a day. Hyperlipidemia -COPD DuoNeb 4 times a day -Chronic congestive heart failure with ejection fraction 55-60% On Lasix -Sinus tachycardia -Restless leg syndrome -BPH Flomax -Anorexia Marinol. -Chronic medical debility -Moderate protein calorie malnutrition from poor oral intake Patient is refusing tube feeding DO NOT RESUSCITATE Patient is again review of use any kind of 2 feeding. Discussed with the . And the patient. Also discussed Dr. Hawk. Will watch the patient over weekend. Hopefully discharge back ECF with possible hospice. Prognosis not good/severe hypoalbuminemia. I spent today about 45 minutes with over 25 minutes of discussion. Jeremiah wrap and Florinef added for blood pressure. Patient has not been getting the Lopressor.
[2022-01-14] MEDS: SODIUM CHLORIDE 0.9% 1,000 ML IV SCH (19:26)
[2022-01-14 21:09] LABS: Glucose,Whole Blood 116 mg/dL (70-110)
[2022-01-14] MEDS: 1: MVI, ADULT NO.4 WITH VIT K 10 ML, TRACE (CONC-1ML/DOSE) 1 ML, SODIUM CHLORIDE 4MEQ/ML IV SCH ×4 (22:20)
[2022-01-14] MEDS: NOREPINEPHRINE 32 MG in SODIUM CHLORIDE 0.9% 218 ML IV SCH (22:30)
--- NOTE | 2022-01-15 06:36 | P.PN ---
Subjective Progress Note Date: 01/14/22 Principal diagnosis: Possible abscess Patient is a 61-year-old male with multiple comorbidities including COPD diabetes hypertension in this patient who did have open cholecystectomy for gangrenous cholecystitis on 09/17/2021, subsequently admitted to the hospital for not eating and drinking and placement of a PEG tube patient also have a CT abdominal pelvis as well as ultrasound suspicious for fluid collection in the gallbladder fossa concerning for seroma versus abscess. On today's evaluation that is 01/14/2022, the patient denies any fever or chills, the patient blood pressure is borderline however the patient is off the pressor support, the patient is breathing comfortably on nasal cannula oxygen, the patient denies any chest pain shortness of breath , the patient denies any cough or sputum production, the patient denies abdominal pain and no diarrhea has been reported by the nursing staff Objective - Vital Signs Vital signs: Vital Signs Temp 97.7 F 01/14/22 04:00 Pulse 100 01/14/22 11:42 Resp 14 01/14/22 11:30 BP 80/56 01/14/22 11:30 Pulse Ox 97 01/14/22 11:30 FiO2 28 01/02/22 16:04 Intake & Output 01/13/22 01/14/22 01/14/22 18:59 06:59 18:59 Intake Total 1666 412.053 82.799 Output Total 720 1155 120 Balance 946 -742.947 -37.201 Weight 81 kg 81 kg Intake: IV 580 360 20 0.9 NACL 80 160 20 Magnesium Sulfate-D5w Pmx 200 1 gm In Dextrose/Water 1 100ml.bag @ 100 mls/hr IVPB Q1H ERINN Rx#: [id number] Potassium Chloride 10 meq 100 In Water For Injection 1 100ml.bag @ 100 mls/hr IVPB Q1H ERINN Rx#: [id number] Potassium Chloride 20 meq 100 100 In Water For Injection 1 100ml.bag @ 50 mls/hr IVPB Q2H ERINN Rx#: [id number] zosyn 100 100 Intake, IV Titration 12.053 2.799 Amount Norepinephrine 32 mg In 12.053 2.799 Sodium Chloride 0.9% 218 ml @ 0.05 MCG/KG/MIN 1. 898 mls/hr IV .Q24H ERINN Rx#:[id number] Oral 1086 40 60 Output: Urine 720 1155 120 Other: Voiding Method Indwelling Catheter ABP, PAP, CO, CI - Last Documented Arterial Blood Pressure 130/71 - Exam GENERAL DESCRIPTION: Middle-aged male lying in bed in no distress RESPIRATORY SYSTEM: Unlabored breathing , decreased breath sounds at bases HEART: S1 S2 regular rate and rhythm , ABDOMEN: Soft , no tenderness EXTREMITIES: One plus edema feet Sacral wound is covered with a wound VAC - Labs CBC & Chem 7: 01/14/22 10:30 01/14/22 10:20 Labs: Abnormal Lab Results - Last 24 Hours (Table) 01/13/22 01/13/22 01/14/22 Range/Units 15:08 21:00 10:20 WBC (3.8-10.6) k/uL RBC (4.30-5.90) m/uL Hgb (13.0-17.5) gm/dL Hct (39.0-53.0) % RDW (11.5-15.5) % Plt Count (150-450) k/uL Sodium 135 L 130 L (137-145) mmol/L Potassium 2.9 L (3.5-5.1) mmol/L Glucose 342 H (74-99) mg/dL POC Glucose (mg/dL) 197 H (70-110) mg/dL Calcium 6.8 L 7.1 L (8.4-10.2) mg/dL Alkaline Phosphatase 189 H (38-126) U/L C-Reactive Protein 5.5 H (<1.0) mg/dL Total Protein 3.4 L (6.3-8.2) g/dL Albumin 1.6 L 1.6 L (3.5-5.0) g/dL 01/14/22 01/14/22 Range/Units 10:30 11:38 WBC 3.2 L (3.8-10.6) k/uL RBC 3.11 L (4.30-5.90) m/uL Hgb 9.0 L (13.0-17.5) gm/dL Hct 28.2 L (39.0-53.0) % RDW 18.9 H (11.5-15.5) % Plt Count 114 L (150-450) k/uL Sodium (137-145) mmol/L Potassium (3.5-5.1) mmol/L Glucose (74-99) mg/dL POC Glucose (mg/dL) 206 H (70-110) mg/dL Calcium (8.4-10.2) mg/dL Alkaline Phosphatase (38-126) U/L C-Reactive Protein (<1.0) mg/dL Total Protein (6.3-8.2) g/dL Albumin (3.5-5.0) g/dL Assessment and Plan (1) Abnormal abdominal CT scan Current Visit: Yes Status: Acute Code(s): R93.5 - ABN FINDINGS ON DX IMAGING OF ABD REGIONS, INC RETROPERITON SNOMED Code(s): 29347464353648702 Plan: 1patient with abnormal CT as well as ultrasound of the liver gallbladder area concerning for possible fluid collection in the gallbladder. In this patient who did have a history of gangrenous cholecystitis s/p cholecystectomy on 09/17/2021 with concern for possible postop seroma versus abscess, patient was clinically not behaving as an abscess with no fever or elevated white count. 2detailed discussion with IR on 01/04/2022 and with high risk for any percutaneous intervention hence the right upper quadrant fluid was not drained 3 patient subsequently did have significant hypotension and has been transferred to ICU culture has been obtained which are negative so for 4-patient noticed to have significant drop in his hemoglobin with question of possible intra-abdominal/right upper quadrant bleed , CT was reviewed with radiologist collection in the gallbladder fossa seems like a hematoma and a spot significant increase in size the patient did have significant anasarca and did not mention any sacral destruction or erosion in this patient who did have a stage IV sacral pressure ulcer, patient hypotension more likely related to non- infectious etiology has been do not have any obvious focus of infection with negative culture and no fever on empiric Zosyn and monitor clinical course closely primary team to possible discuss hospice with the family Time with Patient: Less than 30
[2022-01-15 06:58] LABS: Glucose,Whole Blood 123 mg/dL (70-110)
[2022-01-15] MEDS: IPRATROPIUM-ALBUTEROL 3 ML NEB INHALATION SCH ×4 (07:33→20:27)
[2022-01-15 07:56] LABS: Calcium 7.3 mg/dL (8.4-10.2); Magnesium 1.9 mg/dL (1.6-2.3); Phosphorus 3.3 mg/dL (2.5-4.5)
[2022-01-15 08:28] LABS: Potassium 2.6 mmol/L (3.5-5.1)
--- NOTE | 2022-01-15 08:41 | P.PN ---
Subjective Patient is seen in follow-up for hyponatremia and acute kidney injury. Off vasopressors. On IV Lasix. Nonoliguric. Sodium level 135 today. On dysphagia 3 chopped diet. Oral intake is poor. Also on TPN. Renal function stable. Vital signs are stable. General: Awake. No acute distress. HEENT: Head exam is unremarkable. On nasal cannula. LUNGS: Breath sounds decreased. HEART: Regular rate and rhythm. ABDOMEN: Soft, no distention. EXTREMITITES: 1+ edema. Objective - Vital Signs Vital signs: Vital Signs Temp 98.0 F 01/15/22 04:00 Pulse 90 01/15/22 07:49 Resp 11 L 01/15/22 06:00 BP 86/56 01/15/22 06:00 Pulse Ox 94 L 01/15/22 06:00 FiO2 28 01/02/22 16:04 Intake & Output 01/14/22 01/15/22 01/15/22 18:59 06:59 18:59 Intake Total 882.799 Output Total 620 1350 Balance 262.799 -1350 Weight 81 kg Intake: IV 220 0.9 NACL 20 Albumin Human 25% 50 ml 100 In Empty Bag 1 bag @ 50 mls/hr IVPB Q1H ERINN Rx#: [id number] zosyn 100 Intake, IV Titration 2.799 Amount Norepinephrine 32 mg In 2.799 Sodium Chloride 0.9% 218 ml @ 0.05 MCG/KG/MIN 1. 898 mls/hr IV .Q24H ERINN Rx#:[id number] Oral 660 Output: Urine 620 1350 Other: Voiding Method Indwelling Catheter Indwelling Catheter # Bowel Movements 2 ABP, PAP, CO, CI - Last Documented Arterial Blood Pressure 130/71 - Labs CBC & Chem 7: 01/14/22 10:30 01/15/22 06:58 Labs: Abnormal Lab Results - Last 24 Hours (Table) 01/14/22 01/14/22 01/14/22 Range/Units 10:20 10:20 10:30 WBC 3.2 L (3.8-10.6) k/uL RBC 3.11 L (4.30-5.90) m/uL Hgb 9.0 L (13.0-17.5) gm/dL Hct 28.2 L (39.0-53.0) % RDW 18.9 H (11.5-15.5) % Plt Count 114 L (150-450) k/uL Sodium 130 L (137-145) mmol/L Potassium (3.5-5.1) mmol/L Glucose 342 H (74-99) mg/dL POC Glucose (mg/dL) (70-110) mg/dL Calcium 7.1 L (8.4-10.2) mg/dL C-Reactive Protein 5.5 H (<1.0) mg/dL Albumin 1.6 L (3.5-5.0) g/dL Procalcitonin 0.28 H (0.02-0.09) ng/mL 01/14/22 01/14/22 01/14/22 Range/Units 11:38 17:16 21:07 WBC (3.8-10.6) k/uL RBC (4.30-5.90) m/uL Hgb (13.0-17.5) gm/dL Hct (39.0-53.0) % RDW (11.5-15.5) % Plt Count (150-450) k/uL Sodium (137-145) mmol/L Potassium (3.5-5.1) mmol/L Glucose (74-99) mg/dL POC Glucose (mg/dL) 206 H 314 H 116 H (70-110) mg/dL Calcium (8.4-10.2) mg/dL C-Reactive Protein (<1.0) mg/dL Albumin (3.5-5.0) g/dL Procalcitonin (0.02-0.09) ng/mL 01/15/22 01/15/22 Range/Units 06:57 06:58 WBC (3.8-10.6) k/uL RBC (4.30-5.90) m/uL Hgb (13.0-17.5) gm/dL Hct (39.0-53.0) % RDW (11.5-15.5) % Plt Count (150-450) k/uL Sodium 135 L (137-145) mmol/L Potassium 2.6 L* (3.5-5.1) mmol/L Glucose (74-99) mg/dL POC Glucose (mg/dL) 123 H (70-110) mg/dL Calcium 7.3 L (8.4-10.2) mg/dL C-Reactive Protein (<1.0) mg/dL Albumin (3.5-5.0) g/dL Procalcitonin (0.02-0.09) ng/mL Assessment and Plan Plan: Assessment: 1. Acute kidney injury secondary to ATN secondary to hypotension/shock. Renal function stable. Nonoliguric. 2. Hyponatremia. Hypervolemic. Improved. 3. Shock. Possibly septic possible source gallbladder versus decubitus ulcer. On antibiotics. Off vasopressors. 4. Lower extremity edema. Improving with diuresis. 5. Metabolic acidosis secondary to acute kidney injury status post bicarb drip. Improved. On oral bicarbonate. 6. Hypokalemia from diuresis. Being replaced. Magnesium normal. 7. Acute blood loss anemia status post blood transfusion 01/09/2022. Stool for occult blood negative. C. diff negative. 8. Hypophosphatemia from poor intake. Replaced. Improved. Plan: Maintain IV Lasix 40 mg twice daily. Status post IV albumin 01/14/2022. Encouraged oral intake. Also receiving TPN. Status post Samsca 01/10/2022. Cortisol level not low. Ejection fraction normal.
[2022-01-15] MEDS: METOPROLOL TARTRATE 25 MG TAB PO SCH ×2 (08:56→16:44)
[2022-01-15 09:22] LABS: Glucose,Whole Blood 115 mg/dL (70-110)
[2022-01-15] MEDS: MIDODRINE 5 MG TAB PO SCH ×3 (09:22→16:49)
[2022-01-15] MEDS: PIPERACILLIN-TAZOBACTAM 3.375 GM in SODIUM CHLORIDE 0.9% 100 ML IVPB SCH ×3 (09:23→23:25)
[2022-01-15] MEDS: MAGNESIUM OXIDE 400 MG TAB PO SCH ×3 (09:24→23:00)
[2022-01-15] MEDS: FLUDROCORTISONE 0.1 MG TAB PO SCH ×2 (09:24→20:49)
[2022-01-15] MEDS: ASCORBIC ACID 500 MG TAB PO SCH (09:24)
[2022-01-15] MEDS: MULTIVITAMINS, THERA 1 EACH TAB PO SCH (09:24)
[2022-01-15] MEDS: TAMSULOSIN 0.4 MG CAP.ER.24H PO SCH (09:24)
[2022-01-15] MEDS: FOLIC ACID 1 MG TAB PO SCH (09:24)
[2022-01-15] MEDS: CHOLECALCIFEROL 25 MCG (1000 IU) TABLET PO SCH (09:25)
[2022-01-15] MEDS: PANTOPRAZOLE 40 MG/10 ML VIAL IVP SCH ×2 (09:25→20:49)
[2022-01-15] MEDS: POTASSIUM CHLORIDE 20 MEQ in WATER FOR INJECTION 1 100ML.BAG IVPB SCH ×6 (09:48→18:57)
[2022-01-15] MEDS: INSULIN ASPART (NovoLOG) 100 UNIT/ML VIAL SQ SCH ×4 (10:35→21:11)
--- NOTE | 2022-01-15 10:53 | P.PN ---
Subjective Progress Note Date: 01/15/22 Principal diagnosis: Septic shock, likely source is stage IV decubitus ulcer 01/10/2022, I'm seeing the patient for a follow-up. Clinically, the patient's condition is the same. Still lethargic and extremely weak and the patient is having significant amount of third spacing and edema in all 4 extremities. Yesterday, the patient received a total of 2 units of packed RBC with a hemoglobin of 5.7 the patient responded nicely and the hemoglobin today is up to 8.4. He is not showing any signs of bleeding. Eliquis was restarted. He is on Lasix 40 mg IV every 12 hours. The patient's urine output is gradually improving and the patient is in a negative fluid balance is in his had a hours a negative fluid balance of around 1.2 L at least till now. The patient has a weaned off the pressors. Norepinephrine is running at 0.08 mcg/kg per minute and the vasopressin is at the physiologic dose and this can be essentially discontinued for now. Urine output is excellent for now. The patient's BUN is a 13 with a creatinine of 1.2 and the sodium level of 137. He is currently on 2 L about 2 by nasal cannula. His white cell count of 4.9. Hemoglobin is at 8.4. Lethargic. Weak. Oral intake is quite diminished at this point in time. No major change clinically. Hemodynamically improved as the patient is nearly think the pressors and the patient is being diuresis for now. Reevaluated today on 01/11/22, patient remains in the ICU, presently on 2 L nasal cannula with O2 sats of 98%. Patient is still requiring norepinephrine at 0.15 mcg/kg/m patient remains on Lasix 40 mg IV push every 12 hours, and he had a - 1.57 L over the last 24 hours chest x-ray continues to show evidence of mild interstitial edema, his IV fluid is at 10 mL per hour. Today we recommended that we monitor the CVP and continue the Lasix. Patient seems to be frail and chronically ill. Not in respiratory distress. His WBC count is 5.6 hemoglobin 10.3 electrolytes are normal renal profile is normal, liver profile is unremarkable and albumin is low at 2.2 chest x-ray is showing improvement in his interstitial edema Patient was reevaluated today on 01/12/2022, remains in the ICU, remains hypotensive requiring small dose of norepinephrine at 0.08 mcg/kg/m patient is on IV fluid at KVO remains on diuretics remains on antibiotics he is alert, oriented 3, he is on room air with O2 sats of 99%. He is very weak and bed bound for the last few months. Patient was supposed to have CT of the abdomen, however I did not feel the need or and urgency for a CT of the abdomen since his clinical findings are benign, his abdomen is nonsurgical and I went ahead and canceled the CT of the abdomen which is scheduled to be done today. Patient did not receive a PEG tube mostly because he is eating on his own, but the amount seems to be very small. WBC count today is 4.5, global is 9.9 electrolytes are normal renal profile showed a creatinine 1.22. 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 Reevaluated today on 01/13/22, patient remains in the ICU, steadily improving, and he is off norepinephrine at present. Patient is not requiring any hemodynamic support. He is on room air, and does not seem to be in any distress. He is however generally weak. And remains nonoliguric. Responds well to Lasix were given. Hemoglobin is holding at 10.4, it was 9.9 yesterday. Patient received a total of 3 units of packed RBCs since his admission. WBC 3.5 hemoglobin is 10.4. Last BUN yesterday was 14 creatinine 1.2 to which is basically the same compared to the last few days. Chest x-ray today showed no major change, continues to have bilateral haziness and pulmonary vascular congestion, nonetheless the patient has no evidence of any pulmonary symptoms and he is on room air Patient was reevaluated today on 01/14/2022, remains in the ICU, yesterday the patient had to be placed back on norepinephrine. However he is off norepinephrine this morning, and the patient remains laying in bed, in no distress, on room air, and his O2 sats is 99%. Remains on Zosyn, his also on Lasix and albumin as per nephrology on the case, renal functioning is back to normal almost. Patient is off norepinephrine this morning, and I plan to transfer the patient again out of the ICU. He will eventually need physical therapy, and ECF placement. Patient has not been out of bed for almost over 6 months. WBC count is 3.2 hemoglobin is 9 electrolytes are normal BUN is 13 and creatinine 1.19. Reevaluated today on 01/16/20, patient is now in the ICU as an overflow. Remains on room air remains on TPN in spite of minimal oral intake continues to have good urine output feels generally weak, but not short of breath potassium is low at 2.6 today and that was corrected by nephrology on the case. Renal functioning is significantly improved. CBC is relatively normal, basic metabolic profile is normal except for low potassium of 2.6. Objective - Vital Signs Vital signs: Vital Signs Temp 97.9 F 01/15/22 09:00 Pulse 96 01/15/22 10:00 Resp 15 01/15/22 10:00 BP 87/49 01/15/22 09:00 Pulse Ox 95 01/15/22 10:00 FiO2 28 01/02/22 16:04 Intake & Output 01/14/22 01/15/22 01/15/22 18:59 06:59 18:59 Intake Total 882.799 Output Total 620 1350 Balance 262.799 -1350 Weight 81 kg Intake: IV 220 0.9 NACL 20 Albumin Human 25% 50 ml 100 In Empty Bag 1 bag @ 50 mls/hr IVPB Q1H ERINN Rx#: [id number] zosyn 100 Intake, IV Titration 2.799 Amount Norepinephrine 32 mg In 2.799 Sodium Chloride 0.9% 218 ml @ 0.05 MCG/KG/MIN 1. 898 mls/hr IV .Q24H ERINN Rx#:[id number] Oral 660 Output: Urine 620 1350 Other: Voiding Method Indwelling Catheter Indwelling Catheter # Bowel Movements 2 ABP, PAP, CO, CI - Last Documented Arterial Blood Pressure 130/71 - Exam GENERAL APPEARANCE: 61-year-old in no distress on room air Head: Atraumatic, normocephalic. HEENT: PERRLA, EOMI, nonicteric. EYES: Pupils equal. Conjunctiva normal. NECK: No JVD no neck masses no stridor RESPIRATORY: Diminished breath sounds at the bases no rhonchi no wheezes CARDIOVASCULAR: Normal S1 and S2, no gallops, no murmur ABDOMEN: Obese, Soft nontender no megaly no rebound no guarding.. PSYCHIATRY: Normal mood, normal affect, appropriate mental status. Muscular skeletal: Stage IV pressure ulcer left buttock. With wound VAC Extremities: 1+ bipedal edema, tenderness throughout both lower extremities. Good pulses bilaterally - Labs CBC & Chem 7: 01/14/22 10:30 01/15/22 06:58 Labs: Abnormal Lab Results - Last 24 Hours (Table) 01/14/22 01/14/22 01/14/22 Range/Units 10:20 10:20 10:30 WBC 3.2 L (3.8-10.6) k/uL RBC 3.11 L (4.30-5.90) m/uL Hgb 9.0 L (13.0-17.5) gm/dL Hct 28.2 L (39.0-53.0) % RDW 18.9 H (11.5-15.5) % Plt Count 114 L (150-450) k/uL Sodium 130 L (137-145) mmol/L Potassium (3.5-5.1) mmol/L Glucose 342 H (74-99) mg/dL POC Glucose (mg/dL) (70-110) mg/dL Calcium 7.1 L (8.4-10.2) mg/dL C-Reactive Protein 5.5 H (<1.0) mg/dL Albumin 1.6 L (3.5-5.0) g/dL Procalcitonin 0.28 H (0.02-0.09) ng/mL 01/14/22 01/14/22 01/14/22 Range/Units 11:38 17:16 21:07 WBC (3.8-10.6) k/uL RBC (4.30-5.90) m/uL Hgb (13.0-17.5) gm/dL Hct (39.0-53.0) % RDW (11.5-15.5) % Plt Count (150-450) k/uL Sodium (137-145) mmol/L Potassium (3.5-5.1) mmol/L Glucose (74-99) mg/dL POC Glucose (mg/dL) 206 H 314 H 116 H (70-110) mg/dL Calcium (8.4-10.2) mg/dL C-Reactive Protein (<1.0) mg/dL Albumin (3.5-5.0) g/dL Procalcitonin (0.02-0.09) ng/mL 01/15/22 01/15/22 01/15/22 Range/Units 06:57 06:58 09:19 WBC (3.8-10.6) k/uL RBC (4.30-5.90) m/uL Hgb (13.0-17.5) gm/dL Hct (39.0-53.0) % RDW (11.5-15.5) % Plt Count (150-450) k/uL Sodium 135 L (137-145) mmol/L Potassium 2.6 L* (3.5-5.1) mmol/L Glucose (74-99) mg/dL POC Glucose (mg/dL) 123 H 115 H (70-110) mg/dL Calcium 7.3 L (8.4-10.2) mg/dL C-Reactive Protein (<1.0) mg/dL Albumin (3.5-5.0) g/dL Procalcitonin (0.02-0.09) ng/mL Assessment and Plan Assessment: Impression: Septic shock, most likely source is stage IV decubitus ulcer Acute metabolic encephalopathy secondary to sepsis History of gangrenous cholecystitis requiring surgery History of DVT, on anticoagulation therapy Stage IV decubitus ulcer with wound VAC. Hypoalbuminemia. Non-anion gap metabolic acidosis. Improved. Type 2 diabetes. Chronic bronchial asthma doesn't list stable. Obstructive sleep apnea syndrome. Benign essential hypertension. Dyslipidemia. Medical debility. Patient has been bedbound for almost 6 months Chronic anemia Recommendation: Discussed his condition with Dr. Nelson history over the phone and the plan is to consider sending the patient to ECF on Monday and seriously consider hospice. Continue oral feeding/Nutritional support. Patient is also on TPN since he is not meeting his caloric requirement GI prophylaxis. Continue anticoagulation therapy for DVT. Continue Zosyn for now CODE STATUS/DO NOT RESUSCITATE. Time with Patient: Less than 30
[2022-01-15 11:37] LABS: Glucose,Whole Blood 186 mg/dL (70-110)
[2022-01-15] MEDS: FUROSEMIDE 10 MG/ML 4 ML VIAL IV SCH ×2 (12:55→20:49)
--- NOTE | 2022-01-15 15:10 | P.PN ---
Progress Note - Text Progress Note Date: 01/15/22 Hospital course: this is a pleasant 61 yo M with past medical history of COPD, Diabetes Mellitus, Deep Vein Thrombosis, Hyperlipidemia, Hypertension, Sleep Apnea/CPAP/BIPAP He was in the hospital on 09/2021 for severe hypertension from decreased oral intake, acute metabolic encephalopathy, chronic congestive heart failure, diastolic with ejection fraction 55-60%, acute kidney injury, sinus tachycardia, status post cholecystectomy for his gangrenous cholecystitis, restless leg syndrome, BPH, chronic medical debility i talkled to the pt and at bed side , [facility] , [facility] June [facility]. At that time she was in the hospital for acute hypoxic respiratory failure of unknown causes. He needed intubation at that time. He had complete opacification in the left hemithorax he had 2 bronchoscopy done which was negative for microbial growth. He has another admission on 09/2021. Patient and states that he came here because he wanted to get the PEG tube because he was not eating anything since June and he lost a lot of weight he used to weigh 333 pounds and now 193. He states that his main issue is no appetite, he denies choking but he has sometimes nausea that prevent him from eating. Is also short of breath with cough and clear yellow phlegm but no chest pain, no abdominal pain. He has loose bowel movement once or twice a week. Also he has unstageable pressure decubitus ulcer status post debridement, he has wound VAC in place. Patient also complaining of from chronic left leg pain and tenderness, he would not allow someone to drop his leg because it hurts a lot. Inspection looks normal, no trauma. Also was complaining from weakness in both lower extremities since June Patient is tachycardic around 110, on admission heart rate was 125 afebrile. His lab reviewed including CBC showed mild anemia of 11.9, rest of CBC is un remarkable. INR is unremarkable at 1.1. Sodium was low at 123. Creatinine normal 0.8. Glucose was low at 66. Chest x-ray: No acute process. 01/02/2022 Last night patient was started on therapeutic dose Lovenox for acute right leg DVT, CT angiography chest and echo could not be done because have no IV access, patient was transferred to a small IV access was obtained in the right upper arm, not good enough for CT of the chest test or aggressive treatment. However IV fluids could be provided. Blood pressure is improved up to 110/68, however patient still tachycardic. Patient could not eat because of severe nausea and vomiting, H time he put something in his monthly follow-up as per bedside nurse, KUB showing some evidence of ileus, surgical team consult obtained. Social evaluation under direct consults are pending. 01/03/2022 Patient awake alert, looks more comfortable than the first taken to the hospital, less tachypneic, he denies any chest pain or abdominal pain. He tried to take small bites of mashed potato yesterday and he could not consume it and he immediately felt to throw up. CT of the chest is negative for PE, he remains on Lovenox for acute right DVT. CT of the abdomen is suspicious for a complex collection possible abscess although it's the size 5 cm diameter 2.7 cm, recommended ultrasound versus MRI, were going to order a liver ultrasound although it is of less sensitivity especially with this patient large body habitus however it is less invasive than MRI. Also flowcalcitonin is the slightly elevated. He is slightly tachycardic although is better than before. Blood pressure 93/63. Today sodium dropped 127 down to 122 because of this we held his IV fluids and reordered anemia workup in the urine and the serum, we will monitor his sodium level tomorrow if no improvement and may consider further workup. Surgical team consult is called, the plan for PEG tube placement on . Patient originally came to the hospital the PEG tube placement. Patient is not consuming his oral medication but we stopped his gabapentin and ropinirole. 01/04/2022 Kirsten Bach feels better today, he does not feel dizziness while he is lying in bed all the time. He still have low appetite but no chest pain or dyspnea, no abdominal pain. He still complaining from pain in his legs and he has right leg DVT been on Lovenox with plan to switch him to heparin drip on today as he got midline Blood pressure is 87/56, heart rate 120, sodium is 121 On admission his sodium was still low and was started on D5 normal saline at 100 mL/h however after initial improvement sodium dropped to 121 yesterday so we held his IV fluid and the evening sodium improved 124 (no iv lasix given), however this morning is 121 again. We send urine studies and I'll consult pin or clip fastener. Also patient has negative CTPA for pulmonary embolism but CT of the abdomen and pelvis showing possible gallbladder fossa abscess or complex fluid collection although it is improved from previous 5 cm down to 2.7 centimeters. The recommended liver ultrasound versus MRI, ultrasound shows the same findings. Also surgery due on the case 01/05/2022 Last night his blood pressure dropped with systolic and 50s, there was a rapid response a team response and he was as stated with IV fluids aggressively, his blood pressure improved in 90s this morning and during the round he was awake and alert looks tired but is appropriate. Sodium was 121 and then 119. He denied any chest pain or abdominal pain, no other complaints clinically. His losing from his puncture wound in the right lower abdomen was a stopped, he was started on heparin drip per recommendation of hospice chaplain. After once by the evening time his blood pressure dropped again was 53/32 with altered mental status, there was another rapid response where patient was transferred to the ICU and levophed was started and his mentation started to improve again. Patient was started also on antibiotic empirically with Zosyn and IV vancomycin total infection ruled out completely as there is still high suspicion, with possible sources including the pressure wound sacral ulcer in the lower back, and less likely the gallbladder bed and fossa with 2.7 cm fluid collection (felt less likely because actually it decreased in size from 5.0 cm previously) After transfer patient and at bedside opted for the DO NOT RESUSCITATE order as per bedside nurse. 01/06/2022 Yesterday patient was still deteriorating, however today patient turned around and start improving patient remains in the ICU he needs to pressors we will fit and vasopressin, lactic acid trending up 6.4. Patient mentation is also deteriorated and become more confused and less responsive. His creatinine remains around 1 although he has low urine output. Patient is resuscitated with many fluids and also his broad-spectrum antibiotics with IV vancomycin and Zosyn, as septic shock is highly suspected is the cause of the patient profound hypotension and shock state. Although other factors might be contributing to it. Because of this we started the patient on hydrocortisone to increase the sensitivity of the adrenergic receptors to the catecholamine. Also replacing electrolytes including calcium and magnesium. Sodium slightly trending up. Patient remains in critical condition. Family at bedside 01/07/2022 Patient today workup and he was awake alert and oriented 3, he follows commands, he feels hungry and actually he started tolerating diet for the first time after several months. He denies any respiratory symptoms, his abdomen looks benign, no other new complaints. Blood pressure is improving and he required less pressors, currently blood pressure is 87/61, is less tachycardic around 110. He is currently on levophed 0.03 which is decreased from yesterday. Last night we added hydrocortisone 100 mg 3 times a day as a replacement therapy but to support blood pressure and increased sensitivity of levophed to its adrenergic receptors. Since blood pressure improvement with lower dose to 50 mg today, possibly we will discontinue it in one or 2 days once blood pressure keep improvement. Also patient receiving fluids. Labs looks stable, hemoglobin 9.8, sodium 126 he remains on Zosyn, vancomycin was discontinued. He remains on Zosyn. Anticoagulation is switched to Eliquis therapeutic dose at 10 mg which could be switched to 5 mg on 01/17. Prognosis remains guarded 01/08/2022 Patient is awake but drowsy, His blood pressure is improving but he still on pressors although is requiring less amount He has poor urine output but creatinine is around 1.1. His GFR is 66. He is going to receive 1 dose of Lasix 80 mg today. Also significant sodium bicarb and albumin infusion. He remains on Zosyn Anticoagulation with Eliquis January 09 2022: I assumed care of patient today. ICU: Tired. Lethargic. Patient drips include vasopressin and norepinephrine. the bedside. Getting 2 units of PRBC. Received IV albumin yesterday. Also received some IV diuretics. 2 L nasal cannula. Hemoglobin 5.5 today. On IV Zosyn. Wound VAC. On clear liquids. 01/10/2022: ICU: Remains in bed. Tired. Lethargic. Following simple commands. On IV levo fed. IV Zosyn. Discussed with at the bedside. Eating small amounts. Receive 2 units of blood yesterday. 01/11/2022: ICU: Tired lethargic. at the bedside. IV levo fed. Poor oral intake. Discussed with Dr. Dong from ID. Rule out right upper quadrant abscess versus infected hematoma. Computed tomography scan with contrast ordered. 01/12/2022: ICU: Drip planning a bit. But more awake. Answers simple questions. Poor oral intake. Discussed with the patient. Refuses PEG tube. present. Computed tomography scan abdomen canceled by Dr. Chow. BP is running on the lower side. Decrease Lopressor to 25 mg twice a day. 01/13/2022: ICU: Remains tired lethargic. TPN lipids ordered by pulmonary. Spoke to the patient and at the bedside. Patient refuses NG tube feeding. Did also inform them that sleep 2 first consequences including . No changing his mind. Spoke to the at the bedside. She'll have a brother come in and talked with the patient again. Computed tomography scan abdomen results discussed with the radiologist. Right upper quadrant no obvious abscess or hematoma. A lot of fluids/third spacing. 01/14/2022: ICU: Tired. I again spoke to the and the patient. Does not want to feeding of any sorts. Has TPN lipids running. Also discussed that this is very temporary. Blood pressure running low. Jeremiah wrap ordered with Denise. Prognosis poor. Also discussed with Dr. Hawk from pulmonary. Patient was placed on levo fed last night. 01/15/2022: ICU: Remains diet. A bit more awake. present. Again spoke to patient and the at the bedside. He does not want any PEG tube or NG tube feeding. Getting TPN lipids. I again explained poor prognosis. Including . Active Medications Hydrocodone Bitart/Acetaminophen (Hydrocodone/Apap 5-325mg 1 Each Tab) 1 each PO Q6HR PRN PRN Reason: Pain Last Admin: 01/08/22 13:23 Dose: 1 each Albuterol Sulfate (Albuterol Nebulized 2.5 Mg/3 Ml) 2.5 mg INHALATION Q2H PRN PRN Reason: AIRWAY PATENCY Last Admin: 12/31/21 21:36 Dose: 2.5 mg Albuterol/Ipratropium (Ipratropium-Albuterol 3 Ml Neb) 3 ml INHALATION RT-QID [facility] Last Admin: 01/15/22 11:33 Dose: 3 ml Ascorbic Acid (Ascorbic Acid 500 Mg Tab) 1,000 mg PO DAILY@0800 [facility] Last Admin: 01/15/22 09:24 Dose: 1,000 mg Cholecalciferol (Cholecalciferol 25 Mcg (1000 Iu) Tablet) 25 mcg PO DAILY [facility] Last Admin: 01/15/22 09:25 Dose: 25 mcg Dronabinol (Dronabinol 2.5 Mg Cap) 5 mg PO BID@1200,1700 [facility] Last Admin: 01/15/22 12:38 Dose: 5 mg Fludrocortisone Acetate (Fludrocortisone 0.1 Mg Tab) 0.05 mg PO BID [facility] Last Admin: 01/15/22 09:24 Dose: 0.05 mg Folic Acid (Folic Acid 1 Mg Tab) 1 mg PO DAILY [facility] Last Admin: 01/15/22 09:24 Dose: 1 mg Furosemide (Furosemide 10 Mg/Ml 4 Ml Vial) 40 mg IV BID [facility] Last Admin: 01/15/22 12:55 Dose: 40 mg Hydromorphone HCl (Hydromorphone 0.5 Mg/0.5 Ml Syringe) 0.5 mg IVP Q4HR PRN PRN Reason: Pain Last Admin: 01/07/22 21:50 Dose: 0.5 mg Sodium Chloride (Saline 0.9%) 1,000 mls @ 10 mls/hr IV .Q24H [facility] Last Admin: 01/14/22 19:26 Dose: Not Given Norepinephrine Bitartrate 32 (mg/ Sodium Chloride) 250 mls @ 1.898 mls/hr IV .Q24H [facility]; Protocol Last Admin: 01/14/22 22:30 Dose: Not Given Piperacillin Sod/Tazobactam (Sod 3.375 gm/ Sodium Chloride) 100 mls @ 25 mls/hr IVPB Q8HR [facility]; Protocol Last Admin: 01/15/22 09:23 Dose: 25 mls/hr Potassium Chloride 20 meq/ IV (Solution) 100 mls @ 50 mls/hr IVPB Q2H [facility] Stop: 01/15/22 17:00 Last Admin: 01/15/22 14:04 Dose: 50 mls/hr Parenteral Vitamin Supplement 10 ml/ Zinc/Copper/Manganese/Selenium 1 ml/ Sodium Chloride 10 meq/ Potassium Chloride 20 meq/ Amino Ac/Electrol/Dextrose/Calcium 1,023.5 mls @ 60 mls/hr IV .BY DURATION [facility] Sodium Chloride 10 meq/Potassium Chloride 20 meq/Amino Ac/Electrol/Dextrose/Calcium 1,012.5 mls @ 60 mls/hr IV .BY DURATION [facility] Insulin Aspart (Insulin Aspart (Novolog) 100 Unit/Ml Vial) 0 unit SQ ACHS [facility]; Protocol Last Admin: 01/15/22 12:38 Dose: 3 unit Lidocaine HCl (Lidocaine 1% (10mg/Ml) For Iv Start) 0.1 ml INTRADERMA PER PROTOCOL PRN PRN Reason: IV Start Magnesium Oxide (Magnesium Oxide 400 Mg Tab) 400 mg PO TID [facility] Last Admin: 01/15/22 09:24 Dose: 400 mg Metoprolol Tartrate (Metoprolol Tartrate 25 Mg Tab) 25 mg PO BID@0800,1600 [facility] Last Admin: 01/15/22 08:56 Dose: Not Given Midodrine (Midodrine 5 Mg Tab) 10 mg PO AC-TID [facility] Last Admin: 01/15/22 12:38 Dose: 10 mg Miscellaneous Information (Phosphorus Replacement Protoco 1 Each Misc) 1 each MISCELLANE DAILY PRN; Protocol PRN Reason: Per Protocol Miscellaneous Information (Magnesium Replacement Protocol 1 Each Misc) 1 each MISCELLANE DAILY PRN; Protocol PRN Reason: Per Protocol Miscellaneous Information (Potassium Replacement Protocol 1 Each Misc) 1 each MISCELLANE DAILY PRN; Protocol PRN Reason: Per Protocol Multivitamins (Multivitamins, Thera 1 Each Tab) 1 each PO DAILY [facility] Last Admin: 01/15/22 09:24 Dose: 1 each Naloxone HCl (Naloxone 0.4 Mg/Ml 1 Ml Vial) 0.2 mg IV Q2M PRN PRN Reason: Opioid Reversal Ondansetron HCl (Ondansetron 4 Mg/2 Ml Vial) 4 mg IVP Q6HR PRN PRN Reason: Nausea And Vomiting Last Admin: 01/02/22 18:15 Dose: 4 mg Pantoprazole Sodium (Pantoprazole 40 Mg/10 Ml Vial) 40 mg IVP BID [facility] Last Admin: 01/15/22 09:25 Dose: 40 mg Sodium Chloride (Sodium Chloride 0.9% Flush 10 Ml Syringe) 10 ml IV Q4HR PRN PRN Reason: PICC Line Sodium Chloride (Sodium Chloride 0.9% Flush 10 Ml Syringe) 10 ml IV WEEKLY [facility] Sodium Chloride (Sodium Chloride 0.9% Flush 10 Ml Syringe) 20 ml IV Q4HR PRN PRN Reason: PICC Line Tamsulosin HCl (Tamsulosin 0.4 Mg Cap.Er.24h) 0.4 mg PO DAILY [facility] Last Admin: 01/15/22 09:24 Dose: 0.4 mg On examination: VITAL SIGNS: 97.9, 96, 16, 87/49, 97% room air GENERAL APPEARANCE: Tired , bit more awake today, HEENT: Normal external appearance of nose and ear. Oral cavity normal EYES: Pupils equal. Conjunctiva normal. NECK: JVD unable to assess. Mass not palpable. RESPIRATORY: Respiratory effort increased. Decreased breath sounds to auscultation. CARDIOVASCULAR: First and second sounds normal. Some edema. ABDOMEN: Soft. Liver and spleen not palpable. No tenderness. No mass palpable. PSYCHIATRY: Answering occasional questions Muscular skeletal: Stage IV pressure ulcer left buttock. With wound VAC INVESTIGATIONS, reviewed in the clinical context: January 15: Potassium 2.6 creatinine 1.19 January 14: WBC 3.2 hemoglobin 9 at bedtime 114 potassium 3.9 creatinine 1.19 pro- calcitonin 0.28 albumin 1.6 CRP 5.5 January 13: White count 3.5 hemoglobin 10.4 platelets 95 January 12: WBC 4.5 hemoglobin 9.9 potassium 3.6 creatinine 1.2 to albumin 2.0 January 11: White count 5.6 hemoglobin 10.3 sodium 132 potassium 3.5 creatinine 1.24 January 10: Obesity 4.9 hemoglobin 8.4 platelets 137 sodium 137 potassium 3.3 creatinine 1.2 January 09: White count 5.6 hemoglobin 5.5 platelets 179 sodium 128 potassium 3.2 creatinine 1.25 albumin 2.2 LIVER: ULTRASOUND:. PRIOR CHOLECYSTECTOMY. COMPLEX AREA SEEN IN THE GALLBLADDER FOSSA. CONTAINING A FEW BUBBLES. CT abdomen: Persistent heterogenous hyperdense area in the hepatic parenchyma adjacent to the gallbladder fossa. Limited 2-D echocardiogram: Home LV function. Ultrasound venous Doppler: Positive DVT right lower extremity. Assessment and plan: Severe hypotension and shock state requiring pressors, possible septic shock : Slow to respond on levo fed. -Acute metabolic encephalopathy, multifactorial: Slow to respond -Complex liver collection adjacent to gallbladder fossa 2.7 cm Repeat computed tomography scan not suggestive of abscess/hematoma -Hyponatremia: Better Follow labs -Severe hypokalemia Replacementof -Persistent nausea and vomiting secondary to ileus,: Better -Acute right leg DVT Eliquis -Severe anorexia: Slow to respond On Marinol. Encourage oral intake -Dehydration and hypovolemia, improving -Unstageable chronic decubitus ulcer - wound VAC placement -Anemia of chronic diseases -Acute drop in hemoglobin from 10-5.5. Patient is on eliquis. -Hyperphosphatemia Supplement phosphorus -Essential Hypertension: Currently blood pressure running very low Decrease Lopressor to 25 mg twice a day. Hyperlipidemia -COPD DuoNeb 4 times a day -Chronic congestive heart failure with ejection fraction 55-60% On Lasix -Sinus tachycardia -Restless leg syndrome -BPH Flomax -Anorexia Marinol. -Chronic medical debility -Moderate protein calorie malnutrition from poor oral intake Patient is repeatedly refusing tube feeding. On TPN and lipids DO NOT RESUSCITATE TPN and lipids. Again spoke to the patient and . Patient does not want NG tube or PEG tube feeding. Other medications to continue. Prognosis poor. Because of low blood pressure has not been getting the Lopressor. On IV Lasix
[2022-01-15 16:26] LABS: Glucose,Whole Blood 93 mg/dL (70-110)
[2022-01-15] MEDS: 1: MVI, ADULT NO.4 WITH VIT K 10 ML, TRACE (CONC-1ML/DOSE) 1 ML, SODIUM CHLORIDE 4MEQ/ML IV SCH ×9 (16:43→17:57)
[2022-01-15] MEDS: SODIUM CHLORIDE 0.9% 1,000 ML IV SCH (16:48)
--- NOTE | 2022-01-15 20:18 | P.PN ---
Subjective Progress Note Date: 01/15/22 Principal diagnosis: Possible abscess Patient is a 61-year-old male with multiple comorbidities including COPD diabetes hypertension in this patient who did have open cholecystectomy for gangrenous cholecystitis on 09/17/2021, subsequently admitted to the hospital for not eating and drinking and placement of a PEG tube patient also have a CT abdominal pelvis as well as ultrasound suspicious for fluid collection in the gallbladder fossa concerning for seroma versus abscess. On today's evaluation that is 01/15/2022, the patient continues to be afebrile, the patient blood pressure is borderline however the patient is off the pressor support, the patient is breathing comfortably on nasal cannula oxygen, the patient denies chest pain shortness of breath did have occasional cough but no sputum production, the patient denies abdominal pain and no diarrhea has been reported by the nursing staff , and the nursing staff patient did have a more ulceration to the sacral area Objective - Vital Signs Vital signs: Vital Signs Temp 97.9 F 01/15/22 09:00 Pulse 96 01/15/22 10:00 Resp 15 01/15/22 10:00 BP 87/49 01/15/22 09:00 Pulse Ox 95 01/15/22 10:00 FiO2 28 01/02/22 16:04 Intake & Output 01/14/22 01/15/22 01/15/22 18:59 06:59 18:59 Intake Total 882.799 Output Total 620 1350 Balance 262.799 -1350 Weight 81 kg Intake: IV 220 0.9 NACL 20 Albumin Human 25% 50 ml 100 In Empty Bag 1 bag @ 50 mls/hr IVPB Q1H [facility] Rx#: [id number] zosyn 100 Intake, IV Titration 2.799 Amount Norepinephrine 32 mg In 2.799 Sodium Chloride 0.9% 218 ml @ 0.05 MCG/KG/MIN 1. 898 mls/hr IV .Q24H [facility] Rx#:[id number] Oral 660 Output: Urine 620 1350 Other: Voiding Method Indwelling Catheter Indwelling Catheter # Bowel Movements 2 ABP, PAP, CO, CI - Last Documented Arterial Blood Pressure 130/71 - Exam GENERAL DESCRIPTION: Middle-aged male lying in bed in no distress RESPIRATORY SYSTEM: Unlabored breathing , decreased breath sounds at bases HEART: S1 S2 regular rate and rhythm , ABDOMEN: Soft , no tenderness EXTREMITIES: One plus edema feet Sacral wound is covered with a wound VAC, patient did have evidence of more necrotic area and maceration to the sacral area - Labs CBC & Chem 7: 01/14/22 10:30 01/15/22 16:22 Labs: Abnormal Lab Results - Last 24 Hours (Table) 01/14/22 01/14/22 01/14/22 Range/Units 10:20 10:30 11:38 WBC 3.2 L (3.8-10.6) k/uL RBC 3.11 L (4.30-5.90) m/uL Hgb 9.0 L (13.0-17.5) gm/dL Hct 28.2 L (39.0-53.0) % RDW 18.9 H (11.5-15.5) % Plt Count 114 L (150-450) k/uL Sodium (137-145) mmol/L Potassium (3.5-5.1) mmol/L POC Glucose (mg/dL) 206 H (70-110) mg/dL Calcium (8.4-10.2) mg/dL Procalcitonin 0.28 H (0.02-0.09) ng/mL 01/14/22 01/14/22 01/15/22 Range/Units 17:16 21:07 06:57 WBC (3.8-10.6) k/uL RBC (4.30-5.90) m/uL Hgb (13.0-17.5) gm/dL Hct (39.0-53.0) % RDW (11.5-15.5) % Plt Count (150-450) k/uL Sodium (137-145) mmol/L Potassium (3.5-5.1) mmol/L POC Glucose (mg/dL) 314 H 116 H 123 H (70-110) mg/dL Calcium (8.4-10.2) mg/dL Procalcitonin (0.02-0.09) ng/mL 01/15/22 01/15/22 Range/Units 06:58 09:19 WBC (3.8-10.6) k/uL RBC (4.30-5.90) m/uL Hgb (13.0-17.5) gm/dL Hct (39.0-53.0) % RDW (11.5-15.5) % Plt Count (150-450) k/uL Sodium 135 L (137-145) mmol/L Potassium 2.6 L* (3.5-5.1) mmol/L POC Glucose (mg/dL) 115 H (70-110) mg/dL Calcium 7.3 L (8.4-10.2) mg/dL Procalcitonin (0.02-0.09) ng/mL Assessment and Plan (1) Abnormal abdominal CT scan Current Visit: Yes Status: Acute Code(s): R93.5 - ABN FINDINGS ON DX IMAGING OF ABD REGIONS, INC RETROPERITON SNOMED Code(s): 87912825364327585 Plan: 1patient with abnormal CT as well as ultrasound of the liver gallbladder area concerning for possible fluid collection in the gallbladder. In this patient who did have a history of gangrenous cholecystitis s/p cholecystectomy on 09/17/2021 with concern for possible postop seroma versus abscess, patient was clinically not behaving as an abscess with no fever or elevated white count. 2detailed discussion with IR on 01/04/2022 and with high risk for any percutaneous intervention hence the right upper quadrant fluid was not drained 3 patient subsequently did have significant hypotension and has been transferred to ICU , blood culture has been obtained which are negative so for 4-patient recent abdominal pelvis CT was reviewed with radiologist collection in the gallbladder fossa seems like a hematoma and a spot significant increase in size the patient did have significant anasarca and did not mention any sacral destruction or erosion in this patient who did have a stage IV sacral pressure ulcer 5- patient hypotension more likely related to non-infectious etiology as the patient do not have any obvious focus of infection with negative culture and no fever on empiric Zosyn, patient noticed to have multiple areas of deep tissue injury to the sacral area which should be treated with a skin barrier cream keep the area off the pressure with frequent changing the position discussed with the nursing staff Time with Patient: Less than 30
[2022-01-15 21:03] LABS: Glucose,Whole Blood 125 mg/dL (70-110)
[2022-01-15] MEDS: NOREPINEPHRINE 32 MG in SODIUM CHLORIDE 0.9% 218 ML IV SCH (21:12)
[2022-01-16] MEDS: POTASSIUM CHLORIDE 20 MEQ in WATER FOR INJECTION 1 100ML.BAG IVPB SCH ×2 (00:29→02:02)
[2022-01-16] MEDS: FUROSEMIDE 10 MG/ML 4 ML VIAL IV SCH ×3 (06:49→21:53)
[2022-01-16 06:53] LABS: Glucose,Whole Blood 127 mg/dL (70-110)
[2022-01-16] MEDS: INSULIN ASPART (NovoLOG) 100 UNIT/ML VIAL SQ SCH ×4 (07:52→21:54)
[2022-01-16] MEDS: IPRATROPIUM-ALBUTEROL 3 ML NEB INHALATION SCH ×4 (07:54→20:05)
[2022-01-16] MEDS: MIDODRINE 5 MG TAB PO SCH ×3 (08:03→17:23)
[2022-01-16] MEDS: PANTOPRAZOLE 40 MG/10 ML VIAL IVP SCH ×2 (09:41→21:54)
[2022-01-16] MEDS: PIPERACILLIN-TAZOBACTAM 3.375 GM in SODIUM CHLORIDE 0.9% 100 ML IVPB SCH ×3 (09:41→23:57)
[2022-01-16] MEDS: ASCORBIC ACID 500 MG TAB PO SCH (09:42)
[2022-01-16] MEDS: METOPROLOL TARTRATE 25 MG TAB PO SCH ×2 (09:42→17:21)
[2022-01-16] MEDS: CHOLECALCIFEROL 25 MCG (1000 IU) TABLET PO SCH (09:42)
[2022-01-16] MEDS: TAMSULOSIN 0.4 MG CAP.ER.24H PO SCH (09:42)
[2022-01-16] MEDS: MULTIVITAMINS, THERA 1 EACH TAB PO SCH (09:42)
[2022-01-16] MEDS: MAGNESIUM OXIDE 400 MG TAB PO SCH ×3 (09:42→21:54)
[2022-01-16] MEDS: FOLIC ACID 1 MG TAB PO SCH (09:42)
[2022-01-16 10:32] LABS: Calcium 7.4 mg/dL (8.4-10.2); Magnesium 1.8 mg/dL (1.6-2.3); Phosphorus 3.4 mg/dL (2.5-4.5); Potassium 3.6 mmol/L (3.5-5.1)
[2022-01-16] MEDS ORDERED: POTASSIUM CHLORIDE ER 20 MEQ TAB.ER PO STA (10:47)
--- NOTE | 2022-01-16 10:50 | P.PN ---
Subjective Patient is seen in follow-up for hyponatremia and acute kidney injury. Off vasopressors. On IV Lasix. Nonoliguric. On dysphagia 3 chopped diet. Oral intake is poor. Also on TPN. Renal function stable. Vital signs are stable. General: Awake. No acute distress. HEENT: Head exam is unremarkable. On nasal cannula. LUNGS: Breath sounds decreased. HEART: Regular rate and rhythm. ABDOMEN: Soft, no distention. EXTREMITITES: 1+ edema. Objective - Vital Signs Vital signs: Vital Signs Temp 98.1 F 01/16/22 04:00 Pulse 102 H 01/16/22 08:05 Resp 15 01/16/22 05:00 BP 92/72 01/16/22 05:00 Pulse Ox 98 01/16/22 05:00 FiO2 28 01/02/22 16:04 Intake & Output 01/15/22 01/16/22 01/16/22 18:59 06:59 18:59 Intake Total 820 1340 Output Total 775 2150 Balance 45 -810 Intake: IV 400 300 Potassium Chloride 20 meq 400 In Water For Injection 1 100ml.bag @ 50 mls/hr IVPB Q2H ERINN Rx#: [id number] Potassium Chloride 20 meq 200 In Water For Injection 1 100ml.bag @ 50 mls/hr IVPB Q2H ERINN Rx#: [id number] zosyn 100 Intake, IV Titration 420 1040 Amount Mvi, Adult No.4 with Vit 240 K 10 ml Trace (Conc-1Ml/ Dose) 1 ml Sodium Chloride 4Meq/ml Vial 10 meq In Amino Acid 4.25%- D10w+Lytes*E* 1,000 ml @ 60 mls/hr IV .BY DURATION ERINN Rx#:[id number] Mvi, Adult No.4 with Vit 180 840 K 10 ml Trace (Conc-1Ml/ Dose) 1 ml Sodium Chloride 4Meq/ml Vial 10 meq Potassium Chloride 20 meq In Amino Acid 4.25%- D10w+Lytes*E* 1,000 ml @ 60 mls/hr IV .BY DURATION ERINN Rx#:[id number] Potassium Chloride 20 meq 200 In Water For Injection 1 100ml.bag @ 50 mls/hr IVPB Q2H ERINN Rx#: [id number] Output: Urine 775 2150 Other: Voiding Method Indwelling Catheter Indwelling Catheter ABP, PAP, CO, CI - Last Documented Arterial Blood Pressure 130/71 - Labs CBC & Chem 7: 01/14/22 10:30 01/16/22 09:50 Labs: Abnormal Lab Results - Last 24 Hours (Table) 01/15/22 01/15/22 01/15/22 Range/Units 11:35 16:22 21:01 Sodium (137-145) mmol/L Potassium 3.3 L (3.5-5.1) mmol/L Glucose (74-99) mg/dL POC Glucose (mg/dL) 186 H 125 H (70-110) mg/dL Calcium (8.4-10.2) mg/dL 01/16/22 01/16/22 Range/Units 06:52 09:50 Sodium 134 L (137-145) mmol/L Potassium (3.5-5.1) mmol/L Glucose 145 H (74-99) mg/dL POC Glucose (mg/dL) 127 H (70-110) mg/dL Calcium 7.4 L (8.4-10.2) mg/dL Assessment and Plan Plan: Assessment: 1. Acute kidney injury secondary to ATN secondary to hypotension/shock. Renal function stable. Nonoliguric. 2. Hyponatremia. Hypervolemic. Stable. 3. Shock. Possibly septic possible source gallbladder versus decubitus ulcer. On antibiotics. Off vasopressors. 4. Lower extremity edema. Improving with diuresis. 5. Metabolic acidosis secondary to acute kidney injury status post bicarb drip. Improved. 6. Hypokalemia from diuresis. Magnesium normal. 7. Acute blood loss anemia status post blood transfusion 01/09/2022. Stool for occult blood negative. C. diff negative. 8. Hypophosphatemia from poor intake. Replaced. Improved. Plan: Maintain IV Lasix 40 mg twice daily. Status post IV albumin 01/14/2022. Encouraged oral intake. Also receiving TPN. Cortisol level not low. Ejection fraction normal. Replace potassium. Refused NG/PEG tube feeding.
[2022-01-16 11:37] LABS: Glucose,Whole Blood 175 mg/dL (70-110)
[2022-01-16] MEDS: 1: MVI, ADULT NO.4 WITH VIT K 10 ML, TRACE (CONC-1ML/DOSE) 1 ML, SODIUM CHLORIDE 4MEQ/ML IV SCH ×10 (12:00→12:40)
[2022-01-16] MEDS: FLUDROCORTISONE 0.1 MG TAB PO SCH ×2 (12:42→21:53)
--- NOTE | 2022-01-16 12:46 | P.PN ---
Subjective Progress Note Date: 01/16/22 Principal diagnosis: Septic shock On 01/16/2022 patient seen in follow-up on a monitored bed on selective care unit. He was transferred out of intensive care unit yesterday, his had no acute events overnight, he is awake and alert, denies any shortness of breath, his pulse ox is 96-98%, breathing comfortably. Seems to be comfortable. Patient is generally quite weak, he had not been out of bed, physical therapy has been consulted. He has a large sacral decubitus ulcer with a wound VAC in place. However patient is awake and alert, he is oriented 3, he follows command, and responds appropriately. His vital signs have been stable, his had no fever or chills. Patient remains on Zosyn for antibiotic coverage. ID service is following, blood cultures have shown no growth. Today's labs have been reviewed showing sodium of 134, potassium 3.6, BUN of 18 creatinine is 1.14. Procalcitonin level slightly improved and is down to 0.28. Objective - Vital Signs Vital signs: Vital Signs Temp 97.7 F 01/16/22 08:30 Pulse 100 01/16/22 12:18 Resp 16 01/16/22 08:30 BP 96/62 01/16/22 08:30 Pulse Ox 98 01/16/22 08:30 FiO2 28 01/02/22 16:04 Intake & Output 01/15/22 01/16/22 01/16/22 18:59 06:59 18:59 Intake Total 820 1340 Output Total 775 2150 1500 Balance 45 -810 -1500 Intake: IV 400 300 Potassium Chloride 20 meq 400 In Water For Injection 1 100ml.bag @ 50 mls/hr IVPB Q2H ERINN Rx#: [id number] Potassium Chloride 20 meq 200 In Water For Injection 1 100ml.bag @ 50 mls/hr IVPB Q2H ERINN Rx#: [id number] zosyn 100 Intake, IV Titration 420 1040 Amount Mvi, Adult No.4 with Vit 240 K 10 ml Trace (Conc-1Ml/ Dose) 1 ml Sodium Chloride 4Meq/ml Vial 10 meq In Amino Acid 4.25%- D10w+Lytes*E* 1,000 ml @ 60 mls/hr IV .BY DURATION ERINN Rx#:[id number] Mvi, Adult No.4 with Vit 180 840 K 10 ml Trace (Conc-1Ml/ Dose) 1 ml Sodium Chloride 4Meq/ml Vial 10 meq Potassium Chloride 20 meq In Amino Acid 4.25%- D10w+Lytes*E* 1,000 ml @ 60 mls/hr IV .BY DURATION ERINN Rx#:[id number] Potassium Chloride 20 meq 200 In Water For Injection 1 100ml.bag @ 50 mls/hr IVPB Q2H ERINN Rx#: [id number] Output: Urine 775 2150 1500 Other: Voiding Method Indwelling Catheter Indwelling Catheter Indwelling Catheter ABP, PAP, CO, CI - Last Documented Arterial Blood Pressure 130/71 - Exam GENERAL EXAM: Alert, pleasant, with somewhat of a flat affect, 61-year-old white male, resting in bed, comfortable, responding appropriately, oriented 3, on room air with a pulse ox of 96-98% comfortable in no apparent distress. HEAD: Normocephalic/atraumatic. EYES: Normal reaction of pupils, equal size. Conjunctiva pink, sclera white. NOSE: Clear with pink turbinates. THROAT: No erythema or exudates. NECK: No masses, no JVD, no thyroid enlargement, no adenopathy. CHEST: No chest wall deformity. Symmetrical expansion. LUNGS: Equal air entry with no crackles, wheeze, rhonchi or dullness. CVS: Regular rate and rhythm, normal S1 and S2, no gallops, no murmurs, no rubs ABDOMEN: Soft, nontender. No hepatosplenomegaly, normal bowel sounds, no guarding or rigidity. EXTREMITIES: No clubbing, 1+ to 2+ edema in upper and lower extremities, no cyanosis, 2+ pulses and upper and lower extremities. MUSCULOSKELETAL: Muscle strength and tone normal. SPINE: No scoliosis or deformity SKIN: No rashes, patient has a stage IV decubitus ulcer on his sacrum and his buttocks covered with a wound VAC CENTRAL NERVOUS SYSTEM: Alert and oriented -3. No focal deficits, tone is normal in all 4 extremities. PSYCHIATRIC: Alert and oriented -3. Appropriate affect. Intact judgment and insight. - Labs CBC & Chem 7: 01/14/22 10:30 01/16/22 09:50 Labs: Abnormal Lab Results - Last 24 Hours (Table) 01/15/22 01/15/22 01/16/22 Range/Units 16:22 21:01 06:52 Sodium (137-145) mmol/L Potassium 3.3 L (3.5-5.1) mmol/L Glucose (74-99) mg/dL POC Glucose (mg/dL) 125 H 127 H (70-110) mg/dL Calcium (8.4-10.2) mg/dL 01/16/22 01/16/22 Range/Units 09:50 11:35 Sodium 134 L (137-145) mmol/L Potassium (3.5-5.1) mmol/L Glucose 145 H (74-99) mg/dL POC Glucose (mg/dL) 175 H (70-110) mg/dL Calcium 7.4 L (8.4-10.2) mg/dL Assessment and Plan Plan: Assessment: #1. Septic shock, possible source related to stage IV sacral decubitus ulcer, blood cultures have been negative, patient remains on Zosyn for antibiotic c overage, and patient has recovered from the septic shock #2. Acute metabolic encephalopathy secondary to sepsis improved #3. History of gangrenous cholecystitis requiring surgery #4. History of DVT on anticoagulation therapy with several toe #5. Stage IV decubitus ulcer with wound VAC in place on sacrum and buttocks #6. Hypoalbuminemia, patient has been started on TPN for nutritional support in addition to oral feedings #7. Non-anion gap metabolic acidosis, improved #8. Type 2 diabetes mellitus #9. Chronic bronchial asthma currently stable #10. Obstructive sleep apnea syndrome #11. Benign essential hypertension #12. Dyslipidemia #13. Medical debility in patient has been chronically bedbound for the past 6 months #14. Chronic anemia Plan: Continue current medical treatment Vital signs have been stable Patient continues on IV antibiotics Social for cultures are negative Continue wound VAC Continue TPN for nutritional support Continue oral anticoagulation Patient's prognosis is poor and guarded CODE STATUS is DO NOT RESUSCITATE Will likely need placement after discharge to [facility] related to complexity of medical needs I have personally seen and examined the patient, performed the documentation and the assessment and plan as written. Number of minutes spent on the visit: [10] Time with Patient: Less than 30
--- NOTE | 2022-01-16 14:53 | P.PN ---
Progress Note - Text Progress Note Date: 01/16/22 Hospital course: this is a pleasant 61 yo M with past medical history of COPD, Diabetes Mellitus, Deep Vein Thrombosis, Hyperlipidemia, Hypertension, Sleep Apnea/CPAP/BIPAP He was in the hospital on 09/2021 for severe hypertension from decreased oral intake, acute metabolic encephalopathy, chronic congestive heart failure, diastolic with ejection fraction 55-60%, acute kidney injury, sinus tachycardia, status post cholecystectomy for his gangrenous cholecystitis, restless leg syndrome, BPH, chronic medical debility i talkled to the pt and at bed side , pt is from alf , he was alf since June 2021. At that time she was in the hospital for acute hypoxic respiratory failure of unknown causes. He needed intubation at that time. He had complete opacification in the left hemithorax he had 2 bronchoscopy done which was negative for microbial growth. He has another admission on 09/2021. Patient and states that he came here because he wanted to get the PEG tube because he was not eating anything since June and he lost a lot of weight he used to weigh 333 pounds and now 193. He states that his main issue is no appetite, he denies choking but he has sometimes nausea that prevent him from eating. Is also short of breath with cough and clear yellow phlegm but no chest pain, no abdominal pain. He has loose bowel movement once or twice a week. Also he has unstageable pressure decubitus ulcer status post debridement, he has wound VAC in place. Patient also complaining of from chronic left leg pain and tenderness, he would not allow someone to drop his leg because it hurts a lot. Inspection looks normal, no trauma. Also was complaining from weakness in both lower extremities since June Patient is tachycardic around 110, on admission heart rate was 125 afebrile. His lab reviewed including CBC showed mild anemia of 11.9, rest of CBC is un remarkable. INR is unremarkable at 1.1. Sodium was low at 123. Creatinine normal 0.8. Glucose was low at 66. Chest x-ray: No acute process. 01/02/2022 Last night patient was started on therapeutic dose Lovenox for acute right leg DVT, CT angiography chest and echo could not be done because have no IV access, patient was transferred to a small IV access was obtained in the right upper arm, not good enough for CT of the chest test or aggressive treatment. However IV fluids could be provided. Blood pressure is improved up to 110/68, however patient still tachycardic. Patient could not eat because of severe nausea and vomiting, H time he put something in his monthly follow-up as per bedside nurse, KUB showing some evidence of ileus, surgical team consult obtained. Social evaluation under direct consults are pending. 01/03/2022 Patient awake alert, looks more comfortable than the first taken to the hospital, less tachypneic, he denies any chest pain or abdominal pain. He tried to take small bites of mashed potato yesterday and he could not consume it and he immediately felt to throw up. CT of the chest is negative for PE, he remains on Lovenox for acute right DVT. CT of the abdomen is suspicious for a complex collection possible abscess although it's the size 5 cm diameter 2.7 cm, recommended ultrasound versus MRI, were going to order a liver ultrasound although it is of less sensitivity especially with this patient large body habitus however it is less invasive than MRI. Also flowcalcitonin is the slightly elevated. He is slightly tachycardic although is better than before. Blood pressure 93/63. Today sodium dropped 127 down to 122 because of this we held his IV fluids and reordered anemia workup in the urine and the serum, we will monitor his sodium level tomorrow if no improvement and may consider further workup. Surgical team consult is called, the plan for PEG tube placement on . Patient originally came to the hospital the PEG tube placement. Patient is not consuming his oral medication but we stopped his gabapentin and ropinirole. 01/04/2022 Kirsten Bach feels better today, he does not feel dizziness while he is lying in bed all the time. He still have low appetite but no chest pain or dyspnea, no abdominal pain. He still complaining from pain in his legs and he has right leg DVT been on Lovenox with plan to switch him to heparin drip on today as he got midline Blood pressure is 87/56, heart rate 120, sodium is 121 On admission his sodium was still low and was started on D5 normal saline at 100 mL/h however after initial improvement sodium dropped to 121 yesterday so we held his IV fluid and the evening sodium improved 124 (no iv lasix given), however this morning is 121 again. We send urine studies and I'll consult epidemiology internship. Also patient has negative CTPA for pulmonary embolism but CT of the abdomen and pelvis showing possible gallbladder fossa abscess or complex fluid collection although it is improved from previous 5 cm down to 2.7 centimeters. The recommended liver ultrasound versus MRI, ultrasound shows the same findings. Also surgery due on the case 01/05/2022 Last night his blood pressure dropped with systolic and 50s, there was a rapid response a team response and he was as stated with IV fluids aggressively, his blood pressure improved in 90s this morning and during the round he was awake and alert looks tired but is appropriate. Sodium was 121 and then 119. He denied any chest pain or abdominal pain, no other complaints clinically. His losing from his puncture wound in the right lower abdomen was a stopped, he was started on heparin drip per recommendation of orthopedic physical therapist. After once by the evening time his blood pressure dropped again was 53/32 with altered mental status, there was another rapid response where patient was transferred to the ICU and levophed was started and his mentation started to improve again. Patient was started also on antibiotic empirically with Zosyn and IV vancomycin total infection ruled out completely as there is still high suspicion, with possible sources including the pressure wound sacral ulcer in the lower back, and less likely the gallbladder bed and fossa with 2.7 cm fluid collection (felt less likely because actually it decreased in size from 5.0 cm previously) After transfer patient and at bedside opted for the DO NOT RESUSCITATE order as per bedside nurse. 01/06/2022 Yesterday patient was still deteriorating, however today patient turned around and start improving patient remains in the ICU he needs to pressors we will fit and vasopressin, lactic acid trending up 6.4. Patient mentation is also deteriorated and become more confused and less responsive. His creatinine remains around 1 although he has low urine output. Patient is resuscitated with many fluids and also his broad-spectrum antibiotics with IV vancomycin and Zosyn, as septic shock is highly suspected is the cause of the patient profound hypotension and shock state. Although other factors might be contributing to it. Because of this we started the patient on hydrocortisone to increase the sensitivity of the adrenergic receptors to the catecholamine. Also replacing electrolytes including calcium and magnesium. Sodium slightly trending up. Patient remains in critical condition. Family at bedside 01/07/2022 Patient today workup and he was awake alert and oriented 3, he follows commands, he feels hungry and actually he started tolerating diet for the first time after several months. He denies any respiratory symptoms, his abdomen looks benign, no other new complaints. Blood pressure is improving and he required less pressors, currently blood pressure is 87/61, is less tachycardic around 110. He is currently on levophed 0.03 which is decreased from yesterday. Last night we added hydrocortisone 100 mg 3 times a day as a replacement therapy but to support blood pressure and increased sensitivity of levophed to its adrenergic receptors. Since blood pressure improvement with lower dose to 50 mg today, possibly we will discontinue it in one or 2 days once blood pressure keep improvement. Also patient receiving fluids. Labs looks stable, hemoglobin 9.8, sodium 126 he remains on Zosyn, vancomycin was discontinued. He remains on Zosyn. Anticoagulation is switched to Eliquis therapeutic dose at 10 mg which could be switched to 5 mg on 01/17. Prognosis remains guarded 01/08/2022 Patient is awake but drowsy, His blood pressure is improving but he still on pressors although is requiring less amount He has poor urine output but creatinine is around 1.1. His GFR is 66. He is going to receive 1 dose of Lasix 80 mg today. Also significant sodium bicarb and albumin infusion. He remains on Zosyn Anticoagulation with Eliquis January 09 2022: I assumed care of patient today. ICU: Tired. Lethargic. Patient drips include vasopressin and norepinephrine. the bedside. Getting 2 units of PRBC. Received IV albumin yesterday. Also received some IV diuretics. 2 L nasal cannula. Hemoglobin 5.5 today. On IV Zosyn. Wound VAC. On clear liquids. 01/10/2022: ICU: Remains in bed. Tired. Lethargic. Following simple commands. On IV levo fed. IV Zosyn. Discussed with at the bedside. Eating small amounts. Receive 2 units of blood yesterday. 01/11/2022: ICU: Tired lethargic. at the bedside. IV levo fed. Poor oral intake. Discussed with Dr. Dong from ID. Rule out right upper quadrant abscess versus infected hematoma. Computed tomography scan with contrast ordered. 01/12/2022: ICU: Drip planning a bit. But more awake. Answers simple questions. Poor oral intake. Discussed with the patient. Refuses PEG tube. present. Computed tomography scan abdomen canceled by Dr. Chow. BP is running on the lower side. Decrease Lopressor to 25 mg twice a day. 01/13/2022: ICU: Remains tired lethargic. TPN lipids ordered by pulmonary. Spoke to the patient and at the bedside. Patient refuses NG tube feeding. Did also inform them that sleep 2 first consequences including . No changing his mind. Spoke to the at the bedside. She'll have a brother come in and talked with the patient again. Computed tomography scan abdomen results discussed with the radiologist. Right upper quadrant no obvious abscess or hematoma. A lot of fluids/third spacing. 01/14/2022: ICU: Tired. I again spoke to the and the patient. Does not want to feeding of any sorts. Has TPN lipids running. Also discussed that this is very temporary. Blood pressure running low. Jeremiah wrap ordered with Denise. Prognosis poor. Also discussed with Dr. Hawk from pulmonary. Patient was placed on levo fed last night. 01/15/2022: ICU: Remains diet. A bit more awake. present. Again spoke to patient and the at the bedside. He does not want any PEG tube or NG tube feeding. Getting TPN lipids. I again explained poor prognosis. Including . 01/16/2022: Patient medical floor. Getting TPN lipids. Present this patient's , daughter, [id number]. Patient is to feeding including NG tube was again discussed. Patient does not want the same. Hospice was discussed. They do not want the same. Plan is for patient to go back to inpatient rehab understanding the prognosis which is poor which is again discussed. Patient eating minimal. Active Medications Hydrocodone Bitart/Acetaminophen (Hydrocodone/Apap 5-325mg 1 Each Tab) 1 each PO Q6HR PRN PRN Reason: Pain Last Admin: 01/08/22 13:23 Dose: 1 each Albuterol Sulfate (Albuterol Nebulized 2.5 Mg/3 Ml) 2.5 mg INHALATION Q2H PRN PRN Reason: AIRWAY PATENCY Last Admin: 12/31/21 21:36 Dose: 2.5 mg Albuterol/Ipratropium (Ipratropium-Albuterol 3 Ml Neb) 3 ml INHALATION RT-QID [facility] Last Admin: 01/16/22 12:07 Dose: 3 ml Ascorbic Acid (Ascorbic Acid 500 Mg Tab) 1,000 mg PO DAILY@0800 [facility] Last Admin: 01/16/22 09:42 Dose: 1,000 mg Cholecalciferol (Cholecalciferol 25 Mcg (1000 Iu) Tablet) 25 mcg PO DAILY [facility] Last Admin: 01/16/22 09:42 Dose: 25 mcg Dronabinol (Dronabinol 2.5 Mg Cap) 5 mg PO BID@1200,1700 [facility] Last Admin: 01/16/22 12:43 Dose: 5 mg Fludrocortisone Acetate (Fludrocortisone 0.1 Mg Tab) 0.05 mg PO BID [facility] Last Admin: 01/16/22 12:42 Dose: 0.05 mg Folic Acid (Folic Acid 1 Mg Tab) 1 mg PO DAILY [facility] Last Admin: 01/16/22 09:42 Dose: 1 mg Furosemide (Furosemide 10 Mg/Ml 4 Ml Vial) 40 mg IV BID [facility] Last Admin: 01/16/22 09:41 Dose: 40 mg Hydromorphone HCl (Hydromorphone 0.5 Mg/0.5 Ml Syringe) 0.5 mg IVP Q4HR PRN PRN Reason: Pain Last Admin: 01/07/22 21:50 Dose: 0.5 mg Sodium Chloride (Saline 0.9%) 1,000 mls @ 10 mls/hr IV .Q24H [facility] Last Admin: 01/15/22 16:48 Dose: 10 mls/hr Norepinephrine Bitartrate 32 (mg/ Sodium Chloride) 250 mls @ 1.898 mls/hr IV .Q24H [facility]; Protocol Last Admin: 01/15/22 21:12 Dose: Not Given Piperacillin Sod/Tazobactam (Sod 3.375 gm/ Sodium Chloride) 100 mls @ 25 mls/hr IVPB Q8HR [facility]; Protocol Last Admin: 01/16/22 09:41 Dose: 25 mls/hr Parenteral Vitamin Supplement 10 ml/ Zinc/Copper/Manganese/Selenium 1 ml/ Sodium Chloride 10 meq/ Potassium Chloride 20 meq/ Amino Ac/Electrol/Dextrose/Calcium 1,023.5 mls @ 60 mls/hr IV .BY DURATION [facility] Last Admin: 01/16/22 12:40 Dose: 60 mls/hr Sodium Chloride 10 meq/Potassium Chloride 20 meq/Amino Ac/Electrol/Dextrose/Calcium 1,012.5 mls @ 60 mls/hr IV .BY DURATION [facility] Last Admin: 01/15/22 17:57 Dose: 60 mls/hr Insulin Aspart (Insulin Aspart (Novolog) 100 Unit/Ml Vial) 0 unit SQ ACHS [facility]; Protocol Last Admin: 01/16/22 12:42 Dose: 2 unit Lidocaine HCl (Lidocaine 1% (10mg/Ml) For Iv Start) 0.1 ml INTRADERMA PER PROTOCOL PRN PRN Reason: IV Start Magnesium Oxide (Magnesium Oxide 400 Mg Tab) 400 mg PO TID [facility] Last Admin: 01/16/22 09:42 Dose: 400 mg Metoprolol Tartrate (Metoprolol Tartrate 25 Mg Tab) 25 mg PO BID@0800,1600 [facility] Last Admin: 01/16/22 09:42 Dose: 25 mg Midodrine (Midodrine 5 Mg Tab) 10 mg PO AC-TID [facility] Last Admin: 01/16/22 12:42 Dose: 10 mg Miscellaneous Information (Phosphorus Replacement Protoco 1 Each Misc) 1 each MISCELLANE DAILY PRN; Protocol PRN Reason: Per Protocol Miscellaneous Information (Magnesium Replacement Protocol 1 Each Misc) 1 each MISCELLANE DAILY PRN; Protocol PRN Reason: Per Protocol Miscellaneous Information (Potassium Replacement Protocol 1 Each Misc) 1 each MISCELLANE DAILY PRN; Protocol PRN Reason: Per Protocol Multivitamins (Multivitamins, Thera 1 Each Tab) 1 each PO DAILY [facility] Last Admin: 01/16/22 09:42 Dose: 1 each Naloxone HCl (Naloxone 0.4 Mg/Ml 1 Ml Vial) 0.2 mg IV Q2M PRN PRN Reason: Opioid Reversal Ondansetron HCl (Ondansetron 4 Mg/2 Ml Vial) 4 mg IVP Q6HR PRN PRN Reason: Nausea And Vomiting Last Admin: 01/02/22 18:15 Dose: 4 mg Pantoprazole Sodium (Pantoprazole 40 Mg/10 Ml Vial) 40 mg IVP BID [facility] Last Admin: 01/16/22 09:41 Dose: 40 mg Sodium Chloride (Sodium Chloride 0.9% Flush 10 Ml Syringe) 10 ml IV Q4HR PRN PRN Reason: PICC Line Sodium Chloride (Sodium Chloride 0.9% Flush 10 Ml Syringe) 10 ml IV WEEKLY [facility] Sodium Chloride (Sodium Chloride 0.9% Flush 10 Ml Syringe) 20 ml IV Q4HR PRN PRN Reason: PICC Line Tamsulosin HCl (Tamsulosin 0.4 Mg Cap.Er.24h) 0.4 mg PO DAILY [facility] Last Admin: 01/16/22 09:42 Dose: 0.4 mg On examination: VITAL SIGNS: 97.9, 100, 91, 18, 94-60, 97% room air GENERAL APPEARANCE: Tired , awake HEENT: Normal external appearance of nose and ear. Oral cavity normal EYES: Pupils equal. Conjunctiva normal. NECK: JVD unable to assess. Mass not palpable. RESPIRATORY: Respiratory effort increased. Decreased breath sounds to auscultation. CARDIOVASCULAR: First and second sounds normal. Some edema. ABDOMEN: Soft. Liver and spleen not palpable. No tenderness. No mass palpable. PSYCHIATRY: Answering questions Muscular skeletal: Stage IV pressure ulcer left buttock. With wound VAC INVESTIGATIONS, reviewed in the clinical context: January 16: Potassium 3.6 creatinine 1.14 January 15: Potassium 2.6 creatinine 1.19 January 14: WBC 3.2 hemoglobin 9 at bedtime 114 potassium 3.9 creatinine 1.19 pro- calcitonin 0.28 albumin 1.6 CRP 5.5 January 13: White count 3.5 hemoglobin 10.4 platelets 95 January 12: WBC 4.5 hemoglobin 9.9 potassium 3.6 creatinine 1.2 to albumin 2.0 January 11: White count 5.6 hemoglobin 10.3 sodium 132 potassium 3.5 creatinine 1.24 January 10: Obesity 4.9 hemoglobin 8.4 platelets 137 sodium 137 potassium 3.3 creatinine 1.2 January 09: White count 5.6 hemoglobin 5.5 platelets 179 sodium 128 potassium 3.2 creatinine 1.25 albumin 2.2 LIVER: ULTRASOUND:. PRIOR CHOLECYSTECTOMY. COMPLEX AREA SEEN IN THE GALLBLADDER FOSSA. CONTAINING A FEW BUBBLES. CT abdomen: Persistent heterogenous hyperdense area in the hepatic parenchyma adjacent to the gallbladder fossa. Limited 2-D echocardiogram: Home LV function. Ultrasound venous Doppler: Positive DVT right lower extremity. Assessment and plan: Severe hypotension and shock state requiring pressors, possible septic shock : Some improvement Off levo fed. -Acute metabolic encephalopathy, multifactorial: Slow to respond -Complex liver collection adjacent to gallbladder fossa 2.7 cm Repeat computed tomography scan not suggestive of abscess/hematoma -Hyponatremia: Better Follow labs -Severe hypokalemia Replacementof -Persistent nausea and vomiting secondary to ileus,: Better -Acute right leg DVT Eliquis -Severe anorexia: Slow to respond On Marinol. Encourage oral intake -Dehydration and hypovolemia, improving -Unstageable chronic decubitus ulcer - wound VAC placement -Anemia of chronic diseases -Acute drop in hemoglobin from 10-5.5. Patient is on eliquis. -Hyperphosphatemia Supplement phosphorus -Essential Hypertension: Currently blood pressure running very low Decrease Lopressor to 25 mg twice a day. Hyperlipidemia -COPD DuoNeb 4 times a day -Chronic congestive heart failure with ejection fraction 55-60% On Lasix -Sinus tachycardia -Restless leg syndrome -BPH Flomax -Anorexia Marinol. -Chronic medical debility -Moderate protein calorie malnutrition from poor oral intake Patient is repeatedly refusing tube feeding. On TPN and lipids DO NOT RESUSCITATE TPN and lipids. Continue current medication treatment plan. Prognosis guarded. Advanced care planning: This was discussed with the patient, patient's , patient's [id number], and daughter the bedside. This point patient does not want hospice. Current treatment be continued. Patient and family understand that TPN and lipids is only temporary. Patient again did confirm he does not want any kind of feeding tube including PEG tube or NG tube. His wishes will be respected. This was discussed with the family. Looking for the patient to return to rehab. But the guarded prognosis. Time spent for this 25 minutes
[2022-01-16 16:29] LABS: Glucose,Whole Blood 93 mg/dL (70-110)
[2022-01-16] MEDS: SODIUM CHLORIDE 0.9% 1,000 ML IV SCH (17:22)
[2022-01-16] MEDS: NOREPINEPHRINE 32 MG in SODIUM CHLORIDE 0.9% 218 ML IV SCH (17:52)
[2022-01-16 20:52] LABS: Glucose,Whole Blood 164 mg/dL (70-110)
[2022-01-17] MEDS: ALBUTEROL NEBULIZED 2.5 MG/3 ML INHALATION PRN (03:12)
[2022-01-17] MEDS: MIDODRINE 5 MG TAB PO SCH ×3 (06:05→17:58)
[2022-01-17] MEDS: 1: MVI, ADULT NO.4 WITH VIT K 10 ML, TRACE (CONC-1ML/DOSE) 1 ML, SODIUM CHLORIDE 4MEQ/ML IV SCH ×10 (06:05→06:08)
[2022-01-17] MEDS: INSULIN ASPART (NovoLOG) 100 UNIT/ML VIAL SQ SCH ×4 (06:06→20:34)
[2022-01-17 06:14] LABS: Glucose,Whole Blood 108 mg/dL (70-110)
[2022-01-17] MEDS: IPRATROPIUM-ALBUTEROL 3 ML NEB INHALATION SCH ×4 (07:49→19:52)
[2022-01-17] MEDS: PANTOPRAZOLE 40 MG/10 ML VIAL IVP SCH ×2 (10:07→20:38)
[2022-01-17] MEDS: PIPERACILLIN-TAZOBACTAM 3.375 GM in SODIUM CHLORIDE 0.9% 100 ML IVPB SCH ×3 (10:07→22:44)
[2022-01-17] MEDS: FUROSEMIDE 10 MG/ML 4 ML VIAL IV SCH ×2 (10:07→20:39)
[2022-01-17] MEDS: FLUDROCORTISONE 0.1 MG TAB PO SCH ×2 (10:08→21:20)
[2022-01-17] MEDS: ASCORBIC ACID 500 MG TAB PO SCH (10:08)
[2022-01-17] MEDS: MULTIVITAMINS, THERA 1 EACH TAB PO SCH (10:09)
[2022-01-17] MEDS: FOLIC ACID 1 MG TAB PO SCH (10:09)
[2022-01-17] MEDS: TAMSULOSIN 0.4 MG CAP.ER.24H PO SCH (10:09)
[2022-01-17] MEDS: MAGNESIUM OXIDE 400 MG TAB PO SCH ×3 (10:09→20:39)
[2022-01-17] MEDS: CHOLECALCIFEROL 25 MCG (1000 IU) TABLET PO SCH (10:09)
[2022-01-17] MEDS: METOPROLOL TARTRATE 25 MG TAB PO SCH ×2 (10:09→16:42)
[2022-01-17 11:37] LABS: Glucose,Whole Blood 126 mg/dL (70-110)
--- NOTE | 2022-01-17 12:48 | P.PN ---
Subjective Progress Note Date: 01/17/22 Principal diagnosis: Failure to thrive. On 01/16/2022 patient seen in follow-up on a monitored bed on selective care unit. He was transferred out of intensive care unit yesterday, his had no acute events overnight, he is awake and alert, denies any shortness of breath, his pulse ox is 96-98%, breathing comfortably. Seems to be comfortable. Patient is generally quite weak, he had not been out of bed, physical therapy has been consulted. He has a large sacral decubitus ulcer with a wound VAC in place. However patient is awake and alert, he is oriented 3, he follows command, and responds appropriately. His vital signs have been stable, his had no fever or chills. Patient remains on Zosyn for antibiotic coverage. ID service is following, blood cultures have shown no growth. Today's labs have been reviewed showing sodium of 134, potassium 3.6, BUN of 18 creatinine is 1.14. Procalcitonin level slightly improved and is down to 0.28. Progress note dated 01/17/2022. The patient is seen again today in room 380. He is now been in the hospital for 17 days. The patient was recently in the intensive care unit. Currently, the patient is on room air, with a saturation of 97%. The patient is receiving TPN. The patient also has a large sacral decubitus ulcer, with a wound VAC in place. No new labs today. Objective - Vital Signs Vital signs: Vital Signs Temp 97.7 F 01/17/22 08:00 Pulse 98 01/17/22 08:00 Resp 17 01/17/22 08:00 BP 97/64 01/17/22 08:00 Pulse Ox 97 01/17/22 08:00 FiO2 21 01/17/22 07:50 Intake & Output 01/16/22 01/17/22 01/17/22 18:59 06:59 18:59 Intake Total 1012.5 1603.5 0 Output Total 2300 1450 420 Balance -1287.5 153.5 -420 Weight 79.5 kg Intake: IV 100 zosyn 100 Intake, IV Titration 1012.5 1503.5 Amount Mvi, Adult No.4 with Vit 1023.5 K 10 ml Trace (Conc-1Ml/ Dose) 1 ml Sodium Chloride 4Meq/ml Vial 10 meq Potassium Chloride 20 meq In Amino Acid 4.25%- D10w+Lytes*E* 1,000 ml @ 60 mls/hr IV .BY DURATION [facility] Rx#:[id number] Sodium Chloride 4Meq/ml 1012.5 480 Vial 10 meq Potassium Chloride 20 meq In Amino Acid 4.25%-D10w+Lytes*E* 1,000 ml @ 60 mls/hr IV . BY DURATION [facility] Rx#: [id number] Oral 0 Output: Urine 2300 1450 420 Other: Voiding Method Indwelling Catheter Indwelling Catheter Indwelling Catheter # Voids 2 ABP, PAP, CO, CI - Last Documented Arterial Blood Pressure 130/71 - Exam No acute distress, oriented 3. Flat affect. Room air saturation 97%. HEENT examination is grossly unremarkable. Neck supple. Full range of motion. No adenopathy thyromegaly or neck vein distention. Cardiovascular examination reveals regular rhythm rate. S1-S2 normal. No S3 or S4. No discernible murmur noted. Heart rate 98 bpm. Lungs reveal clear breath sounds. Breath sounds are equal bilaterally. No adventitious lung sounds including wheezes rhonchi or crackles. Abdomen soft bowel sounds are heard. No masses or tenderness. Extremities are intact. No cyanosis clubbing or edema. Skin is without rash or lesion. Neurologic examination is brief but nonfocal. - Labs CBC & Chem 7: 01/14/22 10:30 01/16/22 09:50 Labs: Abnormal Lab Results - Last 24 Hours (Table) 01/16/22 01/17/22 Range/Units 20:47 11:35 POC Glucose (mg/dL) 164 H 126 H (70-110) mg/dL Assessment and Plan Assessment: Septic shock, possibly secondary to sacral decubitus ulcer. Blood cultures negative. Patient remains on Zosyn. Metabolic encephalopathy secondary to sepsis. History of gangrenous cholecystitis, status post open cholecystectomy. History of DVT. Stage IV decubitus ulcer, with wound VAC in place. Hypoalbuminemia. Non-anion gap metabolic acidosis. Type 2 diabetes mellitus. Chronic bronchial asthma, stable. Obstructive sleep apnea syndrome. Essential hypertension. Hyperlipidemia. General medical debility. Chronic anemia. Plan: Plan dated 01/17/2022. The patient remains on TPN, and Zosyn. The wound VAC remains in place. Labs, x-rays, and medications are reviewed. The patient's overall prognosis remains very poor. The patient will likely need placement after discharge to an extended care facility. The patient is a DO NOT RESUSCITATE patient. We will continue to follow and make recommendations where appropriate. Time with Patient: Less than 30
[2022-01-17] MEDS: SODIUM CHLORIDE 0.9% 1,000 ML IV SCH (13:13)
--- NOTE | 2022-01-17 13:27 | P.GSCN ---
History of Present Illness Consult date: 01/17/22 History of present illness: CHIEF COMPLAINT: Dehydration and failure to thrive HISTORY OF PRESENT ILLNESS: This is a 61-year-old male who presented to the hospital with dehydration and evidence of failure to thrive. He has chronic decubitus ulcers with wound VAC placement. During patient's hospitalization he had evidence of sepsis and septic shock possibly secondary to his decubitus ulcer. Initially we are on consult for patient's ileus. This resolved. He also had discussion about PEG tube placement and initially patient refused PEG tube placement. Surgical service has been re-consulted because patient is now agreeable to PEG tube placement. His nutrition intake has been very poor. Patient on IV Lasix due to fluid overload. He is receiving TPN for nutrition support. PAST MEDICAL HISTORY: See list. PAST SURGICAL HISTORY: See list. MEDICATIONS: See list. ALLERGIES: See list. SOCIAL HISTORY: No illicit drug use. REVIEW OF SYSTEMS: CONSTITUTIONAL: Denies fever or chills. HEENT: Denies blurred vision, vision changes, or eye pain. Denies hemoptysis CARDIOVASCULAR: Denies chest pain or pressure. RESPIRATORY: No shortness of breath. GASTROINTESTINAL: See HPI for pertinent findings HEMATOLOGIC: Denies bleeding disorders. GENITOURINARY: Denies any blood in urine or increased urinary frequency. SKIN: Denies pruitis. Denies rash. PHYSICAL EXAM: VITAL SIGNS: Reviewed GENERAL: Well-developed in no acute distress. HEENT: No sclera icterus. Extraocular movements grossly intact. Moist buccal mucosa. Head is atraumatic, normocephalic. No nasal drainage. ABDOMEN: Soft. Nondistended. Nontender NEUROLOGIC: Alert and oriented. Cranial nerves II through XII grossly intact. LABORATORY DATA: WBC 3.2 Hgb 10 platelets 114 Sodium 134 potassium 3.6 creatinine 1.14 magnesium 1.8 Albumin 1.6 IMAGING: ASSESSMENT: 1. Severe protein calorie malnutrition 2. Poor oral intake PLAN: -Patient scheduled for PEG tube placement tomorrow, 01/18/[address] whitaker -Nothing by mouth after midnight Thank you for this consultation Physician Addiction Social Worker note has been reviewed by physician. Signing provider agrees with the documented findings, assessment, and plan of care. Past Medical History Past Medical History: COPD, Diabetes Mellitus, Deep Vein Thrombosis (DVT), Hyperlipidemia, Hypertension, Pneumonia, Prostate Disorder, Sleep Apnea/CPAP/BIPAP Additional Past Medical History / Comment(s): sleep apnea uses cpap machine, herniated disc-has had injections, past stress test pt stated was wnl History of Any Multi-Drug Resistant Organisms: None Reported Past Surgical History: Hernia Repair Additional Past Surgical History / Comment(s): hydrocelectomy, vasectomy, colonoscopy/polypectomy-benign. umbilical hernia repair, injections for herniated disc. Past Anesthesia/Blood Transfusion Reactions: No Reported Reaction Additional Past Anesthesia/Blood Transfusion Reaction / Comm: clausterphobia. pt stated has never had a blood transfusion Past Psychological History: No Psychological Hx Reported Smoking Status: Never smoker Past Alcohol Use History: Occasional Additional Past Alcohol Use History / Comment(s): approx 2008 briefly smoked the occ cigar. pt has a rare drink Past Drug Use History: Marijuana Additional Drug Use History / Comment(s): approx every 3 months - Past Family History Mother Family Medical History: Cancer, Eye Disorder Additional Family Medical History / Comment(s): skin cancer, macular degeneration Father Family Medical History: Coronary Artery Disease (CAD), Dementia Additional Family Medical History / Comment(s): cabg, stents, uti/sepsis Medications and Allergies Home Medications Medication Instructions Recorded Confirmed Type Aspirin EC [Ecotrin Low Dose] 81 mg PO DAILY 08/23/18 12/31/21 History Tamsulosin [Flomax] 0.4 mg PO DAILY 08/23/18 12/31/21 History rOPINIRole HCL [Requip] 1 mg PO HS 08/23/18 12/31/21 History Ipratropium-Albuterol Nebulize 3 ml INHALATION RT-QID ml 07/16/21 12/31/21 Rx [Duoneb 0.5 mg-3 mg/3 ml Soln] Ascorbic Acid [Vitamin C] 1,000 mg PO DAILY@0800 09/09/21 12/31/21 History Cholecalciferol [Vitamin D3 (25 25 mcg PO DAILY 09/09/21 12/31/21 History Mcg = 1000 Iu)] Multivitamins, Thera [Multivitamin 1 tab PO DAILY 09/09/21 12/31/21 History (formulary)] hydrALAZINE HCL 50 mg PO BID@0500,1600 09/09/21 12/31/21 History Gabapentin [Neurontin] 100 mg PO HS #3 cap 10/01/21 12/31/21 Rx Acetaminophen [Acetaminophen ER] 650 mg PO Q6H PRN 12/31/21 12/31/21 History Albuterol Sulfate [Ventolin HFA] 2 puff INHALATION Q2H PRN 12/31/21 12/31/21 History Famotidine [Pepcid] 20 mg PO BID@0800,1600 12/31/21 12/31/21 History Folic Acid 0.8 mg PO DAILY 12/31/21 12/31/21 History HYDROcodone/APAP 5-325MG [[place] 1 tab PO Q6HR PRN 12/31/21 12/31/21 History 5-325] Metoprolol Tartrate [Lopressor] 50 mg PO BID@0800,1600 12/31/21 12/31/21 History Potassium Chloride ER [K-Dur 20] 20 meq PO DAILY 12/31/21 12/31/21 History Potassium Chloride ER [K-Dur 20] 40 meq PO HS 12/31/21 12/31/21 History Promethazine HCl 12.5 mg PO Q12H PRN 12/31/21 12/31/21 History dronabinoL [Dronabinol] 5 mg PO BID@1200,1700 12/31/21 12/31/21 History Allergies Allergy/AdvReac Type Severity Reaction Status Date / Time No Known Allergies Allergy Verified 12/31/21 15:42 Surgical - Exam Vital Signs Temp Pulse Resp BP Pulse Ox 97.4 F L 125 H 22 123/78 98 12/31/21 12:45 12/31/21 12:45 12/31/21 12:45 12/31/21 12:45 12/31/21 12:45 Results - Labs 01/14/22 10:30 01/16/22 09:50 Abnormal Lab Results - Last 24 Hours (Table) 01/16/22 01/17/22 Range/Units 20:47 11:35 POC Glucose (mg/dL) 164 H 126 H (70-110) mg/dL
[2022-01-17 15:14] LABS: African American GFR (CKD) >90 (>60 ml/min/1.73 sqM); Anion Gap -1 mmol/L; Blood Urea Nitrogen 21 mg/dL (9-20); Calcium 7.5 mg/dL (8.4-10.2); Carbon Dioxide 32 mmol/L (22-30); Chloride 101 mmol/L (98-107); Glucose 143 mg/dL (74-99); Magnesium 1.7 mg/dL (1.6-2.3); Non-African American GFR(CKD) 78 (>60 ml/min/1.73 sqM); Phosphorus 3.8 mg/dL (2.5-4.5); Potassium 3.2 mmol/L (3.5-5.1); Sodium 132 mmol/L (137-145)
[2022-01-17 15:17] LABS: Anisocytosis Slight; Basophils % (A) 1 %; Eosinophils # (A) 0.1 k/uL (0-0.7); Eosinophils % (A) 3 %; HCT 23.8 % (39.0-53.0); HGB 7.7 gm/dL (13.0-17.5); Lymphocytes # (A) 0.7 k/uL (1.0-4.8); Lymphocytes % (A) 22 %; MCHC 32.2 g/dL (31.0-37.0); MCV 89.9 fL (80.0-100.0); Mean Platelet Volume 8.2; Monocytes # (A) 0.2 k/uL (0-1.0); Monocytes % (A) 5 %; Neutrophils # (A) 2.2 k/uL (1.3-7.7); Neutrophils % (A) 66 %; Platelet Count 129 k/uL (150-450); RBC 2.65 m/uL (4.30-5.90); RDW 18.8 % (11.5-15.5); WBC 3.3 k/uL (3.8-10.6)
[2022-01-17 16:42] LABS: Glucose,Whole Blood 135 mg/dL (70-110)
[2022-01-17] MEDS: POTASSIUM CHLORIDE 20 MEQ in WATER FOR INJECTION 1 100ML.BAG IVPB SCH ×2 (16:42→18:55)
--- NOTE | 2022-01-17 17:12 | P.PN ---
Progress Note - Text Progress Note Date: 01/17/22 Hospital course: this is a pleasant 61 yo M with past medical history of COPD, Diabetes Mellitus, Deep Vein Thrombosis, Hyperlipidemia, Hypertension, Sleep Apnea/CPAP/BIPAP He was in the hospital on 09/2021 for severe hypertension from decreased oral intake, acute metabolic encephalopathy, chronic congestive heart failure, diastolic with ejection fraction 55-60%, acute kidney injury, sinus tachycardia, status post cholecystectomy for his gangrenous cholecystitis, restless leg syndrome, BPH, chronic medical debility i talkled to the pt and at bed side , pt is from residential , he was residential since June 2021. At that time she was in the hospital for acute hypoxic respiratory failure of unknown causes. He needed intubation at that time. He had complete opacification in the left hemithorax he had 2 bronchoscopy done which was negative for microbial growth. He has another admission on 09/2021. Patient and states that he came here because he wanted to get the PEG tube because he was not eating anything since June and he lost a lot of weight he used to weigh 333 pounds and now 193. He states that his main issue is no appetite, he denies choking but he has sometimes nausea that prevent him from eating. Is also short of breath with cough and clear yellow phlegm but no chest pain, no abdominal pain. He has loose bowel movement once or twice a week. Also he has unstageable pressure decubitus ulcer status post debridement, he has wound VAC in place. Patient also complaining of from chronic left leg pain and tenderness, he would not allow someone to drop his leg because it hurts a lot. Inspection looks normal, no trauma. Also was complaining from weakness in both lower extremities since June Patient is tachycardic around 110, on admission heart rate was 125 afebrile. His lab reviewed including CBC showed mild anemia of 11.9, rest of CBC is un remarkable. INR is unremarkable at 1.1. Sodium was low at 123. Creatinine normal 0.8. Glucose was low at 66. Chest x-ray: No acute process. 01/02/2022 Last night patient was started on therapeutic dose Lovenox for acute right leg DVT, CT angiography chest and echo could not be done because have no IV access, patient was transferred to a small IV access was obtained in the right upper arm, not good enough for CT of the chest test or aggressive treatment. However IV fluids could be provided. Blood pressure is improved up to 110/68, however patient still tachycardic. Patient could not eat because of severe nausea and vomiting, H time he put something in his monthly follow-up as per bedside nurse, KUB showing some evidence of ileus, surgical team consult obtained. Social evaluation under direct consults are pending. 01/03/2022 Patient awake alert, looks more comfortable than the first taken to the hospital, less tachypneic, he denies any chest pain or abdominal pain. He tried to take small bites of mashed potato yesterday and he could not consume it and he immediately felt to throw up. CT of the chest is negative for PE, he remains on Lovenox for acute right DVT. CT of the abdomen is suspicious for a complex collection possible abscess although it's the size 5 cm diameter 2.7 cm, recommended ultrasound versus MRI, were going to order a liver ultrasound although it is of less sensitivity especially with this patient large body habitus however it is less invasive than MRI. Also flowcalcitonin is the slightly elevated. He is slightly tachycardic although is better than before. Blood pressure 93/63. Today sodium dropped 127 down to 122 because of this we held his IV fluids and reordered anemia workup in the urine and the serum, we will monitor his sodium level tomorrow if no improvement and may consider further workup. Surgical team consult is called, the plan for PEG tube placement on . Patient originally came to the hospital the PEG tube placement. Patient is not consuming his oral medication but we stopped his gabapentin and ropinirole. 01/04/2022 Kirsten Bach feels better today, he does not feel dizziness while he is lying in bed all the time. He still have low appetite but no chest pain or dyspnea, no abdominal pain. He still complaining from pain in his legs and he has right leg DVT been on Lovenox with plan to switch him to heparin drip on today as he got midline Blood pressure is 87/56, heart rate 120, sodium is 121 On admission his sodium was still low and was started on D5 normal saline at 100 mL/h however after initial improvement sodium dropped to 121 yesterday so we held his IV fluid and the evening sodium improved 124 (no iv lasix given), however this morning is 121 again. We send urine studies and I'll consult central office repairer. Also patient has negative CTPA for pulmonary embolism but CT of the abdomen and pelvis showing possible gallbladder fossa abscess or complex fluid collection although it is improved from previous 5 cm down to 2.7 centimeters. The recommended liver ultrasound versus MRI, ultrasound shows the same findings. Also surgery due on the case 01/05/2022 Last night his blood pressure dropped with systolic and 50s, there was a rapid response a team response and he was as stated with IV fluids aggressively, his blood pressure improved in 90s this morning and during the round he was awake and alert looks tired but is appropriate. Sodium was 121 and then 119. He denied any chest pain or abdominal pain, no other complaints clinically. His losing from his puncture wound in the right lower abdomen was a stopped, he was started on heparin drip per recommendation of locks inspector. After once by the evening time his blood pressure dropped again was 53/32 with altered mental status, there was another rapid response where patient was transferred to the ICU and levophed was started and his mentation started to improve again. Patient was started also on antibiotic empirically with Zosyn and IV vancomycin total infection ruled out completely as there is still high suspicion, with possible sources including the pressure wound sacral ulcer in the lower back, and less likely the gallbladder bed and fossa with 2.7 cm fluid collection (felt less likely because actually it decreased in size from 5.0 cm previously) After transfer patient and at bedside opted for the DO NOT RESUSCITATE order as per bedside nurse. 01/06/2022 Yesterday patient was still deteriorating, however today patient turned around and start improving patient remains in the ICU he needs to pressors we will fit and vasopressin, lactic acid trending up 6.4. Patient mentation is also deteriorated and become more confused and less responsive. His creatinine remains around 1 although he has low urine output. Patient is resuscitated with many fluids and also his broad-spectrum antibiotics with IV vancomycin and Zosyn, as septic shock is highly suspected is the cause of the patient profound hypotension and shock state. Although other factors might be contributing to it. Because of this we started the patient on hydrocortisone to increase the sensitivity of the adrenergic receptors to the catecholamine. Also replacing electrolytes including calcium and magnesium. Sodium slightly trending up. Patient remains in critical condition. Family at bedside 01/07/2022 Patient today workup and he was awake alert and oriented 3, he follows commands, he feels hungry and actually he started tolerating diet for the first time after several months. He denies any respiratory symptoms, his abdomen looks benign, no other new complaints. Blood pressure is improving and he required less pressors, currently blood pressure is 87/61, is less tachycardic around 110. He is currently on levophed 0.03 which is decreased from yesterday. Last night we added hydrocortisone 100 mg 3 times a day as a replacement therapy but to support blood pressure and increased sensitivity of levophed to its adrenergic receptors. Since blood pressure improvement with lower dose to 50 mg today, possibly we will discontinue it in one or 2 days once blood pressure keep improvement. Also patient receiving fluids. Labs looks stable, hemoglobin 9.8, sodium 126 he remains on Zosyn, vancomycin was discontinued. He remains on Zosyn. Anticoagulation is switched to Eliquis therapeutic dose at 10 mg which could be switched to 5 mg on 01/17. Prognosis remains guarded 01/08/2022 Patient is awake but drowsy, His blood pressure is improving but he still on pressors although is requiring less amount He has poor urine output but creatinine is around 1.1. His GFR is 66. He is going to receive 1 dose of Lasix 80 mg today. Also significant sodium bicarb and albumin infusion. He remains on Zosyn Anticoagulation with Eliquis January 09 2022: I assumed care of patient today. ICU: Tired. Lethargic. Patient drips include vasopressin and norepinephrine. the bedside. Getting 2 units of PRBC. Received IV albumin yesterday. Also received some IV diuretics. 2 L nasal cannula. Hemoglobin 5.5 today. On IV Zosyn. Wound VAC. On clear liquids. 01/10/2022: ICU: Remains in bed. Tired. Lethargic. Following simple commands. On IV levo fed. IV Zosyn. Discussed with at the bedside. Eating small amounts. Receive 2 units of blood yesterday. 01/11/2022: ICU: Tired lethargic. at the bedside. IV levo fed. Poor oral intake. Discussed with Dr. Dong from ID. Rule out right upper quadrant abscess versus infected hematoma. Computed tomography scan with contrast ordered. 01/12/2022: ICU: Drip planning a bit. But more awake. Answers simple questions. Poor oral intake. Discussed with the patient. Refuses PEG tube. present. Computed tomography scan abdomen canceled by Dr. Chow. BP is running on the lower side. Decrease Lopressor to 25 mg twice a day. 01/13/2022: ICU: Remains tired lethargic. TPN lipids ordered by pulmonary. Spoke to the patient and at the bedside. Patient refuses NG tube feeding. Did also inform them that sleep 2 first consequences including . No changing his mind. Spoke to the at the bedside. She'll have a brother come in and talked with the patient again. Computed tomography scan abdomen results discussed with the radiologist. Right upper quadrant no obvious abscess or hematoma. A lot of fluids/third spacing. 01/14/2022: ICU: Tired. I again spoke to the and the patient. Does not want to feeding of any sorts. Has TPN lipids running. Also discussed that this is very temporary. Blood pressure running low. [facility] Prognosis poor. Also discussed with Dr. Hawk from pulmonary. Patient was placed on levo fed last night. 01/15/2022: ICU: Remains diet. A bit more awake. present. Again spoke to patient and the at the bedside. He does not want any PEG tube or NG tube feeding. Getting TPN lipids. I again explained poor prognosis. Including . 01/16/2022: Patient medical floor. Getting TPN lipids. Present this patient's , daughter, [id number]. Patient is to feeding including NG tube was again discussed. Patient does not want the same. Hospice was discussed. They do not want the same. Plan is for patient to go back to inpatient rehab understanding the prognosis which is poor which is again discussed. Patient eating minimal. 01/17/2022: Getting TPN lipids. Oral intake poor. Had a very lengthy discussion at the bedside. The patient, his and nurse Vandana present. After load obesity with the patient he is agreed to proceed with a PEG tube. Dr. Renetta kaye is being informed. Active Medications Albuterol Sulfate (Albuterol Nebulized 2.5 Mg/3 Ml) 2.5 mg INHALATION Q2H PRN PRN Reason: AIRWAY PATENCY Last Admin: 01/17/22 03:12 Dose: 2.5 mg Albuterol/Ipratropium (Ipratropium-Albuterol 3 Ml Neb) 3 ml INHALATION RT-QID [facility] Last Admin: 01/17/22 15:25 Dose: 3 ml Ascorbic Acid (Ascorbic Acid 500 Mg Tab) 1,000 mg PO DAILY@0800 [facility] Last Admin: 01/17/22 10:08 Dose: 1,000 mg Cholecalciferol (Cholecalciferol 25 Mcg (1000 Iu) Tablet) 25 mcg PO DAILY [facility] Last Admin: 01/17/22 10:09 Dose: 25 mcg Dronabinol (Dronabinol 2.5 Mg Cap) 5 mg PO BID@1200,1700 [facility] Last Admin: 01/17/22 13:12 Dose: 5 mg Fludrocortisone Acetate (Fludrocortisone 0.1 Mg Tab) 0.05 mg PO BID [facility] Last Admin: 01/17/22 10:08 Dose: 0.05 mg Folic Acid (Folic Acid 1 Mg Tab) 1 mg PO DAILY [facility] Last Admin: 01/17/22 10:09 Dose: 1 mg Furosemide (Furosemide 10 Mg/Ml 4 Ml Vial) 40 mg IV BID [facility] Last Admin: 01/17/22 10:07 Dose: 40 mg Sodium Chloride (Saline 0.9%) 1,000 mls @ 10 mls/hr IV .Q24H [facility] Last Admin: 01/17/22 13:13 Dose: 10 mls/hr Piperacillin Sod/Tazobactam (Sod 3.375 gm/ Sodium Chloride) 100 mls @ 25 mls/hr IVPB Q8HR [facility]; Protocol Last Admin: 01/17/22 10:07 Dose: 25 mls/hr Parenteral Vitamin Supplement 10 ml/ Zinc/Copper/Manganese/Selenium 1 ml/ Sodium Chloride 10 meq/ Potassium Chloride 20 meq/ Amino Ac/Electrol/Dextrose/Calcium 1,023.5 mls @ 60 mls/hr IV .BY DURATION [facility] Stop: 01/17/22 17:49 Last Infusion: 01/17/22 05:04 Dose: Infused Sodium Chloride 10 meq/Potassium Chloride 20 meq/Amino Ac/Electrol /Dextrose/Calcium 1,012.5 mls @ 60 mls/hr IV .BY DURATION [facility] Stop: 01/17/22 17:49 Last Admin: 01/17/22 06:08 Dose: 60 mls/hr Parenteral Vitamin Supplement 10 ml/ Zinc/Copper/Manganese/Selenium 1 ml/ Sodium Chloride 16 meq/ Potassium Chloride 40 meq/ Magnesium Sulfate 0.5 gm / Amino Ac/Electrol/Dextrose/Calcium 1,036 mls @ 60 mls/hr IV .BY DURATION [facility] Sodium Chloride 16 meq/Potassium Chloride 40 meq/Magnesium Sulfate 0.5 gm/Amino Ac/Electrol/Dextrose/Calcium 1,025 mls @ 60 mls/hr IV .BY DURATION [facility] Magnesium Sulfate/Dextrose 1 (gm/ IV Solution) 100 mls @ 100 mls/hr IVPB Q1H [facility] Stop: 01/17/22 17:59 Potassium Chloride 20 meq/ IV (Solution) 100 mls @ 50 mls/hr IVPB Q2H [facility]; Protocol Stop: 01/17/22 19:59 Last Admin: 01/17/22 16:42 Dose: 50 mls/hr Insulin Aspart (Insulin Aspart (Novolog) 100 Unit/Ml Vial) 0 unit SQ ACHS [facility]; Protocol Last Admin: 01/17/22 12:57 Dose: Not Given Lidocaine HCl (Lidocaine 1% (10mg/Ml) For Iv Start) 0.1 ml INTRADERMA PER PROTOCOL PRN PRN Reason: IV Start Magnesium Oxide (Magnesium Oxide 400 Mg Tab) 400 mg PO TID [facility] Last Admin: 01/17/22 16:42 Dose: 400 mg Metoprolol Tartrate (Metoprolol Tartrate 25 Mg Tab) 25 mg PO BID@0800,1600 [facility] Last Admin: 01/17/22 16:42 Dose: 25 mg Midodrine (Midodrine 5 Mg Tab) 10 mg PO AC-TID [facility] Last Admin: 01/17/22 13:12 Dose: 10 mg Miscellaneous Information (Phosphorus Replacement Protoco 1 Each Misc) 1 each MISCELLANE DAILY PRN; Protocol PRN Reason: Per Protocol Miscellaneous Information (Magnesium Replacement Protocol 1 Each Misc) 1 each MISCELLANE DAILY PRN; Protocol PRN Reason: Per Protocol Miscellaneous Information (Potassium Replacement Protocol 1 Each Misc) 1 each MISCELLANE DAILY PRN; Protocol PRN Reason: Per Protocol Multivitamins (Multivitamins, Thera 1 Each Tab) 1 each PO DAILY [facility] Last Admin: 01/17/22 10:09 Dose: 1 each Naloxone HCl (Naloxone 0.4 Mg/Ml 1 Ml Vial) 0.2 mg IV Q2M PRN PRN Reason: Opioid Reversal Ondansetron HCl (Ondansetron 4 Mg/2 Ml Vial) 4 mg IVP Q6HR PRN PRN Reason: Nausea And Vomiting Last Admin: 01/02/22 18:15 Dose: 4 mg Pantoprazole Sodium (Pantoprazole 40 Mg/10 Ml Vial) 40 mg IVP BID [facility] Last Admin: 01/17/22 10:07 Dose: 40 mg Sodium Chloride (Sodium Chloride 0.9% Flush 10 Ml Syringe) 10 ml IV Q4HR PRN PRN Reason: PICC Line Sodium Chloride (Sodium Chloride 0.9% Flush 10 Ml Syringe) 10 ml IV WEEKLY [facility] Sodium Chloride (Sodium Chloride 0.9% Flush 10 Ml Syringe) 20 ml IV Q4HR PRN PRN Reason: PICC Line Tamsulosin HCl (Tamsulosin 0.4 Mg Cap.Er.24h) 0.4 mg PO DAILY [facility] Last Admin: 01/17/22 10:09 Dose: 0.4 mg On examination: VITAL SIGNS: 98, 88, 15, 96/65, 99% room air GENERAL APPEARANCE: Tired , awake HEENT: Normal external appearance of nose and ear. Oral cavity normal EYES: Pupils equal. Conjunctiva normal. NECK: JVD unable to assess. Mass not palpable. RESPIRATORY: Respiratory effort increased. Decreased breath sounds to auscultation. CARDIOVASCULAR: First and second sounds normal. Some edema. ABDOMEN: Soft. Liver and spleen not palpable. No tenderness. No mass palpable. PSYCHIATRY: Answering questions appropriately Muscular skeletal: Stage IV pressure ulcer left buttock. With wound VAC INVESTIGATIONS, reviewed in the clinical context: January 17: White count 3.3 hemoglobin 7.7 platelets 129 potassium 3.2 creatinine 1.04 January 16: Potassium 3.6 creatinine 1.14 January 15: Potassium 2.6 creatinine 1.19 January 14: WBC 3.2 hemoglobin 9 at bedtime 114 potassium 3.9 creatinine 1.19 pro- calcitonin 0.28 albumin 1.6 CRP 5.5 January 13: White count 3.5 hemoglobin 10.4 platelets 95 January 6: WBC 4.5 hemoglobin 9.9 potassium 3.6 creatinine 1.2 to albumin 2.0 January 11: White count 5.6 hemoglobin 10.3 sodium 132 potassium 3.5 creatinine 1.24 January 10: Obesity 4.9 hemoglobin 8.4 platelets 137 sodium 137 potassium 3.3 creatinine 1.2 January 09: White count 5.6 hemoglobin 5.5 platelets 179 sodium 128 potassium 3.2 creatinine 1.25 albumin 2.2 LIVER: ULTRASOUND:. PRIOR CHOLECYSTECTOMY. COMPLEX AREA SEEN IN THE GALLBLADDER FOSSA. CONTAINING A FEW BUBBLES. CT abdomen: Persistent heterogenous hyperdense area in the hepatic parenchyma adjacent to the gallbladder fossa. Limited 2-D echocardiogram: Home LV function. Ultrasound venous Doppler: Positive DVT right lower extremity. Assessment and plan: Severe hypotension and shock state requiring pressors, possible septic shock : Some improvement Off levo fed. -Acute metabolic encephalopathy, multifactorial: Improvement -Complex liver collection adjacent to gallbladder fossa 2.7 cm Repeat computed tomography scan not suggestive of abscess/hematoma -Hyponatremia: Better Follow labs -Severe hypokalemia Replacementof -Persistent nausea and vomiting secondary to ileus,: Better -Acute right leg DVT Eliquis -Severe anorexia: Slow to respond On Marinol. Encourage oral intake -Dehydration and hypovolemia, improving -Unstageable chronic decubitus ulcer - wound VAC placement -Anemia of chronic diseases -Acute drop in hemoglobin from 10-5.5. Patient is on eliquis. -Hyperphosphatemia Supplement phosphorus -Essential Hypertension: Currently blood pressure running very low Decrease Lopressor to 25 mg twice a day. Hyperlipidemia -COPD DuoNeb 4 times a day -Chronic congestive heart failure with ejection fraction 55-60% On Lasix -Sinus tachycardia -Restless leg syndrome -BPH Flomax -Anorexia Marinol. -Chronic medical debility -Moderate protein calorie malnutrition from poor oral intake Has increased for a feeding tube.. On TPN and lipids DO NOT RESUSCITATE TPN and lipids. Continue current medication treatment plan. Prognosis guarded. Patient is agreed for a feeding tube. Lengthy discussion was had with the patient is nurse Vandana present. Dr. Jackson's team informed. Dark time spent about 40 minutes with over 25 minutes of discussion.
[2022-01-17 20:15] LABS: Glucose,Whole Blood 86 mg/dL (70-110)
[2022-01-17] MEDS: MAGNESIUM SULFATE-D5W PMX 1 GM in DEXTROSE/WATER 1 100ML.BAG IVPB SCH ×2 (21:21→22:44)
[2022-01-18] MEDS: 1: MVI, ADULT NO.4 WITH VIT K 10 ML, TRACE (CONC-1ML/DOSE) 1 ML, SODIUM CHLORIDE 4MEQ/ML IV SCH ×12 (00:11→18:00)
[2022-01-18 06:12] LABS: Glucose,Whole Blood 146 mg/dL (70-110)
[2022-01-18] MEDS: MIDODRINE 5 MG TAB PO SCH ×3 (06:45→16:44)
[2022-01-18] MEDS: INSULIN ASPART (NovoLOG) 100 UNIT/ML VIAL SQ SCH ×4 (06:45→21:00)
[2022-01-18] MEDS: IPRATROPIUM-ALBUTEROL 3 ML NEB INHALATION SCH ×4 (07:28→19:14)
--- NOTE | 2022-01-18 07:48 | P.PN ---
Subjective Progress Note Date: 01/16/22 Principal diagnosis: Possible abscess Patient is a 61-year-old male with multiple comorbidities including COPD diabetes hypertension in this patient who did have open cholecystectomy for gangrenous cholecystitis on 09/17/2021, subsequently admitted to the hospital for not eating and drinking and placement of a PEG tube patient also have a CT abdominal pelvis as well as ultrasound suspicious for fluid collection in the gallbladder fossa concerning for seroma versus abscess. On today's evaluation that is 01/16/2022, The patient denies having any fever or chills, patient is breathing comfortably on nasal cannula oxygen, denies any chest pain shortness of breath or cough no abdominal pain or diarrhea Objective - Vital Signs Vital signs: Vital Signs Temp 97.9 F 01/16/22 12:00 Pulse 104 H 01/16/22 16:00 Resp 18 01/16/22 12:00 BP 94/60 01/16/22 12:00 Pulse Ox 97 01/16/22 12:00 FiO2 28 01/02/22 16:04 Intake & Output 01/15/22 01/16/22 01/16/22 18:59 06:59 18:59 Intake Total 820 1340 Output Total 775 2150 2300 Balance 45 -810 -2300 Intake: IV 400 300 Potassium Chloride 20 meq 400 In Water For Injection 1 100ml.bag @ 50 mls/hr IVPB Q2H ERINN Rx#: [id number] Potassium Chloride 20 meq 200 In Water For Injection 1 100ml.bag @ 50 mls/hr IVPB Q2H ERINN Rx#: [id number] zosyn 100 Intake, IV Titration 420 1040 Amount Mvi, Adult No.4 with Vit 240 K 10 ml Trace (Conc-1Ml/ Dose) 1 ml Sodium Chloride 4Meq/ml Vial 10 meq In Amino Acid 4.25%- D10w+Lytes*E* 1,000 ml @ 60 mls/hr IV .BY DURATION ERINN Rx#:[id number] Mvi, Adult No.4 with Vit 180 840 K 10 ml Trace (Conc-1Ml/ Dose) 1 ml Sodium Chloride 4Meq/ml Vial 10 meq Potassium Chloride 20 meq In Amino Acid 4.25%- D10w+Lytes*E* 1,000 ml @ 60 mls/hr IV .BY DURATION ERINN Rx#:[id number] Potassium Chloride 20 meq 200 In Water For Injection 1 100ml.bag @ 50 mls/hr IVPB Q2H ERINN Rx#: [id number] Output: Urine 775 2150 2300 Other: Voiding Method Indwelling Catheter Indwelling Catheter Indwelling Catheter ABP, PAP, CO, CI - Last Documented Arterial Blood Pressure 130/71 - Exam GENERAL DESCRIPTION: Middle-aged male lying in bed in no distress RESPIRATORY SYSTEM: Unlabored breathing , decreased breath sounds at bases HEART: S1 S2 regular rate and rhythm , ABDOMEN: Soft , no tenderness EXTREMITIES: One plus edema feet Sacral wound is covered with a wound VAC, patient did have evidence of more necrotic area and maceration to the sacral area - Labs CBC & Chem 7: 01/17/22 14:58 01/17/22 14:58 Labs: Abnormal Lab Results - Last 24 Hours (Table) 01/15/22 01/16/22 01/16/22 Range/Units 21:01 06:52 09:50 Sodium 134 L (137-145) mmol/L Glucose 145 H (74-99) mg/dL POC Glucose (mg/dL) 125 H 127 H (70-110) mg/dL Calcium 7.4 L (8.4-10.2) mg/dL 01/16/22 Range/Units 11:35 Sodium (137-145) mmol/L Glucose (74-99) mg/dL POC Glucose (mg/dL) 175 H (70-110) mg/dL Calcium (8.4-10.2) mg/dL Assessment and Plan (1) Abnormal abdominal CT scan Current Visit: Yes Status: Acute Code(s): R93.5 - ABN FINDINGS ON DX IMAGING OF ABD REGIONS, INC RETROPERITON SNOMED Code(s): 26644810967858877 Plan: 1patient with abnormal CT as well as ultrasound of the liver gallbladder area concerning for possible fluid collection in the gallbladder. In this patient who did have a history of gangrenous cholecystitis s/p cholecystectomy on 09/17/2021 with concern for possible postop seroma versus abscess, patient was clinically not behaving as an abscess with no fever or elevated white count. 2detailed discussion with IR on 01/04/2022 and with high risk for any percutaneous intervention hence the right upper quadrant fluid was not drained 3 patient subsequently did have significant hypotension and has been transfe rred to ICU , blood culture has been obtained which are negative so for 4-patient recent abdominal pelvis CT was reviewed with radiologist collection in the gallbladder fossa seems like a hematoma and a spot significant increase in size the patient did have significant anasarca and did not mention any sacral destruction or erosion in this patient who did have a stage IV sacral pressure ulcer 5- patient noticed to have multiple areas of deep tissue injury to the sacral area which should be treated with a skin barrier cream keep the area off the pressure with frequent changing the position discussed with the nursing staff 6-patient hypotension more likely related to non-infectious etiology as the patient do not have any obvious focus of infection with negative culture and no fever on empiric Zosyn Time with Patient: Less than 30
--- NOTE | 2022-01-18 07:50 | P.PN ---
Subjective Progress Note Date: 01/17/22 Principal diagnosis: Possible abscess Patient is a 61-year-old male with multiple comorbidities including COPD diabetes hypertension in this patient who did have open cholecystectomy for gangrenous cholecystitis on 09/17/2021, subsequently admitted to the hospital for not eating and drinking and placement of a PEG tube patient also have a CT abdominal pelvis as well as ultrasound suspicious for fluid collection in the gallbladder fossa concerning for seroma versus abscess. On today's evaluation that is 01/17/2022, The patient denies having any fever or chills, patient is breathing comfortably on nasal cannula oxygen, denies any chest pain shortness of breath or cough no abdominal pain or diarrhea,, Patient did agreed for PEG tube placement surgery has been reconsulted Objective - Vital Signs Vital signs: Vital Signs Temp 97.7 F 01/17/22 08:00 Pulse 98 01/17/22 08:00 Resp 17 01/17/22 08:00 BP 97/64 01/17/22 08:00 Pulse Ox 97 01/17/22 08:00 FiO2 21 01/17/22 07:50 Intake & Output 01/16/22 01/17/22 01/17/22 18:59 06:59 18:59 Intake Total 1012.5 1603.5 0 Output Total 2300 1450 1320 Balance -1287.5 153.5 -1320 Weight 79.5 kg 79.5 kg Intake: IV 100 zosyn 100 Intake, IV Titration 1012.5 1503.5 Amount Mvi, Adult No.4 with Vit 1023.5 K 10 ml Trace (Conc-1Ml/ Dose) 1 ml Sodium Chloride 4Meq/ml Vial 10 meq Potassium Chloride 20 meq In Amino Acid 4.25%- D10w+Lytes*E* 1,000 ml @ 60 mls/hr IV .BY DURATION ERINN Rx#:[id number] Sodium Chloride 4Meq/ml 1012.5 480 Vial 10 meq Potassium Chloride 20 meq In Amino Acid 4.25%-D10w+Lytes*E* 1,000 ml @ 60 mls/hr IV . BY DURATION ERINN Rx#: [id number] Oral 0 Output: Urine 2300 1450 1320 Other: Voiding Method Indwelling Catheter Indwelling Catheter Indwelling Catheter # Voids 2 # Bowel Movements 1 ABP, PAP, CO, CI - Last Documented Arterial Blood Pressure 130/71 - Exam GENERAL DESCRIPTION: Middle-aged male lying in bed in no distress RESPIRATORY SYSTEM: Unlabored breathing , decreased breath sounds at bases HEART: S1 S2 regular rate and rhythm , ABDOMEN: Soft , no tenderness EXTREMITIES: One plus edema feet Sacral wound is covered with a wound VAC, patient did have evidence of more ne crotic area and maceration to the sacral area - Labs CBC & Chem 7: 01/17/22 14:58 01/17/22 14:58 Labs: Abnormal Lab Results - Last 24 Hours (Table) 01/16/22 01/17/22 Range/Units 20:47 11:35 POC Glucose (mg/dL) 164 H 126 H (70-110) mg/dL Assessment and Plan (1) Abnormal abdominal CT scan Current Visit: Yes Status: Acute Code(s): R93.5 - ABN FINDINGS ON DX IMAGING OF ABD REGIONS, INC RETROPERITON SNOMED Code(s): 82973148074668990 Plan: 1patient with abnormal CT as well as ultrasound of the liver gallbladder area concerning for possible fluid collection in the gallbladder. In this patient who did have a history of gangrenous cholecystitis s/p cholecystectomy on 09/17/2021 with concern for possible postop seroma versus abscess, patient was c linically not behaving as an abscess with no fever or elevated white count. 2detailed discussion with IR on 01/04/2022 and with high risk for any percutaneous intervention hence the right upper quadrant fluid was not drained 3 patient subsequently did have significant hypotension and has been proctor sferred to ICU , blood culture has been obtained which are negative so for 4-patient recent abdominal pelvis CT was reviewed with radiologist collection in the gallbladder fossa seems like a hematoma and a spot significant increase in size the patient did have significant anasarca and did not mention any sacral destruction or erosion in this patient who did have a stage IV sacral pressure ulcer 5- patient noticed to have multiple areas of deep tissue injury to the sacral area which should be treated with a skin barrier cream keep the area off the pressure with frequent changing the position discussed with the nursing staff 6-patient hypotension more likely related to non-infectious etiology as the patient do not have any obvious focus of infection with negative culture and May consider discontinuation of antibiotic and will avoid the patient closely off antibiotics Time with Patient: Less than 30
[2022-01-18 08:16] LABS: Anisocytosis Slight; HCT 25.2 % (39.0-53.0); HGB 8.6 gm/dL (13.0-17.5); MCH 29.6 pg (25.0-35.0); MCHC 34.2 g/dL (31.0-37.0); MCV 86.5 fL (80.0-100.0); Mean Platelet Volume 8.7; Platelet Count 148 k/uL (150-450); RBC 2.92 m/uL (4.30-5.90); RDW 18.7 % (11.5-15.5); WBC 4.6 k/uL (3.8-10.6)
[2022-01-18 09:25] LABS: ALT 27 U/L (4-49); AST 47 U/L (17-59); African American GFR (CKD) >90 (>60 ml/min/1.73 sqM); Albumin 1.9 g/dL (3.5-5.0); Alkaline Phosphatase 215 U/L (38-126); Anion Gap 2 mmol/L; Blood Urea Nitrogen 22 mg/dL (9-20); Carbon Dioxide 29 mmol/L (22-30); Chloride 103 mmol/L (98-107); Glucose 105 mg/dL (74-99); Magnesium 2.2 mg/dL (1.6-2.3); Non-African American GFR(CKD) 81 (>60 ml/min/1.73 sqM); Potassium 4.2 mmol/L (3.5-5.1); Sodium 134 mmol/L (137-145); Total Bilirubin 0.3 mg/dL (0.2-1.3)
[2022-01-18 11:27] LABS: Erythrocyte Sedimentation Rate 28 mm/hr (0-15)
[2022-01-18 11:41] LABS: Glucose,Whole Blood 127 mg/dL (70-110)
--- NOTE | 2022-01-18 12:10 | P.PN ---
Subjective Progress Note Date: 01/18/22 Principal diagnosis: Failure to thrive. On 01/16/2022 patient seen in follow-up on a monitored bed on selective care unit. He was transferred out of intensive care unit yesterday, his had no acute events overnight, he is awake and alert, denies any shortness of breath, his pulse ox is 96-98%, breathing comfortably. Seems to be comfortable. Patient is generally quite weak, he had not been out of bed, physical therapy has been consulted. He has a large sacral decubitus ulcer with a wound VAC in place. However patient is awake and alert, he is oriented 3, he follows command, and responds appropriately. His vital signs have been stable, his had no fever or chills. Patient remains on Zosyn for antibiotic coverage. ID service is following, blood cultures have shown no growth. Today's labs have been reviewed showing sodium of 134, potassium 3.6, BUN of 18 creatinine is 1.14. Procalcitonin level slightly improved and is down to 0.28. Progress note dated 01/17/2022. The patient is seen again today in room 380. He is now been in the hospital for 17 days. The patient was recently in the intensive care unit. Currently, the patient is on room air, with a saturation of 97%. The patient is receiving TPN. The patient also has a large sacral decubitus ulcer, with a wound VAC in place. No new labs today. Progress note dated 01/18/2022. The patient is again seen today in room 380. Patient is now been in the hospital for 15 days. The patient is apparently scheduled for a PEG tube placement today by one of the surgeons. He is currently on room air. He is getting saline at 10 mL an hour. He is getting TPN at 60 mL an hour. White count 4.6, hemoglobin 8.6, hematocrit 25.2, platelet count 248,000. Sodium 134, potassium 4.2, chlorides 103, CO2 29, with a BUN of 22, and creatinine 1.01. The patient's pro-calcitonin level is low at 0.23. Blood cultures are negative. Objective - Vital Signs Vital signs: Vital Signs Temp 97.8 F 01/18/22 08:40 Pulse 88 01/18/22 11:40 Resp 16 01/18/22 08:40 BP 104/70 01/18/22 08:40 Pulse Ox 99 01/18/22 08:40 FiO2 21 01/18/22 07:29 Intake & Output 01/17/22 01/18/22 01/18/22 18:59 06:59 18:59 Intake Total 1040 200 Output Total 1720 1924 475 Balance -115 -4846 -485 Weight 79.5 kg 71 kg Intake: IV 200 0.9 NACL 100 zosyn 100 Intake, IV Titration 1040 Amount Piperacillin-Tazobactam 3 100 .375 gm In Sodium Chloride 0.9% 100 ml @ 25 mls/hr IVPB Q8HR ERINN Rx# :[id number] Potassium Chloride 20 meq 100 In Water For Injection 1 100ml.bag @ 50 mls/hr IVPB Q2H ERINN Rx#: [id number] Sodium Chloride 0.9% 1, 120 000 ml @ 10 mls/hr IV . Q24H ERINN Rx#:[id number] Sodium Chloride 4Meq/ml 720 Vial 16 meq Potassium Chloride 40 meq Magnesium Sulfate gm 0.5 gm In Amino Acid 5%-D15w+Lytes* E* 1,000 ml @ 60 mls/hr IV .BY DURATION ERINN Rx#: [id number] Oral 0 Output: Drainage 400 Left Buttock 400 Urine 1320 1925 475 Other: Voiding Method Indwelling Catheter Indwelling Catheter Indwelling Catheter # Bowel Movements 1 ABP, PAP, CO, CI - Last Documented Arterial Blood Pressure 130/71 - Exam No acute distress, oriented 3. Flat affect. Room air saturation 99 %. HEENT examination is grossly unremarkable. Neck supple. Full range of motion. No adenopathy thyromegaly or neck vein distention. Cardiovascular examination reveals regular rhythm rate. S1-S2 normal. No S3 or S4. No discernible murmur noted. Heart rate 88 bpm. Lungs reveal clear breath sounds. Breath sounds are equal bilaterally. No adventitious lung sounds including wheezes rhonchi or crackles. Abdomen soft bowel sounds are heard. No masses or tenderness. Extremities are intact. No cyanosis clubbing or edema. Skin is without rash or lesion. Neurologic examination is brief but nonfocal. - Labs CBC & Chem 7: 01/18/22 07:55 01/18/22 07:55 Labs: Abnormal Lab Results - Last 24 Hours (Table) 07/05/3101/17/22 01/17/22 Range/Units 14:58 14:58 16:41 WBC 3.3 L (3.8-10.6) k/uL RBC 2.65 L (4.30-5.90) m/uL Hgb 7.7 L (13.0-17.5) gm/dL Hct 23.8 L (39.0-53.0) % RDW 18.8 H (11.5-15.5) % Plt Count 129 L (150-450) k/uL Lymphocytes # 0.7 L (1.0-4.8) k/uL ESR (0-15) mm/hr Sodium 132 L (137-145) mmol/L Potassium 3.2 L (3.5-5.1) mmol/L Carbon Dioxide 32 H (22-30) mmol/L BUN 21 H (9-20) mg/dL Glucose 143 H (74-99) mg/dL POC Glucose (mg/dL) 135 H (70-110) mg/dL Calcium 7.5 L (8.4-10.2) mg/dL Alkaline Phosphatase (38-126) U/L C-Reactive Protein (<1.0) mg/dL Total Protein (6.3-8.2) g/dL Albumin (3.5-5.0) g/dL Procalcitonin (0.02-0.09) ng/mL 01/18/22 01/18/22 01/18/22 Range/Units 06:11 07:55 07:55 WBC (3.8-10.6) k/uL RBC 2.92 L (4.30-5.90) m/uL Hgb 8.6 L (13.0-17.5) gm/dL Hct 25.2 L (39.0-53.0) % RDW 18.7 H (11.5-15.5) % Plt Count 148 L (150-450) k/uL Lymphocytes # (1.0-4.8) k/uL ESR 28 H (0-15) mm/hr Sodium 134 L (137-145) mmol/L Potassium (3.5-5.1) mmol/L Carbon Dioxide (22-30) mmol/L BUN 22 H (9-20) mg/dL Glucose 105 H (74-99) mg/dL POC Glucose (mg/dL) 146 H (70-110) mg/dL Calcium 8.0 L (8.4-10.2) mg/dL Alkaline Phosphatase 215 H (38-126) U/L C-Reactive Protein 5.0 H (<1.0) mg/dL Total Protein 4.0 L (6.3-8.2) g/dL Albumin 1.9 L (3.5-5.0) g/dL Procalcitonin (0.02-0.09) ng/mL 01/18/22 01/18/22 Range/Units 07:55 11:39 WBC (3.8-10.6) k/uL RBC (4.30-5.90) m/uL Hgb (13.0-17.5) gm/dL Hct (39.0-53.0) % RDW (11.5-15.5) % Plt Count (150-450) k/uL Lymphocytes # (1.0-4.8) k/uL ESR (0-15) mm/hr Sodium (137-145) mmol/L Potassium (3.5-5.1) mmol/L Carbon Dioxide (22-30) mmol/L BUN (9-20) mg/dL Glucose (74-99) mg/dL POC Glucose (mg/dL) 127 H (70-110) mg/dL Calcium (8.4-10.2) mg/dL Alkaline Phosphatase (38-126) U/L C-Reactive Protein (<1.0) mg/dL Total Protein (6.3-8.2) g/dL Albumin (3.5-5.0) g/dL Procalcitonin 0.23 H (0.02-0.09) ng/mL Assessment and Plan Assessment: Septic shock, possibly secondary to sacral decubitus ulcer. Blood cultures negative. Metabolic encephalopathy secondary to sepsis. History of gangrenous cholecystitis, status post open cholecystectomy. History of DVT. Stage IV decubitus ulcer, with wound VAC in place. Hypoalbuminemia. Non-anion gap metabolic acidosis. Type 2 diabetes mellitus. Chronic bronchial asthma, stable. Obstructive sleep apnea syndrome. Essential hypertension. Hyperlipidemia. General medical debility. Chronic anemia. Plan: Plan dated 01/17/2022. The patient remains on TPN, and Zosyn. The wound VAC remains in place. Labs, x-rays, and medications are reviewed. The patient's overall prognosis remains very poor. The patient will likely need placement after discharge to an extended care facility. The patient is a DO NOT RESUSCITATE patient. We will continue to follow and make recommendations where appropriate. Plan dated 01/18/2022. The plan today is to place a feeding tube. The patient currently remains on TPN. The antibiotics have been discontinued. Cultures are negative. Pro- calcitonin level is only 0.23. No additional recommendations are made. We will continue to follow the patient. The patient is a DO NOT RESUSCITATE patient. He likely is to be discharged to a nursing facility after the feeding tube is placed. Time with Patient: Less than 30
[2022-01-18] MEDS ORDERED: PROPOFOL 10 MG/ML 20 ML VIAL IV ONE (12:34)
[2022-01-18] MEDS ORDERED: PHENYLEPHRINE-0.9% NACL SYG 1,000 MCG/10 ML SYRINGE ONE (12:34)
[2022-01-18] MEDS ORDERED: LIDOCAINE 2% INJ 20 MG/ML (2 ML VIAL) ONE (12:34)
[2022-01-18] MEDS ORDERED: IV FLUID CONTINUATION 1,000 ML IV ONE (12:36)
--- NOTE | 2022-01-18 13:00 | P.OP ---
Date of Procedure: 01/18/22 Preoperative Diagnosis: Malnutrition Postoperative Diagnosis: Malnutrition Procedure(s) Performed: EGD with PEG tube placement Anesthesia: MAC Surgeon: Clint Jackson Pathology: none sent Condition: stable Disposition: PACU Description of Procedure: Patient received IV sedation. Next the gastroscope placed oropharynx passed in the esophagus and stomach. There is no evidence of any outlet obstruction. Stomach was insufflated with air. The light reflux seen the anterior abdominal wall. The abdomen was prepped and draped usual fashion. The skin was incised. And the needles placed and stomach under direct visualization. The needle was snared. And the wires placed through the needle and the wire was snared and brought the oropharynx. The PEG tube was placed over top the wire brought down to the stomach. The PEG tube was secured. At the 3 cm eugene. The one-piece bolster was used. Patient tolerated procedure well.
[2022-01-18] MEDS: METOPROLOL TARTRATE 25 MG TAB PO SCH ×3 (16:38→16:47)
[2022-01-18] MEDS: CHOLECALCIFEROL 25 MCG (1000 IU) TABLET PO SCH (16:38)
[2022-01-18] MEDS: FOLIC ACID 1 MG TAB PO SCH (16:38)
[2022-01-18] MEDS: ASCORBIC ACID 500 MG TAB PO SCH (16:38)
[2022-01-18] MEDS: PANTOPRAZOLE 40 MG/10 ML VIAL IVP SCH ×2 (16:38→21:02)
[2022-01-18] MEDS: MULTIVITAMINS, THERA 1 EACH TAB PO SCH (16:38)
[2022-01-18 16:39] LABS: Glucose,Whole Blood 167 mg/dL (70-110)
[2022-01-18] MEDS: MAGNESIUM OXIDE 400 MG TAB PO SCH ×3 (16:39→21:02)
[2022-01-18] MEDS: TAMSULOSIN 0.4 MG CAP.ER.24H PO SCH (16:39)
[2022-01-18] MEDS: FLUDROCORTISONE 0.1 MG TAB PO SCH ×2 (16:39→21:01)
[2022-01-18] MEDS: FUROSEMIDE 10 MG/ML 4 ML VIAL IV SCH ×2 (16:39→21:02)
[2022-01-18] MEDS: SODIUM CHLORIDE 0.9% 1,000 ML IV SCH (16:41)
--- NOTE | 2022-01-18 19:01 | P.PN ---
Progress Note - Text Progress Note Date: 01/18/22 Hospital course: this is a pleasant 61 yo M with past medical history of COPD, Diabetes Mellitus, Deep Vein Thrombosis, Hyperlipidemia, Hypertension, Sleep Apnea/CPAP/BIPAP He was in the hospital on 09/2021 for severe hypertension from decreased oral intake, acute metabolic encephalopathy, chronic congestive heart failure, diastolic with ejection fraction 55-60%, acute kidney injury, sinus tachycardia, status post cholecystectomy for his gangrenous cholecystitis, restless leg syndrome, BPH, chronic medical debility i talkled to the pt and at bed side , pt is from care home , he was care home since June 2021. At that time she was in the hospital for acute hypoxic respiratory failure of unknown causes. He needed intubation at that time. He had complete opacification in the left hemithorax he had 2 bronchoscopy done which was negative for microbial growth. He has another admission on 09/2021. Patient and states that he came here because he wanted to get the PEG tube because he was not eating anything since June and he lost a lot of weight he used to weigh 333 pounds and now 193. He states that his main issue is no appetite, he denies choking but he has sometimes nausea that prevent him from eating. Is also short of breath with cough and clear yellow phlegm but no chest pain, no abdominal pain. He has loose bowel movement once or twice a week. Also he has unstageable pressure decubitus ulcer status post debridement, he has wound VAC in place. Patient also complaining of from chronic left leg pain and tenderness, he would not allow someone to drop his leg because it hurts a lot. Inspection looks normal, no trauma. Also was complaining from weakness in both lower extremities since June Patient is tachycardic around 110, on admission heart rate was 125 afebrile. His lab reviewed including CBC showed mild anemia of 11.9, rest of CBC is un remarkable. INR is unremarkable at 1.1. Sodium was low at 123. Creatinine normal 0.8. Glucose was low at 66. Chest x-ray: No acute process. 01/02/2022 Last night patient was started on therapeutic dose Lovenox for acute right leg DVT, CT angiography chest and echo could not be done because have no IV access, patient was transferred to a small IV access was obtained in the right upper arm, not good enough for CT of the chest test or aggressive treatment. However IV fluids could be provided. Blood pressure is improved up to 110/68, however patient still tachycardic. Patient could not eat because of severe nausea and vomiting, H time he put something in his monthly follow-up as per bedside nurse, KUB showing some evidence of ileus, surgical team consult obtained. Social evaluation under direct consults are pending. 01/03/2022 Patient awake alert, looks more comfortable than the first taken to the hospital, less tachypneic, he denies any chest pain or abdominal pain. He tried to take small bites of mashed potato yesterday and he could not consume it and he immediately felt to throw up. CT of the chest is negative for PE, he remains on Lovenox for acute right DVT. CT of the abdomen is suspicious for a complex collection possible abscess although it's the size 5 cm diameter 2.7 cm, recommended ultrasound versus MRI, were going to order a liver ultrasound although it is of less sensitivity especially with this patient large body habitus however it is less invasive than MRI. Also flowcalcitonin is the slightly elevated. He is slightly tachycardic although is better than before. Blood pressure 93/63. Today sodium dropped 127 down to 122 because of this we held his IV fluids and reordered anemia workup in the urine and the serum, we will monitor his sodium level tomorrow if no improvement and may consider further workup. Surgical team consult is called, the plan for PEG tube placement on . Patient originally came to the hospital the PEG tube placement. Patient is not consuming his oral medication but we stopped his gabapentin and ropinirole. 01/04/2022 Kirsten Bach feels better today, he does not feel dizziness while he is lying in bed all the time. He still have low appetite but no chest pain or dyspnea, no abdominal pain. He still complaining from pain in his legs and he has right leg DVT been on Lovenox with plan to switch him to heparin drip on today as he got midline Blood pressure is 87/56, heart rate 120, sodium is 121 On admission his sodium was still low and was started on D5 normal saline at 100 mL/h however after initial improvement sodium dropped to 121 yesterday so we held his IV fluid and the evening sodium improved 124 (no iv lasix given), however this morning is 121 again. We send urine studies and I'll consult emergency vehicle technician. Also patient has negative CTPA for pulmonary embolism but CT of the abdomen and pelvis showing possible gallbladder fossa abscess or complex fluid collection although it is improved from previous 5 cm down to 2.7 centimeters. The recommended liver ultrasound versus MRI, ultrasound shows the same findings. Also surgery due on the case 01/05/2022 Last night his blood pressure dropped with systolic and 50s, there was a rapid response a team response and he was as stated with IV fluids aggressively, his blood pressure improved in 90s this morning and during the round he was awake and alert looks tired but is appropriate. Sodium was 121 and then 119. He denied any chest pain or abdominal pain, no other complaints clinically. His losing from his puncture wound in the right lower abdomen was a stopped, he was started on heparin drip per recommendation of aquatics lifeguard. After once by the evening time his blood pressure dropped again was 53/32 with altered mental status, there was another rapid response where patient was transferred to the ICU and levophed was started and his mentation started to improve again. Patient was started also on antibiotic empirically with Zosyn and IV vancomycin total infection ruled out completely as there is still high suspicion, with possible sources including the pressure wound sacral ulcer in the lower back, and less likely the gallbladder bed and fossa with 2.7 cm fluid collection (felt less likely because actually it decreased in size from 5.0 cm previously) After transfer patient and at bedside opted for the DO NOT RESUSCITATE order as per bedside nurse. 01/06/2022 Yesterday patient was still deteriorating, however today patient turned around and start improving patient remains in the ICU he needs to pressors we will fit and vasopressin, lactic acid trending up 6.4. Patient mentation is also deteriorated and become more confused and less responsive. His creatinine remains around 1 although he has low urine output. Patient is resuscitated with many fluids and also his broad-spectrum antibiotics with IV vancomycin and Zosyn, as septic shock is highly suspected is the cause of the patient profound hypotension and shock state. Although other factors might be contributing to it. Because of this we started the patient on hydrocortisone to increase the sensitivity of the adrenergic receptors to the catecholamine. Also replacing electrolytes including calcium and magnesium. Sodium slightly trending up. Patient remains in critical condition. Family at bedside 01/07/2022 Patient today workup and he was awake alert and oriented 3, he follows commands, he feels hungry and actually he started tolerating diet for the first time after several months. He denies any respiratory symptoms, his abdomen looks benign, no other new complaints. Blood pressure is improving and he required less pressors, currently blood pressure is 87/61, is less tachycardic around 110. He is currently on levophed 0.03 which is decreased from yesterday. Last night we added hydrocortisone 100 mg 3 times a day as a replacement therapy but to support blood pressure and increased sensitivity of levophed to its adrenergic receptors. Since blood pressure improvement with lower dose to 50 mg today, possibly we will discontinue it in one or 2 days once blood pressure keep improvement. Also patient receiving fluids. Labs looks stable, hemoglobin 9.8, sodium 126 he remains on Zosyn, vancomycin was discontinued. He remains on Zosyn. Anticoagulation is switched to Eliquis therapeutic dose at 10 mg which could be switched to 5 mg on 01/17. Prognosis remains guarded 01/08/2022 Patient is awake but drowsy, His blood pressure is improving but he still on pressors although is requiring less amount He has poor urine output but creatinine is around 1.1. His GFR is 66. He is going to receive 1 dose of Lasix 80 mg today. Also significant sodium bicarb and albumin infusion. He remains on Zosyn Anticoagulation with Eliquis January 09 2022: I assumed care of patient today. ICU: Tired. Lethargic. Patient drips include vasopressin and norepinephrine. the bedside. Getting 2 units of PRBC. Received IV albumin yesterday. Also received some IV diuretics. 2 L nasal cannula. Hemoglobin 5.5 today. On IV Zosyn. Wound VAC. On clear liquids. 01/10/2022: ICU: Remains in bed. Tired. Lethargic. Following simple commands. On IV levo fed. IV Zosyn. Discussed with at the bedside. Eating small amounts. Receive 2 units of blood yesterday. 01/11/2022: ICU: Tired lethargic. at the bedside. IV levo fed. Poor oral intake. Discussed with Dr. Dong from ID. Rule out right upper quadrant abscess versus infected hematoma. Computed tomography scan with contrast ordered. 01/12/2022: ICU: Drip planning a bit. But more awake. Answers simple questions. Poor oral intake. Discussed with the patient. Refuses PEG tube. present. Computed tomography scan abdomen canceled by Dr. Chow. BP is running on the lower side. Decrease Lopressor to 25 mg twice a day. 01/13/2022: ICU: Remains tired lethargic. TPN lipids ordered by pulmonary. Spoke to the patient and at the bedside. Patient refuses NG tube feeding. Did also inform them that sleep 2 first consequences including . No changing his mind. Spoke to the at the bedside. She'll have a brother come in and talked with the patient again. Computed tomography scan abdomen results discussed with the radiologist. Right upper quadrant no obvious abscess or hematoma. A lot of fluids/third spacing. 01/14/2022: ICU: Tired. I again spoke to the and the patient. Does not want to feeding of any sorts. Has TPN lipids running. Also discussed that this is very temporary. Blood pressure running low. Jeremiah wrap ordered with Denise. Prognosis poor. Also discussed with Dr. Hawk from pulmonary. Patient was placed on levo fed last night. 01/15/2022: ICU: Remains diet. A bit more awake. present. Again spoke to patient and the at the bedside. He does not want any PEG tube or NG tube feeding. Getting TPN lipids. I again explained poor prognosis. Including . 01/16/2022: Patient medical floor. Getting TPN lipids. Present this patient's , daughter, [id number]. Patient is to feeding including NG tube was again discussed. Patient does not want the same. Hospice was discussed. They do not want the same. Plan is for patient to go back to inpatient rehab understanding the prognosis which is poor which is again discussed. Patient eating minimal. 01/17/2022: Getting TPN lipids. Oral intake poor. Had a very lengthy discussion at the bedside. The patient, his and nurse Vandana present. After load obesity with the patient he is agreed to proceed with a PEG tube. Dr. Renetta kaye is being informed. 01/18/2022: Patient received a PEG tube today by Dr. Jackson. Postprocedure comfortable. More talkative a bit more cheerful today. On TPN lipids. Active Medications Albuterol Sulfate (Albuterol Nebulized 2.5 Mg/3 Ml) 2.5 mg INHALATION Q2H PRN PRN Reason: AIRWAY PATENCY Last Admin: 01/17/22 03:12 Dose: 2.5 mg Albuterol/Ipratropium (Ipratropium-Albuterol 3 Ml Neb) 3 ml INHALATION RT-QID [facility] Last Admin: 01/18/22 15:02 Dose: 3 ml Ascorbic Acid (Ascorbic Acid 500 Mg Tab) 1,000 mg PO DAILY@0800 [facility] Last Admin: 01/18/22 16:38 Dose: 1,000 mg Cholecalciferol (Cholecalciferol 25 Mcg (1000 Iu) Tablet) 25 mcg PO DAILY [facility] Last Admin: 01/18/22 16:38 Dose: 25 mcg Dronabinol (Dronabinol 2.5 Mg Cap) 5 mg PO BID@1200,1700 [facility] Last Admin: 01/18/22 16:44 Dose: 5 mg Fludrocortisone Acetate (Fludrocortisone 0.1 Mg Tab) 0.05 mg PO BID [facility] Last Admin: 01/18/22 16:39 Dose: Not Given Folic Acid (Folic Acid 1 Mg Tab) 1 mg PO DAILY [facility] Last Admin: 01/18/22 16:38 Dose: 1 mg Furosemide (Furosemide 10 Mg/Ml 4 Ml Vial) 40 mg IV BID [facility] Last Admin: 01/18/22 16:39 Dose: 40 mg Sodium Chloride (Saline 0.9%) 1,000 mls @ 10 mls/hr IV .Q24H [facility] Last Admin: 01/18/22 16:41 Dose: Not Given Parenteral Vitamin Supplement 10 ml/ Zinc/Copper/Manganese/Selenium 1 ml/ Sodium Chloride 16 meq/ Potassium Chloride 40 meq/ Magnesium Sulfate 0.5 gm / Amino Ac/Electrol/Dextrose/Calcium 1,036 mls @ 60 mls/hr IV .BY DURATION [facility] Last Admin: 01/18/22 18:00 Dose: 60 mls/hr Sodium Chloride 16 meq/Potassium Chloride 40 meq/Magnesium Sulfate 0.5 gm/Amino Ac/Electrol/Dextrose/Calcium 1,025 mls @ 60 mls/hr IV .BY DURATION [facility] Last Admin: 01/18/22 00:11 Dose: 60 mls/hr Insulin Aspart (Insulin Aspart (Novolog) 100 Unit/Ml Vial) 0 unit SQ ACHS [facility]; Protocol Last Admin: 01/18/22 17:59 Dose: 2 unit Lidocaine HCl (Lidocaine 1% (10mg/Ml) For Iv Start) 0.1 ml INTRADERMA PER PROTOCOL PRN PRN Reason: IV Start Magnesium Oxide (Magnesium Oxide 400 Mg Tab) 400 mg PO TID [facility] Last Admin: 01/18/22 16:40 Dose: 400 mg Metoprolol Tartrate (Metoprolol Tartrate 25 Mg Tab) 25 mg PO BID@0800,1600 [facility] Last Admin: 01/18/22 16:47 Dose: 25 mg Midodrine (Midodrine 5 Mg Tab) 10 mg PO AC-TID [facility] Last Admin: 01/18/22 16:44 Dose: 10 mg Miscellaneous Information (Phosphorus Replacement Protoco 1 Each Misc) 1 each MISCELLANE DAILY PRN; Protocol PRN Reason: Per Protocol Miscellaneous Information (Magnesium Replacement Protocol 1 Each Misc) 1 each MISCELLANE DAILY PRN; Protocol PRN Reason: Per Protocol Miscellaneous Information (Potassium Replacement Protocol 1 Each Misc) 1 each MISCELLANE DAILY PRN; Protocol PRN Reason: Per Protocol Multivitamins (Multivitamins, Thera 1 Each Tab) 1 each PO DAILY [facility] Last Admin: 01/18/22 16:38 Dose: 1 each Ondansetron HCl (Ondansetron 4 Mg/2 Ml Vial) 4 mg IVP Q6HR PRN PRN Reason: Nausea And Vomiting Last Admin: 01/02/22 18:15 Dose: 4 mg Pantoprazole Sodium (Pantoprazole 40 Mg/10 Ml Vial) 40 mg IVP BID [facility] Last Admin: 01/18/22 16:38 Dose: 40 mg Sodium Chloride (Sodium Chloride 0.9% Flush 10 Ml Syringe) 10 ml IV Q4HR PRN PRN Reason: PICC Line Sodium Chloride (Sodium Chloride 0.9% Flush 10 Ml Syringe) 10 ml IV WEEKLY [facility] Sodium Chloride (Sodium Chloride 0.9% Flush 10 Ml Syringe) 20 ml IV Q4HR PRN PRN Reason: PICC Line Tamsulosin HCl (Tamsulosin 0.4 Mg Cap.Er.24h) 0.4 mg PO DAILY [facility] Last Admin: 01/18/22 16:39 Dose: 0.4 mg On examination: VITAL SIGNS: 98, 83, 14, 10 3 x 68, 96% room air GENERAL APPEARANCE: More awake and talkative today. HEENT: Normal external appearance of nose and ear. Oral cavity normal EYES: Pupils equal. Conjunctiva normal. NECK: JVD unable to assess. Mass not palpable. RESPIRATORY: Respiratory effort increased. Decreased breath sounds to auscultation. CARDIOVASCULAR: First and second sounds normal. Some edema. ABDOMEN: Soft. Liver and spleen not palpable. No tenderness. No mass palpable. PSYCHIATRY: AO 3. Muscular skeletal: Stage IV pressure ulcer left buttock. With wound VAC INVESTIGATIONS, reviewed in the clinical context: January 18: WBC 4.6 hemoglobin 8.6 potassium 4.2 creatinine 1.01 January 17: White count 3.3 hemoglobin 7.7 platelets 129 potassium 3.2 creatinine 1.04 January 16: Potassium 3.6 creatinine 1.14 January 15: Potassium 2.6 creatinine 1.19 January 14: WBC 3.2 hemoglobin 9 at bedtime 114 potassium 3.9 creatinine 1.19 pro- calcitonin 0.28 albumin 1.6 CRP 5.5 January 13: White count 3.5 hemoglobin 10.4 platelets 95 January 6: WBC 4.5 hemoglobin 9.9 potassium 3.6 creatinine 1.2 to albumin 2.0 January 11: White count 5.6 hemoglobin 10.3 sodium 132 potassium 3.5 creatinine 1.24 January 10: Obesity 4.9 hemoglobin 8.4 platelets 137 sodium 137 potassium 3.3 creatinine 1.2 January 09: White count 5.6 hemoglobin 5.5 platelets 179 sodium 128 potassium 3.2 creatinine 1.25 albumin 2.2 LIVER: ULTRASOUND:. PRIOR CHOLECYSTECTOMY. COMPLEX AREA SEEN IN THE GALLBLADDER FOSSA. CONTAINING A FEW BUBBLES. CT abdomen: Persistent heterogenous hyperdense area in the hepatic parenchyma adjacent to the gallbladder fossa. Limited 2-D echocardiogram: Home LV function. Ultrasound venous Doppler: Positive DVT right lower extremity. Assessment and plan: Severe hypotension and shock state requiring pressors, possible septic shock : Some improvement Off levo fed. -Acute metabolic encephalopathy, multifactorial: Improvement -Complex liver collection adjacent to gallbladder fossa 2.7 cm Repeat computed tomography scan not suggestive of abscess/hematoma -Hyponatremia: Better Follow labs -Severe hypokalemia: Better Replacementnone -Persistent nausea and vomiting secondary to ileus,: Better -Acute right leg DVT Eliquis -Severe anorexia: Slow to respond On Marinol. Encourage oral intake -Dehydration and hypovolemia, improving -Unstageable chronic decubitus ulcer - wound VAC placement -Anemia of chronic diseases -Acute drop in hemoglobin from 10-5.5. Patient is on eliquis. -Hyperphosphatemia Supplement phosphorus -Hypotension multifactorial Florinef 0.05 mg by mouth twice a day, midodrine 10 mg 3 times a day Hyperlipidemia -COPD DuoNeb 4 times a day -Chronic congestive heart failure with ejection fraction 55-60% On Lasix. Lopressor -Sinus tachycardia -Restless leg syndrome -BPH Flomax -Anorexia Marinol. -Chronic medical debility -Moderate protein calorie malnutrition from poor oral intake peg tube placed January 18. On TPN and lipids DO NOT RESUSCITATE TPN and lipids. Continue current medication treatment plan. Prognosis guarded. Patient received a PEG tube today. Discussed with patient. Tube feeding to start tomorrow. Other medications to continue.
[2022-01-18 20:50] LABS: Glucose,Whole Blood 95 mg/dL (70-110)
[2022-01-19 06:24] LABS: Glucose,Whole Blood 135 mg/dL (70-110)
[2022-01-19] MEDS: INSULIN ASPART (NovoLOG) 100 UNIT/ML VIAL SQ SCH ×4 (06:49→20:47)
[2022-01-19] MEDS: MIDODRINE 5 MG TAB PO SCH ×3 (06:49→16:16)
[2022-01-19] MEDS: IPRATROPIUM-ALBUTEROL 3 ML NEB INHALATION SCH ×4 (07:42→20:54)
[2022-01-19] MEDS: TAMSULOSIN 0.4 MG CAP.ER.24H PO SCH (08:33)
[2022-01-19] MEDS: CHOLECALCIFEROL 25 MCG (1000 IU) TABLET PO SCH (08:33)
[2022-01-19] MEDS: METOPROLOL TARTRATE 25 MG TAB PO SCH ×2 (08:33→16:16)
[2022-01-19] MEDS: FOLIC ACID 1 MG TAB PO SCH (08:33)
[2022-01-19] MEDS: MAGNESIUM OXIDE 400 MG TAB PO SCH ×2 (08:33→16:16)
[2022-01-19] MEDS: FLUDROCORTISONE 0.1 MG TAB PO SCH ×2 (08:33→20:47)
[2022-01-19] MEDS: PANTOPRAZOLE 40 MG/10 ML VIAL IVP SCH (08:33)
[2022-01-19] MEDS: MULTIVITAMINS, THERA 1 EACH TAB PO SCH (08:33)
[2022-01-19] MEDS: ASCORBIC ACID 500 MG TAB PO SCH (08:33)
[2022-01-19] MEDS: FUROSEMIDE 10 MG/ML 4 ML VIAL IV SCH ×2 (08:33→20:46)
[2022-01-19] MEDS: 1: MVI, ADULT NO.4 WITH VIT K 10 ML, TRACE (CONC-1ML/DOSE) 1 ML, SODIUM CHLORIDE 4MEQ/ML IV SCH ×12 (10:15→10:16)
[2022-01-19 11:42] LABS: Glucose,Whole Blood 143 mg/dL (70-110)
--- NOTE | 2022-01-19 12:17 | P.PN ---
Subjective Progress Note Date: 01/19/22 Principal diagnosis: Failure to thrive. On 01/16/2022 patient seen in follow-up on a monitored bed on selective care unit. He was transferred out of intensive care unit yesterday, his had no acute events overnight, he is awake and alert, denies any shortness of breath, his pulse ox is 96-98%, breathing comfortably. Seems to be comfortable. Patient is generally quite weak, he had not been out of bed, physical therapy has been consulted. He has a large sacral decubitus ulcer with a wound VAC in place. However patient is awake and alert, he is oriented 3, he follows command, and responds appropriately. His vital signs have been stable, his had no fever or chills. Patient remains on Zosyn for antibiotic coverage. ID service is following, blood cultures have shown no growth. Today's labs have been reviewed showing sodium of 134, potassium 3.6, BUN of 18 creatinine is 1.14. Procalcitonin level slightly improved and is down to 0.28. Progress note dated 01/17/2022. The patient is seen again today in room 380. He is now been in the hospital for 17 days. The patient was recently in the intensive care unit. Currently, the patient is on room air, with a saturation of 97%. The patient is receiving TPN. The patient also has a large sacral decubitus ulcer, with a wound VAC in place. No new labs today. Progress note dated 01/18/2022. The patient is again seen today in room 380. Patient is now been in the hospital for 15 days. The patient is apparently scheduled for a PEG tube placement today by one of the surgeons. He is currently on room air. He is getting saline at 10 mL an hour. He is getting TPN at 60 mL an hour. White count 4.6, hemoglobin 8.6, hematocrit 25.2, platelet count 248,000. Sodium 134, potassium 4.2, chlorides 103, CO2 29, with a BUN of 22, and creatinine 1.01. The patient's pro-calcitonin level is low at 0.23. Blood cultures are negative. Progress note dated 01/19/2022. 61-year-old male, again seen in room 380. The patient is now been in the hospital for 19 days. The patient underwent PEG tube placement yesterday by one of the surgeons. Is currently on room air. He still is getting TPN at 60 mL an hour. Not receiving any IV fluids. The patient will start tube feedings later today. No new labs today, other than a sugar of 143. Objective - Vital Signs Vital signs: Vital Signs Temp 97.7 F 01/19/22 11:33 Pulse 87 01/19/22 11:33 Resp 16 01/19/22 11:33 BP 92/64 01/19/22 11:33 Pulse Ox 97 01/19/22 11:33 FiO2 21 01/18/22 07:29 Intake & Output 01/18/22 01/19/22 01/19/22 18:59 06:59 18:59 Intake Total 100 976 Output Total 475 1850 Balance -375 -1850 976 Weight 71 kg 82.5 kg Intake: IV 100 Intake, IV Titration 976 Amount Mvi, Adult No.4 with Vit 976 K 10 ml Trace (Conc-1Ml/ Dose) 1 ml Sodium Chloride 4Meq/ml Vial 16 meq Potassium Chloride 40 meq Magnesium Sulfate gm 0.5 gm In Amino Acid 5%- D15w+Lytes*E* 1,000 ml @ 60 mls/hr IV .BY [facility]ATION [facility] Rx#:[id number] Output: Drainage 200 Left Buttock 200 Urine 475 1650 Other: Voiding Method Indwelling Catheter Indwelling Catheter Indwelling Catheter # Bowel Movements 1 ABP, PAP, CO, CI - Last Documented Arterial Blood Pressure 130/71 - Exam No acute distress, oriented 3. Flat affect. Room air saturation 97 %. HEENT examination is grossly unremarkable. Neck supple. Full range of motion. No adenopathy thyromegaly or neck vein distention. Cardiovascular examination reveals regular rhythm rate. S1-S2 normal. No S3 or S4. No discernible murmur noted. Heart rate 84 bpm. Lungs reveal clear breath sounds. Breath sounds are equal bilaterally. No adventitious lung sounds including wheezes rhonchi or crackles. Abdomen soft bowel sounds are heard. No masses or tenderness. PEG tube noted. Extremities are intact. No cyanosis clubbing or edema. Skin is without rash or lesion. Neurologic examination is brief but nonfocal. - Labs CBC & Chem 7: 01/18/22 07:55 01/18/22 07:55 Labs: Abnormal Lab Results - Last 24 Hours (Table) 01/18/22 01/19/22 01/19/22 Range/Units 16:38 05:55 11:40 POC Glucose (mg/dL) 167 H 135 H 143 H (70-110) mg/dL Assessment and Plan Assessment: Septic shock, possibly secondary to sacral decubitus ulcer. Blood cultures negative. Status post PEG tube placement, 01/18/2022. Metabolic encephalopathy secondary to sepsis. History of gangrenous cholecystitis, status post open cholecystectomy. History of DVT. Stage IV decubitus ulcer, with wound VAC in place. Hypoalbuminemia. Non-anion gap metabolic acidosis. Type 2 diabetes mellitus. Chronic bronchial asthma, stable. Obstructive sleep apnea syndrome. Essential hypertension. Hyperlipidemia. General medical debility. Chronic anemia. Plan: Plan dated 01/17/2022. The patient remains on TPN, and Zosyn. The wound VAC remains in place. Labs, x-rays, and medications are reviewed. The patient's overall prognosis remains very poor. The patient will likely need placement after discharge to an extended care facility. The patient is a DO NOT RESUSCITATE patient. We will continue to follow and make recommendations where appropriate. Plan dated 01/18/2022. The plan today is to place a feeding tube. The patient currently remains on TPN. The antibiotics have been discontinued. Cultures are negative. Pro- calcitonin level is only 0.23. No additional recommendations are made. We will continue to follow the patient. The patient is a DO NOT RESUSCITATE patient. He likely is to be discharged to a nursing facility after the feeding tube is placed. Plan dated 01/19/2022. The patient did have a PEG tube placed yesterday by one of the surgeons. 2 feedings will start later today. The patient's currently on room air. The patient still is getting TPN at 60 mL an hour. He appears stable otherwise. No new labs today or chest x-ray today. Microbiologic studies have been negative. We will continue to follow make recommendations where appropriate. The patient is a DO NOT RESUSCITATE patient. Time with Patient: Less than 30
--- NOTE | 2022-01-19 13:52 | P.PN ---
Subjective Progress Note Date: 01/19/22 CHIEF COMPLAINT: Dehydration and failure to thrive HISTORY OF PRESENT ILLNESS: Patient is status post PEG tube placement. He denies any abdominal pain. Denies any nausea or vomiting. Afebrile. Patient seen and examined with Dr. whitaker PHYSICAL EXAM: VITAL SIGNS: Reviewed. GENERAL: Well-developed in no acute distress. HEENT: No sclera icterus. Extraocular movements grossly intact. Moist buccal mucosa. Head is atraumatic, normocephalic. ABDOMEN: Soft. Nondistended. Nontender. PEG tube site clean dry and intact NEUROLOGIC: Alert and oriented. Cranial nerves II through XII grossly intact. ASSESSMENT: 1. Severe protein calorie malnutrition status post PEG tube placement 2. Abdominal ileus resolved PLAN: -Consult dietitian and start PEG tube feedings today -Continue supportive care Physician Process Line Operator note has been reviewed by physician. Signing provider agrees with the documented findings, assessment, and plan of care. Objective - Vital Signs Vital signs: Vital Signs Temp 97.7 F 01/19/22 11:33 Pulse 87 01/19/22 11:33 Resp 16 01/19/22 11:33 BP 92/64 01/19/22 11:33 Pulse Ox 97 01/19/22 11:33 FiO2 21 01/18/22 07:29 Intake & Output 01/18/22 01/19/22 01/19/22 18:59 06:59 18:59 Intake Total 100 976 Output Total 475 1850 800 Balance -375 -1850 176 Weight 71 kg 82.5 kg 90.5 kg Intake: IV 100 Intake, IV Titration 976 Amount Mvi, Adult No.4 with Vit 976 K 10 ml Trace (Conc-1Ml/ Dose) 1 ml Sodium Chloride 4Meq/ml Vial 16 meq Potassium Chloride 40 meq Magnesium Sulfate gm 0.5 gm In Amino Acid 5%- D15w+Lytes*E* 1,000 ml @ 60 mls/hr IV .BY DURATION [facility] Rx#:[id number] Output: Drainage 200 Left Buttock 200 Urine 475 1650 800 Other: Voiding Method Indwelling Catheter Indwelling Catheter Indwelling Catheter # Bowel Movements 1 ABP, PAP, CO, CI - Last Documented Arterial Blood Pressure 130/71 - Labs CBC & Chem 7: 01/18/22 07:55 01/18/22 07:55 Labs: Abnormal Lab Results - Last 24 Hours (Table) 01/18/22 01/19/22 01/19/22 Range/Units 16:38 05:55 11:40 POC Glucose (mg/dL) 167 H 135 H 143 H (70-110) mg/dL
--- NOTE | 2022-01-19 14:42 | P.PN ---
Subjective Patient is seen for follow-up for hyponatremia and acute kidney injury. Renal function has stabilized and improved. Patient remains with poor oral intake. He is status post PEG tube placement. Maintained on IV Lasix. Receiving TPN Objective - Vital Signs Vital signs: Vital Signs Temp 97.7 F 01/19/22 11:33 Pulse 87 01/19/22 11:33 Resp 16 01/19/22 11:33 BP 92/64 01/19/22 11:33 Pulse Ox 97 01/19/22 11:33 FiO2 21 01/18/22 07:29 Intake & Output 01/18/22 01/19/22 01/19/22 18:59 06:59 18:59 Intake Total 100 976 Output Total 475 1850 800 Balance -375 -1850 176 Weight 71 kg 82.5 kg 90.5 kg Intake: IV 100 Intake, IV Titration 976 Amount Mvi, Adult No.4 with Vit 976 K 10 ml Trace (Conc-1Ml/ Dose) 1 ml Sodium Chloride 4Meq/ml Vial 16 meq Potassium Chloride 40 meq Magnesium Sulfate gm 0.5 gm In Amino Acid 5%- D15w+Lytes*E* 1,000 ml @ 60 mls/hr IV .[facility] Rx#:[id number] Output: Drainage 200 Left Buttock 200 Urine 475 1650 800 Other: Voiding Method Indwelling Catheter Indwelling Catheter Indwelling Catheter # Bowel Movements 1 ABP, PAP, CO, CI - Last Documented Arterial Blood Pressure 130/71 - Exam Patient is comfortable he is awake Alert oriented 3 today. Following commands. Examination of the heart S1 and S2 Examination lungs bilateral breath sounds are heard Abdomen is soft obese nontender Examination of the lower extremity shows edema 1+ bilaterally. Patient is not able to move his legs much. - Labs CBC & Chem 7: 01/18/22 07:55 01/18/22 07:55 Labs: Abnormal Lab Results - Last 24 Hours (Table) 01/18/22 01/19/22 01/19/22 Range/Units 16:38 05:55 11:40 POC Glucose (mg/dL) 167 H 135 H 143 H (70-110) mg/dL Assessment and Plan Assessment: 1. Acute kidney injury secondary to ATN from hypotension and shock. Currently improved 2. Hyponatremia hypervolemic. Maintained on IV Lasix currently stable 3. Shock mostly septic shock from decubitus ulcer versus abdominal source in bed and decrease his gallbladder. Maintained on antibiotics 4. Chronic lower extremity edema currently being diuresed and improved 5. Metabolic acidosis associated with acute kidney injury status post bicarb drip 6. Decreased oral intake status post EGD and PEG tube placement. Plan: Continue with IV Lasix. Decrease/discontinue TPN once tube feeds at goal Continue to monitor electrolytes periodically
[2022-01-19] MEDS: SODIUM CHLORIDE 0.9% 1,000 ML IV SCH (14:58)
[2022-01-19 16:22] LABS: Glucose,Whole Blood 142 mg/dL (70-110)
--- NOTE | 2022-01-19 17:15 | P.PN ---
Progress Note - Text Progress Note Date: 01/19/22 Hospital course: this is a pleasant 61 yo M with past medical history of COPD, Diabetes Mellitus, Deep Vein Thrombosis, Hyperlipidemia, Hypertension, Sleep Apnea/CPAP/BIPAP He was in the hospital on 09/2021 for severe hypertension from decreased oral intake, acute metabolic encephalopathy, chronic congestive heart failure, diastolic with ejection fraction 55-60%, acute kidney injury, sinus tachycardia, status post cholecystectomy for his gangrenous cholecystitis, restless leg syndrome, BPH, chronic medical debility i talkled to the pt and at bed side , [facility] , [facility] June [facility]. At that time she was in the hospital for acute hypoxic respiratory failure of unknown causes. He needed intubation at that time. He had complete opacification in the left hemithorax he had 2 bronchoscopy done which was negative for microbial growth. He has another admission on 09/2021. Patient and states that he came here because he wanted to get the PEG tube because he was not eating anything since June and he lost a lot of weight he used to weigh 333 pounds and now 193. He states that his main issue is no appetite, he denies choking but he has sometimes nausea that prevent him from eating. Is also short of breath with cough and clear yellow phlegm but no chest pain, no abdominal pain. He has loose bowel movement once or twice a week. Also he has unstageable pressure decubitus ulcer status post debridement, he has wound VAC in place. Patient also complaining of from chronic left leg pain and tenderness, he would not allow someone to drop his leg because it hurts a lot. Inspection looks normal, no trauma. Also was complaining from weakness in both lower extremities since June Patient is tachycardic around 110, on admission heart rate was 125 afebrile. His lab reviewed including CBC showed mild anemia of 11.9, rest of CBC is un remarkable. INR is unremarkable at 1.1. Sodium was low at 123. Creatinine normal 0.8. Glucose was low at 66. Chest x-ray: No acute process. 01/02/2022 Last night patient was started on therapeutic dose Lovenox for acute right leg DVT, CT angiography chest and echo could not be done because have no IV access, patient was transferred to a small IV access was obtained in the right upper arm, not good enough for CT of the chest test or aggressive treatment. However IV fluids could be provided. Blood pressure is improved up to 110/68, however patient still tachycardic. Patient could not eat because of severe nausea and vomiting, H time he put something in his monthly follow-up as per bedside nurse, KUB showing some evidence of ileus, surgical team consult obtained. Social evaluation under direct consults are pending. 01/03/2022 Patient awake alert, looks more comfortable than the first taken to the hospital, less tachypneic, he denies any chest pain or abdominal pain. He tried to take small bites of mashed potato yesterday and he could not consume it and he immediately felt to throw up. CT of the chest is negative for PE, he remains on Lovenox for acute right DVT. CT of the abdomen is suspicious for a complex collection possible abscess although it's the size 5 cm diameter 2.7 cm, recommended ultrasound versus MRI, were going to order a liver ultrasound although it is of less sensitivity especially with this patient large body habitus however it is less invasive than MRI. Also flowcalcitonin is the slightly elevated. He is slightly tachycardic although is better than before. Blood pressure 93/63. Today sodium dropped 127 down to 122 because of this we held his IV fluids and reordered anemia workup in the urine and the serum, we will monitor his sodium level tomorrow if no improvement and may consider further workup. Surgical team consult is called, the plan for PEG tube placement on . Patient originally came to the hospital the PEG tube placement. Patient is not consuming his oral medication but we stopped his gabapentin and ropinirole. 01/04/2022 Kirsten Bach feels better today, he does not feel dizziness while he is lying in bed all the time. He still have low appetite but no chest pain or dyspnea, no abdominal pain. He still complaining from pain in his legs and he has right leg DVT been on Lovenox with plan to switch him to heparin drip on today as he got midline Blood pressure is 87/56, heart rate 120, sodium is 121 On admission his sodium was still low and was started on D5 normal saline at 100 mL/h however after initial improvement sodium dropped to 121 yesterday so we held his IV fluid and the evening sodium improved 124 (no iv lasix given), however this morning is 121 again. We send urine studies and I'll consult medicine teacher. Also patient has negative CTPA for pulmonary embolism but CT of the abdomen and pelvis showing possible gallbladder fossa abscess or complex fluid collection although it is improved from previous 5 cm down to 2.7 centimeters. The recommended liver ultrasound versus MRI, ultrasound shows the same findings. Also surgery due on the case 01/05/2022 Last night his blood pressure dropped with systolic and 50s, there was a rapid response a team response and he was as stated with IV fluids aggressively, his blood pressure improved in 90s this morning and during the round he was awake and alert looks tired but is appropriate. Sodium was 121 and then 119. He denied any chest pain or abdominal pain, no other complaints clinically. His losing from his puncture wound in the right lower abdomen was a stopped, he was started on heparin drip per recommendation of radio personality. After once by the evening time his blood pressure dropped again was 53/32 with altered mental status, there was another rapid response where patient was transferred to the ICU and levophed was started and his mentation started to improve again. Patient was started also on antibiotic empirically with Zosyn and IV vancomycin total infection ruled out completely as there is still high suspicion, with possible sources including the pressure wound sacral ulcer in the lower back, and less likely the gallbladder bed and fossa with 2.7 cm fluid collection (felt less likely because actually it decreased in size from 5.0 cm previously) After transfer patient and at bedside opted for the DO NOT RESUSCITATE order as per bedside nurse. 01/06/2022 Yesterday patient was still deteriorating, however today patient turned around and start improving patient remains in the ICU he needs to pressors we will fit and vasopressin, lactic acid trending up 6.4. Patient mentation is also deteriorated and become more confused and less responsive. His creatinine remains around 1 although he has low urine output. Patient is resuscitated with many fluids and also his broad-spectrum antibiotics with IV vancomycin and Zosyn, as septic shock is highly suspected is the cause of the patient profound hypotension and shock state. Although other factors might be contributing to it. Because of this we started the patient on hydrocortisone to increase the sensitivity of the adrenergic receptors to the catecholamine. Also replacing electrolytes including calcium and magnesium. Sodium slightly trending up. Patient remains in critical condition. Family at bedside 01/07/2022 Patient today workup and he was awake alert and oriented 3, he follows commands, he feels hungry and actually he started tolerating diet for the first time after several months. He denies any respiratory symptoms, his abdomen looks benign, no other new complaints. Blood pressure is improving and he required less pressors, currently blood pressure is 87/61, is less tachycardic around 110. He is currently on levophed 0.03 which is decreased from yesterday. Last night we added hydrocortisone 100 mg 3 times a day as a replacement therapy but to support blood pressure and increased sensitivity of levophed to its adrenergic receptors. Since blood pressure improvement with lower dose to 50 mg today, possibly we will discontinue it in one or 2 days once blood pressure keep improvement. Also patient receiving fluids. Labs looks stable, hemoglobin 9.8, sodium 126 he remains on Zosyn, vancomycin was discontinued. He remains on Zosyn. Anticoagulation is switched to Eliquis therapeutic dose at 10 mg which could be switched to 5 mg on 01/17. Prognosis remains guarded 01/08/2022 Patient is awake but drowsy, His blood pressure is improving but he still on pressors although is requiring less amount He has poor urine output but creatinine is around 1.1. His GFR is 66. He is going to receive 1 dose of Lasix 80 mg today. Also significant sodium bicarb and albumin infusion. He remains on Zosyn Anticoagulation with Eliquis January 09 2022: I assumed care of patient today. ICU: Tired. Lethargic. Patient drips include vasopressin and norepinephrine. the bedside. Getting 2 units of PRBC. Received IV albumin yesterday. Also received some IV diuretics. 2 L nasal cannula. Hemoglobin 5.5 today. On IV Zosyn. Wound VAC. On clear liquids. 01/10/2022: ICU: Remains in bed. Tired. Lethargic. Following simple commands. On IV levo fed. IV Zosyn. Discussed with at the bedside. Eating small amounts. Receive 2 units of blood yesterday. 01/11/2022: ICU: Tired lethargic. at the bedside. IV levo fed. Poor oral intake. Discussed with Dr. Dong from ID. Rule out right upper quadrant abscess versus infected hematoma. Computed tomography scan with contrast ordered. 01/12/2022: ICU: Drip planning a bit. But more awake. Answers simple questions. Poor oral intake. Discussed with the patient. Refuses PEG tube. present. Computed tomography scan abdomen canceled by Dr. Chow. BP is running on the lower side. Decrease Lopressor to 25 mg twice a day. 01/13/2022: ICU: Remains tired lethargic. TPN lipids ordered by pulmonary. Spoke to the patient and at the bedside. Patient refuses NG tube feeding. Did also inform them that sleep 2 first consequences including . No changing his mind. Spoke to the at the bedside. She'll have a brother come in and talked with the patient again. Computed tomography scan abdomen results discussed with the radiologist. Right upper quadrant no obvious abscess or hematoma. A lot of fluids/third spacing. 01/14/2022: ICU: Tired. I again spoke to the and the patient. Does not want to feeding of any sorts. Has TPN lipids running. Also discussed that this is very temporary. Blood pressure running low. Jeremiah wrap ordered with Denise. Prognosis poor. Also discussed with Dr. Hawk from pulmonary. Patient was placed on levo fed last night. 01/15/2022: ICU: Remains diet. A bit more awake. present. Again spoke to patient and the at the bedside. He does not want any PEG tube or NG tube feeding. Getting TPN lipids. I again explained poor prognosis. Including . 01/16/2022: Patient medical floor. Getting TPN lipids. Present this patient's , daughter, [id number]. Patient is to feeding including NG tube was again discussed. Patient does not want the same. Hospice was discussed. They do not want the same. Plan is for patient to go back to inpatient rehab understanding the prognosis which is poor which is again discussed. Patient eating minimal. 01/17/2022: Getting TPN lipids. Oral intake poor. Had a very lengthy discussion at the bedside. The patient, his and nurse Vandana present. After load obesity with the patient he is agreed to proceed with a PEG tube. Dr. Renetta kaye is being informed. 01/18/2022: Patient received a PEG tube today by Dr. Jackson. Postprocedure comfortable. More talkative a bit more cheerful today. On TPN lipids. January 19: Dietitian to start PEG tube feeding today. We will taper off TPN lipids. Discussed with the patient. Marinol has not been much of health with appetite has will DC the same. Active Medications Albuterol Sulfate (Albuterol Nebulized 2.5 Mg/3 Ml) 2.5 mg INHALATION Q2H PRN PRN Reason: AIRWAY PATENCY Last Admin: 01/17/22 03:12 Dose: 2.5 mg Albuterol/Ipratropium (Ipratropium-Albuterol 3 Ml Neb) 3 ml INHALATION RT-QID [facility] Last Admin: 01/19/22 15:41 Dose: 3 ml Ascorbic Acid (Ascorbic Acid 500 Mg Tab) 1,000 mg PO DAILY@0800 [facility] Last Admin: 01/19/22 08:33 Dose: 1,000 mg Cholecalciferol (Cholecalciferol 25 Mcg (1000 Iu) Tablet) 25 mcg PO DAILY [facility] Last Admin: 01/19/22 08:33 Dose: 25 mcg Famotidine (Famotidine 20 Mg Tab) 20 mg PO BID [facility] Fludrocortisone Acetate (Fludrocortisone 0.1 Mg Tab) 0.05 mg PO BID [facility] Last Admin: 01/19/22 08:33 Dose: 0.05 mg Folic Acid (Folic Acid 1 Mg Tab) 1 mg PO DAILY [facility] Last Admin: 01/19/22 08:33 Dose: 1 mg Furosemide (Furosemide 10 Mg/Ml 4 Ml Vial) 40 mg IV BID [facility] Last Admin: 01/19/22 08:33 Dose: 40 mg Sodium Chloride (Saline 0.9%) 1,000 mls @ 10 mls/hr IV .Q24H [facility] Last Admin: 01/19/22 14:58 Dose: Not Given Parenteral Vitamin Supplement 10 ml/ Zinc/Copper/Manganese/Selenium 1 ml/ Sodium Chloride 16 meq/ Potassium Chloride 40 meq/ Magnesium Sulfate 0.5 gm / Amino Ac/Electrol/Dextrose/Calcium 1,036 mls @ 60 mls/hr IV .BY DURATION [facility] Last Admin: 01/19/22 10:16 Dose: 60 mls/hr Sodium Chloride 16 meq/Potassium Chloride 40 meq/Magnesium Sulfate 0.5 gm/Amino Ac/Electrol/Dextrose/Calcium 1,025 mls @ 60 mls/hr IV .BY DURATION [facility] Last Admin: 01/18/22 00:11 Dose: 60 mls/hr Fat Emulsion Intravenous 500 (ml/ IV Solution) 500 mls @ 42 mls/hr IV We@1800 [facility] Insulin Aspart (Insulin Aspart (Novolog) 100 Unit/Ml Vial) 0 unit SQ ACHS [facility]; Protocol Last Admin: 01/19/22 14:46 Dose: Not Given Lidocaine HCl (Lidocaine 1% (10mg/Ml) For Iv Start) 0.1 ml INTRADERMA PER PROTOCOL PRN PRN Reason: IV Start Metoprolol Tartrate (Metoprolol Tartrate 25 Mg Tab) 25 mg PO BID@0800,1600 [facility] Last Admin: 01/19/22 16:16 Dose: 25 mg Midodrine (Midodrine 5 Mg Tab) 10 mg PO AC-TID [facility] Last Admin: 01/19/22 16:16 Dose: 10 mg Miscellaneous Information (Phosphorus Replacement Protoco 1 Each Misc) 1 each MISCELLANE DAILY PRN; Protocol PRN Reason: Per Protocol Miscellaneous Information (Magnesium Replacement Protocol 1 Each Misc) 1 each MISCELLANE DAILY PRN; Protocol PRN Reason: Per Protocol Miscellaneous Information (Potassium Replacement Protocol 1 Each Misc) 1 each MISCELLANE DAILY PRN; Protocol PRN Reason: Per Protocol Multivitamins (Multivitamins, Thera 1 Each Tab) 1 each PO DAILY [facility] Last Admin: 01/19/22 08:33 Dose: 1 each Ondansetron HCl (Ondansetron 4 Mg/2 Ml Vial) 4 mg IVP Q6HR PRN PRN Reason: Nausea And Vomiting Last Admin: 01/02/22 18:15 Dose: 4 mg Sodium Chloride (Sodium Chloride 0.9% Flush 10 Ml Syringe) 10 ml IV Q4HR PRN PRN Reason: PICC Line Sodium Chloride (Sodium Chloride 0.9% Flush 10 Ml Syringe) 10 ml IV WEEKLY [facility] Last Admin: 01/19/22 08:35 Dose: 10 ml Sodium Chloride (Sodium Chloride 0.9% Flush 10 Ml Syringe) 20 ml IV Q4HR PRN PRN Reason: PICC Line Tamsulosin HCl (Tamsulosin 0.4 Mg Cap.Er.24h) 0.4 mg PO DAILY [facility] Last Admin: 01/19/22 08:33 Dose: 0.4 mg On examination: VITAL SIGNS: 97.7, 87, 16, 92 x 64, 97% room air GENERAL APPEARANCE: More awake and talkative today. HEENT: Normal external appearance of nose and ear. Oral cavity normal EYES: Pupils equal. Conjunctiva normal. NECK: JVD unable to assess. Mass not palpable. RESPIRATORY: Respiratory effort increased. Decreased breath sounds to auscultation. CARDIOVASCULAR: First and second sounds normal. Some edema. ABDOMEN: Soft. Liver and spleen not palpable. No tenderness. No mass palpable. PSYCHIATRY: AO 3. Muscular skeletal: Stage IV pressure ulcer left buttock. With wound VAC INVESTIGATIONS, reviewed in the clinical context: January 18: WBC 4.6 hemoglobin 8.6 potassium 4.2 creatinine 1.01 January 17: White count 3.3 hemoglobin 7.7 platelets 129 potassium 3.2 creatinine 1.04 January 16: Potassium 3.6 creatinine 1.14 January 15: Potassium 2.6 creatinine 1.19 January 14: WBC 3.2 hemoglobin 9 at bedtime 114 potassium 3.9 creatinine 1.19 pro- calcitonin 0.28 albumin 1.6 CRP 5.5 January 13: White count 3.5 hemoglobin 10.4 platelets 95 January 6: WBC 4.5 hemoglobin 9.9 potassium 3.6 creatinine 1.2 to albumin 2.0 January 11: White count 5.6 hemoglobin 10.3 sodium 132 potassium 3.5 creatinine 1.24 January 10: Obesity 4.9 hemoglobin 8.4 platelets 137 sodium 137 potassium 3.3 creatinine 1.2 January 09: White count 5.6 hemoglobin 5.5 platelets 179 sodium 128 potassium 3.2 creatinine 1.25 albumin 2.2 LIVER: ULTRASOUND:. PRIOR CHOLECYSTECTOMY. COMPLEX AREA SEEN IN THE GALLBLADDER FOSSA. CONTAINING A FEW BUBBLES. CT abdomen: Persistent heterogenous hyperdense area in the hepatic parenchyma adjacent to the gallbladder fossa. Limited 2-D echocardiogram: Home LV function. Ultrasound venous Doppler: Positive DVT right lower extremity. Assessment and plan: Severe hypotension and shock state requiring pressors, possible septic shock : Some improvement Off levo fed. -Acute metabolic encephalopathy, multifactorial: Improvement -Complex liver collection adjacent to gallbladder fossa 2.7 cm Repeat computed tomography scan not suggestive of abscess/hematoma -Hyponatremia: Better Follow labs -Severe hypokalemia: Better Replacementnone -Persistent nausea and vomiting secondary to ileus,: Better -Acute right leg DVT Eliquis -Severe anorexia: Slow to respond On Marinol. Encourage oral intake -Dehydration and hypovolemia, improving -Unstageable chronic decubitus ulcer - wound VAC placement -Anemia of chronic diseases -Acute drop in hemoglobin from 10-5.5. Patient is on eliquis. -Hyperphosphatemia Supplement phosphorus -Hypotension multifactorial Florinef 0.05 mg by mouth twice a day, midodrine 10 mg 3 times a day Hyperlipidemia -COPD DuoNeb 4 times a day -Chronic congestive heart failure with ejection fraction 55-60% On Lasix. Lopressor -Sinus tachycardia -Restless leg syndrome -BPH Flomax -Anorexia Marinol. -Chronic medical debility -Moderate protein calorie malnutrition from poor oral intake peg tube placed January 18. On TPN and lipids. Start PEG tube feeding today. DO NOT RESUSCITATE TPN and lipids. Continue current medication treatment plan. Prognosis guarded. Tapered off TPN and lipids. Has PEG tube is started feeding Discussed with patient. Told him he can still eat if he wants to. Stop Marinol as not much of help. Taper off TPN and lipids.. Hopefully DC to ECF Couple of days.
[2022-01-19] MEDS ORDERED: FAT EMULSION 20% 500 ML in EMPTY BAG 1 BAG IV SCH (18:00)
[2022-01-19 20:28] LABS: Glucose,Whole Blood 139 mg/dL (70-110)
[2022-01-19] MEDS: FAMOTIDINE 20 MG TAB PO SCH (20:47)
[2022-01-20 05:58] LABS: Glucose,Whole Blood 115 mg/dL (70-110)
[2022-01-20] MEDS: INSULIN ASPART (NovoLOG) 100 UNIT/ML VIAL SQ SCH ×4 (06:19→21:40)
[2022-01-20] MEDS: MIDODRINE 5 MG TAB PO SCH ×3 (06:20→17:30)
[2022-01-20] MEDS: IPRATROPIUM-ALBUTEROL 3 ML NEB INHALATION SCH ×4 (08:13→18:56)
[2022-01-20] MEDS: FUROSEMIDE 10 MG/ML 4 ML VIAL IV SCH ×2 (09:31→23:20)
[2022-01-20] MEDS: FAMOTIDINE 20 MG TAB PO SCH ×2 (09:32→22:28)
[2022-01-20] MEDS: FOLIC ACID 1 MG TAB PO SCH (09:32)
[2022-01-20] MEDS: CHOLECALCIFEROL 25 MCG (1000 IU) TABLET PO SCH (09:32)
[2022-01-20] MEDS: TAMSULOSIN 0.4 MG CAP.ER.24H PO SCH (09:32)
[2022-01-20] MEDS: FLUDROCORTISONE 0.1 MG TAB PO SCH ×2 (09:32→22:28)
[2022-01-20] MEDS: ASCORBIC ACID 500 MG TAB PO SCH (09:32)
[2022-01-20] MEDS: MULTIVITAMINS, THERA 1 EACH TAB PO SCH (09:33)
[2022-01-20] MEDS: METOPROLOL TARTRATE 25 MG TAB PO SCH ×2 (09:38→17:30)
[2022-01-20] MEDS: SODIUM CHLORIDE 0.9% 1,000 ML IV SCH (09:39)
--- NOTE | 2022-01-20 10:13 | P.PN ---
Subjective Progress Note Date: 01/18/22 Principal diagnosis: Possible abscess Patient is a 61-year-old male with multiple comorbidities including COPD diabetes hypertension in this patient who did have open cholecystectomy for gangrenous cholecystitis on 09/17/2021, subsequently admitted to the hospital for not eating and drinking and placement of a PEG tube patient also have a CT abdominal pelvis as well as ultrasound suspicious for fluid collection in the gallbladder fossa concerning for seroma versus abscess. Patient is status post PEG tube placement on 01/18/2022 On today's evaluation that is 01/18/2022, The patient remains to be afebrile, patient is breathing comfortably on nasal cannula oxygen, the patient denies any chest pain shortness of breath or cough no abdominal pain or diarrhea, Objective - Vital Signs Vital signs: Vital Signs Temp 97.8 F 01/18/22 08:40 Pulse 88 01/18/22 11:40 Resp 16 01/18/22 08:40 BP 104/70 01/18/22 08:40 Pulse Ox 99 01/18/22 08:40 FiO2 21 01/18/22 07:29 Intake & Output 01/17/22 01/18/22 01/18/22 18:59 06:59 18:59 Intake Total 1040 200 100 Output Total 1720 1925 475 Balance -680 1726 -459 Weight 79.5 kg 71 kg 71 kg Intake: IV 200 100 0.9 NACL 100 zosyn 100 Intake, IV Titration 1040 Amount Piperacillin-Tazobactam 3 100 .375 gm In Sodium Chloride 0.9% 100 ml @ 25 mls/hr IVPB Q8HR [facility] Rx# :[id number] Potassium Chloride 20 meq 100 In Water For Injection 1 100ml.bag @ 50 mls/hr IVPB Q2H [facility] Rx#: [id number] Sodium Chloride 0.9% 1, 120 000 ml @ 10 mls/hr IV . Q24H [facility] Rx#:[id number] Sodium Chloride 4Meq/ml 720 Vial 16 meq Potassium Chloride 40 meq Magnesium Sulfate gm 0.5 gm In Amino Acid 5%-D15w+Lytes* E* 1,000 ml @ 60 mls/hr IV .BY DURATION [facility] Rx#: [id number] Oral 0 Output: Drainage 400 Left Buttock 400 Urine 1320 1925 475 Other: Voiding Method Indwelling Catheter Indwelling Catheter Indwelling Catheter # Bowel Movements 1 ABP, PAP, CO, CI - Last Documented Arterial Blood Pressure 130/71 - Exam GENERAL DESCRIPTION: Middle-aged male lying in bed in no distress RESPIRATORY SYSTEM: Unlabored breathing , decreased breath sounds at bases HEART: S1 S2 regular rate and rhythm , ABDOMEN: Soft , no tenderness EXTREMITIES: One plus edema feet Sacral wound is covered with a wound VAC, patient did have evidence of more necrotic area and maceration to the sacral area - Labs CBC & Chem 7: 01/18/22 07:55 01/18/22 07:55 Labs: Abnormal Lab Results - Last 24 Hours (Table) 01/17/22 01/17/22 01/17/22 Range/Units 14:58 14:58 16:41 WBC 3.3 L (3.8-10.6) k/uL RBC 2.65 L (4.30-5.90) m/uL Hgb 7.7 L (13.0-17.5) gm/dL Hct 23.8 L (39.0-53.0) % RDW 18.8 H (11.5-15.5) % Plt Count 129 L (150-450) k/uL Lymphocytes # 0.7 L (1.0-4.8) k/uL ESR (0-15) mm/hr Sodium 132 L (137-145) mmol/L Potassium 3.2 L (3.5-5.1) mmol/L Carbon Dioxide 32 H (22-30) mmol/L BUN 21 H (9-20) mg/dL Glucose 143 H (74-99) mg/dL POC Glucose (mg/dL) 135 H (70-110) mg/dL Calcium 7.5 L (8.4-10.2) mg/dL Alkaline Phosphatase (38-126) U/L C-Reactive Protein (<1.0) mg/dL Total Protein (6.3-8.2) g/dL Albumin (3.5-5.0) g/dL Procalcitonin (0.02-0.09) ng/mL 01/18/22 01/18/22 01/18/22 Range/Units 06:11 07:55 07:55 WBC (3.8-10.6) k/uL RBC 2.92 L (4.30-5.90) m/uL Hgb 8.6 L (13.0-17.5) gm/dL Hct 25.2 L (39.0-53.0) % RDW 18.7 H (11.5-15.5) % Plt Count 148 L (150-450) k/uL Lymphocytes # (1.0-4.8) k/uL ESR 28 H (0-15) mm/hr Sodium 134 L (137-145) mmol/L Potassium (3.5-5.1) mmol/L Carbon Dioxide (22-30) mmol/L BUN 22 H (9-20) mg/dL Glucose 105 H (74-99) mg/dL POC Glucose (mg/dL) 146 H (70-110) mg/dL Calcium 8.0 L (8.4-10.2) mg/dL Alkaline Phosphatase 215 H (38-126) U/L C-Reactive Protein 5.0 H (<1.0) mg/dL Total Protein 4.0 L (6.3-8.2) g/dL Albumin 1.9 L (3.5-5.0) g/dL Procalcitonin (0.02-0.09) ng/mL 01/18/22 01/18/22 Range/Units 07:55 11:39 WBC (3.8-10.6) k/uL RBC (4.30-5.90) m/uL Hgb (13.0-17.5) gm/dL Hct (39.0-53.0) % RDW (11.5-15.5) % Plt Count (150-450) k/uL Lymphocytes # (1.0-4.8) k/uL ESR (0-15) mm/hr Sodium (137-145) mmol/L Potassium (3.5-5.1) mmol/L Carbon Dioxide (22-30) mmol/L BUN (9-20) mg/dL Glucose (74-99) mg/dL POC Glucose (mg/dL) 127 H (70-110) mg/dL Calcium (8.4-10.2) mg/dL Alkaline Phosphatase (38-126) U/L C-Reactive Protein (<1.0) mg/dL Total Protein (6.3-8.2) g/dL Albumin (3.5-5.0) g/dL Procalcitonin 0.23 H (0.02-0.09) ng/mL Assessment and Plan (1) Abnormal abdominal CT scan Current Visit: Yes Status: Acute Code(s): R93.5 - ABN FINDINGS ON DX IMAGING OF ABD REGIONS, INC RETROPERITON SNOMED Code(s): 99659545845268963 Plan: 1patient with abnormal CT as well as ultrasound of the liver gallbladder area concerning for possible fluid collection in the gallbladder. In this patient who did have a history of gangrenous cholecystitis s/p cholecystectomy on 09/17/2021 with concern for possible postop seroma versus abscess, patient was clinically not behaving as an abscess with no fever or elevated white count. 2detailed discussion with IR on 01/04/2022 and with high risk for any percutaneous intervention hence the right upper quadrant fluid was not drained 3 patient subsequently did have significant hypotension and has been transferred to ICU , blood culture has been obtained which are negative so for 4-patient subsequent abdominal pelvis CT was reviewed with radiologist collection in the gallbladder fossa seems like a hematoma and no significant increase in size the patient did have significant anasarca and did not mention any sacral destruction or erosion in this patient who did have a stage IV sacral pressure ulcer 5- patient noticed to have multiple areas of deep tissue injury to the sacral area which should be treated with a skin barrier cream keep the area off the pressure with frequent changing the position discussed with the nursing staff 6-patient hypotension more likely related to non-infectious etiology as the patient do not have any obvious focus of infection with negative culture , Zosyn was discontinued yesterday and the patient seemed to be doing well so for off antibiotic therapy Time with Patient: Less than 30
--- NOTE | 2022-01-20 10:15 | P.PN ---
Subjective Progress Note Date: 01/19/22 Principal diagnosis: Possible abscess Patient is a 61-year-old male with multiple comorbidities including COPD diabetes hypertension in this patient who did have open cholecystectomy for gangrenous cholecystitis on 09/17/2021, subsequently admitted to the hospital for not eating and drinking and placement of a PEG tube patient also have a CT abdominal pelvis as well as ultrasound suspicious for fluid collection in the gallbladder fossa concerning for seroma versus abscess. Patient is status post PEG tube placement on 01/18/2022 On today's evaluation that is 01/19/2022, The patient continues to be afebrile, patient is breathing comfortably on nasal cannula oxygen, the patient denies any chest pain shortness of breath or cough, the patient denies abdominal pain or diarrhea, Objective - Vital Signs Vital signs: Vital Signs Temp 97.7 F 01/19/22 11:33 Pulse 87 01/19/22 11:33 Resp 16 01/19/22 11:33 BP 92/64 01/19/22 11:33 Pulse Ox 97 01/19/22 11:33 FiO2 21 01/18/22 07:29 Intake & Output 01/18/22 01/19/22 01/19/22 18:59 06:59 18:59 Intake Total 100 976 Output Total 475 1850 Balance -375 -1850 976 Weight 71 kg 82.5 kg 82.5 kg Intake: IV 100 Intake, IV Titration 976 Amount Mvi, Adult No.4 with Vit 976 K 10 ml Trace (Conc-1Ml/ Dose) 1 ml Sodium Chloride 4Meq/ml Vial 16 meq Potassium Chloride 40 meq Magnesium Sulfate gm 0.5 gm In Amino Acid 5%- D15w+Lytes*E* 1,000 ml @ 60 mls/hr IV .BY DURATION [facility] Rx#:[id number] Output: Drainage 200 Left Buttock 200 Urine 475 1650 Other: Voiding Method Indwelling Catheter Indwelling Catheter Indwelling Catheter # Bowel Movements 1 ABP, PAP, CO, CI - Last Documented Arterial Blood Pressure 130/71 - Exam GENERAL DESCRIPTION: Middle-aged male lying in bed in no distress RESPIRATORY SYSTEM: Unlabored breathing , decreased breath sounds at bases HEART: S1 S2 regular rate and rhythm , ABDOMEN: Soft , no tenderness EXTREMITIES: One plus edema feet Sacral wound is covered with a wound VAC, patient did have evidence of more necrotic area and maceration to the sacral area - Labs CBC & Chem 7: 01/18/22 07:55 01/18/22 07:55 Labs: Abnormal Lab Results - Last 24 Hours (Table) 01/18/22 01/19/22 01/19/22 Range/Units 16:38 05:55 11:40 POC Glucose (mg/dL) 167 H 135 H 143 H (70-110) mg/dL Assessment and Plan (1) Abnormal abdominal CT scan Current Visit: Yes Status: Acute Code(s): R93.5 - ABN FINDINGS ON DX IMAGING OF ABD REGIONS, INC RETROPERITON SNOMED Code(s): 10277247489261548 Plan: 1patient with abnormal CT as well as ultrasound of the liver gallbladder area concerning for possible fluid collection in the gallbladder. In this patient who did have a history of gangrenous cholecystitis s/p cholecystectomy on 09/17/2021 with concern for possible postop seroma versus abscess, patient was clinically not behaving as an abscess with no fever or elevated white count. 2detailed discussion with IR on 01/04/2022 and with high risk for any percutaneous intervention hence the right upper quadrant fluid was not drained 3 patient subsequently did have significant hypotension and has been transferred to ICU , blood culture has been obtained which are negative so for 4-patient subsequent abdominal pelvis CT was reviewed with radiologist collection in the gallbladder fossa seems like a hematoma and no significant increase in size the patient did have significant anasarca and did not mention any sacral destruction or erosion in this patient who did have a stage IV sacral pressure ulcer 5- patient did have multiple areas of deep tissue injury to the sacral area which should be treated with a skin barrier cream keep the area off the pressure with frequent changing the position discussed with the nursing staff, further wound care management per wound care team on the case 6-patient hypotension more likely related to non-infectious etiology as the patient do not have any obvious focus of infection with negative culture , Zosyn has been discontinued, no evidence of any worsening hypotension fever or elevated white count, will continue monitor the patient closely off antibiotics Time with Patient: Less than 30
--- NOTE | 2022-01-20 10:59 | P.PN ---
Subjective Progress Note Date: 01/20/22 CHIEF COMPLAINT: Dehydration and failure to thrive HISTORY OF PRESENT ILLNESS: Patient is status post PEG tube placement. He denies any abdominal pain. Denies any nausea or vomiting. He reports having B Ms. He is tolerating tube feeds. No residual reported. Tube feeds are currently at 30 mL per hour. Afebrile. Patient anticipating possible discharge today. PHYSICAL EXAM: VITAL SIGNS: Reviewed. GENERAL: Well-developed in no acute distress. HEENT: No sclera icterus. Extraocular movements grossly intact. Moist buccal mucosa. Head is atraumatic, normocephalic. ABDOMEN: Soft. Nondistended. Nontender. PEG tube site clean dry and intact NEUROLOGIC: Alert and oriented. Cranial nerves II through XII grossly intact. ASSESSMENT: 1. Severe protein calorie malnutrition status post PEG tube placement 2. Abdominal ileus resolved PLAN: -Titrate tube feeds per dietitian -Patient can be discharged from surgical standpoint when medically cleared. Tube feedings can be titrated to goal at [facility]CF. -Continue supportive care Physician Movie Producer note has been reviewed by physician. Signing provider agrees with the documented findings, assessment, and plan of care. I have personally seen and examined the patient, reviewed the BASE DRAW OPERATOR /PAs history, exam and MDM and agree with the assessment and plan as written. Based on total visit time, I have performed more than 50% of the visit. As above: Patient seems to be doing well today. No abdominal pain. Tolerating tube feeds at 30 mL per hour. He has had some bowel movements. Continue advancing tube feeds to goal. Objective - Vital Signs Vital signs: Vital Signs Temp 96.7 F L 01/20/22 09:00 Pulse 102 H 01/20/22 09:00 Resp 15 01/20/22 09:00 BP 106/58 01/20/22 09:00 Pulse Ox 96 01/20/22 03:36 FiO2 21 01/18/22 07:29 Intake & Output 01/19/22 01/20/22 01/20/22 18:59 06:59 18:59 Intake Total 1006 Output Total 1400 1075 Balance -394 -1073 Weight 90.5 kg 90.5 kg Intake: Intake, IV Titration 976 Amount Mvi, Adult No.4 with Vit 976 K 10 ml Trace (Conc-1Ml/ Dose) 1 ml Sodium Chloride 4Meq/ml Vial 16 meq Potassium Chloride 40 meq Magnesium Sulfate gm 0.5 gm In Amino Acid 5%- D15w+Lytes*E* 1,000 ml @ 60 mls/hr IV .BY DURATION [facility] Rx#:[id number] Oral 30 Output: Urine 1400 1075 Other: Voiding Method Indwelling Catheter Indwelling Catheter Indwelling Catheter # Bowel Movements 2 ABP, PAP, CO, CI - Last Documented Arterial Blood Pressure 130/71 - Labs CBC & Chem 7: 01/18/22 07:55 01/18/22 07:55 Labs: Abnormal Lab Results - Last 24 Hours (Table) 01/19/22 01/19/22 01/19/22 Range/Units 11:40 16:20 20:21 POC Glucose (mg/dL) 143 H 142 H 139 H (70-110) mg/dL 01/20/22 Range/Units 05:42 POC Glucose (mg/dL) 115 H (70-110) mg/dL
--- NOTE | 2022-01-20 11:39 | P.PN ---
Subjective Progress Note Date: 01/20/22 Principal diagnosis: Failure to thrive. On 01/16/2022 patient seen in follow-up on a monitored bed on selective care unit. He was transferred out of intensive care unit yesterday, his had no acute events overnight, he is awake and alert, denies any shortness of breath, his pulse ox is 96-98%, breathing comfortably. Seems to be comfortable. Patient is generally quite weak, he had not been out of bed, physical therapy has been consulted. He has a large sacral decubitus ulcer with a wound VAC in place. However patient is awake and alert, he is oriented 3, he follows command, and responds appropriately. His vital signs have been stable, his had no fever or chills. Patient remains on Zosyn for antibiotic coverage. ID service is following, blood cultures have shown no growth. Today's labs have been reviewed showing sodium of 134, potassium 3.6, BUN of 18 creatinine is 1.14. Procalcitonin level slightly improved and is down to 0.28. Progress note dated 01/17/2022. The patient is seen again today in room 380. He is now been in the hospital for 17 days. The patient was recently in the intensive care unit. Currently, the patient is on room air, with a saturation of 97%. The patient is receiving TPN. The patient also has a large sacral decubitus ulcer, with a wound VAC in place. No new labs today. Progress note dated 01/18/2022. The patient is again seen today in room 380. Patient is now been in the hospital for 15 days. The patient is apparently scheduled for a PEG tube placement today by one of the surgeons. He is currently on room air. He is getting saline at 10 mL an hour. He is getting TPN at 60 mL an hour. White count 4.6, hemoglobin 8.6, hematocrit 25.2, platelet count 248,000. Sodium 134, potassium 4.2, chlorides 103, CO2 29, with a BUN of 22, and creatinine 1.01. The patient's pro-calcitonin level is low at 0.23. Blood cultures are negative. Progress note dated 01/19/2022. 61-year-old male, again seen in room 380. The patient is now been in the hospital for 19 days. The patient underwent PEG tube placement yesterday by one of the surgeons. Is currently on room air. He still is getting TPN at 60 mL an hour. Not receiving any IV fluids. The patient will start tube feedings later today. No new labs today, other than a sugar of 143. Progress note dated 01/20/2022. 61-year-old male, again seen in room 380. Has been hospital now for nearly 3 weeks. The patient did have a PEG tube placed on January 18. Currently, he's on room air. His respiratory status is stable. No new labs today, other than a gl ucose of 115. From our perspective, the patient could be considered for discharge. He is certainly stable from pulmonary standpoint, without any pulmonary issues at this time. The patient is on room air. Objective - Vital Signs Vital signs: Vital Signs Temp 96.7 F L 01/20/22 09:00 Pulse 102 H 01/20/22 09:00 Resp 15 01/20/22 09:00 BP 106/58 01/20/22 09:00 Pulse Ox 96 01/20/22 03:36 FiO2 21 01/18/22 07:29 Intake & Output 01/19/22 01/20/22 01/20/22 18:59 06:59 18:59 Intake Total 1006 Output Total 1400 1075 Balance -394 -1075 Weight 90.5 kg 90.5 kg Intake: Intake, IV Titration 976 Amount Mvi, Adult No.4 with Vit 976 K 10 ml Trace (Conc-1Ml/ Dose) 1 ml Sodium Chloride 4Meq/ml Vial 16 meq Potassium Chloride 40 meq Magnesium Sulfate gm 0.5 gm In Amino Acid 5%- D15w+Lytes*E* 1,000 ml @ 60 mls/hr IV .BY DURATION [facility] Rx#:[id number] Oral 30 Output: Urine 1400 1075 Other: Voiding Method Indwelling Catheter Indwelling Catheter Indwelling Catheter # Bowel Movements 2 ABP, PAP, CO, CI - Last Documented Arterial Blood Pressure 130/71 - Exam No acute distress, oriented 3. Flat affect. Room air saturation 96 - 97 %. HEENT examination is grossly unremarkable. Neck supple. Full range of motion. No adenopathy thyromegaly or neck vein distention. Cardiovascular examination reveals regular rhythm rate. S1-S2 normal. No S3 or S4. No discernible murmur noted. Heart rate 93 bpm. Lungs reveal clear breath sounds. Breath sounds are equal bilaterally. No adventitious lung sounds including wheezes rhonchi or crackles. Abdomen soft bowel sounds are heard. No masses or tenderness. PEG tube noted. Extremities are intact. No cyanosis clubbing or edema. Skin is without rash or lesion. Neurologic examination is brief but nonfocal. - Labs CBC & Chem 7: 01/18/22 07:55 01/18/22 07:55 Labs: Abnormal Lab Results - Last 24 Hours (Table) 01/19/22 01/19/22 01/19/22 Range/Units 11:40 16:20 20:21 POC Glucose (mg/dL) 143 H 142 H 139 H (70-110) mg/dL 01/20/22 Range/Units 05:42 POC Glucose (mg/dL) 115 H (70-110) mg/dL Assessment and Plan Assessment: Septic shock, possibly secondary to sacral decubitus ulcer. Blood cultures negative. Status post PEG tube placement, 01/18/2022. Metabolic encephalopathy secondary to sepsis. History of gangrenous cholecystitis, status post open cholecystectomy. History of DVT. Stage IV decubitus ulcer, with wound VAC in place. Hypoalbuminemia. Non-anion gap metabolic acidosis. Type 2 diabetes mellitus. Chronic bronchial asthma, stable. Obstructive sleep apnea syndrome. Essential hypertension. Hyperlipidemia. General medical debility. Chronic anemia. Plan: Plan dated 01/17/2022. The patient remains on TPN, and Zosyn. The wound VAC remains in place. Labs, x-rays, and medications are reviewed. The patient's overall prognosis remains very poor. The patient will likely need placement after discharge to an extended care facility. The patient is a DO NOT RESUSCITATE patient. We will continue to follow and make recommendations where appropriate. Plan dated 01/18/2022. The plan today is to place a feeding tube. The patient currently remains on TPN. The antibiotics have been discontinued. Cultures are negative. Pro- calcitonin level is only 0.23. No additional recommendations are made. We will continue to follow the patient. The patient is a DO NOT RESUSCITATE patient. He likely is to be discharged to a nursing facility after the feeding tube is placed. Plan dated 01/19/2022. The patient did have a PEG tube placed yesterday by one of the surgeons. 2 feedings will start later today. The patient's currently on room air. The patient still is getting TPN at 60 mL an hour. He appears stable otherwise. No new labs today or chest x-ray today. Microbiologic studies have been negative. We will continue to follow make recommendations where appropriate. The patient is a DO NOT RESUSCITATE patient. Plan dated 01/20/2022. The patient remains on room air. His saturations are excellent. No active pulmonary issues at this time. The PEG tube was placed on January 18. He is not being used. We will see the patient moving forward, only as needed. Feel free to call us back into see the patient, should he develop an acute pulmonary iss ue. Labs, x-rays, and medications are all reviewed. The patient is a DO NOT RESUSCITATE patient. Time with Patient: Less than 30
[2022-01-20 11:56] LABS: Glucose,Whole Blood 105 mg/dL (70-110)
--- NOTE | 2022-01-20 14:47 | P.PN ---
Subjective Progress Note Date: 01/20/22 Patient's CBC has been stable, however awaiting for todays, as long as cleared from procedure standpoint he may restart anticoagulation Objective - Vital Signs Vital signs: Vital Signs Temp 98.4 F 01/20/22 11:36 Pulse 92 01/20/22 12:14 Resp 16 01/20/22 11:36 BP 98/63 01/20/22 11:36 Pulse Ox 96 01/20/22 03:36 FiO2 21 01/18/22 07:29 Intake & Output 01/19/22 01/20/22 01/20/22 18:59 06:59 18:59 Intake Total 1006 Output Total 1400 1075 Balance -394 -1075 Weight 90.5 kg 90.5 kg 90.5 kg Intake: Intake, IV Titration 976 Amount Mvi, Adult No.4 with Vit 976 K 10 ml Trace (Conc-1Ml/ Dose) 1 ml Sodium Chloride 4Meq/ml Vial 16 meq Potassium Chloride 40 meq Magnesium Sulfate gm 0.5 gm In Amino Acid 5%- D15w+Lytes*E* 1,000 ml @ 60 mls/hr IV .BY DURATION [facility] Rx#:[id number] Oral 30 Output: Urine 1400 1075 Other: Voiding Method Indwelling Catheter Indwelling Catheter Indwelling Catheter # Bowel Movements 2 ABP, PAP, CO, CI - Last Documented Arterial Blood Pressure 130/71 - Exam - Constitutional General appearance: Present: mild distress, obese - EENT Eyes: Present: anicteric sclerae - Respiratory Respiratory: bilateral: diminished - Cardiovascular Details: tachy Abnormal Heart Sounds: Present: systolic murmur - Gastrointestinal General gastrointestinal: Present: normal bowel sounds, soft - Musculoskeletal Musculoskeletal: Absent: gait normal, generalized weakness, strength equal bilaterally, right sided weakness, left sided weakness - Psychiatric Psychiatric: Absent: A&O x's 3, appropriate affect, intact judgment & insight - Labs CBC & Chem 7: 01/18/22 07:55 01/18/22 07:55 Labs: Abnormal Lab Results - Last 24 Hours (Table) 01/19/22 01/19/22 01/20/22 Range/Units 16:20 20:21 05:42 POC Glucose (mg/dL) 142 H 139 H 115 H (70-110) mg/dL Assessment and Plan Plan: Assessment and Plan Assessment: 1- Failure to thrive 2- RLE femoral vein DVT 3- Bleeding at lovenox injection site 4- Septic shock 5- Acute drop in Hemoglobin Plan: OK to restart Eliquis as long as ok from other specialties and procedure plans, await stable CBC today Hold if recurrent bleeding or drop in hemoglobin, no evidence of recurrent bleed since 01/09/22
--- NOTE | 2022-01-20 15:33 | P.PN ---
Progress Note - Text Progress Note Date: 01/20/22 Hospital course: this is a pleasant 61 yo M with past medical history of COPD, Diabetes Mellitus, Deep Vein Thrombosis, Hyperlipidemia, Hypertension, Sleep Apnea/CPAP/BIPAP He was in the hospital on 09/2021 for severe hypertension from decreased oral intake, acute metabolic encephalopathy, chronic congestive heart failure, diastolic with ejection fraction 55-60%, acute kidney injury, sinus tachycardia, status post cholecystectomy for his gangrenous cholecystitis, restless leg syndrome, BPH, chronic medical debility i talkled to the pt and at bed side , pt is from jail , he was jail since June 2021. At that time she was in the hospital for acute hypoxic respiratory failure of unknown causes. He needed intubation at that time. He had complete opacification in the left hemithorax he had 2 bronchoscopy done which was negative for microbial growth. He has another admission on 09/2021. Patient and states that he came here because he wanted to get the PEG tube because he was not eating anything since June and he lost a lot of weight he used to weigh 333 pounds and now 193. He states that his main issue is no appetite, he denies choking but he has sometimes nausea that prevent him from eating. Is also short of breath with cough and clear yellow phlegm but no chest pain, no abdominal pain. He has loose bowel movement once or twice a week. Also he has unstageable pressure decubitus ulcer status post debridement, he has wound VAC in place. Patient also complaining of from chronic left leg pain and tenderness, he would not allow someone to drop his leg because it hurts a lot. Inspection looks normal, no trauma. Also was complaining from weakness in both lower extremities since June Patient is tachycardic around 110, on admission heart rate was 125 afebrile. His lab reviewed including CBC showed mild anemia of 11.9, rest of CBC is un remarkable. INR is unremarkable at 1.1. Sodium was low at 123. Creatinine normal 0.8. Glucose was low at 66. Chest x-ray: No acute process. 01/02/2022 Last night patient was started on therapeutic dose Lovenox for acute right leg DVT, CT angiography chest and echo could not be done because have no IV access, patient was transferred to a small IV access was obtained in the right upper arm, not good enough for CT of the chest test or aggressive treatment. However IV fluids could be provided. Blood pressure is improved up to 110/68, however patient still tachycardic. Patient could not eat because of severe nausea and vomiting, H time he put something in his monthly follow-up as per bedside nurse, KUB showing some evidence of ileus, surgical team consult obtained. Social evaluation under direct consults are pending. 01/03/2022 Patient awake alert, looks more comfortable than the first taken to the hospital, less tachypneic, he denies any chest pain or abdominal pain. He tried to take small bites of mashed potato yesterday and he could not consume it and he immediately felt to throw up. CT of the chest is negative for PE, he remains on Lovenox for acute right DVT. CT of the abdomen is suspicious for a complex collection possible abscess although it's the size 5 cm diameter 2.7 cm, recommended ultrasound versus MRI, were going to order a liver ultrasound although it is of less sensitivity especially with this patient large body habitus however it is less invasive than MRI. Also flowcalcitonin is the slightly elevated. He is slightly tachycardic although is better than before. Blood pressure 93/63. Today sodium dropped 127 down to 122 because of this we held his IV fluids and reordered anemia workup in the urine and the serum, we will monitor his sodium level tomorrow if no improvement and may consider further workup. Surgical team consult is called, the plan for PEG tube placement on . Patient originally came to the hospital the PEG tube placement. Patient is not consuming his oral medication but we stopped his gabapentin and ropinirole. 01/04/2022 Kirsten Bach feels better today, he does not feel dizziness while he is lying in bed all the time. He still have low appetite but no chest pain or dyspnea, no abdominal pain. He still complaining from pain in his legs and he has right leg DVT been on Lovenox with plan to switch him to heparin drip on today as he got midline Blood pressure is 87/56, heart rate 120, sodium is 121 On admission his sodium was still low and was started on D5 normal saline at 100 mL/h however after initial improvement sodium dropped to 121 yesterday so we held his IV fluid and the evening sodium improved 124 (no iv lasix given), however this morning is 121 again. We send urine studies and I'll consult cottage master. Also patient has negative CTPA for pulmonary embolism but CT of the abdomen and pelvis showing possible gallbladder fossa abscess or complex fluid collection although it is improved from previous 5 cm down to 2.7 centimeters. The recommended liver ultrasound versus MRI, ultrasound shows the same findings. Also surgery due on the case 01/05/2022 Last night his blood pressure dropped with systolic and 50s, there was a rapid response a team response and he was as stated with IV fluids aggressively, his blood pressure improved in 90s this morning and during the round he was awake and alert looks tired but is appropriate. Sodium was 121 and then 119. He denied any chest pain or abdominal pain, no other complaints clinically. His losing from his puncture wound in the right lower abdomen was a stopped, he was started on heparin drip per recommendation of chief revenue officer. After once by the evening time his blood pressure dropped again was 53/32 with altered mental status, there was another rapid response where patient was transferred to the ICU and levophed was started and his mentation started to improve again. Patient was started also on antibiotic empirically with Zosyn and IV vancomycin total infection ruled out completely as there is still high suspicion, with possible sources including the pressure wound sacral ulcer in the lower back, and less likely the gallbladder bed and fossa with 2.7 cm fluid collection (felt less likely because actually it decreased in size from 5.0 cm previously) After transfer patient and at bedside opted for the DO NOT RESUSCITATE order as per bedside nurse. 01/06/2022 Yesterday patient was still deteriorating, however today patient turned around and start improving patient remains in the ICU he needs to pressors we will fit and vasopressin, lactic acid trending up 6.4. Patient mentation is also deteriorated and become more confused and less responsive. His creatinine remains around 1 although he has low urine output. Patient is resuscitated with many fluids and also his broad-spectrum antibiotics with IV vancomycin and Zosyn, as septic shock is highly suspected is the cause of the patient profound hypotension and shock state. Although other factors might be contributing to it. Because of this we started the patient on hydrocortisone to increase the sensitivity of the adrenergic receptors to the catecholamine. Also replacing electrolytes including calcium and magnesium. Sodium slightly trending up. Patient remains in critical condition. Family at bedside 01/07/2022 Patient today workup and he was awake alert and oriented 3, he follows commands, he feels hungry and actually he started tolerating diet for the first time after several months. He denies any respiratory symptoms, his abdomen looks benign, no other new complaints. Blood pressure is improving and he required less pressors, currently blood pressure is 87/61, is less tachycardic around 110. He is currently on levophed 0.03 which is decreased from yesterday. Last night we added hydrocortisone 100 mg 3 times a day as a replacement therapy but to support blood pressure and increased sensitivity of levophed to its adrenergic receptors. Since blood pressure improvement with lower dose to 50 mg today, possibly we will discontinue it in one or 2 days once blood pressure keep improvement. Also patient receiving fluids. Labs looks stable, hemoglobin 9.8, sodium 126 he remains on Zosyn, vancomycin was discontinued. He remains on Zosyn. Anticoagulation is switched to Eliquis therapeutic dose at 10 mg which could be switched to 5 mg on 01/17. Prognosis remains guarded 01/08/2022 Patient is awake but drowsy, His blood pressure is improving but he still on pressors although is requiring less amount He has poor urine output but creatinine is around 1.1. His GFR is 66. He is going to receive 1 dose of Lasix 80 mg today. Also significant sodium bicarb and albumin infusion. He remains on Zosyn Anticoagulation with Eliquis January 09 2022: I assumed care of patient today. ICU: Tired. Lethargic. Patient drips include vasopressin and norepinephrine. the bedside. Getting 2 units of PRBC. Received IV albumin yesterday. Also received some IV diuretics. 2 L nasal cannula. Hemoglobin 5.5 today. On IV Zosyn. Wound VAC. On clear liquids. 01/10/2022: ICU: Remains in bed. Tired. Lethargic. Following simple commands. On IV levo fed. IV Zosyn. Discussed with at the bedside. Eating small amounts. Receive 2 units of blood yesterday. 01/11/2022: ICU: Tired lethargic. at the bedside. IV levo fed. Poor oral intake. Discussed with Dr. Dong from ID. Rule out right upper quadrant abscess versus infected hematoma. Computed tomography scan with contrast ordered. 01/12/2022: ICU: Drip planning a bit. But more awake. Answers simple questions. Poor oral intake. Discussed with the patient. Refuses PEG tube. present. Computed tomography scan abdomen canceled by Dr. Chow. BP is running on the lower side. Decrease Lopressor to 25 mg twice a day. 01/13/2022: ICU: Remains tired lethargic. TPN lipids ordered by pulmonary. Spoke to the patient and at the bedside. Patient refuses NG tube feeding. Did also inform them that sleep 2 first consequences including . No changing his mind. Spoke to the at the bedside. She'll have a brother come in and talked with the patient again. Computed tomography scan abdomen results discussed with the radiologist. Right upper quadrant no obvious abscess or hematoma. A lot of fluids/third spacing. 01/14/2022: ICU: Tired. I again spoke to the and the patient. Does not want to feeding of any sorts. Has TPN lipids running. Also discussed that this is very temporary. Blood pressure running low. Jeremiah wrap ordered with Denise. Prognosis poor. Also discussed with Dr. Hawk from pulmonary. Patient was placed on levo fed last night. 01/15/2022: ICU: Remains diet. A bit more awake. present. Again spoke to patient and the at the bedside. He does not want any PEG tube or NG tube feeding. Getting TPN lipids. I again explained poor prognosis. Including . 01/16/2022: Patient medical floor. Getting TPN lipids. Present this patient's , daughter, [id number]. Patient is to feeding including NG tube was again discussed. Patient does not want the same. Hospice was discussed. They do not want the same. Plan is for patient to go back to inpatient rehab understanding the prognosis which is poor which is again discussed. Patient eating minimal. 01/17/2022: Getting TPN lipids. Oral intake poor. Had a very lengthy discussion at the bedside. The patient, his and nurse Vandana present. After load obesity with the patient he is agreed to proceed with a PEG tube. Dr. Renetta kaye is being informed. 01/18/2022: Patient received a PEG tube today by Dr. Jackson. Postprocedure comfortable. More talkative a bit more cheerful today. On TPN lipids. January 19: Dietitian to start PEG tube feeding today. We will taper off TPN lipids. Discussed with the patient. Marinol has not been much of health with appetite has will DC the same. January 20: Tube feeding at 30 mL an hour. Patient more communicative, talking. is at bedside. Not keen to eat. Active Medications Albuterol Sulfate (Albuterol Nebulized 2.5 Mg/3 Ml) 2.5 mg INHALATION Q2H PRN PRN Reason: AIRWAY PATENCY Last Admin: 01/17/22 03:12 Dose: 2.5 mg Albuterol/Ipratropium (Ipratropium-Albuterol 3 Ml Neb) 3 ml INHALATION RT-QID [facility] Last Admin: 01/20/22 12:02 Dose: 3 ml Ascorbic Acid (Ascorbic Acid 500 Mg Tab) 1,000 mg PO DAILY@0800 [facility] Last Admin: 01/20/22 09:32 Dose: 1,000 mg Cholecalciferol (Cholecalciferol 25 Mcg (1000 Iu) Tablet) 25 mcg PO DAILY [facility] Last Admin: 01/20/22 09:32 Dose: 25 mcg Famotidine (Famotidine 20 Mg Tab) 20 mg PO BID [facility] Last Admin: 01/20/22 09:32 Dose: 20 mg Fludrocortisone Acetate (Fludrocortisone 0.1 Mg Tab) 0.05 mg PO BID [facility] Last Admin: 01/20/22 09:32 Dose: 0.05 mg Folic Acid (Folic Acid 1 Mg Tab) 1 mg PO DAILY [facility] Last Admin: 01/20/22 09:32 Dose: 1 mg Furosemide (Furosemide 10 Mg/Ml 4 Ml Vial) 40 mg IV BID [facility] Last Admin: 01/20/22 09:31 Dose: 40 mg Sodium Chloride (Saline 0.9%) 1,000 mls @ 10 mls/hr IV .Q24H [facility] Last Admin: 01/20/22 09:39 Dose: 10 mls/hr Fat Emulsion Intravenous 500 (ml/ IV Solution) 500 mls @ 42 mls/hr IV We@1800 [facility] Last Admin: 01/19/22 18:46 Dose: Not Given Insulin Aspart (Insulin Aspart (Novolog) 100 Unit/Ml Vial) 0 unit SQ ACHS [facility]; Protocol Last Admin: 01/20/22 12:05 Dose: Not Given Lidocaine HCl (Lidocaine 1% (10mg/Ml) For Iv Start) 0.1 ml INTRADERMA PER PROTOCOL PRN PRN Reason: IV Start Metoprolol Tartrate (Metoprolol Tartrate 25 Mg Tab) 25 mg PO BID@0800,1600 [facility] Last Admin: 01/20/22 09:38 Dose: 25 mg Midodrine (Midodrine 5 Mg Tab) 10 mg PO AC-TID [facility] Last Admin: 01/20/22 14:01 Dose: 10 mg Miscellaneous Information (Phosphorus Replacement Protoco 1 Each Misc) 1 each MISCELLANE DAILY PRN; Protocol PRN Reason: Per Protocol Miscellaneous Information (Magnesium Replacement Protocol 1 Each Misc) 1 each MISCELLANE DAILY PRN; Protocol PRN Reason: Per Protocol Miscellaneous Information (Potassium Replacement Protocol 1 Each Misc) 1 each MISCELLANE DAILY PRN; Protocol PRN Reason: Per Protocol Multivitamins (Multivitamins, Thera 1 Each Tab) 1 each PO DAILY [facility] Last Admin: 01/20/22 09:33 Dose: 1 each Ondansetron HCl (Ondansetron 4 Mg/2 Ml Vial) 4 mg IVP Q6HR PRN PRN Reason: Nausea And Vomiting Last Admin: 01/02/22 18:15 Dose: 4 mg Sodium Chloride (Sodium Chloride 0.9% Flush 10 Ml Syringe) 10 ml IV Q4HR PRN PRN Reason: PICC Line Sodium Chloride (Sodium Chloride 0.9% Flush 10 Ml Syringe) 10 ml IV WEEKLY [facility] Last Admin: 01/19/22 08:35 Dose: 10 ml Sodium Chloride (Sodium Chloride 0.9% Flush 10 Ml Syringe) 20 ml IV Q4HR PRN PRN Reason: PICC Line Tamsulosin HCl (Tamsulosin 0.4 Mg Cap.Er.24h) 0.4 mg PO DAILY [facility] Last Admin: 01/20/22 09:32 Dose: 0.4 mg On examination: VITAL SIGNS: 98.4, 93, 97, 16, 98/63, GENERAL APPEARANCE: awake and talkative HEENT: Normal external appearance of nose and ear. Oral cavity normal EYES: Pupils equal. Conjunctiva normal. NECK: JVD unable to assess. Mass not palpable. RESPIRATORY: Respiratory effort increased. Decreased breath sounds to auscultation. CARDIOVASCULAR: First and second sounds normal. Some edema. ABDOMEN: Soft. Liver and spleen not palpable. No tenderness. No mass palpable. PSYCHIATRY: AO 3. Muscular skeletal: Stage IV pressure ulcer left buttock. With wound VAC INVESTIGATIONS, reviewed in the clinical context: January 18: WBC 4.6 hemoglobin 8.6 potassium 4.2 creatinine 1.01 January 17: White count 3.3 hemoglobin 7.7 platelets 129 potassium 3.2 creatinine 1.04 January 16: Potassium 3.6 creatinine 1.14 January 15: Potassium 2.6 creatinine 1.19 January 14: WBC 3.2 hemoglobin 9 at bedtime 114 potassium 3.9 creatinine 1.19 pro- calcitonin 0.28 albumin 1.6 CRP 5.5 January 13: White count 3.5 hemoglobin 10.4 platelets 95 January 12: WBC 4.5 hemoglobin 9.9 potassium 3.6 creatinine 1.2 to albumin 2.0 January 11: White count 5.6 hemoglobin 10.3 sodium 132 potassium 3.5 creatinine 1.24 January 10: Obesity 4.9 hemoglobin 8.4 platelets 137 sodium 137 potassium 3.3 creatinine 1.2 January 09: White count 5.6 hemoglobin 5.5 platelets 179 sodium 128 potassium 3.2 creatinine 1.25 albumin 2.2 LIVER: ULTRASOUND:. PRIOR CHOLECYSTECTOMY. COMPLEX AREA SEEN IN THE GALLBLADDER FOSSA. CONTAINING A FEW BUBBLES. CT abdomen: Persistent heterogenous hyperdense area in the hepatic parenchyma adjacent to the gallbladder fossa. Limited 2-D echocardiogram: Home LV function. Ultrasound venous Doppler: Positive DVT right lower extremity. Assessment and plan: Severe hypotension and shock state requiring pressors, possible septic shock : Some improvement Off levo fed. -Acute metabolic encephalopathy, multifactorial: Improvement -Complex liver collection adjacent to gallbladder fossa 2.7 cm Repeat computed tomography scan not suggestive of abscess/hematoma -Hyponatremia: Better Follow labs -Severe hypokalemia: Better Replacementnone -Persistent nausea and vomiting secondary to ileus,: Better -Acute right leg DVT Eliquis -Severe anorexia: Slow to respond On Marinol. Encourage oral intake -Dehydration and hypovolemia, improving -Unstageable chronic decubitus ulcer - wound VAC placement -Anemia of chronic diseases -Acute drop in hemoglobin from 10-5.5. Patient is on eliquis. -Hyperphosphatemia Supplement phosphorus -Hypotension multifactorial Florinef 0.05 mg by mouth twice a day, midodrine 10 mg 3 times a day Hyperlipidemia -COPD DuoNeb 4 times a day -Chronic congestive heart failure with ejection fraction 55-60% On Lasix. Lopressor -Sinus tachycardia -Restless leg syndrome -BPH Flomax -Anorexia Marinol, did not help. -Chronic medical debility -Moderate protein calorie malnutrition from poor oral intake peg tube placed January 18. . PEG tube feeding at 30 mL an hour. DO NOT RESUSCITATE TPN and lipids. : Discontinued DP and lipids have been discontinued. PEG tube feeding at 30 mL an hour. Discussed with patient and . Hoping to be discharged tomorrow.
[2022-01-20 17:47] LABS: Glucose,Whole Blood 104 mg/dL (70-110)
[2022-01-20 18:10] LABS: Basophils % (A) 1 %; Eosinophils # (A) 0.1 k/uL (0-0.7); Eosinophils % (A) 2 %; HCT 24.6 % (39.0-53.0); HGB 7.8 gm/dL (13.0-17.5); Lymphocytes # (A) 1.2 k/uL (1.0-4.8); Lymphocytes % (A) 24 %; MCH 28.5 pg (25.0-35.0); MCHC 31.5 g/dL (31.0-37.0); MCV 90.5 fL (80.0-100.0); Mean Platelet Volume 7.6; Monocytes # (A) 0.2 k/uL (0-1.0); Monocytes % (A) 4 %; Neutrophils # (A) 3.3 k/uL (1.3-7.7); Neutrophils % (A) 68 %; Platelet Count 257 k/uL (150-450); RBC 2.72 m/uL (4.30-5.90); RDW 19.2 % (11.5-15.5); WBC 4.9 k/uL (3.8-10.6)
[2022-01-20 18:18] LABS: ALT 32 U/L (4-49); AST 68 U/L (17-59); African American GFR (CKD) >90 (>60 ml/min/1.73 sqM); Albumin 1.9 g/dL (3.5-5.0); Alkaline Phosphatase 270 U/L (38-126); Anion Gap 1 mmol/L; Blood Urea Nitrogen 22 mg/dL (9-20); Carbon Dioxide 35 mmol/L (22-30); Chloride 98 mmol/L (98-107); Glucose 88 mg/dL (74-99); Non-African American GFR(CKD) >90 (>60 ml/min/1.73 sqM); Phosphorus 3.5 mg/dL (2.5-4.5); Potassium 3.4 mmol/L (3.5-5.1); Sodium 134 mmol/L (137-145); Total Bilirubin 0.3 mg/dL (0.2-1.3); Total Protein 4.1 g/dL (6.3-8.2)
[2022-01-20 20:33] LABS: Glucose,Whole Blood 129 mg/dL (70-110)
[2022-01-21 06:13] LABS: Glucose,Whole Blood 110 mg/dL (70-110)
[2022-01-21] MEDS: INSULIN ASPART (NovoLOG) 100 UNIT/ML VIAL SQ SCH ×3 (06:41→16:23)
[2022-01-21] MEDS: MIDODRINE 5 MG TAB PO SCH ×3 (06:48→16:19)
[2022-01-21] MEDS: IPRATROPIUM-ALBUTEROL 3 ML NEB INHALATION SCH ×3 (08:07→15:42)
[2022-01-21] MEDS: ASCORBIC ACID 500 MG TAB PO SCH (09:03)
[2022-01-21] MEDS: FLUDROCORTISONE 0.1 MG TAB PO SCH (09:04)
[2022-01-21] MEDS: CHOLECALCIFEROL 25 MCG (1000 IU) TABLET PO SCH (09:04)
[2022-01-21] MEDS: FAMOTIDINE 20 MG TAB PO SCH (09:04)
[2022-01-21] MEDS: METOPROLOL TARTRATE 25 MG TAB PO SCH ×2 (09:04→16:19)
[2022-01-21] MEDS: MULTIVITAMINS, THERA 1 EACH TAB PO SCH (09:05)
[2022-01-21] MEDS: TAMSULOSIN 0.4 MG CAP.ER.24H PO SCH (09:05)
[2022-01-21] MEDS: FOLIC ACID 1 MG TAB PO SCH (09:05)
[2022-01-21] MEDS: FUROSEMIDE 10 MG/ML 4 ML VIAL IV SCH (09:19)
[2022-01-21 11:52] LABS: Glucose,Whole Blood 104 mg/dL (70-110)
[2022-01-21 12:06] VITALS: RESP 18
--- NOTE | 2022-01-21 12:43 | P.PN ---
Subjective Progress Note Date: 01/21/22 CHIEF COMPLAINT: Dehydration and failure to thrive HISTORY OF PRESENT ILLNESS: Patient is status post PEG tube placement. He denies any abdominal pain. Denies any nausea or vomiting. He reports having B Ms. He is tolerating tube feeds. Tube feeds are at goal at 40 mL per hour. Minimal residual 5 mL. Patient appears more confused today. PHYSICAL EXAM: VITAL SIGNS: Reviewed. GENERAL: Well-developed in no acute distress. HEENT: No sclera icterus. Extraocular movements grossly intact. Moist buccal mucosa. Head is atraumatic, normocephalic. ABDOMEN: Soft. Nondistended. Nontender. PEG tube site clean dry and intact NEUROLOGIC: Confused ASSESSMENT: 1. Severe protein calorie malnutrition status post PEG tube placement 2. Abdominal ileus resolved PLAN: -Continue tube feeds -Continue supportive care Physician Flake Drier note has been reviewed by physician. Signing provider agrees with the documented findings, assessment, and plan of care. I have personally seen and examined the patient, reviewed the PHARMACOEPIDEMIOLOGIST /PAs history, exam and MDM and agree with the assessment and plan as written. Based on total visit time, I have performed more than 50% of the visit. As above: Patient doing well today. [facility]. Tolerating tube feeds at 40 mL/h. No abdominal pain or tenderness. If the patient is not transfer Dr. Jackson will resume coverage on Monday. Call if needed. Objective - Vital Signs Vital signs: Vital Signs Temp 97.9 F 01/21/22 12:00 Pulse 95 01/21/22 12:00 Resp 18 01/21/22 12:00 BP 115/76 01/21/22 12:00 Pulse Ox 96 01/21/22 12:00 FiO2 21 01/18/22 07:29 Intake & Output 01/20/22 01/21/22 01/21/22 18:59 06:59 18:59 Output Total 800 Balance -800 Weight 90.5 kg 83.5 kg Output: Urine 800 Uretheral (Smith) 500 Other: Voiding Method Indwelling Catheter Indwelling Catheter ABP, PAP, CO, CI - Last Documented Arterial Blood Pressure 130/71 - Labs CBC & Chem 7: 01/20/22 18:02 01/20/22 18:02 Labs: Abnormal Lab Results - Last 24 Hours (Table) 0701/20/22 01/20/22 Range/Units 18:02 18:02 20:32 RBC 2.72 L (4.30-5.90) m/uL Hgb 7.8 L (13.0-17.5) gm/dL Hct 24.6 L (39.0-53.0) % RDW 19.2 H (11.5-15.5) % Sodium 134 L (137-145) mmol/L Potassium 3.4 L (3.5-5.1) mmol/L Carbon Dioxide 35 H (22-30) mmol/L BUN 22 H (9-20) mg/dL POC Glucose (mg/dL) 129 H (70-110) mg/dL Calcium 8.0 L (8.4-10.2) mg/dL AST 68 H (17-59) U/L Alkaline Phosphatase 270 H (38-126) U/L Total Protein 4.1 L (6.3-8.2) g/dL Albumin 1.9 L (3.5-5.0) g/dL
--- NOTE | 2022-01-21 14:16 | P.DS ---
Providers Date of admission: 12/31/21 14:52 Expected date of discharge: 01/21/22 Attending physician: Ryan Nelson Consults: 01/04/22 10:20 Consult Physician Urgent Consulting Provider: Claudia Henderson Consult Reason/Comments: possible liver abscess Do you want consulting provider notified?: Yes 01/04/22 11:07 Consult Physician Urgent Consulting Provider: Stephanie Milligan Consult Reason/Comments: hyponatremia Do you want consulting provider notified?: Yes 01/04/22 16:09 Consult Physician Routine Consulting Provider: Aubrey Sainz Consult Reason/Comments: unusual bleeding after lovenox Do you want consulting provider notified?: Yes, Notify in am 01/05/22 16:57 Consult Physician Urgent Consulting Provider: Beltran Cordova 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 Do you want consulting provider notified?: Already Contacted 01/17/22 12:53 Consult Physician Routine Consulting Provider: Clint Jackson Consult Reason/Comments: peg tube Do you want consulting provider notified?: Already Contacted Primary care physician: Seda Schneider [facility] Course: Hospital course: this is a pleasant 61 yo M with past medical history of COPD, Diabetes Mellitus, Deep Vein Thrombosis, Hyperlipidemia, Hypertension, Sleep Apnea/CPAP/BIPAP He was in the hospital on 09/2021 for severe hypertension from decreased oral intake, acute metabolic encephalopathy, chronic congestive heart failure, diastolic with ejection fraction 55-60%, acute kidney injury, sinus tachycardia, status post cholecystectomy for his gangrenous cholecystitis, restless leg syndrome, BPH, chronic medical debility i talkled to the pt and at bed side , pt is from custodial , he was custodial since June 2021. At that time she was in the hospital for acute hypoxic respiratory failure of unknown causes. He needed intubation at that time. He had complete opacification in the left hemithorax he had 2 bronchoscopy done which was negative for microbial growth. He has another admission on 09/2021. Patient and states that he came here because he wanted to get the PEG tube because he was not eating anything since June and he lost a lot of weight he used to weigh 333 pounds and now 193. He states that his main issue is no appetite, he denies choking but he has sometimes nausea that prevent him from eating. Is also short of breath with cough and clear yellow phlegm but no chest pain, no abdominal pain. He has loose bowel movement once or twice a week. Also he has unstageable pressure decubitus ulcer status post debridement, he has wound VAC in place. Patient also complaining of from chronic left leg pain and tenderness, he would not allow someone to drop his leg because it hurts a lot. Inspection looks normal, no trauma. Also was complaining from weakness in both lower extremities since June Patient is tachycardic around 110, on admission heart rate was 125 afebrile. His lab reviewed including CBC showed mild anemia of 11.9, rest of CBC is unremarkable. INR is unremarkable at 1.1. Sodium was low at 123. Creatinine normal 0.8. Glucose was low at 66. Chest x-ray: No acute process. 01/02/2022 Last night patient was started on therapeutic dose Lovenox for acute right leg DVT, CT angiography chest and echo could not be done because have no IV access, patient was transferred to a small IV access was obtained in the right upper arm, not good enough for CT of the chest test or aggressive treatment. However IV fluids could be provided. Blood pressure is improved up to 110/68, however patient still tachycardic. Patient could not eat because of severe nausea and vomiting, H time he put something in his monthly follow-up as per bedside nurse, KUB showing some evidence of ileus, surgical team consult obtained. Social evaluation under direct consults are pending. 01/03/2022 Patient awake alert, looks more comfortable than the first taken to the hospital, less tachypneic, he denies any chest pain or abdominal pain. He tried to take small bites of mashed potato yesterday and he could not consume it and he immediately felt to throw up. CT of the chest is negative for PE, he remains on Lovenox for acute right DVT. CT of the abdomen is suspicious for a complex collection possible abscess although it's the size 5 cm diameter 2.7 cm, recommended ultrasound versus MRI, were going to order a liver ultrasound although it is of less sensitivity lupe ecially with this patient large body habitus however it is less invasive than MRI. Also flowcalcitonin is the slightly elevated. He is slightly tachycardic although is better than before. Blood pressure 93/63. Today sodium dropped 127 down to 122 because of this we held his IV fluids and reordered anemia workup in the urine and the serum, we will monitor his sodium level tomorrow if no improvement and may consider further workup. Surgical team consult is called, the plan for PEG tube placement on . Patient originally came to the hospital the PEG tube placement. Patient is not consuming his oral medication but we stopped his gabapentin and ropinirole. 01/04/2022 Kirsten Bach feels better today, he does not feel dizziness while he is lying in bed all the time. He still have low appetite but no chest pain or dyspnea, no abdominal pain. He still complaining from pain in his legs and he has right leg DVT been on Lovenox with plan to switch him to heparin drip on today as he got midline Blood pressure is 87/56, heart rate 120, sodium is 121 On admission his sodium was still low and was started on D5 normal saline at 100 mL/h however after initial improvement sodium dropped to 121 yesterday so we held his IV fluid and the evening sodium improved 124 (no iv lasix given), however this morning is 121 again. We send urine studies and I'll consult jd edwards developer. Also patient has negative CTPA for pulmonary embolism but CT of the abdomen and pelvis showing possible gallbladder fossa abscess or complex fluid collection although it is improved from previous 5 cm down to 2.7 centimeters. The recommended liver ultrasound versus MRI, ultrasound shows the same findings. Also surgery due on the case 01/05/2022 Last night his blood pressure dropped with systolic and 50s, there was a rapid response a team response and he was as stated with IV fluids aggressively, his blood pressure improved in 90s this morning and during the round he was awake and alert looks tired but is appropriate. Sodium was 121 and then 119. He denied any chest pain or abdominal pain, no other complaints clinically. His losing from his puncture wound in the right lower abdomen was a stopped, he was started on heparin drip per recommendation of utility tech. After once by the evening time his blood pressure dropped again was 53/32 with altered mental status, there was another rapid response where patient was transferred to the ICU and levophed was started and his mentation started to improve again. Patient was started also on antibiotic empirically with Zosyn and IV vancomycin total infection ruled out completely as there is still high suspicion, with possible sources including the pressure wound sacral ulcer in the lower back, and less likely the gallbladder bed and fossa with 2.7 cm fluid collection (felt less likely because actually it decreased in size from 5.0 cm previously) After transfer patient and at bedside opted for the DO NOT RESUSCITATE order as per bedside nurse. 01/06/2022 Yesterday patient was still deteriorating, however today patient turned around and start improving patient remains in the ICU he needs to pressors we will fit and vasopressin, lactic acid trending up 6.4. Patient mentation is also deteriorated and become more confused and less responsive. His creatinine remains around 1 although he has low urine output. Patient is resuscitated with many fluids and also his broad-spectrum antibiotics with IV vancomycin and Zosyn, as septic shock is highly suspected is the cause of the patient profound hypotension and shock state. Although other factors might be contributing to it. Because of this we started the patient on hydrocortisone to increase the sensitivity of the adrenergic receptors to the catecholamine. Also replacing electrolytes including calcium and magnesium. Sodium slightly trending up. Patient remains in critical condition. Family at bedside 01/07/2022 Patient today workup and he was awake alert and oriented 3, he follows commands, he feels hungry and actually he started tolerating diet for the first time after several months. He denies any respiratory symptoms, his abdomen looks benign, no other new complaints. Blood pressure is improving and he required less pressors, currently blood pressure is 87/61, is less tachycardic around 110. He is currently on levophed 0.03 which is decreased from yesterday. Last night we added hydrocortisone 100 mg 3 times a day as a replacement therapy but to support blood pressure and increased sensitivity of levophed to its adrenergic receptors. Since blood pressure improvement with lower dose to 50 mg today, possibly we will discontinue it in one or 2 days once blood pressure keep improvement. Also patient receiving fluids. Labs looks stable, hemoglobin 9.8, sodium 126 he remains on Zosyn, vancomycin was discontinued. He remains on Zosyn. Anticoagulation is switched to Eliquis therapeutic dose at 10 mg which could be switched to 5 mg on 01/17. Prognosis remains guarded 01/08/2022 Patient is awake but drowsy, His blood pressure is improving but he still on pressors although is requiring less amount He has poor urine output but creatinine is around 1.1. His GFR is 66. He is going to receive 1 dose of Lasix 80 mg today. Also significant sodium bicarb and albumin infusion. He remains on Zosyn Anticoagulation with Eliquis January 09 2022: I assumed care of patient today. ICU: Tired. Lethargic. Patient drips include vasopressin and norepinephrine. the bedside. Getting 2 units of PRBC. Received IV albumin yesterday. Also received some IV diuretics. 2 L nasal cannula. Hemoglobin 5.5 today. On IV Zosyn. Wound VAC. On clear liquids. 01/10/2022: ICU: Remains in bed. Tired. Lethargic. Following simple commands. On IV levo fed. IV Zosyn. Discussed with at the bedside. Eating small amounts. Receive 2 units of blood yesterday. 01/11/2022: ICU: Tired lethargic. at the bedside. IV levo fed. Poor oral intake. Discussed with Dr. Dong from ID. Rule out right upper quadrant abscess versus infected hematoma. Computed tomography scan with contrast ordered. 01/12/2022: ICU: Drip planning a bit. But more awake. Answers simple questions. Poor oral intake. Discussed with the patient. Refuses PEG tube. present. Computed tomography scan abdomen canceled by Dr. Chow. BP is running on the lower side. Decrease Lopressor to 25 mg twice a day. 01/13/2022: ICU: Remains tired lethargic. TPN lipids ordered by pulmonary. Spoke to the patient and at the bedside. Patient refuses NG tube feeding. Did also inform them that sleep 2 first consequences including . No changing his mind. Spoke to the at the bedside. She'll have a brother come in and talked with the patient again. Computed tomography scan abdomen results discussed with the radiologist. Right upper quadrant no obvious abscess or hematoma. A lot of fluids/third spacing. 01/14/2022: ICU: Tired. I again spoke to the and the patient. Does not want to feeding of any sorts. Has TPN lipids running. Also discussed that this is very temporary. Blood pressure running low. Jeremiah wrap ordered with Denise. Prognosis poor. Also discussed with Dr. Hawk from pulmonary. Patient was placed on levo fed last night. 01/15/2022: ICU: Remains diet. A bit more awake. present. Again spoke to patient and the at the bedside. He does not want any PEG tube or NG tube feeding. Getting TPN lipids. I again explained poor prognosis. Including . 01/16/2022: Patient medical floor. Getting TPN lipids. Present this patient's , daughter, [id number]. Patient is to feeding including NG tube was again discussed. Patient does not want the same. Hospice was discussed. They do not want the same. Plan is for patient to go back to inpatient rehab understanding the prognosis which is poor which is again discussed. Patient eating minimal. 01/17/2022: Getting TPN lipids. Oral intake poor. Had a very lengthy discussion at the bedside. The patient, his and nurse Vandana present. After load obesity with the patient he is agreed to proceed with a PEG tube. Dr. Renetta kaye is being informed. 01/18/2022: Patient received a PEG tube today by Dr. Jackson. Postprocedure comfortable. More talkative a bit more cheerful today. On TPN lipids. January 19: Dietitian to start PEG tube feeding today. We will taper off TPN lipids. Discussed with the patient. Marinol has not been much of health with appetite has will DC the same. January 20: Tube feeding at 30 mL an hour. Patient more communicative, talking. is at bedside. Not keen to eat. January 21: Tube feeding at 80 mL an hour at goal. Discussed with dietitian. This seems to be followed as outpatient. Discussed with patient and . Encourage oral intake. Discussed with test case developer. DC to rehab. Follow up with wound care team Discussion and discharge planning more than 35 minutes On examination: VITAL SIGNS: 97.9, 95, 18, 115-76, 96% room air GENERAL APPEARANCE: awake and talking more HEENT: Normal external appearance of nose and ear. Oral cavity normal EYES: Pupils equal. Conjunctiva normal. NECK: JVD unable to assess. Mass not palpable. RESPIRATORY: Respiratory effort increased. Decreased breath sounds to auscultation. CARDIOVASCULAR: First and second sounds normal. Some edema. ABDOMEN: Soft. Liver and spleen not palpable. No tenderness. No mass palpable. PSYCHIATRY: AO 3. Muscular skeletal: Stage IV pressure ulcer left buttock. With wound VAC INVESTIGATIONS, reviewed in the clinical context: January 20: WBC 4.9 hemoglobin 7.8. His 257 potassium 3.4 creatinine 0.84 albumin 1.9 January 09: White count 5.6 hemoglobin 5.5 platelets 179 sodium 128 potassium 3.2 creatinine 1.25 albumin 2.2 LIVER: ULTRASOUND:. PRIOR CHOLECYSTECTOMY. COMPLEX AREA SEEN IN THE GALLBLADDER FOSSA. CONTAINING A FEW BUBBLES. CT abdomen: Persistent heterogenous hyperdense area in the hepatic parenchyma adjacent to the gallbladder fossa. Limited 2-D echocardiogram: Home LV function. Ultrasound venous Doppler: Positive DVT right lower extremity. Assessment and plan: Severe hypotension and shock state requiring pressors, possible septic shock : improvement Off levo fed. Midodrine 5 mg 3 times a day. Florinef 0.05 mg twice a day. Jeremiah wrap's -Acute metabolic encephalopathy, multifactorial: Improved -Complex liver collection adjacent to gallbladder fossa 2.7 cm Repeat computed tomography scan not suggestive of abscess/hematoma . Not for any further intervention. This was also ordered by ID. -Hyponatremia: Better Follow labs -Severe hypokalemia: Better Replacementnone -Persistent nausea and vomiting secondary to ileus,: Better -Acute right leg DVT Eliquis -Severe anorexia: Slow to respond Marinol tried. Discontinued.. Encourage oral intake -Dehydration and hypovolemia, better -Unstageable chronic decubitus ulcer - wound VAC placement -Anemia of chronic diseases -Acute drop in hemoglobin from 10-5.5. Patient is on eliquis. -Hyperphosphatemia Supplement phosphorus Hyperlipidemia -COPD DuoNeb 4 times a day -Chronic congestive heart failure with ejection fraction 55-60% On Lasix. Lopressor -Sinus tachycardia -Restless leg syndrome -BPH Flomax . -Chronic medical debility Nonambulatory -Moderate protein calorie malnutrition from poor oral intake peg tube placed January 18. . PEG tube feeding at 80 mL an hour. DO NOT RESUSCITATE Disposition: [facility] Patient Condition at Discharge: Fair Plan - Discharge Summary New Discharge Prescriptions: New Metoprolol Tartrate [Lopressor] 12.5 mg PO TID #1 tab Midodrine [ProAmatine] 5 mg PO AC-TID tab Furosemide [Lasix] 40 mg PO DAILY #1 tablet Continue rOPINIRole HCL [Requip] 1 mg PO HS Tamsulosin [Flomax] 0.4 mg PO DAILY Multivitamins, Thera [Multivitamin (formulary)] 1 tab PO DAILY Ascorbic Acid [Vitamin C] 1,000 mg PO DAILY@0800 Albuterol Sulfate [Ventolin HFA] 2 puff INHALATION Q2H PRN PRN Reason: AIRWAY PATENCY Acetaminophen [Acetaminophen ER] 650 mg PO Q6H PRN PRN Reason: Pain Folic Acid 0.8 mg PO DAILY Ipratropium-Albuterol Nebulize [Duoneb 0.5 mg-3 mg/3 ml Soln] 3 ml INHALATION RT-QID ml Cholecalciferol [Vitamin D3 (25 Mcg = 1000 Iu)] 25 mcg PO DAILY Promethazine HCl 12.5 mg PO Q12H PRN PRN Reason: Nausea Famotidine [Pepcid] 20 mg PO BID@0800,1600 Gabapentin [Neurontin] 100 mg PO HS #3 cap Discontinued Aspirin EC [Ecotrin Low Dose] 81 mg PO DAILY HYDROcodone/APAP 5-325MG [[place] 5-325] 1 tab PO Q6HR PRN PRN Reason: Pain Potassium Chloride ER [K-Dur 20] 20 meq PO DAILY hydrALAZINE HCL 50 mg PO BID@0500,1600 Metoprolol Tartrate [Lopressor] 50 mg PO BID@0800,1600 dronabinoL [Dronabinol] 5 mg PO BID@1200,1700 Potassium Chloride ER [K-Dur 20] 40 meq PO HS Discharge Medication List Tamsulosin [Flomax] 0.4 mg PO DAILY 08/23/18 [History] rOPINIRole HCL [Requip] 1 mg PO HS 08/23/18 [History] Ipratropium-Albuterol Nebulize [Duoneb 0.5 mg-3 mg/3 ml Soln] 3 ml INHALATION RT-QID ml 07/16/21 [Rx] Ascorbic Acid [Vitamin C] 1,000 mg PO DAILY@0800 09/09/21 [History] Cholecalciferol [Vitamin D3 (25 Mcg = 1000 Iu)] 25 mcg PO DAILY 09/09/21 [History] Multivitamins, Thera [Multivitamin (formulary)] 1 tab PO DAILY 09/09/21 [History] Acetaminophen [Acetaminophen ER] 650 mg PO Q6H PRN 12/31/21 [History] Albuterol Sulfate [Ventolin HFA] 2 puff INHALATION Q2H PRN 12/31/21 [History] Famotidine [Pepcid] 20 mg PO BID@0800,1600 12/31/21 [History] Folic Acid 0.8 mg PO DAILY 12/31/21 [History] Promethazine HCl 12.5 mg PO Q12H PRN 12/31/21 [History] Furosemide [Lasix] 40 mg PO DAILY #1 tablet 01/21/22 [Rx] Gabapentin [Neurontin] 100 mg PO HS #3 cap 01/21/22 [Rx] Metoprolol Tartrate [Lopressor] 12.5 mg PO TID #1 tab 01/21/22 [Rx] Midodrine [ProAmatine] 5 mg PO AC-TID tab 01/21/22 [Rx] Follow up Appointment(s)/Referral(s): Seda Schneider MD [Primary Care Provider] - 1-2 days Activity/Diet/Wound Care/Special Instructions: wound care PEG tube feeding
[2022-01-21 14:24] VITALS: BMI 28.0
[2022-01-21 16:20] VITALS: BP 98/59; PULSE 98; TEMP 98.1
[2022-01-21 16:24] LABS: Glucose,Whole Blood 152 mg/dL (70-110)
== END 2022-01-21 17:45 | DRG 640 ==
LOC: EC 12:41 → 5NMEDONC 14:52 → 3SCARD 01-02 03:13 → 2SICU 01-05 17:10 → 3SCARD 01-16 06:43
PROVIDERS: ADMIT Hospitalist; ATTEND Hospitalist
PROC: 05HF33Z Insertion of Infusion Device into Left Cephalic Vein, Percutaneous Approach (ICD-10-PCS; 2022-01-03)
PROC: 02HV33Z Insertion of Infusion Device into Superior Vena Cava, Percutaneous Approach (ICD-10-PCS; principal; 2022-01-05)
PROC: 03HY32Z Insertion of Monitoring Device into Upper Artery, Percutaneous Approach (ICD-10-PCS; 2022-01-05)
PROC: 4A133B1 Monitoring of Arterial Pressure, Peripheral, Percutaneous Approach (ICD-10-PCS; 2022-01-05)
PROC: 4A133J1 Monitoring of Arterial Pulse, Peripheral, Percutaneous Approach (ICD-10-PCS; 2022-01-05)
PROC: 3E043XZ Introduction of Vasopressor into Central Vein, Percutaneous Approach (ICD-10-PCS; 2022-01-05)
PROC: 30243N1 Transfusion of Nonautologous Red Blood Cells into Central Vein, Percutaneous Approach (ICD-10-PCS; 2022-01-09)
PROC: 02HV33Z Insertion of Infusion Device into Superior Vena Cava, Percutaneous Approach (ICD-10-PCS; 2022-01-12)
PROC: 3E0436Z Introduction of Nutritional Substance into Central Vein, Percutaneous Approach (ICD-10-PCS; 2022-01-13)
PROC: 0DH63UZ Insertion of Feeding Device into Stomach, Percutaneous Approach (ICD-10-PCS; 2022-01-18)
PROC: 3E0G76Z Introduction of Nutritional Substance into Upper GI, Via Natural or Artificial Opening (ICD-10-PCS; 2022-01-19)
DX: E86.0 Dehydration (principal); A41.9 Sepsis, unspecified organism; L89.154 Pressure ulcer of sacral region, stage 4; R65.21 Severe sepsis with septic shock; G93.41 Metabolic encephalopathy; E43 Unspecified severe protein-calorie malnutrition; L89.324 Pressure ulcer of left buttock, stage 4; I82.413 Acute embolism and thrombosis of femoral vein, bilateral; R64 Cachexia; K56.7 Ileus, unspecified; D62 Acute posthemorrhagic anemia; I50.32 Chronic diastolic (congestive) heart failure; E87.2 Acidosis; E87.1 Hypo-osmolality and hyponatremia; I11.0 Hypertensive heart disease with heart failure; E11.622 Type 2 diabetes mellitus with other skin ulcer; E11.65 Type 2 diabetes mellitus with hyperglycemia; L98.499 Non-pressure chronic ulcer of skin of other sites with unspecified severity; J44.9 Chronic obstructive pulmonary disease, unspecified; Z66 Do not resuscitate; E88.09 Other disorders of plasma-protein metabolism, not elsewhere classified; D63.8 Anemia in other chronic diseases classified elsewhere; E83.51 Hypocalcemia; E83.39 Other disorders of phosphorus metabolism; R62.7 Adult failure to thrive; E78.5 Hyperlipidemia, unspecified; G47.33 Obstructive sleep apnea (adult) (pediatric); N40.0 Benign prostatic hyperplasia without lower urinary tract symptoms; E87.6 Hypokalemia; E86.1 Hypovolemia; G25.81 Restless legs syndrome; E87.70 Fluid overload, unspecified; E87.5 Hyperkalemia; E66.9 Obesity, unspecified; Z68.29 Body mass index [BMI] 29.0-29.9, adult; Z79.82 Long term (current) use of aspirin; Z79.899 Other long term (current) drug therapy; Z86.19 Personal history of other infectious and parasitic diseases; Z86.718 Personal history of other venous thrombosis and embolism; Z87.01 Personal history of pneumonia (recurrent); Z74.01 Bed confinement status; Z87.19 Personal history of other diseases of the digestive system; Z90.49 Acquired absence of other specified parts of digestive tract; Z71.3 Dietary counseling and surveillance; Z83.1 Family history of other infectious and parasitic diseases; Z80.8 Family history of malignant neoplasm of other organs or systems
CPT/HCPCS: 36410; 36415; 36573; 43246; 71045; 71046; 71275; 74018; 74176; 74177; 76705; 76937; 80048; 80053; 80076; 81001; 82040; 82272; 82306; 82330; 82533; 82607; 82728; 82746; 82805; 83010; 83036; 83540; 83550; 83605; 83735; 83930; 83935; 84100; 84132; 84145; 84295; 84300; 84443; 84478; 84484; 85025; 85027; 85045; 85260; 85384; 85610; 85652; 85730; 86140; 86850; 86900; 86901; 86920; 87040; 87324; 93005; 93308; 93970; 94640; 94760; 96361; 96372; 96374; 99285

== ENCOUNTER 2022-01-24 19:31 | Inpatient (IN) | payer OTHER ==
[2022-01-24] MEDS ORDERED: SODIUM CHLORIDE 0.9% 1,000 ML IV STA (19:35)
[2022-01-24 19:41] LABS: Glucose,Whole Blood 148 mg/dL (70-110)
--- NOTE | 2022-01-24 19:59 | ED ---
Altered Mental Status HPI - General Chief Complaint: Altered Mental Status Stated Complaint: AMS Time Seen by Provider: 01/24/22 19:34 Source: EMS, RN notes reviewed, old records reviewed Mode of arrival: EMS Limitations: altered mental status - History of Present Illness Initial Comments: 61 fevers chills nausea vomiting sweats no trauma reported. Patient does have chronic indwelling Smith he does have a sacral decubitus ulcer with a wound VAC. 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 He was last known supposedly well around 6 AM this morning per staff at the intermediate he was reported to be lethargic remainder the day he was brought in for evaluation. The patient reportedly is awake alert oriented 2-3 normally MD Complaint: altered mental status, decreased responsiveness - Related Data Home Medications Medication Instructions Recorded Confirmed Tamsulosin [Flomax] 0.4 mg PO DAILY 08/23/18 01/24/22 rOPINIRole HCL [Requip] 1 mg PO HS 08/23/18 01/24/22 Ascorbic Acid [Vitamin C] 500 mg PO DAILY 09/09/21 01/24/22 Cholecalciferol [Vitamin D3 (25 25 mcg PO DAILY 09/09/21 01/24/22 Mcg = 1000 Iu)] Multivitamins, Thera [Multivitamin 1 tab PO DAILY 09/09/21 01/24/22 (formulary)] Acetaminophen [Acetaminophen ER] 650 mg PO Q6H PRN 12/31/21 01/24/22 Albuterol Sulfate [Ventolin HFA] 2 puff INHALATION Q2H PRN 12/31/21 01/24/22 Famotidine [Pepcid] 20 mg PO BID@0800,1600 12/31/21 01/24/22 Promethazine HCl 12.5 mg PO Q12H PRN 12/31/21 01/24/22 Folic Acid 0.8 mg PO DAILY 01/24/22 01/24/22 Previous Rx's Medication Instructions Recorded Ipratropium-Albuterol Nebulize 3 ml INHALATION RT-QID ml 07/16/21 [Duoneb 0.5 mg-3 mg/3 ml Soln] Furosemide [Lasix] 40 mg PO DAILY #1 tablet 01/21/22 Gabapentin [Neurontin] 100 mg PO HS #3 cap 01/21/22 Metoprolol Tartrate [Lopressor] 12.5 mg PO TID #1 tab 01/21/22 Midodrine [ProAmatine] 5 mg PO AC-TID tab 01/21/22 Allergies Allergy/AdvReac Type Severity Reaction Status Date / Time No Known Allergies Allergy Verified 01/24/22 20:27 Review of Systems ROS Statement: Those systems with pertinent positive or pertinent negative responses have been documented in the HPI. ROS Other: All systems not noted in ROS Statement are negative. Limitations: ROS unobtainable due to patients medical condition Past Medical History Past Medical History: COPD, Diabetes Mellitus, Deep Vein Thrombosis (DVT), Hyperlipidemia, Hypertension, Pneumonia, Prostate Disorder, Sleep Apnea/CPAP/BIPAP Additional Past Medical History / Comment(s): sleep apnea uses cpap machine, herniated disc-has had injections, past stress test pt stated was wnl History of Any Multi-Drug Resistant Organisms: None Reported Past Surgical History: Hernia Repair Additional Past Surgical History / Comment(s): hydrocelectomy, vasectomy, colonoscopy/polypectomy-benign. umbilical hernia repair, injections for herniated disc. Past Anesthesia/Blood Transfusion Reactions: No Reported Reaction Additional Past Anesthesia/Blood Transfusion Reaction / Comment(s): clausterphobia. pt stated has never had a blood transfusion Past Psychological History: No Psychological Hx Reported Smoking Status: Never smoker Past Alcohol Use History: Occasional Additional Past Alcohol Use History / Comment(s): approx 2008 briefly smoked the occ cigar. pt has a rare drink Past Drug Use History: Marijuana Additional Drug Use History / Comment(s): approx every 3 months - Past Family History Mother Family Medical History: Cancer, Eye Disorder Additional Family Medical History / Comment(s): skin cancer, macular degeneration Father Family Medical History: Coronary Artery Disease (CAD), Dementia Additional Family Medical History / Comment(s): cabg, stents, uti/sepsis General Exam - General Exam Comments Initial Comments: This is a well-developed well-nourished lethargic male he does attend respond to stimulation Limitations: altered mental status General appearance: lethargic Head exam: Present: atraumatic, normocephalic, normal inspection Eye exam: Present: normal appearance, PERRL, EOMI. Absent: scleral icterus, conjunctival injection, periorbital swelling ENT exam: Present: mucous membranes dry Neck exam: Present: normal inspection. Absent: tenderness, meningismus, lymphadenopathy Respiratory exam: Present: decreased breath sounds. Absent: respiratory distress, wheezes, rales, rhonchi, stridor Cardiovascular Exam: Present: regular rate, normal rhythm, normal heart sounds. Absent: systolic murmur, diastolic murmur, rubs, gallop, clicks GI/Abdominal exam: Present: soft, normal bowel sounds. Absent: distended, tenderness, guarding, rebound, rigid exam: Present: other (Smith catheter in place urine does appear to be dark vilma colored) Extremities exam: Present: normal inspection, full ROM, normal capillary refill. Absent: tenderness, pedal edema, joint swelling, calf tenderness Back exam: Present: normal inspection Neurological exam: Present: alert, altered, CN II-XII intact Psychiatric exam: Present: flat affect Skin exam: Present: warm, dry, normal color. Absent: intact, rash Course Vital Signs 01/24/22 01/24/22 01/24/22 19:31 20:37 22:10 Temperature 97.5 F L Pulse Rate 94 90 103 H Respiratory 18 17 19 Rate Blood Pressure 135/84 127/85 111/85 O2 Sat by Pulse 95 99 97 Oximetry - Reevaluation(s) Reevaluation #1: 01/24/22 21:45 Reevaluation the patient with patient's present he is more alert per the patient's . Medical Decision Making - Medical Decision Making Patient is more awake and alert I did discuss findings with the patient and family member present. Also Dr. Nelson. Patient does have evidence of elevated ammonia as well as evidence of CHF. Patient will be admitted and treated for the same. Neurology will be also consulted. - Lab Data Result diagrams: 01/24/22 19:52 01/24/22 19:52 Lab Results 01/24/22 01/24/22 01/24/22 Range/Units 19:40 19:50 19:52 WBC 5.9 (3.8-10.6) k/uL RBC 3.78 L (4.30-5.90) m/uL Hgb 10.8 L D (13.0-17.5) gm/dL Hct 36.3 L (39.0-53.0) % MCV 96.2 D (80.0-100.0) fL MCH 28.6 (25.0-35.0) pg MCHC 29.7 L (31.0-37.0) g/dL RDW 19.2 H (11.5-15.5) % Plt Count 443 (150-450) k/uL MPV 7.3 Neutrophils % 80 % Lymphocytes % 10 % Monocytes % 6 % Eosinophils % 0 % Basophils % 1 % Neutrophils # 4.8 (1.3-7.7) k/uL Lymphocytes # 0.6 L (1.0-4.8) k/uL Monocytes # 0.4 (0-1.0) k/uL Eosinophils # 0.0 (0-0.7) k/uL Basophils # 0.1 (0-0.2) k/uL Hypochromasia Marked Anisocytosis Slight Macrocytosis Slight PT 9.5 (9.0-12.0) sec INR 0.8 (<1.2) APTT 18.9 L (22.0-30.0) sec Sodium (137-145) mmol/L Potassium (3.5-5.1) mmol/L Chloride (98-107) mmol/L Carbon Dioxide (22-30) mmol/L Anion Gap mmol/L BUN (9-20) mg/dL Creatinine (0.66-1.25) mg/dL Est GFR (CKD-EPI)AfAm (>60 ml/min/1.73 sqM) Est GFR (CKD-EPI)NonAf (>60 ml/min/1.73 sqM) Glucose (74-99) mg/dL POC Glucose (mg/dL) 148 H (70-110) mg/dL POC Glu Project Manager/Team Coach ID Lisseth, Rubin Plasma Lactic Acid Hayden (0.7-2.0) mmol/L Calcium (8.4-10.2) mg/dL Magnesium (1.6-2.3) mg/dL Total Bilirubin (0.2-1.3) mg/dL AST (17-59) U/L ALT (4-49) U/L Alkaline Phosphatase (38-126) U/L Ammonia (<30) umol/L Troponin I (0.000-0.034) ng/mL NT-Pro-B Natriuret Pep pg/mL Total Protein (6.3-8.2) g/dL Albumin (3.5-5.0) g/dL Urine Color Urine Appearance (Clear) Urine pH (5.0-8.0) Ur Specific Scotts (1.001-1.035) Urine Protein (Negative) Urine Glucose (UA) (Negative) Urine Ketones (Negative) Urine Blood (Negative) Urine Nitrite (Negative) Urine Bilirubin (Negative) Urine Urobilinogen (<2.0) mg/dL Ur Leukocyte Esterase (Negative) Urine RBC (0-5) /hpf Urine WBC (0-5) /hpf Urine Bacteria (None) /hpf Hyaline Casts (0-2) /lpf Urine Mucus (None) /hpf Urine Opiates Screen (NotDetected) Ur Oxycodone Screen (NotDetected) Urine Methadone Screen (NotDetected) Ur Propoxyphene Screen (NotDetected) Ur Barbiturates Screen (NotDetected) U Tricyclic Antidepress (NotDetected) Ur Phencyclidine Scrn (NotDetected) Ur Amphetamines Screen (NotDetected) U Methamphetamines Scrn (NotDetected) U Benzodiazepines Scrn (NotDetected) Urine Cocaine Screen (NotDetected) U Marijuana (THC) Screen (NotDetected) 01/24/22 01/24/22 01/24/22 Range/Units 19:52 19:52 19:52 WBC (3.8-10.6) k/uL RBC (4.30-5.90) m/uL Hgb (13.0-17.5) gm/dL Hct (39.0-53.0) % MCV (80.0-100.0) fL MCH (25.0-35.0) pg MCHC (31.0-37.0) g/dL RDW (11.5-15.5) % Plt Count (150-450) k/uL MPV Neutrophils % % Lymphocytes % % Monocytes % % Eosinophils % % Basophils % % Neutrophils # (1.3-7.7) k/uL Lymphocytes # (1.0-4.8) k/uL Monocytes # (0-1.0) k/uL Eosinophils # (0-0.7) k/uL Basophils # (0-0.2) k/uL Hypochromasia Anisocytosis Macrocytosis PT (9.0-12.0) sec INR (<1.2) APTT (22.0-30.0) sec Sodium 134 L (137-145) mmol/L Potassium 3.9 (3.5-5.1) mmol/L Chloride 93 L (98-107) mmol/L Carbon Dioxide 39 H (22-30) mmol/L Anion Gap 2 mmol/L BUN 15 (9-20) mg/dL Creatinine 0.82 (0.66-1.25) mg/dL Est GFR (CKD-EPI)AfAm >90 (>60 ml/min/1.73 sqM) Est GFR (CKD-EPI)NonAf >90 (>60 ml/min/1.73 sqM) Glucose 152 H (74-99) mg/dL POC Glucose (mg/dL) (70-110) mg/dL POC Glu Project Manager/Team Coach ID Plasma Lactic Acid Hayden 0.9 (0.7-2.0) mmol/L Calcium 8.4 (8.4-10.2) mg/dL Magnesium 1.9 (1.6-2.3) mg/dL Total Bilirubin 0.2 (0.2-1.3) mg/dL AST 73 H (17-59) U/L ALT 50 H (4-49) U/L Alkaline Phosphatase 229 H (38-126) U/L Ammonia 40 H (<30) umol/L Troponin I (0.000-0.034) ng/mL NT-Pro-B Natriuret Pep pg/mL Total Protein 5.6 L (6.3-8.2) g/dL Albumin 2.4 L (3.5-5.0) g/dL Urine Color Yellow Urine Appearance Cloudy (Clear) Urine pH 5.5 (5.0-8.0) Ur Specific Scotts 1.014 (1.001-1.035) Urine Protein 1+ H (Negative) Urine Glucose (UA) Negative (Negative) Urine Ketones Negative (Negative) Urine Blood Negative (Negative) Urine Nitrite Negative (Negative) Urine Bilirubin Negative (Negative) Urine Urobilinogen <2.0 (<2.0) mg/dL Ur Leukocyte Esterase Negative (Negative) Urine RBC <1 (0-5) /hpf Urine WBC 7 H (0-5) /hpf Urine Bacteria Rare H (None) /hpf Hyaline Casts 1 (0-2) /lpf Urine Mucus Rare H (None) /hpf Urine Opiates Screen Not Detected (NotDetected) Ur Oxycodone Screen Not Detected (NotDetected) Urine Methadone Screen Not Detected (NotDetected) Ur Propoxyphene Screen Not Detected (NotDetected) Ur Barbiturates Screen Not Detected (NotDetected) U Tricyclic Antidepress Not Detected (NotDetected) Ur Phencyclidine Scrn Not Detected (NotDetected) Ur Amphetamines Screen Not Detected (NotDetected) U Methamphetamines Scrn Not Detected (NotDetected) U Benzodiazepines Scrn Not Detected (NotDetected) Urine Cocaine Screen Not Detected (NotDetected) U Marijuana (THC) Screen Not Detected (NotDetected) 01/24/22 01/24/22 Range/Units 19:52 19:52 WBC (3.8-10.6) k/uL RBC (4.30-5.90) m/uL Hgb (13.0-17.5) gm/dL Hct (39.0-53.0) % MCV (80.0-100.0) fL MCH (25.0-35.0) pg MCHC (31.0-37.0) g/dL RDW (11.5-15.5) % Plt Count (150-450) k/uL MPV Neutrophils % % Lymphocytes % % Monocytes % % Eosinophils % % Basophils % % Neutrophils # (1.3-7.7) k/uL Lymphocytes # (1.0-4.8) k/uL Monocytes # (0-1.0) k/uL Eosinophils # (0-0.7) k/uL Basophils # (0-0.2) k/uL Hypochromasia Anisocytosis Macrocytosis PT (9.0-12.0) sec INR (<1.2) APTT (22.0-30.0) sec Sodium (137-145) mmol/L Potassium (3.5-5.1) mmol/L Chloride (98-107) mmol/L Carbon Dioxide (22-30) mmol/L Anion Gap mmol/L BUN (9-20) mg/dL Creatinine (0.66-1.25) mg/dL Est GFR (CKD-EPI)AfAm (>60 ml/min/1.73 sqM) Est GFR (CKD-EPI)NonAf (>60 ml/min/1.73 sqM) Glucose (74-99) mg/dL POC Glucose (mg/dL) (70-110) mg/dL POC Glu Project Manager/Team Coach ID Plasma Lactic Acid Hayden (0.7-2.0) mmol/L Calcium (8.4-10.2) mg/dL Magnesium (1.6-2.3) mg/dL Total Bilirubin (0.2-1.3) mg/dL AST (17-59) U/L ALT (4-49) U/L Alkaline Phosphatase (38-126) U/L Ammonia (<30) umol/L Troponin I <0.012 (0.000-0.034) ng/mL NT-Pro-B Natriuret Pep 8640 pg/mL Total Protein (6.3-8.2) g/dL Albumin (3.5-5.0) g/dL Urine Color Urine Appearance (Clear) Urine pH (5.0-8.0) Ur Specific Scotts (1.001-1.035) Urine Protein (Negative) Urine Glucose (UA) (Negative) Urine Ketones (Negative) Urine Blood (Negative) Urine Nitrite (Negative) Urine Bilirubin (Negative) Urine Urobilinogen (<2.0) mg/dL Ur Leukocyte Esterase (Negative) Urine RBC (0-5) /hpf Urine WBC (0-5) /hpf Urine Bacteria (None) /hpf Hyaline Casts (0-2) /lpf Urine Mucus (None) /hpf Urine Opiates Screen (NotDetected) Ur Oxycodone Screen (NotDetected) Urine Methadone Screen (NotDetected) Ur Propoxyphene Screen (NotDetected) Ur Barbiturates Screen (NotDetected) U Tricyclic Antidepress (NotDetected) Ur Phencyclidine Scrn (NotDetected) Ur Amphetamines Screen (NotDetected) U Methamphetamines Scrn (NotDetected) U Benzodiazepines Scrn (NotDetected) Urine Cocaine Screen (NotDetected) U Marijuana (THC) Screen (NotDetected) - EKG Data -: EKG Interpreted by Me EKG shows normal: sinus rhythm EKG Comments: Sinus rhythm a 94. Interval 187 QRS duration 162 QT/QTC 442/494) block pattern - Radiology Data Radiology results: report reviewed (Imaging reviewed as well as reports CT shows no acute findings x-ray shows evidence of increased pulmonary vascular congestion with small pleural effusion please see the complete report), image reviewed Critical Care Time Critical Care Time: Yes Total Critical Care Time: 31 Critical Care Time: This time includes initial presentation with history physical labs x-rays discus sed with paramedics upon arrival discuss with the patient's family multiple reevaluation of the patient review of old charting documentation the above as well as admission orders Disposition Clinical Impression: Altered mental status, Hepatic encephalopathy, Congestive heart failure Disposition: ADMITTED IP TO THIS [facility] Condition: Fair Referrals: Ian Reddy DO [Primary Care Provider] - 1-2 days Decision Date: 01/24/22 Decision Time: 22:30
[2022-01-24 20:18] LABS: ALT 50 U/L (4-49); AST 73 U/L (17-59); African American GFR (CKD) >90 (>60 ml/min/1.73 sqM); Albumin 2.4 g/dL (3.5-5.0); Alkaline Phosphatase 229 U/L (38-126); Anion Gap 2 mmol/L; Blood Urea Nitrogen 15 mg/dL (9-20); Calcium 8.4 mg/dL (8.4-10.2); Carbon Dioxide 39 mmol/L (22-30); Chloride 93 mmol/L (98-107); Glucose 152 mg/dL (74-99); Magnesium 1.9 mg/dL (1.6-2.3); Non-African American GFR(CKD) >90 (>60 ml/min/1.73 sqM); Potassium 3.9 mmol/L (3.5-5.1); Sodium 134 mmol/L (137-145); Total Bilirubin 0.2 mg/dL (0.2-1.3); Total Protein 5.6 g/dL (6.3-8.2)
[2022-01-24 20:20] LABS: Lactic Acid, Venous 0.9 mmol/L (0.7-2.0)
[2022-01-24 20:27] LABS: Appearance,Urine Cloudy (Clear); Bacteria,Urine Rare /hpf; Bilirubin,Urine Negative (Negative); Blood,Urine Negative (Negative); Color,Urine Yellow; Glucose,Urine (UA) Negative (Negative); Hyaline Casts,Urine 1 /lpf (0-2); Ketones,Urine Negative (Negative); Leukocyte Esterase,Urine Negative (Negative); Mucus,Urine Rare /hpf; Nitrite,Urine Negative (Negative); PH, Urine 5.5 (5.0-8.0); Protein,Urine 1+ (Negative); RBC,Urine <1 /hpf (0-5); Specific Gravity,Urine 1.014 (1.001-1.035); Urobilinogen,Urine <2.0 mg/dL (<2.0); WBC,Urine 7 /hpf (0-5)
--- NOTE | 2022-01-24 20:28 | XR ---
EXAMINATION TYPE: XR chest 1V portable DATE OF EXAM: 01/24/2022 COMPARISON: 01/13/2022 HISTORY: Short of breath TECHNIQUE: FINDINGS: There is pulmonary interstitial and airspace edema. There is left-sided central venous cath eter with tip in the superior vena cava. There is some blunting of the costophrenic angles. Heart is enlarged. IMPRESSION: Congestive heart failure with pleural effusions. Pulmonary congestion and fluid increased compared to last exam.
[2022-01-24 20:31] LABS: INR 0.8 (<1.2); Prothrombin Time 9.5 sec (9.0-12.0)
[2022-01-24 20:33] LABS: Partial Thromboplastin Time 18.9 sec (22.0-30.0)
[2022-01-24 20:34] LABS: Amphetamine Screen,Urine Not Detected (NotDetected); Barbiturate Screen,Urine Not Detected (NotDetected); Benzodiazepines Screen,Urine Not Detected (NotDetected); Cocaine Screen,Urine Not Detected (NotDetected); Methadone Screen, Urine Not Detected (NotDetected); Opiate Screen,Urine Not Detected (NotDetected); Oxycodone Screen, Urine Not Detected (NotDetected); Phencyclidine Screen,Urine Not Detected (NotDetected); Tricyclic Antidepressant,Urine Not Detected (NotDetected); Urn Cannabinoid Scrn Not Detected (NotDetected)
[2022-01-24 20:38] LABS: Anisocytosis Slight; Basophils # (A) 0.1 k/uL (0-0.2); Basophils % (A) 1 %; Eosinophils % (A) 0 %; HCT 36.3 % (39.0-53.0); Hypochromasia Marked; Lymphocytes # (A) 0.6 k/uL (1.0-4.8); Lymphocytes % (A) 10 %; MCH 28.6 pg (25.0-35.0); MCHC 29.7 g/dL (31.0-37.0); Macrocytosis Slight; Mean Platelet Volume 7.3; Monocytes # (A) 0.4 k/uL (0-1.0); Monocytes % (A) 6 %; Neutrophils # (A) 4.8 k/uL (1.3-7.7); Neutrophils % (A) 80 %; Platelet Count 443 k/uL (150-450); RBC 3.78 m/uL (4.30-5.90); RDW 19.2 % (11.5-15.5); WBC 5.9 k/uL (3.8-10.6)
[2022-01-24 20:47] LABS: HGB 10.8 gm/dL (13.0-17.5)
[2022-01-24 20:48] LABS: MCV 96.2 fL (80.0-100.0)
--- NOTE | 2022-01-24 20:49 | CT ---
EXAMINATION TYPE: CT brain wo con DATE OF EXAM: 01/24/2022 COMPARISON: 09/16/2021 HISTORY: AMS CT DLP: 1125.4 mGycm Automated exposure control for dose reduction was used. Ventricles have fairly normal size. There is no mass effect or midline shift. No sign of intracranial hemorrhage. The calvarium is intact. No evidence of cerebral edema. IMPRESSION: Negative unenhanced head CT scan. No change. There is evidence for bilateral chronic mastoiditis similar to old exam.
[2022-01-24] MEDS ORDERED: FUROSEMIDE 10 MG/ML 4 ML VIAL IV STA (22:59)
[2022-01-24] MEDS ORDERED: LACTULOSE 20 GM/30 ML CUP PO ONE (23:02)
[2022-01-24] MEDS ORDERED: ACETAMINOPHEN TAB 325 MG TAB PO PRN (23:03)
[2022-01-24] MEDS: FUROSEMIDE 10 MG/ML 4 ML VIAL IV SCH (23:43)
[2022-01-25] MEDS ORDERED: ALBUTEROL NEBULIZED 2.5 MG/3 ML INHALATION STA (05:42)
[2022-01-25] MEDS ORDERED: FUROSEMIDE 10 MG/ML 10 ML VIAL IV STA (05:43)
[2022-01-25] MEDS ORDERED: IPRATROPIUM-ALBUTEROL 3 ML NEB INHALATION STA (06:05)
[2022-01-25] MEDS ORDERED: methylPREDNISolone SOD SUCCI 125 MG/2 ML VIAL IV STA (06:17)
[2022-01-25] MEDS ORDERED: NALOXONE 0.4 MG/ML 1 ML VIAL IV PRN (06:19)
[2022-01-25 06:27] LABS: Glucose,Whole Blood 145 mg/dL (70-110)
--- NOTE | 2022-01-25 07:20 | XR ---
EXAMINATION TYPE: XR chest 1V portable DATE OF EXAM: 01/25/2022 6:03 AM COMPARISON: Chest radiographs from 01/24/2022 TECHNIQUE: XR chest 1V portable Frontal view of the chest. CLINICAL INDICATION:Male, 61 years old with history of sob; FINDINGS: Lungs/Pleura: Low lung volumes. No pneumothorax. Right basilar atelectasis. Increased small left pleu ral effusion. Pulmonary vascularity: Mild pulmonary vascular congestion. Heart/mediastinum: Cardiomediastinal silhouette is enlarged and stable. Musculoskeletal: No acute osseous pathology. Other findings: None Lines/Tubes: Left-sided PICC with distal tip at the mid superior vena cava. IMPRESSION: Cardiomegaly with pulmonary vascular congestion and increased small left pleural effusion consistent with acute exacerbation of CHF.
[2022-01-25] MEDS: IPRATROPIUM-ALBUTEROL 3 ML NEB INHALATION SCH ×4 (07:43→19:29)
[2022-01-25 08:30] LABS: ALT 60 U/L (4-49); AST 106 U/L (17-59); African American GFR (CKD) >90 (>60 ml/min/1.73 sqM); Albumin 2.5 g/dL (3.5-5.0); Alkaline Phosphatase 250 U/L (38-126); Anion Gap 4 mmol/L; Blood Urea Nitrogen 15 mg/dL (9-20); Calcium 8.1 mg/dL (8.4-10.2); Carbon Dioxide 36 mmol/L (22-30); Chloride 98 mmol/L (98-107); Glucose 148 mg/dL (74-99); Non-African American GFR(CKD) >90 (>60 ml/min/1.73 sqM); Phosphorus 5.7 mg/dL (2.5-4.5); Potassium 3.9 mmol/L (3.5-5.1); Sodium 138 mmol/L (137-145); Total Bilirubin 0.4 mg/dL (0.2-1.3); Total Protein 5.8 g/dL (6.3-8.2)
[2022-01-25] MEDS: MIDODRINE 5 MG TAB PO SCH ×5 (08:39→16:54)
[2022-01-25] MEDS: FUROSEMIDE 10 MG/ML 4 ML VIAL IV SCH ×3 (08:45→23:52)
[2022-01-25] MEDS: FAMOTIDINE 20 MG TAB PO SCH ×3 (08:46→16:54)
[2022-01-25 08:47] LABS: Anisocytosis Slight; Basophils % (A) 1 %; Eosinophils % (A) 1 %; HCT 30.2 % (39.0-53.0); Hypochromasia Marked; Lymphocytes # (A) 0.5 k/uL (1.0-4.8); Lymphocytes % (A) 7 %; MCH 30.2 pg (25.0-35.0); MCHC 30.7 g/dL (31.0-37.0); MCV 98.4 fL (80.0-100.0); Macrocytosis Slight; Mean Platelet Volume 7.4; Monocytes # (A) 0.2 k/uL (0-1.0); Monocytes % (A) 4 %; Neutrophils # (A) 5.4 k/uL (1.3-7.7); Neutrophils % (A) 86 %; Platelet Count 535 k/uL (150-450); RBC 3.06 m/uL (4.30-5.90); RDW 19.3 % (11.5-15.5); WBC 6.2 k/uL (3.8-10.6)
[2022-01-25 08:49] LABS: HGB 9.2 gm/dL (13.0-17.5)
[2022-01-25] MEDS ORDERED: PROMETHAZINE 25 MG TAB PO PRN (09:00)
[2022-01-25] MEDS: CHOLECALCIFEROL 25 MCG (1000 IU) TABLET PO SCH (09:32)
[2022-01-25] MEDS: TAMSULOSIN 0.4 MG CAP.ER.24H PO SCH (09:32)
[2022-01-25] MEDS: FOLIC ACID 1 MG TAB PO SCH (09:33)
[2022-01-25] MEDS: ASCORBIC ACID 500 MG TAB PO SCH (09:33)
[2022-01-25] MEDS: MULTIVITAMINS, THERA 1 EACH TAB PO SCH (09:33)
[2022-01-25] MEDS: METOPROLOL TARTRATE 12.5 MG TAB PO SCH ×3 (09:33→21:03)
--- NOTE | 2022-01-25 09:58 | P.CRDCN ---
History of Present Illness Consult date: 01/25/22 Consult reason: congestive heart failure History of present illness: The patient is a 61-year-old male with past medical history of COPD, diabetes, hypertension, dyslipidemia, and obstructive sleep apnea, who presented to the hospital with new onset of mental status changes, which was reported per nursing staff at his long-term care facility. The patient was recently admitted to the hospital with similar mental status changes as well as hypotension. DIAGNOSTICS: EKG on arrival shows sinus tachycardia Telemetry monitoring shows sinus tachycardia in the low 100s Chest x-ray shows cardiomegaly with pulmonary vascular congestion and small left pleural effusion CT of the brain negative for acute process Echocardiogram performed on 01/03/2022 shows LV function of 50-55% without significant valvular abnormalities Lab data: WBC 6.2, hemoglobin 9.2, hematocrit 30.2, platelets 535, sodium 138, potassium 3., BUN 15, creatinine 0.84, phosphorus 5.7, magnesium 2.0, AST 106, ALT 60, ALP 250, troponin negative 3, BNP 8600, positive for urinary tract infection, ammonia level 40 PAST MEDICAL HISTORY: Obesity, COPD, dyslipidemia, hypertension, diabetes, COPD, long-haul Covid, decubitus ulcers, DVT REVIEW OF SYSTEMS: Limited due to mental status. Patient denies any current chest pain or discomfort. PHYSICAL EXAMINATION: This is a 61-year-old male in no apparent distress at the time of my examination. Currently resting on BiPAP HEENT: Head is atraumatic, normocephalic. Pupils are equal, round. Sclerae anicteric. Conjunctivae are clear. Mucous membranes of the mouth are moist. Neck is supple. There is no jugular venous distention. No carotid bruit is heard. CHEST EXAMINATION: Lungs are rhonchorous to auscultation. No chest wall tenderness is noted on palpation or with deep breathing. HEART EXAMINATION: Heart regular rate and rhythm. S1, S2 heard. No murmurs, gallops or rub. ABDOMEN: Soft, nontender. Bowel sounds are heard. No organomegaly noted. EXTREMITIES: 2+ peripheral pulses. +2 peripheral edema and no calf tenderness noted. Positive for foot drop. NEUROLOGIC EXAMINATION: Patient is awake, alert and oriented x1. FINAL ASSESSMENT AND PLAN: Acute mental status changes Elevated liver enzymes Congestive heart failure, likely diastolic as recent echocardiogram shows normal ejection fraction Urinary tract infection History of hypertension History of dyslipidemia History of obstructive sleep apnea, currently on BiPAP History of DVT, anticoagulation per primary team PLAN: Agree with continuing IV Lasix No need for repeat echocardiogram at this time Further recommendations to be based upon clinical course I am dictating on behalf of Dr Fredo Magana's history/physical and assessment/plan. Past Medical History Past Medical History: COPD, Diabetes Mellitus, Deep Vein Thrombosis (DVT), Hyperlipidemia, Hypertension, Pneumonia, Prostate Disorder, Sleep Apnea/CPAP/B IPAP Additional Past Medical History / Comment(s): sleep apnea uses cpap machine, herniated disc-has had injections, past stress test pt stated was wnl History of Any Multi-Drug Resistant Organisms: None Reported Past Surgical History: Hernia Repair Additional Past Surgical History / Comment(s): hydrocelectomy, vasectomy, colonoscopy/polypectomy-benign. umbilical hernia repair, injections for jayjay iated disc. Past Anesthesia/Blood Transfusion Reactions: No Reported Reaction Additional Past Anesthesia/Blood Transfusion Reaction / Comment(s): brian sterphobia. pt stated has never had a blood transfusion Past Psychological History: No Psychological Hx Reported Smoking Status: Never smoker Past Alcohol Use History: Occasional Additional Past Alcohol Use History / Comment(s): approx 2008 briefly smoked the occ cigar. pt has a rare drink Past Drug Use History: Marijuana Additional Drug Use History / Comment(s): approx every 3 months - Past Family History Mother Family Medical History: Cancer, Eye Disorder Additional Family Medical History / Comment(s): skin cancer, macular degeneration Father Family Medical History: Coronary Artery Disease (CAD), Dementia Additional Family Medical History / Comment(s): cabg, stents, uti/sepsis Medications and Allergies Home Medications Medication Instructions Recorded Confirmed Type Tamsulosin [Flomax] 0.4 mg PO DAILY 08/23/18 01/24/22 History rOPINIRole HCL [Requip] 1 mg PO HS 08/23/18 01/24/22 History Ipratropium-Albuterol Nebulize 3 ml INHALATION RT-QID ml 07/16/21 01/24/22 Rx [Duoneb 0.5 mg-3 mg/3 ml Soln] Ascorbic Acid [Vitamin C] 500 mg PO DAILY 09/09/21 01/24/22 History Cholecalciferol [Vitamin D3 (25 25 mcg PO DAILY 09/09/21 01/24/22 History Mcg = 1000 Iu)] Multivitamins, Thera [Multivitamin 1 tab PO DAILY 09/09/21 01/24/22 History (formulary)] Acetaminophen [Acetaminophen ER] 650 mg PO Q6H PRN 12/31/21 01/24/22 History Albuterol Sulfate [Ventolin HFA] 2 puff INHALATION Q2H PRN 12/31/21 01/24/22 History Famotidine [Pepcid] 20 mg PO BID@0800,1600 12/31/21 01/24/22 History Promethazine HCl 12.5 mg PO Q12H PRN 12/31/21 01/24/22 History Furosemide [Lasix] 40 mg PO DAILY #1 tablet 01/21/22 01/24/22 Rx Gabapentin [Neurontin] 100 mg PO HS #3 cap 01/21/22 01/24/22 Rx Metoprolol Tartrate [Lopressor] 12.5 mg PO TID #1 tab 01/21/22 01/24/22 Rx Midodrine [ProAmatine] 5 mg PO AC-TID tab 01/21/22 01/24/22 Rx Folic Acid 0.8 mg PO DAILY 01/24/22 01/24/22 History Allergies Allergy/AdvReac Type Severity Reaction Status Date / Time No Known Allergies Allergy Verified 01/24/22 20:27 Physical Exam Vitals: Vital Signs Temp Pulse Resp BP Pulse Ox FiO2 01/25/22 09:39 111 H 22 108/77 98 01/25/22 08:30 101 H 22 115/84 100 01/25/22 07:46 103 H 65 01/25/22 07:13 102 H 111/76 93 L 01/25/22 06:32 70 01/25/22 06:21 98 25 H 102/68 91 L 01/25/22 06:00 92 01/25/22 05:53 100 01/25/22 05:45 90 01/25/22 05:34 93 24 115/73 80 L 01/25/22 05:30 100 01/25/22 03:26 101 H 106/70 98 01/25/22 02:24 101 H 16 96 01/24/22 23:47 101 H 21 120/62 98 01/24/22 22:10 103 H 19 111/85 97 01/24/22 20:37 90 17 127/85 99 01/24/22 19:31 97.5 F L 94 18 135/84 95 Intake and Output 01/24/22 01/25/22 01/25/22 22:59 06:59 14:59 Other: Weight 95.254 kg Results 01/25/22 07:57 01/25/22 07:57 Cardiac Enzymes 01/24/22 01/24/22 01/25/22 Range/Units 19:52 19:52 00:44 AST 73 H (17-59) U/L Troponin I <0.012 <0.012 (0.000-0.034) ng/mL 01/25/22 01/25/22 Range/Units 03:45 07:57 AST 106 H (17-59) U/L Troponin I <0.012 (0.000-0.034) ng/mL Coagulation 01/24/22 Range/Units 19:50 PT 9.5 (9.0-12.0) sec APTT 18.9 L (22.0-30.0) sec CBC 01/24/22 01/25/22 Range/Units 19:52 07:57 WBC 5.9 6.2 (3.8-10.6) k/uL RBC 3.78 L 3.06 L (4.30-5.90) m/uL Hgb 10.8 L D 9.2 L D (13.0-17.5) gm/dL Hct 36.3 L 30.2 L (39.0-53.0) % Plt Count 443 535 H (150-450) k/uL Comprehensive Metabolic Panel 01/24/22 01/25/22 Range/Units 19:52 07:57 Sodium 134 L 138 (137-145) mmol/L Potassium 3.9 3.9 (3.5-5.1) mmol/L Chloride 93 L 98 (98-107) mmol/L Carbon Dioxide 39 H 36 H (22-30) mmol/L BUN 15 15 (9-20) mg/dL Creatinine 0.82 0.84 (0.66-1.25) mg/dL Glucose 152 H 148 H (74-99) mg/dL Calcium 8.4 8.1 L (8.4-10.2) mg/dL AST 73 H 106 H (17-59) U/L ALT 50 H 60 H (4-49) U/L Alkaline Phosphatase 229 H 250 H (38-126) U/L Total Protein 5.6 L 5.8 L (6.3-8.2) g/dL Albumin 2.4 L 2.5 L (3.5-5.0) g/dL Current Medications Generic Name Dose Route Start Last Admin Trade Name Freq PRN Reason Stop Dose Admin Acetaminophen 650 mg 01/24/22 23:03 Acetaminophen Tab 325 Mg Tab PO Q6H PRN Pain Albuterol/Ipratropium 3 ml 01/25/22 08:00 01/25/22 07:43 Ipratropium-Albuterol 3 Ml Neb INHALATION 3 ml RT-QID ERINN Administration Ascorbic Acid 500 mg 01/25/22 09:00 01/25/22 09:33 Ascorbic Acid 500 Mg Tab PO 500 mg DAILY ERINN Administration Cholecalciferol 25 mcg 01/25/22 09:00 01/25/22 09:32 Cholecalciferol 25 Mcg (1000 Iu) Tablet PO 25 mcg DAILY ERINN Administration Famotidine 20 mg 01/25/22 08:00 01/25/22 09:33 Famotidine 20 Mg Tab PO 20 mg BID@0800,1600 ERINN Administration Folic Acid 1 mg 01/25/22 09:00 01/25/22 09:33 Folic Acid 1 Mg Tab PO 1 mg DAILY ERINN Administration Furosemide 40 mg 01/24/22 23:00 01/25/22 08:45 Furosemide 10 Mg/Ml 4 Ml Vial IV Not Given Q8H ERINN Gabapentin 100 mg 01/25/22 21:00 Gabapentin 100 Mg Cap PO HS [facility] Methylprednisolone Sodium Succinate 60 mg 01/25/22 12:00 Methylprednisolone Sod Succi 125 Mg/2 Ml Vial IV Q6HR ERINN Metoprolol Tartrate 12.5 mg 01/25/22 09:00 01/25/22 09:33 Metoprolol Tartrate 12.5 Mg Tab PO 12.5 mg TID ERINN Administration Midodrine 5 mg 01/25/22 07:30 01/25/22 09:36 Midodrine 5 Mg Tab PO 5 mg AC-TID ERINN Administration Multivitamins 1 each 01/25/22 09:00 01/25/22 09:33 Multivitamins, Thera 1 Each Tab PO 1 each DAILY ERINN Administration Naloxone HCl 0.2 mg 01/25/22 06:19 Naloxone 0.4 Mg/Ml 1 Ml Vial IV Q2M PRN Opioid Reversal Promethazine HCl 12.5 mg 01/25/22 09:00 Promethazine 25 Mg Tab PO Q12H PRN Nausea Ropinirole HCl 1 mg 01/25/22 21:00 Ropinirole Hcl 1 Mg Tab PO HS ERINN Tamsulosin HCl 0.4 mg 01/25/22 09:00 01/25/22 09:32 Tamsulosin 0.4 Mg Cap.Er.24h PO 0.4 mg DAILY ERINN Administration Intake and Output 01/24/22 01/25/22 01/25/22 22:59 06:59 14:59 Other: Weight 95.254 kg 01/25/22 07:57 01/25/22 07:57
[2022-01-25 10:17] LABS: Basophilic Stippling Present
--- NOTE | 2022-01-25 10:27 | P.CNNES ---
History of Present Illness Consult date: 01/25/22 Requesting physician: Kevin Lockhart Reason for Consult: altered mental status History of Present Illness: This is a 61-year-old gentleman with history of hypertension, History of COVID- 19, hyperlipidemia, type 2 diabetes, DVT, sleep apnea, COPD, sacral decubitus ulcer with chronic indwelling Smith catheter who presented emergency department for altered mental status. History is obtained from medical record that. Unkn own last normal state but according to the ED and was supposedly around 6 AM yesterday per nursing staff and it's reported that the patient has been lethargic. Patient has a chronic indwelling Smith catheter. Of note the patient is known to our neurology service and he was last evaluated by Dr. Ventura 09/30/2021 for altered mental status and was felt more toxic metabolic encephalopathy and his condition improved. He felt his a generalized weakness was most likely related to his critical illness neuropathy/myopathy Please refer to his note for further details. Patient had the multiple EEGs in our facility. He had a total and a half hour prolonged EEG on 07/05/2021 which was negative for any seizures or epileptiform discharges reported. It was an abnormal study which showed triphasic waves which can be seen in the metabolic encephalopathy. Some other workup in our facility consisted of: Initial vital signs is a blood pressure 135/84, heart rate of 94, respiratory of 18, temperature of 97.5 Fahrenheit axillary pulse ox of 95%. White blood cell is 5.9. Hemoglobin is 7.8. His AST is 73 ALT 58, ammonia is 40, creatinine is 0.82 initial serum glucose 152, calcium is 8.4, magnesium is 1.9 Urine drug screen is nondetected CT of the head is reported as negative unenhanced head CT scan. No change. There is evidence of for bilateral chronic mastoiditis similar to old exam. I personally reviewed the CT of the head and I agree with report Chest x-rays reported as cardiomegaly with pulmonary vascular congestion and increased small left pleural effusion consistent with acute exacerbation of congestive heart failure Review of Systems Review of system Is limited but the pertinent positive and negative as per HPI. Past Medical History Past Medical History: COPD, Diabetes Mellitus, Deep Vein Thrombosis (DVT), Hyperlipidemia, Hypertension, Pneumonia, Prostate Disorder, Sleep Apnea/CPAP/BIP AP Additional Past Medical History / Comment(s): sleep apnea uses cpap machine, herniated disc-has had injections, past stress test pt stated was wnl History of Any Multi-Drug Resistant Organisms: None Reported Past Surgical History: Hernia Repair Additional Past Surgical History / Comment(s): hydrocelectomy, vasectomy, colonoscopy/polypectomy-benign. umbilical hernia repair, injections for hernia herman disc. Past Anesthesia/Blood Transfusion Reactions: No Reported Reaction Additional Past Anesthesia/Blood Transfusion Reaction / Comment(s): claust erphobia. pt stated has never had a blood transfusion Past Psychological History: No Psychological Hx Reported Smoking Status: Never smoker Past Alcohol Use History: Occasional Additional Past Alcohol Use History / Comment(s): approx 2008 briefly smoked the occ cigar. pt has a rare drink Past Drug Use History: Marijuana Additional Drug Use History / Comment(s): approx every 3 months - Past Family History Mother Family Medical History: Cancer, Eye Disorder Additional Family Medical History / Comment(s): skin cancer, macular degeneration Father Family Medical History: Coronary Artery Disease (CAD), Dementia Additional Family Medical History / Comment(s): cabg, stents, uti/sepsis Medications and Allergies Home Medications Medication Instructions Recorded Confirmed Type Tamsulosin [Flomax] 0.4 mg PO DAILY 08/23/18 01/24/22 History rOPINIRole HCL [Requip] 1 mg PO HS 08/23/18 01/24/22 History Ipratropium-Albuterol Nebulize 3 ml INHALATION RT-QID ml 07/16/21 01/24/22 Rx [Duoneb 0.5 mg-3 mg/3 ml Soln] Ascorbic Acid [Vitamin C] 500 mg PO DAILY 09/09/21 01/24/22 History Cholecalciferol [Vitamin D3 (25 25 mcg PO DAILY 09/09/21 01/24/22 History Mcg = 1000 Iu)] Multivitamins, Thera [Multivitamin 1 tab PO DAILY 09/09/21 01/24/22 History (formulary)] Acetaminophen [Acetaminophen ER] 650 mg PO Q6H PRN 12/31/21 01/24/22 History Albuterol Sulfate [Ventolin HFA] 2 puff INHALATION Q2H PRN 12/31/21 01/24/22 History Famotidine [Pepcid] 20 mg PO BID@0800,1600 12/31/21 01/24/22 History Promethazine HCl 12.5 mg PO Q12H PRN 12/31/21 01/24/22 History Furosemide [Lasix] 40 mg PO DAILY #1 tablet 01/21/22 01/24/22 Rx Gabapentin [Neurontin] 100 mg PO HS #3 cap 01/21/22 01/24/22 Rx Metoprolol Tartrate [Lopressor] 12.5 mg PO TID #1 tab 01/21/22 01/24/22 Rx Midodrine [ProAmatine] 5 mg PO AC-TID tab 01/21/22 01/24/22 Rx Folic Acid 0.8 mg PO DAILY 01/24/22 01/24/22 History Allergies Allergy/AdvReac Type Severity Reaction Status Date / Time No Known Allergies Allergy Verified 01/24/22 20:27 Physical Examination - Vital Signs Vital Signs: Vital Signs Temp Pulse Resp BP Pulse Ox FiO2 01/25/22 08:30 101 H 22 115/84 100 01/25/22 07:46 103 H 65 01/25/22 07:13 102 H 111/76 93 L 01/25/22 06:32 70 01/25/22 06:21 98 25 H 102/68 91 L 01/25/22 06:00 92 01/25/22 05:53 100 01/25/22 05:45 90 01/25/22 05:34 93 24 115/73 80 L 01/25/22 05:30 100 01/25/22 03:26 101 H 106/70 98 01/25/22 02:24 101 H 16 96 01/24/22 23:47 101 H 21 120/62 98 01/24/22 22:10 103 H 19 111/85 97 01/24/22 20:37 90 17 127/85 99 01/24/22 19:31 97.5 F L 94 18 135/84 95 Intake and Output 01/24/22 01/25/22 01/25/22 22:59 06:59 14:59 Other: Weight 95.254 kg GENERAL: The patient is lying in bed and is not in acute distress. CHEST: The heart rate is regular rate rhythm. No murmurs to auscultation. LUNG: Clear to auscultation bilaterally no wheezing noted throughout. Not labored breathing. He is on BiPAP. ABDOMEN/GI: Bowel sounds present in all 4 quadrants. No tenderness to palpation throughout. NEUROLOGICAL: Limited because of his condition and is on BiPAP. Higher mental function: The patient is drowsy but is awakeable to voice. He is oriented to self. With options correctly chose the place and year. He stated the month is December. He is slow in responding. He is following simple commands (thumbs up, sticking his tongue out). Language is limited. No neglect. Cranial nerves: The pupils are round, equal and reactive to light. No facial weakness. No dysarthria. Rest is limited because of his cooperation. Motor: The strength is hard to assess individual muscle strength but able to raise bilateral uppers above gravity. While lowers was able to move proximal side to side and wiggle his toes. Has tremor of uppers at rest and with action and seems asynchronus. Cerebellum: Unable to assess. Sensation: Sensation is normal to touch throughout. Reflexes (right/left): 1-2+ in uppers while lowers were hard to assess. Patient had edema in lower extremities. Plantars are mute bilaterally. Results - Laboratory Findings CBC and BMP: 01/25/22 07:57 01/25/22 07:57 Abnormal Lab Findings: Abnormal Labs 01/24/22 01/24/22 01/24/22 19:40 19:50 19:52 RBC 3.78 L Hgb 10.8 L D Hct 36.3 L MCHC 29.7 L RDW 19.2 H Plt Count Lymphocytes # 0.6 L APTT 18.9 L Sodium Chloride Carbon Dioxide Glucose POC Glucose (mg/dL) 148 H Calcium Phosphorus AST ALT Alkaline Phosphatase Ammonia Total Protein Albumin Urine Protein Urine WBC Urine Bacteria Urine Mucus 01/24/22 01/24/22 01/24/22 19:52 19:52 19:52 RBC Hgb Hct MCHC RDW Plt Count Lymphocytes # APTT Sodium 134 L Chloride 93 L Carbon Dioxide 39 H Glucose 152 H POC Glucose (mg/dL) Calcium Phosphorus AST 73 H ALT 50 H Alkaline Phosphatase 229 H Ammonia 40 H Total Protein 5.6 L Albumin 2.4 L Urine Protein 1+ H Urine WBC 7 H Urine Bacteria Rare H Urine Mucus Rare H 01/25/22 01/25/22 01/25/22 06:23 07:57 07:57 RBC 3.06 L Hgb 9.2 L D Hct 30.2 L MCHC 30.7 L RDW 19.3 H Plt Count 535 H Lymphocytes # APTT Sodium Chloride Carbon Dioxide 36 H Glucose 148 H POC Glucose (mg/dL) 145 H Calcium 8.1 L Phosphorus 5.7 H AST 106 H ALT 60 H Alkaline Phosphatase 250 H Ammonia Total Protein 5.8 L Albumin 2.5 L Urine Protein Urine WBC Urine Bacteria Urine Mucus 01/25/22 07:57 RBC Hgb Hct MCHC RDW Plt Count Lymphocytes # APTT Sodium Chloride Carbon Dioxide Glucose POC Glucose (mg/dL) Calcium Phosphorus AST ALT Alkaline Phosphatase Ammonia 36 H Total Protein Albumin Urine Protein Urine WBC Urine Bacteria Urine Mucus Assessment and Plan Assessment: Acute encephalopathy seems due to hepatic encephalopathy Acute congestive heart failure exacerbation Type 2 diabetes Hypertension currently controlled. History of COVID-19 Generalized weakness (mostly lowers than uppers) and was felt mostly due to critical illness myopathy/neuropathy Hyperlipidemia DVT sleep apnea COPD Sacral decubitus ulcer with chronic indwelling Smith catheter Plan: Patient is on lactulose and we'll defer the management to the primary team. Patient had vitamin B12 and TSH in 12/2021 and was normal and does not need to be repeated. An EEG is not warranted at this time since it does not seem like a seizure but if he continues to be altered more than happy to pursue with the routine EEG. Patient had multiple EEGs in the past as well as a prolonged EEG and a prolonged EEG was negative for seizures. Cardiology is on board We'll defer the rest of the medical management to the primary and ICU team. The plan is discussed with his nurse. Thank you for the consultation. Florencio Ulloa M.D. Neuro-hospitalist Time with Patient: Greater than 30
[2022-01-25] MEDS ORDERED: COLLAGENASE 250 UNIT/GM OINTMENT 30 GM TUBE TOPICAL SCH (10:30)
[2022-01-25] MEDS: PIPERACILLIN-TAZOBACTAM 3.375 GM in SODIUM CHLORIDE 0.9% 100 ML IVPB SCH ×3 (11:13→23:55)
[2022-01-25 11:23] LABS: Glucose,Whole Blood 146 mg/dL (70-110)
[2022-01-25] MEDS ORDERED: methylPREDNISolone SOD SUCCI 125 MG/2 ML VIAL IV SCH (12:00)
--- NOTE | 2022-01-25 12:33 | P.CNPUL ---
History of Present Illness Consult date: 01/25/22 Reason for consult: dyspnea History of present illness: 61-year-old male patient with a complicated medical history, came in to the emergency department today after being [facility] to a [facility] approximately 3 days ago. The patient was found to have altered mentation and he was found to be lethargic and was sent and was having more shortness of breath. I was told that the patient was discharged home on room air oxygen and he was not requiring any oxygen supplementation. The time of his arrival to the emergency department, the patient was having labored breathing and was tachypneic and he was given a chest x-ray that showed bilateral pleural effusions which are essentially chronic. No reported aspiration. The PEG tube, however, I was also informed that was taken food orally. He was immediately placed on a BiPAP at a pressure of 16/8 cm of water and FiO2 of 65%. He was started on IV Lasix 40 mg every 8 hours. He has diuresed more than 2 L for now. He is already feeling better. His white cell count of 5.9 with hemoglobin 10.8 and a platelet count of 443. The patient's BUN of 50 with a 0.8 His Sodium Level of 134. Correlation Profile Was Essentially within Normal Limits. The Patient Also Had a Normal UA, Normal Urine Drug Screen, Albumin Level Is Improved and Is up to 2.4 with a total protein of 5.6. AST is 73, ALT 50, alkaline phosphatase is at 229 and the patient has a lactic acid level of 0.9. Potassium level is at 8.4. Ammonia level is at 40. He is arousable. He is talking. He is profoundly weak in his legs and the patient has been drop bilaterally. He is moving his arms against gravity and his motor function is around 3-4 out of 5 and symmetrical in both upper extremities. A repeat compu herman tomography scan of the brain was done and was negative. Chest x-ray showed pulmonary vascular congestion and bilateral pleural effusion. Review of Systems Constitutional: Reports fatigue, Reports poor appetite, Reports weakness Eyes: denies as per HPI, denies blurred vision, denies bulging eye, denies decreased vision, denies diplopia, denies discharge, denies dry eye, denies irritation, denies itching, denies pain, denies photophobia, denies loss of peripheral vision, denies loss of vision, denies tunnel vision/blind spots Ears: deny: decreased hearing, ear discharge, earache, tinnitus Ears, nose, mouth and throat: Reports as per HPI Breasts: absent: as per HPI, gynecomastia Cardiovascular: Reports as per HPI, Reports decreased exercise tolerance, Reports shortness of breath Respiratory: Reports as per HPI, Reports dyspnea, Reports sleep apnea Gastrointestinal: Reports as per HPI, Reports loss of appetite Genitourinary: Reports as per HPI Musculoskeletal: Reports gait dysfunction, Reports limitation of motion, Reports low back pain, Reports morning stiffness, Reports muscle weakness Musculoskeletal: bilateral: ankle swelling, absent: ankle pain, ankle stiffness Integumentary: Reports wounds Neurological: Reports as per HPI, Reports gait dysfunction, Reports lack of coordination, Reports motor disturbance, Reports weakness Psychiatric: Reports as per HPI Endocrine: Reports as per HPI, Reports fatigue Hematologic/Lymphatic: Reports as per HPI Allergic/Immunologic: Reports as per HPI Past Medical History Past Medical History: COPD, Diabetes Mellitus, Deep Vein Thrombosis (DVT), Hyperlipidemia, Hypertension, Pneumonia, Prostate Disorder, Sleep Apnea/CPAP/BIPAP Additional Past Medical History / Comment(s): sleep apnea uses cpap machine, herniated disc-has had injections,. DVT of the right lower extremity on Eliquis, Stage IV decubitus ulcer,. Previous history of kidney failure requiring dialysis, third spacing and edema,. Hypoalbuminemia, History morbid obesity with ongoing weight loss,. Diabetes mellitus type 2, Bronchial asthma, History of Any Multi-Drug Resistant Organisms: None Reported Past Surgical History: Cholecystectomy, Hernia Repair Additional Past Surgical History / Comment(s): hydrocelectomy, vasectomy, colonoscopy/polypectomy-benign. umbilical hernia repair, injections for herniated disc. Past Anesthesia/Blood Transfusion Reactions: No Reported Reaction Additional Past Anesthesia/Blood Transfusion Reaction / Comment(s): clausterphobia. pt stated has never had a blood transfusion Past Psychological History: No Psychological Hx Reported Smoking Status: Never smoker Past Alcohol Use History: Occasional Additional Past Alcohol Use History / Comment(s): approx 2008 briefly smoked the occ cigar. pt has a rare drink Past Drug Use History: Marijuana Additional Drug Use History / Comment(s): approx every 3 months - Past Family History Mother Family Medical History: Cancer, Eye Disorder Additional Family Medical History / Comment(s): skin cancer, macular degeneration Father Family Medical History: Coronary Artery Disease (CAD), Dementia Additional Family Medical History / Comment(s): cabg, stents, uti/sepsis Medications and Allergies Home Medications Medication Instructions Recorded Confirmed Type Tamsulosin [Flomax] 0.4 mg PO DAILY 08/23/18 01/24/22 History rOPINIRole HCL [Requip] 1 mg PO HS 08/23/18 01/24/22 History Ipratropium-Albuterol Nebulize 3 ml INHALATION RT-QID ml 07/16/21 01/24/22 Rx [Duoneb 0.5 mg-3 mg/3 ml Soln] Ascorbic Acid [Vitamin C] 500 mg PO DAILY 09/09/21 01/24/22 History Cholecalciferol [Vitamin D3 (25 25 mcg PO DAILY 09/09/21 01/24/22 History Mcg = 1000 Iu)] Multivitamins, Thera [Multivitamin 1 tab PO DAILY 09/09/21 01/24/22 History (formulary)] Acetaminophen [Acetaminophen ER] 650 mg PO Q6H PRN 12/31/21 01/24/22 History Albuterol Sulfate [Ventolin HFA] 2 puff INHALATION Q2H PRN 12/31/21 01/24/22 Hi story Famotidine [Pepcid] 20 mg PO BID@0800,1600 12/31/21 01/24/22 History Promethazine HCl 12.5 mg PO Q12H PRN 12/31/21 01/24/22 History Furosemide [Lasix] 40 mg PO DAILY #1 tablet 01/21/22 01/24/22 Rx Gabapentin [Neurontin] 100 mg PO HS #3 cap 01/21/22 01/24/22 Rx Metoprolol Tartrate [Lopressor] 12.5 mg PO TID #1 tab 01/21/22 01/24/22 Rx Midodrine [ProAmatine] 5 mg PO AC-TID tab 01/21/22 01/24/22 Rx Folic Acid 0.8 mg PO DAILY 01/24/22 01/24/22 History Allergies Allergy/AdvReac Type Severity Reaction Status Date / Time No Known Allergies Allergy Verified 01/24/22 20:27 Physical Exam Vitals: Vital Signs Temp Pulse Resp BP Pulse Ox FiO2 01/25/22 09:39 111 H 22 108/77 98 01/25/22 08:30 101 H 22 115/84 100 01/25/22 07:46 103 H 65 01/25/22 07:13 102 H 111/76 93 L 01/25/22 06:32 70 01/25/22 06:21 98 25 H 102/68 91 L 01/25/22 06:00 92 01/25/22 05:53 100 01/25/22 05:45 90 01/25/22 05:34 93 24 115/73 80 L 01/25/22 05:30 100 01/25/22 03:26 101 H 106/70 98 01/25/22 02:24 101 H 16 96 01/24/22 23:47 101 H 21 120/62 98 01/24/22 22:10 103 H 19 111/85 97 01/24/22 20:37 90 17 127/85 99 01/24/22 19:31 97.5 F L 94 18 135/84 95 Intake and Output 01/24/22 01/25/22 01/25/22 22:59 06:59 14:59 Other: Weight 95.254 kg 95.254 kg Gen. appearance the patient is awake and alert and is following simple commands. The patient has labored breathing and the patient is currently on a BiPAP at a pressure of 16/8 cm of water with an FiO2 of 65% stable to remain synchronous with the BiPAP machine. Is able to follow commands. Motor function the upper extremities on 4/5, motor function lower extremities around 1/5. The patient is paralyzed global weakness mainly in lower extremities and the patient has obvious 4 drops in lower extremities bilaterally. Head exam was generally normal. There was no scleral icterus or corneal arcus. Mucous membranes were moist. Neck was supple and without jugular venous distension, thyromegaly, or carotid bruits. Carotids were easily palpable bilaterally. There was no adenopathy. Lungs diminished breath sounds bilaterally along with dullness to percussion consistent with bilateral pleural effusions Heart sounds are distant positive sinus and there is no significant murmurs appreciated Abdominal exam revealed normal bowel sounds. The abdomen was soft, non-tender, and without masses, organomegaly, or appreciable enlargement of the abdominal aorta. Patient is also developed some bleeding from the skin at the site of Lovenox injections. There is areas of ecchymosis. No direct tenderness. No rebound tenderness. No guarding. Surgical wound site over the right upper quadrant at the site of the open cholecystectomy dry clean and intact. Bowel sounds are hypoactive at the present. No distention. No ascites. The patient has a PEG tube which is in the epigastric area and the dry areas dry clean and intact Extremities are quite adequate pulses bilaterally, no cyanosis. Neurologically the patient is following commands and answering questions. No focal neurological deficits. Profoundly weak, extensive edema in all 4 extremities mainly in the left upper extremity that needs to be further worked up. Skin stage IV sacral decubitus ulceration mild deep, reaching the bone and the area can be easily probes. Several other ones stage III in the sacrum area. Of them needs to be debrided as there is some purulent material covering the surface. Results - Laboratory Findings CBC and BMP: 01/25/22 07:57 01/25/22 07:57 ABG WBC 6.2 k/uL (3.8-10.6) 01/25/22 07:57 RBC 3.06 m/uL (4.30-5.90) L 01/25/22 07:57 Hgb 9.2 gm/dL (13.0-17.5) L D 01/25/22 07:57 Hct 30.2 % (39.0-53.0) L 01/25/22 07:57 MCV 98.4 fL (80.0-100.0) 01/25/22 07:57 MCH 30.2 pg (25.0-35.0) 01/25/22 07:57 MCHC 30.7 g/dL (31.0-37.0) L 01/25/22 07:57 RDW 19.3 % (11.5-15.5) H 01/25/22 07:57 Plt Count 535 k/uL (150-450) H 01/25/22 07:57 MPV 7.4 01/25/22 07:57 Neutrophils % 80 % 01/24/22 19:52 Lymphocytes % 10 % 01/24/22 19:52 Monocytes % 6 % 01/24/22 19:52 Eosinophils % 0 % 01/24/22 19:52 Basophils % 1 % 01/24/22 19:52 Neutrophils # 4.8 k/uL (1.3-7.7) 01/24/22 19:52 Lymphocytes # 0.6 k/uL (1.0-4.8) L 01/24/22 19:52 Monocytes # 0.4 k/uL (0-1.0) 01/24/22 19:52 Eosinophils # 0.0 k/uL (0-0.7) 01/24/22 19:52 Basophils # 0.1 k/uL (0-0.2) 01/24/22 19:52 Hypochromasia Marked 01/25/22 07:57 Anisocytosis Slight 01/25/22 07:57 Macrocytosis Slight 01/25/22 07:57 PT 9.5 sec (9.0-12.0) 01/24/22 19:50 INR 0.8 (<1.2) 01/24/22 19:50 APTT 18.9 sec (22.0-30.0) L 01/24/22 19:50 Sodium 138 mmol/L (137-145) 01/25/22 07:57 Potassium 3.9 mmol/L (3.5-5.1) 01/25/22 07:57 Chloride 98 mmol/L (98-107) 01/25/22 07:57 Carbon Dioxide 36 mmol/L (22-30) H 01/25/22 07:57 Anion Gap 4 mmol/L 01/25/22 07:57 BUN 15 mg/dL (9-20) 01/25/22 07:57 Creatinine 0.84 mg/dL (0.66-1.25) 01/25/22 07:57 Est GFR (CKD-EPI)AfAm >90 (>60 ml/min/1.73 sqM) 01/25/22 07:57 Est GFR (CKD-EPI)NonAf >90 (>60 ml/min/1.73 sqM) 01/25/22 07:57 Glucose 148 mg/dL (74-99) H 01/25/22 07:57 POC Glucose (mg/dL) 145 mg/dL (70-110) H 01/25/22 06:23 POC Glu Auto Inspector TRE Perez Lisseth 01/25/22 06:23 Plasma Lactic Acid Hayden 0.9 mmol/L (0.7-2.0) 01/24/22 19:52 Calcium 8.1 mg/dL (8.4-10.2) L 01/25/22 07:57 Phosphorus 5.7 mg/dL (2.5-4.5) H 01/25/22 07:57 Magnesium 2.0 mg/dL (1.6-2.3) 01/25/22 07:57 Total Bilirubin 0.4 mg/dL (0.2-1.3) 01/25/22 07:57 AST 106 U/L (17-59) H 01/25/22 07:57 ALT 60 U/L (4-49) H 01/25/22 07:57 Alkaline Phosphatase 250 U/L (38-126) H 01/25/22 07:57 Ammonia 36 umol/L (<30) H 01/25/22 07:57 Troponin I <0.012 ng/mL (0.000-0.034) 01/25/22 03:45 NT-Pro-B Natriuret Pep 8640 pg/mL 01/24/22 19:52 Total Protein 5.8 g/dL (6.3-8.2) L 01/25/22 07:57 Albumin 2.5 g/dL (3.5-5.0) L 01/25/22 07:57 Urine Color Yellow 01/24/22 19:52 Urine Appearance Cloudy (Clear) 01/24/22 19:52 Urine pH 5.5 (5.0-8.0) 01/24/22 19:52 Ur Specific [place] 1.014 (1.001-1.035) 01/24/22 19:52 Urine Protein 1+ (Negative) H 01/24/22 19:52 Urine Glucose (UA) Negative (Negative) 01/24/22 19:52 Urine Ketones Negative (Negative) 01/24/22 19:52 Urine Blood Negative (Negative) 01/24/22 19:52 Urine Nitrite Negative (Negative) 01/24/22 19:52 Urine Bilirubin Negative (Negative) 01/24/22 19:52 Urine Urobilinogen <2.0 mg/dL (<2.0) 01/24/22 19:52 Ur Leukocyte Esterase Negative (Negative) 01/24/22 19:52 Urine RBC <1 /hpf (0-5) 01/24/22 19:52 Urine WBC 7 /hpf (0-5) H 01/24/22 19:52 Urine Bacteria Rare /hpf (None) H 01/24/22 19:52 Hyaline Casts 1 /lpf (0-2) 01/24/22 19:52 Urine Mucus Rare /hpf (None) H 01/24/22 19:52 Urine Opiates Screen Not Detected (NotDetected) 01/24/22 19:52 Ur Oxycodone Screen Not Detected (NotDetected) 01/24/22 19:52 Urine Methadone Screen Not Detected (NotDetected) 01/24/22 19:52 Ur Propoxyphene Screen Not Detected (NotDetected) 01/24/22 19:52 Ur Barbiturates Screen Not Detected (NotDetected) 01/24/22 19:52 U Tricyclic Antidepress Not Detected (NotDetected) 01/24/22 19:52 Ur Phencyclidine Scrn Not Detected (NotDetected) 01/24/22 19:52 Ur Amphetamines Screen Not Detected (NotDetected) 01/24/22 19:52 U Methamphetamines Scrn Not Detected (NotDetected) 01/24/22 19:52 U Benzodiazepines Scrn Not Detected (NotDetected) 01/24/22 19:52 Urine Cocaine Screen Not Detected (NotDetected) 01/24/22 19:52 U Marijuana (THC) Screen Not Detected (NotDetected) 01/24/22 19:52 PT/INR, D-dimer PT 9.5 sec (9.0-12.0) 01/24/22 19:50 INR 0.8 (<1.2) 01/24/22 19:50 Abnormal lab findings: Abnormal Labs 01/24/22 01/24/22 01/24/22 19:40 19:50 19:52 RBC 3.78 L Hgb 10.8 L D Hct 36.3 L MCHC 29.7 L RDW 19.2 H Plt Count Lymphocytes # 0.6 L APTT 18.9 L Sodium Chloride Carbon Dioxide Glucose POC Glucose (mg/dL) 148 H Calcium Phosphorus AST ALT Alkaline Phosphatase Ammonia Total Protein Albumin Urine Protein Urine WBC Urine Bacteria Urine Mucus 01/24/22 01/24/22 01/24/22 19:52 19:52 19:52 RBC Hgb Hct MCHC RDW Plt Count Lymphocytes # APTT Sodium 134 L Chloride 93 L Carbon Dioxide 39 H Glucose 152 H POC Glucose (mg/dL) Calcium Phosphorus AST 73 H ALT 50 H Alkaline Phosphatase 229 H Ammonia 40 H Total Protein 5.6 L Albumin 2.4 L Urine Protein 1+ H Urine WBC 7 H Urine Bacteria Rare H Urine Mucus Rare H 01/25/22 01/25/22 01/25/22 06:23 07:57 07:57 RBC 3.06 L Hgb 9.2 L D Hct 30.2 L MCHC 30.7 L RDW 19.3 H Plt Count 535 H Lymphocytes # APTT Sodium Chloride Carbon Dioxide 36 H Glucose 148 H POC Glucose (mg/dL) 145 H Calcium 8.1 L Phosphorus 5.7 H AST 106 H ALT 60 H Alkaline Phosphatase 250 H Ammonia Total Protein 5.8 L Albumin 2.5 L Urine Protein Urine WBC Urine Bacteria Urine Mucus 01/25/22 07:57 RBC Hgb Hct MCHC RDW Plt Count Lymphocytes # APTT Sodium Chloride Carbon Dioxide Glucose POC Glucose (mg/dL) Calcium Phosphorus AST ALT Alkaline Phosphatase Ammonia 36 H Total Protein Albumin Urine Protein Urine WBC Urine Bacteria Urine Mucus - Diagnostic Findings Chest x-ray: image reviewed Assessment and Plan Plan: Acute mental status change, likely due to encephalopathy and hypoxemia and possibly hypercapnia. No blood gases were done. The patient was placed on a BiPAP and the patient is already improved and the CAT scan of the brain is negative and the patient is communicating at this point in time. No seizure activity has been noted. Cardiology Acute hypoxic respiratory failure, currently on a BiPAP at a pressure of 16/8 cm of water and FiO2 of 65%. Chest x-ray showing bilateral pleural effusion and possible infiltrate in lung bases bilaterally. Rule out underlying aspiration. Rule out underlying hospital-acquired pneumonia. Failure to thrive and the patient was given a PEG tube for enteral feeding and is support Running hypotension. The patient recovered from his acute septic shock during his last admission. No clear indication for an abdominal abscess. Recent gangrenous cholecystitis with a right cholecystectomy, open. There is a collection in the gallbladder fossa which is most likely benign. Abdominal exam is benign and the patient is not having any abnormalities in liver function tests. 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 Hypoalbuminemia with a serum albumin of 2.5 History morbid obesity with ongoing weight loss Diabetes mellitus type 2 Bronchial asthma, chronic unspecified/COPD Diabetes mellitus type 2 Obstructive sleep apnea BPH Hypertension Hyperlipidemia Previous history of C. diff colitis, repeat stool for C. diff has been negative Generalized debility due to his medical condition and the patient has been [facility] resident following his surgery Anemia , chronic and Hb is curreently at 9.2 Plan Patient is presenting with acute hypoxic respiratory failure, currently on BiPAP and the patient is able to tolerate the BiPAP reasonably well. He does have bilateral lower lobe opacities and pleural effusions. Consider aspiration. Consider hospital-acquired pneumonia. Put the patient on BiPAP for now Obtain a blood gas Obtain a pro-calcitonin level Put the patient on Antibiotic coverage with IV Zosyn Continue Lasix 40 mg every 8 hours and the patient is producing significant amount of urine output Wound care and consult on services Consult dietary for enteral feeding and nutritional support and the patient will be better off with enteral feeding for now. Continue anticoagulation with Eliquis DNR/DNI CODE STATUS Very poor baseline performance and functional status with extensive comorbid ities and abilities. Moreover into the intensive care unit for now. We'll see this patient along with aggressive the consultants. Time with Patient: Greater than 30
--- NOTE | 2022-01-25 12:40 | P.HPIM ---
History of Present Illness H&P Date: 01/25/22 Chief Complaint: Altered mental status Hospital course: this is a pleasant 61 yo M with past medical history of COPD, Diabetes Mellitus, Deep Vein Thrombosis, Hyperlipidemia, Hypertension, Sleep Apnea/CPAP/BIPAP He was in the hospital on 09/2021 for severe hypotension from decreased oral intake, acute metabolic encephalopathy, chronic congestive heart failure, diastolic with ejection fraction 55-60%, acute kidney injury, sinus tachycardia, status post cholecystectomy for his gangrenous cholecystitis, restless leg syndrome, BPH, chronic medical debility , he was shelter since June 2021. At that time was in the hospital for acute hypoxic respiratory failure of unknown causes. needed intubation then. He had complete opacification in the left hemithorax he had 2 bronchoscopy done which was negative for microbial growth. another admission on 09/2021. Patient was recently in the hospital from December 31 through January 21/2022 he came here because he wanted to get the PEG tube because he was not eating anything since June and he lost a lot of weight he used to weigh 333 pounds and now 193. He states that his main issue is no appetite, he denies choking but he has sometimes nausea that prevent him from eating. has unstageable pressure decubitus ulcer status post debridement, he has wound VAC in place. Patient was treated for hypertensive shock and required levo fed. Was placed on midodrine. Also acute metabolic encephalopathy. Was found to have a complex region around the liver. Liver with CT scans ruled out any abscess or hematoma. Patient getting eliquis for right leg DVT. Patient had had significant bleeding from Lovenox and eliquis was being resume outpatient. Patient had had significant drop in hemoglobin. Was transfused blood. Patient also was on Lasix. Also treated with TPN and lipids for protein calorie malnutrition. Patient initially refused PEG tube for a long time and he was placed on January 18. 2 feeding was started. Patient was reluctant to eat prior to discharge. Patient is awake, communicative. Patient was sent in for altered mental status. Was found to be hypoxic in the ER. Suggestive of CHF and fluid overload. Given IV Lasix. Over thousand cc overnight. Started on IV Zosyn. Patient has been getting 2 feeding at the [facility]. Ammonia was elevated. Patient somewhat lethargic. Not able to give any history. is here at night has gone home to sleep. Past medical history to include: Right leg DVT, anorexia, chronic decubitus ulcer, anemia of chronic disease, hyperlipidemia, COPD, CHF with EF of 55-60%, restless leg syndrome, BPH, chronic medical debility, moderate protein calorie malnutrition, PEG tube, MEREDITH uses CPAP, herniated disc as disc injections, Social history: . Currently a resident at [facility]. Has a Regine lift to a wheelchair. Alcohol rarely. No smoking. Family history: Macular degeneration, skin cancer On examination: VITAL SIGNS: 97.5, 103, 19, 11/85, 97% on 2 L upon presentation GENERAL APPEARANCE: BMI 28.5, laying in bed, lethargic with BiPAP HEENT: Normal external appearance of nose and ear. Oral cavity normal EYES: Pupils equal. Conjunctiva normal. NECK: JVD unable to assess. Mass not palpable. RESPIRATORY: Respiratory effort increased. Decreased breath sounds CARDIOVASCULAR: First and second sounds normal. Some edema. ABDOMEN: Soft. Liver and spleen not palpable. No tenderness. No mass palpable. PEG tube PSYCHIATRY: Unable to assess, LYMPHATICS: No lymph nodes palpable neck and axilla Muscular skeletal: Stage IV pressure ulcer left buttock. INVESTIGATIONS, reviewed in the clinical context: January 25: White count 6.2 hemoglobin 9.2 platelets 535 sodium 138 progression 3.9 creatinine 0.84 AST 106 ALT 60 alkaline phosphatase 250 ammonia 36 albumin 2.5 Chest x-ray film personally reviewed by me-pulmonary edema, possible infiltrate EKG tracing personally reviewed by me-normal sinus rhythm. Right bundle branch block. Rate 94 Previous testing January 20: WBC 4.9 hemoglobin 7.8. His 257 potassium 3.4 creatinine 0.84 albumin 1.9 LIVER: ULTRASOUND:. PRIOR CHOLECYSTECTOMY. COMPLEX AREA SEEN IN THE GALLBLAD SARATH FOSSA. CONTAINING A FEW BUBBLES. CT abdomen: Persistent heterogenous hyperdense area in the hepatic parenchyma adjacent to the gallbladder fossa. Limited 2-D echocardiogram: Normal LV function. Ultrasound venous Doppler: Positive DVT right lower extremity. Assessment and plan: -Acute metabolic encephalopathy with delirium, likely a combination of hypoxia and pneumonia -Acute hypoxic respiratory failure from CHF, aspiration pneumonia Supplement oxygen -Possible element of hepatic encephalopathy with somewhat elevated pneumonia and some elevation of LFTs Lactulose 20 g every 12 -Possible aspiration pneumonia IV Zosyn -Complex liver collection adjacent to gallbladder fossa 2.7 cm Repeat computed tomography scan not suggestive of abscess/hematoma . Not for any further intervention. This was worked up on last admission -Acute right leg DVT Eliquis -Unstageable chronic decubitus ulcer - wound VAC to continue. Consult wound care team -Anemia of chronic diseases Hyperlipidemia -COPD DuoNeb 4 times a day -Acute on Chronic congestive heart failure with ejection fraction 55-60% IV Lasix 40 mg every 8. Strict I's and O's. -Restless leg syndrome -BPH Flomax . -Chronic medical debility Nonambulatory. Requires Regine lift. -Moderate protein calorie malnutrition from poor oral intake peg tube placed January 18. . PEG tube feeding to be coordinated by dietitian DO NOT RESUSCITATE BiPAP. Lactulose 20 g every 12. IV Lasix 40 mg every 8. Strict I's and O's. Aspiration precautions. Dietitian to resume PEG 2 feeding. Consultation with [employer] administrator. Follow labs. Past Medical History Past Medical History: COPD, Diabetes Mellitus, Deep Vein Thrombosis (DVT), Hyperlipidemia, Hypertension, Pneumonia, Prostate Disorder, Sleep Apnea/CPAP/BIPAP Additional Past Medical History / Comment(s): sleep apnea uses cpap machine, herniated disc-has had injections, past stress test pt stated was wnl History of Any Multi-Drug Resistant Organisms: None Reported Past Surgical History: Hernia Repair Additional Past Surgical History / Comment(s): hydrocelectomy, vasectomy, colonoscopy/polypectomy-benign. umbilical hernia repair, injections for herniated disc. Past Anesthesia/Blood Transfusion Reactions: No Reported Reaction Additional Past Anesthesia/Blood Transfusion Reaction / Comment(s): clausterphobia. pt stated has never had a blood transfusion Past Psychological History: No Psychological Hx Reported Smoking Status: Never smoker Past Alcohol Use History: Occasional Additional Past Alcohol Use History / Comment(s): approx 2008 briefly smoked the occ cigar. pt has a rare drink Past Drug Use History: Marijuana Additional Drug Use History / Comment(s): approx every 3 months - Past Family History Mother Family Medical History: Cancer, Eye Disorder Additional Family Medical History / Comment(s): skin cancer, macular degeneration Father Family Medical History: Coronary Artery Disease (CAD), Dementia Additional Family Medical History / Comment(s): cabg, stents, uti/sepsis Medications and Allergies Home Medications Medication Instructions Recorded Confirmed Type Tamsulosin [Flomax] 0.4 mg PO DAILY 02/14/19 07/18/22 History rOPINIRole HCL [Requip] 1 mg PO HS 08/23/18 01/24/22 History Ipratropium-Albuterol Nebulize 3 ml INHALATION RT-QID ml 07/16/21 01/24/22 Rx [Duoneb 0.5 mg-3 mg/3 ml Soln] Ascorbic Acid [Vitamin C] 500 mg PO DAILY 09/09/21 01/24/22 History Cholecalciferol [Vitamin D3 (25 25 mcg PO DAILY 09/09/21 01/24/22 History Mcg = 1000 Iu)] Multivitamins, Thera [Multivitamin 1 tab PO DAILY 09/09/21 01/24/22 History (formulary)] Acetaminophen [Acetaminophen ER] 650 mg PO Q6H PRN 12/31/21 01/24/22 History Albuterol Sulfate [Ventolin HFA] 2 puff INHALATION Q2H PRN 12/31/21 01/24/22 History Famotidine [Pepcid] 20 mg PO BID@0800,1600 12/31/21 01/24/22 History Promethazine HCl 12.5 mg PO Q12H PRN 12/31/21 01/24/22 History Furosemide [Lasix] 40 mg PO DAILY #1 tablet 01/21/22 01/24/22 Rx Gabapentin [Neurontin] 100 mg PO HS #3 cap 01/21/22 01/24/22 Rx Metoprolol Tartrate [Lopressor] 12.5 mg PO TID #1 tab 01/21/22 01/24/22 Rx Midodrine [ProAmatine] 5 mg PO AC-TID tab 01/21/22 01/24/22 Rx Folic Acid 0.8 mg PO DAILY 01/24/22 01/24/22 History Allergies Allergy/AdvReac Type Severity Reaction Status Date / Time No Known Allergies Allergy Verified 01/24/22 20:27 Physical Exam Vitals: Vital Signs Temp Pulse Resp BP Pulse Ox FiO2 01/25/22 09:39 111 H 22 108/77 98 01/25/22 08:30 101 H 22 115/84 100 01/25/22 07:46 103 H 65 01/25/22 07:13 102 H 111/76 93 L 01/25/22 06:32 70 01/25/22 06:21 98 25 H 102/68 91 L 01/25/22 06:00 92 01/25/22 05:53 100 01/25/22 05:45 90 01/25/22 05:34 93 24 115/73 80 L 01/25/22 05:30 100 01/25/22 03:26 101 H 106/70 98 01/25/22 02:24 101 H 16 96 01/24/22 23:47 101 H 21 120/62 98 01/24/22 22:10 103 H 19 111/85 97 01/24/22 20:37 90 17 127/85 99 01/24/22 19:31 97.5 F L 94 18 135/84 95 Intake and Output 01/24/22 01/25/22 01/25/22 22:59 06:59 14:59 Other: Weight 95.254 kg 95.254 kg Results CBC & Chem 7: 01/25/22 07:57 01/25/22 07:57 Labs: Abnormal Lab Results - Last 24 Hours (Table) 01/24/22 01/24/22 01/24/22 Range/Units 19:40 19:50 19:52 RBC 3.78 L (4.30-5.90) m/uL Hgb 10.8 L D (13.0-17.5) gm/dL Hct 36.3 L (39.0-53.0) % MCHC 29.7 L (31.0-37.0) g/dL RDW 19.2 H (11.5-15.5) % Plt Count (150-450) k/uL Lymphocytes # 0.6 L (1.0-4.8) k/uL APTT 18.9 L (22.0-30.0) sec Sodium (137-145) mmol/L Chloride (98-107) mmol/L Carbon Dioxide (22-30) mmol/L Glucose (74-99) mg/dL POC Glucose (mg/dL) 148 H (70-110) mg/dL Calcium (8.4-10.2) mg/dL Phosphorus (2.5-4.5) mg/dL AST (17-59) U/L ALT (4-49) U/L Alkaline Phosphatase (38-126) U/L Ammonia (<30) umol/L Total Protein (6.3-8.2) g/dL Albumin (3.5-5.0) g/dL Urine Protein (Negative) Urine WBC (0-5) /hpf Urine Bacteria (None) /hpf Urine Mucus (None) /hpf 01/24/22 01/24/22 01/24/22 Range/Units 19:52 19:52 19:52 RBC (4.30-5.90) m/uL Hgb (13.0-17.5) gm/dL Hct (39.0-53.0) % MCHC (31.0-37.0) g/dL RDW (11.5-15.5) % Plt Count (150-450) k/uL Lymphocytes # (1.0-4.8) k/uL APTT (22.0-30.0) sec Sodium 134 L (137-145) mmol/L Chloride 93 L (98-107) mmol/L Carbon Dioxide 39 H (22-30) mmol/L Glucose 152 H (74-99) mg/dL POC Glucose (mg/dL) (70-110) mg/dL Calcium (8.4-10.2) mg/dL Phosphorus (2.5-4.5) mg/dL AST 73 H (17-59) U/L ALT 50 H (4-49) U/L Alkaline Phosphatase 229 H (38-126) U/L Ammonia 40 H (<30) umol/L Total Protein 5.6 L (6.3-8.2) g/dL Albumin 2.4 L (3.5-5.0) g/dL Urine Protein 1+ H (Negative) Urine WBC 7 H (0-5) /hpf Urine Bacteria Rare H (None) /hpf Urine Mucus Rare H (None) /hpf 01/25/22 01/25/22 01/25/22 Range/Units 06:23 07:57 07:57 RBC 3.06 L (4.30-5.90) m/uL Hgb 9.2 L D (13.0-17.5) gm/dL Hct 30.2 L (39.0-53.0) % MCHC 30.7 L (31.0-37.0) g/dL RDW 19.3 H (11.5-15.5) % Plt Count 535 H (150-450) k/uL Lymphocytes # 0.5 L (1.0-4.8) k/uL APTT (22.0-30.0) sec Sodium (137-145) mmol/L Chloride (98-107) mmol/L Carbon Dioxide 36 H (22-30) mmol/L Glucose 148 H (74-99) mg/dL POC Glucose (mg/dL) 145 H (70-110) mg/dL Calcium 8.1 L (8.4-10.2) mg/dL Phosphorus 5.7 H (2.5-4.5) mg/dL AST 106 H (17-59) U/L ALT 60 H (4-49) U/L Alkaline Phosphatase 250 H (38-126) U/L Ammonia (<30) umol/L Total Protein 5.8 L (6.3-8.2) g/dL Albumin 2.5 L (3.5-5.0) g/dL Urine Protein (Negative) Urine WBC (0-5) /hpf Urine Bacteria (None) /hpf Urine Mucus (None) /hpf 01/25/22 Range/Units 07:57 RBC (4.30-5.90) m/uL Hgb (13.0-17.5) gm/dL Hct (39.0-53.0) % MCHC (31.0-37.0) g/dL RDW (11.5-15.5) % Plt Count (150-450) k/uL Lymphocytes # (1.0-4.8) k/uL APTT (22.0-30.0) sec Sodium (137-145) mmol/L Chloride (98-107) mmol/L Carbon Dioxide (22-30) mmol/L Glucose (74-99) mg/dL POC Glucose (mg/dL) (70-110) mg/dL Calcium (8.4-10.2) mg/dL Phosphorus (2.5-4.5) mg/dL AST (17-59) U/L ALT (4-49) U/L Alkaline Phosphatase (38-126) U/L Ammonia 36 H (<30) umol/L Total Protein (6.3-8.2) g/dL Albumin (3.5-5.0) g/dL Urine Protein (Negative) Urine WBC (0-5) /hpf Urine Bacteria (None) /hpf Urine Mucus (None) /hpf Thrombosis Risk Factor Assmnt - Choose All That Apply Any of the Below Risk Factors Present?: Yes Each Factor Represents 1 point: Age 41-60 years, Heart failure (<1month), Medical pt on bed rest, Obesity (BMI >25), Swollen legs (current) Other Risk Factors: Yes Each Risk Factor Represents 2 Points: Patient confined to bed Each Risk Factor Represents 3 Points: History of DVT/PE Other congenital or acquired thrombophilia - If yes, enter type in comment: No Thrombosis Risk Factor Assessment Total Risk Factor Score: 10 Thrombosis Risk Factor Assessment Level: High Risk
[2022-01-25] MEDS: LACTULOSE 20 GM/30 ML CUP PO SCH ×2 (12:48→20:58)
[2022-01-25] MEDS ORDERED: LORazepam 2 MG/ML INJ IV STA (15:46)
--- NOTE | 2022-01-25 16:22 | P.CONS ---
History of Present Illness - Reason for Consult Consult date: 01/25/22 wound care - History of Present Illness This is a 61-year-old gentleman being seen by the wound care center for nonhealing ulceration to the left buttocks. Patient currently has a negative pressure wound VAC to the site. Patient developed a pressure ulcer during his last hospitalization back in September. He has multiple stage III/IV pressure ulcers to the left buttocks and sacrum. Continue with negative pressure wound va c Patient's past medical history significant for COPD, Diabetes Mellitus, Deep Vein Thrombosis, Hyperlipidemia, Hypertension, Sleep Apnea/CPAP/BIPAP. Review Of Systems: Constitutional: No fever, no chills, no night sweats. No weight change. No weakness, fatigue or lethargy. No daytime sleepiness. Integumentary:reports wounds, no lesions. No rash or pruritus. No unusual bruising. No change in hair or nails. Physical exam: General Appearance: Alert, cooperative, no distress, appears stated age. Skin: See HPI all other Skin color, texture, tugor normal, no rashes or lesions. Neurologic: Alert oriented x3 Assessment: 1. Stage IV pressure ulcer left buttocks 2. Diabetes with skin ulceration Plan: 1. Applied negative pressure wound VAC to 125 mm/Hg of suction with black foam to the site changed Monday, and Monday. Utilize Skin-Prep to the site. Thank you for the consultation any questions contact the wound care center DNP note has been reviewed and discussed with Dr. Centeno and the impression and plan of care has been directed as dictated. Past Medical History Past Medical History: COPD, Diabetes Mellitus, Deep Vein Thrombosis (DVT), Hyperlipidemia, Hypertension, Pneumonia, Prostate Disorder, Sleep Apnea/CPAP/BI PAP Additional Past Medical History / Comment(s): sleep apnea uses cpap machine, herniated disc-has had injections, past stress test pt stated was wnl History of Any Multi-Drug Resistant Organisms: None Reported Past Surgical History: Hernia Repair Additional Past Surgical History / Comment(s): hydrocelectomy, vasectomy, colonoscopy/polypectomy-benign. umbilical hernia repair, injections for herni ated disc. Past Anesthesia/Blood Transfusion Reactions: No Reported Reaction Additional Past Anesthesia/Blood Transfusion Reaction / Comm: clausterphobia. pt stated has never had a blood transfusion Past Psychological History: No Psychological Hx Reported Smoking Status: Never smoker Past Alcohol Use History: Occasional Additional Past Alcohol Use History / Comment(s): approx 2008 briefly smoked the occ cigar. pt has a rare drink Past Drug Use History: Marijuana Additional Drug Use History / Comment(s): approx every 3 months - Past Family History Mother Family Medical History: Cancer, Eye Disorder Additional Family Medical History / Comment(s): skin cancer, macular degeneration Father Family Medical History: Coronary Artery Disease (CAD), Dementia Additional Family Medical History / Comment(s): cabg, stents, uti/sepsis Medications and Allergies Home Medications Medication Instructions Recorded Confirmed Type Tamsulosin [Flomax] 0.4 mg PO DAILY 08/23/18 01/24/22 History rOPINIRole HCL [Requip] 1 mg PO HS 08/23/18 01/24/22 History Ipratropium-Albuterol Nebulize 3 ml INHALATION RT-QID ml 07/16/21 01/24/22 Rx [Duoneb 0.5 mg-3 mg/3 ml Soln] Ascorbic Acid [Vitamin C] 500 mg PO DAILY 09/09/21 01/24/22 History Cholecalciferol [Vitamin D3 (25 25 mcg PO DAILY 09/09/21 01/24/22 History Mcg = 1000 Iu)] Multivitamins, Thera [Multivitamin 1 tab PO DAILY 09/09/21 01/24/22 History (formulary)] Acetaminophen [Acetaminophen ER] 650 mg PO Q6H PRN 12/31/21 01/24/22 History Albuterol Sulfate [Ventolin HFA] 2 puff INHALATION Q2H PRN 12/31/21 01/24/22 History Famotidine [Pepcid] 20 mg PO BID@0800,1600 12/31/21 01/24/22 History Promethazine HCl 12.5 mg PO Q12H PRN 12/31/21 01/24/22 History Furosemide [Lasix] 40 mg PO DAILY #1 tablet 01/21/22 01/24/22 Rx Gabapentin [Neurontin] 100 mg PO HS #3 cap 01/21/22 01/24/22 Rx Metoprolol Tartrate [Lopressor] 12.5 mg PO TID #1 tab 01/21/22 01/24/22 Rx Midodrine [ProAmatine] 5 mg PO AC-TID tab 01/21/22 01/24/22 Rx Folic Acid 0.8 mg PO DAILY 01/24/22 01/24/22 History Allergies Allergy/AdvReac Type Severity Reaction Status Date / Time No Known Allergies Allergy Verified 01/24/22 20:27 Physical Exam Vitals: Vital Signs Temp Pulse Resp BP Pulse Ox FiO2 01/25/22 15:53 98.6 F 99 30 H 126/71 98 01/25/22 15:20 36 H 98 01/25/22 15:07 100 32 H 01/25/22 14:59 98 28 H 45 01/25/22 14:37 94 24 92/56 100 01/25/22 14:00 93 18 97/62 100 01/25/22 12:43 55 01/25/22 12:30 98.8 F 98 20 94/62 100 01/25/22 11:11 93 01/25/22 11:01 93 142/94 60 01/25/22 10:30 109 H 20 140/85 99 01/25/22 09:39 111 H 22 108/77 98 01/25/22 08:30 101 H 22 115/84 100 01/25/22 07:57 100 01/25/22 07:46 103 H 65 01/25/22 07:13 98 F 102 H 111/76 93 L 01/25/22 06:32 70 01/25/22 06:21 98 25 H 102/68 91 L 01/25/22 06:00 92 01/25/22 05:53 100 01/25/22 05:45 90 01/25/22 05:34 93 24 115/73 80 L 01/25/22 05:30 100 01/25/22 03:26 101 H 106/70 98 01/25/22 02:24 101 H 16 96 01/24/22 23:47 101 H 21 120/62 98 01/24/22 22:10 103 H 19 111/85 97 01/24/22 20:37 90 17 127/85 99 01/24/22 19:31 97.5 F L 94 18 135/84 95 Intake and Output 01/25/22 01/25/22 01/25/22 06:59 14:59 22:59 Output Total 1000 Balance -1000 Output: Urine 1000 Other: Weight 95.254 kg Results CBC & Chem 7: 01/25/22 07:57 01/25/22 07:57 Labs: Abnormal Lab Results - Last 24 Hours (Table) 01/24/22 01/24/22 01/24/22 Range/Units 19:40 19:50 19:52 RBC 3.78 L (4.30-5.90) m/uL Hgb 10.8 L D (13.0-17.5) gm/dL Hct 36.3 L (39.0-53.0) % MCHC 29.7 L (31.0-37.0) g/dL RDW 19.2 H (11.5-15.5) % Plt Count (150-450) k/uL Lymphocytes # 0.6 L (1.0-4.8) k/uL APTT 18.9 L (22.0-30.0) sec Sodium (137-145) mmol/L Chloride (98-107) mmol/L Carbon Dioxide (22-30) mmol/L Glucose (74-99) mg/dL POC Glucose (mg/dL) 148 H (70-110) mg/dL Calcium (8.4-10.2) mg/dL Phosphorus (2.5-4.5) mg/dL AST (17-59) U/L ALT (4-49) U/L Alkaline Phosphatase (38-126) U/L Ammonia (<30) umol/L Total Protein (6.3-8.2) g/dL Albumin (3.5-5.0) g/dL Procalcitonin (0.02-0.09) ng/mL Urine Protein (Negative) Urine WBC (0-5) /hpf Urine Bacteria (None) /hpf Urine Mucus (None) /hpf 01/24/22 01/24/22 01/24/22 Range/Units 19:52 19:52 19:52 RBC (4.30-5.90) m/uL Hgb (13.0-17.5) gm/dL Hct (39.0-53.0) % MCHC (31.0-37.0) g/dL RDW (11.5-15.5) % Plt Count (150-450) k/uL Lymphocytes # (1.0-4.8) k/uL APTT (22.0-30.0) sec Sodium 134 L (137-145) mmol/L Chloride 93 L (98-107) mmol/L Carbon Dioxide 39 H (22-30) mmol/L Glucose 152 H (74-99) mg/dL POC Glucose (mg/dL) (70-110) mg/dL Calcium (8.4-10.2) mg/dL Phosphorus (2.5-4.5) mg/dL AST 73 H (17-59) U/L ALT 50 H (4-49) U/L Alkaline Phosphatase 229 H (38-126) U/L Ammonia 40 H (<30) umol/L Total Protein 5.6 L (6.3-8.2) g/dL Albumin 2.4 L (3.5-5.0) g/dL Procalcitonin (0.02-0.09) ng/mL Urine Protein 1+ H (Negative) Urine WBC 7 H (0-5) /hpf Urine Bacteria Rare H (None) /hpf Urine Mucus Rare H (None) /hpf 01/25/22 01/25/22 01/25/22 Range/Units 06:23 07:57 07:57 RBC 3.06 L (4.30-5.90) m/uL Hgb 9.2 L D (13.0-17.5) gm/dL Hct 30.2 L (39.0-53.0) % MCHC 30.7 L (31.0-37.0) g/dL RDW 19.3 H (11.5-15.5) % Plt Count 535 H (150-450) k/uL Lymphocytes # 0.5 L (1.0-4.8) k/uL APTT (22.0-30.0) sec Sodium (137-145) mmol/L Chloride (98-107) mmol/L Carbon Dioxide 36 H (22-30) mmol/L Glucose 148 H (74-99) mg/dL POC Glucose (mg/dL) 145 H (70-110) mg/dL Calcium 8.1 L (8.4-10.2) mg/dL Phosphorus 5.7 H (2.5-4.5) mg/dL AST 106 H (17-59) U/L ALT 60 H (4-49) U/L Alkaline Phosphatase 250 H (38-126) U/L Ammonia (<30) umol/L Total Protein 5.8 L (6.3-8.2) g/dL Albumin 2.5 L (3.5-5.0) g/dL Procalcitonin (0.02-0.09) ng/mL Urine Protein (Negative) Urine WBC (0-5) /hpf Urine Bacteria (None) /hpf Urine Mucus (None) /hpf 01/25/22 01/25/22 01/25/22 Range/Units 07:57 07:57 11:22 RBC (4.30-5.90) m/uL Hgb (13.0-17.5) gm/dL Hct (39.0-53.0) % MCHC (31.0-37.0) g/dL RDW (11.5-15.5) % Plt Count (150-450) k/uL Lymphocytes # (1.0-4.8) k/uL APTT (22.0-30.0) sec Sodium (137-145) mmol/L Chloride (98-107) mmol/L Carbon Dioxide (22-30) mmol/L Glucose (74-99) mg/dL POC Glucose (mg/dL) 146 H (70-110) mg/dL Calcium (8.4-10.2) mg/dL Phosphorus (2.5-4.5) mg/dL AST (17-59) U/L ALT (4-49) U/L Alkaline Phosphatase (38-126) U/L Ammonia 36 H (<30) umol/L Total Protein (6.3-8.2) g/dL Albumin (3.5-5.0) g/dL Procalcitonin 0.34 H (0.02-0.09) ng/mL Urine Protein (Negative) Urine WBC (0-5) /hpf Urine Bacteria (None) /hpf Urine Mucus (None) /hpf Assessment and Plan (1) Pressure ulcer of right buttock, stage 3 Current Visit: Yes Status: Acute Code(s): L89.313 - PRESSURE ULCER OF RIGHT BUTTOCK, STAGE 3 SNOMED Code(s): 19617577350260987 (2) Pressure ulcer of sacral region, stage 3 Current Visit: Yes Status: Acute Code(s): L89.153 - PRESSURE ULCER OF SACRAL REGION, STAGE 3 SNOMED Code(s): 11137913746065749 (3) Pressure injury of left buttock, stage 4 Current Visit: No Status: Acute Code(s): L89.324 - PRESSURE ULCER OF LEFT B UTTOCK, STAGE 4 SNOMED Code(s): 32102834432978638
[2022-01-25 16:46] LABS: Glucose,Whole Blood 154 mg/dL (70-110)
[2022-01-25] MEDS: DEXMEDETOMIDINE/0.9% NACL(PMX) 400 MCG in EMPTY BAG 1 BAG IV SCH (18:40)
[2022-01-25] MEDS: GABAPENTIN 100 MG CAP PO SCH (20:58)
[2022-01-25] MEDS: APIXABAN 5 MG TAB PO SCH (20:58)
[2022-01-26] MEDS: NOREPINEPHRINE 4 MG in SODIUM CHLORIDE 0.9% 250 ML IV SCH (02:34)
[2022-01-26] MEDS: DEXMEDETOMIDINE/0.9% NACL(PMX) 400 MCG in EMPTY BAG 1 BAG IV SCH (02:35)
[2022-01-26 06:16] LABS: Anisocytosis Slight; HCT 27.7 % (39.0-53.0); HGB 8.5 gm/dL (13.0-17.5); Hypochromasia Marked; MCH 29.4 pg (25.0-35.0); MCHC 30.5 g/dL (31.0-37.0); MCV 96.2 fL (80.0-100.0); Macrocytosis Slight; Mean Platelet Volume 7.2; Platelet Count 605 k/uL (150-450); RBC 2.88 m/uL (4.30-5.90); RDW 19.5 % (11.5-15.5)
[2022-01-26 06:27] LABS: ALT 47 U/L (4-49); AST 71 U/L (17-59); African American GFR (CKD) >90 (>60 ml/min/1.73 sqM); Albumin 2.4 g/dL (3.5-5.0); Alkaline Phosphatase 231 U/L (38-126); Anion Gap 4 mmol/L; Blood Urea Nitrogen 19 mg/dL (9-20); Calcium 8.3 mg/dL (8.4-10.2); Carbon Dioxide 38 mmol/L (22-30); Chloride 96 mmol/L (98-107); Glucose 158 mg/dL (74-99); Magnesium 1.8 mg/dL (1.6-2.3); Non-African American GFR(CKD) 85 (>60 ml/min/1.73 sqM); Phosphorus 3.7 mg/dL (2.5-4.5); Potassium 3.6 mmol/L (3.5-5.1); Sodium 138 mmol/L (137-145); Total Bilirubin 0.3 mg/dL (0.2-1.3); Total Protein 5.3 g/dL (6.3-8.2)
[2022-01-26] MEDS: FUROSEMIDE 10 MG/ML 4 ML VIAL IV SCH ×2 (06:27→21:08)
[2022-01-26] MEDS: MIDODRINE 5 MG TAB PO SCH ×3 (06:30→17:47)
--- NOTE | 2022-01-26 08:19 | XR ---
EXAMINATION TYPE: XR chest 1V portable DATE OF EXAM: 01/26/2022 COMPARISON: Chest x-ray 01/25/2022 HISTORY: Congestive heart failure TECHNIQUE: Single frontal view of the chest is obtained. FINDINGS: Left-sided PICC line shows the tip at the cavoatrial junction. Lung volumes are low and th e patient is rotated. There are overlying artifacts. No evident pneumothorax. Bibasilar increased att enuation persists, this blunting the cost phrenic angles obscured hemidiaphragms. Cardiac mediastinal silhouette is within normal limits. IMPRESSION: Basilar atelectasis versus edema or pneumonia and associated effusion
[2022-01-26] MEDS: IPRATROPIUM-ALBUTEROL 3 ML NEB INHALATION SCH ×4 (08:37→19:21)
[2022-01-26 10:15] LABS: Band Neutrophils % 1 %; Neutrophils % (M) 69 %; Nucleated Red Blood Cells 1 /100 WBC (0-0); Total Cells Counted 100
[2022-01-26 10:16] LABS: Lymphocytes # (M) 0.93 k/uL (1.0-4.8); Monocytes # (M) 0.93 k/uL (0-1.0); Polychromasia Present; WBC 6.2 k/uL (3.8-10.6)
[2022-01-26] MEDS ORDERED: VANCOMYCIN 1,000 MG in SODIUM CHLORIDE 0.9% 250 ML IVPB ONE (10:16)
[2022-01-26] MEDS ORDERED: Potassium Replacement Protocol 1 EACH MISC MISCELLANE PRN (10:19)
[2022-01-26] MEDS ORDERED: Magnesium Replacement Protocol 1 EACH MISC MISCELLANE PRN (10:20)
[2022-01-26] MEDS ORDERED: VANCOMYCIN IV PER PHARMACY 1 EACH MISC MISCELLANE PRN (10:27)
[2022-01-26] MEDS ORDERED: POTASSIUM BICARBONATE/CIT AC 20 MEQ TABLET.EFF NG-TUBE SCH (11:00)
[2022-01-26] MEDS: PIPERACILLIN-TAZOBACTAM 3.375 GM in SODIUM CHLORIDE 0.9% 100 ML IVPB SCH ×2 (11:00→17:48)
--- NOTE | 2022-01-26 11:00 | P.PN ---
Subjective Progress Note Date: 01/26/22 61-year-old male patient with a complicated medical history, came in to the emergency department today after being discharged to a senior living approximately 3 days ago. The patient was found to have altered mentation and he was found to be lethargic and was sent and was having more shortness of breath. I was told that the patient was discharged home on room air oxygen and he was not requiring any oxygen supplementation. The time of his arrival to the emergency department, the patient was having labored breathing and was tachypneic and he was given a chest x-ray that showed bilateral pleural eff usions which are essentially chronic. No reported aspiration. The PEG tube, however, I was also informed that was taken food orally. He was immediately placed on a BiPAP at a pressure of 16/8 cm of water and FiO2 of 65%. He was started on IV Lasix 40 mg every 8 hours. He has diuresed more than 2 L for now. He is already feeling better. His white cell count of 5.9 with hemoglobin 10.8 and a platelet count of 443. The patient's BUN of 50 with a 0.8 His Sodium Level of 134. Correlation Profile Was Essentially within Normal Limits. The Patient Also Had a Normal UA, Normal Urine Drug Screen, Albumin Level Is Improved and Is up to 2.4 with a total protein of 5.6. AST is 73, ALT 50, alk chente phosphatase is at 229 and the patient has a lactic acid level of 0.9. Potassium level is at 8.4. Ammonia level is at 40. He is arousable. He is talking. He is profoundly weak in his legs and the patient has been drop bilaterally. He is moving his arms against gravity and his motor function is around 3-4 out of 5 and symmetrical in both upper extremities. A repeat computed tomography scan of the brain was done and was negative. Chest x-ray showed pulmonary vascular congestion and bilateral pleural effusion. On today's evaluation of 01/26/2022, the patient is awake and alert and the patient is following commands and answering questions appropriately. He is still profoundly weak. His breathing is nonlabored. He spent the night on BiPAP at a pressure of 16/8 cm of water and currently is on 4 L of Oxymizer nasal cannula. He remains on IV Lasix and the patient's fluid balance is been - 1.8 L over the past 24 hours. Chest x-ray is showing bilateral pleural effusions, essentially unchanged compared to yesterday. The patient is responding to diuresis. The patient was also methadone IV Zosyn. This was covering for aspiration. Blood culture one set return checker to be positive for gram-positive cocci and the patient will be given a dose of vancomycin. The patient is receiving Glucerna at the rate of 50 mL an hour. He is also on low- dose norepinephrine infusion running at 0.02 microvascular kilogram per minute. The white cell count is at 6.3 with a hemoglobin of 8.5 and a platelet count of 605 and his sodium is at 138, potassium level is at 3.6, BUN is at 19 with a creatinine of 0.9. Awaiting consultation by wound services. The patient will need a wound VAC to sacral stage IV Objective - Vital Signs Vital signs: Vital Signs Temp 97.9 F 01/26/22 08:00 Pulse 54 L 01/26/22 10:00 Resp 15 01/26/22 10:00 BP 125/58 01/26/22 10:00 Pulse Ox 100 01/26/22 10:00 FiO2 35 01/26/22 08:33 Intake & Output 01/25/22 01/26/22 01/26/22 18:59 06:59 18:59 Intake Total 141.429 443.639 224.259 Output Total 1550 840 500 Balance -1408.571 -396.361 -275.741 Weight 95.254 kg 103.3 kg Intake: IV 140 340 80 0.9 40 240 80 Piperacillin-Tazobactam 3 100 100 .375 gm In Sodium Chloride 0.9% 100 ml @ 25 mls/hr IVPB Q8HR ERINN Rx# :[id number] Intake, IV Titration 1.429 103.639 144.259 Amount Dexmedetomidine/0.9% NaCl 1.429 77.630 19.052 (Pmx) 400 mcg In Empty Bag 1 bag @ 0.2 MCG/KG/HR 4.763 mls/hr IV .Q21H ERINN Rx#:[id number] Norepinephrine 4 mg In 26.009 125.207 Sodium Chloride 0.9% 250 ml @ 0.05 MCG/KG/MIN 18. 146 mls/hr IV .Q14H ERINN Rx#:[id number] Output: Urine 1550 840 500 Other: Voiding Method Indwelling Catheter Indwelling Catheter # Bowel Movements 1 1 - Exam Gen. appearance the patient is awake and alert and is following simple commands. currently 4 liters/min Head exam was generally normal. There was no scleral icterus or corneal arcus. Mucous membranes were moist. Neck was supple and without jugular venous distension, thyromegaly, or carotid bruits. Carotids were easily palpable bilaterally. There was no adenopathy. Lungs diminished breath sounds bilaterally along with dullness to percussion consistent with bilateral pleural effusions Heart sounds are distant positive sinus and there is no significant murmurs appreciated Abdominal exam revealed normal bowel sounds. The abdomen was soft, non-tender, and without masses, organomegaly, or appreciable enlargement of the abdominal aorta. Patient is also developed some bleeding from the skin at the site of Lovenox injections. There is areas of ecchymosis. No direct tenderness. No rebound tenderness. No guarding. Surgical wound site over the right upper quadrant at the site of the open cholecystectomy dry clean and intact. Bowel sounds are hypoactive at the present. No distention. No ascites. The patient has a PEG tube which is in the epigastric area and the dry areas dry clean and i ntact Extremities are quite adequate pulses bilaterally, no cyanosis. Neurologically the patient is following commands and answering questions. No focal neurological deficits. Profoundly weak, extensive edema in all 4 extremities mainly in the left upper extremity that needs to be further worked up. Skin stage IV sacral decubitus ulceration mild deep, reaching the bone and the area can be easily probes. Several other ones stage III in the sacrum area. Of them needs to be debrided as there is some purulent material covering the surface. Lymph node nothing nothing going is diabetic - Labs CBC & Chem 7: 01/26/22 05:52 01/26/22 05:52 Labs: Abnormal Lab Results - Last 24 Hours (Table) 01/25/22 01/25/22 01/25/22 Range/Units 07:57 11:22 16:44 RBC (4.30-5.90) m/uL Hgb (13.0-17.5) gm/dL Hct (39.0-53.0) % MCHC (31.0-37.0) g/dL RDW (11.5-15.5) % Plt Count (150-450) k/uL Lymphocytes # (Manual) (1.0-4.8) k/uL Nucleated RBCs (0-0) /100 WBC Chloride (98-107) mmol/L Carbon Dioxide (22-30) mmol/L Glucose (74-99) mg/dL POC Glucose (mg/dL) 146 H 154 H (70-110) mg/dL Calcium (8.4-10.2) mg/dL AST (17-59) U/L Alkaline Phosphatase (38-126) U/L Total Protein (6.3-8.2) g/dL Albumin (3.5-5.0) g/dL Procalcitonin 0.34 H (0.02-0.09) ng/mL 01/26/22 01/26/22 Range/Units 05:52 05:52 RBC 2.88 L (4.30-5.90) m/uL Hgb 8.5 L (13.0-17.5) gm/dL Hct 27.7 L (39.0-53.0) % MCHC 30.5 L (31.0-37.0) g/dL RDW 19.5 H (11.5-15.5) % Plt Count 605 H (150-450) k/uL Lymphocytes # (Manual) 0.93 L (1.0-4.8) k/uL Nucleated RBCs 1 H (0-0) /100 WBC Chloride 96 L (98-107) mmol/L Carbon Dioxide 38 H (22-30) mmol/L Glucose 158 H (74-99) mg/dL POC Glucose (mg/dL) (70-110) mg/dL Calcium 8.3 L (8.4-10.2) mg/dL AST 71 H (17-59) U/L Alkaline Phosphatase 231 H (38-126) U/L Total Protein 5.3 L (6.3-8.2) g/dL Albumin 2.4 L (3.5-5.0) g/dL Procalcitonin (0.02-0.09) ng/mL Microbiology - Last 24 Hours (Table) 01/24/22 19:35 Blood Culture Gram Stain - Preliminary Blood 01/24/22 19:35 Blood Culture - Final Blood 01/24/22 19:50 Blood Culture - Preliminary Blood No Growth after 24 hours Assessment and Plan Plan: Acute mental status change, likely due to encephalopathy and hypoxemia and possibly hypercapnia , recovered Acute hypoxic respiratory failure, currently on a BiPAP at a pressure of 16/8 cm of water and FiO2 of 65%. Chest x-ray showing bilateral pleural effusion and possible infiltrate in lung bases bilaterally. Rule out underlying aspiration. Rule out underlying hospital-acquired pneumonia. Currently off the BiPAP and currently on 4 L of O2 nasal cannula. The patient is being diuresis with IV Lasix with adequate urine output. Failure to thrive and the patient was given a PEG tube for enteral feeding and is support Running hypotension. The patient recovered from his acute septic shock during his last admission. No clear indication for an abdominal abscess. The patient is currently on low-dose pressors and norepinephrine is running at 0.02 microvascular kilogram per minute. There is a 1 set of blood cultures is growing gram-positive cocci and the patient is going to receive a dose of vancomycin. Recent gangrenous cholecystitis with a right cholecystectomy, open. There is a collection in the gallbladder fossa which is most likely benign. Abdominal exam is benign and the patient is not having any abnormalities in liver function tests. 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 Hypoalbuminemia with a serum albumin of 2.5 History morbid obesity with ongoing weight loss Diabetes mellitus type 2 Bronchial asthma, chronic unspecified/COPD Diabetes mellitus type 2 Obstructive sleep apnea BPH Hypertension Hyperlipidemia Previous history of C. diff colitis, repeat stool for C. diff has been negative Generalized debility due to his medical condition and the patient has been senior living resident following his surgery Anemia , chronic and Hb is curreently at 9.2 Plan Patient is presenting with acute hypoxic respiratory failure, currently on BiPAP and the patient is able to tolerate the BiPAP reasonably well. He does have bilateral lower lobe opacities and pleural effusions. Consider aspiration.. For now, the patient responded to diuresis and antibiotics and the patient's Coumadin IV Zosyn. Put the patient on BiPAP on and off if needed, currently on 4 L of O2 nasal cannula Obtain a pro-calcitonin level Has a blood culture with gram-positive cocci. We'll given a dose of vancomycin pending further cultures. Continued IV Zosyn for now. Continue Lasix 40 mg every 8 hours and the patient is producing significant amount of urine output Wound care and consult on services Continue enteral feeding for nutritional support and the patient is currently on Glucerna. Awaiting wound services Continue anticoagulation with Eliquis DNR/DNI CODE STATUS Very poor baseline performance and functional status with extensive comorbidities and abilities. Moreover into the intensive care unit for now. We'll see this patient along with aggressive the consultants.
[2022-01-26] MEDS: FAMOTIDINE 20 MG TAB PO SCH ×2 (11:05→17:47)
[2022-01-26] MEDS: APIXABAN 5 MG TAB PO SCH ×2 (11:05→21:07)
[2022-01-26] MEDS: CHOLECALCIFEROL 25 MCG (1000 IU) TABLET PO SCH (11:05)
[2022-01-26] MEDS: FOLIC ACID 1 MG TAB PO SCH (11:05)
[2022-01-26] MEDS: ASCORBIC ACID 500 MG TAB PO SCH (11:05)
[2022-01-26] MEDS: TAMSULOSIN 0.4 MG CAP.ER.24H PO SCH (11:05)
[2022-01-26] MEDS: MULTIVITAMINS, THERA 1 EACH TAB PO SCH (11:05)
[2022-01-26] MEDS: METOPROLOL TARTRATE 12.5 MG TAB PO SCH ×3 (11:06→21:08)
[2022-01-26 12:15] LABS: Glucose,Whole Blood 141 mg/dL (70-110)
[2022-01-26] MEDS: MAGNESIUM SULFATE-D5W PMX 1 GM in DEXTROSE/WATER 1 100ML.BAG IVPB SCH ×2 (13:30→17:48)
[2022-01-26] MEDS: VANCOMYCIN 1,750 MG in SODIUM CHLORIDE 0.9% 500 ML 500 ML IVPB SCH (13:31)
[2022-01-26] MEDS: LACTULOSE 20 GM/30 ML CUP PO SCH (13:31)
--- NOTE | 2022-01-26 13:55 | P.PN ---
Subjective Progress Note Date: 01/26/22 The patient is seen at bedside and is off BiPAP and feels more refreshed. Per nurse he is more awake and responsive. ICU team felt his encephalopathy due to hypoxemia and possible hypercapnia Objective - Vital Signs Vital signs: Vital Signs Temp 98.1 F 01/26/22 12:00 Pulse 85 01/26/22 13:00 Resp 16 01/26/22 13:00 BP 95/60 01/26/22 13:00 Pulse Ox 100 01/26/22 13:00 FiO2 35 01/26/22 08:33 Intake & Output 01/25/22 01/26/22 01/26/22 18:59 06:59 18:59 Intake Total 141.429 443.639 288.789 Output Total 1550 840 810 Balance -1408.571 -396.361 -521.211 Weight 95.254 kg 103.3 kg Intake: IV 140 340 140 0.9 40 240 140 Piperacillin-Tazobactam 3 100 100 .375 gm In Sodium Chloride 0.9% 100 ml @ 25 mls/hr IVPB Q8HR ERINN Rx# :[id number] Intake, IV Titration 1.429 103.639 148.789 Amount Dexmedetomidine/0.9% NaCl 1.429 77.630 19.227 (Pmx) 400 mcg In Empty Bag 1 bag @ 0.2 MCG/KG/HR 4.763 mls/hr IV .Q21H ERINN Rx#:[id number] Norepinephrine 4 mg In 26.009 129.562 Sodium Chloride 0.9% 250 ml @ 0.05 MCG/KG/MIN 18. 146 mls/hr IV .Q14H ERINN Rx#:[id number] Output: Urine 1550 840 810 Other: Voiding Method Indwelling Catheter Indwelling Catheter # Bowel Movements 1 1 - Exam GENERAL: The patient is lying in bed and is not in acute distress. NEUROLOGICAL: Higher mental function: The patient is more awake and responsive. He correctly stated his name. He continue to state it was December but correctly stated the year and stated he was in hospital. He is following simple commands. Cranial nerves: The pupils are round, equal and reactive to light. No facial weakness. No dysarthria. Motor: The strength is stronger over uppers >>lowers. Uppers are 4+to 5- while lowers has proximal 1-2 and wiggles his toes. Sensation: Sensation is normal to touch throughout. Reflexes (right/left): 1-2+ in uppers while lowers were hard to assess. Patient had edema in lower extremities. Plantars are mute bilaterally. - Labs CBC & Chem 7: 01/26/22 05:52 01/26/22 05:52 Labs: Abnormal Lab Results - Last 24 Hours (Table) 01/25/22 01/25/22 01/26/22 Range/Units 07:57 16:44 05:52 RBC 2.88 L (4.30-5.90) m/uL Hgb 8.5 L (13.0-17.5) gm/dL Hct 27.7 L (39.0-53.0) % MCHC 30.5 L (31.0-37.0) g/dL RDW 19.5 H (11.5-15.5) % Plt Count 605 H (150-450) k/uL Lymphocytes # (Manual) 0.93 L (1.0-4.8) k/uL Nucleated RBCs 1 H (0-0) /100 WBC Chloride (98-107) mmol/L Carbon Dioxide (22-30) mmol/L Glucose (74-99) mg/dL POC Glucose (mg/dL) 154 H (70-110) mg/dL Calcium (8.4-10.2) mg/dL AST (17-59) U/L Alkaline Phosphatase (38-126) U/L Total Protein (6.3-8.2) g/dL Albumin (3.5-5.0) g/dL Procalcitonin 0.34 H (0.02-0.09) ng/mL 01/26/22 01/26/22 Range/Units 05:52 12:13 RBC (4.30-5.90) m/uL Hgb (13.0-17.5) gm/dL Hct (39.0-53.0) % MCHC (31.0-37.0) g/dL RDW (11.5-15.5) % Plt Count (150-450) k/uL Lymphocytes # (Manual) (1.0-4.8) k/uL Nucleated RBCs (0-0) /100 WBC Chloride 96 L (98-107) mmol/L Carbon Dioxide 38 H (22-30) mmol/L Glucose 158 H (74-99) mg/dL POC Glucose (mg/dL) 141 H (70-110) mg/dL Calcium 8.3 L (8.4-10.2) mg/dL AST 71 H (17-59) U/L Alkaline Phosphatase 231 H (38-126) U/L Total Protein 5.3 L (6.3-8.2) g/dL Albumin 2.4 L (3.5-5.0) g/dL Procalcitonin (0.02-0.09) ng/mL Microbiology - Last 24 Hours (Table) 01/24/22 19:35 Blood Culture Gram Stain - Preliminary Blood 01/24/22 19:35 Blood Culture - Final Blood 01/24/22 19:50 Blood Culture - Preliminary Blood No Growth after 24 hours Assessment and Plan Assessment: Altered mental status due to multifactorial: Encephalopathy seems due to hepatic and hypoxemic encephalopathy---improving Acute congestive heart failure exacerbation Type 2 diabetes Hypertension currently controlled. History of COVID-19 Generalized weakness (mostly lowers than uppers) and was felt mostly due to critical illness myopathy/neuropathy Hyperlipidemia DVT right lower extremity sleep apnea COPD Sacral decubitus ulcer with chronic indwelling Smith catheter Plan: Patient is on lactulose and we'll defer the management to the primary team. Patient had vitamin B12 and TSH in 12/2021 and was normal and does not need to be repeated. An EEG is not warranted at this time since it does not seem like a seizure and his mentation is improving. Patient had multiple EEGs in the past as well as a prolonged EEG and a prolonged EEG was negative for seizures. Cardiology is on board We'll defer the rest of the medical management to the primary and ICU team. The plan is discussed with his nurse. No additional work-up. Please notify neurology team if any further concerns. Florencio Ulloa M.D. Neuro-hospitalist Time with Patient: Less than 30
--- NOTE | 2022-01-26 17:00 | P.PN ---
Progress Note - Text Progress Note Date: 01/26/22 Chief Complaint: Altered mental status Hospital course: this is a pleasant 61 yo M with past medical history of COPD, Diabetes Mellitus, Deep Vein Thrombosis, Hyperlipidemia, Hypertension, Sleep Apnea/CPAP/BIPAP He was in the hospital on 09/2021 for severe hypotension from decreased oral intake, acute metabolic encephalopathy, chronic congestive heart failure, diastolic with ejection fraction 55-60%, acute kidney injury, sinus tachycardia, status post cholecystectomy for his gangrenous cholecystitis, restless leg syndrome, BPH, chronic medical debility , he was [facility]iary since June 2021. At that time was in the hospital for acute hypoxic respiratory failure of unknown causes. needed intubation then. He had complete opacification in the left hemithorax he had 2 bronchoscopy done which was negative for microbial growth. another admission on 09/2021. Patient was recently in the hospital from December 31 through January 21/2022 he came here because he wanted to get the PEG tube because he was not eating anything since June and he lost a lot of weight he used to weigh 333 pounds and now 193. He states that his main issue is no appetite, he denies choking but he has sometimes nausea that prevent him from eating. has unstageable pressure decubitus ulcer status post debridement, he has wound VAC in place. Patient was treated for hypertensive shock and required levo fed. Was placed on midodrine. Also acute metabolic encephalopathy. Was found to have a complex region around the liver. Liver with CT scans ruled out any abscess or hematoma. Patient getting eliquis for right leg DVT. Patient had had significant bleeding from Lovenox and eliquis was being resume outpatient. Patient had had significant drop in hemoglobin. Was transfused blood. Patient also was on Lasix. Also treated with TPN and lipids for protein calorie malnutrition. Patient initially refused PEG tube for a long time and he was placed on January 18. 2 feeding was started. Patient was reluctant to eat prior to discharge. Patient is awake, communicative. Patient was sent in for altered mental status. Was found to be hypoxic in the ER. Suggestive of CHF and fluid overload. Given IV Lasix. Over thousand cc overnight. Started on IV Zosyn. Patient has been getting 2 feeding at the [facility]. Ammonia was elevated. Patient somewhat lethargic. Not able to give any history. is here at night has gone home to sleep. Admitted with acute metabolic encephalopathy with delirium/acute hypoxic respiratory failure from CHF/aspiration pneumonia/hepatic encephalopathy/. Started on IV Zosyn, aspiration precautions, lactulose. IV Lasix. January 26: ICU: Patient on IV Lasix 40 mg every 8. Making good urine. Pulse ox 100% on 2 L. Patient awake. Had several BMs yesterday with lactulose. Awake communicating. Edema has gone down. Decrease Lasix to every 12. Patient was taken on levo fed this morning. Blood cultures come back positive for gram- positive cocci. Put on vancomycin. Could be contaminant. Chest x-ray much improved Active Medications Acetaminophen (Acetaminophen Tab 325 Mg Tab) 650 mg PO Q6H PRN PRN Reason: Pain Albuterol/Ipratropium (Ipratropium-Albuterol 3 Ml Neb) 3 ml INHALATION RT-QID [facility] Last Admin: 01/26/22 15:27 Dose: 3 ml Apixaban (Apixaban 5 Mg Tab) 5 mg PO BID [facility]; Protocol Last Admin: 01/26/22 11:05 Dose: 5 mg Ascorbic Acid (Ascorbic Acid 500 Mg Tab) 500 mg PO DAILY [facility] Last Admin: 01/26/22 11:05 Dose: 500 mg Cholecalciferol (Cholecalciferol 25 Mcg (1000 Iu) Tablet) 25 mcg PO DAILY [facility] Last Admin: 01/26/22 11:05 Dose: 25 mcg Collagenase (Collagenase 250 Unit/Gm Ointment 30 Gm Tube) 1 applic TOPICAL DAILY [facility]; Protocol Famotidine (Famotidine 20 Mg Tab) 20 mg PO BID@0800,1600 [facility] Last Admin: 01/26/22 11:05 Dose: 20 mg Folic Acid (Folic Acid 1 Mg Tab) 1 mg PO DAILY [facility] Last Admin: 01/26/22 11:05 Dose: 1 mg Furosemide (Furosemide 10 Mg/Ml 4 Ml Vial) 40 mg IV Q12H [facility] Gabapentin (Gabapentin 100 Mg Cap) 100 mg PO HS [facility] Last Admin: 01/25/22 20:58 Dose: 100 mg Piperacillin Sod/Tazobactam (Sod 3.375 gm/ Sodium Chloride) 100 mls @ 25 mls/hr IVPB Q8HR [facility]; Protocol Last Admin: 01/26/22 11:00 Dose: 25 mls/hr Dexmedetomidine HCl 400 mcg/ (IV Solution) 100 mls @ 4.763 mls/hr IV .Q21H [facility]; Protocol Last Titration: 01/26/22 11:05 Dose: 0 mcg/kg/hr, 0 mls/hr Norepinephrine Bitartrate 4 mg (/ Sodium Chloride) 254 mls @ 18.146 mls/hr IV .Q14H [facility]; Protocol Last Titration: 01/26/22 11:32 Dose: 0 mcg/kg/min, 0 mls/hr Vancomycin HCl 1,750 mg/ (Sodium Chloride) 500 mls @ 167 mls/hr IVPB Q12H [facility] Last Admin: 01/26/22 13:31 Dose: 167 mls/hr Lactulose (Lactulose 20 Gm/30 Ml Cup) 10 gm PO DAILY [facility] Metoprolol Tartrate (Metoprolol Tartrate 12.5 Mg Tab) 12.5 mg PO TID [facility] Last Admin: 01/26/22 11:06 Dose: 12.5 mg Midodrine (Midodrine 5 Mg Tab) 5 mg PO AC-TID [facility] Last Admin: 01/26/22 13:33 Dose: 5 mg Miscellaneous Information (Potassium Replacement Protocol 1 Each Misc) 1 each MISCELLANE DAILY PRN; Protocol PRN Reason: Per Protocol Miscellaneous Information (Magnesium Replacement Protocol 1 Each Misc) 1 each MISCELLANE DAILY PRN; Protocol PRN Reason: Per Protocol Miscellaneous Information (Vancomycin Iv Per Pharmacy 1 Each Misc) 0 each MISCELLANE DIRECTED PRN PRN Reason: PER PROTOCOL Multivitamins (Multivitamins, Thera 1 Each Tab) 1 each PO DAILY [facility] Last Admin: 01/26/22 11:05 Dose: 1 each Naloxone HCl (Naloxone 0.4 Mg/Ml 1 Ml Vial) 0.2 mg IV Q2M PRN PRN Reason: Opioid Reversal Promethazine HCl (Promethazine 25 Mg Tab) 12.5 mg PO Q12H PRN PRN Reason: Nausea Ropinirole HCl (Ropinirole Hcl 1 Mg Tab) 1 mg PO HS [facility] Last Admin: 01/25/22 20:58 Dose: 1 mg Tamsulosin HCl (Tamsulosin 0.4 Mg Cap.Er.24h) 0.4 mg PO DAILY [facility] Last Admin: 01/26/22 11:05 Dose: 0.4 mg Past medical history to include: Right leg DVT, anorexia, chronic decubitus ulcer, anemia of chronic disease, hyperlipidemia, COPD, CHF with EF of 55-60%, restless leg syndrome, BPH, chronic medical debility, moderate protein calorie malnutrition, PEG tube, MEREDITH uses CPAP, herniated disc as disc injections, Social history: . Currently a resident at [facility]. Has a Regine lift to a wheelchair. Alcohol rarely. No smoking. Family history: Macular degeneration, skin cancer On examination: VITAL SIGNS: 98.1, 93, 20, 94/58, 100% on 2 L GENERAL APPEARANCE: Laying in bed, awake, communicating HEENT: Normal external appearance of nose and ear. Oral cavity normal EYES: Pupils equal. Conjunctiva normal. NECK: JVD unable to assess. Mass not palpable. RESPIRATORY: Respiratory effort increased. Decreased breath sounds CARDIOVASCULAR: First and second sounds normal. Some edema. ABDOMEN: Soft. Liver and spleen not palpable. No tenderness. No mass palpable. PEG tube PSYCHIATRY: Answering questions appropriately, tired LYMPHATICS: No lymph nodes palpable neck and axilla Muscular skeletal: Stage IV pressure ulcer left buttock. INVESTIGATIONS, reviewed in the clinical context: January 26: White count 6.2 hemoglobin 8.5 platelets 605 potassium 3.6 creatinine 0.97 AST 71 ALT 47 albumin 2.4. Pro-calcitonin 0.34 January 25: White count 6.2 hemoglobin 9.2 platelets 535 sodium 138 progression 3.9 creatinine 0.84 AST 106 ALT 60 alkaline phosphatase 250 ammonia 36 albumin 2.5 Chest x-ray film personally reviewed by me-pulmonary edema, possible infiltrate EKG tracing personally reviewed by me-normal sinus rhythm. Right bundle branch block. Rate 94 Previous testing January 20: WBC 4.9 hemoglobin 7.8. His 257 potassium 3.4 creatinine 0.84 albumin 1.9 LIVER: ULTRASOUND:. PRIOR CHOLECYSTECTOMY. COMPLEX AREA SEEN IN THE GALLBLADDER FOSSA. CONTAINING A FEW BUBBLES. CT abdomen: Persistent heterogenous hyperdense area in the hepatic parenchyma adjacent to the gallbladder fossa. Limited 2-D echocardiogram: Normal LV function. Ultrasound venous Doppler: Positive DVT right lower extremity. Assessment and plan: -Acute metabolic encephalopathy with delirium, likely a combination of hypoxia and pneumonia: Better -Acute hypoxic respiratory failure from CHF, aspiration pneumonia: Better Supplement oxygen -Probable hepatic encephalopathy with somewhat elevated ammonia: Better Decrease Lactulose 10 g daily -Possible aspiration pneumonia IV Zosyn -Complex liver collection adjacent to gallbladder fossa 2.7 cm Repeat computed tomography scan not suggestive of abscess/hematoma . Not for any further intervention. This was worked up on last admission -Acute right leg DVT Eliquis -Unstageable chronic decubitus ulcer - wound VAC to continue. Consult wound care team -Anemia of chronic diseases Hyperlipidemia -COPD DuoNeb 4 times a day -Acute on Chronic congestive heart failure with ejection fraction 55-60% IV Lasix 40 mg every 12. Strict I's and O's. -Restless leg syndrome -BPH Flomax . -Chronic medical debility Nonambulatory. Requires Regine lift. -Moderate protein calorie malnutrition from poor oral intake peg tube placed January 18. . PEG tube feeding to be coordinated by dietitian -Chronic hypotension Increase midodrine to 10 mg 3 times a day. Levo fed discontinued this morning DO NOT RESUSCITATE On 2 L nasal cannula with a pulse ox of 100%. Cut back Lasix to 40 mg every 12. Hold water through tube feeding. 2 feeding to be advanced. Cut back dose of lactulose. Increase midodrine to 10 mg 3 times a day. Discussed with patient. And family at the bedside.
[2022-01-26] MEDS: GABAPENTIN 100 MG CAP PO SCH (21:08)
[2022-01-27] MEDS: PIPERACILLIN-TAZOBACTAM 3.375 GM in SODIUM CHLORIDE 0.9% 100 ML IVPB SCH ×3 (00:18→15:15)
[2022-01-27] MEDS: NOREPINEPHRINE 4 MG in SODIUM CHLORIDE 0.9% 250 ML IV SCH ×2 (00:19→06:39)
[2022-01-27] MEDS: VANCOMYCIN 1,750 MG in SODIUM CHLORIDE 0.9% 500 ML 500 ML IVPB SCH ×2 (00:20→18:32)
[2022-01-27] MEDS: MIDODRINE 5 MG TAB PO SCH ×3 (06:32→15:13)
[2022-01-27] MEDS: IPRATROPIUM-ALBUTEROL 3 ML NEB INHALATION SCH ×4 (07:23→20:57)
[2022-01-27] MEDS: LACTULOSE 20 GM/30 ML CUP PO SCH (08:22)
[2022-01-27] MEDS: APIXABAN 5 MG TAB PO SCH ×2 (08:23→20:39)
[2022-01-27] MEDS: MULTIVITAMINS, THERA 1 EACH TAB PO SCH (08:23)
[2022-01-27] MEDS: TAMSULOSIN 0.4 MG CAP.ER.24H PO SCH (08:23)
[2022-01-27] MEDS: CHOLECALCIFEROL 25 MCG (1000 IU) TABLET PO SCH (08:23)
[2022-01-27] MEDS: FUROSEMIDE 10 MG/ML 4 ML VIAL IV SCH ×2 (08:23→20:39)
[2022-01-27] MEDS: ASCORBIC ACID 500 MG TAB PO SCH (08:23)
[2022-01-27] MEDS: FOLIC ACID 1 MG TAB PO SCH (08:23)
[2022-01-27] MEDS: FAMOTIDINE 20 MG TAB PO SCH ×2 (08:23→15:13)
[2022-01-27] MEDS: METOPROLOL TARTRATE 12.5 MG TAB PO SCH ×3 (08:30→20:39)
[2022-01-27 10:45] LABS: Anisocytosis Slight; Basophils % (A) 1 %; Eosinophils # (A) 0.1 k/uL (0-0.7); Eosinophils % (A) 3 %; HCT 24.9 % (39.0-53.0); HGB 7.5 gm/dL (13.0-17.5); Hypochromasia Moderate; Lymphocytes # (A) 0.8 k/uL (1.0-4.8); Lymphocytes % (A) 18 %; MCH 28.4 pg (25.0-35.0); MCHC 30.1 g/dL (31.0-37.0); MCV 94.4 fL (80.0-100.0); Macrocytosis Slight; Mean Platelet Volume 8.1; Monocytes # (A) 0.2 k/uL (0-1.0); Monocytes % (A) 4 %; Neutrophils # (A) 3.3 k/uL (1.3-7.7); Neutrophils % (A) 74 %; Platelet Count 508 k/uL (150-450); RBC 2.64 m/uL (4.30-5.90); RDW 19.7 % (11.5-15.5); WBC 4.5 k/uL (3.8-10.6)
[2022-01-27 10:53] LABS: African American GFR (CKD) >90 (>60 ml/min/1.73 sqM); Anion Gap -1 mmol/L; Blood Urea Nitrogen 17 mg/dL (9-20); Calcium 7.6 mg/dL (8.4-10.2); Carbon Dioxide 39 mmol/L (22-30); Chloride 98 mmol/L (98-107); Glucose 112 mg/dL (74-99); Non-African American GFR(CKD) 90 (>60 ml/min/1.73 sqM); Potassium 3.1 mmol/L (3.5-5.1); Sodium 136 mmol/L (137-145)
--- NOTE | 2022-01-27 13:45 | P.PN ---
Subjective Progress Note Date: 01/27/22 Hospital course: this is a pleasant 61 yo M with past medical history of COPD, Diabetes Mellitus, Deep Vein Thrombosis, Hyperlipidemia, Hypertension, Sleep Apnea/CPAP/BIPAP He was in the hospital on 09/2021 for severe hypotension from decreased oral intake, acute metabolic encephalopathy, chronic congestive heart failure, diastolic with ejection fraction 55-60%, acute kidney injury, sinus tachycardia, status post cholecystectomy for his gangrenous cholecystitis, restless leg syndrome, BPH, chronic medical debility , he was halfway since June 2021. At that time was in the hospital for acute hypoxic respiratory failure of unknown causes. needed intubation then. He had complete opacification in the left hemithorax he had 2 bronchoscopy done which was negative for microbial growth. another admission on 09/2021. Patient was recently in the hospital from December 31 through January 21/2022 he came here because he wanted to get the PEG tube because he was not eating anything since June and he lost a lot of weight he used to weigh 333 pounds and now 193. He states that his main issue is no appetite, he denies choking but he has sometimes nausea that prevent him from eating. has unstageable pressure decubitus ulcer status post debridement, he has wound VAC in place. Patient was treated for hypertensive shock and required levo fed. Was placed on midodrine. Also acute metabolic encephalopathy. Was found to have a complex region around the liver. Liver with CT scans ruled out any abscess or hematoma. Patient getting eliquis for right leg DVT. Patient had had significant bl eeding from Lovenox and eliquis was being resume outpatient. Patient had had significant drop in hemoglobin. Was transfused blood. Patient also was on Lasix. Also treated with TPN and lipids for protein calorie malnutrition. Patient initially refused PEG tube for a long time and he was placed on January 18. 2 feeding was started. Patient was reluctant to eat prior to discharge. Patient is awake, communicative. Patient was sent in for altered mental status. Was found to be hypoxic in the E [facility]. Suggestive of CHF and fluid overload. Given IV Lasix. Over thousand cc overnight. Started on IV Zosyn. Patient has been getting 2 [facility] the [facility] Ammonia was elevated. Patient somewhat lethargic. Not able to give any history. is here at night has gone home to sleep. Admitted with acute metabolic encephalopathy with delirium/acute hypoxic respiratory failure from CHF/aspiration pneumonia/hepatic encephalopathy/. Started on IV Zosyn, aspiration precautions, lactulose. IV Lasix. January 26: ICU: Patient on IV Lasix 40 mg every 8. Making good urine. Pulse ox 100% on 2 L. Patient awake. Had several BMs yesterday with lactulose. Awake communicating. Edema has gone down. Decrease Lasix to every 12. Patient was taken on levo fed this morning. Blood cultures come back positive for gram- positive cocci. Put on vancomycin. Could be contaminant. Chest x-ray much improved 01/27/2022 Patient evaluated today in the intensive care unit. Plan is to downgrade this afternoon out of the ICU. Patient denies pain, no shortness of breath, no cough. Continues on enteral tube feeds, no nausea or vomiting. Last BM 2 days ago. His mentation has improved. Lasix has been decreased to 40 mg Q12 IV. He continues off levophed and has been resumed on midodrine 5 mg TID. Blood pressure today mid 90's over 60's, he is afebrile. on 2L nasal cannula with oxygen saturation 100%. He continues on IV zosyn. Blood culture showing coagulase negative staph, culture x 2 taken at the same time showing negative. This is most likely contaminent. Patient is ordered to have wound care applied to stage 4 sacral decub which will be done today. Was using santyl at home for local wound care, he is pending re-eval on addition sacral ulcers for further wound care orders. Past medical history to include: Right leg DVT, anorexia, chronic decubitus ulcer, anemia of chronic disease, hyperlipidemia, COPD, CHF with EF of 55-60%, restless leg syndrome, BPH, chronic medical debility, moderate protein calorie malnutrition, PEG tube, MEREDITH uses CPAP, herniated disc as disc injections, Social history: . Currently a resident at [facility]. Has a Regine lift to a wheelchair. Alcohol rarely. No smoking. Family history: Macular degeneration, skin cancer On examination: VITAL SIGNS: 98.1, 93, 20, 94/58, 100% on 2 L GENERAL APPEARANCE: Laying in bed, awake, communicating HEENT: Normal external appearance of nose and ear. Oral cavity normal EYES: Pupils equal. Conjunctiva normal. NECK: JVD unable to assess. Mass not palpable. RESPIRATORY: Respiratory effort increased. Decreased breath sounds CARDIOVASCULAR: First and second sounds normal. Some edema. ABDOMEN: Soft. Liver and spleen not palpable. No tenderness. No mass palpable. PEG tube PSYCHIATRY: Answering questions appropriately, tired LYMPHATICS: No lymph nodes palpable neck and axilla Muscular skeletal: Stage IV pressure ulcer left buttock. INVESTIGATIONS, reviewed in the clinical context: January 27: white count 4.5, hgb 7.5, platelets 508, sodium 136, potassium 3.1, CO2 39, glucose 112, calcium 7.6, magnesium 2.0. January 26: White count 6.2 hemoglobin 8.5 platelets 605 potassium 3.6 creatinine 0.97 AST 71 ALT 47 albumin 2.4. Pro-calcitonin 0.34 January 25: White count 6.2 hemoglobin 9.2 platelets 535 sodium 138 progression 3.9 creatinine 0.84 AST 106 ALT 60 alkaline phosphatase 250 ammonia 36 albumin 2.5 Chest x-ray film personally reviewed by me-pulmonary edema, possible infiltrate EKG tracing personally reviewed by me-normal sinus rhythm. Right bundle branch block. Rate 94 Previous testing January 20: WBC 4.9 hemoglobin 7.8. His 257 potassium 3.4 creatinine 0.84 albumin 1.9 LIVER: ULTRASOUND:. PRIOR CHOLECYSTECTOMY. COMPLEX AREA SEEN IN THE GALLBLADDER FOSSA. CONTAINING A FEW BUBBLES. CT abdomen: Persistent heterogenous hyperdense area in the hepatic parenchyma adjacent to the gallbladder fossa. Limited 2-D echocardiogram: Normal LV function. Ultrasound venous Doppler: Positive DVT right lower extremity. Assessment and plan: -Acute metabolic encephalopathy with delirium, likely a combination of hypoxia and pneumonia: Improved. -Acute hypoxic respiratory failure from CHF, aspiration pneumonia: Improved Continues on 2L nasal cannula, continues on IV lasix Q12, IV zosyn -Probable hepatic encephalopathy with somewhat elevated ammonia: Better Decrease Lactulose 10 g daily -Possible aspiration pneumonia IV Zosyn -Complex liver collection adjacent to gallbladder fossa 2.7 cm Repeat computed tomography scan not suggestive of abscess/hematoma . Not for any further intervention. This was worked up on last admission -Acute right leg DVT Eliquis -Hypokalemia secondary to diuresis Replace potassium per protocol -Unstageable chronic decubitus ulcer - wound VAC to continue. Consult wound care team, pending additional orders -Anemia of chronic diseases Monitor hemoglobin, repeat levels tomorrow -Hyperlipidemia -COPD DuoNeb 4 times a day -Acute on Chronic congestive heart failure with ejection fraction 55-60% IV Lasix 40 mg every 12. Strict I's and O's. -Restless leg syndrome -BPH Flomax . -Chronic medical debility Nonambulatory. Requires Regine lift. -Moderate protein calorie malnutrition from poor oral intake peg tube placed January 18. . PEG tube feeding to be coordinated by dietitian -Chronic hypotension Increase midodrine to 10 mg 3 times a day. Continue on Levophed monitor blood pressure closely DO NOT RESUSCITATE On 2 L nasal cannula with a pulse ox of 100%. Continues on IV lasix Q12 hours. Hold water through tube feeding. Enteral feeding to be advanced. Cut back dose of lactulose. Increase midodrine to 10 mg 3 times a day. Supplement potassium and recheck this afternoon. Replace per protocol. Plan to be downgraded from in tensive care today. Discussed with patient. The impression and plan of care has been dictated by Emilia Rosenbaum, Nurse Practitioner as directed. Dr. April MD I have performed a history and physical examination and medical decision making of this patient, discussed the same with the dictator, and agree with the dictators assessment and plan as written, documented as a scribe. Based on total visit time, I have performed more than 50% of this visit. Objective - Vital Signs Vital signs: Vital Signs Temp 98.4 F 01/27/22 12:00 Pulse 98 01/27/22 12:30 Resp 11 L 01/27/22 12:30 BP 86/57 01/27/22 12:30 Pulse Ox 100 01/27/22 12:30 FiO2 30 01/27/22 06:00 Intake & Output 01/26/22 01/27/22 01/27/22 18:59 06:59 18:59 Intake Total 5320.572 7405.613 418.957 Output Total 1195 1105 841 Balance 244.789 773.613 -422.043 Weight 103.3 kg Intake: IV 891 860 140 0.9 190 260 Magnesium Sulfate-D5w Pmx 100 1 gm In Dextrose/Water 1 100ml.bag @ 100 mls/hr IVPB Q1H [facility] Rx#: [id number] Piperacillin-Tazobactam 3 100 100 140 .375 gm In Sodium Chloride 0.9% 100 ml @ 25 mls/hr IVPB Q8HR [facility] Rx# :[id number] Vancomycin 1,750 mg In 501 500 Sodium Chloride 0.9% 500 ml 500 ml @ 167 mls/hr IVPB Q12H [facility] Rx#: [id number] Intake, IV Titration 148.789 88.613 68.957 Amount Dexmedetomidine/0.9% NaCl 19.227 (Pmx) 400 mcg In Empty Bag 1 bag @ 0.2 MCG/KG/HR 4.763 mls/hr IV .Q21H [facility] Rx#:[id number] Norepinephrine 4 mg In 129.562 88.613 68.957 Sodium Chloride 0.9% 250 ml @ 0.05 MCG/KG/MIN 18. 146 mls/hr IV .Q14H [facility] Rx#:[id number] Tube Feeding 400 780 210 Other 150 Output: Urine 1195 1105 841 Other: Voiding Method Indwelling Catheter Indwelling Catheter Indwelling Catheter - Labs CBC & Chem 7: 01/27/22 05:41 01/27/22 05:41 Labs: Abnormal Lab Results - Last 24 Hours (Table) 01/27/22 01/27/22 Range/Units 05:41 05:41 RBC 2.64 L (4.30-5.90) m/uL Hgb 7.5 L (13.0-17.5) gm/dL Hct 24.9 L (39.0-53.0) % MCHC 30.1 L (31.0-37.0) g/dL RDW 19.7 H (11.5-15.5) % Plt Count 508 H (150-450) k/uL Lymphocytes # 0.8 L (1.0-4.8) k/uL Sodium 136 L (137-145) mmol/L Potassium 3.1 L (3.5-5.1) mmol/L Carbon Dioxide 39 H (22-30) mmol/L Glucose 112 H (74-99) mg/dL Calcium 7.6 L (8.4-10.2) mg/dL Microbiology - Last 24 Hours (Table) 01/24/22 19:50 Blood Culture - Preliminary Blood No Growth after 48 hours 01/24/22 19:35 Blood Culture Gram Stain - Preliminary Blood Blood Culture - Preliminary Coagulase Negative Staph Assessment and Plan Time with Patient: Less than 30
--- NOTE | 2022-01-27 13:46 | P.PN ---
Subjective Progress Note Date: 01/27/22 61-year-old male patient with a complicated medical history, came in to the emergency department today after being discharged to a shelter approximately 3 days ago. The patient was found to have altered mentation and he was found to be lethargic and was sent and was having more shortness of breath. I was told that the patient was discharged home on room air oxygen and he was not requiring any oxygen supplementation. The time of his arrival to the emergency department, the patient was having labored breathing and was tachypneic and he was given a chest x-ray that showed bilateral pleural eff usions which are essentially chronic. No reported aspiration. The PEG tube, however, I was also informed that was taken food orally. He was immediately placed on a BiPAP at a pressure of 16/8 cm of water and FiO2 of 65%. He was started on IV Lasix 40 mg every 8 hours. He has diuresed more than 2 L for now. He is already feeling better. His white cell count of 5.9 with hemoglobin 10.8 and a platelet count of 443. The patient's BUN of 50 with a 0.8 His Sodium Level of 134. Correlation Profile Was Essentially within Normal Limits. The Patient Also Had a Normal UA, Normal Urine Drug Screen, Albumin Level Is Improved and Is up to 2.4 with a total protein of 5.6. AST is 73, ALT 50, alk chente phosphatase is at 229 and the patient has a lactic acid level of 0.9. Potassium level is at 8.4. Ammonia level is at 40. He is arousable. He is talking. He is profoundly weak in his legs and the patient has been drop bilaterally. He is moving his arms against gravity and his motor function is around 3-4 out of 5 and symmetrical in both upper extremities. A repeat computed tomography scan of the brain was done and was negative. Chest x-ray showed pulmonary vascular congestion and bilateral pleural effusion. On today's evaluation of 01/26/2022, the patient is awake and alert and the patient is following commands and answering questions appropriately. He is still profoundly weak. His breathing is nonlabored. He spent the night on BiPAP at a pressure of 16/8 cm of water and currently is on 4 L of Oxymizer nasal cannula. He remains on IV Lasix and the patient's fluid balance is been - 1.8 L over the past 24 hours. Chest x-ray is showing bilateral pleural effusions, essentially unchanged compared to yesterday. The patient is responding to diuresis. The patient was also methadone IV Zosyn. This was covering for aspiration. Blood culture one set sleeve turner to be positive for gram-positive cocci and the patient will be given a dose of vancomycin. The patient is receiving Glucerna at the rate of 50 mL an hour. He is also on low- dose norepinephrine infusion running at 0.02 microvascular kilogram per minute. The white cell count is at 6.3 with a hemoglobin of 8.5 and a platelet count of 605 and his sodium is at 138, potassium level is at 3.6, BUN is at 19 with a creatinine of 0.9. Awaiting consultation by wound services. The patient will need a wound VAC to sacral stage IV On 01/27/2022, patient is being seen for a follow-up. The patient is awake and alert and he is doing extremely well. Overnight, the patient spent on a BiPAP at a pressure of 16/8 cm of water and currently is back on O2 at 2 L per minute nasal cannula. IV fluids are currently at KVO. The patient's overall fluid balance is -1.8 L over the past 24 hours and the patient is responding very nicely to diuretics with Lasix. The patient is also on Glucerna for enteral feeding and nutritional support at the rate of 70 mL an hour. The patient is currently off Precedex. The patient is currently off levo fed. The patient has a white cell count of 6.2 with a hemoglobin 8.5. Sodium is at 138, BUN is at 90 with a creatinine of 0.9. Albumin is up to 2.4. Awake and alert and following commands and answering questions. Awaiting still a wound services evaluation for wound VAC placement. Meanwhile, the possible culture was noted to not to be coagulase negative staph. The patient was given a dose of vancomycin which will be ultimately discontinued and the patient will be kept on IV Zosyn for now. He has no specific complaints otherwise for now. Objective - Vital Signs Vital signs: Vital Signs Temp 98.4 F 01/27/22 12:00 Pulse 98 01/27/22 12:30 Resp 11 L 01/27/22 12:30 BP 86/57 01/27/22 12:30 Pulse Ox 100 01/27/22 12:30 FiO2 30 01/27/22 06:00 Intake & Output 01/26/22 01/27/22 01/27/22 18:59 06:59 18:59 Intake Total 7947.107 5304.613 418.957 Output Total 1195 1105 841 Balance 244.789 773.613 -422.043 Weight 103.3 kg Intake: IV 891 860 140 0.9 190 260 Magnesium Sulfate-D5w Pmx 100 1 gm In Dextrose/Water 1 100ml.bag @ 100 mls/hr IVPB Q1H ERINN Rx#: [id number] Piperacillin-Tazobactam 3 100 100 140 .375 gm In Sodium Chloride 0.9% 100 ml @ 25 mls/hr IVPB Q8HR ERINN Rx# :[id number] Vancomycin 1,750 mg In 501 500 Sodium Chloride 0.9% 500 ml 500 ml @ 167 mls/hr IVPB Q12H ERINN Rx#: [id number] Intake, IV Titration 148.789 88.613 68.957 Amount Dexmedetomidine/0.9% NaCl 19.227 (Pmx) 400 mcg In Empty Bag 1 bag @ 0.2 MCG/KG/HR 4.763 mls/hr IV .Q21H ERINN Rx#:[id number] Norepinephrine 4 mg In 129.562 88.613 68.957 Sodium Chloride 0.9% 250 ml @ 0.05 MCG/KG/MIN 18. 146 mls/hr IV .Q14H ERINN Rx#:[id number] Tube Feeding 400 780 210 Other 150 Output: Urine 1195 1105 841 Other: Voiding Method Indwelling Catheter Indwelling Catheter Indwelling Catheter - Exam Gen. appearance the patient is awake and alert and is following simple commands. currently to 2liters/min Head exam was generally normal. There was no scleral icterus or corneal arcus. Mucous membranes were moist. Neck was supple and without jugular venous distension, thyromegaly, or carotid bruits. Carotids were easily palpable bilaterally. There was no adenopathy. Lungs diminished breath sounds bilaterally along with dullness to percussion consistent with bilateral pleural effusions Heart sounds are distant positive sinus and there is no significant murmurs appreciated Abdominal exam revealed normal bowel sounds. The abdomen was soft, non-tender, and without masses, organomegaly, or appreciable enlargement of the abdominal aorta. Patient is also developed some bleeding from the skin at the site of Lovenox injections. There is areas of ecchymosis. No direct tenderness. No rebound tenderness. No guarding. Surgical wound site over the right upper quadrant at the site of the open cholecystectomy dry clean and intact. Bowel sounds are hypoactive at the present. No distention. No ascites. The patient has a PEG tube which is in the epigastric area and the dry areas dry clean and intact Extremities are quite adequate pulses bilaterally, no cyanosis. Neurologically the patient is following commands and answering questions. No focal neurological deficits. Profoundly weak, extensive edema in all 4 extremities mainly in the left upper extremity that needs to be further worked up. Skin stage IV sacral decubitus ulceration mild deep, reaching the bone and the area can be easily probes. Several other ones stage III in the sacrum area. Of them needs to be debrided as there is some purulent material covering the surface. Lymph node nothing nothing going is diabetic - Labs CBC & Chem 7: 01/27/22 05:41 01/27/22 05:41 Labs: Abnormal Lab Results - Last 24 Hours (Table) 01/27/22 01/27/22 Range/Units 05:41 05:41 RBC 2.64 L (4.30-5.90) m/uL Hgb 7.5 L (13.0-17.5) gm/dL Hct 24.9 L (39.0-53.0) % MCHC 30.1 L (31.0-37.0) g/dL RDW 19.7 H (11.5-15.5) % Plt Count 508 H (150-450) k/uL Lymphocytes # 0.8 L (1.0-4.8) k/uL Sodium 136 L (137-145) mmol/L Potassium 3.1 L (3.5-5.1) mmol/L Carbon Dioxide 39 H (22-30) mmol/L Glucose 112 H (74-99) mg/dL Calcium 7.6 L (8.4-10.2) mg/dL Microbiology - Last 24 Hours (Table) 01/24/22 19:50 Blood Culture - Preliminary Blood No Growth after 48 hours 01/24/22 19:35 Blood Culture Gram Stain - Preliminary Blood Blood Culture - Preliminary Coagulase Negative Staph Assessment and Plan Plan: Acute mental status change, likely due to encephalopathy and hypoxemia and possibly hypercapnia , recovered, the patient is currently on 2 L of O2 nasal cannula Acute hypoxic respiratory failure, currently on a BiPAP at a pressure of 16/8 cm of water and FiO2 of 65%. Chest x-ray showing bilateral pleural effusion and possible infiltrate in lung bases bilaterally. Rule out underlying aspiration. Rule out underlying hospital-acquired pneumonia. Currently off the BiPAP and currently on 2 L of O2 nasal cannula. The patient is being diuresis with IV Lasix with adequate urine output. The patient continued to diurese and the patient continues to be a negative fluid balance Failure to thrive and the patient was given a PEG tube for enteral feeding and is support Acute hypotension, recovered. The patient recovered from his acute septic shock during his last admission. No clear indication for an abdominal abscess. The patient is currently off pressors in the blood cultures sleeve turner to be correlated negative staph and the patient was given a dose of vancomycin which will be discontinued. Recent gangrenous cholecystitis with a right cholecystectomy, open. There is a collection in the gallbladder fossa which is most likely benign. Abdominal exam is benign and the patient is not having any abnormalities in liver function tests. 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 Hypoalbuminemia with a serum albumin of 2.5 History morbid obesity with ongoing weight loss Diabetes mellitus type 2 Bronchial asthma, chronic unspecified/COPD Diabetes mellitus type 2 Obstructive sleep apnea BPH Hypertension Hyperlipidemia Previous history of C. diff colitis, repeat stool for C. diff has been negative Generalized debility due to his medical condition and the patient has been shelter resident following his surgery Anemia , chronic and Hb is curreently at 7.5 Plan Discontinue vancomycin Continue IV Zosyn Continue diuretics Put the patient on BiPAP on and off if needed, currently on 2 L of O2 nasal cannula Obtain a pro-calcitonin level and the level came back at 0.34 Continue Lasix 40 mg every 12 hours and the patient is producing significant amount of urine output Wound care and consult on services Continue enteral feeding for nutritional support and the patient is currently on Glucerna. Awaiting wound services Continue anticoagulation with Eliquis DNR/DNI CODE STATUS Very poor baseline performance and functional status with extensive comorbidities and abilities. We'll see this patient along with aggressive the consultants. Bre chest for out of the intensive care unit today
[2022-01-27] MEDS: POTASSIUM BICARBONATE/CIT AC 20 MEQ TABLET.EFF NG-TUBE SCH ×2 (14:10→15:13)
[2022-01-27] MEDS ORDERED: LIDOCAINE 1% INJ 10MG/ML (5 ML VIAL-PF) SQ ONE (14:19)
--- NOTE | 2022-01-27 14:48 | XR ---
EXAMINATION TYPE: XR chest 1V confirm line [facility] DATE OF EXAM: 01/27/2022 2:43 PM COMPARISON: Chest radiographs from 01/26/2022 TECHNIQUE: XR chest 1V confirm line [facility] Portable AP radiograph of the chest. CLINICAL INDICATION:Male, 62 years old with history of CONFIRM PICC LINE PLACEMENT; FINDINGS: Lungs/Pleura: No significant change given patient positioning. There is no evidence of pleural effusi on, focal consolidation, or pneumothorax. Pulmonary vascularity: Unremarkable. Heart/mediastinum: Cardiomediastinal silhouette is enlarged and stable. Musculoskeletal: No acute osseous pathology. Lines/Tubes: Left-sided PICC with distal tip at the brachiocephalic vein. IMPRESSION: Retraction of Left-sided PICC with distal tip projecting over the left brachiocephalic vein.
--- NOTE | 2022-01-27 15:13 | P.PN ---
Subjective Progress Note Date: 01/27/22 The patient is seen at bedside and he feels he is doing better. The nurse also feels his mentation is improving. Objective - Vital Signs Vital signs: Vital Signs Temp 98.3 F 01/27/22 10:00 Pulse 101 H 01/27/22 10:00 Resp 14 01/27/22 10:00 BP 97/77 01/27/22 10:00 Pulse Ox 98 01/27/22 09:30 FiO2 30 01/27/22 06:00 Intake & Output 01/26/22 01/27/22 01/27/22 18:59 06:59 18:59 Intake Total 4914.343 5902.613 143.957 Output Total 1195 1105 350 Balance 244.789 773.613 -206.043 Weight 103.3 kg Intake: IV 891 860 75 0.9 190 260 Magnesium Sulfate-D5w Pmx 100 1 gm In Dextrose/Water 1 100ml.bag @ 100 mls/hr IVPB Q1H ERINN Rx#: [id number] Piperacillin-Tazobactam 3 100 100 75 .375 gm In Sodium Chloride 0.9% 100 ml @ 25 mls/hr IVPB Q8HR ERINN Rx# :[id number] Vancomycin 1,750 mg In 501 500 Sodium Chloride 0.9% 500 ml 500 ml @ 167 mls/hr IVPB Q12H ERINN Rx#: [id number] Intake, IV Titration 148.789 88.613 68.957 Amount Dexmedetomidine/0.9% NaCl 19.227 (Pmx) 400 mcg In Empty Bag 1 bag @ 0.2 MCG/KG/HR 4.763 mls/hr IV .Q21H ERINN Rx#:[id number] Norepinephrine 4 mg In 129.562 88.613 68.957 Sodium Chloride 0.9% 250 ml @ 0.05 MCG/KG/MIN 18. 146 mls/hr IV .Q14H ERINN Rx#:[id number] Tube Feeding 400 780 Other 150 Output: Urine 1195 1105 350 Other: Voiding Method Indwelling Catheter Indwelling Catheter Indwelling Catheter - Exam GENERAL: The patient is lying in bed and is not in acute distress. NEUROLOGICAL: Higher mental function: The patient is awake, alert, oriented to self, place and time. He is minimally slow to responding but improving. He is following simple commands. No apshasia or neglect. Cranial nerves: The pupils are round, equal and reactive to light. No facial weakness. No dysarthria. Motor: The strength is stronger over uppers >>lowers. Uppers are 4+to 5- while lowers has proximal 1 and wiggles his toes. Decrease tone in lowers. Sensation: Sensation is normal to touch throughout. Reflexes (right/left): 1-2+ in uppers while lowers were hard to assess. Patient had edema in lower extremities. Plantars are mute bilaterally. - Labs CBC & Chem 7: 01/26/22 05:52 01/26/22 05:52 Labs: Abnormal Lab Results - Last 24 Hours (Table) 01/26/22 Range/Units 12:13 POC Glucose (mg/dL) 141 H (70-110) mg/dL Microbiology - Last 24 Hours (Table) 01/24/22 19:50 Blood Culture - Preliminary Blood No Growth after 48 hours 01/24/22 19:35 Blood Culture Gram Stain - Preliminary Blood Blood Culture - Preliminary Coagulase Negative Staph 01/24/22 19:35 Blood Culture - Final Blood Assessment and Plan Assessment: Altered mental status due to multifactorial: Encephalopathy seems due to hepatic and hypoxemic encephalopathy---improved Acute congestive heart failure exacerbation Type 2 diabetes Hypertension currently controlled. History of COVID-19 Generalized weakness. Predominately bilateral lower extremity weakness (mostly lowers than uppers) and was felt mostly due to critical illness [place]/neuropathy Hyperlipidemia DVT right lower extremity sleep apnea COPD Sacral decubitus ulcer with chronic indwelling Smith catheter Plan: Patient had vitamin B12 and TSH in 12/2021 and was normal and does not need to be repeated. An EEG is not warranted at this time since it does not seem like a seizure and his mentation is improving. Patient had multiple EEGs in the past as well as a prolonged EEG and a prolonged EEG was negative for seizures. Recommend EMG with NCS as outpatient for his lower extremity weakness to rule out critical illness myopathy/neuropathy. Consulted Physical therapy and occupational therapy. Cardiology is on board We'll defer the rest of the medical management to the primary and ICU team. The plan is discussed with his nurse. No additional work-up. Will sign off. Please notify neurology team if any further concerns. Florencio Ulloa M.D. Neuro-hospitalist Time with Patient: Less than 30
--- NOTE | 2022-01-27 15:58 | IR ---
PICC LINE PLACEMENT: HISTORY: Infection requiring long-term antibiotic therapy PROCEDURE: Ultrasound guidance of PICC line placement. HOME CARE PROVIDER: COMPLICATIONS: None ANESTHESIA: 1. 1% Lidocaine locally. FINDINGS/TECHNIQUE: The procedure was explained to the patient. The risks, complications, benefits and alternatives were discussed and any questions were answered. Informed consent was obtained. The patient was placed supine on the fluoroscopic table and prepped and draped in the usual sterile fash ion. Utilizing a 21 gauge needle and sonographic guidance, access in the left basilic vein was achi eved and there is placement of a 0.018 guidewire. The vein is patent. A 5-F. sheath was placed over the guidewire. The guidewire and dilator were removed and a 5-F. Double lumen PICC line was placed through the sheath with the chest x-ray confirming the tip at the level of the SVC. The sheath was r emoved, the catheter was flushed and sutured into position. The patient was stable throughout the pr ocedure and remained stable upon discharge from the Department of Radiology. The vein puncture was patent under ultrasound. A aviles scale image was obtained to document patency of the vein punctured. All elements of the maximal barrier technique were utilized. IMPRESSION: 1. Successful PICC line placement under ultrasound performed bedside within the ICU.
[2022-01-27] MEDS: GABAPENTIN 100 MG CAP PO SCH (20:38)
[2022-01-28] MEDS: PIPERACILLIN-TAZOBACTAM 3.375 GM in SODIUM CHLORIDE 0.9% 100 ML IVPB SCH ×3 (00:13→17:18)
[2022-01-28] MEDS: IPRATROPIUM-ALBUTEROL 3 ML NEB INHALATION SCH ×4 (07:24→19:55)
[2022-01-28] MEDS: TAMSULOSIN 0.4 MG CAP.ER.24H PO SCH (07:44)
[2022-01-28] MEDS: MULTIVITAMINS, THERA 1 EACH TAB PO SCH (07:44)
[2022-01-28] MEDS: CHOLECALCIFEROL 25 MCG (1000 IU) TABLET PO SCH (07:44)
[2022-01-28] MEDS: METOPROLOL TARTRATE 12.5 MG TAB PO SCH ×3 (07:44→21:32)
[2022-01-28] MEDS: APIXABAN 5 MG TAB PO SCH ×2 (07:45→21:32)
[2022-01-28] MEDS: ASCORBIC ACID 500 MG TAB PO SCH (07:45)
[2022-01-28] MEDS: LACTULOSE 20 GM/30 ML CUP PO SCH (07:45)
[2022-01-28] MEDS: FOLIC ACID 1 MG TAB PO SCH (07:45)
[2022-01-28] MEDS: FUROSEMIDE 10 MG/ML 4 ML VIAL IV SCH ×2 (07:45→21:32)
[2022-01-28] MEDS: FAMOTIDINE 20 MG TAB PO SCH ×2 (07:45→17:17)
[2022-01-28] MEDS: MIDODRINE 5 MG TAB PO SCH ×3 (07:45→17:17)
--- NOTE | 2022-01-28 10:18 | P.PN ---
Subjective Progress Note Date: 01/28/22 This is a 61-year-old gentleman being seen by the wound care center for nonhealing ulceration to the left buttocks. Patient currently has a negative pressure wound VAC to the site. Patient developed a pressure ulcer during his last hospitalization back in September. He has multiple stage II/IV pressure ulcers to the left buttocks and sacrum. Continue with negative pressure wound vac Patient's past medical history significant for COPD, Diabetes Mellitus, Deep Vein Thrombosis, Hyperlipidemia, Hypertension, Sleep Apnea/CPAP/BIPAP. 01/28/2022: Patient reassessed due to multiple ulcerations to the left and right buttocks. Ulcerations have fat layer exposed, no granulation to the wound bed. Review Of Systems: Constitutional: No fever, no chills, no night sweats. No weight change. No weakness, fatigue or lethargy. No daytime sleepiness. Integumentary:reports wounds, no lesions. No rash or pruritus. No unusual bruising. No change in hair or nails. Physical exam: General Appearance: Alert, cooperative, no distress, appears stated age. Skin: See HPI all other Skin color, texture, tugor normal, no rashes or lesions. Neurologic: Alert oriented x3 Assessment: 1. Stage IV pressure ulcer left buttocks 2. Stage II pressure ulcer left buttocks 3. Stage II pressure ulcer right buttocks 4. Diabetes with skin ulceration Plan: 1. Apply negative pressure wound VAC to stage IV pressure ulcer left buttocks to 125 mm/Hg of suction with black foam to the site changed Monday, and Monday. Utilize Skin-Prep to the site. 2. Apply honey gel to all other ulcerations cover with abd and secure with tape. Change Monday, , and Monday. Thank you for the consultation any questions contact the wound care center DNP note has been reviewed and discussed with Dr. Centeno and the impression and plan of care has been directed as dictated. Objective - Vital Signs Vital signs: Vital Signs Temp 98.4 F 01/28/22 07:50 Pulse 111 H 01/28/22 07:50 Resp 17 01/28/22 07:50 BP 111/73 01/28/22 07:50 Pulse Ox 92 L 01/28/22 07:50 FiO2 30 01/27/22 06:00 Intake & Output 0701/28/22 01/28/22 18:59 06:59 18:59 Intake Total 508.957 Output Total 916 1100 Balance -407.043 -1100 Intake: IV 160 Piperacillin-Tazobactam 3 160 .375 gm In Sodium Chloride 0.9% 100 ml @ 25 mls/hr IVPB Q8HR ERINN Rx# :[id number] Intake, IV Titration 68.957 Amount Norepinephrine 4 mg In 68.957 Sodium Chloride 0.9% 250 ml @ 0.05 MCG/KG/MIN 18. 146 mls/hr IV .Q14H ERINN Rx#:[id number] Tube Feeding 280 Output: Urine 916 1100 Other: Voiding Method Indwelling Catheter Indwelling Catheter # Bowel Movements 2 - Labs CBC & Chem 7: 01/27/22 05:41 01/27/22 05:41 Labs: Abnormal Lab Results - Last 24 Hours (Table) 01/27/22 01/27/22 Range/Units 05:41 05:41 RBC 2.64 L (4.30-5.90) m/uL Hgb 7.5 L (13.0-17.5) gm/dL Hct 24.9 L (39.0-53.0) % MCHC 30.1 L (31.0-37.0) g/dL RDW 19.7 H (11.5-15.5) % Plt Count 508 H (150-450) k/uL Lymphocytes # 0.8 L (1.0-4.8) k/uL Sodium 136 L (137-145) mmol/L Potassium 3.1 L (3.5-5.1) mmol/L Carbon Dioxide 39 H (22-30) mmol/L Glucose 112 H (74-99) mg/dL Calcium 7.6 L (8.4-10.2) mg/dL Microbiology - Last 24 Hours (Table) 01/24/22 19:50 Blood Culture - Preliminary Blood No Growth after 72 hours Assessment and Plan (1) Pressure ulcer of right buttock, stage 3 Current Visit: Yes Status: Acute Code(s): L89.313 - PRESSURE ULCER OF RIGHT BUTTOCK, STAGE 3 SNOMED Code(s): 85249319060728602 (2) Pressure ulcer of sacral region, stage 3 Current Visit: Yes Status: Acute Code(s): L89.153 - PRESSURE ULCER OF SACRAL REGION, STAGE 3 SNOMED Code(s): 61394056390261377 (3) Pressure injury of left buttock, stage 4 Current Visit: No Status: Acute Code(s): L89.324 - PRESSURE ULCER OF LEFT BUTTOCK, STAGE 4 SNOMED Code(s): 92748533479914266
[2022-01-28 10:50] LABS: Basophils # (A) 0.02 X 10*3/uL (0.00-0.10); Basophils % (A) 0.4 %; Eosinophils # (A) 0.24 X 10*3/uL (0.04-0.35); Eosinophils % (A) 4.8 %; HCT 25.6 % (39.6-50.0); HGB 7.7 g/dL (13.0-17.0); Lymphocytes # (A) 0.72 X 10*3/uL (0.90-5.00); Lymphocytes % (A) 14.5 %; MCH 28.5 pg (27.0-32.0); MCHC 30.1 g/dL (32.0-37.0); MCV 94.8 fL (80.0-97.0); Mean Platelet Volume 9.1 fL (9.5-12.2); NRBC Per 100 WBC 0.8 /100 WBCS (0.0-0.0); Neutrophils % (A) 70.3 %; Platelet Count 477 X 10*3/uL (140-440); WBC 4.98 X 10*3/uL (4.50-10.00)
[2022-01-28 11:13] LABS: African American GFR (CKD) 93.7 (60.0-200.0); Albumin 2.1 g/dL (3.8-4.9); Albumin/Globulin Ratio 0.81 (1.60-3.17); Anion Gap 10.6 mmol/L (10.00-18.00); BUN/Creat Ratio 16.3 Ratio (12.00-20.00); Blood Urea Nitrogen 16.3 mg/dL (9.0-27.0); Calcium 8.1 mg/dL (8.7-10.3); Carbon Dioxide 36.4 mmol/L (20.0-27.5); Globulin 2.6 g/dL (1.6-3.3); Non-African American GFR(CKD) 80.9 (60.0-200.0); Potassium 3.6 mmol/L (3.5-5.5); Total Bilirubin 0.3 mg/dL (0.30-1.20); Total Protein 4.7 g/dL (6.2-8.2)
[2022-01-28 12:56] VITALS: BMI 29.7
--- NOTE | 2022-01-28 13:39 | P.PN ---
Subjective Progress Note Date: 01/28/22 61-year-old male patient with a complicated medical history, came in to the emergency department today after being discharged to a correction approximately 3 days ago. The patient was found to have altered mentation and he was found to be lethargic and was sent and was having more shortness of breath. I was told that the patient was discharged home on room air oxygen and he was not requiring any oxygen supplementation. The time of his arrival to the emergency department, the patient was having labored breathing and was tachypneic and he was given a chest x-ray that showed bilateral pleural effu sions which are essentially chronic. No reported aspiration. The PEG tube, however, I was also informed that was taken food orally. He was immediately placed on a BiPAP at a pressure of 16/8 cm of water and FiO2 of 65%. He was started on IV Lasix 40 mg every 8 hours. He has diuresed more than 2 L for now. He is already feeling better. His white cell count of 5.9 with hemoglobin 10.8 and a platelet count of 443. The patient's BUN of 50 with a 0.8 His Sodium Level of 134. Correlation Profile Was Essentially within Normal Limits. The Patient Also Had a Normal UA, Normal Urine Drug Screen, Albumin Level Is Improved and Is up to 2.4 with a total protein of 5.6. AST is 73, ALT 50, jonathan line phosphatase is at 229 and the patient has a lactic acid level of 0.9. Potassium level is at 8.4. Ammonia level is at 40. He is arousable. He is talking. He is profoundly weak in his legs and the patient has been drop bilaterally. He is moving his arms against gravity and his motor function is around 3-4 out of 5 and symmetrical in both upper extremities. A repeat computed tomography scan of the brain was done and was negative. Chest x-ray showed pulmonary vascular congestion and bilateral pleural effusion. On today's evaluation of 01/26/2022, the patient is awake and alert and the patient is following commands and answering questions appropriately. He is still profoundly weak. His breathing is nonlabored. He spent the night on BiPAP at a pressure of 16/8 cm of water and currently is on 4 L of Oxymizer nasal cannula. He remains on IV Lasix and the patient's fluid balance is been - 1.8 L over the past 24 hours. Chest x-ray is showing bilateral pleural effusions, essentially unchanged compared to yesterday. The patient is responding to diuresis. The patient was also methadone IV Zosyn. This was covering for aspiration. Blood culture one set turn supervisor to be positive for gram-positive cocci and the patient will be given a dose of vancomycin. The patient is receiving Glucerna at the rate of 50 mL an hour. He is also on low- dose norepinephrine infusion running at 0.02 microvascular kilogram per minute. The white cell count is at 6.3 with a hemoglobin of 8.5 and a platelet count of 605 and his sodium is at 138, potassium level is at 3.6, BUN is at 19 with a creatinine of 0.9. Awaiting consultation by wound services. The patient will need a wound VAC to sacral stage IV On 01/27/2022, patient is being seen for a follow-up. The patient is awake and alert and he is doing extremely well. Overnight, the patient spent on a BiPAP at a pressure of 16/8 cm of water and currently is back on O2 at 2 L per minute nasal cannula. IV fluids are currently at KVO. The patient's overall fluid balance is -1.8 L over the past 24 hours and the patient is responding very nicely to diuretics with Lasix. The patient is also on Glucerna for enteral feeding and nutritional support at the rate of 70 mL an hour. The patient is currently off Precedex. The patient is currently off levo fed. The patient has a white cell count of 6.2 with a hemoglobin 8.5. Sodium is at 138, BUN is at 90 with a creatinine of 0.9. Albumin is up to 2.4. Awake and alert and following commands and answering questions. Awaiting still a wound services evaluation for wound VAC placement. Meanwhile, the possible culture was noted to not to be coagulase negative staph. The patient was given a dose of vancomycin which will be ultimately discontinued and the patient will be kept on IV Zosyn for now. He has no specific complaints otherwise for now. The patient is seen today 01/28/2022 in follow-up on the regular medical floor. He is currently awake and alert in no acute distress. He is resting comfortably in bed. Maintaining good O2 saturations in the 90s on 2 L/m per nasal cannula. He is afebrile. Hemodynamically stable. He did receive a left-sided PICC line placed yesterday. Follow-up blood cultures revealed no growth. White count 4.9. Hemoglobin 7.7. Platelets 477. Sodium 144. Potassium 3.6. BUN 16. Creatinine 1.0. Glucose 126. He remains on antibiotics in the form of Zosyn. Continued on IV diuretics. Anticoagulated with Eliquis. Currently in a -1.5 L balance. He is being nourished via tube feedings. Not taking anything orally. Wound VAC remains in place. Objective - Vital Signs Vital signs: Vital Signs Temp 98.4 F 01/28/22 07:50 Pulse 111 H 01/28/22 07:50 Resp 17 01/28/22 07:50 BP 111/73 01/28/22 07:50 Pulse Ox 92 L 01/28/22 07:50 FiO2 30 01/27/22 06:00 Intake & Output 01/27/22 01/28/22 01/28/22 18:59 06:59 18:59 Intake Total 508.957 Output Total 916 1100 Balance -407.043 -1100 Weight 99.4 kg Intake: IV 160 Piperacillin-Tazobactam 3 160 .375 gm In Sodium Chloride 0.9% 100 ml @ 25 mls/hr IVPB Q8HR ERINN Rx# :[id number] Intake, IV Titration 68.957 Amount Norepinephrine 4 mg In 68.957 Sodium Chloride 0.9% 250 ml @ 0.05 MCG/KG/MIN 18. 146 mls/hr IV .Q14H ERINN Rx#:[id number] Tube Feeding 280 Output: Urine 916 1100 Other: Voiding Method Indwelling Catheter Indwelling Catheter Indwelling Catheter # Bowel Movements 2 1 - Exam Gen. appearance: Pleasant 62-year-old male patient, on 2 L nasal cannula, the patient is awake and alert and is following simple commands. Head exam was generally normal. There was no scleral icterus or corneal arcus. Mucous membranes were moist. Neck was supple and without jugular venous distension, thyromegaly, or carotid bruits. Carotids were easily palpable bilaterally. There was no adenopathy. Lungs diminished breath sounds bilaterally along with dullness to percussion consistent with bilateral pleural effusions Heart sounds are distant positive sinus and there is no significant murmurs appreciated Abdominal exam revealed normal bowel sounds. The abdomen was soft, non-tender, and without masses, organomegaly, or appreciable enlargement of the abdominal aorta. Patient is also developed some bleeding from the skin at the site of Lovenox injections. There is areas of ecchymosis. No direct tenderness. No rebound tenderness. No guarding. Surgical wound site over the right upper quadrant at the site of the open cholecystectomy dry clean and intact. Bowel sounds are hypoactive at the present. No distention. No ascites. The patient has a PEG tube which is in the epigastric area and the dry areas dry clean and intact Extremities are quite adequate pulses bilaterally, no cyanosis. Neurologically the patient is following commands and answering questions. No focal neurological deficits. Profoundly weak, extensive edema in all 4 extremities mainly in the left upper extremity that needs to be further worked up. Skin Stage IV pressure ulcer left buttocks, stage II pressure ulcer left bu ttocks, stage II pressure ulcer right buttocks, diabetes with skin ulceration. Wound VAC in place to the stage IV left buttock ulcer. - Labs CBC & Chem 7: 01/28/22 07:04 01/28/22 07:04 Labs: Abnormal Lab Results - Last 24 Hours (Table) 01/28/22 01/28/22 Range/Units 07:04 07:04 RBC 2.70 L (4.40-5.60) X 10*6/uL Hgb 7.7 L (13.0-17.0) g/dL Hct 25.6 L (39.6-50.0) % MCHC 30.1 L (32.0-37.0) g/dL RDW 21.0 H (11.5-14.5) % Plt Count 477 H (140-440) X 10*3/uL MPV 9.1 L (9.5-12.2) fL Absolute Nucleated RBC 0.04 H (0.00-0.00) X 10*3/uL Immature Gran # 0.10 H (0.00-0.04) X 10*3/uL Lymphocytes # 0.72 L (0.90-5.00) X 10*3/uL NRBC/100 WBC Diff 0.8 H (0.0-0.0) /100 WBCS Carbon Dioxide 36.4 H (20.0-27.5) mmol/L Glucose 126 H (70-110) mg/dL Calcium 8.1 L (8.7-10.3) mg/dL AST 52 H (14-35) U/L Alkaline Phosphatase 178 H (41-126) U/L Total Protein 4.7 L (6.2-8.2) g/dL Albumin 2.1 L (3.8-4.9) g/dL Albumin/Globulin Ratio 0.81 L (1.60-3.17) g/dL Microbiology - Last 24 Hours (Table) 01/24/22 19:35 Blood Culture Gram Stain - Final Blood Blood Culture - Final Coagulase Negative Staph 01/24/22 19:50 Blood Culture - Preliminary Blood No Growth after 72 hours Assessment and Plan Assessment: Acute mental status change, likely due to encephalopathy and hypoxemia and possibly hypercapnia , recovered, the patient is currently on 2 L of O2 nasal cannula Acute hypoxic respiratory failure. Chest x-ray showing no significant change. There is no evidence of pleural effusion, focal consolidation, or pneumothorax. Currently off the BiPAP and currently on 2 L of O2 nasal cannula. The patient is being diuresis with IV Lasix with adequate urine output. The patient continued to diurese and the patient continues to be a negative fluid balance Failure to thrive and the patient was given a PEG tube for enteral feeding and is support Acute hypotension, recovered. The patient recovered from his acute septic shock during his last admission. No clear indication for an abdominal abscess. The patient is currently off pressors in the blood cultures turn supervisor to be correlated negative staph and the patient was given a dose of vancomycin which will be discontinued. Recent gangrenous cholecystitis with a right cholecystectomy, open. There is a collection in the gallbladder fossa which is most likely benign. Abdominal exam is benign and the patient is not having any abnormalities in liver function tests. Cachexia, failure to meet caloric requirements, weight loss, has a PEG tube DVT of the right lower extremity currently on Eliquis Stage IV decubitus ulcer on the left buttocks, currently has received a wound VAC Previous history of kidney failure requiring dialysis, current renal function is normal Excessive third spacing and edema Extensive motor weakness in all 4 extremities and/in the legs where there is bilateral foot drop. Hypoalbuminemia with a serum albumin of 2.1 History morbid obesity with ongoing weight loss Diabetes mellitus type 2 Bronchial asthma, chronic unspecified/COPD Diabetes mellitus type 2 Obstructive sleep apnea BPH Hypertension Hyperlipidemia Previous history of C. diff colitis, repeat stool for C. diff has been negative Generalized debility due to his medical condition and the patient has been correction resident following his surgery Anemia , chronic and Hb is curreently at 7.7 Plan The patient was seen and evaluated Stable from the pulmonary standpoint Continue bronchodilators Continue IV diuretics Remains on antibiotics in the form of Zosyn Remains on Eliquis Continue with oxygen 2 L nasal cannula alternating with BiPAP as needed We will continue to follow I have personally seen and examined the patient, performed the documentation and the assessment and plan as written. I have personally seen and examined the patient and reviewed the documentation. I performed a joint evaluation with the nurse practitioner in this evaluation was done more than 20 minutes. I fully agree with the documentation above and the plan of care. The patient's condition is stable. Wound VAC has been applied. Oxygenation is also stable. No respiratory difficulties.
[2022-01-28] MEDS: GABAPENTIN 100 MG CAP PO SCH (21:32)
[2022-01-29 00:05] LABS: Glucose,Whole Blood 141 mg/dL (70-110)
[2022-01-29] MEDS: INSULIN ASPART (NovoLOG) 100 UNIT/ML VIAL SQ SCH ×4 (00:08→17:05)
[2022-01-29] MEDS: PIPERACILLIN-TAZOBACTAM 3.375 GM in SODIUM CHLORIDE 0.9% 100 ML IVPB SCH ×3 (00:08→17:00)
[2022-01-29 05:30] LABS: Glucose,Whole Blood 125 mg/dL (70-110)
[2022-01-29] MEDS: FUROSEMIDE 10 MG/ML 4 ML VIAL IV SCH ×2 (07:32→22:18)
[2022-01-29] MEDS: MULTIVITAMINS, THERA 1 EACH TAB PO SCH (07:32)
[2022-01-29] MEDS: ASCORBIC ACID 500 MG TAB PO SCH (07:32)
[2022-01-29] MEDS: METOPROLOL TARTRATE 12.5 MG TAB PO SCH ×3 (07:32→22:18)
[2022-01-29] MEDS: TAMSULOSIN 0.4 MG CAP.ER.24H PO SCH (07:32)
[2022-01-29] MEDS: FAMOTIDINE 20 MG TAB PO SCH ×2 (07:32→17:00)
[2022-01-29] MEDS: CHOLECALCIFEROL 25 MCG (1000 IU) TABLET PO SCH (07:32)
[2022-01-29] MEDS: FOLIC ACID 1 MG TAB PO SCH (07:32)
[2022-01-29] MEDS: APIXABAN 5 MG TAB PO SCH ×2 (07:32→22:18)
[2022-01-29] MEDS: MIDODRINE 5 MG TAB PO SCH ×3 (07:32→17:00)
[2022-01-29] MEDS: IPRATROPIUM-ALBUTEROL 3 ML NEB INHALATION SCH ×4 (09:02→19:28)
[2022-01-29] MEDS: LACTULOSE 20 GM/30 ML CUP PO SCH (11:05)
[2022-01-29 11:37] LABS: Glucose,Whole Blood 137 mg/dL (70-110)
--- NOTE | 2022-01-29 11:59 | P.PN ---
Subjective Progress Note Date: 01/29/22 61-year-old male patient with a complicated medical history, came in to the emergency department today after being discharged to a long term approximately 3 days ago. The patient was found to have altered mentation and he was found to be lethargic and was sent and was having more shortness of breath. I was told that the patient was discharged home on room air oxygen and he was not requiring any oxygen supplementation. The time of his arrival to the emergency department, the patient was having labored breathing and was tachypneic and he was given a chest x-ray that showed bilateral pleural effu sions which are essentially chronic. No reported aspiration. The PEG tube, however, I was also informed that was taken food orally. He was immediately placed on a BiPAP at a pressure of 16/8 cm of water and FiO2 of 65%. He was started on IV Lasix 40 mg every 8 hours. He has diuresed more than 2 L for now. He is already feeling better. His white cell count of 5.9 with hemoglobin 10.8 and a platelet count of 443. The patient's BUN of 50 with a 0.8 His Sodium Level of 134. Correlation Profile Was Essentially within Normal Limits. The Patient Also Had a Normal UA, Normal Urine Drug Screen, Albumin Level Is Improved and Is up to 2.4 with a total protein of 5.6. AST is 73, ALT 50, jonathan line phosphatase is at 229 and the patient has a lactic acid level of 0.9. Potassium level is at 8.4. Ammonia level is at 40. He is arousable. He is talking. He is profoundly weak in his legs and the patient has been drop bilaterally. He is moving his arms against gravity and his motor function is around 3-4 out of 5 and symmetrical in both upper extremities. A repeat computed tomography scan of the brain was done and was negative. Chest x-ray showed pulmonary vascular congestion and bilateral pleural effusion. On today's evaluation of 01/26/2022, the patient is awake and alert and the patient is following commands and answering questions appropriately. He is still profoundly weak. His breathing is nonlabored. He spent the night on BiPAP at a pressure of 16/8 cm of water and currently is on 4 L of Oxymizer nasal cannula. He remains on IV Lasix and the patient's fluid balance is been - 1.8 L over the past 24 hours. Chest x-ray is showing bilateral pleural effusions, essentially unchanged compared to yesterday. The patient is responding to diuresis. The patient was also methadone IV Zosyn. This was covering for aspiration. Blood culture one set cross tie turner to be positive for gram-positive cocci and the patient will be given a dose of vancomycin. The patient is receiving Glucerna at the rate of 50 mL an hour. He is also on low- dose norepinephrine infusion running at 0.02 microvascular kilogram per minute. The white cell count is at 6.3 with a hemoglobin of 8.5 and a platelet count of 605 and his sodium is at 138, potassium level is at 3.6, BUN is at 19 with a creatinine of 0.9. Awaiting consultation by wound services. The patient will need a wound VAC to sacral stage IV On 01/27/2022, patient is being seen for a follow-up. The patient is awake and alert and he is doing extremely well. Overnight, the patient spent on a BiPAP at a pressure of 16/8 cm of water and currently is back on O2 at 2 L per minute nasal cannula. IV fluids are currently at KVO. The patient's overall fluid balance is -1.8 L over the past 24 hours and the patient is responding very nicely to diuretics with Lasix. The patient is also on Glucerna for enteral feeding and nutritional support at the rate of 70 mL an hour. The patient is currently off Precedex. The patient is currently off levo fed. The patient has a white cell count of 6.2 with a hemoglobin 8.5. Sodium is at 138, BUN is at 90 with a creatinine of 0.9. Albumin is up to 2.4. Awake and alert and following commands and answering questions. Awaiting still a wound services evaluation for wound VAC placement. Meanwhile, the possible culture was noted to not to be coagulase negative staph. The patient was given a dose of vancomycin which will be ultimately discontinued and the patient will be kept on IV Zosyn for now. He has no specific complaints otherwise for now. The patient is seen today 01/28/2022 in follow-up on the regular medical floor. He is currently awake and alert in no acute distress. He is resting comfortably in bed. Maintaining good O2 saturations in the 90s on 2 L/m per nasal cannula. He is afebrile. Hemodynamically stable. He did receive a left-sided PICC line placed yesterday. Follow-up blood cultures revealed no growth. White count 4.9. Hemoglobin 7.7. Platelets 477. Sodium 144. Potassium 3.6. BUN 16. Creatinine 1.0. Glucose 126. He remains on antibiotics in the form of Zosyn. Continued on IV diuretics. Anticoagulated with Eliquis. Currently in a -1.5 L balance. He is being nourished via tube feedings. Not taking anything orally. Wound VAC remains in place. 01/28/2022, the patient is essentially the same. He continued to receive anti biotics. He continues to receive Lasix 40 mg IV every 12 hours. He continues to be in a negative fluid balance of her other 2.7 L over the past 24 hours. His blood work is still pending for now. He remains on IV Zosyn. Wound VAC was added. No respiratory distress. He is not using his BiPAP and the patient is currently on 2 L O2 nasal cannula with a pulse ox of 99%. He is afebrile. He is hemodynamically stable. He did have a bowel movement. He is tolerating enteral feeding for nutritional support. Objective - Vital Signs Vital signs: Vital Signs Temp 99.0 F 01/29/22 07:57 Pulse 100 01/29/22 09:13 Resp 17 01/29/22 07:57 BP 93/53 01/29/22 07:57 Pulse Ox 100 01/29/22 07:57 FiO2 30 01/27/22 06:00 Intake & Output 01/28/22 01/29/22 01/29/22 18:59 06:59 18:59 Output Total 1300 1450 Balance -1300 -1450 Weight 99.4 kg 99.4 kg Output: Urine 1300 1450 Other: Voiding Method Indwelling Catheter Indwelling Catheter # Bowel Movements 2 - Exam Gen. appearance: Pleasant 62-year-old male patient, on 2 L nasal cannula, the patient is awake and alert and is following simple commands. Head exam was generally normal. There was no scleral icterus or corneal arcus. Mucous membranes were moist. Neck was supple and without jugular venous distension, thyromegaly, or carotid bruits. Carotids were easily palpable bilaterally. There was no adenopathy. Lungs diminished breath sounds bilaterally along with dullness to percussion consistent with bilateral pleural effusions Heart sounds are distant positive sinus and there is no significant murmurs appreciated Abdominal exam revealed normal bowel sounds. The abdomen was soft, non-tender, and without masses, organomegaly, or appreciable enlargement of the abdominal aorta. Patient is also developed some bleeding from the skin at the site of Lovenox injections. There is areas of ecchymosis. No direct tenderness. No rebound tenderness. No guarding. Surgical wound site over the right upper quadrant at the site of the open cholecystectomy dry clean and intact. Bowel sounds are hypoactive at the present. No distention. No ascites. The patient has a PEG tube which is in the epigastric area and the dry areas dry clean and intact Extremities are quite adequate pulses bilaterally, no cyanosis. Neurologically the patient is following commands and answering questions. No focal neurological deficits. Profoundly weak, extensive edema in all 4 extremities m ainly in the left upper extremity that needs to be further worked up. Skin Stage IV pressure ulcer left buttocks, stage II pressure ulcer left buttocks, stage II pressure ulcer right buttocks, diabetes with skin ulceration. Wound VAC in place to the stage IV left buttock ulcer. - Labs CBC & Chem 7: 01/28/22 07:04 01/28/22 07:04 Labs: Abnormal Lab Results - Last 24 Hours (Table) 01/29/22 01/29/22 01/29/22 Range/Units 00:04 05:28 11:36 POC Glucose (mg/dL) 141 H 125 H 137 H (70-110) mg/dL Microbiology - Last 24 Hours (Table) 01/24/22 19:50 Blood Culture - Preliminary Blood No Growth after 96 hours 01/24/22 19:35 Blood Culture Gram Stain - Final Blood Blood Culture - Final Coagulase Negative Staph Assessment and Plan Plan: Acute mental status change, likely due to encephalopathy and hypoxemia and possibly hypercapnia , recovered, the patient is back to normal mentation Acute hypoxic respiratory failure, recovered and the patient is currently on 2 L oxygen nasal cannula and the patient is currently off BiPAP Failure to thrive and the patient was given a PEG tube for enteral feeding and is support, tolerating enteral feeding for nutritional support Acute hypotension, recovered. The patient recovered from his acute septic shock during his last admission. No clear indication for an abdominal abscess. The patient is currently off pressors in the blood cultures cross tie turner to be correlated negative staph and the patient was given a dose of vancomycin which will be discontinued. Recent gangrenous cholecystitis with a right cholecystectomy, open. There is a collection in the gallbladder fossa which is most likely benign. Abdominal exam is benign and the patient is not having any abnormalities in liver function tests. 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 Hypoalbuminemia with a serum albumin of 2.5 History morbid obesity with ongoing weight loss Diabetes mellitus type 2 Bronchial asthma, chronic unspecified/COPD Diabetes mellitus type 2 Obstructive sleep apnea BPH Hypertension Hyperlipidemia Previous history of C. diff colitis, repeat stool for C. diff has been negative Generalized debility due to his medical condition and the patient has been long term resident following his surgery Anemia , chronic and Hb is curreently at 7.5 Plan Continue diuretics for another 24 hours IV Zosyn Discontinue BiPAP currently on 2 L of O2 nasal cannula Obtain a pro-calcitonin level and the level came back at 0.34 Continue Lasix 40 mg every 12 hours and the patient is producing significant amount of urine output Monitor electrolytes Wound VAC Continue enteral feeding for nutritional support and the patient is currently on Glucerna. Continue anticoagulation with Eliquis DNR/DNI CODE STATUS Very poor baseline performance and functional status with extensive comorbidities and abilities. .
--- NOTE | 2022-01-29 14:59 | P.PN ---
Subjective Progress Note Date: 01/28/22 61 yo M with past medical history of COPD, Diabetes Mellitus, Deep Vein Thrombosis, Hyperlipidemia, Hypertension, Sleep Apnea/CPAP/BIPAP He was in the hospital on 09/2021 for severe hypotension from decreased oral intake, acute metabolic encephalopathy, chronic congestive heart failure, diastolic with ejection fraction 55-60%, acute kidney injury, sinus tachycardia, status post cholecystectomy for his gangrenous cholecystitis, restless leg syndrome, BPH, chronic medical debility , he was long-term since June 2021. At that time was in the hospital for acute hypoxic respiratory failure of unknown causes. needed intubation then. He had complete opacification in the left hemithorax he had 2 bronchoscopy done which was negative for microbial growth. another admission on 09/2021. Patient was recently in the hospital from December 31 through January 21/2022 he came here because he wanted to get the PEG tube because he was not eating anything since June and he lost a lot of weight he used to weigh 333 pounds and now 193. He states that his main issue is no appetite, he denies choking bu t he has sometimes nausea that prevent him from eating. has unstageable pressure decubitus ulcer status post debridement, he has wound VAC in place. Patient was treated for hypertensive shock and required levo fed. Was placed on midodrine. Also acute metabolic encephalopathy. Was found to have a complex region around the liver. Liver with CT scans ruled out any abscess or hematoma. Patient getting eliquis for right leg DVT. Patient had had significant bleeding from Lovenox and eliquis was being resume outpatient. Patient had had significant drop in hemoglobin. Was transfused blood. Patient also was on Lasix. Also treated with TPN and lipids for protein calorie malnutrition. Althea ent initially refused PEG tube for a long time and he was placed on January 18. 2 feeding was started. Patient was reluctant to eat prior to discharge. Patient is awake, communicative. Patient was sent in for altered mental status. Was found to be hypoxic in the ER. Suggestive of CHF and fluid overload. Given IV Lasix. Over thousand cc overnight. Started on IV Zosyn. Patient has been getting 2 feeding at the [facility]. Ammonia was elevated. Patient somewhat lethargic. Not able to give any hi story. is here at night has gone home to sleep. Admitted with acute metabolic encephalopathy with delirium/acute hypoxic respiratory failure from CHF/aspiration pneumonia/hepatic encephalopathy/. Started on IV Zosyn, aspiration precautions, lactulose. IV Lasix. Objective - Vital Signs Vital signs: Vital Signs Temp 98.4 F 01/28/22 07:50 Pulse 111 H 01/28/22 07:50 Resp 17 01/28/22 07:50 BP 111/73 01/28/22 07:50 Pulse Ox 92 L 01/28/22 07:50 FiO2 30 01/27/22 06:00 Intake & Output 01/27/22 01/28/22 01/28/22 18:59 06:59 18:59 Intake Total 508.957 Output Total 916 1100 Balance -407.043 -1100 Weight 99.4 kg Intake: IV 160 Piperacillin-Tazobactam 3 160 .375 gm In Sodium Chloride 0.9% 100 ml @ 25 mls/hr IVPB Q8HR ERINN Rx# :[id number] Intake, IV Titration 68.957 Amount Norepinephrine 4 mg In 68.957 Sodium Chloride 0.9% 250 ml @ 0.05 MCG/KG/MIN 18. 146 mls/hr IV .Q14H ERINN Rx#:[id number] Tube Feeding 280 Output: Urine 916 1100 Other: Voiding Method Indwelling Catheter Indwelling Catheter Indwelling Catheter # Bowel Movements 2 1 - Exam GENERAL APPEARANCE: Laying in bed, awake, communicating HEENT: Normal external appearance of nose and ear. Oral cavity normal EYES: Pupils equal. Conjunctiva normal. NECK: JVD unable to assess. Mass not palpable. RESPIRATORY: Respiratory effort increased. Decreased breath sounds CARDIOVASCULAR: First and second sounds normal. Some edema. ABDOMEN: Soft. Liver and spleen not palpable. No tenderness. No mass palpable. PEG tube PSYCHIATRY: Answering questions appropriately, tired LYMPHATICS: No lymph nodes palpable neck and axilla Muscular skeletal: Stage IV pressure ulcer left buttock. - Labs CBC & Chem 7: 01/28/22 07:04 01/28/22 07:04 Labs: Abnormal Lab Results - Last 24 Hours (Table) 01/28/22 01/28/22 Range/Units 07:04 07:04 RBC 2.70 L (4.40-5.60) X 10*6/uL Hgb 7.7 L (13.0-17.0) g/dL Hct 25.6 L (39.6-50.0) % MCHC 30.1 L (32.0-37.0) g/dL RDW 21.0 H (11.5-14.5) % Plt Count 477 H (140-440) X 10*3/uL MPV 9.1 L (9.5-12.2) fL Absolute Nucleated RBC 0.04 H (0.00-0.00) X 10*3/uL Immature Gran # 0.10 H (0.00-0.04) X 10*3/uL Lymphocytes # 0.72 L (0.90-5.00) X 10*3/uL NRBC/100 WBC Diff 0.8 H (0.0-0.0) /100 WBCS Carbon Dioxide 36.4 H (20.0-27.5) mmol/L Glucose 126 H (70-110) mg/dL Calcium 8.1 L (8.7-10.3) mg/dL AST 52 H (14-35) U/L Alkaline Phosphatase 178 H (41-126) U/L Total Protein 4.7 L (6.2-8.2) g/dL Albumin 2.1 L (3.8-4.9) g/dL Albumin/Globulin Ratio 0.81 L (1.60-3.17) g/dL Microbiology - Last 24 Hours (Table) 01/24/22 19:35 Blood Culture Gram Stain - Final Blood Blood Culture - Final Coagulase Negative Staph 01/24/22 19:50 Blood Culture - Preliminary Blood No Growth after 72 hours Assessment and Plan Assessment: -Acute metabolic encephalopathy with delirium, likely a combination of hypoxia and pneumonia: Improved. -Acute hypoxic respiratory failure from CHF, aspiration pneumonia: Improved Continues on 2L nasal cannula, continues on IV lasix Q12, IV zosyn -Probable hepatic encephalopathy with somewhat elevated ammonia: Better Decrease Lactulose 10 g daily -Possible aspiration pneumonia IV Zosyn -Complex liver collection adjacent to gallbladder fossa 2.7 cm Repeat computed tomography scan not suggestive of abscess/hematoma . Not for any further intervention. This was worked up on last admission -Acute right leg DVT Eliquis -Hypokalemia secondary to diuresis Replace potassium per protocol -Unstageable chronic decubitus ulcer - wound VAC to continue. Consult wound care team, pending additional orders -Anemia of chronic diseases Monitor hemoglobin, repeat levels tomorrow -Hyperlipidemia -COPD DuoNeb 4 times a day -Acute on Chronic congestive heart failure with ejection fraction 55-60% IV Lasix 40 mg every 12. Strict I's and O's. -Restless leg syndrome -BPH Flomax . -Chronic medical debility Nonambulatory. Requires Regine lift. -Moderate protein calorie malnutrition from poor oral intake peg tube placed January 18. . PEG tube feeding to be coordinated by dietitian -Chronic hypotension Increase midodrine to 10 mg 3 times a day. Continue on Levophed monitor blood pressure closely DO NOT RESUSCITATE On 2 L nasal cannula with a pulse ox of 100%. Continues on IV lasix Q12 hours. Hold water through tube feeding. Enteral feeding to be advanced. Cut back dose of lactulose. Increase midodrine to 10 mg 3 times a day. Supplement potassium and recheck this afternoon. Replace per protocol. Plan to be downgraded from intensive care today. Discussed with patient.
[2022-01-29 17:04] LABS: Glucose,Whole Blood 155 mg/dL (70-110)
[2022-01-29] MEDS: GABAPENTIN 100 MG CAP PO SCH (22:18)
[2022-01-30 01:08] LABS: Glucose,Whole Blood 141 mg/dL (70-110)
[2022-01-30] MEDS: INSULIN ASPART (NovoLOG) 100 UNIT/ML VIAL SQ SCH ×4 (01:08→17:52)
[2022-01-30] MEDS: PIPERACILLIN-TAZOBACTAM 3.375 GM in SODIUM CHLORIDE 0.9% 100 ML IVPB SCH ×4 (01:09→23:23)
[2022-01-30 05:23] LABS: Glucose,Whole Blood 125 mg/dL (70-110)
[2022-01-30] MEDS: IPRATROPIUM-ALBUTEROL 3 ML NEB INHALATION SCH ×4 (07:26→19:55)
[2022-01-30] MEDS: FUROSEMIDE 10 MG/ML 4 ML VIAL IV SCH (07:31)
[2022-01-30] MEDS: TAMSULOSIN 0.4 MG CAP.ER.24H PO SCH (08:47)
[2022-01-30] MEDS: MIDODRINE 5 MG TAB PO SCH ×3 (08:47→16:50)
[2022-01-30] MEDS: CHOLECALCIFEROL 25 MCG (1000 IU) TABLET PO SCH (08:47)
[2022-01-30] MEDS: MULTIVITAMINS, THERA 1 EACH TAB PO SCH (08:47)
[2022-01-30] MEDS: FOLIC ACID 1 MG TAB PO SCH (08:47)
[2022-01-30] MEDS: METOPROLOL TARTRATE 12.5 MG TAB PO SCH ×3 (08:47→19:49)
[2022-01-30] MEDS: FAMOTIDINE 20 MG TAB PO SCH ×2 (08:47→16:50)
[2022-01-30] MEDS: ASCORBIC ACID 500 MG TAB PO SCH (08:48)
[2022-01-30] MEDS: APIXABAN 5 MG TAB PO SCH ×2 (08:48→19:49)
[2022-01-30] MEDS: LACTULOSE 20 GM/30 ML CUP PO SCH (10:16)
[2022-01-30 11:51] LABS: Glucose,Whole Blood 159 mg/dL (70-110)
--- NOTE | 2022-01-30 12:11 | P.PN ---
Subjective Progress Note Date: 01/30/22 61-year-old male patient with a complicated medical history, came in to the emergency department today after being discharged to a [facility] approximately 3 days ago. The patient was found to have altered mentation and he was found to be lethargic and was sent and was having more shortness of breath. I was told that the patient was discharged home on room air oxygen and he was not requiring any oxygen supplementation. The time of his arrival to the emergency department, the patient was having labored breathing and was tachypneic and he was given a chest x-ray that showed bilateral pleural effu sions which are essentially chronic. No reported aspiration. The PEG tube, however, I was also informed that was taken food orally. He was immediately placed on a BiPAP at a pressure of 16/8 cm of water and FiO2 of 65%. He was started on IV Lasix 40 mg every 8 hours. He has diuresed more than 2 L for now. He is already feeling better. His white cell count of 5.9 with hemoglobin 10.8 and a platelet count of 443. The patient's BUN of 50 with a 0.8 His Sodium Level of 134. Correlation Profile Was Essentially within Normal Limits. The Patient Also Had a Normal UA, Normal Urine Drug Screen, Albumin Level Is Improved and Is up to 2.4 with a total protein of 5.6. AST is 73, ALT 50, jonathan line phosphatase is at 229 and the patient has a lactic acid level of 0.9. Potassium level is at 8.4. Ammonia level is at 40. He is arousable. He is talking. He is profoundly weak in his legs and the patient has been drop bilaterally. He is moving his arms against gravity and his motor function is around 3-4 out of 5 and symmetrical in both upper extremities. A repeat computed tomography scan of the brain was done and was negative. Chest x-ray showed pulmonary vascular congestion and bilateral pleural effusion. On today's evaluation of 01/26/2022, the patient is awake and alert and the patient is following commands and answering questions appropriately. He is still profoundly weak. His breathing is nonlabored. He spent the night on BiPAP at a pressure of 16/8 cm of water and currently is on 4 L of Oxymizer nasal cannula. He remains on IV Lasix and the patient's fluid balance is been - 1.8 L over the past 24 hours. Chest x-ray is showing bilateral pleural effusions, essentially unchanged compared to yesterday. The patient is responding to diuresis. The patient was also methadone IV Zosyn. This was covering for aspiration. Blood culture one set sheet turner to be positive for gram-positive cocci and the patient will be given a dose of vancomycin. The patient is receiving Glucerna at the rate of 50 mL an hour. He is also on low- dose norepinephrine infusion running at 0.02 microvascular kilogram per minute. The white cell count is at 6.3 with a hemoglobin of 8.5 and a platelet count of 605 and his sodium is at 138, potassium level is at 3.6, BUN is at 19 with a creatinine of 0.9. Awaiting consultation by wound services. The patient will need a wound VAC to sacral stage IV On 01/27/2022, patient is being seen for a follow-up. The patient is awake and alert and he is doing extremely well. Overnight, the patient spent on a BiPAP at a pressure of 16/8 cm of water and currently is back on O2 at 2 L per minute nasal cannula. IV fluids are currently at KVO. The patient's overall fluid balance is -1.8 L over the past 24 hours and the patient is responding very nicely to diuretics with Lasix. The patient is also on Glucerna for enteral feeding and nutritional support at the rate of 70 mL an hour. The patient is currently off Precedex. The patient is currently off levo fed. The patient has a white cell count of 6.2 with a hemoglobin 8.5. Sodium is at 138, BUN is at 90 with a creatinine of 0.9. Albumin is up to 2.4. Awake and alert and following commands and answering questions. Awaiting still a wound services evaluation for wound VAC placement. Meanwhile, the possible culture was noted to not to be coagulase negative staph. The patient was given a dose of vancomycin which will be ultimately discontinued and the patient will be kept on IV Zosyn for now. He has no specific complaints otherwise for now. The patient is seen today 01/28/2022 in follow-up on the regular medical floor. He is currently awake and alert in no acute distress. He is resting comfortably in bed. Maintaining good O2 saturations in the 90s on 2 L/m per nasal cannula. He is afebrile. Hemodynamically stable. He did receive a left-sided PICC line placed yesterday. Follow-up blood cultures revealed no growth. White count 4.9. Hemoglobin 7.7. Platelets 477. Sodium 144. Potassium 3.6. BUN 16. Creatinine 1.0. Glucose 126. He remains on antibiotics in the form of Zosyn. Continued on IV diuretics. Anticoagulated with Eliquis. Currently in a -1.5 L balance. He is being nourished via tube feedings. Not taking anything orally. Wound VAC remains in place. 01/29/2022, the patient is essentially the same. He continued to receive anti biotics. He continues to receive Lasix 40 mg IV every 12 hours. He continues to be in a negative fluid balance of her other 2.7 L over the past 24 hours. His blood work is still pending for now. He remains on IV Zosyn. Wound VAC was added. No respiratory distress. He is not using his BiPAP and the patient is currently on 2 L O2 nasal cannula with a pulse ox of 99%. He is afebrile. He is hemodynamically stable. He did have a bowel movement. He is tolerating enteral feeding for nutritional support. 01/30/2022, patient remains essentially unchanged and the patient has no specific complaints. He remains on 2 L of O2 nasal cannula. He remains on IV Zosyn. Wound VAC is in place. He is receiving enteral feeding for nutritional support and his taken occasional pleasure feeding. Remains on IV Lasix and he needs follow-up. No altered mentation. he remains quite weak. we'll need rehabilitation. Objective - Vital Signs Vital signs: Vital Signs Temp 98.5 F 01/30/22 08:00 Pulse 88 01/30/22 11:18 Resp 16 01/30/22 08:00 BP 103/66 01/30/22 08:00 Pulse Ox 97 01/30/22 08:00 FiO2 30 01/27/22 06:00 Intake & Output 01/29/22 01/30/22 01/30/22 18:59 06:59 18:59 Intake Total 800 Output Total 1700 Balance 800 -1700 Weight 99.4 kg Intake: Tube Feeding 800 Output: Urine 1700 Other: Voiding Method Indwelling Catheter # Voids 1 # Bowel Movements 4 2 - Exam Gen. appearance: Pleasant 62-year-old male patient, on 2 L nasal cannula, the patient is awake and alert and is following simple commands. Head exam was generally normal. There was no scleral icterus or corneal arcus. Mucous membranes were moist. Neck was supple and without jugular venous distension, thyromegaly, or carotid bruits. Carotids were easily palpable bilaterally. There was no adenopathy. Lungs diminished breath sounds bilaterally along with dullness to percussion consistent with bilateral pleural effusions Heart sounds are distant positive sinus and there is no significant murmurs appreciated Abdominal exam revealed normal bowel sounds. The abdomen was soft, non-tender, and without masses, organomegaly, or appreciable enlargement of the abdominal aorta. Patient is also developed some bleeding from the skin at the site of Lovenox injections. There is areas of ecchymosis. No direct tenderness. No rebound tenderness. No guarding. Surgical wound site over the right upper quadrant at the site of the open cholecystectomy dry clean and intact. Bowel sounds are hypoactive at the present. No distention. No ascites. The patient has a PEG tube which is in the epigastric area and the dry areas dry clean and intact Extremities are quite adequate pulses bilaterally, no cyanosis. Neurologically the patient is following commands and answering questions. No focal neurological deficits. Profoundly weak, extensive edema in all 4 extremities mainly in the left upper extremity that needs to be further worked up. Skin Stage IV pressure ulcer left buttocks, stage II pressure ulcer left buttocks, stage II pressure ulcer right buttocks, diabetes with skin ulceration. Wound VAC in place to the stage IV left buttock ulcer. - Labs CBC & Chem 7: 01/28/22 07:04 01/28/22 07:04 Labs: Abnormal Lab Results - Last 24 Hours (Table) 01/29/22 01/30/22 01/30/22 Range/Units 17:01 01:07 05:22 POC Glucose (mg/dL) 155 H 141 H 125 H (70-110) mg/dL 01/30/22 Range/Units 11:50 POC Glucose (mg/dL) 159 H (70-110) mg/dL Microbiology - Last 24 Hours (Table) 01/24/22 19:50 Blood Culture - Preliminary Blood No Growth after 120 hours Assessment and Plan Plan: Acute mental status change, likely due to encephalopathy and hypoxemia and possibly hypercapnia , recovered, the patient is back to normal mentation Acute hypoxic respiratory failure, recovered and the patient is currently on 2 L oxygen nasal cannula and the patient is currently off BiPAP Failure to thrive and the patient was given a PEG tube for enteral feeding and is support, tolerating enteral feeding for nutritional support Acute hypotension, recovered. The patient recovered from his acute septic shock during his last admission. No clear indication for an abdominal abscess. The patient is currently off pressors in the blood cultures sheet turner to be c orrelated negative staph and the patient was given a dose of vancomycin which will be discontinued. Recent gangrenous cholecystitis with a right cholecystectomy, open. There is a collection in the gallbladder fossa which is most likely benign. Abdominal exam is benign and the patient is not having any abnormalities in liver function tests. 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 Hypoalbuminemia with a serum albumin of 2.5 History morbid obesity with ongoing weight loss Diabetes mellitus type 2 Bronchial asthma, chronic unspecified/COPD Diabetes mellitus type 2 Obstructive sleep apnea BPH Hypertension Hyperlipidemia Previous history of C. diff colitis, repeat stool for C. diff has been negative Generalized debility due to his medical condition and the patient has been [facility] resident following his surgery Anemia , chronic and Hb is curreently at 7.5 Plan This continued IV Lasix and put the patient oral Lasix 40 mg twice a day. Recheck blood work IV Zosyn Discontinue BiPAP currently on 2 L of O2 nasal cannula Obtain a pro-calcitonin level and the level came back at 0.34 Wound VAC Continue enteral feeding for nutritional support and the patient is currently on Glucerna. Continue anticoagulation with Eliquis DNR/DNI CODE STATUS Very poor baseline performance and functional status with extensive comorbidities and abilities. .
--- NOTE | 2022-01-30 14:16 | P.PN ---
Subjective Progress Note Date: 01/29/22 Principal diagnosis: Acute metabolic encephalopathy// Probable hepatic encephalopathy Possible aspiration pneumonia Acute right leg DVT Hypokalemia secondary to diuresis 61 yo M with past medical history of COPD, Diabetes Mellitus, Deep Vein Thrombosis, Hyperlipidemia, Hypertension, Sleep Apnea/CPAP/BIPAP He was in the hospital on 09/2021 for severe hypotension from decreased oral intake, acute metabolic encephalopathy, chronic congestive heart failure, diastolic with ejection fraction 55-60%, acute kidney injury, sinus tachycardia, status post cholecystectomy for his gangrenous cholecystitis, restless leg syndrome, BPH, chronic medical debility , he was halfway since June 2021. At that time was in the hospital for acute hypoxic respiratory failure of unknown causes. needed intubation then. He had complete opacification in the left hemithorax he had 2 bronchoscopy done which was negative for microbial growth. another admission on 09/2021. Patient was recently in the hospital from December 31 through January 21/2022 he came here because he wanted to get the PEG tube because he was not eating anything since June and he lost a lot of weight he used to weigh 333 pounds and now 193. He states that his main issue is no appetite, he denies choking but he has sometimes nausea that prevent him from eating. has unstageable press ure decubitus ulcer status post debridement, he has wound VAC in place. Patient was treated for hypertensive shock and required levo fed. Was placed on midodrine. Also acute metabolic encephalopathy. Was found to have a complex region around the liver. Liver with CT scans ruled out any abscess or hematoma. Patient getting eliquis for right leg DVT. Patient had had significant bleeding from Lovenox and eliquis was being resume outpatient. Patient had had significant drop in hemoglobin. Was transfused blood. Patient also was on Lasix. Also treated with TPN and lipids for protein calorie malnutrition. Patient initially refused PEG tube for a long time and he was placed on January 18. 2 feeding was started. Patient was reluctant to eat prior to discharge. Patient is awake, communicative. Patient was sent in for altered mental status. Was found to be hypoxic in the ER. Suggestive of CHF and fluid overload. Given IV Lasix. Over thousand cc overnight. Started on IV Zosyn. Patient has been getting 2 feeding at the [facility]. Ammonia was elevated. Patient somewhat lethargic. Not able to give any history. is here at night has gone home to sleep. Admitted with acute metabolic encephalopathy with delirium/acute hypoxic respiratory failure from CHF/aspiration pneumonia/hepatic encephalopathy/. Started on IV Zosyn, aspiration precautions, lactulose. IV Lasix. 01/29/2022 Patient is seen and evaluated in room at bedside; discussed with nursing staff; no specific complaints reported Vital signs are reviewed temperature 99.2, pulse 100, respirations 17 and blood pressure of 9353 Patient remains on IV diuretic therapy with Lasix 40 mg every 12 hours and reported to have lost 2.7 L in the last 24 hours; plan to continue with IV diuretic therapy for another 24 hours Wound VAC has been applied and remains in place; patient remains on IV ant ibiotics in form of Zosyn Objective - Vital Signs Vital signs: Vital Signs Temp 99.0 F 01/29/22 07:57 Pulse 100 01/29/22 12:36 Resp 17 01/29/22 07:57 BP 93/53 01/29/22 07:57 Pulse Ox 100 01/29/22 07:57 FiO2 30 01/27/22 06:00 Intake & Output 01/28/22 01/29/22 01/29/22 18:59 06:59 18:59 Output Total 1300 1450 Balance -1300 -1450 Weight 99.4 kg 99.4 kg Output: Urine 1300 1450 Other: Voiding Method Indwelling Catheter Indwelling Catheter # Bowel Movements 2 4 - Exam GENERAL APPEARANCE: Laying in bed, awake, communicating HEENT: Normal external appearance of nose and ear. Oral cavity normal EYES: Pupils equal. Conjunctiva normal. NECK: JVD unable to assess. Mass not palpable. RESPIRATORY: Respiratory effort increased. Decreased breath sounds CARDIOVASCULAR: First and second sounds normal. Some edema. ABDOMEN: Soft. Liver and spleen not palpable. No tenderness. No mass palpable. PEG tube PSYCHIATRY: Answering questions appropriately, tired LYMPHATICS: No lymph nodes palpable neck and axilla Muscular skeletal: Stage IV pressure ulcer left buttock. - Labs CBC & Chem 7: 01/28/22 07:04 01/28/22 07:04 Labs: Abnormal Lab Results - Last 24 Hours (Table) 01/29/22 01/29/22 01/29/22 Range/Units 00:04 05:28 11:36 POC Glucose (mg/dL) 141 H 125 H 137 H (70-110) mg/dL Microbiology - Last 24 Hours (Table) 01/24/22 19:50 Blood Culture - Preliminary Blood No Growth after 96 hours Assessment and Plan Assessment: -Acute metabolic encephalopathy with delirium, likely a combination of hypoxia and pneumonia: Improved. -Acute hypoxic respiratory failure from CHF, aspiration pneumonia: Improved Continues on 2L nasal cannula, continues on IV lasix Q12, IV zosyn -Probable hepatic encephalopathy with somewhat elevated ammonia: Better Decrease Lactulose 10 g daily -Possible aspiration pneumonia IV Zosyn -Complex liver collection adjacent to gallbladder fossa 2.7 cm Repeat computed tomography scan not suggestive of abscess/hematoma . Not for a ny further intervention. This was worked up on last admission -Acute right leg DVT Eliquis -Hypokalemia secondary to diuresis Replace potassium per protocol -Unstageable chronic decubitus ulcer - wound VAC to continue. Consult wound care team, pending additional orders -Anemia of chronic diseases Monitor hemoglobin, repeat levels tomorrow -Hyperlipidemia -COPD DuoNeb 4 times a day -Acute on Chronic congestive heart failure with ejection fraction 55-60% IV Lasix 40 mg every 12. Strict I's and O's. -Restless leg syndrome -BPH Flomax . -Chronic medical debility Nonambulatory. Requires Regine lift. -Moderate protein calorie malnutrition from poor oral intake peg tube placed January 18. . PEG tube feeding to be coordinated by dietitian -Chronic hypotension Increase midodrine to 10 mg 3 times a day. Continue on Levophed monitor blood pressure closely DO NOT RESUSCITATE On 2 L nasal cannula with a pulse ox of 100%. Continues on IV lasix Q12 hours. Hold water through tube feeding. Enteral feeding to be advanced. Cut back dose of lactulose. Increase midodrine to 10 mg 3 times a day. Supplement potassium and recheck this afternoon. Replace per protocol. Plan to be downgraded from intensive care today. Discussed with patient.
--- NOTE | 2022-01-30 14:18 | P.PN ---
Subjective Progress Note Date: 01/30/22 Principal diagnosis: Acute metabolic encephalopathy// Probable hepatic encephalopathy Possible aspiration pneumonia Acute right leg DVT Hypokalemia secondary to diuresis 61 yo M with past medical history of COPD, Diabetes Mellitus, Deep Vein Thrombosis, Hyperlipidemia, Hypertension, Sleep Apnea/CPAP/BIPAP He was in the hospital on 09/2021 for severe hypotension from decreased oral intake, acute metabolic encephalopathy, chronic congestive heart failure, diastolic with ejection fraction 55-60%, acute kidney injury, sinus tachycardia, status post cholecystectomy for his gangrenous cholecystitis, restless leg syndrome, BPH, chronic medical debility , he was [facility] since June 2021. At that time was in the hospital for acute hypoxic respiratory failure of unknown causes. needed intubation then. He had complete opacification in the left hemithorax he had 2 bronchoscopy done which was negative for microbial growth. another admission on 09/2021. Patient was recently in the hospital from December 31 through January 21/2022 he came here because he wanted to get the PEG tube because he was not eating anything since June and he lost a lot of weight he used to weigh 333 pounds and now 193. He states that his main issue is no appetite, he denies choking but he has sometimes nausea that prevent him from eating. has unstageable press ure decubitus ulcer status post debridement, he has wound VAC in place. Patient was treated for hypertensive shock and required levo fed. Was placed on midodrine. Also acute metabolic encephalopathy. Was found to have a complex region around the liver. Liver with CT scans ruled out any abscess or hematoma. Patient getting eliquis for right leg DVT. Patient had had significant bleeding from Lovenox and eliquis was being resume outpatient. Patient had had significant drop in hemoglobin. Was transfused blood. Patient also was on Lasix. Also treated with TPN and lipids for protein calorie malnutrition. Patient initially refused PEG tube for a long time and he was placed on January 18. 2 feeding was started. Patient was reluctant to eat prior to discharge. Patient is awake, communicative. Patient was sent in for altered mental status. Was found to be hypoxic in the ER. Suggestive of CHF and fluid overload. Given IV Lasix. Over thousand cc overnight. Started on IV Zosyn. Patient has been getting 2 feeding at the [facility]. Ammonia was elevated. Patient somewhat lethargic. Not able to give any history. is here at night has gone home to sleep. Admitted with acute metabolic encephalopathy with delirium/acute hypoxic respiratory failure from CHF/aspiration pneumonia/hepatic encephalopathy/. Started on IV Zosyn, aspiration precautions, lactulose. IV Lasix. 01/29/2022 Patient is seen and evaluated in room at bedside; discussed with nursing staff; no specific complaints reported Vital signs are reviewed temperature 99.2, pulse 100, respirations 17 and blood pressure of 9353 Patient remains on IV diuretic therapy with Lasix 40 mg every 12 hours and reported to have lost 2.7 L in the last 24 hours; plan to continue with IV diuretic therapy for another 24 hours Wound VAC has been applied and remains in place; patient remains on IV ant ibiotics in form of Zosyn 01/30/2022 Patient is seen and evaluated and discussed with nursing; no new complaints; patient remains on hold. 2 L per nasal cannula with O2 saturation greater than 97% Vital signs are stable temperature of 98.5, pulse 88, respirations 16 and blood pressure 103/66 Wound VAC remains in place without any complications; patient remains on IV anti biotics Continue with enteral feeding as ordered; patient continues to have a trace Pulmonary service on board and BiPAP has been discontinued; we will monitor CBC, CRP and pro-calcitonin Patient will need SNF versus ECF placement Objective - Vital Signs Vital signs: Vital Signs Temp 98.5 F 01/30/22 08:00 Pulse 88 01/30/22 11:18 Resp 16 01/30/22 08:00 BP 103/66 01/30/22 08:00 Pulse Ox 97 01/30/22 08:00 FiO2 30 01/27/22 06:00 Intake & Output 01/29/22 01/30/22 01/30/22 18:59 06:59 18:59 Intake Total 800 Output Total 1700 Balance 800 -1700 Weight 99.4 kg Intake: Tube Feeding 800 Output: Urine 1700 Other: Voiding Method Indwelling Catheter # Voids 1 # Bowel Movements 4 2 - Exam GENERAL APPEARANCE: Laying in bed, awake, communicating HEENT: Normal external appearance of nose and ear. Oral cavity normal EYES: Pupils equal. Conjunctiva normal. NECK: JVD unable to assess. Mass not palpable. RESPIRATORY: Respiratory effort increased. Decreased breath sounds CARDIOVASCULAR: First and second sounds normal. Some edema. ABDOMEN: Soft. Liver and spleen not palpable. No tenderness. No mass palpable. PEG tube PSYCHIATRY: Answering questions appropriately, tired LYMPHATICS: No lymph nodes palpable neck and axilla Muscular skeletal: Stage IV pressure ulcer left buttock. - Labs CBC & Chem 7: 01/28/22 07:04 01/28/22 07:04 Labs: Abnormal Lab Results - Last 24 Hours (Table) 01/29/22 01/30/22 01/30/22 Range/Units 17:01 01:07 05:22 POC Glucose (mg/dL) 155 H 141 H 125 H (70-110) mg/dL 01/30/22 Range/Units 11:50 POC Glucose (mg/dL) 159 H (70-110) mg/dL Microbiology - Last 24 Hours (Table) 01/24/22 19:50 Blood Culture - Preliminary Blood No Growth after 120 hours Assessment and Plan Assessment: -Acute metabolic encephalopathy with delirium, likely a combination of hypoxia and pneumonia: Improved. -Acute hypoxic respiratory failure from CHF, aspiration pneumonia: Improved Continues on 2L nasal cannula, continues on IV lasix Q12, IV zosyn -Probable hepatic encephalopathy with somewhat elevated ammonia: Better Decrease Lactulose 10 g daily -Possible aspiration pneumonia IV Zosyn -Complex liver collection adjacent to gallbladder fossa 2.7 cm Repeat computed tomography scan not suggestive of abscess/hematoma . Not for any further intervention. This was worked up on last admission -Acute right leg DVT Eliquis -Hypokalemia secondary to diuresis Replace potassium per protocol -Unstageable chronic decubitus ulcer - wound VAC to continue. Consult wound care team, pending additional orders -Anemia of chronic diseases Monitor hemoglobin, repeat levels tomorrow -Hyperlipidemia -COPD DuoNeb 4 times a day -Acute on Chronic congestive heart failure with ejection fraction 55-60% IV Lasix 40 mg every 12. Strict I's and O's. -Restless leg syndrome -BPH Flomax . -Chronic medical debility Nonambulatory. Requires Regine lift. -Moderate protein calorie malnutrition from poor oral intake peg tube placed January 18. . PEG tube feeding to be coordinated by dietitian -Chronic hypotension Increase midodrine to 10 mg 3 times a day. Continue on Levophed monitor blood pressure closely DO NOT RESUSCITATE On 2 L nasal cannula with a pulse ox of 100%. Continues on IV lasix Q12 hours. H old water through tube feeding. Enteral feeding to be advanced. Cut back dose of lactulose. Increase midodrine to 10 mg 3 times a day. Supplement potassium and recheck this afternoon. Replace per protocol. Plan to be downgraded from intensive care today. Discussed with patient.
[2022-01-30 15:59] LABS: ALT 33 U/L (4-49); AST 48 U/L (17-59); African American GFR (CKD) >90 (>60 ml/min/1.73 sqM); Albumin 2.2 g/dL (3.5-5.0); Albumin/Globulin Ratio 0.8; Alkaline Phosphatase 215 U/L (38-126); Blood Urea Nitrogen 25 mg/dL (9-20); Calcium 7.8 mg/dL (8.4-10.2); Chloride 89 mmol/L (98-107); Globulin 2.7 g/dL; Glucose 88 mg/dL (74-99); Non-African American GFR(CKD) 81 (>60 ml/min/1.73 sqM); Potassium 3.6 mmol/L (3.5-5.1); Sodium 135 mmol/L (137-145); Total Bilirubin 0.3 mg/dL (0.2-1.3); Total Protein 4.9 g/dL (6.3-8.2)
[2022-01-30 16:06] LABS: Anion Gap 4 mmol/L
[2022-01-30 16:16] LABS: Carbon Dioxide 42 mmol/L (22-30)
[2022-01-30 16:21] LABS: Anisocytosis Slight; Basophils # (A) 0.1 k/uL (0-0.2); Basophils % (A) 1 %; Eosinophils # (A) 0.3 k/uL (0-0.7); Eosinophils % (A) 5 %; HCT 25.5 % (39.0-53.0); HGB 7.8 gm/dL (13.0-17.5); Hypochromasia Moderate; Lymphocytes # (A) 0.9 k/uL (1.0-4.8); Lymphocytes % (A) 16 %; MCH 29.3 pg (25.0-35.0); MCHC 30.7 g/dL (31.0-37.0); MCV 95.6 fL (80.0-100.0); Macrocytosis Slight; Mean Platelet Volume 7.5; Monocytes # (A) 0.3 k/uL (0-1.0); Monocytes % (A) 6 %; Neutrophils # (A) 3.8 k/uL (1.3-7.7); Neutrophils % (A) 70 %; Platelet Count 408 k/uL (150-450); RBC 2.66 m/uL (4.30-5.90); RDW 19.5 % (11.5-15.5); WBC 5.5 k/uL (3.8-10.6)
[2022-01-30] MEDS: FUROSEMIDE 40 MG TAB PO SCH (16:50)
[2022-01-30 17:40] LABS: Glucose,Whole Blood 138 mg/dL (70-110)
[2022-01-30] MEDS: GABAPENTIN 100 MG CAP PO SCH (19:49)
[2022-01-30 23:58] LABS: Glucose,Whole Blood 163 mg/dL (70-110)
[2022-01-31] MEDS: INSULIN ASPART (NovoLOG) 100 UNIT/ML VIAL SQ SCH ×3 (00:05→12:15)
[2022-01-31 06:01] LABS: Glucose,Whole Blood 134 mg/dL (70-110)
[2022-01-31] MEDS: IPRATROPIUM-ALBUTEROL 3 ML NEB INHALATION SCH ×4 (08:29→20:35)
[2022-01-31] MEDS: FAMOTIDINE 20 MG TAB PO SCH ×2 (08:48→16:38)
[2022-01-31] MEDS: TAMSULOSIN 0.4 MG CAP.ER.24H PO SCH (08:48)
[2022-01-31] MEDS: METOPROLOL TARTRATE 12.5 MG TAB PO SCH ×2 (08:48→16:39)
[2022-01-31] MEDS: FUROSEMIDE 40 MG TAB PO SCH ×2 (08:48→16:38)
[2022-01-31] MEDS: APIXABAN 5 MG TAB PO SCH (08:48)
[2022-01-31] MEDS: ASCORBIC ACID 500 MG TAB PO SCH (08:48)
[2022-01-31] MEDS: FOLIC ACID 1 MG TAB PO SCH (08:48)
[2022-01-31] MEDS: MIDODRINE 5 MG TAB PO SCH ×3 (08:48→16:38)
[2022-01-31] MEDS: CHOLECALCIFEROL 25 MCG (1000 IU) TABLET PO SCH (08:48)
[2022-01-31] MEDS: MULTIVITAMINS, THERA 1 EACH TAB PO SCH (08:48)
[2022-01-31] MEDS: LACTULOSE 20 GM/30 ML CUP PO SCH (08:49)
[2022-01-31] MEDS: PIPERACILLIN-TAZOBACTAM 3.375 GM in SODIUM CHLORIDE 0.9% 100 ML IVPB SCH ×2 (08:49→16:39)
[2022-01-31 10:19] LABS: Anisocytosis Slight; Basophils # (A) 0.1 k/uL (0-0.2); Basophils % (A) 1 %; Eosinophils # (A) 0.4 k/uL (0-0.7); Eosinophils % (A) 7 %; HCT 25.6 % (39.0-53.0); HGB 7.7 gm/dL (13.0-17.5); Hypochromasia Marked; Lymphocytes # (A) 0.8 k/uL (1.0-4.8); Lymphocytes % (A) 14 %; MCH 28.7 pg (25.0-35.0); MCHC 30.1 g/dL (31.0-37.0); MCV 95.5 fL (80.0-100.0); Macrocytosis Slight; Mean Platelet Volume 7.2; Monocytes # (A) 0.4 k/uL (0-1.0); Monocytes % (A) 6 %; Neutrophils # (A) 4.3 k/uL (1.3-7.7); Neutrophils % (A) 71 %; Platelet Count 404 k/uL (150-450); RBC 2.68 m/uL (4.30-5.90); RDW 19.2 % (11.5-15.5)
[2022-01-31 10:34] LABS: African American GFR (CKD) >90 (>60 ml/min/1.73 sqM); Anion Gap 1 mmol/L; Blood Urea Nitrogen 25 mg/dL (9-20); Calcium 7.7 mg/dL (8.4-10.2); Carbon Dioxide 40 mmol/L (22-30); Chloride 93 mmol/L (98-107); Glucose 164 mg/dL (74-99); Non-African American GFR(CKD) >90 (>60 ml/min/1.73 sqM); Potassium 3.7 mmol/L (3.5-5.1); Sodium 134 mmol/L (137-145)
[2022-01-31 11:27] LABS: Glucose,Whole Blood 193 mg/dL (70-110)
--- NOTE | 2022-01-31 12:34 | P.PN ---
Subjective Progress Note Date: 01/31/22 Principal diagnosis: Shortness of breath, altered mental status 61-year-old male patient with a complicated medical history, came in to the emergency department today after being discharged to a [facility] approximately 3 days ago. The patient was found to have altered mentation and he was found to be lethargic and was sent and was having more shortness of breath. I was told that the patient was discharged home on room air oxygen and he was not requiring any oxygen supplementation. The time of his arrival to the emergency department, the patient was having labored breathing and was tachypneic and he was given a chest x-ray that showed bilateral pleural effusions which are essentially chronic. No reported aspiration. The PEG tube, however, I was also informed that was taken food orally. He was immediately placed on a BiPAP at a pressure of 16/8 cm of water and FiO2 of 65%. He was started on IV Lasix 40 mg every 8 hours. He has diuresed more than 2 L for now. He is already feeling better. His white cell count of 5.9 with hemoglobin 10.8 and a platelet count of 443. The patient's BUN of 50 with a 0.8 His Sodium Level of 134. Correlation Profile Was Essentially within Normal Limits. The Patient Also Had a Normal UA, Normal Urine Drug Screen, Albumin Level Is Improved and Is up to 2.4 with a total protein of 5.6. AST is 73, ALT 50, alkaline phosphatase is at 229 and the patient has a lactic acid level of 0.9. Potassium level is at 8.4. Ammonia level is at 40. He is arousable. He is talking. He is profoundly weak in his legs and the patient has been drop bilaterally. He is moving his arms against gravity and his motor function is around 3-4 out of 5 and symmetrical in both upper extremities. A repeat computed tomography scan of the brain was done and was negative. Chest x-ray showed pulmonary vascular congestion and bilateral pleural effusion. On today's evaluation of 01/26/2022, the patient is awake and alert and the patient is following commands and answering questions appropriately. He is still profoundly weak. His breathing is nonlabored. He spent the night on BiPAP at a pressure of 16/8 cm of water and currently is on 4 L of Oxymizer nasal cannula. He remains on IV Lasix and the patient's fluid balance is been - 1.8 L over the past 24 hours. Chest x-ray is showing bilateral pleural effusions, essentially unchanged compared to yesterday. The patient is responding to diuresis. The patient was also methadone IV Zosyn. This was covering for aspiration. Blood culture one set return agent to be positive for gram -positive cocci and the patient will be given a dose of vancomycin. The patient is receiving Glucerna at the rate of 50 mL an hour. He is also on low-dose norepinephrine infusion running at 0.02 microvascular kilogram per minute. The white cell count is at 6.3 with a hemoglobin of 8.5 and a platelet count of 605 and his sodium is at 138, potassium level is at 3.6, BUN is at 19 with a creatinine of 0.9. Awaiting consultation by wound services. The patient will need a wound VAC to sacral stage IV On 01/27/2022, patient is being seen for a follow-up. The patient is awake and alert and he is doing extremely well. Overnight, the patient spent on a BiPAP at a pressure of 16/8 cm of water and currently is back on O2 at 2 L per minute nasal cannula. IV fluids are currently at KVO. The patient's overall fluid balance is -1.8 L over the past 24 hours and the patient is responding very n icely to diuretics with Lasix. The patient is also on Glucerna for enteral feeding and nutritional support at the rate of 70 mL an hour. The patient is currently off Precedex. The patient is currently off levo fed. The patient has a white cell count of 6.2 with a hemoglobin 8.5. Sodium is at 138, BUN is at 90 with a creatinine of 0.9. Albumin is up to 2.4. Awake and alert and following commands and answering questions. Awaiting still a wound services evaluation for wound VAC placement. Meanwhile, the possible culture was noted to not to be coagulase negative staph. The patient was given a dose of vancomycin which will be ultimately discontinued and the patient will be kept on IV Zosyn for now. He has no specific complaints otherwise for now. The patient is seen today 01/28/2022 in follow-up on the regular medical floor. He is currently awake and alert in no acute distress. He is resting comfortably in bed. Maintaining good O2 saturations in the 90s on 2 L/m per nasal cannula. He is afebrile. Hemodynamically stable. He did receive a left-sided PICC line placed yesterday. Follow-up blood cultures revealed no growth. White count 4.9. Hemoglobin 7.7. Platelets 477. Sodium 144. Potassium 3.6. BUN 16. Creatinine 1.0. Glucose 126. He remains on antibiotics in the form of Zosyn. Continued on IV diuretics. Anticoagulated with Eliquis. Currently in a -1.5 L balance. He is being nourished via tube feedings. Not taking anything orally. Wound VAC remains in place. 01/29/2022, the patient is essentially the same. He continued to receive antibiotics. He continues to receive Lasix 40 mg IV every 12 hours. He continues to be in a negative fluid balance of her other 2.7 L over the past 24 hours. His blood work is still pending for now. He remains on IV Zosyn. Wound VAC was added. No respiratory distress. He is not using his BiPAP and the erasto ent is currently on 2 L O2 nasal cannula with a pulse ox of 99%. He is afebrile. He is hemodynamically stable. He did have a bowel movement. He is tolerating enteral feeding for nutritional support. 01/30/2022, patient remains essentially unchanged and the patient has no specific complaints. He remains on 2 L of O2 nasal cannula. He remains on IV Zosyn. Wound VAC is in place. He is receiving enteral feeding for nutritional support and his taken occasional pleasure feeding. Remains on IV Lasix and he needs follow-up. No altered mentation. he remains quite weak. we'll need rehabilitation. On 01/31/2022 patient seen in follow-up on medical surgical floor. He is awake and alert, he is answering questions appropriately, he seems more upbeat today, he is breathing comfortably's on 2 L of oxygen with a pulse ox of 94%. Denies any worsening dyspnea or cough, no chest pain. He is receiving tube feedings, he has a wound VAC in place on his sacral wound. His vitals have been stable. His been afebrile. His last chest x-ray from 01/27/2022 showed no pleural effusion, no focal consolidation or pneumothorax. His labs have been reviewed his white blood cell count is 6.0, hemoglobin is 7.7, sodium is 134, potassium is 3.7, chloride is 93, CO2 is 40, B1 is 25 creatinine 0.91. Patient continues on Lasix 40 mg twice daily, he is in -1100 mL net fluid balance over the last 24 hours. He continues on nebulized bronchodilators and empiric antibiotics. Objective - Vital Signs Vital signs: Vital Signs Temp 98.2 F 01/31/22 06:49 Pulse 98 01/31/22 12:26 Resp 17 01/31/22 06:49 BP 125/79 01/31/22 06:49 Pulse Ox 94 L 01/31/22 08:29 FiO2 30 01/27/22 06:00 Intake & Output 01/30/22 01/31/22 01/31/22 18:59 06:59 18:59 Intake Total 590 Output Total 450 1250 500 Balance -450 -660 -500 Weight 106.594 kg Intake: Oral 590 Output: Urine 450 1250 500 Other: Voiding Method Indwelling Catheter Indwelling Catheter # Bowel Movements 4 - Exam GENERAL EXAM: Alert, pleasant, 62-year-old white male, resting comfortably in a specialty bed, 2 L of oxygen with pulse ox of 94% comfortable in no apparent d istress. HEAD: Normocephalic/atraumatic. EYES: Normal reaction of pupils, equal size. Conjunctiva pink, sclera white. NOSE: Clear with pink turbinates. THROAT: No erythema or exudates. NECK: No masses, no JVD, no thyroid enlargement, no adenopathy. CHEST: No chest wall deformity. Symmetrical expansion. LUNGS: Equal air entry with no crackles, wheeze, rhonchi or dullness. CVS: Regular rate and rhythm, normal S1 and S2, no gallops, no murmurs, no rubs ABDOMEN: Soft, nontender. No hepatosplenomegaly, normal bowel sounds, no guarding or rigidity. PEG tube is in place with tube feedings infusing EXTREMITIES: No clubbing, no edema, no cyanosis, 2+ pulses and upper and lower extremities. Patient has bilateral foot drop MUSCULOSKELETAL: Muscle strength and tone normal. SPINE: No scoliosis or deformity SKIN: No rashes, patient has wound VAC in place on his sacral decub stage IV, and stage III on his bilateral buttocks CENTRAL NERVOUS SYSTEM: Alert and oriented -3. No focal deficits, tone is normal in all 4 extremities. PSYCHIATRIC: Alert and oriented -3. Appropriate affect. Intact judgment and insight. - Labs CBC & Chem 7: 01/31/22 09:55 01/31/22 09:55 Labs: Abnormal Lab Results - Last 24 Hours (Table) 01/30/22 01/30/22 01/30/22 Range/Units 15:13 15:13 17:38 RBC 2.66 L (4.30-5.90) m/uL Hgb 7.8 L (13.0-17.5) gm/dL Hct 25.5 L (39.0-53.0) % MCHC 30.7 L (31.0-37.0) g/dL RDW 19.5 H (11.5-15.5) % Lymphocytes # 0.9 L (1.0-4.8) k/uL Sodium 135 L (137-145) mmol/L Chloride 89 L (98-107) mmol/L Carbon Dioxide 42 H* (22-30) mmol/L BUN 25 H (9-20) mg/dL Glucose (74-99) mg/dL POC Glucose (mg/dL) 138 H (70-110) mg/dL Calcium 7.8 L (8.4-10.2) mg/dL Alkaline Phosphatase 215 H (38-126) U/L Total Protein 4.9 L (6.3-8.2) g/dL Albumin 2.2 L (3.5-5.0) g/dL 01/30/22 01/31/22 01/31/22 Range/Units 23:57 06:00 09:55 RBC 2.68 L (4.30-5.90) m/uL Hgb 7.7 L (13.0-17.5) gm/dL Hct 25.6 L (39.0-53.0) % MCHC 30.1 L (31.0-37.0) g/dL RDW 19.2 H (11.5-15.5) % Lymphocytes # 0.8 L (1.0-4.8) k/uL Sodium (137-145) mmol/L Chloride (98-107) mmol/L Carbon Dioxide (22-30) mmol/L BUN (9-20) mg/dL Glucose (74-99) mg/dL POC Glucose (mg/dL) 163 H 134 H (70-110) mg/dL Calcium (8.4-10.2) mg/dL Alkaline Phosphatase (38-126) U/L Total Protein (6.3-8.2) g/dL Albumin (3.5-5.0) g/dL 01/31/22 01/31/22 Range/Units 09:55 11:25 RBC (4.30-5.90) m/uL Hgb (13.0-17.5) gm/dL Hct (39.0-53.0) % MCHC (31.0-37.0) g/dL RDW (11.5-15.5) % Lymphocytes # (1.0-4.8) k/uL Sodium 134 L (137-145) mmol/L Chloride 93 L (98-107) mmol/L Carbon Dioxide 40 H (22-30) mmol/L BUN 25 H (9-20) mg/dL Glucose 164 H (74-99) mg/dL POC Glucose (mg/dL) 193 H (70-110) mg/dL Calcium 7.7 L (8.4-10.2) mg/dL Alkaline Phosphatase (38-126) U/L Total Protein (6.3-8.2) g/dL Albumin (3.5-5.0) g/dL Microbiology - Last 24 Hours (Table) 01/24/22 19:50 Blood Culture - Final Blood No Growth after 144 hours Assessment and Plan Plan: Assessment: Acute mental status change, likely due to encephalopathy and hypoxemia and possibly hypercapnia , recovered, the patient is back to normal mentation Acute hypoxic respiratory failure, recovered and the patient is currently on 2 L oxygen nasal cannula and the patient is currently off BiPAP Failure to thrive and the patient was given a PEG tube for enteral feeding and is support, tolerating enteral feeding for nutritional support Acute hypotension, recovered. The patient recovered from his acute septic shock during his last admission. No clear indication for an abdominal abscess. The patient is currently off pressors in the blood cultures return agent to be correlated negative staph and the patient was given a dose of vancomycin which will be discontinued. Recent gangrenous cholecystitis with a right cholecystectomy, open. There is a collection in the gallbladder fossa which is most likely benign. Abdominal exam is benign and the patient is not having any abnormalities in liver function tests. 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 Hypoalbuminemia with a serum albumin of 2.5 History morbid obesity with ongoing weight loss Diabetes mellitus type 2 Bronchial asthma, chronic unspecified/COPD Diabetes mellitus type 2 Obstructive sleep apnea BPH Hypertension Hyperlipidemia Previous history of C. diff colitis, repeat stool for C. diff has been negative Generalized debility due to his medical condition and the patient has been [facility] resident following his surgery Anemia , chronic and Hb is curreently at 7.7 Plan: Continue current medical treatment Patient is stable from pulmonary perspective Continue oral diuretics and antibiotics Vital signs have been stable No acute events From pulmonary perspective patient could be considered for transfer back to [facility] I have personally seen and examined the patient, performed the documentation and the assessment and plan as written. Number of minutes spent on the visit: [10] Time with Patient: Less than 30
[2022-01-31] MEDS ORDERED: Potassium Replacement Protocol 1 EACH MISC MISCELLANE PRN (15:48)
[2022-01-31] MEDS ORDERED: POTASSIUM BICARBONATE/CIT AC 20 MEQ TABLET.EFF NG-TUBE ONE (15:49)
--- NOTE | 2022-01-31 15:52 | P.DS ---
Providers Date of admission: 01/24/22 22:59 Attending physician: Ryan Nelson Consults: 01/24/22 22:59 Consult Physician Routine Consulting Provider: Florencio Ulloa Consult Reason/Comments: Altered mental status Do you want consulting provider notified?: Yes, Notify in am 01/25/22 06:19 Consult Physician Routine Consulting Provider: Asia Stewart Consult Reason/Comments: [facility] Do you want consulting provider notified?: Yes Consult Physician Routine Consulting Provider: Beltran Cordova Consult Reason/Comments: icu,hypoxia Do you want consulting provider notified?: Yes Primary care physician: [facility] Course: Diagnosis Acute metabolic encephalopathy with delirium likely combination of hypoxia and pneumonia Acute hypoxic x-ray failure with CHF aspiration pneumonia which is improved Probable hepatic encephalopathy was somewhat elevated ammonia Possible aspiration pneumonia Complex liver collection adjacent to gallbladder fossa 2.7 cm with recent computed tomography scan not suggestive of abscess/hematoma with no further intervention recommended Acute right leg DVT Hypokalemia secondary to diuresis Unstageable chronic decubitus ulcer with wound VAC Anemia of chronic disease Hyperlipidemia COPD Acute on chronic congestive heart failure with EF 55-60% Restless leg syndrome BPH Chronic medical debility nonambulatory and requires verónica left Moderate protein calorie malnutrition from poor oral intake continue on PEG tube Chronic hypotension admitted during DO NOT RESUSCITATE Discharge disposition Patient is stable for discharge back to his ECF in guarded condition. Continue on nasal cannula as needed 2L. Patient has finished antibiotic therapy with IV Zosyn for a total of 7 days will discharge on 3 days of oral augmentin. Repeat labs in 2 to 3 days. Continue with Peg Tub feedings patient is receiving glucerna 1.2 at 90 ms/hr. Patient to also continue with chronic IDC. Fecal management system to be discontinued, patient will discharge on questran packets, C.Dif negative. Patient does have left sided PICC in place. Hospital course This is a 61-year-old male with medical history significant for COPD, diabetes mellitus, DVT, hyperlipidemia, hypertension, sleep apnea with CPAP use. Patient was recently in the hospital in September 2021 for severe hypotension from decreased oral intake, acute metabolic encephalopathy, chronic CHF with diastolic dysfunction and EF 55-60%, acute kidney injury, sinus tachycardia, he is also status post cholecystectomy for his gangrenous cholecystitis, restless leg syndrome and BPH with medical chronic debility. [facility] also [facility] where he was seen in the Hospital that time for acute hypoxic respiratory failure unknown causes. Patient required intubation then and had 2 bronchoscopies done for complete Mike vacation left hemithorax that were negative for microbial growth. Patient was recently hospital from December 31 through 01/21/2022 and received a PEG tube due to significant weight loss and poor oral intake. This admission patient presents from the prison reporting altered mental status and was found to be hypoxic in the ER which is suggestive of CHF fluid overload and was given IV Lasix. He was initially treated in the ICU requiring pressor support. Midodrine has been increased and he was able to transfer to the medical floor. Patient had diuresed well BNP was 8000 on admission repeat is now down to 4000. Patient also received IV Zosyn empirically. tube feedings were continued. His ammonia level was also found to be elevated on admission he was somewhat lethargic which improved with lactulose and his ammonia levels are less than 9. Patient does also have chronic decubitus ulcer which is unstageable as a wound VAC in place to his sacrum. He was also receiving Santyl outpatient for additional decubitus ulcers which will need to be reevaluated with outpatient wound care. She had continuous episodes of diarrhea and C. diff was checked which is negative 2. Patient had a fecal management system inserted which can be removed prior to discharge. He will be sent on questran. 01/31/2022 Patient is evaluated today with family at the bedside. He has been cleared by pulmonary services for transfer back to the [facility]. He is alert and oriented 3. His main concern is discomfort from the fecal management system. Per nursing his bowel movements have slowed down. He is C. diff negative. Fecal management system can be removed. He'll continue with his chronic IDC. Labs today showing a white count of 6.0, hemoglobin 7.7, platelet count 44, sodium 134, potassium 3.7, CO2 40, BUN 25, creatinine 0.91, blood glucose in the 160s, calcium 7.7. Blood pressure 97/65, heart rate 68, afebrile, 95% 2L nasal cannula. Patient reports no acute events overnight, overall he is feeling better and would like to be discharge today. He has been on lactulose daily and possible contributing to diarrhea. Will change lactulose to PRN and consider resuming if patient experiences an increase in confusion. His ammonia level today has normalized, it was found to be elevated on admission. Review of Systems Constitutional: Denied any fatigue denied any fever. Cardio vascular: denied any chest pain, palpitations Gastrointestinal: denied any nausea, vomiting, reports diarrhea. No abdominal pain. Pulmonary: Denied any shortness of breath cough Neurologic denied any new focal deficits All inpatient medications were reviewed and appropriate changes in these medications as dictated in the interval history and assessment and plan. PHYSICAL EXAMINATION: GENERAL: The patient is alert and oriented x3, not in any acute distress. Well developed, well nourished. HEENT: Pupils are round and equally reacting to light. EOMI. No scleral icterus. No conjunctival pallor. Normocephalic, atraumatic. No pharyngeal erythema. No thyromegaly. CARDIOVASCULAR: S1 and S2 present. No murmurs, rubs, or gallops. PULMONARY: Chest is clear to auscultation, no wheezing or crackles. ABDOMEN: Soft, nontender, nondistended, normoactive bowel sounds. No palpable organomegaly. Peg Tube present. MUSCULOSKELETAL: No joint swelling or deformity. EXTREMITIES: No cyanosis, clubbing, or pedal edema. Mild pedal edema, with foot drop chronic. NEUROLOGICAL: Gross neurological examination did not reveal any focal deficits. SKIN: No rashes. Please see medication reconciliation for list of current medications. Thank you for allowing us participate in the care of this patient. Total time taken in discharge planning greater than 35 minutes The impression and plan of care has been dictated by Emilia Rosenbaum, Nurse Practitioner as directed. Dr. Elizabeth MD I have performed a history and physical examination and medical decision making of this patient, discussed the same with the dictator, and agree with the dictators assessment and plan as written, documented as a scribe. Based on total visit time, I have performed more than 50% of this visit. Patient Condition at Discharge: Fair Plan - Discharge Summary Discharge Rx Participant: No New Discharge Prescriptions: New Apixaban [Eliquis] 5 mg PO BID tab Furosemide [Lasix] 40 mg PO BID@0900,1600 tab INSULIN ASPART (NovoLOG) [NovoLOG (formulary)] 0 unit SQ Q6H each Midodrine [ProAmatine] 10 mg PO AC-TID tab Lactulose [Cephulac] 10 gm PO DAILY PRN ml Cholestyramine (with Sugar) [Questran] 4 gm PO BID 5 Days #10 packet Continue rOPINIRole HCL [Requip] 1 mg PO HS Tamsulosin [Flomax] 0.4 mg PO DAILY Multivitamins, Thera [Multivitamin (formulary)] 1 tab PO DAILY Ascorbic Acid [Vitamin C] 500 mg PO DAILY Albuterol Sulfate [Ventolin HFA] 2 puff INHALATION Q2H PRN PRN Reason: AIRWAY PATENCY Acetaminophen [Acetaminophen ER] 650 mg PO Q6H PRN PRN Reason: Pain Metoprolol Tartrate [Lopressor] 12.5 mg PO TID #1 tab Gabapentin [Neurontin] 100 mg PO HS #3 cap Ipratropium-Albuterol Nebulize [Duoneb 0.5 mg-3 mg/3 ml Soln] 3 ml INHALATION RT-QID ml Cholecalciferol [Vitamin D3 (25 Mcg = 1000 Iu)] 25 mcg PO DAILY Promethazine HCl 12.5 mg PO Q12H PRN PRN Reason: Nausea Famotidine [Pepcid] 20 mg PO BID@0800,1600 Folic Acid 0.8 mg PO DAILY Discontinued Midodrine [ProAmatine] 5 mg PO AC-TID tab Furosemide [Lasix] 40 mg PO DAILY #1 tablet Discharge Medication List Tamsulosin [Flomax] 0.4 mg PO DAILY 08/23/18 [History] rOPINIRole HCL [Requip] 1 mg PO HS 08/23/18 [History] Ipratropium-Albuterol Nebulize [Duoneb 0.5 mg-3 mg/3 ml Soln] 3 ml INHALATION RT-QID ml 07/16/21 [Rx] Ascorbic Acid [Vitamin C] 500 mg PO DAILY 09/09/21 [History] Cholecalciferol [Vitamin D3 (25 Mcg = 1000 Iu)] 25 mcg PO DAILY 09/09/21 [History] Multivitamins, Thera [Multivitamin (formulary)] 1 tab PO DAILY 09/09/21 [History] Acetaminophen [Acetaminophen ER] 650 mg PO Q6H PRN 12/31/21 [History] Albuterol Sulfate [Ventolin HFA] 2 puff INHALATION Q2H PRN 12/31/21 [History] Famotidine [Pepcid] 20 mg PO BID@0800,1600 12/31/21 [History] Promethazine HCl 12.5 mg PO Q12H PRN 12/31/21 [History] Metoprolol Tartrate [Lopressor] 12.5 mg PO TID #1 tab 01/21/22 [Rx] Folic Acid 0.8 mg PO DAILY 01/24/22 [History] Apixaban [Eliquis] 5 mg PO BID tab 01/31/22 [Rx] Cholestyramine (with Sugar) [Questran] 4 gm PO BID 5 Days #10 packet 01/31/22 [Rx] Furosemide [Lasix] 40 mg PO BID@0900,1600 tab 01/31/22 [Rx] Gabapentin [Neurontin] 100 mg PO HS #3 cap 01/31/22 [Rx] INSULIN ASPART (NovoLOG) [NovoLOG (formulary)] 0 unit SQ Q6H each 01/31/22 [Rx] Lactulose [Cephulac] 10 gm PO DAILY PRN ml 01/31/22 [Rx] Midodrine [ProAmatine] 10 mg PO AC-TID tab 01/31/22 [Rx] Follow up Appointment(s)/Referral(s): Fredo Magana MD [STAFF PHYSICIAN] - As Needed Ian Reddy DO [Primary Care Provider] - 1-2 days Kevin Ulloa DO [Doctor of Osteopathic Medicine] - As Needed [facility] Latasha Fox, [NON-STAFF] - As Needed Ambulatory/Diagnostic Orders: Basic Metabolic Panel [LAB.AMB] Time Frame: 2 Days, Location: None Selected Activity/Diet/Wound Care/Special Instructions: Patient will need to have wound vac removed and reapplied at ECF with their equipment Discharge Disposition: TRANSFER TO SNF/ECF
[2022-01-31 16:50] LABS: Glucose,Whole Blood 168 mg/dL (70-110)
--- NOTE | 2022-01-31 17:54 | XR ---
EXAMINATION TYPE: XR chest 1V portable DATE OF EXAM: 01/31/2022 5:31 PM COMPARISON: Chest radiographs from 01/27/2022 TECHNIQUE: XR chest 1V portable Frontal view of the chest. CLINICAL INDICATION:Male, 62 years old with history of follow up; FINDINGS: Lungs/Pleura: There is no evidence of pleural effusion, focal consolidation, or pneumothorax. Pulmonary vascularity: Unremarkable. Heart/mediastinum: Cardiomediastinal silhouette is unremarkable. Musculoskeletal: No acute osseous pathology. Lines/Tubes: Left-sided PICC with distal tip at the subclavian vein. IMPRESSION: 1. No acute cardiopulmonary disease/process. 2. Left sided PICC with tip near the proximal portion of the subclavian vein on the left.
[2022-01-31 19:58] VITALS: BP 106/64; PULSE 73; RESP 20; TEMP 98.6
== END 2022-01-31 22:02 | DRG 177 ==
LOC: EC 19:31 → 3SCARD 22:59 → 2SICU 01-25 07:12 → 4SSUR 01-27 17:30
PROVIDERS: ADMIT Hospitalist; ATTEND Hospitalist
PROC: 2W05X6Z Change Pressure Dressing on Back (ICD-10-PCS; principal; 2022-01-25)
PROC: 5A09457 Assistance with Respiratory Ventilation, 24-96 Consecutive Hours, Continuous Positive Airway Pressure (ICD-10-PCS; principal; 2022-01-25)
PROC: 3E053XZ Introduction of Vasopressor into Peripheral Artery, Percutaneous Approach (ICD-10-PCS; 2022-01-26)
PROC: 3E0G76Z Introduction of Nutritional Substance into Upper GI, Via Natural or Artificial Opening (ICD-10-PCS; 2022-01-27)
PROC: 02HV33Z Insertion of Infusion Device into Superior Vena Cava, Percutaneous Approach (ICD-10-PCS; 2022-01-27)
DX: J69.0 Pneumonitis due to inhalation of food and vomit (principal); G93.41 Metabolic encephalopathy; L89.324 Pressure ulcer of left buttock, stage 4; L89.153 Pressure ulcer of sacral region, stage 3; L89.313 Pressure ulcer of right buttock, stage 3; I50.33 Acute on chronic diastolic (congestive) heart failure; J96.01 Acute respiratory failure with hypoxia; N39.0 Urinary tract infection, site not specified; R64 Cachexia; E44.0 Moderate protein-calorie malnutrition; I82.401 Acute embolism and thrombosis of unspecified deep veins of right lower extremity; J44.0 Chronic obstructive pulmonary disease with (acute) lower respiratory infection; E72.20 Disorder of urea cycle metabolism, unspecified; I11.0 Hypertensive heart disease with heart failure; E11.40 Type 2 diabetes mellitus with diabetic neuropathy, unspecified; J44.9 Chronic obstructive pulmonary disease, unspecified; Z66 Do not resuscitate; K72.90 Hepatic failure, unspecified without coma; E66.9 Obesity, unspecified; Z68.31 Body mass index [BMI] 31.0-31.9, adult; G25.81 Restless legs syndrome; D63.8 Anemia in other chronic diseases classified elsewhere; E11.622 Type 2 diabetes mellitus with other skin ulcer; K76.89 Other specified diseases of liver; I95.89 Other hypotension; R62.7 Adult failure to thrive; Z86.16 Personal history of COVID-19; G72.9 Myopathy, unspecified; Z71.3 Dietary counseling and surveillance; E88.09 Other disorders of plasma-protein metabolism, not elsewhere classified; E78.5 Hyperlipidemia, unspecified; G47.33 Obstructive sleep apnea (adult) (pediatric); K42.9 Umbilical hernia without obstruction or gangrene; F40.240 Claustrophobia; M21.372 Foot drop, left foot; M21.371 Foot drop, right foot; R53.81 Other malaise; N40.0 Benign prostatic hyperplasia without lower urinary tract symptoms; R63.0 Anorexia; Z93.1 Gastrostomy status; E87.6 Hypokalemia; T50.2X5A Adverse effect of carbonic-anhydrase inhibitors, benzothiadiazides and other diuretics, initial encounter; Z74.09 Other reduced mobility; H70.13 Chronic mastoiditis, bilateral; Z86.19 Personal history of other infectious and parasitic diseases; Z92.89 Personal history of other medical treatment; Z79.01 Long term (current) use of anticoagulants; Z79.899 Other long term (current) drug therapy; Z86.718 Personal history of other venous thrombosis and embolism; Z87.01 Personal history of pneumonia (recurrent); Z87.891 Personal history of nicotine dependence; Z80.8 Family history of malignant neoplasm of other organs or systems; Z82.49 Family history of ischemic heart disease and other diseases of the circulatory system
CPT/HCPCS: 36415; 36573; 70450; 71045; 80048; 80053; 80306; 81001; 82140; 83605; 83735; 83880; 84100; 84145; 84484; 85025; 85610; 85730; 87040; 93005; 94640; 94660; 94760; 96361; 96374; 96375; 96376; 99285

== ENCOUNTER → 2023-02-10 | Outpatient (CLI) | payer OTHER ==
--- NOTE | 2023-02-10 18:14 | CA ---
Transthoracic Echo Report Name: Zenon Marquez Age: 63 Gender: M : 1960 Exam Date: 02/10/2023 14:51 Exam Location: [place] [facility] Ht (in): 68 Wt (lb): 267 Ordering Physician: Ian Reddy DO Attending/Referring Phys: Ian Reddy DO Tobacco Checkout Clerk Nora Salgado [facility] Procedure CPT: Indications: I50.22 CHRONIC SYSTOLIC (CONGESTIVE) HEART FAILURE Cardiac Hx: Technical Quality: Technically difficult study Contrast 1: Lumason Total Dose (mL): 5 Contrast 2: Total Dose (mL): MEASUREMENTS (Male / Female) Normal Values 2D ECHO LV Diastolic Diameter PLAX 5.1 cm 4.2 - 5.9 / 3.9 - 5.3 cm LV Systolic Diameter PLAX 3.1 cm IVS Diastolic Thickness 0.9 cm 0.6 - 1.0 / 0.6 - 0.9 cm LVPW Diastolic Thickness 1.2 cm 0.6 - 1.0 / 0.6 - 0.9 cm LV Relative Wall Thickness 0.4 RV Internal Dim ED PLAX 3.9 cm Ascending Aorta Diameter 3.4 cm M-MODE Aortic Root Diameter MM 3.1 cm LA Systolic Diameter MM 4.2 cm LA Ao Ratio MM 1.4 AV Cusp Separation MM 2.0 cm DOPPLER AV Peak Velocity 132.5 cm/s AV Peak Gradient 7.0 mmHg AV Mean Velocity 88.2 cm/s AV Mean Gradient 3.5 mmHg AV Velocity Time Integral 23.8 cm LVOT Peak Velocity 115.5 cm/s LVOT Peak Gradient 5.3 mmHg LVOT Velocity Time Integral 23.4 cm Mitral E Point Velocity 69.6 cm/s Mitral A Point Velocity 87.0 cm/s Mitral E to A Ratio 0.8 MV Deceleration Time 175.5 ms LV E' Lateral Velocity 9.5 cm/s Mitral E to LV E' Lateral Ratio 7.4 LV E' Septal Velocity 8.9 cm/s Mitral E to LV E' Septal Ratio 7.8 TR Peak Velocity 340.9 cm/s TR Peak Gradient 46.5 mmHg Right Atrial Pressure 8.0 mmHg Pulmonary Artery Systolic Pressu 54.5 mmHg Right Ventricular Systolic Press 54.5 mmHg FINDINGS Left Ventricle Mildly increased left ventricular wall thickness. Left ventricular cavity size normal. No obvious regional wall motion abnormalities. Left ventricular ejection fraction is estimated at 55-60%. Right Ventricle Right ventricle not well visualized but appears moderately dilated. Moderate pulmonary hypertension. Right Atrium Right atrium not well visualized. Left Atrium Mild left atrial dilatation. Mitral Valve Structurally normal mitral valve. Aortic Valve Trileaflet aortic valve. No aortic regurgitation.aortic valve sclerosis. Tricuspid Valve Tricuspid valve not well visualized. Mild tricuspid regurgitation. Pulmonic Valve Pulmonic valve not well visualized. Pericardium No pericardial effusion. Aorta Normal size aortic root and proximal ascending aorta. CONCLUSIONS Technically difficult study. Lumason ECHO contrast used for improved visualization of the endocardial borders (inadequate visualization of two or more contiguous segments). 1. Normal left ventricular size and systolic function 2. Limited Doppler study with mild tricuspid regurgitation and moderate pulmonary hypertension Previewed by: Dr. Asia Stewart MD (Electronically Signed) Final Date: 10 February 2023 18:13
== END | disposition home or self-care (01) ==
LOC: RADECHMAIN 14:44
PROVIDERS: ATTEND Family Medicine
DX: I07.1 Rheumatic tricuspid insufficiency (principal); I50.22 Chronic systolic (congestive) heart failure; I27.20 Pulmonary hypertension, unspecified
CPT/HCPCS: 93306; Q9950

== ENCOUNTER → 2024-03-25 | Outpatient (CLI) | payer OTHER ==
[2024-03-25 08:48] LABS: African American GFR (CKD) 71 (>60 ml/min/1.73 sqM); Blood Urea Nitrogen 30 mg/dL (9-20); Non-African American GFR(CKD) 61 (>60 ml/min/1.73 sqM)
--- NOTE | 2024-03-25 12:08 | CT ---
CTA CHEST EXAMINATION TYPE: CT angio chest DATE OF EXAM: 03/25/2024 INDICATION: SOB, DIANA, hx COPD, HTN CT DLP: 897.10 mGycm, Automated exposure control for dose reduction was used. CONTRAST: Patient injected with 100 mL of Isovue 370. COMPARISON: 06/26/2021 TECHNIQUE: CT of the chest is performed on a spiral scan at 2 mm thick sections. Study is performed with intravenous contrast timed for evaluation for pulmonary embolism. This will limit additional po rtions of the evaluation. 3-D MIP images reconstructed by the technologist are reviewed on the compu ter in the coronal and sagittal planes. FINDINGS: Some faint incomplete filling defects are right upper lobe pulmonary arteries appear to be present. T his could be chronic pulmonary emboli. Couple of small left lower lobe pulmonary emboli may also be p resent. Correlate with patient's symptoms. No right heart strain is identified. No mediastinal or hilar adenopathy enlarged by CT criteria is evident. The ascending aorta diameter at the level of the main pulmonary artery is 3.9 cm. The main pulmonary artery diameter at the bifurcation is 3.0 cm. There is a 0.5 cm nodule in the posterior right sulcus. Previous pleural effusion and consolidation m ay have obscured this finding previously. Limited CT sections were through the upper abdomen. Upper abdomen appears unremarkable. IMPRESSION: 1. Incomplete obstruction with several bilateral artery defects right upper and lower lobes and left lower lobe suggestive for chronic pulmonary emboli. Correlate with symptoms. [facility], , 03/25/2024 12:06 PM
== END | disposition home or self-care (01) ==
LOC: RADCTMAIN 07:51
PROVIDERS: ATTEND Internal Medicine Critical Care Medicine
DX: R06.02 Shortness of breath
CPT/HCPCS: 36415; 71275; 82565; 84520

== ENCOUNTER → 2024-04-18 | Outpatient (CLI) | payer OTHER ==
--- NOTE | 2024-04-18 17:02 | US ---
EXAMINATION TYPE: US venous doppler duplex LE BI DATE OF EXAM: 04/18/2024 4:29 PM COMPARISON: NONE CLINICAL INDICATION: Male, 64 years old with history of I82.409 ACUTE EMBOLISM AND THOMBOS; On blood thinners. Pain at ankles TECHNIQUE: The lower extremity deep venous system is examined utilizing real time linear array sonog maria c with graded compression, color doppler sonography, and spectral doppler. SIDE PERFORMED: Bilateral FINDINGS: VESSELS IMAGED: Common Femoral Vein Deep Femoral Vein Greater Saphenous Vein * Femoral Vein Popliteal Vein Small Saphenous Vein * Proximal Calf Veins (* superficial vessels) Suboptimal due to patient body habitus Right Leg: Negative for DVT Left Leg: Negative for DVT Grayscale, color doppler, spectral doppler imaging performed of the deep veins of the lower extremiti es. IMPRESSION: No ultrasound evidence for deep venous thrombosis of either lower extremity. [facility], , 04/18/2024 4:59 PM
== END | disposition home or self-care (01) ==
LOC: RADUSWWP 16:01
PROVIDERS: ATTEND Internal Medicine Critical Care Medicine
DX: I82.409 Acute embolism and thrombosis of unspecified deep veins of unspecified lower extremity
CPT/HCPCS: 93970

== ENCOUNTER 2024-05-31 08:41 | Day surgery (SDC) | payer OTHER ==
[2024-05-31] MEDS: IV FLUID CONTINUATION 1,000 ML IV ONE (09:24)
[2024-05-31 09:35] VITALS: TEMP 97.7
[2024-05-31] MEDS: LACTATED RINGERS 1,000 ML IV SCH (09:38)
[2024-05-31 09:40] LABS: Glucose,Whole Blood 162 mg/dL (70-110)
[2024-05-31] MEDS ORDERED: PROPOFOL 10 MG/ML 20 ML VIAL IV ONE (09:43)
[2024-05-31] MEDS ORDERED: LIDOCAINE 1% INJ 10MG/ML (20 ML MDV) ONE (09:43)
--- NOTE | 2024-05-31 10:02 | P.PCN ---
Date of Procedure: 05/31/24 Procedure(s) Performed: BRIEF HISTORY: Patient is a 64-year-old pleasant white male scheduled for an elective colonoscopy as a part of evaluation by history of colon polyps manage last colonoscopy was 8 years ago. PROCEDURE PERFORMED: Colonoscopy. PREOPERATIVE DIAGNOSIS: History of colon polyps. IV sedation per Anesthesia. PROCEDURE: After informed consent was obtained, the patient, was brought into the endoscopy unit. IV sedation was administered by Anesthesia under continuous monitoring. Digital rectal examination was normal. Initially the Olympus CF-160 flexible video colonoscope was then inserted in the rectum, gradually advanced into the cecum without any difficulty. Careful examination was performed as the scope was gradually being withdrawn. Ileocecal valve and the appendiceal orifice were visualized and appeared normal. Prep was poor in some areas of the colon. Irrigation was performed.. Mucosa of the cecum, ascending colon, transverse colon, descending colon, sigmoid colon, and rectum appeared normal. Retroflexion was performed in the rectum and no lesions were seen. The patient tolerated the procedure well. IMPRESSION: Normal-appearing colon from rectum to cecum with evidence of colorectal neoplasia. RECOMMENDATIONS: Findings of this examination were discussed with the patient as well as his family. He was advised to have repeat screening colonoscopy in 5 years because of somewhat poor prep that was noted on today's examination..
[2024-05-31 10:09] VITALS: PULSE 77
[2024-05-31 10:21] VITALS: BP 129/81; RESP 18
== END 2024-05-31 10:39 | disposition home or self-care (01) ==
LOC: ORWHC2ENDO 08:41
PROVIDERS: ATTEND Internal Medicine Gastroenterology
DX: I10 Essential (primary) hypertension (principal); E78.5 Hyperlipidemia, unspecified; J45.909 Unspecified asthma, uncomplicated; G47.33 Obstructive sleep apnea (adult) (pediatric); E11.9 Type 2 diabetes mellitus without complications; M54.50 Low back pain, unspecified; N42.9 Disorder of prostate, unspecified; E66.01 Morbid (severe) obesity due to excess calories; Z68.31 Body mass index [BMI] 31.0-31.9, adult; Z86.0100 Personal history of colon polyps, unspecified; Z99.81 Dependence on supplemental oxygen; Z79.51 Long term (current) use of inhaled steroids; Z79.01 Long term (current) use of anticoagulants; Z79.899 Other long term (current) drug therapy
CPT/HCPCS: 45378; J2003; J2704

== ENCOUNTER → 2024-12-18 | Outpatient (CLI) | payer OTHER ==
[2024-12-18 13:08] LABS: Creatinine,Urine Random 49.8 mg/dL; Protein/Creatinine Ratio,Urine 0.281
[2024-12-18 16:09] LABS: HCT 45.4 % (39.6-50.0); HGB 14.8 g/dL (13.0-17.0); MCH 28.1 pg (27.0-32.0); MCHC 32.6 g/dL (32.0-37.0); MCV 86.3 FL (80.0-97.0); Mean Platelet Volume 8.9 FL (9.5-12.2); NRBC Per 100 WBC 0 X 10*3/uL (0.00-0.01); Platelet Count 233 X 10*3/uL (140-440); RBC 5.26 X 10*6/uL (4.40-5.60); RDW 13.3 % (11.5-14.5)
[2024-12-18 16:43] LABS: Appearance,Urine Clear (Clear); Bilirubin,Urine Negative (Negative); Blood,Urine Negative (Negative); Color,Urine Yellow (Yellow); Ketones,Urine Negative (Negative); Nitrite,Urine Negative (Negative); Specific Gravity,Urine 1.009 (1.001-1.030); Urobilinogen,Urine 0.2 E.U./DL
[2024-12-18 16:51] LABS: ALT 36 U/L (10-49); AST 37 U/L (14-35); Albumin/Globulin Ratio 1.43 Ratio (1.60-3.17); Alkaline Phosphatase 74 U/L (41-126); Blood Urea Nitrogen 19.2 mg/dL (9.0-27.0); Calcium 8.9 mg/dL (8.7-10.3); Carbon Dioxide 23.2 mmol/L (21.6-31.8); Chloride 101 mmol/L (96-109); Globulin 2.8 g/dL (1.6-3.3); Glucose 130 mg/dL (70-110); LDL Cholesterol,Calculated 84.5 mg/dL (0.0-131.0); Potassium 4.3 mmol/L (3.5-5.5); Prostate Specific Antigen 0.78 ng/mL (0.000-4.500); Sodium 138 mmol/L (135-145); Total Bilirubin 0.5 mg/dL (0.3-1.2); Total Protein 6.8 g/dL (6.2-8.2)
== END | disposition home or self-care (01) ==
LOC: LABWHC1 12:20
PROVIDERS: ATTEND Family Medicine
DX: Z00.00 Encounter for general adult medical examination without abnormal findings (principal); E11.40 Type 2 diabetes mellitus with diabetic neuropathy, unspecified; E11.42 Type 2 diabetes mellitus with diabetic polyneuropathy
CPT/HCPCS: 36415; 80053; 80061; 81003; 82043; 82306; 82570; 83036; 84153; 84156; 84443; 85027